=== PATIENT | male | born 1965 | race Caucasian/White ===

== ENCOUNTER → 2018-01-19 | Outpatient (CLI) | payer MEDICARE ==
[~2018-01-19] VITALS: Ht 167.6 cm; Wt 80.7 kg
[~2018-01-19] MED LIST: ACET325T38 PO; ACETAMINOPHEN 325 MG TABLET/CAPLET (TYLENOL) PO PRN; BACL10TA; BUPR150T7 PO; CELE-63 PO; CLON1TAB3 PO; CYAN500T2 PO; GABA-490 PO; IBUP-30 PO; IRON DEXTRAN IM ONE; IRON DEXTRAN INJECTION 975 MG in NS (IVPB) 250 ML IM ONE; LEVO200T6 PO; LIOT5TAB3 PO; MELO-195 PO; METH4TAB10; METH5TAB PO; METH750T3 PO; MINO50CA2 PO; MORP-34 PO; MORP15TA PO; MORP15TA8 PO; MORP30TA; MULT-228 PO; NS IM ONE; OXYM15TA7; SERT100T PO; TIAG4TAB PO; TIZA4TAB55 PO; TRAZ-144 PO; TRAZ-28 PO; [UNRECOGNIZED DRUG - OTHER] IM ONE; diphenhydrAMINE 50 MG/ML INJ (BENADRYL) IV PRN; methylPREDNISolone 125 MG (Solu-MEDROL) VIAL IV PRN
[2018-01-19 13:40] VITALS: BP 120/86
[2018-01-19 15:15] VITALS: BP 120/86
== END ==
LOC: SDC 12:30 → EDSTATUS 12:39
PROVIDERS: ATTEND Family Medicine
DX: D50.9 Iron deficiency anemia, unspecified (principal)
CPT/HCPCS: 96365

== ENCOUNTER → 2018-02-22 | Outpatient (CLI) | payer MEDICARE ==
[~2018-02-22] MED LIST changes: -ACETAMINOPHEN 325 MG TABLET/CAPLET (TYLENOL) PO PRN; -IRON DEXTRAN IM ONE; -IRON DEXTRAN INJECTION 975 MG in NS (IVPB) 250 ML IM ONE; -NS IM ONE; -[UNRECOGNIZED DRUG - OTHER] IM ONE; -diphenhydrAMINE 50 MG/ML INJ (BENADRYL) IV PRN; -methylPREDNISolone 125 MG (Solu-MEDROL) VIAL IV PRN
--- NOTE | 2018-02-22 09:06 | Diagnostic Imaging Report ---
INDICATION: Elevated liver enzymes. FINDINGS: The liver is normal in size at 17 cm. There is homogeneous echotexture. No discrete liver mass is identified. The gallbladder is surgically absent. No definite biliary duct dilatation is seen. The pancreas is obscured. Right kidney is unremarkable. There is no ascites. IMPRESSION: Status post cholecystectomy. No significant abnormality is detected. Dictated by: Dictated on workstation # [id number]
[2018-02-23 07:40] LABS: HEPATITIS C ANTIBODY C Non-Reactive (Non-Reactive)
== END ==
LOC: RAD 07:52
PROVIDERS: ATTEND Nurse Practitioner Family
DX: R94.5 Abnormal results of liver function studies (principal); Z90.49 Acquired absence of other specified parts of digestive tract; F10.11 Alcohol abuse, in remission
CPT/HCPCS: 36415; 76705; 80074

== ENCOUNTER 2018-03-31 20:11 | Emergency (ER) | payer MEDICARE ==
[~2018-03-31] VITALS: Ht 167.6 cm; Wt 98.4 kg
[2018-03-31] MEDS ORDERED: TIZA4TAB3 (20:49)
[2018-03-31] MEDS ORDERED: LEVO100T7 (20:49)
[2018-03-31] MEDS ORDERED: MIRT15TA6 (20:49)
[2018-03-31] MEDS ORDERED: DICL75TA2 (20:49)
[2018-03-31] MEDS ORDERED: OXYM5TAB (20:49)
[2018-03-31] MEDS ORDERED: LEVO88TA54 (20:49)
[2018-03-31] MEDS ORDERED: PANT40TA3 (20:49)
[2018-03-31] MEDS ORDERED: LACTATED RINGERS 1,000 ML IV ONE (21:10)
[2018-03-31] MEDS ORDERED: PANTOPRAZOLE 40 MG/10 ML (PROTONIX) VIAL IV ONE (21:15)
[2018-03-31] MEDS ORDERED: ONDANSETRON 4 MG/2 ML (SDV) Z0FRAN IVP ONE (21:15)
[2018-03-31 21:44] LABS: BASOPHILS % (AUTO) 1 % (0-10); EOSINOPHILS # (AUTO) 0.1 10^3/uL (0.0-0.3); EOSINOPHILS % (AUTO) 1 % (0-10); HEMATOCRIT 41 % (40-54); HEMOGLOBIN 14.6 G/DL (13.3-17.7); LYMPHOCYTES # (AUTO) 1.6 X 10^3 (1.0-4.0); LYMPHOCYTES % (AUTO) 27 % (12-44); MEAN CORPUSCULAR HEMOGLOBIN 29 PG (25-34); MEAN CORPUSCULAR HGB CONC 36 G/DL (32-36); MEAN CORPUSCULAR VOLUME 80 FL (80-99); MEAN PLATELET VOLUME 8.5 FL (7.4-10.4); MONOCYTES # (AUTO) 1.2 X 10^3 (0.0-1.0); MONOCYTES % (AUTO) 20 % (0-12); NEUTROPHILS # (AUTO) 3.1 X 10^3 (1.8-7.8); NEUTROPHILS % (AUTO) 52 % (42-75); PLATELET COUNT 352 10^3/uL (130-400); RED BLOOD COUNT 5.11 10^6/uL (4.35-5.85); RED CELL DISTRIBUTION WIDTH 15.2 % (10.0-14.5)
[2018-03-31 22:02] LABS: BAND NEUTROPHILS 10 %; BASOPHILS % (MANUAL) 1 %; EOSINOPHILS % (MANUAL) 0 %; LYMPHOCYTES % (MANUAL) 26 %; MONOCYTES % (MANUAL) 17 %; NEUTROPHILS % (MANUAL) 46 %; RBC MORPH NORMAL
[2018-03-31 22:07] LABS: ALANINE AMINOTRANSFERASE 19 U/L (0-55); ALBUMIN 4.3 GM/DL (3.2-4.5); ALKALINE PHOSPHATASE 76 U/L (40-136); AMYLASE 65 U/L (25-125); BILIRUBIN,TOTAL 0.3 MG/DL (0.1-1.0); BUN/CREATININE RATIO 8; CALCIUM 9.1 MG/DL (8.5-10.1); CARBON DIOXIDE 18 MMOL/L (21-32); CHLORIDE 105 MMOL/L (98-107); CREATININE SERUM 1.07 MG/DL (0.60-1.30); GFR ESTIMATED > 60; GLUCOSE 97 MG/DL (70-105); LIPASE 30 U/L (8-78); MAGNESIUM 2.1 MG/DL (1.8-2.4); POTASSIUM 3.5 MMOL/L (3.6-5.0); SODIUM 137 MMOL/L (135-145); TOTAL PROTEIN 7.5 GM/DL (6.4-8.2)
[2018-03-31 22:22] LABS: BILIRUBIN,URINE NEGATIVE (NEGATIVE); CLARITY,URINE CLEAR; COLOR,URINE YELLOW; GLUCOSE, URINE (UA) NEGATIVE (NEGATIVE); KETONES,URINE 2+ (NEGATIVE); LEUKOCYTE ESTERASE ,URINE NEGATIVE (NEGATIVE); NITRITE,URINE NEGATIVE (NEGATIVE); PH,URINE 6 (5-9); PROTEIN,URINE 1+ (NEGATIVE); UROBILINOGEN,URINE NORMAL (NORMAL)
[2018-03-31 22:29] LABS: BACTERIA,URINE NEGATIVE /HPF; SQUAMOUS EPITHELIAL CELL,UR 0-2 /HPF; WBC,URINE RARE /HPF
[2018-03-31 22:30] VITALS: BP 109/71
[2018-04-01] MEDS ORDERED: LACT1CAP8 PO (00:17)
--- NOTE | 2018-04-01 00:17 | ED GI ---
General Chief Complaint: Abdominal/GI Problems Stated Complaint: N/V/D WITH FEVER Nursing Triage Note: bloody stools Sepsis Screen: No Definite Risk Source of Information: Patient, Spouse Exam Limitations: No Limitations History of Present Illness Date Seen by Provider: March 31, 2018 Time Seen by Provider: 20:55 Initial Comments PT ARRIVES VIA POV C/O DIARRHEA X 1 WEEK HAS HAD OVER 12 STOOLS TODAY, UNSURE HOW MANY, BUT HAS HAD AT LEAST 6 STOOLS IN THE LAST HOUR STATES THE FIRST FEW DAYS HIS STOOLS WERE BLACK AND TARRY, THEN TURNED GREEN AND NOW ARE BROWN LIQUID HAD FEVER UP TO 102.7 ON MONDAY AND MONDAY, NONE SINCE THEN NO ABDOMINAL PAIN, BUT HAS HAD ALOT OF ACID REFLUX--MOSTLY IN THE MORNINGS. NO ACTUAL VOMITING THINKS HE HAS HAD DECREASED URINE OUTPUT, BUT STATES HE THINKS HE URINATES EVERY TIME HE HAS A BM, AND HAS VOIDED SEPARATELY WITHOUT BM AT LEAST 5 TIMES TODAY. HAD DECREASED APPETITE DURING THE WEEK BUT TODAY HAS EATEN ALOT MORE--ATE A BURRITO, BEANS, RICE, AND HAS DRANK AT LEAST 2 LITERS OF POP, PLUS COFFEE AND TEA NO KNOWN SICK CONTACTS OR SUSPICIOUS FOODS SEEN AT DR. GREENE'S OFFICE BY GAS METER INSTALLER HELPER ON 03/28 AND WAS GIVEN RX FOR CARAFATE AND PROTONIX. PCP: DR. GREENE Allergies and Home Medications Allergies Coded Allergies: Penicillins (Unverified Allergy, Severe, RECEIVED CEPHLASPORINS, 07/24/15) reaction as a child, not sure was told likely could from [facility] Home Medications Bupropion HCl 150 Mg Tab.er.24h, 150 MG PO DAILY, (Reported) Cyanocobalamin (Vitamin B-12) 500 Mcg Tablet, 500 MCG PO DAILY, (Reported) Ibuprofen 200 Mg Tablet, 1,000 MG PO DAILY, (Reported) TAKES 5 (200MG) TABLETS DAILY Lactobacillus Acidophilus 1 Each Capsule, 2 EACH PO QID Prescribed by: ERNESTINE VILCHIS on 04/01/18 0017 Liothyronine Sodium 5 Mcg Tablet, 5 MCG PO DAILY, (Reported) Multivitamin 1 Each Tab.chew, 3 TAB.CHEW PO DAILY, (Reported) Trazodone HCl 50 Mg Tablet, 50 MG PO HS, (Reported) Patient Home Medication List Home Medication List Reviewed: Yes Review of Systems Constitutional: see HPI; No dizziness; fever; No malaise, No weakness; weight gain (SIGNIFICANT WEIGHT GAIN IN THE LAST 12 MONTHS) EENTM: Other (CHRONIC DRY MOUTH) Respiratory: No Symptoms Reported Cardiovascular: No Symptoms Reported Gastrointestinal: See HPI, Diarrhea, Nausea, Poor Appetite, Poor Fluid Intake; Denies Rectal Bleeding, Denies Vomiting Genitourinary: See HPI Musculoskeletal: back pain (CHRONIC) Skin: no symptoms reported Psychiatric/Neurological: No Symptoms Reported Endocrine: No Symptoms Reported Hematologic/Lymphatic: No Symptoms Reported Past Stzflpv-Mhhxaf-Ctnxbu Hx Patient Social History Alcohol Use: Denies Use Recreational Drug Use: Yes (THC) Drug of Choice: cannibus Smoking Status: Current Everyday Smoker Type Used: Cigarettes, Smokeless Tobacco 2nd Hand Smoke Exposure: No Recent Foreign Travel: No Contact w/Someone Who Travel: No Recent Infectious Disease Expo: No Recent Hopitalizations: No Immunizations Up To Date Tetanus Booster (TDap): Less than 5yrs Seasonal Allergies Seasonal Allergies: No Past Medical History Surgeries: Yes (GASTRIC BYPASS, 2 LUMBAR SURGERIES; RIGHT HIP FX/ ORIF; COLONOSCOPY 09/2014) Abdominal, Gallbladder, Orthopedic Respiratory: No Cardiac: No Neurological: No Reproductive Disorders: No Genitourinary: No Gastrointestinal: Yes ( HAD NORMAL COLONOSCOPY 09/[address] HORNE--HIS ONLY COLONOSCOPY; GASTRIC BYPASS) Gastroesophageal Reflux Musculoskeletal: Yes ("MY HIPS ARE BAD." CHRONIC GENERALIZED PAIN--NARCOTIC DEPENDENT; RIGHT HIP FX/ORIF ) Arthritis, Chronic Back Pain, Fractures Endocrine: Yes Hypothyroidsim HEENT: Yes (EDENTULOUS) Cancer: No Psychosocial: Yes Sleep Difficulties, Anxiety, Depression Integumentary: No Blood Disorders: Yes (ANEMIA) Family Medical History Colon cancer 19 FATHER Respiratory disorder 19 MOTHER Cancer, COPD, Hypertension Physical Exam Vital Signs Vital Signs - First Documented 03/31/18 20:35 Temp 97.6 Pulse 106 Resp 18 B/P (MAP) 103/68 (80) Pulse Ox 98 O2 Delivery Room Air Capillary Refill : Less Than 3 Seconds General Appearance: WD/WN, no apparent distress, other (REEKS OF CIGARETTES, TALKS NON-STOP AT GREAT LENGTH AND DIFFICULT TO KEEP ON SUBJECT. 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 as tested, no motor/sensory deficits, alert, normal mood/affect, oriented x 3 Skin: normal color, warm/dry Focused Exam Lactate Level 03/31/18 21:25: Lactic Acid Level 1.11 Lactic Acid Level Laboratory Tests Test 03/31/18 21:25 Lactic Acid Level 1.11 MMOL/L (0.50-2.00) Progress/Results/Core Measures Results/Orders Lab Results Laboratory Tests Test 03/31/18 21:25 03/31/18 22:14 Range/Units White Blood Count 6.0 4.3-11.0 10^3/uL Red Blood Count 5.11 4.35-5.85 10^6/uL Hemoglobin 14.6 13.3-17.7 G/DL Hematocrit 41 40-54 % Mean Corpuscular Volume 80 80-99 FL Mean Corpuscular Hemoglobin 29 25-34 PG Mean Corpuscular Hemoglobin Concent 36 32-36 G/DL Red Cell Distribution Width 15.2 H 10.0-14.5 % Platelet Count 352 130-400 10^3/uL Mean Platelet Volume 8.5 7.4-10.4 FL Neutrophils (%) (Auto) 52 42-75 % Lymphocytes (%) (Auto) 27 12-44 % Monocytes (%) (Auto) 20 H 0-12 % Eosinophils (%) (Auto) 1 0-10 % Basophils (%) (Auto) 1 0-10 % Neutrophils # (Auto) 3.1 1.8-7.8 X 10^3 Lymphocytes # (Auto) 1.6 1.0-4.0 X 10^3 Monocytes # (Auto) 1.2 H 0.0-1.0 X 10^3 Eosinophils # (Auto) 0.1 0.0-0.3 10^3/uL Basophils # (Auto) 0.0 0.0-0.1 10^3/uL Neutrophils % (Manual) 46 % Lymphocytes % (Manual) 26 % Monocytes % (Manual) 17 % Eosinophils % (Manual) 0 % Basophils % (Manual) 1 % Band Neutrophils 10 % Blood Morphology Comment NORMAL Sodium Level 137 135-145 MMOL/L Potassium Level 3.5 L 3.6-5.0 MMOL/L Chloride Level 105 98-107 MMOL/L Carbon Dioxide Level 18 L 21-32 MMOL/L Anion Gap 14 5-14 MMOL/L Blood Urea Nitrogen 9 7-18 MG/DL Creatinine 1.07 0.60-1.30 MG/DL Estimat Glomerular Filtration Rate > 60 BUN/Creatinine Ratio 8 Glucose Level 97 70-105 MG/DL Lactic Acid Level 1.11 0.50-2.00 MMOL/L Calcium Level 9.1 8.5-10.1 MG/DL Magnesium Level 2.1 1.8-2.4 MG/DL Total Bilirubin 0.3 0.1-1.0 MG/DL Aspartate Amino Transf (AST/SGOT) 15 5-34 U/L Alanine Aminotransferase (ALT/SGPT) 19 0-55 U/L Alkaline Phosphatase 76 40-136 U/L Total Protein 7.5 6.4-8.2 GM/DL Albumin 4.3 3.2-4.5 GM/DL Amylase Level 65 25-125 U/L Lipase 30 8-78 U/L Urine Color YELLOW Urine Clarity CLEAR Urine pH 6 5-9 Urine Specific [place] 1.015 L 1.016-1.022 Urine Protein 1+ H NEGATIVE Urine Glucose (UA) NEGATIVE NEGATIVE Urine Ketones 2+ H NEGATIVE Urine Nitrite NEGATIVE NEGATIVE Urine Bilirubin NEGATIVE NEGATIVE Urine Urobilinogen NORMAL NORMAL MG/DL Urine Leukocyte Esterase NEGATIVE NEGATIVE Urine RBC (Auto) NEGATIVE NEGATIVE Urine RBC NONE /HPF Urine WBC RARE /HPF Urine Squamous Epithelial Cells 0-2 /HPF Urine Crystals NONE /LPF Urine Bacteria NEGATIVE /HPF Urine Casts NONE /LPF Urine Mucus NEGATIVE /LPF Urine Culture Indicated NO My Orders Orders - ERNESTINE VILCHIS DO Saline Lock/Iv-Start (03/31/18 21:10) Ct Abdomen/Pelvis W (03/31/18 21:10) Amylase (03/31/18 21:10) Cbc With Automated Diff (03/31/18 21:10) Comprehensive Metabolic Panel (03/31/18 21:10) Lipase (03/31/18 21:10) Magnesium (03/31/18 21:10) Ua Culture If Indicated (03/31/18 21:10) Stool Culture (03/31/18 21:10) Fecal Wbc (03/31/18 21:10) Ondansetron Injection (Zofran Injectio (03/31/18 21:15) Saline Lock/Iv-Start (03/31/18 21:10) Lactated Ringers (Lr 1000 Ml Iv Solution (03/31/18 21:10) Pantoprazole Injection (Protonix Injecti (03/31/18 21:15) C Difficile Ag + Toxin A/B. (03/31/18 21:10) Isolation Central Supply Req (03/31/18 21:10) Lactic Acid Analyzer (03/31/18 21:10) Blood Culture (03/31/18 21:10) Manual Differential (03/31/18 21:25) Parasite Scrn Stool Giard Cryp (04/01/18 00:17) Parasite Complete Exam Stool (04/01/18 00:17) Medications Given in ED Current Medications Medications Dose Ordered Sig/Gregg Route Start Time Stop Time Status Last Admin Dose Admin Lactated Ringer's 1,000 ml @ 0 mls/hr Q0M ONCE IV 03/31/18 21:10 03/31/18 21:14 DC 03/31/18 21:36 0 MLS/HR Ondansetron HCl 4 mg ONCE ONCE IVP 03/31/18 21:15 03/31/18 21:16 DC 03/31/18 21:36 4 MG Pantoprazole 40 mg ONCE ONCE IV 03/31/18 21:15 03/31/18 21:16 DC 03/31/18 21:36 40 MG Vital Signs/I&O 03/31/18 03/31/18 04/01/18 20:35 22:30 00:25 Temp 97.6 97.9 Pulse 106 99 96 Resp 18 16 18 B/P (MAP) 103/68 (80) 109/71 (84) 119/82 (80) Pulse Ox 98 97 99 O2 Delivery Room Air Room Air Room Air 04/01/18 00:00 Intake Total 1000 ml Balance 1000 ml Blood Pressure Mean: 80 Progress Progress Note : Progress Note ESSENTIALLY ASYMPTOMATIC DURING ER STAY PT DID HAVE 1 SMALL LIQUID STOOL IN ER--SENT TO LAB FOR STOOL STUDIES. Diagnostic Imaging Comments CT ABDOMEN/PELVIS--LIQUID STOOL/AIR-FLUID LEVELS THROUGHOUT COLON, C/W DIARRHEA , SMALL MIDLINE VENTRAL HERNIA, PARTIALLY CONTAINING SEGMENT OF TRANSVERSE COLON AND SMALL BOWEL, NO INCARCERATION. ALSO A SMALL FAT-CONTAINING VENTRAL HERNIA, FATTY CHANGES IN LIVER--PER [facility] VIA FAX @ [phone] Reviewed: Reviewed by Me Departure Impression Primary Impression: Gastroenteritis Disposition: 01 HOME, SELF-CARE Condition: Stable Departure-Patient Inst. Referrals: SUDEEP GREENE MD (PCP/Family) Primary Care Physician Patient Instructions: [id number], Viral Gastroenteritis, Adult ( DC) Add. Discharge Instructions: CLEAR LIQUIDS--WATER, BROTH, JELLO, GATORADE BRATS DIET--BANANAS, RICE, APPLESAUCE, TOAST, SALTINES CONTINUE YOUR CURRENT MEDICATIONS PRESCRIBED FOLLOW UP WITH DR. GREENE NEXT WEEK FOR FURTHER CARE All discharge instructions reviewed with patient and/or family. Voiced understanding. Scripts Lactobacillus Acidophilus (Acidophilus) 1 Each Capsule 2 EACH PO QID, #80 CAP Prov: ERNESTINE VILCHIS DO 04/01/18 ERNSETINE VILCHIS DO April 01, 2018 00:17
[2018-04-01 00:25] VITALS: BP 119/82
--- NOTE | 2018-04-01 07:56 | Diagnostic Imaging Report ---
PROCEDURE: CT abdomen and pelvis with contrast. TECHNIQUE: Multiple contiguous axial images were obtained through the abdomen and pelvis after administration of intravenous contrast. INDICATION: Nausea, vomiting, diarrhea, fever, abdominal pain COMPARISON: None FINDINGS: The lung bases are clear. The heart is normal in size. There is no pericardial effusion. No focal liver lesions are seen. There is a focal area of hypodensity in the anterior right liver, likely focal fatty infiltration. Cholecystectomy clips are noted. Postsurgical clips are seen near the spleen, with no focal splenic lesion seen. There is mild fatty atrophy of the pancreas. The adrenal glands appear normal. The kidneys appear normal. There is a small hiatal hernia with sutures seen at the proximal stomach. There is a midline ventral hernia which contains a wall of colon and small bowel, with no evidence of strangulation or obstruction. A fat-containing midline ventral hernia is seen just above the umbilicus. There is a fluid-filled colon, consistent with history of diarrhea. No significant wall thickening is seen. The appendix is not seen. There is mild thickening of the urinary bladder wall. There is internal fixation of the proximal right femur, and posterior fusion of L4 and L5. No acute osseous abnormality is seen. IMPRESSION: 1. Fluid seen throughout the colon, consistent with history of diarrhea. 2. Midline ventral hernia containing a wall of large and small bowel. No evidence of strangulation or obstruction. 3. Mild thickening of the urinary bladder wall, please correlate with urinalysis to exclude infection. Dictated by: Dictated on workstation # [id number]
== END 2018-04-01 00:25 | disposition home or self-care (01) ==
LOC: EDUNIT# 20:11 → ER 20:14
DX: K52.9 Noninfective gastroenteritis and colitis, unspecified (principal); K21.9 Gastro-esophageal reflux disease without esophagitis; E03.9 Hypothyroidism, unspecified; F41.9 Anxiety disorder, unspecified; F32.9 Major depressive disorder, single episode, unspecified; D64.9 Anemia, unspecified; G47.9 Sleep disorder, unspecified; F12.90 Cannabis use, unspecified, uncomplicated; F17.210 Nicotine dependence, cigarettes, uncomplicated; Z87.81 Personal history of (healed) traumatic fracture; Z98.84 Bariatric surgery status; Z98.890 Other specified postprocedural states; Z88.0 Allergy status to penicillin
CPT/HCPCS: 36415; 74177; 80053; 81000; 82150; 83605; 83690; 83735; 85007; 85027; 87040; 87045; 87046; 87077; 87177; 87324; 87328; 87329; 87449; 89055; 96374; 96375

== ENCOUNTER 2018-08-09 20:47 | Outpatient (CLI) | payer MEDICARE ==
[~2018-08-09 20:47] MED LIST changes: +CLON1TAB13 PO; +DICL75TA2; +LACT1CAP8 PO; +LEVO100T7; +LEVO88TA54; +MINO50CA4 PO; +MIRT15TA6; +OXYM5TAB; +PANT40TA3; +TIZA4TAB3; +TRAZ-189 PO; -TRAZ-28 PO
== END 2018-08-10 05:10 | disposition home or self-care (01) ==
LOC: SLEEP 20:47
PROVIDERS: ATTEND Nurse Practitioner Family
DX: G47.33 Obstructive sleep apnea (adult) (pediatric) (principal); G47.10 Hypersomnia, unspecified
CPT/HCPCS: 95811

== ENCOUNTER → 2019-01-14 | Outpatient (CLI) | payer MEDICARE ==
--- NOTE | 2019-01-14 15:58 | Diagnostic Imaging Report ---
PROCEDURE: US Thyroid. TECHNIQUE: Multiple real-time grayscale images were obtained of the thyroid in various projections. INDICATION: Hypothyroidism. COMPARISON: None available. FINDINGS: The right thyroid lobe measures 4.4 x 1.6 x 1.4 cm. It demonstrates heterogeneous echogenicity without discrete nodule. The left thyroid lobe is poorly visualized and has a heterogeneous atrophic appearance where seen. Due to irregularity of the left thyroid lobe accurate measurements are unable to be obtained. The isthmus is not well seen. No soft tissue mass outside of thyroid appreciated. IMPRESSION: Heterogeneous and atrophic thyroid. If it will alter patient management, consider nuclear medicine thyroid scan to assess for thyroid uptake and functionality. Dictated by: Dictated on workstation # [id number]
== END ==
LOC: RAD 12:49
PROVIDERS: ATTEND Nurse Practitioner Family
DX: E03.4 Atrophy of thyroid (acquired) (principal)
CPT/HCPCS: 76536

== ENCOUNTER → 2019-01-18 | Outpatient (CLI) | payer MEDICARE | LOC: CARD 08:04 | PROVIDERS: ATTEND Internal Medicine Cardiovascular Disease | DX: R06.02 Shortness of breath (principal); R53.83 Other fatigue; G89.29 Other chronic pain; Z72.0 Tobacco use | CPT/HCPCS: 93225; 93226 ==

== ENCOUNTER → 2019-01-22 | Outpatient (CLI) | payer MEDICARE ==
[~2019-01-22] VITALS: Ht 167.6 cm; Wt 92.5 kg
[~2019-01-22] MED LIST changes: +CATHETER FLUSH 10 ML SYR IV PRN; +REGADENOSON 0.4 MG/5 ML SYR (LEXISCAN) IV ONE
[2019-01-22 09:07] VITALS: BP 135/94
[2019-01-22 09:09] VITALS: BP 153/79
--- NOTE | 2019-01-22 18:20 | STRESS TEST ---
DATE OF SERVICE: 01/22/2019 RESTING AND POST REGADENOSON TECHNETIUM-99M TETROFOSMIN SPECT CT IMAGING ORDERING PHYSICIAN: Dr. Spring. PRIMARY PHYSICIAN: Dr. Jacobo. CLINICAL DIAGNOSES: Shortness of breath, tiredness. Baseline images were carried out after injection of 10.73 mCi of technetium-99m Tetrofosmin. This was followed by 0.4 mg regadenoson and 30.3 mCi of technetium-99m Tetrofosmin for stress imaging. The electrocardiogram showed sinus rhythm at baseline. The electrocardiogram did not change significantly with the regadenoson infusion. The patient noted some flushing and clamminess following regadenoson infusion, which resolved in a few minutes. Overall, the patient tolerated the procedure well. Review of images at rest and following stress does not indicate any significant perfusion defects consistent with significant myocardial ischemia or infarction. Gated images show normal global left ventricular systolic function and normal regional wall motion. Left ventricular ejection fraction is calculated to be 56%. Left ventricular end diastolic volume is 80 mL. TID is absent (1.11). CONCLUSIONS: 1. No evidence of any significant myocardial ischemia or infarction on this study. 2. Normal regional wall motion. 3. Normal global left ventricular systolic function with a calculated ejection fraction of 56%. Job ID: [id number] DocumentID: [id number] Dictated Date: 01/22/2019 12:58:29 Stock Clerk Date: 01/22/2019 15:28:44 Dictated By: TAN SPRING MD, MA, FACP, FACC,
== END ==
LOC: CARD 07:18
PROVIDERS: ATTEND Internal Medicine Cardiovascular Disease
DX: R06.02 Shortness of breath (principal); R53.83 Other fatigue; M54.9 Dorsalgia, unspecified; F17.220 Nicotine dependence, chewing tobacco, uncomplicated
CPT/HCPCS: 78452; 93017

== ENCOUNTER → 2019-03-05 | Outpatient (CLI) | payer MEDICARE ==
[~2019-03-05] MED LIST changes: -CATHETER FLUSH 10 ML SYR IV PRN; -REGADENOSON 0.4 MG/5 ML SYR (LEXISCAN) IV ONE
--- NOTE | 2019-03-06 17:49 | Diagnostic Imaging Report ---
INDICATION: Hypothyroidism. FINDINGS: Patient ingested 200 ?Ci of I-123 with 4-hour uptake calculated to be 2.9%. 24-hour uptake is calculated to be 3.7%. Scintigraphic imaging was also performed which reveals asymmetric prominence of the right lobe. IMPRESSION: Low-level thyroid uptake indicates hypothyroidism. There is asymmetry with prominence of the right lobe of the thyroid gland. Possibility of cold nodule in the upper pole of the left lobe cannot be excluded. This was not well visualized on recent thyroid ultrasound of 01/14/2019 and consideration could be given to short-term followup. Dictated by: Dictated on workstation # [id number]
== END ==
LOC: CARD 01-29 11:24
PROVIDERS: ATTEND Nurse Practitioner Family
DX: E03.9 Hypothyroidism, unspecified (principal)
CPT/HCPCS: 78014

== ENCOUNTER 2019-11-10 18:05 | Emergency (ER) | payer MEDICARE ==
[~2019-11-10] VITALS: Ht 167 cm; Wt 99.7 kg
[~2019-11-10 18:05] MED LIST changes: -CYAN500T2 PO; +CYAN500T62 PO; +LIOT5TAB PO; -TIZA4TAB3; +TIZA4TAB4; -TRAZ-189 PO; +TRAZ-222 PO
--- NOTE | 2019-11-10 18:23 | ED Fall/Injury ---
General Chief Complaint: Trauma-Non Activation Stated Complaint: FALL/BACK PAIN Source: patient, spouse Exam Limitations: no limitations History of Present Illness Date Seen by Provider: Nov 10, 2019 Time Seen by Provider: 18:08 Initial Comments Patient reports the ER with his spouse by private conveyance with chief complaint that about noon, 6 hours ago he experienced a fall down 4 steps backwards onto his middle back. He has chronic low back pain from 2 "failed back surgeries." He's not having any numbness tingling dysuria, incontinence or urinary hesitancy. He's not having any saddle anesthesia. He routinely takes 30 mg of on acting morphine twice a day as well as oxymorphone every 6 hours as needed which he took already. He also took 2 Aleve in addition to his routine diclofenac. He is having significant pain and debility. He took some baclofen that he has for when necessary back pain/spasm. He does wants to make sure he didn't break anything. He does not take blood thinners and denies striking his head or loss of consciousness. Allergies and Home Medications Allergies Coded Allergies: Penicillins (Unverified Allergy, Severe, RECEIVED CEPHALOSPORINS, 01/22/19) reaction as a child, not sure was told likely could from n Home Medications Bupropion HCl 150 Mg Tab.er.24h, 150 MG PO DAILY, (Reported) Cyanocobalamin (Vitamin B-12) 500 Mcg Tablet, 500 MCG PO DAILY, (Reported) Ibuprofen 200 Mg Tablet, 1,000 MG PO DAILY, (Reported) TAKES 5 (200MG) TABLETS DAILY Lactobacillus Acidophilus 1 Each Capsule, 2 EACH PO QID Prescribed by: ERNESTINE VILCHIS on 04/01/18 0017 Liothyronine Sodium 5 Mcg Tablet, 5 MCG PO DAILY, (Reported) Multivitamin 1 Each Tab.chew, 3 TAB.CHEW PO DAILY, (Reported) Trazodone HCl 50 Mg Tablet, 50 MG PO HS, (Reported) Patient Home Medication List Home Medication List Reviewed: Yes Review of Systems Review of Systems Constitutional: No chills, No diaphoresis Eyes: Denies Blindness, Denies Drainage Ears, Nose, Mouth, Throat: denies ear pain, denies nose pain Respiratory: No cough, No short of breath Cardiovascular: No chest pain, No edema, No Hx of Intervention, No palpitations, No syncope Gastrointestinal: No abdominal pain, No constipation, No diarrhea, No nausea, No vomiting Genitourinary: No discharge, No dysuria, No incontinence Musculoskeletal: see HPI, back pain; No joint pain All Other Systems Reviewed Negative Unless Noted: Yes Past Ikyorbf-Kpqylc-Dmyclt Hx Patient Social History Alcohol Use: Denies Use Drug of Choice: cannibus Smoking Status: Former Smoker (chews tobacco only) Type Used: Cigarettes, Smokeless Tobacco 2nd Hand Smoke Exposure: No Recent Foreign Travel: No Contact w/Someone Who Travel: No Recent Hopitalizations: No Immunizations Up To Date Tetanus Booster (TDap): Less than 5yrs Seasonal Allergies Seasonal Allergies: No Past Medical History Surgeries: Yes (GASTRIC BYPASS, 2 LUMBAR SURGERIES; RIGHT HIP FX/ ORIF; COLONOSCOPY 09/2014) Abdominal, Gallbladder, Orthopedic Respiratory: No Cardiac: No Neurological: No Reproductive Disorders: No Genitourinary: No Gastrointestinal: Yes Gastroesophageal Reflux Musculoskeletal: Yes Arthritis, Chronic Back Pain, Fractures Endocrine: Yes Hypothyroidsim HEENT: Yes (EDENTULOUS) Cancer: No Psychosocial: Yes Sleep Difficulties, Anxiety, Depression Integumentary: No Blood Disorders: Yes (ANEMIA) Family Medical History Colon cancer 19 FATHER Respiratory disorder 19 MOTHER Cancer, COPD, Hypertension Physical Exam Vital Signs Vital Signs - First Documented Capillary Refill : Height, Weight, BMI Height: 5'6.00" Weight: 204lbs. 0.0oz. 92.181567dr; 32.9 BMI Method:Stated General Appearance: WD/WN, mild distress HEENT: PERRL/EOMI, pharynx normal Neck: full range of motion, supple, normal inspection Cardiovascular: normal peripheral pulses, regular rate, rhythm Respiratory: lungs clear, normal breath sounds, no respiratory distress, no accessory muscle use Peripheral Pulses: 2+ Radial Pulses (R), 2+ Radial Pulses (L) Gastrointestinal: normal bowel sounds, non tender, soft, no organomegaly Back: other (previous well-healed scars along his lumbar and thoracic spine. Tenderness midline thoracic spine T8 through T12. Tenderness along the lumbar spine.) Neurologic/Psychiatric: alert, normal mood/affect, oriented x 3 Skin: normal color, warm/dry Marleen Coma Score Best Eye Response: (4) Open Spontaneously Best Verbal Response: (5) Oriented Best Motor Response: (6) Obeys Commands Marleen Total: 15 Progress/Results/Core Measures Results/Orders My Orders Orders - CASTRO,RHONDA J Oxycodone/Acet 10/325mg Tablet (Percocet (11/10/19 18:30) Oxycodone/Apap 5/325mg Tablet (Percocet (11/10/19 18:31) Ct Thoracic/Lumbar Spine Wo (11/10/19 18:16) Ct Cervical Spine Wo (11/10/19 ) Oxycodone/Apap 5/325mg Tablet (Percocet (11/10/19 18:45) Medications Given in ED Current Medications Medications Dose Ordered Sig/Gregg Route Start Time Stop Time Status Last Admin Dose Admin Oxycodone/ Acetaminophen 2 tab ONCE ONCE PO 11/10/19 18:45 11/10/19 18:46 DC 11/10/19 18:41 2 TAB Vital Signs/I&O 11/10/19 11/10/19 18:12 18:12 Temp 36.5 36.6 Pulse 85 85 Resp 16 16 B/P (MAP) 148/98 (115) 148/98 (115) Pulse Ox 98 98 Progress Progress Note : Time: 18:21 Progress Note Planned to offer him some fentanyl and ketamine however he has declined any shots. We'll give him a tablet of oxycodone [address] imaging of his spine. He is okay with this plan. He is not having any disability or red flag signs but given his history of following 4 steps landing on his back and 2 different back surgeries then it would be prudent. Diagnostic Imaging Diagonstic Imaging: CT (without IV contrast) Plain Films/CT/US/NM/MRI: c-spine, other (thoracolumbar spine) Comments NAME: SOLEDAD COLLINS [facility] REC#: [id number] PT STATUS: REG ER : 1965 PHYSICIAN: RHONDA ERAZO MD ADMIT DATE: 11/10/19/ER Draft POSDate of Exam:11/10/19 CT CERVICAL SPINE WO PROCEDURE: CT cervical spine without contrast. TECHNIQUE: Multiple contiguous axial images were obtained through the cervical spine without the use of intravenous contrast. Sagittal and coronal reformations were then performed. Auto Exposure Controls were utilized during the CT exam to meet ALARA standards for radiation dose reduction. INDICATION: Fall with neck pain. COMPARISON: None FINDINGS: Alignment of the cervical spine appears normal. There are moderate degenerative changes at C6-C7. No acute fracture is seen. No bony fragments or hyperdense fluid collections are seen in the spinal canal. The soft tissues about the cervical spine demonstrate no acute abnormality. IMPRESSION: 1. Degenerative changes in the cervical spine with no acute fracture seen. Dictated on workstation # [id number] Dict: 11/10/191903 Trans: 11/10/191908 [facility] [id number] Interpreted by: JULIENNE PEREZ MD Electronically signed by: ASCKIET VIA [facility]. POS [place], [place] POS NAME: SOLEDAD COLLINS [facility] REC#: [id number] PT STATUS: REG ER : 1965 PHYSICIAN: RHONDA ERAZO MD ADMIT DATE: 11/10/19/ER Draft POSDate of Exam:11/10/19 CT THORACIC/LUMBAR SPINE WO PROCEDURE: CT thoracic and lumbar spine without contrast. TECHNIQUE: Multiple contiguous axial images were obtained through the thoracic and lumbar spine without the use of intravenous contrast. Sagittal and coronal reformations were then performed. INDICATION: Fall, back pain. COMPARISON: CT abdomen and pelvis from 03/31/2018. FINDINGS: There is subtle cortical irregularity along the superior endplate of the T5 vertebral body. No significant height loss is seen. There is no spondylolisthesis. There is posterior fusion at L4-L5 without hardware complication seen. No bony fragments or hyperdense fluid collections are seen in the spinal canal. There is mild spinal canal narrowing at L3-L4. No fracture is seen in the lumbar spine. Surrounding soft tissues are unremarkable. IMPRESSION: 1. Mild irregularity at the superior endplate of T5, could represent a subtle compression fracture. Please correlate with point tenderness, and if clinically indicated consider MRI for further evaluation. 2. Posterior fusion at L4-L5 without hardware complication or acute osseous abnormality seen in the lumbar spine. There is mild spinal canal narrowing at L3-L4. Dictated on workstation # [id number] Dict: 11/10/191905 Trans: 11/10/191912 [id number] Interpreted by: JULIENNE PEREZ MD Electronically signed by: Reviewed: Reviewed by Me Departure Impression Primary Impression: Thoracic compression fracture Qualified Codes: S22.050A - Wedge compression fracture of t5-T6 vertebra, initial encounter for closed fracture Disposition: 01 HOME, SELF-CARE Condition: Stable Departure-Patient Inst. Decision time for Depature: 19:19 Referrals: SUDEEP JACOBO MD (PCP/Family) Primary Care Physician Patient Instructions: Vertebral Compression Fracture (DC) Add. Discharge Instructions: Tomorrow morning call Dr. Jacobo request follow-up appointment and discuss physical therapy. Heating pads, topical creams such as icy hot, Biofreeze etc. Continue use your pain medications as prescribed. Return to work when able and stay active. Do not do anything that makes her pain worse. If you have numbness, inability to walk, loss of control of your bowel or bladder or other worrisome symptoms then you need to return to the ER immediately. All discharge instructions reviewed with patient and/or family. Voiced understanding. Work/School Note: Work Release Form Date Seen in the Emergency Department: Nov 10, 2019 Return to Work: Nov 18, 2019 Restrictions: Need Release from Doctor Other Restrictions Listed Below: No lifting over 15 pounds until cleared by physician. Restrictions: May return to work sooner if feeling better. RHONDA ERAZO Nov 10, 2019 18:22 POS
[2019-11-10] MEDS ORDERED: oxyCODONE/APAP 10/325MG (PERCOCET 10) TABLET PO ONE (18:30)
[2019-11-10] MEDS ORDERED: oxyCODONE/APAP 5/325MG (PERCOCET 5) TABLET ONE (18:31)
[2019-11-10] MEDS ORDERED: oxyCODONE/APAP 5/325MG (PERCOCET 5) TABLET PO ONE (18:45)
--- NOTE | 2019-11-10 19:09 | Diagnostic Imaging Report ---
PROCEDURE: CT cervical spine without contrast. TECHNIQUE: Multiple contiguous axial images were obtained through the cervical spine without the use of intravenous contrast. Sagittal and coronal reformations were then performed. Auto Exposure Controls were utilized during the CT exam to meet ALARA standards for radiation dose reduction. INDICATION: Fall with neck pain. COMPARISON: None FINDINGS: Alignment of the cervical spine appears normal. There are moderate degenerative changes at C6-C7. No acute fracture is seen. No bony fragments or hyperdense fluid collections are seen in the spinal canal. The soft tissues about the cervical spine demonstrate no acute abnormality. IMPRESSION: 1. Degenerative changes in the cervical spine with no acute fracture seen. Dictated by: Dictated on workstation # [id number]
--- NOTE | 2019-11-10 19:13 | Diagnostic Imaging Report ---
PROCEDURE: CT thoracic and lumbar spine without contrast. TECHNIQUE: Multiple contiguous axial images were obtained through the thoracic and lumbar spine without the use of intravenous contrast. Sagittal and coronal reformations were then performed. INDICATION: Fall, back pain. COMPARISON: CT abdomen and pelvis from 03/31/2018. FINDINGS: There is subtle cortical irregularity along the superior endplate of the T5 vertebral body. No significant height loss is seen. There is no spondylolisthesis. There is posterior fusion at L4-L5 without hardware complication seen. No bony fragments or hyperdense fluid collections are seen in the spinal canal. There is mild spinal canal narrowing at L3-L4. No fracture is seen in the lumbar spine. Surrounding soft tissues are unremarkable. IMPRESSION: 1. Mild irregularity at the superior endplate of T5, could represent a subtle compression fracture. Please correlate with point tenderness, and if clinically indicated consider MRI for further evaluation. 2. Posterior fusion at L4-L5 without hardware complication or acute osseous abnormality seen in the lumbar spine. There is mild spinal canal narrowing at L3-L4. Dictated by: Dictated on workstation # [id number]
[2019-11-10 19:30] VITALS: BP 148/98
== END 2019-11-10 19:30 | disposition home or self-care (01) ==
LOC: EDUNIT# 18:05 → ER 18:06
DX: S22.050A Wedge compression fracture of T5-T6 vertebra, initial encounter for closed fracture (principal); K21.9 Gastro-esophageal reflux disease without esophagitis; E03.9 Hypothyroidism, unspecified; F41.9 Anxiety disorder, unspecified; F32.9 Major depressive disorder, single episode, unspecified; D64.9 Anemia, unspecified; R40.2142 Coma scale, eyes open, spontaneous, at arrival to emergency department; R40.2252 Coma scale, best verbal response, oriented, at arrival to emergency department; R40.2362 Coma scale, best motor response, obeys commands, at arrival to emergency department; F17.220 Nicotine dependence, chewing tobacco, uncomplicated; Z88.0 Allergy status to penicillin; Z82.49 Family history of ischemic heart disease and other diseases of the circulatory system; Z80.0 Family history of malignant neoplasm of digestive organs; W10.9XXA Fall (on) (from) unspecified stairs and steps, initial encounter
CPT/HCPCS: 72125; 72128; 72131

== ENCOUNTER 2020-03-16 21:00 | Emergency (ER) | payer MEDICARE ==
[~2020-03-16] VITALS: Ht 167.7 cm; Wt 99.9 kg
[~2020-03-16 21:00] MED LIST changes: -LIOT5TAB PO; +LIOT5TAB10 PO; -MORP-34 PO; +MORP-69 PO; -TRAZ-222 PO; +TRZ50T PO
[2020-03-16 21:04] VITALS: BP 150/88
[2020-03-16] MEDS ORDERED: LIDOCAINE PF 2% 5 ML (XYLOCAINE) VIAL ONE (21:15)
[2020-03-16] MEDS ORDERED: LIDOCAINE 2% 20 ML (XYLOCAINE) VIAL INJ ONE (21:15)
[2020-03-16] MEDS ORDERED: TETANUS,DIPTH,PERTUSS P/F (BOOSTRIX) 0.5 ML VIAL IM ONE (21:15)
[2020-03-16] MEDS ORDERED: RX-TRIMETH/SULFA. 160-800 MG (BACTRIM DS) TAB PPK#2 PO STA (21:40)
[2020-03-16] MEDS ORDERED: MUPI22OI2 TP (21:44)
[2020-03-16] MEDS ORDERED: SULF1TAB35 PO (21:44)
--- NOTE | 2020-03-16 21:44 | ED Upper Extremity ---
General Chief Complaint: Foreign Body Stated Complaint: L HAND FISH HOOK IN THUMB Nursing Triage Note: Pt amb to triage with c/o treble hook stuck in L thumb. 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 Pt reports to attempted to pull it out with pliers but it was unsuccessful. Pt reports he is unaware when his last tetanus vaccine was. A&OX4. Nursing Sepsis Screen: No Definite Risk Source: patient History of Present Illness Date Seen by Provider: Mar 16, 2020 Time Seen by Provider: 21:15 Initial Comments PT ARRIVES VIA POV STATES HE WAS FISHING AND HE GOT A TREBLE FISH HOOK STUCK IN HIS LEFT THUMB OCCURRED JUST PRIOR TO ARRIVAL UNABLE TO REMOVE IT AT HOME LAST TETANUS VACCINE IS UNKNOWN PT TAKES MORPHINE EVERY DAY FOR CHRONIC BACK PAIN--PT STATES "IT DOESN'T WORK AT ALL" --STATES THAT HE DRINKS BEER TO TREAT HIS CHRONIC BACK PAIN . OF NOTE, PER MED RECONCILIATION, PT ALSO TAKES OXYMORPHONE IN ADDITION TO MORPHINE EVERY DAY, WELL BACLOFEN AND TIZANIDINE. ALSO TAKES TRAZADONE. HE IS ALSO ON DICLOFENAC. DRINKS HEAVILY EVERY DAY--CLAIMS HE HAS HAD "6 BEERS" TONIGHT. PCP: DR. GREENE Allergies and Home Medications Allergies Coded Allergies: Penicillins (Unverified Allergy, Severe, RECEIVED CEPHALOSPORINS, 01/22/19) reaction as a child, not sure was told likely could from [facility] Home Medications Bupropion HCl 150 Mg Tab.er.24h, 150 MG PO DAILY, (Reported) Cyanocobalamin (Vitamin B-12) 500 Mcg Tablet, 500 MCG PO DAILY, (Reported) Ibuprofen 200 Mg Tablet, 1,000 MG PO DAILY, (Reported) TAKES 5 (200MG) TABLETS DAILY Lactobacillus Acidophilus 1 Each Capsule, 2 EACH PO QID Prescribed by: ERNESTINE VILCHIS on 04/01/1816 Liothyronine Sodium 5 Mcg Tablet, 5 MCG PO DAILY, (Reported) Multivitamin 1 Each Tab.chew, 3 TAB.CHEW PO DAILY, (Reported) Mupirocin 22 Gm Oint...g., 22 GM TP BID Prescribed by: ERNESTINE VILCHIS on 03/16/202143 Sulfamethoxazole/Trimethoprim 1 Each Tablet, 1 EACH PO BID Prescribed by: ERNESTINE VILCHIS on 03/16/202143 Trazodone HCl 50 Mg Tablet, 50 MG PO HS, (Reported) Patient Home Medication List Home Medication List Reviewed: Yes Review of Systems Constitutional: no symptoms reported Musculoskeletal: see HPI Skin: see HPI Psychiatric/Neurological: No Symptoms Reported; Denies Numbness, Denies Paresthesia Past Eiqbqve-Lzvmiq-Cetzcw Hx Patient Social History Alcohol Use: Regular Use (HEAVY, DAILY USE) Recreational Drug Use: Yes (THC) Drug of Choice: THC Smoking Status: Never a Smoker (BUT CHEWS TOBACCO) Type Used: Smokeless Tobacco 2nd Hand Smoke Exposure: No Recent Foreign Travel: No Contact w/Someone Who Travel: No Recent Infectious Disease Expo: No Recent Hopitalizations: No Immunizations Up To Date Tetanus Booster (TDap): Less than 5yrs Seasonal Allergies Seasonal Allergies: No Past Medical History Surgeries: Yes (GASTRIC BYPASS, 2 LUMBAR SURGERIES; RIGHT HIP FX/ ORIF; COLONOSCOPY 09/2014) Abdominal, Gallbladder, Orthopedic Respiratory: No Cardiac: No Neurological: No Reproductive Disorders: No Genitourinary: No Gastrointestinal: Yes Gastroesophageal Reflux Musculoskeletal: Yes Arthritis, Chronic Back Pain, Fractures Endocrine: Yes Hypothyroidsim HEENT: Yes (EDENTULOUS) Cancer: No Psychosocial: Yes Sleep Difficulties, Anxiety, Depression Integumentary: No Blood Disorders: Yes (ANEMIA) Family Medical History Colon cancer 19 FATHER Respiratory disorder 19 MOTHER Cancer, COPD, Hypertension Physical Exam Vital Signs Vital Signs - First Documented 03/16/20 21:04 Temp 36.7 Pulse 79 Resp 18 B/P (MAP) 150/88 (108) Pulse Ox 98 O2 Delivery Room Air Capillary Refill : Less Than 3 Seconds Height, Weight, BMI Height: 5'6.00" Weight: 204lbs. 0.0oz. 92.905674ot; 35.00 BMI Method:Stated General Appearance: WD/WN, other (PT IS EXTREMELY DRAMATIC, AND UNCOOPERATIVE, MOANING AND WAILING. REEKS OF ALCOHOL. SPEECH IS CLEAR, GAIT STEADY) Hand: Left (LEFT THUMB PAD WITH EMBEDDED TREBLE HOOK. DISTAL SENSATION/VASCULAR INTACT, MOTOR INTACT. ) Neurologic/Psychiatric: no motor/sensory deficits, alert Skin: normal color, warm/dry Procedures/Interventions I&D : Site: LEFT THUMB Progress AREA CLEANSED WITH BETASEPT INJECTED WITH 2% LIDOCAINE PLAIN HOOK REMOVED WITHOUT DIFFICULTY AREA CLEANSED AND DRESSED. PT TOLERATED POORLY. Progress/Results/Core Measures Results/Orders My Orders Orders - ERNESTINE VILCHIS DO Dipht,Pertuss(Acell),Tet Adult (Boostrix (03/16/20 21:15) Lidocaine 2% Injection 20 Ml (Xylocaine (03/16/20 21:15) Lidocaine 2% Pf 5 Ml (Xylocaine 2% Pf) (03/16/20 21:15) Rx-Trimeth/Sulfameth Ds Tab (Rx-Bactrim/ (03/16/20 21:40) Wound Dressing-Ed (03/16/20 21:44) Medications Given in ED Vital Signs/I&O Blood Pressure Mean: 108 Departure Impression Primary Impression: Fish hook injury of left thumb Additional Impression: Whphmofnax-hbwqcyllq-opkllsn (DPT) vaccination administered at current visit Disposition: HOME, SELF-CARE Condition: Stable Departure-Patient Inst. Referrals: SUDEEP GREENE MD (PCP/Family) Primary Care Physician Patient Instructions: Diphtheria and Tetanus Toxoids, and Acellular Pertussis Vaccine, Foreign Body in Skin (DC) Add. Discharge Instructions: SOAK WOUND IN WARM SOAPY WATER TWICE A DAY, APPLY ANTIBIOTIC OINTMENT AND FRESH DRESSING TWICE A DAY TYLENOL AND MOTRIN NEEDED FOR PAIN FOLLOW UP WITH YOUR DR IF SIGNS OF INFECTION All discharge instructions reviewed with patient and/or family. Voiced understanding. Scripts Mupirocin (Mupirocin) 22 Gm Oint...g. 22 GM TP BID, #1 TUBE Prov: ERNESTINE VILCHIS DO 03/16/20 Sulfamethoxazole/Trimethoprim (Bactrim Ds Tablet) 1 Each Tablet 1 EACH PO BID, #20 TAB Prov: ERNESTINE VILCHIS DO 03/16/20 ERNESTINE VILCHIS DO Mar 16, 2020 21:44
--- OUTSIDE RECORDS SUMMARY | 2020-03-17 14:17 | XMS REPORT | CCD ---
Author Author Thai Castillo Organization Sara Jacobo MD, [facility] Address [address] [place] [address] Phone Care Team Providers Care Test Borer Helper Name Role Phone PP Unavailable CCM Unavailable Summary Purpose Interface Exchange Insurance Providers Payer name Policy type / Coverage type Covered constitution party ID Effective Begin Date Effective End Date WPS Medicare Part B Medicare Part B [id number] Unknown [facility] icare Part B [id number] Un known Family history Father Diagnosis Age At Onset Colon cancer Unknown Social History Social History Element Codes Description Effective Dates Employment Unknown [employer] nt[employer] unemployed Before disability 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 On Disability Unknown Yes 09/27/2018 Marital status Unknown D ivorced 04/23/[address]: 975428550 Never smoker 04/23/[address]: 849839 Currently drinks alcohol occasionally drinks 04/23/2015 Allergies, Adverse Reactions, Alerts Substance Reaction Codes Entered Date Inactivated Date Status * NO KNOWN FOOD FRANCESCO RGIES Unknown 04/23/2015 No Inactive Date Active Penicillin Unknown 04/23/2015 No In active Date Active Past Medical History Illness Codes Condition Status Onset Date Resolved Date Chronic pain syndrome ICD-9: 338.4 ICD-10: G89.4 Active 10/13/2016 Unknown Hypothyroidism, unsp ecified ICD-9: 244.9 ICD-10: E03.9 Active 06/16/2016 Unknown Major depressive dis order, recurrent, moderate ICD-9: 296.32 ICD-10: F33.1 Active 10/13/2016 Unknown Encounter for screen ing for lipoid disorders ICD-9: V77.91 ICD-10: Z13.220 Active 01/07/2019 Unknown Obstructive sleep ap susan (adult) (pediatric) ICD-9: 327.23 ICD-10: G47.33 Active 02/27/2018 Unknown Vitamin B12 deficien cy anemia, unspecified ICD-9: 281.1 ICD-10: D51.9 Active 12/27/2018 Unknown Other fatigue ICD-9: 780.79 ICD-10: R53.83 Active 03/28/2018 Unknown Other obesity due to excess calories ICD-9: 278.00 ICD-10: E66.09 Active 02/27/2018 Unknown Encounter for genera l adult medical examination with abnormal findings ICD-9: V70.0 ICD-10: Z00.01 Active 09/17/2018 Unknown Encounter for screen ing for malignant neoplasm of prostate ICD-9: V76.44 ICD-10: Z12.5 Active 07/05/2018 Unknown Other male erectile dysfunction ICD-9: 607.84 ICD-10: N52.8 Active 02/15/2016 Unknown Diarrhea, unspecified ICD-9: 787.91 ICD-10: R19.7 Active 03/28/2018 Unknown Melena ICD-9: 578.1 ICD-10: K92.1 Active 03/28/2018 Unknown Other malaise ICD-9: 780.79 ICD-10: R53.81 Active 03/28/2018 Unknown Pain in unspecified joint ICD-9: 719.40 ICD-10: M25.50 Active 03/28/2018 Unknown Anemia, unspecified ICD- 9: 285.9 ICD-10: D64.9 Active 12/06/2017 Unknown Alcohol dependence, uncomplicated ICD-9: 303.90 ICD-10: F10.20 Active 09/15/2016 Unknown Pain in left knee ICD-9: 719.46 ICD-10: M25.562 Active 04/07/2017 Unknown Cellulitis of left u pper limb ICD-9: 682.3 ICD-10: L03.114 Active 11/16/2016 Unknown Superficial foreign body of left upper arm, initial encounter ICD-9: 912.6 ICD-10: S40.852A Active 11/16/2016 Unknown Psychophysiologic in somnia ICD-9: 780.52 ICD-10: F51.04 Active 09/15/2016 Unknown Pain in left shoulder ICD-9: 719.41 ICD-10: M25.512 Active 08/18/2016 Unknown Gastro-esophageal re flux disease without esophagitis ICD-9: 530.81 ICD-10: K21.9 Active 06/16/2016 Unknown Cervicalgia ICD-9: 723.1 ICD-10: M54.2 Active 02/15/2016 Unknown Lumbago with sciatic a, unspecified side ICD-9: 724.3 ICD-10: M54.40 Active 11/16/2015 Unknown Sciatica Unknown Active 08/28/2015 Unknow n Back pain, chronic ICD- 9: 724.5 Active 04/22/2015 Unknown Bilateral calf pain ICD- 9: 729.5 Active 05/27/2015 Unknown Depression ICD-9: 311 Active 04/22/2015 Unknow n Hypothyroid ICD-9: 244.9 Active 04/22/2015 Unknow n Depression Unknown Active 04/23/2015 Unknow n Hypothryroidism Unknown Active 04/23/2015 Unknow n Problems Condition Codes Effectiv e Dates Condition Status Chronic pain syndrome ICD-9: 338.4 ICD-10: G89.4 10/13/2016 Active Hypothyroidism, unsp ecified ICD-9: 244.9 ICD-10: E03.9 06/16/2016 Active Major depressive dis order, recurrent, moderate ICD-9: 296.32 ICD-10: F33.1 10/13/2016 Active Encounter for screen ing for lipoid disorders ICD-9: V77.91 ICD-10: Z13.220 01/07/2019 Active Obstructive sleep ap susan (adult) (pediatric) ICD-9: 327.23 ICD-10: G47.33 02/27/2018 Active Vitamin B12 deficien cy anemia, unspecified ICD-9: 281.1 ICD-10: D51.9 12/27/2018 Active Other fatigue ICD-9: 780.79 ICD-10: R53.83 03/28/2018 Active Other obesity due to excess calories ICD-9: 278.00 ICD-10: E66.09 02/27/2018 Active Encounter for genera l adult medical examination with abnormal findings ICD-9: V70.0 ICD-10: Z00.01 09/17/2018 Active Encounter for screen ing for malignant neoplasm of prostate ICD-9: V76.44 ICD-10: Z12.5 07/05/2018 Active Other male erectile dysfunction ICD-9: 607.84 ICD-10: N52.8 02/15/2016 Active Diarrhea, unspecified ICD-9: 787.91 ICD-10: R19.7 03/28/2018 Active Melena ICD-9: 578.1 ICD-10: K92.1 03/28/2018 Active Other malaise ICD-9: 780.79 ICD-10: R53.81 03/28/2018 Active Pain in unspecified joint ICD-9: 719.40 ICD-10: M25.50 03/28/2018 Active Anemia, unspecified ICD- 9: 285.9 ICD-10: D64.9 12/06/2017 Active Alcohol dependence, uncomplicated ICD-9: 303.90 ICD-10: F10.20 09/15/2016 Active Pain in left knee ICD-9: 719.46 ICD-10: M25.562 04/07/2017 Active Cellulitis of left u pper limb ICD-9: 682.3 ICD-10: L03.114 11/16/2016 Active Superficial foreign body of left upper arm, initial encounter ICD-9: 912.6 ICD-10: S40.852A 11/16/2016 Active Psychophysiologic in somnia ICD-9: 780.52 ICD-10: F51.04 09/15/2016 Active Pain in left shoulder ICD-9: 719.41 ICD-10: M25.512 08/18/2016 Active Gastro-esophageal re flux disease without esophagitis ICD-9: 530.81 ICD-10: K21.9 06/16/2016 Active Cervicalgia ICD-9: 723.1 ICD-10: M54.2 02/15/2016 Active Lumbago with sciatic a, unspecified side ICD-9: 724.3 ICD-10: M54.40 11/16/2015 Active Sciatica Unknown 08/28/2015 Active Back pain, chronic ICD- 9: 724.5 04/22/2015 Active Bilateral calf pain ICD- 9: 729.5 05/27/2015 Active Depression ICD-9: 311 04/22/2015 Active Hypothyroid ICD-9: 244.9 04/22/2015 Active Depression Unknown 04/23/2015 Active Hypothryroidism Unknown 04/23/2015 Active Medications Medication Codes Instruc tions Start Date Stop Date Sta tus Fill Instructions Provigil 100 mg tablet RxNorm: 983711 1 Tablet(s) PO daily 08/14/2019 10/12/2019 Active Remeron 15 mg tablet RxNorm: 547140 1 Tablet(s) PO QHS 07/25/2019 01/20/2020 Active levothyroxine 150 mc g tablet RxNorm: 271217 1 Tablet(s) PO daily 07/18/2019 No Stop Date Active Updated script morphine 30 mg table t, crush resistant, extended release RxNorm: 1665401 1 Tablet(s) PO BID 07/18/2019 09/15/2019 Active oxymorphone 5 mg tablet RxNorm: 728551 1 Tablet(s) PO Q6 PRN 07/18/2019 09/15/2019 Active Provigil 100 mg tablet RxNorm: 811578 1 Tablet(s) PO daily 07/18/2019 09/14/2019 Active Remeron 15 mg tablet RxNorm: 130985 1 Tablet(s) PO QPM TAKE ONE TABLET BY MO UT EVERY NIGHT AT BEDTIME 07/18/2019 10/15/2019 Active morphine 30 mg table t, crush resistant, extended release RxNorm: 9083005 1 Tablet(s) PO BID 07/05/2019 07/17/2019 Inactive doxycycline hyclate 100 mg tablet RxNorm: 6273809 1 Tablet(s) PO BID 06/21/2019 07/20/2019 Inactive Provigil 100 mg tablet RxNorm: 461753 1 Tablet(s) PO daily 06/12/2019 06/11/2019 Inactive Provigil 100 mg tablet RxNorm: 846656 1 Tablet(s) PO daily 06/12/2019 07/17/2019 Inactive baclofen 10 mg tablet RxNorm: 957811 TAKE ONE TABLET BY MOUTH THREE TIMES A D AY NEEDED 05/28/2019 09/24/2019 Active tizanidine 4 mg tablet RxNorm: 054107 TAKE ONE TABLET BY MOUTH THREE TIMES A D AY NEEDED 05/28/2019 09/24/2019 Active diclofenac sodium 75 mg tablet,delayed release RxNorm: 208288 TAKE ONE TABLET BY MO UTH TWICE A DAY 05/21/2019 10/17/2019 Active doxycycline hyclate 100 mg tablet RxNorm: 4803315 1 Tablet(s) PO BID 05/14/2019 05/23/2019 Inactive oxymorphone 5 mg tablet RxNorm: 346764 1 Tablet(s) PO Q6 PRN 05/14/2019 07/12/2019 Inactive morphine 30 mg table t, crush resistant, extended release RxNorm: 1852720 1 Tablet(s) PO BID 05/14/2019 06/12/2019 Inactive morphine 30 mg table t, crush resistant, extended release RxNorm: 6058905 1 Tablet(s) PO BID 05/07/2019 05/13/2019 Inactive trazodone 50 mg tablet RxNorm: 222108 1.5 Tablet(s) PO QHS TAKE ONE TABLET BY MOUTH EVERY NIGHT AT BEDTIME AND ONE-HALF TABLET BY MOUTH NEEDED 03/12/2019 06/09/2019 Inactive morphine 30 mg table t, crush resistant, extended release RxNorm: 1290617 1 Tablet(s) PO BID 03/12/2019 04/10/2019 Inactive levothyroxine 200 mc g tablet RxNorm: 225383 1 Tablet(s) PO daily TAKE ONE TABLET BY MOUTH DAILY 03/12/2019 07/17/2019 Inactive Updated script oxymorphone 5 mg tablet RxNorm: 321171 1 Tablet(s) PO Q6 PRN 03/12/2019 05/10/2019 Inactive doxycycline hyclate 100 mg tablet RxNorm: 9590777 1 Tablet(s) PO BID 03/12/2019 03/21/2019 Inactive morphine 30 mg table t, crush resistant, extended release RxNorm: 5195573 1 Tablet(s) PO BID 03/06/2019 03/11/2019 Inactive tizanidine 4 mg tablet RxNorm: 709012 TAKE ONE TABLET BY MOUTH THREE TIMES A D AY NEEDED 02/26/2019 05/26/2019 Inactive diclofenac sodium 75 mg tablet,delayed release RxNorm: 861128 TAKE ONE TABLET BY MO [facility] TWICE A DAY 02/18/2019 05/18/2019 Inactive Protonix 40 mg table t,delayed release RxNorm: 598469 TAKE ONE TABLET BY MO [facility] DAILY 02/06/2019 09/03/2019 Ac tive trazodone 50 mg tablet RxNorm: 302249 TAKE ONE TABLET BY MOUTH EVERY NIGHT AT BEDTIME AND ONE-HALF TABLET BY MOUTH NEEDED 01/14/2019 03/11/2019 Inactive oxymorphone 5 mg tablet RxNorm: 990973 1 Tablet(s) PO Q6 PRN 01/07/2019 03/07/2019 Inactive morphine 30 mg table t, crush resistant, extended release RxNorm: 3636805 1 Tablet(s) PO BID 01/07/2019 03/05/2019 Inactive doxycycline hyclate 100 mg tablet RxNorm: 4651829 1 Tablet(s) PO BID 01/01/2019 01/10/2019 Inactive cyanocobalamin (vit B-12) 1,000 mcg/mL injection solution RxNorm: 914722 1 Milliliter(s) Inj 12/27/2018 12/27/2018 Inactive baclofen 10 mg tablet RxNorm: 609077 TAKE ONE TABLET BY MOUTH THREE TIMES A D AY NEEDED 11/29/2018 03/28/2019 Inactive Request already responded t o by other means (e.g. phone or fax) baclofen 10 mg tablet RxNorm: 197838 Tablet(s) TAKE ONE TABLET BY MOUTH THREE TIMES A DAY NEEDED 11/28/2018 11/28/2018 Inactive doxycycline hyclate 100 mg tablet RxNorm: 2722598 1 Tablet(s) PO BID 11/14/2018 11/23/2018 Inactive trazodone 50 mg tablet RxNorm: 139477 TAKE ONE TABLET BY MOUTH EVERY NIGHT AT BEDTIME AND ONE-HALF TABLET BY MOUTH NEEDED 11/12/2018 12/21/2018 Inactive tizanidine 4 mg tablet RxNorm: 543207 TAKE ONE TABLET BY MOUTH THREE TIMES A D AY NEEDED 10/22/2018 02/18/2019 Inactive diclofenac sodium 75 mg tablet,delayed release RxNorm: 131564 TAKE ONE TABLET BY [facility] TWICE A DAY 10/15/2018 02/11/2019 Inactive Lasix 20 mg tablet RxNorm: 840074 1 Tablet(s) PO daily as needed 10/10/2018 11/08/2018 In active potassium chloride E R 10 mEq tablet,extended release RxNorm: 230128 1 Tablet(s) PO daily as needed to take with lasix for inceased edema 10/10/2018 11/08/2018 Inactive potassium chloride E R 10 mEq tablet,extended release RxNorm: 981455 1 Tablet(s) PO daily as needed to take with lasix for inceased edema 10/10/2018 10/09/2018 Inactive Lasix 20 mg tablet RxNorm: 369171 1 Tablet(s) PO daily as needed 10/10/2018 10/09/2018 In active doxycycline hyclate 100 mg tablet RxNorm: 0124243 1 Tablet(s) PO BID 09/27/2018 10/10/2018 Inactive Remeron 15 mg tablet RxNorm: 329947 1.5 Tablet(s) PO QPM TAKE ONE TABLET BY MOUTH EVERY NIGHT AT BEDTIME 09/18/2018 12/16/2018 Inactive baclofen 10 mg tablet RxNorm: 044776 TAKE ONE TABLET BY MOUTH THREE TIMES A D AY NEEDED 09/12/2018 11/10/2018 Inactive Remeron 15 mg tablet RxNorm: 062051 1.5 Tablet(s) PO QPM TAKE ONE TABLET BY MOUTH EVERY NIGHT AT BEDTIME 09/03/2018 09/17/2018 Inactive oxymorphone 5 mg tablet RxNorm: 527507 1 Tablet(s) PO Q6 PRN 09/03/2018 11/01/2018 Inactive morphine 30 mg table t, crush resistant, extended release RxNorm: 1649203 1 Tablet(s) PO BID 09/03/2018 11/01/2018 Inactive trazodone 50 mg tablet RxNorm: 521403 TAKE ONE TABLET BY MOUTH EVERY NIGHT AT BEDTIME AND ONE-HALF TABLET BY MOUTH NEEDED 09/03/2018 10/12/2018 Inactive tizanidine 4 mg tablet RxNorm: 728115 TAKE ONE TABLET BY MOUTH THREE TIMES A D AY NEEDED 08/20/2018 10/18/2018 Inactive Protonix 40 mg table t,delayed release RxNorm: 260539 TAKE ONE TABLET BY MO UTH DAILY 08/10/2018 02/05/2019 In active Carafate 1 gram tablet RxNorm: 364520 TAKE ONE TABLET BY MOUTH BEFORE MEALS AN D AT BEDTIME NEEDED FOR HEARTBURN 07/31/2018 12/27/2018 Inactive Protonix 40 mg table t,delayed release RxNorm: 568289 1 Tablet(s) BID 07/24/2018 07/23/2018 Inactive Protonix 40 mg table t,delayed release RxNorm: 978968 1 Tablet(s) daily 07/24/2018 08/09/2018 In active liothyronine 5 mcg t ablet RxNorm: 450419 TAKE ONE TABLET BY MO UTH DAILY 07/19/2018 01/09/2019 In active baclofen 10 mg tablet RxNorm: 743413 TAKE ONE TABLET BY MOUTH THREE TIMES A D AY NEEDED 07/12/2018 09/09/2018 Inactive levothyroxine 175 mc g tablet RxNorm: 143874 1 Tablet(s) PO daily 07/11/2018 03/11/2019 Inactive Vitamin D2 50,000 un it capsule RxNorm: 0865821 1 Capsule(s) PO QW 07/11/2018 10/02/2018 Inactive trazodone 50 mg tablet RxNorm: 230966 TAKE ONE TABLET BY MOUTH EVERY NIGHT AT BEDTIME AND ONE-HALF TABLET BY MOUTH NEEDED 07/11/2018 08/19/2018 Inactive Vitamin D2 50,000 un it capsule RxNorm: 9100010 1 Capsule(s) PO QW 07/11/2018 07/10/2018 Inactive morphine 30 mg table t, crush resistant, extended release RxNorm: 7267163 1 Tablet(s) PO BID 07/05/2018 09/02/2018 Inactive oxymorphone 5 mg tablet RxNorm: 027435 1 Tablet(s) PO Q6 PRN 07/05/2018 09/02/2018 Inactive Remeron 15 mg tablet RxNorm: 757914 TAKE ONE TABLET BY MOUTH EVERY NIGHT AT BEDTIME 06/27/2018 09/02/2018 Inactive bupropion HCl XL 300 mg 24 hr tablet, extended release RxNorm: 414613 TAKE ONE TABLET BY MOUTH DAILY 06/27/2018 07/17/2019 Inactive tizanidine 4 mg tablet RxNorm: 965923 TAKE ONE TABLET BY MOUTH THREE TIMES A D AY NEEDED 06/20/2018 08/18/2018 Inactive doxycycline hyclate 100 mg tablet RxNorm: 9019676 1 Tablet(s) PO BID 06/18/2018 07/01/2018 Inactive Protonix 40 mg table t,delayed release RxNorm: 603512 TAKE ONE TABLET BY MO [facility] DAILY 06/11/2018 07/23/2018 In active doxycycline hyclate 100 mg tablet RxNorm: 2152069 1 Tablet(s) PO BID 05/22/2018 06/04/2018 Inactive baclofen 10 mg tablet RxNorm: 818143 TAKE ONE TABLET BY MOUTH THREE TIMES A D AY NEEDED 05/14/2018 07/11/2018 Inactive diclofenac sodium 75 mg tablet,delayed release RxNorm: 213993 TAKE ONE TABLET BY [facility] TWICE A DAY 05/07/2018 10/03/2018 Inactive oxymorphone 5 mg tablet RxNorm: 239906 1 Tablet(s) PO Q6 PRN 05/04/2018 07/02/2018 Inactive morphine 30 mg table t, crush resistant, extended release RxNorm: 7078325 1 Tablet(s) PO BID 05/04/2018 07/02/2018 Inactive doxycycline hyclate 100 mg tablet RxNorm: 386543 1 Tablet(s) PO BID 04/24/2018 04/23/2018 Inactive doxycycline hyclate 100 mg tablet RxNorm: 4534574 1 Tablet(s) PO BID 04/24/2018 05/03/2018 Inactive baclofen 10 mg tablet RxNorm: 936443 TAKE ONE TABLET BY MOUTH THREE TIMES A D AY NEEDED 04/13/2018 05/12/2018 Inactive trazodone 50 mg tablet RxNorm: 720249 TAKE ONE TABLET BY MOUTH EVERY NIGHT AT BEDTIME AND ONE-HALF TABLET BY MOUTH NEEDED 04/09/2018 06/07/2018 Inactive Questran 4 gram powd er for susp in a packet RxNorm: 279821 1 packet PO BID 04/06/2018 06/04/2018 In active Questran 4 gram powd er for susp in a packet RxNorm: 160785 1 packet PO BID 04/06/2018 04/05/2018 In active Carafate 1 gram tablet RxNorm: 014330 1 Tablet(s) PO AC & HS as needed for hea rtburn 03/28/2018 04/26/2018 Inactive baclofen 10 mg tablet RxNorm: 103609 TAKE ONE TABLET BY MOUTH THREE TIMES A D AY NEEDED 03/16/2018 04/12/2018 Inactive Protonix 40 mg table t,delayed release RxNorm: 912569 TAKE ONE TABLET BY [facility] DAILY 03/16/2018 06/10/2018 In active oxymorphone 5 mg tablet RxNorm: 479456 1 Tablet(s) PO Q6 PRN 02/27/2018 04/27/2018 Inactive morphine 30 mg table t, crush resistant, extended release RxNorm: 9011823 1 Tablet(s) PO BID 02/27/2018 04/27/2018 Inactive Belviq XR 20 mg tabl et,extended release RxNorm: 5626420 1 Tablet(s) PO daily 02/27/2018 01/06/2019 In active levothyroxine 100 mc g tablet RxNorm: 491944 1 Tablet(s) PO daily 02/27/2018 07/10/2018 Inactive take with 88mcg to = 188mcg daily levothyroxine 88 mcg tablet RxNorm: 671369 1 Tablet(s) PO daily 02/27/2018 07/10/2018 Inactive take with 100mcg to = 188mcg daily morphine 30 mg table t, crush resistant, extended release RxNorm: 7229532 1 Tablet(s) PO BID 02/14/2018 02/26/2018 Inactive levothyroxine 200 mc g tablet RxNorm: 354163 Tablet(s) TAKE ONE TA BLET BY MOUTH DAILY 01/18/2018 02/26/2018 Inactive Updated script baclofen 10 mg tablet RxNorm: 224073 Tablet(s) TAKE ONE TABLET BY MOUTH THREE TIMES A DAY NEEDED 01/15/2018 02/13/2018 Inactive morphine 30 mg table t, crush resistant, extended release RxNorm: 2225696 1 Tablet(s) PO BID 01/15/2018 02/13/2018 Inactive tizanidine 4 mg tablet RxNorm: 830824 TAKE ONE TABLET BY MOUTH THREE TIMES A D AY NEEDED 01/02/2018 04/01/2018 Inactive Request already responded t o by other means (e.g. phone or fax) bupropion HCl XL 300 mg 24 hr tablet, extended release RxNorm: 843383 TAKE ONE TABLET BY MOUTH DAILY 12/29/2017 06/26/2018 Inactive Tamiflu 75 mg capsule RxNorm: 674746 1 Capsule(s) PO BID 12/27/2017 12/31/2017 Inactive Tamiflu 75 mg capsule RxNorm: 200962 1 Capsule(s) PO BID 12/27/2017 12/26/2017 Inactive tizanidine 4 mg tablet RxNorm: 404707 1 Tablet(s) PO TID as needed 12/25/2017 01/01/2018 Inactive levothyroxine 175 mc g tablet RxNorm: 186844 1 Tablet(s) PO daily 12/14/2017 12/13/2017 Inactive levothyroxine 175 mc g tablet RxNorm: 499098 1 Tablet(s) PO daily 12/14/2017 01/17/2018 Inactive baclofen 10 mg tablet RxNorm: 661133 Tablet(s) TAKE ONE TABLET BY MOUTH THREE TIMES A DAY NEEDED 12/13/2017 01/11/2018 Inactive baclofen 10 mg tablet RxNorm: 957041 TAKE ONE TABLET BY MOUTH THREE TIMES A D AY NEEDED 12/13/2017 12/12/2017 Inactive morphine 30 mg table t, crush resistant, extended release RxNorm: 3657108 1 Tablet(s) PO BID 12/12/2017 01/14/2018 Inactive trazodone 50 mg tablet RxNorm: 573149 1/2 to 1 Tablet(s) QHS as needed 12/01/2017 03/30/2018 In active clonazepam 1 mg tablet RxNorm: 595613 1/2 Tablet(s) PO daily 12/01/2017 07/17/2019 Inactive Opana ER 15 mg table t, crush resistant, extended release RxNorm: 868742 1 Tablet(s) PO Q12H 12/01/2017 02/13/2018 Inactive oxymorphone 5 mg tablet RxNorm: 144814 1 Tablet(s) PO Q6 PRN 12/01/2017 02/26/2018 Inactive Remeron 15 mg tablet RxNorm: 000939 Tablet(s) TAKE ONE TABLET BY MOUTH EVERY NIGHT AT BEDTIME 12/01/2017 02/28/2018 Inactive trazodone 50 mg tablet RxNorm: 747218 1/2 Tablet(s) as needed 1 Tablet(s) PO Q HS 12/01/2017 11/30/2017 In active clonazepam 1 mg tablet RxNorm: 398949 1/2 Tablet(s) PO daily 11/30/2017 11/30/2017 Inactive Remeron 15 mg tablet RxNorm: 418935 TAKE ONE TABLET BY MOUTH EVERY NIGHT AT BEDTIME 11/29/2017 11/30/2017 Inactive levothyroxine 200 mc g tablet RxNorm: 275778 TAKE ONE TABLET BY MO UTH DAILY 11/15/2017 12/13/2017 In active baclofen 10 mg tablet RxNorm: 565314 TAKE ONE TABLET BY MOUTH THREE TIMES A D AY NEEDED 11/07/2017 12/06/2017 Inactive diclofenac sodium 75 mg tablet,delayed release RxNorm: 920617 1 Tablet(s) PO BID 11/07/2017 05/05/2018 In active liothyronine 5 mcg t ablet RxNorm: 977570 TAKE ONE TABLET BY MO [facility] DAILY 10/27/2017 07/18/2018 In active tizanidine 4 mg tablet RxNorm: 161313 1 Tablet(s) PO TID as needed 10/18/2017 12/16/2017 Inactive oxymorphone 5 mg tablet RxNorm: 140490 1 Tablet(s) PO Q6 PRN 09/29/2017 11/27/2017 Inactive morphine 30 mg table t, crush resistant, extended release RxNorm: 3636115 1 Tablet(s) PO BID 09/29/2017 11/28/2017 Inactive baclofen 10 mg tablet RxNorm: 673780 1 Tablet(s) PO TID as needed 09/11/2017 10/10/2017 Inactive baclofen 10 mg tablet RxNorm: 518657 1 Tablet(s) PO TID as needed 08/11/2017 09/09/2017 Inactive Opana ER 15 mg table t, crush resistant, extended release RxNorm: 250792 1 Tablet(s) PO Q12H 08/11/2017 09/28/2017 Inactive Remeron 15 mg tablet RxNorm: 366824 TAKE ONE TABLET BY MOUTH EVERY NIGHT AT BEDTIME 08/02/2017 10/30/2017 Inactive oxymorphone 5 mg tablet RxNorm: 347160 1 Tablet(s) PO Q6 PRN 08/02/2017 09/28/2017 Inactive Opana ER 5 mg tablet , crush resistant, extended release RxNorm: 420550 1 Tablet(s) PO Q6 PRN 08/01/2017 08/10/2017 Inactive Protonix 40 mg table t,delayed release RxNorm: 800297 TAKE ONE TABLET BY MO [facility] DAILY 06/26/2017 06/25/2017 In active Protonix 40 mg table t,delayed release RxNorm: 439901 TAKE ONE TABLET BY MO [facility] DAILY 06/26/2017 02/05/2019 In active bupropion HCl XL 300 mg 24 hr tablet, extended release RxNorm: 033462 TAKE ONE TABLET BY MOUTH DAILY 06/13/2017 12/09/2017 Inactive tizanidine 4 mg tablet RxNorm: 007999 1 Tablet(s) PO TID as needed 06/13/2017 06/12/2017 Inactive tizanidine 4 mg tablet RxNorm: 172637 1 Tablet(s) PO TID as needed 06/13/2017 09/10/2017 Inactive baclofen 10 mg tablet RxNorm: 992552 1 Tablet(s) PO TID as needed 06/13/2017 07/12/2017 Inactive Opana ER 15 mg table t, crush resistant, extended release RxNorm: 044072 1 Tablet(s) PO Q12H 06/09/2017 08/07/2017 Inactive Opana ER 5 mg tablet , crush resistant, extended release RxNorm: 142070 1 Tablet(s) PO Q6 PRN 06/09/2017 07/31/2017 Inactive diclofenac sodium 75 mg tablet,delayed release RxNorm: 792606 1 Tablet(s) PO BID 06/09/2017 09/06/2017 In active clonazepam 1 mg tablet RxNorm: 790274 1/2 Tablet(s) PO daily 05/24/2017 11/18/2017 Inactive bupropion HCl XL 300 mg 24 hr tablet, extended release RxNorm: 814177 TAKE ONE TABLET BY MOUTH DAILY 03/16/2017 06/12/2017 Inactive clonazepam 1 mg tablet RxNorm: 218630 1/2 Tablet(s) PO daily 02/22/2017 05/18/2017 Inactive Remeron 15 mg tablet RxNorm: 848921 TAKE ONE TABLET BY MOUTH EVERY NIGHT AT BEDTIME 02/06/2017 2017 Inactive Protonix 40 mg table t,delayed release RxNorm: 909437 TAKE ONE TABLET BY MO [facility] DAILY 01/26/2017 06/24/2017 In active mupirocin 2 % topica l ointment RxNorm: 615414 1 Application TOP BID 01/12/2017 01/18/2017 Inactive Bactrim DS 800 mg-16 0 mg tablet RxNorm: 410768 1 Tablet(s) PO BID 11/17/2016 11/23/2016 Inactive mupirocin 2 % topica l ointment RxNorm: 116484 1 Application TOP BID 11/10/2016 11/16/2016 Inactive Bactrim DS 800 mg-16 0 mg tablet RxNorm: 352749 1 Tablet(s) PO BID 11/10/2016 11/16/2016 Inactive bupropion HCl XL 300 mg 24 hr tablet, extended release RxNorm: 654489 TAKE ONE TABLET BY MOUTH DAILY 11/07/2016 03/06/2017 Inactive liothyronine 5 mcg t ablet RxNorm: 784186 1 Tablet(s) PO daily 11/01/2016 10/26/2017 Inactive levothyroxine 200 mc g tablet RxNorm: 824788 1 Tablet(s) PO daily 10/04/2016 09/28/2017 Inactive clonazepam 1 mg tablet RxNorm: 112563 1/2 Tablet(s) PO daily 09/21/2016 03/18/2017 Inactive clonazepam 1 mg tablet RxNorm: 690451 1/2 Tablet(s) PO daily 09/16/2016 09/20/2016 Inactive Abilify 2 mg tablet RxNorm: 942316 1 Tablet(s) PO daily 09/16/2016 10/13/2016 Inactive trazodone 50 mg tablet RxNorm: 705567 1/2 Tablet(s) as needed 1 Tablet(s) PO Q HS 09/16/2016 01/13/2017 In active morphine 15 mg immed iate release tablet RxNorm: 172395 1 Tablet(s) PO Q6 PRN 09/16/2016 04/06/2017 In active baclofen 10 mg tablet RxNorm: 311892 1 Tablet(s) PO TID as needed 09/16/2016 06/12/2017 Inactive MS Contin 30 mg tabl et,extended release RxNorm: 411651 1 Tablet(s) PO Q12H 09/16/2016 04/06/2017 In active Remeron 15 mg tablet RxNorm: 226172 1 Tablet(s) PO QHS 08/19/2016 09/15/2016 Inactive levothyroxine 200 mc g tablet RxNorm: 284290 1 Tablet(s) PO daily 08/11/2016 10/03/2016 Inactive bupropion HCl XL 300 mg 24 hr tablet, extended release RxNorm: 611886 TAKE ONE TABLET BY MOUTH DAILY 08/11/2016 11/06/2016 Inactive Protonix 40 mg table t,delayed release RxNorm: 952620 1 Tablet(s) PO daily 06/17/2016 12/13/2016 In active bupropion HCl XL 300 mg 24 hr tablet, extended release RxNorm: 541140 1 Tablet(s) PO daily 05/12/2016 07/10/2016 Inactive bupropion HCl XL 300 mg 24 hr tablet, extended release RxNorm: 009358 1 Tablet(s) PO daily 05/12/2016 05/11/2016 Inactive Cialis 20 mg tablet RxNorm: 451195 1 Tablet(s) PO PRN 02/16/2016 No Stop Date Active not more than 1 tab in 24 hours morphine ER 10 mg ca psule,extended release pellets RxNorm: 509271 1 Tablet(s) PO Q6 as needed 02/16/2016 11/16/2016 Inactive clonazepam 1 mg tablet RxNorm: 047492 1/2 Tablet(s) PO BID 02/16/2016 09/15/2016 Inactive trazodone 50 mg tablet RxNorm: 357418 1/2 Tablet(s) as needed 1 Tablet(s) PO Q HS 02/16/2016 08/18/2016 In active trazodone 50 mg tablet RxNorm: 160565 1/2 Tablet(s) 1 Tablet(s) PO QHS 11/17/2015 02/15/2016 In active trazodone 50 mg tablet RxNorm: 246338 1 Tablet(s) PO QHS 10/19/2015 11/16/2015 Inactive levothyroxine 200 mc g tablet RxNorm: 939957 1 Tablet(s) PO daily 10/02/2015 08/10/2016 Inactive Wellbutrin XL 150 mg 24 hr tablet, extended release RxNorm: 483285 1 Tablet(s) PO daily 10/02/2015 05/11/2016 Inactive levothyroxine 200 mc g tablet RxNorm: 846089 1 Tablet(s) PO daily 09/30/2015 10/01/2015 Inactive Wellbutrin XL 150 mg 24 hr tablet, extended release RxNorm: 095117 1 Tablet(s) PO daily 09/30/2015 10/01/2015 Inactive trazodone 50 mg tablet RxNorm: 405399 1 Tablet(s) PO QHS 09/11/2015 10/10/2015 Inactive trazodone 50 mg tablet RxNorm: 348409 1 Tablet(s) PO QHS 09/11/2015 09/10/2015 Inactive Cymbalta 30 mg capsu le,delayed release RxNorm: 056715 1 Capsule(s) PO daily 09/07/2015 11/16/2015 In active Cymbalta 60 mg capsu le,delayed release RxNorm: 429435 1 Capsule(s) PO daily 08/31/2015 08/30/2015 In active Cymbalta 30 mg capsu le,delayed release RxNorm: 788799 1 Capsule(s) PO daily take with 60mg to make 90 mg daily 08/31/2015 09/06/2015 Inactive Cymbalta 30 mg capsu le,delayed release RxNorm: 778806 1 Capsule(s) PO daily take with 60mg to make 90 mg daily 08/31/2015 08/30/2015 Inactive Cymbalta 60 mg capsu le,delayed release RxNorm: 147162 1 Capsule(s) PO daily x 7 days and then increase to 90mg daily 08/31/2015 09/07/2015 Inactive levothyroxine 200 mc g tablet RxNorm: 287608 1 Tablet(s) PO daily 08/14/2015 09/29/2015 Inactive Wellbutrin XL 150 mg 24 hr tablet, extended release RxNorm: 561446 1 Tablet(s) PO daily 07/14/2015 09/29/2015 Inactive Cialis 20 mg tablet RxNorm: 003260 1 Tablet(s) PO PRN 07/02/2015 02/15/2016 Inactive not more than 1 tab in 24 hours liothyronine 5 mcg t ablet RxNorm: 553218 1 Tablet(s) PO daily 2015 05/29/2016 Inactive clonazepam 1 mg tablet RxNorm: 358734 1 Tablet(s) PO TID 2015 02/15/2016 Inactive minocycline 50 mg ta blet RxNorm: 301861 1 Tablet(s) PO daily 2015 05/11/2016 Inactive Wellbutrin XL 150 mg 24 hr tablet, extended release RxNorm: 403392 1 Tablet(s) PO daily 04/23/2015 07/13/2015 Inactive levothyroxine 200 mc g tablet RxNorm: 060650 1 Tablet(s) PO daily 04/23/2015 08/13/2015 Inactive Aleve oral RxNorm: 334843 oral No Start Date Active Tylenol 500 mg RxNorm: oral No Start Date Active morphine ER 15 mg ta blet,extended release RxNorm: 167457 oral No Start Date 11/16/2016 Inactive Trazadone 25 mg RxNorm: 2 PO daily No Start Date 09/11/2015 Inactive diclofenac oral RxNorm: 3355 oral No Start Date 05/04/2018 Inactive clonazepam 1 mg tablet RxNorm: 085998 1 Tablet(s) PO QHS No Start Date 06/04/2015 Inactive Wellbutrin XL 150 mg 24 hr tablet, extended release RxNorm: 320658 1 Tablet(s) PO daily No Start Date 04/22/2015 Inactive minocycline 50 mg ta blet RxNorm: 135002 1 Tablet(s) PO daily No Start Date 06/04/2015 Inactive methadone 5 mg tablet RxNorm: 975587 1 Tablet(s) PO Q8 No Start Date 02/15/2016 Inactive Protonix 40 mg table t,delayed release RxNorm: 768922 Tablet(s) PO daily No Start Date 06/16/2016 Inactive Opana ER 15 mg table t, crush resistant, extended release RxNorm: 306257 1 Tablet(s) PO Q12H No Start Date 06/08/2017 Inactive MS Contin 30 mg tabl et,extended release RxNorm: 265548 1 Tablet(s) PO Q12H No Start Date 02/15/2016 Inactive Opana ER 15 mg table t, crush resistant, extended release RxNorm: 683563 1 Tablet(s) PO BID No Start Date 09/15/2016 Inactive liothyronine 5 mcg t ablet RxNorm: 675910 1 Tablet(s) PO daily No Start Date 06/04/2015 Inactive Cialis 20 mg tablet RxNorm: 253190 1 Tablet(s) PO PRN No Start Date 07/01/2015 Inactive not more than 1 tab in 24 hours baclofen 10 mg tablet RxNorm: 237081 1 Tablet(s) PO TID as needed No Start Date 05/11/2016 Inactive morphine 15 mg immed iate release tablet RxNorm: 229466 1 Tablet(s) PO Q6 PRN as needed No Start Date 02/15/2016 Inactive levothyroxine 200 mc g tablet RxNorm: 793416 1 Tablet(s) PO daily No Start Date 04/22/2015 Inactive Opana ER 5 mg tablet , crush resistant, extended release RxNorm: 869381 1 Tablet(s) PO Q6 No Start Date 06/08/2017 Inactive Medication Administered Medication Codes Instruc tions Start Date Status cyanocobalamin (vit B-12) 1,000 mcg/mL injection solut ion RxNorm: 320059 1Milliliter 12/27/2018 No longer Active Immunizations No Immunization data Assessments Condition Codes Effectiv e Dates Major depressive disorder, recurrent, moderate ICD-10: F33.1 ICD-9: 296.32 07/18/2019 Hypothyroidism, unspecified ICD-10: E03.9 ICD-9: 244.9 07/18/2019 Chronic pain syndrome ICD-10: G89.4 ICD-9: 338.4 07/18/2019 Encounter for screening for lipoid disorders ICD-10: Z13.220 ICD-9: V77.91 01/07/2019 Vitamin B12 deficiency anemia, unspecified ICD-10: D51.9 ICD-9: 281.1 12/27/2018 Obstructive sleep apnea (adult) (pediatric) ICD-10: G47.33 ICD-9: 327.23 12/27/2018 Other fatigue ICD-10: R53.83 ICD-9: 780.79 09/27/2018 Other obesity due to excess calories ICD-10: E66.09 ICD-9: 278.00 09/27/2018 Encounter for general adult medical exam ination with abnormal findings ICD-10: Z00.01 ICD-9: V70.0 09/17/2018 Other male erectile dysfunction ICD- 10: N52.8 ICD-9: 607.84 07/05/2018 Encounter for screening for malignant neoplasm of pros [place] ICD-10: Z12.5 ICD-9: V76.44 07/05/2018 Diarrhea, unspecified ICD-10: R19.7 ICD-9: 787.91 03/28/2018 Pain in unspecified joint ICD-10: M2 5.50 ICD-9: 719.40 03/28/2018 Melena ICD-10: K92.1 ICD-9: 578.1 03/28/2018 Other malaise ICD-10: R53.81 ICD-9: 780.79 03/28/2018 Anemia, unspecified ICD-10: D64.9 ICD-9: 285.9 01/04/2018 Other specified hypothyroidism ICD-1 0: E03.8 ICD-9: 244.8 12/01/2017 Alcohol dependence, uncomplicated IC D-10: F10.20 ICD-9: 303.90 09/29/2017 Pain in left knee ICD-10: M25.562 ICD-9: 719.46 04/07/2017 Cellulitis of left upper limb ICD-10 : L03.114 ICD-9: 682.3 11/17/2016 Superficial foreign body of left upper arm, initial en counter ICD-10: S40.852A ICD-9: 912.6 11/17/2016 Psychophysiologic insomnia ICD-10: F 51.04 ICD-9: 780.52 09/16/2016 Pain in left shoulder ICD-10: M25.51 2 ICD-9: 719.41 08/19/2016 Gastro-esophageal reflux disease without esophagitis ICD-10: K21.9 ICD-9: 530.81 06/17/2016 Cervicalgia ICD-10: M54.2 ICD-9: 723.1 02/16/2016 Lumbago with sciatica, unspecified side ICD-10: M54.40 ICD-9: 724.3 11/17/2015 Back pain, chronic ICD-9: 724.5 05/28/2015 Depression ICD-9: 311 Hypothyroid ICD-9: 244.9 05/28/2015 Bilateral calf pain ICD-9: 729.5 05/28/2015 Reason For Visit Reason For Visit Effective Dates Notes fatigue 07/18/2019 fatigue 05/14/2019 fatigue 03/12/2019 fatigue 01/07/2019 fatigue 12/27/2018 fatigue 11/05/2018 fatigue 09/27/2018 Annual Medicare Wellness Exam 09/17/2018 fatigue 09/03/2018 fatigue 07/05/2018 chest pain/pressure 05/04/2018 fever 03/28/2018 fatigue 02/27/2018 back pain 12/01/2017 [place] back pain 09/29/2017 [place] back pain 08/11/2017 [place] back pain 06/09/2017 [place] back pain 04/07/2017 [place] sores 11/17/2016 sores 11/10/2016 back pain 10/14/2016 back pain 09/16/2016 back pain 08/19/2016 back pain 06/17/2016 back pain 05/12/2016 back pain 02/16/2016 back pain 11/17/2015 back pain 08/28/2015 depression 05/28/2015 depression 04/23/2015 Results Observation Observation Code Item Item Code Result Date Tsh Ord6 TSH (3rd IS) 0.02 uIU/mL 01/07/2019 Cbc With Differential Ord2 WBC 4.66 K/ul 01/07/2019 Cbc With Differential Ord2 RBC 4.72 M/ul 01/07/2019 Cbc With Differential Ord2 HGB 13.9 g/dl 01/07/2019 Cbc With Differential Ord2 HCT 41.2 % 01/07/2019 Cbc With Differential Ord2 Neut% 49.2 % 01/07/2019 Cbc With Differential Ord2 MCV 87.3 fl 01/07/2019 Cbc With Differential Ord2 Lymph% 38.0 % 01/07/2019 Cbc With Differential Ord2 MCH 29.4 pg 01/07/2019 Cbc With Differential Ord2 Baldwin% 10.9 % 01/07/2019 Cbc With Differential Ord2 MCHC 33.7 pg 01/07/2019 Cbc With Differential Ord2 Eos% 1.7 % 01/07/2019 Cbc With Differential Ord2 PLT 289 K/ul 01/07/2019 Cbc With Differential Ord2 Baso% 0.2 % 01/07/2019 Cbc With Differential Ord2 RDW 13.7 % 01/07/2019 Cbc With Differential Ord2 Neut ABS# 2.29 K/ul 01/07/2019 Cbc With Differential Ord2 Lymph ABS# 1.77 K/ul 01/07/2019 Cbc With Differential Ord2 Baldwin ABS# 0.5 K/ul 01/07/2019 Cbc With Differential Ord2 Eos ABS# 0.1 K/ul 01/07/2019 Cbc With Differential Ord2 Baso ABS# 0.0 K/ul 01/07/2019 Free T4 Hpr442 FREE T4 2.05 ng/dL 01/07/2019 Lipid Ord30 CHOL 189 mg/dL 01/07/2019 Lipid Ord30 HDL 58.0 mg/dl 01/07/2019 Lipid Ord30 TRIG 155 mg/dL 01/07/2019 Lipid Ord30 LDL 100 mg/dL 01/07/2019 Lipid Ord30 C/HDL 3.3 Ratio 01/07/2019 Comp Metabolic Cmc549 NA 137 mEq/L 01/07/2019 Comp Metabolic Czh260 K 4.2 mEq/L 01/07/2019 Comp Metabolic Upx634 CL 104 mEq/L 01/07/2019 Comp Metabolic Oni564 CO2 26.0 mEq/L 01/07/2019 Comp Metabolic Kxn834 AN ION GAP 11 01/07/2019 Comp Metabolic Kde180 GL UCOSE 64 mg/dL 01/07/2019 Comp Metabolic Lie296 Cr eat 0.8 mg/dL 01/07/2019 Comp Metabolic Xnx857 eG FR 110 ml/min/1.73m2 12/28 Comp Metabolic Tme205 BUN 7 mg/dL 01/07/2019 Comp Metabolic Jpd596 B/ C Ratio 9.0 Ratio 01/07/2019 Comp Metabolic Etk895 CA LCIUM 9.7 mg/dL 01/07/2019 Comp Metabolic Juf863 AL K PHOS 64 U/L 01/07/2019 Comp Metabolic Rup814 T(SGOT) 32 U/L 01/07/2019 Comp Metabolic Idd816 AL T(SGPT) 44 U/L 01/07/2019 Comp Metabolic Uaf327 BI LI T 0.3 mg/dL 01/07/2019 Comp Metabolic Hdl598 AL BUMIN 4.3 g/dL 01/07/2019 Comp Metabolic Awq991 TP RO 6.5 g/dL 01/07/2019 Comp Metabolic Eih182 GL OB 2.2 g/dL 01/07/2019 Comp Metabolic Kvx248 A/ G Ratio 2.0 Ratio 01/07/2019 Comp Metabolic Ete468 Os mo 270 mOsmo 01/07/2019 Free T4 Npd523 FREE T4 1.54 ng/dL 11/05/2018 Vitamin D 25 Oh Lxw9580 VITAMIN D, 25 HYDROXY 40.65 ng/mL 11/05/2018 Tsh Ord6 TSH (3rd IS) 0.02 uIU/mL 11/05/2018 Vitamin D 25 Oh Ztu1094 VITAMIN D, 25 HYDROXY 30.96 ng/mL 07/06/2018 Comp Metabolic Dwe667 NA 141 mEq/L 07/06/2018 Comp Metabolic Oqu505 K 4.2 mEq/L 07/06/2018 Comp Metabolic Owx206 CL 103 mEq/L 07/06/2018 Comp Metabolic Pwm372 CO2 29.0 mEq/L 07/06/2018 Comp Metabolic Mrt530 AN ION GAP 13 07/06/2018 Comp Metabolic Ngn765 GL UCOSE 105 mg/dL 07/06/2018 Comp Metabolic Kwa794 Cr eat 0.8 mg/dL 07/06/2018 Comp Metabolic Fyf846 eG FR 101 ml/min/1.73m2 06/27 Comp Metabolic Vhw785 BUN 7 mg/dL 07/06/2018 Comp Metabolic Ccp153 B/ C Ratio 8.3 Ratio 07/06/2018 Comp Metabolic Leo454 CA LCIUM 9.9 mg/dL 07/06/2018 Comp Metabolic Clx350 AL K PHOS 65 U/L 07/06/2018 Comp Metabolic Qxn312 T(SGOT) 21 U/L 07/06/2018 Comp Metabolic Zqr238 AL T(SGPT) 31 U/L 07/06/2018 Comp Metabolic Aey887 BI LI T 0.3 mg/dL 07/06/2018 Comp Metabolic Fdc152 AL BUMIN 4.3 g/dL 07/06/2018 Comp Metabolic Wyu945 TP RO 6.4 g/dL 07/06/2018 Comp Metabolic Qul835 GL OB 2.1 g/dL 07/06/2018 Comp Metabolic Vcx730 A/ G Ratio 2.0 Ratio 07/06/2018 Comp Metabolic Kmy802 Os mo 280 mOsmo 07/06/2018 Cbc With Differential Ord2 WBC 4.78 K/ul 07/06/2018 Cbc With Differential Ord2 RBC 4.68 M/ul 07/06/2018 Cbc With Differential Ord2 HGB 13.7 g/dl 07/06/2018 Cbc With Differential Ord2 HCT 42.1 % 07/06/2018 Cbc With Differential Ord2 Neut% 44.4 % 07/06/2018 Cbc With Differential Ord2 MCV 90.0 fl 07/06/2018 Cbc With Differential Ord2 Lymph% 39.5 % 07/06/2018 Cbc With Differential Ord2 MCH 29.3 pg 07/06/2018 Cbc With Differential Ord2 Baldwin% 10.5 % 07/06/2018 Cbc With Differential Ord2 MCHC 32.5 pg 07/06/2018 Cbc With Differential Ord2 Eos% 5.2 % 07/06/2018 Cbc With Differential Ord2 PLT 283 K/ul 07/06/2018 Cbc With Differential Ord2 Baso% 0.4 % 07/06/2018 Cbc With Differential Ord2 RDW 14.0 % 07/06/2018 Cbc With Differential Ord2 Neut ABS# 2.12 K/ul 07/06/2018 Cbc With Differential Ord2 Lymph ABS# 1.89 K/ul 07/06/2018 Cbc With Differential Ord2 Baldwin ABS# 0.5 K/ul 07/06/2018 Cbc With Differential Ord2 Eos ABS# 0.3 K/ul 07/06/2018 Cbc With Differential Ord2 Baso ABS# 0.0 K/ul 07/06/2018 Total Psa Ord10 PSA 0.34 ng/mL 07/06/2018 Tsh Ord6 TSH (3rd IS) 0.02 uIU/mL 07/06/2018 Testosterone Bik553 Testo 400.6 ng/dL 07/06/2018 Free T4 Rjr929 FREE T4 1.48 ng/dL 07/06/2018 [place] Spotted Fever Igg/Igm 14377 3 [place]TH[place] SPOTTED FEVER IGM EIA . 04/04/2018 [place] Spotted Fever Igg/Igm 79347 3 RMSF, IGM 0.24 index 04/04/2018 [place] Spotted Fever Igg/Igm 36752 3 PARTHA MT SPOTTED FEVER IGG EIA FLEX . 04/04/2018 [place] Spotted Fever Igg/Igm 00999 3 RMSF, IGG SCREEN-FLEX Equivocal 04/04/2018 [place] Mtn Spot'D Fev Igg 905004 RMSF, IGG- TITER IFA <1:64 04/04/2018 Ehrlichia Chaffeensis Antibody Igg 002598 EHRLICHIA CHAFFEENSIS IGG <1:64 04/02/2018 Ehrlichia Chaffeensis Antibody Igm 078007 EHRLICHIA CHAFFEENSIS IGM < 1:16 04/02/2018 Lymes Disease Total Antibodies With Western Blot Refle x [id number] B. BURGDORFERI, IGG/IGM 0.23 03/30/2018 Lymes Disease Total Antibodies With Western Blot Refle x [id number] 03/30/2018 Cbc With Differential Ord2 WBC 5.04 K/ul 03/28/2018 Cbc With Differential Ord2 RBC 5.06 M/ul 03/28/2018 Cbc With Differential Ord2 HGB 14.5 g/dl 03/28/2018 Cbc With Differential Ord2 HCT 43.0 % 03/28/2018 Cbc With Differential Ord2 Neut% 54.7 % 03/28/2018 Cbc With Differential Ord2 MCV 85.0 fl 03/28/2018 Cbc With Differential Ord2 Lymph% 27.2 % 03/28/2018 Cbc With Differential Ord2 MCH 28.7 pg 03/28/2018 Cbc With Differential Ord2 Baldwin% 16.1 % 03/28/2018 Cbc With Differential Ord2 MCHC 33.7 pg 03/28/2018 Cbc With Differential Ord2 Eos% 2.0 % 03/28/2018 Cbc With Differential Ord2 PLT 174 K/ul 03/28/2018 Cbc With Differential Ord2 Baso% 0.0 % 03/28/2018 Cbc With Differential Ord2 RDW 16.9 % 03/28/2018 Cbc With Differential Ord2 Neut ABS# 2.76 K/ul 03/28/2018 Cbc With Differential Ord2 Lymph ABS# 1.37 K/ul 03/28/2018 Cbc With Differential Ord2 [place] ABS# 0.8 K/ul 03/28/2018 Cbc With Differential Ord2 Eos ABS# 0.1 K/ul 03/28/2018 Cbc With Differential Ord2 Baso ABS# 0.0 K/ul 03/28/2018 Comp Metabolic Rfc455 NA 136 mEq/L 02/16/2018 Comp Metabolic Vhx620 K 3.9 mEq/L 02/16/2018 Comp Metabolic Nxc542 CL 103 mEq/L 02/16/2018 Comp Metabolic Noi224 CO2 23.0 mEq/L 02/16/2018 Comp Metabolic Ivy134 AN ION GAP 14 02/16/2018 Comp Metabolic Yhi622 GL UCOSE 133 mg/dL 02/16/2018 Comp Metabolic Jqz308 Cr eat 0.8 mg/dL 02/16/2018 Comp Metabolic Maj091 eG FR 103 ml/min/1.73m2 01/26 Comp Metabolic Ydm432 BUN 7 mg/dL 02/16/2018 Comp Metabolic Xal882 B/ C Ratio 8.4 Ratio 02/16/2018 Comp Metabolic Cuc309 CA LCIUM 9.3 mg/dL 02/16/2018 Comp Metabolic Rkk056 AL K PHOS 71 U/L 02/16/2018 Comp Metabolic Cak161 T(SGOT) 42 U/L 02/16/2018 Comp Metabolic Ojx136 AL T(SGPT) 69 U/L 02/16/2018 Comp Metabolic Ddi197 BI LI T 0.3 mg/dL 02/16/2018 Comp Metabolic Sxd839 AL BUMIN 4.1 g/dL 02/16/2018 Comp Metabolic Pbz510 TP RO 6.3 g/dL 02/16/2018 Comp Metabolic Wwn513 GL OB 2.2 g/dL 02/16/2018 Comp Metabolic Osf479 A/ G Ratio 1.8 Ratio 02/16/2018 Comp Metabolic Tst485 Os mo 272 mOsmo 02/16/2018 Free T4 Bvx941 FREE T4 1.85 ng/dL 02/16/2018 Ferritin Ord22 FERRITIN 161.7 ng/mL 02/16/2018 Tsh Ord6 TSH (3rd IS) 0.01 uIU/mL 02/16/2018 Test(s) Not Perfromed LYD6005 Test(s) Not Performed Test(s) Not Performed. See Below: 02/16/2018 Test(s) Not Perfromed [id number] TEST NAME CBC 02/16/2018 Test(s) Not Perfromed [id number] Rejection Reason No Suitable Specimen Receive d 02/16/2018 Test(s) Not Perfromed [id number] COMMENT Please Recollect Sample 02/16/2018 Test(s) Not Perfromed [id number] [employer] Fernando Goyal 02/16/2018 Tibc Ord40 Iron 138 ug/dl 02/16/2018 Tibc Ord40 UIBC 223 ug/dL 02/16/2018 Tibc Ord40 TIBC 361 ug/dL 02/16/2018 Tibc Ord40 Fe-%Sat 38.2 % 02/16/2018 Cbc With Differential Ord2 WBC 5.03 K/ul 01/05/2018 Cbc With Differential Ord2 RBC 4.02 M/ul 01/05/2018 Cbc With Differential Ord2 HGB 10.6 g/dl 01/05/2018 Cbc With Differential Ord2 HCT 32.9 % 01/05/2018 Cbc With Differential Ord2 Neut% 42.5 % 01/05/2018 Cbc With Differential Ord2 MCV 81.8 fl 01/05/2018 Cbc With Differential Ord2 Lymph% 41.4 % 01/05/2018 Cbc With Differential Ord2 MCH 26.4 pg 01/05/2018 Cbc With Differential Ord2 Baldwin% 11.9 % 01/05/2018 Cbc With Differential Ord2 MCHC 32.2 pg 01/05/2018 Cbc With Differential Ord2 Eos% 3.4 % 01/05/2018 Cbc With Differential Ord2 PLT 342 K/ul 01/05/2018 Cbc With Differential Ord2 Baso% 0.8 % 01/05/2018 Cbc With Differential Ord2 RDW 17.0 % 01/05/2018 Cbc With Differential Ord2 Neut ABS# 2.14 K/ul 01/05/2018 Cbc With Differential Ord2 Lymph ABS# 2.08 K/ul 01/05/2018 Cbc With Differential Ord2 Baldwin ABS# 0.6 K/ul 01/05/2018 Cbc With Differential Ord2 Eos ABS# 0.2 K/ul 01/05/2018 Cbc With Differential Ord2 Baso ABS# 0.0 K/ul 01/05/2018 Ferritin Ord22 FERRITIN 5.7 ng/mL 12/06/2017 Tibc Ord40 Iron 33 ug/dl 12/06/2017 Tibc Ord40 UIBC 431 ug/dL 12/06/2017 Tibc Ord40 TIBC 464 ug/dL 12/06/2017 Tibc Ord40 Fe-%Sat 7.1 % 12/06/2017 Free T4 Xie629 FREE T4 1.82 ng/dL 12/01/2017 Tsh Ord6 hTSH II 0.07 uIU/mL 12/01/2017 Cbc With Differential Ord2 WBC 4.15 K/ul 12/01/2017 Cbc With Differential Ord2 RBC 4.00 M/ul 12/01/2017 Cbc With Differential Ord2 HGB 10.8 g/dl 12/01/2017 Cbc With Differential Ord2 HCT 33.3 % 12/01/2017 Cbc With Differential Ord2 Neut% 38.0 % 12/01/2017 Cbc With Differential Ord2 MCV 83.3 fl 12/01/2017 Cbc With Differential Ord2 Lymph% 46.3 % 12/01/2017 Cbc With Differential Ord2 MCH 27.0 pg 12/01/2017 Cbc With Differential Ord2 Baldwin% 10.6 % 12/01/2017 Cbc With Differential Ord2 MCHC 32.4 pg 12/01/2017 Cbc With Differential Ord2 Eos% 4.1 % 12/01/2017 Cbc With Differential Ord2 PLT 345 K/ul 12/01/2017 Cbc With Differential Ord2 Baso% 1.0 % 12/01/2017 Cbc With Differential Ord2 RDW 15.3 % 12/01/2017 Cbc With Differential Ord2 Neut ABS# 1.58 K/ul 12/01/2017 Cbc With Differential Ord2 Lymph ABS# 1.92 K/ul 12/01/2017 Cbc With Differential Ord2 Baldwin ABS# 0.4 K/ul 12/01/2017 Cbc With Differential Ord2 Eos ABS# 0.2 K/ul 12/01/2017 Cbc With Differential Ord2 Baso ABS# 0.0 K/ul 12/01/2017 Comp Metabolic Oth671 NA 136 mEq/L 12/01/2017 Comp Metabolic Raz375 K 4.6 mEq/L 12/01/2017 Comp Metabolic Poj824 CL 102 mEq/L 12/01/2017 Comp Metabolic Jxr599 CO2 27.0 mEq/L 12/01/2017 Comp Metabolic Npt088 AN ION GAP 12 12/01/2017 Comp Metabolic Eci889 GL UCOSE 90 mg/dL 12/01/2017 Comp Metabolic Rhs415 Cr eat 0.7 mg/dL 12/01/2017 Comp Metabolic Cto179 eG FR 123 ml/min/1.73m2 03/2018 Comp Metabolic Dgc809 BUN 4 mg/dL 12/01/2017 Comp Metabolic Auj509 B/ C Ratio 5.6 Ratio 12/01/2017 Comp Metabolic Xcm487 CA LCIUM 9.0 mg/dL 12/01/2017 Comp Metabolic Stf780 AL K PHOS 67 U/L 12/01/2017 Comp Metabolic Rox401 T(SGOT) 30 U/L 12/01/2017 Comp Metabolic Rma462 AL T(SGPT) 29 U/L 12/01/2017 Comp Metabolic Jhu107 BI LI T 0.3 mg/dL 12/01/2017 Comp Metabolic Rss750 AL BUMIN 4.1 g/dL 12/01/2017 Comp Metabolic Xxu853 TP RO 6.1 g/dL 12/01/2017 Comp Metabolic Sdy503 GL OB 2.0 g/dL 12/01/2017 Comp Metabolic Aid174 A/ G Ratio 2.0 Ratio 12/01/2017 Comp Metabolic Bco846 Os mo 268 mOsmo 12/01/2017 Comp Metabolic Pis730 NA 136 mEq/L 02/16/2016 Comp Metabolic Ket373 K 4.2 mEq/L 02/16/2016 Comp Metabolic Odp657 CL 104 mEq/L 02/16/2016 Comp Metabolic Six535 CO2 20.0 mEq/L 02/16/2016 Comp Metabolic Txe586 AN ION GAP 16 02/16/2016 Comp Metabolic Msb867 GL UCOSE 71 mg/dL 02/16/2016 Comp Metabolic Wlr563 Cr eat 0.8 mg/dL 02/16/2016 Comp Metabolic Pqp905 eG FR 113 ml/min/1.73m2 01/26 Comp Metabolic Nde184 BUN 7 mg/dL 02/16/2016 Comp Metabolic Mue277 B/ C Ratio 9.1 Ratio 02/16/2016 Comp Metabolic Nnc219 CA LCIUM 9.4 mg/dL 02/16/2016 Comp Metabolic Fcv967 AL K PHOS 57 U/L 02/16/2016 Comp Metabolic Wmk347 T(SGOT) 30 U/L 02/16/2016 Comp Metabolic Ibp131 AL T(SGPT) 27 U/L 02/16/2016 Comp Metabolic Jih209 BI LI T 0.2 mg/dL 02/16/2016 Comp Metabolic Jmb920 AL BUMIN 4.4 g/dL 02/16/2016 Comp Metabolic Yxy042 TP RO 6.5 g/dL 02/16/2016 Comp Metabolic Jkh749 GL OB 2.1 g/dL 02/16/2016 Comp Metabolic Mab604 A/ G Ratio 2.1 Ratio 02/16/2016 Comp Metabolic Lgz766 Os mo 268 mOsmo 02/16/2016 Free T4 Tuv624 FREE T4 1.20 ng/dL 02/16/2016 Cbc With Differential Ord2 WBC 5.32 K/ul 02/16/2016 Cbc With Differential Ord2 RBC 4.24 M/ul 02/16/2016 Cbc With Differential Ord2 HGB 12.8 g/dl 02/16/2016 Cbc With Differential Ord2 HCT 38.4 % 02/16/2016 Cbc With Differential Ord2 Neut% 60.1 % 02/16/2016 Cbc With Differential Ord2 MCV 90.6 fl 02/16/2016 Cbc With Differential Ord2 Lymph% 28.2 % 02/16/2016 Cbc With Differential Ord2 MCH 30.2 pg 02/16/2016 Cbc With Differential Ord2 Baldwin% 9.6 % 02/16/2016 Cbc With Differential Ord2 MCHC 33.3 pg 02/16/2016 Cbc With Differential Ord2 Eos% 1.7 % 02/16/2016 Cbc With Differential Ord2 PLT 377 K/ul 02/16/2016 Cbc With Differential Ord2 Baso% 0.4 % 02/16/2016 Cbc With Differential Ord2 RDW 12.8 % 02/16/2016 Cbc With Differential Ord2 Neut ABS# 3.20 K/ul 02/16/2016 Cbc With Differential Ord2 Lymph ABS# 1.50 K/ul 02/16/2016 Cbc With Differential Ord2 [place] ABS# 0.5 K/ul 02/16/2016 Cbc With Differential Ord2 Eos ABS# 0.1 K/ul 02/16/2016 Cbc With Differential Ord2 Baso ABS# 0.0 K/ul 02/16/2016 Cbc With Differential Ord2 New Analyzer Notice Please note new ref ranges s tarting 12-09-2015 due to implemntation of new five part differential hematolgy analyzer. 02/16/2016 Tsh Ord6 hTSH II 0.08 uIU/mL 02/16/2016 Review of Systems System Result Effective Dates Constitutional No recent illness 07/18/2019 Constitutional No night sweats 07/18/2019 Constitutional No chills 07/18/2019 Constitutional No diaphoresis 07/18/2019 Constitutional fatigue 0 07/18/2019 Constitutional No fever 07/18/2019 Constitutional No insomnia 07/18/2019 Constitutional No malaise 07/18/2019 Constitutional No weight loss 07/18/2019 Constitutional No weight gain 07/18/2019 Constitutional No obesity 07/18/2019 Eyes No blindness 2018 Eyes No eye discharge Eyes No eye erythema Eyes No eye floaters Eyes No eye foreign body 07/18/2019 Eyes No eye pain 019 Eyes No eye tearing 06/28 Eyes No eye trauma 07/18 Eyes No eyelid edema Eyes No eyelid erythema 07/18/2019 Eyes No eyelid pain 06/28 Eyes No photophobia 06/28 Eyes No vision change Eyes No amblyopia 2018 Eyes No cataract 019 Eyes No glaucoma 019 Eyes No macular degeneration 07/18/2019 Ears/Nose/Throat/Neck No dry mouth 07/18/2019 Ears/Nose/Throat/Neck No dental pain 07/18/2019 Ears/Nose/Throat/Neck No dizziness 07/18/2019 Ears/Nose/Throat/Neck No dysphagia 07/18/2019 Ears/Nose/Throat/Neck No headache 07/18/2019 Ears/Nose/Throat/Neck No hearing loss 07/18/2019 Ears/Nose/Throat/Neck No nasal allergies 07/18/2019 Ears/Nose/Throat/Neck No nasal discharge 07/18/2019 Ears/Nose/Throat/Neck No postnasal drip 07/18/2019 Ears/Nose/Throat/Neck No sinus congestion 07/18/2019 Ears/Nose/Throat/Neck No sore throat 07/18/2019 Cardiovascular No arrhythmia 07/18/2019 Cardiovascular No chest pain/pressure 07/18/2019 Cardiovascular No dyspnea 07/18/2019 Cardiovascular No edema 07/18/2019 Cardiovascular No exercise intolerance 07/18/2019 Cardiovascular No fatigue 07/18/2019 Cardiovascular No near-syncope/dizziness 07/18/2019 Cardiovascular No orthopnea 07/18/2019 Cardiovascular No palpitations 07/18/2019 Respiratory No electronic cigarettes/Vapor 07/18/2019 Respiratory No asthma Respiratory No pleuritic pain 07/18/2019 Respiratory No productive sputum 07/18/2019 Respiratory No chest tightness 07/18/2019 Respiratory No cigarette smoking 07/18/2019 Respiratory No cough Respiratory No dyspnea 0 07/18/2019 Respiratory No pedal edema 07/18/2019 Respiratory No snoring 0 07/18/2019 Respiratory No wheezing 07/18/2019 Gastrointestinal No hemorrhoids 07/18/2019 Gastrointestinal No abdominal pain 07/18/2019 Gastrointestinal No constipation 07/18/2019 Gastrointestinal No diarrhea 07/18/2019 Gastrointestinal No gastroesophageal reflu x 07/18/2019 Gastrointestinal No melena 07/18/2019 Gastrointestinal No nausea 07/18/2019 Gastrointestinal No vomiting 07/18/2019 Genitourinary/Nephrology No dysuria 07/18/2019 Genitourinary/Nephrology No nocturia 07/18/2019 Genitourinary/Nephrology No urinary incontinence 07/18/2019 Musculoskeletal No stiffness 07/18/2019 Musculoskeletal No swelling 07/18/2019 Musculoskeletal No muscle weakness 07/18/2019 Musculoskeletal No myalgias 07/18/2019 Dermatologic No pruritus 07/18/2019 Dermatologic No rash Dermatologic No scar Neurologic No dizziness 07/18/2019 Neurologic No headache 0 07/18/2019 Neurologic No neck pain 07/18/2019 Neurologic No syncope Psychiatric No confusion 07/18/2019 Psychiatric No anxiety 0 07/18/2019 Psychiatric No depression 07/18/2019 Constitutional fatigue 0 05/14/2019 Constitutional No recent illness 05/14/2019 Constitutional No night sweats 05/14/2019 Constitutional No chills 05/14/2019 Constitutional No diaphoresis 05/14/2019 Constitutional No fever 05/14/2019 Constitutional No insomnia 05/14/2019 Constitutional No malaise 05/14/2019 Constitutional No weight loss 05/14/2019 Constitutional No weight gain 05/14/2019 Constitutional No obesity 05/14/2019 Eyes No blindness 2018 Eyes No eye discharge Eyes No eye erythema Eyes No eye floaters Eyes No eye foreign body 05/14/2019 Eyes No eye pain 019 Eyes No eye tearing 04/27 Eyes No eye trauma 05/14 Eyes No eyelid edema Eyes No eyelid erythema 05/14/2019 Eyes No eyelid pain 04/27 Eyes No photophobia 04/27 Eyes No vision change Eyes No amblyopia 2018 Eyes No cataract 019 Eyes No glaucoma 019 Eyes No macular degeneration 05/14/2019 Ears/Nose/Throat/Neck No dry mouth 05/14/2019 Ears/Nose/Throat/Neck No dental pain 05/14/2019 Ears/Nose/Throat/Neck No dizziness 05/14/2019 Ears/Nose/Throat/Neck No dysphagia 05/14/2019 Ears/Nose/Throat/Neck No headache 05/14/2019 Ears/Nose/Throat/Neck No hearing loss 05/14/2019 Ears/Nose/Throat/Neck No nasal allergies 05/14/2019 Ears/Nose/Throat/Neck No nasal discharge 05/14/2019 Ears/Nose/Throat/Neck No postnasal drip 05/14/2019 Ears/Nose/Throat/Neck No sinus congestion 05/14/2019 Ears/Nose/Throat/Neck No sore throat 05/14/2019 Cardiovascular No arrhythmia 05/14/2019 Cardiovascular No chest pain/pressure 05/14/2019 Cardiovascular No dyspnea 05/14/2019 Cardiovascular No edema 05/14/2019 Cardiovascular No exercise intolerance 05/14/2019 Cardiovascular No fatigue 05/14/2019 Cardiovascular No near-syncope/dizziness 05/14/2019 Cardiovascular No orthopnea 05/14/2019 Cardiovascular No palpitations 05/14/2019 Respiratory No electronic cigarettes/Vapor 05/14/2019 Respiratory No asthma Respiratory No pleuritic pain 05/14/2019 Respiratory No productive sputum 05/14/2019 Respiratory No chest tightness 05/14/2019 Respiratory No cigarette smoking 05/14/2019 Respiratory No cough Respiratory No dyspnea 0 05/14/2019 Respiratory No pedal edema 05/14/2019 Respiratory No snoring 0 05/14/2019 Respiratory No wheezing 05/14/2019 Gastrointestinal No hemorrhoids 05/14/2019 Gastrointestinal No abdominal pain 05/14/2019 Gastrointestinal No constipation 05/14/2019 Gastrointestinal No diarrhea 05/14/2019 Gastrointestinal No gastroesophageal reflu x 05/14/2019 Gastrointestinal No melena 05/14/2019 Gastrointestinal No nausea 05/14/2019 Gastrointestinal No vomiting 05/14/2019 Genitourinary/Nephrology No dysuria 05/14/2019 Genitourinary/Nephrology No nocturia 05/14/2019 Genitourinary/Nephrology No urinary incontinence 05/14/2019 Musculoskeletal No stiffness 05/14/2019 Musculoskeletal No swelling 05/14/2019 Musculoskeletal No muscle weakness 05/14/2019 Musculoskeletal No myalgias 05/14/2019 Dermatologic No pruritus 05/14/2019 Dermatologic No rash Dermatologic No scar Neurologic No dizziness 05/14/2019 Neurologic No headache 0 05/14/2019 Neurologic No neck pain 05/14/2019 Neurologic No syncope Psychiatric No confusion 05/14/2019 Psychiatric No anxiety 0 05/14/2019 Psychiatric No depression 05/14/2019 Constitutional No recent illness 03/12/2019 Constitutional No anorexia 03/12/2019 Constitutional No night sweats 03/12/2019 Constitutional No chills 03/12/2019 Constitutional No diaphoresis 03/12/2019 Constitutional fatigue 0 03/12/2019 Constitutional No fever 03/12/2019 Constitutional insomnia 03/12/2019 Constitutional No malaise 03/12/2019 Constitutional No weight loss 03/12/2019 Constitutional No weight gain 03/12/2019 Constitutional obesity 0 03/12/2019 Eyes No eye discharge Eyes No eye erythema Eyes No eye pain 019 Eyes No vision change Ears/Nose/Throat/Neck No dizziness 03/12/2019 Ears/Nose/Throat/Neck No headache 03/12/2019 Cardiovascular No chest pain/pressure 03/12/2019 Cardiovascular No dyspnea 03/12/2019 Respiratory No chest congestion 03/12/2019 Respiratory No cough Respiratory daytime hypersomnolence 03/12/2019 Respiratory dyspnea on exertion 03/12/2019 Respiratory snoring 02/25 Gastrointestinal No constipation 03/12/2019 Gastrointestinal No diarrhea 03/12/2019 Gastrointestinal No nausea 03/12/2019 Gastrointestinal No vomiting 03/12/2019 Genitourinary/Nephrology No dysuria 03/12/2019 Musculoskeletal stiffness 03/12/2019 Musculoskeletal arthralgia(s) 03/12/2019 Musculoskeletal back pain 03/12/2019 Musculoskeletal myalgias 03/12/2019 Dermatologic No rash Neurologic No alteration of consciousness 03/12/2019 Neurologic No mental status change 03/12/2019 Psychiatric No anxiety 0 03/12/2019 Psychiatric depression 0 03/12/2019 Psychiatric No suicidality 03/12/2019 Constitutional No recent illness 01/07/2019 Constitutional No anorexia 01/07/2019 Constitutional No night sweats 01/07/2019 Constitutional No chills 01/07/2019 Constitutional No diaphoresis 01/07/2019 Constitutional fatigue 0 01/07/2019 Constitutional No fever 01/07/2019 Constitutional insomnia 01/07/2019 Constitutional No malaise 01/07/2019 Constitutional weight loss 01/07/2019 Constitutional No weight gain 01/07/2019 Constitutional obesity 0 01/07/2019 Eyes No eye discharge Eyes No eye erythema 09/2019 Eyes No eye pain 019 Eyes No vision change Ears/Nose/Throat/Neck No dizziness 01/07/2019 Ears/Nose/Throat/Neck No headache 01/07/2019 Cardiovascular No chest pain/pressure 01/07/2019 Cardiovascular No dyspnea 01/07/2019 Respiratory No chest congestion 01/07/2019 Respiratory No cough 09/2019 Respiratory daytime hypersomnolence 01/07/2019 Respiratory dyspnea on exertion 01/07/2019 Respiratory snoring 12/28 Gastrointestinal No constipation 01/07/2019 Gastrointestinal No diarrhea 01/07/2019 Gastrointestinal No nausea 01/07/2019 Gastrointestinal No vomiting 01/07/2019 Genitourinary/Nephrology No dysuria 01/07/2019 Musculoskeletal stiffness 01/07/2019 Musculoskeletal arthralgia(s) 01/07/2019 Musculoskeletal back pain 01/07/2019 Musculoskeletal myalgias 01/07/2019 Dermatologic No rash 09/2019 Neurologic No alteration of consciousness 01/07/2019 Neurologic No mental status change 01/07/2019 Psychiatric No anxiety 0 01/07/2019 Psychiatric depression 0 01/07/2019 Psychiatric No suicidality 01/07/2019 Constitutional No recent illness 12/27/2018 Constitutional No anorexia 12/27/2018 Constitutional No night sweats 12/27/2018 Constitutional No chills 12/27/2018 Constitutional No diaphoresis 12/27/2018 Constitutional fatigue 0 12/27/2018 Constitutional No fever 12/27/2018 Constitutional No malaise 12/27/2018 Constitutional No weight loss 12/27/2018 Constitutional weight gain 12/27/2018 Constitutional obesity 0 12/27/2018 Eyes No eye discharge Eyes No eye erythema Eyes No eye pain 019 Eyes No vision change Ears/Nose/Throat/Neck No dizziness 12/27/2018 Ears/Nose/Throat/Neck No headache 12/27/2018 Cardiovascular No chest pain/pressure 12/27/2018 Cardiovascular No dyspnea 12/27/2018 Respiratory No chest congestion 12/27/2018 Respiratory No cough Respiratory daytime hypersomnolence 12/27/2018 Respiratory dyspnea on exertion 12/27/2018 Respiratory snoring 11/29 Gastrointestinal No constipation 12/27/2018 Gastrointestinal No diarrhea 12/27/2018 Gastrointestinal No nausea 12/27/2018 Gastrointestinal No vomiting 12/27/2018 Genitourinary/Nephrology No dysuria 12/27/2018 Musculoskeletal stiffness 12/27/2018 Musculoskeletal arthralgia(s) 12/27/2018 Musculoskeletal back pain 12/27/2018 Musculoskeletal myalgias 12/27/2018 Dermatologic No rash Neurologic No alteration of consciousness 12/27/2018 Neurologic No mental status change 12/27/2018 Psychiatric No anxiety 0 12/27/2018 Psychiatric depression 0 12/27/2018 Psychiatric No suicidality 12/27/2018 Constitutional No insomnia 12/27/2018 Constitutional No recent illness 11/05/2018 Constitutional No anorexia 11/05/2018 Constitutional No night sweats 11/05/2018 Constitutional No chills 11/05/2018 Constitutional No diaphoresis 11/05/2018 Constitutional fatigue 1 01/06/2018 Constitutional No fever 11/05/2018 Constitutional insomnia 11/05/2018 Constitutional No malaise 11/05/2018 Constitutional weight loss 11/05/2018 Constitutional No weight gain 11/05/2018 Constitutional obesity 1 01/06/2018 Eyes No eye discharge Eyes No eye erythema 08/2018 Eyes No eye pain 018 Eyes No vision change Ears/Nose/Throat/Neck No dizziness 11/05/2018 Ears/Nose/Throat/Neck No headache 11/05/2018 Cardiovascular No chest pain/pressure 11/05/2018 Cardiovascular No dyspnea 11/05/2018 Respiratory No chest congestion 11/05/2018 Respiratory No cough 08/2018 Respiratory daytime hypersomnolence 11/05/2018 Respiratory dyspnea on exertion 11/05/2018 Respiratory snoring 10/27 Gastrointestinal No constipation 11/05/2018 Gastrointestinal No diarrhea 11/05/2018 Gastrointestinal No nausea 11/05/2018 Gastrointestinal No vomiting 11/05/2018 Genitourinary/Nephrology No dysuria 11/05/2018 Musculoskeletal stiffness 11/05/2018 Musculoskeletal arthralgia(s) 11/05/2018 Musculoskeletal back pain 11/05/2018 Musculoskeletal myalgias 11/05/2018 Dermatologic No rash 08/2018 Neurologic No alteration of consciousness 11/05/2018 Neurologic No mental status change 11/05/2018 Psychiatric No anxiety 1 01/06/2018 Psychiatric depression 1 01/06/2018 Psychiatric No suicidality 11/05/2018 Constitutional No recent illness 09/27/2018 Constitutional No chills 09/27/2018 Constitutional No diaphoresis 09/27/2018 Constitutional fatigue 1 11/27/2017 Constitutional No fever 09/27/2018 Constitutional insomnia 09/27/2018 Constitutional No malaise 09/27/2018 Eyes No eye discharge Eyes No eye erythema 11/2017 Eyes No eye pain 018 Eyes No vision change Ears/Nose/Throat/Neck No dizziness 09/27/2018 Ears/Nose/Throat/Neck No headache 09/27/2018 Cardiovascular No chest pain/pressure 09/27/2018 Cardiovascular No dyspnea 09/27/2018 Respiratory No chest congestion 09/27/2018 Respiratory No cough 11/2017 Respiratory daytime hypersomnolence 09/27/2018 Respiratory dyspnea on exertion 09/27/2018 Respiratory snoring 11/2017 Gastrointestinal No constipation 09/27/2018 Gastrointestinal No diarrhea 09/27/2018 Gastrointestinal No nausea 09/27/2018 Gastrointestinal No vomiting 09/27/2018 Genitourinary/Nephrology No dysuria 09/27/2018 Musculoskeletal stiffness 09/27/2018 Musculoskeletal arthralgia(s) 09/27/2018 Musculoskeletal back pain 09/27/2018 Dermatologic No rash 11/2017 Neurologic No alteration of consciousness 09/27/2018 Neurologic No mental status change 09/27/2018 Psychiatric No anxiety 1 11/27/2017 Psychiatric depression 1 11/27/2017 Psychiatric No suicidality 09/27/2018 Constitutional No anorexia 09/27/2018 Constitutional No night sweats 09/27/2018 Constitutional No weight loss 09/27/2018 Constitutional weight gain 09/27/2018 Constitutional obesity 1 11/27/2017 Musculoskeletal myalgias 09/27/2018 Constitutional No recent illness 09/17/2018 Constitutional No chills 09/17/2018 Constitutional No diaphoresis 09/17/2018 Constitutional fatigue 1 Constitutional No fever 09/17/2018 Constitutional No insomnia 09/17/2018 Constitutional No malaise 09/17/2018 Eyes No eye discharge Eyes No eye erythema Eyes No eye pain 018 Eyes No vision change Ears/Nose/Throat/Neck No dizziness 09/17/2018 Ears/Nose/Throat/Neck No headache 09/17/2018 Cardiovascular No chest pain/pressure 09/17/2018 Cardiovascular No dyspnea 09/17/2018 Respiratory No chest congestion 09/17/2018 Respiratory No cough Respiratory daytime hypersomnolence 09/17/2018 Respiratory dyspnea on exertion 09/17/2018 Respiratory snoring 08/28 Gastrointestinal No constipation 09/17/2018 Gastrointestinal No diarrhea 09/17/2018 Gastrointestinal No nausea 09/17/2018 Gastrointestinal No vomiting 09/17/2018 Genitourinary/Nephrology No dysuria 09/17/2018 Musculoskeletal stiffness 09/17/2018 Musculoskeletal arthralgia(s) 09/17/2018 Musculoskeletal back pain 09/17/2018 Dermatologic No rash Neurologic No alteration of consciousness 09/17/2018 Neurologic No mental status change 09/17/2018 Psychiatric No anxiety 1 Psychiatric depression 1 Psychiatric No suicidality 09/17/2018 Constitutional No recent illness 09/03/2018 Constitutional No chills 09/03/2018 Constitutional No diaphoresis 09/03/2018 Constitutional fatigue 1 Constitutional No fever 09/03/2018 Constitutional No insomnia 09/03/2018 Constitutional No malaise 09/03/2018 Eyes No eye discharge Eyes No eye erythema 06/2018 Eyes No eye pain 018 Eyes No vision change Ears/Nose/Throat/Neck No dizziness 09/03/2018 Ears/Nose/Throat/Neck No headache 09/03/2018 Cardiovascular No chest pain/pressure 09/03/2018 Cardiovascular No dyspnea 09/03/2018 Respiratory No chest congestion 09/03/2018 Respiratory No cough 06/2018 Respiratory daytime hypersomnolence 09/03/2018 Respiratory dyspnea on exertion 09/03/2018 Respiratory snoring 06/2018 Gastrointestinal No constipation 09/03/2018 Gastrointestinal No diarrhea 09/03/2018 Gastrointestinal No nausea 09/03/2018 Gastrointestinal No vomiting 09/03/2018 Genitourinary/Nephrology No dysuria 09/03/2018 Musculoskeletal stiffness 09/03/2018 Musculoskeletal arthralgia(s) 09/03/2018 Musculoskeletal back pain 09/03/2018 Dermatologic No rash 06/2018 Neurologic No alteration of consciousness 09/03/2018 Neurologic No mental status change 09/03/2018 Psychiatric No anxiety 1 Psychiatric depression 1 Psychiatric No suicidality 09/03/2018 Constitutional No recent illness 07/05/2018 Constitutional No chills 07/05/2018 Constitutional No diaphoresis 07/05/2018 Constitutional fatigue 0 07/05/2018 Constitutional No fever 07/05/2018 Constitutional No insomnia 07/05/2018 Constitutional No malaise 07/05/2018 Eyes No eye discharge Eyes No eye erythema 07/2018 Eyes No eye pain 018 Eyes No vision change Ears/Nose/Throat/Neck No dizziness 07/05/2018 Ears/Nose/Throat/Neck No headache 07/05/2018 Cardiovascular No chest pain/pressure 07/05/2018 Cardiovascular No dyspnea 07/05/2018 Respiratory No chest congestion 07/05/2018 Respiratory No cough 07/2018 Respiratory daytime hypersomnolence 07/05/2018 Respiratory dyspnea on exertion 07/05/2018 Respiratory snoring 07/2018 Gastrointestinal No constipation 07/05/2018 Gastrointestinal No diarrhea 07/05/2018 Gastrointestinal No nausea 07/05/2018 Gastrointestinal No vomiting 07/05/2018 Genitourinary/Nephrology No dysuria 07/05/2018 Musculoskeletal stiffness 07/05/2018 Musculoskeletal arthralgia(s) 07/05/2018 Musculoskeletal back pain 07/05/2018 Dermatologic No rash 07/2018 Neurologic No alteration of consciousness 07/05/2018 Neurologic No mental status change 07/05/2018 Psychiatric No anxiety 0 07/05/2018 Psychiatric depression 0 07/05/2018 Psychiatric No suicidality 07/05/2018 Constitutional No recent illness 05/04/2018 Constitutional No chills 05/04/2018 Constitutional No diaphoresis 05/04/2018 Constitutional fatigue 0 05/04/2018 Constitutional No fever 05/04/2018 Constitutional No insomnia 05/04/2018 Constitutional No malaise 05/04/2018 Eyes No eye discharge Eyes No eye erythema 06/2018 Eyes No eye pain 018 Eyes No vision change Ears/Nose/Throat/Neck No dizziness 05/04/2018 Ears/Nose/Throat/Neck No headache 05/04/2018 Cardiovascular No chest pain/pressure 05/04/2018 Cardiovascular No dyspnea 05/04/2018 Respiratory No chest congestion 05/04/2018 Respiratory No cough 06/2018 Respiratory daytime hypersomnolence 05/04/2018 Respiratory dyspnea on exertion 05/04/2018 Respiratory snoring 06/0 06/2018 Gastrointestinal No constipation 05/04/2018 Gastrointestinal No diarrhea 05/04/2018 Gastrointestinal No nausea 05/04/2018 Gastrointestinal No vomiting 05/04/2018 Genitourinary/Nephrology No dysuria 05/04/2018 Musculoskeletal stiffness 05/04/2018 Musculoskeletal arthralgia(s) 05/04/2018 Musculoskeletal back pain 05/04/2018 Musculoskeletal joint complaint 05/04/2018 Dermatologic No rash 06/2018 Neurologic No alteration of consciousness 05/04/2018 Neurologic No mental status change 05/04/2018 Psychiatric No anxiety 0 05/04/2018 Psychiatric depression 0 05/04/2018 Psychiatric No suicidality 05/04/2018 Gastrointestinal gastroesophageal reflux 05/04/2018 Constitutional recent illness 03/28/2018 Constitutional No chills 03/28/2018 Constitutional No diaphoresis 03/28/2018 Constitutional fever 12/2017 Constitutional fatigue 0 03/28/2018 Constitutional malaise 0 03/28/2018 Eyes No eye erythema 12/2017 Ears/Nose/Throat/Neck No nasal discharge 03/28/2018 Ears/Nose/Throat/Neck nasal allergies 03/28/2018 Cardiovascular No chest pain/pressure 03/28/2018 Cardiovascular No dyspnea 03/28/2018 Respiratory No cough 12/2017 Respiratory No chest congestion 03/28/2018 Gastrointestinal No abdominal pain 03/28/2018 Gastrointestinal diarrhea 03/28/2018 Gastrointestinal No constipation 03/28/2018 Gastrointestinal No hematochezia 03/28/2018 Gastrointestinal gastroesophageal reflux 03/28/2018 Gastrointestinal melena 03/28/2018 Gastrointestinal nausea 03/28/2018 Gastrointestinal No vomiting 03/28/2018 Neurologic No alteration of consciousness 03/28/2018 Neurologic No mental status change 03/28/2018 Constitutional No recent illness 02/27/2018 Constitutional No chills 02/27/2018 Constitutional No diaphoresis 02/27/2018 Constitutional fatigue 0 02/27/2018 Constitutional No fever 02/27/2018 Constitutional No insomnia 02/27/2018 Constitutional No malaise 02/27/2018 Eyes No eye discharge Eyes No eye erythema 01/2018 Eyes No eye pain 018 Eyes No vision change Ears/Nose/Throat/Neck No dizziness 02/27/2018 Ears/Nose/Throat/Neck No headache 02/27/2018 Cardiovascular No chest pain/pressure 02/27/2018 Cardiovascular No dyspnea 02/27/2018 Respiratory No chest congestion 02/27/2018 Respiratory No cough 01/2018 Respiratory dyspnea on exertion 02/27/2018 Gastrointestinal No constipation 02/27/2018 Gastrointestinal No diarrhea 02/27/2018 Gastrointestinal No nausea 02/27/2018 Gastrointestinal No vomiting 02/27/2018 Musculoskeletal stiffness 02/27/2018 Musculoskeletal arthralgia(s) 02/27/2018 Musculoskeletal back pain 02/27/2018 Musculoskeletal joint complaint 02/27/2018 Dermatologic No rash 01/2018 Neurologic No alteration of consciousness 02/27/2018 Neurologic No mental status change 02/27/2018 Psychiatric No anxiety 0 02/27/2018 Psychiatric depression 0 02/27/2018 Psychiatric No suicidality 02/27/2018 Genitourinary/Nephrology No dysuria 02/27/2018 Respiratory daytime hypersomnolence 02/27/2018 Respiratory snoring 04/01/2018 Constitutional No recent illness 12/01/2017 Constitutional No chills 12/01/2017 Constitutional No diaphoresis 12/01/2017 Constitutional fatigue 0 12/01/2017 Constitutional No fever 12/01/2017 Constitutional No insomnia 12/01/2017 Constitutional No malaise 12/01/2017 Eyes No eye discharge Eyes No eye erythema 03/2018 Eyes No eye pain 018 Eyes No vision change Ears/Nose/Throat/Neck No dizziness 12/01/2017 Ears/Nose/Throat/Neck No headache 12/01/2017 Cardiovascular No chest pain/pressure 12/01/2017 Cardiovascular No dyspnea 12/01/2017 Respiratory No chest congestion 12/01/2017 Respiratory No cough 03/2018 Respiratory dyspnea on exertion 12/01/2017 Gastrointestinal No constipation 12/01/2017 Gastrointestinal No diarrhea 12/01/2017 Gastrointestinal No nausea 12/01/2017 Gastrointestinal No vomiting 12/01/2017 Musculoskeletal stiffness 12/01/2017 Musculoskeletal arthralgia(s) 12/01/2017 Musculoskeletal back pain 12/01/2017 Musculoskeletal joint complaint 12/01/2017 Dermatologic No rash 03/2018 Neurologic No mental status change 12/01/2017 Psychiatric No anxiety 0 12/01/2017 Psychiatric depression 0 12/01/2017 Psychiatric No suicidality 12/01/2017 Neurologic No alteration of consciousness 12/01/2017 Constitutional No recent illness 09/29/2017 Constitutional No anorexia 09/29/2017 Constitutional No night sweats 09/29/2017 Constitutional No chills 09/29/2017 Constitutional No diaphoresis 09/29/2017 Constitutional fatigue 1 11/29/2016 Constitutional No fever 09/29/2017 Constitutional No insomnia 09/29/2017 Constitutional No malaise 09/29/2017 Constitutional No weight loss 09/29/2017 Constitutional No weight gain 09/29/2017 Eyes No eye discharge Eyes No eye erythema 01/2017 Eyes No eye pain 017 Eyes No vision change Ears/Nose/Throat/Neck No dizziness 09/29/2017 Ears/Nose/Throat/Neck No headache 09/29/2017 Cardiovascular No chest pain/pressure 09/29/2017 Cardiovascular No dyspnea 09/29/2017 Respiratory No chest congestion 09/29/2017 Respiratory No chest tightness 09/29/2017 Respiratory No cough 01/2017 Gastrointestinal No constipation 09/29/2017 Gastrointestinal No diarrhea 09/29/2017 Gastrointestinal No nausea 09/29/2017 Gastrointestinal No vomiting 09/29/2017 Genitourinary/Nephrology No anuria/oliguri a 09/29/2017 Genitourinary/Nephrology No dysuria 09/29/2017 Musculoskeletal stiffness 09/29/2017 Musculoskeletal arthralgia(s) 09/29/2017 Musculoskeletal back pain 09/29/2017 Musculoskeletal joint complaint 09/29/2017 Dermatologic No rash 01/2017 Dermatologic No acne rosacea 09/29/2017 Neurologic No dizziness 09/29/2017 Neurologic No mental status change 09/29/2017 Psychiatric No anxiety 1 11/29/2016 Psychiatric depression 1 11/29/2016 Psychiatric No suicidality 09/29/2017 Hematologic/Lymphatic No abnormal ec chymoses 09/29/2017 Hematologic/Lymphatic No abnormal bl eeding and bruising 09/29/2017 Respiratory dyspnea on exertion 09/29/2017 Constitutional No recent illness 08/11/2017 Constitutional No anorexia 08/11/2017 Constitutional No night sweats 08/11/2017 Constitutional No chills 08/11/2017 Constitutional No diaphoresis 08/11/2017 Constitutional fatigue 0 08/11/2017 Constitutional No fever 08/11/2017 Constitutional No insomnia 08/11/2017 Constitutional No malaise 08/11/2017 Constitutional No weight loss 08/11/2017 Constitutional No weight gain 08/11/2017 Eyes No eye discharge Eyes No eye erythema Eyes No eye pain 017 Eyes No vision change Ears/Nose/Throat/Neck No dizziness 08/11/2017 Ears/Nose/Throat/Neck No headache 08/11/2017 Cardiovascular No chest pain/pressure 08/11/2017 Cardiovascular No dyspnea 08/11/2017 Respiratory No chest congestion 08/11/2017 Respiratory No chest tightness 08/11/2017 Respiratory No cough Gastrointestinal No constipation 08/11/2017 Gastrointestinal No diarrhea 08/11/2017 Gastrointestinal No nausea 08/11/2017 Gastrointestinal No vomiting 08/11/2017 Genitourinary/Nephrology No anuria/oliguri a 08/11/2017 Genitourinary/Nephrology No dysuria 08/11/2017 Musculoskeletal stiffness 08/11/2017 Musculoskeletal arthralgia(s) 08/11/2017 Musculoskeletal back pain 08/11/2017 Musculoskeletal joint complaint 08/11/2017 Dermatologic No rash Dermatologic No acne rosacea 08/11/2017 Neurologic No dizziness 08/11/2017 Neurologic No mental status change 08/11/2017 Psychiatric No anxiety 0 08/11/2017 Psychiatric depression 0 08/11/2017 Psychiatric No suicidality 08/11/2017 Hematologic/Lymphatic No abnormal ec chymoses 08/11/2017 Hematologic/Lymphatic No abnormal bl eeding and bruising 08/11/2017 Constitutional No recent illness 06/09/2017 Constitutional No anorexia 06/09/2017 Constitutional No night sweats 06/09/2017 Constitutional No chills 06/09/2017 Constitutional No diaphoresis 06/09/2017 Constitutional fatigue 0 06/09/2017 Constitutional No fever 06/09/2017 Constitutional No insomnia 06/09/2017 Constitutional No malaise 06/09/2017 Constitutional No weight loss 06/09/2017 Constitutional No weight gain 06/09/2017 Eyes No eye discharge Eyes No eye erythema Eyes No eye pain 017 Eyes No vision change Ears/Nose/Throat/Neck No dizziness 06/09/2017 Ears/Nose/Throat/Neck No headache 06/09/2017 Cardiovascular No chest pain/pressure 06/09/2017 Cardiovascular No dyspnea 06/09/2017 Respiratory No chest congestion 06/09/2017 Respiratory No chest tightness 06/09/2017 Respiratory No cough Gastrointestinal No constipation 06/09/2017 Gastrointestinal No diarrhea 06/09/2017 Gastrointestinal No nausea 06/09/2017 Gastrointestinal No vomiting 06/09/2017 Genitourinary/Nephrology No anuria/oliguri a 06/09/2017 Genitourinary/Nephrology No dysuria 06/09/2017 Musculoskeletal stiffness 06/09/2017 Musculoskeletal arthralgia(s) 06/09/2017 Musculoskeletal back pain 06/09/2017 Musculoskeletal joint complaint 06/09/2017 Dermatologic No rash Dermatologic No acne rosacea 06/09/2017 Neurologic No dizziness 06/09/2017 Neurologic No mental status change 06/09/2017 Psychiatric No anxiety 0 06/09/2017 Psychiatric depression 0 06/09/2017 Psychiatric No suicidality 06/09/2017 Hematologic/Lymphatic No abnormal ec chymoses 06/09/2017 Hematologic/Lymphatic No abnormal bl eeding and bruising 06/09/2017 Musculoskeletal back pain 04/07/2017 Musculoskeletal joint complaint 04/07/2017 Constitutional No recent illness 04/07/2017 Constitutional No anorexia 04/07/2017 Constitutional No night sweats 04/07/2017 Constitutional No chills 04/07/2017 Constitutional No diaphoresis 04/07/2017 Constitutional fatigue 0 04/07/2017 Constitutional No fever 04/07/2017 Constitutional No insomnia 04/07/2017 Constitutional No malaise 04/07/2017 Constitutional No weight loss 04/07/2017 Constitutional No weight gain 04/07/2017 Eyes No eye discharge Eyes No eye erythema 10/2017 Eyes No eye pain 017 Eyes No vision change Ears/Nose/Throat/Neck No dizziness 04/07/2017 Ears/Nose/Throat/Neck No headache 04/07/2017 Cardiovascular No chest pain/pressure 04/07/2017 Cardiovascular No dyspnea 04/07/2017 Respiratory No chest tightness 04/07/2017 Respiratory No chest congestion 04/07/2017 Respiratory No cough 10/2017 Gastrointestinal No constipation 04/07/2017 Gastrointestinal No nausea 04/07/2017 Gastrointestinal No diarrhea 04/07/2017 Gastrointestinal No vomiting 04/07/2017 Genitourinary/Nephrology No anuria/oliguri a 04/07/2017 Genitourinary/Nephrology No dysuria 04/07/2017 Musculoskeletal stiffness 04/07/2017 Musculoskeletal arthralgia(s) 04/07/2017 Dermatologic No rash 10/2017 Dermatologic No acne rosacea 04/07/2017 Neurologic No dizziness 04/07/2017 Neurologic No mental status change 04/07/2017 Psychiatric No anxiety 0 04/07/2017 Psychiatric depression 0 04/07/2017 Psychiatric No suicidality 04/07/2017 Hematologic/Lymphatic No abnormal ec chymoses 04/07/2017 Hematologic/Lymphatic No abnormal bl eeding and bruising 04/07/2017 Dermatologic sores 11/17 Constitutional No recent illness 11/17/2016 Constitutional No anorexia 11/17/2016 Constitutional No night sweats 11/17/2016 Constitutional No chills 11/17/2016 Constitutional No diaphoresis 11/17/2016 Constitutional fatigue 1 01/18/2016 Constitutional No fever 11/17/2016 Constitutional No insomnia 11/17/2016 Constitutional No malaise 11/17/2016 Constitutional No weight loss 11/17/2016 Constitutional No weight gain 11/17/2016 Dermatologic sores 11/10 Constitutional No recent illness 10/14/2016 Constitutional No anorexia 10/14/2016 Constitutional No night sweats 10/14/2016 Constitutional chills Constitutional diaphoresis 10/14/2016 Constitutional No fatigue 10/14/2016 Constitutional No fever 10/14/2016 Constitutional No malaise 10/14/2016 Constitutional No weight loss 10/14/2016 Constitutional No weight gain 10/14/2016 Constitutional No obesity 10/14/2016 Constitutional insomnia 10/14/2016 Eyes No eye pain 016 Eyes No vision change Ears/Nose/Throat/Neck No dizziness 10/14/2016 Ears/Nose/Throat/Neck No headache 10/14/2016 Cardiovascular No chest pain/pressure 10/14/2016 Cardiovascular No dyspnea 10/14/2016 Respiratory No chest congestion 10/14/2016 Respiratory No chest tightness 10/14/2016 Respiratory No cough Gastrointestinal No constipation 10/14/2016 Gastrointestinal No diarrhea 10/14/2016 Gastrointestinal No nausea 10/14/2016 Gastrointestinal No vomiting 10/14/2016 Genitourinary/Nephrology No dysuria 10/14/2016 Genitourinary/Nephrology No anuria/oliguri a 10/14/2016 Dermatologic No rash Dermatologic No acne rosacea 10/14/2016 Neurologic No dizziness 10/14/2016 Neurologic No mental status change 10/14/2016 Psychiatric depression 1 12/14/2015 Psychiatric No anxiety 1 12/14/2015 Hematologic/Lymphatic No abnormal ec chymoses 10/14/2016 Hematologic/Lymphatic No abnormal bl eeding and bruising 10/14/2016 Musculoskeletal stiffness 10/14/2016 Musculoskeletal swelling 10/14/2016 Musculoskeletal arthralgia(s) 10/14/2016 Musculoskeletal back pain 10/14/2016 Musculoskeletal bone pain 10/14/2016 Musculoskeletal myalgias 10/14/2016 Musculoskeletal muscle weakness 10/14/2016 Musculoskeletal joint complaint 10/14/2016 Psychiatric No suicidality 10/14/2016 Constitutional No recent illness 09/16/2016 Constitutional No anorexia 09/16/2016 Constitutional No night sweats 09/16/2016 Constitutional No chills 09/16/2016 Constitutional No diaphoresis 09/16/2016 Constitutional No fatigue 09/16/2016 Constitutional No fever 09/16/2016 Constitutional No insomnia 09/16/2016 Constitutional No malaise 09/16/2016 Constitutional No weight loss 09/16/2016 Constitutional No weight gain 09/16/2016 Constitutional No obesity 09/16/2016 Eyes No eye discharge Eyes No eye erythema Ears/Nose/Throat/Neck No headache 09/16/2016 Ears/Nose/Throat/Neck No nasal allergies 09/16/2016 Ears/Nose/Throat/Neck No nasal discharge 09/16/2016 Ears/Nose/Throat/Neck No otalgia 09/16/2016 Ears/Nose/Throat/Neck No otitis media 09/16/2016 Ears/Nose/Throat/Neck No sore throat 09/16/2016 Cardiovascular No chest pain/pressure 09/16/2016 Cardiovascular No dyspnea 09/16/2016 Respiratory No chest congestion 09/16/2016 Respiratory No chest tightness 09/16/2016 Respiratory No cigarette smoking 09/16/2016 Respiratory No cough Respiratory dyspnea on exertion 09/16/2016 Gastrointestinal No abdominal pain 09/16/2016 Gastrointestinal No constipation 09/16/2016 Gastrointestinal No diarrhea 09/16/2016 Gastrointestinal No nausea 09/16/2016 Genitourinary/Nephrology No dysuria 09/16/2016 Musculoskeletal stiffness 09/16/2016 Musculoskeletal arthralgia(s) 09/16/2016 Musculoskeletal back pain 09/16/2016 Musculoskeletal joint complaint 09/16/2016 Musculoskeletal shoulder pain 09/16/2016 Dermatologic No rash Dermatologic No sores Neurologic No alteration of consciousness 09/16/2016 Constitutional No recent illness 08/19/2016 Constitutional No anorexia 08/19/2016 Constitutional No night sweats 08/19/2016 Constitutional No chills 08/19/2016 Constitutional No diaphoresis 08/19/2016 Constitutional No fatigue 08/19/2016 Constitutional No fever 08/19/2016 Constitutional No insomnia 08/19/2016 Constitutional No malaise 08/19/2016 Constitutional No weight loss 08/19/2016 Constitutional No weight gain 08/19/2016 Constitutional No obesity 08/19/2016 Ears/Nose/Throat/Neck No headache 08/19/2016 Ears/Nose/Throat/Neck No nasal allergies 08/19/2016 Ears/Nose/Throat/Neck No nasal discharge 08/19/2016 Ears/Nose/Throat/Neck No otalgia 08/19/2016 Ears/Nose/Throat/Neck No otitis media 08/19/2016 Ears/Nose/Throat/Neck No sore throat 08/19/2016 Cardiovascular No chest pain/pressure 08/19/2016 Cardiovascular No dyspnea 08/19/2016 Respiratory No chest congestion 08/19/2016 Respiratory No chest tightness 08/19/2016 Respiratory No cigarette smoking 08/19/2016 Respiratory No cough Respiratory dyspnea on exertion 08/19/2016 Gastrointestinal No abdominal pain 08/19/2016 Gastrointestinal No constipation 08/19/2016 Gastrointestinal No diarrhea 08/19/2016 Gastrointestinal No nausea 08/19/2016 Genitourinary/Nephrology No dysuria 08/19/2016 Musculoskeletal stiffness 08/19/2016 Musculoskeletal arthralgia(s) 08/19/2016 Musculoskeletal back pain 08/19/2016 Musculoskeletal shoulder pain 08/19/2016 Dermatologic No rash Dermatologic No sores Eyes No eye discharge Eyes No eye erythema Musculoskeletal joint complaint 08/19/2016 Constitutional No recent illness 06/17/2016 Constitutional No anorexia 06/17/2016 Constitutional No night sweats 06/17/2016 Constitutional No chills 06/17/2016 Constitutional No diaphoresis 06/17/2016 Constitutional No fatigue 06/17/2016 Constitutional No fever 06/17/2016 Constitutional No insomnia 06/17/2016 Constitutional No malaise 06/17/2016 Constitutional No weight loss 06/17/2016 Constitutional No weight gain 06/17/2016 Constitutional No obesity 06/17/2016 Ears/Nose/Throat/Neck No headache 06/17/2016 Ears/Nose/Throat/Neck No nasal allergies 06/17/2016 Ears/Nose/Throat/Neck No nasal discharge 06/17/2016 Ears/Nose/Throat/Neck No otalgia 06/17/2016 Ears/Nose/Throat/Neck No otitis media 06/17/2016 Ears/Nose/Throat/Neck No sore throat 06/17/2016 Cardiovascular No chest pain/pressure 06/17/2016 Cardiovascular No dyspnea 06/17/2016 Respiratory No chest congestion 06/17/2016 Respiratory No chest tightness 06/17/2016 Respiratory No cigarette smoking 06/17/2016 Respiratory No cough Respiratory dyspnea on exertion 06/17/2016 Respiratory dyspnea 05/28 Gastrointestinal No abdominal pain 06/17/2016 Gastrointestinal No constipation 06/17/2016 Gastrointestinal No diarrhea 06/17/2016 Gastrointestinal No nausea 06/17/2016 Genitourinary/Nephrology No dysuria 06/17/2016 Musculoskeletal stiffness 06/17/2016 Musculoskeletal arthralgia(s) 06/17/2016 Musculoskeletal back pain 06/17/2016 Musculoskeletal shoulder pain 06/17/2016 Dermatologic No rash Dermatologic No sores Musculoskeletal shoulder pain 05/12/2016 Musculoskeletal stiffness 05/12/2016 Musculoskeletal arthralgia(s) 05/12/2016 Musculoskeletal back pain 05/12/2016 Constitutional No recent illness 05/12/2016 Constitutional No anorexia 05/12/2016 Constitutional No night sweats 05/12/2016 Constitutional No chills 05/12/2016 Constitutional No diaphoresis 05/12/2016 Constitutional No fatigue 05/12/2016 Constitutional No fever 05/12/2016 Constitutional No insomnia 05/12/2016 Constitutional No malaise 05/12/2016 Constitutional No weight loss 05/12/2016 Constitutional No weight gain 05/12/2016 Constitutional No obesity 05/12/2016 Cardiovascular No chest pain/pressure 05/12/2016 Cardiovascular No dyspnea 05/12/2016 Respiratory No cough Respiratory dyspnea 04/27 Respiratory dyspnea on exertion 05/12/2016 Respiratory No chest congestion 05/12/2016 Respiratory No chest tightness 05/12/2016 Respiratory No cigarette smoking 05/12/2016 Gastrointestinal No constipation 05/12/2016 Gastrointestinal No diarrhea 05/12/2016 Gastrointestinal No abdominal pain 05/12/2016 Gastrointestinal No nausea 05/12/2016 Genitourinary/Nephrology No dysuria 05/12/2016 Dermatologic No rash Dermatologic No sores Ears/Nose/Throat/Neck No headache 05/12/2016 Ears/Nose/Throat/Neck No nasal discharge 05/12/2016 Ears/Nose/Throat/Neck No nasal allergies 05/12/2016 Ears/Nose/Throat/Neck No otalgia 05/12/2016 Ears/Nose/Throat/Neck No otitis media 05/12/2016 Ears/Nose/Throat/Neck No sore throat 05/12/2016 Constitutional No recent illness 02/16/2016 Constitutional No anorexia 02/16/2016 Constitutional No night sweats 02/16/2016 Constitutional No chills 02/16/2016 Constitutional No diaphoresis 02/16/2016 Constitutional No fatigue 02/16/2016 Constitutional No fever 02/16/2016 Constitutional No insomnia 02/16/2016 Constitutional No malaise 02/16/2016 Constitutional No weight loss 02/16/2016 Constitutional No weight gain 02/16/2016 Constitutional No obesity 02/16/2016 Musculoskeletal back pain 02/16/2016 Musculoskeletal No joint complaint 02/16/2016 Musculoskeletal muscle weakness 02/16/2016 Musculoskeletal myalgias 02/16/2016 Musculoskeletal shoulder pain 02/16/2016 Eyes No eye discharge Eyes No eye erythema Ears/Nose/Throat/Neck No dizziness 02/16/2016 Cardiovascular No chest pain/pressure 02/16/2016 Respiratory No cough Gastrointestinal No abdominal pain 02/16/2016 Gastrointestinal No diarrhea 02/16/2016 Gastrointestinal No constipation 02/16/2016 Genitourinary/Nephrology No dysuria 02/16/2016 Dermatologic No rash Constitutional No chills 11/17/2015 Constitutional No fever 11/17/2015 Eyes No eye erythema Ears/Nose/Throat/Neck No dizziness 11/17/2015 Ears/Nose/Throat/Neck No headache 11/17/2015 Cardiovascular No chest pain/pressure 11/17/2015 Respiratory No cough Gastrointestinal No constipation 11/17/2015 Gastrointestinal No diarrhea 11/17/2015 Gastrointestinal No nausea 11/17/2015 Gastrointestinal No vomiting 11/17/2015 Genitourinary/Nephrology No dysuria 11/17/2015 Musculoskeletal back pain 11/17/2015 Musculoskeletal bone pain 11/17/2015 Musculoskeletal joint complaint 11/17/2015 Musculoskeletal muscle weakness 11/17/2015 Dermatologic No rash Dermatologic No sores Neurologic No headache 1 01/18/2015 Psychiatric anxiety 10/28 Psychiatric depression 1 01/18/2015 Hematologic/Lymphatic No abnormal bl eeding and bruising 11/17/2015 Constitutional fatigue 1 01/18/2015 Constitutional No chills 08/28/2015 Constitutional No fever 08/28/2015 Psychiatric anxiety 12/2014 Psychiatric depression 1 Hematologic/Lymphatic No abnormal bl eeding and bruising 08/28/2015 Neurologic No headache 1 Dermatologic No sores Dermatologic No rash 12/2014 Musculoskeletal back pain 08/28/2015 Genitourinary/Nephrology No dysuria 08/28/2015 Gastrointestinal No vomiting 08/28/2015 Gastrointestinal No nausea 08/28/2015 Gastrointestinal No diarrhea 08/28/2015 Gastrointestinal No constipation 08/28/2015 Musculoskeletal joint complaint 08/28/2015 Musculoskeletal muscle weakness 08/28/2015 Musculoskeletal bone pain 08/28/2015 Respiratory No cough 12/2014 Cardiovascular No chest pain/pressure 08/28/2015 Ears/Nose/Throat/Neck No dizziness 08/28/2015 Ears/Nose/Throat/Neck No headache 08/28/2015 Eyes No eye erythema 12/2014 Constitutional No chills 05/28/2015 Constitutional No fever 05/28/2015 Cardiovascular No chest pain/pressure 05/28/2015 Cardiovascular dyspnea 0 05/28/2015 Respiratory No cigarette smoking 05/28/2015 Respiratory No cough 12/2014 Gastrointestinal No constipation 05/28/2015 Gastrointestinal No diarrhea 05/28/2015 Genitourinary/Nephrology No dysuria 05/28/2015 Genitourinary/Nephrology No hematuria 05/28/2015 Musculoskeletal back pain 05/28/2015 Dermatologic No rash 12/2014 Dermatologic No sores Neurologic No headache 0 05/28/2015 Psychiatric anxiety 12/2014 Psychiatric depression 0 05/28/2015 Hematologic/Lymphatic No abnormal bl eeding and bruising 05/28/2015 Gastrointestinal No vomiting 05/28/2015 Gastrointestinal No nausea 05/28/2015 Genitourinary/Nephrology urinary urgency 05/28/2015 Constitutional No fever 04/23/2015 Constitutional chills Respiratory No cigarette smoking 04/23/2015 Respiratory No cough Cardiovascular dyspnea 0 04/23/2015 Cardiovascular No chest pain/pressure 04/23/2015 Gastrointestinal No constipation 04/23/2015 Gastrointestinal No diarrhea 04/23/2015 Genitourinary/Nephrology No dysuria 04/23/2015 Genitourinary/Nephrology No hematuria 04/23/2015 Musculoskeletal back pain 04/23/2015 Dermatologic No rash Dermatologic No sores Neurologic No headache 0 04/23/2015 Psychiatric depression 0 04/23/2015 Psychiatric anxiety 03/28 Hematologic/Lymphatic No abnormal bl eeding and bruising 04/23/2015 Physical Exam Exam Name System Name It em Name Status Result Effective Dates Notes Full Exam - General 1994 Constitutional general appearance Development: well developed 07/18/2019 None Full Exam - General 1994 Constitutional general appearance Development: appears older than stated age 0807/18/2019 None Full Exam - General 1994 Constitutional general appearance Nourishment: well nourished 07/18/2019 None Full Exam - General 1994 Eyes conjunctiva/eyelids Overall: conjunctiva clear 07/18/2019 None Full Exam - General 1994 Eyes conjunctiva/eyelids Overall: cornea clear 07/18/2019 None Full Exam - General 1994 Eyes conjunctiva/eyelids Overall: eyelids normal 07/18/2019 None Full Exam - General 1994 Eyes pupils and irises Overall: pupils equal, round, reactive to light and accomodation 07/18/2019 None Full Exam - General 1994 Ears/Nose/Throat lips/teeth/gingiva Overall: benign lips 07/18/2019 None Full Exam - General 1994 Ears/Nose/Throat oral cavity/pharynx/larynx Overall: oral mucosa clear 07/18/2019 None Full Exam - General 1994 Respiratory auscultation Overall: breath sounds clear bilaterally 07/18/2019 None Full Exam - General 1994 Respiratory respiratory effort/rhythm Overall: no retractions 07/18/2019 None Full Exam - General 1994 Respiratory respiratory effort/rhythm Overall: normal rate 07/18/2019 None Full Exam - General 1994 Cardiovascular auscultation of heart Overall: regular rate 07/18/2019 None Full Exam - General 1994 Cardiovascular auscultation of heart Overall: normal heart sounds 07/18/2019 None Full Exam - General 1994 Cardiovascular auscultation of heart Overall: no murmurs 07/18/2019 None Full Exam - General 1994 Abdomen abdominal exam Contour: rounded 07/18/2019 None Full Exam - General 1994 Musculoskeletal gait and station Gait: asymmetric 07/18/2019 None Full Exam - General 1994 Neurologic mental status Overall: alert 07/18/2019 None Full Exam - General 1994 Neurologic mental status Overall: oriented 07/18/2019 None Full Exam - General 1994 Neurologic motor Overall: normal bulk, tone 07/18/2019 None Full Exam - General 1994 Psychiatric orientation/consciousness Overall: oriented to person, place and time 07/18/2019 None Full Exam - General 1994 Psychiatric mood and affect Mood: flat 07/18/2019 None Full Exam - General 1994 Psychiatric mood and affect Mood: depressed 07/18/2019 None Full Exam - General 1994 Psychiatric appearance Overall: well-groomed, good eye contact 07/18/2019 None Full Exam - General 1994 Constitutional general appearance Development: well developed 05/14/2019 None Full Exam - General 1994 Constitutional general appearance Development: appears older than stated age 0605/14/2019 None Full Exam - General 1994 Constitutional general appearance Nourishment: well nourished 05/14/2019 None Full Exam - General 1994 Eyes conjunctiva/eyelids Overall: conjunctiva clear 05/14/2019 None Full Exam - General 1994 Eyes conjunctiva/eyelids Overall: cornea clear 05/14/2019 None Full Exam - General 1994 Eyes conjunctiva/eyelids Overall: eyelids normal 05/14/2019 None Full Exam - General 1994 Eyes pupils and irises Overall: pupils equal, round, reactive to light and accomodation 05/14/2019 None Full Exam - General 1994 Ears/Nose/Throat lips/teeth/gingiva Overall: benign lips 05/14/2019 None Full Exam - General 1994 Ears/Nose/Throat oral cavity/pharynx/larynx Overall: oral mucosa clear 05/14/2019 None Full Exam - General 1994 Respiratory auscultation Overall: breath sounds clear bilaterally 05/14/2019 None Full Exam - General 1994 Respiratory respiratory effort/rhythm Overall: no retractions 05/14/2019 None Full Exam - General 1994 Respiratory respiratory effort/rhythm Overall: normal rate 05/14/2019 None Full Exam - General 1994 Cardiovascular auscultation of heart Overall: regular rate 05/14/2019 None Full Exam - General 1994 Cardiovascular auscultation of heart Overall: normal heart sounds 05/14/2019 None Full Exam - General 1994 Cardiovascular auscultation of heart Overall: no murmurs 05/14/2019 None Full Exam - General 1994 Abdomen abdominal exam Contour: rounded 05/14/2019 None Full Exam - General 1994 Musculoskeletal gait and station Gait: asymmetric 05/14/2019 None Full Exam - General 1994 Neurologic mental status Overall: alert 05/14/2019 None Full Exam - General 1994 Neurologic mental status Overall: oriented 05/14/2019 None Full Exam - General 1994 Neurologic motor Overall: normal bulk, tone 05/14/2019 None Full Exam - General 1994 Psychiatric orientation/consciousness Overall: oriented to person, place and time 05/14/2019 None Full Exam - General 1994 Psychiatric mood and affect Mood: flat 05/14/2019 None Full Exam - General 1994 Psychiatric mood and affect Mood: depressed 05/14/2019 None Full Exam - General 1994 Psychiatric appearance Overall: well-groomed, good eye contact 05/14/2019 None Full Exam - General 1994 Constitutional general appearance Development: well developed 03/12/2019 None Full Exam - General 1994 Constitutional general appearance Development: appears older than stated age 0403/12/2019 None Full Exam - General 1994 Constitutional general appearance Nourishment: well nourished 03/12/2019 None Full Exam - General 1994 Eyes conjunctiva/eyelids Overall: conjunctiva clear 03/12/2019 None Full Exam - General 1994 Eyes conjunctiva/eyelids Overall: cornea clear 03/12/2019 None Full Exam - General 1994 Eyes conjunctiva/eyelids Overall: eyelids normal 03/12/2019 None Full Exam - General 1994 Eyes pupils and irises Overall: pupils equal, round, reactive to light and accomodation 03/12/2019 None Full Exam - General 1994 Ears/Nose/Throat lips/teeth/gingiva Overall: benign lips 03/12/2019 None Full Exam - General 1994 Ears/Nose/Throat oral cavity/pharynx/larynx Overall: oral mucosa clear 03/12/2019 None Full Exam - General 1994 Respiratory auscultation Overall: breath sounds clear bilaterally 03/12/2019 None Full Exam - General 1994 Respiratory respiratory effort/rhythm Overall: no retractions 03/12/2019 None Full Exam - General 1994 Respiratory respiratory effort/rhythm Overall: normal rate 03/12/2019 None Full Exam - General 1994 Cardiovascular auscultation of heart Overall: regular rate 03/12/2019 None Full Exam - General 1994 Cardiovascular auscultation of heart Overall: normal heart sounds 03/12/2019 None Full Exam - General 1994 Cardiovascular auscultation of heart Overall: no murmurs 03/12/2019 None Full Exam - General 1994 Abdomen abdominal exam Contour: rounded 03/12/2019 None Full Exam - General 1994 Musculoskeletal gait and station Gait: asymmetric 03/12/2019 None Full Exam - General 1994 Neurologic mental status Overall: alert 03/12/2019 None Full Exam - General 1994 Neurologic mental status Overall: oriented 03/12/2019 None Full Exam - General 1994 Neurologic motor Overall: normal bulk, tone 03/12/2019 None Full Exam - General 1994 Psychiatric orientation/consciousness Overall: oriented to person, place and time 03/12/2019 None Full Exam - General 1994 Psychiatric mood and affect Mood: flat 03/12/2019 None Full Exam - General 1994 Psychiatric mood and affect Mood: depressed 03/12/2019 None Full Exam - General 1994 Psychiatric appearance Overall: well-groomed, good eye contact 03/12/2019 None Full Exam - General 1994 Constitutional general appearance Development: well developed 01/07/2019 None Full Exam - General 1994 Constitutional general appearance Development: appears older than stated age 0201/07/2019 None Full Exam - General 1994 Constitutional general appearance Nourishment: well nourished 01/07/2019 None Full Exam - General 1994 Eyes conjunctiva/eyelids Overall: conjunctiva clear 01/07/2019 None Full Exam - General 1994 Eyes conjunctiva/eyelids Overall: cornea clear 01/07/2019 None Full Exam - General 1994 Eyes conjunctiva/eyelids Overall: eyelids normal 01/07/2019 None Full Exam - General 1994 Eyes pupils and irises Overall: pupils equal, round, reactive to light and accomodation 01/07/2019 None Full Exam - General 1994 Ears/Nose/Throat lips/teeth/gingiva Overall: benign lips 01/07/2019 None Full Exam - General 1994 Ears/Nose/Throat oral cavity/pharynx/larynx Overall: oral mucosa clear 01/07/2019 None Full Exam - General 1994 Respiratory auscultation Overall: breath sounds clear bilaterally 01/07/2019 None Full Exam - General 1994 Respiratory respiratory effort/rhythm Overall: no retractions 01/07/2019 None Full Exam - General 1994 Respiratory respiratory effort/rhythm Overall: normal rate 01/07/2019 None Full Exam - General 1994 Cardiovascular auscultation of heart Overall: regular rate 01/07/2019 None Full Exam - General 1994 Cardiovascular auscultation of heart Overall: normal heart sounds 01/07/2019 None Full Exam - General 1994 Cardiovascular auscultation of heart Overall: no murmurs 01/07/2019 None Full Exam - General 1994 Abdomen abdominal exam Contour: rounded 01/07/2019 None Full Exam - General 1994 Musculoskeletal gait and station Gait: asymmetric 01/07/2019 None Full Exam - General 1994 Neurologic mental status Overall: alert 01/07/2019 None Full Exam - General 1994 Neurologic mental status Overall: oriented 01/07/2019 None Full Exam - General 1994 Neurologic motor Overall: normal bulk, tone 01/07/2019 None Full Exam - General 1994 Psychiatric orientation/consciousness Overall: oriented to person, place and time 01/07/2019 None Full Exam - General 1994 Psychiatric mood and affect Mood: flat 01/07/2019 None Full Exam - General 1994 Psychiatric mood and affect Mood: depressed 01/07/2019 None Full Exam - General 1994 Psychiatric appearance Overall: well-groomed, good eye contact 01/07/2019 None Full Exam - General 1994 Constitutional general appearance Development: well developed 12/27/2018 None Full Exam - General 1994 Constitutional general appearance Development: appears older than stated age 0112/27/2018 None Full Exam - General 1994 Constitutional general appearance Nourishment: well nourished 12/27/2018 None Full Exam - General 1994 Eyes conjunctiva/eyelids Overall: conjunctiva clear 12/27/2018 None Full Exam - General 1994 Eyes conjunctiva/eyelids Overall: cornea clear 12/27/2018 None Full Exam - General 1994 Eyes conjunctiva/eyelids Overall: eyelids normal 12/27/2018 None Full Exam - General 1994 Eyes pupils and irises Overall: pupils equal, round, reactive to light and accomodation 12/27/2018 None Full Exam - General 1994 Ears/Nose/Throat lips/teeth/gingiva Overall: benign lips 12/27/2018 None Full Exam - General 1994 Ears/Nose/Throat oral cavity/pharynx/larynx Overall: oral mucosa clear 12/27/2018 None Full Exam - General 1994 Respiratory auscultation Overall: breath sounds clear bilaterally 12/27/2018 None Full Exam - General 1994 Respiratory respiratory effort/rhythm Overall: no retractions 12/27/2018 None Full Exam - General 1994 Respiratory respiratory effort/rhythm Overall: normal rate 12/27/2018 None Full Exam - General 1994 Cardiovascular auscultation of heart Overall: regular rate 12/27/2018 None Full Exam - General 1994 Cardiovascular auscultation of heart Overall: normal heart sounds 12/27/2018 None Full Exam - General 1994 Cardiovascular auscultation of heart Overall: no murmurs 12/27/2018 None Full Exam - General 1994 Abdomen abdominal exam Contour: rounded 12/27/2018 None Full Exam - General 1994 Musculoskeletal gait and station Gait: asymmetric 12/27/2018 None Full Exam - General 1994 Neurologic mental status Overall: alert 12/27/2018 None Full Exam - General 1994 Neurologic mental status Overall: oriented 12/27/2018 None Full Exam - General 1994 Neurologic motor Overall: normal bulk, tone 12/27/2018 None Full Exam - General 1994 Psychiatric orientation/consciousness Overall: oriented to person, place and time 12/27/2018 None Full Exam - General 1994 Psychiatric mood and affect Mood: flat 12/27/2018 None Full Exam - General 1994 Psychiatric mood and affect Mood: depressed 12/27/2018 None Full Exam - General 1994 Psychiatric appearance Overall: well-groomed, good eye contact 12/27/2018 None Full Exam - General 1994 Constitutional general appearance Development: well developed 11/05/2018 None Full Exam - General 1994 Constitutional general appearance Development: appears older than stated age 1211/05/2018 None Full Exam - General 1994 Constitutional general appearance Nourishment: well nourished 11/05/2018 None Full Exam - General 1994 Eyes conjunctiva/eyelids Overall: conjunctiva clear 11/05/2018 None Full Exam - General 1994 Eyes conjunctiva/eyelids Overall: cornea clear 11/05/2018 None Full Exam - General 1994 Eyes conjunctiva/eyelids Overall: eyelids normal 11/05/2018 None Full Exam - General 1994 Eyes pupils and irises Overall: pupils equal, round, reactive to light and accomodation 11/05/2018 None Full Exam - General 1994 Ears/Nose/Throat lips/teeth/gingiva Overall: benign lips 11/05/2018 None Full Exam - General 1994 Ears/Nose/Throat oral cavity/pharynx/larynx Overall: oral mucosa clear 11/05/2018 None Full Exam - General 1994 Respiratory auscultation Overall: breath sounds clear bilaterally 11/05/2018 None Full Exam - General 1994 Respiratory respiratory effort/rhythm Overall: no retractions 11/05/2018 None Full Exam - General 1994 Respiratory respiratory effort/rhythm Overall: normal rate 11/05/2018 None Full Exam - General 1994 Cardiovascular auscultation of heart Overall: regular rate 11/05/2018 None Full Exam - General 1994 Cardiovascular auscultation of heart Overall: normal heart sounds 11/05/2018 None Full Exam - General 1994 Cardiovascular auscultation of heart Overall: no murmurs 11/05/2018 None Full Exam - General 1994 Abdomen abdominal exam Contour: rounded 11/05/2018 None Full Exam - General 1994 Musculoskeletal gait and station Gait: asymmetric 11/05/2018 None Full Exam - General 1994 Neurologic mental status Overall: alert 11/05/2018 None Full Exam - General 1994 Neurologic mental status Overall: oriented 11/05/2018 None Full Exam - General 1994 Neurologic motor Overall: normal bulk, tone 11/05/2018 None Full Exam - General 1994 Psychiatric orientation/consciousness Overall: oriented to person, place and time 11/05/2018 None Full Exam - General 1994 Psychiatric mood and affect Mood: flat 11/05/2018 None Full Exam - General 1994 Psychiatric mood and affect Mood: depressed 11/05/2018 None Full Exam - General 1994 Psychiatric appearance Overall: well-groomed, good eye contact 11/05/2018 None Full Exam - General 1994 Constitutional general appearance Development: well developed 09/27/2018 None Full Exam - General 1994 Constitutional general appearance Development: appears older than stated age 1109/27/2018 None Full Exam - General 1994 Constitutional general appearance Nourishment: well nourished 09/27/2018 None Full Exam - General 1994 Eyes conjunctiva/eyelids Overall: conjunctiva clear 09/27/2018 None Full Exam - General 1994 Eyes conjunctiva/eyelids Overall: cornea clear 09/27/2018 None Full Exam - General 1994 Eyes conjunctiva/eyelids Overall: eyelids normal 09/27/2018 None Full Exam - General 1994 Eyes pupils and irises Overall: pupils equal, round, reactive to light and accomodation 09/27/2018 None Full Exam - General 1994 Ears/Nose/Throat lips/teeth/gingiva Overall: benign lips 09/27/2018 None Full Exam - General 1994 Ears/Nose/Throat oral cavity/pharynx/larynx Overall: oral mucosa clear 09/27/2018 None Full Exam - General 1994 Respiratory auscultation Overall: breath sounds clear bilaterally 09/27/2018 None Full Exam - General 1994 Respiratory respiratory effort/rhythm Overall: no retractions 09/27/2018 None Full Exam - General 1994 Respiratory respiratory effort/rhythm Overall: normal rate 09/27/2018 None Full Exam - General 1994 Cardiovascular auscultation of heart Overall: regular rate 09/27/2018 None Full Exam - General 1994 Cardiovascular auscultation of heart Overall: normal heart sounds 09/27/2018 None Full Exam - General 1994 Cardiovascular auscultation of heart Overall: no murmurs 09/27/2018 None Full Exam - General 1994 Abdomen abdominal exam Contour: rounded 09/27/2018 None Full Exam - General 1994 Musculoskeletal gait and station Gait: asymmetric 09/27/2018 None Full Exam - General 1994 Neurologic mental status Overall: alert 09/27/2018 None Full Exam - General 1994 Neurologic mental status Overall: oriented 09/27/2018 None Full Exam - General 1994 Neurologic motor Overall: normal bulk, tone 09/27/2018 None Full Exam - General 1994 Psychiatric orientation/consciousness Overall: oriented to person, place and time 09/27/2018 None Full Exam - General 1994 Psychiatric mood and affect Mood: flat 09/27/2018 None Full Exam - General 1994 Psychiatric mood and affect Mood: depressed 09/27/2018 None Full Exam - General 1994 Psychiatric appearance Overall: well-groomed, good eye contact 09/27/2018 None Full Exam - General 1994 Constitutional general appearance Development: well developed 09/17/2018 None Full Exam - General 1994 Constitutional general appearance Development: appears older than stated age 1009/17/2018 None Full Exam - General 1994 Constitutional general appearance Nourishment: well nourished 09/17/2018 None Full Exam - General 1994 Eyes conjunctiva/eyelids Overall: conjunctiva clear 09/17/2018 None Full Exam - General 1994 Eyes conjunctiva/eyelids Overall: cornea clear 09/17/2018 None Full Exam - General 1994 Eyes conjunctiva/eyelids Overall: eyelids normal 09/17/2018 None Full Exam - General 1994 Eyes pupils and irises Overall: pupils equal, round, reactive to light and accomodation 09/17/2018 None Full Exam - General 1994 Ears/Nose/Throat lips/teeth/gingiva Overall: benign lips 09/17/2018 None Full Exam - General 1994 Ears/Nose/Throat oral cavity/pharynx/larynx Overall: oral mucosa clear 09/17/2018 None Full Exam - General 1994 Respiratory auscultation Overall: breath sounds clear bilaterally 09/17/2018 None Full Exam - General 1994 Respiratory respiratory effort/rhythm Overall: no retractions 09/17/2018 None Full Exam - General 1994 Respiratory respiratory effort/rhythm Overall: normal rate 09/17/2018 None Full Exam - General 1994 Cardiovascular auscultation of heart Overall: regular rate 09/17/2018 None Full Exam - General 1994 Cardiovascular auscultation of heart Overall: normal heart sounds 09/17/2018 None Full Exam - General 1994 Cardiovascular auscultation of heart Overall: no murmurs 09/17/2018 None Full Exam - General 1994 Musculoskeletal gait and station Gait: asymmetric 09/17/2018 None Full Exam - General 1994 Neurologic mental status Overall: alert 09/17/2018 None Full Exam - General 1994 Neurologic mental status Overall: oriented 09/17/2018 None Full Exam - General 1994 Neurologic motor Overall: normal bulk, tone 09/17/2018 None Full Exam - General 1994 Psychiatric orientation/consciousness Overall: oriented to person, place and time 09/17/2018 None Full Exam - General 1994 Psychiatric mood and affect Mood: flat 09/17/2018 None Full Exam - General 1994 Psychiatric mood and affect Mood: depressed 09/17/2018 None Full Exam - General 1994 Psychiatric appearance Overall: well-groomed, good eye contact 09/17/2018 None Full Exam - General 1994 Abdomen abdominal exam Overall: no tenderness 09/17/2018 None Full Exam - General 1995 Abdomen abdominal exam Overall: normal bowel sounds 09/17/2018 None Full Exam - General 1994 Abdomen abdominal exam Contour: rounded 09/17/2018 None Full Exam - General 1994 Constitutional general appearance Development: well developed 09/03/2018 None Full Exam - General 1994 Constitutional general appearance Development: appears older than stated age 1009/03/2018 None Full Exam - General 1994 Constitutional general appearance Nourishment: well nourished 09/03/2018 None Full Exam - General 1994 Eyes conjunctiva/eyelids Overall: conjunctiva clear 09/03/2018 None Full Exam - General 1994 Eyes conjunctiva/eyelids Overall: cornea clear 09/03/2018 None Full Exam - General 1994 Eyes conjunctiva/eyelids Overall: eyelids normal 09/03/2018 None Full Exam - General 1994 Eyes pupils and irises Overall: pupils equal, round, reactive to light and accomodation 09/03/2018 None Full Exam - General 1994 Ears/Nose/Throat lips/teeth/gingiva Overall: benign lips 09/03/2018 None Full Exam - General 1994 Ears/Nose/Throat oral cavity/pharynx/larynx Overall: oral mucosa clear 09/03/2018 None Full Exam - General 1994 Respiratory auscultation Overall: breath sounds clear bilaterally 09/03/2018 None Full Exam - General 1994 Respiratory respiratory effort/rhythm Overall: no retractions 09/03/2018 None Full Exam - General 1994 Respiratory respiratory effort/rhythm Overall: normal rate 09/03/2018 None Full Exam - General 1994 Cardiovascular auscultation of heart Overall: regular rate 09/03/2018 None Full Exam - General 1994 Cardiovascular auscultation of heart Overall: normal heart sounds 09/03/2018 None Full Exam - General 1994 Cardiovascular auscultation of heart Overall: no murmurs 09/03/2018 None Full Exam - General 1994 Musculoskeletal gait and station Gait: asymmetric 09/03/2018 None Full Exam - General 1994 Neurologic mental status Overall: alert 09/03/2018 None Full Exam - General 1994 Neurologic mental status Overall: oriented 09/03/2018 None Full Exam - General 1994 Neurologic motor Overall: normal bulk, tone 09/03/2018 None Full Exam - General 1994 Psychiatric orientation/consciousness Overall: oriented to person, place and time 09/03/2018 None Full Exam - General 1994 Psychiatric mood and affect Mood: flat 09/03/2018 None Full Exam - General 1994 Psychiatric mood and affect Mood: depressed 09/03/2018 None Full Exam - General 1994 Psychiatric appearance Overall: well-groomed, good eye contact 09/03/2018 None Full Exam - General 1994 Abdomen abdominal exam Contour: rounded 09/03/2018 None Full Exam - General 1994 Constitutional general appearance Development: well developed 07/05/2018 None Full Exam - General 1994 Constitutional general appearance Development: appears older than stated age 0807/05/2018 None Full Exam - General 1994 Constitutional general appearance Nourishment: well nourished 07/05/2018 None Full Exam - General 1994 Eyes conjunctiva/eyelids Overall: conjunctiva clear 07/05/2018 None Full Exam - General 1994 Eyes conjunctiva/eyelids Overall: cornea clear 07/05/2018 None Full Exam - General 1994 Eyes conjunctiva/eyelids Overall: eyelids normal 07/05/2018 None Full Exam - General 1994 Eyes pupils and irises Overall: pupils equal, round, reactive to light and accomodation 07/05/2018 None Full Exam - General 1994 Ears/Nose/Throat lips/teeth/gingiva Overall: benign lips 07/05/2018 None Full Exam - General 1994 Ears/Nose/Throat oral cavity/pharynx/larynx Overall: oral mucosa clear 07/05/2018 None Full Exam - General 1994 Respiratory auscultation Overall: breath sounds clear bilaterally 07/05/2018 None Full Exam - General 1994 Respiratory respiratory effort/rhythm Overall: no retractions 07/05/2018 None Full Exam - General 1994 Respiratory respiratory effort/rhythm Overall: normal rate 07/05/2018 None Full Exam - General 1994 Cardiovascular auscultation of heart Overall: regular rate 07/05/2018 None Full Exam - General 1994 Cardiovascular auscultation of heart Overall: normal heart sounds 07/05/2018 None Full Exam - General 1994 Cardiovascular auscultation of heart Overall: no murmurs 07/05/2018 None Full Exam - General 1994 Musculoskeletal gait and station Gait: asymmetric 07/05/2018 None Full Exam - General 1994 Neurologic mental status Overall: alert 07/05/2018 None Full Exam - General 1994 Neurologic mental status Overall: oriented 07/05/2018 None Full Exam - General 1994 Neurologic motor Overall: normal bulk, tone 07/05/2018 None Full Exam - General 1994 Psychiatric orientation/consciousness Overall: oriented to person, place and time 07/05/2018 None Full Exam - General 1994 Psychiatric mood and affect Mood: flat 07/05/2018 None Full Exam - General 1994 Psychiatric mood and affect Mood: depressed 07/05/2018 None Full Exam - General 1994 Psychiatric appearance Overall: well-groomed, good eye contact 07/05/2018 None Full Exam - General 1994 Constitutional general appearance Development: well developed 05/04/2018 None Full Exam - General 1994 Constitutional general appearance Development: appears older than stated age 0605/04/2018 None Full Exam - General 1994 Constitutional general appearance Nourishment: well nourished 05/04/2018 None Full Exam - General 1994 Eyes conjunctiva/eyelids Overall: conjunctiva clear 05/04/2018 None Full Exam - General 1994 Eyes conjunctiva/eyelids Overall: cornea clear 05/04/2018 None Full Exam - General 1994 Eyes conjunctiva/eyelids Overall: eyelids normal 05/04/2018 None Full Exam - General 1994 Eyes pupils and irises Overall: pupils equal, round, reactive to light and accomodation 05/04/2018 None Full Exam - General 1994 Ears/Nose/Throat lips/teeth/gingiva Overall: benign lips 05/04/2018 None Full Exam - General 1994 Ears/Nose/Throat oral cavity/pharynx/larynx Overall: oral mucosa clear 05/04/2018 None Full Exam - General 1994 Respiratory auscultation Overall: breath sounds clear bilaterally 05/04/2018 None Full Exam - General 1994 Respiratory respiratory effort/rhythm Overall: no retractions 05/04/2018 None Full Exam - General 1994 Respiratory respiratory effort/rhythm Overall: normal rate 05/04/2018 None Full Exam - General 1994 Cardiovascular auscultation of heart Overall: regular rate 05/04/2018 None Full Exam - General 1994 Cardiovascular auscultation of heart Overall: normal heart sounds 05/04/2018 None Full Exam - General 1994 Cardiovascular auscultation of heart Overall: no murmurs 05/04/2018 None Full Exam - General 1994 Musculoskeletal gait and station Gait: asymmetric 05/04/2018 None Full Exam - General 1994 Neurologic mental status Overall: alert 05/04/2018 None Full Exam - General 1994 Neurologic mental status Overall: oriented 05/04/2018 None Full Exam - General 1994 Neurologic motor Overall: normal bulk, tone 05/04/2018 None Full Exam - General 1994 Psychiatric orientation/consciousness Overall: oriented to person, place and time 05/04/2018 None Full Exam - General 1994 Psychiatric mood and affect Mood: flat 05/04/2018 None Full Exam - General 1994 Psychiatric mood and affect Mood: depressed 05/04/2018 None Full Exam - General 1994 Psychiatric appearance Overall: well-groomed, good eye contact 05/04/2018 None Full Exam - General 1994 Constitutional general appearance Overall: well developed 03/28/2018 None Full Exam - General 1994 Constitutional general appearance Overall: in no acute distress 03/28/2018 None Full Exam - General 1994 Constitutional general appearance Overall: well nourished 03/28/2018 None Full Exam - General 1994 Eyes conjunctiva/eyelids Overall: conjunctiva clear 03/28/2018 None Full Exam - General 1994 Eyes conjunctiva/eyelids Overall: cornea clear 03/28/2018 None Full Exam - General 1994 Eyes conjunctiva/eyelids Overall: eyelids normal 03/28/2018 None Full Exam - General 1994 Ears/Nose/Throat lips/teeth/gingiva Overall: benign lips 03/28/2018 None Full Exam - General 1994 Ears/Nose/Throat oral cavity/pharynx/larynx Overall: oral mucosa clear 03/28/2018 None Full Exam - General 1994 Ears/Nose/Throat oral cavity/pharynx/larynx Overall: oropharyngeal mucosa clear 03/28/2018 None Full Exam - General 1994 Respiratory auscultation Overall: breath sounds clear bilaterally 03/28/2018 None Full Exam - General 1994 Respiratory auscultation Diffuse: diminished 03/28/2018 None Full Exam - General 1994 Respiratory respiratory effort/rhythm Overall: no retractions 03/28/2018 None Full Exam - General 1994 Respiratory respiratory effort/rhythm Overall: normal rate 03/28/2018 None Full Exam - General 1994 Cardiovascular auscultation of heart Overall: regular rate 03/28/2018 None Full Exam - General 1994 Cardiovascular auscultation of heart Overall: normal heart sounds 03/28/2018 None Full Exam - General 1994 Abdomen abdominal exam Overall: normal bowel sounds 03/28/2018 None Full Exam - General 1994 Abdomen abdominal exam Overall: no tenderness 03/28/2018 None Full Exam - General 1994 Musculoskeletal head and neck Overall: head atraumatic 03/28/2018 None Full Exam - General 1994 Neurologic cranial nerves Overall: crainial nerves 2 - 12 grossly intact 03/28/2018 None Full Exam - General 1994 Psychiatric orientation/consciousness Overall: oriented to person, place and time 03/28/2018 None Full Exam - General 1994 Psychiatric mood and affect Overall: normal mood and affect 03/28/2018 None Full Exam - General 1994 Constitutional general appearance Development: well developed 02/27/2018 None Full Exam - General 1994 Constitutional general appearance Development: appears older than stated age 0402/27/2018 None Full Exam - General 1994 Constitutional general appearance Nourishment: well nourished 02/27/2018 None Full Exam - General 1994 Eyes conjunctiva/eyelids Overall: conjunctiva clear 02/27/2018 None Full Exam - General 1994 Eyes conjunctiva/eyelids Overall: cornea clear 02/27/2018 None Full Exam - General 1994 Eyes conjunctiva/eyelids Overall: eyelids normal 02/27/2018 None Full Exam - General 1994 Eyes pupils and irises Overall: pupils equal, round, reactive to light and accomodation 02/27/2018 None Full Exam - General 1994 Ears/Nose/Throat lips/teeth/gingiva Overall: benign lips 02/27/2018 None Full Exam - General 1994 Ears/Nose/Throat oral cavity/pharynx/larynx Overall: oral mucosa clear 02/27/2018 None Full Exam - General 1994 Respiratory auscultation Overall: breath sounds clear bilaterally 02/27/2018 None Full Exam - General 1994 Respiratory respiratory effort/rhythm Overall: no retractions 02/27/2018 None Full Exam - General 1994 Respiratory respiratory effort/rhythm Overall: normal rate 02/27/2018 None Full Exam - General 1994 Cardiovascular auscultation of heart Overall: regular rate 02/27/2018 None Full Exam - General 1994 Cardiovascular auscultation of heart Overall: normal heart sounds 02/27/2018 None Full Exam - General 1994 Cardiovascular auscultation of heart Overall: no murmurs 02/27/2018 None Full Exam - General 1994 Musculoskeletal gait and station Gait: asymmetric 02/27/2018 None Full Exam - General 1994 Neurologic mental status Overall: alert 02/27/2018 None Full Exam - General 1994 Neurologic mental status Overall: oriented 02/27/2018 None Full Exam - General 1994 Neurologic motor Overall: normal bulk, tone 02/27/2018 None Full Exam - General 1994 Psychiatric orientation/consciousness Overall: oriented to person, place and time 02/27/2018 None Full Exam - General 1994 Psychiatric mood and affect Mood: flat 02/27/2018 None Full Exam - General 1994 Psychiatric mood and affect Mood: depressed 02/27/2018 None Full Exam - General 1994 Psychiatric appearance Overall: well-groomed, good eye contact 02/27/2018 None Full Exam - General 1994 Constitutional general appearance Development: well developed 12/01/2017 None Full Exam - General 1994 Constitutional general appearance Development: appears older than stated age 0112/01/2017 None Full Exam - General 1994 Constitutional general appearance Nourishment: well nourished 12/01/2017 None Full Exam - General 1994 Eyes conjunctiva/eyelids Overall: conjunctiva clear 12/01/2017 None Full Exam - General 1994 Eyes conjunctiva/eyelids Overall: cornea clear 12/01/2017 None Full Exam - General 1994 Eyes conjunctiva/eyelids Overall: eyelids normal 12/01/2017 None Full Exam - General 1994 Eyes pupils and irises Overall: pupils equal, round, reactive to light and accomodation 12/01/2017 None Full Exam - General 1994 Ears/Nose/Throat oral cavity/pharynx/larynx Overall: oral mucosa clear 12/01/2017 None Full Exam - General 1994 Respiratory auscultation Overall: breath sounds clear bilaterally 12/01/2017 None Full Exam - General 1994 Respiratory respiratory effort/rhythm Overall: no retractions 12/01/2017 None Full Exam - General 1994 Respiratory respiratory effort/rhythm Overall: normal rate 12/01/2017 None Full Exam - General 1994 Cardiovascular auscultation of heart Overall: regular rate 12/01/2017 None Full Exam - General 1994 Cardiovascular auscultation of heart Overall: normal heart sounds 12/01/2017 None Full Exam - General 1994 Cardiovascular auscultation of heart Overall: no murmurs 12/01/2017 None Full Exam - General 1994 Musculoskeletal gait and station Gait: asymmetric 12/01/2017 None Full Exam - General 1994 Neurologic mental status Overall: alert 12/01/2017 None Full Exam - General 1994 Neurologic mental status Overall: oriented 12/01/2017 None Full Exam - General 1994 Neurologic motor Overall: normal bulk, tone 12/01/2017 None Full Exam - General 1994 Psychiatric orientation/consciousness Overall: oriented to person, place and time 12/01/2017 None Full Exam - General 1994 Psychiatric mood and affect Mood: flat 12/01/2017 None Full Exam - General 1994 Psychiatric mood and affect Mood: depressed 12/01/2017 None Full Exam - General 1994 Psychiatric appearance Overall: well-groomed, good eye contact 12/01/2017 None Full Exam - General 1994 Ears/Nose/Throat lips/teeth/gingiva Overall: benign lips 12/01/2017 None Full Exam - General 1994 Constitutional general appearance Development: well developed 09/29/2017 None Full Exam - General 1994 Constitutional general appearance Development: appears older than stated age 1109/29/2017 None Full Exam - General 1994 Constitutional general appearance Nourishment: well nourished 09/29/2017 None Full Exam - General 1994 Eyes conjunctiva/eyelids Overall: conjunctiva clear 09/29/2017 None Full Exam - General 1994 Eyes conjunctiva/eyelids Overall: cornea clear 09/29/2017 None Full Exam - General 1994 Eyes conjunctiva/eyelids Overall: eyelids normal 09/29/2017 None Full Exam - General 1994 Eyes pupils and irises Overall: pupils equal, round, reactive to light and accomodation 09/29/2017 None Full Exam - General 1994 Ears/Nose/Throat otoscopic exam Overall: external auditory canals clear 09/29/2017 None Full Exam - General 1994 Ears/Nose/Throat otoscopic exam Overall: tympanic membranes clear 09/29/2017 None Full Exam - General 1994 Ears/Nose/Throat oral cavity/pharynx/larynx Overall: oral mucosa clear 09/29/2017 None Full Exam - General 1994 Respiratory auscultation Overall: breath sounds clear bilaterally 09/29/2017 None Full Exam - General 1994 Respiratory respiratory effort/rhythm Overall: no retractions 09/29/2017 None Full Exam - General 1994 Respiratory respiratory effort/rhythm Overall: normal rate 09/29/2017 None Full Exam - General 1994 Cardiovascular auscultation of heart Overall: regular rate 09/29/2017 None Full Exam - General 1994 Cardiovascular auscultation of heart Overall: normal heart sounds 09/29/2017 None Full Exam - General 1994 Cardiovascular auscultation of heart Overall: no murmurs 09/29/2017 None Full Exam - General 1994 Abdomen abdominal exam Overall: no tenderness 09/29/2017 None Full Exam - General 1994 Abdomen abdominal exam Overall: normal bowel sounds 09/29/2017 None Full Exam - General 1994 Musculoskeletal gait and station Gait: asymmetric 09/29/2017 None Full Exam - General 1994 Neurologic mental status Overall: alert 09/29/2017 None Full Exam - General 1994 Neurologic mental status Overall: oriented 09/29/2017 None Full Exam - General 1994 Neurologic motor Overall: normal bulk, tone 09/29/2017 None Full Exam - General 1994 Psychiatric orientation/consciousness Overall: oriented to person, place and time 09/29/2017 None Full Exam - General 1994 Psychiatric mood and affect Mood: flat 09/29/2017 None Full Exam - General 1994 Psychiatric mood and affect Mood: depressed 09/29/2017 None Full Exam - General 1994 Psychiatric appearance Overall: well-groomed, good eye contact 09/29/2017 None Full Exam - General 1994 Constitutional general appearance Development: well developed 08/11/2017 None Full Exam - General 1994 Constitutional general appearance Development: appears older than stated age 0908/11/2017 None Full Exam - General 1994 Constitutional general appearance Nourishment: well nourished 08/11/2017 None Full Exam - General 1994 Eyes conjunctiva/eyelids Overall: conjunctiva clear 08/11/2017 None Full Exam - General 1994 Eyes conjunctiva/eyelids Overall: cornea clear 08/11/2017 None Full Exam - General 1994 Eyes conjunctiva/eyelids Overall: eyelids normal 08/11/2017 None Full Exam - General 1994 Eyes pupils and irises Overall: pupils equal, round, reactive to light and accomodation 08/11/2017 None Full Exam - General 1994 Ears/Nose/Throat otoscopic exam Overall: external auditory canals clear 08/11/2017 None Full Exam - General 1994 Ears/Nose/Throat otoscopic exam Overall: tympanic membranes clear 08/11/2017 None Full Exam - General 1994 Ears/Nose/Throat oral cavity/pharynx/larynx Overall: oral mucosa clear 08/11/2017 None Full Exam - General 1994 Respiratory auscultation Overall: breath sounds clear bilaterally 08/11/2017 None Full Exam - General 1994 Respiratory respiratory effort/rhythm Overall: no retractions 08/11/2017 None Full Exam - General 1994 Respiratory respiratory effort/rhythm Overall: normal rate 08/11/2017 None Full Exam - General 1994 Cardiovascular auscultation of heart Overall: regular rate 08/11/2017 None Full Exam - General 1994 Cardiovascular auscultation of heart Overall: normal heart sounds 08/11/2017 None Full Exam - General 1994 Cardiovascular auscultation of heart Overall: no murmurs 08/11/2017 None Full Exam - General 1994 Abdomen abdominal exam Overall: no tenderness 08/11/2017 None Full Exam - General 1994 Abdomen abdominal exam Overall: normal bowel sounds 08/11/2017 None Full Exam - General 1994 Musculoskeletal gait and station Gait: asymmetric 08/11/2017 None Full Exam - General 1994 Neurologic mental status Overall: alert 08/11/2017 None Full Exam - General 1994 Neurologic mental status Overall: oriented 08/11/2017 None Full Exam - General 1994 Neurologic motor Overall: normal bulk, tone 08/11/2017 None Full Exam - General 1994 Psychiatric orientation/consciousness Overall: oriented to person, place and time 08/11/2017 None Full Exam - General 1994 Psychiatric mood and affect Mood: flat 08/11/2017 None Full Exam - General 1994 Psychiatric mood and affect Mood: depressed 08/11/2017 None Full Exam - General 1994 Psychiatric appearance Overall: well-groomed, good eye contact 08/11/2017 None Full Exam - General 1994 Constitutional general appearance Development: well developed 06/09/2017 None Full Exam - General 1994 Constitutional general appearance Development: appears older than stated age 0706/09/2017 None Full Exam - General 1994 Constitutional general appearance Nourishment: well nourished 06/09/2017 None Full Exam - General 1994 Eyes conjunctiva/eyelids Overall: conjunctiva clear 06/09/2017 None Full Exam - General 1994 Eyes conjunctiva/eyelids Overall: cornea clear 06/09/2017 None Full Exam - General 1994 Eyes conjunctiva/eyelids Overall: eyelids normal 06/09/2017 None Full Exam - General 1994 Eyes pupils and irises Overall: pupils equal, round, reactive to light and accomodation 06/09/2017 None Full Exam - General 1994 Ears/Nose/Throat otoscopic exam Overall: external auditory canals clear 06/09/2017 None Full Exam - General 1994 Ears/Nose/Throat otoscopic exam Overall: tympanic membranes clear 06/09/2017 None Full Exam - General 1994 Ears/Nose/Throat oral cavity/pharynx/larynx Overall: oral mucosa clear 06/09/2017 None Full Exam - General 1994 Respiratory auscultation Overall: breath sounds clear bilaterally 06/09/2017 None Full Exam - General 1994 Respiratory respiratory effort/rhythm Overall: no retractions 06/09/2017 None Full Exam - General 1994 Respiratory respiratory effort/rhythm Overall: normal rate 06/09/2017 None Full Exam - General 1994 Cardiovascular auscultation of heart Overall: regular rate 06/09/2017 None Full Exam - General 1994 Cardiovascular auscultation of heart Overall: normal heart sounds 06/09/2017 None Full Exam - General 1994 Cardiovascular auscultation of heart Overall: no murmurs 06/09/2017 None Full Exam - General 1994 Abdomen abdominal exam Overall: no tenderness 06/09/2017 None Full Exam - General 1994 Abdomen abdominal exam Overall: normal bowel sounds 06/09/2017 None Full Exam - General 1994 Musculoskeletal gait and station Gait: asymmetric 06/09/2017 None Full Exam - General 1994 Neurologic mental status Overall: alert 06/09/2017 None Full Exam - General 1994 Neurologic mental status Overall: oriented 06/09/2017 None Full Exam - General 1994 Neurologic motor Overall: normal bulk, tone 06/09/2017 None Full Exam - General 1994 Psychiatric orientation/consciousness Overall: oriented to person, place and time 06/09/2017 None Full Exam - General 1994 Psychiatric mood and affect Mood: flat 06/09/2017 None Full Exam - General 1994 Psychiatric mood and affect Mood: depressed 06/09/2017 None Full Exam - General 1994 Psychiatric appearance Overall: well-groomed, good eye contact 06/09/2017 None Full Exam - General 1994 Constitutional general appearance Development: well developed 04/07/2017 None Full Exam - General 1994 Constitutional general appearance Development: appears older than stated age 0504/07/2017 None Full Exam - General 1994 Constitutional general appearance Nourishment: well nourished 04/07/2017 None Full Exam - General 1994 Eyes conjunctiva/eyelids Overall: conjunctiva clear 04/07/2017 None Full Exam - General 1994 Eyes conjunctiva/eyelids Overall: cornea clear 04/07/2017 None Full Exam - General 1994 Eyes conjunctiva/eyelids Overall: eyelids normal 04/07/2017 None Full Exam - General 1994 Eyes pupils and irises Overall: pupils equal, round, reactive to light and accomodation 04/07/2017 None Full Exam - General 1994 Ears/Nose/Throat otoscopic exam Overall: external auditory canals clear 04/07/2017 None Full Exam - General 1994 Ears/Nose/Throat otoscopic exam Overall: tympanic membranes clear 04/07/2017 None Full Exam - General 1994 Ears/Nose/Throat oral cavity/pharynx/larynx Overall: oral mucosa clear 04/07/2017 None Full Exam - General 1994 Respiratory auscultation Overall: breath sounds clear bilaterally 04/07/2017 None Full Exam - General 1994 Respiratory respiratory effort/rhythm Overall: no retractions 04/07/2017 None Full Exam - General 1994 Respiratory respiratory effort/rhythm Overall: normal rate 04/07/2017 None Full Exam - General 1994 Cardiovascular auscultation of heart Overall: regular rate 04/07/2017 None Full Exam - General 1994 Cardiovascular auscultation of heart Overall: normal heart sounds 04/07/2017 None Full Exam - General 1994 Cardiovascular auscultation of heart Overall: no murmurs 04/07/2017 None Full Exam - General 1994 Abdomen abdominal exam Overall: no tenderness 04/07/2017 None Full Exam - General 1994 Abdomen abdominal exam Overall: normal bowel sounds 04/07/2017 None Full Exam - General 1994 Musculoskeletal gait and station Gait: asymmetric 04/07/2017 None Full Exam - General 1994 Neurologic mental status Overall: alert 04/07/2017 None Full Exam - General 1994 Neurologic mental status Overall: oriented 04/07/2017 None Full Exam - General 1994 Neurologic motor Overall: normal bulk, tone 04/07/2017 None Full Exam - General 1994 Psychiatric orientation/consciousness Overall: oriented to person, place and time 04/07/2017 None Full Exam - General 1994 Psychiatric mood and affect Mood: flat 04/07/2017 None Full Exam - General 1994 Psychiatric mood and affect Mood: depressed 04/07/2017 None Full Exam - General 1994 Psychiatric appearance Overall: well-groomed, good eye contact 04/07/2017 None Full Exam - Dermatology Constitutional general appearance Overall: well nourished 11/17/2016 None Full Exam - Dermatology Constitutional general appearance Overall: well developed 11/17/2016 None Full Exam - Dermatology Constitutional general appearance Overall: in no acute distress 11/17/2016 None Full Exam - Dermatology Constitutional general appearance Overall: of normal body habitus 11/17/2016 None Full Exam - Dermatology Integument insp & palp - left upper extremity Distribution: localized 11/17/2016 1cm thorn removed for left forearm - Full Exam - Dermatology Integument insp & palp - left upper extremity Location: on the forearm 11/17/2016 None Full Exam - Dermatology Integument insp & palp - left upper extremity Color: erythematous 11/17/2016 None Full Exam - Dermatology Psychiatric orientation Overall: oriented to person, place and time 11/17/2016 None Full Exam - Dermatology Constitutional general appearance Overall: well nourished 11/10/2016 None Full Exam - Dermatology Constitutional general appearance Overall: well developed 11/10/2016 None Full Exam - Dermatology Constitutional general appearance Overall: in no acute distress 11/10/2016 None Full Exam - Dermatology Constitutional general appearance Overall: of normal body habitus 11/10/2016 None Full Exam - Dermatology Psychiatric orientation Overall: oriented to person, place and time 11/10/2016 None Full Exam - Dermatology Integument insp & palp - left upper extremity Lesion: cyst 11/10/2016 None Full Exam - Dermatology Integument insp & palp - left upper extremity Distribution: localized 11/10/2016 None Full Exam - Dermatology Integument insp & palp - left upper extremity Location: on the forearm 11/10/2016 None Full Exam - Dermatology Integument insp & palp - left upper extremity Color: erythematous 11/10/2016 None Full Exam - General 1994 Constitutional general appearance Development: well developed 10/14/2016 None Full Exam - General 1994 Constitutional general appearance Nourishment: well nourished 10/14/2016 None Full Exam - General 1994 Eyes conjunctiva/eyelids Overall: conjunctiva clear 10/14/2016 None Full Exam - General 1994 Eyes conjunctiva/eyelids Overall: cornea clear 10/14/2016 None Full Exam - General 1994 Eyes conjunctiva/eyelids Overall: eyelids normal 10/14/2016 None Full Exam - General 1994 Eyes pupils and irises Overall: pupils equal, round, reactive to light and accomodation 10/14/2016 None Full Exam - General 1994 Ears/Nose/Throat otoscopic exam Overall: external auditory canals clear 10/14/2016 None Full Exam - General 1994 Ears/Nose/Throat otoscopic exam Overall: tympanic membranes clear 10/14/2016 None Full Exam - General 1994 Ears/Nose/Throat oral cavity/pharynx/larynx Overall: oral mucosa clear 10/14/2016 None Full Exam - General 1994 Respiratory respiratory effort/rhythm Overall: no retractions 10/14/2016 None Full Exam - General 1994 Respiratory respiratory effort/rhythm Overall: normal rate 10/14/2016 None Full Exam - General 1994 Respiratory auscultation Overall: breath sounds clear bilaterally 10/14/2016 None Full Exam - General 1994 Cardiovascular auscultation of heart Overall: regular rate 10/14/2016 None Full Exam - General 1994 Cardiovascular auscultation of heart Overall: normal heart sounds 10/14/2016 None Full Exam - General 1994 Cardiovascular auscultation of heart Overall: no murmurs 10/14/2016 None Full Exam - General 1994 Abdomen abdominal exam Overall: no tenderness 10/14/2016 None Full Exam - General 1994 Abdomen abdominal exam Overall: normal bowel sounds 10/14/2016 None Full Exam - General 1994 Neurologic mental status Overall: alert 10/14/2016 None Full Exam - General 1994 Neurologic mental status Overall: oriented 10/14/2016 None Full Exam - General 1994 Neurologic motor Overall: normal bulk, tone 10/14/2016 None Full Exam - General 1994 Psychiatric orientation/consciousness Overall: oriented to person, place and time 10/14/2016 None Full Exam - General 1994 Psychiatric mood and affect Mood: flat 10/14/2016 None Full Exam - General 1994 Psychiatric mood and affect Mood: depressed 10/14/2016 None Full Exam - General 1994 Psychiatric appearance Overall: well-groomed, good eye contact 10/14/2016 None Full Exam - General 1994 Constitutional general appearance Development: appears older than stated age 1110/14/2016 None Full Exam - General 1994 Musculoskeletal gait and station Gait: asymmetric 10/14/2016 None Full Exam - General 1994 Constitutional general appearance Development: appears older than stated age 1009/16/2016 None Full Exam - General 1994 Constitutional general appearance Overall: in no acute distress 09/16/2016 None Full Exam - General 1994 Constitutional general appearance Overall: well nourished 09/16/2016 None Full Exam - General 1994 Eyes conjunctiva/eyelids Overall: conjunctiva clear 09/16/2016 None Full Exam - General 1994 Eyes conjunctiva/eyelids Overall: cornea clear 09/16/2016 None Full Exam - General 1994 Eyes conjunctiva/eyelids Overall: eyelids normal 09/16/2016 None Full Exam - General 1994 Eyes pupils and irises Overall: pupils equal, round, reactive to light and accomodation 09/16/2016 None Full Exam - General 1994 Ears/Nose/Throat otoscopic exam Overall: external auditory canals clear 09/16/2016 None Full Exam - General 1994 Ears/Nose/Throat otoscopic exam Overall: tympanic membranes clear 09/16/2016 None Full Exam - General 1994 Ears/Nose/Throat lips/teeth/gingiva Overall: benign lips 09/16/2016 None Full Exam - General 1994 Ears/Nose/Throat lips/teeth/gingiva Overall: normal dentition 09/16/2016 None Full Exam - General 1994 Ears/Nose/Throat lips/teeth/gingiva Overall: benign gingiva 09/16/2016 None Full Exam - General 1994 Ears/Nose/Throat lips/teeth/gingiva Overall: no masses 09/16/2016 None Full Exam - General 1994 Ears/Nose/Throat oral cavity/pharynx/larynx Overall: oral mucosa clear 09/16/2016 None Full Exam - General 1994 Ears/Nose/Throat oral cavity/pharynx/larynx Overall: oropharyngeal mucosa clear 09/16/2016 None Full Exam - General 1994 Ears/Nose/Throat oral cavity/pharynx/larynx Overall: no masses 09/16/2016 None Full Exam - General 1994 Respiratory auscultation Upper lung field: Breath sounds clear 09/16/2016 None Full Exam - General 1994 Respiratory auscultation Lower lung field: expiratory wheezes 09/16/2016 None Full Exam - General 1994 Respiratory respiratory effort/rhythm Overall: no retractions 09/16/2016 None Full Exam - General 1994 Respiratory respiratory effort/rhythm Overall: normal rate 09/16/2016 None Full Exam - General 1994 Cardiovascular extremities Overall: no clubbing 09/16/2016 None Full Exam - General 1994 Cardiovascular auscultation of heart Overall: regular rate 09/16/2016 None Full Exam - General 1994 Cardiovascular auscultation of heart Overall: normal heart sounds 09/16/2016 None Full Exam - General 1994 Cardiovascular auscultation of heart Overall: no murmurs 09/16/2016 None Full Exam - General 1994 Musculoskeletal gait and station Overall: normal gait 09/16/2016 None Full Exam - General 1994 Musculoskeletal gait and station Overall: normal station 09/16/2016 None Full Exam - General 1994 Integument inspection of skin Overall: no rash, lesions 09/16/2016 None Full Exam - General 1994 Psychiatric orientation/consciousness Overall: oriented to person, place and time 09/16/2016 None Full Exam - General 1994 Psychiatric mood and affect Overall: normal mood and affect 09/16/2016 None Full Exam - General 1994 Psychiatric mood and affect Mood: depressed 09/16/2016 None Full Exam - General 1994 Psychiatric mood and affect Affect: flat 09/16/2016 None Full Exam - General 1994 Psychiatric appearance Overall: well-groomed, good eye contact 09/16/2016 None Full Exam - General 1994 Constitutional general appearance Development: appears older than stated age 0908/19/2016 None Full Exam - General 1994 Constitutional general appearance Overall: in no acute distress 08/19/2016 None Full Exam - General 1994 Constitutional general appearance Overall: well nourished 08/19/2016 None Full Exam - General 1994 Eyes conjunctiva/eyelids Overall: conjunctiva clear 08/19/2016 None Full Exam - General 1994 Eyes conjunctiva/eyelids Overall: cornea clear 08/19/2016 None Full Exam - General 1994 Eyes conjunctiva/eyelids Overall: eyelids normal 08/19/2016 None Full Exam - General 1994 Eyes pupils and irises Overall: pupils equal, round, reactive to light and accomodation 08/19/2016 None Full Exam - General 1994 Ears/Nose/Throat otoscopic exam Overall: external auditory canals clear 08/19/2016 None Full Exam - General 1994 Ears/Nose/Throat otoscopic exam Overall: tympanic membranes clear 08/19/2016 None Full Exam - General 1994 Ears/Nose/Throat lips/teeth/gingiva Overall: benign lips 08/19/2016 None Full Exam - General 1994 Ears/Nose/Throat lips/teeth/gingiva Overall: normal dentition 08/19/2016 None Full Exam - General 1994 Ears/Nose/Throat lips/teeth/gingiva Overall: benign gingiva 08/19/2016 None Full Exam - General 1994 Ears/Nose/Throat lips/teeth/gingiva Overall: no masses 08/19/2016 None Full Exam - General 1994 Ears/Nose/Throat oral cavity/pharynx/larynx Overall: oral mucosa clear 08/19/2016 None Full Exam - General 1994 Ears/Nose/Throat oral cavity/pharynx/larynx Overall: oropharyngeal mucosa clear 08/19/2016 None Full Exam - General 1994 Ears/Nose/Throat oral cavity/pharynx/larynx Overall: no masses 08/19/2016 None Full Exam - General 1994 Respiratory auscultation Upper lung field: Breath sounds clear 08/19/2016 None Full Exam - General 1994 Respiratory auscultation Lower lung field: expiratory wheezes 08/19/2016 None Full Exam - General 1994 Respiratory respiratory effort/rhythm Overall: no retractions 08/19/2016 None Full Exam - General 1994 Respiratory respiratory effort/rhythm Overall: normal rate 08/19/2016 None Full Exam - General 1994 Cardiovascular extremities Overall: no clubbing 08/19/2016 None Full Exam - General 1994 Cardiovascular auscultation of heart Overall: regular rate 08/19/2016 None Full Exam - General 1994 Cardiovascular auscultation of heart Overall: normal heart sounds 08/19/2016 None Full Exam - General 1994 Cardiovascular auscultation of heart Overall: no murmurs 08/19/2016 None Full Exam - General 1994 Musculoskeletal gait and station Overall: normal gait 08/19/2016 None Full Exam - General 1994 Musculoskeletal gait and station Overall: normal station 08/19/2016 None Full Exam - General 1994 Integument inspection of skin Overall: no rash, lesions 08/19/2016 None Full Exam - General 1994 Psychiatric orientation/consciousness Overall: oriented to person, place and time 08/19/2016 None Full Exam - General 1994 Psychiatric mood and affect Overall: normal mood and affect 08/19/2016 None Full Exam - General 1994 Psychiatric mood and affect Mood: depressed 08/19/2016 None Full Exam - General 1994 Psychiatric mood and affect Affect: flat 08/19/2016 None Full Exam - General 1994 Psychiatric appearance Overall: well-groomed, good eye contact 08/19/2016 None Full Exam - General 1994 Constitutional general appearance Development: appears older than stated age 0706/17/2016 None Full Exam - General 1994 Constitutional general appearance Overall: in no acute distress 06/17/2016 None Full Exam - General 1994 Constitutional general appearance Overall: well nourished 06/17/2016 None Full Exam - General 1994 Constitutional general appearance Hygiene/Attention to Grooming: poor hygiene 06/17/2016 None Full Exam - General 1994 Eyes conjunctiva/eyelids Overall: conjunctiva clear 06/17/2016 None Full Exam - General 1994 Eyes conjunctiva/eyelids Overall: cornea clear 06/17/2016 None Full Exam - General 1994 Eyes conjunctiva/eyelids Overall: eyelids normal 06/17/2016 None Full Exam - General 1994 Eyes pupils and irises Overall: pupils equal, round, reactive to light and accomodation 06/17/2016 None Full Exam - General 1994 Ears/Nose/Throat otoscopic exam Overall: external auditory canals clear 06/17/2016 None Full Exam - General 1994 Ears/Nose/Throat otoscopic exam Overall: tympanic membranes clear 06/17/2016 None Full Exam - General 1994 Ears/Nose/Throat lips/teeth/gingiva Overall: benign lips 06/17/2016 None Full Exam - General 1994 Ears/Nose/Throat lips/teeth/gingiva Overall: normal dentition 06/17/2016 None Full Exam - General 1994 Ears/Nose/Throat lips/teeth/gingiva Overall: benign gingiva 06/17/2016 None Full Exam - General 1994 Ears/Nose/Throat lips/teeth/gingiva Overall: no masses 06/17/2016 None Full Exam - General 1994 Ears/Nose/Throat oral cavity/pharynx/larynx Overall: oral mucosa clear 06/17/2016 None Full Exam - General 1994 Ears/Nose/Throat oral cavity/pharynx/larynx Overall: oropharyngeal mucosa clear 06/17/2016 None Full Exam - General 1994 Ears/Nose/Throat oral cavity/pharynx/larynx Overall: no masses 06/17/2016 None Full Exam - General 1994 Respiratory auscultation Upper lung field: Breath sounds clear 06/17/2016 None Full Exam - General 1994 Respiratory auscultation Lower lung field: expiratory wheezes 06/17/2016 None Full Exam - General 1994 Respiratory respiratory effort/rhythm Overall: no retractions 06/17/2016 None Full Exam - General 1994 Respiratory respiratory effort/rhythm Overall: normal rate 06/17/2016 None Full Exam - General 1994 Cardiovascular extremities Overall: no clubbing 06/17/2016 None Full Exam - General 1994 Cardiovascular auscultation of heart Overall: regular rate 06/17/2016 None Full Exam - General 1994 Cardiovascular auscultation of heart Overall: normal heart sounds 06/17/2016 None Full Exam - General 1994 Cardiovascular auscultation of heart Overall: no murmurs 06/17/2016 None Full Exam - General 1994 Musculoskeletal gait and station Overall: normal gait 06/17/2016 None Full Exam - General 1994 Musculoskeletal gait and station Overall: normal station 06/17/2016 None Full Exam - General 1994 Integument inspection of skin Overall: no rash, lesions 06/17/2016 None Full Exam - General 1994 Psychiatric orientation/consciousness Overall: oriented to person, place and time 06/17/2016 None Full Exam - General 1994 Psychiatric mood and affect Overall: normal mood and affect 06/17/2016 None Full Exam - General 1994 Psychiatric mood and affect Mood: depressed 06/17/2016 None Full Exam - General 1994 Psychiatric mood and affect Affect: flat 06/17/2016 None Full Exam - General 1994 Psychiatric appearance Overall: well-groomed, good eye contact 06/17/2016 None Full Exam - General 1994 Constitutional general appearance Overall: in no acute distress 05/12/2016 None Full Exam - General 1994 Constitutional general appearance Development: appears older than stated age 0605/12/2016 None Full Exam - General 1994 Constitutional general appearance Hygiene/Attention to Grooming: poor hygiene 05/12/2016 None Full Exam - General 1994 Constitutional general appearance Overall: well nourished 05/12/2016 None Full Exam - General 1994 Eyes pupils and irises Overall: pupils equal, round, reactive to light and accomodation 05/12/2016 None Full Exam - General 1994 Eyes conjunctiva/eyelids Overall: conjunctiva clear 05/12/2016 None Full Exam - General 1994 Eyes conjunctiva/eyelids Overall: eyelids normal 05/12/2016 None Full Exam - General 1994 Eyes conjunctiva/eyelids Overall: cornea clear 05/12/2016 None Full Exam - General 1994 Ears/Nose/Throat lips/teeth/gingiva Overall: benign gingiva 05/12/2016 None Full Exam - General 1994 Ears/Nose/Throat lips/teeth/gingiva Overall: no masses 05/12/2016 None Full Exam - General 1994 Ears/Nose/Throat lips/teeth/gingiva Overall: normal dentition 05/12/2016 None Full Exam - General 1994 Ears/Nose/Throat lips/teeth/gingiva Overall: benign lips 05/12/2016 None Full Exam - General 1994 Ears/Nose/Throat oral cavity/pharynx/larynx Overall: oropharyngeal mucosa clear 05/12/2016 None Full Exam - General 1994 Ears/Nose/Throat oral cavity/pharynx/larynx Overall: no masses 05/12/2016 None Full Exam - General 1994 Ears/Nose/Throat oral cavity/pharynx/larynx Overall: oral mucosa clear 05/12/2016 None Full Exam - General 1994 Ears/Nose/Throat otoscopic exam Overall: tympanic membranes clear 05/12/2016 None Full Exam - General 1994 Ears/Nose/Throat otoscopic exam Overall: external auditory canals clear 05/12/2016 None Full Exam - General 1994 Respiratory respiratory effort/rhythm Overall: normal rate 05/12/2016 None Full Exam - General 1994 Respiratory respiratory effort/rhythm Overall: no retractions 05/12/2016 None Full Exam - General 1994 Respiratory auscultation Upper lung field: Breath sounds clear 05/12/2016 None Full Exam - General 1994 Respiratory auscultation Lower lung field: expiratory wheezes 05/12/2016 None Full Exam - General 1994 Cardiovascular auscultation of heart Overall: regular rate 05/12/2016 None Full Exam - General 1994 Cardiovascular auscultation of heart Overall: normal heart sounds 05/12/2016 None Full Exam - General 1994 Cardiovascular auscultation of heart Overall: no murmurs 05/12/2016 None Full Exam - General 1994 Cardiovascular extremities Overall: no clubbing 05/12/2016 None Full Exam - General 1994 Musculoskeletal gait and station Overall: normal station 05/12/2016 None Full Exam - General 1994 Musculoskeletal gait and station Overall: normal gait 05/12/2016 None Full Exam - General 1994 Integument inspection of skin Overall: no rash, lesions 05/12/2016 None Full Exam - General 1994 Psychiatric orientation/consciousness Overall: oriented to person, place and time 05/12/2016 None Full Exam - General 1994 Psychiatric mood and affect Overall: normal mood and affect 05/12/2016 None Full Exam - General 1994 Psychiatric appearance Overall: well-groomed, good eye contact 05/12/2016 None Full Exam - General 1994 Psychiatric mood and affect Mood: depressed 05/12/2016 None Full Exam - General 1994 Psychiatric mood and affect Affect: flat 05/12/2016 None Full Exam - General 1994 Constitutional general appearance Development: well developed 02/16/2016 None Full Exam - General 1994 Constitutional general appearance Development: appears stated age 0302/16/2016 None Full Exam - General 1994 Eyes pupils and irises Overall: pupils equal, round, reactive to light and accomodation 02/16/2016 None Full Exam - General 1994 Ears/Nose/Throat lips/teeth/gingiva Teeth: edentulous 02/16/2016 None Full Exam - General 1994 Ears/Nose/Throat oral cavity/pharynx/larynx Overall: oral mucosa clear 02/16/2016 None Full Exam - General 1994 Neck inspection of neck Overall: normal size 02/16/2016 None Full Exam - General 1994 Neck inspection of neck Overall: normal appearance 02/16/2016 None Full Exam - General 1994 Respiratory auscultation Overall: breath sounds clear bilaterally 02/16/2016 None Full Exam - General 1994 Respiratory respiratory effort/rhythm Overall: normal rate 02/16/2016 None Full Exam - General 1994 Cardiovascular extremities Overall: no clubbing 02/16/2016 None Full Exam - General 1994 Cardiovascular auscultation of heart Overall: regular rate 02/16/2016 None Full Exam - General 1994 Cardiovascular auscultation of heart Overall: normal heart sounds 02/16/2016 None Full Exam - General 1994 Cardiovascular auscultation of heart Overall: no murmurs 02/16/2016 None Full Exam - General 1994 Abdomen abdominal exam Overall: no tenderness 02/16/2016 None Full Exam - General 1994 Abdomen abdominal exam Overall: normal bowel sounds 02/16/2016 None Full Exam - General 1994 Lymphatic neck nodes Overall: anterior cervical chain benign 02/16/2016 None Full Exam - General 1994 Lymphatic neck nodes Overall: posterior cervical chain benign 02/16/2016 None Full Exam - General 1994 Musculoskeletal digits and nails Nails: a normal exam 02/16/2016 None Full Exam - General 1994 Musculoskeletal gait and station Overall: normal gait 02/16/2016 None Full Exam - General 1994 Musculoskeletal gait and station Overall: normal station 02/16/2016 None Full Exam - General 1994 Musculoskeletal head and neck Overall: head atraumatic 02/16/2016 None Full Exam - General 1994 Musculoskeletal head and neck Overall: cervical spine benign 02/16/2016 None Full Exam - General 1994 Integument palpation Overall: no induration, no tenderness 02/16/2016 None Full Exam - General 1994 Neurologic deep tendon reflexes Overall: deep tendon reflexes intact 02/16/2016 None Full Exam - General 1994 Psychiatric orientation/consciousness Overall: oriented to person, place and time 02/16/2016 None Full Exam - General 1994 Psychiatric behavior/psychomotor activity Behavior: a normal exam 02/16/2016 None Full Exam - General 1994 Psychiatric mood and affect Mood: depressed 02/16/2016 None Full Exam - General 1994 Psychiatric mood and affect Affect: flat 02/16/2016 None Full Exam - General 1994 Psychiatric appearance Overall: well-groomed, good eye contact 02/16/2016 None Full Exam - General 1994 Psychiatric speech Overall: normal quality, no aphasia 02/16/2016 None Full Exam - General 1994 Constitutional general appearance Development: well developed 11/17/2015 None Full Exam - General 1994 Constitutional general appearance Development: appears stated age 1211/17/2015 None Full Exam - General 1994 Eyes pupils and irises Overall: pupils equal, round, reactive to light and accomodation 11/17/2015 None Full Exam - General 1994 Ears/Nose/Throat lips/teeth/gingiva Teeth: edentulous 11/17/2015 None Full Exam - General 1994 Ears/Nose/Throat oral cavity/pharynx/larynx Overall: oral mucosa clear 11/17/2015 None Full Exam - General 1994 Neck inspection of neck Overall: normal size 11/17/2015 None Full Exam - General 1994 Neck inspection of neck Overall: normal appearance 11/17/2015 None Full Exam - General 1994 Respiratory auscultation Overall: breath sounds clear bilaterally 11/17/2015 None Full Exam - General 1994 Respiratory respiratory effort/rhythm Overall: normal rate 11/17/2015 None Full Exam - General 1994 Cardiovascular extremities Overall: no clubbing 11/17/2015 None Full Exam - General 1994 Cardiovascular auscultation of heart Overall: regular rate 11/17/2015 None Full Exam - General 1994 Cardiovascular auscultation of heart Overall: normal heart sounds 11/17/2015 None Full Exam - General 1994 Cardiovascular auscultation of heart Overall: no murmurs 11/17/2015 None Full Exam - General 1994 Abdomen abdominal exam Overall: no tenderness 11/17/2015 None Full Exam - General 1994 Abdomen abdominal exam Overall: normal bowel sounds 11/17/2015 None Full Exam - General 1994 Lymphatic neck nodes Overall: anterior cervical chain benign 11/17/2015 None Full Exam - General 1994 Lymphatic neck nodes Overall: posterior cervical chain benign 11/17/2015 None Full Exam - General 1994 Musculoskeletal digits and nails Nails: a normal exam 11/17/2015 None Full Exam - General 1994 Musculoskeletal gait and station Overall: normal gait 11/17/2015 None Full Exam - General 1994 Musculoskeletal gait and station Overall: normal station 11/17/2015 None Full Exam - General 1994 Musculoskeletal head and neck Overall: head atraumatic 11/17/2015 None Full Exam - General 1994 Musculoskeletal head and neck Overall: cervical spine benign 11/17/2015 None Full Exam - General 1994 Integument palpation Overall: no induration, no tenderness 11/17/2015 None Full Exam - General 1994 Neurologic deep tendon reflexes Overall: deep tendon reflexes intact 11/17/2015 None Full Exam - General 1994 Psychiatric orientation/consciousness Overall: oriented to person, place and time 11/17/2015 None Full Exam - General 1994 Psychiatric behavior/psychomotor activity Behavior: a normal exam 11/17/2015 None Full Exam - General 1994 Psychiatric mood and affect Mood: depressed 11/17/2015 None Full Exam - General 1994 Psychiatric mood and affect Affect: flat 11/17/2015 None Full Exam - General 1994 Psychiatric appearance Overall: well-groomed, good eye contact 11/17/2015 None Full Exam - General 1994 Psychiatric speech Overall: normal quality, no aphasia 11/17/2015 None Full Exam - General 1994 Constitutional general appearance Development: well developed 08/28/2015 None Full Exam - General 1994 Constitutional general appearance Development: appears stated age 1008/28/2015 None Full Exam - General 1994 Eyes pupils and irises Overall: pupils equal, round, reactive to light and accomodation 08/28/2015 None Full Exam - General 1994 Ears/Nose/Throat lips/teeth/gingiva Teeth: edentulous 08/28/2015 None Full Exam - General 1994 Ears/Nose/Throat oral cavity/pharynx/larynx Overall: oral mucosa clear 08/28/2015 None Full Exam - General 1994 Neck inspection of neck Overall: normal size 08/28/2015 None Full Exam - General 1994 Neck inspection of neck Overall: normal appearance 08/28/2015 None Full Exam - General 1994 Respiratory auscultation Overall: breath sounds clear bilaterally 08/28/2015 None Full Exam - General 1994 Respiratory respiratory effort/rhythm Overall: normal rate 08/28/2015 None Full Exam - General 1994 Cardiovascular extremities Overall: no clubbing 08/28/2015 None Full Exam - General 1994 Cardiovascular auscultation of heart Overall: regular rate 08/28/2015 None Full Exam - General 1994 Cardiovascular auscultation of heart Overall: normal heart sounds 08/28/2015 None Full Exam - General 1994 Cardiovascular auscultation of heart Overall: no murmurs 08/28/2015 None Full Exam - General 1994 Abdomen abdominal exam Overall: no tenderness 08/28/2015 None Full Exam - General 1994 Abdomen abdominal exam Overall: normal bowel sounds 08/28/2015 None Full Exam - General 1994 Lymphatic neck nodes Overall: anterior cervical chain benign 08/28/2015 None Full Exam - General 1994 Lymphatic neck nodes Overall: posterior cervical chain benign 08/28/2015 None Full Exam - General 1994 Musculoskeletal digits and nails Nails: a normal exam 08/28/2015 None Full Exam - General 1994 Musculoskeletal head and neck Overall: head atraumatic 08/28/2015 None Full Exam - General 1994 Musculoskeletal head and neck Overall: cervical spine benign 08/28/2015 None Full Exam - General 1994 Integument palpation Overall: no induration, no tenderness 08/28/2015 None Full Exam - General 1994 Neurologic deep tendon reflexes Overall: deep tendon reflexes intact 08/28/2015 None Full Exam - General 1994 Psychiatric orientation/consciousness Overall: oriented to person, place and time 08/28/2015 None Full Exam - General 1994 Psychiatric behavior/psychomotor activity Behavior: a normal exam 08/28/2015 None Full Exam - General 1994 Psychiatric mood and affect Mood: depressed 08/28/2015 None Full Exam - General 1994 Psychiatric mood and affect Affect: flat 08/28/2015 None Full Exam - General 1994 Psychiatric appearance Overall: well-groomed, good eye contact 08/28/2015 None Full Exam - General 1994 Psychiatric speech Overall: normal quality, no aphasia 08/28/2015 None Full Exam - General 1994 Musculoskeletal gait and station Overall: normal gait 08/28/2015 None Full Exam - General 1994 Musculoskeletal gait and station Overall: normal station 08/28/2015 None Full Exam - General 1994 Constitutional general appearance Development: well developed 05/28/2015 None Full Exam - General 1994 Constitutional general appearance Development: appears stated age 0705/28/2015 None Full Exam - General 1994 Eyes pupils and irises Overall: pupils equal, round, reactive to light and accomodation 05/28/2015 None Full Exam - General 1994 Ears/Nose/Throat lips/teeth/gingiva Teeth: edentulous 05/28/2015 None Full Exam - General 1994 Ears/Nose/Throat oral cavity/pharynx/larynx Overall: oral mucosa clear 05/28/2015 None Full Exam - General 1994 Neck inspection of neck Overall: normal size 05/28/2015 None Full Exam - General 1994 Neck inspection of neck Overall: normal appearance 05/28/2015 None Full Exam - General 1994 Respiratory auscultation Overall: breath sounds clear bilaterally 05/28/2015 None Full Exam - General 1994 Respiratory respiratory effort/rhythm Overall: normal rate 05/28/2015 None Full Exam - General 1994 Cardiovascular extremities Overall: no clubbing 05/28/2015 None Full Exam - General 1994 Cardiovascular auscultation of heart Overall: regular rate 05/28/2015 None Full Exam - General 1994 Cardiovascular auscultation of heart Overall: normal heart sounds 05/28/2015 None Full Exam - General 1994 Cardiovascular auscultation of heart Overall: no murmurs 05/28/2015 None Full Exam - General 1994 Abdomen abdominal exam Overall: no tenderness 05/28/2015 None Full Exam - General 1994 Abdomen abdominal exam Overall: normal bowel sounds 05/28/2015 None Full Exam - General 1994 Lymphatic neck nodes Overall: anterior cervical chain benign 05/28/2015 None Full Exam - General 1994 Lymphatic neck nodes Overall: posterior cervical chain benign 05/28/2015 None Full Exam - General 1994 Musculoskeletal digits and nails Nails: a normal exam 05/28/2015 None Full Exam - General 1994 Musculoskeletal gait and station Overall: normal gait 05/28/2015 None Full Exam - General 1994 Musculoskeletal gait and station Overall: normal station 05/28/2015 None Full Exam - General 1994 Musculoskeletal head and neck Overall: head atraumatic 05/28/2015 None Full Exam - General 1994 Musculoskeletal head and neck Overall: cervical spine benign 05/28/2015 None Full Exam - General 1994 Integument palpation Overall: no induration, no tenderness 05/28/2015 None Full Exam - General 1994 Neurologic deep tendon reflexes Overall: deep tendon reflexes intact 05/28/2015 None Full Exam - General 1994 Psychiatric orientation/consciousness Overall: oriented to person, place and time 05/28/2015 None Full Exam - General 1994 Psychiatric behavior/psychomotor activity Behavior: a normal exam 05/28/2015 None Full Exam - General 1994 Psychiatric mood and affect Mood: depressed 05/28/2015 None Full Exam - General 1994 Psychiatric mood and affect Affect: flat 05/28/2015 None Full Exam - General 1994 Psychiatric appearance Overall: well-groomed, good eye contact 05/28/2015 None Full Exam - General 1994 Psychiatric speech Overall: normal quality, no aphasia 05/28/2015 None Full Exam - General 1994 Musculoskeletal lower extremity Inspection - lower leg: normal appearance 05/28/2015 None Full Exam - General 1994 Musculoskeletal lower extremity Palpation - lower leg: normal on palpation 05/28/2015 states the pain comes and goes to both calves Full Exam - General 1994 Psychiatric orientation/consciousness Overall: oriented to person, place and time 04/23/2015 None Full Exam - General 1994 Psychiatric behavior/psychomotor activity Behavior: a normal exam 04/23/2015 None Full Exam - General 1994 Psychiatric mood and affect Mood: depressed 04/23/2015 None Full Exam - General 1994 Psychiatric mood and affect Affect: flat 04/23/2015 None Full Exam - General 1994 Psychiatric appearance Overall: well-groomed, good eye contact 04/23/2015 None Full Exam - General 1994 Psychiatric speech Overall: normal quality, no aphasia 04/23/2015 None Full Exam - General 1994 Neurologic deep tendon reflexes Overall: deep tendon reflexes intact 04/23/2015 None Full Exam - General 1994 Integument palpation Overall: no induration, no tenderness 04/23/2015 None Full Exam - General 1994 Musculoskeletal head and neck Overall: head atraumatic 04/23/2015 None Full Exam - General 1994 Musculoskeletal digits and nails Nails: a normal exam 04/23/2015 None Full Exam - General 1994 Musculoskeletal gait and station Overall: normal gait 04/23/2015 None Full Exam - General 1994 Musculoskeletal gait and station Overall: normal station 04/23/2015 None Full Exam - General 1994 Musculoskeletal head and neck Overall: cervical spine benign 04/23/2015 None Full Exam - General 1994 Lymphatic neck nodes Overall: anterior cervical chain benign 04/23/2015 None Full Exam - General 1994 Lymphatic neck nodes Overall: posterior cervical chain benign 04/23/2015 None Full Exam - General 1994 Abdomen abdominal exam Overall: no tenderness 04/23/2015 None Full Exam - General 1994 Abdomen abdominal exam Overall: normal bowel sounds 04/23/2015 None Full Exam - General 1994 Cardiovascular extremities Overall: no clubbing 04/23/2015 None Full Exam - General 1994 Cardiovascular auscultation of heart Overall: regular rate 04/23/2015 None Full Exam - General 1994 Cardiovascular auscultation of heart Overall: normal heart sounds 04/23/2015 None Full Exam - General 1994 Cardiovascular auscultation of heart Overall: no murmurs 04/23/2015 None Full Exam - General 1994 Respiratory respiratory effort/rhythm Overall: normal rate 04/23/2015 None Full Exam - General 1994 Respiratory auscultation Overall: breath sounds clear bilaterally 04/23/2015 None Full Exam - General 1994 Neck inspection of neck Overall: normal size 04/23/2015 None Full Exam - General 1994 Neck inspection of neck Overall: normal appearance 04/23/2015 None Full Exam - General 1994 Ears/Nose/Throat oral cavity/pharynx/larynx Overall: oral mucosa clear 04/23/2015 None Full Exam - General 1994 Ears/Nose/Throat lips/teeth/gingiva Teeth: edentulous 04/23/2015 None Full Exam - General 1994 Eyes pupils and irises Overall: pupils equal, round, reactive to light and accomodation 04/23/2015 None Full Exam - General 1994 Constitutional general appearance Development: well developed 04/23/2015 None Full Exam - General 1994 Constitutional general appearance Development: appears stated age 0504/23/2015 None Procedures Procedure Codes Date THER/PROPH/DIAG INJ SC/IM CPT-4: 57526 12/27/2018 VITAMIN B12 INJECTION CPT-4: J3420 12/27/2018 PPPS, SUBSEQ VISIT CPT- 4: G0439 09/17/2018 Vital Signs Date Vital 07/18/2019 Blood Pressure 1: 86/52 Code: 8480-6 BMI: 35.5 Code: 56246-8 Heart Rate 1: 65 bpm Height: 5'6" SpO2: 97% Weight: 220 lbs 05/14/2019 Blood Pressure 1: 120/70 Code: 8480-6 BMI: 36.2 Code: 61168-8 Heart Rate 1: 65 bpm Height: 5'6" SpO2: 98% Weight: 224 lbs 03/12/2019 Blood Pressure 1: 130/76 Code: 8480-6 BMI: 38.6 Code: 42781-5 Heart Rate 1: 83 bpm Height: 5'6" SpO2: 99% Weight: 239 lbs 01/07/2019 Blood Pressure 1: 124/80 Code: 8480-6 BMI: 38.3 Code: 86106-7 Heart Rate 1: 88 bpm Height: 5'6" SpO2: 97% Weight: 237 lbs 12/27/2018 Blood Pressure 1: 122/80 Code: 8480-6 BMI: 38.6 Code: 43314-9 Heart Rate 1: 72 bpm Height: 5'6" SpO2: 98% Weight: 239 lbs 11/05/2018 Blood Pressure 1: 122/64 Code: 8480-6 BMI: 37.4 Code: 35787-6 Heart Rate 1: 66 bpm Height: 5'6" SpO2: 97% Weight: 232 lbs 09/27/2018 Blood Pressure 1: 92/66 Code: 8480-6 BMI: 37.9 Code: 44964-7 Heart Rate 1: 66 bpm Height: 5'6" SpO2: 98% Weight: 235 lbs 09/17/2018 Blood Pressure 1: 110/72 Code: 8480-6 BMI: 38.3 Code: 09411-6 Heart Rate 1: 77 bpm Height: 5'6" SpO2: 95% Waist Measure (cm): 102 cm Weight: 237 lbs 09/03/2018 Blood Pressure 1: 122/68 Code: 8480-6 BMI: 37.6 Code: 76824-9 Heart Rate 1: 78 bpm Height: 5'6" SpO2: 97% Weight: 233 lbs 07/05/2018 Blood Pressure 1: 94/62 Code: 8480-6 BMI: 36.8 Code: 13890-7 Heart Rate 1: 88 bpm Height: 5'6" SpO2: 99% Weight: 228 lbs 05/04/2018 Blood Pressure 1: 110/80 Code: 8480-6 BMI: 35.5 Code: 18843-4 Heart Rate 1: 80 bpm Height: 5'6" SpO2: 99% Weight: 220 lbs 03/28/2018 Blood Pressure 1: 110/72 Code: 8480-6 BMI: 35.0 Code: 70772-1 Heart Rate 1: 80 bpm Height: 5'6" SpO2: 98% Temperature: 36.2 (C ) / 97.1 (F) Weight: 217 lbs 02/27/2018 Blood Pressure 1: 136/76 Code: 8480-6 BMI: 36.0 Code: 57268-6 Heart Rate 1: 80 bpm Height: 5'6" SpO2: 98% Weight: 223 lbs 12/01/2017 Blood Pressure 1: 132/72 Code: 8480-6 BMI: 33.4 Code: 24530-0 Heart Rate 1: 82 bpm Height: 5'6" SpO2: 97% Weight: 207 lbs 09/29/2017 Blood Pressure 1: 124/68 Code: 8480-6 BMI: 32.1 Code: 11561-9 Heart Rate 1: 77 bpm Height: 5'6" SpO2: 98% Weight: 199 lbs 08/11/2017 Blood Pressure 1: 154/82 Code: 8480-6 BMI: 31.6 Code: 28920-3 Heart Rate 1: 75 bpm Height: 5'6" SpO2: 98% Weight: 196 lbs 06/09/2017 Blood Pressure 1: 148/88 Code: 8480-6 BMI: 28.6 Code: 75376-6 Heart Rate 1: 88 bpm Height: 5'6" SpO2: 98% Weight: 177 lbs 04/07/2017 Blood Pressure 1: 140/84 Code: 8480-6 BMI: 30.3 Code: 13849-0 Heart Rate 1: 81 bpm Height: 5'6" SpO2: 99% Weight: 188 lbs 11/17/2016 Blood Pressure 1: 130/72 Code: 8480-6 Heart Rate 1: 63 bpm Height: SpO2: 93% Weight: 11/10/2016 Blood Pressure 1: 128/86 Code: 8480-6 BMI: 30.3 Code: 34949-6 Heart Rate 1: 84 bpm Height: 5'6" SpO2: 96% Weight: 188 lbs 10/14/2016 Heigh t: 5'6" 09/16/2016 Blood Pressure 1: 130/80 Code: 8480-6 BMI: 30.3 Code: 05660-1 Heart Rate 1: 67 bpm Height: 5'6" SpO2: 99% Weight: 188 lbs 08/19/2016 Blood Pressure 1: 110/62 Code: 8480-6 BMI: 29.9 Code: 22686-0 Heart Rate 1: 70 bpm Height: 5'6" SpO2: 97% Weight: 185 lbs 06/17/2016 Blood Pressure 1: 112/68 Code: 8480-6 BMI: 27.6 Code: 66178-9 Heart Rate 1: 61 bpm Height: 5'6" SpO2: 98% Weight: 171 lbs 05/12/2016 Blood Pressure 1: 130/76 Code: 8480-6 BMI: 29.7 Code: 39968-9 Heart Rate 1: 103 bpm Height: 5'6" SpO2: 98% Weight: 184 lbs 02/16/2016 Blood Pressure 1: 140/82 Code: 8480-6 BMI: 28.7 Code: 09499-3 Heart Rate 1: 66 bpm Height: 5'6" SpO2: 99% Weight: 178 lbs 11/17/2015 Blood Pressure 1: 120/74 Code: 8480-6 BMI: 29.4 Code: 18204-7 Heart Rate 1: 90 bpm Height: 5'6" SpO2: 94% Weight: 182 lbs 08/28/2015 Blood Pressure 1: 128/76 Code: 8480-6 BMI: 27.9 Code: 72086-9 Heart Rate 1: 80 bpm Height: 5'6" SpO2: 98% Weight: 173 lbs 05/28/2015 Blood Pressure 1: 122/70 Code: 8480-6 BMI: 27.0 Code: 48538-2 Heart Rate 1: 74 bpm Height: 5'6" SpO2: 98% Weight: 167 lbs 04/23/2015 Blood Pressure 1: 110/60 Code: 8480-6 BMI: 27.0 Code: 31160-4 Heart Rate 1: 68 bpm Height: 5'6" Weight: 167 lbs Functional Status No Functional Status data History of Present Illness Symptom Name Status Resu lt Effective Date Notes Limitation on Activities moderately limits activities 07/18/2019 None Frequency of Episodes daily 07/18/2019 None Timing of Episodes no specific time 07/18/2019 None Triggers no known asso ciated factors 07/18/2019 None Alleviating Factors me dication 07/18/2019 None Pertinent Findings dep ressed mood 07/18/2019 None Quality chronic 07/18/2019 None Quality intermittent 07/18/2019 None Onset and Resolution o ngoing 07/18/2019 None Location in the midlin e of in the lower back area 07/18/2019 None Quality chronic 07/18/2019 None Onset and Resolution o ngoing 07/18/2019 None Limitation on Activities moderately limits activities 07/18/2019 None Triggers activity 07/18/2019 None Alleviating Factors me dication 07/18/2019 None Limitation on Activities moderately limits activities 05/14/2019 None Frequency of Episodes daily 05/14/2019 None Frequency of Episodes Denies increasing 05/14/2019 None Timing of Episodes no specific time 05/14/2019 None Triggers no known asso ciated factors 05/14/2019 None Alleviating Factors me dication 05/14/2019 None Pertinent Findings Den ies cough 05/14/2019 None Pertinent Findings dep ressed mood 05/14/2019 None Pertinent Findings Den ies dizziness 05/14/2019 None Quality chronic 05/14/2019 None Quality intermittent 05/14/2019 None Quality worsening 05/14/2019 None Onset and Resolution o ngoing 05/14/2019 None Location in the midlin e of in the lower back area 05/14/2019 None Quality chronic 05/14/2019 None Onset and Resolution o ngoing 05/14/2019 None Limitation on Activities moderately limits activities 05/14/2019 None Frequency of Episodes increasing 05/14/2019 None Triggers activity 05/14/2019 None Alleviating Factors me dication 05/14/2019 None Initial treatment medi cation 05/14/2019 None Pertinent Findings Den ies weakness 05/14/2019 None Limitation on Activities moderately limits activities 03/12/2019 None Frequency of Episodes daily 03/12/2019 None Frequency of Episodes Denies increasing 03/12/2019 None Timing of Episodes no specific time 03/12/2019 None Triggers no known asso ciated factors 03/12/2019 None Alleviating Factors me dication 03/12/2019 None Pertinent Findings Den ies cough 03/12/2019 None Pertinent Findings dep ressed mood 03/12/2019 None Pertinent Findings Den ies dizziness 03/12/2019 None Quality chronic 03/12/2019 None Quality intermittent 03/12/2019 None Quality worsening 03/12/2019 None Onset and Resolution o ngoing 03/12/2019 None Location in the midlin e of in the lower back area 03/12/2019 None Quality chronic 03/12/2019 None Onset and Resolution o ngoing 03/12/2019 None Limitation on Activities moderately limits activities 03/12/2019 None Frequency of Episodes increasing 03/12/2019 None Triggers activity 03/12/2019 None Alleviating Factors me dication 03/12/2019 None Initial treatment medi cation 03/12/2019 None Pertinent Findings Den ies weakness 03/12/2019 None Limitation on Activities moderately limits activities 01/07/2019 None Frequency of Episodes daily 01/07/2019 None Frequency of Episodes Denies increasing 01/07/2019 None Timing of Episodes no specific time 01/07/2019 None Triggers no known asso ciated factors 01/07/2019 None Alleviating Factors me dication 01/07/2019 None Pertinent Findings Den ies cough 01/07/2019 None Pertinent Findings dep ressed mood 01/07/2019 None Pertinent Findings Den ies dizziness 01/07/2019 None Quality chronic 01/07/2019 None Quality intermittent 01/07/2019 None Quality worsening 01/07/2019 None Onset and Resolution o ngoing 01/07/2019 None Location in the midlin e of in the lower back area 01/07/2019 None Quality chronic 01/07/2019 None Onset and Resolution o ngoing 01/07/2019 None Limitation on Activities moderately limits activities 01/07/2019 None Frequency of Episodes increasing 01/07/2019 None Triggers activity 01/07/2019 None Alleviating Factors me dication 01/07/2019 None Initial treatment medi cation 01/07/2019 None Pertinent Findings Den ies weakness 01/07/2019 None Limitation on Activities moderately limits activities 12/27/2018 None Frequency of Episodes daily 12/27/2018 None Triggers no known asso ciated factors 12/27/2018 None Quality intermittent 12/27/2018 None Onset and Resolution o ngoing 12/27/2018 None Quality chronic 12/27/2018 None Quality worsening 12/27/2018 None Frequency of Episodes Denies increasing 12/27/2018 None Timing of Episodes no specific time 12/27/2018 None Alleviating Factors me dication 12/27/2018 None Pertinent Findings Den ies cough 12/27/2018 None Pertinent Findings dep ressed mood 12/27/2018 None Pertinent Findings Den ies dizziness 12/27/2018 None Limitation on Activities moderately limits activities 11/05/2018 None Triggers no known asso ciated factors 11/05/2018 None Quality intermittent 11/05/2018 None Quality worsening 11/05/2018 None Onset and Resolution o ngoing 11/05/2018 None Location on the right 11/05/2018 None Quality intermittent 11/05/2018 None Onset of Symptom 6 mon ths ago 11/05/2018 None Onset of Symptom _ yea rs ago 11/05/2018 None Frequency of Episodes unchanged 11/05/2018 None Pertinent Findings Den ies cough 11/05/2018 None Pertinent Findings dep ressed mood 11/05/2018 None fatigue Limitation on Activities moderately limits activities 09/27/2018 None fatigue Frequency of Episodes daily 09/27/2018 None fatigue Triggers no know n associated factors 09/27/2018 None fatigue Onset and Resolution ongoing 09/27/2018 None fatigue Quality worsening 09/27/2018 None fatigue Quality intermit tent 09/27/2018 None Annual Medicare Wellness Exam Alcohol Use does not drink any alcohol 09/17/2018 None Annual Medicare Wellness Exam Aspirin Use no 09/17/2018 None Annual Medicare Wellness Exam Blood Glucose (self reported) desireable (below 100) 09/17/2018 None Annual Medicare Wellness Exam Blood Pressure (self reported) borderline (120/80 - 139/89) 018 None Annual Medicare Wellness Exam Choles terol (self reported) desireable (below 200) 09/17/2018 None Annual Medicare Wellness Exam Depres mery (last 6 months) most of the time 09/17/2018 None Annual Medicare Wellness Exam Depres mery or Hopelessness most of the time 09/17/2018 None Annual Medicare Wellness Exam Descri be Your Health poor 09/17/2018 None Annual Medicare Wellness Exam Exerci se Habits does not exercise 09/17/2018 None Annual Medicare Wellness Exam Handli ng Stress usually mal[place] effectively 09/17/2018 None Annual Medicare Wellness Exam Hemagl obin A-1C (self reported) don't know 09/17/2018 No ne Annual Medicare Wellness Exam Hours of Sleep 4-5 09/17/2018 None Annual Medicare Wellness Exam Intera ction with Friends yes 09/17/2018 None Annual Medicare Wellness Exam Intere sts & Pleasure some of the time 09/17/2018 None Annual Medicare Wellness Exam Life S atisfaction satisfied 09/17/2018 Non e Annual Medicare Wellness Exam Motor Vehicle Safety always fastens seat belt: y 09/17/20 18 None Annual Medicare Wellness Exam Nutrition servings of fried food / high fat foods per day: 3 09/17/2018 None Annual Medicare Wellness Exam Nutrition servings of vegetables / fruit per day: 2-3 09/17/2018 None Annual Medicare Wellness Exam Social & Emotional Support always 09/17/2018 Annual Medicare Wellness Exam Stress most of the time 09/17/2018 None Annual Medicare Wellness Exam Sun Exposure protects skin when outdoors: y 09/17/2018 None fatigue Limitation on Activities moderately limits activities 09/03/2018 None fatigue Onset of Symptom 1+ years ago 09/03/2018 None fatigue Frequency of Episodes daily 09/03/2018 None fatigue Triggers no know n associated factors 09/03/2018 None fatigue Quality chronic 09/03/2018 None fatigue Quality constant 09/03/2018 None fatigue Onset and Resolution ongoing 09/03/2018 None 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 09/03/2018 None hypothyroid Onset and Resolution ongoing 09/03/2018 None hypothyroid Alleviating Factors medication 09/03/2018 None hypothyroid Pertinent Findings decreased energy 09/03/2018 None fatigue Onset of Symptom 1+ years ago 07/05/2018 None fatigue Frequency of Episodes daily 07/05/2018 None fatigue Triggers no know n associated factors 07/05/2018 None fatigue Quality chronic 07/05/2018 None fatigue Onset and Resolution ongoing 07/05/2018 None fatigue Quality constant 07/05/2018 None 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 07/05/2018 None hypothyroid Onset and Resolution ongoing 07/05/2018 None hypothyroid Alleviating Factors medication 07/05/2018 None hypothyroid Pertinent Findings decreased energy 07/05/2018 None fatigue Limitation on Activities moderately limits activities 07/05/2018 None chest pain/pressure Quality intermittent 05/04/2018 None chest pain/pressure Quality acute 05/04/2018 None chest pain/pressure Radiating the back 05/04/2018 None chest pain/pressure Pertinent Findings dyspnea 05/04/2018 None chest pain/pressure Pertinent Findings Denies nausea 05/04/2018 None chest pain/pressure Pertinent Findings Denies lightheadedness 05/04/2018 None chest pain/pressure Onset and Resolution sudden in onset 05/04/2018 None chest pain/pressure Triggers no known associated factors 05/04/2018 None chest pain/pressure Onset of Symptom 2 days ago 05/04/2018 None chest pain/pressure Scale of 1(mild) to 10(severe) 7 05/04/2018 None chest pain/pressure Timing of Episodes in the evening 05/04/2018 None insomnia Quality chronic 05/04/2018 None insomnia Quality difficu lty falling asleep 05/04/2018 None insomnia Quality disrupt ed sleep 05/04/2018 None insomnia Onset and Resolution ongoing 05/04/2018 None insomnia Alleviating Factors medication 05/04/2018 None fever Quality acute 03/28/2018 None fever Onset and Resolution sudden in onset 03/28/2018 None fever Onset of Symptom 3 days ago 03/28/2018 None fever Temperature 102 de grees 03/28/2018 None fever Triggers no known associated factors 03/28/2018 None fever Pertinent Findings chills 03/28/2018 None fever Pertinent Findings nausea 03/28/2018 None fever Pertinent Findings weight loss 03/28/2018 None fever Pertinent Findings vomiting 03/28/2018 None diarrhea Onset and Resolution sudden in onset 03/28/2018 None diarrhea Onset of Symptom 2 days ago 03/28/2018 None diarrhea Triggers no kno wn associated factors 03/28/2018 None diarrhea Pertinent Findings Denies abdominal distension 03/28/2018 None diarrhea Pertinent Findings fecal urgency 03/28/2018 None diarrhea Pertinent Findings chills 03/28/2018 None diarrhea Pertinent Findings Denies cramping 03/28/2018 None diarrhea Pertinent Findings Denies dyspepsia 03/28/2018 None diarrhea Pertinent Findings emesis 03/28/2018 None diarrhea Pertinent Findings fever 03/28/2018 None diarrhea Pertinent Findings flatulence 03/28/2018 None diarrhea Pertinent Findings nausea 03/28/2018 None diarrhea Pertinent Findings Denies unable to tolerate liquids orally 03/28/2018 None diarrhea Pertinent Findings Denies bloating 03/28/2018 None diarrhea Pertinent Findings weight loss 03/28/2018 None 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 02/27/2018 None hypothyroid Onset and Resolution ongoing 02/27/2018 None hypothyroid Alleviating Factors medication 02/27/2018 None fatigue Limitation on Activities moderately limits activities 02/27/2018 None fatigue Frequency of Episodes daily 02/27/2018 None fatigue Onset and Resolution ongoing 02/27/2018 None fatigue Triggers no know n associated factors 02/27/2018 None fatigue Significant Medical Conditions anemia 02/27/2018 None fatigue Timing of Episodes no specific time 02/27/2018 None hypothyroid Pertinent Findings decreased energy 02/27/2018 None back pain Location in th e midline of in the lower back area 12/01/2017 None back pain Quality chronic 12/01/2017 None back pain Onset and Resolution ongoing 12/01/2017 None back pain Limitation on Activities moderately limits activities 12/01/2017 None back pain Frequency of Episodes increasing 12/01/2017 None back pain Triggers activ ity 12/01/2017 None back pain Alleviating Factors medication 12/01/2017 None back pain Initial treatment medication 12/01/2017 None back pain Pertinent Findings Denies weakness 12/01/2017 None medication follow up Location oral intake 12/01/2017 None back pain Location in th e midline of in the lower back area 09/29/2017 None back pain Quality chronic 09/29/2017 None back pain Onset and Resolution ongoing 09/29/2017 None back pain Limitation on Activities moderately limits activities 09/29/2017 None back pain Frequency of Episodes increasing 09/29/2017 None back pain Triggers activ ity 09/29/2017 None back pain Alleviating Factors medication 09/29/2017 None back pain Initial treatment medication 09/29/2017 None back pain Pertinent Findings Denies weakness 09/29/2017 None medication follow up Location oral intake 09/29/2017 None back pain Location in th e midline of in the lower back area 08/11/2017 None back pain Quality chronic 08/11/2017 None back pain Onset and Resolution ongoing 08/11/2017 None back pain Limitation on Activities moderately limits activities 08/11/2017 None back pain Frequency of Episodes increasing 08/11/2017 None back pain Triggers activ ity 08/11/2017 None back pain Alleviating Factors medication 08/11/2017 None back pain Initial treatment medication 08/11/2017 None back pain Pertinent Findings Denies weakness 08/11/2017 None medication follow up Location oral intake 08/11/2017 None back pain Location in th e midline of in the lower back area 06/09/2017 None back pain Quality chronic 06/09/2017 None back pain Onset and Resolution ongoing 06/09/2017 None back pain Limitation on Activities moderately limits activities 06/09/2017 None back pain Frequency of Episodes increasing 06/09/2017 None back pain Triggers activ ity 06/09/2017 None back pain Alleviating Factors medication 06/09/2017 None back pain Initial treatment medication 06/09/2017 None back pain Pertinent Findings Denies weakness 06/09/2017 None medication follow up Location oral intake 06/09/2017 None back pain Location in th e midline of in the lower back area 04/07/2017 None back pain Quality chronic 04/07/2017 None back pain Onset and Resolution ongoing 04/07/2017 None back pain Limitation on Activities moderately limits activities 04/07/2017 None back pain Frequency of Episodes increasing 04/07/2017 None back pain Triggers activ ity 04/07/2017 None back pain Alleviating Factors medication 04/07/2017 None back pain Initial treatment medication 04/07/2017 None back pain Pertinent Findings Denies weakness 04/07/2017 None medication follow up Additional Comments medication: Morphine 04/07/2017 None medication follow up Additional Comments medication use 04/07/2017 None medication follow up Location oral intake 04/07/2017 None sores Quality acute 11/17/2016 None sores Onset and Resolution ongoing 11/17/2016 None sores Limitation on Activities does not limit activities 11/17/2016 None sores Severity worsening 11/17/2016 None sores Pertinent Findings Denies fever 11/17/2016 None sores Pertinent Findings Denies tenderness 11/17/2016 None sores Color erythematous 11/17/2016 None sores Onset of Symptom 3 weeks ago 11/17/2016 None sores Triggers no known triggers 11/17/2016 None sores Location-Major on the arms 11/10/2016 left arm posterior forear m. sores Color erythematous 11/10/2016 None sores Pertinent Findings Denies fever 11/10/2016 None sores Pertinent Findings tenderness 11/10/2016 None sores Quality acute 11/10/2016 None sores Onset and Resolution ongoing 11/10/2016 None sores Limitation on Activities does not limit activities 11/10/2016 None sores Severity worsening 11/10/2016 None sores Prior Treatments p reviously untreated 11/10/2016 None back pain Location in th e midline of in the lower back area 10/14/2016 None back pain Quality chronic 10/14/2016 None back pain Onset and Resolution ongoing 10/14/2016 None back pain Limitation on Activities moderately limits activities 10/14/2016 None back pain Frequency of Episodes increasing 10/14/2016 None back pain Triggers activ ity 10/14/2016 None back pain Alleviating Factors medication 10/14/2016 None back pain Initial treatment medication 10/14/2016 None back pain Pertinent Findings Denies weakness 10/14/2016 None back pain Location in th e midline of in the lower back area 09/16/2016 None back pain Quality chronic 09/16/2016 None back pain Onset and Resolution ongoing 09/16/2016 None back pain Limitation on Activities moderately limits activities 09/16/2016 None back pain Frequency of Episodes increasing 09/16/2016 None back pain Triggers activ ity 09/16/2016 None back pain Alleviating Factors medication 09/16/2016 None back pain Initial treatment medication 09/16/2016 None back pain Pertinent Findings Denies weakness 09/16/2016 None back pain Location in th e midline of in the lower back area 08/19/2016 None back pain Quality chronic 08/19/2016 None back pain Onset and Resolution ongoing 08/19/2016 None back pain Limitation on Activities moderately limits activities 08/19/2016 None back pain Frequency of Episodes increasing 08/19/2016 None back pain Triggers activ ity 08/19/2016 None back pain Alleviating Factors medication 08/19/2016 None back pain Initial treatment medication 08/19/2016 None back pain Pertinent Findings weakness 08/19/2016 None shoulder pain Location d iffusely 08/19/2016 left side shoulder pain Quality ac nancy 08/19/2016 None shoulder pain Quality co nstant 08/19/2016 None shoulder pain Quality sh kaylene 08/19/2016 None shoulder pain Quality me chanical--catching 08/19/2016 None shoulder pain Quality me chanical--popping 08/19/2016 None shoulder pain Quality me chanical--grinding 08/19/2016 None shoulder pain Onset and Resolution ongoing 08/19/2016 None back pain Location in th e midline of in the lower back area 06/17/2016 None back pain Quality chronic 06/17/2016 None back pain Onset and Resolution ongoing 06/17/2016 None back pain Limitation on Activities moderately limits activities 06/17/2016 None back pain Frequency of Episodes increasing 06/17/2016 None back pain Triggers activ ity 06/17/2016 None back pain Alleviating Factors medication 06/17/2016 None back pain Initial treatment medication 06/17/2016 None back pain Pertinent Findings weakness 06/17/2016 None back pain Location in th e midline of in the lower back area 05/12/2016 None back pain Quality chronic 05/12/2016 None back pain Onset and Resolution ongoing 05/12/2016 None back pain Limitation on Activities moderately limits activities 05/12/2016 None back pain Frequency of Episodes increasing 05/12/2016 None back pain Triggers activ ity 05/12/2016 None back pain Alleviating Factors medication 05/12/2016 None back pain Initial treatment medication 05/12/2016 None back pain Pertinent Findings weakness 05/12/2016 None hip pain Location on the right 05/12/2016 None hip pain Quality intermi ttent 05/12/2016 None hip pain Onset of Symptom 6 months ago 05/12/2016 None hip pain Pertinent Findings limping 05/12/2016 None shoulder pain Location o n the left shoulder 05/12/2016 None shoulder pain Onset and Resolution ongoing 05/12/2016 None shoulder pain Onset of Symptom _ months ago 05/12/2016 None shoulder pain Pertinent Findings Denies cough 05/12/2016 None shoulder pain Pertinent Findings Denies limited range of motion 05/12/2016 None shoulder pain Pertinent Findings Denies swelling 05/12/2016 None back pain Location in th e midline of in the lower back area 02/16/2016 None back pain Quality chronic 02/16/2016 None back pain Onset and Resolution ongoing 02/16/2016 None back pain Limitation on Activities moderately limits activities 02/16/2016 None back pain Frequency of Episodes increasing 02/16/2016 None back pain Triggers activ ity 02/16/2016 None back pain Alleviating Factors medication 02/16/2016 None back pain Initial treatment medication 02/16/2016 None back pain Pertinent Findings weakness 02/16/2016 None hip pain Location on the right 02/16/2016 None hip pain Quality intermi ttent 02/16/2016 None hip pain Onset of Symptom 6 months ago 02/16/2016 None hip pain Pertinent Findings limping 02/16/2016 None shoulder pain Location o n the left shoulder 02/16/2016 None shoulder pain Onset and Resolution ongoing 02/16/2016 None shoulder pain Onset of Symptom _ months ago 02/16/2016 None shoulder pain Pertinent Findings Denies cough 02/16/2016 None shoulder pain Pertinent Findings Denies limited range of motion 02/16/2016 None shoulder pain Pertinent Findings Denies swelling 02/16/2016 None back pain Location in th e midline of in the lower back area 11/17/2015 None back pain Quality chronic 11/17/2015 None back pain Onset and Resolution ongoing 11/17/2015 None back pain Limitation on Activities moderately limits activities 11/17/2015 None back pain Frequency of Episodes increasing 11/17/2015 None back pain Triggers activ ity 11/17/2015 None back pain Alleviating Factors medication 11/17/2015 None back pain Initial treatment medication 11/17/2015 None knee pain Location on th e right 11/17/2015 None knee pain Quality sharp pain 11/17/2015 None knee pain Quality consta nt 11/17/2015 None knee pain Onset and Resolution sudden in onset 11/17/2015 None knee pain Onset of Symptom 2 months ago 11/17/2015 None knee pain Limitation on Activities allows weight bearing activity 11/17/2015 None knee pain Limitation on Activities unable to perform any activities without pain 11/17/2015 None knee pain Severity moder ate 11/17/2015 None knee pain Severity severe 11/17/2015 None hip pain Location on the right 11/17/2015 None hip pain Quality sharp p ain 11/17/2015 None hip pain Quality constant 11/17/2015 None hip pain Onset and Resolution sudden in onset 11/17/2015 None hip pain Onset of Symptom 2 months ago 11/17/2015 None hip pain Frequency of Episodes daily 11/17/2015 None hip pain Severity severe 11/17/2015 None hip pain Significant Medical Conditions prior hip fracture 11/17/2015 None hip pain Significant Medical Conditions prior injury 11/17/2015 None hip pain Significant Medical Conditions prior surgery 11/17/2015 None hip pain Significant Medications NSAID's 11/17/2015 None knee pain Pertinent Findings limping 11/17/2015 ambulates with cane hip pain Pertinent Findings pain at rest 11/17/2015 None back pain Pertinent Findings weakness 11/17/2015 None back pain Location in th e midline of in the lower back area 08/28/2015 None back pain Quality chronic 08/28/2015 None back pain Onset and Resolution ongoing 08/28/2015 None knee pain Location on th e right 08/28/2015 None knee pain Quality sharp pain 08/28/2015 None knee pain Quality consta nt 08/28/2015 None knee pain Onset of Symptom 2 months ago 08/28/2015 None knee pain Mechanism of injury fall onto knee 08/28/2015 None hip pain Location on the right 08/28/2015 None hip pain Quality sharp p ain 08/28/2015 None hip pain Quality constant 08/28/2015 None hip pain Onset and Resolution sudden in onset 08/28/2015 None hip pain Onset of Symptom 2 months ago 08/28/2015 None hip pain Frequency of Episodes daily 08/28/2015 None hip pain Mechanism of injury fall from a height 08/28/2015 None back pain Limitation on Activities moderately limits activities 08/28/2015 None back pain Frequency of Episodes increasing 08/28/2015 None back pain Triggers activ ity 08/28/2015 None back pain Alleviating Factors medication 08/28/2015 None back pain Mechanism of injury unknown 08/28/2015 None back pain Initial treatment medication 08/28/2015 None knee pain Onset and Resolution sudden in onset 08/28/2015 None knee pain Limitation on Activities allows weight bearing activity 08/28/2015 None knee pain Limitation on Activities unable to perform any activities without pain 08/28/2015 None knee pain Severity severe 08/28/2015 None knee pain Severity moder ate 08/28/2015 None knee pain Sports Participation not significant 08/28/2015 None hip pain Severity severe 08/28/2015 None hip pain Significant Medical Conditions prior hip fracture 08/28/2015 None hip pain Significant Medical Conditions prior injury 08/28/2015 None hip pain Significant Medical Conditions prior surgery 08/28/2015 None hip pain Significant Medications NSAID's 08/28/2015 None depression Quality chron ic 05/28/2015 None depression Onset and Resolution ongoing 05/28/2015 None depression Limitation on Activities moderately limits activities 05/28/2015 None lower leg pain Quality c ramping 05/28/2015 None lower leg pain Location on the right 05/28/2015 None lower leg pain Location on the left 05/28/2015 None lower leg pain Location in the calf region 05/28/2015 None lower leg pain Timing of Episodes in the morning 05/28/2015 None lower leg pain Timing of Episodes in the afternoon 05/28/2015 None lower leg pain Timing of Episodes in the evening 05/28/2015 None lower leg pain Timing of Episodes at night 05/28/2015 None lower leg pain Onset and Resolution gradual in onset 05/28/2015 None lower leg pain Onset of Symptom 2 weeks ago 05/28/2015 states calf pain has star rahat since starting to take cefalexin. Reports that he stopped taking the cefalexin yesterday because he thinks this is what was causing his pain. lower leg pain Limitation on Activities allows weight bearing activity 05/28/2015 None lower leg pain Severity mild 05/28/2015 None back pain Location diffu sely 05/28/2015 None back pain Quality aching 05/28/2015 None back pain Quality consta nt 05/28/2015 None back pain Onset and Resolution ongoing 05/28/2015 None back pain Limitation on Activities moderately limits activities 05/28/2015 None back pain Limitation on Activities is incapacitating 05/28/2015 at times back pain Alleviating Factors medication 05/28/2015 None back pain Exacerbating Factors activity 05/28/2015 None back pain Exacerbating Factors exertion 05/28/2015 None back pain Exacerbating Factors position change 05/28/2015 None depression Quality chron ic 04/23/2015 None depression Onset and Resolution ongoing 04/23/2015 None depression Limitation on Activities moderately limits activities 04/23/2015 None Advance Directives No Advance Directive data Encounters Encounter Performer Loca tion Codes Date ([id number]) [id number] EST. P ATIENT, LEVEL IV Diagnosis: Chronic pain syndrome[ICD10: G89.4] Diagnosis: Major depressive disorder, recurrent, moderate[ICD10: F33.1] Diagnosis: Hypothyroidism, unspecified[ICD10: E03.9] [facility] CPT-4: 46925 07/18/2019 ([id number]) 32414 EST. P ATIENT, LEVEL III Diagnosis: Chronic pain syndrome[ICD10: G89.4] Diagnosis: Hypothyroidism, unspecified[ICD10: E03.9] [facility] CPT-4: 47548 05/14/2019 ([id number]) 09451 EST. P ATIENT, LEVEL III Diagnosis: Hypothyroidism, unspecified[ICD10: E03.9] Diagnosis: Chronic pain syndrome[ICD10: G89.4] [facility] CPT-4: 17699 03/12/2019 ([id number]) 37781 EST. P ATIENT, LEVEL IV Diagnosis: Chronic pain syndrome[ICD10: G89.4] Diagnosis: Hypothyroidism, unspecified[ICD10: E03.9] Diagnosis: Encounter for screening for lipoid disorders[ICD10: Z13.220] Diagnosis: Major depressive disorder, recurrent, moderate[ICD10: F33.1] Leydi Jacobo MD, [facility] CPT-4: 05879 01/07/2019 ([id number]) 33387 EST. P ATIENT, LEVEL III Diagnosis: Obstructive sleep apnea (adult) (pediatric)[ICD10: G47.33] Diagnosis: Hypothyroidism, unspecified[ICD10: E03.9] Diagnosis: Vitamin B12 deficiency anemia, unspecified[ICD10: D51.9] Leydi Jacobo MD, [facility] CPT-4: 80953 12/27/2018 ([id number]) 97935 EST. P ATIENT, LEVEL IV Diagnosis: Hypothyroidism, unspecified[ICD10: E03.9] Diagnosis: Major depressive disorder, recurrent, moderate[ICD10: F33.1] Diagnosis: Chronic pain syndrome[ICD10: G89.4] Leydi Jacobo MD, [facility] CPT-4: 92190 11/05/2018 ([id number]) 84847 EST. P ATIENT, LEVEL IV Diagnosis: Chronic pain syndrome[ICD10: G89.4] Diagnosis: Hypothyroidism, unspecified[ICD10: E03.9] Diagnosis: Other fatigue[ICD10: R53.83] Diagnosis: Other obesity due to excess calories[ICD10: E66.09] Diagnosis: Major depressive disorder, recurrent, moderate[ICD10: F33.1] Leydi Jacobo MD, [facility] CPT-4: 76458 09/27/2018 ([id number]) 65884 EST. P ATIENT, LEVEL III Diagnosis: Chronic pain syndrome[ICD10: G89.4] Leydi Jacobo MD, [facility] CPT-4: 01232 09/03/2018 ([id number]) 81671 EST. P ATIENT, LEVEL IV Diagnosis: Hypothyroidism, unspecified[ICD10: E03.9] Diagnosis: Major depressive disorder, recurrent, moderate[ICD10: F33.1] Diagnosis: Chronic pain syndrome[ICD10: G89.4] Diagnosis: Other male erectile dysfunction[ICD10: N52.8] Diagnosis: Other fatigue[ICD10: R53.83] Diagnosis: Encounter for screening for malignant neoplasm of prostate[ICD10: Z12.5] Leydi Jacobo MD, [facility] CPT-4: 25201 07/05/2018 ([id number]) 45753 EST. P ATIENT, LEVEL IV Diagnosis: Chronic pain syndrome[ICD10: G89.4] Diagnosis: Hypothyroidism, unspecified[ICD10: E03.9] Diagnosis: Major depressive disorder, recurrent, moderate[ICD10: F33.1] Leydi Jacobo MD, [facility] CPT-4: 90906 05/04/2018 88551 EST. PATIENT, LEVEL IV Diagnosis: Melena[ICD10: K92.1] Diagnosis: Other malaise[ICD10: R53.81] Diagnosis: Other fatigue[ICD10: R53.83] Diagnosis: Pain in unspecified joint[ICD10: M25.50] Diagnosis: Diarrhea, unspecified[ICD10: R19.7] Denae Jacobo MD, [facility] CPT-4: 00898 03/28/2018 ([id number]) 46337 EST. P ATIENT, LEVEL IV Diagnosis: Chronic pain syndrome[ICD10: G89.4] Diagnosis: Hypothyroidism, unspecified[ICD10: E03.9] Diagnosis: Other obesity due to excess calories[ICD10: E66.09] Diagnosis: Major depressive disorder, recurrent, moderate[ICD10: F33.1] Diagnosis: Obstructive sleep apnea (adult) (pediatric)[ICD10: G47.33] Leydi Jacobo MD, [facility] CPT-4: 32693 02/27/2018 51609 EST. PATIENT, LEVEL IV Diagnosis: Other specified hypothyroidism[ICD10: E03.8] Diagnosis: Chronic pain syndrome[ICD10: G89.4] Diagnosis: Major depressive disorder, recurrent, moderate[ICD10: F33.1] Denae Jacobo MD, [facility] CPT-4: 05114 12/01/2017 ([id number]) 50638 EST. P ATIENT, LEVEL IV Diagnosis: Chronic pain syndrome[ICD10: G89.4] Diagnosis: Alcohol dependence, uncomplicated[ICD10: F10.20] Diagnosis: Major depressive disorder, recurrent, moderate[ICD10: F33.1] Leydi Jacobo MD, [facility] CPT-4: 70439 09/29/2017 ([id number]) 27274 EST. P ATIENT, LEVEL IV Diagnosis: Chronic pain syndrome[ICD10: G89.4] Diagnosis: Alcohol dependence, uncomplicated[ICD10: F10.20] Diagnosis: Major depressive disorder, recurrent, moderate[ICD10: F33.1] Leydi Jacobo MD, [facility] CPT-4: 06109 08/11/2017 ([id number]) 98475 EST. P ATIENT, LEVEL III Diagnosis: Chronic pain syndrome[ICD10: G89.4] Diagnosis: Major depressive disorder, recurrent, moderate[ICD10: F33.1] Leydi Jacobo MD, [facility] CPT-4: 56896 06/09/2017 ([id number]) 27373 EST. P ATIENT, LEVEL III Diagnosis: Chronic pain syndrome[ICD10: G89.4] Diagnosis: Pain in left knee[ICD10: M25.562] Leydi Jacobo MD, [facility] CPT- 4: 92246 04/07/2017 96608 EST. PATIENT, LEVEL II Diagnosis: Superficial foreign body of left upper arm, initial encounter[ICD10: S40.852A] Diagnosis: Cellulitis of left upper limb[ICD10: L03.114] Leydi Jacobo MD, [facility] CPT-4: 36231 11/17/2016 27262 EST. PATIENT, LEVEL II Diagnosis: Cellulitis of left upper limb[ICD10: L03.114] Leydi Jacobo MD, [facility] CPT-4: 10118 11/10/2016 ([id number]) 22980 EST. P ATIENT, LEVEL III Diagnosis: Chronic pain syndrome[ICD10: G89.4] Diagnosis: Major depressive disorder, recurrent, moderate[ICD10: F33.1] Leydi Jacobo MD, [facility] CPT-4: 07779 10/14/2016 90721 EST. PATIENT, LEVEL IV Diagnosis: Psychophysiologic insomnia[ICD10: F51.04] Diagnosis: Major depressive disorder, recurrent, moderate[ICD10: F33.1] Diagnosis: Alcohol dependence, uncomplicated[ICD10: F10.20] Diagnosis: Chronic pain syndrome[ICD10: G89.4] Leydi Jacobo MD, [facility] CPT-4: 69900 09/16/2016 ([id number]) 34340 EST. P ATIENT, LEVEL III Diagnosis: Pain in left shoulder[ICD10: M25.512] Diagnosis: Major depressive disorder, recurrent, moderate[ICD10: F33.1] Diagnosis: Psychophysiologic insomnia[ICD10: F51.04] Leydi Jacobo MD, [facility] CPT-4: 95574 08/19/2016 ([id number]) 89040 EST. P ATIENT, LEVEL III Diagnosis: Gastro-esophageal reflux disease without esophagitis[ICD10: K21.9] Diagnosis: Hypothyroidism, unspecified[ICD10: E03.9] Leydi Jacobo MD, [facility] CPT-4: 64074 06/17/2016 ([id number]) 11262 EST. P ATIENT, LEVEL IV Diagnosis: Gastro-esophageal reflux disease without esophagitis[ICD10: K21.9] Diagnosis: Hypothyroidism, unspecified[ICD10: E03.9] Diagnosis: Major depressive disorder, recurrent, moderate[ICD10: F33.1] Leydi Jacobo MD, [facility] CPT-4: 10695 05/12/2016 ([id number]) 44624 EST. P ATIENT, LEVEL III Diagnosis: Cervicalgia[ICD10: M54.2] Diagnosis: Hypothyroidism, unspecified[ICD10: E03.9] Diagnosis: Other male erectile dysfunction[ICD10: N52.8] Leydi Jacobo MD, [facility] CPT-4: 31149 02/16/2016 ([id number]) 58353 EST. P ATIENT, LEVEL III Diagnosis: Lumbago with sciatica, unspecified side[ICD10: M54.40] Diagnosis: Other male erectile dysfunction[ICD10: N52.8] Leydi Jacobo MD, [facility] CPT-4: 18584 11/17/2015 ([id number]) 71934 EST. P ATIENT, LEVEL III Diagnosis: Lumbago with sciatica, unspecified side[ICD10: M54.40] Diagnosis: Hypothyroidism, unspecified[ICD10: E03.9] Diagnosis: Other male erectile dysfunction[ICD10: N52.8] Leydi Jacobo MD, [facility] CPT-4: 89583 08/28/2015 ([id number]) 55143 EST. P ATIENT, LEVEL III Diagnosis: Back pain, chronic[ICD9: 724.5] Diagnosis: Depression[ICD9: 311] Diagnosis: Hypothyroid[ICD9: 244.9] Diagnosis: Bilateral calf pain[ICD9: 729.5] [facility] CPT-4: 83560 05/28/2015 ([id number]) OFFICE VISI T, NEW - LEVEL 4 Diagnosis: Back pain, chronic[ICD9: 724.5] Diagnosis: Depression[ICD9: 311] Diagnosis: Hypothyroid[ICD9: 244.9] Julieta Jacobo MD, [facility] CPT-4: 48439 04/23/2015 Plan of Care Planned Activity Notes C odes Status Date Visit Plan: Chronic Pain Syndrome - pt has chronic pain - has been maintained on current medications, has not sought out other medications, only uses PRN pain medications as directed, and understands the consequences of over-medication. Hypothyroidism -managed by veterinary medicine teacher Depression -not well controlled -taking 1/2 tab of remeron -increase to a full tab -follow up in 2 months, discussed switching medication if no improvement. Instructed patient and his to call if symptoms do not improve or if any worse. 07/18/2019 Appointment: Leydi Hightower WPtel: [address] [place], [place] [phone] (30 min) [facility] 07/18/2019 Patient Education: Patient Medication Summary Completed 07/18/2019 Patient Education: Depression Completed 07/18/2019 Visit Plan: Chronic Back pain - the patient was counseled to always first attempt to use modalities other than pain medication for alleviation of the muscle spasms and pain. The patient was also encouraged to co ntinue with back exercises as previously directed. Pt is to use pain medication as directed. If pain medications are used inappropriately or early refills are requested, the patient understands that is a breech of trust/contract and could result in the patient's termination from this medical practice. Hypothyroidism- seeing veterinary medicine teacher 05/14/2019 Appointment: Leydi Hightower WPtel: [phone] [place] (30 min) Complex 05/14/2019 Patient Education: Patient Medication Summary Completed 05/14/2019 Visit Plan: Hypothyroidism -refer kaitlynn Yan at [facility] Chronic Pain Syndrome - pt has chronic pain - has been maintained on current medications, has not sought out other medications, only uses PRN pain medications as directed, and understands the consequences of over-medication. 03/12/2019 Appointment: Leydi Hightower WPtel: [phone] [place] (30 min) Complex 03/12/2019 Patient Education: Patient Medication Summary Completed 03/12/2019 Appointment: Leydi Hightower WPtel: [phone] [place] (30 min) Complex 03/05/2019 Visit Plan: Chronic Pain Syndrome - pt has chronic pain - has been maintained on current medications, has not sought out other medications, only uses PRN pain medications as directed, and understands the consequences of over-medication. Chronic Depression - the pt has symptoms of chronic anxiety and depression that have been fairly well controlled since the last office visit. The pt has expected periods of exacerbation with abatement of the symptoms with change in situational exposure. No change in current medications. Hypothyroidism-patient c/o extreme fatigue since dressing dose-repeat labs today-consider thyroid ultrasound 01/07/2019 Appointment: Leydi Hightower WPtel: [phone] [place] (30 min) Complex 01/07/2019 Patient Education: Patient Medication Summary Completed 01/07/2019 Patient Education: Depression Completed 01/07/2019 Visit Plan: MALACHI-patient is not wear ing his CPAP -recommend he follow up with Dr Floyd regarding CPAP as I suspect that is a large part of why he is feeling so fatigued and is not feeling rested when he wakes up. Hy pothyroidism -repeat labs next month -continue same dose of medication B12 def - chronic -B12 injection today in the office 12/27/2018 Appointment: Leydi Hightower WPtel: [phone] [phone] (15 min) Moderate 12/27/2018 Patient Education: Patient Medication Summary Completed 12/27/2018 Visit Plan: Hypothyroidism - pt wit h chronic hypothyroidism, DECREASE MEDICATION DIRECTED, will monitor pt to signs or symptoms of lack of adequate supplementation. Pt is to continue with current dose of medication unless directed otherwise. Check labs at regular intervals q 3 months or q 6 months based on previous levels of control. Chronic Pain Syndrome - pt has chronic pain - has been maintained on current medications, has not sought out other medications, only uses PRN pain medications as directed, and understands the consequences of over-medication. Chronic Depression - the pt has symptoms of chronic anxiety and depression that have been fairly well controlled since the last office visit. The pt has expected periods of exacerbation with abatement of the symptoms with change in situational exposure. No change in current medications. 11/05/2018 Appointment: Leydi Hightower WPtel: [phone] [phone] (30 min) Complex 11/05/2018 Patient Education: Patient Medication Summary Completed 11/05/2018 Patient Education: Depression Completed 11/05/2018 Visit Plan: Chronic pain with recen t increase in joint pain - fatigue -history of tick disease -will send rx for doxycycline to patient's pharmacy and instructed on use- call if symptoms do not improve or if any worse Obesity - chronic issue with this patient and i suspect some of his fatigue is related to his weight-discussed today in the office. The pt has been counseled about diet changes, calorie restriction, and need to exercise. Pt will RTC in one month for weight check. Hypothyroidism - pt with chronic hypothyroidism, continue with current medication, will monitor pt to signs or symptoms of lack of adequate supplementation. Pt is to continue with current dose of medication unless directed otherwise. Check labs at regular intervals q 3 months or q 6 months based on previous levels of control. 09/27/2018 Appointment: Leydi iHghtower WPtel: [phone] [phone] (15 min) Moderate 09/27/2018 Patient Education: Patient Medication Summary Completed 09/27/2018 Patient Education: Depression Completed 09/27/2018 Visit Plan: Medicare Exam - today w e discussed the patients past history, immunizations, preventative exams/evaluations - colonoscopy, fecal occult blood testing, routine labs for renal function, glucose, cholesterol, osteoporosis evaluations, cardiovascular testing and cancer screenings. We have also discussed mental health and the signs/symptoms of depression. The patient was advised of home safety evaluations and the need to make sure that as the aging process continues, we need to be aware of different ways to make the home a safer place to reside. The patient has also been counseled that exercise is necessary - and of utmost importance as we age to help decrease fall risk and to maintain independence in the home. Today we discussed the need for the patient to create paperwork for Advanced directives as well as for the patient to provide this office with a copy of her DOPA paperwork for health care surrogate. 09/17/2018 Appointment: Leydi Hightower WPtel: [phone] [phone] - Annual Wellness Visit 09/17/2018 Patient Education: Patient Medication Summary Completed 09/17/2018 Visit Plan: Chronic Pain Syndrome - pt has chronic pain - has been maintained on current medications, has not sought out other medications, only uses PRN pain medications as directed, and understands the consequences of over-medication. 09/03/2018 [facility]ment[facility] [phone] [phone] ([facility] 09/03/2018 Patient Education: Patient Medication Summary Completed 09/03/2018 Visit Plan: Chronic Pain Syndrome - pt has chronic pain - has been maintained on current medications, has not sought out other medications, only uses PRN pain medications as directed, and understands the consequences of over-medication. Hypothyroidism - pt with chronic hypothyroidism, continue with current medication, will monitor pt to signs or symptoms of lack of adequate supplementation. Pt is to continue with current dose of medication unless directed otherwise. Check labs at regular intervals wither q 3 months or q 6 months based on previous levels of control. Chronic Depression and anxiety - the pt has symptoms of chronic anxiety and depression that have been fairly well controlled since the last office visit. The pt has expected periods of exacerbation with abatement of the symptoms with change in situational exposure. No change in current medications. Fatigue-weight [id number]-[id number] labs including testosterone level 07/05/2018 Visit Plan: Chronic Pain Syndrome - pt has chronic pain - has been maintained on current medications, has not sought out other medications, only uses PRN pain medications as directed, and understands the consequences of over-medication. Hypothyroidism - pt with chronic hypothyroidism, continue with current medication, will monitor pt to signs or symptoms of lack of adequate supplementation. Pt is to continue with current dose of medication unless directed otherwise. Check labs at regular intervals wither q 3 months or q 6 months based on previous levels of control. Chronic Depression and anxiety - the pt has symptoms of chronic anxiety and depression that have been fairly well controlled since the last office visit. The pt has expected periods of exacerbation with abatement of the symptoms with change in situational exposure. No change in current medications. Fatigue-weight jezu-IN-tycri labs including testosterone level 07/05/2018 Appointment: Ley[facility] Hightower [facility]Ptel[facility] [place] [phone] [place] (15 min) Moderate 07/05/2018 Patient Education: Patient Medication Summary Completed 07/05/2018 Care Plan: Comp Metabolic Pending 07/05/2018 Care Plan: Cbc With Differential Pending 07/05/2018 Care Plan: Tsh Pending 07/05/2018 Care Plan: Free T4 Pending 07/05/2018 Care Plan: Total Psa Pending 07/05/2018 Care Plan: Testosterone Pending 07/05/2018 Care Plan: Vitamin D 25 Oh Pending 07/05/2018 Visit Plan: Chronic Pain Syndrome - pt has chronic pain - has been maintained on current medications, has not sought out other medications, only uses PRN pain medications as directed, and understands the consequences of over-medication. Chronic Depression and anxiety - the pt has symptoms of chronic anxiety and depression that have been fairly well controlled since the last office visit. The pt has expected periods of exacerbation with abatement of the symptoms with change in situational exposure. No change in current medications. Hypothyroidism - pt with chronic hypothyroidism, continue with current medicati on, will monitor pt to signs or symptoms of lack of adequate supplementation. Pt is to continue with current dose of medication unless directed otherwise. Check labs at regular intervals wither q 3 months or q 6 months based on previous levels of control. GERD-increase protonix to BID 05/04/2018 Appointment: [facility] [phone] [phone] (15 min) Moderate 05/04/2018 Patient Education: Patient Medication Summary Completed 05/04/2018 Appointment: Nurse Visit 03/29/2018 Visit Plan: Esophageal Reflux - the patient has been counseled against excessive intake of caffeine, spicy foods, peppermint, and cinnamon - all of which can exacerbate esophageal reflux. The patient is to take medications as prescribed and call the office if the symptoms are not improving. Diarrhea - recommended bland diet, low fat diet, start on probiotic, and rehydrate with gatorade-like product. Pt to call if feeling worse, diarrhea becomes bloody, or does not improve with above recommendations. Pt to call for acute worsening of stomach upset or stomach pain. 03/28/2018 Appointment: Denae Mart[facility]nez [facility]Ptel[facility] [phone] [phone] (30 min) Complex 03/28/2018 Appointment: Nurse Visit 03/28/2018 Patient Education: Patient Medication Summary Completed 03/28/2018 Visit Plan: Chronic Pain Syndrome - pt has chronic pain - has been maintained on current medications, has not sought out other medications, only uses PRN pain medications as directed, and understands the consequences of over-medication. Chronic Depression and anxiety - the pt has symptoms of chronic anxiety and depression that have been fairly well controlled since the last office visit. The pt has expected periods of exacerbation with abatement of the symptoms with change in situational exposure. No change in current medications. Hypothyroidism - pt with chronic hypothyroidism, continue with current medicati on, will monitor pt to signs or symptoms of lack of adequate supplementation. Pt is to continue with current dose of medication unless directed otherwise. Check labs at regular intervals wither q 3 months or q 6 months based on previous levels of control. Obesity - chronic issue with this patient. The pt has been counseled about diet changes, calorie restriction, and need to exercise. Pt will RTC in one month for weight check. Sleep apnea-diagnosed years ago but didn't like CPAP -recommend patient have repeat sleep study due to increased fatigue, snoring, etc. Patient refuses at this time. 02/27/2018 Appointment: Leydi Hightower WPtel: [phone] [phone] (15 min) Moderate 02/27/2018 Patient Education: Patient Medication Summary Completed 02/27/2018 Patient Education: Obesity Completed 02/27/2018 Patient Education: Patient Medication Summary Completed 01/04/2018 Patient Education: Patient Medication Summary Completed 12/06/2017 Care Plan: Iron Pending 12/06/2017 Visit Plan: Chronic Pain Syndrome - pt has chronic pain - has been maintained on current medications, has not sought out other medications, only uses PRN pain medications as directed, and understands the consequences of over-medication. Chronic Depression and anxiety - the pt has symptoms of chronic anxiety and depression that have been fairly well controlled since the last office visit. The pt has expected periods of exacerbation with abatement of the symptoms with change in situational exposure. No change in current medications. Hypothyroidism - pt with chronic hypothyroidism, continue with current medicati on, will monitor pt to signs or symptoms of lack of adequate supplementation. Pt is to continue with current dose of medication unless directed otherwise. Check labs at regular intervals wither q 3 months or q 6 months based on previous levels of control. 12/01/2017 Appointment: Denae Mart[facility]nez WPtel[facility] [phone] ([facility] min) Complex 12/01/2017 Patient Education: Patient Medication Summary Completed 12/01/2017 Visit Plan: Chronic Pain Syndrome - pt has chronic pain - has been maintained on current medications, has not sought out other medications, only uses PRN pain medications as directed, and understands the consequences of over-medication. Chronic Depression and anxiety - the pt has symptoms of chronic anxiety and depression that have been fairly well controlled since the last office visit. The pt has expected periods of exacerbation with abatement of the symptoms with change in situational exposure. No change in current medications. Chronic alcohol dependence-alcohol free x 11 days-attending outpatient treatment 09/29/2017 Appointment: Leydi Hightower WPtel: [phone] [phone] (30 min) Complex 09/29/2017 Patient Education: Patient Medication Summary Completed 09/29/2017 Visit Plan: Chronic Pain Syndrome - pt has chronic pain - has been maintained on current medications, has not sought out other medications, only uses PRN pain medications as directed, and understands the consequences of over-medication. Chronic Depression and anxiety - the pt has symptoms of chronic anxiety and depression that have been fairly well controlled since the last office visit. The pt has expected periods of exacerbation with abatement of the symptoms with change in situational exposure. No change in current medications. Chronic alcohol dependence-discussed referral to psychologist-patient will cons ider 08/11/2017 [facility] [phone] [phone] [facility] 08/11/2017 Patient Education: Patient Medication Summary Completed 08/11/2017 Patient Education: Obesity Completed 08/11/2017 Visit Plan: Chronic Pain Syndrome - pt has chronic pain - has been maintained on current medications, has not sought out other medications, only uses PRN pain medications as directed, and understands the consequences of over-medication. We will take over medication management since Dr Perez is leaving. Chronic Depression and anxiety - the pt has symptoms of chronic anxiety and depression that have been fairly well controlled since the last office visit. The pt has expected periods of exacerbation with abatement of the symptoms with change in situational exposure. No change in current medications. 06/09/2017 Appointment: [facility] [phone] [phone] ([facility] Complex 06/09/2017 Patient Education: Patient Medication Summary Completed 06/09/2017 Patient Education: Obesity Completed 06/09/2017 Visit Plan: Chronic Pain Syndrome - pt has chronic pain - has been maintained on current medications, has not sought out other medications, only uses PRN pain medications as directed, and understands the consequences of over-medication. We will take over medication management since Dr Perez is leaving. Left knee pain-patient wants a brace-patient to talk with DME to see what type of brace is covered. 04/07/2017 Patient Education: Patient Medication Summary Completed 04/07/2017 Patient Education: Obesity Completed 04/07/2017 Visit Plan: Thorn left forearm lesi on removed today- instructed patient on wound care-continue anti biotic twice daily for 1 more week-call if symptoms do not completely resolve 11/17/2016 Appointment: Leydi Hightower WPtel: [address] [place], [place] [phone] (30 min) Complex 11/17/2016 Patient Education: Patient Medication Summary Completed 11/17/2016 Visit Plan: Abscess/Cellulitis - Th e patient was instructed in appropriate wound care. The patient was instructed to use the antibiotic ointment as per RX. The patient is to call for any change in symptoms, increase in size of the lesion, increase in pain. 11/10/2016 Visit Plan: Abscess/Cellulitis - Th e patient was instructed in appropriate wound care. The patient was instructed to use the antibiotic ointment as per RX. The patient is to call for any change in symptoms, increase in size of the lesion, increase in pain. 11/10/2016 Appointment: Leydi Hightower WPtel: [address] [place], [place] [phone] (30 min) Complex 11/10/2016 Patient Education: Patient Medication Summary Completed 11/10/2016 Visit Plan: Chronic Pain Syndrome - pt has chronic pain - has been maintained on current medications, has not sought out other medications, only uses PRN pain medications as directed, and understands the consequences of over-medication. Chronic depression-occasional uncontrolled symptoms-increase wellbutrin to 450mg daily-patient will discuss with his and let us know if they agrees to addition of medication. Instructed patient to call if symptoms uncontrolled or if any worse. Patient verbalized understanding of plan. 10/14/2016 Appointment: Leydi Hightower WPtel: [address] [place], [place] [phone] (30 min) Complex 10/14/2016 Patient Education: Patient Medication Summary Completed 10/14/2016 Visit Plan: Insomnia-did not tolera rahat remeron so we start taking trazodone and is doing well-sleep is improved Depression-uncontrolled but denies suicidal ideation-add abilify 2mg daily-continue wellbutrin-follow up in 1 month, sooner if needed. Patient and verbalized understanding if plan. Alchohol use-recommend patient begin cutting back on alcohol intake gradually- patient states he will try 09/16/2016 Appointment: Leydi Hightower WPtel: [phone] [phone] (30 min) Complex 09/16/2016 Patient Education: Patient Medication Summary Completed 09/16/2016 Visit Plan: Left shoulder and elbow pain-xray shoulder and elbow Faeuuqjpwh-itbddzhz-oxpqkfmvdyrx-d/c trazodone-start remeron at bedtime Pt has been counseled about the diagnosis of depression, the potential causes, and risks associated with the diagnosis. The pt denies suicidal ideation, or plans. The patient has been counseled about treatment options, and understands the risks associated with treatment of depression, as well as the risks associated with NOT treating the depression. I believe the pt will benefit from medical intervention and an antidepressant has been appropriately prescribed for this patient. 08/19/2016 Appointment: Leydi Hightower WPtel: [place] [phone] (30 min) Complex 08/19/2016 Patient Education: Patient Medication Summary Completed 08/19/2016 Patient Education: Obesity Completed 08/19/2016 Visit Plan: Esophageal Reflux - the patient has been counseled against excessive intake of caffeine, spicy foods, peppermint, and cinnamon - all of which can exacerbate esophageal reflux. The patient is to take medications as prescribed and call the office if the symptoms are not improving. Hypothyroidism - pt with chronic hypothyroidism, continue with current medication, will monitor pt to signs or symptoms of lack of adequate supplementation. Pt is to continue with current dose of medication unless directed otherwise. Check labs at regular intervals wither q 3 months or q 6 months based on previous levels of control. 06/17/2016 Patient Education: Patient Medication Summary Completed 06/17/2016 Patient Education: Obesity Completed 06/17/2016 Appointment: Leydi Hightower WPtel: [phone] [phone] (30 min) Complex 06/09/2016 Visit Plan: Esophageal Reflux - the patient has been counseled against excessive intake of caffeine, spicy foods, peppermint, and cinnamon - all of which can exacerbate esophageal reflux. The patient is to take medications as prescribed and call the office if the symptoms are not improving. Depression - uncontrolled - Pt has been counseled about the diagnosis of depression, the potential causes, and risks associated with the diagnosis. The pt denies suicidal ideation, or plans. The patient has been counseled about treatment options, and understands the risks associated with treatment of depression, as well as the risks associated with NOT treating the depression. I believe the pt will benefit from medical intervention and an antidepressant has been appropriately prescribed for this patient. Hypothyroidism - pt with chronic hypothyroidism, continue with current medication, will monitor pt to signs or symptoms of lack of adequate supplementation. Pt is to continue with current dose of medication unless directed otherwise. Check labs at regular intervals wither q 3 months or q 6 months based on previous levels of control. 05/12/2016 Appointment: Leydi Hightower WPtel: [address] [place], [place] [phone] (30 min) Complex 05/12/2016 Patient Education: Patient Medication Summary Completed 05/12/2016 Patient Education: Obesity Completed 05/12/2016 Visit Plan: Neck Pain- pt to start with aspercreme or biofreeze to neck three times daily and start neck exercises daily. Hypothyroidism - pt with chronic hypothyroidism, continue with current medication, will monitor pt to signs or symptoms of lack of adequate supplementation. Pt is to continue with current dose of medication unless directed otherwise. Check labs at regular intervals wither q 3 months or q 6 mon ths based on previous levels of control. ED-refill cialis for prn use 02/16/2016 Appointment: (30 min) Complex 02/16/2016 Patient Education: Patient Medication Summary Completed 02/16/2016 Patient Education: .Cervicalgia Neck Pain Completed 02/16/2016 Visit Plan: Chronic pain-managed by Dr Perez-no change in treatments ED-samples of cialis for prn use 11/17/2015 Appointment: (30 min) Complex 11/17/2015 Patient Education: Patient Medication Summary Completed 11/17/2015 Visit Plan: Chronic pain-managed by Dr Perez-not happy with current treatments and medications-instructed him I will speak with Dr Jacobo for her recommendations Hypothyroidism-no change in medications ED-samples of cialis for prn use 08/28/2015 Appointment: (30 min) Complex 08/28/2015 Patient Education: Patient Medication Summary Completed 08/28/2015 Visit Plan: Hypothyroidism - pt wit h chronic hypothyroidism, continue with current medication, will monitor pt to signs or symptoms of lack of adequate supplementation. Pt is to continue with current dose of medication unless directed otherwise. Check labs at regular intervals wither q 3 months or q 6 months based on previous levels of control. Depression - uncontrolled - Pt has been counseled about the diagnosis of depression, the potential causes, and risks associated with the diagnosis. The pt denies suicidal ideation, or plans. The patient has been counseled about treatment options, and understands the risk s associated with treatment of depression, as well as the risks associated with NOT treating the depression. I believe the pt will benefit from medical intervention and an antidepressant has been appropriately prescribed for this patient. Chronic Back pain- Pain medications are managed by Dr. Perez. Bilateral Lower Leg Pain- Physical exam negative. Check D-Dimer today in office. 05/28/2015 Appointment: Leydi Hightower WPtel: [address] [place], [place] [phone] (30 min) Complex 05/28/2015 Patient Education: Patient Medication Summary Completed 05/28/2015 Visit Plan: Hypothyroidism - pt wit h chronic hypothyroidism, continue with current medication, will monitor pt to signs or symptoms of lack of adequate supplementation. Pt is to continue with current dose of medication unless directed otherwise. Check labs at regular intervals wither q 3 months or q 6 months based on previous levels of control. Depression - uncontrolled - Pt has been counseled about the diagnosis of depression, the potential causes, and risks associated with the diagnosis. The pt denies suicidal ideation, or plans. The patient has been counseled about treatment options, and understands the risk s associated with treatment of depression, as well as the risks associated with NOT treating the depression. I believe the pt will benefit from medical intervention and an antidepressant has been appropriately prescribed for this patient. Back pain- See Dr. Perez as scheduled on May 05. Pain medications are managed by Dr. Perez. 04/23/2015 Patient Education: Patient Medication Summary Completed 04/23/2015 Patient Education: [facility] - Saving AutoInj - 18-64 - Dynamic Portal ID Completed 04/23/2015 Patient Education: [facility] - Saving AutoInj - Levothyroxine - -64 - Dynamic Portal ID Completed 04/23/2015 Care Plan: COMPLETE CBC AUTOMATED LOINC : 70977-3 Ordered 04/23/2015 Instructions Comment DECREASE LEVOTHYROXI NE TO 175MCG DAILY -REPEAT LABS IN 3 MONTHS . Hypothyroidism - pt with chronic hypot hyroidism, DECREASE MEDICATION DIRECTED, will monitor pt to signs or symptoms of lack of adequate supplementation. Pt is to continue with current dose of medication unless directed otherwise. Check labs at regular intervals q 3 months or q 6 months based on previous levels of control. Chronic Pain Syndrome - pt has chronic pain - has been maintained on current medications, has not sought out other medications, only uses PRN pain medications as directed, and understands the consequences of over-medication. Chronic Depression - the pt has symptoms of chronic anxiety and depression that have been fairly well controlled since the last office visit. The pt has expected periods of exacerbation with abatement of the symptoms with change in situational exposure. No change in current medications. B12 injection monthl y x 2 months then every other month Contact Dr Floyd about sleep study . MALACHI-patient is not wearing his CPAP -r ecommend he follow up with Dr Floyd regarding CPAP as I suspect that is a large part of why he is feeling so fatigued and is not feeling rested when he wakes up. Hypothyroidism -repeat labs next month -continue same dose of medication B12 def -chronic -B12 injection today in the office Repeat labs in 2 mon ths . Chronic pain with recent increase in joint pain -fatigue -history of tick disease -will send rx for doxycycline to patient's pharmacy and instructed on use- call if symptoms do not improve or if any worse Obesity - chronic issue with this patient and i suspect some of his fatigue is related to his weight-discussed today in the office. The pt has been counseled about diet changes, calorie restriction, and need to exercise. Pt will RTC in one month for weight check. Hypothyroidism - pt with chronic hypothyroidism, continue with current medication, will monitor pt to signs or symptoms of lack of adequate supplementation. Pt is to continue with current dose of medication unless directed otherwise. Check labs at regular intervals q 3 months or q 6 months based on previous levels of control. . Chronic Pain Syndr ome - pt has chronic pain - has been maintained on current medications, has not sought out other medications, only uses PRN pain medications as directed, and understands the consequences of over-medication. Chronic Depression and anxiety - the pt has symptoms of chronic anxiety and depression that have been fairly well controlled since the last office visit. The pt has expected periods of exacerbation with abatement of the symptoms with change in situational exposure. No change in current medications. Hypothyroidism - pt with chronic hypothyroidism, continue with current medication, will monitor pt to signs or symptoms of lack of adequate supplementation. Pt is to continue with current dose of medication unless directed otherwise. Check labs at regular intervals wither q 3 months or q 6 months based on previous levels of control. . Chronic Back pain - the patient was counseled to always first attempt to use modalities other than pain medication for alleviation of the muscle spasms and pain. The patient was also encouraged to continue with back exercises as previously directed. Pt is to use pain medication as directed. If pain medications are used inappropriately or early refills are requested, the patient understands that is a breech of trust/contract and could result in the patient's termination from this medical practice. Hypothyroidism- seeing veterinary medicine teacher . Chronic Pain Syndr ome - pt has chronic pain - has been maintained on current medications, has not sought out other medications, only uses PRN pain medications as directed, and understands the consequences of over-medication. Hypothyroidism - pt with chronic hypothyroidism, continue with current medication, will monitor pt to signs or symptoms of lack of adequate supplementation. Pt is to continue with current dose of medication unless directed otherwise. Check labs at regular intervals wither q 3 months or q 6 months based on previous levels of control. Chronic Depression and anxiety - the pt has symptoms of chronic anxiety and depression that have been fairly well controlled since the last office visit. The pt has expected periods of exacerbation with abatement of the symptoms with change in situational exposure. No change in current medications. Fatigue-weight vdtf-TA-qvqea labs including testosterone level . Chronic Pain Syndr ome - pt has chronic pain - has been maintained on current medications, has not sought out other medications, only uses PRN pain medications as directed, and understands the consequences of over-medication. Hypothyroidism - pt with chronic hypothyroidism, continue with current medication, will monitor pt to signs or symptoms of lack of adequate supplementation. Pt is to continue with current dose of medication unless directed otherwise. Check labs at regular intervals wither q 3 months or q 6 months based on previous levels of control. Chronic Depression and anxiety - the pt has symptoms of chronic anxiety and depression that have been fairly well controlled since the last office visit. The pt has expected periods of exacerbation with abatement of the symptoms with change in situational exposure. No change in current medications. Fatigue-weight mqwt-KQ-suety labs including testosterone level Get Immodium over th e counter for loose stools Will check hgb blood level today Will have you take stool cards home to check for hidden blood in stool - if there is hidden blood we will refer you to Dr. Del Cid for a scope Will have you start carafate to help with reflux. If you are not getting better or your symptoms are getting worse then let me know. . Esophageal Reflux - the patient has been counseled against excessive intake of caffeine, spicy foods, peppermint, and cinnamon - all of which can exacerbate esophageal reflux. The patient is to take medications as prescribed and call the office if the symptoms are not improving. Diarrhea - recommended bland diet, low fat diet, start on probiotic, and rehydrate with gatorade-like product. Pt to call if feeling worse, diarrhea becomes bloody, or does not improve with above recommendations. Pt to call for acute worsening of stomach upset or stomach pain. . Neck Pain- pt to s tart with aspercreme or biofreeze to neck three times daily and start neck exercises daily. Hypothyroidism - pt with chronic hypothyroidism, continue with current medication, will monitor pt to signs or symptoms of lack of adequate supplementation. Pt is to continue with current dose of medication unless directed otherwise. Check labs at regular intervals wither q 3 months or q 6 months based on previous levels of control. ED-refill cialis for prn use Check labs today. W e will call you with the results. Call office or go to the Emergency Room if leg pain worsens. . Hypothyroidism - pt with chronic hypot hyroidism, continue with current medication, will monitor pt to signs or symptoms of lack of adequate supplementation. Pt is to continue with current dose of medication unless directed otherwise. Check labs at regular intervals wither q 3 months or q 6 months based on previous levels of control. Depression - uncontrolled - Pt has been counseled about the diagnosis of depression, the potential causes, and risks associated with the diagnosis. The pt denies suicidal ideation, or plans. The patient has been counseled about treatment options, and understands the risks associated with treatment of depression, as well as the risks associated with NOT treating the depression. I believe the pt will benefit from medical intervention and an antidepressant has been appropriately prescribed for this patient. Chronic Back pain- Pain medications are managed by Dr. Perez. Bilateral Lower Leg Pain- Physical exam negative. Check D-Dimer today in office. . Chronic Pain Syndr ome - pt has chronic pain - has been maintained on current medications, has not sought out other medications, only uses PRN pain medications as directed, and understands the consequences of over-medication. Chronic Depression and anxiety - the pt has symptoms of chronic anxiety and depression that have been fairly well controlled since the last office visit. The pt has expected periods of exacerbation with abatement of the symptoms with change in situational exposure. No change in current medications. Chronic alcohol dependence-alcohol free x 11 days-attending outpatient treatment . Chronic pain-manag ed by Dr Perez-not happy with current treatments and medications-instructed him I will speak with Dr Jacobo for her recommendations Hypothyroidism-no change in medications ED-samples of cialis for prn use STOP TRAZODONE START REMERON AT BEDTIME . Left shoulder and elbow pain-xray shou lder and elbow Cyvgjhqoft-jncxgmjd-dhlvglvpwojp-d/c trazodone-start remeron at bedtime Pt has been counseled about the diagnosis of depression, the potential causes, and risks associated with the diagnosis. The pt denies suicidal ideation, or plans. The patient has been counseled about treatment options, and understands the risks associated with treatment of depression, as well as the risks associated with NOT treating the depression. I believe the pt will benefit from medical intervention and an antidepressant has been appropriately prescribed for this patient. . Abscess/Cellulitis - The patient was instructed in appropriate wound care. The patient was instructed to use the antibiotic ointment as per RX. The patient is to call for any change in symptoms, increase in size of the lesion, increase in pain. . Abscess/Cellulitis - The patient was instructed in appropriate wound care. The patient was instructed to use the antibiotic ointment as per RX. The patient is to call for any change in symptoms, increase in size of the lesion, increase in pain. . Thorn left forearm lesion removed today-instructed patient on wound care-continue anti biotic twice daily for 1 more week-call if symptoms do not completely resolve RECOMMEND SLEEP STUD Y BELVIQ DECREASE LEVOTHYROXINE TO 188MCG DAILY . Chronic Pain Syndrome - pt has chronic pain - has been maintained on current medications, has not sought out other medications, only uses PRN pain medications as directed, and understands the consequences of over-medication. Chronic Depression and anxiety - the pt has symptoms of chronic anxiety and depression that have been fairly well controlled since the last office visit. The pt has expected periods of exacerbation with abatement of the symptoms with change in situational exposure. No change in current medications. Hypothyroidism - pt with chronic hypothyroidism, continue with current medication, will monitor pt to signs or symptoms of lack of adequate supplementation. Pt is to continue with current dose of medication unless directed otherwise. Check labs at regular intervals wither q 3 months or q 6 months based on previous levels of control. Obesity - chronic issue with this patient. The pt has been counseled about diet changes, calorie restriction, and need to exercise. Pt will RTC in one month for weight check. Sleep apnea-diagnosed years ago but didn't like CPAP -recommend patient have repeat sleep study due to increased fatigue, snoring, etc. Patient refuses at this time. . Hypothyroidism -re sierra to Noemi Yan at [facility] Chronic Pain Syndrome - pt has chronic pain - has been maintained on current medications, has not sought out other medications, only uses PRN pain medications as directed, and understands the consequences of over-medication. . Hypothyroidism - p t with chronic hypothyroidism, continue with current medication, will monitor pt to signs or symptoms of lack of adequate supplementation. Pt is to continue with current dose of medication unless directed otherwise. Check labs at regular intervals wither q 3 months or q 6 months based on previous levels of control. Depression - uncontrolled - Pt has been counseled about the diagnosis of depression, the potential causes, and risks associated with the diagnosis. The pt denies suicidal ideation, or plans. The patient has been counseled about treatment options, and understands the risks associated with treatment of depression, as well as the risks associated with NOT treating the depression. I believe the pt will benefit from medical intervention and an antidepressant has been appropriately prescribed for this patient. Back pain- See Dr. Perez as scheduled on May 05. Pain medications are managed by Dr. Perez. Refill baclofen and wellbutrin. Consider increasing wellbutrin to 450 mg/day for severe depression. ASK YOUR IF IT WOULD BE AFFORDABLE TO ADD BUPRORION 150MG TABLET TO YOUR 300MG TABLET. IT WOULD BE 2 COPAYS BUT MAY HELP WITH YOUR DEPRESSION . Chronic Pain Syndrome - pt has chronic pain - has been maintained on current medications, has not sought out other medications, only uses PRN pain medications as directed, and understands the consequences of over-medication. Chronic depression-occasional uncontrolled symptoms-increase wellbutrin to 450mg daily-patient will discuss with his and let us know if they agrees to addition of medication. Instructed patient to call if symptoms uncontrolled or if any worse. Patient verbalized understanding of plan. Increase wellbutrin XL to 300mg daily . Esophageal Reflux - the patient has been counseled against excessive intake of caffeine, spicy foods, peppermint, and cinnamon - all of which can exacerbate esophageal reflux. The patient is to take medications as prescribed and call the office if the symptoms are not improving. Depression - uncontrolled - Pt has been counseled about the diagnosis of depression, the potential causes, and risks associated with the diagnosis. The pt denies suicidal ideation, or plans. The patient has been counseled about treatment options, and understands the risks associated with treatment of depression, as well as the risks associated with NOT treating the depression. I believe the pt will benefit from medical intervention and an antidepressant has been appropriately prescribed for this patient. Hypothyroidism - pt with chronic hypothyroidism, continue with current medication, will monitor pt to signs or symptoms of lack of adequate supplementation. Pt is to continue with current dose of medication unless directed otherwise. Check labs at regular intervals wither q 3 months or q 6 months based on previous levels of control. . Chronic Pain Syndr ome - pt has chronic pain - has been maintained on current medications, has not sought out other medications, only uses PRN pain medications as directed, and understands the consequences of over-medication. We will take over medication management since Dr Perez is leaving. Chronic Depression and anxiety - the pt has symptoms of chronic anxiety and depression that have been fairly well controlled since the last office visit. The pt has expected periods of exacerbation with abatement of the symptoms with change in situational exposure. No change in current medications. . Chronic Pain Syndr ome - pt has chronic pain - has been maintained on current medications, has not sought out other medications, only uses PRN pain medications as directed, and understands the consequences of over-medication. We will take over medication management since Dr Perez is leaving. Left knee pain-patient wants a brace-patient to talk with DME to see what type of brace is covered. . Chronic Pain Syndr ome - pt has chronic pain - has been maintained on current medications, has not sought out other medications, only uses PRN pain medications as directed, and understands the consequences of over-medication. Chronic Depression and anxiety - the pt has symptoms of chronic anxiety and depression that have been fairly well controlled since the last office visit. The pt has expected periods of exacerbation with abatement of the symptoms with change in situational exposure. No change in current medications. Chronic alcohol dependence-discussed referral to psychologist-patient will consider ABILIFY 2mg daily WORK ON CUTTING BACK ALCOHOL INTAKE . Insomnia-did not tolerated remeron so we start taking trazodone and is doing well-sleep is improved Depression-uncontrolled but denies suicidal ideation-add abilify 2mg daily- continue wellbutrin-follow up in 1 month, sooner if needed. Patient and verbalized understanding if plan. Alchohol use-recommend patient begin cutting back on alcohol intake gradually- patient states he will try . Chronic Pain Syndr ome - pt has chronic pain - has been maintained on current medications, has not sought out other medications, only uses PRN pain medications as directed, and understands the consequences of over-medication. Hypothyroidism -managed by veterinary medicine teacher Depression -not well controlled -taking 1/2 tab of remeron -increase to a full tab -follow up in 2 months, discussed switching medication if no improvement. Instructed patient and his to call if symptoms do not improve or if any worse. . Chronic pain-manag ed by Dr Perez-no change in treatments ED-samples of cialis for prn use . Chronic Pain Syndr ome - pt has chronic pain - has been maintained on current medications, has not sought out other medications, only uses PRN pain medications as directed, and understands the consequences of over-medication. Chronic Depression - the pt has symptoms of chronic anxiety and depression that have been fairly well controlled since the last office visit. The pt has expected periods of exacerbation with abatement of the symptoms with change in situational exposure. No change in current medications. Hypothyroidism-patient c/o extreme fatigue since dressing dose-repeat labs today-consider thyroid ultrasound . Medicare Exam - to day we discussed the patients past history, immunizations, preventative exams/evaluations - colonoscopy, fecal occult blood testing, routine labs for renal function, glucose, cholesterol, osteoporosis evaluations, cardiovascular testing and cancer screenings. We have also discussed mental health and the signs/symptoms of depression. The patient was advised of home safety evaluations and the need to make sure that as the aging process continues, we need to be aware of different ways to make the home a safer place to reside. The patient has also been counseled that exercise is necessary - and of utmost importance as we age to help decrease fall risk and to maintain independence in the home. Today we discussed the need for the patient to create paperwork for Advanced directives as well as for the patient to provide this office with a copy of her [employer]OP[employer] paperwork for health care surrogate. . Chronic Pain Syndr ome - pt has chronic pain - has been maintained on current medications, has not sought out other medications, only uses PRN pain medications as directed, and understands the consequences of over-medication. CHECK LABS AT NEXT A PPT INCREASE ACID COUNTER CLERK TO TWICE DAILY . Chronic Pain Syndrome - pt has chronic pain - has been maintained on current medications, has not sought out other medications, only uses PRN pain medications as directed, and understands the consequences of over-medication. Chronic Depression and anxiety - the pt has symptoms of chronic anxiety and depression that have been fairly well controlled since the last office visit. The pt has expected periods of exacerbation with abatement of the symptoms with change in situational exposure. No change in current medications. Hypothyroidism - pt with chronic hypothyroidism, continue with current medication, will monitor pt to signs or symptoms of lack of adequate supplementation. Pt is to continue with current dose of medication unless directed otherwise. Check labs at regular intervals wither q 3 months or q 6 months based on previous levels of control. GERD-increase protonix to BID . Esophageal Reflux - the patient has been counseled against excessive intake of caffeine, spicy foods, peppermint, and cinnamon - all of which can exacerbate esophageal reflux. The patient is to take medications as prescribed and call the office if the symptoms are not improving. Hypothyroidism - pt with chronic hypothyroidism, continue with current medication, will monitor pt to signs or symptoms of lack of adequate supplementation. Pt is to continue with current dose of medication unless directed otherwise. Check labs at regular intervals wither q 3 months or q 6 months based on previous levels of control.
--- OUTSIDE RECORDS SUMMARY | 2020-03-17 14:22 | XMS REPORT | CCD ---
Author Author Thai Castillo Organization Sara Jacobo MD, [facility] Address [address] [place] [address] Phone Care Team Providers Care Chief Financial Officer Name Role Phone PP Unavailable CCM Unavailable Summary Purpose Interface Exchange Insurance Providers Payer name Policy type / Coverage type Covered green party ID Effective Begin Date Effective End Date WPS Medicare Part B Medicare Part B [id number] Unknown [facility] icare Part B [id number] Un known Family history Father Diagnosis Age At Onset Colon cancer Unknown Social History Social History Element Codes Description Effective Dates Employment Unknown [employer] nt[employer] unemployed Before disability 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 On Disability Unknown Yes 09/27/2018 Marital status Unknown D ivorced 04/23/[address]: 088154958 Never smoker 04/23/[address]: 930018 Currently drinks alcohol occasionally drinks 04/23/2015 Allergies, [...] Date Stop Date Sta tus Fill Instructions Remeron 15 mg tablet RxNorm: 796421 1 Tablet(s) PO QHS 07/25/2019 01/20/2020 Active levothyroxine 150 mc g tablet RxNorm: 107862 1 Tablet(s) PO daily 07/18/2019 No Stop Date Active Updated script morphine 30 mg table t, crush resistant, extended release RxNorm: 1055172 1 Tablet(s) PO BID 07/18/2019 09/15/2019 Active oxymorphone 5 mg tablet RxNorm: 734965 1 Tablet(s) PO Q6 PRN 07/18/2019 09/15/2019 Active Remeron 15 mg tablet RxNorm: 580087 1 Tablet(s) PO QPM TAKE ONE TABLET BY [facility] EVERY NIGHT AT BEDTIME 07/18/2019 10/15/2019 Active Provigil 100 mg tablet RxNorm: 217794 1 Tablet(s) PO daily 07/18/2019 08/11/2019 Inactive morphine 30 mg table t, crush resistant, extended release RxNorm: 7988157 1 Tablet(s) PO BID 07/05/2019 07/17/2019 Inactive doxycycline hyclate 100 mg tablet RxNorm: 0428172 1 Tablet(s) PO BID 06/21/2019 07/20/2019 Inactive Provigil 100 mg tablet RxNorm: 648341 1 Tablet(s) PO daily 06/12/2019 06/11/2019 Inactive Provigil 100 mg tablet RxNorm: 162113 1 Tablet(s) PO daily 06/12/2019 07/17/2019 Inactive baclofen 10 mg tablet RxNorm: 115883 TAKE ONE TABLET BY MOUTH THREE TIMES A D AY NEEDED 05/28/2019 09/24/2019 Active tizanidine 4 mg tablet RxNorm: 441441 TAKE ONE TABLET BY MOUTH THREE TIMES A D AY NEEDED 05/28/2019 09/24/2019 Active diclofenac sodium 75 mg tablet,delayed release RxNorm: 713303 TAKE ONE TABLET BY [facility] TWICE A DAY 05/21/2019 10/17/2019 Active doxycycline hyclate 100 mg tablet RxNorm: 5543877 1 Tablet(s) PO BID 05/14/2019 05/23/2019 Inactive oxymorphone 5 mg tablet RxNorm: 657964 1 Tablet(s) PO Q6 PRN 05/14/2019 07/12/2019 Inactive morphine 30 mg table t, crush resistant, extended release RxNorm: 2086954 1 Tablet(s) PO BID 05/14/2019 06/12/2019 Inactive morphine 30 mg table t, crush resistant, extended release RxNorm: 5211214 1 Tablet(s) PO BID 05/07/2019 05/13/2019 Inactive trazodone 50 mg tablet RxNorm: 686814 1.5 Tablet(s) PO QHS TAKE ONE TABLET BY MOUTH EVERY NIGHT AT BEDTIME AND ONE-HALF TABLET BY MOUTH NEEDED 03/12/2019 06/09/2019 Inactive morphine 30 mg table t, crush resistant, extended release RxNorm: 5316736 1 Tablet(s) PO BID 03/12/2019 04/10/2019 Inactive levothyroxine 200 mc g tablet RxNorm: 513310 1 Tablet(s) PO daily TAKE ONE TABLET BY MOUTH DAILY 03/12/2019 07/17/2019 Inactive Updated script oxymorphone 5 mg tablet RxNorm: 644394 1 Tablet(s) PO Q6 PRN 03/12/2019 05/10/2019 Inactive doxycycline hyclate 100 mg tablet RxNorm: 2567206 1 Tablet(s) PO BID 03/12/2019 03/21/2019 Inactive morphine 30 mg table t, crush resistant, extended release RxNorm: 3846147 1 Tablet(s) PO BID 03/06/2019 03/11/2019 Inactive tizanidine 4 mg tablet RxNorm: 507396 TAKE ONE TABLET BY MOUTH THREE TIMES A D AY NEEDED 02/26/2019 05/26/2019 Inactive diclofenac sodium 75 mg tablet,delayed release RxNorm: 189282 TAKE ONE TABLET BY [facility] TWICE A DAY 02/18/2019 05/18/2019 Inactive Protonix 40 mg table t,delayed release RxNorm: 512808 TAKE ONE TABLET BY [facility] DAILY 02/06/2019 09/03/2019 Ac tive trazodone 50 mg tablet RxNorm: 188854 TAKE ONE TABLET BY MOUTH EVERY NIGHT AT BEDTIME AND ONE-HALF TABLET BY MOUTH NEEDED 01/14/2019 03/11/2019 Inactive oxymorphone 5 mg tablet RxNorm: 318127 1 Tablet(s) PO Q6 PRN 01/07/2019 03/07/2019 Inactive morphine 30 mg table t, crush resistant, extended release RxNorm: 9845703 1 Tablet(s) PO BID 01/07/2019 03/05/2019 Inactive doxycycline hyclate 100 mg tablet RxNorm: 8662647 1 Tablet(s) PO BID 01/01/2019 01/10/2019 Inactive cyanocobalamin (vit B-12) 1,000 mcg/mL injection solution RxNorm: 840757 1 Milliliter(s) Inj 12/27/2018 12/27/2018 Inactive baclofen 10 mg tablet RxNorm: 445258 TAKE ONE TABLET BY MOUTH THREE TIMES A D AY NEEDED 11/29/2018 03/28/2019 Inactive Request already responded t o by other means (e.g. phone or fax) baclofen 10 mg tablet RxNorm: 041473 Tablet(s) TAKE ONE TABLET BY MOUTH THREE TIMES A DAY NEEDED 11/28/2018 11/28/2018 Inactive doxycycline hyclate 100 mg tablet RxNorm: 6377458 1 Tablet(s) PO BID 11/14/2018 11/23/2018 Inactive trazodone 50 mg tablet RxNorm: 587104 TAKE ONE TABLET BY MOUTH EVERY NIGHT AT BEDTIME AND ONE-HALF TABLET BY MOUTH NEEDED 11/12/2018 12/21/2018 Inactive tizanidine 4 mg tablet RxNorm: 780578 TAKE ONE TABLET BY MOUTH THREE TIMES A D AY NEEDED 10/22/2018 02/18/2019 Inactive diclofenac sodium 75 mg tablet,delayed release RxNorm: 518151 TAKE ONE TABLET BY [facility] TWICE A DAY 10/15/2018 02/11/2019 Inactive Lasix 20 mg tablet RxNorm: 953083 1 Tablet(s) PO daily as needed 10/10/2018 11/08/2018 In active potassium chloride E R 10 mEq tablet,extended release RxNorm: 397602 1 Tablet(s) PO daily as needed to take with lasix for inceased edema 10/10/2018 11/08/2018 Inactive potassium chloride E R 10 mEq tablet,extended release RxNorm: 795549 1 Tablet(s) PO daily as needed to take with lasix for inceased edema 10/10/2018 10/09/2018 Inactive Lasix 20 mg tablet RxNorm: 233582 1 Tablet(s) PO daily as needed 10/10/2018 10/09/2018 In active doxycycline hyclate 100 mg tablet RxNorm: 6542866 1 Tablet(s) PO BID 09/27/2018 10/10/2018 Inactive Remeron 15 mg tablet RxNorm: 821421 1.5 Tablet(s) PO QPM TAKE ONE TABLET BY MOUTH EVERY NIGHT AT BEDTIME 09/18/2018 12/16/2018 Inactive baclofen 10 mg tablet RxNorm: 334058 TAKE ONE TABLET BY MOUTH THREE TIMES A D AY NEEDED 09/12/2018 11/10/2018 Inactive Remeron 15 mg tablet RxNorm: 582303 1.5 Tablet(s) PO QPM TAKE ONE TABLET BY MOUTH EVERY NIGHT AT BEDTIME 09/03/2018 09/17/2018 Inactive oxymorphone 5 mg tablet RxNorm: 902973 1 Tablet(s) PO Q6 PRN 09/03/2018 11/01/2018 Inactive morphine 30 mg table t, crush resistant, extended release RxNorm: 1901838 1 Tablet(s) PO BID 09/03/2018 11/01/2018 Inactive trazodone 50 mg tablet RxNorm: 426465 TAKE ONE TABLET BY MOUTH EVERY NIGHT AT BEDTIME AND ONE-HALF TABLET BY MOUTH NEEDED 09/03/2018 10/12/2018 Inactive tizanidine 4 mg tablet RxNorm: 870622 TAKE ONE TABLET BY MOUTH THREE TIMES A D AY NEEDED 08/20/2018 10/18/2018 Inactive Protonix 40 mg table t,delayed release RxNorm: 399388 TAKE ONE TABLET BY [facility] DAILY 08/10/2018 02/05/2019 In active Carafate 1 gram tablet RxNorm: 167418 TAKE ONE TABLET BY MOUTH BEFORE MEALS AN D AT BEDTIME NEEDED FOR HEARTBURN 07/31/2018 12/27/2018 Inactive Protonix 40 mg table t,delayed release RxNorm: 719380 1 Tablet(s) BID 07/24/2018 07/23/2018 Inactive Protonix 40 mg table t,delayed release RxNorm: 881809 1 Tablet(s) daily 07/24/2018 08/09/2018 In active liothyronine 5 mcg t ablet RxNorm: 498051 TAKE ONE TABLET BY [facility] DAILY 07/19/2018 01/09/2019 In active baclofen 10 mg tablet RxNorm: 036575 TAKE ONE TABLET BY MOUTH THREE TIMES A D AY NEEDED 07/12/2018 09/09/2018 Inactive levothyroxine 175 mc g tablet RxNorm: 982371 1 Tablet(s) PO daily 07/11/2018 03/11/2019 Inactive Vitamin D2 50,000 un it capsule RxNorm: 5528644 1 Capsule(s) PO QW 07/11/2018 10/02/2018 Inactive trazodone 50 mg tablet RxNorm: 721973 TAKE ONE TABLET BY MOUTH EVERY NIGHT AT BEDTIME AND ONE-HALF TABLET BY MOUTH NEEDED 07/11/2018 08/19/2018 Inactive Vitamin D2 50,000 un it capsule RxNorm: 5785103 1 Capsule(s) PO QW 07/11/2018 07/10/2018 Inactive morphine 30 mg table t, crush resistant, extended release RxNorm: 6135067 1 Tablet(s) PO BID 07/05/2018 09/02/2018 Inactive oxymorphone 5 mg tablet RxNorm: 090808 1 Tablet(s) PO Q6 PRN 07/05/2018 09/02/2018 Inactive Remeron 15 mg tablet RxNorm: 296423 TAKE ONE TABLET BY MOUTH EVERY NIGHT AT BEDTIME 06/27/2018 09/02/2018 Inactive bupropion HCl XL 300 mg 24 hr tablet, extended release RxNorm: 869780 TAKE ONE TABLET BY MOUTH DAILY 06/27/2018 07/17/2019 Inactive tizanidine 4 mg tablet RxNorm: 342019 TAKE ONE TABLET BY MOUTH THREE TIMES A D AY NEEDED 06/20/2018 08/18/2018 Inactive doxycycline hyclate 100 mg tablet RxNorm: 1466230 1 Tablet(s) PO BID 06/18/2018 07/01/2018 Inactive Protonix 40 mg table t,delayed release RxNorm: 651242 TAKE ONE TABLET BY MO [facility] DAILY 06/11/2018 07/23/2018 In active doxycycline hyclate 100 mg tablet RxNorm: 3790342 1 Tablet(s) PO BID 05/22/2018 06/04/2018 Inactive baclofen 10 mg tablet RxNorm: 939425 TAKE ONE TABLET BY MOUTH THREE TIMES A D AY NEEDED 05/14/2018 07/11/2018 Inactive diclofenac sodium 75 mg tablet,delayed release RxNorm: 187057 TAKE ONE TABLET BY [facility] TWICE A DAY 05/07/2018 10/03/2018 Inactive oxymorphone 5 mg tablet RxNorm: 498615 1 Tablet(s) PO Q6 PRN 05/04/2018 07/02/2018 Inactive morphine 30 mg table t, crush resistant, extended release RxNorm: 2361847 1 Tablet(s) PO BID 05/04/2018 07/02/2018 Inactive doxycycline hyclate 100 mg tablet RxNorm: 395249 1 Tablet(s) PO BID 04/24/2018 04/23/2018 Inactive doxycycline hyclate 100 mg tablet RxNorm: 3577019 1 Tablet(s) PO BID 04/24/2018 05/03/2018 Inactive baclofen 10 mg tablet RxNorm: 585141 TAKE ONE TABLET BY MOUTH THREE TIMES A D AY NEEDED 04/13/2018 05/12/2018 Inactive trazodone 50 mg tablet RxNorm: 083899 TAKE ONE TABLET BY MOUTH EVERY NIGHT AT BEDTIME AND ONE-HALF TABLET BY MOUTH NEEDED 04/09/2018 06/07/2018 Inactive Questran 4 gram powd er for susp in a packet RxNorm: 850723 1 packet PO BID 04/06/2018 06/04/2018 In active Questran 4 gram powd er for susp in a packet RxNorm: 047465 1 packet PO BID 04/06/2018 04/05/2018 In active Carafate 1 gram tablet RxNorm: 189105 1 Tablet(s) PO AC & HS as needed for hea rtburn 03/28/2018 04/26/2018 Inactive baclofen 10 mg tablet RxNorm: 237981 TAKE ONE TABLET BY MOUTH THREE TIMES A D AY NEEDED 03/16/2018 04/12/2018 Inactive Protonix 40 mg table t,delayed release RxNorm: 585486 TAKE ONE TABLET BY [facility] DAILY 03/16/2018 06/10/2018 In active oxymorphone 5 mg tablet RxNorm: 737407 1 Tablet(s) PO Q6 PRN 02/27/2018 04/27/2018 Inactive morphine 30 mg table t, crush resistant, extended release RxNorm: 9213215 1 Tablet(s) PO BID 02/27/2018 04/27/2018 Inactive Belviq XR 20 mg tabl et,extended release RxNorm: 4158543 1 Tablet(s) PO daily 02/27/2018 01/06/2019 In active levothyroxine 100 mc g tablet RxNorm: 271987 1 Tablet(s) PO daily 02/27/2018 07/10/2018 Inactive take with 88mcg to = 188mcg daily levothyroxine 88 mcg tablet RxNorm: 918535 1 Tablet(s) PO daily 02/27/2018 07/10/2018 Inactive take with 100mcg to = 188mcg daily morphine 30 mg table t, crush resistant, extended release RxNorm: 1705045 1 Tablet(s) PO BID 02/14/2018 02/26/2018 Inactive levothyroxine 200 mc g tablet RxNorm: 915518 Tablet(s) TAKE ONE TA BLET BY MOUTH DAILY 01/18/2018 02/26/2018 Inactive Updated script baclofen 10 mg tablet RxNorm: 529434 Tablet(s) TAKE ONE TABLET BY MOUTH THREE TIMES A DAY NEEDED 01/15/2018 02/13/2018 Inactive morphine 30 mg table t, crush resistant, extended release RxNorm: 5689687 1 Tablet(s) PO BID 01/15/2018 02/13/2018 Inactive tizanidine 4 mg tablet RxNorm: 959711 TAKE ONE TABLET BY MOUTH THREE TIMES A D AY NEEDED 01/02/2018 04/01/2018 Inactive Request already responded t o by other means (e.g. phone or fax) bupropion HCl XL 300 mg 24 hr tablet, extended release RxNorm: 676533 TAKE ONE TABLET BY MOUTH DAILY 12/29/2017 06/26/2018 Inactive Tamiflu 75 mg capsule RxNorm: 148653 1 Capsule(s) PO BID 12/27/2017 12/31/2017 Inactive Tamiflu 75 mg capsule RxNorm: 411120 1 Capsule(s) PO BID 12/27/2017 12/26/2017 Inactive tizanidine 4 mg tablet RxNorm: 583407 1 Tablet(s) PO TID as needed 12/25/2017 01/01/2018 Inactive levothyroxine 175 mc g tablet RxNorm: 981557 1 Tablet(s) PO daily 12/14/2017 12/13/2017 Inactive levothyroxine 175 mc g tablet RxNorm: 369115 1 Tablet(s) PO daily 12/14/2017 01/17/2018 Inactive baclofen 10 mg tablet RxNorm: 744691 Tablet(s) TAKE ONE TABLET BY MOUTH THREE TIMES A DAY NEEDED 12/13/2017 01/11/2018 Inactive baclofen 10 mg tablet RxNorm: 785615 TAKE ONE TABLET BY MOUTH THREE TIMES A D AY NEEDED 12/13/2017 12/12/2017 Inactive morphine 30 mg table t, crush resistant, extended release RxNorm: 8946270 1 Tablet(s) PO BID 12/12/2017 01/14/2018 Inactive trazodone 50 mg tablet RxNorm: 924825 1/2 to 1 Tablet(s) QHS as needed 12/01/2017 03/30/2018 In active clonazepam 1 mg tablet RxNorm: 508500 1/2 Tablet(s) PO daily 12/01/2017 07/17/2019 Inactive Opana ER 15 mg table t, crush resistant, extended release RxNorm: 471879 1 Tablet(s) PO Q12H 12/01/2017 02/13/2018 Inactive oxymorphone 5 mg tablet RxNorm: 686531 1 Tablet(s) PO Q6 PRN 12/01/2017 02/26/2018 Inactive Remeron 15 mg tablet RxNorm: 398260 Tablet(s) TAKE ONE TABLET BY MOUTH EVERY NIGHT AT BEDTIME 12/01/2017 02/28/2018 Inactive trazodone 50 mg tablet RxNorm: 880040 1/2 Tablet(s) as needed 1 Tablet(s) PO Q HS 12/01/2017 11/30/2017 In active clonazepam 1 mg tablet RxNorm: 492881 1/2 Tablet(s) PO daily 11/30/2017 11/30/2017 Inactive Remeron 15 mg tablet RxNorm: 503638 TAKE ONE TABLET BY MOUTH EVERY NIGHT AT BEDTIME 11/29/2017 11/30/2017 Inactive levothyroxine 200 mc g tablet RxNorm: 863139 TAKE ONE TABLET BY MO [facility] DAILY 11/15/2017 12/13/2017 In active baclofen 10 mg tablet RxNorm: 608793 TAKE ONE TABLET BY MOUTH THREE TIMES A D AY NEEDED 11/07/2017 12/06/2017 Inactive diclofenac sodium 75 mg tablet,delayed release RxNorm: 725436 1 Tablet(s) PO BID 11/07/2017 05/05/2018 In active liothyronine 5 mcg t ablet RxNorm: 534054 TAKE ONE TABLET BY [facility] DAILY 10/27/2017 07/18/2018 In active tizanidine 4 mg tablet RxNorm: 170977 1 Tablet(s) PO TID as needed 10/18/2017 12/16/2017 Inactive oxymorphone 5 mg tablet RxNorm: 659961 1 Tablet(s) PO Q6 PRN 09/29/2017 11/27/2017 Inactive morphine 30 mg table t, crush resistant, extended release RxNorm: 1424394 1 Tablet(s) PO BID 09/29/2017 11/28/2017 Inactive baclofen 10 mg tablet RxNorm: 027891 1 Tablet(s) PO TID as needed 09/11/2017 10/10/2017 Inactive baclofen 10 mg tablet RxNorm: 939901 1 Tablet(s) PO TID as needed 08/11/2017 09/09/2017 Inactive Opana ER 15 mg table t, crush resistant, extended release RxNorm: 111120 1 Tablet(s) PO Q12H 08/11/2017 09/28/2017 Inactive Remeron 15 mg tablet RxNorm: 415671 TAKE ONE TABLET BY MOUTH EVERY NIGHT AT BEDTIME 08/02/2017 10/30/2017 Inactive oxymorphone 5 mg tablet RxNorm: 896652 1 Tablet(s) PO Q6 PRN 08/02/2017 09/28/2017 Inactive Opana ER 5 mg tablet , crush resistant, extended release RxNorm: 823612 1 Tablet(s) PO Q6 PRN 08/01/2017 08/10/2017 Inactive Protonix 40 mg table t,delayed release RxNorm: 447488 TAKE ONE TABLET BY [facility] DAILY 06/26/2017 06/25/2017 In active Protonix 40 mg table t,delayed release RxNorm: 271252 TAKE ONE TABLET BY [facility] DAILY 06/26/2017 02/05/2019 In active bupropion HCl XL 300 mg 24 hr tablet, extended release RxNorm: 734224 TAKE ONE TABLET BY MOUTH DAILY 06/13/2017 12/09/2017 Inactive tizanidine 4 mg tablet RxNorm: 250475 1 Tablet(s) PO TID as needed 06/13/2017 06/12/2017 Inactive tizanidine 4 mg tablet RxNorm: 392607 1 Tablet(s) PO TID as needed 06/13/2017 09/10/2017 Inactive baclofen 10 mg tablet RxNorm: 722856 1 Tablet(s) PO TID as needed 06/13/2017 07/12/2017 Inactive Opana ER 15 mg table t, crush resistant, extended release RxNorm: 148591 1 Tablet(s) PO Q12H 06/09/2017 08/07/2017 Inactive Opana ER 5 mg tablet , crush resistant, extended release RxNorm: 977451 1 Tablet(s) PO Q6 PRN 06/09/2017 07/31/2017 Inactive diclofenac sodium 75 mg tablet,delayed release RxNorm: 866822 1 Tablet(s) PO BID 06/09/2017 09/06/2017 In active clonazepam 1 mg tablet RxNorm: 718252 1/2 Tablet(s) PO daily 05/24/2017 11/18/2017 Inactive bupropion HCl XL 300 mg 24 hr tablet, extended release RxNorm: 159369 TAKE ONE TABLET BY MOUTH DAILY 03/16/2017 06/12/2017 Inactive clonazepam 1 mg tablet RxNorm: 308109 1/2 Tablet(s) PO daily 02/22/2017 05/18/2017 Inactive Remeron 15 mg tablet RxNorm: 638739 TAKE ONE TABLET BY MOUTH EVERY NIGHT AT BEDTIME 02/06/2017 2017 Inactive Protonix 40 mg table t,delayed release RxNorm: 140513 TAKE ONE TABLET BY MO UT DAILY 01/26/2017 06/24/2017 In active mupirocin 2 % topica l ointment RxNorm: 568095 1 Application TOP BID 01/12/2017 01/18/2017 Inactive Bactrim DS 800 mg-16 0 mg tablet RxNorm: 617961 1 Tablet(s) PO BID 11/17/2016 11/23/2016 Inactive mupirocin 2 % topica l ointment RxNorm: 829953 1 Application TOP BID 11/10/2016 11/16/2016 Inactive Bactrim DS 800 mg-16 0 mg tablet RxNorm: 157939 1 Tablet(s) PO BID 11/10/2016 11/16/2016 Inactive bupropion HCl XL 300 mg 24 hr tablet, extended release RxNorm: 005664 TAKE ONE TABLET BY MOUTH DAILY 11/07/2016 03/06/2017 Inactive liothyronine 5 mcg t ablet RxNorm: 235824 1 Tablet(s) PO daily 11/01/2016 10/26/2017 Inactive levothyroxine 200 mc g tablet RxNorm: 352317 1 Tablet(s) PO daily 10/04/2016 09/28/2017 Inactive clonazepam 1 mg tablet RxNorm: 310603 1/2 Tablet(s) PO daily 09/21/2016 03/18/2017 Inactive clonazepam 1 mg tablet RxNorm: 782132 1/2 Tablet(s) PO daily 09/16/2016 09/20/2016 Inactive Abilify 2 mg tablet RxNorm: 729760 1 Tablet(s) PO daily 09/16/2016 10/13/2016 Inactive trazodone 50 mg tablet RxNorm: 598420 1/2 Tablet(s) as needed 1 Tablet(s) PO Q HS 09/16/2016 01/13/2017 In active morphine 15 mg immed iate release tablet RxNorm: 929155 1 Tablet(s) PO Q6 PRN 09/16/2016 04/06/2017 In active baclofen 10 mg tablet RxNorm: 031370 1 Tablet(s) PO TID as needed 09/16/2016 06/12/2017 Inactive MS Contin 30 mg tabl et,extended release RxNorm: 688980 1 Tablet(s) PO Q12H 09/16/2016 04/06/2017 In active Remeron 15 mg tablet RxNorm: 515649 1 Tablet(s) PO QHS 08/19/2016 09/15/2016 Inactive levothyroxine 200 mc g tablet RxNorm: 098591 1 Tablet(s) PO daily 08/11/2016 10/03/2016 Inactive bupropion HCl XL 300 mg 24 hr tablet, extended release RxNorm: 966063 TAKE ONE TABLET BY MOUTH DAILY 08/11/2016 11/06/2016 Inactive Protonix 40 mg table t,delayed release RxNorm: 478630 1 Tablet(s) PO daily 06/17/2016 12/13/2016 In active bupropion HCl XL 300 mg 24 hr tablet, extended release RxNorm: 236996 1 Tablet(s) PO daily 05/12/2016 07/10/2016 Inactive bupropion HCl XL 300 mg 24 hr tablet, extended release RxNorm: 266770 1 Tablet(s) PO daily 05/12/2016 05/11/2016 Inactive Cialis 20 mg tablet RxNorm: 906583 1 Tablet(s) PO PRN 02/16/2016 No Stop Date Active not more than 1 tab in 24 hours morphine ER 10 mg ca psule,extended release pellets RxNorm: 429208 1 Tablet(s) PO Q6 as needed 02/16/2016 11/16/2016 Inactive clonazepam 1 mg tablet RxNorm: 040167 1/2 Tablet(s) PO BID 02/16/2016 09/15/2016 Inactive trazodone 50 mg tablet RxNorm: 170670 1/2 Tablet(s) as needed 1 Tablet(s) PO Q HS 02/16/2016 08/18/2016 In active trazodone 50 mg tablet RxNorm: 718350 1/2 Tablet(s) 1 Tablet(s) PO QHS 11/17/2015 02/15/2016 In active trazodone 50 mg tablet RxNorm: 634254 1 Tablet(s) PO QHS 10/19/2015 11/16/2015 Inactive levothyroxine 200 mc g tablet RxNorm: 563987 1 Tablet(s) PO daily 10/02/2015 08/10/2016 Inactive Wellbutrin XL 150 mg 24 hr tablet, extended release RxNorm: 993793 1 Tablet(s) PO daily 10/02/2015 05/11/2016 Inactive levothyroxine 200 mc g tablet RxNorm: 801658 1 Tablet(s) PO daily 09/30/2015 10/01/2015 Inactive Wellbutrin XL 150 mg 24 hr tablet, extended release RxNorm: 709530 1 Tablet(s) PO daily 09/30/2015 10/01/2015 Inactive trazodone 50 mg tablet RxNorm: 541775 1 Tablet(s) PO QHS 09/11/2015 10/10/2015 Inactive trazodone 50 mg tablet RxNorm: 313839 1 Tablet(s) PO QHS 09/11/2015 09/10/2015 Inactive Cymbalta 30 mg capsu le,delayed release RxNorm: 657910 1 Capsule(s) PO daily 09/07/2015 11/16/2015 In active Cymbalta 60 mg capsu le,delayed release RxNorm: 716964 1 Capsule(s) PO daily 08/31/2015 08/30/2015 In active Cymbalta 30 mg capsu le,delayed release RxNorm: 578899 1 Capsule(s) PO daily take with 60mg to make 90 mg daily 08/31/2015 09/06/2015 Inactive Cymbalta 30 mg capsu le,delayed release RxNorm: 446293 1 Capsule(s) PO daily take with 60mg to make 90 mg daily 08/31/2015 08/30/2015 Inactive Cymbalta 60 mg capsu le,delayed release RxNorm: 964428 1 Capsule(s) PO daily x 7 days and then increase to 90mg daily 08/31/2015 09/07/2015 Inactive levothyroxine 200 mc g tablet RxNorm: 160216 1 Tablet(s) PO daily 08/14/2015 09/29/2015 Inactive Wellbutrin XL 150 mg 24 hr tablet, extended release RxNorm: 842155 1 Tablet(s) PO daily 07/14/2015 09/29/2015 Inactive Cialis 20 mg tablet RxNorm: 640777 1 Tablet(s) PO PRN 07/02/2015 02/15/2016 Inactive not more than 1 tab in 24 hours liothyronine 5 mcg t ablet RxNorm: 863582 1 Tablet(s) PO daily 2015 05/29/2016 Inactive clonazepam 1 mg tablet RxNorm: 912134 1 Tablet(s) PO TID 2015 02/15/2016 Inactive minocycline 50 mg ta blet RxNorm: 280948 1 Tablet(s) PO daily 2015 05/11/2016 Inactive Wellbutrin XL 150 mg 24 hr tablet, extended release RxNorm: 381690 1 Tablet(s) PO daily 04/23/2015 07/13/2015 Inactive levothyroxine 200 mc g tablet RxNorm: 169961 1 Tablet(s) PO daily 04/23/2015 08/13/2015 Inactive Aleve oral RxNorm: 424994 oral No Start Date Active Tylenol 500 mg RxNorm: oral No Start Date Active morphine ER 15 mg ta blet,extended release RxNorm: 903928 oral No Start Date 11/16/2016 Inactive Trazadone 25 mg RxNorm: 2 PO daily No Start Date 09/11/2015 Inactive diclofenac oral RxNorm: 3355 oral No Start Date 05/04/2018 Inactive clonazepam 1 mg tablet RxNorm: 024692 1 Tablet(s) PO QHS No Start Date 06/04/2015 Inactive Wellbutrin XL 150 mg 24 hr tablet, extended release RxNorm: 551298 1 Tablet(s) PO daily No Start Date 04/22/2015 Inactive minocycline 50 mg ta blet RxNorm: 828408 1 Tablet(s) PO daily No Start Date 06/04/2015 Inactive methadone 5 mg tablet RxNorm: 115723 1 Tablet(s) PO Q8 No Start Date 02/15/2016 Inactive Protonix 40 mg table t,delayed release RxNorm: 144568 Tablet(s) PO daily No Start Date 06/16/2016 Inactive Opana ER 15 mg table t, crush resistant, extended release RxNorm: 113798 1 Tablet(s) PO Q12H No Start Date 06/08/2017 Inactive MS Contin 30 mg tabl et,extended release RxNorm: 854831 1 Tablet(s) PO Q12H No Start Date 02/15/2016 Inactive Opana ER 15 mg table t, crush resistant, extended release RxNorm: 789455 1 Tablet(s) PO BID No Start Date 09/15/2016 Inactive liothyronine 5 mcg t ablet RxNorm: 116410 1 Tablet(s) PO daily No Start Date 06/04/2015 Inactive Cialis 20 mg tablet RxNorm: 724179 1 Tablet(s) PO PRN No Start Date 07/01/2015 Inactive not more than 1 tab in 24 hours baclofen 10 mg tablet RxNorm: 937324 1 Tablet(s) PO TID as needed No Start Date 05/11/2016 Inactive morphine 15 mg immed iate release tablet RxNorm: 535378 1 Tablet(s) PO Q6 PRN as needed No Start Date 02/15/2016 Inactive levothyroxine 200 mc g tablet RxNorm: 817355 1 Tablet(s) PO daily No Start Date 04/22/2015 Inactive Opana ER 5 mg tablet , crush resistant, extended release RxNorm: 023500 1 Tablet(s) PO Q6 No Start Date 06/08/2017 Inactive Medication Administered Medication Codes Instruc tions Start Date Status cyanocobalamin (vit B-12) 1,000 mcg/mL injection solut ion RxNorm: 048398 1Milliliter 12/27/2018 No longer Active Immunizations No [...] 06/09/2017 Opa na back pain 04/07/2017 Mor phine sores 11/17/2016 sores 11/10/2016 back pain 10/14/2016 [...] 29.4 pg 01/07/2019 Cbc With Differential Ord2 [place]% 10.9 % 01/07/2019 Cbc With Differential Ord2 [...] 1.77 K/ul 01/07/2019 Cbc With Differential Ord2 [place] ABS# 0.5 K/ul 01/07/2019 Cbc With Differential Ord2 Eos ABS# 0.1 K/ul 01/07/2019 Cbc With Differential Ord2 Baso ABS# 0.0 K/ul 01/07/2019 Free T4 Tzo185 FREE T4 2.05 ng/dL 01/07/2019 Lipid Ord30 CHOL 189 mg/dL 01/07/2019 Lipid Ord30 HDL 58.0 mg/dl 01/07/2019 Lipid Ord30 TRIG 155 mg/dL 01/07/2019 Lipid Ord30 LDL 100 mg/dL 01/07/2019 Lipid Ord30 C/HDL 3.3 Ratio 01/07/2019 Comp Metabolic Lrj192 NA 137 mEq/L 01/07/2019 Comp Metabolic Tov360 K 4.2 mEq/L 01/07/2019 Comp Metabolic Pli203 CL 104 mEq/L 01/07/2019 Comp Metabolic Vur360 CO2 26.0 mEq/L 01/07/2019 Comp Metabolic Crl298 AN ION GAP 11 01/07/2019 Comp Metabolic Mhy457 GL UCOSE 64 mg/dL 01/07/2019 Comp Metabolic Twx727 Cr eat 0.8 mg/dL 01/07/2019 Comp Metabolic Gqr019 eG FR 110 ml/min/1.73m2 12/28 Comp Metabolic Vrr596 BUN 7 mg/dL 01/07/2019 Comp Metabolic Dvy827 B/ C Ratio 9.0 Ratio 01/07/2019 Comp Metabolic Xqs593 CA LCIUM 9.7 mg/dL 01/07/2019 Comp Metabolic Nof019 AL K PHOS 64 U/L 01/07/2019 Comp Metabolic Grw068 T(SGOT) 32 U/L 01/07/2019 Comp Metabolic Rzm834 AL T(SGPT) 44 U/L 01/07/2019 Comp Metabolic Gqk579 BI LI T 0.3 mg/dL 01/07/2019 Comp Metabolic Nnf795 AL BUMIN 4.3 g/dL 01/07/2019 Comp Metabolic Yey620 TP RO 6.5 g/dL 01/07/2019 Comp Metabolic Scc927 GL OB 2.2 g/dL 01/07/2019 Comp Metabolic Htl406 A/ G Ratio 2.0 Ratio 01/07/2019 Comp Metabolic Gzw961 Os mo 270 mOsmo 01/07/2019 Free T4 Yun233 FREE T4 1.54 ng/dL 11/05/2018 Vitamin D 25 Oh Dfc1930 VITAMIN D, 25 HYDROXY 40.65 ng/mL 11/05/2018 Tsh Ord6 TSH (3rd IS) 0.02 uIU/mL 11/05/2018 Vitamin D 25 Oh Uxw4504 VITAMIN D, 25 HYDROXY 30.96 ng/mL 07/06/2018 Comp Metabolic Etw117 NA 141 mEq/L 07/06/2018 Comp Metabolic Gwe854 K 4.2 mEq/L 07/06/2018 Comp Metabolic Spk381 CL 103 mEq/L 07/06/2018 Comp Metabolic Sal442 CO2 29.0 mEq/L 07/06/2018 Comp Metabolic Oiy074 AN ION GAP 13 07/06/2018 Comp Metabolic Ema209 GL UCOSE 105 mg/dL 07/06/2018 Comp Metabolic Hpp671 Cr eat 0.8 mg/dL 07/06/2018 Comp Metabolic Yxn438 eG FR 101 ml/min/1.73m2 06/27 Comp Metabolic Wtd411 BUN 7 mg/dL 07/06/2018 Comp Metabolic Iqw009 B/ C Ratio 8.3 Ratio 07/06/2018 Comp Metabolic Clb230 CA LCIUM 9.9 mg/dL 07/06/2018 Comp Metabolic Sib539 AL K PHOS 65 U/L 07/06/2018 Comp Metabolic Dvd732 T(SGOT) 21 U/L 07/06/2018 Comp Metabolic Nmz839 AL T(SGPT) 31 U/L 07/06/2018 Comp Metabolic Mpr663 BI LI T 0.3 mg/dL 07/06/2018 Comp Metabolic Ymt557 AL BUMIN 4.3 g/dL 07/06/2018 Comp Metabolic Qtp170 TP RO 6.4 g/dL 07/06/2018 Comp Metabolic Jlw266 GL OB 2.1 g/dL 07/06/2018 Comp Metabolic Yoy167 A/ G Ratio 2.0 Ratio 07/06/2018 Comp Metabolic Gkl285 Os mo 280 mOsmo 07/06/2018 Cbc With [...] 29.3 pg 07/06/2018 Cbc With Differential Ord2 [place]% 10.5 % 07/06/2018 Cbc With Differential Ord2 [...] 1.89 K/ul 07/06/2018 Cbc With Differential Ord2 [place] ABS# 0.5 K/ul 07/06/2018 Cbc With Differential Ord2 Eos ABS# 0.3 K/ul 07/06/2018 Cbc With Differential Ord2 Baso ABS# 0.0 K/ul 07/06/2018 Total Psa Ord10 PSA 0.34 ng/mL 07/06/2018 Tsh Ord6 TSH (3rd IS) 0.02 uIU/mL 07/06/2018 Testosterone Fmf002 Testo 400.6 ng/dL 07/06/2018 Free T4 Vpw530 FREE T4 1.48 ng/dL 07/06/2018 Arnot Spotted Fever Igg/Igm 90958 3 PARTHA MT SPOTTED FEVER IGM EIA . 04/04/2018 Arnot Spotted Fever Igg/Igm 52078 3 RMSF, IGM 0.24 index 04/04/2018 Arnot Spotted Fever Igg/Igm 72971 3 PARTHA MT SPOTTED FEVER IGG EIA FLEX . 04/04/2018 Arnot Spotted Fever Igg/Igm 11923 3 RMSF, IGG SCREEN-FLEX Equivocal 04/04/2018 Partha Mtn Spot'D Fev Igg [id number] RMSF, IGG- TITER IFA <1:64 04/04/2018 Ehrlichia Chaffeensis Antibody Igg [id number] EHRLICHIA CHAFFEENSIS IGG <1:64 04/02/2018 Ehrlichia Chaffeensis Antibody Igm [id number] EHRLICHIA CHAFFEENSIS IGM < 1:16 04/02/2018 Lymes Disease Total Antibodies With Western Blot Refle x [id number] B. BURGDORFERI, IGG/IGM 0.23 03/30/2018 Lymes Disease Total Antibodies With Western Blot Refle x [id number] 03/30/2018 Cbc With Differential Ord2 WBC 5.04 [...] 28.7 pg 03/28/2018 Cbc With Differential Ord2 [place]% 16.1 % 03/28/2018 Cbc With Differential Ord2 [...] 1.37 K/ul 03/28/2018 Cbc With Differential Ord2 [place] ABS# 0.8 K/ul 03/28/2018 Cbc With Differential Ord2 Eos ABS# 0.1 K/ul 03/28/2018 Cbc With Differential Ord2 Baso ABS# 0.0 K/ul 03/28/2018 Comp Metabolic Uhu945 NA 136 mEq/L 02/16/2018 Comp Metabolic Fgy497 K 3.9 mEq/L 02/16/2018 Comp Metabolic Nui407 CL 103 mEq/L 02/16/2018 Comp Metabolic Rvv163 CO2 23.0 mEq/L 02/16/2018 Comp Metabolic Ipi488 AN ION GAP 14 02/16/2018 Comp Metabolic Khg646 GL UCOSE 133 mg/dL 02/16/2018 Comp Metabolic Tvi711 Cr eat 0.8 mg/dL 02/16/2018 Comp Metabolic Bcs070 eG FR 103 ml/min/1.73m2 01/26 Comp Metabolic Yyq934 BUN 7 mg/dL 02/16/2018 Comp Metabolic Wuj760 B/ C Ratio 8.4 Ratio 02/16/2018 Comp Metabolic Wpg608 CA LCIUM 9.3 mg/dL 02/16/2018 Comp Metabolic Jss607 AL K PHOS 71 U/L 02/16/2018 Comp Metabolic Cyc330 T(SGOT) 42 U/L 02/16/2018 Comp Metabolic Dbl499 AL T(SGPT) 69 U/L 02/16/2018 Comp Metabolic Cpg317 BI LI T 0.3 mg/dL 02/16/2018 Comp Metabolic Gvx073 AL BUMIN 4.1 g/dL 02/16/2018 Comp Metabolic Jtz587 TP RO 6.3 g/dL 02/16/2018 Comp Metabolic Bhp142 GL OB 2.2 g/dL 02/16/2018 Comp Metabolic Hzp244 A/ G Ratio 1.8 Ratio 02/16/2018 Comp Metabolic Ogq151 Os mo 272 mOsmo 02/16/2018 Free T4 Moi258 FREE T4 1.85 ng/dL 02/16/2018 Ferritin Ord22 FERRITIN 161.7 ng/mL 02/16/2018 Tsh Ord6 TSH (3rd IS) 0.01 uIU/mL 02/16/2018 Test(s) Not Perfromed [id number] Test(s) Not Performed Test(s) Not Performed. 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 Fernando Goyal 02/16/2018 Tibc Ord40 Iron 138 [...] 26.4 pg 01/05/2018 Cbc With Differential Ord2 [place]% 11.9 % 01/05/2018 Cbc With Differential Ord2 [...] 2.08 K/ul 01/05/2018 Cbc With Differential Ord2 [place] ABS# 0.6 K/ul 01/05/2018 Cbc With Differential Ord2 Eos ABS# 0.2 K/ul 01/05/2018 Cbc With Differential Ord2 Baso ABS# 0.0 K/ul 01/05/2018 Ferritin Ord22 FERRITIN 5.7 ng/mL 12/06/2017 Tibc Ord40 Iron 33 ug/dl 12/06/2017 Tibc Ord40 UIBC 431 ug/dL 12/06/2017 Tibc Ord40 TIBC 464 ug/dL 12/06/2017 Tibc Ord40 Fe-%Sat 7.1 % 12/06/2017 Free T4 Aag071 FREE T4 1.82 ng/dL 12/01/2017 Tsh Ord6 [...] 27.0 pg 12/01/2017 Cbc With Differential Ord2 [place]% 10.6 % 12/01/2017 Cbc With Differential Ord2 [...] 1.92 K/ul 12/01/2017 Cbc With Differential Ord2 [place] ABS# 0.4 K/ul 12/01/2017 Cbc With Differential Ord2 Eos ABS# 0.2 K/ul 12/01/2017 Cbc With Differential Ord2 Baso ABS# 0.0 K/ul 12/01/2017 Comp Metabolic Hko988 NA 136 mEq/L 12/01/2017 Comp Metabolic Dek981 K 4.6 mEq/L 12/01/2017 Comp Metabolic Uzc489 CL 102 mEq/L 12/01/2017 Comp Metabolic Bvz588 CO2 27.0 mEq/L 12/01/2017 Comp Metabolic Bfr777 AN ION GAP 12 12/01/2017 Comp Metabolic Bgk809 GL UCOSE 90 mg/dL 12/01/2017 Comp Metabolic Ruf251 Cr eat 0.7 mg/dL 12/01/2017 Comp Metabolic Lrr536 eG FR 123 ml/min/1.73m2 03/2018 Comp Metabolic Hrb490 BUN 4 mg/dL 12/01/2017 Comp Metabolic Jwx504 B/ C Ratio 5.6 Ratio 12/01/2017 Comp Metabolic Quu385 CA LCIUM 9.0 mg/dL 12/01/2017 Comp Metabolic Jnq387 AL K PHOS 67 U/L 12/01/2017 Comp Metabolic Nrh205 T(SGOT) 30 U/L 12/01/2017 Comp Metabolic Fxz554 AL T(SGPT) 29 U/L 12/01/2017 Comp Metabolic Vcy070 BI LI T 0.3 mg/dL 12/01/2017 Comp Metabolic Nfs827 AL BUMIN 4.1 g/dL 12/01/2017 Comp Metabolic Rdo445 TP RO 6.1 g/dL 12/01/2017 Comp Metabolic Zgn331 GL OB 2.0 g/dL 12/01/2017 Comp Metabolic Gqg326 A/ G Ratio 2.0 Ratio 12/01/2017 Comp Metabolic Dfp124 Os mo 268 mOsmo 12/01/2017 Comp Metabolic Scd601 NA 136 mEq/L 02/16/2016 Comp Metabolic Dqs987 K 4.2 mEq/L 02/16/2016 Comp Metabolic Fyr917 CL 104 mEq/L 02/16/2016 Comp Metabolic Lnx428 CO2 20.0 mEq/L 02/16/2016 Comp Metabolic Qal302 AN ION GAP 16 02/16/2016 Comp Metabolic Onm266 GL UCOSE 71 mg/dL 02/16/2016 Comp Metabolic Ewm280 Cr eat 0.8 mg/dL 02/16/2016 Comp Metabolic Qet514 eG FR 113 ml/min/1.73m2 01/26 Comp Metabolic Mvm699 BUN 7 mg/dL 02/16/2016 Comp Metabolic Mxf945 B/ C Ratio 9.1 Ratio 02/16/2016 Comp Metabolic Bkk818 CA LCIUM 9.4 mg/dL 02/16/2016 Comp Metabolic Wms022 AL K PHOS 57 U/L 02/16/2016 Comp Metabolic Pcv442 T(SGOT) 30 U/L 02/16/2016 Comp Metabolic Sfo819 AL T(SGPT) 27 U/L 02/16/2016 Comp Metabolic Xxm544 BI LI T 0.2 mg/dL 02/16/2016 Comp Metabolic Tao290 AL BUMIN 4.4 g/dL 02/16/2016 Comp Metabolic Lcd269 TP RO 6.5 g/dL 02/16/2016 Comp Metabolic Lpi911 GL OB 2.1 g/dL 02/16/2016 Comp Metabolic Dlm148 A/ G Ratio 2.1 Ratio 02/16/2016 Comp Metabolic Wcq713 Os mo 268 mOsmo 02/16/2016 Free T4 Kxk926 FREE T4 1.20 ng/dL 02/16/2016 Cbc With [...] 30.2 pg 02/16/2016 Cbc With Differential Ord2 [place]% 9.6 % 02/16/2016 Cbc With Differential Ord2 [...] 1.50 K/ul 02/16/2016 Cbc With Differential Ord2 [place] ABS# 0.5 K/ul 02/16/2016 Cbc With Differential [...] Respiratory dyspnea on exertion 09/03/2018 Respiratory snoring 10/0 06/2018 Gastrointestinal No constipation 09/03/2018 Gastrointestinal No [...] Respiratory dyspnea on exertion 07/05/2018 Respiratory snoring 08/07/2018 Gastrointestinal No constipation 07/05/2018 Gastrointestinal No diarrhea [...] 02/27/2018 Respiratory daytime hypersomnolence 02/27/2018 Respiratory snoring 04/0 01/2018 Constitutional No recent illness 12/01/2017 Constitutional No [...] 08/28/2015 Constitutional No fever 08/28/2015 Psychiatric anxiety 1012/2014 Psychiatric depression 1 Hematologic/Lymphatic No abnormal bl [...] Neurologic No headache 0 05/28/2015 Psychiatric anxiety 0712/2014 Psychiatric depression 0 05/28/2015 Hematologic/Lymphatic No abnormal [...] accomodation 01/07/2019 None Full Exam - General 1995 Ears/Nose/Throat lips/teeth/gingiva Overall: benign lips 01/07/2019 None Full Exam - General 1995 Ears/Nose/Throat oral cavity/pharynx/larynx Overall: oral mucosa clear [...] tenderness 09/17/2018 None Full Exam - General 1994 [...] Procedure Codes Date THER/PROPH/DIAG INJ SC/IM CPT-4: 53292 12/27/2018 VITAMIN B12 INJECTION CPT-4: J3420 12/27/2018 PPPS, SUBSEQ VISIT CPT- 4: G0439 09/17/2018 Vital Signs Date Vital 07/18/2019 Blood Pressure 1: 86/52 Code: 8480-6 BMI: 35.5 Code: 16509-7 Heart Rate 1: 65 bpm Height: 5'6" SpO2: 97% Weight: 220 lbs 05/14/2019 Blood Pressure 1: 120/70 Code: 8480-6 BMI: 36.2 Code: 72503-5 Heart Rate 1: 65 bpm Height: 5'6" SpO2: 98% Weight: 224 lbs 03/12/2019 Blood Pressure 1: 130/76 Code: 8480-6 BMI: 38.6 Code: 09735-0 Heart Rate 1: 83 bpm Height: 5'6" SpO2: 99% Weight: 239 lbs 01/07/2019 Blood Pressure 1: 124/80 Code: 8480-6 BMI: 38.3 Code: 12857-6 Heart Rate 1: 88 bpm Height: 5'6" SpO2: 97% Weight: 237 lbs 12/27/2018 Blood Pressure 1: 122/80 Code: 8480-6 BMI: 38.6 Code: 05002-4 Heart Rate 1: 72 bpm Height: 5'6" SpO2: 98% Weight: 239 lbs 11/05/2018 Blood Pressure 1: 122/64 Code: 8480-6 BMI: 37.4 Code: 50642-0 Heart Rate 1: 66 bpm Height: 5'6" SpO2: 97% Weight: 232 lbs 09/27/2018 Blood Pressure 1: 92/66 Code: 8480-6 BMI: 37.9 Code: 15619-2 Heart Rate 1: 66 bpm Height: 5'6" SpO2: 98% Weight: 235 lbs 09/17/2018 Blood Pressure 1: 110/72 Code: 8480-6 BMI: 38.3 Code: 11865-4 Heart Rate 1: 77 bpm Height: 5'6" SpO2: 95% Waist Measure (cm): 102 cm Weight: 237 lbs 09/03/2018 Blood Pressure 1: 122/68 Code: 8480-6 BMI: 37.6 Code: 78380-3 Heart Rate 1: 78 bpm Height: 5'6" SpO2: 97% Weight: 233 lbs 07/05/2018 Blood Pressure 1: 94/62 Code: 8480-6 BMI: 36.8 Code: 55634-8 Heart Rate 1: 88 bpm Height: 5'6" SpO2: 99% Weight: 228 lbs 05/04/2018 Blood Pressure 1: 110/80 Code: 8480-6 BMI: 35.5 Code: 99974-9 Heart Rate 1: 80 bpm Height: 5'6" SpO2: 99% Weight: 220 lbs 03/28/2018 Blood Pressure 1: 110/72 Code: 8480-6 BMI: 35.0 Code: 95693-9 Heart Rate 1: 80 bpm Height: 5'6" SpO2: 98% Temperature: 36.2 (C ) / 97.1 (F) Weight: 217 lbs 02/27/2018 Blood Pressure 1: 136/76 Code: 8480-6 BMI: 36.0 Code: 87614-1 Heart Rate 1: 80 bpm Height: 5'6" SpO2: 98% Weight: 223 lbs 12/01/2017 Blood Pressure 1: 132/72 Code: 8480-6 BMI: 33.4 Code: 01506-3 Heart Rate 1: 82 bpm Height: 5'6" SpO2: 97% Weight: 207 lbs 09/29/2017 Blood Pressure 1: 124/68 Code: 8480-6 BMI: 32.1 Code: 48954-4 Heart Rate 1: 77 bpm Height: 5'6" SpO2: 98% Weight: 199 lbs 08/11/2017 Blood Pressure 1: 154/82 Code: 8480-6 BMI: 31.6 Code: 02599-9 Heart Rate 1: 75 bpm Height: 5'6" SpO2: 98% Weight: 196 lbs 06/09/2017 Blood Pressure 1: 148/88 Code: 8480-6 BMI: 28.6 Code: 42018-7 Heart Rate 1: 88 bpm Height: 5'6" SpO2: 98% Weight: 177 lbs 04/07/2017 Blood Pressure 1: 140/84 Code: 8480-6 BMI: 30.3 Code: 52599-5 Heart Rate 1: 81 bpm Height: 5'6" SpO2: 99% Weight: 188 lbs 11/17/2016 Blood Pressure 1: 130/72 Code: 8480-6 Heart Rate 1: 63 bpm Height: SpO2: 93% Weight: 11/10/2016 Blood Pressure 1: 128/86 Code: 8480-6 BMI: 30.3 Code: 20409-9 Heart Rate 1: 84 bpm Height: 5'6" SpO2: 96% Weight: 188 lbs 10/14/2016 Heigh t: 5'6" 09/16/2016 Blood Pressure 1: 130/80 Code: 8480-6 BMI: 30.3 Code: 87662-7 Heart Rate 1: 67 bpm Height: 5'6" SpO2: 99% Weight: 188 lbs 08/19/2016 Blood Pressure 1: 110/62 Code: 8480-6 BMI: 29.9 Code: 59941-2 Heart Rate 1: 70 bpm Height: 5'6" SpO2: 97% Weight: 185 lbs 06/17/2016 Blood Pressure 1: 112/68 Code: 8480-6 BMI: 27.6 Code: 36454-7 Heart Rate 1: 61 bpm Height: 5'6" SpO2: 98% Weight: 171 lbs 05/12/2016 Blood Pressure 1: 130/76 Code: 8480-6 BMI: 29.7 Code: 65178-4 Heart Rate 1: 103 bpm Height: 5'6" SpO2: 98% Weight: 184 lbs 02/16/2016 Blood Pressure 1: 140/82 Code: 8480-6 BMI: 28.7 Code: 41820-8 Heart Rate 1: 66 bpm Height: 5'6" SpO2: 99% Weight: 178 lbs 11/17/2015 Blood Pressure 1: 120/74 Code: 8480-6 BMI: 29.4 Code: 36795-0 Heart Rate 1: 90 bpm Height: 5'6" SpO2: 94% Weight: 182 lbs 08/28/2015 Blood Pressure 1: 128/76 Code: 8480-6 BMI: 27.9 Code: 44868-9 Heart Rate 1: 80 bpm Height: 5'6" SpO2: 98% Weight: 173 lbs 05/28/2015 Blood Pressure 1: 122/70 Code: 8480-6 BMI: 27.0 Code: 27145-3 Heart Rate 1: 74 bpm Height: 5'6" SpO2: 98% Weight: 167 lbs 04/23/2015 Blood Pressure 1: 110/60 Code: 8480-6 BMI: 27.0 Code: 80870-9 Heart Rate 1: 68 bpm Height: 5'6" [...] and Resolution ongoing 09/03/2018 None hypothyroid Quality historical society director fe 09/03/2018 None hypothyroid Onset and Resolution [...] fatigue Quality constant 07/05/2018 None hypothyroid Quality historical society director fe 07/05/2018 None hypothyroid Onset and Resolution [...] Findings weight loss 03/28/2018 None hypothyroid Quality historical society director fe 02/27/2018 None hypothyroid Onset and Resolution [...] Encounters Encounter Performer Loca tion Codes Date ([id number]) [id number] EST. P ATIENT, LEVEL IV Diagnosis: Chronic pain syndrome[ICD10: G89.4] Diagnosis: Major depressive disorder, recurrent, moderate[ICD10: F33.1] Diagnosis: Hypothyroidism, unspecified[ICD10: E03.9] Leydi Jacobo MD, [facility] CPT-4: 18139 07/18/2019 [id number]) [id number] EST. P ATIENT, LEVEL III Diagnosis: Chronic pain syndrome[ICD10: G89.4] Diagnosis: Hypothyroidism, unspecified[ICD10: E03.9] Leydi Jacobo MD, [facility] CPT-4: 40637 05/14/2019 [id number]) [id number] EST. P ATIENT, LEVEL III Diagnosis: Hypothyroidism, unspecified[ICD10: E03.9] Diagnosis: Chronic pain syndrome[ICD10: G89.4] Leydi Jacobo MD, [facility] CPT-4: 72649 03/12/[id number]) 23063 EST. P ATIENT, LEVEL IV Diagnosis: Chronic pain syndrome[ICD10: G89.4] Diagnosis: Hypothyroidism, unspecified[ICD10: E03.9] Diagnosis: Encounter for screening for lipoid disorders[ICD10: Z13.220] Diagnosis: Major depressive disorder, recurrent, moderate[ICD10: F33.1] Leydi Jacobo MD, [facility] CPT-4: 30891 01/07/2019 ([id number]) 55960 EST. P ATIENT, LEVEL III Diagnosis: Obstructive sleep apnea (adult) (pediatric)[ICD10: G47.33] Diagnosis: Hypothyroidism, unspecified[ICD10: E03.9] Diagnosis: Vitamin B12 deficiency anemia, unspecified[ICD10: D51.9] Leydi Jacobo MD, [facility] CPT-4: 35043 12/27/2018 ([id number]) 75086 EST. P ATIENT, LEVEL IV Diagnosis: Hypothyroidism, unspecified[ICD10: E03.9] Diagnosis: Major depressive disorder, recurrent, moderate[ICD10: F33.1] Diagnosis: Chronic pain syndrome[ICD10: G89.4] Leydi Jacobo MD, [facility] CPT-4: 74511 11/05/2018 ([id number]) 43323 EST. P ATIENT, LEVEL IV Diagnosis: Chronic pain syndrome[ICD10: G89.4] Diagnosis: Hypothyroidism, unspecified[ICD10: E03.9] Diagnosis: Other fatigue[ICD10: R53.83] Diagnosis: Other obesity due to excess calories[ICD10: E66.09] Diagnosis: Major depressive disorder, recurrent, moderate[ICD10: F33.1] Leydi Jacobo MD, [facility] CPT-4: 22524 09/27/2018 ([id number]) 94042 EST. P ATIENT, LEVEL III Diagnosis: Chronic pain syndrome[ICD10: G89.4] Leydi Jacobo MD, [facility] CPT-4: 11414 09/03/2018 ([id number]) 17157 EST. P ATIENT, LEVEL IV Diagnosis: Hypothyroidism, unspecified[ICD10: E03.9] Diagnosis: Major depressive disorder, recurrent, moderate[ICD10: F33.1] Diagnosis: Chronic pain syndrome[ICD10: G89.4] Diagnosis: Other male erectile dysfunction[ICD10: N52.8] Diagnosis: Other fatigue[ICD10: R53.83] Diagnosis: Encounter for screening for malignant neoplasm of prostate[ICD10: Z12.5] Leydi Jacobo MD, [facility] CPT-4: 35007 07/05/2018 ([id number]) 89485 EST. P ATIENT, LEVEL IV Diagnosis: Chronic pain syndrome[ICD10: G89.4] Diagnosis: Hypothyroidism, unspecified[ICD10: E03.9] Diagnosis: Major depressive disorder, recurrent, moderate[ICD10: F33.1] Leydi Jacobo MD, [facility] CPT-4: 06425 05/04/2018 94723 EST. PATIENT, LEVEL IV Diagnosis: Melena[ICD10: K92.1] Diagnosis: Other malaise[ICD10: R53.81] Diagnosis: Other fatigue[ICD10: R53.83] Diagnosis: Pain in unspecified joint[ICD10: M25.50] Diagnosis: Diarrhea, unspecified[ICD10: R19.7] Denae Jacobo MD, [facility] CPT-4: 85336 03/28/2018 ([id number]) 41116 EST. P ATIENT, LEVEL IV Diagnosis: Chronic pain syndrome[ICD10: G89.4] Diagnosis: Hypothyroidism, unspecified[ICD10: E03.9] Diagnosis: Other obesity due to excess calories[ICD10: E66.09] Diagnosis: Major depressive disorder, recurrent, moderate[ICD10: F33.1] Diagnosis: Obstructive sleep apnea (adult) (pediatric)[ICD10: G47.33] Leydi Jacobo MD, [facility] CPT-4: 98553 02/27/2018 69738 EST. PATIENT, LEVEL IV Diagnosis: Other specified hypothyroidism[ICD10: E03.8] Diagnosis: Chronic pain syndrome[ICD10: G89.4] Diagnosis: Major depressive disorder, recurrent, moderate[ICD10: F33.1] [facility] CPT-4: 65190 12/01/2017 ([id number]) 21908 EST. P ATIENT, LEVEL IV Diagnosis: Chronic pain syndrome[ICD10: G89.4] Diagnosis: Alcohol dependence, uncomplicated[ICD10: F10.20] Diagnosis: Major depressive disorder, recurrent, moderate[ICD10: F33.1] Leydi Jacobo MD, [facility] CPT-4: 29037 09/29/2017 ([id number]) 57646 EST. P ATIENT, LEVEL IV Diagnosis: Chronic pain syndrome[ICD10: G89.4] Diagnosis: Alcohol dependence, uncomplicated[ICD10: F10.20] Diagnosis: Major depressive disorder, recurrent, moderate[ICD10: F33.1] Leydi Jacobo MD, [facility] CPT-4: 14765 08/11/2017 ([id number]) 09764 EST. P ATIENT, LEVEL III Diagnosis: Chronic pain syndrome[ICD10: G89.4] Diagnosis: Major depressive disorder, recurrent, moderate[ICD10: F33.1] Leydi Jacobo MD, [facility] CPT-4: 75350 06/09/2017 ([id number]) 12393 EST. P ATIENT, LEVEL III Diagnosis: Chronic pain syndrome[ICD10: G89.4] Diagnosis: Pain in left knee[ICD10: M25.562] Leydi Jacobo MD, [facility] CPT- 4: 56547 04/07/2017 84405 EST. PATIENT, LEVEL II Diagnosis: Superficial foreign body of left upper arm, initial encounter[ICD10: S40.852A] Diagnosis: Cellulitis of left upper limb[ICD10: L03.114] Leydi Jacobo MD, [facility] CPT-4: 49324 11/17/2016 37012 EST. PATIENT, LEVEL II Diagnosis: Cellulitis of left upper limb[ICD10: L03.114] Leydi Jacobo MD, [facility] CPT-4: 37618 11/10/2016 ([id number]) 09856 EST. P ATIENT, LEVEL III Diagnosis: Chronic pain syndrome[ICD10: G89.4] Diagnosis: Major depressive disorder, recurrent, moderate[ICD10: F33.1] Leydi Jacobo MD, [facility] CPT-4: 60365 10/14/2016 09333 EST. PATIENT, LEVEL IV Diagnosis: Psychophysiologic insomnia[ICD10: F51.04] Diagnosis: Major depressive disorder, recurrent, moderate[ICD10: F33.1] Diagnosis: Alcohol dependence, uncomplicated[ICD10: F10.20] Diagnosis: Chronic pain syndrome[ICD10: G89.4] Leydi Jacobo MD, [facility] CPT-4: 09049 09/16/2016 ([id number]) 93484 EST. P ATIENT, LEVEL III Diagnosis: Pain in left shoulder[ICD10: M25.512] Diagnosis: Major depressive disorder, recurrent, moderate[ICD10: F33.1] Diagnosis: Psychophysiologic insomnia[ICD10: F51.04] Leydi Jacobo MD, [facility] CPT-4: 37409 08/19/2016 ([id number]) 92583 EST. P ATIENT, LEVEL III Diagnosis: Gastro-esophageal reflux disease without esophagitis[ICD10: K21.9] Diagnosis: Hypothyroidism, unspecified[ICD10: E03.9] Leydi Jacobo MD, [facility] CPT-4: 63791 06/17/2016 ([id number]) 84290 EST. P ATIENT, LEVEL IV Diagnosis: Gastro-esophageal reflux disease without esophagitis[ICD10: K21.9] Diagnosis: Hypothyroidism, unspecified[ICD10: E03.9] Diagnosis: Major depressive disorder, recurrent, moderate[ICD10: F33.1] Leydi Jacobo MD, [facility] CPT-4: 09892 05/12/2016 ([id number]) 14268 EST. P ATIENT, LEVEL III Diagnosis: Cervicalgia[ICD10: M54.2] Diagnosis: Hypothyroidism, unspecified[ICD10: E03.9] Diagnosis: Other male erectile dysfunction[ICD10: N52.8] Leydi Jacobo MD, [facility] CPT-4: 76540 02/16/2016 ([id number]) 97690 EST. P ATIENT, LEVEL III Diagnosis: Lumbago with sciatica, unspecified side[ICD10: M54.40] Diagnosis: Other male erectile dysfunction[ICD10: N52.8] Leydi Jacobo MD, [facility] CPT-4: 85013 11/17/2015 ([id number]) 11721 EST. P ATIENT, LEVEL III Diagnosis: Lumbago with sciatica, unspecified side[ICD10: M54.40] Diagnosis: Hypothyroidism, unspecified[ICD10: E03.9] Diagnosis: Other male erectile dysfunction[ICD10: N52.8] [facility] CPT-4: 51326 08/28/2015 ([id number]) 52667 EST. P ATIENT, LEVEL III Diagnosis: Back pain, chronic[ICD9: 724.5] Diagnosis: Depression[ICD9: 311] Diagnosis: Hypothyroid[ICD9: 244.9] Diagnosis: Bilateral calf pain[ICD9: 729.5] [facility] CPT-4: 74339 05/28/2015 ([id number]) OFFICE VISI T, NEW - LEVEL 4 Diagnosis: Back pain, chronic[ICD9: 724.5] Diagnosis: Depression[ICD9: 311] Diagnosis: Hypothyroid[ICD9: 244.9] [facility] CPT-4: 03708 04/23/2015 Plan of Care Planned Activity Notes C odes Status Date Visit Plan: Chronic Pain Syndrome - pt has chronic pain - has been maintained on current medications, has not sought out other medications, only uses PRN pain medications as directed, and understands the consequences of over-medication. Hypothyroidism -managed by cat tender Depression -not well controlled -taking 1/2 tab of remeron -increase to a full tab -follow up in 2 months, discussed switching medication if no improvement. Instructed patient and his to call if symptoms do not improve or if any worse. 07/18/2019 Appointment: Leydi Hightower WPtel: [address] [place], [place] [phone] (30 min) Complex 07/18/2019 Patient Education: Patient Medication Summary Completed [...] termination from this medical practice. Hypothyroidism- seeing cat tender 05/14/2019 Appointment: Leydi Hightower WPtel: [address] [place], [place] [phone] (30 min) Complex 05/14/2019 Patient Education: Patient Medication Summary Completed 05/14/2019 Visit Plan: Hypothyroidism -refer kaitlynn Yan at [facility] Chronic Pain Syndrome - pt has chronic pain - has been maintained on current medications, has not sought out other medications, only uses PRN pain medications as directed, and understands the consequences of over-medication. 03/12/2019 Appointment: Leydi Hightower WPtel: [phone] [place] (30 min) Complex 03/12/2019 Patient Education: Patient Medication Summary Completed 03/12/2019 Appointment: Leydi Hightower WPtel: [phone] [place] (30 min) Complex 03/05/2019 Visit [...] thyroid ultrasound 01/07/2019 Appointment: Leydi Hightower WPtel: [phone] [phone] (30 min) Complex 01/07/2019 Patient Education: Patient [...] the office 12/27/2018 Appointment: Leydi Hightower WPtel: [phone] [phone] [place] (15 min) Moderate 12/27/2018 Patient Education: Patient [...] medications. 11/05/2018 Appointment: Leydi Hightower WPtel: [phone] [phone] (30 min) Complex 11/05/2018 Patient Education: [...] previous levels of control. 09/27/2018 Appointment: Leydi Hightower WPtel: [phone] [phone] (15 min) Moderate 09/27/2018 Patient Education: Patient Medication Summary Completed 09/27/2018 Patient Education: Depression Completed 09/27/2018 Visit Plan: Medicare Exam - today w deric discussed the patients past history, immunizations, preventative [...] surrogate. 09/17/2018 Appointment: Leydi Hightower WPtel: [phone] - Annual Wellness Visit 09/17/2018 Patient Education: Patient Medication Summary Completed 09/17/2018 Visit Plan: Chronic Pain Syndrome - pt has chronic pain - has been maintained on current medications, has not sought out other medications, only uses PRN pain medications as directed, and understands the consequences of over-medication. 09/03/2018 Appointment: Leydi Hightower WPtel: [phone] (30 min) Complex 09/03/2018 Patient Education: Patient Medication Summary Completed [...] exposure. No change in current medications. Fatigue-weight tteo-AW-hbmlo labs including testosterone level 07/05/2018 Visit Plan: [...] exposure. No change in current medications. Fatigue-weight umdh-YC-izgka labs including testosterone level 07/05/2018 Appointment: Leydi Hightower WPtel: [address] [place], [place] [phone] [place] (15 min) Moderate 07/05/2018 Patient Education: [...] to BID 05/04/2018 Appointment: [phone] [phone] [place] (15 min) Moderate 05/04/2018 Patient Education: Patient [...] pain. 03/28/2018 Appointment: Denae Martínez [facility]Ptel: [phone] [place] [place] (30 min) Complex 03/28/2018 Appointment: Nurse Visit [...] this time. 02/27/2018 Appointment: Leydi Hightower WPtel: [facility] [phone] (15 min) Moderate 02/27/2018 Patient Education: Patient [...] of control. 12/01/2017 Appointment: Denae Martínez [facility]Ptel: [phone] [place] (30 min) Complex 12/01/2017 Patient Education: Patient [...] outpatient treatment 09/29/2017 Appointment: Leydi Hightower WPtel: [phone] [phone] [place] (30 min) Complex 09/29/2017 Patient Education: Patient [...] cons ider 08/11/2017 Appointment: Leydi Hightower WPtel: [phone] [phone] (30 min) Complex 08/11/2017 Patient Education: Patient [...] current medications. 06/09/2017 Appointment: Leydi Hightower WPtel: [facility] [phone] (30 min) Complex 06/09/2017 Patient Education: Patient [...] completely resolve 11/17/2016 Appointment: Leydi Hightower WPtel: [address] [place] [address] (30 min) Complex 11/17/2016 Patient Education: Patient [...] in pain. 11/10/2016 Appointment: Leydi Hightower WPtel: [facility]8 [phone] (30 min) Complex 11/10/2016 Patient Education: Patient [...] of plan. 10/14/2016 Appointment: Leydi Hightower WPtel: [address] [place], [place] [phone] (30 min) Complex 10/14/2016 Patient Education: Patient [...] will try 09/16/2016 Appointment: Leydi Hightower WPtel: [phone] [phone] (30 min) Complex 09/16/2016 Patient Education: Patient Medication Summary Completed 09/16/2016 Visit Plan: Left shoulder and elbow pain-xray shoulder and elbow Ckvvuxwych-ewjmkkrp-ejmgnqmjesyj-d/c trazodone-start remeron at bedtime Pt has been [...] this patient. 08/19/2016 Appointment: Leydi Hightower WPtel: [phone] [phone] (30 min) Complex 08/19/2016 Patient Education: [...] Obesity Completed 06/17/2016 Appointment: Leydi Hightower WPtel: [phone] [phone] (30 min) Complex 06/09/2016 Visit Plan: [...] of control. 05/12/2016 Appointment: Leydi Hightower WPtel: [address] [place] [phone] (30 min) Complex 05/12/2016 Patient Education: Patient [...] in office. 05/28/2015 Appointment: Leydi Hightower WPtel: [address] [place] [phone] (30 min) Complex 05/28/2015 Patient Education: Patient [...] [facility] - Saving AutoInj - Levothyroxine - 18-64 - Dynamic Portal ID Completed 04/23/2015 Care Plan: COMPLETE CBC AUTOMATED LOINC : 91426-4 Ordered 04/23/2015 Instructions Comment Refill baclofen and wellbutrin. Consider increasing wellbutrin [...] any worse. Patient verbalized understanding of plan. . Hypothyroidism - p t with chronic [...] Pain medications are managed by Dr. Perez. . Hypothyroidism -re sierra to Noemi Yan at [facility] Chronic Pain Syndrome - pt has chronic pain - has been maintained on current medications, has not sought out other medications, only uses PRN pain medications as directed, and understands the consequences of over-medication. RECOMMEND SLEEP STUD Y BELVIQ DECREASE LEVOTHYROXINE [...] etc. Patient refuses at this time. . Thorn left forearm lesion removed today-instructed patient on wound care-continue anti biotic twice daily for 1 more week-call if symptoms do not completely resolve . Abscess/Cellulitis - The patient was instructed [...] size of the lesion, increase in pain. STOP TRAZODONE START REMERON AT BEDTIME . Left shoulder and elbow pain-xray shou lder and elbow Pqcqrpuvvp-pnygpohp-allpiljapyue-d/c trazodone-start remeron at bedtime Pt has been [...] been appropriately prescribed for this patient. . Chronic pain-manag ed by Dr Perez-not happy with current treatments and medications-instructed him I will speak with Dr Jacobo for her recommendations Hypothyroidism-no change in medications ED-samples of cialis for prn use . [...] dependence-alcohol free x 11 days-attending outpatient treatment Check labs today. W e will call [...] negative. Check D-Dimer today in office. . Neck Pain- pt to s tart [...] of control. ED-refill cialis for prn use Get Immodium over e counter for loose stools Will check [...] of stomach upset or stomach pain. . Chronic Pain Syndr ome - pt [...] exposure. No change in current medications. Fatigue-weight zrpe-LO-zhauy labs including testosterone level . Chronic Pain [...] exposure. No change in current medications. Fatigue-weight dxpg-HQ-ntoij labs including testosterone level . Chronic Back pain - the patient [...] termination from this medical practice. Hypothyroidism- seeing cat tender . Chronic Pain Syndr ome - pt [...] months based on previous levels of control. Repeat labs in 2 mons . Chronic pain with recent increase in [...] months based on previous levels of control. B12 injection monthl y x 2 months [...] -chronic -B12 injection today in the office DECREASE LEVOTHYROXI NE TO 175MCG DAILY -REPEAT [...] situational exposure. No change in current medications. Increase wellbutrin XL to 300mg daily . [...] the consequences of over-medication. 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 Chronic Pain Syndrome [...]
--- OUTSIDE RECORDS SUMMARY | 2020-03-17 14:24 | XMS REPORT | CCD ---
Author Author Thai Castillo Organization Sara Jacobo MD, [facility] Address [address] [place] [address] Phone Care Team Providers Care Refrigeration Operator Name Role Phone PP Unavailable CCM Unavailable Summary Purpose Interface Exchange Insurance Providers Payer name Policy type / Coverage type Covered libertarian ID Effective Begin Date Effective End Date WPS Medicare Part B Medicare Part B [id number] Unknown [facility] icare Part B [id number] Un known Family history Father Diagnosis Age At Onset Colon cancer Unknown Social History Social History Element Codes Description Effective Dates Employment Unknown [employer] unemployed Before disability 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/2018 On Disability Unknown Yes 09/27/2018 Marital status Unknown D ivorced 04/23/[address]: 084409795 Never smoker 04/23/[address]: 914202 Currently drinks alcohol occasionally drinks 04/23/2015 Allergies, [...] Fill Instructions Remeron 15 mg tablet RxNorm: 062620 1 Tablet(s) PO QHS 07/25/2019 01/20/2020 Active levothyroxine 150 mc g tablet RxNorm: 743725 1 Tablet(s) PO daily 07/18/2019 No Stop Date Active Updated script morphine 30 mg table t, crush resistant, extended release RxNorm: 6073248 1 Tablet(s) PO BID 07/18/2019 09/15/2019 Active oxymorphone 5 mg tablet RxNorm: 468394 1 Tablet(s) PO Q6 PRN 07/18/2019 09/15/2019 Active Provigil 100 mg tablet RxNorm: 265384 1 Tablet(s) PO daily 07/18/2019 09/15/2019 Active Remeron 15 mg tablet RxNorm: 067075 1 Tablet(s) PO QPM TAKE ONE TABLET BY MO UT EVERY NIGHT AT BEDTIME 07/18/2019 10/15/2019 Active morphine 30 mg table t, crush resistant, extended release RxNorm: 7182549 1 Tablet(s) PO BID 07/05/2019 07/17/2019 Inactive doxycycline hyclate 100 mg tablet RxNorm: 6293704 1 Tablet(s) PO BID 06/21/2019 07/20/2019 Inactive Provigil 100 mg tablet RxNorm: 408839 1 Tablet(s) PO daily 06/12/2019 06/11/2019 Inactive Provigil 100 mg tablet RxNorm: 659792 1 Tablet(s) PO daily 06/12/2019 07/17/2019 Inactive baclofen 10 mg tablet RxNorm: 630435 TAKE ONE TABLET BY MOUTH THREE TIMES A D AY NEEDED 05/28/2019 09/24/2019 Active tizanidine 4 mg tablet RxNorm: 760141 TAKE ONE TABLET BY MOUTH THREE TIMES A D AY NEEDED 05/28/2019 09/24/2019 Active diclofenac sodium 75 mg tablet,delayed release RxNorm: 967835 TAKE ONE TABLET BY MO UTH TWICE A DAY 05/21/2019 10/17/2019 Active doxycycline hyclate 100 mg tablet RxNorm: 7319960 1 Tablet(s) PO BID 05/14/2019 05/23/2019 Inactive oxymorphone 5 mg tablet RxNorm: 772590 1 Tablet(s) PO Q6 PRN 05/14/2019 07/12/2019 Inactive morphine 30 mg table t, crush resistant, extended release RxNorm: 6723115 1 Tablet(s) PO BID 05/14/2019 06/12/2019 Inactive morphine 30 mg table t, crush resistant, extended release RxNorm: 3424323 1 Tablet(s) PO BID 05/07/2019 05/13/2019 Inactive trazodone 50 mg tablet RxNorm: 787092 1.5 Tablet(s) PO QHS TAKE ONE TABLET BY MOUTH EVERY NIGHT AT BEDTIME AND ONE-HALF TABLET BY MOUTH NEEDED 03/12/2019 06/09/2019 Inactive morphine 30 mg table t, crush resistant, extended release RxNorm: 4203435 1 Tablet(s) PO BID 03/12/2019 04/10/2019 Inactive levothyroxine 200 mc g tablet RxNorm: 807105 1 Tablet(s) PO daily TAKE ONE TABLET BY MOUTH DAILY 03/12/2019 07/17/2019 Inactive Updated script oxymorphone 5 mg tablet RxNorm: 203442 1 Tablet(s) PO Q6 PRN 03/12/2019 05/10/2019 Inactive doxycycline hyclate 100 mg tablet RxNorm: 9811741 1 Tablet(s) PO BID 03/12/2019 03/21/2019 Inactive morphine 30 mg table t, crush resistant, extended release RxNorm: 9625311 1 Tablet(s) PO BID 03/06/2019 03/11/2019 Inactive tizanidine 4 mg tablet RxNorm: 463275 TAKE ONE TABLET BY MOUTH THREE TIMES A D AY NEEDED 02/26/2019 05/26/2019 Inactive diclofenac sodium 75 mg tablet,delayed release RxNorm: 218309 TAKE ONE TABLET BY [facility] TWICE A DAY 02/18/2019 05/18/2019 Inactive Protonix 40 mg table t,delayed release RxNorm: 316702 TAKE ONE TABLET BY [facility] DAILY 02/06/2019 09/03/2019 Ac tive trazodone 50 mg tablet RxNorm: 133766 TAKE ONE TABLET BY MOUTH EVERY NIGHT AT BEDTIME AND ONE-HALF TABLET BY MOUTH NEEDED 01/14/2019 03/11/2019 Inactive oxymorphone 5 mg tablet RxNorm: 965888 1 Tablet(s) PO Q6 PRN 01/07/2019 03/07/2019 Inactive morphine 30 mg table t, crush resistant, extended release RxNorm: 6127687 1 Tablet(s) PO BID 01/07/2019 03/05/2019 Inactive doxycycline hyclate 100 mg tablet RxNorm: 9102525 1 Tablet(s) PO BID 01/01/2019 01/10/2019 Inactive cyanocobalamin (vit B-12) 1,000 mcg/mL injection solution RxNorm: 192725 1 Milliliter(s) Inj 12/27/2018 12/27/2018 Inactive baclofen 10 mg tablet RxNorm: 123296 TAKE ONE TABLET BY MOUTH THREE TIMES A D AY NEEDED 11/29/2018 03/28/2019 Inactive Request already responded t o by other means (e.g. phone or fax) baclofen 10 mg tablet RxNorm: 361771 Tablet(s) TAKE ONE TABLET BY MOUTH THREE TIMES A DAY NEEDED 11/28/2018 11/28/2018 Inactive doxycycline hyclate 100 mg tablet RxNorm: 9106085 1 Tablet(s) PO BID 11/14/2018 11/23/2018 Inactive trazodone 50 mg tablet RxNorm: 167057 TAKE ONE TABLET BY MOUTH EVERY NIGHT AT BEDTIME AND ONE-HALF TABLET BY MOUTH NEEDED 11/12/2018 12/21/2018 Inactive tizanidine 4 mg tablet RxNorm: 905650 TAKE ONE TABLET BY MOUTH THREE TIMES A D AY NEEDED 10/22/2018 02/18/2019 Inactive diclofenac sodium 75 mg tablet,delayed release RxNorm: 415116 TAKE ONE TABLET BY [facility] TWICE A DAY 10/15/2018 02/11/2019 Inactive Lasix 20 mg tablet RxNorm: 491170 1 Tablet(s) PO daily as needed 10/10/2018 11/08/2018 In active potassium chloride E R 10 mEq tablet,extended release RxNorm: 919782 1 Tablet(s) PO daily as needed to take with lasix for inceased edema 10/10/2018 11/08/2018 Inactive potassium chloride E R 10 mEq tablet,extended release RxNorm: 142158 1 Tablet(s) PO daily as needed to take with lasix for inceased edema 10/10/2018 10/09/2018 Inactive Lasix 20 mg tablet RxNorm: 485544 1 Tablet(s) PO daily as needed 10/10/2018 10/09/2018 In active doxycycline hyclate 100 mg tablet RxNorm: 8253559 1 Tablet(s) PO BID 09/27/2018 10/10/2018 Inactive Remeron 15 mg tablet RxNorm: 902134 1.5 Tablet(s) PO QPM TAKE ONE TABLET BY MOUTH EVERY NIGHT AT BEDTIME 09/18/2018 12/16/2018 Inactive baclofen 10 mg tablet RxNorm: 314879 TAKE ONE TABLET BY MOUTH THREE TIMES A D AY NEEDED 09/12/2018 11/10/2018 Inactive Remeron 15 mg tablet RxNorm: 388589 1.5 Tablet(s) PO QPM TAKE ONE TABLET BY MOUTH EVERY NIGHT AT BEDTIME 09/03/2018 09/17/2018 Inactive oxymorphone 5 mg tablet RxNorm: 041282 1 Tablet(s) PO Q6 PRN 09/03/2018 11/01/2018 Inactive morphine 30 mg table t, crush resistant, extended release RxNorm: 2494087 1 Tablet(s) PO BID 09/03/2018 11/01/2018 Inactive trazodone 50 mg tablet RxNorm: 647544 TAKE ONE TABLET BY MOUTH EVERY NIGHT AT BEDTIME AND ONE-HALF TABLET BY MOUTH NEEDED 09/03/2018 10/12/2018 Inactive tizanidine 4 mg tablet RxNorm: 652372 TAKE ONE TABLET BY MOUTH THREE TIMES A D AY NEEDED 08/20/2018 10/18/2018 Inactive Protonix 40 mg table t,delayed release RxNorm: 532614 TAKE ONE TABLET BY [facility] DAILY 08/10/2018 02/05/2019 In active Carafate 1 gram tablet RxNorm: 658622 TAKE ONE TABLET BY MOUTH BEFORE MEALS AN D AT BEDTIME NEEDED FOR HEARTBURN 07/31/2018 12/27/2018 Inactive Protonix 40 mg table t,delayed release RxNorm: 531396 1 Tablet(s) BID 07/24/2018 07/23/2018 Inactive Protonix 40 mg table t,delayed release RxNorm: 030688 1 Tablet(s) daily 07/24/2018 08/09/2018 In active liothyronine 5 mcg t ablet RxNorm: 269271 TAKE ONE TABLET BY MO [facility] DAILY 07/19/2018 01/09/2019 In active baclofen 10 mg tablet RxNorm: 317563 TAKE ONE TABLET BY MOUTH THREE TIMES A D AY NEEDED 07/12/2018 09/09/2018 Inactive levothyroxine 175 mc g tablet RxNorm: 493263 1 Tablet(s) PO daily 07/11/2018 03/11/2019 Inactive Vitamin D2 50,000 un it capsule RxNorm: 9907734 1 Capsule(s) PO QW 07/11/2018 10/02/2018 Inactive trazodone 50 mg tablet RxNorm: 683054 TAKE ONE TABLET BY MOUTH EVERY NIGHT AT BEDTIME AND ONE-HALF TABLET BY MOUTH NEEDED 07/11/2018 08/19/2018 Inactive Vitamin D2 50,000 un it capsule RxNorm: 9728720 1 Capsule(s) PO QW 07/11/2018 07/10/2018 Inactive morphine 30 mg table t, crush resistant, extended release RxNorm: 6489581 1 Tablet(s) PO BID 07/05/2018 09/02/2018 Inactive oxymorphone 5 mg tablet RxNorm: 402421 1 Tablet(s) PO Q6 PRN 07/05/2018 09/02/2018 Inactive Remeron 15 mg tablet RxNorm: 705955 TAKE ONE TABLET BY MOUTH EVERY NIGHT AT BEDTIME 06/27/2018 09/02/2018 Inactive bupropion HCl XL 300 mg 24 hr tablet, extended release RxNorm: 617060 TAKE ONE TABLET BY MOUTH DAILY 06/27/2018 07/17/2019 Inactive tizanidine 4 mg tablet RxNorm: 810244 TAKE ONE TABLET BY MOUTH THREE TIMES A D AY NEEDED 06/20/2018 08/18/2018 Inactive doxycycline hyclate 100 mg tablet RxNorm: 8633747 1 Tablet(s) PO BID 06/18/2018 07/01/2018 Inactive Protonix 40 mg table t,delayed release RxNorm: 668211 TAKE ONE TABLET BY MO UT DAILY 06/11/2018 07/23/2018 In active doxycycline hyclate 100 mg tablet RxNorm: 4099532 1 Tablet(s) PO BID 05/22/2018 06/04/2018 Inactive baclofen 10 mg tablet RxNorm: 500398 TAKE ONE TABLET BY MOUTH THREE TIMES A D AY NEEDED 05/14/2018 07/11/2018 Inactive diclofenac sodium 75 mg tablet,delayed release RxNorm: 298611 TAKE ONE TABLET BY [facility] TWICE A DAY 05/07/2018 10/03/2018 Inactive oxymorphone 5 mg tablet RxNorm: 724167 1 Tablet(s) PO Q6 PRN 05/04/2018 07/02/2018 Inactive morphine 30 mg table t, crush resistant, extended release RxNorm: 1137289 1 Tablet(s) PO BID 05/04/2018 07/02/2018 Inactive doxycycline hyclate 100 mg tablet RxNorm: 324023 1 Tablet(s) PO BID 04/24/2018 04/23/2018 Inactive doxycycline hyclate 100 mg tablet RxNorm: 9518422 1 Tablet(s) PO BID 04/24/2018 05/03/2018 Inactive baclofen 10 mg tablet RxNorm: 465704 TAKE ONE TABLET BY MOUTH THREE TIMES A D AY NEEDED 04/13/2018 05/12/2018 Inactive trazodone 50 mg tablet RxNorm: 656888 TAKE ONE TABLET BY MOUTH EVERY NIGHT AT BEDTIME AND ONE-HALF TABLET BY MOUTH NEEDED 04/09/2018 06/07/2018 Inactive Questran 4 gram powd er for susp in a packet RxNorm: 495637 1 packet PO BID 04/06/2018 06/04/2018 In active Questran 4 gram powd er for susp in a packet RxNorm: 117493 1 packet PO BID 04/06/2018 04/05/2018 In active Carafate 1 gram tablet RxNorm: 517868 1 Tablet(s) PO AC & HS as needed for hea rtburn 03/28/2018 04/26/2018 Inactive baclofen 10 mg tablet RxNorm: 291383 TAKE ONE TABLET BY MOUTH THREE TIMES A D AY NEEDED 03/16/2018 04/12/2018 Inactive Protonix 40 mg table t,delayed release RxNorm: 328548 TAKE ONE TABLET BY [facility] DAILY 03/16/2018 06/10/2018 In active oxymorphone 5 mg tablet RxNorm: 088877 1 Tablet(s) PO Q6 PRN 02/27/2018 04/27/2018 Inactive morphine 30 mg table t, crush resistant, extended release RxNorm: 6617869 1 Tablet(s) PO BID 02/27/2018 04/27/2018 Inactive Belviq XR 20 mg tabl et,extended release RxNorm: 0626351 1 Tablet(s) PO daily 02/27/2018 01/06/2019 In active levothyroxine 100 mc g tablet RxNorm: 211128 1 Tablet(s) PO daily 02/27/2018 07/10/2018 Inactive take with 88mcg to = 188mcg daily levothyroxine 88 mcg tablet RxNorm: 150998 1 Tablet(s) PO daily 02/27/2018 07/10/2018 Inactive take with 100mcg to = 188mcg daily morphine 30 mg table t, crush resistant, extended release RxNorm: 0874916 1 Tablet(s) PO BID 02/14/2018 02/26/2018 Inactive levothyroxine 200 mc g tablet RxNorm: 569334 Tablet(s) TAKE ONE TA BLET BY MOUTH DAILY 01/18/2018 02/26/2018 Inactive Updated script baclofen 10 mg tablet RxNorm: 644249 Tablet(s) TAKE ONE TABLET BY MOUTH THREE TIMES A DAY NEEDED 01/15/2018 02/13/2018 Inactive morphine 30 mg table t, crush resistant, extended release RxNorm: 4124232 1 Tablet(s) PO BID 01/15/2018 02/13/2018 Inactive tizanidine 4 mg tablet RxNorm: 437020 TAKE ONE TABLET BY MOUTH THREE TIMES A D AY NEEDED 01/02/2018 04/01/2018 Inactive Request already responded t o by other means (e.g. phone or fax) bupropion HCl XL 300 mg 24 hr tablet, extended release RxNorm: 849173 TAKE ONE TABLET BY MOUTH DAILY 12/29/2017 06/26/2018 Inactive Tamiflu 75 mg capsule RxNorm: 706340 1 Capsule(s) PO BID 12/27/2017 12/31/2017 Inactive Tamiflu 75 mg capsule RxNorm: 806990 1 Capsule(s) PO BID 12/27/2017 12/26/2017 Inactive tizanidine 4 mg tablet RxNorm: 771375 1 Tablet(s) PO TID as needed 12/25/2017 01/01/2018 Inactive levothyroxine 175 mc g tablet RxNorm: 832158 1 Tablet(s) PO daily 12/14/2017 12/13/2017 Inactive levothyroxine 175 mc g tablet RxNorm: 429647 1 Tablet(s) PO daily 12/14/2017 01/17/2018 Inactive baclofen 10 mg tablet RxNorm: 089899 Tablet(s) TAKE ONE TABLET BY MOUTH THREE TIMES A DAY NEEDED 12/13/2017 01/11/2018 Inactive baclofen 10 mg tablet RxNorm: 421821 TAKE ONE TABLET BY MOUTH THREE TIMES A D AY NEEDED 12/13/2017 12/12/2017 Inactive morphine 30 mg table t, crush resistant, extended release RxNorm: 1084672 1 Tablet(s) PO BID 12/12/2017 01/14/2018 Inactive trazodone 50 mg tablet RxNorm: 608585 1/2 to 1 Tablet(s) QHS as needed 12/01/2017 03/30/2018 In active clonazepam 1 mg tablet RxNorm: 909455 1/2 Tablet(s) PO daily 12/01/2017 07/17/2019 Inactive Opana ER 15 mg table t, crush resistant, extended release RxNorm: 926319 1 Tablet(s) PO Q12H 12/01/2017 02/13/2018 Inactive oxymorphone 5 mg tablet RxNorm: 344327 1 Tablet(s) PO Q6 PRN 12/01/2017 02/26/2018 Inactive Remeron 15 mg tablet RxNorm: 464515 Tablet(s) TAKE ONE TABLET BY MOUTH EVERY NIGHT AT BEDTIME 12/01/2017 02/28/2018 Inactive trazodone 50 mg tablet RxNorm: 156218 1/2 Tablet(s) as needed 1 Tablet(s) PO Q HS 12/01/2017 11/30/2017 In active clonazepam 1 mg tablet RxNorm: 667246 1/2 Tablet(s) PO daily 11/30/2017 11/30/2017 Inactive Remeron 15 mg tablet RxNorm: 352735 TAKE ONE TABLET BY MOUTH EVERY NIGHT AT BEDTIME 11/29/2017 11/30/2017 Inactive levothyroxine 200 mc g tablet RxNorm: 035555 TAKE ONE TABLET BY MO UTH DAILY 11/15/2017 12/13/2017 In active baclofen 10 mg tablet RxNorm: 868180 TAKE ONE TABLET BY MOUTH THREE TIMES A D AY NEEDED 11/07/2017 12/06/2017 Inactive diclofenac sodium 75 mg tablet,delayed release RxNorm: 989485 1 Tablet(s) PO BID 11/07/2017 05/05/2018 In active liothyronine 5 mcg t ablet RxNorm: 876889 TAKE ONE TABLET BY [facility] DAILY 10/27/2017 07/18/2018 In active tizanidine 4 mg tablet RxNorm: 236798 1 Tablet(s) PO TID as needed 10/18/2017 12/16/2017 Inactive oxymorphone 5 mg tablet RxNorm: 489716 1 Tablet(s) PO Q6 PRN 09/29/2017 11/27/2017 Inactive morphine 30 mg table t, crush resistant, extended release RxNorm: 4681184 1 Tablet(s) PO BID 09/29/2017 11/28/2017 Inactive baclofen 10 mg tablet RxNorm: 145637 1 Tablet(s) PO TID as needed 09/11/2017 10/10/2017 Inactive baclofen 10 mg tablet RxNorm: 825166 1 Tablet(s) PO TID as needed 08/11/2017 09/09/2017 Inactive Opana ER 15 mg table t, crush resistant, extended release RxNorm: 525282 1 Tablet(s) PO Q12H 08/11/2017 09/28/2017 Inactive Remeron 15 mg tablet RxNorm: 900458 TAKE ONE TABLET BY MOUTH EVERY NIGHT AT BEDTIME 08/02/2017 10/30/2017 Inactive oxymorphone 5 mg tablet RxNorm: 426225 1 Tablet(s) PO Q6 PRN 08/02/2017 09/28/2017 Inactive Opana ER 5 mg tablet , crush resistant, extended release RxNorm: 091070 1 Tablet(s) PO Q6 PRN 08/01/2017 08/10/2017 Inactive Protonix 40 mg table t,delayed release RxNorm: 513845 TAKE ONE TABLET BY [facility] DAILY 06/26/2017 06/25/2017 In active Protonix 40 mg table t,delayed release RxNorm: 046651 TAKE ONE TABLET BY [facility] DAILY 06/26/2017 02/05/2019 In active bupropion HCl XL 300 mg 24 hr tablet, extended release RxNorm: 152527 TAKE ONE TABLET BY MOUTH DAILY 06/13/2017 12/09/2017 Inactive tizanidine 4 mg tablet RxNorm: 381725 1 Tablet(s) PO TID as needed 06/13/2017 06/12/2017 Inactive tizanidine 4 mg tablet RxNorm: 835634 1 Tablet(s) PO TID as needed 06/13/2017 09/10/2017 Inactive baclofen 10 mg tablet RxNorm: 095989 1 Tablet(s) PO TID as needed 06/13/2017 07/12/2017 Inactive Opana ER 15 mg table t, crush resistant, extended release RxNorm: 171694 1 Tablet(s) PO Q12H 06/09/2017 08/07/2017 Inactive Opana ER 5 mg tablet , crush resistant, extended release RxNorm: 720335 1 Tablet(s) PO Q6 PRN 06/09/2017 07/31/2017 Inactive diclofenac sodium 75 mg tablet,delayed release RxNorm: 402180 1 Tablet(s) PO BID 06/09/2017 09/06/2017 In active clonazepam 1 mg tablet RxNorm: 306461 1/2 Tablet(s) PO daily 05/24/2017 11/18/2017 Inactive bupropion HCl XL 300 mg 24 hr tablet, extended release RxNorm: 589652 TAKE ONE TABLET BY MOUTH DAILY 03/16/2017 06/12/2017 Inactive clonazepam 1 mg tablet RxNorm: 070880 1/2 Tablet(s) PO daily 02/22/2017 05/18/2017 Inactive Remeron 15 mg tablet RxNorm: 969024 TAKE ONE TABLET BY MOUTH EVERY NIGHT AT BEDTIME 02/06/2017 2017 Inactive Protonix 40 mg table t,delayed release RxNorm: 953855 TAKE ONE TABLET BY MO UT DAILY 01/26/2017 06/24/2017 In active mupirocin 2 % topica l ointment RxNorm: 855423 1 Application TOP BID 01/12/2017 01/18/2017 Inactive Bactrim DS 800 mg-16 0 mg tablet RxNorm: 024054 1 Tablet(s) PO BID 11/17/2016 11/23/2016 Inactive mupirocin 2 % topica l ointment RxNorm: 071029 1 Application TOP BID 11/10/2016 11/16/2016 Inactive Bactrim DS 800 mg-16 0 mg tablet RxNorm: 589177 1 Tablet(s) PO BID 11/10/2016 11/16/2016 Inactive bupropion HCl XL 300 mg 24 hr tablet, extended release RxNorm: 570526 TAKE ONE TABLET BY MOUTH DAILY 11/07/2016 03/06/2017 Inactive liothyronine 5 mcg t ablet RxNorm: 617424 1 Tablet(s) PO daily 11/01/2016 10/26/2017 Inactive levothyroxine 200 mc g tablet RxNorm: 569972 1 Tablet(s) PO daily 10/04/2016 09/28/2017 Inactive clonazepam 1 mg tablet RxNorm: 541552 1/2 Tablet(s) PO daily 09/21/2016 03/18/2017 Inactive clonazepam 1 mg tablet RxNorm: 849797 1/2 Tablet(s) PO daily 09/16/2016 09/20/2016 Inactive Abilify 2 mg tablet RxNorm: 272523 1 Tablet(s) PO daily 09/16/2016 10/13/2016 Inactive trazodone 50 mg tablet RxNorm: 220409 1/2 Tablet(s) as needed 1 Tablet(s) PO Q HS 09/16/2016 01/13/2017 In active morphine 15 mg immed iate release tablet RxNorm: 372909 1 Tablet(s) PO Q6 PRN 09/16/2016 04/06/2017 In active baclofen 10 mg tablet RxNorm: 388730 1 Tablet(s) PO TID as needed 09/16/2016 06/12/2017 Inactive MS Contin 30 mg tabl et,extended release RxNorm: 494361 1 Tablet(s) PO Q12H 09/16/2016 04/06/2017 In active Remeron 15 mg tablet RxNorm: 565141 1 Tablet(s) PO QHS 08/19/2016 09/15/2016 Inactive levothyroxine 200 mc g tablet RxNorm: 167723 1 Tablet(s) PO daily 08/11/2016 10/03/2016 Inactive bupropion HCl XL 300 mg 24 hr tablet, extended release RxNorm: 511805 TAKE ONE TABLET BY MOUTH DAILY 08/11/2016 11/06/2016 Inactive Protonix 40 mg table t,delayed release RxNorm: 944606 1 Tablet(s) PO daily 06/17/2016 12/13/2016 In active bupropion HCl XL 300 mg 24 hr tablet, extended release RxNorm: 258329 1 Tablet(s) PO daily 05/12/2016 07/10/2016 Inactive bupropion HCl XL 300 mg 24 hr tablet, extended release RxNorm: 745664 1 Tablet(s) PO daily 05/12/2016 05/11/2016 Inactive Cialis 20 mg tablet RxNorm: 875916 1 Tablet(s) PO PRN 02/16/2016 No Stop Date Active not more than 1 tab in 24 hours morphine ER 10 mg ca psule,extended release pellets RxNorm: 081656 1 Tablet(s) PO Q6 as needed 02/16/2016 11/16/2016 Inactive clonazepam 1 mg tablet RxNorm: 820132 1/2 Tablet(s) PO BID 02/16/2016 09/15/2016 Inactive trazodone 50 mg tablet RxNorm: 888603 1/2 Tablet(s) as needed 1 Tablet(s) PO Q HS 02/16/2016 08/18/2016 In active trazodone 50 mg tablet RxNorm: 564580 1/2 Tablet(s) 1 Tablet(s) PO QHS 11/17/2015 02/15/2016 In active trazodone 50 mg tablet RxNorm: 599605 1 Tablet(s) PO QHS 10/19/2015 11/16/2015 Inactive levothyroxine 200 mc g tablet RxNorm: 139503 1 Tablet(s) PO daily 10/02/2015 08/10/2016 Inactive Wellbutrin XL 150 mg 24 hr tablet, extended release RxNorm: 610685 1 Tablet(s) PO daily 10/02/2015 05/11/2016 Inactive levothyroxine 200 mc g tablet RxNorm: 259743 1 Tablet(s) PO daily 09/30/2015 10/01/2015 Inactive Wellbutrin XL 150 mg 24 hr tablet, extended release RxNorm: 499121 1 Tablet(s) PO daily 09/30/2015 10/01/2015 Inactive trazodone 50 mg tablet RxNorm: 649311 1 Tablet(s) PO QHS 09/11/2015 10/10/2015 Inactive trazodone 50 mg tablet RxNorm: 964142 1 Tablet(s) PO QHS 09/11/2015 09/10/2015 Inactive Cymbalta 30 mg capsu le,delayed release RxNorm: 148673 1 Capsule(s) PO daily 09/07/2015 11/16/2015 In active Cymbalta 60 mg capsu le,delayed release RxNorm: 963615 1 Capsule(s) PO daily 08/31/2015 08/30/2015 In active Cymbalta 30 mg capsu le,delayed release RxNorm: 568473 1 Capsule(s) PO daily take with 60mg to make 90 mg daily 08/31/2015 09/06/2015 Inactive Cymbalta 30 mg capsu le,delayed release RxNorm: 760589 1 Capsule(s) PO daily take with 60mg to make 90 mg daily 08/31/2015 08/30/2015 Inactive Cymbalta 60 mg capsu le,delayed release RxNorm: 260394 1 Capsule(s) PO daily x 7 days and then increase to 90mg daily 08/31/2015 09/07/2015 Inactive levothyroxine 200 mc g tablet RxNorm: 382629 1 Tablet(s) PO daily 08/14/2015 09/29/2015 Inactive Wellbutrin XL 150 mg 24 hr tablet, extended release RxNorm: 601865 1 Tablet(s) PO daily 07/14/2015 09/29/2015 Inactive Cialis 20 mg tablet RxNorm: 137864 1 Tablet(s) PO PRN 07/02/2015 02/15/2016 Inactive not more than 1 tab in 24 hours liothyronine 5 mcg t ablet RxNorm: 467928 1 Tablet(s) PO daily 2015 05/29/2016 Inactive clonazepam 1 mg tablet RxNorm: 268880 1 Tablet(s) PO TID 2015 02/15/2016 Inactive minocycline 50 mg ta blet RxNorm: 521145 1 Tablet(s) PO daily 2015 05/11/2016 Inactive Wellbutrin XL 150 mg 24 hr tablet, extended release RxNorm: 271349 1 Tablet(s) PO daily 04/23/2015 07/13/2015 Inactive levothyroxine 200 mc g tablet RxNorm: 013317 1 Tablet(s) PO daily 04/23/2015 08/13/2015 Inactive Aleve oral RxNorm: 714721 oral No Start Date Active Tylenol 500 mg RxNorm: oral No Start Date Active morphine ER 15 mg ta blet,extended release RxNorm: 751379 oral No Start Date 11/16/2016 Inactive Trazadone 25 mg RxNorm: 2 PO daily No Start Date 09/11/2015 Inactive diclofenac oral RxNorm: 3355 oral No Start Date 05/04/2018 Inactive clonazepam 1 mg tablet RxNorm: 699428 1 Tablet(s) PO QHS No Start Date 06/04/2015 Inactive Wellbutrin XL 150 mg 24 hr tablet, extended release RxNorm: 974382 1 Tablet(s) PO daily No Start Date 04/22/2015 Inactive minocycline 50 mg ta blet RxNorm: 067091 1 Tablet(s) PO daily No Start Date 06/04/2015 Inactive methadone 5 mg tablet RxNorm: 999319 1 Tablet(s) PO Q8 No Start Date 02/15/2016 Inactive Protonix 40 mg table t,delayed release RxNorm: 329811 Tablet(s) PO daily No Start Date 06/16/2016 Inactive Opana ER 15 mg table t, crush resistant, extended release RxNorm: 359711 1 Tablet(s) PO Q12H No Start Date 06/08/2017 Inactive MS Contin 30 mg tabl et,extended release RxNorm: 068142 1 Tablet(s) PO Q12H No Start Date 02/15/2016 Inactive Opana ER 15 mg table t, crush resistant, extended release RxNorm: 281415 1 Tablet(s) PO BID No Start Date 09/15/2016 Inactive liothyronine 5 mcg t ablet RxNorm: 644626 1 Tablet(s) PO daily No Start Date 06/04/2015 Inactive Cialis 20 mg tablet RxNorm: 448535 1 Tablet(s) PO PRN No Start Date 07/01/2015 Inactive not more than 1 tab in 24 hours baclofen 10 mg tablet RxNorm: 070331 1 Tablet(s) PO TID as needed No Start Date 05/11/2016 Inactive morphine 15 mg immed iate release tablet RxNorm: 480515 1 Tablet(s) PO Q6 PRN as needed No Start Date 02/15/2016 Inactive levothyroxine 200 mc g tablet RxNorm: 816541 1 Tablet(s) PO daily No Start Date 04/22/2015 Inactive Opana ER 5 mg tablet , crush resistant, extended release RxNorm: 165974 1 Tablet(s) PO Q6 No Start Date 06/08/2017 Inactive Medication Administered Medication Codes Instruc tions Start Date Status cyanocobalamin (vit B-12) 1,000 mcg/mL injection solut ion RxNorm: 818519 1Milliliter 12/27/2018 No longer Active Immunizations No [...] 29.4 pg 01/07/2019 Cbc With Differential Ord2 [place]% 10.9 % 01/07/2019 Cbc With Differential Ord2 [...] 1.77 K/ul 01/07/2019 Cbc With Differential Ord2 [place] ABS# 0.5 K/ul 01/07/2019 Cbc With Differential Ord2 [place] ABS# 0.1 K/ul 01/07/2019 Cbc With Differential Ord2 [place] ABS# 0.0 K/ul 01/07/2019 Free T4 Oin856 FREE T4 2.05 ng/dL 01/07/2019 Lipid Ord30 CHOL 189 mg/dL 01/07/2019 Lipid Ord30 HDL 58.0 mg/dl 01/07/2019 Lipid Ord30 TRIG 155 mg/dL 01/07/2019 Lipid Ord30 LDL 100 mg/dL 01/07/2019 Lipid Ord30 C/HDL 3.3 Ratio 01/07/2019 Comp Metabolic Eve199 NA 137 mEq/L 01/07/2019 Comp Metabolic Cdi256 K 4.2 mEq/L 01/07/2019 Comp Metabolic Uhu527 CL 104 mEq/L 01/07/2019 Comp Metabolic Gzj506 CO2 26.0 mEq/L 01/07/2019 Comp Metabolic Ywq688 AN ION GAP 11 01/07/2019 Comp Metabolic Qga844 GL UCOSE 64 mg/dL 01/07/2019 Comp Metabolic Tyy615 Cr eat 0.8 mg/dL 01/07/2019 Comp Metabolic Fxm682 eG FR 110 ml/min/1.73m2 12/28 Comp Metabolic Mjf727 BUN 7 mg/dL 01/07/2019 Comp Metabolic Lak163 B/ C Ratio 9.0 Ratio 01/07/2019 Comp Metabolic Pkt600 CA LCIUM 9.7 mg/dL 01/07/2019 Comp Metabolic Fej247 AL K PHOS 64 U/L 01/07/2019 Comp Metabolic Vqz504 T(SGOT) 32 U/L 01/07/2019 Comp Metabolic Lno224 AL T(SGPT) 44 U/L 01/07/2019 Comp Metabolic Cmv188 BI LI T 0.3 mg/dL 01/07/2019 Comp Metabolic Loi850 AL BUMIN 4.3 g/dL 01/07/2019 Comp Metabolic Utu610 TP RO 6.5 g/dL 01/07/2019 Comp Metabolic Txz807 GL OB 2.2 g/dL 01/07/2019 Comp Metabolic Prh815 A/ G Ratio 2.0 Ratio 01/07/2019 Comp Metabolic Jtl084 Os mo 270 mOsmo 01/07/2019 Free T4 Yan161 FREE T4 1.54 ng/dL 11/05/2018 Vitamin D 25 Oh Gwo9082 VITAMIN D, 25 HYDROXY 40.65 ng/mL 11/05/2018 Tsh Ord6 TSH (3rd IS) 0.02 uIU/mL 11/05/2018 Vitamin D 25 Oh Dqs7534 VITAMIN D, 25 HYDROXY 30.96 ng/mL 07/06/2018 Comp Metabolic Jfy066 NA 141 mEq/L 07/06/2018 Comp Metabolic Nkm336 K 4.2 mEq/L 07/06/2018 Comp Metabolic Idb688 CL 103 mEq/L 07/06/2018 Comp Metabolic Zjq926 CO2 29.0 mEq/L 07/06/2018 Comp Metabolic Sma390 AN ION GAP 13 07/06/2018 Comp Metabolic Odn259 GL UCOSE 105 mg/dL 07/06/2018 Comp Metabolic Dxn377 Cr eat 0.8 mg/dL 07/06/2018 Comp Metabolic Rmi150 eG FR 101 ml/min/1.73m2 06/27 Comp Metabolic Cyk852 BUN 7 mg/dL 07/06/2018 Comp Metabolic Diz819 B/ C Ratio 8.3 Ratio 07/06/2018 Comp Metabolic Rfa900 CA LCIUM 9.9 mg/dL 07/06/2018 Comp Metabolic Qzp151 AL K PHOS 65 U/L 07/06/2018 Comp Metabolic Auk442 T(SGOT) 21 U/L 07/06/2018 Comp Metabolic Aun880 AL T(SGPT) 31 U/L 07/06/2018 Comp Metabolic Sau560 BI LI T 0.3 mg/dL 07/06/2018 Comp Metabolic Jth685 AL BUMIN 4.3 g/dL 07/06/2018 Comp Metabolic Szr477 TP RO 6.4 g/dL 07/06/2018 Comp Metabolic Gur705 GL OB 2.1 g/dL 07/06/2018 Comp Metabolic Jvq415 A/ G Ratio 2.0 Ratio 07/06/2018 Comp Metabolic Rtf499 Os mo 280 mOsmo 07/06/2018 Cbc With [...] 29.3 pg 07/06/2018 Cbc With Differential Ord2 [place]% 10.5 % 07/06/2018 Cbc With Differential Ord2 [...] 1.89 K/ul 07/06/2018 Cbc With Differential Ord2 [place] ABS# 0.5 K/ul 07/06/2018 Cbc With Differential Ord2 Eos ABS# 0.3 K/ul 07/06/2018 Cbc With Differential Ord2 Baso ABS# 0.0 K/ul 07/06/2018 Total Psa Ord10 PSA 0.34 ng/mL 07/06/2018 Tsh Ord6 TSH (3rd IS) 0.02 uIU/mL 07/06/2018 Testosterone Mwa186 Testo 400.6 ng/dL 07/06/2018 Free T4 Yzv454 FREE T4 1.48 ng/dL 07/06/2018 [place] Spotted Fever Igg/Igm 78540 3 PARTH[place] MT SPOTTED FEVER IGM EIA . 04/04/2018 [place] Spotted Fever Igg/Igm 52234 3 RMSF, IGM 0.24 index 04/04/2018 [place] Spotted Fever Igg/Igm 89095 3 PARTHA MT SPOTTED FEVER IGG EIA FLEX . 04/04/2018 [place] Spotted Fever Igg/Igm 94865 3 RMSF, IGG SCREEN-FLEX Equivocal 04/04/2018 Partha Mtn Spot'D Fev Igg 003407 RMSF, IGG- TITER IFA <1:64 04/04/2018 Ehrlichia Chaffeensis Antibody Igg [id number] EHRLICHIA CHAFFEENSIS IGG <1:64 04/02/2018 Ehrlichia Chaffeensis Antibody Igm 053321 EHRLICHIA CHAFFEENSIS IGM < 1:16 04/02/2018 Lymes Disease Total Antibodies With Western Blot Refle x [id number] B. BURGDORFERI, IGG/IGM 0.23 03/30/2018 Lymes Disease Total Antibodies With Western Blot Refle x [id number] 03/30/2018 Cbc With Differential Ord2 WBC 5.04 [...] 28.7 pg 03/28/2018 Cbc With Differential Ord2 [place]% 16.1 % 03/28/2018 Cbc With Differential Ord2 [...] 1.37 K/ul 03/28/2018 Cbc With Differential Ord2 [place] ABS# 0.8 K/ul 03/28/2018 Cbc With Differential Ord2 Eos ABS# 0.1 K/ul 03/28/2018 Cbc With Differential Ord2 Baso ABS# 0.0 K/ul 03/28/2018 Comp Metabolic Yrt735 NA 136 mEq/L 02/16/2018 Comp Metabolic Hen842 K 3.9 mEq/L 02/16/2018 Comp Metabolic Yvg663 CL 103 mEq/L 02/16/2018 Comp Metabolic Oam523 CO2 23.0 mEq/L 02/16/2018 Comp Metabolic Nqo642 AN ION GAP 14 02/16/2018 Comp Metabolic Udb385 GL UCOSE 133 mg/dL 02/16/2018 Comp Metabolic Qol302 Cr eat 0.8 mg/dL 02/16/2018 Comp Metabolic Zxr821 eG FR 103 ml/min/1.73m2 01/26 Comp Metabolic Qig132 BUN 7 mg/dL 02/16/2018 Comp Metabolic Frv668 B/ C Ratio 8.4 Ratio 02/16/2018 Comp Metabolic Bjk157 CA LCIUM 9.3 mg/dL 02/16/2018 Comp Metabolic Jgr425 AL K PHOS 71 U/L 02/16/2018 Comp Metabolic Pko058 T(SGOT) 42 U/L 02/16/2018 Comp Metabolic Oxv623 AL T(SGPT) 69 U/L 02/16/2018 Comp Metabolic Fms315 BI LI T 0.3 mg/dL 02/16/2018 Comp Metabolic Uhc560 AL BUMIN 4.1 g/dL 02/16/2018 Comp Metabolic Ylv897 TP RO 6.3 g/dL 02/16/2018 Comp Metabolic Knb027 GL OB 2.2 g/dL 02/16/2018 Comp Metabolic Erf864 A/ G Ratio 1.8 Ratio 02/16/2018 Comp Metabolic Jmk929 Os mo 272 mOsmo 02/16/2018 Free T4 Hvq118 FREE T4 1.85 ng/dL 02/16/2018 Ferritin Ord22 FERRITIN 161.7 ng/mL 02/16/2018 Tsh Ord6 TSH (3rd IS) 0.01 uIU/mL 02/16/2018 Test(s) Not Perfromed [id number] Test(s) Not Performed Test(s) Not Performed. See Below: 02/16/2018 Test(s) Not Perfromed [id number] TEST NAME CBC 02/16/2018 Test(s) Not Perfromed [id number] Rejection Reason No Suitable Specimen Receive d 02/16/2018 Test(s) Not Perfromed [id number] COMMENT Please Recollect Sample 02/16/2018 Test(s) Not Perfromed [id number] Weight Caller Fernando Goyal 02/16/2018 Tibc Ord40 Iron 138 [...] 26.4 pg 01/05/2018 Cbc With Differential Ord2 [place]% 11.9 % 01/05/2018 Cbc With Differential Ord2 [...] 2.08 K/ul 01/05/2018 Cbc With Differential Ord2 [place] ABS# 0.6 K/ul 01/05/2018 Cbc With Differential Ord2 Eos ABS# 0.2 K/ul 01/05/2018 Cbc With Differential Ord2 Baso ABS# 0.0 K/ul 01/05/2018 Ferritin Ord22 FERRITIN 5.7 ng/mL 12/06/2017 Tibc Ord40 Iron 33 ug/dl 12/06/2017 Tibc Ord40 UIBC 431 ug/dL 12/06/2017 Tibc Ord40 TIBC 464 ug/dL 12/06/2017 Tibc Ord40 Fe-%Sat 7.1 % 12/06/2017 Free T4 Yqu723 FREE T4 1.82 ng/dL 12/01/2017 Tsh Ord6 [...] 27.0 pg 12/01/2017 Cbc With Differential Ord2 [place]% 10.6 % 12/01/2017 Cbc With Differential Ord2 [...] 1.92 K/ul 12/01/2017 Cbc With Differential Ord2 [place] ABS# 0.4 K/ul 12/01/2017 Cbc With Differential Ord2 Eos ABS# 0.2 K/ul 12/01/2017 Cbc With Differential Ord2 Baso ABS# 0.0 K/ul 12/01/2017 Comp Metabolic Hor966 NA 136 mEq/L 12/01/2017 Comp Metabolic Ilz959 K 4.6 mEq/L 12/01/2017 Comp Metabolic Gss147 CL 102 mEq/L 12/01/2017 Comp Metabolic Kjv749 CO2 27.0 mEq/L 12/01/2017 Comp Metabolic Urx857 AN ION GAP 12 12/01/2017 Comp Metabolic Dex818 GL UCOSE 90 mg/dL 12/01/2017 Comp Metabolic Axd470 Cr eat 0.7 mg/dL 12/01/2017 Comp Metabolic Uko107 eG FR 123 ml/min/1.73m2 03/2018 Comp Metabolic Atg669 BUN 4 mg/dL 12/01/2017 Comp Metabolic Vxa699 B/ C Ratio 5.6 Ratio 12/01/2017 Comp Metabolic Dwe367 CA LCIUM 9.0 mg/dL 12/01/2017 Comp Metabolic Zjk657 AL K PHOS 67 U/L 12/01/2017 Comp Metabolic Xoa004 T(SGOT) 30 U/L 12/01/2017 Comp Metabolic Dmf442 AL T(SGPT) 29 U/L 12/01/2017 Comp Metabolic Xek171 BI LI T 0.3 mg/dL 12/01/2017 Comp Metabolic Xjc601 AL BUMIN 4.1 g/dL 12/01/2017 Comp Metabolic Ixq572 TP RO 6.1 g/dL 12/01/2017 Comp Metabolic Hyr670 GL OB 2.0 g/dL 12/01/2017 Comp Metabolic Lut010 A/ G Ratio 2.0 Ratio 12/01/2017 Comp Metabolic Rlq449 Os mo 268 mOsmo 12/01/2017 Comp Metabolic Glw472 NA 136 mEq/L 02/16/2016 Comp Metabolic Vom173 K 4.2 mEq/L 02/16/2016 Comp Metabolic Qjt656 CL 104 mEq/L 02/16/2016 Comp Metabolic Wzl802 CO2 20.0 mEq/L 02/16/2016 Comp Metabolic Yrf453 AN ION GAP 16 02/16/2016 Comp Metabolic Erj813 GL UCOSE 71 mg/dL 02/16/2016 Comp Metabolic Fth361 Cr eat 0.8 mg/dL 02/16/2016 Comp Metabolic Hvx657 eG FR 113 ml/min/1.73m2 01/26 Comp Metabolic Qbh370 BUN 7 mg/dL 02/16/2016 Comp Metabolic Wmt723 B/ C Ratio 9.1 Ratio 02/16/2016 Comp Metabolic Jqu607 CA LCIUM 9.4 mg/dL 02/16/2016 Comp Metabolic Sva137 AL K PHOS 57 U/L 02/16/2016 Comp Metabolic Imr545 T(SGOT) 30 U/L 02/16/2016 Comp Metabolic Rrw668 AL T(SGPT) 27 U/L 02/16/2016 Comp Metabolic Bzr924 BI LI T 0.2 mg/dL 02/16/2016 Comp Metabolic Odg904 AL BUMIN 4.4 g/dL 02/16/2016 Comp Metabolic Qdz642 TP RO 6.5 g/dL 02/16/2016 Comp Metabolic Img661 GL OB 2.1 g/dL 02/16/2016 Comp Metabolic Gce068 A/ G Ratio 2.1 Ratio 02/16/2016 Comp Metabolic Zil174 Os mo 268 mOsmo 02/16/2016 Free T4 Zlf703 FREE T4 1.20 ng/dL 02/16/2016 Cbc With [...] 30.2 pg 02/16/2016 Cbc With Differential Ord2 [place]% 9.6 % 02/16/2016 Cbc With Differential Ord2 [...] 1.50 K/ul 02/16/2016 Cbc With Differential Ord2 [place] ABS# 0.5 K/ul 02/16/2016 Cbc With Differential [...] Procedure Codes Date THER/PROPH/DIAG INJ SC/IM CPT-4: 37356 12/27/2018 VITAMIN B12 INJECTION CPT-4: J3420 12/27/2018 PPPS, SUBSEQ VISIT CPT- 4: G0439 09/17/2018 Vital Signs Date Vital 07/18/2019 Blood Pressure 1: 86/52 Code: 8480-6 BMI: 35.5 Code: 64873-7 Heart Rate 1: 65 bpm Height: 5'6" SpO2: 97% Weight: 220 lbs 05/14/2019 Blood Pressure 1: 120/70 Code: 8480-6 BMI: 36.2 Code: 26983-4 Heart Rate 1: 65 bpm Height: 5'6" SpO2: 98% Weight: 224 lbs 03/12/2019 Blood Pressure 1: 130/76 Code: 8480-6 BMI: 38.6 Code: 03398-6 Heart Rate 1: 83 bpm Height: 5'6" SpO2: 99% Weight: 239 lbs 01/07/2019 Blood Pressure 1: 124/80 Code: 8480-6 BMI: 38.3 Code: 77218-8 Heart Rate 1: 88 bpm Height: 5'6" SpO2: 97% Weight: 237 lbs 12/27/2018 Blood Pressure 1: 122/80 Code: 8480-6 BMI: 38.6 Code: 21068-3 Heart Rate 1: 72 bpm Height: 5'6" SpO2: 98% Weight: 239 lbs 11/05/2018 Blood Pressure 1: 122/64 Code: 8480-6 BMI: 37.4 Code: 03075-7 Heart Rate 1: 66 bpm Height: 5'6" SpO2: 97% Weight: 232 lbs 09/27/2018 Blood Pressure 1: 92/66 Code: 8480-6 BMI: 37.9 Code: 14264-5 Heart Rate 1: 66 bpm Height: 5'6" SpO2: 98% Weight: 235 lbs 09/17/2018 Blood Pressure 1: 110/72 Code: 8480-6 BMI: 38.3 Code: 75609-2 Heart Rate 1: 77 bpm Height: 5'6" SpO2: 95% Waist Measure (cm): 102 cm Weight: 237 lbs 09/03/2018 Blood Pressure 1: 122/68 Code: 8480-6 BMI: 37.6 Code: 09293-3 Heart Rate 1: 78 bpm Height: 5'6" SpO2: 97% Weight: 233 lbs 07/05/2018 Blood Pressure 1: 94/62 Code: 8480-6 BMI: 36.8 Code: 37898-6 Heart Rate 1: 88 bpm Height: 5'6" SpO2: 99% Weight: 228 lbs 05/04/2018 Blood Pressure 1: 110/80 Code: 8480-6 BMI: 35.5 Code: 18624-9 Heart Rate 1: 80 bpm Height: 5'6" SpO2: 99% Weight: 220 lbs 03/28/2018 Blood Pressure 1: 110/72 Code: 8480-6 BMI: 35.0 Code: 52103-7 Heart Rate 1: 80 bpm Height: 5'6" SpO2: 98% Temperature: 36.2 (C ) / 97.1 (F) Weight: 217 lbs 02/27/2018 Blood Pressure 1: 136/76 Code: 8480-6 BMI: 36.0 Code: 99294-0 Heart Rate 1: 80 bpm Height: 5'6" SpO2: 98% Weight: 223 lbs 12/01/2017 Blood Pressure 1: 132/72 Code: 8480-6 BMI: 33.4 Code: 27283-3 Heart Rate 1: 82 bpm Height: 5'6" SpO2: 97% Weight: 207 lbs 09/29/2017 Blood Pressure 1: 124/68 Code: 8480-6 BMI: 32.1 Code: 70939-3 Heart Rate 1: 77 bpm Height: 5'6" SpO2: 98% Weight: 199 lbs 08/11/2017 Blood Pressure 1: 154/82 Code: 8480-6 BMI: 31.6 Code: 06399-9 Heart Rate 1: 75 bpm Height: 5'6" SpO2: 98% Weight: 196 lbs 06/09/2017 Blood Pressure 1: 148/88 Code: 8480-6 BMI: 28.6 Code: 44703-6 Heart Rate 1: 88 bpm Height: 5'6" SpO2: 98% Weight: 177 lbs 04/07/2017 Blood Pressure 1: 140/84 Code: 8480-6 BMI: 30.3 Code: 76277-8 Heart Rate 1: 81 bpm Height: 5'6" SpO2: 99% Weight: 188 lbs 11/17/2016 Blood Pressure 1: 130/72 Code: 8480-6 Heart Rate 1: 63 bpm Height: SpO2: 93% Weight: 11/10/2016 Blood Pressure 1: 128/86 Code: 8480-6 BMI: 30.3 Code: 88534-6 Heart Rate 1: 84 bpm Height: 5'6" SpO2: 96% Weight: 188 lbs 10/14/2016 Heigh t: 5'6" 09/16/2016 Blood Pressure 1: 130/80 Code: 8480-6 BMI: 30.3 Code: 20720-6 Heart Rate 1: 67 bpm Height: 5'6" SpO2: 99% Weight: 188 lbs 08/19/2016 Blood Pressure 1: 110/62 Code: 8480-6 BMI: 29.9 Code: 67972-7 Heart Rate 1: 70 bpm Height: 5'6" SpO2: 97% Weight: 185 lbs 06/17/2016 Blood Pressure 1: 112/68 Code: 8480-6 BMI: 27.6 Code: 76759-0 Heart Rate 1: 61 bpm Height: 5'6" SpO2: 98% Weight: 171 lbs 05/12/2016 Blood Pressure 1: 130/76 Code: 8480-6 BMI: 29.7 Code: 43299-2 Heart Rate 1: 103 bpm Height: 5'6" SpO2: 98% Weight: 184 lbs 02/16/2016 Blood Pressure 1: 140/82 Code: 8480-6 BMI: 28.7 Code: 29026-0 Heart Rate 1: 66 bpm Height: 5'6" SpO2: 99% Weight: 178 lbs 11/17/2015 Blood Pressure 1: 120/74 Code: 8480-6 BMI: 29.4 Code: 92838-1 Heart Rate 1: 90 bpm Height: 5'6" SpO2: 94% Weight: 182 lbs 08/28/2015 Blood Pressure 1: 128/76 Code: 8480-6 BMI: 27.9 Code: 34053-2 Heart Rate 1: 80 bpm Height: 5'6" SpO2: 98% Weight: 173 lbs 05/28/2015 Blood Pressure 1: 122/70 Code: 8480-6 BMI: 27.0 Code: 38059-8 Heart Rate 1: 74 bpm Height: 5'6" SpO2: 98% Weight: 167 lbs 04/23/2015 Blood Pressure 1: 110/60 Code: 8480-6 BMI: 27.0 Code: 11963-6 Heart Rate 1: 68 bpm Height: 5'6" [...] and Resolution ongoing 09/03/2018 None 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 P ATIENT, LEVEL IV Diagnosis: Chronic pain syndrome[ICD10: G89.4] Diagnosis: Major depressive disorder, recurrent, moderate[ICD10: F33.1] Diagnosis: Hypothyroidism, unspecified[ICD10: E03.9] Leydi Jacobo MD, [facility] CPT-4: 51876 07/18/[id number]) 37480 EST. P ATIENT, LEVEL III Diagnosis: Chronic pain syndrome[ICD10: G89.4] Diagnosis: Hypothyroidism, unspecified[ICD10: E03.9] Leydi Jacobo MD, [facility] CPT-4: 29755 05/14/2019 [id number]) 72718 EST. P ATIENT, LEVEL III Diagnosis: Hypothyroidism, unspecified[ICD10: E03.9] Diagnosis: Chronic pain syndrome[ICD10: G89.4] Leydi Jacobo MD, [facility] CPT-4: 35601 03/12/[id number]) 50871 EST. P ATIENT, LEVEL IV Diagnosis: Chronic pain syndrome[ICD10: G89.4] Diagnosis: Hypothyroidism, unspecified[ICD10: E03.9] Diagnosis: Encounter for screening for lipoid disorders[ICD10: Z13.220] Diagnosis: Major depressive disorder, recurrent, moderate[ICD10: F33.1] Leydi Jacobo MD, [facility] CPT-4: 02703 01/07/2019 ([id number]) 42203 EST. P ATIENT, LEVEL III Diagnosis: Obstructive sleep apnea (adult) (pediatric)[ICD10: G47.33] Diagnosis: Hypothyroidism, unspecified[ICD10: E03.9] Diagnosis: Vitamin B12 deficiency anemia, unspecified[ICD10: D51.9] Leydi Jacobo MD, [facility] CPT-4: 67853 12/27/2018 ([id number]) 77190 EST. P ATIENT, LEVEL IV Diagnosis: Hypothyroidism, unspecified[ICD10: E03.9] Diagnosis: Major depressive disorder, recurrent, moderate[ICD10: F33.1] Diagnosis: Chronic pain syndrome[ICD10: G89.4] Leydi Jacobo MD, [facility] CPT-4: 87568 11/05/2018 ([id number]) 71430 EST. P ATIENT, LEVEL IV Diagnosis: Chronic pain syndrome[ICD10: G89.4] Diagnosis: Hypothyroidism, unspecified[ICD10: E03.9] Diagnosis: Other fatigue[ICD10: R53.83] Diagnosis: Other obesity due to excess calories[ICD10: E66.09] Diagnosis: Major depressive disorder, recurrent, moderate[ICD10: F33.1] Leydi Jacobo MD, [facility] CPT-4: 35798 09/27/2018 ([id number]) 22458 EST. P ATIENT, LEVEL III Diagnosis: Chronic pain syndrome[ICD10: G89.4] Leydi Jacobo MD, [facility] CPT-4: 54384 09/03/2018 ([id number]) 07760 EST. P ATIENT, LEVEL IV Diagnosis: Hypothyroidism, unspecified[ICD10: E03.9] Diagnosis: Major depressive disorder, recurrent, moderate[ICD10: F33.1] Diagnosis: Chronic pain syndrome[ICD10: G89.4] Diagnosis: Other male erectile dysfunction[ICD10: N52.8] Diagnosis: Other fatigue[ICD10: R53.83] Diagnosis: Encounter for screening for malignant neoplasm of prostate[ICD10: Z12.5] Leydi Jacobo MD, [facility] CPT-4: 05213 07/05/2018 ([id number]) 99045 EST. P ATIENT, LEVEL IV Diagnosis: Chronic pain syndrome[ICD10: G89.4] Diagnosis: Hypothyroidism, unspecified[ICD10: E03.9] Diagnosis: Major depressive disorder, recurrent, moderate[ICD10: F33.1] Leydi Jacobo MD, [facility] CPT-4: 56592 05/04/2018 69173 EST. PATIENT, LEVEL IV Diagnosis: Melena[ICD10: K92.1] Diagnosis: Other malaise[ICD10: R53.81] Diagnosis: Other fatigue[ICD10: R53.83] Diagnosis: Pain in unspecified joint[ICD10: M25.50] Diagnosis: Diarrhea, unspecified[ICD10: R19.7] Denae Jacobo MD, [facility] CPT-4: 70825 03/28/2018 ([id number]) 29415 EST. P ATIENT, LEVEL IV Diagnosis: Chronic pain syndrome[ICD10: G89.4] Diagnosis: Hypothyroidism, unspecified[ICD10: E03.9] Diagnosis: Other obesity due to excess calories[ICD10: E66.09] Diagnosis: Major depressive disorder, recurrent, moderate[ICD10: F33.1] Diagnosis: Obstructive sleep apnea (adult) (pediatric)[ICD10: G47.33] Leydi Jacobo MD, [facility] CPT-4: 32872 02/27/2018 28590 EST. PATIENT, LEVEL IV Diagnosis: Other specified hypothyroidism[ICD10: E03.8] Diagnosis: Chronic pain syndrome[ICD10: G89.4] Diagnosis: Major depressive disorder, recurrent, moderate[ICD10: F33.1] [facility] CPT-4: 74338 12/01/2017 ([id number]) 82117 EST. P ATIENT, LEVEL IV Diagnosis: Chronic pain syndrome[ICD10: G89.4] Diagnosis: Alcohol dependence, uncomplicated[ICD10: F10.20] Diagnosis: Major depressive disorder, recurrent, moderate[ICD10: F33.1] Leydi Jacobo MD, [facility] CPT-4: 10121 09/29/2017 ([id number]) 46982 EST. P ATIENT, LEVEL IV Diagnosis: Chronic pain syndrome[ICD10: G89.4] Diagnosis: Alcohol dependence, uncomplicated[ICD10: F10.20] Diagnosis: Major depressive disorder, recurrent, moderate[ICD10: F33.1] Leydi Jacobo MD, [facility] CPT-4: 34349 08/11/2017 ([id number]) 57341 EST. P ATIENT, LEVEL III Diagnosis: Chronic pain syndrome[ICD10: G89.4] Diagnosis: Major depressive disorder, recurrent, moderate[ICD10: F33.1] Leydi Jacobo MD, [facility] CPT-4: 84702 06/09/2017 ([id number]) 39879 EST. P ATIENT, LEVEL III Diagnosis: Chronic pain syndrome[ICD10: G89.4] Diagnosis: Pain in left knee[ICD10: M25.562] Leydi Jacobo MD, [facility] CPT- 4: 79640 04/07/2017 21702 EST. PATIENT, LEVEL II Diagnosis: Superficial foreign body of left upper arm, initial encounter[ICD10: S40.852A] Diagnosis: Cellulitis of left upper limb[ICD10: L03.114] Leydi Jacobo MD, [facility] CPT-4: 30008 11/17/2016 46097 EST. PATIENT, LEVEL II Diagnosis: Cellulitis of left upper limb[ICD10: L03.114] Leydi Jacobo MD, [facility] CPT-4: 59260 11/10/2016 ([id number]) 58059 EST. P ATIENT, LEVEL III Diagnosis: Chronic pain syndrome[ICD10: G89.4] Diagnosis: Major depressive disorder, recurrent, moderate[ICD10: F33.1] Leydi Jacobo MD, [facility] CPT-4: 23511 10/14/2016 50149 EST. PATIENT, LEVEL IV Diagnosis: Psychophysiologic insomnia[ICD10: F51.04] Diagnosis: Major depressive disorder, recurrent, moderate[ICD10: F33.1] Diagnosis: Alcohol dependence, uncomplicated[ICD10: F10.20] Diagnosis: Chronic pain syndrome[ICD10: G89.4] Leydi Jacobo MD, [facility] CPT-4: 57018 09/16/2016 ([id number]) 78319 EST. P ATIENT, LEVEL III Diagnosis: Pain in left shoulder[ICD10: M25.512] Diagnosis: Major depressive disorder, recurrent, moderate[ICD10: F33.1] Diagnosis: Psychophysiologic insomnia[ICD10: F51.04] Leydi Jacobo MD, [facility] CPT-4: 58613 08/19/2016 ([id number]) 73799 EST. P ATIENT, LEVEL III Diagnosis: Gastro-esophageal reflux disease without esophagitis[ICD10: K21.9] Diagnosis: Hypothyroidism, unspecified[ICD10: E03.9] Leydi Jacobo MD, [facility] CPT-4: 80622 06/17/2016 ([id number]) 30550 EST. P ATIENT, LEVEL IV Diagnosis: Gastro-esophageal reflux disease without esophagitis[ICD10: K21.9] Diagnosis: Hypothyroidism, unspecified[ICD10: E03.9] Diagnosis: Major depressive disorder, recurrent, moderate[ICD10: F33.1] Leydi Jacobo MD, [facility] CPT-4: 54789 05/12/2016 ([id number]) 41329 EST. P ATIENT, LEVEL III Diagnosis: Cervicalgia[ICD10: M54.2] Diagnosis: Hypothyroidism, unspecified[ICD10: E03.9] Diagnosis: Other male erectile dysfunction[ICD10: N52.8] Leydi Jacobo MD, [facility] CPT-4: 42134 02/16/2016 ([id number]) 60836 EST. P ATIENT, LEVEL III Diagnosis: Lumbago with sciatica, unspecified side[ICD10: M54.40] Diagnosis: Other male erectile dysfunction[ICD10: N52.8] Leydi Jacobo MD, [facility] CPT-4: 42803 11/17/2015 ([id number]) 66859 EST. P ATIENT, LEVEL III Diagnosis: Lumbago with sciatica, unspecified side[ICD10: M54.40] Diagnosis: Hypothyroidism, unspecified[ICD10: E03.9] Diagnosis: Other male erectile dysfunction[ICD10: N52.8] [facility] CPT-4: 72010 08/28/2015 ([id number]) 39092 EST. P ATIENT, LEVEL III Diagnosis: Back pain, chronic[ICD9: 724.5] Diagnosis: Depression[ICD9: 311] Diagnosis: Hypothyroid[ICD9: 244.9] Diagnosis: Bilateral calf pain[ICD9: 729.5] [facility] CPT-4: 00653 05/28/2015 ([id number]) OFFICE VISI T, NEW - LEVEL 4 Diagnosis: Back pain, chronic[ICD9: 724.5] Diagnosis: Depression[ICD9: 311] Diagnosis: Hypothyroid[ICD9: 244.9] [facility] CPT-4: 81644 04/23/2015 Plan of Care Planned Activity Notes C odes Status Date Visit Plan: Chronic Pain Syndrome - pt has chronic pain - has been maintained on current medications, has not sought out other medications, only uses PRN pain medications as directed, and understands the consequences of over-medication. Hypothyroidism -managed by state wildlife officer Depression -not well controlled -taking 1/2 tab of remeron -increase to a full tab -follow up in 2 months, discussed switching medication if no improvement. Instructed patient and his to call if symptoms do not improve or if any worse. 07/18/2019 Appointment: Leydi Hightower WPtel: [address] [place], [place] [phone] (30 min) Complex 07/18/2019 Patient Education: Patient [...] termination from this medical practice. Hypothyroidism- seeing state wildlife officer 05/14/2019 Appointment: Leydi Hightower WPtel: [address] [place], [place] [phone] (30 min) Complex 05/14/2019 Patient Education: Patient Medication Summary Completed 05/14/2019 Visit Plan: Hypothyroidism -refer kaitlynn Yan at [facility] Chronic Pain Syndrome - pt has chronic pain - has been maintained on current medications, has not sought out other medications, only uses PRN pain medications as directed, and understands the consequences of over-medication. 03/12/2019 Appointment: Leydi Hightower WPtel: [phone] [place] (30 min) Complex 03/12/2019 Patient Education: Patient Medication Summary Completed 03/12/2019 Appointment: Leydi Hightower WPtel: [phone] [place] (30 min) Complex 03/05/2019 Visit Plan: [...] ultrasound 01/07/2019 Appointment: Leydi Hightower WPtel: [phone] [phone] (30 min) Complex 01/07/2019 Patient Education: Patient [...] office 12/27/2018 Appointment: Leydi Hightower WPtel: [phone] [phone] [place] (15 min) Moderate 12/27/2018 Patient Education: [...] medications. 11/05/2018 Appointment: Leydi Hightower WPtel: [phone] [phone] (30 min) Complex 11/05/2018 Patient Education: Patient [...] control. 09/27/2018 Appointment: Leydi Hightower WPtel: [phone] [phone] (15 min) Moderate 09/27/2018 Patient Education: Patient [...] surrogate. 09/17/2018 Appointment: Leydi Hightower WPtel: [phone] - Annual Wellness Visit 09/17/2018 Patient Education: Patient Medication Summary Completed 09/17/2018 Visit Plan: Chronic Pain Syndrome - pt has chronic pain - has been maintained on current medications, has not sought out other medications, only uses PRN pain medications as directed, and understands the consequences of over-medication. 09/03/2018 Appointment: Leydi Hightower WPtel: [phone] (30 min) Complex 09/03/2018 Patient Education: [...] exposure. No change in current medications. Fatigue-weight [id number] labs including testosterone level 07/05/2018 Visit Plan: [...] exposure. No change in current medications. Fatigue-weight moux-JC-hcnbp labs including testosterone level 07/05/2018 Appointment: Leydi Hightower WPtel: [address] [place], [place] [phone] [place] (15 min) Moderate 07/05/2018 Patient Education: [...] BID 05/04/2018 Appointment[facility] [phone] [phone] [place] (15 min) Moderate 05/04/2018 Patient Education: [...] pain. 03/28/2018 Appointment: Denae Mart[facility] [phone] [phone] [place] (30 min) Complex 03/28/2018 Appointment: Nurse [...] this time. 02/27/2018 Appointment: Leydi Hightower [facility]Ptel: [phone] (15 min) Moderate 02/27/2018 Patient Education: Patient [...] control. 12/01/2017 Appointment: Den[facility] Mart[facility] [phone] [phone] (30 min) Complex 12/01/2017 Patient Education: Patient [...] treatment 09/29/2017 Appointment: [facility] Hightower [facility] [phone] [phone] [place] (30 min) Complex 09/29/2017 Patient Education: [...] cons ider 08/11/2017 Appointment: [facility] [phone] [phone] (30 min) Complex 08/11/2017 Patient Education: Patient [...] current medications. 06/09/2017 Appointment: Leydi Hightower WPtel: [phone] (30 min) Complex 06/09/2017 Patient Education: Patient [...] completely resolve 11/17/2016 Appointment: Leydi Hightower WPtel: [address] [place] [address] (30 min) Complex 11/17/2016 Patient Education: Patient [...] in pain. 11/10/2016 Appointment: Leydi Hightower WPtel: [phone] (30 min) Complex 11/10/2016 Patient Education: Patient [...] of plan. 10/14/2016 Appointment: Leydi Hightower WPtel: [address] [place], [place] [phone] (30 min) Complex 10/14/2016 Patient Education: Patient [...] try 09/16/2016 Appointment: Leydi Hightower WPtel: [phone] [phone] (30 min) Complex 09/16/2016 Patient Education: Patient Medication Summary Completed 09/16/2016 Visit Plan: Left shoulder and elbow pain-xray shoulder and elbow Inhkwunbsf-achanwkg-vulbnfwfjjca-d/c trazodone-start remeron at bedtime Pt has been [...] patient. 08/19/2016 Appointment: Leydi Hightower WPtel: [phone] [phone] (30 min) Complex 08/19/2016 Patient Education: Patient [...] Obesity Completed 06/17/2016 Appointment: Leydi Hightower WPtel: [phone] [phone] (30 min) Complex 06/09/2016 Visit Plan: Esophageal [...] of control. 05/12/2016 Appointment: Leydi Hightower WPtel: [address] [place], [place] [phone] (30 min) Complex 05/12/2016 Patient Education: Patient [...] in office. 05/28/2015 Appointment: Leydi Hightower WPtel: [phone] (30 min) Complex 05/28/2015 Patient Education: Patient [...] Care Plan: COMPLETE CBC AUTOMATED LOINC : 12446-3 Ordered 04/23/2015 Instructions Comment B12 injection monthl y x 2 months [...] termination from this medical practice. Hypothyroidism- seeing state wildlife officer . Chronic Pain Syndr ome - pt [...] exposure. No change in current medications. Fatigue-weight icby-NT-lnbbp labs including testosterone level . Chronic Pain [...] exposure. No change in current medications. Fatigue-weight pbwc-ST-miefu labs including testosterone level Get Immodium over [...] Check D-Dimer today in office. . Chronic pain-manag ed by Dr Perez-not happy with current treatments and medications-instructed him I will speak with Dr Jacobo for her recommendations Hypothyroidism-no change in medications ED-samples of cialis for prn use STOP TRAZODONE START REMERON AT BEDTIME . Left shoulder and elbow pain-xray shou lder and elbow Uwthhxocja-ajqtknmn-arfwzttwrnht-d/c trazodone-start remeron at bedtime Pt has been [...] not completely resolve RECOMMEND SLEEP STUD Y SORIN DECREASE LEVOTHYROXINE TO 188MCG DAILY . Chronic [...] Hypothyroidism -re sierra to Noemi Yan at [facility] Chronic Pain Syndrome - pt has chronic [...] patient states he will try . Chronic pain-manag ed by Dr Perez-no [...] LABS AT NEXT A PPT INCREASE ACID [employer] TO TWICE DAILY . Chronic Pain Syndrome [...] the consequences of over-medication. Hypothyroidism -managed by state wildlife officer Depression -not well controlled -taking 1/2 tab of remeron -increase to a full tab -follow up in 2 months, discussed switching medication if no improvement. Instructed patient and his to call if symptoms do not improve or if any worse. . Chronic Pain Syndr ome - pt [...] dependence-alcohol free x 11 days-attending outpatient treatment DECREASE LEVOTHYROXI NE TO 175MCG DAILY -REPEAT [...]
--- OUTSIDE RECORDS SUMMARY | 2020-03-17 14:26 | XMS REPORT | CCD ---
Author Author Thai Castillo Organization Sara Jacobo MD, [facility] Address [address] [place] [address] Phone Care Team Providers Care Speech Language Pathologist Prn Name Role Phone PP Unavailable CCM Unavailable Summary Purpose Interface Exchange Insurance Providers Payer name Policy type / Coverage type Covered constitution party ID Effective Begin Date Effective End Date WPS Medicare Part B Medicare Part B [id number] Unknown [facility] icare Part B [id number] Un known Family history Father Diagnosis Age At Onset Colon cancer Unknown Social History Social History Element Codes Description Effective Dates Employment Unknown [employer] nt[employer] unemployed Before disability 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 On Disability Unknown Yes 09/27/2018 Marital status Unknown D ivorced 04/23/[address]: 028094319 Never smoker 04/23/[address]: 021528 Currently drinks alcohol occasionally drinks 04/23/2015 Allergies, [...] Date Stop Date Sta tus Fill Instructions levothyroxine 150 mc g tablet RxNorm: 753493 1 Tablet(s) PO daily 07/18/2019 No Stop Date Active Updated script morphine 30 mg table t, crush resistant, extended release RxNorm: 7230693 1 Tablet(s) PO BID 07/18/2019 09/15/2019 Active oxymorphone 5 mg tablet RxNorm: 402410 1 Tablet(s) PO Q6 PRN 07/18/2019 09/15/2019 Active Provigil 100 mg tablet RxNorm: 400258 1 Tablet(s) PO daily 07/18/2019 09/15/2019 Active Remeron 15 mg tablet RxNorm: 864142 1 Tablet(s) PO QPM TAKE ONE TABLET BY MO UT EVERY NIGHT AT BEDTIME 07/18/2019 10/15/2019 Active morphine 30 mg table t, crush resistant, extended release RxNorm: 0697138 1 Tablet(s) PO BID 07/05/2019 07/17/2019 Inactive doxycycline hyclate 100 mg tablet RxNorm: 3573458 1 Tablet(s) PO BID 06/21/2019 07/20/2019 Active Provigil 100 mg tablet RxNorm: 181110 1 Tablet(s) PO daily 06/12/2019 06/11/2019 Inactive Provigil 100 mg tablet RxNorm: 930694 1 Tablet(s) PO daily 06/12/2019 07/17/2019 Inactive baclofen 10 mg tablet RxNorm: 620033 TAKE ONE TABLET BY MOUTH THREE TIMES A D AY NEEDED 05/28/2019 09/24/2019 Active tizanidine 4 mg tablet RxNorm: 204988 TAKE ONE TABLET BY MOUTH THREE TIMES A D AY NEEDED 05/28/2019 09/24/2019 Active diclofenac sodium 75 mg tablet,delayed release RxNorm: 040262 TAKE ONE TABLET BY MO UT TWICE A DAY 05/21/2019 10/17/2019 Active doxycycline hyclate 100 mg tablet RxNorm: 8961984 1 Tablet(s) PO BID 05/14/2019 05/23/2019 Inactive oxymorphone 5 mg tablet RxNorm: 433802 1 Tablet(s) PO Q6 PRN 05/14/2019 07/12/2019 Inactive morphine 30 mg table t, crush resistant, extended release RxNorm: 7151728 1 Tablet(s) PO BID 05/14/2019 06/12/2019 Inactive morphine 30 mg table t, crush resistant, extended release RxNorm: 7762109 1 Tablet(s) PO BID 05/07/2019 05/13/2019 Inactive trazodone 50 mg tablet RxNorm: 807463 1.5 Tablet(s) PO QHS TAKE ONE TABLET BY MOUTH EVERY NIGHT AT BEDTIME AND ONE-HALF TABLET BY MOUTH NEEDED 03/12/2019 06/09/2019 Inactive morphine 30 mg table t, crush resistant, extended release RxNorm: 6213778 1 Tablet(s) PO BID 03/12/2019 04/10/2019 Inactive levothyroxine 200 mc g tablet RxNorm: 782072 1 Tablet(s) PO daily TAKE ONE TABLET BY MOUTH DAILY 03/12/2019 07/17/2019 Inactive Updated script oxymorphone 5 mg tablet RxNorm: 429233 1 Tablet(s) PO Q6 PRN 03/12/2019 05/10/2019 Inactive doxycycline hyclate 100 mg tablet RxNorm: 1237153 1 Tablet(s) PO BID 03/12/2019 03/21/2019 Inactive morphine 30 mg table t, crush resistant, extended release RxNorm: 1941557 1 Tablet(s) PO BID 03/06/2019 03/11/2019 Inactive tizanidine 4 mg tablet RxNorm: 393769 TAKE ONE TABLET BY MOUTH THREE TIMES A D AY NEEDED 02/26/2019 05/26/2019 Inactive diclofenac sodium 75 mg tablet,delayed release RxNorm: 897021 TAKE ONE TABLET BY [facility] TWICE A DAY 02/18/2019 05/18/2019 Inactive Protonix 40 mg table t,delayed release RxNorm: 907208 TAKE ONE TABLET BY [facility] DAILY 02/06/2019 09/03/2019 Ac tive trazodone 50 mg tablet RxNorm: 614247 TAKE ONE TABLET BY MOUTH EVERY NIGHT AT BEDTIME AND ONE-HALF TABLET BY MOUTH NEEDED 01/14/2019 03/11/2019 Inactive oxymorphone 5 mg tablet RxNorm: 650998 1 Tablet(s) PO Q6 PRN 01/07/2019 03/07/2019 Inactive morphine 30 mg table t, crush resistant, extended release RxNorm: 0380193 1 Tablet(s) PO BID 01/07/2019 03/05/2019 Inactive doxycycline hyclate 100 mg tablet RxNorm: 7474817 1 Tablet(s) PO BID 01/01/2019 01/10/2019 Inactive cyanocobalamin (vit B-12) 1,000 mcg/mL injection solution RxNorm: 141427 1 Milliliter(s) Inj 12/27/2018 12/27/2018 Inactive baclofen 10 mg tablet RxNorm: 639528 TAKE ONE TABLET BY MOUTH THREE TIMES A D AY NEEDED 11/29/2018 03/28/2019 Inactive Request already responded t o by other means (e.g. phone or fax) baclofen 10 mg tablet RxNorm: 437183 Tablet(s) TAKE ONE TABLET BY MOUTH THREE TIMES A DAY NEEDED 11/28/2018 11/28/2018 Inactive doxycycline hyclate 100 mg tablet RxNorm: 0247422 1 Tablet(s) PO BID 11/14/2018 11/23/2018 Inactive trazodone 50 mg tablet RxNorm: 823550 TAKE ONE TABLET BY MOUTH EVERY NIGHT AT BEDTIME AND ONE-HALF TABLET BY MOUTH NEEDED 11/12/2018 12/21/2018 Inactive tizanidine 4 mg tablet RxNorm: 004172 TAKE ONE TABLET BY MOUTH THREE TIMES A D AY NEEDED 10/22/2018 02/18/2019 Inactive diclofenac sodium 75 mg tablet,delayed release RxNorm: 654751 TAKE ONE TABLET BY MO UT TWICE A DAY 10/15/2018 02/11/2019 Inactive Lasix 20 mg tablet RxNorm: 387949 1 Tablet(s) PO daily as needed 10/10/2018 11/08/2018 In active potassium chloride E R 10 mEq tablet,extended release RxNorm: 320545 1 Tablet(s) PO daily as needed to take with lasix for inceased edema 10/10/2018 11/08/2018 Inactive potassium chloride E R 10 mEq tablet,extended release RxNorm: 800228 1 Tablet(s) PO daily as needed to take with lasix for inceased edema 10/10/2018 10/09/2018 Inactive Lasix 20 mg tablet RxNorm: 302458 1 Tablet(s) PO daily as needed 10/10/2018 10/09/2018 In active doxycycline hyclate 100 mg tablet RxNorm: 4963869 1 Tablet(s) PO BID 09/27/2018 10/10/2018 Inactive Remeron 15 mg tablet RxNorm: 577289 1.5 Tablet(s) PO QPM TAKE ONE TABLET BY MOUTH EVERY NIGHT AT BEDTIME 09/18/2018 12/16/2018 Inactive baclofen 10 mg tablet RxNorm: 018551 TAKE ONE TABLET BY MOUTH THREE TIMES A D AY NEEDED 09/12/2018 11/10/2018 Inactive Remeron 15 mg tablet RxNorm: 684555 1.5 Tablet(s) PO QPM TAKE ONE TABLET BY MOUTH EVERY NIGHT AT BEDTIME 09/03/2018 09/17/2018 Inactive oxymorphone 5 mg tablet RxNorm: 783416 1 Tablet(s) PO Q6 PRN 09/03/2018 11/01/2018 Inactive morphine 30 mg table t, crush resistant, extended release RxNorm: 0510180 1 Tablet(s) PO BID 09/03/2018 11/01/2018 Inactive trazodone 50 mg tablet RxNorm: 901025 TAKE ONE TABLET BY MOUTH EVERY NIGHT AT BEDTIME AND ONE-HALF TABLET BY MOUTH NEEDED 09/03/2018 10/12/2018 Inactive tizanidine 4 mg tablet RxNorm: 854726 TAKE ONE TABLET BY MOUTH THREE TIMES A D AY NEEDED 08/20/2018 10/18/2018 Inactive Protonix 40 mg table t,delayed release RxNorm: 188906 TAKE ONE TABLET BY [facility] DAILY 08/10/2018 02/05/2019 In active Carafate 1 gram tablet RxNorm: 070734 TAKE ONE TABLET BY MOUTH BEFORE MEALS AN D AT BEDTIME NEEDED FOR HEARTBURN 07/31/2018 12/27/2018 Inactive Protonix 40 mg table t,delayed release RxNorm: 157034 1 Tablet(s) BID 07/24/2018 07/23/2018 Inactive Protonix 40 mg table t,delayed release RxNorm: 897404 1 Tablet(s) daily 07/24/2018 08/09/2018 In active liothyronine 5 mcg t ablet RxNorm: 165878 TAKE ONE TABLET BY MO UTH DAILY 07/19/2018 01/09/2019 In active baclofen 10 mg tablet RxNorm: 007151 TAKE ONE TABLET BY MOUTH THREE TIMES A D AY NEEDED 07/12/2018 09/09/2018 Inactive levothyroxine 175 mc g tablet RxNorm: 213011 1 Tablet(s) PO daily 07/11/2018 03/11/2019 Inactive Vitamin D2 50,000 un it capsule RxNorm: 0521955 1 Capsule(s) PO QW 07/11/2018 10/02/2018 Inactive trazodone 50 mg tablet RxNorm: 803074 TAKE ONE TABLET BY MOUTH EVERY NIGHT AT BEDTIME AND ONE-HALF TABLET BY MOUTH NEEDED 07/11/2018 08/19/2018 Inactive Vitamin D2 50,000 un it capsule RxNorm: 4662281 1 Capsule(s) PO QW 07/11/2018 07/10/2018 Inactive morphine 30 mg table t, crush resistant, extended release RxNorm: 2486142 1 Tablet(s) PO BID 07/05/2018 09/02/2018 Inactive oxymorphone 5 mg tablet RxNorm: 267810 1 Tablet(s) PO Q6 PRN 07/05/2018 09/02/2018 Inactive Remeron 15 mg tablet RxNorm: 976945 TAKE ONE TABLET BY MOUTH EVERY NIGHT AT BEDTIME 06/27/2018 09/02/2018 Inactive bupropion HCl XL 300 mg 24 hr tablet, extended release RxNorm: 596228 TAKE ONE TABLET BY MOUTH DAILY 06/27/2018 07/17/2019 Inactive tizanidine 4 mg tablet RxNorm: 580876 TAKE ONE TABLET BY MOUTH THREE TIMES A D AY NEEDED 06/20/2018 08/18/2018 Inactive doxycycline hyclate 100 mg tablet RxNorm: 4124895 1 Tablet(s) PO BID 06/18/2018 07/01/2018 Inactive Protonix 40 mg table t,delayed release RxNorm: 991155 TAKE ONE TABLET BY MO [facility] DAILY 06/11/2018 07/23/2018 In active doxycycline hyclate 100 mg tablet RxNorm: 6796621 1 Tablet(s) PO BID 05/22/2018 06/04/2018 Inactive baclofen 10 mg tablet RxNorm: 676551 TAKE ONE TABLET BY MOUTH THREE TIMES A D AY NEEDED 05/14/2018 07/11/2018 Inactive diclofenac sodium 75 mg tablet,delayed release RxNorm: 893296 TAKE ONE TABLET BY MO UT TWICE A DAY 05/07/2018 10/03/2018 Inactive oxymorphone 5 mg tablet RxNorm: 995392 1 Tablet(s) PO Q6 PRN 05/04/2018 07/02/2018 Inactive morphine 30 mg table t, crush resistant, extended release RxNorm: 7995860 1 Tablet(s) PO BID 05/04/2018 07/02/2018 Inactive doxycycline hyclate 100 mg tablet RxNorm: 563344 1 Tablet(s) PO BID 04/24/2018 04/23/2018 Inactive doxycycline hyclate 100 mg tablet RxNorm: 3820421 1 Tablet(s) PO BID 04/24/2018 05/03/2018 Inactive baclofen 10 mg tablet RxNorm: 826382 TAKE ONE TABLET BY MOUTH THREE TIMES A D AY NEEDED 04/13/2018 05/12/2018 Inactive trazodone 50 mg tablet RxNorm: 846576 TAKE ONE TABLET BY MOUTH EVERY NIGHT AT BEDTIME AND ONE-HALF TABLET BY MOUTH NEEDED 04/09/2018 06/07/2018 Inactive Questran 4 gram powd er for susp in a packet RxNorm: 971729 1 packet PO BID 04/06/2018 06/04/2018 In active Questran 4 gram powd er for susp in a packet RxNorm: 102613 1 packet PO BID 04/06/2018 04/05/2018 In active Carafate 1 gram tablet RxNorm: 393470 1 Tablet(s) PO AC & HS as needed for hea rtburn 03/28/2018 04/26/2018 Inactive baclofen 10 mg tablet RxNorm: 170532 TAKE ONE TABLET BY MOUTH THREE TIMES A D AY NEEDED 03/16/2018 04/12/2018 Inactive Protonix 40 mg table t,delayed release RxNorm: 712565 TAKE ONE TABLET BY MO [facility] DAILY 03/16/2018 06/10/2018 In active oxymorphone 5 mg tablet RxNorm: 107073 1 Tablet(s) PO Q6 PRN 02/27/2018 04/27/2018 Inactive morphine 30 mg table t, crush resistant, extended release RxNorm: 7961270 1 Tablet(s) PO BID 02/27/2018 04/27/2018 Inactive Belviq XR 20 mg tabl et,extended release RxNorm: 3578799 1 Tablet(s) PO daily 02/27/2018 01/06/2019 In active levothyroxine 100 mc g tablet RxNorm: 216315 1 Tablet(s) PO daily 02/27/2018 07/10/2018 Inactive take with 88mcg to = 188mcg daily levothyroxine 88 mcg tablet RxNorm: 805144 1 Tablet(s) PO daily 02/27/2018 07/10/2018 Inactive take with 100mcg to = 188mcg daily morphine 30 mg table t, crush resistant, extended release RxNorm: 2620791 1 Tablet(s) PO BID 02/14/2018 02/26/2018 Inactive levothyroxine 200 mc g tablet RxNorm: 265553 Tablet(s) TAKE ONE TA BLET BY MOUTH DAILY 01/18/2018 02/26/2018 Inactive Updated script baclofen 10 mg tablet RxNorm: 499364 Tablet(s) TAKE ONE TABLET BY MOUTH THREE TIMES A DAY NEEDED 01/15/2018 02/13/2018 Inactive morphine 30 mg table t, crush resistant, extended release RxNorm: 6489133 1 Tablet(s) PO BID 01/15/2018 02/13/2018 Inactive tizanidine 4 mg tablet RxNorm: 818286 TAKE ONE TABLET BY MOUTH THREE TIMES A D AY NEEDED 01/02/2018 04/01/2018 Inactive Request already responded t o by other means (e.g. phone or fax) bupropion HCl XL 300 mg 24 hr tablet, extended release RxNorm: 966044 TAKE ONE TABLET BY MOUTH DAILY 12/29/2017 06/26/2018 Inactive Tamiflu 75 mg capsule RxNorm: 097578 1 Capsule(s) PO BID 12/27/2017 12/31/2017 Inactive Tamiflu 75 mg capsule RxNorm: 377428 1 Capsule(s) PO BID 12/27/2017 12/26/2017 Inactive tizanidine 4 mg tablet RxNorm: 653122 1 Tablet(s) PO TID as needed 12/25/2017 01/01/2018 Inactive levothyroxine 175 mc g tablet RxNorm: 178492 1 Tablet(s) PO daily 12/14/2017 12/13/2017 Inactive levothyroxine 175 mc g tablet RxNorm: 925096 1 Tablet(s) PO daily 12/14/2017 01/17/2018 Inactive baclofen 10 mg tablet RxNorm: 763564 Tablet(s) TAKE ONE TABLET BY MOUTH THREE TIMES A DAY NEEDED 12/13/2017 01/11/2018 Inactive baclofen 10 mg tablet RxNorm: 376656 TAKE ONE TABLET BY MOUTH THREE TIMES A D AY NEEDED 12/13/2017 12/12/2017 Inactive morphine 30 mg table t, crush resistant, extended release RxNorm: 2305849 1 Tablet(s) PO BID 12/12/2017 01/14/2018 Inactive trazodone 50 mg tablet RxNorm: 529429 1/2 to 1 Tablet(s) QHS as needed 12/01/2017 03/30/2018 In active clonazepam 1 mg tablet RxNorm: 082069 1/2 Tablet(s) PO daily 12/01/2017 07/17/2019 Inactive Opana ER 15 mg table t, crush resistant, extended release RxNorm: 272542 1 Tablet(s) PO Q12H 12/01/2017 02/13/2018 Inactive oxymorphone 5 mg tablet RxNorm: 040532 1 Tablet(s) PO Q6 PRN 12/01/2017 02/26/2018 Inactive Remeron 15 mg tablet RxNorm: 965210 Tablet(s) TAKE ONE TABLET BY MOUTH EVERY NIGHT AT BEDTIME 12/01/2017 02/28/2018 Inactive trazodone 50 mg tablet RxNorm: 474272 1/2 Tablet(s) as needed 1 Tablet(s) PO Q HS 12/01/2017 11/30/2017 In active clonazepam 1 mg tablet RxNorm: 305916 1/2 Tablet(s) PO daily 11/30/2017 11/30/2017 Inactive Remeron 15 mg tablet RxNorm: 933247 TAKE ONE TABLET BY MOUTH EVERY NIGHT AT BEDTIME 11/29/2017 11/30/2017 Inactive levothyroxine 200 mc g tablet RxNorm: 924536 TAKE ONE TABLET BY MO UTH DAILY 11/15/2017 12/13/2017 In active baclofen 10 mg tablet RxNorm: 473266 TAKE ONE TABLET BY MOUTH THREE TIMES A D AY NEEDED 11/07/2017 12/06/2017 Inactive diclofenac sodium 75 mg tablet,delayed release RxNorm: 311600 1 Tablet(s) PO BID 11/07/2017 05/05/2018 In active liothyronine 5 mcg t ablet RxNorm: 691892 TAKE ONE TABLET BY [facility] DAILY 10/27/2017 07/18/2018 In active tizanidine 4 mg tablet RxNorm: 992695 1 Tablet(s) PO TID as needed 10/18/2017 12/16/2017 Inactive oxymorphone 5 mg tablet RxNorm: 872844 1 Tablet(s) PO Q6 PRN 09/29/2017 11/27/2017 Inactive morphine 30 mg table t, crush resistant, extended release RxNorm: 5403768 1 Tablet(s) PO BID 09/29/2017 11/28/2017 Inactive baclofen 10 mg tablet RxNorm: 151688 1 Tablet(s) PO TID as needed 09/11/2017 10/10/2017 Inactive baclofen 10 mg tablet RxNorm: 399081 1 Tablet(s) PO TID as needed 08/11/2017 09/09/2017 Inactive Opana ER 15 mg table t, crush resistant, extended release RxNorm: 207483 1 Tablet(s) PO Q12H 08/11/2017 09/28/2017 Inactive Remeron 15 mg tablet RxNorm: 018544 TAKE ONE TABLET BY MOUTH EVERY NIGHT AT BEDTIME 08/02/2017 10/30/2017 Inactive oxymorphone 5 mg tablet RxNorm: 484831 1 Tablet(s) PO Q6 PRN 08/02/2017 09/28/2017 Inactive Opana ER 5 mg tablet , crush resistant, extended release RxNorm: 715439 1 Tablet(s) PO Q6 PRN 08/01/2017 08/10/2017 Inactive Protonix 40 mg table t,delayed release RxNorm: 174216 TAKE ONE TABLET BY [facility] DAILY 06/26/2017 06/25/2017 In active Protonix 40 mg table t,delayed release RxNorm: 248959 TAKE ONE TABLET BY [facility] DAILY 06/26/2017 02/05/2019 In active bupropion HCl XL 300 mg 24 hr tablet, extended release RxNorm: 838558 TAKE ONE TABLET BY MOUTH DAILY 06/13/2017 12/09/2017 Inactive tizanidine 4 mg tablet RxNorm: 667711 1 Tablet(s) PO TID as needed 06/13/2017 06/12/2017 Inactive tizanidine 4 mg tablet RxNorm: 656487 1 Tablet(s) PO TID as needed 06/13/2017 09/10/2017 Inactive baclofen 10 mg tablet RxNorm: 552886 1 Tablet(s) PO TID as needed 06/13/2017 07/12/2017 Inactive Opana ER 15 mg table t, crush resistant, extended release RxNorm: 958067 1 Tablet(s) PO Q12H 06/09/2017 08/07/2017 Inactive Opana ER 5 mg tablet , crush resistant, extended release RxNorm: 145283 1 Tablet(s) PO Q6 PRN 06/09/2017 07/31/2017 Inactive diclofenac sodium 75 mg tablet,delayed release RxNorm: 357331 1 Tablet(s) PO BID 06/09/2017 09/06/2017 In active clonazepam 1 mg tablet RxNorm: 009994 1/2 Tablet(s) PO daily 05/24/2017 11/18/2017 Inactive bupropion HCl XL 300 mg 24 hr tablet, extended release RxNorm: 232640 TAKE ONE TABLET BY MOUTH DAILY 03/16/2017 06/12/2017 Inactive clonazepam 1 mg tablet RxNorm: 411121 1/2 Tablet(s) PO daily 02/22/2017 05/18/2017 Inactive Remeron 15 mg tablet RxNorm: 415975 TAKE ONE TABLET BY MOUTH EVERY NIGHT AT BEDTIME 02/06/2017 2017 Inactive Protonix 40 mg table t,delayed release RxNorm: 801499 TAKE ONE TABLET BY MO [facility] DAILY 01/26/2017 06/24/2017 In active mupirocin 2 % topica l ointment RxNorm: 780940 1 Application TOP BID 01/12/2017 01/18/2017 Inactive Bactrim DS 800 mg-16 0 mg tablet RxNorm: 725144 1 Tablet(s) PO BID 11/17/2016 11/23/2016 Inactive mupirocin 2 % topica l ointment RxNorm: 945160 1 Application TOP BID 11/10/2016 11/16/2016 Inactive Bactrim DS 800 mg-16 0 mg tablet RxNorm: 524396 1 Tablet(s) PO BID 11/10/2016 11/16/2016 Inactive bupropion HCl XL 300 mg 24 hr tablet, extended release RxNorm: 137697 TAKE ONE TABLET BY MOUTH DAILY 11/07/2016 03/06/2017 Inactive liothyronine 5 mcg t ablet RxNorm: 197984 1 Tablet(s) PO daily 11/01/2016 10/26/2017 Inactive levothyroxine 200 mc g tablet RxNorm: 257304 1 Tablet(s) PO daily 10/04/2016 09/28/2017 Inactive clonazepam 1 mg tablet RxNorm: 688441 1/2 Tablet(s) PO daily 09/21/2016 03/18/2017 Inactive clonazepam 1 mg tablet RxNorm: 950172 1/2 Tablet(s) PO daily 09/16/2016 09/20/2016 Inactive Abilify 2 mg tablet RxNorm: 558971 1 Tablet(s) PO daily 09/16/2016 10/13/2016 Inactive trazodone 50 mg tablet RxNorm: 865650 1/2 Tablet(s) as needed 1 Tablet(s) PO Q HS 09/16/2016 01/13/2017 In active morphine 15 mg immed iate release tablet RxNorm: 448743 1 Tablet(s) PO Q6 PRN 09/16/2016 04/06/2017 In active baclofen 10 mg tablet RxNorm: 462182 1 Tablet(s) PO TID as needed 09/16/2016 06/12/2017 Inactive MS Contin 30 mg tabl et,extended release RxNorm: 438125 1 Tablet(s) PO Q12H 09/16/2016 04/06/2017 In active Remeron 15 mg tablet RxNorm: 697821 1 Tablet(s) PO QHS 08/19/2016 09/15/2016 Inactive levothyroxine 200 mc g tablet RxNorm: 655179 1 Tablet(s) PO daily 08/11/2016 10/03/2016 Inactive bupropion HCl XL 300 mg 24 hr tablet, extended release RxNorm: 292457 TAKE ONE TABLET BY MOUTH DAILY 08/11/2016 11/06/2016 Inactive Protonix 40 mg table t,delayed release RxNorm: 399501 1 Tablet(s) PO daily 06/17/2016 12/13/2016 In active bupropion HCl XL 300 mg 24 hr tablet, extended release RxNorm: 168925 1 Tablet(s) PO daily 05/12/2016 07/10/2016 Inactive bupropion HCl XL 300 mg 24 hr tablet, extended release RxNorm: 556672 1 Tablet(s) PO daily 05/12/2016 05/11/2016 Inactive Cialis 20 mg tablet RxNorm: 868577 1 Tablet(s) PO PRN 02/16/2016 No Stop Date Active not more than 1 tab in 24 hours morphine ER 10 mg ca psule,extended release pellets RxNorm: 686268 1 Tablet(s) PO Q6 as needed 02/16/2016 11/16/2016 Inactive clonazepam 1 mg tablet RxNorm: 688274 1/2 Tablet(s) PO BID 02/16/2016 09/15/2016 Inactive trazodone 50 mg tablet RxNorm: 687635 1/2 Tablet(s) as needed 1 Tablet(s) PO Q HS 02/16/2016 08/18/2016 In active trazodone 50 mg tablet RxNorm: 019738 1/2 Tablet(s) 1 Tablet(s) PO QHS 11/17/2015 02/15/2016 In active trazodone 50 mg tablet RxNorm: 647018 1 Tablet(s) PO QHS 10/19/2015 11/16/2015 Inactive levothyroxine 200 mc g tablet RxNorm: 734609 1 Tablet(s) PO daily 10/02/2015 08/10/2016 Inactive Wellbutrin XL 150 mg 24 hr tablet, extended release RxNorm: 130205 1 Tablet(s) PO daily 10/02/2015 05/11/2016 Inactive levothyroxine 200 mc g tablet RxNorm: 985503 1 Tablet(s) PO daily 09/30/2015 10/01/2015 Inactive Wellbutrin XL 150 mg 24 hr tablet, extended release RxNorm: 640359 1 Tablet(s) PO daily 09/30/2015 10/01/2015 Inactive trazodone 50 mg tablet RxNorm: 260411 1 Tablet(s) PO QHS 09/11/2015 10/10/2015 Inactive trazodone 50 mg tablet RxNorm: 408526 1 Tablet(s) PO QHS 09/11/2015 09/10/2015 Inactive Cymbalta 30 mg capsu le,delayed release RxNorm: 692437 1 Capsule(s) PO daily 09/07/2015 11/16/2015 In active Cymbalta 60 mg capsu le,delayed release RxNorm: 327174 1 Capsule(s) PO daily 08/31/2015 08/30/2015 In active Cymbalta 30 mg capsu le,delayed release RxNorm: 387473 1 Capsule(s) PO daily take with 60mg to make 90 mg daily 08/31/2015 09/06/2015 Inactive Cymbalta 30 mg capsu le,delayed release RxNorm: 969367 1 Capsule(s) PO daily take with 60mg to make 90 mg daily 08/31/2015 08/30/2015 Inactive Cymbalta 60 mg capsu le,delayed release RxNorm: 114964 1 Capsule(s) PO daily x 7 days and then increase to 90mg daily 08/31/2015 09/07/2015 Inactive levothyroxine 200 mc g tablet RxNorm: 175629 1 Tablet(s) PO daily 08/14/2015 09/29/2015 Inactive Wellbutrin XL 150 mg 24 hr tablet, extended release RxNorm: 660528 1 Tablet(s) PO daily 07/14/2015 09/29/2015 Inactive Cialis 20 mg tablet RxNorm: 318508 1 Tablet(s) PO PRN 07/02/2015 02/15/2016 Inactive not more than 1 tab in 24 hours liothyronine 5 mcg t ablet RxNorm: 220372 1 Tablet(s) PO daily 2015 05/29/2016 Inactive clonazepam 1 mg tablet RxNorm: 985624 1 Tablet(s) PO TID 2015 02/15/2016 Inactive minocycline 50 mg ta blet RxNorm: 997639 1 Tablet(s) PO daily 2015 05/11/2016 Inactive Wellbutrin XL 150 mg 24 hr tablet, extended release RxNorm: 937780 1 Tablet(s) PO daily 04/23/2015 07/13/2015 Inactive levothyroxine 200 mc g tablet RxNorm: 482486 1 Tablet(s) PO daily 04/23/2015 08/13/2015 Inactive Aleve oral RxNorm: 793554 oral No Start Date Active Tylenol 500 mg RxNorm: oral No Start Date Active morphine ER 15 mg ta blet,extended release RxNorm: 939463 oral No Start Date 11/16/2016 Inactive Trazadone 25 mg RxNorm: 2 PO daily No Start Date 09/11/2015 Inactive diclofenac oral RxNorm: 3355 oral No Start Date 05/04/2018 Inactive clonazepam 1 mg tablet RxNorm: 242569 1 Tablet(s) PO QHS No Start Date 06/04/2015 Inactive Wellbutrin XL 150 mg 24 hr tablet, extended release RxNorm: 509340 1 Tablet(s) PO daily No Start Date 04/22/2015 Inactive minocycline 50 mg ta blet RxNorm: 211227 1 Tablet(s) PO daily No Start Date 06/04/2015 Inactive methadone 5 mg tablet RxNorm: 768024 1 Tablet(s) PO Q8 No Start Date 02/15/2016 Inactive Protonix 40 mg table t,delayed release RxNorm: 802432 Tablet(s) PO daily No Start Date 06/16/2016 Inactive Opana ER 15 mg table t, crush resistant, extended release RxNorm: 763615 1 Tablet(s) PO Q12H No Start Date 06/08/2017 Inactive MS Contin 30 mg tabl et,extended release RxNorm: 617457 1 Tablet(s) PO Q12H No Start Date 02/15/2016 Inactive Opana ER 15 mg table t, crush resistant, extended release RxNorm: 915879 1 Tablet(s) PO BID No Start Date 09/15/2016 Inactive liothyronine 5 mcg t ablet RxNorm: 916387 1 Tablet(s) PO daily No Start Date 06/04/2015 Inactive Cialis 20 mg tablet RxNorm: 133135 1 Tablet(s) PO PRN No Start Date 07/01/2015 Inactive not more than 1 tab in 24 hours baclofen 10 mg tablet RxNorm: 430828 1 Tablet(s) PO TID as needed No Start Date 05/11/2016 Inactive morphine 15 mg immed iate release tablet RxNorm: 033309 1 Tablet(s) PO Q6 PRN as needed No Start Date 02/15/2016 Inactive levothyroxine 200 mc g tablet RxNorm: 651563 1 Tablet(s) PO daily No Start Date 04/22/2015 Inactive Opana ER 5 mg tablet , crush resistant, extended release RxNorm: 518162 1 Tablet(s) PO Q6 No Start Date 06/08/2017 Inactive Medication Administered Medication Codes Instruc tions Start Date Status cyanocobalamin (vit B-12) 1,000 mcg/mL injection solut ion RxNorm: 626953 1Milliliter 12/27/2018 No longer Active Immunizations No [...] 29.4 pg 01/07/2019 Cbc With Differential Ord2 [facility]% 10.9 % 01/07/2019 Cbc With Differential Ord2 [...] 1.77 K/ul 01/07/2019 Cbc With Differential Ord2 [facility] ABS# 0.5 K/ul 01/07/2019 Cbc With Differential Ord2 [facility] ABS# 0.1 K/ul 01/07/2019 Cbc With Differential Ord2 Baso ABS# 0.0 K/ul 01/07/2019 Free T4 Xql377 FREE T4 2.05 ng/dL 01/07/2019 Lipid Ord30 CHOL 189 mg/dL 01/07/2019 Lipid Ord30 HDL 58.0 mg/dl 01/07/2019 Lipid Ord30 TRIG 155 mg/dL 01/07/2019 Lipid Ord30 LDL 100 mg/dL 01/07/2019 Lipid Ord30 C/HDL 3.3 Ratio 01/07/2019 Comp Metabolic Iro320 NA 137 mEq/L 01/07/2019 Comp Metabolic Epb129 K 4.2 mEq/L 01/07/2019 Comp Metabolic Axi578 CL 104 mEq/L 01/07/2019 Comp Metabolic Khf342 CO2 26.0 mEq/L 01/07/2019 Comp Metabolic Rrk583 AN ION GAP 11 01/07/2019 Comp Metabolic Rqp007 GL UCOSE 64 mg/dL 01/07/2019 Comp Metabolic Fhb781 Cr eat 0.8 mg/dL 01/07/2019 Comp Metabolic Vrz512 eG FR 110 ml/min/1.73m2 12/28 Comp Metabolic Fgv130 BUN 7 mg/dL 01/07/2019 Comp Metabolic Lia793 B/ C Ratio 9.0 Ratio 01/07/2019 Comp Metabolic Zms132 CA LCIUM 9.7 mg/dL 01/07/2019 Comp Metabolic Nyq342 AL K PHOS 64 U/L 01/07/2019 Comp Metabolic Xxd473 T(SGOT) 32 U/L 01/07/2019 Comp Metabolic Htw544 AL T(SGPT) 44 U/L 01/07/2019 Comp Metabolic Lqo488 BI LI T 0.3 mg/dL 01/07/2019 Comp Metabolic Ykl239 AL BUMIN 4.3 g/dL 01/07/2019 Comp Metabolic Whd566 TP RO 6.5 g/dL 01/07/2019 Comp Metabolic Pby971 GL OB 2.2 g/dL 01/07/2019 Comp Metabolic Uwg499 A/ G Ratio 2.0 Ratio 01/07/2019 Comp Metabolic Dqz547 Os mo 270 mOsmo 01/07/2019 Free T4 Bfz908 FREE T4 1.54 ng/dL 11/05/2018 Vitamin D 25 Oh Nmj9238 VITAMIN D, 25 HYDROXY 40.65 ng/mL 11/05/2018 Tsh Ord6 TSH (3rd IS) 0.02 uIU/mL 11/05/2018 Vitamin D 25 Oh Kvt9014 VITAMIN D, 25 HYDROXY 30.96 ng/mL 07/06/2018 Comp Metabolic Qtq094 NA 141 mEq/L 07/06/2018 Comp Metabolic Xxw376 K 4.2 mEq/L 07/06/2018 Comp Metabolic Pjt182 CL 103 mEq/L 07/06/2018 Comp Metabolic Qez658 CO2 29.0 mEq/L 07/06/2018 Comp Metabolic Amm021 AN ION GAP 13 07/06/2018 Comp Metabolic Bqc193 GL UCOSE 105 mg/dL 07/06/2018 Comp Metabolic Riz687 Cr eat 0.8 mg/dL 07/06/2018 Comp Metabolic Gqo069 eG FR 101 ml/min/1.73m2 06/27 Comp Metabolic Fkd928 BUN 7 mg/dL 07/06/2018 Comp Metabolic Ass628 B/ C Ratio 8.3 Ratio 07/06/2018 Comp Metabolic Icw277 CA LCIUM 9.9 mg/dL 07/06/2018 Comp Metabolic Ywl554 AL K PHOS 65 U/L 07/06/2018 Comp Metabolic Yhp752 T(SGOT) 21 U/L 07/06/2018 Comp Metabolic Pwt654 AL T(SGPT) 31 U/L 07/06/2018 Comp Metabolic Vwc822 BI LI T 0.3 mg/dL 07/06/2018 Comp Metabolic Tur282 AL BUMIN 4.3 g/dL 07/06/2018 Comp Metabolic Gcw350 TP RO 6.4 g/dL 07/06/2018 Comp Metabolic Fud918 GL OB 2.1 g/dL 07/06/2018 Comp Metabolic Zbh749 A/ G Ratio 2.0 Ratio 07/06/2018 Comp Metabolic Sds769 Os mo 280 mOsmo 07/06/2018 Cbc With [...] 29.3 pg 07/06/2018 Cbc With Differential Ord2 [place]% 10.5 % 07/06/2018 Cbc With Differential Ord2 [...] 1.89 K/ul 07/06/2018 Cbc With Differential Ord2 [place] ABS# 0.5 K/ul 07/06/2018 Cbc With Differential Ord2 Eos ABS# 0.3 K/ul 07/06/2018 Cbc With Differential Ord2 Baso ABS# 0.0 K/ul 07/06/2018 Total Psa Ord10 PSA 0.34 ng/mL 07/06/2018 Tsh Ord6 TSH (3rd IS) 0.02 uIU/mL 07/06/2018 Testosterone Xly649 Testo 400.6 ng/dL 07/06/2018 Free T4 Frr722 FREE T4 1.48 ng/dL 07/06/2018 [place] Spotted Fever Igg/Igm 57777 3 [place] SPOTTED FEVER IGM EIA . 04/04/2018 [place] Spotted Fever Igg/Igm 36783 3 RMSF, IGM 0.24 index 04/04/2018 [place] Spotted Fever Igg/Igm 86224 3 [place] MT SPOTTED FEVER IGG EIA FLEX . 04/04/2018 [place] Spotted Fever Igg/Igm 91337 3 RMSF, IGG SCREEN-FLEX Equivocal 04/04/2018 [place] Mtn Spot'D Fev Igg 239633 RMSF, IGG- TITER IFA <1:64 04/04/2018 Ehrlichia Chaffeensis Antibody Igg [id number] EHRLICHIA CHAFFEENSIS IGG <1:64 04/02/2018 Ehrlichia Chaffeensis Antibody Igm [id number] EHRLICHIA CHAFFEENSIS IGM < 1:16 04/02/2018 Lymes Disease Total Antibodies With Western Blot Refle x [id number] B. BURGDORFERI, IGG/IGM 0.23 03/30/2018 Lymes Disease Total Antibodies With Western Blot Refle x [id number] 03/30/2018 Cbc With Differential Ord2 WBC 5.04 [...] 28.7 pg 03/28/2018 Cbc With Differential Ord2 [place]% 16.1 % 03/28/2018 Cbc With Differential Ord2 [...] 1.37 K/ul 03/28/2018 Cbc With Differential Ord2 [place] ABS# 0.8 K/ul 03/28/2018 Cbc With Differential Ord2 Eos ABS# 0.1 K/ul 03/28/2018 Cbc With Differential Ord2 Baso ABS# 0.0 K/ul 03/28/2018 Comp Metabolic Izj739 NA 136 mEq/L 02/16/2018 Comp Metabolic Mqz451 K 3.9 mEq/L 02/16/2018 Comp Metabolic Qlb567 CL 103 mEq/L 02/16/2018 Comp Metabolic Erc097 CO2 23.0 mEq/L 02/16/2018 Comp Metabolic Tuv089 AN ION GAP 14 02/16/2018 Comp Metabolic Tij100 GL UCOSE 133 mg/dL 02/16/2018 Comp Metabolic Ide694 Cr eat 0.8 mg/dL 02/16/2018 Comp Metabolic Rzr600 eG FR 103 ml/min/1.73m2 01/26 Comp Metabolic Nvt205 BUN 7 mg/dL 02/16/2018 Comp Metabolic Ksj828 B/ C Ratio 8.4 Ratio 02/16/2018 Comp Metabolic Ekd939 CA LCIUM 9.3 mg/dL 02/16/2018 Comp Metabolic Yyv910 AL K PHOS 71 U/L 02/16/2018 Comp Metabolic Bke705 T(SGOT) 42 U/L 02/16/2018 Comp Metabolic Taf496 AL T(SGPT) 69 U/L 02/16/2018 Comp Metabolic Ike049 BI LI T 0.3 mg/dL 02/16/2018 Comp Metabolic Ehf659 AL BUMIN 4.1 g/dL 02/16/2018 Comp Metabolic Rsh338 TP RO 6.3 g/dL 02/16/2018 Comp Metabolic Tio796 GL OB 2.2 g/dL 02/16/2018 Comp Metabolic Ftb765 A/ G Ratio 1.8 Ratio 02/16/2018 Comp Metabolic Rng374 Os mo 272 mOsmo 02/16/2018 Free T4 Bvd021 FREE T4 1.85 ng/dL 02/16/2018 Ferritin Ord22 FERRITIN 161.7 ng/mL 02/16/2018 Tsh Ord6 TSH (3rd IS) 0.01 uIU/mL 02/16/2018 Test(s) Not Perfromed [id number] Test(s) Not Performed Test(s) Not Performed. 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% 11.9 % 01/05/2018 Cbc With Differential Ord2 [...] 2.08 K/ul 01/05/2018 Cbc With Differential Ord2 [place] ABS# 0.6 K/ul 01/05/2018 Cbc With Differential Ord2 Eos ABS# 0.2 K/ul 01/05/2018 Cbc With Differential Ord2 Baso ABS# 0.0 K/ul 01/05/2018 Ferritin Ord22 FERRITIN 5.7 ng/mL 12/06/2017 Tibc Ord40 Iron 33 ug/dl 12/06/2017 Tibc Ord40 UIBC 431 ug/dL 12/06/2017 Tibc Ord40 TIBC 464 ug/dL 12/06/2017 Tibc Ord40 Fe-%Sat 7.1 % 12/06/2017 Free T4 Eyi550 FREE T4 1.82 ng/dL 12/01/2017 Tsh Ord6 [...] 27.0 pg 12/01/2017 Cbc With Differential Ord2 [place]% 10.6 % 12/01/2017 Cbc With Differential Ord2 [...] 1.92 K/ul 12/01/2017 Cbc With Differential Ord2 [place] ABS# 0.4 K/ul 12/01/2017 Cbc With Differential Ord2 Eos ABS# 0.2 K/ul 12/01/2017 Cbc With Differential Ord2 Baso ABS# 0.0 K/ul 12/01/2017 Comp Metabolic Kxk140 NA 136 mEq/L 12/01/2017 Comp Metabolic Aob400 K 4.6 mEq/L 12/01/2017 Comp Metabolic Dvq629 CL 102 mEq/L 12/01/2017 Comp Metabolic Qmz496 CO2 27.0 mEq/L 12/01/2017 Comp Metabolic Hmp663 AN ION GAP 12 12/01/2017 Comp Metabolic Nlg199 GL UCOSE 90 mg/dL 12/01/2017 Comp Metabolic Jem289 Cr eat 0.7 mg/dL 12/01/2017 Comp Metabolic Tug941 eG FR 123 ml/min/1.73m2 03/2018 Comp Metabolic Ioa125 BUN 4 mg/dL 12/01/2017 Comp Metabolic Stq726 B/ C Ratio 5.6 Ratio 12/01/2017 Comp Metabolic Qln544 CA LCIUM 9.0 mg/dL 12/01/2017 Comp Metabolic Vlq722 AL K PHOS 67 U/L 12/01/2017 Comp Metabolic Cte036 T(SGOT) 30 U/L 12/01/2017 Comp Metabolic Obf318 AL T(SGPT) 29 U/L 12/01/2017 Comp Metabolic Msm018 BI LI T 0.3 mg/dL 12/01/2017 Comp Metabolic Boo343 AL BUMIN 4.1 g/dL 12/01/2017 Comp Metabolic Vbr433 TP RO 6.1 g/dL 12/01/2017 Comp Metabolic Fhk361 GL OB 2.0 g/dL 12/01/2017 Comp Metabolic Nhq287 A/ G Ratio 2.0 Ratio 12/01/2017 Comp Metabolic Jpq906 Os mo 268 mOsmo 12/01/2017 Comp Metabolic Uvv424 NA 136 mEq/L 02/16/2016 Comp Metabolic Qju283 K 4.2 mEq/L 02/16/2016 Comp Metabolic Uqg898 CL 104 mEq/L 02/16/2016 Comp Metabolic Xow588 CO2 20.0 mEq/L 02/16/2016 Comp Metabolic Hxe019 AN ION GAP 16 02/16/2016 Comp Metabolic Qfw912 GL UCOSE 71 mg/dL 02/16/2016 Comp Metabolic Acw551 Cr eat 0.8 mg/dL 02/16/2016 Comp Metabolic Xvq199 eG FR 113 ml/min/1.73m2 01/26 Comp Metabolic Axz193 BUN 7 mg/dL 02/16/2016 Comp Metabolic Lst538 B/ C Ratio 9.1 Ratio 02/16/2016 Comp Metabolic Xta283 CA LCIUM 9.4 mg/dL 02/16/2016 Comp Metabolic Lel998 AL K PHOS 57 U/L 02/16/2016 Comp Metabolic Tkx211 T(SGOT) 30 U/L 02/16/2016 Comp Metabolic Ale262 AL T(SGPT) 27 U/L 02/16/2016 Comp Metabolic Iwt843 BI LI T 0.2 mg/dL 02/16/2016 Comp Metabolic Peq738 AL BUMIN 4.4 g/dL 02/16/2016 Comp Metabolic Guv529 TP RO 6.5 g/dL 02/16/2016 Comp Metabolic Pvg775 GL OB 2.1 g/dL 02/16/2016 Comp Metabolic Orw845 A/ G Ratio 2.1 Ratio 02/16/2016 Comp Metabolic Fmf672 Os mo 268 mOsmo 02/16/2016 Free T4 Rmd439 FREE T4 1.20 ng/dL 02/16/2016 Cbc With [...] 30.2 pg 02/16/2016 Cbc With Differential Ord2 [place]% 9.6 % 02/16/2016 Cbc With Differential Ord2 [...] 1.50 K/ul 02/16/2016 Cbc With Differential Ord2 [place] ABS# 0.5 K/ul 02/16/2016 Cbc With Differential [...] Respiratory dyspnea on exertion 07/05/2018 Respiratory snoring 08/0 07/2018 Gastrointestinal No constipation 07/05/2018 Gastrointestinal No [...] Neurologic No headache 0 05/28/2015 Psychiatric anxiety 0 12/2014 Psychiatric depression 0 05/28/2015 Hematologic/Lymphatic No [...] developed 07/05/2018 None Full Exam - General 1995 Constitutional general appearance Development: appears older than stated age 0807/05/2018 None Full Exam - General 1995 Constitutional general appearance Nourishment: well nourished 07/05/2018 None Full Exam - General 1995 Eyes conjunctiva/eyelids Overall: conjunctiva clear 07/05/2018 None Full Exam - General 1995 Eyes conjunctiva/eyelids Overall: cornea clear 07/05/2018 None [...] developed 05/04/2018 None Full Exam - General 1995 Constitutional general appearance Development: appears older than stated age 0605/04/2018 None Full Exam - General 1995 Constitutional general appearance Nourishment: well nourished 05/04/2018 None Full Exam - General 1995 Eyes conjunctiva/eyelids Overall: conjunctiva clear 05/04/2018 None Full Exam - General 1995 Eyes conjunctiva/eyelids Overall: cornea clear 05/04/2018 None [...] Procedure Codes Date THER/PROPH/DIAG INJ SC/IM CPT-4: 67647 12/27/2018 VITAMIN B12 INJECTION CPT-4: J3420 12/27/2018 PPPS, SUBSEQ VISIT CPT- 4: G0439 09/17/2018 Vital Signs Date Vital 07/18/2019 Blood Pressure 1: 86/52 Code: 8480-6 BMI: 35.5 Code: 28560-5 Heart Rate 1: 65 bpm Height: 5'6" SpO2: 97% Weight: 220 lbs 05/14/2019 Blood Pressure 1: 120/70 Code: 8480-6 BMI: 36.2 Code: 70901-9 Heart Rate 1: 65 bpm Height: 5'6" SpO2: 98% Weight: 224 lbs 03/12/2019 Blood Pressure 1: 130/76 Code: 8480-6 BMI: 38.6 Code: 32282-4 Heart Rate 1: 83 bpm Height: 5'6" SpO2: 99% Weight: 239 lbs 01/07/2019 Blood Pressure 1: 124/80 Code: 8480-6 BMI: 38.3 Code: 24042-1 Heart Rate 1: 88 bpm Height: 5'6" SpO2: 97% Weight: 237 lbs 12/27/2018 Blood Pressure 1: 122/80 Code: 8480-6 BMI: 38.6 Code: 88522-9 Heart Rate 1: 72 bpm Height: 5'6" SpO2: 98% Weight: 239 lbs 11/05/2018 Blood Pressure 1: 122/64 Code: 8480-6 BMI: 37.4 Code: 73203-4 Heart Rate 1: 66 bpm Height: 5'6" SpO2: 97% Weight: 232 lbs 09/27/2018 Blood Pressure 1: 92/66 Code: 8480-6 BMI: 37.9 Code: 37740-8 Heart Rate 1: 66 bpm Height: 5'6" SpO2: 98% Weight: 235 lbs 09/17/2018 Blood Pressure 1: 110/72 Code: 8480-6 BMI: 38.3 Code: 51006-7 Heart Rate 1: 77 bpm Height: 5'6" SpO2: 95% Waist Measure (cm): 102 cm Weight: 237 lbs 09/03/2018 Blood Pressure 1: 122/68 Code: 8480-6 BMI: 37.6 Code: 98474-5 Heart Rate 1: 78 bpm Height: 5'6" SpO2: 97% Weight: 233 lbs 07/05/2018 Blood Pressure 1: 94/62 Code: 8480-6 BMI: 36.8 Code: 02384-2 Heart Rate 1: 88 bpm Height: 5'6" SpO2: 99% Weight: 228 lbs 05/04/2018 Blood Pressure 1: 110/80 Code: 8480-6 BMI: 35.5 Code: 46826-9 Heart Rate 1: 80 bpm Height: 5'6" SpO2: 99% Weight: 220 lbs 03/28/2018 Blood Pressure 1: 110/72 Code: 8480-6 BMI: 35.0 Code: 72655-7 Heart Rate 1: 80 bpm Height: 5'6" SpO2: 98% Temperature: 36.2 (C ) / 97.1 (F) Weight: 217 lbs 02/27/2018 Blood Pressure 1: 136/76 Code: 8480-6 BMI: 36.0 Code: 41959-1 Heart Rate 1: 80 bpm Height: 5'6" SpO2: 98% Weight: 223 lbs 12/01/2017 Blood Pressure 1: 132/72 Code: 8480-6 BMI: 33.4 Code: 74811-1 Heart Rate 1: 82 bpm Height: 5'6" SpO2: 97% Weight: 207 lbs 09/29/2017 Blood Pressure 1: 124/68 Code: 8480-6 BMI: 32.1 Code: 01948-6 Heart Rate 1: 77 bpm Height: 5'6" SpO2: 98% Weight: 199 lbs 08/11/2017 Blood Pressure 1: 154/82 Code: 8480-6 BMI: 31.6 Code: 51851-8 Heart Rate 1: 75 bpm Height: 5'6" SpO2: 98% Weight: 196 lbs 06/09/2017 Blood Pressure 1: 148/88 Code: 8480-6 BMI: 28.6 Code: 45435-0 Heart Rate 1: 88 bpm Height: 5'6" SpO2: 98% Weight: 177 lbs 04/07/2017 Blood Pressure 1: 140/84 Code: 8480-6 BMI: 30.3 Code: 90835-7 Heart Rate 1: 81 bpm Height: 5'6" SpO2: 99% Weight: 188 lbs 11/17/2016 Blood Pressure 1: 130/72 Code: 8480-6 Heart Rate 1: 63 bpm Height: SpO2: 93% Weight: 11/10/2016 Blood Pressure 1: 128/86 Code: 8480-6 BMI: 30.3 Code: 98984-9 Heart Rate 1: 84 bpm Height: 5'6" SpO2: 96% Weight: 188 lbs 10/14/2016 Heigh t: 5'6" 09/16/2016 Blood Pressure 1: 130/80 Code: 8480-6 BMI: 30.3 Code: 77371-1 Heart Rate 1: 67 bpm Height: 5'6" SpO2: 99% Weight: 188 lbs 08/19/2016 Blood Pressure 1: 110/62 Code: 8480-6 BMI: 29.9 Code: 45294-7 Heart Rate 1: 70 bpm Height: 5'6" SpO2: 97% Weight: 185 lbs 06/17/2016 Blood Pressure 1: 112/68 Code: 8480-6 BMI: 27.6 Code: 13139-3 Heart Rate 1: 61 bpm Height: 5'6" SpO2: 98% Weight: 171 lbs 05/12/2016 Blood Pressure 1: 130/76 Code: 8480-6 BMI: 29.7 Code: 33184-6 Heart Rate 1: 103 bpm Height: 5'6" SpO2: 98% Weight: 184 lbs 02/16/2016 Blood Pressure 1: 140/82 Code: 8480-6 BMI: 28.7 Code: 59662-0 Heart Rate 1: 66 bpm Height: 5'6" SpO2: 99% Weight: 178 lbs 11/17/2015 Blood Pressure 1: 120/74 Code: 8480-6 BMI: 29.4 Code: 49413-8 Heart Rate 1: 90 bpm Height: 5'6" SpO2: 94% Weight: 182 lbs 08/28/2015 Blood Pressure 1: 128/76 Code: 8480-6 BMI: 27.9 Code: 16300-8 Heart Rate 1: 80 bpm Height: 5'6" SpO2: 98% Weight: 173 lbs 05/28/2015 Blood Pressure 1: 122/70 Code: 8480-6 BMI: 27.0 Code: 07673-7 Heart Rate 1: 74 bpm Height: 5'6" SpO2: 98% Weight: 167 lbs 04/23/2015 Blood Pressure 1: 110/60 Code: 8480-6 BMI: 27.0 Code: 89814-2 Heart Rate 1: 68 bpm Height: 5'6" [...] and Resolution ongoing 09/03/2018 None hypothyroid Quality scarifier operator fe 09/03/2018 None hypothyroid Onset and Resolution [...] fatigue Quality constant 07/05/2018 None hypothyroid Quality scarifier operator fe 07/05/2018 None hypothyroid Onset and Resolution [...] Findings weight loss 03/28/2018 None hypothyroid Quality scarifier operator fe 02/27/2018 None hypothyroid Onset and Resolution [...] Encounters Encounter Performer Loca tion Codes Date ([id number]) [id number] EST. P ATIENT, LEVEL IV Diagnosis: Chronic pain syndrome[ICD10: G89.4] Diagnosis: Major depressive disorder, recurrent, moderate[ICD10: F33.1] Diagnosis: Hypothyroidism, unspecified[ICD10: E03.9] Leydi Jacobo MD, [facility] CPT-4: 20960 07/18/2019 [id number]) 11072 EST. P ATIENT, LEVEL III Diagnosis: Chronic pain syndrome[ICD10: G89.4] Diagnosis: Hypothyroidism, unspecified[ICD10: E03.9] Leydi Jacobo MD, [facility] CPT-4: 40458 05/14/2019 [id number]) [id number] EST. P ATIENT, LEVEL III Diagnosis: Hypothyroidism, unspecified[ICD10: E03.9] Diagnosis: Chronic pain syndrome[ICD10: G89.4] Leydi Jacobo MD, [facility] CPT-4: 54253 03/12/2019 [id number]) 43335 EST. P ATIENT, LEVEL IV Diagnosis: Chronic pain syndrome[ICD10: G89.4] Diagnosis: Hypothyroidism, unspecified[ICD10: E03.9] Diagnosis: Encounter for screening for lipoid disorders[ICD10: Z13.220] Diagnosis: Major depressive disorder, recurrent, moderate[ICD10: F33.1] Leydi Jacobo MD, [facility] CPT-4: 55324 01/07/2019 ([id number]) 87183 EST. P ATIENT, LEVEL III Diagnosis: Obstructive sleep apnea (adult) (pediatric)[ICD10: G47.33] Diagnosis: Hypothyroidism, unspecified[ICD10: E03.9] Diagnosis: Vitamin B12 deficiency anemia, unspecified[ICD10: D51.9] Leydi Jacobo MD, [facility] CPT-4: 68187 12/27/2018 ([id number]) 10671 EST. P ATIENT, LEVEL IV Diagnosis: Hypothyroidism, unspecified[ICD10: E03.9] Diagnosis: Major depressive disorder, recurrent, moderate[ICD10: F33.1] Diagnosis: Chronic pain syndrome[ICD10: G89.4] Leydi Jacobo MD, [facility] CPT-4: 47158 11/05/2018 ([id number]) 34183 EST. P ATIENT, LEVEL IV Diagnosis: Chronic pain syndrome[ICD10: G89.4] Diagnosis: Hypothyroidism, unspecified[ICD10: E03.9] Diagnosis: Other fatigue[ICD10: R53.83] Diagnosis: Other obesity due to excess calories[ICD10: E66.09] Diagnosis: Major depressive disorder, recurrent, moderate[ICD10: F33.1] Leydi Jacobo MD, [facility] CPT-4: 61316 09/27/2018 ([id number]) 81748 EST. P ATIENT, LEVEL III Diagnosis: Chronic pain syndrome[ICD10: G89.4] Leydi Jacobo MD, [facility] CPT-4: 31862 09/03/2018 ([id number]) 08415 EST. P ATIENT, LEVEL IV Diagnosis: Hypothyroidism, unspecified[ICD10: E03.9] Diagnosis: Major depressive disorder, recurrent, moderate[ICD10: F33.1] Diagnosis: Chronic pain syndrome[ICD10: G89.4] Diagnosis: Other male erectile dysfunction[ICD10: N52.8] Diagnosis: Other fatigue[ICD10: R53.83] Diagnosis: Encounter for screening for malignant neoplasm of prostate[ICD10: Z12.5] Leydi Jacobo MD, [facility] CPT-4: 71465 07/05/2018 ([id number]) 67878 EST. P ATIENT, LEVEL IV Diagnosis: Chronic pain syndrome[ICD10: G89.4] Diagnosis: Hypothyroidism, unspecified[ICD10: E03.9] Diagnosis: Major depressive disorder, recurrent, moderate[ICD10: F33.1] Leydi Jacobo MD, [facility] CPT-4: 12504 05/04/2018 12415 EST. PATIENT, LEVEL IV Diagnosis: Melena[ICD10: K92.1] Diagnosis: Other malaise[ICD10: R53.81] Diagnosis: Other fatigue[ICD10: R53.83] Diagnosis: Pain in unspecified joint[ICD10: M25.50] Diagnosis: Diarrhea, unspecified[ICD10: R19.7] Denae Jacobo MD, [facility] CPT-4: 14504 03/28/2018 ([id number]) 79098 EST. P ATIENT, LEVEL IV Diagnosis: Chronic pain syndrome[ICD10: G89.4] Diagnosis: Hypothyroidism, unspecified[ICD10: E03.9] Diagnosis: Other obesity due to excess calories[ICD10: E66.09] Diagnosis: Major depressive disorder, recurrent, moderate[ICD10: F33.1] Diagnosis: Obstructive sleep apnea (adult) (pediatric)[ICD10: G47.33] Leydi Jacobo MD, [facility] CPT-4: 73200 02/27/2018 97364 EST. PATIENT, LEVEL IV Diagnosis: Other specified hypothyroidism[ICD10: E03.8] Diagnosis: Chronic pain syndrome[ICD10: G89.4] Diagnosis: Major depressive disorder, recurrent, moderate[ICD10: F33.1] Denae Jacobo MD, [facility] CPT-4: 10244 12/01/2017 ([id number]) 68093 EST. P ATIENT, LEVEL IV Diagnosis: Chronic pain syndrome[ICD10: G89.4] Diagnosis: Alcohol dependence, uncomplicated[ICD10: F10.20] Diagnosis: Major depressive disorder, recurrent, moderate[ICD10: F33.1] Leydi Jacobo MD, [facility] CPT-4: 84326 09/29/2017 ([id number]) 65620 EST. P ATIENT, LEVEL IV Diagnosis: Chronic pain syndrome[ICD10: G89.4] Diagnosis: Alcohol dependence, uncomplicated[ICD10: F10.20] Diagnosis: Major depressive disorder, recurrent, moderate[ICD10: F33.1] Leydi Jacobo MD, [facility] CPT-4: 94763 08/11/2017 ([id number]) 52754 EST. P ATIENT, LEVEL III Diagnosis: Chronic pain syndrome[ICD10: G89.4] Diagnosis: Major depressive disorder, recurrent, moderate[ICD10: F33.1] Leydi Jacobo MD, [facility] CPT-4: 06917 06/09/2017 ([id number]) 63788 EST. P ATIENT, LEVEL III Diagnosis: Chronic pain syndrome[ICD10: G89.4] Diagnosis: Pain in left knee[ICD10: M25.562] Leydi Jacobo MD, [facility] CPT- 4: 75589 04/07/2017 79915 EST. PATIENT, LEVEL II Diagnosis: Superficial foreign body of left upper arm, initial encounter[ICD10: S40.852A] Diagnosis: Cellulitis of left upper limb[ICD10: L03.114] Leydi Jacobo MD, [facility] CPT-4: 62935 11/17/2016 78551 EST. PATIENT, LEVEL II Diagnosis: Cellulitis of left upper limb[ICD10: L03.114] Leydi Jacobo MD, [facility] CPT-4: 57697 11/10/2016 ([id number]) 87758 EST. P ATIENT, LEVEL III Diagnosis: Chronic pain syndrome[ICD10: G89.4] Diagnosis: Major depressive disorder, recurrent, moderate[ICD10: F33.1] Leydi Jacobo MD, [facility] CPT-4: 69957 10/14/2016 55928 EST. PATIENT, LEVEL IV Diagnosis: Psychophysiologic insomnia[ICD10: F51.04] Diagnosis: Major depressive disorder, recurrent, moderate[ICD10: F33.1] Diagnosis: Alcohol dependence, uncomplicated[ICD10: F10.20] Diagnosis: Chronic pain syndrome[ICD10: G89.4] Leydi Jacobo MD, [facility] CPT-4: 93372 09/16/2016 ([id number]) 17799 EST. P ATIENT, LEVEL III Diagnosis: Pain in left shoulder[ICD10: M25.512] Diagnosis: Major depressive disorder, recurrent, moderate[ICD10: F33.1] Diagnosis: Psychophysiologic insomnia[ICD10: F51.04] Leydi Jacobo MD, [facility] CPT-4: 06189 08/19/2016 ([id number]) 92826 EST. P ATIENT, LEVEL III Diagnosis: Gastro-esophageal reflux disease without esophagitis[ICD10: K21.9] Diagnosis: Hypothyroidism, unspecified[ICD10: E03.9] Leydi Jacobo MD, [facility] CPT-4: 88927 06/17/2016 ([id number]) 87714 EST. P ATIENT, LEVEL IV Diagnosis: Gastro-esophageal reflux disease without esophagitis[ICD10: K21.9] Diagnosis: Hypothyroidism, unspecified[ICD10: E03.9] Diagnosis: Major depressive disorder, recurrent, moderate[ICD10: F33.1] Leydi Jacobo MD, [facility] CPT-4: 67026 05/12/2016 ([id number]) 82160 EST. P ATIENT, LEVEL III Diagnosis: Cervicalgia[ICD10: M54.2] Diagnosis: Hypothyroidism, unspecified[ICD10: E03.9] Diagnosis: Other male erectile dysfunction[ICD10: N52.8] Leydi Jacobo MD, [facility] CPT-4: 24271 02/16/2016 ([id number]) 57907 EST. P ATIENT, LEVEL III Diagnosis: Lumbago with sciatica, unspecified side[ICD10: M54.40] Diagnosis: Other male erectile dysfunction[ICD10: N52.8] Leydi Jacobo MD, [facility] CPT-4: 94589 11/17/2015 ([id number]) 47064 EST. P ATIENT, LEVEL III Diagnosis: Lumbago with sciatica, unspecified side[ICD10: M54.40] Diagnosis: Hypothyroidism, unspecified[ICD10: E03.9] Diagnosis: Other male erectile dysfunction[ICD10: N52.8] Leydi Jacobo MD, [facility] CPT-4: 07846 08/28/2015 ([id number]) 24284 EST. P ATIENT, LEVEL III Diagnosis: Back pain, chronic[ICD9: 724.5] Diagnosis: Depression[ICD9: 311] Diagnosis: Hypothyroid[ICD9: 244.9] Diagnosis: Bilateral calf pain[ICD9: 729.5] [facility] CPT-4: 67935 05/28/2015 ([id number]) OFFICE VISI T NEW - LEVEL 4 Diagnosis: Back pain, chronic[ICD9: 724.5] Diagnosis: Depression[ICD9: 311] Diagnosis: Hypothyroid[ICD9: 244.9] [facility] CPT-4: 48727 04/23/2015 Plan of Care Planned Activity Notes C odes Status Date Visit Plan: Chronic Pain Syndrome - pt has chronic pain - has been maintained on current medications, has not sought out other medications, only uses PRN pain medications as directed, and understands the consequences of over-medication. Hypothyroidism -managed by french edge operator Depression -not well controlled -taking 1/2 tab of remeron -increase to a full tab -follow up in 2 months, discussed switching medication if no improvement. Instructed patient and his to call if symptoms do not improve or if any worse. 07/18/2019 Patient Education: Patient Medication Summary Completed [...] termination from this medical practice. Hypothyroidism- seeing french edge operator 05/14/2019 Appointment: Leydi Hightower WPtel: [address] [place], [place] [phone] (30 min) Complex 05/14/2019 Patient Education: Patient Medication Summary Completed 05/14/2019 Visit Plan: Hypothyroidism -refer kaitlynn Yan at [facility] Chronic Pain Syndrome - pt has chronic pain - has been maintained on current medications, has not sought out other medications, only uses PRN pain medications as directed, and understands the consequences of over-medication. 03/12/2019 Appointment: Leydi Hightower WPtel: [phone] (30 min) Complex 03/12/2019 Patient Education: Patient Medication Summary Completed 03/12/2019 Appointment: Leydi Hightower WPtel: [phone] (30 min) Complex 03/05/2019 Visit Plan: Chronic [...] thyroid ultrasound 01/07/2019 Appointment: Leydi Hightower WPtel: [phone] (30 min) Complex 01/07/2019 Patient Education: Patient [...] the office 12/27/2018 Appointment: Leydi Hightower WPtel: [address] [place], [place] [phone] (15 min) Moderate 12/27/2018 Patient Education: Patient [...] medications. 11/05/2018 Appointment: [facility] [phone] [phone] (30 min) Complex 11/05/2018 Patient Education: Patient [...] of control. 09/27/2018 Appointment: Ley[facility] Hightower [facility]Ptel[facility] [phone] [phone] (15 min) Moderate 09/27/2018 Patient Education: Patient [...] surrogate. 09/17/2018 Appointment: Leydi Hightower [facility]Ptel[facility] [phone] [phone] [facility] - Annual Wellness Visit 09/17/2018 Patient Education: Patient Medication Summary Completed 09/17/2018 Visit Plan: Chronic Pain Syndrome - pt has chronic pain - has been maintained on current medications, has not sought out other medications, only uses PRN pain medications as directed, and understands the consequences of over-medication. 09/03/2018 Appointment: Leydi Hightower [facility]Ptel[facility] [phone] [phone] (30 min) Complex 09/03/2018 Patient Education: Patient [...] exposure. No change in current medications. Fatigue-weight nsws-RC-kwhdd labs including testosterone level 07/05/2018 Visit Plan: [...] exposure. No change in current medications. Fatigue-weight ymld-VL-kvqxi labs including testosterone level 07/05/2018 Appointment: Leydi Hightower WPtel: [phone] [phone] (15 min) Moderate 07/05/2018 Patient Education: Patient [...] to BID 05/04/2018 Appointment: Leydi Hightower WPtel[facility] [phone] [phone] (15 min) Moderate 05/04/2018 Patient Education: Patient [...] pain. 03/28/2018 Appointment: Denae Martínez WPtel: [phone] [facility] (30 min) Complex 03/28/2018 Appointment: Nurse Visit [...] time. 02/27/2018 Appointment: Leydi Hightower WPtel[facility] [phone] [phone] (15 min) Moderate 02/27/2018 Patient Education: [...] of control. 12/01/2017 Appointment: Denae Martínez [facility]Ptel[facility] [phone] [facility] (30 min) Complex 12/01/2017 Patient Education: [...] outpatient treatment 09/29/2017 Appointment: Leydi Hightower WPtel: [phone] (30 min) Complex 09/29/2017 Patient Education: Patient [...] cons ider 08/11/2017 Appointment: Leydi Hightower WPtel: [address] [place], [place] [phone] (30 min) Complex 08/11/2017 Patient Education: Patient [...] current medications. 06/09/2017 Appointment: Leydi Hightower WPtel: [address] [place], [place] [phone] (30 min) Complex 06/09/2017 Patient Education: Patient [...] completely resolve 11/17/2016 Appointment: Leydi Hightower WPtel: [facility]9 [phone] (30 min) Complex 11/17/2016 Patient Education: Patient [...] in pain. 11/10/2016 Appointment: Leydi Hightower WPtel: [address] [place], [place] [phone] (30 min) Complex 11/10/2016 Patient Education: Patient [...] of plan. 10/14/2016 Appointment: Leydi Hightower WPtel: [address] [place], [place] [phone] (30 min) Complex 10/14/2016 Patient Education: Patient [...] will try 09/16/2016 Appointment: Leydi Hightower WPtel: [address] [place], [place] [phone] (30 min) Complex 09/16/2016 Patient Education: Patient Medication Summary Completed 09/16/2016 Visit Plan: Left shoulder and elbow pain-xray shoulder and elbow Gjxqwmiqcp-gzfrwuls-iwcagneeslpm-d/c trazodone-start remeron at bedtime Pt has been [...] this patient. 08/19/2016 Appointment: Leydi Hightower WPtel: [address] [place], [place] [phone] [place] [address] (30 min) Complex 08/19/2016 Patient Education: Patient [...] Obesity Completed 06/17/2016 Appointment: Leydi Hightower WPtel: [address] [place], [place] [phone] [address] (30 min) Complex 06/09/2016 Visit Plan: Esophageal [...] of control. 05/12/2016 Appointment: Leydi Hightower WPtel: [phone] (30 min) Complex 05/12/2016 Patient Education: Patient [...] in office. 05/28/2015 Appointment: Leydi Hightower WPtel: [phone] (30 min) Complex 05/28/2015 Patient Education: [...] Care Plan: COMPLETE CBC AUTOMATED LOINC : 62536-4 Ordered 04/23/2015 Instructions Comment DECREASE LEVOTHYROXI NE [...] termination from this medical practice. Hypothyroidism- seeing french edge operator . Chronic Pain Syndr ome - pt [...] exposure. No change in current medications. Fatigue-weight ddhl-XC-cbubb labs including testosterone level . Chronic Pain [...] exposure. No change in current medications. Fatigue-weight xius-VN-esogd labs including testosterone level Get Immodium over [...] and elbow pain-xray shou lder and elbow Amiwzszryt-hkkmtdrv-ddhwbasfbkwo-d/c trazodone-start remeron at bedtime Pt has been [...] Hypothyroidism -re [place] to Noemi Yan at [facility] Chronic Pain Syndrome - pt has chronic [...] the consequences of over-medication. 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 Chronic Pain Syndrome [...]
--- OUTSIDE RECORDS SUMMARY | 2020-03-17 14:30 | XMS REPORT | CCD ---
Author Author Thai Castillo Organization Sara Jacobo MD, [facility] Address [address] [place] [address] Phone Care Team Providers Care Pegger Name Role Phone PP Unavailable CCM Unavailable Summary Purpose Interface Exchange Insurance Providers Payer name Policy type / Coverage type Covered republican ID Effective Begin Date Effective End Date WPS Medicare Part B Medicare Part B [id number] Unknown [facility] icare Part B [id number] Un known Family history Father Diagnosis Age At Onset Colon cancer Unknown Social History Social History Element Codes Description Effective Dates Employment Unknown [employer] unemployed Before disability 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 On Disability Unknown Yes 09/27/2018 Marital status Unknown D ivorced 04/23/[address]: 615844539 Never smoker 04/23/[address]: 842097 Currently drinks alcohol occasionally drinks 04/23/2015 Allergies, [...] Instructions levothyroxine 150 mc g tablet RxNorm: 352097 1 Tablet(s) PO daily 07/18/2019 No Stop Date Active Updated script morphine 30 mg table t, crush resistant, extended release RxNorm: 4789852 1 Tablet(s) PO BID 07/18/2019 09/15/2019 Active oxymorphone 5 mg tablet RxNorm: 150132 1 Tablet(s) PO Q6 PRN 07/18/2019 09/15/2019 Active Provigil 100 mg tablet RxNorm: 801322 1 Tablet(s) PO daily 07/18/2019 09/15/2019 Active Remeron 15 mg tablet RxNorm: 569764 1 Tablet(s) PO QPM TAKE ONE TABLET BY MO UT EVERY NIGHT AT BEDTIME 07/18/2019 10/15/2019 Active morphine 30 mg table t, crush resistant, extended release RxNorm: 4379002 1 Tablet(s) PO BID 07/05/2019 07/17/2019 Inactive doxycycline hyclate 100 mg tablet RxNorm: 4506282 1 Tablet(s) PO BID 06/21/2019 07/20/2019 Active Provigil 100 mg tablet RxNorm: 786670 1 Tablet(s) PO daily 06/12/2019 06/11/2019 Inactive Provigil 100 mg tablet RxNorm: 295325 1 Tablet(s) PO daily 06/12/2019 07/17/2019 Inactive baclofen 10 mg tablet RxNorm: 060456 TAKE ONE TABLET BY MOUTH THREE TIMES A D AY NEEDED 05/28/2019 09/24/2019 Active tizanidine 4 mg tablet RxNorm: 694335 TAKE ONE TABLET BY MOUTH THREE TIMES A D AY NEEDED 05/28/2019 09/24/2019 Active diclofenac sodium 75 mg tablet,delayed release RxNorm: 833542 TAKE ONE TABLET BY MO UT TWICE A DAY 05/21/2019 10/17/2019 Active doxycycline hyclate 100 mg tablet RxNorm: 6686023 1 Tablet(s) PO BID 05/14/2019 05/23/2019 Inactive oxymorphone 5 mg tablet RxNorm: 658280 1 Tablet(s) PO Q6 PRN 05/14/2019 07/12/2019 Inactive morphine 30 mg table t, crush resistant, extended release RxNorm: 4178986 1 Tablet(s) PO BID 05/14/2019 06/12/2019 Inactive morphine 30 mg table t, crush resistant, extended release RxNorm: 8308002 1 Tablet(s) PO BID 05/07/2019 05/13/2019 Inactive trazodone 50 mg tablet RxNorm: 142863 1.5 Tablet(s) PO QHS TAKE ONE TABLET BY MOUTH EVERY NIGHT AT BEDTIME AND ONE-HALF TABLET BY MOUTH NEEDED 03/12/2019 06/09/2019 Inactive morphine 30 mg table t, crush resistant, extended release RxNorm: 0715794 1 Tablet(s) PO BID 03/12/2019 04/10/2019 Inactive levothyroxine 200 mc g tablet RxNorm: 960440 1 Tablet(s) PO daily TAKE ONE TABLET BY MOUTH DAILY 03/12/2019 07/17/2019 Inactive Updated script oxymorphone 5 mg tablet RxNorm: 151995 1 Tablet(s) PO Q6 PRN 03/12/2019 05/10/2019 Inactive doxycycline hyclate 100 mg tablet RxNorm: 9512553 1 Tablet(s) PO BID 03/12/2019 03/21/2019 Inactive morphine 30 mg table t, crush resistant, extended release RxNorm: 6982666 1 Tablet(s) PO BID 03/06/2019 03/11/2019 Inactive tizanidine 4 mg tablet RxNorm: 172415 TAKE ONE TABLET BY MOUTH THREE TIMES A D AY NEEDED 02/26/2019 05/26/2019 Inactive diclofenac sodium 75 mg tablet,delayed release RxNorm: 009326 TAKE ONE TABLET BY [facility] TWICE A DAY 02/18/2019 05/18/2019 Inactive Protonix 40 mg table t,delayed release RxNorm: 429821 TAKE ONE TABLET BY [facility] DAILY 02/06/2019 09/03/2019 Ac tive trazodone 50 mg tablet RxNorm: 064912 TAKE ONE TABLET BY MOUTH EVERY NIGHT AT BEDTIME AND ONE-HALF TABLET BY MOUTH NEEDED 01/14/2019 03/11/2019 Inactive oxymorphone 5 mg tablet RxNorm: 681563 1 Tablet(s) PO Q6 PRN 01/07/2019 03/07/2019 Inactive morphine 30 mg table t, crush resistant, extended release RxNorm: 2276915 1 Tablet(s) PO BID 01/07/2019 03/05/2019 Inactive doxycycline hyclate 100 mg tablet RxNorm: 6540501 1 Tablet(s) PO BID 01/01/2019 01/10/2019 Inactive cyanocobalamin (vit B-12) 1,000 mcg/mL injection solution RxNorm: 305061 1 Milliliter(s) Inj 12/27/2018 12/27/2018 Inactive baclofen 10 mg tablet RxNorm: 977901 TAKE ONE TABLET BY MOUTH THREE TIMES A D AY NEEDED 11/29/2018 03/28/2019 Inactive Request already responded t o by other means (e.g. phone or fax) baclofen 10 mg tablet RxNorm: 409612 Tablet(s) TAKE ONE TABLET BY MOUTH THREE TIMES A DAY NEEDED 11/28/2018 11/28/2018 Inactive doxycycline hyclate 100 mg tablet RxNorm: 8022871 1 Tablet(s) PO BID 11/14/2018 11/23/2018 Inactive trazodone 50 mg tablet RxNorm: 263750 TAKE ONE TABLET BY MOUTH EVERY NIGHT AT BEDTIME AND ONE-HALF TABLET BY MOUTH NEEDED 11/12/2018 12/21/2018 Inactive tizanidine 4 mg tablet RxNorm: 699950 TAKE ONE TABLET BY MOUTH THREE TIMES A D AY NEEDED 10/22/2018 02/18/2019 Inactive diclofenac sodium 75 mg tablet,delayed release RxNorm: 744219 TAKE ONE TABLET BY MO UT TWICE A DAY 10/15/2018 02/11/2019 Inactive Lasix 20 mg tablet RxNorm: 043286 1 Tablet(s) PO daily as needed 10/10/2018 11/08/2018 In active potassium chloride E R 10 mEq tablet,extended release RxNorm: 871436 1 Tablet(s) PO daily as needed to take with lasix for inceased edema 10/10/2018 11/08/2018 Inactive potassium chloride E R 10 mEq tablet,extended release RxNorm: 170952 1 Tablet(s) PO daily as needed to take with lasix for inceased edema 10/10/2018 10/09/2018 Inactive Lasix 20 mg tablet RxNorm: 900424 1 Tablet(s) PO daily as needed 10/10/2018 10/09/2018 In active doxycycline hyclate 100 mg tablet RxNorm: 8914751 1 Tablet(s) PO BID 09/27/2018 10/10/2018 Inactive Remeron 15 mg tablet RxNorm: 717944 1.5 Tablet(s) PO QPM TAKE ONE TABLET BY MOUTH EVERY NIGHT AT BEDTIME 09/18/2018 12/16/2018 Inactive baclofen 10 mg tablet RxNorm: 017621 TAKE ONE TABLET BY MOUTH THREE TIMES A D AY NEEDED 09/12/2018 11/10/2018 Inactive Remeron 15 mg tablet RxNorm: 428582 1.5 Tablet(s) PO QPM TAKE ONE TABLET BY MOUTH EVERY NIGHT AT BEDTIME 09/03/2018 09/17/2018 Inactive oxymorphone 5 mg tablet RxNorm: 385286 1 Tablet(s) PO Q6 PRN 09/03/2018 11/01/2018 Inactive morphine 30 mg table t, crush resistant, extended release RxNorm: 3020425 1 Tablet(s) PO BID 09/03/2018 11/01/2018 Inactive trazodone 50 mg tablet RxNorm: 998650 TAKE ONE TABLET BY MOUTH EVERY NIGHT AT BEDTIME AND ONE-HALF TABLET BY MOUTH NEEDED 09/03/2018 10/12/2018 Inactive tizanidine 4 mg tablet RxNorm: 525610 TAKE ONE TABLET BY MOUTH THREE TIMES A D AY NEEDED 08/20/2018 10/18/2018 Inactive Protonix 40 mg table t,delayed release RxNorm: 135684 TAKE ONE TABLET BY [facility] DAILY 08/10/2018 02/05/2019 In active Carafate 1 gram tablet RxNorm: 904831 TAKE ONE TABLET BY MOUTH BEFORE MEALS AN D AT BEDTIME NEEDED FOR HEARTBURN 07/31/2018 12/27/2018 Inactive Protonix 40 mg table t,delayed release RxNorm: 741957 1 Tablet(s) BID 07/24/2018 07/23/2018 Inactive Protonix 40 mg table t,delayed release RxNorm: 404164 1 Tablet(s) daily 07/24/2018 08/09/2018 In active liothyronine 5 mcg t ablet RxNorm: 962611 TAKE ONE TABLET BY MO UTH DAILY 07/19/2018 01/09/2019 In active baclofen 10 mg tablet RxNorm: 847650 TAKE ONE TABLET BY MOUTH THREE TIMES A D AY NEEDED 07/12/2018 09/09/2018 Inactive levothyroxine 175 mc g tablet RxNorm: 417686 1 Tablet(s) PO daily 07/11/2018 03/11/2019 Inactive Vitamin D2 50,000 un it capsule RxNorm: 3929352 1 Capsule(s) PO QW 07/11/2018 10/02/2018 Inactive trazodone 50 mg tablet RxNorm: 146796 TAKE ONE TABLET BY MOUTH EVERY NIGHT AT BEDTIME AND ONE-HALF TABLET BY MOUTH NEEDED 07/11/2018 08/19/2018 Inactive Vitamin D2 50,000 un it capsule RxNorm: 3616114 1 Capsule(s) PO QW 07/11/2018 07/10/2018 Inactive morphine 30 mg table t, crush resistant, extended release RxNorm: 8873948 1 Tablet(s) PO BID 07/05/2018 09/02/2018 Inactive oxymorphone 5 mg tablet RxNorm: 691021 1 Tablet(s) PO Q6 PRN 07/05/2018 09/02/2018 Inactive Remeron 15 mg tablet RxNorm: 174957 TAKE ONE TABLET BY MOUTH EVERY NIGHT AT BEDTIME 06/27/2018 09/02/2018 Inactive bupropion HCl XL 300 mg 24 hr tablet, extended release RxNorm: 681221 TAKE ONE TABLET BY MOUTH DAILY 06/27/2018 07/17/2019 Inactive tizanidine 4 mg tablet RxNorm: 855740 TAKE ONE TABLET BY MOUTH THREE TIMES A D AY NEEDED 06/20/2018 08/18/2018 Inactive doxycycline hyclate 100 mg tablet RxNorm: 8786958 1 Tablet(s) PO BID 06/18/2018 07/01/2018 Inactive Protonix 40 mg table t,delayed release RxNorm: 320454 TAKE ONE TABLET BY MO [facility] DAILY 06/11/2018 07/23/2018 In active doxycycline hyclate 100 mg tablet RxNorm: 3996037 1 Tablet(s) PO BID 05/22/2018 06/04/2018 Inactive baclofen 10 mg tablet RxNorm: 791031 TAKE ONE TABLET BY MOUTH THREE TIMES A D AY NEEDED 05/14/2018 07/11/2018 Inactive diclofenac sodium 75 mg tablet,delayed release RxNorm: 240696 TAKE ONE TABLET BY MO UT TWICE A DAY 05/07/2018 10/03/2018 Inactive oxymorphone 5 mg tablet RxNorm: 625572 1 Tablet(s) PO Q6 PRN 05/04/2018 07/02/2018 Inactive morphine 30 mg table t, crush resistant, extended release RxNorm: 2785956 1 Tablet(s) PO BID 05/04/2018 07/02/2018 Inactive doxycycline hyclate 100 mg tablet RxNorm: 495791 1 Tablet(s) PO BID 04/24/2018 04/23/2018 Inactive doxycycline hyclate 100 mg tablet RxNorm: 3718871 1 Tablet(s) PO BID 04/24/2018 05/03/2018 Inactive baclofen 10 mg tablet RxNorm: 445200 TAKE ONE TABLET BY MOUTH THREE TIMES A D AY NEEDED 04/13/2018 05/12/2018 Inactive trazodone 50 mg tablet RxNorm: 568628 TAKE ONE TABLET BY MOUTH EVERY NIGHT AT BEDTIME AND ONE-HALF TABLET BY MOUTH NEEDED 04/09/2018 06/07/2018 Inactive Questran 4 gram powd er for susp in a packet RxNorm: 874163 1 packet PO BID 04/06/2018 06/04/2018 In active Questran 4 gram powd er for susp in a packet RxNorm: 308494 1 packet PO BID 04/06/2018 04/05/2018 In active Carafate 1 gram tablet RxNorm: 164813 1 Tablet(s) PO AC & HS as needed for hea rtburn 03/28/2018 04/26/2018 Inactive baclofen 10 mg tablet RxNorm: 032562 TAKE ONE TABLET BY MOUTH THREE TIMES A D AY NEEDED 03/16/2018 04/12/2018 Inactive Protonix 40 mg table t,delayed release RxNorm: 372117 TAKE ONE TABLET BY MO NE[facility] DAILY 03/16/2018 06/10/2018 In active oxymorphone 5 mg tablet RxNorm: 062415 1 Tablet(s) PO Q6 PRN 02/27/2018 04/27/2018 Inactive morphine 30 mg table t, crush resistant, extended release RxNorm: 3700205 1 Tablet(s) PO BID 02/27/2018 04/27/2018 Inactive Belviq XR 20 mg tabl et,extended release RxNorm: 5860969 1 Tablet(s) PO daily 02/27/2018 01/06/2019 In active levothyroxine 100 mc g tablet RxNorm: 579343 1 Tablet(s) PO daily 02/27/2018 07/10/2018 Inactive take with 88mcg to = 188mcg daily levothyroxine 88 mcg tablet RxNorm: 524258 1 Tablet(s) PO daily 02/27/2018 07/10/2018 Inactive take with 100mcg to = 188mcg daily morphine 30 mg table t, crush resistant, extended release RxNorm: 4603113 1 Tablet(s) PO BID 02/14/2018 02/26/2018 Inactive levothyroxine 200 mc g tablet RxNorm: 464309 Tablet(s) TAKE ONE TA BLET BY MOUTH DAILY 01/18/2018 02/26/2018 Inactive Updated script baclofen 10 mg tablet RxNorm: 397612 Tablet(s) TAKE ONE TABLET BY MOUTH THREE TIMES A DAY NEEDED 01/15/2018 02/13/2018 Inactive morphine 30 mg table t, crush resistant, extended release RxNorm: 2827707 1 Tablet(s) PO BID 01/15/2018 02/13/2018 Inactive tizanidine 4 mg tablet RxNorm: 639124 TAKE ONE TABLET BY MOUTH THREE TIMES A D AY NEEDED 01/02/2018 04/01/2018 Inactive Request already responded t o by other means (e.g. phone or fax) bupropion HCl XL 300 mg 24 hr tablet, extended release RxNorm: 149480 TAKE ONE TABLET BY MOUTH DAILY 12/29/2017 06/26/2018 Inactive Tamiflu 75 mg capsule RxNorm: 007405 1 Capsule(s) PO BID 12/27/2017 12/31/2017 Inactive Tamiflu 75 mg capsule RxNorm: 802281 1 Capsule(s) PO BID 12/27/2017 12/26/2017 Inactive tizanidine 4 mg tablet RxNorm: 984960 1 Tablet(s) PO TID as needed 12/25/2017 01/01/2018 Inactive levothyroxine 175 mc g tablet RxNorm: 160751 1 Tablet(s) PO daily 12/14/2017 12/13/2017 Inactive levothyroxine 175 mc g tablet RxNorm: 752365 1 Tablet(s) PO daily 12/14/2017 01/17/2018 Inactive baclofen 10 mg tablet RxNorm: 314784 Tablet(s) TAKE ONE TABLET BY MOUTH THREE TIMES A DAY NEEDED 12/13/2017 01/11/2018 Inactive baclofen 10 mg tablet RxNorm: 599928 TAKE ONE TABLET BY MOUTH THREE TIMES A D AY NEEDED 12/13/2017 12/12/2017 Inactive morphine 30 mg table t, crush resistant, extended release RxNorm: 6994408 1 Tablet(s) PO BID 12/12/2017 01/14/2018 Inactive trazodone 50 mg tablet RxNorm: 957094 1/2 to 1 Tablet(s) QHS as needed 12/01/2017 03/30/2018 In active clonazepam 1 mg tablet RxNorm: 015502 1/2 Tablet(s) PO daily 12/01/2017 07/17/2019 Inactive Opana ER 15 mg table t, crush resistant, extended release RxNorm: 420164 1 Tablet(s) PO Q12H 12/01/2017 02/13/2018 Inactive oxymorphone 5 mg tablet RxNorm: 072135 1 Tablet(s) PO Q6 PRN 12/01/2017 02/26/2018 Inactive Remeron 15 mg tablet RxNorm: 811293 Tablet(s) TAKE ONE TABLET BY MOUTH EVERY NIGHT AT BEDTIME 12/01/2017 02/28/2018 Inactive trazodone 50 mg tablet RxNorm: 464639 1/2 Tablet(s) as needed 1 Tablet(s) PO Q HS 12/01/2017 11/30/2017 In active clonazepam 1 mg tablet RxNorm: 614862 1/2 Tablet(s) PO daily 11/30/2017 11/30/2017 Inactive Remeron 15 mg tablet RxNorm: 961189 TAKE ONE TABLET BY MOUTH EVERY NIGHT AT BEDTIME 11/29/2017 11/30/2017 Inactive levothyroxine 200 mc g tablet RxNorm: 553263 TAKE ONE TABLET BY MO UTH DAILY 11/15/2017 12/13/2017 In active baclofen 10 mg tablet RxNorm: 177183 TAKE ONE TABLET BY MOUTH THREE TIMES A D AY NEEDED 11/07/2017 12/06/2017 Inactive diclofenac sodium 75 mg tablet,delayed release RxNorm: 500666 1 Tablet(s) PO BID 11/07/2017 05/05/2018 In active liothyronine 5 mcg t ablet RxNorm: 617600 TAKE ONE TABLET BY [facility] DAILY 10/27/2017 07/18/2018 In active tizanidine 4 mg tablet RxNorm: 857299 1 Tablet(s) PO TID as needed 10/18/2017 12/16/2017 Inactive oxymorphone 5 mg tablet RxNorm: 867387 1 Tablet(s) PO Q6 PRN 09/29/2017 11/27/2017 Inactive morphine 30 mg table t, crush resistant, extended release RxNorm: 0724652 1 Tablet(s) PO BID 09/29/2017 11/28/2017 Inactive baclofen 10 mg tablet RxNorm: 375059 1 Tablet(s) PO TID as needed 09/11/2017 10/10/2017 Inactive baclofen 10 mg tablet RxNorm: 335272 1 Tablet(s) PO TID as needed 08/11/2017 09/09/2017 Inactive Opana ER 15 mg table t, crush resistant, extended release RxNorm: 605348 1 Tablet(s) PO Q12H 08/11/2017 09/28/2017 Inactive Remeron 15 mg tablet RxNorm: 496490 TAKE ONE TABLET BY MOUTH EVERY NIGHT AT BEDTIME 08/02/2017 10/30/2017 Inactive oxymorphone 5 mg tablet RxNorm: 303003 1 Tablet(s) PO Q6 PRN 08/02/2017 09/28/2017 Inactive Opana ER 5 mg tablet , crush resistant, extended release RxNorm: 512917 1 Tablet(s) PO Q6 PRN 08/01/2017 08/10/2017 Inactive Protonix 40 mg table t,delayed release RxNorm: 622281 TAKE ONE TABLET BY [facility] DAILY 06/26/2017 06/25/2017 In active Protonix 40 mg table t,delayed release RxNorm: 577572 TAKE ONE TABLET BY [facility] DAILY 06/26/2017 02/05/2019 In active bupropion HCl XL 300 mg 24 hr tablet, extended release RxNorm: 491234 TAKE ONE TABLET BY MOUTH DAILY 06/13/2017 12/09/2017 Inactive tizanidine 4 mg tablet RxNorm: 696507 1 Tablet(s) PO TID as needed 06/13/2017 06/12/2017 Inactive tizanidine 4 mg tablet RxNorm: 459317 1 Tablet(s) PO TID as needed 06/13/2017 09/10/2017 Inactive baclofen 10 mg tablet RxNorm: 890345 1 Tablet(s) PO TID as needed 06/13/2017 07/12/2017 Inactive Opana ER 15 mg table t, crush resistant, extended release RxNorm: 498303 1 Tablet(s) PO Q12H 06/09/2017 08/07/2017 Inactive Opana ER 5 mg tablet , crush resistant, extended release RxNorm: 414666 1 Tablet(s) PO Q6 PRN 06/09/2017 07/31/2017 Inactive diclofenac sodium 75 mg tablet,delayed release RxNorm: 749028 1 Tablet(s) PO BID 06/09/2017 09/06/2017 In active clonazepam 1 mg tablet RxNorm: 889035 1/2 Tablet(s) PO daily 05/24/2017 11/18/2017 Inactive bupropion HCl XL 300 mg 24 hr tablet, extended release RxNorm: 269052 TAKE ONE TABLET BY MOUTH DAILY 03/16/2017 06/12/2017 Inactive clonazepam 1 mg tablet RxNorm: 024193 1/2 Tablet(s) PO daily 02/22/2017 05/18/2017 Inactive Remeron 15 mg tablet RxNorm: 782317 TAKE ONE TABLET BY MOUTH EVERY NIGHT AT BEDTIME 02/06/2017 2017 Inactive Protonix 40 mg table t,delayed release RxNorm: 778399 TAKE ONE TABLET BY MO [facility] DAILY 01/26/2017 06/24/2017 In active mupirocin 2 % topica l ointment RxNorm: 015584 1 Application TOP BID 01/12/2017 01/18/2017 Inactive Bactrim DS 800 mg-16 0 mg tablet RxNorm: 290477 1 Tablet(s) PO BID 11/17/2016 11/23/2016 Inactive mupirocin 2 % topica l ointment RxNorm: 902860 1 Application TOP BID 11/10/2016 11/16/2016 Inactive Bactrim DS 800 mg-16 0 mg tablet RxNorm: 816743 1 Tablet(s) PO BID 11/10/2016 11/16/2016 Inactive bupropion HCl XL 300 mg 24 hr tablet, extended release RxNorm: 388709 TAKE ONE TABLET BY MOUTH DAILY 11/07/2016 03/06/2017 Inactive liothyronine 5 mcg t ablet RxNorm: 324568 1 Tablet(s) PO daily 11/01/2016 10/26/2017 Inactive levothyroxine 200 mc g tablet RxNorm: 064468 1 Tablet(s) PO daily 10/04/2016 09/28/2017 Inactive clonazepam 1 mg tablet RxNorm: 428151 1/2 Tablet(s) PO daily 09/21/2016 03/18/2017 Inactive clonazepam 1 mg tablet RxNorm: 820121 1/2 Tablet(s) PO daily 09/16/2016 09/20/2016 Inactive Abilify 2 mg tablet RxNorm: 180200 1 Tablet(s) PO daily 09/16/2016 10/13/2016 Inactive trazodone 50 mg tablet RxNorm: 636693 1/2 Tablet(s) as needed 1 Tablet(s) PO Q HS 09/16/2016 01/13/2017 In active morphine 15 mg immed iate release tablet RxNorm: 492138 1 Tablet(s) PO Q6 PRN 09/16/2016 04/06/2017 In active baclofen 10 mg tablet RxNorm: 545797 1 Tablet(s) PO TID as needed 09/16/2016 06/12/2017 Inactive MS Contin 30 mg tabl et,extended release RxNorm: 657459 1 Tablet(s) PO Q12H 09/16/2016 04/06/2017 In active Remeron 15 mg tablet RxNorm: 030746 1 Tablet(s) PO QHS 08/19/2016 09/15/2016 Inactive levothyroxine 200 mc g tablet RxNorm: 137847 1 Tablet(s) PO daily 08/11/2016 10/03/2016 Inactive bupropion HCl XL 300 mg 24 hr tablet, extended release RxNorm: 784181 TAKE ONE TABLET BY MOUTH DAILY 08/11/2016 11/06/2016 Inactive Protonix 40 mg table t,delayed release RxNorm: 430860 1 Tablet(s) PO daily 06/17/2016 12/13/2016 In active bupropion HCl XL 300 mg 24 hr tablet, extended release RxNorm: 679505 1 Tablet(s) PO daily 05/12/2016 07/10/2016 Inactive bupropion HCl XL 300 mg 24 hr tablet, extended release RxNorm: 380719 1 Tablet(s) PO daily 05/12/2016 05/11/2016 Inactive Cialis 20 mg tablet RxNorm: 399919 1 Tablet(s) PO PRN 02/16/2016 No Stop Date Active not more than 1 tab in 24 hours morphine ER 10 mg ca psule,extended release pellets RxNorm: 503098 1 Tablet(s) PO Q6 as needed 02/16/2016 11/16/2016 Inactive clonazepam 1 mg tablet RxNorm: 093984 1/2 Tablet(s) PO BID 02/16/2016 09/15/2016 Inactive trazodone 50 mg tablet RxNorm: 080644 1/2 Tablet(s) as needed 1 Tablet(s) PO Q HS 02/16/2016 08/18/2016 In active trazodone 50 mg tablet RxNorm: 679828 1/2 Tablet(s) 1 Tablet(s) PO QHS 11/17/2015 02/15/2016 In active trazodone 50 mg tablet RxNorm: 348307 1 Tablet(s) PO QHS 10/19/2015 11/16/2015 Inactive levothyroxine 200 mc g tablet RxNorm: 313775 1 Tablet(s) PO daily 10/02/2015 08/10/2016 Inactive Wellbutrin XL 150 mg 24 hr tablet, extended release RxNorm: 492587 1 Tablet(s) PO daily 10/02/2015 05/11/2016 Inactive levothyroxine 200 mc g tablet RxNorm: 226169 1 Tablet(s) PO daily 09/30/2015 10/01/2015 Inactive Wellbutrin XL 150 mg 24 hr tablet, extended release RxNorm: 534287 1 Tablet(s) PO daily 09/30/2015 10/01/2015 Inactive trazodone 50 mg tablet RxNorm: 815222 1 Tablet(s) PO QHS 09/11/2015 10/10/2015 Inactive trazodone 50 mg tablet RxNorm: 210552 1 Tablet(s) PO QHS 09/11/2015 09/10/2015 Inactive Cymbalta 30 mg capsu le,delayed release RxNorm: 647217 1 Capsule(s) PO daily 09/07/2015 11/16/2015 In active Cymbalta 60 mg capsu le,delayed release RxNorm: 929908 1 Capsule(s) PO daily 08/31/2015 08/30/2015 In active Cymbalta 30 mg capsu le,delayed release RxNorm: 680371 1 Capsule(s) PO daily take with 60mg to make 90 mg daily 08/31/2015 09/06/2015 Inactive Cymbalta 30 mg capsu le,delayed release RxNorm: 477077 1 Capsule(s) PO daily take with 60mg to make 90 mg daily 08/31/2015 08/30/2015 Inactive Cymbalta 60 mg capsu le,delayed release RxNorm: 053648 1 Capsule(s) PO daily x 7 days and then increase to 90mg daily 08/31/2015 09/07/2015 Inactive levothyroxine 200 mc g tablet RxNorm: 303020 1 Tablet(s) PO daily 08/14/2015 09/29/2015 Inactive Wellbutrin XL 150 mg 24 hr tablet, extended release RxNorm: 363232 1 Tablet(s) PO daily 07/14/2015 09/29/2015 Inactive Cialis 20 mg tablet RxNorm: 326995 1 Tablet(s) PO PRN 07/02/2015 02/15/2016 Inactive not more than 1 tab in 24 hours liothyronine 5 mcg t ablet RxNorm: 431436 1 Tablet(s) PO daily 2015 05/29/2016 Inactive clonazepam 1 mg tablet RxNorm: 685931 1 Tablet(s) PO TID 2015 02/15/2016 Inactive minocycline 50 mg ta blet RxNorm: 330075 1 Tablet(s) PO daily 2015 05/11/2016 Inactive Wellbutrin XL 150 mg 24 hr tablet, extended release RxNorm: 517279 1 Tablet(s) PO daily 04/23/2015 07/13/2015 Inactive levothyroxine 200 mc g tablet RxNorm: 440855 1 Tablet(s) PO daily 04/23/2015 08/13/2015 Inactive Aleve oral RxNorm: 570651 oral No Start Date Active Tylenol 500 mg RxNorm: oral No Start Date Active morphine ER 15 mg ta blet,extended release RxNorm: 481575 oral No Start Date 11/16/2016 Inactive Trazadone 25 mg RxNorm: 2 PO daily No Start Date 09/11/2015 Inactive diclofenac oral RxNorm: 3355 oral No Start Date 05/04/2018 Inactive clonazepam 1 mg tablet RxNorm: 163843 1 Tablet(s) PO QHS No Start Date 06/04/2015 Inactive Wellbutrin XL 150 mg 24 hr tablet, extended release RxNorm: 852939 1 Tablet(s) PO daily No Start Date 04/22/2015 Inactive minocycline 50 mg ta blet RxNorm: 885906 1 Tablet(s) PO daily No Start Date 06/04/2015 Inactive methadone 5 mg tablet RxNorm: 524381 1 Tablet(s) PO Q8 No Start Date 02/15/2016 Inactive Protonix 40 mg table t,delayed release RxNorm: 739880 Tablet(s) PO daily No Start Date 06/16/2016 Inactive Opana ER 15 mg table t, crush resistant, extended release RxNorm: 985979 1 Tablet(s) PO Q12H No Start Date 06/08/2017 Inactive MS Contin 30 mg tabl et,extended release RxNorm: 211529 1 Tablet(s) PO Q12H No Start Date 02/15/2016 Inactive Opana ER 15 mg table t, crush resistant, extended release RxNorm: 512841 1 Tablet(s) PO BID No Start Date 09/15/2016 Inactive liothyronine 5 mcg t ablet RxNorm: 980949 1 Tablet(s) PO daily No Start Date 06/04/2015 Inactive Cialis 20 mg tablet RxNorm: 541146 1 Tablet(s) PO PRN No Start Date 07/01/2015 Inactive not more than 1 tab in 24 hours baclofen 10 mg tablet RxNorm: 663784 1 Tablet(s) PO TID as needed No Start Date 05/11/2016 Inactive morphine 15 mg immed iate release tablet RxNorm: 745495 1 Tablet(s) PO Q6 PRN as needed No Start Date 02/15/2016 Inactive levothyroxine 200 mc g tablet RxNorm: 398287 1 Tablet(s) PO daily No Start Date 04/22/2015 Inactive Opana ER 5 mg tablet , crush resistant, extended release RxNorm: 642519 1 Tablet(s) PO Q6 No Start Date 06/08/2017 Inactive Medication Administered Medication Codes Instruc tions Start Date Status cyanocobalamin (vit B-12) 1,000 mcg/mL injection solut ion RxNorm: 378020 1Milliliter 12/27/2018 No longer Active Immunizations No [...] 29.4 pg 01/07/2019 Cbc With Differential Ord2 Daniels% 10.9 % 01/07/2019 Cbc With Differential Ord2 [...] 1.77 K/ul 01/07/2019 Cbc With Differential Ord2 Daniels ABS# 0.5 K/ul 01/07/2019 Cbc With Differential Ord2 Eos ABS# 0.1 K/ul 01/07/2019 Cbc With Differential Ord2 Baso ABS# 0.0 K/ul 01/07/2019 Free T4 [id number] FREE T4 2.05 ng/dL 01/07/2019 Lipid Ord30 CHOL 189 mg/dL 01/07/2019 Lipid Ord30 HDL 58.0 mg/dl 01/07/2019 Lipid Ord30 TRIG 155 mg/dL 01/07/2019 Lipid Ord30 LDL 100 mg/dL 01/07/2019 Lipid Ord30 C/HDL 3.3 Ratio 01/07/2019 Comp Metabolic Zbt245 NA 137 mEq/L 01/07/2019 Comp Metabolic Spt461 K 4.2 mEq/L 01/07/2019 Comp Metabolic Nxd758 CL 104 mEq/L 01/07/2019 Comp Metabolic Jtm077 CO2 26.0 mEq/L 01/07/2019 Comp Metabolic Nkn114 AN ION GAP 11 01/07/2019 Comp Metabolic Nxy890 GL UCOSE 64 mg/dL 01/07/2019 Comp Metabolic Dql542 Cr eat 0.8 mg/dL 01/07/2019 Comp Metabolic Upt211 eG FR 110 ml/min/1.73m2 12/28 Comp Metabolic Tvq975 BUN 7 mg/dL 01/07/2019 Comp Metabolic Tvg907 B/ C Ratio 9.0 Ratio 01/07/2019 Comp Metabolic Pis539 CA LCIUM 9.7 mg/dL 01/07/2019 Comp Metabolic Wmo997 AL K PHOS 64 U/L 01/07/2019 Comp Metabolic Iao248 T(SGOT) 32 U/L 01/07/2019 Comp Metabolic Upz511 AL T(SGPT) 44 U/L 01/07/2019 Comp Metabolic Yse578 BI LI T 0.3 mg/dL 01/07/2019 Comp Metabolic Dvi977 AL BUMIN 4.3 g/dL 01/07/2019 Comp Metabolic Xvc363 TP RO 6.5 g/dL 01/07/2019 Comp Metabolic Qfo888 GL OB 2.2 g/dL 01/07/2019 Comp Metabolic Zqi775 A/ G Ratio 2.0 Ratio 01/07/2019 Comp Metabolic Djd257 Os mo 270 mOsmo 01/07/2019 Free T4 Aan528 FREE T4 1.54 ng/dL 11/05/2018 Vitamin D 25 Oh Yln5394 VITAMIN D, 25 HYDROXY 40.65 ng/mL 11/05/2018 Tsh Ord6 TSH (3rd IS) 0.02 uIU/mL 11/05/2018 Vitamin D 25 Oh Mpy3995 VITAMIN D, 25 HYDROXY 30.96 ng/mL 07/06/2018 Comp Metabolic Fim489 NA 141 mEq/L 07/06/2018 Comp Metabolic Rvx813 K 4.2 mEq/L 07/06/2018 Comp Metabolic Bog639 CL 103 mEq/L 07/06/2018 Comp Metabolic Zgy240 CO2 29.0 mEq/L 07/06/2018 Comp Metabolic Kmj576 AN ION GAP 13 07/06/2018 Comp Metabolic Uxh862 GL UCOSE 105 mg/dL 07/06/2018 Comp Metabolic Duc143 Cr eat 0.8 mg/dL 07/06/2018 Comp Metabolic Pgl459 eG FR 101 ml/min/1.73m2 06/27 Comp Metabolic Jox419 BUN 7 mg/dL 07/06/2018 Comp Metabolic Jlx682 B/ C Ratio 8.3 Ratio 07/06/2018 Comp Metabolic Byh885 CA LCIUM 9.9 mg/dL 07/06/2018 Comp Metabolic Nyp095 AL K PHOS 65 U/L 07/06/2018 Comp Metabolic Rgd745 T(SGOT) 21 U/L 07/06/2018 Comp Metabolic Plh436 AL T(SGPT) 31 U/L 07/06/2018 Comp Metabolic Wpl365 BI LI T 0.3 mg/dL 07/06/2018 Comp Metabolic Dda956 AL BUMIN 4.3 g/dL 07/06/2018 Comp Metabolic Xum257 TP RO 6.4 g/dL 07/06/2018 Comp Metabolic Pfg041 GL OB 2.1 g/dL 07/06/2018 Comp Metabolic Lgi289 A/ G Ratio 2.0 Ratio 07/06/2018 Comp Metabolic Bvi960 Os mo 280 mOsmo 07/06/2018 Cbc With [...] 29.3 pg 07/06/2018 Cbc With Differential Ord2 Daniels% 10.5 % 07/06/2018 Cbc With Differential Ord2 [...] 1.89 K/ul 07/06/2018 Cbc With Differential Ord2 Daniels ABS# 0.5 K/ul 07/06/2018 Cbc With Differential Ord2 Eos ABS# 0.3 K/ul 07/06/2018 Cbc With Differential Ord2 Baso ABS# 0.0 K/ul 07/06/2018 Total Psa Ord10 PSA 0.34 ng/mL 07/06/2018 Tsh Ord6 TSH (3rd IS) 0.02 uIU/mL 07/06/2018 Testosterone Laq740 Testo 400.6 ng/dL 07/06/2018 Free T4 Skf127 FREE T4 1.48 ng/dL 07/06/2018 [place] Spotted Fever Igg/Igm 89413 3 PARTHA [place] SPOTTED FEVER IGM EIA . 04/04/2018 [place] Spotted Fever Igg/Igm 40168 3 RMSF, IGM 0.24 index 04/04/2018 [place] Spotted Fever Igg/Igm 61203 3 PARTHA MT SPOTTED FEVER IGG EIA FLEX . 04/04/2018 [place] Spotted Fever Igg/Igm 85900 3 RMSF, IGG SCREEN-FLEX Equivocal 04/04/2018 Partha Mtn Spot'D Fev Igg 073109 RMSF, IGG- TITER IFA <1:64 04/04/2018 Ehrlichia Chaffeensis Antibody Igg [id number] EHRLICHIA CHAFFEENSIS IGG <1:64 04/02/2018 Ehrlichia Chaffeensis Antibody Igm 957802 EHRLICHIA CHAFFEENSIS IGM < 1:16 04/02/2018 Lymes Disease Total Antibodies With Western Blot Refle x [id number] B. BURGDORFERI, IGG/IGM 0.23 03/30/2018 Lymes Disease Total Antibodies With Western Blot Refle x [id number] 03/30/2018 Cbc With Differential Ord2 WBC 5.04 [...] 28.7 pg 03/28/2018 Cbc With Differential Ord2 Daniels% 16.1 % 03/28/2018 Cbc With Differential Ord2 [...] 1.37 K/ul 03/28/2018 Cbc With Differential Ord2 Daniels ABS# 0.8 K/ul 03/28/2018 Cbc With Differential Ord2 Eos ABS# 0.1 K/ul 03/28/2018 Cbc With Differential Ord2 Baso ABS# 0.0 K/ul 03/28/2018 Comp Metabolic Mat162 NA 136 mEq/L 02/16/2018 Comp Metabolic Kkh799 K 3.9 mEq/L 02/16/2018 Comp Metabolic Zyn558 CL 103 mEq/L 02/16/2018 Comp Metabolic Zjt297 CO2 23.0 mEq/L 02/16/2018 Comp Metabolic Ldl616 AN ION GAP 14 02/16/2018 Comp Metabolic Kfn594 GL UCOSE 133 mg/dL 02/16/2018 Comp Metabolic Cds298 Cr eat 0.8 mg/dL 02/16/2018 Comp Metabolic Yiu068 eG FR 103 ml/min/1.73m2 01/26 Comp Metabolic Naj849 BUN 7 mg/dL 02/16/2018 Comp Metabolic Cdp962 B/ C Ratio 8.4 Ratio 02/16/2018 Comp Metabolic Ahr477 CA LCIUM 9.3 mg/dL 02/16/2018 Comp Metabolic Uim857 AL K PHOS 71 U/L 02/16/2018 Comp Metabolic Ixj963 T(SGOT) 42 U/L 02/16/2018 Comp Metabolic Wig439 AL T(SGPT) 69 U/L 02/16/2018 Comp Metabolic Sor948 BI LI T 0.3 mg/dL 02/16/2018 Comp Metabolic Yfo944 AL BUMIN 4.1 g/dL 02/16/2018 Comp Metabolic Sfc306 TP RO 6.3 g/dL 02/16/2018 Comp Metabolic Atl590 GL OB 2.2 g/dL 02/16/2018 Comp Metabolic Oqw063 A/ G Ratio 1.8 Ratio 02/16/2018 Comp Metabolic Qae880 Os mo 272 mOsmo 02/16/2018 Free T4 Lze528 FREE T4 1.85 ng/dL 02/16/2018 Ferritin Ord22 FERRITIN 161.7 ng/mL 02/16/2018 Tsh Ord6 TSH (3rd IS) 0.01 uIU/mL 02/16/2018 Test(s) Not Perfromed [id number] Test(s) Not Performed Test(s) Not Performed. See Below: 02/16/2018 Test(s) Not Perfromed [id number] TEST NAME CBC 02/16/2018 Test(s) Not Perfromed [id number] Rejection Reason No Suitable Specimen Receive d 02/16/2018 Test(s) Not Perfromed [id number] COMMENT Please Recollect Sample 02/16/2018 Test(s) Not Perfromed [id number] [employer] Fernando Goyal 02/16/2018 Tibc Ord40 Iron 138 [...] 26.4 pg 01/05/2018 Cbc With Differential Ord2 Daniels% 11.9 % 01/05/2018 Cbc With Differential Ord2 [...] 2.08 K/ul 01/05/2018 Cbc With Differential Ord2 Daniels ABS# 0.6 K/ul 01/05/2018 Cbc With Differential Ord2 Eos ABS# 0.2 K/ul 01/05/2018 Cbc With Differential Ord2 Baso ABS# 0.0 K/ul 01/05/2018 Ferritin Ord22 FERRITIN 5.7 ng/mL 12/06/2017 Tibc Ord40 Iron 33 ug/dl 12/06/2017 Tibc Ord40 UIBC 431 ug/dL 12/06/2017 Tibc Ord40 TIBC 464 ug/dL 12/06/2017 Tibc Ord40 Fe-%Sat 7.1 % 12/06/2017 Free T4 Nob409 FREE T4 1.82 ng/dL 12/01/2017 Tsh Ord6 [...] 27.0 pg 12/01/2017 Cbc With Differential Ord2 Daniels% 10.6 % 12/01/2017 Cbc With Differential Ord2 [...] 1.92 K/ul 12/01/2017 Cbc With Differential Ord2 Daniels ABS# 0.4 K/ul 12/01/2017 Cbc With Differential Ord2 Eos ABS# 0.2 K/ul 12/01/2017 Cbc With Differential Ord2 Baso ABS# 0.0 K/ul 12/01/2017 Comp Metabolic Tez963 NA 136 mEq/L 12/01/2017 Comp Metabolic Zxv995 K 4.6 mEq/L 12/01/2017 Comp Metabolic Bmk650 CL 102 mEq/L 12/01/2017 Comp Metabolic Agr419 CO2 27.0 mEq/L 12/01/2017 Comp Metabolic Mgs685 AN ION GAP 12 12/01/2017 Comp Metabolic Hor771 GL UCOSE 90 mg/dL 12/01/2017 Comp Metabolic Oed111 Cr eat 0.7 mg/dL 12/01/2017 Comp Metabolic Nqv044 eG FR 123 ml/min/1.73m2 03/2018 Comp Metabolic Vfu339 BUN 4 mg/dL 12/01/2017 Comp Metabolic Yjf603 B/ C Ratio 5.6 Ratio 12/01/2017 Comp Metabolic Iuk125 CA LCIUM 9.0 mg/dL 12/01/2017 Comp Metabolic Kqz230 AL K PHOS 67 U/L 12/01/2017 Comp Metabolic Ara483 T(SGOT) 30 U/L 12/01/2017 Comp Metabolic Yrq251 AL T(SGPT) 29 U/L 12/01/2017 Comp Metabolic Opq291 BI LI T 0.3 mg/dL 12/01/2017 Comp Metabolic Spf586 AL BUMIN 4.1 g/dL 12/01/2017 Comp Metabolic Zrs989 TP RO 6.1 g/dL 12/01/2017 Comp Metabolic Iod775 GL OB 2.0 g/dL 12/01/2017 Comp Metabolic Ygm468 A/ G Ratio 2.0 Ratio 12/01/2017 Comp Metabolic Zgv713 Os mo 268 mOsmo 12/01/2017 Comp Metabolic Och108 NA 136 mEq/L 02/16/2016 Comp Metabolic Pqb220 K 4.2 mEq/L 02/16/2016 Comp Metabolic Ghu691 CL 104 mEq/L 02/16/2016 Comp Metabolic Foe417 CO2 20.0 mEq/L 02/16/2016 Comp Metabolic Wlc400 AN ION GAP 16 02/16/2016 Comp Metabolic Eam388 GL UCOSE 71 mg/dL 02/16/2016 Comp Metabolic Ebg914 Cr eat 0.8 mg/dL 02/16/2016 Comp Metabolic Dzu682 eG FR 113 ml/min/1.73m2 01/26 Comp Metabolic Zav181 BUN 7 mg/dL 02/16/2016 Comp Metabolic Imw243 B/ C Ratio 9.1 Ratio 02/16/2016 Comp Metabolic Znk156 CA LCIUM 9.4 mg/dL 02/16/2016 Comp Metabolic Mux993 AL K PHOS 57 U/L 02/16/2016 Comp Metabolic Zsr275 T(SGOT) 30 U/L 02/16/2016 Comp Metabolic Gyx133 AL T(SGPT) 27 U/L 02/16/2016 Comp Metabolic Ghg968 BI LI T 0.2 mg/dL 02/16/2016 Comp Metabolic Jez225 AL BUMIN 4.4 g/dL 02/16/2016 Comp Metabolic Snt982 TP RO 6.5 g/dL 02/16/2016 Comp Metabolic Dga342 GL OB 2.1 g/dL 02/16/2016 Comp Metabolic Xdy059 A/ G Ratio 2.1 Ratio 02/16/2016 Comp Metabolic Thm347 Os mo 268 mOsmo 02/16/2016 Free T4 Ojv177 FREE T4 1.20 ng/dL 02/16/2016 Cbc With [...] 30.2 pg 02/16/2016 Cbc With Differential Ord2 Daniels% 9.6 % 02/16/2016 Cbc With Differential Ord2 [...] 1.50 K/ul 02/16/2016 Cbc With Differential Ord2 Daniels ABS# 0.5 K/ul 02/16/2016 Cbc With Differential [...] Procedure Codes Date THER/PROPH/DIAG INJ SC/IM CPT-4: 61840 12/27/2018 VITAMIN B12 INJECTION CPT-4: J3420 12/27/2018 PPPS, SUBSEQ VISIT CPT- 4: G0439 09/17/2018 Vital Signs Date Vital 07/18/2019 Blood Pressure 1: 86/52 Code: 8480-6 BMI: 35.5 Code: 08314-1 Heart Rate 1: 65 bpm Height: 5'6" SpO2: 97% Weight: 220 lbs 05/14/2019 Blood Pressure 1: 120/70 Code: 8480-6 BMI: 36.2 Code: 40511-0 Heart Rate 1: 65 bpm Height: 5'6" SpO2: 98% Weight: 224 lbs 03/12/2019 Blood Pressure 1: 130/76 Code: 8480-6 BMI: 38.6 Code: 19551-4 Heart Rate 1: 83 bpm Height: 5'6" SpO2: 99% Weight: 239 lbs 01/07/2019 Blood Pressure 1: 124/80 Code: 8480-6 BMI: 38.3 Code: 49798-3 Heart Rate 1: 88 bpm Height: 5'6" SpO2: 97% Weight: 237 lbs 12/27/2018 Blood Pressure 1: 122/80 Code: 8480-6 BMI: 38.6 Code: 16224-7 Heart Rate 1: 72 bpm Height: 5'6" SpO2: 98% Weight: 239 lbs 11/05/2018 Blood Pressure 1: 122/64 Code: 8480-6 BMI: 37.4 Code: 68273-4 Heart Rate 1: 66 bpm Height: 5'6" SpO2: 97% Weight: 232 lbs 09/27/2018 Blood Pressure 1: 92/66 Code: 8480-6 BMI: 37.9 Code: 59513-8 Heart Rate 1: 66 bpm Height: 5'6" SpO2: 98% Weight: 235 lbs 09/17/2018 Blood Pressure 1: 110/72 Code: 8480-6 BMI: 38.3 Code: 37218-7 Heart Rate 1: 77 bpm Height: 5'6" SpO2: 95% Waist Measure (cm): 102 cm Weight: 237 lbs 09/03/2018 Blood Pressure 1: 122/68 Code: 8480-6 BMI: 37.6 Code: 06647-2 Heart Rate 1: 78 bpm Height: 5'6" SpO2: 97% Weight: 233 lbs 07/05/2018 Blood Pressure 1: 94/62 Code: 8480-6 BMI: 36.8 Code: 36237-6 Heart Rate 1: 88 bpm Height: 5'6" SpO2: 99% Weight: 228 lbs 05/04/2018 Blood Pressure 1: 110/80 Code: 8480-6 BMI: 35.5 Code: 41158-7 Heart Rate 1: 80 bpm Height: 5'6" SpO2: 99% Weight: 220 lbs 03/28/2018 Blood Pressure 1: 110/72 Code: 8480-6 BMI: 35.0 Code: 05008-6 Heart Rate 1: 80 bpm Height: 5'6" SpO2: 98% Temperature: 36.2 (C ) / 97.1 (F) Weight: 217 lbs 02/27/2018 Blood Pressure 1: 136/76 Code: 8480-6 BMI: 36.0 Code: 58102-2 Heart Rate 1: 80 bpm Height: 5'6" SpO2: 98% Weight: 223 lbs 12/01/2017 Blood Pressure 1: 132/72 Code: 8480-6 BMI: 33.4 Code: 23736-8 Heart Rate 1: 82 bpm Height: 5'6" SpO2: 97% Weight: 207 lbs 09/29/2017 Blood Pressure 1: 124/68 Code: 8480-6 BMI: 32.1 Code: 75460-7 Heart Rate 1: 77 bpm Height: 5'6" SpO2: 98% Weight: 199 lbs 08/11/2017 Blood Pressure 1: 154/82 Code: 8480-6 BMI: 31.6 Code: 42692-5 Heart Rate 1: 75 bpm Height: 5'6" SpO2: 98% Weight: 196 lbs 06/09/2017 Blood Pressure 1: 148/88 Code: 8480-6 BMI: 28.6 Code: 61856-0 Heart Rate 1: 88 bpm Height: 5'6" SpO2: 98% Weight: 177 lbs 04/07/2017 Blood Pressure 1: 140/84 Code: 8480-6 BMI: 30.3 Code: 69009-4 Heart Rate 1: 81 bpm Height: 5'6" SpO2: 99% Weight: 188 lbs 11/17/2016 Blood Pressure 1: 130/72 Code: 8480-6 Heart Rate 1: 63 bpm Height: SpO2: 93% Weight: 11/10/2016 Blood Pressure 1: 128/86 Code: 8480-6 BMI: 30.3 Code: 81983-6 Heart Rate 1: 84 bpm Height: 5'6" SpO2: 96% Weight: 188 lbs 10/14/2016 Heigh t: 5'6" 09/16/2016 Blood Pressure 1: 130/80 Code: 8480-6 BMI: 30.3 Code: 44718-6 Heart Rate 1: 67 bpm Height: 5'6" SpO2: 99% Weight: 188 lbs 08/19/2016 Blood Pressure 1: 110/62 Code: 8480-6 BMI: 29.9 Code: 27930-9 Heart Rate 1: 70 bpm Height: 5'6" SpO2: 97% Weight: 185 lbs 06/17/2016 Blood Pressure 1: 112/68 Code: 8480-6 BMI: 27.6 Code: 03362-2 Heart Rate 1: 61 bpm Height: 5'6" SpO2: 98% Weight: 171 lbs 05/12/2016 Blood Pressure 1: 130/76 Code: 8480-6 BMI: 29.7 Code: 99967-5 Heart Rate 1: 103 bpm Height: 5'6" SpO2: 98% Weight: 184 lbs 02/16/2016 Blood Pressure 1: 140/82 Code: 8480-6 BMI: 28.7 Code: 75691-3 Heart Rate 1: 66 bpm Height: 5'6" SpO2: 99% Weight: 178 lbs 11/17/2015 Blood Pressure 1: 120/74 Code: 8480-6 BMI: 29.4 Code: 07267-4 Heart Rate 1: 90 bpm Height: 5'6" SpO2: 94% Weight: 182 lbs 08/28/2015 Blood Pressure 1: 128/76 Code: 8480-6 BMI: 27.9 Code: 12566-6 Heart Rate 1: 80 bpm Height: 5'6" SpO2: 98% Weight: 173 lbs 05/28/2015 Blood Pressure 1: 122/70 Code: 8480-6 BMI: 27.0 Code: 02190-9 Heart Rate 1: 74 bpm Height: 5'6" SpO2: 98% Weight: 167 lbs 04/23/2015 Blood Pressure 1: 110/60 Code: 8480-6 BMI: 27.0 Code: 33997-5 Heart Rate 1: 68 bpm Height: 5'6" [...] and Resolution ongoing 09/03/2018 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 P ATIENT, LEVEL IV Diagnosis: Chronic pain syndrome[ICD10: G89.4] Diagnosis: Major depressive disorder, recurrent, moderate[ICD10: F33.1] Diagnosis: Hypothyroidism, unspecified[ICD10: E03.9] Leydi Jacobo MD, [facility] CPT-4: 69735 07/18/2019 [id number]) 73388 EST. P ATIENT, LEVEL III Diagnosis: Chronic pain syndrome[ICD10: G89.4] Diagnosis: Hypothyroidism, unspecified[ICD10: E03.9] Leydi Jacobo MD, [facility] CPT-4: 70596 05/14/2019 [id number]) 29388 EST. P ATIENT, LEVEL III Diagnosis: Hypothyroidism, unspecified[ICD10: E03.9] Diagnosis: Chronic pain syndrome[ICD10: G89.4] Leydi Jacobo MD, [facility] CPT-4: 46852 03/12/2019 [id number]) 57133 EST. P ATIENT, LEVEL IV Diagnosis: Chronic pain syndrome[ICD10: G89.4] Diagnosis: Hypothyroidism, unspecified[ICD10: E03.9] Diagnosis: Encounter for screening for lipoid disorders[ICD10: Z13.220] Diagnosis: Major depressive disorder, recurrent, moderate[ICD10: F33.1] Leydi Jacobo MD, [facility] CPT-4: 12017 01/07/2019 ([id number]) 96325 EST. P ATIENT, LEVEL III Diagnosis: Obstructive sleep apnea (adult) (pediatric)[ICD10: G47.33] Diagnosis: Hypothyroidism, unspecified[ICD10: E03.9] Diagnosis: Vitamin B12 deficiency anemia, unspecified[ICD10: D51.9] Leydi Jacobo MD, [facility] CPT-4: 65354 12/27/2018 ([id number]) 92992 EST. P ATIENT, LEVEL IV Diagnosis: Hypothyroidism, unspecified[ICD10: E03.9] Diagnosis: Major depressive disorder, recurrent, moderate[ICD10: F33.1] Diagnosis: Chronic pain syndrome[ICD10: G89.4] Leydi Jacobo MD, [facility] CPT-4: 87276 11/05/2018 ([id number]) 82560 EST. P ATIENT, LEVEL IV Diagnosis: Chronic pain syndrome[ICD10: G89.4] Diagnosis: Hypothyroidism, unspecified[ICD10: E03.9] Diagnosis: Other fatigue[ICD10: R53.83] Diagnosis: Other obesity due to excess calories[ICD10: E66.09] Diagnosis: Major depressive disorder, recurrent, moderate[ICD10: F33.1] Leydi Jacobo MD, [facility] CPT-4: 37687 09/27/2018 ([id number]) 62347 EST. P ATIENT, LEVEL III Diagnosis: Chronic pain syndrome[ICD10: G89.4] Leydi Jacobo MD, [facility] CPT-4: 10742 09/03/2018 ([id number]) 78040 EST. P ATIENT, LEVEL IV Diagnosis: Hypothyroidism, unspecified[ICD10: E03.9] Diagnosis: Major depressive disorder, recurrent, moderate[ICD10: F33.1] Diagnosis: Chronic pain syndrome[ICD10: G89.4] Diagnosis: Other male erectile dysfunction[ICD10: N52.8] Diagnosis: Other fatigue[ICD10: R53.83] Diagnosis: Encounter for screening for malignant neoplasm of prostate[ICD10: Z12.5] Leydi Jacobo MD, [facility] CPT-4: 19778 07/05/2018 ([id number]) 53687 EST. P ATIENT, LEVEL IV Diagnosis: Chronic pain syndrome[ICD10: G89.4] Diagnosis: Hypothyroidism, unspecified[ICD10: E03.9] Diagnosis: Major depressive disorder, recurrent, moderate[ICD10: F33.1] Leydi Jacobo MD, [facility] CPT-4: 40066 05/04/2018 88576 EST. PATIENT, LEVEL IV Diagnosis: Melena[ICD10: K92.1] Diagnosis: Other malaise[ICD10: R53.81] Diagnosis: Other fatigue[ICD10: R53.83] Diagnosis: Pain in unspecified joint[ICD10: M25.50] Diagnosis: Diarrhea, unspecified[ICD10: R19.7] Denae Jacobo MD, [facility] CPT-4: 38012 03/28/2018 ([id number]) 49978 EST. P ATIENT, LEVEL IV Diagnosis: Chronic pain syndrome[ICD10: G89.4] Diagnosis: Hypothyroidism, unspecified[ICD10: E03.9] Diagnosis: Other obesity due to excess calories[ICD10: E66.09] Diagnosis: Major depressive disorder, recurrent, moderate[ICD10: F33.1] Diagnosis: Obstructive sleep apnea (adult) (pediatric)[ICD10: G47.33] Leydi Jacobo MD, [facility] CPT-4: 55281 02/27/2018 27757 EST. PATIENT, LEVEL IV Diagnosis: Other specified hypothyroidism[ICD10: E03.8] Diagnosis: Chronic pain syndrome[ICD10: G89.4] Diagnosis: Major depressive disorder, recurrent, moderate[ICD10: F33.1] Denae Jacobo MD, [facility] CPT-4: 62974 12/01/2017 ([id number]) 90351 EST. P ATIENT, LEVEL IV Diagnosis: Chronic pain syndrome[ICD10: G89.4] Diagnosis: Alcohol dependence, uncomplicated[ICD10: F10.20] Diagnosis: Major depressive disorder, recurrent, moderate[ICD10: F33.1] Leydi Jacobo MD, [facility] CPT-4: 09913 09/29/2017 ([id number]) 96835 EST. P ATIENT, LEVEL IV Diagnosis: Chronic pain syndrome[ICD10: G89.4] Diagnosis: Alcohol dependence, uncomplicated[ICD10: F10.20] Diagnosis: Major depressive disorder, recurrent, moderate[ICD10: F33.1] Leydi Jacobo MD, [facility] CPT-4: 40215 08/11/2017 ([id number]) 03991 EST. P ATIENT, LEVEL III Diagnosis: Chronic pain syndrome[ICD10: G89.4] Diagnosis: Major depressive disorder, recurrent, moderate[ICD10: F33.1] Leydi Jacobo MD, [facility] CPT-4: 65326 06/09/2017 ([id number]) 39930 EST. P ATIENT, LEVEL III Diagnosis: Chronic pain syndrome[ICD10: G89.4] Diagnosis: Pain in left knee[ICD10: M25.562] Leydi Jacobo MD, [facility] CPT- 4: 41639 04/07/2017 26440 EST. PATIENT, LEVEL II Diagnosis: Superficial foreign body of left upper arm, initial encounter[ICD10: S40.852A] Diagnosis: Cellulitis of left upper limb[ICD10: L03.114] Leydi Jacobo MD, [facility] CPT-4: 16711 11/17/2016 91408 EST. PATIENT, LEVEL II Diagnosis: Cellulitis of left upper limb[ICD10: L03.114] Leydi Jacobo MD, [facility] CPT-4: 29910 11/10/2016 ([id number]) 42949 EST. P ATIENT, LEVEL III Diagnosis: Chronic pain syndrome[ICD10: G89.4] Diagnosis: Major depressive disorder, recurrent, moderate[ICD10: F33.1] Leydi Jacobo MD, [facility] CPT-4: 45899 10/14/2016 62644 EST. PATIENT, LEVEL IV Diagnosis: Psychophysiologic insomnia[ICD10: F51.04] Diagnosis: Major depressive disorder, recurrent, moderate[ICD10: F33.1] Diagnosis: Alcohol dependence, uncomplicated[ICD10: F10.20] Diagnosis: Chronic pain syndrome[ICD10: G89.4] Leydi Jacobo MD, [facility] CPT-4: 21139 09/16/2016 ([id number]) 51524 EST. P ATIENT, LEVEL III Diagnosis: Pain in left shoulder[ICD10: M25.512] Diagnosis: Major depressive disorder, recurrent, moderate[ICD10: F33.1] Diagnosis: Psychophysiologic insomnia[ICD10: F51.04] Leydi Jacobo MD, [facility] CPT-4: 23034 08/19/2016 ([id number]) 05450 EST. P ATIENT, LEVEL III Diagnosis: Gastro-esophageal reflux disease without esophagitis[ICD10: K21.9] Diagnosis: Hypothyroidism, unspecified[ICD10: E03.9] Leydi Jacobo MD, [facility] CPT-4: 35505 06/17/2016 ([id number]) 63349 EST. P ATIENT, LEVEL IV Diagnosis: Gastro-esophageal reflux disease without esophagitis[ICD10: K21.9] Diagnosis: Hypothyroidism, unspecified[ICD10: E03.9] Diagnosis: Major depressive disorder, recurrent, moderate[ICD10: F33.1] Leydi Jacobo MD, [facility] CPT-4: 03364 05/12/2016 ([id number]) 32566 EST. P ATIENT, LEVEL III Diagnosis: Cervicalgia[ICD10: M54.2] Diagnosis: Hypothyroidism, unspecified[ICD10: E03.9] Diagnosis: Other male erectile dysfunction[ICD10: N52.8] Leydi Jacobo MD, [facility] CPT-4: 81416 02/16/2016 ([id number]) 52758 EST. P ATIENT, LEVEL III Diagnosis: Lumbago with sciatica, unspecified side[ICD10: M54.40] Diagnosis: Other male erectile dysfunction[ICD10: N52.8] Leydi Jacobo MD, [facility] CPT-4: 65203 11/17/2015 ([id number]) 79053 EST. P ATIENT, LEVEL III Diagnosis: Lumbago with sciatica, unspecified side[ICD10: M54.40] Diagnosis: Hypothyroidism, unspecified[ICD10: E03.9] Diagnosis: Other male erectile dysfunction[ICD10: N52.8] Leydi Jacobo MD, [facility] CPT-4: 13825 08/28/2015 ([id number]) 25816 EST. P ATIENT, LEVEL III Diagnosis: Back pain, chronic[ICD9: 724.5] Diagnosis: Depression[ICD9: 311] Diagnosis: Hypothyroid[ICD9: 244.9] Diagnosis: Bilateral calf pain[ICD9: 729.5] [facility] CPT-4: 55874 05/28/2015 ([id number]) OFFICE VISI T NEW - LEVEL 4 Diagnosis: Back pain, chronic[ICD9: 724.5] Diagnosis: Depression[ICD9: 311] Diagnosis: Hypothyroid[ICD9: 244.9] [facility] CPT-4: 44493 04/23/2015 Plan of Care Planned Activity Notes C odes Status Date Visit Plan: Chronic Pain Syndrome - pt has chronic pain - has been maintained on current medications, has not sought out other medications, only uses PRN pain medications as directed, and understands the consequences of over-medication. Hypothyroidism -managed by schedule announcer Depression -not well controlled -taking 1/2 tab [...] termination from this medical practice. Hypothyroidism- seeing schedule announcer 05/14/2019 Appointment: Leydi Hightower WPtel: [address] [place], [place] [phone] (30 min) Complex 05/14/2019 Patient Education: Patient Medication Summary Completed 05/14/2019 Visit Plan: Hypothyroidism -refer kaitlynn Yan at [facility] Chronic Pain Syndrome - pt has chronic pain - has been maintained on current medications, has not sought out other medications, only uses PRN pain medications as directed, and understands the consequences of over-medication. 03/12/2019 Appointment: Leydi Hightower WPtel: [phone] (30 min) Complex 03/12/2019 Patient Education: Patient Medication Summary Completed 03/12/2019 Appointment: Leydi Hightower WPtel: [phone] (30 min) Complex 03/05/2019 Visit Plan: Chronic [...] thyroid ultrasound 01/07/2019 Appointment: Leydi Hightower WPtel: [phone] (30 min) Complex 01/07/2019 Patient Education: Patient [...] the office 12/27/2018 Appointment: Leydi Hightower WPtel: [address] [place], [place] [phone] (15 min) Moderate 12/27/2018 Patient Education: Patient [...] medications. 11/05/2018 [facility]ment[facility] [phone] [phone] (30 min) Complex 11/05/2018 Patient Education: [...] of control. 09/27/2018 Appointment[facility] [phone] [phone] (15 min) Moderate 09/27/2018 Patient Education: [...] surrogate. 09/17/2018 Appointment: [facility] [phone] [phone] [facility] - Annual Wellness Visit 09/17/2018 Patient Education: Patient Medication Summary Completed 09/17/2018 Visit Plan: Chronic Pain Syndrome - pt has chronic pain - has been maintained on current medications, has not sought out other medications, only uses PRN pain medications as directed, and understands the consequences of over-medication. 09/03/2018 Appointment: [facility] [phone] [phone] (30 min) Complex 09/03/2018 Patient Education: [...] exposure. No change in current medications. Fatigue-weight [id number] labs including testosterone level 07/05/2018 Visit Plan: [...] exposure. No change in current medications. Fatigue-weight lgzi-TT-[id number] labs including testosterone level 07/05/2018 Appointment: Leydi Hightower WPtel: [phone] [phone] (15 min) Moderate 07/05/2018 Patient Education: Patient [...] to BID 05/04/2018 Appointment: [facility] [phone] [phone] (15 min) Moderate 05/04/2018 Patient Education: [...] pain. 03/28/2018 Appointment: Denae Mart[facility]nez [facility] [phone] [phone] (30 min) Complex 03/28/2018 Appointment: Nurse [...] time. 02/27/2018 Appointment: Leydi Hightower WPtel: [phone] [facility] [phone] (15 min) Moderate 02/27/2018 Patient Education: [...] control. 12/01/2017 Appointment: Den[facility] Mart[facility]nez [facility] [phone] [id number] ([facility] min) Complex 12/01/2017 Patient Education: [...] outpatient treatment 09/29/2017 Appointment: Leydi Hightower WPtel: [phone] ([facility] min) Complex 09/29/2017 Patient Education: [...] cons ider 08/11/2017 Appointment: Leydi Hightower WPtel: [address] [place], [place] [phone] (30 min) Complex 08/11/2017 Patient Education: Patient [...] current medications. 06/09/2017 Appointment: Leydi Hightower WPtel: [address] [place], [place] [phone] (30 min) Complex 06/09/2017 Patient Education: Patient [...] completely resolve 11/17/2016 Appointment: Leydi Hightower WPtel: [facility]3 [phone] (30 min) Complex 11/17/2016 Patient Education: Patient [...] in pain. 11/10/2016 Appointment: Leydi Hightower WPtel: [address] [place], [place] [phone] (30 min) Complex 11/10/2016 Patient Education: Patient [...] of plan. 10/14/2016 Appointment: Leydi Hightower WPtel: [address] [place], [place] [phone] (30 min) Complex 10/14/2016 Patient Education: Patient [...] will try 09/16/2016 Appointment: Leydi Hightower WPtel: [address] [place], [place] [phone] (30 min) Complex 09/16/2016 Patient Education: Patient Medication Summary Completed 09/16/2016 Visit Plan: Left shoulder and elbow pain-xray shoulder and elbow Hbsyttcsno-ykzozvsl-uzxsmuidhawo-d/c trazodone-start remeron at bedtime Pt has been [...] this patient. 08/19/2016 Appointment: Leydi Hightower WPtel: [address] [place], [place] [phone] [place] [address] (30 min) Complex 08/19/2016 Patient Education: Patient [...] Obesity Completed 06/17/2016 Appointment: Leydi Hightower WPtel: [address] [place], [place] [phone] [address] (30 min) Complex 06/09/2016 Visit Plan: [...] of control. 05/12/2016 Appointment: Leydi Hightower WPtel: [phone] ([facility] min) Complex 05/12/2016 Patient Education: [...] in office. 05/28/2015 Appointment: Leydi Hightower WPtel: [phone] ([facility] min) Complex 05/28/2015 Patient Education: [...] Care Plan: COMPLETE CBC AUTOMATED LOINC : 72561-2 Ordered 04/23/2015 Instructions Comment DECREASE LEVOTHYROXI NE [...] termination from this medical practice. Hypothyroidism- seeing schedule announcer . Chronic Pain Syndr ome - pt [...] exposure. No change in current medications. Fatigue-weight yvdh-OC-luvxr labs including testosterone level . Chronic Pain [...] exposure. No change in current medications. Fatigue-weight abra-QM-xpslt labs including testosterone level Get Immodium over [...] and elbow pain-xray shou lder and elbow Sfwrgmdcny-svmsonuu-vvffbxzeujzi-d/c trazodone-start remeron at bedtime Pt has been [...] Hypothyroidism -re sierra to Noemi Yan at [facility] Chronic Pain Syndrome - pt has [...] the consequences of over-medication. 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 Chronic Pain Syndrome [...]
--- OUTSIDE RECORDS SUMMARY | 2020-03-17 14:32 | XMS REPORT | CCD ---
Author Author Thai Castillo Organization Sara Jacobo MD, [facility] Address [address] [place] [address] Phone Care Team Providers Care Tooling Inspector Name Role Phone PP Unavailable CCM Unavailable Summary Purpose Interface Exchange Insurance Providers Payer name Policy type / Coverage type Covered alliance party ID Effective Begin Date Effective End Date WPS Medicare Part B Medicare Part B [id number] Unknown [facility] icare Part B [id number] Un known Family history Father Diagnosis Age At Onset Colon cancer Unknown Social History Social History Element Codes Description Effective Dates Employment Unknown [employer] nt[employer] unemployed Before disability 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/2018 On Disability Unknown Yes 09/27/2018 Marital status Unknown D ivorced 04/23/[address]: 339496287 Never smoker 04/23/[address]: 131987 Currently drinks alcohol occasionally drinks 04/23/2015 Allergies, [...] ICD-9: 244.9 ICD-10: E03.9 Active 06/16/2016 Unknown Encounter for screen ing for lipoid disorders ICD-9: V77.91 ICD-10: Z13.220 Active 01/07/2019 Unknown Major depressive dis order, recurrent, moderate ICD-9: 296.32 ICD-10: F33.1 Active 10/13/2016 Unknown Obstructive sleep ap susan (adult) (pediatric) [...] ecified ICD-9: 244.9 ICD-10: E03.9 06/16/2016 Active Encounter for screen ing for lipoid disorders ICD-9: V77.91 ICD-10: Z13.220 01/07/2019 Active Major depressive dis order, recurrent, moderate ICD-9: 296.32 ICD-10: F33.1 10/13/2016 Active Obstructive sleep ap susan (adult) (pediatric) [...] Date Stop Date Sta tus Fill Instructions morphine 30 mg table t, crush resistant, extended release RxNorm: 3664386 1 Tablet(s) PO BID 07/05/2019 08/03/2019 Active doxycycline hyclate 100 mg tablet RxNorm: 2821803 1 Tablet(s) PO BID 06/21/2019 07/20/2019 Active Provigil 100 mg tablet RxNorm: 940640 1 Tablet(s) PO daily 06/12/2019 08/10/2019 Active Provigil 100 mg tablet RxNorm: 327661 1 Tablet(s) PO daily 06/12/2019 06/11/2019 Inactive baclofen 10 mg tablet RxNorm: 164524 TAKE ONE TABLET BY MOUTH THREE TIMES A D AY NEEDED 05/28/2019 09/24/2019 Active tizanidine 4 mg tablet RxNorm: 664150 TAKE ONE TABLET BY MOUTH THREE TIMES A D AY NEEDED 05/28/2019 09/24/2019 Active diclofenac sodium 75 mg tablet,delayed release RxNorm: 671447 TAKE ONE TABLET BY MO [facility] TWICE A DAY 05/21/2019 10/17/2019 Active oxymorphone 5 mg tablet RxNorm: 200817 1 Tablet(s) PO Q6 PRN 05/14/2019 07/12/2019 Active doxycycline hyclate 100 mg tablet RxNorm: 5323166 1 Tablet(s) PO BID 05/14/2019 05/23/2019 Inactive morphine 30 mg table t, crush resistant, extended release RxNorm: 2980750 1 Tablet(s) PO BID 05/14/2019 06/12/2019 Inactive morphine 30 mg table t, crush resistant, extended release RxNorm: 0612674 1 Tablet(s) PO BID 05/07/2019 05/13/2019 Inactive levothyroxine 200 mc g tablet RxNorm: 974027 1 Tablet(s) PO daily TAKE ONE TABLET BY MOUTH DAILY 03/12/2019 09/07/2019 Active Updated script trazodone 50 mg tablet RxNorm: 854216 1.5 Tablet(s) PO QHS TAKE ONE TABLET BY MOUTH EVERY NIGHT AT BEDTIME AND ONE-HALF TABLET BY MOUTH NEEDED 03/12/2019 06/09/2019 Inactive morphine 30 mg table t, crush resistant, extended release RxNorm: 7234859 1 Tablet(s) PO BID 03/12/2019 04/10/2019 Inactive oxymorphone 5 mg tablet RxNorm: 964361 1 Tablet(s) PO Q6 PRN 03/12/2019 05/10/2019 Inactive doxycycline hyclate 100 mg tablet RxNorm: 5252479 1 Tablet(s) PO BID 03/12/2019 03/21/2019 Inactive morphine 30 mg table t, crush resistant, extended release RxNorm: 2416073 1 Tablet(s) PO BID 03/06/2019 03/11/2019 Inactive tizanidine 4 mg tablet RxNorm: 310068 TAKE ONE TABLET BY MOUTH THREE TIMES A D AY NEEDED 02/26/2019 05/26/2019 Inactive diclofenac sodium 75 mg tablet,delayed release RxNorm: 141806 TAKE ONE TABLET BY MO [facility] TWICE A DAY 02/18/2019 05/18/2019 Inactive Protonix 40 mg table t,delayed release RxNorm: 678392 TAKE ONE TABLET BY MO UTH DAILY 02/06/2019 09/03/2019 Ac tive trazodone 50 mg tablet RxNorm: 968914 TAKE ONE TABLET BY MOUTH EVERY NIGHT AT BEDTIME AND ONE-HALF TABLET BY MOUTH NEEDED 01/14/2019 03/11/2019 Inactive oxymorphone 5 mg tablet RxNorm: 430185 1 Tablet(s) PO Q6 PRN 01/07/2019 03/07/2019 Inactive morphine 30 mg table t, crush resistant, extended release RxNorm: 8469643 1 Tablet(s) PO BID 01/07/2019 03/05/2019 Inactive doxycycline hyclate 100 mg tablet RxNorm: 9693267 1 Tablet(s) PO BID 01/01/2019 01/10/2019 Inactive cyanocobalamin (vit B-12) 1,000 mcg/mL injection solution RxNorm: 171370 1 Milliliter(s) Inj 12/27/2018 12/27/2018 Inactive baclofen 10 mg tablet RxNorm: 926251 TAKE ONE TABLET BY MOUTH THREE TIMES A D AY NEEDED 11/29/2018 03/28/2019 Inactive Request already responded t o by other means (e.g. phone or fax) baclofen 10 mg tablet RxNorm: 751434 Tablet(s) TAKE ONE TABLET BY MOUTH THREE TIMES A DAY NEEDED 11/28/2018 11/28/2018 Inactive doxycycline hyclate 100 mg tablet RxNorm: 4231923 1 Tablet(s) PO BID 11/14/2018 11/23/2018 Inactive trazodone 50 mg tablet RxNorm: 712566 TAKE ONE TABLET BY MOUTH EVERY NIGHT AT BEDTIME AND ONE-HALF TABLET BY MOUTH NEEDED 11/12/2018 12/21/2018 Inactive tizanidine 4 mg tablet RxNorm: 709608 TAKE ONE TABLET BY MOUTH THREE TIMES A D AY NEEDED 10/22/2018 02/18/2019 Inactive diclofenac sodium 75 mg tablet,delayed release RxNorm: 596515 TAKE ONE TABLET BY MO [facility] TWICE A DAY 10/15/2018 02/11/2019 Inactive Lasix 20 mg tablet RxNorm: 970290 1 Tablet(s) PO daily as needed 10/10/2018 11/08/2018 In active potassium chloride E R 10 mEq tablet,extended release RxNorm: 174638 1 Tablet(s) PO daily as needed to take with lasix for inceased edema 10/10/2018 11/08/2018 Inactive potassium chloride E R 10 mEq tablet,extended release RxNorm: 848269 1 Tablet(s) PO daily as needed to take with lasix for inceased edema 10/10/2018 10/09/2018 Inactive Lasix 20 mg tablet RxNorm: 482983 1 Tablet(s) PO daily as needed 10/10/2018 10/09/2018 In active doxycycline hyclate 100 mg tablet RxNorm: 4395345 1 Tablet(s) PO BID 09/27/2018 10/10/2018 Inactive Remeron 15 mg tablet RxNorm: 518148 1.5 Tablet(s) PO QPM TAKE ONE TABLET BY MOUTH EVERY NIGHT AT BEDTIME 09/18/2018 12/16/2018 Inactive baclofen 10 mg tablet RxNorm: 279418 TAKE ONE TABLET BY MOUTH THREE TIMES A D AY NEEDED 09/12/2018 11/10/2018 Inactive Remeron 15 mg tablet RxNorm: 865505 1.5 Tablet(s) PO QPM TAKE ONE TABLET BY MOUTH EVERY NIGHT AT BEDTIME 09/03/2018 09/17/2018 Inactive oxymorphone 5 mg tablet RxNorm: 396974 1 Tablet(s) PO Q6 PRN 09/03/2018 11/01/2018 Inactive morphine 30 mg table t, crush resistant, extended release RxNorm: 0696006 1 Tablet(s) PO BID 09/03/2018 11/01/2018 Inactive trazodone 50 mg tablet RxNorm: 719792 TAKE ONE TABLET BY MOUTH EVERY NIGHT AT BEDTIME AND ONE-HALF TABLET BY MOUTH NEEDED 09/03/2018 10/12/2018 Inactive tizanidine 4 mg tablet RxNorm: 395668 TAKE ONE TABLET BY MOUTH THREE TIMES A D AY NEEDED 08/20/2018 10/18/2018 Inactive Protonix 40 mg table t,delayed release RxNorm: 492014 TAKE ONE TABLET BY [facility] DAILY 08/10/2018 02/05/2019 In active Carafate 1 gram tablet RxNorm: 811732 TAKE ONE TABLET BY MOUTH BEFORE MEALS AN D AT BEDTIME NEEDED FOR HEARTBURN 07/31/2018 12/27/2018 Inactive Protonix 40 mg table t,delayed release RxNorm: 034919 1 Tablet(s) BID 07/24/2018 07/23/2018 Inactive Protonix 40 mg table t,delayed release RxNorm: 052767 1 Tablet(s) daily 07/24/2018 08/09/2018 In active liothyronine 5 mcg t ablet RxNorm: 696703 TAKE ONE TABLET BY [facility] DAILY 07/19/2018 01/09/2019 In active baclofen 10 mg tablet RxNorm: 103768 TAKE ONE TABLET BY MOUTH THREE TIMES A D AY NEEDED 07/12/2018 09/09/2018 Inactive levothyroxine 175 mc g tablet RxNorm: 684028 1 Tablet(s) PO daily 07/11/2018 03/11/2019 Inactive Vitamin D2 50,000 un it capsule RxNorm: 5973719 1 Capsule(s) PO QW 07/11/2018 10/02/2018 Inactive trazodone 50 mg tablet RxNorm: 329332 TAKE ONE TABLET BY MOUTH EVERY NIGHT AT BEDTIME AND ONE-HALF TABLET BY MOUTH NEEDED 07/11/2018 08/19/2018 Inactive Vitamin D2 50,000 un it capsule RxNorm: 3717490 1 Capsule(s) PO QW 07/11/2018 07/10/2018 Inactive morphine 30 mg table t, crush resistant, extended release RxNorm: 3124905 1 Tablet(s) PO BID 07/05/2018 09/02/2018 Inactive oxymorphone 5 mg tablet RxNorm: 441204 1 Tablet(s) PO Q6 PRN 07/05/2018 09/02/2018 Inactive bupropion HCl XL 300 mg 24 hr tablet, extended release RxNorm: 274903 TAKE ONE TABLET BY MOUTH DAILY 06/27/2018 12/23/2018 Inactive Remeron 15 mg tablet RxNorm: 681229 TAKE ONE TABLET BY MOUTH EVERY NIGHT AT BEDTIME 06/27/2018 09/02/2018 Inactive tizanidine 4 mg tablet RxNorm: 009939 TAKE ONE TABLET BY MOUTH THREE TIMES A D AY NEEDED 06/20/2018 08/18/2018 Inactive doxycycline hyclate 100 mg tablet RxNorm: 1520448 1 Tablet(s) PO BID 06/18/2018 07/01/2018 Inactive Protonix 40 mg table t,delayed release RxNorm: 652502 TAKE ONE TABLET BY MO UTH DAILY 06/11/2018 07/23/2018 In active doxycycline hyclate 100 mg tablet RxNorm: 3890258 1 Tablet(s) PO BID 05/22/2018 06/04/2018 Inactive baclofen 10 mg tablet RxNorm: 223197 TAKE ONE TABLET BY MOUTH THREE TIMES A D AY NEEDED 05/14/2018 07/11/2018 Inactive diclofenac sodium 75 mg tablet,delayed release RxNorm: 672365 TAKE ONE TABLET BY MO [facility] TWICE A DAY 05/07/2018 10/03/2018 Inactive oxymorphone 5 mg tablet RxNorm: 032981 1 Tablet(s) PO Q6 PRN 05/04/2018 07/02/2018 Inactive morphine 30 mg table t, crush resistant, extended release RxNorm: 2154921 1 Tablet(s) PO BID 05/04/2018 07/02/2018 Inactive doxycycline hyclate 100 mg tablet RxNorm: 247260 1 Tablet(s) PO BID 04/24/2018 04/23/2018 Inactive doxycycline hyclate 100 mg tablet RxNorm: 4378325 1 Tablet(s) PO BID 04/24/2018 05/03/2018 Inactive baclofen 10 mg tablet RxNorm: 448126 TAKE ONE TABLET BY MOUTH THREE TIMES A D AY NEEDED 04/13/2018 05/12/2018 Inactive trazodone 50 mg tablet RxNorm: 652641 TAKE ONE TABLET BY MOUTH EVERY NIGHT AT BEDTIME AND ONE-HALF TABLET BY MOUTH NEEDED 04/09/2018 06/07/2018 Inactive Questran 4 gram powd er for susp in a packet RxNorm: 374178 1 packet PO BID 04/06/2018 06/04/2018 In active Questran 4 gram powd er for susp in a packet RxNorm: 642967 1 packet PO BID 04/06/2018 04/05/2018 In active Carafate 1 gram tablet RxNorm: 646333 1 Tablet(s) PO AC & HS as needed for hea rtburn 03/28/2018 04/26/2018 Inactive baclofen 10 mg tablet RxNorm: 868132 TAKE ONE TABLET BY MOUTH THREE TIMES A D AY NEEDED 03/16/2018 04/12/2018 Inactive Protonix 40 mg table t,delayed release RxNorm: 735370 TAKE ONE TABLET BY MO [facility] DAILY 03/16/2018 06/10/2018 In active oxymorphone 5 mg tablet RxNorm: 062579 1 Tablet(s) PO Q6 PRN 02/27/2018 04/27/2018 Inactive morphine 30 mg table t, crush resistant, extended release RxNorm: 7621659 1 Tablet(s) PO BID 02/27/2018 04/27/2018 Inactive Belviq XR 20 mg tabl et,extended release RxNorm: 2917139 1 Tablet(s) PO daily 02/27/2018 01/06/2019 In active levothyroxine 100 mc g tablet RxNorm: 291724 1 Tablet(s) PO daily 02/27/2018 07/10/2018 Inactive take with 88mcg to = 188mcg daily levothyroxine 88 mcg tablet RxNorm: 918175 1 Tablet(s) PO daily 02/27/2018 07/10/2018 Inactive take with 100mcg to = 188mcg daily morphine 30 mg table t, crush resistant, extended release RxNorm: 1639145 1 Tablet(s) PO BID 02/14/2018 02/26/2018 Inactive levothyroxine 200 mc g tablet RxNorm: 605939 Tablet(s) TAKE ONE TA BLET BY MOUTH DAILY 01/18/2018 02/26/2018 Inactive Updated script baclofen 10 mg tablet RxNorm: 677339 Tablet(s) TAKE ONE TABLET BY MOUTH THREE TIMES A DAY NEEDED 01/15/2018 02/13/2018 Inactive morphine 30 mg table t, crush resistant, extended release RxNorm: 3815124 1 Tablet(s) PO BID 01/15/2018 02/13/2018 Inactive tizanidine 4 mg tablet RxNorm: 611481 TAKE ONE TABLET BY MOUTH THREE TIMES A D AY NEEDED 01/02/2018 04/01/2018 Inactive Request already responded t o by other means (e.g. phone or fax) bupropion HCl XL 300 mg 24 hr tablet, extended release RxNorm: 603337 TAKE ONE TABLET BY MOUTH DAILY 12/29/2017 06/26/2018 Inactive Tamiflu 75 mg capsule RxNorm: 270684 1 Capsule(s) PO BID 12/27/2017 12/31/2017 Inactive Tamiflu 75 mg capsule RxNorm: 598573 1 Capsule(s) PO BID 12/27/2017 12/26/2017 Inactive tizanidine 4 mg tablet RxNorm: 297892 1 Tablet(s) PO TID as needed 12/25/2017 01/01/2018 Inactive levothyroxine 175 mc g tablet RxNorm: 405462 1 Tablet(s) PO daily 12/14/2017 12/13/2017 Inactive levothyroxine 175 mc g tablet RxNorm: 727854 1 Tablet(s) PO daily 12/14/2017 01/17/2018 Inactive baclofen 10 mg tablet RxNorm: 588617 Tablet(s) TAKE ONE TABLET BY MOUTH THREE TIMES A DAY NEEDED 12/13/2017 01/11/2018 Inactive baclofen 10 mg tablet RxNorm: 545562 TAKE ONE TABLET BY MOUTH THREE TIMES A D AY NEEDED 12/13/2017 12/12/2017 Inactive morphine 30 mg table t, crush resistant, extended release RxNorm: 6967899 1 Tablet(s) PO BID 12/12/2017 01/14/2018 Inactive clonazepam 1 mg tablet RxNorm: 739381 1/2 Tablet(s) PO daily 12/01/2017 08/27/2018 Inactive trazodone 50 mg tablet RxNorm: 954227 1/2 to 1 Tablet(s) QHS as needed 12/01/2017 03/30/2018 In active Opana ER 15 mg table t, crush resistant, extended release RxNorm: 708145 1 Tablet(s) PO Q12H 12/01/2017 02/13/2018 Inactive oxymorphone 5 mg tablet RxNorm: 383376 1 Tablet(s) PO Q6 PRN 12/01/2017 02/26/2018 Inactive Remeron 15 mg tablet RxNorm: 131201 Tablet(s) TAKE ONE TABLET BY MOUTH EVERY NIGHT AT BEDTIME 12/01/2017 02/28/2018 Inactive trazodone 50 mg tablet RxNorm: 266113 1/2 Tablet(s) as needed 1 Tablet(s) PO Q HS 12/01/2017 11/30/2017 In active clonazepam 1 mg tablet RxNorm: 943715 1/2 Tablet(s) PO daily 11/30/2017 11/30/2017 Inactive Remeron 15 mg tablet RxNorm: 604263 TAKE ONE TABLET BY MOUTH EVERY NIGHT AT BEDTIME 11/29/2017 11/30/2017 Inactive levothyroxine 200 mc g tablet RxNorm: 429239 TAKE ONE TABLET BY [facility] DAILY 11/15/2017 12/13/2017 In active baclofen 10 mg tablet RxNorm: 700854 TAKE ONE TABLET BY MOUTH THREE TIMES A D AY NEEDED 11/07/2017 12/06/2017 Inactive diclofenac sodium 75 mg tablet,delayed release RxNorm: 025758 1 Tablet(s) PO BID 11/07/2017 05/05/2018 In active liothyronine 5 mcg t ablet RxNorm: 620741 TAKE ONE TABLET BY [facility] DAILY 10/27/2017 07/18/2018 In active tizanidine 4 mg tablet RxNorm: 911736 1 Tablet(s) PO TID as needed 10/18/2017 12/16/2017 Inactive oxymorphone 5 mg tablet RxNorm: 017106 1 Tablet(s) PO Q6 PRN 09/29/2017 11/27/2017 Inactive morphine 30 mg table t, crush resistant, extended release RxNorm: 5738036 1 Tablet(s) PO BID 09/29/2017 11/28/2017 Inactive baclofen 10 mg tablet RxNorm: 310095 1 Tablet(s) PO TID as needed 09/11/2017 10/10/2017 Inactive baclofen 10 mg tablet RxNorm: 612077 1 Tablet(s) PO TID as needed 08/11/2017 09/09/2017 Inactive Opana ER 15 mg table t, crush resistant, extended release RxNorm: 508649 1 Tablet(s) PO Q12H 08/11/2017 09/28/2017 Inactive Remeron 15 mg tablet RxNorm: 114863 TAKE ONE TABLET BY MOUTH EVERY NIGHT AT BEDTIME 08/02/2017 10/30/2017 Inactive oxymorphone 5 mg tablet RxNorm: 037937 1 Tablet(s) PO Q6 PRN 08/02/2017 09/28/2017 Inactive Opana ER 5 mg tablet , crush resistant, extended release RxNorm: 993588 1 Tablet(s) PO Q6 PRN 08/01/2017 08/10/2017 Inactive Protonix 40 mg table t,delayed release RxNorm: 179410 TAKE ONE TABLET BY [facility] DAILY 06/26/2017 06/25/2017 In active Protonix 40 mg table t,delayed release RxNorm: 125895 TAKE ONE TABLET BY [facility] DAILY 06/26/2017 02/05/2019 In active bupropion HCl XL 300 mg 24 hr tablet, extended release RxNorm: 935253 TAKE ONE TABLET BY MOUTH DAILY 06/13/2017 12/09/2017 Inactive tizanidine 4 mg tablet RxNorm: 639761 1 Tablet(s) PO TID as needed 06/13/2017 06/12/2017 Inactive tizanidine 4 mg tablet RxNorm: 200831 1 Tablet(s) PO TID as needed 06/13/2017 09/10/2017 Inactive baclofen 10 mg tablet RxNorm: 032006 1 Tablet(s) PO TID as needed 06/13/2017 07/12/2017 Inactive Opana ER 15 mg table t, crush resistant, extended release RxNorm: 352898 1 Tablet(s) PO Q12H 06/09/2017 08/07/2017 Inactive Opana ER 5 mg tablet , crush resistant, extended release RxNorm: 361759 1 Tablet(s) PO Q6 PRN 06/09/2017 07/31/2017 Inactive diclofenac sodium 75 mg tablet,delayed release RxNorm: 897807 1 Tablet(s) PO BID 06/09/2017 09/06/2017 In active clonazepam 1 mg tablet RxNorm: 251282 1/2 Tablet(s) PO daily 05/24/2017 11/18/2017 Inactive bupropion HCl XL 300 mg 24 hr tablet, extended release RxNorm: 406116 TAKE ONE TABLET BY MOUTH DAILY 03/16/2017 06/12/2017 Inactive clonazepam 1 mg tablet RxNorm: 573656 1/2 Tablet(s) PO daily 02/22/2017 05/18/2017 Inactive Remeron 15 mg tablet RxNorm: 842818 TAKE ONE TABLET BY MOUTH EVERY NIGHT AT BEDTIME 02/06/2017 2017 Inactive Protonix 40 mg table t,delayed release RxNorm: 883161 TAKE ONE TABLET BY MO [facility] DAILY 01/26/2017 06/24/2017 In active mupirocin 2 % topica l ointment RxNorm: 545499 1 Application TOP BID 01/12/2017 01/18/2017 Inactive Bactrim DS 800 mg-16 0 mg tablet RxNorm: 015219 1 Tablet(s) PO BID 11/17/2016 11/23/2016 Inactive mupirocin 2 % topica l ointment RxNorm: 172999 1 Application TOP BID 11/10/2016 11/16/2016 Inactive Bactrim DS 800 mg-16 0 mg tablet RxNorm: 775687 1 Tablet(s) PO BID 11/10/2016 11/16/2016 Inactive bupropion HCl XL 300 mg 24 hr tablet, extended release RxNorm: 954823 TAKE ONE TABLET BY MOUTH DAILY 11/07/2016 03/06/2017 Inactive liothyronine 5 mcg t ablet RxNorm: 578827 1 Tablet(s) PO daily 11/01/2016 10/26/2017 Inactive levothyroxine 200 mc g tablet RxNorm: 353683 1 Tablet(s) PO daily 10/04/2016 09/28/2017 Inactive clonazepam 1 mg tablet RxNorm: 430830 1/2 Tablet(s) PO daily 09/21/2016 03/18/2017 Inactive clonazepam 1 mg tablet RxNorm: 520758 1/2 Tablet(s) PO daily 09/16/2016 09/20/2016 Inactive Abilify 2 mg tablet RxNorm: 330712 1 Tablet(s) PO daily 09/16/2016 10/13/2016 Inactive trazodone 50 mg tablet RxNorm: 643792 1/2 Tablet(s) as needed 1 Tablet(s) PO Q HS 09/16/2016 01/13/2017 In active morphine 15 mg immed iate release tablet RxNorm: 759207 1 Tablet(s) PO Q6 PRN 09/16/2016 04/06/2017 In active baclofen 10 mg tablet RxNorm: 579067 1 Tablet(s) PO TID as needed 09/16/2016 06/12/2017 Inactive MS Contin 30 mg tabl et,extended release RxNorm: 514330 1 Tablet(s) PO Q12H 09/16/2016 04/06/2017 In active Remeron 15 mg tablet RxNorm: 521365 1 Tablet(s) PO QHS 08/19/2016 09/15/2016 Inactive levothyroxine 200 mc g tablet RxNorm: 434995 1 Tablet(s) PO daily 08/11/2016 10/03/2016 Inactive bupropion HCl XL 300 mg 24 hr tablet, extended release RxNorm: 230402 TAKE ONE TABLET BY MOUTH DAILY 08/11/2016 11/06/2016 Inactive Protonix 40 mg table t,delayed release RxNorm: 015439 1 Tablet(s) PO daily 06/17/2016 12/13/2016 In active bupropion HCl XL 300 mg 24 hr tablet, extended release RxNorm: 044047 1 Tablet(s) PO daily 05/12/2016 07/10/2016 Inactive bupropion HCl XL 300 mg 24 hr tablet, extended release RxNorm: 625934 1 Tablet(s) PO daily 05/12/2016 05/11/2016 Inactive Cialis 20 mg tablet RxNorm: 426724 1 Tablet(s) PO PRN 02/16/2016 No Stop Date Active not more than 1 tab in 24 hours morphine ER 10 mg ca psule,extended release pellets RxNorm: 011574 1 Tablet(s) PO Q6 as needed 02/16/2016 11/16/2016 Inactive clonazepam 1 mg tablet RxNorm: 346378 1/2 Tablet(s) PO BID 02/16/2016 09/15/2016 Inactive trazodone 50 mg tablet RxNorm: 576609 1/2 Tablet(s) as needed 1 Tablet(s) PO Q HS 02/16/2016 08/18/2016 In active trazodone 50 mg tablet RxNorm: 434159 1/2 Tablet(s) 1 Tablet(s) PO QHS 11/17/2015 02/15/2016 In active trazodone 50 mg tablet RxNorm: 261893 1 Tablet(s) PO QHS 10/19/2015 11/16/2015 Inactive levothyroxine 200 mc g tablet RxNorm: 760994 1 Tablet(s) PO daily 10/02/2015 08/10/2016 Inactive Wellbutrin XL 150 mg 24 hr tablet, extended release RxNorm: 498205 1 Tablet(s) PO daily 10/02/2015 05/11/2016 Inactive levothyroxine 200 mc g tablet RxNorm: 853588 1 Tablet(s) PO daily 09/30/2015 10/01/2015 Inactive Wellbutrin XL 150 mg 24 hr tablet, extended release RxNorm: 722009 1 Tablet(s) PO daily 09/30/2015 10/01/2015 Inactive trazodone 50 mg tablet RxNorm: 152433 1 Tablet(s) PO QHS 09/11/2015 10/10/2015 Inactive trazodone 50 mg tablet RxNorm: 946994 1 Tablet(s) PO QHS 09/11/2015 09/10/2015 Inactive Cymbalta 30 mg capsu le,delayed release RxNorm: 666206 1 Capsule(s) PO daily 09/07/2015 11/16/2015 In active Cymbalta 60 mg capsu le,delayed release RxNorm: 270531 1 Capsule(s) PO daily 08/31/2015 08/30/2015 In active Cymbalta 30 mg capsu le,delayed release RxNorm: 430100 1 Capsule(s) PO daily take with 60mg to make 90 mg daily 08/31/2015 09/06/2015 Inactive Cymbalta 30 mg capsu le,delayed release RxNorm: 888864 1 Capsule(s) PO daily take with 60mg to make 90 mg daily 08/31/2015 08/30/2015 Inactive Cymbalta 60 mg capsu le,delayed release RxNorm: 775511 1 Capsule(s) PO daily x 7 days and then increase to 90mg daily 08/31/2015 09/07/2015 Inactive levothyroxine 200 mc g tablet RxNorm: 074366 1 Tablet(s) PO daily 08/14/2015 09/29/2015 Inactive Wellbutrin XL 150 mg 24 hr tablet, extended release RxNorm: 865367 1 Tablet(s) PO daily 07/14/2015 09/29/2015 Inactive Cialis 20 mg tablet RxNorm: 049640 1 Tablet(s) PO PRN 07/02/2015 02/15/2016 Inactive not more than 1 tab in 24 hours liothyronine 5 mcg t ablet RxNorm: 359407 1 Tablet(s) PO daily 2015 05/29/2016 Inactive clonazepam 1 mg tablet RxNorm: 727637 1 Tablet(s) PO TID 2015 02/15/2016 Inactive minocycline 50 mg ta blet RxNorm: 453294 1 Tablet(s) PO daily 2015 05/11/2016 Inactive Wellbutrin XL 150 mg 24 hr tablet, extended release RxNorm: 343564 1 Tablet(s) PO daily 04/23/2015 07/13/2015 Inactive levothyroxine 200 mc g tablet RxNorm: 100986 1 Tablet(s) PO daily 04/23/2015 08/13/2015 Inactive Aleve oral RxNorm: 289980 oral No Start Date Active Tylenol 500 mg RxNorm: oral No Start Date Active morphine ER 15 mg ta blet,extended release RxNorm: 344748 oral No Start Date 11/16/2016 Inactive Trazadone 25 mg RxNorm: 2 PO daily No Start Date 09/11/2015 Inactive diclofenac oral RxNorm: 3355 oral No Start Date 05/04/2018 Inactive clonazepam 1 mg tablet RxNorm: 250976 1 Tablet(s) PO QHS No Start Date 06/04/2015 Inactive Wellbutrin XL 150 mg 24 hr tablet, extended release RxNorm: 095610 1 Tablet(s) PO daily No Start Date 04/22/2015 Inactive minocycline 50 mg ta blet RxNorm: 050375 1 Tablet(s) PO daily No Start Date 06/04/2015 Inactive methadone 5 mg tablet RxNorm: 623862 1 Tablet(s) PO Q8 No Start Date 02/15/2016 Inactive Protonix 40 mg table t,delayed release RxNorm: 774803 Tablet(s) PO daily No Start Date 06/16/2016 Inactive Opana ER 15 mg table t, crush resistant, extended release RxNorm: 609642 1 Tablet(s) PO Q12H No Start Date 06/08/2017 Inactive MS Contin 30 mg tabl et,extended release RxNorm: 653569 1 Tablet(s) PO Q12H No Start Date 02/15/2016 Inactive Opana ER 15 mg table t, crush resistant, extended release RxNorm: 108610 1 Tablet(s) PO BID No Start Date 09/15/2016 Inactive liothyronine 5 mcg t ablet RxNorm: 180404 1 Tablet(s) PO daily No Start Date 06/04/2015 Inactive Cialis 20 mg tablet RxNorm: 036913 1 Tablet(s) PO PRN No Start Date 07/01/2015 Inactive not more than 1 tab in 24 hours baclofen 10 mg tablet RxNorm: 920543 1 Tablet(s) PO TID as needed No Start Date 05/11/2016 Inactive morphine 15 mg immed iate release tablet RxNorm: 910012 1 Tablet(s) PO Q6 PRN as needed No Start Date 02/15/2016 Inactive levothyroxine 200 mc g tablet RxNorm: 238332 1 Tablet(s) PO daily No Start Date 04/22/2015 Inactive Opana ER 5 mg tablet , crush resistant, extended release RxNorm: 275158 1 Tablet(s) PO Q6 No Start Date 06/08/2017 Inactive Medication Administered Medication Codes Instruc tions Start Date Status cyanocobalamin (vit B-12) 1,000 mcg/mL injection solut ion RxNorm: 941999 1Milliliter 12/27/2018 No longer Active Immunizations No Immunization data Assessments Condition Codes Effectiv e Dates Chronic pain syndrome ICD-10: G89.4 ICD-9: 338.4 05/14/2019 Hypothyroidism, unspecified ICD-10: E03.9 ICD-9: 244.9 05/14/2019 Encounter for screening for lipoid disorders ICD-10: Z13.220 ICD-9: V77.91 01/07/2019 Major depressive disorder, recurrent, moderate ICD-10: F33.1 ICD-9: 296.32 01/07/2019 Vitamin B12 deficiency anemia, unspecified ICD-10: [...] Reason For Visit Effective Dates Notes fatigue 05/14/2019 fatigue 03/12/2019 fatigue 01/07/2019 fatigue [...] 29.4 pg 01/07/2019 Cbc With Differential Ord2 [place]% 10.9 % 01/07/2019 Cbc With Differential Ord2 [...] 1.77 K/ul 01/07/2019 Cbc With Differential Ord2 [place] ABS# 0.5 K/ul 01/07/2019 Cbc With Differential Ord2 Eos ABS# 0.1 K/ul 01/07/2019 Cbc With Differential Ord2 Baso ABS# 0.0 K/ul 01/07/2019 Free T4 Sup392 FREE T4 2.05 ng/dL 01/07/2019 Lipid Ord30 CHOL 189 mg/dL 01/07/2019 Lipid Ord30 HDL 58.0 mg/dl 01/07/2019 Lipid Ord30 TRIG 155 mg/dL 01/07/2019 Lipid Ord30 LDL 100 mg/dL 01/07/2019 Lipid Ord30 C/HDL 3.3 Ratio 01/07/2019 Comp Metabolic Jzo378 NA 137 mEq/L 01/07/2019 Comp Metabolic Kpc275 K 4.2 mEq/L 01/07/2019 Comp Metabolic Uud838 CL 104 mEq/L 01/07/2019 Comp Metabolic Orf628 CO2 26.0 mEq/L 01/07/2019 Comp Metabolic Ump925 AN ION GAP 11 01/07/2019 Comp Metabolic Xki564 GL UCOSE 64 mg/dL 01/07/2019 Comp Metabolic Hma320 Cr eat 0.8 mg/dL 01/07/2019 Comp Metabolic Gko255 eG FR 110 ml/min/1.73m2 12/28 Comp Metabolic Udt033 BUN 7 mg/dL 01/07/2019 Comp Metabolic Yxx999 B/ C Ratio 9.0 Ratio 01/07/2019 Comp Metabolic Lys907 CA LCIUM 9.7 mg/dL 01/07/2019 Comp Metabolic Oic006 AL K PHOS 64 U/L 01/07/2019 Comp Metabolic Csu323 T(SGOT) 32 U/L 01/07/2019 Comp Metabolic Kct899 AL T(SGPT) 44 U/L 01/07/2019 Comp Metabolic Rov272 BI LI T 0.3 mg/dL 01/07/2019 Comp Metabolic Jqn873 AL BUMIN 4.3 g/dL 01/07/2019 Comp Metabolic Rcj465 TP RO 6.5 g/dL 01/07/2019 Comp Metabolic Feu085 GL OB 2.2 g/dL 01/07/2019 Comp Metabolic Lia801 A/ G Ratio 2.0 Ratio 01/07/2019 Comp Metabolic Bxk072 Os mo 270 mOsmo 01/07/2019 Free T4 Psx006 FREE T4 1.54 ng/dL 11/05/2018 Vitamin D 25 Oh Wbx9624 VITAMIN D, 25 HYDROXY 40.65 ng/mL 11/05/2018 Tsh Ord6 TSH (3rd IS) 0.02 uIU/mL 11/05/2018 Vitamin D 25 Oh Hyd0413 VITAMIN D, 25 HYDROXY 30.96 ng/mL 07/06/2018 Comp Metabolic Yuk749 NA 141 mEq/L 07/06/2018 Comp Metabolic Tec713 K 4.2 mEq/L 07/06/2018 Comp Metabolic Owh831 CL 103 mEq/L 07/06/2018 Comp Metabolic Zkr543 CO2 29.0 mEq/L 07/06/2018 Comp Metabolic Zin785 AN ION GAP 13 07/06/2018 Comp Metabolic Jpv942 GL UCOSE 105 mg/dL 07/06/2018 Comp Metabolic Cci252 Cr eat 0.8 mg/dL 07/06/2018 Comp Metabolic Ctf891 eG FR 101 ml/min/1.73m2 06/27 Comp Metabolic Beo706 BUN 7 mg/dL 07/06/2018 Comp Metabolic Swx987 B/ C Ratio 8.3 Ratio 07/06/2018 Comp Metabolic Kag177 CA LCIUM 9.9 mg/dL 07/06/2018 Comp Metabolic Rpn462 AL K PHOS 65 U/L 07/06/2018 Comp Metabolic Xfr820 T(SGOT) 21 U/L 07/06/2018 Comp Metabolic Cbn516 AL T(SGPT) 31 U/L 07/06/2018 Comp Metabolic Fow043 BI LI T 0.3 mg/dL 07/06/2018 Comp Metabolic Skv657 AL BUMIN 4.3 g/dL 07/06/2018 Comp Metabolic Qpe616 TP RO 6.4 g/dL 07/06/2018 Comp Metabolic Mbb819 GL OB 2.1 g/dL 07/06/2018 Comp Metabolic Pyv208 A/ G Ratio 2.0 Ratio 07/06/2018 Comp Metabolic Sko617 Os mo 280 mOsmo 07/06/2018 Cbc With [...] 29.3 pg 07/06/2018 Cbc With Differential Ord2 [place]% 10.5 % 07/06/2018 Cbc With Differential Ord2 [...] 1.89 K/ul 07/06/2018 Cbc With Differential Ord2 [place] ABS# 0.5 K/ul 07/06/2018 Cbc With Differential Ord2 Eos ABS# 0.3 K/ul 07/06/2018 Cbc With Differential Ord2 Baso ABS# 0.0 K/ul 07/06/2018 Total Psa Ord10 PSA 0.34 ng/mL 07/06/2018 Tsh Ord6 TSH (3rd IS) 0.02 uIU/mL 07/06/2018 Testosterone Ivd974 Testo 400.6 ng/dL 07/06/2018 Free T4 Qnc269 FREE T4 1.48 ng/dL 07/06/2018 [place] Spotted Fever Igg/Igm 46140 3 PARTHA MT SPOTTED FEVER IGM EIA . 04/04/2018 [place] Spotted Fever Igg/Igm 04083 3 RMSF, IGM 0.24 index 04/04/2018 [place] Spotted Fever Igg/Igm 35430 3 PARTHA MT SPOTTED FEVER IGG EIA FLEX . 04/04/2018 [place] Spotted Fever Igg/Igm 37762 3 RMSF, IGG SCREEN-FLEX Equivocal 04/04/2018 [place] Iln Spot'D Fev Igg 517676 RMSF, IGG- TITER IFA <1:64 04/04/2018 Ehrlichia Chaffeensis Antibody Igg [id number] EHRLICHIA CHAFFEENSIS IGG <1:64 04/02/2018 Ehrlichia Chaffeensis Antibody Igm 120708 EHRLICHIA CHAFFEENSIS IGM < 1:16 04/02/2018 Lymes Disease Total Antibodies With Western Blot Refle x [id number] B. BURGDORFERI, IGG/IGM 0.23 03/30/2018 Lymes Disease Total Antibodies With Western Blot Refle x [id number] 03/30/2018 Cbc With Differential Ord2 WBC 5.04 [...] 28.7 pg 03/28/2018 Cbc With Differential Ord2 [place]% 16.1 % 03/28/2018 Cbc With Differential Ord2 [...] 1.37 K/ul 03/28/2018 Cbc With Differential Ord2 [place] ABS# 0.8 K/ul 03/28/2018 Cbc With Differential Ord2 Eos ABS# 0.1 K/ul 03/28/2018 Cbc With Differential Ord2 Baso ABS# 0.0 K/ul 03/28/2018 Comp Metabolic Fsy318 NA 136 mEq/L 02/16/2018 Comp Metabolic Kdh528 K 3.9 mEq/L 02/16/2018 Comp Metabolic Npm526 CL 103 mEq/L 02/16/2018 Comp Metabolic Zzi179 CO2 23.0 mEq/L 02/16/2018 Comp Metabolic Hzm930 AN ION GAP 14 02/16/2018 Comp Metabolic Liq573 GL UCOSE 133 mg/dL 02/16/2018 Comp Metabolic Uka849 Cr eat 0.8 mg/dL 02/16/2018 Comp Metabolic Zja086 eG FR 103 ml/min/1.73m2 01/26 Comp Metabolic Kyk576 BUN 7 mg/dL 02/16/2018 Comp Metabolic Nbi502 B/ C Ratio 8.4 Ratio 02/16/2018 Comp Metabolic Jio406 CA LCIUM 9.3 mg/dL 02/16/2018 Comp Metabolic Vme742 AL K PHOS 71 U/L 02/16/2018 Comp Metabolic Rum802 T(SGOT) 42 U/L 02/16/2018 Comp Metabolic Lcx291 AL T(SGPT) 69 U/L 02/16/2018 Comp Metabolic Xco784 BI LI T 0.3 mg/dL 02/16/2018 Comp Metabolic Nwj673 AL BUMIN 4.1 g/dL 02/16/2018 Comp Metabolic Iga355 TP RO 6.3 g/dL 02/16/2018 Comp Metabolic Gab754 GL OB 2.2 g/dL 02/16/2018 Comp Metabolic Qat257 A/ G Ratio 1.8 Ratio 02/16/2018 Comp Metabolic Gvf295 Os mo 272 mOsmo 02/16/2018 Free T4 Iad253 FREE T4 1.85 ng/dL 02/16/2018 Ferritin Ord22 FERRITIN 161.7 ng/mL 02/16/2018 Tsh Ord6 TSH (3rd IS) 0.01 uIU/mL 02/16/2018 Test(s) Not Perfromed [id number] Test(s) Not Performed Test(s) Not Performed. See Below: 02/16/2018 Test(s) Not Perfromed [id number] TEST NAME CBC 02/16/2018 Test(s) Not Perfromed [id number] Rejection Reason No Suitable Specimen Receive d 02/16/2018 Test(s) Not Perfromed [id number] COMMENT Please Recollect Sample 02/16/2018 Test(s) Not Perfromed [id number] Shaker Operator Fernando Goyal 02/16/2018 Tibc Ord40 Iron [...] 26.4 pg 01/05/2018 Cbc With Differential Ord2 [place]% 11.9 % 01/05/2018 Cbc With Differential Ord2 [...] 2.08 K/ul 01/05/2018 Cbc With Differential Ord2 [place] ABS# 0.6 K/ul 01/05/2018 Cbc With Differential Ord2 Eos ABS# 0.2 K/ul 01/05/2018 Cbc With Differential Ord2 Baso ABS# 0.0 K/ul 01/05/2018 Ferritin Ord22 FERRITIN 5.7 ng/mL 12/06/2017 Tibc Ord40 Iron 33 ug/dl 12/06/2017 Tibc Ord40 UIBC 431 ug/dL 12/06/2017 Tibc Ord40 TIBC 464 ug/dL 12/06/2017 Tibc Ord40 Fe-%Sat 7.1 % 12/06/2017 Free T4 Lxz059 FREE T4 1.82 ng/dL 12/01/2017 Tsh Ord6 [...] 27.0 pg 12/01/2017 Cbc With Differential Ord2 [place]% 10.6 % 12/01/2017 Cbc With Differential Ord2 [...] 1.92 K/ul 12/01/2017 Cbc With Differential Ord2 [place] ABS# 0.4 K/ul 12/01/2017 Cbc With Differential Ord2 Eos ABS# 0.2 K/ul 12/01/2017 Cbc With Differential Ord2 Baso ABS# 0.0 K/ul 12/01/2017 Comp Metabolic Gra155 NA 136 mEq/L 12/01/2017 Comp Metabolic Gbl047 K 4.6 mEq/L 12/01/2017 Comp Metabolic Gdv898 CL 102 mEq/L 12/01/2017 Comp Metabolic Pgl526 CO2 27.0 mEq/L 12/01/2017 Comp Metabolic Oye700 AN ION GAP 12 12/01/2017 Comp Metabolic Ggk224 GL UCOSE 90 mg/dL 12/01/2017 Comp Metabolic Yfg680 Cr eat 0.7 mg/dL 12/01/2017 Comp Metabolic Drp048 eG FR 123 ml/min/1.73m2 03/2018 Comp Metabolic Tev561 BUN 4 mg/dL 12/01/2017 Comp Metabolic Tqv380 B/ C Ratio 5.6 Ratio 12/01/2017 Comp Metabolic Bee465 CA LCIUM 9.0 mg/dL 12/01/2017 Comp Metabolic Fyb880 AL K PHOS 67 U/L 12/01/2017 Comp Metabolic Jgd360 T(SGOT) 30 U/L 12/01/2017 Comp Metabolic Mcj781 AL T(SGPT) 29 U/L 12/01/2017 Comp Metabolic Rut551 BI LI T 0.3 mg/dL 12/01/2017 Comp Metabolic Oxv963 AL BUMIN 4.1 g/dL 12/01/2017 Comp Metabolic Weg541 TP RO 6.1 g/dL 12/01/2017 Comp Metabolic Hvx103 GL OB 2.0 g/dL 12/01/2017 Comp Metabolic Vin802 A/ G Ratio 2.0 Ratio 12/01/2017 Comp Metabolic Sbr282 Os mo 268 mOsmo 12/01/2017 Comp Metabolic Wny163 NA 136 mEq/L 02/16/2016 Comp Metabolic Wdv634 K 4.2 mEq/L 02/16/2016 Comp Metabolic Njp773 CL 104 mEq/L 02/16/2016 Comp Metabolic Ljj950 CO2 20.0 mEq/L 02/16/2016 Comp Metabolic Hqj765 AN ION GAP 16 02/16/2016 Comp Metabolic Zyi481 GL UCOSE 71 mg/dL 02/16/2016 Comp Metabolic Xuj701 Cr eat 0.8 mg/dL 02/16/2016 Comp Metabolic Tho860 eG FR 113 ml/min/1.73m2 01/26 Comp Metabolic Hyz638 BUN 7 mg/dL 02/16/2016 Comp Metabolic Kzb759 B/ C Ratio 9.1 Ratio 02/16/2016 Comp Metabolic Sbb474 CA LCIUM 9.4 mg/dL 02/16/2016 Comp Metabolic Zay688 AL K PHOS 57 U/L 02/16/2016 Comp Metabolic Vqm817 T(SGOT) 30 U/L 02/16/2016 Comp Metabolic Cwb293 AL T(SGPT) 27 U/L 02/16/2016 Comp Metabolic Tsj971 BI LI T 0.2 mg/dL 02/16/2016 Comp Metabolic Apn780 AL BUMIN 4.4 g/dL 02/16/2016 Comp Metabolic Obm941 TP RO 6.5 g/dL 02/16/2016 Comp Metabolic Err311 GL OB 2.1 g/dL 02/16/2016 Comp Metabolic Nmi636 A/ G Ratio 2.1 Ratio 02/16/2016 Comp Metabolic Muu038 Os mo 268 mOsmo 02/16/2016 Free T4 Cif282 FREE T4 1.20 ng/dL 02/16/2016 Cbc With [...] 30.2 pg 02/16/2016 Cbc With Differential Ord2 [place]% 9.6 % 02/16/2016 Cbc With Differential Ord2 [...] 1.50 K/ul 02/16/2016 Cbc With Differential Ord2 [place] ABS# 0.5 K/ul 02/16/2016 Cbc With Differential Ord2 Eos ABS# 0.1 K/ul 02/16/2016 Cbc With Differential Ord2 Baso ABS# 0.0 K/ul 02/16/2016 Cbc With Differential Ord2 New Analyzer Notice Please note new ref ranges s tarting 12-09-2015 due to implemntation of new five part differential hematolgy analyzer. 02/16/2016 Tsh Ord6 hTSH II 0.08 uIU/mL 02/16/2016 Review of Systems System Result Effective Dates Constitutional fatigue 0 05/14/2019 Constitutional No recent [...] dyspnea 05/12/2016 Respiratory No cough Respiratory dyspnea /04/2016 Respiratory dyspnea on exertion 05/12/2016 Respiratory No [...] clear 09/03/2018 None Full Exam - General 1995 Eyes conjunctiva/eyelids Overall: cornea clear 09/03/2018 None [...] Procedure Codes Date THER/PROPH/DIAG INJ SC/IM CPT-4: 04989 12/27/2018 VITAMIN B12 INJECTION CPT-4: J3420 12/27/2018 PPPS, SUBSEQ VISIT CPT- 4: G0439 09/17/2018 Vital Signs Date Vital 05/14/2019 Blood Pressure 1: 120/70 Code: 8480-6 BMI: 36.2 Code: 15176-7 Heart Rate 1: 65 bpm Height: 5'6" SpO2: 98% Weight: 224 lbs 03/12/2019 Blood Pressure 1: 130/76 Code: 8480-6 BMI: 38.6 Code: 39951-8 Heart Rate 1: 83 bpm Height: 5'6" SpO2: 99% Weight: 239 lbs 01/07/2019 Blood Pressure 1: 124/80 Code: 8480-6 BMI: 38.3 Code: 32958-7 Heart Rate 1: 88 bpm Height: 5'6" SpO2: 97% Weight: 237 lbs 12/27/2018 Blood Pressure 1: 122/80 Code: 8480-6 BMI: 38.6 Code: 23871-3 Heart Rate 1: 72 bpm Height: 5'6" SpO2: 98% Weight: 239 lbs 11/05/2018 Blood Pressure 1: 122/64 Code: 8480-6 BMI: 37.4 Code: 09397-2 Heart Rate 1: 66 bpm Height: 5'6" SpO2: 97% Weight: 232 lbs 09/27/2018 Blood Pressure 1: 9266 Code: 8480-6 BMI: 37.9 Code: 55390-8 Heart Rate 1: 66 bpm Height: 5'6" SpO2: 98% Weight: 235 lbs 09/17/2018 Blood Pressure 1: 11072 Code: 8480-6 BMI: 38.3 Code: 01067-8 Heart Rate 1: 77 bpm Height: 5'6" SpO2: 95% Waist Measure (cm): 102 cm Weight: 237 lbs 09/03/2018 Blood Pressure 1: 12268 Code: 8480-6 BMI: 37.6 Code: 12883-2 Heart Rate 1: 78 bpm Height: 5'6" SpO2: 97% Weight: 233 lbs 07/05/2018 Blood Pressure 1: 94/62 Code: 8480-6 BMI: 36.8 Code: 12218-3 Heart Rate 1: 88 bpm Height: 5'6" SpO2: 99% Weight: 228 lbs 05/04/2018 Blood Pressure 1: 110/80 Code: 8480-6 BMI: 35.5 Code: 20687-6 Heart Rate 1: 80 bpm Height: 5'6" SpO2: 99% Weight: 220 lbs 03/28/2018 Blood Pressure 1: 11072 Code: 8480-6 BMI: 35.0 Code: 83588-1 Heart Rate 1: 80 bpm Height: 5'6" SpO2: 98% Temperature: 36.2 (C ) / 97.1 (F) Weight: 217 lbs 02/27/2018 Blood Pressure 1: 136/76 Code: 8480-6 BMI: 36.0 Code: 40859-0 Heart Rate 1: 80 bpm Height: 5'6" SpO2: 98% Weight: 223 lbs 12/01/2017 Blood Pressure 1: 132/72 Code: 8480-6 BMI: 33.4 Code: 58803-1 Heart Rate 1: 82 bpm Height: 5'6" SpO2: 97% Weight: 207 lbs 09/29/2017 Blood Pressure 1: 124/68 Code: 8480-6 BMI: 32.1 Code: 81646-5 Heart Rate 1: 77 bpm Height: 5'6" SpO2: 98% Weight: 199 lbs 08/11/2017 Blood Pressure 1: 154/82 Code: 8480-6 BMI: 31.6 Code: 93578-0 Heart Rate 1: 75 bpm Height: 5'6" SpO2: 98% Weight: 196 lbs 06/09/2017 Blood Pressure 1: 148/88 Code: 8480-6 BMI: 28.6 Code: 17474-7 Heart Rate 1: 88 bpm Height: 5'6" SpO2: 98% Weight: 177 lbs 04/07/2017 Blood Pressure 1: 140/84 Code: 8480-6 BMI: 30.3 Code: 32119-6 Heart Rate 1: 81 bpm Height: 5'6" SpO2: 99% Weight: 188 lbs 11/17/2016 Blood Pressure 1: 130/72 Code: 8480-6 Heart Rate 1: 63 bpm Height: SpO2: 93% Weight: 11/10/2016 Blood Pressure 1: 128/86 Code: 8480-6 BMI: 30.3 Code: 10932-8 Heart Rate 1: 84 bpm Height: 5'6" SpO2: 96% Weight: 188 lbs 10/14/2016 Heigh t: 5'6" 09/16/2016 Blood Pressure 1: 130/80 Code: 8480-6 BMI: 30.3 Code: 93976-5 Heart Rate 1: 67 bpm Height: 5'6" SpO2: 99% Weight: 188 lbs 08/19/2016 Blood Pressure 1: 110/62 Code: 8480-6 BMI: 29.9 Code: 54841-6 Heart Rate 1: 70 bpm Height: 5'6" SpO2: 97% Weight: 185 lbs 06/17/2016 Blood Pressure 1: 112/68 Code: 8480-6 BMI: 27.6 Code: 86040-9 Heart Rate 1: 61 bpm Height: 5'6" SpO2: 98% Weight: 171 lbs 05/12/2016 Blood Pressure 1: 130/76 Code: 8480-6 BMI: 29.7 Code: 23358-8 Heart Rate 1: 103 bpm Height: 5'6" SpO2: 98% Weight: 184 lbs 02/16/2016 Blood Pressure 1: 140/82 Code: 8480-6 BMI: 28.7 Code: 63699-9 Heart Rate 1: 66 bpm Height: 5'6" SpO2: 99% Weight: 178 lbs 11/17/2015 Blood Pressure 1: 120/74 Code: 8480-6 BMI: 29.4 Code: 13043-0 Heart Rate 1: 90 bpm Height: 5'6" SpO2: 94% Weight: 182 lbs 08/28/2015 Blood Pressure 1: 128/76 Code: 8480-6 BMI: 27.9 Code: 39091-3 Heart Rate 1: 80 bpm Height: 5'6" SpO2: 98% Weight: 173 lbs 05/28/2015 Blood Pressure 1: 122/70 Code: 8480-6 BMI: 27.0 Code: 19212-8 Heart Rate 1: 74 bpm Height: 5'6" SpO2: 98% Weight: 167 lbs 04/23/2015 Blood Pressure 1: 110/60 Code: 8480-6 BMI: 27.0 Code: 28342-3 Heart Rate 1: 68 bpm Height: 5'6" Weight: 167 lbs Functional Status No Functional Status data History of Present Illness Symptom Name Status Resu lt Effective Date Notes Limitation on Activities moderately limits activities 05/14/2019 [...] o ngoing 05/14/2019 None Location in the [facility] [place] [...] and Resolution ongoing 09/03/2018 None 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 P ATIENT, LEVEL III Diagnosis: Chronic pain syndrome[ICD10: G89.4] Diagnosis: Hypothyroidism, unspecified[ICD10: E03.9] Leydi Jacobo MD, [facility] CPT-4: 18880 05/14/2019 ([id number]) 36272 EST. P ATIENT, LEVEL III Diagnosis: Hypothyroidism, unspecified[ICD10: E03.9] Diagnosis: Chronic pain syndrome[ICD10: G89.4] Leydi Jacobo MD, [facility] CPT-4: 83602 03/12/2019 ([id number]) 69596 EST. P ATIENT, LEVEL IV Diagnosis: Chronic pain syndrome[ICD10: G89.4] Diagnosis: Hypothyroidism, unspecified[ICD10: E03.9] Diagnosis: Encounter for screening for lipoid disorders[ICD10: Z13.220] Diagnosis: Major depressive disorder, recurrent, moderate[ICD10: F33.1] Leydi Jacobo MD, [facility] CPT-4: 21922 01/07/2019 ([id number]) 35142 EST. P ATIENT, LEVEL III Diagnosis: Obstructive sleep apnea (adult) (pediatric)[ICD10: G47.33] Diagnosis: Hypothyroidism, unspecified[ICD10: E03.9] Diagnosis: Vitamin B12 deficiency anemia, unspecified[ICD10: D51.9] Leydi Jacobo MD, [facility] CPT-4: 58574 12/27/2018 ([id number]) 61729 EST. P ATIENT, LEVEL IV Diagnosis: Hypothyroidism, unspecified[ICD10: E03.9] Diagnosis: Major depressive disorder, recurrent, moderate[ICD10: F33.1] Diagnosis: Chronic pain syndrome[ICD10: G89.4] Leydi Jacobo MD, [facility] CPT-4: 76793 11/05/2018 ([id number]) 32267 EST. P ATIENT, LEVEL IV Diagnosis: Chronic pain syndrome[ICD10: G89.4] Diagnosis: Hypothyroidism, unspecified[ICD10: E03.9] Diagnosis: Other fatigue[ICD10: R53.83] Diagnosis: Other obesity due to excess calories[ICD10: E66.09] Diagnosis: Major depressive disorder, recurrent, moderate[ICD10: F33.1] [facility] CPT-4: 23655 09/27/2018 ([id number]) 29243 EST. P ATIENT, LEVEL III Diagnosis: Chronic pain syndrome[ICD10: G89.4] Leydi Jacobo MD, [facility] CPT-4: 80212 09/03/2018 ([id number]) 14805 EST. P ATIENT, LEVEL IV Diagnosis: Hypothyroidism, unspecified[ICD10: E03.9] Diagnosis: Major depressive disorder, recurrent, moderate[ICD10: F33.1] Diagnosis: Chronic pain syndrome[ICD10: G89.4] Diagnosis: Other male erectile dysfunction[ICD10: N52.8] Diagnosis: Other fatigue[ICD10: R53.83] Diagnosis: Encounter for screening for malignant neoplasm of prostate[ICD10: Z12.5] Leydi Jacobo MD, [facility] CPT-4: 14722 07/05/2018 ([id number]) 27460 EST. P ATIENT, LEVEL IV Diagnosis: Chronic pain syndrome[ICD10: G89.4] Diagnosis: Hypothyroidism, unspecified[ICD10: E03.9] Diagnosis: Major depressive disorder, recurrent, moderate[ICD10: F33.1] Leydi Jacobo MD, [facility] CPT-4: 27866 05/04/2018 47275 EST. PATIENT, LEVEL IV Diagnosis: Melena[ICD10: K92.1] Diagnosis: Other malaise[ICD10: R53.81] Diagnosis: Other fatigue[ICD10: R53.83] Diagnosis: Pain in unspecified joint[ICD10: M25.50] Diagnosis: Diarrhea, unspecified[ICD10: R19.7] Denae Jacobo MD, [facility] CPT-4: 15173 03/28/2018 06825 88755 EST. P ATIENT, LEVEL IV Diagnosis: Chronic pain syndrome[ICD10: G89.4] Diagnosis: Hypothyroidism, unspecified[ICD10: E03.9] Diagnosis: Other obesity due to excess calories[ICD10: E66.09] Diagnosis: Major depressive disorder, recurrent, moderate[ICD10: F33.1] Diagnosis: Obstructive sleep apnea (adult) (pediatric)[ICD10: G47.33] Leydi Jacobo MD, [facility] CPT-4: 73376 02/27/2018 08131 EST. PATIENT, LEVEL IV Diagnosis: Other specified hypothyroidism[ICD10: E03.8] Diagnosis: Chronic pain syndrome[ICD10: G89.4] Diagnosis: Major depressive disorder, recurrent, moderate[ICD10: F33.1] Denae Jacobo MD, [facility] CPT-4: 49306 12/01/2017 ([id number]) 30074 EST. P ATIENT, LEVEL IV Diagnosis: Chronic pain syndrome[ICD10: G89.4] Diagnosis: Alcohol dependence, uncomplicated[ICD10: F10.20] Diagnosis: Major depressive disorder, recurrent, moderate[ICD10: F33.1] Leydi Jacobo MD, [facility] CPT-4: 50292 09/29/2017 ([id number]) 01187 EST. P ATIENT, LEVEL IV Diagnosis: Chronic pain syndrome[ICD10: G89.4] Diagnosis: Alcohol dependence, uncomplicated[ICD10: F10.20] Diagnosis: Major depressive disorder, recurrent, moderate[ICD10: F33.1] Leydi Jacobo MD, [facility] CPT-4: 80111 08/11/2017 ([id number]) 94665 EST. P ATIENT, LEVEL III Diagnosis: Chronic pain syndrome[ICD10: G89.4] Diagnosis: Major depressive disorder, recurrent, moderate[ICD10: F33.1] Leydi Jacobo MD, [facility] CPT-4: 11190 06/09/2017 ([id number]) 32343 EST. P ATIENT, LEVEL III Diagnosis: Chronic pain syndrome[ICD10: G89.4] Diagnosis: Pain in left knee[ICD10: M25.562] Leydi Jacobo MD, [facility] CPT- 4: 06660 04/07/2017 48283 EST. PATIENT, LEVEL II Diagnosis: Superficial foreign body of left upper arm, initial encounter[ICD10: S40.852A] Diagnosis: Cellulitis of left upper limb[ICD10: L03.114] Leydi Jacobo MD, [facility] CPT-4: 39057 11/17/2016 24396 EST. PATIENT, LEVEL II Diagnosis: Cellulitis of left upper limb[ICD10: L03.114] Leydi Jacobo MD, [facility] CPT-4: 31040 11/10/2016 ([id number]) 34250 EST. P ATIENT, LEVEL III Diagnosis: Chronic pain syndrome[ICD10: G89.4] Diagnosis: Major depressive disorder, recurrent, moderate[ICD10: F33.1] Leydi Jacobo MD, [facility] CPT-4: 31778 10/14/2016 36212 EST. PATIENT, LEVEL IV Diagnosis: Psychophysiologic insomnia[ICD10: F51.04] Diagnosis: Major depressive disorder, recurrent, moderate[ICD10: F33.1] Diagnosis: Alcohol dependence, uncomplicated[ICD10: F10.20] Diagnosis: Chronic pain syndrome[ICD10: G89.4] Leydi Jacobo MD, [facility] CPT-4: 53790 09/16/2016 ([id number]) 59728 EST. P ATIENT, LEVEL III Diagnosis: Pain in left shoulder[ICD10: M25.512] Diagnosis: Major depressive disorder, recurrent, moderate[ICD10: F33.1] Diagnosis: Psychophysiologic insomnia[ICD10: F51.04] Leydi Jacobo MD, [facility] CPT-4: 10541 08/19/2016 ([id number]) 38188 EST. P ATIENT, LEVEL III Diagnosis: Gastro-esophageal reflux disease without esophagitis[ICD10: K21.9] Diagnosis: Hypothyroidism, unspecified[ICD10: E03.9] Leydi Jacobo MD, [facility] CPT-4: 84468 06/17/2016 ([id number]) 10047 EST. P ATIENT, LEVEL IV Diagnosis: Gastro-esophageal reflux disease without esophagitis[ICD10: K21.9] Diagnosis: Hypothyroidism, unspecified[ICD10: E03.9] Diagnosis: Major depressive disorder, recurrent, moderate[ICD10: F33.1] Leydi Jacobo MD, [facility] CPT-4: 49454 05/12/2016 ([id number]) 08433 EST. P ATIENT, LEVEL III Diagnosis: Cervicalgia[ICD10: M54.2] Diagnosis: Hypothyroidism, unspecified[ICD10: E03.9] Diagnosis: Other male erectile dysfunction[ICD10: N52.8] Leydi Jacobo MD, [facility] CPT-4: 61398 02/16/2016 ([id number]) 61680 EST. P ATIENT, LEVEL III Diagnosis: Lumbago with sciatica, unspecified side[ICD10: M54.40] Diagnosis: Other male erectile dysfunction[ICD10: N52.8] [facility] CPT-4: 16071 11/17/2015 ([id number]) 75835 EST. P ATIENT, LEVEL III Diagnosis: Lumbago with sciatica, unspecified side[ICD10: M54.40] Diagnosis: Hypothyroidism, unspecified[ICD10: E03.9] Diagnosis: Other male erectile dysfunction[ICD10: N52.8] [facility] CPT-4: 36654 08/28/2015 ([id number]) 84389 EST. P ATIENT, LEVEL III Diagnosis: Back pain, chronic[ICD9: 724.5] Diagnosis: Depression[ICD9: 311] Diagnosis: Hypothyroid[ICD9: 244.9] Diagnosis: Bilateral calf pain[ICD9: 729.5] Julieta Jacobo MD, [facility] CPT-4: 24560 05/28/2015 ([id number]) [facility] Diagnosis: Back pain, chronic[ICD9: 724.5] Diagnosis: Depression[ICD9: 311] Diagnosis: Hypothyroid[ICD9: 244.9] [facility] CPT-4: 02296 04/23/2015 Plan of Care Planned Activity Notes C odes Status Date Visit Plan: Chronic Back pain - the [...] termination from this medical practice. Hypothyroidism- seeing temporary data entry clerk 05/14/2019 Appointment: Leydi Hightower WPtel: [address] [place], [place] [phone] (30 min) [facility] 05/14/2019 Patient Education: Patient Medication Summary Completed 05/14/2019 Visit Plan: Hypothyroidism -refer kaitlynn Yan at [facility] [place] Chronic Pain Syndrome - pt has chronic pain - has been maintained on current medications, has not sought out other medications, only uses PRN pain medications as directed, and understands the consequences of over-medication. 03/12/2019 Appointment: Leydi Hightower WPtel: [phone] (30 min) Complex 03/12/2019 Patient Education: Patient Medication Summary Completed 03/12/2019 Appointment: Leydi Hightower WPtel: [phone] (30 min) Complex 03/05/2019 Visit Plan: Chronic [...] thyroid ultrasound 01/07/2019 Appointment: Leydi Hightower WPtel: [phone] (30 min) Complex 01/07/2019 Patient Education: Patient [...] the office 12/27/2018 Appointment: Leydi Hightower WPtel: [address] [place], [place] [phone] (15 min) Moderate 12/27/2018 Patient Education: Patient [...] medications. 11/05/2018 Appointment: [facility]el[facility] [phone] [phone] (30 min) Complex 11/05/2018 Patient Education: Patient [...] of control. 09/27/2018 Appointment: [facility]Ptel[facility] [phone] [phone] (15 min) Moderate 09/27/2018 Patient Education: Patient [...] paperwork for health care surrogate. 09/17/2018 Appointment: Lyedi [facility]ightower [facility]Ptel[facility] [phone] [phone] [facility] - Annual Wellness Visit 09/17/2018 Patient Education: Patient Medication Summary Completed 09/17/2018 Visit Plan: Chronic Pain Syndrome - pt has chronic pain - has been maintained on current medications, has not sought out other medications, only uses PRN pain medications as directed, and understands the consequences of over-medication. 09/03/2018 Appointment: [facility] [phone] [phone] (30 min) Complex 09/03/2018 Patient Education: Patient [...] exposure. No change in current medications. Fatigue-weight unih-UG-pawwy labs including testosterone level 07/05/2018 Visit Plan: [...] exposure. No change in current medications. Fatigue-weight tgra-HX-eklah labs including testosterone level 07/05/2018 Appointment: Leydi Hightower WPtel: [phone] [phone] (15 min) Moderate 07/05/2018 Patient Education: Patient [...] BID 05/04/2018 Appointment: [facility]el[facility] [phone] [phone] (15 min) Moderate 05/04/2018 Patient Education: Patient [...] pain. 03/28/2018 Appointment: Denae Martínez [facility]el[facility] [phone] [phone] (30 min) Complex 03/28/2018 Appointment: Nurse Visit [...] time. 02/27/2018 Appointment: [facility]ower [facility]Ptel[facility] [phone] [phone] (15 min) Moderate 02/27/2018 Patient Education: Patient [...] of control. 12/01/2017 Appointment: Denae Martínez [facility]Ptel: [phone] [facility] (30 min) Complex 12/01/2017 Patient Education: Patient [...] outpatient treatment 09/29/2017 Appointment: Leydi Hightower WPtel: [phone] (30 min) Complex 09/29/2017 Patient Education: Patient [...] cons ider 08/11/2017 Appointment: Leydi Hightower WPtel: [address] [place], [place] [phone] (30 min) Complex 08/11/2017 Patient Education: Patient [...] current medications. 06/09/2017 Appointment: Leydi Hightower WPtel: [address] [place], [place] [phone] (30 min) Complex 06/09/2017 Patient Education: Patient [...] completely resolve 11/17/2016 Appointment: Leydi Hightower WPtel: [phone] (30 min) Complex 11/17/2016 Patient Education: Patient [...] in pain. 11/10/2016 Appointment: Leydi Hightower WPtel: [address] [place], [place] [phone] (30 min) Complex 11/10/2016 Patient Education: Patient [...] of plan. 10/14/2016 Appointment: Leydi Hightower WPtel: [address] [place], [place] [phone] (30 min) Complex 10/14/2016 Patient Education: Patient [...] will try 09/16/2016 Appointment: Leydi Hightower WPtel: [address] [place], [place] [phone] (30 min) Complex 09/16/2016 Patient Education: Patient Medication Summary Completed 09/16/2016 Visit Plan: Left shoulder and elbow pain-xray shoulder and elbow Tvptfckaon-rmhcmjmg-rvxndjmyeikl-d/c trazodone-start remeron at bedtime Pt has been [...] this patient. 08/19/2016 Appointment: Leydi Hightower WPtel: [address] [place], [place] [phone] [place] [address] (30 min) Complex 08/19/2016 Patient Education: Patient [...] Obesity Completed 06/17/2016 Appointment: Leydi Hightower WPtel: [address] [place], [place] [phone] [address] (30 min) Complex 06/09/2016 Visit Plan: [...] of control. 05/12/2016 Appointment: Leydi Hightower WPtel: [phone] (30 min) Complex 05/12/2016 Patient Education: Patient [...] pain- Pain medications are managed by Dr. Perze. Bilateral Lower Leg Pain- Physical exam negative. Check D-Dimer today in office. 05/28/2015 Appointment: Leydi Hightower WPtel: [phone] (30 min) Complex 05/28/2015 Patient Education: Patient [...] Care Plan: COMPLETE CBC AUTOMATED LOINC : 40639-9 Ordered 04/23/2015 Instructions Comment DECREASE LEVOTHYROXI NE [...] termination from this medical practice. Hypothyroidism- seeing temporary data entry clerk . Chronic Pain Syndr ome - pt [...] exposure. No change in current medications. Fatigue-weight dlqr-NU-pkncu labs including testosterone level . Chronic Pain [...] exposure. No change in current medications. Fatigue-weight zdde-JK-bjpkn labs including testosterone level Get Immodium over [...] and elbow pain-xray shou lder and elbow Owejhqwuap-ikwtixxl-hhtszjwlriru-d/c trazodone-start remeron at bedtime Pt has been [...] Hypothyroidism -re [place]ierra to Noemi Yan at [facility] Chronic Pain Syndrome - pt has [...] LABS AT NEXT A PPT INCREASE ACID WEB APPLICATIONS ARCHITECT TO TWICE DAILY . Chronic Pain Syndrome [...]
--- OUTSIDE RECORDS SUMMARY | 2020-03-17 14:35 | XMS REPORT | CCD ---
Author Author Thai Castillo Organization Sara Jacobo MD, [facility] Address [address] [place] [address] Phone Care Team Providers Care Rock Contractor Name Role Phone PP Unavailable CCM Unavailable Summary Purpose Interface Exchange Insurance Providers Payer name Policy type / Coverage type Covered green party ID Effective Begin Date Effective End Date WPS Medicare Part B Medicare Part B [id number] Unknown [facility] icare Part B [id number] Un known Family history Father Diagnosis Age At Onset Colon cancer Unknown Social History Social History Element Codes Description Effective Dates Employment Unknown [employer] unemployed Before disability 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 On Disability Unknown Yes 09/27/2018 Marital status Unknown D ivorced 04/23/[address]: 036811274 Never smoker 04/23/[address]: 977397 Currently drinks alcohol occasionally drinks 04/23/2015 Allergies, [...] Date Stop Date Sta tus Fill Instructions doxycycline hyclate 100 mg tablet RxNorm: 3420091 1 Tablet(s) PO BID 06/21/2019 07/20/2019 Active Provigil 100 mg tablet RxNorm: 511571 1 Tablet(s) PO daily 06/12/2019 08/10/2019 Active Provigil 100 mg tablet RxNorm: 997787 1 Tablet(s) PO daily 06/12/2019 06/11/2019 Inactive baclofen 10 mg tablet RxNorm: 907395 TAKE ONE TABLET BY MOUTH THREE TIMES A D AY NEEDED 05/28/2019 09/24/2019 Active tizanidine 4 mg tablet RxNorm: 184403 TAKE ONE TABLET BY MOUTH THREE TIMES A D AY NEEDED 05/28/2019 09/24/2019 Active diclofenac sodium 75 mg tablet,delayed release RxNorm: 923494 TAKE ONE TABLET BY [facility] TWICE A DAY 05/21/2019 10/17/2019 Active oxymorphone 5 mg tablet RxNorm: 327381 1 Tablet(s) PO Q6 PRN 05/14/2019 07/12/2019 Active morphine 30 mg table t, crush resistant, extended release RxNorm: 6086980 1 Tablet(s) PO BID 05/14/2019 06/12/2019 Inactive doxycycline hyclate 100 mg tablet RxNorm: 2508983 1 Tablet(s) PO BID 05/14/2019 05/23/2019 Inactive morphine 30 mg table t, crush resistant, extended release RxNorm: 4756046 1 Tablet(s) PO BID 05/07/2019 05/13/2019 Inactive levothyroxine 200 mc g tablet RxNorm: 707344 1 Tablet(s) PO daily TAKE ONE TABLET BY MOUTH DAILY 03/12/2019 09/07/2019 Active Updated script trazodone 50 mg tablet RxNorm: 087480 1.5 Tablet(s) PO QHS TAKE ONE TABLET BY MOUTH EVERY NIGHT AT BEDTIME AND ONE-HALF TABLET BY MOUTH NEEDED 03/12/2019 06/09/2019 Inactive morphine 30 mg table t, crush resistant, extended release RxNorm: 2638839 1 Tablet(s) PO BID 03/12/2019 04/10/2019 Inactive oxymorphone 5 mg tablet RxNorm: 365816 1 Tablet(s) PO Q6 PRN 03/12/2019 05/10/2019 Inactive doxycycline hyclate 100 mg tablet RxNorm: 5307427 1 Tablet(s) PO BID 03/12/2019 03/21/2019 Inactive morphine 30 mg table t, crush resistant, extended release RxNorm: 7455159 1 Tablet(s) PO BID 03/06/2019 03/11/2019 Inactive tizanidine 4 mg tablet RxNorm: 953684 TAKE ONE TABLET BY MOUTH THREE TIMES A D AY NEEDED 02/26/2019 05/26/2019 Inactive diclofenac sodium 75 mg tablet,delayed release RxNorm: 754159 TAKE ONE TABLET BY [place] TWICE A DAY 02/18/2019 05/18/2019 Inactive Protonix 40 mg table t,delayed release RxNorm: 411874 TAKE ONE TABLET BY [place] DAILY 02/06/2019 09/03/2019 Ac tive trazodone 50 mg tablet RxNorm: 980252 TAKE ONE TABLET BY MOUTH EVERY NIGHT AT BEDTIME AND ONE-HALF TABLET BY MOUTH NEEDED 01/14/2019 03/11/2019 Inactive oxymorphone 5 mg tablet RxNorm: 324443 1 Tablet(s) PO Q6 PRN 01/07/2019 03/07/2019 Inactive morphine 30 mg table t, crush resistant, extended release RxNorm: 2447550 1 Tablet(s) PO BID 01/07/2019 03/05/2019 Inactive doxycycline hyclate 100 mg tablet RxNorm: 5658258 1 Tablet(s) PO BID 01/01/2019 01/10/2019 Inactive cyanocobalamin (vit B-12) 1,000 mcg/mL injection solution RxNorm: 010225 1 Milliliter(s) Inj 12/27/2018 12/27/2018 Inactive baclofen 10 mg tablet RxNorm: 860567 TAKE ONE TABLET BY MOUTH THREE TIMES A D AY NEEDED 11/29/2018 03/28/2019 Inactive Request already responded t o by other means (e.g. phone or fax) baclofen 10 mg tablet RxNorm: 451573 Tablet(s) TAKE ONE TABLET BY MOUTH THREE TIMES A DAY NEEDED 11/28/2018 11/28/2018 Inactive doxycycline hyclate 100 mg tablet RxNorm: 6401195 1 Tablet(s) PO BID 11/14/2018 11/23/2018 Inactive trazodone 50 mg tablet RxNorm: 827308 TAKE ONE TABLET BY MOUTH EVERY NIGHT AT BEDTIME AND ONE-HALF TABLET BY MOUTH NEEDED 11/12/2018 12/21/2018 Inactive tizanidine 4 mg tablet RxNorm: 924415 TAKE ONE TABLET BY MOUTH THREE TIMES A D AY NEEDED 10/22/2018 02/18/2019 Inactive diclofenac sodium 75 mg tablet,delayed release RxNorm: 427945 TAKE ONE TABLET BY [facility] TWICE A DAY 10/15/2018 02/11/2019 Inactive Lasix 20 mg tablet RxNorm: 199619 1 Tablet(s) PO daily as needed 10/10/2018 11/08/2018 In active potassium chloride E R 10 mEq tablet,extended release RxNorm: 362738 1 Tablet(s) PO daily as needed to take with lasix for inceased edema 10/10/2018 11/08/2018 Inactive potassium chloride E R 10 mEq tablet,extended release RxNorm: 134116 1 Tablet(s) PO daily as needed to take with lasix for inceased edema 10/10/2018 10/09/2018 Inactive Lasix 20 mg tablet RxNorm: 947366 1 Tablet(s) PO daily as needed 10/10/2018 10/09/2018 In active doxycycline hyclate 100 mg tablet RxNorm: 0982684 1 Tablet(s) PO BID 09/27/2018 10/10/2018 Inactive Remeron 15 mg tablet RxNorm: 376002 1.5 Tablet(s) PO QPM TAKE ONE TABLET BY MOUTH EVERY NIGHT AT BEDTIME 09/18/2018 12/16/2018 Inactive baclofen 10 mg tablet RxNorm: 613207 TAKE ONE TABLET BY MOUTH THREE TIMES A D AY NEEDED 09/12/2018 11/10/2018 Inactive Remeron 15 mg tablet RxNorm: 261671 1.5 Tablet(s) PO QPM TAKE ONE TABLET BY MOUTH EVERY NIGHT AT BEDTIME 09/03/2018 09/17/2018 Inactive oxymorphone 5 mg tablet RxNorm: 927793 1 Tablet(s) PO Q6 PRN 09/03/2018 11/01/2018 Inactive morphine 30 mg table t, crush resistant, extended release RxNorm: 4296335 1 Tablet(s) PO BID 09/03/2018 11/01/2018 Inactive trazodone 50 mg tablet RxNorm: 532324 TAKE ONE TABLET BY MOUTH EVERY NIGHT AT BEDTIME AND ONE-HALF TABLET BY MOUTH NEEDED 09/03/2018 10/12/2018 Inactive tizanidine 4 mg tablet RxNorm: 209774 TAKE ONE TABLET BY MOUTH THREE TIMES A D AY NEEDED 08/20/2018 10/18/2018 Inactive Protonix 40 mg table t,delayed release RxNorm: 781743 TAKE ONE TABLET BY [facility] DAILY 08/10/2018 02/05/2019 In active Carafate 1 gram tablet RxNorm: 369691 TAKE ONE TABLET BY MOUTH BEFORE MEALS AN D AT BEDTIME NEEDED FOR HEARTBURN 07/31/2018 12/27/2018 Inactive Protonix 40 mg table t,delayed release RxNorm: 076216 1 Tablet(s) BID 07/24/2018 07/23/2018 Inactive Protonix 40 mg table t,delayed release RxNorm: 750943 1 Tablet(s) daily 07/24/2018 08/09/2018 In active liothyronine 5 mcg t ablet RxNorm: 294016 TAKE ONE TABLET BY [facility] DAILY 07/19/2018 01/09/2019 In active baclofen 10 mg tablet RxNorm: 383348 TAKE ONE TABLET BY MOUTH THREE TIMES A D AY NEEDED 07/12/2018 09/09/2018 Inactive levothyroxine 175 mc g tablet RxNorm: 313269 1 Tablet(s) PO daily 07/11/2018 03/11/2019 Inactive Vitamin D2 50,000 un it capsule RxNorm: 7481381 1 Capsule(s) PO QW 07/11/2018 10/02/2018 Inactive trazodone 50 mg tablet RxNorm: 941731 TAKE ONE TABLET BY MOUTH EVERY NIGHT AT BEDTIME AND ONE-HALF TABLET BY MOUTH NEEDED 07/11/2018 08/19/2018 Inactive Vitamin D2 50,000 un it capsule RxNorm: 3430990 1 Capsule(s) PO QW 07/11/2018 07/10/2018 Inactive morphine 30 mg table t, crush resistant, extended release RxNorm: 2920097 1 Tablet(s) PO BID 07/05/2018 09/02/2018 Inactive oxymorphone 5 mg tablet RxNorm: 841301 1 Tablet(s) PO Q6 PRN 07/05/2018 09/02/2018 Inactive bupropion HCl XL 300 mg 24 hr tablet, extended release RxNorm: 007272 TAKE ONE TABLET BY MOUTH DAILY 06/27/2018 12/23/2018 Inactive Remeron 15 mg tablet RxNorm: 900519 TAKE ONE TABLET BY MOUTH EVERY NIGHT AT BEDTIME 06/27/2018 09/02/2018 Inactive tizanidine 4 mg tablet RxNorm: 537126 TAKE ONE TABLET BY MOUTH THREE TIMES A D AY NEEDED 06/20/2018 08/18/2018 Inactive doxycycline hyclate 100 mg tablet RxNorm: 0843952 1 Tablet(s) PO BID 06/18/2018 07/01/2018 Inactive Protonix 40 mg table t,delayed release RxNorm: 082448 TAKE ONE TABLET BY [place] DAILY 06/11/2018 07/23/2018 In active doxycycline hyclate 100 mg tablet RxNorm: 1609453 1 Tablet(s) PO BID 05/22/2018 06/04/2018 Inactive baclofen 10 mg tablet RxNorm: 497826 TAKE ONE TABLET BY MOUTH THREE TIMES A D AY NEEDED 05/14/2018 07/11/2018 Inactive diclofenac sodium 75 mg tablet,delayed release RxNorm: 897000 TAKE ONE TABLET BY [place] UT TWICE A DAY 05/07/2018 10/03/2018 Inactive oxymorphone 5 mg tablet RxNorm: 981161 1 Tablet(s) PO Q6 PRN 05/04/2018 07/02/2018 Inactive morphine 30 mg table t, crush resistant, extended release RxNorm: 5957029 1 Tablet(s) PO BID 05/04/2018 07/02/2018 Inactive doxycycline hyclate 100 mg tablet RxNorm: 011162 1 Tablet(s) PO BID 04/24/2018 04/23/2018 Inactive doxycycline hyclate 100 mg tablet RxNorm: 4262949 1 Tablet(s) PO BID 04/24/2018 05/03/2018 Inactive baclofen 10 mg tablet RxNorm: 005075 TAKE ONE TABLET BY MOUTH THREE TIMES A D AY NEEDED 04/13/2018 05/12/2018 Inactive trazodone 50 mg tablet RxNorm: 589938 TAKE ONE TABLET BY MOUTH EVERY NIGHT AT BEDTIME AND ONE-HALF TABLET BY MOUTH NEEDED 04/09/2018 06/07/2018 Inactive Questran 4 gram powd er for susp in a packet RxNorm: 784919 1 packet PO BID 04/06/2018 06/04/2018 In active Questran 4 gram powd er for susp in a packet RxNorm: 428737 1 packet PO BID 04/06/2018 04/05/2018 In active Carafate 1 gram tablet RxNorm: 178024 1 Tablet(s) PO AC & HS as needed for hea rtburn 03/28/2018 04/26/2018 Inactive baclofen 10 mg tablet RxNorm: 114566 TAKE ONE TABLET BY MOUTH THREE TIMES A D AY NEEDED 03/16/2018 04/12/2018 Inactive Protonix 40 mg table t,delayed release RxNorm: 945777 TAKE ONE TABLET BY [facility] DAILY 03/16/2018 06/10/2018 In active oxymorphone 5 mg tablet RxNorm: 121249 1 Tablet(s) PO Q6 PRN 02/27/2018 04/27/2018 Inactive morphine 30 mg table t, crush resistant, extended release RxNorm: 4890515 1 Tablet(s) PO BID 02/27/2018 04/27/2018 Inactive Belviq XR 20 mg tabl et,extended release RxNorm: 3375796 1 Tablet(s) PO daily 02/27/2018 01/06/2019 In active levothyroxine 100 mc g tablet RxNorm: 195593 1 Tablet(s) PO daily 02/27/2018 07/10/2018 Inactive take with 88mcg to = 188mcg daily levothyroxine 88 mcg tablet RxNorm: 211245 1 Tablet(s) PO daily 02/27/2018 07/10/2018 Inactive take with 100mcg to = 188mcg daily morphine 30 mg table t, crush resistant, extended release RxNorm: 6940440 1 Tablet(s) PO BID 02/14/2018 02/26/2018 Inactive levothyroxine 200 mc g tablet RxNorm: 718328 Tablet(s) TAKE ONE TA BLET BY MOUTH DAILY 01/18/2018 02/26/2018 Inactive Updated script baclofen 10 mg tablet RxNorm: 038802 Tablet(s) TAKE ONE TABLET BY MOUTH THREE TIMES A DAY NEEDED 01/15/2018 02/13/2018 Inactive morphine 30 mg table t, crush resistant, extended release RxNorm: 1696230 1 Tablet(s) PO BID 01/15/2018 02/13/2018 Inactive tizanidine 4 mg tablet RxNorm: 916553 TAKE ONE TABLET BY MOUTH THREE TIMES A D AY NEEDED 01/02/2018 04/01/2018 Inactive Request already responded t o by other means (e.g. phone or fax) bupropion HCl XL 300 mg 24 hr tablet, extended release RxNorm: 554763 TAKE ONE TABLET BY MOUTH DAILY 12/29/2017 06/26/2018 Inactive Tamiflu 75 mg capsule RxNorm: 346427 1 Capsule(s) PO BID 12/27/2017 12/31/2017 Inactive Tamiflu 75 mg capsule RxNorm: 116966 1 Capsule(s) PO BID 12/27/2017 12/26/2017 Inactive tizanidine 4 mg tablet RxNorm: 278578 1 Tablet(s) PO TID as needed 12/25/2017 01/01/2018 Inactive levothyroxine 175 mc g tablet RxNorm: 933055 1 Tablet(s) PO daily 12/14/2017 12/13/2017 Inactive levothyroxine 175 mc g tablet RxNorm: 727080 1 Tablet(s) PO daily 12/14/2017 01/17/2018 Inactive baclofen 10 mg tablet RxNorm: 430760 Tablet(s) TAKE ONE TABLET BY MOUTH THREE TIMES A DAY NEEDED 12/13/2017 01/11/2018 Inactive baclofen 10 mg tablet RxNorm: 806077 TAKE ONE TABLET BY MOUTH THREE TIMES A D AY NEEDED 12/13/2017 12/12/2017 Inactive morphine 30 mg table t, crush resistant, extended release RxNorm: 1932810 1 Tablet(s) PO BID 12/12/2017 01/14/2018 Inactive clonazepam 1 mg tablet RxNorm: 022903 1/2 Tablet(s) PO daily 12/01/2017 08/27/2018 Inactive trazodone 50 mg tablet RxNorm: 928027 1/2 to 1 Tablet(s) QHS as needed 12/01/2017 03/30/2018 In active Opana ER 15 mg table t, crush resistant, extended release RxNorm: 826706 1 Tablet(s) PO Q12H 12/01/2017 02/13/2018 Inactive oxymorphone 5 mg tablet RxNorm: 629337 1 Tablet(s) PO Q6 PRN 12/01/2017 02/26/2018 Inactive Remeron 15 mg tablet RxNorm: 029330 Tablet(s) TAKE ONE TABLET BY MOUTH EVERY NIGHT AT BEDTIME 12/01/2017 02/28/2018 Inactive trazodone 50 mg tablet RxNorm: 593566 1/2 Tablet(s) as needed 1 Tablet(s) PO Q HS 12/01/2017 11/30/2017 In active clonazepam 1 mg tablet RxNorm: 405865 1/2 Tablet(s) PO daily 11/30/2017 11/30/2017 Inactive Remeron 15 mg tablet RxNorm: 024209 TAKE ONE TABLET BY MOUTH EVERY NIGHT AT BEDTIME 11/29/2017 11/30/2017 Inactive levothyroxine 200 mc g tablet RxNorm: 769894 TAKE ONE TABLET BY [facility] DAILY 11/15/2017 12/13/2017 In active baclofen 10 mg tablet RxNorm: 320290 TAKE ONE TABLET BY MOUTH THREE TIMES A D AY NEEDED 11/07/2017 12/06/2017 Inactive diclofenac sodium 75 mg tablet,delayed release RxNorm: 414182 1 Tablet(s) PO BID 11/07/2017 05/05/2018 In active liothyronine 5 mcg t ablet RxNorm: 281142 TAKE ONE TABLET BY [facility] DAILY 10/27/2017 07/18/2018 In active tizanidine 4 mg tablet RxNorm: 057499 1 Tablet(s) PO TID as needed 10/18/2017 12/16/2017 Inactive oxymorphone 5 mg tablet RxNorm: 127686 1 Tablet(s) PO Q6 PRN 09/29/2017 11/27/2017 Inactive morphine 30 mg table t, crush resistant, extended release RxNorm: 9033987 1 Tablet(s) PO BID 09/29/2017 11/28/2017 Inactive baclofen 10 mg tablet RxNorm: 579217 1 Tablet(s) PO TID as needed 09/11/2017 10/10/2017 Inactive baclofen 10 mg tablet RxNorm: 817416 1 Tablet(s) PO TID as needed 08/11/2017 09/09/2017 Inactive Opana ER 15 mg table t, crush resistant, extended release RxNorm: 619076 1 Tablet(s) PO Q12H 08/11/2017 09/28/2017 Inactive Remeron 15 mg tablet RxNorm: 626442 TAKE ONE TABLET BY MOUTH EVERY NIGHT AT BEDTIME 08/02/2017 10/30/2017 Inactive oxymorphone 5 mg tablet RxNorm: 517514 1 Tablet(s) PO Q6 PRN 08/02/2017 09/28/2017 Inactive Opana ER 5 mg tablet , crush resistant, extended release RxNorm: 205160 1 Tablet(s) PO Q6 PRN 08/01/2017 08/10/2017 Inactive Protonix 40 mg table t,delayed release RxNorm: 019883 TAKE ONE TABLET BY [place] UT DAILY 06/26/2017 06/25/2017 In active Protonix 40 mg table t,delayed release RxNorm: 177639 TAKE ONE TABLET BY [facility] DAILY 06/26/2017 02/05/2019 In active bupropion HCl XL 300 mg 24 hr tablet, extended release RxNorm: 254066 TAKE ONE TABLET BY MOUTH DAILY 06/13/2017 12/09/2017 Inactive tizanidine 4 mg tablet RxNorm: 560062 1 Tablet(s) PO TID as needed 06/13/2017 06/12/2017 Inactive tizanidine 4 mg tablet RxNorm: 236858 1 Tablet(s) PO TID as needed 06/13/2017 09/10/2017 Inactive baclofen 10 mg tablet RxNorm: 594561 1 Tablet(s) PO TID as needed 06/13/2017 07/12/2017 Inactive Opana ER 15 mg table t, crush resistant, extended release RxNorm: 639929 1 Tablet(s) PO Q12H 06/09/2017 08/07/2017 Inactive Opana ER 5 mg tablet , crush resistant, extended release RxNorm: 534409 1 Tablet(s) PO Q6 PRN 06/09/2017 07/31/2017 Inactive diclofenac sodium 75 mg tablet,delayed release RxNorm: 875230 1 Tablet(s) PO BID 06/09/2017 09/06/2017 In active clonazepam 1 mg tablet RxNorm: 852332 1/2 Tablet(s) PO daily 05/24/2017 11/18/2017 Inactive bupropion HCl XL 300 mg 24 hr tablet, extended release RxNorm: 336344 TAKE ONE TABLET BY MOUTH DAILY 03/16/2017 06/12/2017 Inactive clonazepam 1 mg tablet RxNorm: 495672 1/2 Tablet(s) PO daily 02/22/2017 05/18/2017 Inactive Remeron 15 mg tablet RxNorm: 296120 TAKE ONE TABLET BY MOUTH EVERY NIGHT AT BEDTIME 02/06/2017 2017 Inactive Protonix 40 mg table t,delayed release RxNorm: 273064 TAKE ONE TABLET BY [facility] DAILY 01/26/2017 06/24/2017 In active mupirocin 2 % topica l ointment RxNorm: 009794 1 Application TOP BID 01/12/2017 01/18/2017 Inactive Bactrim DS 800 mg-16 0 mg tablet RxNorm: 857962 1 Tablet(s) PO BID 11/17/2016 11/23/2016 Inactive mupirocin 2 % topica l ointment RxNorm: 260363 1 Application TOP BID 11/10/2016 11/16/2016 Inactive Bactrim DS 800 mg-16 0 mg tablet RxNorm: 186355 1 Tablet(s) PO BID 11/10/2016 11/16/2016 Inactive bupropion HCl XL 300 mg 24 hr tablet, extended release RxNorm: 740444 TAKE ONE TABLET BY MOUTH DAILY 11/07/2016 03/06/2017 Inactive liothyronine 5 mcg t ablet RxNorm: 678357 1 Tablet(s) PO daily 11/01/2016 10/26/2017 Inactive levothyroxine 200 mc g tablet RxNorm: 113337 1 Tablet(s) PO daily 10/04/2016 09/28/2017 Inactive clonazepam 1 mg tablet RxNorm: 364611 1/2 Tablet(s) PO daily 09/21/2016 03/18/2017 Inactive clonazepam 1 mg tablet RxNorm: 018931 1/2 Tablet(s) PO daily 09/16/2016 09/20/2016 Inactive Abilify 2 mg tablet RxNorm: 330331 1 Tablet(s) PO daily 09/16/2016 10/13/2016 Inactive trazodone 50 mg tablet RxNorm: 173689 1/2 Tablet(s) as needed 1 Tablet(s) PO Q HS 09/16/2016 01/13/2017 In active morphine 15 mg immed iate release tablet RxNorm: 376368 1 Tablet(s) PO Q6 PRN 09/16/2016 04/06/2017 In active baclofen 10 mg tablet RxNorm: 912116 1 Tablet(s) PO TID as needed 09/16/2016 06/12/2017 Inactive MS Contin 30 mg tabl et,extended release RxNorm: 195763 1 Tablet(s) PO Q12H 09/16/2016 04/06/2017 In active Remeron 15 mg tablet RxNorm: 354683 1 Tablet(s) PO QHS 08/19/2016 09/15/2016 Inactive levothyroxine 200 mc g tablet RxNorm: 866992 1 Tablet(s) PO daily 08/11/2016 10/03/2016 Inactive bupropion HCl XL 300 mg 24 hr tablet, extended release RxNorm: 563769 TAKE ONE TABLET BY MOUTH DAILY 08/11/2016 11/06/2016 Inactive Protonix 40 mg table t,delayed release RxNorm: 414888 1 Tablet(s) PO daily 06/17/2016 12/13/2016 In active bupropion HCl XL 300 mg 24 hr tablet, extended release RxNorm: 921273 1 Tablet(s) PO daily 05/12/2016 07/10/2016 Inactive bupropion HCl XL 300 mg 24 hr tablet, extended release RxNorm: 441711 1 Tablet(s) PO daily 05/12/2016 05/11/2016 Inactive Cialis 20 mg tablet RxNorm: 401231 1 Tablet(s) PO PRN 02/16/2016 No Stop Date Active not more than 1 tab in 24 hours morphine ER 10 mg ca psule,extended release pellets RxNorm: 600801 1 Tablet(s) PO Q6 as needed 02/16/2016 11/16/2016 Inactive clonazepam 1 mg tablet RxNorm: 020280 1/2 Tablet(s) PO BID 02/16/2016 09/15/2016 Inactive trazodone 50 mg tablet RxNorm: 654962 1/2 Tablet(s) as needed 1 Tablet(s) PO Q HS 02/16/2016 08/18/2016 In active trazodone 50 mg tablet RxNorm: 744200 1/2 Tablet(s) 1 Tablet(s) PO QHS 11/17/2015 02/15/2016 In active trazodone 50 mg tablet RxNorm: 989242 1 Tablet(s) PO QHS 10/19/2015 11/16/2015 Inactive levothyroxine 200 mc g tablet RxNorm: 349787 1 Tablet(s) PO daily 10/02/2015 08/10/2016 Inactive Wellbutrin XL 150 mg 24 hr tablet, extended release RxNorm: 551045 1 Tablet(s) PO daily 10/02/2015 05/11/2016 Inactive levothyroxine 200 mc g tablet RxNorm: 630703 1 Tablet(s) PO daily 09/30/2015 10/01/2015 Inactive Wellbutrin XL 150 mg 24 hr tablet, extended release RxNorm: 490857 1 Tablet(s) PO daily 09/30/2015 10/01/2015 Inactive trazodone 50 mg tablet RxNorm: 255857 1 Tablet(s) PO QHS 09/11/2015 10/10/2015 Inactive trazodone 50 mg tablet RxNorm: 697981 1 Tablet(s) PO QHS 09/11/2015 09/10/2015 Inactive Cymbalta 30 mg capsu le,delayed release RxNorm: 944459 1 Capsule(s) PO daily 09/07/2015 11/16/2015 In active Cymbalta 60 mg capsu le,delayed release RxNorm: 214989 1 Capsule(s) PO daily 08/31/2015 08/30/2015 In active Cymbalta 30 mg capsu le,delayed release RxNorm: 827472 1 Capsule(s) PO daily take with 60mg to make 90 mg daily 08/31/2015 09/06/2015 Inactive Cymbalta 30 mg capsu le,delayed release RxNorm: 497380 1 Capsule(s) PO daily take with 60mg to make 90 mg daily 08/31/2015 08/30/2015 Inactive Cymbalta 60 mg capsu le,delayed release RxNorm: 197669 1 Capsule(s) PO daily x 7 days and then increase to 90mg daily 08/31/2015 09/07/2015 Inactive levothyroxine 200 mc g tablet RxNorm: 120508 1 Tablet(s) PO daily 08/14/2015 09/29/2015 Inactive Wellbutrin XL 150 mg 24 hr tablet, extended release RxNorm: 919879 1 Tablet(s) PO daily 07/14/2015 09/29/2015 Inactive Cialis 20 mg tablet RxNorm: 150499 1 Tablet(s) PO PRN 07/02/2015 02/15/2016 Inactive not more than 1 tab in 24 hours liothyronine 5 mcg t ablet RxNorm: 125097 1 Tablet(s) PO daily 2015 05/29/2016 Inactive clonazepam 1 mg tablet RxNorm: 411393 1 Tablet(s) PO TID 2015 02/15/2016 Inactive minocycline 50 mg ta blet RxNorm: 932650 1 Tablet(s) PO daily 2015 05/11/2016 Inactive Wellbutrin XL 150 mg 24 hr tablet, extended release RxNorm: 931001 1 Tablet(s) PO daily 04/23/2015 07/13/2015 Inactive levothyroxine 200 mc g tablet RxNorm: 732769 1 Tablet(s) PO daily 04/23/2015 08/13/2015 Inactive Aleve oral RxNorm: 610038 oral No Start Date Active Tylenol 500 mg RxNorm: oral No Start Date Active morphine ER 15 mg ta blet,extended release RxNorm: 978544 oral No Start Date 11/16/2016 Inactive Trazadone 25 mg RxNorm: 2 PO daily No Start Date 09/11/2015 Inactive diclofenac oral RxNorm: 3355 oral No Start Date 05/04/2018 Inactive clonazepam 1 mg tablet RxNorm: 257338 1 Tablet(s) PO QHS No Start Date 06/04/2015 Inactive Wellbutrin XL 150 mg 24 hr tablet, extended release RxNorm: 783281 1 Tablet(s) PO daily No Start Date 04/22/2015 Inactive minocycline 50 mg ta blet RxNorm: 557119 1 Tablet(s) PO daily No Start Date 06/04/2015 Inactive methadone 5 mg tablet RxNorm: 764380 1 Tablet(s) PO Q8 No Start Date 02/15/2016 Inactive Protonix 40 mg table t,delayed release RxNorm: 973648 Tablet(s) PO daily No Start Date 06/16/2016 Inactive Opana ER 15 mg table t, crush resistant, extended release RxNorm: 851347 1 Tablet(s) PO Q12H No Start Date 06/08/2017 Inactive MS Contin 30 mg tabl et,extended release RxNorm: 177759 1 Tablet(s) PO Q12H No Start Date 02/15/2016 Inactive Opana ER 15 mg table t, crush resistant, extended release RxNorm: 738250 1 Tablet(s) PO BID No Start Date 09/15/2016 Inactive liothyronine 5 mcg t ablet RxNorm: 237250 1 Tablet(s) PO daily No Start Date 06/04/2015 Inactive Cialis 20 mg tablet RxNorm: 665281 1 Tablet(s) PO PRN No Start Date 07/01/2015 Inactive not more than 1 tab in 24 hours baclofen 10 mg tablet RxNorm: 386724 1 Tablet(s) PO TID as needed No Start Date 05/11/2016 Inactive morphine 15 mg immed iate release tablet RxNorm: 270216 1 Tablet(s) PO Q6 PRN as needed No Start Date 02/15/2016 Inactive levothyroxine 200 mc g tablet RxNorm: 912054 1 Tablet(s) PO daily No Start Date 04/22/2015 Inactive Opana ER 5 mg tablet , crush resistant, extended release RxNorm: 739585 1 Tablet(s) PO Q6 No Start Date 06/08/2017 Inactive Medication Administered Medication Codes Instruc tions Start Date Status cyanocobalamin (vit B-12) 1,000 mcg/mL injection solut ion RxNorm: 731017 1Milliliter 12/27/2018 No longer Active Immunizations No [...] 29.4 pg 01/07/2019 Cbc With Differential Ord2 [place]% 10.9 % 01/07/2019 Cbc With Differential Ord2 [...] 1.77 K/ul 01/07/2019 Cbc With Differential Ord2 [place] ABS# 0.5 K/ul 01/07/2019 Cbc With Differential Ord2 Eos ABS# 0.1 K/ul 01/07/2019 Cbc With Differential Ord2 Baso ABS# 0.0 K/ul 01/07/2019 Free T4 Qtb325 FREE T4 2.05 ng/dL 01/07/2019 Lipid Ord30 CHOL 189 mg/dL 01/07/2019 Lipid Ord30 HDL 58.0 mg/dl 01/07/2019 Lipid Ord30 TRIG 155 mg/dL 01/07/2019 Lipid Ord30 LDL 100 mg/dL 01/07/2019 Lipid Ord30 C/HDL 3.3 Ratio 01/07/2019 Comp Metabolic Fsu675 NA 137 mEq/L 01/07/2019 Comp Metabolic Vix154 K 4.2 mEq/L 01/07/2019 Comp Metabolic Zjg853 CL 104 mEq/L 01/07/2019 Comp Metabolic Dwq231 CO2 26.0 mEq/L 01/07/2019 Comp Metabolic Mjq607 AN ION GAP 11 01/07/2019 Comp Metabolic Lrc697 GL UCOSE 64 mg/dL 01/07/2019 Comp Metabolic Yrl048 Cr eat 0.8 mg/dL 01/07/2019 Comp Metabolic Aim442 eG FR 110 ml/min/1.73m2 12/28 Comp Metabolic Dai712 BUN 7 mg/dL 01/07/2019 Comp Metabolic Kjv800 B/ C Ratio 9.0 Ratio 01/07/2019 Comp Metabolic Czs613 CA LCIUM 9.7 mg/dL 01/07/2019 Comp Metabolic Wrv920 AL K PHOS 64 U/L 01/07/2019 Comp Metabolic Qlp571 T(SGOT) 32 U/L 01/07/2019 Comp Metabolic Kix318 AL T(SGPT) 44 U/L 01/07/2019 Comp Metabolic Lep464 BI LI T 0.3 mg/dL 01/07/2019 Comp Metabolic Sbb378 AL BUMIN 4.3 g/dL 01/07/2019 Comp Metabolic Ess589 TP RO 6.5 g/dL 01/07/2019 Comp Metabolic Sbf326 GL OB 2.2 g/dL 01/07/2019 Comp Metabolic Gdq570 A/ G Ratio 2.0 Ratio 01/07/2019 Comp Metabolic Fyu261 Os mo 270 mOsmo 01/07/2019 Free T4 Nbb286 FREE T4 1.54 ng/dL 11/05/2018 Vitamin D 25 Oh Vup6628 VITAMIN D, 25 HYDROXY 40.65 ng/mL 11/05/2018 Tsh Ord6 TSH (3rd IS) 0.02 uIU/mL 11/05/2018 Vitamin D 25 Oh Rdo3870 VITAMIN D, 25 HYDROXY 30.96 ng/mL 07/06/2018 Comp Metabolic Wld188 NA 141 mEq/L 07/06/2018 Comp Metabolic Pqg844 K 4.2 mEq/L 07/06/2018 Comp Metabolic Zqm103 CL 103 mEq/L 07/06/2018 Comp Metabolic Ykp587 CO2 29.0 mEq/L 07/06/2018 Comp Metabolic Hzx365 AN ION GAP 13 07/06/2018 Comp Metabolic Ilr572 GL UCOSE 105 mg/dL 07/06/2018 Comp Metabolic Wik406 Cr eat 0.8 mg/dL 07/06/2018 Comp Metabolic Ezu607 eG FR 101 ml/min/1.73m2 06/27 Comp Metabolic Wnd501 BUN 7 mg/dL 07/06/2018 Comp Metabolic Dwd073 B/ C Ratio 8.3 Ratio 07/06/2018 Comp Metabolic Btv590 CA LCIUM 9.9 mg/dL 07/06/2018 Comp Metabolic Rvx234 AL K PHOS 65 U/L 07/06/2018 Comp Metabolic Mrh054 T(SGOT) 21 U/L 07/06/2018 Comp Metabolic Pol878 AL T(SGPT) 31 U/L 07/06/2018 Comp Metabolic Bna419 BI LI T 0.3 mg/dL 07/06/2018 Comp Metabolic Zie140 AL BUMIN 4.3 g/dL 07/06/2018 Comp Metabolic Xep786 TP RO 6.4 g/dL 07/06/2018 Comp Metabolic Xgs458 GL OB 2.1 g/dL 07/06/2018 Comp Metabolic Vpt589 A/ G Ratio 2.0 Ratio 07/06/2018 Comp Metabolic Mng367 Os mo 280 mOsmo 07/06/2018 Cbc With [...] 29.3 pg 07/06/2018 Cbc With Differential Ord2 [place]% 10.5 % 07/06/2018 Cbc With Differential Ord2 [...] 1.89 K/ul 07/06/2018 Cbc With Differential Ord2 [place] ABS# 0.5 K/ul 07/06/2018 Cbc With Differential Ord2 Eos ABS# 0.3 K/ul 07/06/2018 Cbc With Differential Ord2 Baso ABS# 0.0 K/ul 07/06/2018 Total Psa Ord10 PSA 0.34 ng/mL 07/06/2018 Tsh Ord6 TSH (3rd IS) 0.02 uIU/mL 07/06/2018 Testosterone Syr910 Testo 400.6 ng/dL 07/06/2018 Free T4 Wtn164 FREE T4 1.48 ng/dL 07/06/2018 [place] Spotted Fever Igg/Igm 26007 3 PARTHA MT SPOTTED FEVER IGM EIA . 04/04/2018 [facility] Spotted Fever Igg/Igm 80031 3 RMSF, IGM 0.24 index 04/04/2018 [facility] Spotted Fever Igg/Igm 05416 3 PARTHA MT SPOTTED FEVER IGG EIA FLEX . 04/04/2018 [facility] Spotted Fever Igg/Igm 05657 3 RMSF, IGG SCREEN-FLEX Equivocal 04/04/2018 [facility] [id number] RMSF, IGG- TITER IFA <1:64 04/04/2018 Ehrlichia Chaffeensis Antibody Igg [id number] EHRLICHIA CHAFFEENSIS IGG <1:64 04/02/2018 Ehrlichia Chaffeensis Antibody Igm [id number] EHRLICHIA CHAFFEENSIS IGM < 1:16 04/02/2018 [facility] Total Antibodies With Western Blot Refle x [id number] B. BURGDORFERI, IGG/IGM 0.23 03/30/2018 [facility] Total Antibodies With Western Blot Refle x [id number] 03/30/2018 Cbc With Differential Ord2 WBC 5.04 [...] 28.7 pg 03/28/2018 Cbc With Differential Ord2 [place]% 16.1 % 03/28/2018 Cbc With Differential Ord2 [...] 1.37 K/ul 03/28/2018 Cbc With Differential Ord2 [place] ABS# 0.8 K/ul 03/28/2018 Cbc With Differential Ord2 Eos ABS# 0.1 K/ul 03/28/2018 Cbc With Differential Ord2 Baso ABS# 0.0 K/ul 03/28/2018 Comp Metabolic Czo365 NA 136 mEq/L 02/16/2018 Comp Metabolic Boc363 K 3.9 mEq/L 02/16/2018 Comp Metabolic Dky723 CL 103 mEq/L 02/16/2018 Comp Metabolic Ugc617 CO2 23.0 mEq/L 02/16/2018 Comp Metabolic Nuh866 AN ION GAP 14 02/16/2018 Comp Metabolic Mrl474 GL UCOSE 133 mg/dL 02/16/2018 Comp Metabolic Opt965 Cr eat 0.8 mg/dL 02/16/2018 Comp Metabolic Zir360 eG FR 103 ml/min/1.73m2 01/26 Comp Metabolic Xxp592 BUN 7 mg/dL 02/16/2018 Comp Metabolic Lia054 B/ C Ratio 8.4 Ratio 02/16/2018 Comp Metabolic Jts426 CA LCIUM 9.3 mg/dL 02/16/2018 Comp Metabolic Gby165 AL K PHOS 71 U/L 02/16/2018 Comp Metabolic Tac196 T(SGOT) 42 U/L 02/16/2018 Comp Metabolic Wao571 AL T(SGPT) 69 U/L 02/16/2018 Comp Metabolic Feg606 BI LI T 0.3 mg/dL 02/16/2018 Comp Metabolic Iuz094 AL BUMIN 4.1 g/dL 02/16/2018 Comp Metabolic Guz706 TP RO 6.3 g/dL 02/16/2018 Comp Metabolic Ajf387 GL OB 2.2 g/dL 02/16/2018 Comp Metabolic Mae817 A/ G Ratio 1.8 Ratio 02/16/2018 Comp Metabolic Som397 Os mo 272 mOsmo 02/16/2018 Free T4 Urc434 FREE T4 1.85 ng/dL 02/16/2018 Ferritin Ord22 FERRITIN 161.7 ng/mL 02/16/2018 Tsh Ord6 TSH (3rd IS) 0.01 uIU/mL 02/16/2018 Test(s) Not Perfromed [id number] Test(s) Not Performed Test(s) Not Performed. See Below: 02/16/2018 Test(s) Not Perfromed [id number] TEST NAME CBC 02/16/2018 Test(s) Not Perfromed [id number] Rejection Reason No Suitable Specimen Receive d 02/16/2018 Test(s) Not Perfromed [id number] COMMENT Please Recollect Sample 02/16/2018 Test(s) Not Perfromed [id number] Field Hand Fernando Goyal 02/16/2018 Tibc Ord40 Iron 138 [...] 26.4 pg 01/05/2018 Cbc With Differential Ord2 [place]% 11.9 % 01/05/2018 Cbc With Differential Ord2 [...] 2.08 K/ul 01/05/2018 Cbc With Differential Ord2 [place] ABS# 0.6 K/ul 01/05/2018 Cbc With Differential Ord2 Eos ABS# 0.2 K/ul 01/05/2018 Cbc With Differential Ord2 Baso ABS# 0.0 K/ul 01/05/2018 Ferritin Ord22 FERRITIN 5.7 ng/mL 12/06/2017 Tibc Ord40 Iron 33 ug/dl 12/06/2017 Tibc Ord40 UIBC 431 ug/dL 12/06/2017 Tibc Ord40 TIBC 464 ug/dL 12/06/2017 Tibc Ord40 Fe-%Sat 7.1 % 12/06/2017 Free T4 Qfr196 FREE T4 1.82 ng/dL 12/01/2017 Tsh Ord6 [...] 27.0 pg 12/01/2017 Cbc With Differential Ord2 [place]% 10.6 % 12/01/2017 Cbc With Differential Ord2 [...] 1.92 K/ul 12/01/2017 Cbc With Differential Ord2 [place] ABS# 0.4 K/ul 12/01/2017 Cbc With Differential Ord2 Eos ABS# 0.2 K/ul 12/01/2017 Cbc With Differential Ord2 Baso ABS# 0.0 K/ul 12/01/2017 Comp Metabolic Dxt247 NA 136 mEq/L 12/01/2017 Comp Metabolic Whn062 K 4.6 mEq/L 12/01/2017 Comp Metabolic Aux154 CL 102 mEq/L 12/01/2017 Comp Metabolic Oyw836 CO2 27.0 mEq/L 12/01/2017 Comp Metabolic Pvr428 AN ION GAP 12 12/01/2017 Comp Metabolic Zvf916 GL UCOSE 90 mg/dL 12/01/2017 Comp Metabolic Jad601 Cr eat 0.7 mg/dL 12/01/2017 Comp Metabolic Qeq206 eG FR 123 ml/min/1.73m2 03/2018 Comp Metabolic Kgd483 BUN 4 mg/dL 12/01/2017 Comp Metabolic Aue432 B/ C Ratio 5.6 Ratio 12/01/2017 Comp Metabolic Omh738 CA LCIUM 9.0 mg/dL 12/01/2017 Comp Metabolic Ivr898 AL K PHOS 67 U/L 12/01/2017 Comp Metabolic Vnv564 T(SGOT) 30 U/L 12/01/2017 Comp Metabolic Zwv008 AL T(SGPT) 29 U/L 12/01/2017 Comp Metabolic Flh692 BI LI T 0.3 mg/dL 12/01/2017 Comp Metabolic Tpk480 AL BUMIN 4.1 g/dL 12/01/2017 Comp Metabolic Mis198 TP RO 6.1 g/dL 12/01/2017 Comp Metabolic Frt196 GL OB 2.0 g/dL 12/01/2017 Comp Metabolic Ykv382 A/ G Ratio 2.0 Ratio 12/01/2017 Comp Metabolic Iim715 Os mo 268 mOsmo 12/01/2017 Comp Metabolic Soa320 NA 136 mEq/L 02/16/2016 Comp Metabolic Ogz865 K 4.2 mEq/L 02/16/2016 Comp Metabolic Enn992 CL 104 mEq/L 02/16/2016 Comp Metabolic Sqb378 CO2 20.0 mEq/L 02/16/2016 Comp Metabolic Kqh659 AN ION GAP 16 02/16/2016 Comp Metabolic Jut442 GL UCOSE 71 mg/dL 02/16/2016 Comp Metabolic Zsf693 Cr eat 0.8 mg/dL 02/16/2016 Comp Metabolic Zza002 eG FR 113 ml/min/1.73m2 01/26 Comp Metabolic Lsq322 BUN 7 mg/dL 02/16/2016 Comp Metabolic Hhw669 B/ C Ratio 9.1 Ratio 02/16/2016 Comp Metabolic Xlw552 CA LCIUM 9.4 mg/dL 02/16/2016 Comp Metabolic Sww479 AL K PHOS 57 U/L 02/16/2016 Comp Metabolic Qac872 T(SGOT) 30 U/L 02/16/2016 Comp Metabolic Vly289 AL T(SGPT) 27 U/L 02/16/2016 Comp Metabolic Vzh514 BI LI T 0.2 mg/dL 02/16/2016 Comp Metabolic Iqn078 AL BUMIN 4.4 g/dL 02/16/2016 Comp Metabolic Kxz522 TP RO 6.5 g/dL 02/16/2016 Comp Metabolic Lke903 GL OB 2.1 g/dL 02/16/2016 Comp Metabolic Hmz124 A/ G Ratio 2.1 Ratio 02/16/2016 Comp Metabolic Sub925 Os mo 268 mOsmo 02/16/2016 Free T4 Gzd334 FREE T4 1.20 ng/dL 02/16/2016 Cbc With [...] 30.2 pg 02/16/2016 Cbc With Differential Ord2 [place]% 9.6 % 02/16/2016 Cbc With Differential Ord2 [...] 1.50 K/ul 02/16/2016 Cbc With Differential Ord2 [place] ABS# 0.5 K/ul 02/16/2016 Cbc With Differential [...] Respiratory dyspnea on exertion 05/04/2018 Respiratory snoring 06/2018 Gastrointestinal No constipation 05/04/2018 Gastrointestinal No [...] Exam - General 1995 Eyes conjunctiva/eyelids Overall: eyelids normal 07/05/2018 None Full Exam - General 1995 Eyes pupils and irises Overall: pupils equal, round, reactive to light and accomodation 07/05/2018 None Full Exam - General 1995 Ears/Nose/Throat lips/teeth/gingiva Overall: benign lips 07/05/2018 None Full Exam - General 1995 Ears/Nose/Throat [...] Exam - General 1995 Eyes conjunctiva/eyelids Overall: eyelids normal 05/04/2018 None Full Exam - General 1994 Eyes pupils and irises Overall: pupils equal, round, reactive to light and accomodation 05/04/2018 None Full Exam - General 1995 Ears/Nose/Throat lips/teeth/gingiva Overall: benign lips 05/04/2018 None [...] Procedure Codes Date THER/PROPH/DIAG INJ SC/IM CPT-4: 01570 12/27/2018 VITAMIN B12 INJECTION CPT-4: J3420 12/27/2018 PPPS, SUBSEQ VISIT CPT- 4: G0439 09/17/2018 Vital Signs Date Vital 05/14/2019 Blood Pressure 1: 120/70 Code: 8480-6 BMI: 36.2 Code: 27655-8 Heart Rate 1: 65 bpm Height: 5'6" SpO2: 98% Weight: 224 lbs 03/12/2019 Blood Pressure 1: 130/76 Code: 8480-6 BMI: 38.6 Code: 28302-0 Heart Rate 1: 83 bpm Height: 5'6" SpO2: 99% Weight: 239 lbs 01/07/2019 Blood Pressure 1: 124/80 Code: 8480-6 BMI: 38.3 Code: 58778-2 Heart Rate 1: 88 bpm Height: 5'6" SpO2: 97% Weight: 237 lbs 12/27/2018 Blood Pressure 1: 122/80 Code: 8480-6 BMI: 38.6 Code: 17061-7 Heart Rate 1: 72 bpm Height: 5'6" SpO2: 98% Weight: 239 lbs 11/05/2018 Blood Pressure 1: 122/64 Code: 8480-6 BMI: 37.4 Code: 57460-3 Heart Rate 1: 66 bpm Height: 5'6" SpO2: 97% Weight: 232 lbs 09/27/2018 Blood Pressure 1: 92/66 Code: 8480-6 BMI: 37.9 Code: 11550-6 Heart Rate 1: 66 bpm Height: 5'6" SpO2: 98% Weight: 235 lbs 09/17/2018 Blood Pressure 1: 11072 Code: 8480-6 BMI: 38.3 Code: 15732-6 Heart Rate 1: 77 bpm Height: 5'6" SpO2: 95% Waist Measure (cm): 102 cm Weight: 237 lbs 09/03/2018 Blood Pressure 1: 12268 Code: 8480-6 BMI: 37.6 Code: 60801-0 Heart Rate 1: 78 bpm Height: 5'6" SpO2: 97% Weight: 233 lbs 07/05/2018 Blood Pressure 1: 94/62 Code: 8480-6 BMI: 36.8 Code: 00611-6 Heart Rate 1: 88 bpm Height: 5'6" SpO2: 99% Weight: 228 lbs 05/04/2018 Blood Pressure 1: 110/80 Code: 8480-6 BMI: 35.5 Code: 47060-9 Heart Rate 1: 80 bpm Height: 5'6" SpO2: 99% Weight: 220 lbs 03/28/2018 Blood Pressure 1: 110/72 Code: 8480-6 BMI: 35.0 Code: 20079-5 Heart Rate 1: 80 bpm Height: 5'6" SpO2: 98% Temperature: 36.2 (C ) / 97.1 (F) Weight: 217 lbs 02/27/2018 Blood Pressure 1: 136/76 Code: 8480-6 BMI: 36.0 Code: 01363-1 Heart Rate 1: 80 bpm Height: 5'6" SpO2: 98% Weight: 223 lbs 12/01/2017 Blood Pressure 1: 132/72 Code: 8480-6 BMI: 33.4 Code: 97330-4 Heart Rate 1: 82 bpm Height: 5'6" SpO2: 97% Weight: 207 lbs 09/29/2017 Blood Pressure 1: 124/68 Code: 8480-6 BMI: 32.1 Code: 92417-6 Heart Rate 1: 77 bpm Height: 5'6" SpO2: 98% Weight: 199 lbs 08/11/2017 Blood Pressure 1: 154/82 Code: 8480-6 BMI: 31.6 Code: 58742-9 Heart Rate 1: 75 bpm Height: 5'6" SpO2: 98% Weight: 196 lbs 06/09/2017 Blood Pressure 1: 148/88 Code: 8480-6 BMI: 28.6 Code: 74685-5 Heart Rate 1: 88 bpm Height: 5'6" SpO2: 98% Weight: 177 lbs 04/07/2017 Blood Pressure 1: 140/84 Code: 8480-6 BMI: 30.3 Code: 02016-2 Heart Rate 1: 81 bpm Height: 5'6" SpO2: 99% Weight: 188 lbs 11/17/2016 Blood Pressure 1: 130/72 Code: 8480-6 Heart Rate 1: 63 bpm Height: SpO2: 93% Weight: 11/10/2016 Blood Pressure 1: 128/86 Code: 8480-6 BMI: 30.3 Code: 61748-0 Heart Rate 1: 84 bpm Height: 5'6" SpO2: 96% Weight: 188 lbs 10/14/2016 Heigh t: 5'6" 09/16/2016 Blood Pressure 1: 130/80 Code: 8480-6 BMI: 30.3 Code: 17093-1 Heart Rate 1: 67 bpm Height: 5'6" SpO2: 99% Weight: 188 lbs 08/19/2016 Blood Pressure 1: 110/62 Code: 8480-6 BMI: 29.9 Code: 98077-0 Heart Rate 1: 70 bpm Height: 5'6" SpO2: 97% Weight: 185 lbs 06/17/2016 Blood Pressure 1: 112/68 Code: 8480-6 BMI: 27.6 Code: 10600-0 Heart Rate 1: 61 bpm Height: 5'6" SpO2: 98% Weight: 171 lbs 05/12/2016 Blood Pressure 1: 130/76 Code: 8480-6 BMI: 29.7 Code: 66827-7 Heart Rate 1: 103 bpm Height: 5'6" SpO2: 98% Weight: 184 lbs 02/16/2016 Blood Pressure 1: 140/82 Code: 8480-6 BMI: 28.7 Code: 72345-4 Heart Rate 1: 66 bpm Height: 5'6" SpO2: 99% Weight: 178 lbs 11/17/2015 Blood Pressure 1: 120/74 Code: 8480-6 BMI: 29.4 Code: 53007-5 Heart Rate 1: 90 bpm Height: 5'6" SpO2: 94% Weight: 182 lbs 08/28/2015 Blood Pressure 1: 128/76 Code: 8480-6 BMI: 27.9 Code: 96733-0 Heart Rate 1: 80 bpm Height: 5'6" SpO2: 98% Weight: 173 lbs 05/28/2015 Blood Pressure 1: 122/70 Code: 8480-6 BMI: 27.0 Code: 36375-1 Heart Rate 1: 74 bpm Height: 5'6" SpO2: 98% Weight: 167 lbs 04/23/2015 Blood Pressure 1: 110/60 Code: 8480-6 BMI: 27.0 Code: 55316-9 Heart Rate 1: 68 bpm Height: 5'6" [...] o ngoing 05/14/2019 None [facility] [...] and Resolution ongoing 09/03/2018 None hypothyroid Quality hospice home health aide fe 09/03/2018 None hypothyroid Onset and Resolution [...] fatigue Quality constant 07/05/2018 None hypothyroid Quality hospice home health aide fe 07/05/2018 None hypothyroid Onset and Resolution [...] Findings weight loss 03/28/2018 None hypothyroid Quality hospice home health aide fe 02/27/2018 None hypothyroid Onset and Resolution [...] Encounters Encounter Performer Loca tion Codes Date ([id number]) 89056 EST. P ATIENT, LEVEL III Diagnosis: Chronic pain syndrome[ICD10: G89.4] Diagnosis: Hypothyroidism, unspecified[ICD10: E03.9] [facility] CPT-4: 40474 05/14/2019 ([id number]) 06496 EST. P ATIENT, LEVEL III Diagnosis: Hypothyroidism, unspecified[ICD10: E03.9] Diagnosis: Chronic pain syndrome[ICD10: G89.4] [facility] CPT-4: 97825 03/12/2019 ([id number]) 45015 EST. P ATIENT, LEVEL IV Diagnosis: Chronic pain syndrome[ICD10: G89.4] Diagnosis: Hypothyroidism, unspecified[ICD10: E03.9] Diagnosis: Encounter for screening for lipoid disorders[ICD10: Z13.220] Diagnosis: Major depressive disorder, recurrent, moderate[ICD10: F33.1] Leydi Jacobo MD, [facility] CPT-4: 62698 01/07/2019 ([id number]) 10165 EST. P ATIENT, LEVEL III Diagnosis: Obstructive sleep apnea (adult) (pediatric)[ICD10: G47.33] Diagnosis: Hypothyroidism, unspecified[ICD10: E03.9] Diagnosis: Vitamin B12 deficiency anemia, unspecified[ICD10: D51.9] Leydi Jacobo MD, [facility] CPT-4: 68300 12/27/2018 ([id number]) 80056 EST. P ATIENT, LEVEL IV Diagnosis: Hypothyroidism, unspecified[ICD10: E03.9] Diagnosis: Major depressive disorder, recurrent, moderate[ICD10: F33.1] Diagnosis: Chronic pain syndrome[ICD10: G89.4] Leydi Jacobo MD, [facility] CPT-4: 49407 11/05/2018 ([id number]) 73164 EST. P ATIENT, LEVEL IV Diagnosis: Chronic pain syndrome[ICD10: G89.4] Diagnosis: Hypothyroidism, unspecified[ICD10: E03.9] Diagnosis: Other fatigue[ICD10: R53.83] Diagnosis: Other obesity due to excess calories[ICD10: E66.09] Diagnosis: Major depressive disorder, recurrent, moderate[ICD10: F33.1] Leydi Jacobo MD, [facility] CPT-4: 86674 09/27/2018 ([id number]) 46162 EST. P ATIENT, LEVEL III Diagnosis: Chronic pain syndrome[ICD10: G89.4] Leydi Jacobo MD, [facility] CPT-4: 97864 09/03/2018 ([id number]) 03895 EST. P ATIENT, LEVEL IV Diagnosis: Hypothyroidism, unspecified[ICD10: E03.9] Diagnosis: Major depressive disorder, recurrent, moderate[ICD10: F33.1] Diagnosis: Chronic pain syndrome[ICD10: G89.4] Diagnosis: Other male erectile dysfunction[ICD10: N52.8] Diagnosis: Other fatigue[ICD10: R53.83] Diagnosis: Encounter for screening for malignant neoplasm of prostate[ICD10: Z12.5] Leydi Jacobo MD, [facility] CPT-4: 10008 07/05/2018 ([id number]) 35146 EST. P ATIENT, LEVEL IV Diagnosis: Chronic pain syndrome[ICD10: G89.4] Diagnosis: Hypothyroidism, unspecified[ICD10: E03.9] Diagnosis: Major depressive disorder, recurrent, moderate[ICD10: F33.1] Leydi Jacobo MD, [facility] CPT-4: 19778 05/04/2018 68251 EST. PATIENT, LEVEL IV Diagnosis: Melena[ICD10: K92.1] Diagnosis: Other malaise[ICD10: R53.81] Diagnosis: Other fatigue[ICD10: R53.83] Diagnosis: Pain in unspecified joint[ICD10: M25.50] Diagnosis: Diarrhea, unspecified[ICD10: R19.7] Denae Jacobo MD, [facility] CPT-4: 82442 03/28/2018 ([id number]) 09213 EST. P ATIENT, LEVEL IV Diagnosis: Chronic pain syndrome[ICD10: G89.4] Diagnosis: Hypothyroidism, unspecified[ICD10: E03.9] Diagnosis: Other obesity due to excess calories[ICD10: E66.09] Diagnosis: Major depressive disorder, recurrent, moderate[ICD10: F33.1] Diagnosis: Obstructive sleep apnea (adult) (pediatric)[ICD10: G47.33] Leydi Jacobo MD, [facility] CPT-4: 08542 02/27/2018 09480 EST. PATIENT, LEVEL IV Diagnosis: Other specified hypothyroidism[ICD10: E03.8] Diagnosis: Chronic pain syndrome[ICD10: G89.4] Diagnosis: Major depressive disorder, recurrent, moderate[ICD10: F33.1] Denae Jacobo MD, [facility] CPT-4: 71542 12/01/2017 ([id number]) 36837 EST. P ATIENT, LEVEL IV Diagnosis: Chronic pain syndrome[ICD10: G89.4] Diagnosis: Alcohol dependence, uncomplicated[ICD10: F10.20] Diagnosis: Major depressive disorder, recurrent, moderate[ICD10: F33.1] Leydi Jacobo MD, [facility] CPT-4: 20546 09/29/2017 ([id number]) 17498 EST. P ATIENT, LEVEL IV Diagnosis: Chronic pain syndrome[ICD10: G89.4] Diagnosis: Alcohol dependence, uncomplicated[ICD10: F10.20] Diagnosis: Major depressive disorder, recurrent, moderate[ICD10: F33.1] Leydi Jacobo MD, [facility] CPT-4: 49225 08/11/2017 ([id number]) 53403 EST. P ATIENT, LEVEL III Diagnosis: Chronic pain syndrome[ICD10: G89.4] Diagnosis: Major depressive disorder, recurrent, moderate[ICD10: F33.1] Leydi Jacobo MD, [facility] CPT-4: 94538 06/09/2017 ([id number]) 73877 EST. P ATIENT, LEVEL III Diagnosis: Chronic pain syndrome[ICD10: G89.4] Diagnosis: Pain in left knee[ICD10: M25.562] Leydi Jacobo MD, [facility] CPT- 4: 89466 04/07/2017 40953 EST. PATIENT, LEVEL II Diagnosis: Superficial foreign body of left upper arm, initial encounter[ICD10: S40.852A] Diagnosis: Cellulitis of left upper limb[ICD10: L03.114] Leydi Jacobo MD, [facility] CPT-4: 45211 11/17/2016 37924 EST. PATIENT, LEVEL II Diagnosis: Cellulitis of left upper limb[ICD10: L03.114] Leydi Jacobo MD, [facility] CPT-4: 16094 11/10/2016 ([id number]) 35118 EST. P ATIENT, LEVEL III Diagnosis: Chronic pain syndrome[ICD10: G89.4] Diagnosis: Major depressive disorder, recurrent, moderate[ICD10: F33.1] Leydi Jacobo MD, [facility] CPT-4: 95302 10/14/2016 10505 EST. PATIENT, LEVEL IV Diagnosis: Psychophysiologic insomnia[ICD10: F51.04] Diagnosis: Major depressive disorder, recurrent, moderate[ICD10: F33.1] Diagnosis: Alcohol dependence, uncomplicated[ICD10: F10.20] Diagnosis: Chronic pain syndrome[ICD10: G89.4] Leydi Jacobo MD, [facility] CPT-4: 17247 09/16/2016 ([id number]) 78197 EST. P ATIENT, LEVEL III Diagnosis: Pain in left shoulder[ICD10: M25.512] Diagnosis: Major depressive disorder, recurrent, moderate[ICD10: F33.1] Diagnosis: Psychophysiologic insomnia[ICD10: F51.04] Leydi Jacobo MD, [facility] CPT-4: 51036 08/19/2016 ([id number]) 81799 EST. P ATIENT, LEVEL III Diagnosis: Gastro-esophageal reflux disease without esophagitis[ICD10: K21.9] Diagnosis: Hypothyroidism, unspecified[ICD10: E03.9] Leydi Jacobo MD, [facility] CPT-4: 93348 06/17/2016 ([id number]) 49465 EST. P ATIENT, LEVEL IV Diagnosis: Gastro-esophageal reflux disease without esophagitis[ICD10: K21.9] Diagnosis: Hypothyroidism, unspecified[ICD10: E03.9] Diagnosis: Major depressive disorder, recurrent, moderate[ICD10: F33.1] Leydi Jacobo MD, [facility] CPT-4: 85506 05/12/2016 ([id number]) 36576 EST. P ATIENT, LEVEL III Diagnosis: Cervicalgia[ICD10: M54.2] Diagnosis: Hypothyroidism, unspecified[ICD10: E03.9] Diagnosis: Other male erectile dysfunction[ICD10: N52.8] Leydi Jacobo MD, [facility] CPT-4: 90119 02/16/2016 ([id number]) 59010 EST. P ATIENT, LEVEL III Diagnosis: Lumbago with sciatica, unspecified side[ICD10: M54.40] Diagnosis: Other male erectile dysfunction[ICD10: N52.8] Leydi Jacobo MD, [facility] CPT-4: 41156 11/17/2015 ([id number]) 24679 EST. P ATIENT, LEVEL III Diagnosis: Lumbago with sciatica, unspecified side[ICD10: M54.40] Diagnosis: Hypothyroidism, unspecified[ICD10: E03.9] Diagnosis: Other male erectile dysfunction[ICD10: N52.8] Leydi Jacobo MD, [facility] CPT-4: 78667 08/28/2015 ([id number]) 38980 EST. P ATIENT, LEVEL III Diagnosis: Back pain, chronic[ICD9: 724.5] Diagnosis: Depression[ICD9: 311] Diagnosis: Hypothyroid[ICD9: 244.9] Diagnosis: Bilateral calf pain[ICD9: 729.5] [facility] CPT-4: 97827 05/28/2015 ([id number]) OFFICE VISI T [facility] - LEVEL 4 Diagnosis: Back pain, chronic[ICD9: 724.5] Diagnosis: Depression[ICD9: 311] Diagnosis: Hypothyroid[ICD9: 244.9] Julieta Jacobo MD, [facility] CPT-4: 28352 04/23/2015 Plan of Care Planned Activity Notes [...] termination from this medical practice. 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 03/12/2019 Appointment: Leydi Hightower WPtel: [address] [place], [place] [phone] (30 min) Complex 03/12/2019 Patient Education: Patient Medication Summary Completed 03/12/2019 Appointment: Leydi Hightower WPtel[phone] (30 min) Complex 03/05/2019 Visit Plan: Chronic [...] thyroid ultrasound 01/07/2019 Appointment: Leydi Hightower WPtel: [phone] (30 min) Complex 01/07/2019 Patient Education: Patient [...] the office 12/27/2018 Appointment: Leydi Hightower WPtel: [phone] [place] (15 min) Moderate 12/27/2018 Patient Education: [...] change in current medications. 11/05/2018 Appointment: Leydi Hgihtower WPtel: [phone] [facility] [place] [address] (30 min) Complex 11/05/2018 Patient Education: Patient [...] control. 09/27/2018 Appointment: Leydi Hightower WPtel: [phone] [phone] (15 min) Moderate 09/27/2018 Patient Education: Patient [...] surrogate. 09/17/2018 Appointment: Leydi Hightower WPtel: [phone] [phone] [facility] - Annual Wellness Visit 09/17/2018 Patient Education: Patient Medication Summary Completed 09/17/2018 Visit Plan: Chronic Pain Syndrome - pt has chronic pain - has been maintained on current medications, has not sought out other medications, only uses PRN pain medications as directed, and understands the consequences of over-medication. 09/03/2018 Appointment: Leydi Hightower WPtel: [phone] [phone] (30 min) Complex 09/03/2018 Patient Education: Patient [...] exposure. No change in current medications. Fatigue-weight [id number] labs including testosterone level 07/05/2018 Visit Plan: [...] exposure. No change in current medications. Fatigue-weight [id number] labs including testosterone level 07/05/2018 Appointment: Leydi Hightower WPtel: [phone] [phone] [place] (15 min) Moderate 07/05/2018 Patient Education: [...] BID 05/04/2018 Appointment[phone] [place] (15 min) Moderate 05/04/2018 Patient [...] stomach pain. 03/28/2018 Appointment: Den[facility] Martínez [facility]Ptel[phone] (30 min) Complex 03/28/2018 Appointment: Nurse [...] this time. 02/27/2018 Appointment: [facility]ightower [facility]Ptel[phone] (15 min) Moderate 02/27/2018 Patient Education: [...] control. 12/01/2017 Appointment: Den[facility] Martínez WPtel[phone] (30 min) Complex 12/01/2017 Patient Education: [...] outpatient treatment 09/29/2017 Appointment: [phone] [place] (30 min) Complex 09/29/2017 Patient [...] cons ider 08/11/2017 Appointment: Leydi Hightower WPtel: [phone] [phone] (30 min) Complex 08/11/2017 Patient Education: Patient [...] change in current medications. 06/09/2017 Appointment: Leydi Hihgtower WPtel: [facility]5 [phone] (30 min) Complex 06/09/2017 Patient Education: Patient [...] completely resolve 11/17/2016 Appointment: Leydi Hightower WPtel: [facility]8 [phone] (30 min) Complex 11/17/2016 Patient Education: Patient [...] the lesion, increase in pain. 11/10/2016 Appointment: Ledyi Hightower WPtel: [facility]6 [phone] (30 min) Complex 11/10/2016 Patient Education: Patient [...] of plan. 10/14/2016 Appointment: Leydi Hightower WPtel: [facility] [place] [phone] (30 min) Complex 10/14/2016 Patient Education: Patient [...] will try 09/16/2016 Appointment: Leydi Hightower WPtel: [facility] [place] [phone] (30 min) Complex 09/16/2016 Patient Education: Patient Medication Summary Completed 09/16/2016 Visit Plan: Left shoulder and elbow pain-xray shoulder and elbow Nldakjtlgx-ktbtvvjf-jtorgdfurqlp-d/c trazodone-start remeron at bedtime Pt has been [...] this patient. 08/19/2016 Appointment: Leydi Hightower WPtel: [facility]5 [phone] [place] [address] (30 min) Complex 08/19/2016 Patient Education: Patient [...] Obesity Completed 06/17/2016 Appointment: Leydi Hightower WPtel: [address] [place], [place] [id number] [place] [address] (30 min) Complex 06/09/2016 Visit Plan: Esophageal [...] on previous levels of control. 05/12/2016 Appointment: Campbell Leydi WPtel: [phone] (30 min) Complex 05/12/2016 Patient Education: [...] in office. 05/28/2015 Appointment: [facility]ightower [facility]Ptel[phone] (30 min) Complex 05/28/2015 Patient Education: [...] Portal ID Completed 04/23/2015 Care Plan: [facility] [id number] Ordered 04/23/2015 Instructions Comment . Chronic Pain Syndr ome - pt [...] exposure. No change in current medications. Fatigue-weight jasv-CY-qhget labs including testosterone level . Chronic Pain [...] free x 11 days-attending outpatient treatment . Hypothyroidism -re [place]ierra to Noemi Yan at [facility] Chronic Pain Syndrome - pt has chronic pain - has been maintained on current medications, has not sought out other medications, only uses PRN pain medications as directed, and understands the consequences of over-medication. Refill baclofen and wellbutrin. Consider increasing wellbutrin [...] worse. Patient verbalized understanding of plan. . Chronic Pain Syndr ome - pt [...] alcohol dependence-discussed referral to psychologist-patient will consider . Hypothyroidism - p t with chronic [...] Pain medications are managed by Dr. Perez. RECOMMEND SLEEP STUD Y BELVIQ DECREASE LEVOTHYROXINE [...] and elbow pain-xray shou lder and elbow Npfiikuwcg-sfmdnfel-lxyzymdtdano-d/c trazodone-start remeron at bedtime Pt has been [...] medications ED-samples of cialis for prn use Check labs today. [...] cialis for prn use Get Immodium over th e counter for [...] exposure. No change in current medications. Fatigue-weight lkde-GF-zgbqp labs including testosterone level . Chronic Back [...] termination from this medical practice. 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 Chronic Pain Syndr ome - pt [...] levels of control. Repeat labs in 2 mon ths . [...] dressing dose-repeat labs today-consider thyroid ultrasound . Chronic pain-manag ed by Dr Perez-no change in treatments ED-samples of cialis for prn use ABILIFY 2mg daily WORK ON CUTTING BACK [...] based on previous levels of control. . 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 Chronic Pain Syndrome [...]
--- OUTSIDE RECORDS SUMMARY | 2020-03-17 14:37 | XMS REPORT | CCD ---
Author Author Thai Castillo Organization Sara Jacobo MD, [facility] Address [address] [place] [address] Phone Care Team Providers Care Stock Broker Supervisor Name Role Phone PP Unavailable CCM Unavailable Summary Purpose Interface Exchange Insurance Providers Payer name Policy type / Coverage type Covered green party ID Effective Begin Date Effective End Date WPS Medicare Part B Medicare Part B [id number] Unknown [facility] icare Part B [id number] Un known Family history Father Diagnosis Age At Onset Colon cancer Unknown Social History Social History Element Codes Description Effective Dates Employment Unknown [employer] unemployed Before disability 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/2018 On Disability Unknown Yes 09/27/2018 Marital status Unknown D ivorced 04/23/[address]: 818118915 Never smoker 04/23/[address]: 035907 Currently drinks alcohol occasionally drinks 04/23/2015 Allergies, [...] Fill Instructions Provigil 100 mg tablet RxNorm: 887502 1 Tablet(s) PO daily 06/12/2019 08/10/2019 Active Provigil 100 mg tablet RxNorm: 603413 1 Tablet(s) PO daily 06/12/2019 06/11/2019 Inactive baclofen 10 mg tablet RxNorm: 529466 TAKE ONE TABLET BY MOUTH THREE TIMES A D AY NEEDED 05/28/2019 09/24/2019 Active tizanidine 4 mg tablet RxNorm: 838693 TAKE ONE TABLET BY MOUTH THREE TIMES A D AY NEEDED 05/28/2019 09/24/2019 Active diclofenac sodium 75 mg tablet,delayed release RxNorm: 829086 TAKE ONE TABLET BY [facility] TWICE A DAY 05/21/2019 10/17/2019 Active oxymorphone 5 mg tablet RxNorm: 573976 1 Tablet(s) PO Q6 PRN 05/14/2019 07/12/2019 Active morphine 30 mg table t, crush resistant, extended release RxNorm: 7366916 1 Tablet(s) PO BID 05/14/2019 06/12/2019 Inactive doxycycline hyclate 100 mg tablet RxNorm: 3141129 1 Tablet(s) PO BID 05/14/2019 05/23/2019 Inactive morphine 30 mg table t, crush resistant, extended release RxNorm: 5833109 1 Tablet(s) PO BID 05/07/2019 05/13/2019 Inactive levothyroxine 200 mc g tablet RxNorm: 008731 1 Tablet(s) PO daily TAKE ONE TABLET BY MOUTH DAILY 03/12/2019 09/07/2019 Active Updated script trazodone 50 mg tablet RxNorm: 270248 1.5 Tablet(s) PO QHS TAKE ONE TABLET BY MOUTH EVERY NIGHT AT BEDTIME AND ONE-HALF TABLET BY MOUTH NEEDED 03/12/2019 06/09/2019 Inactive morphine 30 mg table t, crush resistant, extended release RxNorm: 6400137 1 Tablet(s) PO BID 03/12/2019 04/10/2019 Inactive oxymorphone 5 mg tablet RxNorm: 764761 1 Tablet(s) PO Q6 PRN 03/12/2019 05/10/2019 Inactive doxycycline hyclate 100 mg tablet RxNorm: 1273548 1 Tablet(s) PO BID 03/12/2019 03/21/2019 Inactive morphine 30 mg table t, crush resistant, extended release RxNorm: 3848553 1 Tablet(s) PO BID 03/06/2019 03/11/2019 Inactive tizanidine 4 mg tablet RxNorm: 779377 TAKE ONE TABLET BY MOUTH THREE TIMES A D AY NEEDED 02/26/2019 05/26/2019 Inactive diclofenac sodium 75 mg tablet,delayed release RxNorm: 837621 TAKE ONE TABLET BY [facility] TWICE A DAY 02/18/2019 05/18/2019 Inactive Protonix 40 mg table t,delayed release RxNorm: 370928 TAKE ONE TABLET BY [facility] DAILY 02/06/2019 09/03/2019 Ac tive trazodone 50 mg tablet RxNorm: 041801 TAKE ONE TABLET BY MOUTH EVERY NIGHT AT BEDTIME AND ONE-HALF TABLET BY MOUTH NEEDED 01/14/2019 03/11/2019 Inactive oxymorphone 5 mg tablet RxNorm: 819169 1 Tablet(s) PO Q6 PRN 01/07/2019 03/07/2019 Inactive morphine 30 mg table t, crush resistant, extended release RxNorm: 3714106 1 Tablet(s) PO BID 01/07/2019 03/05/2019 Inactive doxycycline hyclate 100 mg tablet RxNorm: 6593116 1 Tablet(s) PO BID 01/01/2019 01/10/2019 Inactive cyanocobalamin (vit B-12) 1,000 mcg/mL injection solution RxNorm: 689209 1 Milliliter(s) Inj 12/27/2018 12/27/2018 Inactive baclofen 10 mg tablet RxNorm: 029521 TAKE ONE TABLET BY MOUTH THREE TIMES A D AY NEEDED 11/29/2018 03/28/2019 Inactive Request already responded t o by other means (e.g. phone or fax) baclofen 10 mg tablet RxNorm: 787218 Tablet(s) TAKE ONE TABLET BY MOUTH THREE TIMES A DAY NEEDED 11/28/2018 11/28/2018 Inactive doxycycline hyclate 100 mg tablet RxNorm: 0697813 1 Tablet(s) PO BID 11/14/2018 11/23/2018 Inactive trazodone 50 mg tablet RxNorm: 244246 TAKE ONE TABLET BY MOUTH EVERY NIGHT AT BEDTIME AND ONE-HALF TABLET BY MOUTH NEEDED 11/12/2018 12/21/2018 Inactive tizanidine 4 mg tablet RxNorm: 061549 TAKE ONE TABLET BY MOUTH THREE TIMES A D AY NEEDED 10/22/2018 02/18/2019 Inactive diclofenac sodium 75 mg tablet,delayed release RxNorm: 053846 TAKE ONE TABLET BY [facility] TWICE A DAY 10/15/2018 02/11/2019 Inactive Lasix 20 mg tablet RxNorm: 667109 1 Tablet(s) PO daily as needed 10/10/2018 11/08/2018 In active potassium chloride E R 10 mEq tablet,extended release RxNorm: 468911 1 Tablet(s) PO daily as needed to take with lasix for inceased edema 10/10/2018 11/08/2018 Inactive potassium chloride E R 10 mEq tablet,extended release RxNorm: 470462 1 Tablet(s) PO daily as needed to take with lasix for inceased edema 10/10/2018 10/09/2018 Inactive Lasix 20 mg tablet RxNorm: 432803 1 Tablet(s) PO daily as needed 10/10/2018 10/09/2018 In active doxycycline hyclate 100 mg tablet RxNorm: 0664387 1 Tablet(s) PO BID 09/27/2018 10/10/2018 Inactive Remeron 15 mg tablet RxNorm: 266486 1.5 Tablet(s) PO QPM TAKE ONE TABLET BY MOUTH EVERY NIGHT AT BEDTIME 09/18/2018 12/16/2018 Inactive baclofen 10 mg tablet RxNorm: 252359 TAKE ONE TABLET BY MOUTH THREE TIMES A D AY NEEDED 09/12/2018 11/10/2018 Inactive Remeron 15 mg tablet RxNorm: 059551 1.5 Tablet(s) PO QPM TAKE ONE TABLET BY MOUTH EVERY NIGHT AT BEDTIME 09/03/2018 09/17/2018 Inactive oxymorphone 5 mg tablet RxNorm: 222076 1 Tablet(s) PO Q6 PRN 09/03/2018 11/01/2018 Inactive morphine 30 mg table t, crush resistant, extended release RxNorm: 6800700 1 Tablet(s) PO BID 09/03/2018 11/01/2018 Inactive trazodone 50 mg tablet RxNorm: 309980 TAKE ONE TABLET BY MOUTH EVERY NIGHT AT BEDTIME AND ONE-HALF TABLET BY MOUTH NEEDED 09/03/2018 10/12/2018 Inactive tizanidine 4 mg tablet RxNorm: 012789 TAKE ONE TABLET BY MOUTH THREE TIMES A D AY NEEDED 08/20/2018 10/18/2018 Inactive Protonix 40 mg table t,delayed release RxNorm: 981071 TAKE ONE TABLET BY [facility] DAILY 08/10/2018 02/05/2019 In active Carafate 1 gram tablet RxNorm: 637956 TAKE ONE TABLET BY MOUTH BEFORE MEALS AN D AT BEDTIME NEEDED FOR HEARTBURN 07/31/2018 12/27/2018 Inactive Protonix 40 mg table t,delayed release RxNorm: 379157 1 Tablet(s) BID 07/24/2018 07/23/2018 Inactive Protonix 40 mg table t,delayed release RxNorm: 211539 1 Tablet(s) daily 07/24/2018 08/09/2018 In active liothyronine 5 mcg t ablet RxNorm: 285165 TAKE ONE TABLET BY [facility] DAILY 07/19/2018 01/09/2019 In active baclofen 10 mg tablet RxNorm: 016850 TAKE ONE TABLET BY MOUTH THREE TIMES A D AY NEEDED 07/12/2018 09/09/2018 Inactive levothyroxine 175 mc g tablet RxNorm: 690974 1 Tablet(s) PO daily 07/11/2018 03/11/2019 Inactive Vitamin D2 50,000 un it capsule RxNorm: 7407213 1 Capsule(s) PO QW 07/11/2018 10/02/2018 Inactive trazodone 50 mg tablet RxNorm: 378662 TAKE ONE TABLET BY MOUTH EVERY NIGHT AT BEDTIME AND ONE-HALF TABLET BY MOUTH NEEDED 07/11/2018 08/19/2018 Inactive Vitamin D2 50,000 un it capsule RxNorm: 3896590 1 Capsule(s) PO QW 07/11/2018 07/10/2018 Inactive morphine 30 mg table t, crush resistant, extended release RxNorm: 1694902 1 Tablet(s) PO BID 07/05/2018 09/02/2018 Inactive oxymorphone 5 mg tablet RxNorm: 431914 1 Tablet(s) PO Q6 PRN 07/05/2018 09/02/2018 Inactive bupropion HCl XL 300 mg 24 hr tablet, extended release RxNorm: 073670 TAKE ONE TABLET BY MOUTH DAILY 06/27/2018 12/23/2018 Inactive Remeron 15 mg tablet RxNorm: 404812 TAKE ONE TABLET BY MOUTH EVERY NIGHT AT BEDTIME 06/27/2018 09/02/2018 Inactive tizanidine 4 mg tablet RxNorm: 363587 TAKE ONE TABLET BY MOUTH THREE TIMES A D AY NEEDED 06/20/2018 08/18/2018 Inactive doxycycline hyclate 100 mg tablet RxNorm: 9535108 1 Tablet(s) PO BID 06/18/2018 07/01/2018 Inactive Protonix 40 mg table t,delayed release RxNorm: 518134 TAKE ONE TABLET BY [facility] DAILY 06/11/2018 07/23/2018 In active doxycycline hyclate 100 mg tablet RxNorm: 9042054 1 Tablet(s) PO BID 05/22/2018 06/04/2018 Inactive baclofen 10 mg tablet RxNorm: 480678 TAKE ONE TABLET BY MOUTH THREE TIMES A D AY NEEDED 05/14/2018 07/11/2018 Inactive diclofenac sodium 75 mg tablet,delayed release RxNorm: 957497 TAKE ONE TABLET BY [facility] TWICE A DAY 05/07/2018 10/03/2018 Inactive oxymorphone 5 mg tablet RxNorm: 586396 1 Tablet(s) PO Q6 PRN 05/04/2018 07/02/2018 Inactive morphine 30 mg table t, crush resistant, extended release RxNorm: 8146674 1 Tablet(s) PO BID 05/04/2018 07/02/2018 Inactive doxycycline hyclate 100 mg tablet RxNorm: 102924 1 Tablet(s) PO BID 04/24/2018 04/23/2018 Inactive doxycycline hyclate 100 mg tablet RxNorm: 4119295 1 Tablet(s) PO BID 04/24/2018 05/03/2018 Inactive baclofen 10 mg tablet RxNorm: 680325 TAKE ONE TABLET BY MOUTH THREE TIMES A D AY NEEDED 04/13/2018 05/12/2018 Inactive trazodone 50 mg tablet RxNorm: 531081 TAKE ONE TABLET BY MOUTH EVERY NIGHT AT BEDTIME AND ONE-HALF TABLET BY MOUTH NEEDED 04/09/2018 06/07/2018 Inactive Questran 4 gram powd er for susp in a packet RxNorm: 523894 1 packet PO BID 04/06/2018 06/04/2018 In active Questran 4 gram powd er for susp in a packet RxNorm: 009934 1 packet PO BID 04/06/2018 04/05/2018 In active Carafate 1 gram tablet RxNorm: 089657 1 Tablet(s) PO AC & HS as needed for hea rtburn 03/28/2018 04/26/2018 Inactive baclofen 10 mg tablet RxNorm: 139073 TAKE ONE TABLET BY MOUTH THREE TIMES A D AY NEEDED 03/16/2018 04/12/2018 Inactive Protonix 40 mg table t,delayed release RxNorm: 767181 TAKE ONE TABLET BY [facility] DAILY 03/16/2018 06/10/2018 In active oxymorphone 5 mg tablet RxNorm: 196105 1 Tablet(s) PO Q6 PRN 02/27/2018 04/27/2018 Inactive morphine 30 mg table t, crush resistant, extended release RxNorm: 0665130 1 Tablet(s) PO BID 02/27/2018 04/27/2018 Inactive Belviq XR 20 mg tabl et,extended release RxNorm: 5599211 1 Tablet(s) PO daily 02/27/2018 01/06/2019 In active levothyroxine 100 mc g tablet RxNorm: 323004 1 Tablet(s) PO daily 02/27/2018 07/10/2018 Inactive take with 88mcg to = 188mcg daily levothyroxine 88 mcg tablet RxNorm: 309581 1 Tablet(s) PO daily 02/27/2018 07/10/2018 Inactive take with 100mcg to = 188mcg daily morphine 30 mg table t, crush resistant, extended release RxNorm: 5397681 1 Tablet(s) PO BID 02/14/2018 02/26/2018 Inactive levothyroxine 200 mc g tablet RxNorm: 167766 Tablet(s) TAKE ONE TA BLET BY MOUTH DAILY 01/18/2018 02/26/2018 Inactive Updated script baclofen 10 mg tablet RxNorm: 179423 Tablet(s) TAKE ONE TABLET BY MOUTH THREE TIMES A DAY NEEDED 01/15/2018 02/13/2018 Inactive morphine 30 mg table t, crush resistant, extended release RxNorm: 7348045 1 Tablet(s) PO BID 01/15/2018 02/13/2018 Inactive tizanidine 4 mg tablet RxNorm: 843850 TAKE ONE TABLET BY MOUTH THREE TIMES A D AY NEEDED 01/02/2018 04/01/2018 Inactive Request already responded t o by other means (e.g. phone or fax) bupropion HCl XL 300 mg 24 hr tablet, extended release RxNorm: 651828 TAKE ONE TABLET BY MOUTH DAILY 12/29/2017 06/26/2018 Inactive Tamiflu 75 mg capsule RxNorm: 351314 1 Capsule(s) PO BID 12/27/2017 12/31/2017 Inactive Tamiflu 75 mg capsule RxNorm: 357755 1 Capsule(s) PO BID 12/27/2017 12/26/2017 Inactive tizanidine 4 mg tablet RxNorm: 859290 1 Tablet(s) PO TID as needed 12/25/2017 01/01/2018 Inactive levothyroxine 175 mc g tablet RxNorm: 816731 1 Tablet(s) PO daily 12/14/2017 12/13/2017 Inactive levothyroxine 175 mc g tablet RxNorm: 692640 1 Tablet(s) PO daily 12/14/2017 01/17/2018 Inactive baclofen 10 mg tablet RxNorm: 197938 Tablet(s) TAKE ONE TABLET BY MOUTH THREE TIMES A DAY NEEDED 12/13/2017 01/11/2018 Inactive baclofen 10 mg tablet RxNorm: 658847 TAKE ONE TABLET BY MOUTH THREE TIMES A D AY NEEDED 12/13/2017 12/12/2017 Inactive morphine 30 mg table t, crush resistant, extended release RxNorm: 6772344 1 Tablet(s) PO BID 12/12/2017 01/14/2018 Inactive clonazepam 1 mg tablet RxNorm: 087938 1/2 Tablet(s) PO daily 12/01/2017 08/27/2018 Inactive trazodone 50 mg tablet RxNorm: 959986 1/2 to 1 Tablet(s) QHS as needed 12/01/2017 03/30/2018 In active Opana ER 15 mg table t, crush resistant, extended release RxNorm: 717111 1 Tablet(s) PO Q12H 12/01/2017 02/13/2018 Inactive oxymorphone 5 mg tablet RxNorm: 227183 1 Tablet(s) PO Q6 PRN 12/01/2017 02/26/2018 Inactive Remeron 15 mg tablet RxNorm: 446230 Tablet(s) TAKE ONE TABLET BY MOUTH EVERY NIGHT AT BEDTIME 12/01/2017 02/28/2018 Inactive trazodone 50 mg tablet RxNorm: 157907 1/2 Tablet(s) as needed 1 Tablet(s) PO Q HS 12/01/2017 11/30/2017 In active clonazepam 1 mg tablet RxNorm: 181307 1/2 Tablet(s) PO daily 11/30/2017 11/30/2017 Inactive Remeron 15 mg tablet RxNorm: 491792 TAKE ONE TABLET BY MOUTH EVERY NIGHT AT BEDTIME 11/29/2017 11/30/2017 Inactive levothyroxine 200 mc g tablet RxNorm: 103822 TAKE ONE TABLET BY [facility] DAILY 11/15/2017 12/13/2017 In active baclofen 10 mg tablet RxNorm: 635606 TAKE ONE TABLET BY MOUTH THREE TIMES A D AY NEEDED 11/07/2017 12/06/2017 Inactive diclofenac sodium 75 mg tablet,delayed release RxNorm: 386706 1 Tablet(s) PO BID 11/07/2017 05/05/2018 In active liothyronine 5 mcg t ablet RxNorm: 101921 TAKE ONE TABLET BY [facility] DAILY 10/27/2017 07/18/2018 In active tizanidine 4 mg tablet RxNorm: 042062 1 Tablet(s) PO TID as needed 10/18/2017 12/16/2017 Inactive oxymorphone 5 mg tablet RxNorm: 062867 1 Tablet(s) PO Q6 PRN 09/29/2017 11/27/2017 Inactive morphine 30 mg table t, crush resistant, extended release RxNorm: 3013625 1 Tablet(s) PO BID 09/29/2017 11/28/2017 Inactive baclofen 10 mg tablet RxNorm: 903950 1 Tablet(s) PO TID as needed 09/11/2017 10/10/2017 Inactive baclofen 10 mg tablet RxNorm: 848301 1 Tablet(s) PO TID as needed 08/11/2017 09/09/2017 Inactive Opana ER 15 mg table t, crush resistant, extended release RxNorm: 960469 1 Tablet(s) PO Q12H 08/11/2017 09/28/2017 Inactive Remeron 15 mg tablet RxNorm: 077231 TAKE ONE TABLET BY MOUTH EVERY NIGHT AT BEDTIME 08/02/2017 10/30/2017 Inactive oxymorphone 5 mg tablet RxNorm: 100920 1 Tablet(s) PO Q6 PRN 08/02/2017 09/28/2017 Inactive Opana ER 5 mg tablet , crush resistant, extended release RxNorm: 801642 1 Tablet(s) PO Q6 PRN 08/01/2017 08/10/2017 Inactive Protonix 40 mg table t,delayed release RxNorm: 659198 TAKE ONE TABLET BY [facility] DAILY 06/26/2017 06/25/2017 In active Protonix 40 mg table t,delayed release RxNorm: 601295 TAKE ONE TABLET BY [facility] DAILY 06/26/2017 02/05/2019 In active bupropion HCl XL 300 mg 24 hr tablet, extended release RxNorm: 231534 TAKE ONE TABLET BY MOUTH DAILY 06/13/2017 12/09/2017 Inactive tizanidine 4 mg tablet RxNorm: 847916 1 Tablet(s) PO TID as needed 06/13/2017 06/12/2017 Inactive tizanidine 4 mg tablet RxNorm: 713664 1 Tablet(s) PO TID as needed 06/13/2017 09/10/2017 Inactive baclofen 10 mg tablet RxNorm: 260113 1 Tablet(s) PO TID as needed 06/13/2017 07/12/2017 Inactive Opana ER 15 mg table t, crush resistant, extended release RxNorm: 951296 1 Tablet(s) PO Q12H 06/09/2017 08/07/2017 Inactive Opana ER 5 mg tablet , crush resistant, extended release RxNorm: 706373 1 Tablet(s) PO Q6 PRN 06/09/2017 07/31/2017 Inactive diclofenac sodium 75 mg tablet,delayed release RxNorm: 787534 1 Tablet(s) PO BID 06/09/2017 09/06/2017 In active clonazepam 1 mg tablet RxNorm: 229033 1/2 Tablet(s) PO daily 05/24/2017 11/18/2017 Inactive bupropion HCl XL 300 mg 24 hr tablet, extended release RxNorm: 005855 TAKE ONE TABLET BY MOUTH DAILY 03/16/2017 06/12/2017 Inactive clonazepam 1 mg tablet RxNorm: 667076 1/2 Tablet(s) PO daily 02/22/2017 05/18/2017 Inactive Remeron 15 mg tablet RxNorm: 890863 TAKE ONE TABLET BY MOUTH EVERY NIGHT AT BEDTIME 02/06/2017 2017 Inactive Protonix 40 mg table t,delayed release RxNorm: 809549 TAKE ONE TABLET BY [facility] DAILY 01/26/2017 06/24/2017 In active mupirocin 2 % topica l ointment RxNorm: 761115 1 Application TOP BID 01/12/2017 01/18/2017 Inactive Bactrim DS 800 mg-16 0 mg tablet RxNorm: 993646 1 Tablet(s) PO BID 11/17/2016 11/23/2016 Inactive mupirocin 2 % topica l ointment RxNorm: 479901 1 Application TOP BID 11/10/2016 11/16/2016 Inactive Bactrim DS 800 mg-16 0 mg tablet RxNorm: 437607 1 Tablet(s) PO BID 11/10/2016 11/16/2016 Inactive bupropion HCl XL 300 mg 24 hr tablet, extended release RxNorm: 515544 TAKE ONE TABLET BY MOUTH DAILY 11/07/2016 03/06/2017 Inactive liothyronine 5 mcg t ablet RxNorm: 749850 1 Tablet(s) PO daily 11/01/2016 10/26/2017 Inactive levothyroxine 200 mc g tablet RxNorm: 039264 1 Tablet(s) PO daily 10/04/2016 09/28/2017 Inactive clonazepam 1 mg tablet RxNorm: 292947 1/2 Tablet(s) PO daily 09/21/2016 03/18/2017 Inactive clonazepam 1 mg tablet RxNorm: 817828 1/2 Tablet(s) PO daily 09/16/2016 09/20/2016 Inactive Abilify 2 mg tablet RxNorm: 319517 1 Tablet(s) PO daily 09/16/2016 10/13/2016 Inactive trazodone 50 mg tablet RxNorm: 482762 1/2 Tablet(s) as needed 1 Tablet(s) PO Q HS 09/16/2016 01/13/2017 In active morphine 15 mg immed iate release tablet RxNorm: 724852 1 Tablet(s) PO Q6 PRN 09/16/2016 04/06/2017 In active baclofen 10 mg tablet RxNorm: 441285 1 Tablet(s) PO TID as needed 09/16/2016 06/12/2017 Inactive MS Contin 30 mg tabl et,extended release RxNorm: 488082 1 Tablet(s) PO Q12H 09/16/2016 04/06/2017 In active Remeron 15 mg tablet RxNorm: 576247 1 Tablet(s) PO QHS 08/19/2016 09/15/2016 Inactive levothyroxine 200 mc g tablet RxNorm: 234417 1 Tablet(s) PO daily 08/11/2016 10/03/2016 Inactive bupropion HCl XL 300 mg 24 hr tablet, extended release RxNorm: 145617 TAKE ONE TABLET BY MOUTH DAILY 08/11/2016 11/06/2016 Inactive Protonix 40 mg table t,delayed release RxNorm: 220137 1 Tablet(s) PO daily 06/17/2016 12/13/2016 In active bupropion HCl XL 300 mg 24 hr tablet, extended release RxNorm: 752652 1 Tablet(s) PO daily 05/12/2016 07/10/2016 Inactive bupropion HCl XL 300 mg 24 hr tablet, extended release RxNorm: 808059 1 Tablet(s) PO daily 05/12/2016 05/11/2016 Inactive Cialis 20 mg tablet RxNorm: 680773 1 Tablet(s) PO PRN 02/16/2016 No Stop Date Active not more than 1 tab in 24 hours morphine ER 10 mg ca psule,extended release pellets RxNorm: 488933 1 Tablet(s) PO Q6 as needed 02/16/2016 11/16/2016 Inactive clonazepam 1 mg tablet RxNorm: 798586 1/2 Tablet(s) PO BID 02/16/2016 09/15/2016 Inactive trazodone 50 mg tablet RxNorm: 424592 1/2 Tablet(s) as needed 1 Tablet(s) PO Q HS 02/16/2016 08/18/2016 In active trazodone 50 mg tablet RxNorm: 880121 1/2 Tablet(s) 1 Tablet(s) PO QHS 11/17/2015 02/15/2016 In active trazodone 50 mg tablet RxNorm: 340583 1 Tablet(s) PO QHS 10/19/2015 11/16/2015 Inactive levothyroxine 200 mc g tablet RxNorm: 543275 1 Tablet(s) PO daily 10/02/2015 08/10/2016 Inactive Wellbutrin XL 150 mg 24 hr tablet, extended release RxNorm: 813609 1 Tablet(s) PO daily 10/02/2015 05/11/2016 Inactive levothyroxine 200 mc g tablet RxNorm: 880782 1 Tablet(s) PO daily 09/30/2015 10/01/2015 Inactive Wellbutrin XL 150 mg 24 hr tablet, extended release RxNorm: 207948 1 Tablet(s) PO daily 09/30/2015 10/01/2015 Inactive trazodone 50 mg tablet RxNorm: 867902 1 Tablet(s) PO QHS 09/11/2015 10/10/2015 Inactive trazodone 50 mg tablet RxNorm: 393724 1 Tablet(s) PO QHS 09/11/2015 09/10/2015 Inactive Cymbalta 30 mg capsu le,delayed release RxNorm: 884084 1 Capsule(s) PO daily 09/07/2015 11/16/2015 In active Cymbalta 60 mg capsu le,delayed release RxNorm: 851180 1 Capsule(s) PO daily 08/31/2015 08/30/2015 In active Cymbalta 30 mg capsu le,delayed release RxNorm: 357172 1 Capsule(s) PO daily take with 60mg to make 90 mg daily 08/31/2015 09/06/2015 Inactive Cymbalta 30 mg capsu le,delayed release RxNorm: 260313 1 Capsule(s) PO daily take with 60mg to make 90 mg daily 08/31/2015 08/30/2015 Inactive Cymbalta 60 mg capsu le,delayed release RxNorm: 387633 1 Capsule(s) PO daily x 7 days and then increase to 90mg daily 08/31/2015 09/07/2015 Inactive levothyroxine 200 mc g tablet RxNorm: 658584 1 Tablet(s) PO daily 08/14/2015 09/29/2015 Inactive Wellbutrin XL 150 mg 24 hr tablet, extended release RxNorm: 470344 1 Tablet(s) PO daily 07/14/2015 09/29/2015 Inactive Cialis 20 mg tablet RxNorm: 997329 1 Tablet(s) PO PRN 07/02/2015 02/15/2016 Inactive not more than 1 tab in 24 hours liothyronine 5 mcg t ablet RxNorm: 896919 1 Tablet(s) PO daily 2015 05/29/2016 Inactive clonazepam 1 mg tablet RxNorm: 686783 1 Tablet(s) PO TID 2015 02/15/2016 Inactive minocycline 50 mg ta blet RxNorm: 037571 1 Tablet(s) PO daily 2015 05/11/2016 Inactive Wellbutrin XL 150 mg 24 hr tablet, extended release RxNorm: 340772 1 Tablet(s) PO daily 04/23/2015 07/13/2015 Inactive levothyroxine 200 mc g tablet RxNorm: 115890 1 Tablet(s) PO daily 04/23/2015 08/13/2015 Inactive Aleve oral RxNorm: 388631 oral No Start Date Active Tylenol 500 mg RxNorm: oral No Start Date Active morphine ER 15 mg ta blet,extended release RxNorm: 150538 oral No Start Date 11/16/2016 Inactive Trazadone 25 mg RxNorm: 2 PO daily No Start Date 09/11/2015 Inactive diclofenac oral RxNorm: 3355 oral No Start Date 05/04/2018 Inactive clonazepam 1 mg tablet RxNorm: 741948 1 Tablet(s) PO QHS No Start Date 06/04/2015 Inactive Wellbutrin XL 150 mg 24 hr tablet, extended release RxNorm: 656845 1 Tablet(s) PO daily No Start Date 04/22/2015 Inactive minocycline 50 mg ta blet RxNorm: 431749 1 Tablet(s) PO daily No Start Date 06/04/2015 Inactive methadone 5 mg tablet RxNorm: 422124 1 Tablet(s) PO Q8 No Start Date 02/15/2016 Inactive Protonix 40 mg table t,delayed release RxNorm: 025929 Tablet(s) PO daily No Start Date 06/16/2016 Inactive Opana ER 15 mg table t, crush resistant, extended release RxNorm: 436483 1 Tablet(s) PO Q12H No Start Date 06/08/2017 Inactive MS Contin 30 mg tabl et,extended release RxNorm: 935506 1 Tablet(s) PO Q12H No Start Date 02/15/2016 Inactive Opana ER 15 mg table t, crush resistant, extended release RxNorm: 166497 1 Tablet(s) PO BID No Start Date 09/15/2016 Inactive liothyronine 5 mcg t ablet RxNorm: 250695 1 Tablet(s) PO daily No Start Date 06/04/2015 Inactive Cialis 20 mg tablet RxNorm: 254063 1 Tablet(s) PO PRN No Start Date 07/01/2015 Inactive not more than 1 tab in 24 hours baclofen 10 mg tablet RxNorm: 030346 1 Tablet(s) PO TID as needed No Start Date 05/11/2016 Inactive morphine 15 mg immed iate release tablet RxNorm: 404670 1 Tablet(s) PO Q6 PRN as needed No Start Date 02/15/2016 Inactive levothyroxine 200 mc g tablet RxNorm: 662570 1 Tablet(s) PO daily No Start Date 04/22/2015 Inactive Opana ER 5 mg tablet , crush resistant, extended release RxNorm: 223373 1 Tablet(s) PO Q6 No Start Date 06/08/2017 Inactive Medication Administered Medication Codes Instruc tions Start Date Status cyanocobalamin (vit B-12) 1,000 mcg/mL injection solut ion RxNorm: 464466 1Milliliter 12/27/2018 No longer Active Immunizations No [...] 29.4 pg 01/07/2019 Cbc With Differential Ord2 [place]% 10.9 % 01/07/2019 Cbc With Differential Ord2 [...] 1.77 K/ul 01/07/2019 Cbc With Differential Ord2 [place] ABS# 0.5 K/ul 01/07/2019 Cbc With Differential Ord2 [place] ABS# 0.1 K/ul 01/07/2019 Cbc With Differential Ord2 Baso ABS# 0.0 K/ul 01/07/2019 Free T4 Moe823 FREE T4 2.05 ng/dL 01/07/2019 Lipid Ord30 CHOL 189 mg/dL 01/07/2019 Lipid Ord30 HDL 58.0 mg/dl 01/07/2019 Lipid Ord30 TRIG 155 mg/dL 01/07/2019 Lipid Ord30 LDL 100 mg/dL 01/07/2019 Lipid Ord30 C/HDL 3.3 Ratio 01/07/2019 Comp Metabolic Euf164 NA 137 mEq/L 01/07/2019 Comp Metabolic Zqb323 K 4.2 mEq/L 01/07/2019 Comp Metabolic Syu731 CL 104 mEq/L 01/07/2019 Comp Metabolic Ggp056 CO2 26.0 mEq/L 01/07/2019 Comp Metabolic Ckl644 AN ION GAP 11 01/07/2019 Comp Metabolic Vlt880 GL UCOSE 64 mg/dL 01/07/2019 Comp Metabolic Ctg327 Cr eat 0.8 mg/dL 01/07/2019 Comp Metabolic Kmo366 eG FR 110 ml/min/1.73m2 12/28 Comp Metabolic Qzh860 BUN 7 mg/dL 01/07/2019 Comp Metabolic Syl464 B/ C Ratio 9.0 Ratio 01/07/2019 Comp Metabolic Mlu828 CA LCIUM 9.7 mg/dL 01/07/2019 Comp Metabolic Qdb605 AL K PHOS 64 U/L 01/07/2019 Comp Metabolic Xrw662 T(SGOT) 32 U/L 01/07/2019 Comp Metabolic Znh099 AL T(SGPT) 44 U/L 01/07/2019 Comp Metabolic Tyu186 BI LI T 0.3 mg/dL 01/07/2019 Comp Metabolic Ngf833 AL BUMIN 4.3 g/dL 01/07/2019 Comp Metabolic Jst654 TP RO 6.5 g/dL 01/07/2019 Comp Metabolic Upy532 GL OB 2.2 g/dL 01/07/2019 Comp Metabolic Oda278 A/ G Ratio 2.0 Ratio 01/07/2019 Comp Metabolic Ako159 Os mo 270 mOsmo 01/07/2019 Free T4 Vwx263 FREE T4 1.54 ng/dL 11/05/2018 Vitamin D 25 Oh Czx6616 VITAMIN D, 25 HYDROXY 40.65 ng/mL 11/05/2018 Tsh Ord6 TSH (3rd IS) 0.02 uIU/mL 11/05/2018 Vitamin D 25 Oh Ibr4654 VITAMIN D, 25 HYDROXY 30.96 ng/mL 07/06/2018 Comp Metabolic Kya192 NA 141 mEq/L 07/06/2018 Comp Metabolic Xda583 K 4.2 mEq/L 07/06/2018 Comp Metabolic Eks093 CL 103 mEq/L 07/06/2018 Comp Metabolic Akb451 CO2 29.0 mEq/L 07/06/2018 Comp Metabolic Urn058 AN ION GAP 13 07/06/2018 Comp Metabolic Qtt365 GL UCOSE 105 mg/dL 07/06/2018 Comp Metabolic Hdv759 Cr eat 0.8 mg/dL 07/06/2018 Comp Metabolic Lbt622 eG FR 101 ml/min/1.73m2 06/27 Comp Metabolic Ybs273 BUN 7 mg/dL 07/06/2018 Comp Metabolic Vyt080 B/ C Ratio 8.3 Ratio 07/06/2018 Comp Metabolic Njj634 CA LCIUM 9.9 mg/dL 07/06/2018 Comp Metabolic Fwe867 AL K PHOS 65 U/L 07/06/2018 Comp Metabolic Bao441 T(SGOT) 21 U/L 07/06/2018 Comp Metabolic Epx578 AL T(SGPT) 31 U/L 07/06/2018 Comp Metabolic Cnd247 BI LI T 0.3 mg/dL 07/06/2018 Comp Metabolic Giq262 AL BUMIN 4.3 g/dL 07/06/2018 Comp Metabolic Sfj604 TP RO 6.4 g/dL 07/06/2018 Comp Metabolic Nbq264 GL OB 2.1 g/dL 07/06/2018 Comp Metabolic Jbj127 A/ G Ratio 2.0 Ratio 07/06/2018 Comp Metabolic Xgp504 Os mo 280 mOsmo 07/06/2018 Cbc With [...] 29.3 pg 07/06/2018 Cbc With Differential Ord2 [place]% 10.5 % 07/06/2018 Cbc With Differential Ord2 [...] 1.89 K/ul 07/06/2018 Cbc With Differential Ord2 [place] ABS# 0.5 K/ul 07/06/2018 Cbc With Differential Ord2 Eos ABS# 0.3 K/ul 07/06/2018 Cbc With Differential Ord2 Baso ABS# 0.0 K/ul 07/06/2018 Total Psa Ord10 PSA 0.34 ng/mL 07/06/2018 Tsh Ord6 TSH (3rd IS) 0.02 uIU/mL 07/06/2018 Testosterone Sqo842 Testo 400.6 ng/dL 07/06/2018 Free T4 Pun072 FREE T4 1.48 ng/dL 07/06/2018 [place] Spotted Fever Igg/Igm 62701 3 PARTHA MT SPOTTED FEVER IGM EIA . 04/04/2018 [place] Spotted Fever Igg/Igm 47179 3 RMSF, IGM 0.24 index 04/04/2018 [place] Spotted Fever Igg/Igm 11446 3 PARTHA MT SPOTTED FEVER IGG EIA FLEX . 04/04/2018 [place] Spotted Fever Igg/Igm 51570 3 RMSF, IGG SCREEN-FLEX Equivocal 04/04/2018 Partha Mtn Spot'D Fev Igg 072218 RMSF, IGG- TITER IFA <1:64 04/04/2018 Ehrlichia Chaffeensis Antibody Igg [id number] EHRLICHIA CHAFFEENSIS IGG <1:64 04/02/2018 Ehrlichia Chaffeensis Antibody Igm [id number] EHRLICHIA CHAFFEENSIS IGM < 1:16 04/02/2018 Lymes Disease Total Antibodies With Western Blot Refle x 113750 B. BURGDORFERI, IGG/IGM 0.23 03/30/2018 Lymes Disease Total Antibodies With Western Blot Refle x [id number] 03/30/2018 Cbc With Differential Ord2 WBC 5.04 [...] 28.7 pg 03/28/2018 Cbc With Differential Ord2 [place]% 16.1 % 03/28/2018 Cbc With Differential Ord2 [...] 1.37 K/ul 03/28/2018 Cbc With Differential Ord2 [place] ABS# 0.8 K/ul 03/28/2018 Cbc With Differential Ord2 Eos ABS# 0.1 K/ul 03/28/2018 Cbc With Differential Ord2 Baso ABS# 0.0 K/ul 03/28/2018 Comp Metabolic Tti698 NA 136 mEq/L 02/16/2018 Comp Metabolic Ser600 K 3.9 mEq/L 02/16/2018 Comp Metabolic Syc062 CL 103 mEq/L 02/16/2018 Comp Metabolic Cxv859 CO2 23.0 mEq/L 02/16/2018 Comp Metabolic Btb001 AN ION GAP 14 02/16/2018 Comp Metabolic Qbq962 GL UCOSE 133 mg/dL 02/16/2018 Comp Metabolic Daz001 Cr eat 0.8 mg/dL 02/16/2018 Comp Metabolic Mfd899 eG FR 103 ml/min/1.73m2 01/26 Comp Metabolic Wjm894 BUN 7 mg/dL 02/16/2018 Comp Metabolic Gje082 B/ C Ratio 8.4 Ratio 02/16/2018 Comp Metabolic Hpu425 CA LCIUM 9.3 mg/dL 02/16/2018 Comp Metabolic Wct421 AL K PHOS 71 U/L 02/16/2018 Comp Metabolic Ime715 T(SGOT) 42 U/L 02/16/2018 Comp Metabolic Xrg409 AL T(SGPT) 69 U/L 02/16/2018 Comp Metabolic Zsn261 BI LI T 0.3 mg/dL 02/16/2018 Comp Metabolic Oay838 AL BUMIN 4.1 g/dL 02/16/2018 Comp Metabolic Fwl095 TP RO 6.3 g/dL 02/16/2018 Comp Metabolic Prv507 GL OB 2.2 g/dL 02/16/2018 Comp Metabolic Alu172 A/ G Ratio 1.8 Ratio 02/16/2018 Comp Metabolic Xbh306 Os mo 272 mOsmo 02/16/2018 Free T4 Ioh910 FREE T4 1.85 ng/dL 02/16/2018 Ferritin Ord22 FERRITIN 161.7 ng/mL 02/16/2018 Tsh Ord6 TSH (3rd IS) 0.01 uIU/mL 02/16/2018 Test(s) Not Perfromed [id number] Test(s) Not Performed Test(s) Not Performed. See Below: 02/16/2018 Test(s) Not Perfromed [id number] TEST NAME CBC 02/16/2018 Test(s) Not Perfromed [id number] Rejection Reason No Suitable Specimen Receive d 02/16/2018 Test(s) Not Perfromed [id number] COMMENT Please Recollect Sample 02/16/2018 Test(s) Not Perfromed [id number] Fan Blade Truer Fernando Goyal 02/16/2018 Tibc Ord40 Iron 138 [...] 26.4 pg 01/05/2018 Cbc With Differential Ord2 [place]% 11.9 % 01/05/2018 Cbc With Differential Ord2 [...] 2.08 K/ul 01/05/2018 Cbc With Differential Ord2 [place] ABS# 0.6 K/ul 01/05/2018 Cbc With Differential Ord2 Eos ABS# 0.2 K/ul 01/05/2018 Cbc With Differential Ord2 Baso ABS# 0.0 K/ul 01/05/2018 Ferritin Ord22 FERRITIN 5.7 ng/mL 12/06/2017 Tibc Ord40 Iron 33 ug/dl 12/06/2017 Tibc Ord40 UIBC 431 ug/dL 12/06/2017 Tibc Ord40 TIBC 464 ug/dL 12/06/2017 Tibc Ord40 Fe-%Sat 7.1 % 12/06/2017 Free T4 Mss320 FREE T4 1.82 ng/dL 12/01/2017 Tsh Ord6 [...] 27.0 pg 12/01/2017 Cbc With Differential Ord2 [place]% 10.6 % 12/01/2017 Cbc With Differential Ord2 [...] 1.92 K/ul 12/01/2017 Cbc With Differential Ord2 [place] ABS# 0.4 K/ul 12/01/2017 Cbc With Differential Ord2 Eos ABS# 0.2 K/ul 12/01/2017 Cbc With Differential Ord2 Baso ABS# 0.0 K/ul 12/01/2017 Comp Metabolic Pwj562 NA 136 mEq/L 12/01/2017 Comp Metabolic Vjq294 K 4.6 mEq/L 12/01/2017 Comp Metabolic Cqz540 CL 102 mEq/L 12/01/2017 Comp Metabolic Hcf577 CO2 27.0 mEq/L 12/01/2017 Comp Metabolic Rtt288 AN ION GAP 12 12/01/2017 Comp Metabolic Eve192 GL UCOSE 90 mg/dL 12/01/2017 Comp Metabolic Jpw010 Cr eat 0.7 mg/dL 12/01/2017 Comp Metabolic Mkg332 eG FR 123 ml/min/1.73m2 03/2018 Comp Metabolic Caz376 BUN 4 mg/dL 12/01/2017 Comp Metabolic Gws325 B/ C Ratio 5.6 Ratio 12/01/2017 Comp Metabolic Bwg526 CA LCIUM 9.0 mg/dL 12/01/2017 Comp Metabolic Yyc556 AL K PHOS 67 U/L 12/01/2017 Comp Metabolic Wgu674 T(SGOT) 30 U/L 12/01/2017 Comp Metabolic Wjd113 AL T(SGPT) 29 U/L 12/01/2017 Comp Metabolic Mfz857 BI LI T 0.3 mg/dL 12/01/2017 Comp Metabolic Iwu695 AL BUMIN 4.1 g/dL 12/01/2017 Comp Metabolic Ilw889 TP RO 6.1 g/dL 12/01/2017 Comp Metabolic Vwb457 GL OB 2.0 g/dL 12/01/2017 Comp Metabolic Jgi478 A/ G Ratio 2.0 Ratio 12/01/2017 Comp Metabolic Phw204 Os mo 268 mOsmo 12/01/2017 Comp Metabolic Ete564 NA 136 mEq/L 02/16/2016 Comp Metabolic Gtq306 K 4.2 mEq/L 02/16/2016 Comp Metabolic Ffj323 CL 104 mEq/L 02/16/2016 Comp Metabolic Hyb979 CO2 20.0 mEq/L 02/16/2016 Comp Metabolic Rjf864 AN ION GAP 16 02/16/2016 Comp Metabolic Egl672 GL UCOSE 71 mg/dL 02/16/2016 Comp Metabolic Buw694 Cr eat 0.8 mg/dL 02/16/2016 Comp Metabolic Vcg395 eG FR 113 ml/min/1.73m2 01/26 Comp Metabolic Bew743 BUN 7 mg/dL 02/16/2016 Comp Metabolic Gyy464 B/ C Ratio 9.1 Ratio 02/16/2016 Comp Metabolic Vej935 CA LCIUM 9.4 mg/dL 02/16/2016 Comp Metabolic Kkb353 AL K PHOS 57 U/L 02/16/2016 Comp Metabolic Vdu071 T(SGOT) 30 U/L 02/16/2016 Comp Metabolic Qtr388 AL T(SGPT) 27 U/L 02/16/2016 Comp Metabolic Giv073 BI LI T 0.2 mg/dL 02/16/2016 Comp Metabolic Air219 AL BUMIN 4.4 g/dL 02/16/2016 Comp Metabolic Hjy554 TP RO 6.5 g/dL 02/16/2016 Comp Metabolic Kfo637 GL OB 2.1 g/dL 02/16/2016 Comp Metabolic Xsx924 A/ G Ratio 2.1 Ratio 02/16/2016 Comp Metabolic Aig464 Os mo 268 mOsmo 02/16/2016 Free T4 Oyd720 FREE T4 1.20 ng/dL 02/16/2016 Cbc With [...] 30.2 pg 02/16/2016 Cbc With Differential Ord2 [place]% 9.6 % 02/16/2016 Cbc With Differential Ord2 [...] 1.50 K/ul 02/16/2016 Cbc With Differential Ord2 [place] ABS# 0.5 K/ul 02/16/2016 Cbc With Differential [...] Respiratory dyspnea on exertion 07/05/2018 Respiratory snoring 0807/2018 Gastrointestinal No constipation 07/05/2018 Gastrointestinal No diarrhea [...] Procedure Codes Date THER/PROPH/DIAG INJ SC/IM CPT-4: 90187 12/27/2018 VITAMIN B12 INJECTION CPT-4: J3420 12/27/2018 PPPS, SUBSEQ VISIT CPT- 4: G0439 09/17/2018 Vital Signs Date Vital 05/14/2019 Blood Pressure 1: 120/70 Code: 8480-6 BMI: 36.2 Code: 37761-0 Heart Rate 1: 65 bpm Height: 5'6" SpO2: 98% Weight: 224 lbs 03/12/2019 Blood Pressure 1: 130/76 Code: 8480-6 BMI: 38.6 Code: 18668-7 Heart Rate 1: 83 bpm Height: 5'6" SpO2: 99% Weight: 239 lbs 01/07/2019 Blood Pressure 1: 124/80 Code: 8480-6 BMI: 38.3 Code: 19993-9 Heart Rate 1: 88 bpm Height: 5'6" SpO2: 97% Weight: 237 lbs 12/27/2018 Blood Pressure 1: 122/80 Code: 8480-6 BMI: 38.6 Code: 04451-3 Heart Rate 1: 72 bpm Height: 5'6" SpO2: 98% Weight: 239 lbs 11/05/2018 Blood Pressure 1: 122/64 Code: 8480-6 BMI: 37.4 Code: 08065-3 Heart Rate 1: 66 bpm Height: 5'6" SpO2: 97% Weight: 232 lbs 09/27/2018 Blood Pressure 1: 92/66 Code: 8480-6 BMI: 37.9 Code: 10528-6 Heart Rate 1: 66 bpm Height: 5'6" SpO2: 98% Weight: 235 lbs 09/17/2018 Blood Pressure 1: 11072 Code: 8480-6 BMI: 38.3 Code: 35482-8 Heart Rate 1: 77 bpm Height: 5'6" SpO2: 95% Waist Measure (cm): 102 cm Weight: 237 lbs 09/03/2018 Blood Pressure 1: 122/68 Code: 8480-6 BMI: 37.6 Code: 57448-5 Heart Rate 1: 78 bpm Height: 5'6" SpO2: 97% Weight: 233 lbs 07/05/2018 Blood Pressure 1: 94/62 Code: 8480-6 BMI: 36.8 Code: 86855-6 Heart Rate 1: 88 bpm Height: 5'6" SpO2: 99% Weight: 228 lbs 05/04/2018 Blood Pressure 1: 11080 Code: 8480-6 BMI: 35.5 Code: 98821-3 Heart Rate 1: 80 bpm Height: 5'6" SpO2: 99% Weight: 220 lbs 03/28/2018 Blood Pressure 1: 11072 Code: 8480-6 BMI: 35.0 Code: 93367-5 Heart Rate 1: 80 bpm Height: 5'6" SpO2: 98% Temperature: 36.2 (C ) / 97.1 (F) Weight: 217 lbs 02/27/2018 Blood Pressure 1: 136/76 Code: 8480-6 BMI: 36.0 Code: 19437-5 Heart Rate 1: 80 bpm Height: 5'6" SpO2: 98% Weight: 223 lbs 12/01/2017 Blood Pressure 1: 132/72 Code: 8480-6 BMI: 33.4 Code: 18398-3 Heart Rate 1: 82 bpm Height: 5'6" SpO2: 97% Weight: 207 lbs 09/29/2017 Blood Pressure 1: 124/68 Code: 8480-6 BMI: 32.1 Code: 15851-0 Heart Rate 1: 77 bpm Height: 5'6" SpO2: 98% Weight: 199 lbs 08/11/2017 Blood Pressure 1: 154/82 Code: 8480-6 BMI: 31.6 Code: 65351-8 Heart Rate 1: 75 bpm Height: 5'6" SpO2: 98% Weight: 196 lbs 06/09/2017 Blood Pressure 1: 148/88 Code: 8480-6 BMI: 28.6 Code: 49245-3 Heart Rate 1: 88 bpm Height: 5'6" SpO2: 98% Weight: 177 lbs 04/07/2017 Blood Pressure 1: 140/84 Code: 8480-6 BMI: 30.3 Code: 53580-3 Heart Rate 1: 81 bpm Height: 5'6" SpO2: 99% Weight: 188 lbs 11/17/2016 Blood Pressure 1: 130/72 Code: 8480-6 Heart Rate 1: 63 bpm Height: SpO2: 93% Weight: 11/10/2016 Blood Pressure 1: 128/86 Code: 8480-6 BMI: 30.3 Code: 98443-3 Heart Rate 1: 84 bpm Height: 5'6" SpO2: 96% Weight: 188 lbs 10/14/2016 Heigh t: 5'6" 09/16/2016 Blood Pressure 1: 130/80 Code: 8480-6 BMI: 30.3 Code: 46676-9 Heart Rate 1: 67 bpm Height: 5'6" SpO2: 99% Weight: 188 lbs 08/19/2016 Blood Pressure 1: 110/62 Code: 8480-6 BMI: 29.9 Code: 95029-8 Heart Rate 1: 70 bpm Height: 5'6" SpO2: 97% Weight: 185 lbs 06/17/2016 Blood Pressure 1: 112/68 Code: 8480-6 BMI: 27.6 Code: 53503-1 Heart Rate 1: 61 bpm Height: 5'6" SpO2: 98% Weight: 171 lbs 05/12/2016 Blood Pressure 1: 130/76 Code: 8480-6 BMI: 29.7 Code: 34126-7 Heart Rate 1: 103 bpm Height: 5'6" SpO2: 98% Weight: 184 lbs 02/16/2016 Blood Pressure 1: 140/82 Code: 8480-6 BMI: 28.7 Code: 77571-4 Heart Rate 1: 66 bpm Height: 5'6" SpO2: 99% Weight: 178 lbs 11/17/2015 Blood Pressure 1: 120/74 Code: 8480-6 BMI: 29.4 Code: 29728-3 Heart Rate 1: 90 bpm Height: 5'6" SpO2: 94% Weight: 182 lbs 08/28/2015 Blood Pressure 1: 128/76 Code: 8480-6 BMI: 27.9 Code: 31362-2 Heart Rate 1: 80 bpm Height: 5'6" SpO2: 98% Weight: 173 lbs 05/28/2015 Blood Pressure 1: 122/70 Code: 8480-6 BMI: 27.0 Code: 96066-4 Heart Rate 1: 74 bpm Height: 5'6" SpO2: 98% Weight: 167 lbs 04/23/2015 Blood Pressure 1: 110/60 Code: 8480-6 BMI: 27.0 Code: 05375-3 Heart Rate 1: 68 bpm Height: 5'6" [...] o ngoing 05/14/2019 None [facility] [...] and Resolution ongoing 09/03/2018 None hypothyroid Quality first aid nurse fe 09/03/2018 None hypothyroid Onset and Resolution [...] fatigue Quality constant 07/05/2018 None hypothyroid Quality first aid nurse fe 07/05/2018 None hypothyroid Onset and Resolution [...] Findings weight loss 03/28/2018 None hypothyroid Quality first aid nurse fe 02/27/2018 None hypothyroid Onset and Resolution [...] Encounters Encounter Performer Loca tion Codes Date ([id number]) 71463 EST. P ATIENT, LEVEL III Diagnosis: Chronic pain syndrome[ICD10: G89.4] Diagnosis: Hypothyroidism, unspecified[ICD10: E03.9] [facility] CPT-4: 71371 05/14/2019 ([id number]) 37501 EST. P ATSTACEY, LEVEL III Diagnosis: Hypothyroidism, unspecified[ICD10: E03.9] Diagnosis: Chronic pain syndrome[ICD10: G89.4] [facility] CPT-4: 57727 03/12/2019 ([id number]) 88707 EST. P ATSTACEY, LEVEL IV Diagnosis: Chronic pain syndrome[ICD10: G89.4] Diagnosis: Hypothyroidism, unspecified[ICD10: E03.9] Diagnosis: Encounter for screening for lipoid disorders[ICD10: Z13.220] Diagnosis: Major depressive disorder, recurrent, moderate[ICD10: F33.1] Leydi Jacobo MD, [facility] CPT-4: 76379 01/07/2019 ([id number]) 98818 EST. P ATIENT, LEVEL III Diagnosis: Obstructive sleep apnea (adult) (pediatric)[ICD10: G47.33] Diagnosis: Hypothyroidism, unspecified[ICD10: E03.9] Diagnosis: Vitamin B12 deficiency anemia, unspecified[ICD10: D51.9] Leydi Jacobo MD, [facility] CPT-4: 33514 12/27/2018 ([id number]) 50559 EST. P ATIENT, LEVEL IV Diagnosis: Hypothyroidism, unspecified[ICD10: E03.9] Diagnosis: Major depressive disorder, recurrent, moderate[ICD10: F33.1] Diagnosis: Chronic pain syndrome[ICD10: G89.4] Leydi Jacobo MD, [facility] CPT-4: 51997 11/05/2018 ([id number]) 31339 EST. P ATIENT, LEVEL IV Diagnosis: Chronic pain syndrome[ICD10: G89.4] Diagnosis: Hypothyroidism, unspecified[ICD10: E03.9] Diagnosis: Other fatigue[ICD10: R53.83] Diagnosis: Other obesity due to excess calories[ICD10: E66.09] Diagnosis: Major depressive disorder, recurrent, moderate[ICD10: F33.1] Leydi Jacobo MD, [facility] CPT-4: 13452 09/27/2018 ([id number]) 03844 EST. P ATIENT, LEVEL III Diagnosis: Chronic pain syndrome[ICD10: G89.4] Leydi Jacobo MD, [facility] CPT-4: 71799 09/03/2018 ([id number]) 21362 EST. P ATIENT, LEVEL IV Diagnosis: Hypothyroidism, unspecified[ICD10: E03.9] Diagnosis: Major depressive disorder, recurrent, moderate[ICD10: F33.1] Diagnosis: Chronic pain syndrome[ICD10: G89.4] Diagnosis: Other male erectile dysfunction[ICD10: N52.8] Diagnosis: Other fatigue[ICD10: R53.83] Diagnosis: Encounter for screening for malignant neoplasm of prostate[ICD10: Z12.5] Leydi Jacobo MD, [facility] CPT-4: 64504 07/05/2018 ([id number]) 59574 EST. P ATIENT, LEVEL IV Diagnosis: Chronic pain syndrome[ICD10: G89.4] Diagnosis: Hypothyroidism, unspecified[ICD10: E03.9] Diagnosis: Major depressive disorder, recurrent, moderate[ICD10: F33.1] Leydi Jacobo MD, [facility] CPT-4: 93491 05/04/2018 18728 EST. PATIENT, LEVEL IV Diagnosis: Melena[ICD10: K92.1] Diagnosis: Other malaise[ICD10: R53.81] Diagnosis: Other fatigue[ICD10: R53.83] Diagnosis: Pain in unspecified joint[ICD10: M25.50] Diagnosis: Diarrhea, unspecified[ICD10: R19.7] Denae Jacobo MD, [facility] CPT-4: 59547 03/28/2018 ([id number]) 13323 EST. P ATIENT, LEVEL IV Diagnosis: Chronic pain syndrome[ICD10: G89.4] Diagnosis: Hypothyroidism, unspecified[ICD10: E03.9] Diagnosis: Other obesity due to excess calories[ICD10: E66.09] Diagnosis: Major depressive disorder, recurrent, moderate[ICD10: F33.1] Diagnosis: Obstructive sleep apnea (adult) (pediatric)[ICD10: G47.33] Leydi Jacobo MD, [facility] CPT-4: 62099 02/27/2018 09074 EST. PATIENT, LEVEL IV Diagnosis: Other specified hypothyroidism[ICD10: E03.8] Diagnosis: Chronic pain syndrome[ICD10: G89.4] Diagnosis: Major depressive disorder, recurrent, moderate[ICD10: F33.1] Denae Jacobo MD, [facility] CPT-4: 16287 12/01/2017 ([id number]) 13881 EST. P ATIENT, LEVEL IV Diagnosis: Chronic pain syndrome[ICD10: G89.4] Diagnosis: Alcohol dependence, uncomplicated[ICD10: F10.20] Diagnosis: Major depressive disorder, recurrent, moderate[ICD10: F33.1] Leydi Jacobo MD, [facility] CPT-4: 99382 09/29/2017 ([id number]) 06550 EST. P ATIENT, LEVEL IV Diagnosis: Chronic pain syndrome[ICD10: G89.4] Diagnosis: Alcohol dependence, uncomplicated[ICD10: F10.20] Diagnosis: Major depressive disorder, recurrent, moderate[ICD10: F33.1] Leydi Jacobo MD, [facility] CPT-4: 10176 08/11/2017 ([id number]) 55192 EST. P ATIENT, LEVEL III Diagnosis: Chronic pain syndrome[ICD10: G89.4] Diagnosis: Major depressive disorder, recurrent, moderate[ICD10: F33.1] Leydi Jacobo MD, [facility] CPT-4: 10431 06/09/2017 ([id number]) 84684 EST. P ATIENT, LEVEL III Diagnosis: Chronic pain syndrome[ICD10: G89.4] Diagnosis: Pain in left knee[ICD10: M25.562] Leydi Jacobo MD, [facility] CPT- 4: 28019 04/07/2017 01921 EST. PATIENT, LEVEL II Diagnosis: Superficial foreign body of left upper arm, initial encounter[ICD10: S40.852A] Diagnosis: Cellulitis of left upper limb[ICD10: L03.114] Leydi Jacobo MD, [facility] CPT-4: 13747 11/17/2016 [id number] EST. PATIENT, LEVEL II Diagnosis: Cellulitis of left upper limb[ICD10: L03.114] Leydi Jacobo MD, [facility] CPT-4: 62489 11/10/2016 ([id number]) 40852 EST. P ATIENT, LEVEL III Diagnosis: Chronic pain syndrome[ICD10: G89.4] Diagnosis: Major depressive disorder, recurrent, moderate[ICD10: F33.1] Leydi Jacobo MD, [facility] CPT-4: 14014 10/14/2016 05003 EST. PATIENT, LEVEL IV Diagnosis: Psychophysiologic insomnia[ICD10: F51.04] Diagnosis: Major depressive disorder, recurrent, moderate[ICD10: F33.1] Diagnosis: Alcohol dependence, uncomplicated[ICD10: F10.20] Diagnosis: Chronic pain syndrome[ICD10: G89.4] Leydi Jacobo MD, [facility] CPT-4: 92327 09/16/2016 ([id number]) 17231 EST. P ATIENT, LEVEL III Diagnosis: Pain in left shoulder[ICD10: M25.512] Diagnosis: Major depressive disorder, recurrent, moderate[ICD10: F33.1] Diagnosis: Psychophysiologic insomnia[ICD10: F51.04] Leydi Jacobo MD, [facility] CPT-4: 33686 08/19/2016 ([id number]) 26477 EST. P ATIENT, LEVEL III Diagnosis: Gastro-esophageal reflux disease without esophagitis[ICD10: K21.9] Diagnosis: Hypothyroidism, unspecified[ICD10: E03.9] Leydi Jacobo MD, [facility] CPT-4: 88251 06/17/2016 ([id number]) 74924 EST. P ATIENT, LEVEL IV Diagnosis: Gastro-esophageal reflux disease without esophagitis[ICD10: K21.9] Diagnosis: Hypothyroidism, unspecified[ICD10: E03.9] Diagnosis: Major depressive disorder, recurrent, moderate[ICD10: F33.1] Leydi Jacobo MD, [facility] CPT-4: 76959 05/12/2016 ([id number]) 34558 EST. P ATIENT, LEVEL III Diagnosis: Cervicalgia[ICD10: M54.2] Diagnosis: Hypothyroidism, unspecified[ICD10: E03.9] Diagnosis: Other male erectile dysfunction[ICD10: N52.8] Leydi Jacobo MD, [facility] CPT-4: 44313 02/16/2016 ([id number]) 45352 EST. P ATIENT, LEVEL III Diagnosis: Lumbago with sciatica, unspecified side[ICD10: M54.40] Diagnosis: Other male erectile dysfunction[ICD10: N52.8] Leydi Jacobo MD, [facility] CPT-4: 16906 11/17/2015 ([id number]) 09286 EST. P ATIENT, LEVEL III Diagnosis: Lumbago with sciatica, unspecified side[ICD10: M54.40] Diagnosis: Hypothyroidism, unspecified[ICD10: E03.9] Diagnosis: Other male erectile dysfunction[ICD10: N52.8] [facility] CPT-4: 84446 08/28/2015 ([id number]) 68229 EST. P ATIENT, LEVEL III Diagnosis: Back pain, chronic[ICD9: 724.5] Diagnosis: Depression[ICD9: 311] Diagnosis: Hypothyroid[ICD9: 244.9] Diagnosis: Bilateral calf pain[ICD9: 729.5] [facility] CPT-4: 66422 05/28/2015 ([id number]) OFFICE VISI T NEW - LEVEL 4 Diagnosis: Back pain, chronic[ICD9: 724.5] Diagnosis: Depression[ICD9: 311] Diagnosis: Hypothyroid[ICD9: 244.9] Julieta Jacobo MD, [facility] CPT-4: 85353 04/23/2015 Plan of Care Planned Activity Notes [...] termination from this medical practice. Hypothyroidism- seeing button reclaimer 05/14/2019 Appointment: Leydi Hightower WPtel: [facility] [phone] (30 min) Complex 05/14/2019 Patient Education: Patient Medication Summary Completed 05/14/2019 Visit Plan: Hypothyroidism -refer kaitlynn Yan at [facility] Chronic Pain Syndrome - pt has chronic pain - has been maintained on current medications, has not sought out other medications, only uses PRN pain medications as directed, and understands the consequences of over-medication. 03/12/2019 Appointment: Leydi Hightower WPtel: [phone] [phone] (30 min) Complex 03/12/2019 Patient Education: Patient Medication Summary Completed 03/12/2019 Appointment: Leydi Hightower WPtel: [phone] (30 min) Complex 03/05/2019 Visit Plan: Chronic [...] thyroid ultrasound 01/07/2019 Appointment: Leydi Hightower WPtel: [phone] (30 min) Complex 01/07/2019 Patient Education: [...] the office 12/27/2018 Appointment: Leydi Hightower WPtel: [phone] (15 min) Moderate 12/27/2018 Patient Education: [...] medications. 11/05/2018 Appointment: Leydi Hightower WPtel: [phone] [phone] (30 min) Complex 11/05/2018 Patient Education: [...] control. 09/27/2018 Appointment: Leydi Hightower WPtel: [phone] [phone] (15 min) Moderate 09/27/2018 Patient Education: [...] paperwork for health care surrogate. 09/17/2018 Appointment: Campbell Leydi WPtel: [phone] [phone] [facility] - Annual Wellness Visit 09/17/2018 Patient Education: Patient Medication Summary Completed 09/17/2018 Visit Plan: Chronic Pain Syndrome - pt has chronic pain - has been maintained on current medications, has not sought out other medications, only uses PRN pain medications as directed, and understands the consequences of over-medication. 09/03/2018 [phone] ([facility] min) Complex 09/03/2018 Patient Education: Patient [...] exposure. No change in current medications. Fatigue-weight [id number] labs including testosterone level 07/05/2018 Visit Plan: [...] exposure. No change in current medications. Fatigue-weight [id number] labs including testosterone level 07/05/2018 Appointment: Leydi Hightower WPtel: [phone] [phone] (15 min) Moderate 07/05/2018 Patient Education: Patient [...] BID 05/04/2018 Appointment: [phone] (15 min) Moderate 05/04/2018 Patient Education: Patient [...] pain. 03/28/2018 Appointment: Den[facility] Mart[facility]nez [phone] ([facility] min) Complex 03/28/2018 Appointment: Nurse Visit [...] time. 02/27/2018 Appointment: [phone] (15 min) Moderate 02/27/2018 Patient Education: Patient [...] control. 12/01/2017 Appointment: Denae Martínez WPtel: [phone] [phone] (30 min) Complex 12/01/2017 Patient Education: Patient [...] treatment 09/29/2017 Appointment: Leydi Hightower WPtel: [phone] [phone] (30 min) Complex 09/29/2017 Patient Education: [...] ider 08/11/2017 Appointment: Leydi Hightower WPtel: [phone] [facility] [phone] ([facility] min) Complex 08/11/2017 Patient Education: Patient [...] current medications. 06/09/2017 Appointment: Leydi Hightower WPtel: [facility] [place] [phone] (30 min) Complex 06/09/2017 Patient Education: Patient [...] completely resolve 11/17/2016 Appointment: Leydi Hightower WPtel: [address] [place], [place] [phone] (30 min) Complex 11/17/2016 Patient Education: Patient [...] in pain. 11/10/2016 Appointment: Leydi Hightower WPtel: [address] [place] [address] (30 min) Complex 11/10/2016 Patient Education: Patient [...] of plan. 10/14/2016 Appointment: Leydi Hightower WPtel: [facility] [place] [phone] (30 min) Complex 10/14/2016 Patient Education: Patient [...] will try 09/16/2016 Appointment: Leydi Hightower WPtel: [address] [place] [phone] (30 min) Complex 09/16/2016 Patient Education: Patient Medication Summary Completed 09/16/2016 Visit Plan: Left shoulder and elbow pain-xray shoulder and elbow Hmpzbzqwig-vasyblhe-rgkbsmllurlh-d/c trazodone-start remeron at bedtime Pt has been [...] this patient. 08/19/2016 Appointment: Leydi Hightower WPtel: [phone] ([facility] min) Complex 08/19/2016 Patient Education: Patient [...] Completed 06/17/2016 Appointment: Leydi Hightower WPtel[facility] [phone] [phone] (30 min) Complex 06/09/2016 Visit Plan: Esophageal [...] of control. 05/12/2016 Appointment: Leydi Hightower WPtel[facility] [phone] [phone] (30 min) Complex 05/12/2016 Patient Education: Patient [...] in office. 05/28/2015 Appointment: Leydi Hightower WPtel: [phone] (30 min) Complex 05/28/2015 Patient Education: Patient [...] Care Plan: COMPLETE CBC AUTOMATED LOINC : 94937-6 Ordered 04/23/2015 Instructions Comment DECREASE LEVOTHYROXI NE [...] termination from this medical practice. Hypothyroidism- seeing button reclaimer . Chronic Pain Syndr ome - pt [...] exposure. No change in current medications. Fatigue-weight bsco-ZD-cksqk labs including testosterone level . Chronic Pain [...] exposure. No change in current medications. Fatigue-weight cvui-XR-nzkwy labs including testosterone level Get Immodium over th counter for loose stools Will check hgb [...] and elbow pain-xray shou lder and elbow Snbkhntgem-uakqkxlw-nbuenfismbuk-d/c trazodone-start remeron at bedtime Pt has been [...] Hypothyroidism -re [place] to Noemi Yan at [facility] Chronic Pain Syndrome - pt has chronic [...] try . 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 Chronic Pain Syndrome [...]
--- OUTSIDE RECORDS SUMMARY | 2020-03-17 14:39 | XMS REPORT | CCD ---
Author Author Thai Castillo Organization Sara Jacobo MD, [facility] Address [address] [place] [address] Phone Care Team Providers Care Wastewater Supervisor Name Role Phone PP Unavailable CCM Unavailable Summary Purpose Interface Exchange Insurance Providers Payer name Policy type / Coverage type Covered libertarian ID Effective Begin Date Effective End Date WPS Medicare Part B Medicare Part B [id number] Unknown [facility] icare Part B [id number] Un known Family history Father Diagnosis Age At Onset Colon cancer Unknown Social History Social History Element Codes Description Effective Dates Employment Unknown [employer] unemployed Before disability 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 [employer] 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/2018 On Disability Unknown Yes 09/27/2018 Marital status Unknown D ivorced 04/23/[address]: 430256811 Never smoker 04/23/[address]: 157032 Currently drinks alcohol occasionally drinks 04/23/2015 Allergies, [...] Date Stop Date Sta tus Fill Instructions baclofen 10 mg tablet RxNorm: 508533 TAKE ONE TABLET BY MOUTH THREE TIMES A D AY NEEDED 05/28/2019 09/24/2019 Active tizanidine 4 mg tablet RxNorm: 956203 TAKE ONE TABLET BY MOUTH THREE TIMES A D AY NEEDED 05/28/2019 09/24/2019 Active diclofenac sodium 75 mg tablet,delayed release RxNorm: 815992 TAKE ONE TABLET BY MO UTH TWICE A DAY 05/21/2019 10/17/2019 Active oxymorphone 5 mg tablet RxNorm: 372494 1 Tablet(s) PO Q6 PRN 05/14/2019 07/12/2019 Active morphine 30 mg table t, crush resistant, extended release RxNorm: 3562220 1 Tablet(s) PO BID 05/14/2019 06/12/2019 Active doxycycline hyclate 100 mg tablet RxNorm: 2952365 1 Tablet(s) PO BID 05/14/2019 05/23/2019 Inactive morphine 30 mg table t, crush resistant, extended release RxNorm: 2966922 1 Tablet(s) PO BID 05/07/2019 05/13/2019 Inactive levothyroxine 200 mc g tablet RxNorm: 301889 1 Tablet(s) PO daily TAKE ONE TABLET BY MOUTH DAILY 03/12/2019 09/07/2019 Active Updated script trazodone 50 mg tablet RxNorm: 026411 1.5 Tablet(s) PO QHS TAKE ONE TABLET BY MOUTH EVERY NIGHT AT BEDTIME AND ONE-HALF TABLET BY MOUTH NEEDED 03/12/2019 06/09/2019 Active morphine 30 mg table t, crush resistant, extended release RxNorm: 5982881 1 Tablet(s) PO BID 03/12/2019 04/10/2019 Inactive oxymorphone 5 mg tablet RxNorm: 657827 1 Tablet(s) PO Q6 PRN 03/12/2019 05/10/2019 Inactive doxycycline hyclate 100 mg tablet RxNorm: 7743017 1 Tablet(s) PO BID 03/12/2019 03/21/2019 Inactive morphine 30 mg table t, crush resistant, extended release RxNorm: 3299999 1 Tablet(s) PO BID 03/06/2019 03/11/2019 Inactive tizanidine 4 mg tablet RxNorm: 394362 TAKE ONE TABLET BY MOUTH THREE TIMES A D AY NEEDED 02/26/2019 05/26/2019 Inactive diclofenac sodium 75 mg tablet,delayed release RxNorm: 922232 TAKE ONE TABLET BY MO UT TWICE A DAY 02/18/2019 05/18/2019 Inactive Protonix 40 mg table t,delayed release RxNorm: 458009 TAKE ONE TABLET BY [facility] DAILY 02/06/2019 09/03/2019 Ac tive trazodone 50 mg tablet RxNorm: 330797 TAKE ONE TABLET BY MOUTH EVERY NIGHT AT BEDTIME AND ONE-HALF TABLET BY MOUTH NEEDED 01/14/2019 03/11/2019 Inactive oxymorphone 5 mg tablet RxNorm: 304633 1 Tablet(s) PO Q6 PRN 01/07/2019 03/07/2019 Inactive morphine 30 mg table t, crush resistant, extended release RxNorm: 6253704 1 Tablet(s) PO BID 01/07/2019 03/05/2019 Inactive doxycycline hyclate 100 mg tablet RxNorm: 1922542 1 Tablet(s) PO BID 01/01/2019 01/10/2019 Inactive cyanocobalamin (vit B-12) 1,000 mcg/mL injection solution RxNorm: 776221 1 Milliliter(s) Inj 12/27/2018 12/27/2018 Inactive baclofen 10 mg tablet RxNorm: 536312 TAKE ONE TABLET BY MOUTH THREE TIMES A D AY NEEDED 11/29/2018 03/28/2019 Inactive Request already responded t o by other means (e.g. phone or fax) baclofen 10 mg tablet RxNorm: 206410 Tablet(s) TAKE ONE TABLET BY MOUTH THREE TIMES A DAY NEEDED 11/28/2018 11/28/2018 Inactive doxycycline hyclate 100 mg tablet RxNorm: 3691506 1 Tablet(s) PO BID 11/14/2018 11/23/2018 Inactive trazodone 50 mg tablet RxNorm: 963540 TAKE ONE TABLET BY MOUTH EVERY NIGHT AT BEDTIME AND ONE-HALF TABLET BY MOUTH NEEDED 11/12/2018 12/21/2018 Inactive tizanidine 4 mg tablet RxNorm: 256144 TAKE ONE TABLET BY MOUTH THREE TIMES A D AY NEEDED 10/22/2018 02/18/2019 Inactive diclofenac sodium 75 mg tablet,delayed release RxNorm: 259370 TAKE ONE TABLET BY [facility] TWICE A DAY 10/15/2018 02/11/2019 Inactive Lasix 20 mg tablet RxNorm: 608079 1 Tablet(s) PO daily as needed 10/10/2018 11/08/2018 In active potassium chloride E R 10 mEq tablet,extended release RxNorm: 746392 1 Tablet(s) PO daily as needed to take with lasix for inceased edema 10/10/2018 11/08/2018 Inactive potassium chloride E R 10 mEq tablet,extended release RxNorm: 858920 1 Tablet(s) PO daily as needed to take with lasix for inceased edema 10/10/2018 10/09/2018 Inactive Lasix 20 mg tablet RxNorm: 903314 1 Tablet(s) PO daily as needed 10/10/2018 10/09/2018 In active doxycycline hyclate 100 mg tablet RxNorm: 7269964 1 Tablet(s) PO BID 09/27/2018 10/10/2018 Inactive Remeron 15 mg tablet RxNorm: 693718 1.5 Tablet(s) PO QPM TAKE ONE TABLET BY MOUTH EVERY NIGHT AT BEDTIME 09/18/2018 12/16/2018 Inactive baclofen 10 mg tablet RxNorm: 243549 TAKE ONE TABLET BY MOUTH THREE TIMES A D AY NEEDED 09/12/2018 11/10/2018 Inactive Remeron 15 mg tablet RxNorm: 055424 1.5 Tablet(s) PO QPM TAKE ONE TABLET BY MOUTH EVERY NIGHT AT BEDTIME 09/03/2018 09/17/2018 Inactive oxymorphone 5 mg tablet RxNorm: 491906 1 Tablet(s) PO Q6 PRN 09/03/2018 11/01/2018 Inactive morphine 30 mg table t, crush resistant, extended release RxNorm: 7122612 1 Tablet(s) PO BID 09/03/2018 11/01/2018 Inactive trazodone 50 mg tablet RxNorm: 363395 TAKE ONE TABLET BY MOUTH EVERY NIGHT AT BEDTIME AND ONE-HALF TABLET BY MOUTH NEEDED 09/03/2018 10/12/2018 Inactive tizanidine 4 mg tablet RxNorm: 371472 TAKE ONE TABLET BY MOUTH THREE TIMES A D AY NEEDED 08/20/2018 10/18/2018 Inactive Protonix 40 mg table t,delayed release RxNorm: 642864 TAKE ONE TABLET BY MO [facility] DAILY 08/10/2018 02/05/2019 In active Carafate 1 gram tablet RxNorm: 285879 TAKE ONE TABLET BY MOUTH BEFORE MEALS AN D AT BEDTIME NEEDED FOR HEARTBURN 07/31/2018 12/27/2018 Inactive Protonix 40 mg table t,delayed release RxNorm: 428231 1 Tablet(s) BID 07/24/2018 07/23/2018 Inactive Protonix 40 mg table t,delayed release RxNorm: 707599 1 Tablet(s) daily 07/24/2018 08/09/2018 In active liothyronine 5 mcg t ablet RxNorm: 395072 TAKE ONE TABLET BY MO [facility] DAILY 07/19/2018 01/09/2019 In active baclofen 10 mg tablet RxNorm: 075334 TAKE ONE TABLET BY MOUTH THREE TIMES A D AY NEEDED 07/12/2018 09/09/2018 Inactive levothyroxine 175 mc g tablet RxNorm: 873663 1 Tablet(s) PO daily 07/11/2018 03/11/2019 Inactive Vitamin D2 50,000 un it capsule RxNorm: 1684473 1 Capsule(s) PO QW 07/11/2018 10/02/2018 Inactive trazodone 50 mg tablet RxNorm: 107542 TAKE ONE TABLET BY MOUTH EVERY NIGHT AT BEDTIME AND ONE-HALF TABLET BY MOUTH NEEDED 07/11/2018 08/19/2018 Inactive Vitamin D2 50,000 un it capsule RxNorm: 1808011 1 Capsule(s) PO QW 07/11/2018 07/10/2018 Inactive morphine 30 mg table t, crush resistant, extended release RxNorm: 1425735 1 Tablet(s) PO BID 07/05/2018 09/02/2018 Inactive oxymorphone 5 mg tablet RxNorm: 756247 1 Tablet(s) PO Q6 PRN 07/05/2018 09/02/2018 Inactive bupropion HCl XL 300 mg 24 hr tablet, extended release RxNorm: 397520 TAKE ONE TABLET BY MOUTH DAILY 06/27/2018 12/23/2018 Inactive Remeron 15 mg tablet RxNorm: 884267 TAKE ONE TABLET BY MOUTH EVERY NIGHT AT BEDTIME 06/27/2018 09/02/2018 Inactive tizanidine 4 mg tablet RxNorm: 811603 TAKE ONE TABLET BY MOUTH THREE TIMES A D AY NEEDED 06/20/2018 08/18/2018 Inactive doxycycline hyclate 100 mg tablet RxNorm: 3946263 1 Tablet(s) PO BID 06/18/2018 07/01/2018 Inactive Protonix 40 mg table t,delayed release RxNorm: 602027 TAKE ONE TABLET BY [facility] DAILY 06/11/2018 07/23/2018 In active doxycycline hyclate 100 mg tablet RxNorm: 0276730 1 Tablet(s) PO BID 05/22/2018 06/04/2018 Inactive baclofen 10 mg tablet RxNorm: 562282 TAKE ONE TABLET BY MOUTH THREE TIMES A D AY NEEDED 05/14/2018 07/11/2018 Inactive diclofenac sodium 75 mg tablet,delayed release RxNorm: 427242 TAKE ONE TABLET BY [facility] TWICE A DAY 05/07/2018 10/03/2018 Inactive oxymorphone 5 mg tablet RxNorm: 396894 1 Tablet(s) PO Q6 PRN 05/04/2018 07/02/2018 Inactive morphine 30 mg table t, crush resistant, extended release RxNorm: 0196925 1 Tablet(s) PO BID 05/04/2018 07/02/2018 Inactive doxycycline hyclate 100 mg tablet RxNorm: 546109 1 Tablet(s) PO BID 04/24/2018 04/23/2018 Inactive doxycycline hyclate 100 mg tablet RxNorm: 2200777 1 Tablet(s) PO BID 04/24/2018 05/03/2018 Inactive baclofen 10 mg tablet RxNorm: 442541 TAKE ONE TABLET BY MOUTH THREE TIMES A D AY NEEDED 04/13/2018 05/12/2018 Inactive trazodone 50 mg tablet RxNorm: 289386 TAKE ONE TABLET BY MOUTH EVERY NIGHT AT BEDTIME AND ONE-HALF TABLET BY MOUTH NEEDED 04/09/2018 06/07/2018 Inactive Questran 4 gram powd er for susp in a packet RxNorm: 436758 1 packet PO BID 04/06/2018 06/04/2018 In active Questran 4 gram powd er for susp in a packet RxNorm: 529568 1 packet PO BID 04/06/2018 04/05/2018 In active Carafate 1 gram tablet RxNorm: 377340 1 Tablet(s) PO AC & HS as needed for hea rtburn 03/28/2018 04/26/2018 Inactive baclofen 10 mg tablet RxNorm: 753120 TAKE ONE TABLET BY MOUTH THREE TIMES A D AY NEEDED 03/16/2018 04/12/2018 Inactive Protonix 40 mg table t,delayed release RxNorm: 166769 TAKE ONE TABLET BY MO UTH DAILY 03/16/2018 06/10/2018 In active oxymorphone 5 mg tablet RxNorm: 977046 1 Tablet(s) PO Q6 PRN 02/27/2018 04/27/2018 Inactive morphine 30 mg table t, crush resistant, extended release RxNorm: 6846501 1 Tablet(s) PO BID 02/27/2018 04/27/2018 Inactive Belviq XR 20 mg tabl et,extended release RxNorm: 7128023 1 Tablet(s) PO daily 02/27/2018 01/06/2019 In active levothyroxine 100 mc g tablet RxNorm: 698283 1 Tablet(s) PO daily 02/27/2018 07/10/2018 Inactive take with 88mcg to = 188mcg daily levothyroxine 88 mcg tablet RxNorm: 638842 1 Tablet(s) PO daily 02/27/2018 07/10/2018 Inactive take with 100mcg to = 188mcg daily morphine 30 mg table t, crush resistant, extended release RxNorm: 5811053 1 Tablet(s) PO BID 02/14/2018 02/26/2018 Inactive levothyroxine 200 mc g tablet RxNorm: 107379 Tablet(s) TAKE ONE TA BLET BY MOUTH DAILY 01/18/2018 02/26/2018 Inactive Updated script baclofen 10 mg tablet RxNorm: 621522 Tablet(s) TAKE ONE TABLET BY MOUTH THREE TIMES A DAY NEEDED 01/15/2018 02/13/2018 Inactive morphine 30 mg table t, crush resistant, extended release RxNorm: 5416099 1 Tablet(s) PO BID 01/15/2018 02/13/2018 Inactive tizanidine 4 mg tablet RxNorm: 426884 TAKE ONE TABLET BY MOUTH THREE TIMES A D AY NEEDED 01/02/2018 04/01/2018 Inactive Request already responded t o by other means (e.g. phone or fax) bupropion HCl XL 300 mg 24 hr tablet, extended release RxNorm: 511674 TAKE ONE TABLET BY MOUTH DAILY 12/29/2017 06/26/2018 Inactive Tamiflu 75 mg capsule RxNorm: 680064 1 Capsule(s) PO BID 12/27/2017 12/31/2017 Inactive Tamiflu 75 mg capsule RxNorm: 598653 1 Capsule(s) PO BID 12/27/2017 12/26/2017 Inactive tizanidine 4 mg tablet RxNorm: 471344 1 Tablet(s) PO TID as needed 12/25/2017 01/01/2018 Inactive levothyroxine 175 mc g tablet RxNorm: 119030 1 Tablet(s) PO daily 12/14/2017 12/13/2017 Inactive levothyroxine 175 mc g tablet RxNorm: 866357 1 Tablet(s) PO daily 12/14/2017 01/17/2018 Inactive baclofen 10 mg tablet RxNorm: 273439 Tablet(s) TAKE ONE TABLET BY MOUTH THREE TIMES A DAY NEEDED 12/13/2017 01/11/2018 Inactive baclofen 10 mg tablet RxNorm: 718101 TAKE ONE TABLET BY MOUTH THREE TIMES A D AY NEEDED 12/13/2017 12/12/2017 Inactive morphine 30 mg table t, crush resistant, extended release RxNorm: 8109207 1 Tablet(s) PO BID 12/12/2017 01/14/2018 Inactive clonazepam 1 mg tablet RxNorm: 853342 1/2 Tablet(s) PO daily 12/01/2017 08/27/2018 Inactive trazodone 50 mg tablet RxNorm: 686285 1/2 to 1 Tablet(s) QHS as needed 12/01/2017 03/30/2018 In active Opana ER 15 mg table t, crush resistant, extended release RxNorm: 387238 1 Tablet(s) PO Q12H 12/01/2017 02/13/2018 Inactive oxymorphone 5 mg tablet RxNorm: 825501 1 Tablet(s) PO Q6 PRN 12/01/2017 02/26/2018 Inactive Remeron 15 mg tablet RxNorm: 481284 Tablet(s) TAKE ONE TABLET BY MOUTH EVERY NIGHT AT BEDTIME 12/01/2017 02/28/2018 Inactive trazodone 50 mg tablet RxNorm: 333132 1/2 Tablet(s) as needed 1 Tablet(s) PO Q HS 12/01/2017 11/30/2017 In active clonazepam 1 mg tablet RxNorm: 516547 1/2 Tablet(s) PO daily 11/30/2017 11/30/2017 Inactive Remeron 15 mg tablet RxNorm: 706963 TAKE ONE TABLET BY MOUTH EVERY NIGHT AT BEDTIME 11/29/2017 11/30/2017 Inactive levothyroxine 200 mc g tablet RxNorm: 644757 TAKE ONE TABLET BY MO UTH DAILY 11/15/2017 12/13/2017 In active baclofen 10 mg tablet RxNorm: 449192 TAKE ONE TABLET BY MOUTH THREE TIMES A D AY NEEDED 11/07/2017 12/06/2017 Inactive diclofenac sodium 75 mg tablet,delayed release RxNorm: 248817 1 Tablet(s) PO BID 11/07/2017 05/05/2018 In active liothyronine 5 mcg t ablet RxNorm: 493848 TAKE ONE TABLET BY MO UT DAILY 10/27/2017 07/18/2018 In active tizanidine 4 mg tablet RxNorm: 832766 1 Tablet(s) PO TID as needed 10/18/2017 12/16/2017 Inactive oxymorphone 5 mg tablet RxNorm: 458166 1 Tablet(s) PO Q6 PRN 09/29/2017 11/27/2017 Inactive morphine 30 mg table t, crush resistant, extended release RxNorm: 4834978 1 Tablet(s) PO BID 09/29/2017 11/28/2017 Inactive baclofen 10 mg tablet RxNorm: 691435 1 Tablet(s) PO TID as needed 09/11/2017 10/10/2017 Inactive baclofen 10 mg tablet RxNorm: 252020 1 Tablet(s) PO TID as needed 08/11/2017 09/09/2017 Inactive Opana ER 15 mg table t, crush resistant, extended release RxNorm: 284632 1 Tablet(s) PO Q12H 08/11/2017 09/28/2017 Inactive Remeron 15 mg tablet RxNorm: 995759 TAKE ONE TABLET BY MOUTH EVERY NIGHT AT BEDTIME 08/02/2017 10/30/2017 Inactive oxymorphone 5 mg tablet RxNorm: 237372 1 Tablet(s) PO Q6 PRN 08/02/2017 09/28/2017 Inactive Opana ER 5 mg tablet , crush resistant, extended release RxNorm: 761356 1 Tablet(s) PO Q6 PRN 08/01/2017 08/10/2017 Inactive Protonix 40 mg table t,delayed release RxNorm: 765059 TAKE ONE TABLET BY [facility] DAILY 06/26/2017 06/25/2017 In active Protonix 40 mg table t,delayed release RxNorm: 699713 TAKE ONE TABLET BY [facility] DAILY 06/26/2017 02/05/2019 In active bupropion HCl XL 300 mg 24 hr tablet, extended release RxNorm: 961517 TAKE ONE TABLET BY MOUTH DAILY 06/13/2017 12/09/2017 Inactive tizanidine 4 mg tablet RxNorm: 330731 1 Tablet(s) PO TID as needed 06/13/2017 06/12/2017 Inactive tizanidine 4 mg tablet RxNorm: 672090 1 Tablet(s) PO TID as needed 06/13/2017 09/10/2017 Inactive baclofen 10 mg tablet RxNorm: 274353 1 Tablet(s) PO TID as needed 06/13/2017 07/12/2017 Inactive Opana ER 15 mg table t, crush resistant, extended release RxNorm: 079933 1 Tablet(s) PO Q12H 06/09/2017 08/07/2017 Inactive Opana ER 5 mg tablet , crush resistant, extended release RxNorm: 280633 1 Tablet(s) PO Q6 PRN 06/09/2017 07/31/2017 Inactive diclofenac sodium 75 mg tablet,delayed release RxNorm: 588205 1 Tablet(s) PO BID 06/09/2017 09/06/2017 In active clonazepam 1 mg tablet RxNorm: 946338 1/2 Tablet(s) PO daily 05/24/2017 11/18/2017 Inactive bupropion HCl XL 300 mg 24 hr tablet, extended release RxNorm: 845985 TAKE ONE TABLET BY MOUTH DAILY 03/16/2017 06/12/2017 Inactive clonazepam 1 mg tablet RxNorm: 062228 1/2 Tablet(s) PO daily 02/22/2017 05/18/2017 Inactive Remeron 15 mg tablet RxNorm: 921927 TAKE ONE TABLET BY MOUTH EVERY NIGHT AT BEDTIME 02/06/2017 2017 Inactive Protonix 40 mg table t,delayed release RxNorm: 058263 TAKE ONE TABLET BY MO UTH DAILY 01/26/2017 06/24/2017 In active mupirocin 2 % topica l ointment RxNorm: 045167 1 Application TOP BID 01/12/2017 01/18/2017 Inactive Bactrim DS 800 mg-16 0 mg tablet RxNorm: 233863 1 Tablet(s) PO BID 11/17/2016 11/23/2016 Inactive mupirocin 2 % topica l ointment RxNorm: 009555 1 Application TOP BID 11/10/2016 11/16/2016 Inactive Bactrim DS 800 mg-16 0 mg tablet RxNorm: 743254 1 Tablet(s) PO BID 11/10/2016 11/16/2016 Inactive bupropion HCl XL 300 mg 24 hr tablet, extended release RxNorm: 105458 TAKE ONE TABLET BY MOUTH DAILY 11/07/2016 03/06/2017 Inactive liothyronine 5 mcg t ablet RxNorm: 565683 1 Tablet(s) PO daily 11/01/2016 10/26/2017 Inactive levothyroxine 200 mc g tablet RxNorm: 121515 1 Tablet(s) PO daily 10/04/2016 09/28/2017 Inactive clonazepam 1 mg tablet RxNorm: 866003 1/2 Tablet(s) PO daily 09/21/2016 03/18/2017 Inactive clonazepam 1 mg tablet RxNorm: 314241 1/2 Tablet(s) PO daily 09/16/2016 09/20/2016 Inactive Abilify 2 mg tablet RxNorm: 461699 1 Tablet(s) PO daily 09/16/2016 10/13/2016 Inactive trazodone 50 mg tablet RxNorm: 299315 1/2 Tablet(s) as needed 1 Tablet(s) PO Q HS 09/16/2016 01/13/2017 In active morphine 15 mg immed iate release tablet RxNorm: 184913 1 Tablet(s) PO Q6 PRN 09/16/2016 04/06/2017 In active baclofen 10 mg tablet RxNorm: 402891 1 Tablet(s) PO TID as needed 09/16/2016 06/12/2017 Inactive MS Contin 30 mg tabl et,extended release RxNorm: 326668 1 Tablet(s) PO Q12H 09/16/2016 04/06/2017 In active Remeron 15 mg tablet RxNorm: 393707 1 Tablet(s) PO QHS 08/19/2016 09/15/2016 Inactive levothyroxine 200 mc g tablet RxNorm: 278926 1 Tablet(s) PO daily 08/11/2016 10/03/2016 Inactive bupropion HCl XL 300 mg 24 hr tablet, extended release RxNorm: 217812 TAKE ONE TABLET BY MOUTH DAILY 08/11/2016 11/06/2016 Inactive Protonix 40 mg table t,delayed release RxNorm: 901307 1 Tablet(s) PO daily 06/17/2016 12/13/2016 In active bupropion HCl XL 300 mg 24 hr tablet, extended release RxNorm: 380709 1 Tablet(s) PO daily 05/12/2016 07/10/2016 Inactive bupropion HCl XL 300 mg 24 hr tablet, extended release RxNorm: 610877 1 Tablet(s) PO daily 05/12/2016 05/11/2016 Inactive Cialis 20 mg tablet RxNorm: 081025 1 Tablet(s) PO PRN 02/16/2016 No Stop Date Active not more than 1 tab in 24 hours morphine ER 10 mg ca psule,extended release pellets RxNorm: 475349 1 Tablet(s) PO Q6 as needed 02/16/2016 11/16/2016 Inactive clonazepam 1 mg tablet RxNorm: 651398 1/2 Tablet(s) PO BID 02/16/2016 09/15/2016 Inactive trazodone 50 mg tablet RxNorm: 339878 1/2 Tablet(s) as needed 1 Tablet(s) PO Q HS 02/16/2016 08/18/2016 In active trazodone 50 mg tablet RxNorm: 290124 1/2 Tablet(s) 1 Tablet(s) PO QHS 11/17/2015 02/15/2016 In active trazodone 50 mg tablet RxNorm: 340572 1 Tablet(s) PO QHS 10/19/2015 11/16/2015 Inactive levothyroxine 200 mc g tablet RxNorm: 232653 1 Tablet(s) PO daily 10/02/2015 08/10/2016 Inactive Wellbutrin XL 150 mg 24 hr tablet, extended release RxNorm: 334036 1 Tablet(s) PO daily 10/02/2015 05/11/2016 Inactive levothyroxine 200 mc g tablet RxNorm: 813626 1 Tablet(s) PO daily 09/30/2015 10/01/2015 Inactive Wellbutrin XL 150 mg 24 hr tablet, extended release RxNorm: 605068 1 Tablet(s) PO daily 09/30/2015 10/01/2015 Inactive trazodone 50 mg tablet RxNorm: 222593 1 Tablet(s) PO QHS 09/11/2015 10/10/2015 Inactive trazodone 50 mg tablet RxNorm: 968945 1 Tablet(s) PO QHS 09/11/2015 09/10/2015 Inactive Cymbalta 30 mg capsu le,delayed release RxNorm: 962057 1 Capsule(s) PO daily 09/07/2015 11/16/2015 In active Cymbalta 60 mg capsu le,delayed release RxNorm: 052925 1 Capsule(s) PO daily 08/31/2015 08/30/2015 In active Cymbalta 30 mg capsu le,delayed release RxNorm: 227118 1 Capsule(s) PO daily take with 60mg to make 90 mg daily 08/31/2015 09/06/2015 Inactive Cymbalta 30 mg capsu le,delayed release RxNorm: 222446 1 Capsule(s) PO daily take with 60mg to make 90 mg daily 08/31/2015 08/30/2015 Inactive Cymbalta 60 mg capsu le,delayed release RxNorm: 927870 1 Capsule(s) PO daily x 7 days and then increase to 90mg daily 08/31/2015 09/07/2015 Inactive levothyroxine 200 mc g tablet RxNorm: 076082 1 Tablet(s) PO daily 08/14/2015 09/29/2015 Inactive Wellbutrin XL 150 mg 24 hr tablet, extended release RxNorm: 745483 1 Tablet(s) PO daily 07/14/2015 09/29/2015 Inactive Cialis 20 mg tablet RxNorm: 976591 1 Tablet(s) PO PRN 07/02/2015 02/15/2016 Inactive not more than 1 tab in 24 hours liothyronine 5 mcg t ablet RxNorm: 441351 1 Tablet(s) PO daily 2015 05/29/2016 Inactive clonazepam 1 mg tablet RxNorm: 155975 1 Tablet(s) PO TID 2015 02/15/2016 Inactive minocycline 50 mg ta blet RxNorm: 632107 1 Tablet(s) PO daily 2015 05/11/2016 Inactive Wellbutrin XL 150 mg 24 hr tablet, extended release RxNorm: 067982 1 Tablet(s) PO daily 04/23/2015 07/13/2015 Inactive levothyroxine 200 mc g tablet RxNorm: 090303 1 Tablet(s) PO daily 04/23/2015 08/13/2015 Inactive Aleve oral RxNorm: 220822 oral No Start Date Active Tylenol 500 mg RxNorm: oral No Start Date Active morphine ER 15 mg ta blet,extended release RxNorm: 890394 oral No Start Date 11/16/2016 Inactive Trazadone 25 mg RxNorm: 2 PO daily No Start Date 09/11/2015 Inactive diclofenac oral RxNorm: 3355 oral No Start Date 05/04/2018 Inactive clonazepam 1 mg tablet RxNorm: 232301 1 Tablet(s) PO QHS No Start Date 06/04/2015 Inactive Wellbutrin XL 150 mg 24 hr tablet, extended release RxNorm: 306827 1 Tablet(s) PO daily No Start Date 04/22/2015 Inactive minocycline 50 mg ta blet RxNorm: 950058 1 Tablet(s) PO daily No Start Date 06/04/2015 Inactive methadone 5 mg tablet RxNorm: 041808 1 Tablet(s) PO Q8 No Start Date 02/15/2016 Inactive Protonix 40 mg table t,delayed release RxNorm: 714200 Tablet(s) PO daily No Start Date 06/16/2016 Inactive Opana ER 15 mg table t, crush resistant, extended release RxNorm: 404669 1 Tablet(s) PO Q12H No Start Date 06/08/2017 Inactive MS Contin 30 mg tabl et,extended release RxNorm: 344688 1 Tablet(s) PO Q12H No Start Date 02/15/2016 Inactive Opana ER 15 mg table t, crush resistant, extended release RxNorm: 411592 1 Tablet(s) PO BID No Start Date 09/15/2016 Inactive liothyronine 5 mcg t ablet RxNorm: 458230 1 Tablet(s) PO daily No Start Date 06/04/2015 Inactive Cialis 20 mg tablet RxNorm: 740128 1 Tablet(s) PO PRN No Start Date 07/01/2015 Inactive not more than 1 tab in 24 hours baclofen 10 mg tablet RxNorm: 300400 1 Tablet(s) PO TID as needed No Start Date 05/11/2016 Inactive morphine 15 mg immed iate release tablet RxNorm: 115231 1 Tablet(s) PO Q6 PRN as needed No Start Date 02/15/2016 Inactive levothyroxine 200 mc g tablet RxNorm: 097555 1 Tablet(s) PO daily No Start Date 04/22/2015 Inactive Opana ER 5 mg tablet , crush resistant, extended release RxNorm: 274875 1 Tablet(s) PO Q6 No Start Date 06/08/2017 Inactive Medication Administered Medication Codes Instruc tions Start Date Status cyanocobalamin (vit B-12) 1,000 mcg/mL injection solut ion RxNorm: 222472 1Milliliter 12/27/2018 No longer Active Immunizations No [...] 29.4 pg 01/07/2019 Cbc With Differential Ord2 Tillman% 10.9 % 01/07/2019 Cbc With Differential Ord2 [...] 1.77 K/ul 01/07/2019 Cbc With Differential Ord2 [place]man ABS# 0.5 K/ul 01/07/2019 Cbc With Differential Ord2 Eos ABS# 0.1 K/ul 01/07/2019 Cbc With Differential Ord2 Baso ABS# 0.0 K/ul 01/07/2019 Free T4 Wrj137 FREE T4 2.05 ng/dL 01/07/2019 Lipid Ord30 CHOL 189 mg/dL 01/07/2019 Lipid Ord30 HDL 58.0 mg/dl 01/07/2019 Lipid Ord30 TRIG 155 mg/dL 01/07/2019 Lipid Ord30 LDL 100 mg/dL 01/07/2019 Lipid Ord30 C/HDL 3.3 Ratio 01/07/2019 Comp Metabolic Gqu899 NA 137 mEq/L 01/07/2019 Comp Metabolic Mlt804 K 4.2 mEq/L 01/07/2019 Comp Metabolic Jrs506 CL 104 mEq/L 01/07/2019 Comp Metabolic Fee708 CO2 26.0 mEq/L 01/07/2019 Comp Metabolic Gqe014 AN ION GAP 11 01/07/2019 Comp Metabolic Eul696 GL UCOSE 64 mg/dL 01/07/2019 Comp Metabolic Ozi885 Cr eat 0.8 mg/dL 01/07/2019 Comp Metabolic Fpu072 eG FR 110 ml/min/1.73m2 12/28 Comp Metabolic Whx886 BUN 7 mg/dL 01/07/2019 Comp Metabolic Rme891 B/ C Ratio 9.0 Ratio 01/07/2019 Comp Metabolic Upo168 CA LCIUM 9.7 mg/dL 01/07/2019 Comp Metabolic Nam092 AL K PHOS 64 U/L 01/07/2019 Comp Metabolic Kyv668 T(SGOT) 32 U/L 01/07/2019 Comp Metabolic Lmn343 AL T(SGPT) 44 U/L 01/07/2019 Comp Metabolic Bcx733 BI LI T 0.3 mg/dL 01/07/2019 Comp Metabolic Pkf810 AL BUMIN 4.3 g/dL 01/07/2019 Comp Metabolic Apq173 TP RO 6.5 g/dL 01/07/2019 Comp Metabolic Ciq804 GL OB 2.2 g/dL 01/07/2019 Comp Metabolic Mwm953 A/ G Ratio 2.0 Ratio 01/07/2019 Comp Metabolic Ilb198 Os mo 270 mOsmo 01/07/2019 Free T4 Nkv148 FREE T4 1.54 ng/dL 11/05/2018 Vitamin D 25 Oh Mod9170 VITAMIN D, 25 HYDROXY 40.65 ng/mL 11/05/2018 Tsh Ord6 TSH (3rd IS) 0.02 uIU/mL 11/05/2018 Vitamin D 25 Oh Une6280 VITAMIN D, 25 HYDROXY 30.96 ng/mL 07/06/2018 Comp Metabolic Llg578 NA 141 mEq/L 07/06/2018 Comp Metabolic Unw670 K 4.2 mEq/L 07/06/2018 Comp Metabolic Mde491 CL 103 mEq/L 07/06/2018 Comp Metabolic Xqg012 CO2 29.0 mEq/L 07/06/2018 Comp Metabolic Csb313 AN ION GAP 13 07/06/2018 Comp Metabolic Ugg657 GL UCOSE 105 mg/dL 07/06/2018 Comp Metabolic Yat624 Cr eat 0.8 mg/dL 07/06/2018 Comp Metabolic Zin796 eG FR 101 ml/min/1.73m2 06/27 Comp Metabolic Krq471 BUN 7 mg/dL 07/06/2018 Comp Metabolic Cvq224 B/ C Ratio 8.3 Ratio 07/06/2018 Comp Metabolic Cbe860 CA LCIUM 9.9 mg/dL 07/06/2018 Comp Metabolic Yxe405 AL K PHOS 65 U/L 07/06/2018 Comp Metabolic Xni585 T(SGOT) 21 U/L 07/06/2018 Comp Metabolic Ahs904 AL T(SGPT) 31 U/L 07/06/2018 Comp Metabolic Bva357 BI LI T 0.3 mg/dL 07/06/2018 Comp Metabolic Flx832 AL BUMIN 4.3 g/dL 07/06/2018 Comp Metabolic Noi755 TP RO 6.4 g/dL 07/06/2018 Comp Metabolic Wxg165 GL OB 2.1 g/dL 07/06/2018 Comp Metabolic Bie128 A/ G Ratio 2.0 Ratio 07/06/2018 Comp Metabolic Ale478 Os mo 280 mOsmo 07/06/2018 Cbc With [...] 29.3 pg 07/06/2018 Cbc With Differential Ord2 Tillman% 10.5 % 07/06/2018 Cbc With Differential Ord2 [...] 1.89 K/ul 07/06/2018 Cbc With Differential Ord2 [place] ABS# 0.5 K/ul 07/06/2018 Cbc With Differential Ord2 Eos ABS# 0.3 K/ul 07/06/2018 Cbc With Differential Ord2 Baso ABS# 0.0 K/ul 07/06/2018 Total Psa Ord10 PSA 0.34 ng/mL 07/06/2018 Tsh Ord6 TSH (3rd IS) 0.02 uIU/mL 07/06/2018 Testosterone Veq055 Testo 400.6 ng/dL 07/06/2018 Free T4 Ors896 FREE T4 1.48 ng/dL 07/06/2018 [place] Spotted Fever Igg/Igm 12110 3 [place] SPOTTED FEVER IGM EIA . 04/04/2018 [place] Spotted Fever Igg/Igm 30609 3 RMSF, IGM 0.24 index 04/04/2018 [place] Spotted Fever Igg/Igm 48469 3 [place] SPOTTED FEVER IGG EIA FLEX . 04/04/2018 [place] Spotted Fever Igg/Igm 81411 3 RMSF, IGG SCREEN-FLEX Equivocal 04/04/2018 [place]tn Spot'D Fev Igg 949811 RMSF, IGG- TITER IFA <1:64 04/04/2018 Ehrlichia Chaffeensis Antibody Igg 677145 EHRLICHIA CHAFFEENSIS IGG <1:64 04/02/2018 Ehrlichia Chaffeensis Antibody Igm [id number] EHRLICHIA CHAFFEENSIS IGM < 1:16 04/02/2018 Lymes Disease Total Antibodies With Western Blot Refle x 336792 B. BURGDORFERI, IGG/IGM 0.23 03/30/2018 Lymes Disease Total Antibodies With Western Blot Refle x 133529 03/30/2018 Cbc With Differential Ord2 WBC 5.04 [...] 28.7 pg 03/28/2018 Cbc With Differential Ord2 Tillman% 16.1 % 03/28/2018 Cbc With Differential Ord2 [...] 1.37 K/ul 03/28/2018 Cbc With Differential Ord2 [place] ABS# 0.8 K/ul 03/28/2018 Cbc With Differential Ord2 Eos ABS# 0.1 K/ul 03/28/2018 Cbc With Differential Ord2 Baso ABS# 0.0 K/ul 03/28/2018 Comp Metabolic Zkx844 NA 136 mEq/L 02/16/2018 Comp Metabolic Zrq628 K 3.9 mEq/L 02/16/2018 Comp Metabolic Son391 CL 103 mEq/L 02/16/2018 Comp Metabolic Ndx208 CO2 23.0 mEq/L 02/16/2018 Comp Metabolic Ixf818 AN ION GAP 14 02/16/2018 Comp Metabolic Meg174 GL UCOSE 133 mg/dL 02/16/2018 Comp Metabolic Deb720 Cr eat 0.8 mg/dL 02/16/2018 Comp Metabolic Gpr225 eG FR 103 ml/min/1.73m2 01/26 Comp Metabolic Oyg077 BUN 7 mg/dL 02/16/2018 Comp Metabolic Zsz815 B/ C Ratio 8.4 Ratio 02/16/2018 Comp Metabolic Uxk233 CA LCIUM 9.3 mg/dL 02/16/2018 Comp Metabolic Ssf691 AL K PHOS 71 U/L 02/16/2018 Comp Metabolic Zxm582 T(SGOT) 42 U/L 02/16/2018 Comp Metabolic Spy015 AL T(SGPT) 69 U/L 02/16/2018 Comp Metabolic Myj136 BI LI T 0.3 mg/dL 02/16/2018 Comp Metabolic Old352 AL BUMIN 4.1 g/dL 02/16/2018 Comp Metabolic Jhi719 TP RO 6.3 g/dL 02/16/2018 Comp Metabolic Vot898 GL OB 2.2 g/dL 02/16/2018 Comp Metabolic Yqg842 A/ G Ratio 1.8 Ratio 02/16/2018 Comp Metabolic Dtr786 Os mo 272 mOsmo 02/16/2018 Free T4 Uko277 FREE T4 1.85 ng/dL 02/16/2018 Ferritin Ord22 FERRITIN 161.7 ng/mL 02/16/2018 Tsh Ord6 TSH (3rd IS) 0.01 uIU/mL 02/16/2018 Test(s) Not Perfromed [id number] Test(s) Not Performed Test(s) Not Performed. See Below: 02/16/2018 Test(s) Not Perfromed [id number] TEST NAME CBC 02/16/2018 Test(s) Not Perfromed [id number] Rejection Reason No Suitable Specimen Receive d 02/16/2018 Test(s) Not Perfromed [id number] COMMENT Please Recollect Sample 02/16/2018 Test(s) Not Perfromed [id number] Legal Billing Clerk Fernando Goyal 02/16/2018 Tibc Ord40 Iron 138 [...] 26.4 pg 01/05/2018 Cbc With Differential Ord2 Tillman% 11.9 % 01/05/2018 Cbc With Differential Ord2 [...] 2.08 K/ul 01/05/2018 Cbc With Differential Ord2 [place] ABS# 0.6 K/ul 01/05/2018 Cbc With Differential Ord2 Eos ABS# 0.2 K/ul 01/05/2018 Cbc With Differential Ord2 Baso ABS# 0.0 K/ul 01/05/2018 Ferritin Ord22 FERRITIN 5.7 ng/mL 12/06/2017 Tibc Ord40 Iron 33 ug/dl 12/06/2017 Tibc Ord40 UIBC 431 ug/dL 12/06/2017 Tibc Ord40 TIBC 464 ug/dL 12/06/2017 Tibc Ord40 Fe-%Sat 7.1 % 12/06/2017 Free T4 Lja856 FREE T4 1.82 ng/dL 12/01/2017 Tsh Ord6 [...] 27.0 pg 12/01/2017 Cbc With Differential Ord2 Tillman% 10.6 % 12/01/2017 Cbc With Differential Ord2 [...] 1.92 K/ul 12/01/2017 Cbc With Differential Ord2 [place] ABS# 0.4 K/ul 12/01/2017 Cbc With Differential Ord2 Eos ABS# 0.2 K/ul 12/01/2017 Cbc With Differential Ord2 Baso ABS# 0.0 K/ul 12/01/2017 Comp Metabolic Wso180 NA 136 mEq/L 12/01/2017 Comp Metabolic Fsq081 K 4.6 mEq/L 12/01/2017 Comp Metabolic Wdz948 CL 102 mEq/L 12/01/2017 Comp Metabolic Xdy128 CO2 27.0 mEq/L 12/01/2017 Comp Metabolic Hsh585 AN ION GAP 12 12/01/2017 Comp Metabolic Vlf720 GL UCOSE 90 mg/dL 12/01/2017 Comp Metabolic Qvt227 Cr eat 0.7 mg/dL 12/01/2017 Comp Metabolic Fgx256 eG FR 123 ml/min/1.73m2 03/2018 Comp Metabolic Qrq198 BUN 4 mg/dL 12/01/2017 Comp Metabolic Jhq290 B/ C Ratio 5.6 Ratio 12/01/2017 Comp Metabolic Yww888 CA LCIUM 9.0 mg/dL 12/01/2017 Comp Metabolic Nya366 AL K PHOS 67 U/L 12/01/2017 Comp Metabolic Twh168 T(SGOT) 30 U/L 12/01/2017 Comp Metabolic Xtn508 AL T(SGPT) 29 U/L 12/01/2017 Comp Metabolic Jkk513 BI LI T 0.3 mg/dL 12/01/2017 Comp Metabolic Mtm365 AL BUMIN 4.1 g/dL 12/01/2017 Comp Metabolic Yma057 TP RO 6.1 g/dL 12/01/2017 Comp Metabolic Bxr616 GL OB 2.0 g/dL 12/01/2017 Comp Metabolic Ett353 A/ G Ratio 2.0 Ratio 12/01/2017 Comp Metabolic Tiw083 Os mo 268 mOsmo 12/01/2017 Comp Metabolic Fui895 NA 136 mEq/L 02/16/2016 Comp Metabolic Mqp903 K 4.2 mEq/L 02/16/2016 Comp Metabolic Bvg649 CL 104 mEq/L 02/16/2016 Comp Metabolic Dvr435 CO2 20.0 mEq/L 02/16/2016 Comp Metabolic Mek035 AN ION GAP 16 02/16/2016 Comp Metabolic Trp420 GL UCOSE 71 mg/dL 02/16/2016 Comp Metabolic Gtq892 Cr eat 0.8 mg/dL 02/16/2016 Comp Metabolic Jcb679 eG FR 113 ml/min/1.73m2 01/26 Comp Metabolic Mpx095 BUN 7 mg/dL 02/16/2016 Comp Metabolic Qtc945 B/ C Ratio 9.1 Ratio 02/16/2016 Comp Metabolic Urv284 CA LCIUM 9.4 mg/dL 02/16/2016 Comp Metabolic Fri901 AL K PHOS 57 U/L 02/16/2016 Comp Metabolic Gmz756 T(SGOT) 30 U/L 02/16/2016 Comp Metabolic Vem070 AL T(SGPT) 27 U/L 02/16/2016 Comp Metabolic Jaa144 BI LI T 0.2 mg/dL 02/16/2016 Comp Metabolic Mlj621 AL BUMIN 4.4 g/dL 02/16/2016 Comp Metabolic Xtm877 TP RO 6.5 g/dL 02/16/2016 Comp Metabolic Bet764 GL OB 2.1 g/dL 02/16/2016 Comp Metabolic Bhs740 A/ G Ratio 2.1 Ratio 02/16/2016 Comp Metabolic Unb757 Os mo 268 mOsmo 02/16/2016 Free T4 Jna635 FREE T4 1.20 ng/dL 02/16/2016 Cbc With [...] 30.2 pg 02/16/2016 Cbc With Differential Ord2 Tillman% 9.6 % 02/16/2016 Cbc With Differential Ord2 [...] 1.50 K/ul 02/16/2016 Cbc With Differential Ord2 [place] ABS# 0.5 K/ul 02/16/2016 Cbc With Differential [...] 07/05/2018 None Full Exam - General 1995 Respiratory auscultation Overall: breath sounds clear bilaterally 07/05/2018 None Full Exam - General 1994 Respiratory respiratory effort/rhythm Overall: no retractions 07/05/2018 None Full Exam - General 1995 Respiratory respiratory effort/rhythm Overall: normal rate 07/05/2018 [...] Procedure Codes Date THER/PROPH/DIAG INJ SC/IM CPT-4: 82191 12/27/2018 VITAMIN B12 INJECTION CPT-4: J3420 12/27/2018 PPPS, SUBSEQ VISIT CPT- 4: G0439 09/17/2018 Vital Signs Date Vital 05/14/2019 Blood Pressure 1: 120/70 Code: 8480-6 BMI: 36.2 Code: 04755-5 Heart Rate 1: 65 bpm Height: 5'6" SpO2: 98% Weight: 224 lbs 03/12/2019 Blood Pressure 1: 130/76 Code: 8480-6 BMI: 38.6 Code: 43305-0 Heart Rate 1: 83 bpm Height: 5'6" SpO2: 99% Weight: 239 lbs 01/07/2019 Blood Pressure 1: 124/80 Code: 8480-6 BMI: 38.3 Code: 36199-6 Heart Rate 1: 88 bpm Height: 5'6" SpO2: 97% Weight: 237 lbs 12/27/2018 Blood Pressure 1: 122/80 Code: 8480-6 BMI: 38.6 Code: 83653-9 Heart Rate 1: 72 bpm Height: 5'6" SpO2: 98% Weight: 239 lbs 11/05/2018 Blood Pressure 1: 122/64 Code: 8480-6 BMI: 37.4 Code: 35166-0 Heart Rate 1: 66 bpm Height: 5'6" SpO2: 97% Weight: 232 lbs 09/27/2018 Blood Pressure 1: 92/66 Code: 8480-6 BMI: 37.9 Code: 25413-5 Heart Rate 1: 66 bpm Height: 5'6" SpO2: 98% Weight: 235 lbs 09/17/2018 Blood Pressure 1: 110/72 Code: 8480-6 BMI: 38.3 Code: 52276-6 Heart Rate 1: 77 bpm Height: 5'6" SpO2: 95% Waist Measure (cm): 102 cm Weight: 237 lbs 09/03/2018 Blood Pressure 1: 122/68 Code: 8480-6 BMI: 37.6 Code: 70365-1 Heart Rate 1: 78 bpm Height: 5'6" SpO2: 97% Weight: 233 lbs 07/05/2018 Blood Pressure 1: 94/62 Code: 8480-6 BMI: 36.8 Code: 42239-0 Heart Rate 1: 88 bpm Height: 5'6" SpO2: 99% Weight: 228 lbs 05/04/2018 Blood Pressure 1: 110/80 Code: 8480-6 BMI: 35.5 Code: 39275-3 Heart Rate 1: 80 bpm Height: 5'6" SpO2: 99% Weight: 220 lbs 03/28/2018 Blood Pressure 1: 110/72 Code: 8480-6 BMI: 35.0 Code: 49484-5 Heart Rate 1: 80 bpm Height: 5'6" SpO2: 98% Temperature: 36.2 (C ) / 97.1 (F) Weight: 217 lbs 02/27/2018 Blood Pressure 1: 136/76 Code: 8480-6 BMI: 36.0 Code: 80476-3 Heart Rate 1: 80 bpm Height: 5'6" SpO2: 98% Weight: 223 lbs 12/01/2017 Blood Pressure 1: 132/72 Code: 8480-6 BMI: 33.4 Code: 26036-8 Heart Rate 1: 82 bpm Height: 5'6" SpO2: 97% Weight: 207 lbs 09/29/2017 Blood Pressure 1: 124/68 Code: 8480-6 BMI: 32.1 Code: 61404-0 Heart Rate 1: 77 bpm Height: 5'6" SpO2: 98% Weight: 199 lbs 08/11/2017 Blood Pressure 1: 154/82 Code: 8480-6 BMI: 31.6 Code: 56380-2 Heart Rate 1: 75 bpm Height: 5'6" SpO2: 98% Weight: 196 lbs 06/09/2017 Blood Pressure 1: 148/88 Code: 8480-6 BMI: 28.6 Code: 73054-2 Heart Rate 1: 88 bpm Height: 5'6" SpO2: 98% Weight: 177 lbs 04/07/2017 Blood Pressure 1: 140/84 Code: 8480-6 BMI: 30.3 Code: 70810-3 Heart Rate 1: 81 bpm Height: 5'6" SpO2: 99% Weight: 188 lbs 11/17/2016 Blood Pressure 1: 130/72 Code: 8480-6 Heart Rate 1: 63 bpm Height: SpO2: 93% Weight: 11/10/2016 Blood Pressure 1: 128/86 Code: 8480-6 BMI: 30.3 Code: 41523-2 Heart Rate 1: 84 bpm Height: 5'6" SpO2: 96% Weight: 188 lbs 10/14/2016 Heigh t: 5'6" 09/16/2016 Blood Pressure 1: 130/80 Code: 8480-6 BMI: 30.3 Code: 74884-9 Heart Rate 1: 67 bpm Height: 5'6" SpO2: 99% Weight: 188 lbs 08/19/2016 Blood Pressure 1: 110/62 Code: 8480-6 BMI: 29.9 Code: 86777-1 Heart Rate 1: 70 bpm Height: 5'6" SpO2: 97% Weight: 185 lbs 06/17/2016 Blood Pressure 1: 112/68 Code: 8480-6 BMI: 27.6 Code: 96628-2 Heart Rate 1: 61 bpm Height: 5'6" SpO2: 98% Weight: 171 lbs 05/12/2016 Blood Pressure 1: 130/76 Code: 8480-6 BMI: 29.7 Code: 19359-9 Heart Rate 1: 103 bpm Height: 5'6" SpO2: 98% Weight: 184 lbs 02/16/2016 Blood Pressure 1: 140/82 Code: 8480-6 BMI: 28.7 Code: 98328-2 Heart Rate 1: 66 bpm Height: 5'6" SpO2: 99% Weight: 178 lbs 11/17/2015 Blood Pressure 1: 120/74 Code: 8480-6 BMI: 29.4 Code: 74866-1 Heart Rate 1: 90 bpm Height: 5'6" SpO2: 94% Weight: 182 lbs 08/28/2015 Blood Pressure 1: 128/76 Code: 8480-6 BMI: 27.9 Code: 82592-1 Heart Rate 1: 80 bpm Height: 5'6" SpO2: 98% Weight: 173 lbs 05/28/2015 Blood Pressure 1: 122/70 Code: 8480-6 BMI: 27.0 Code: 99664-5 Heart Rate 1: 74 bpm Height: 5'6" SpO2: 98% Weight: 167 lbs 04/23/2015 Blood Pressure 1: 110/60 Code: 8480-6 BMI: 27.0 Code: 54156-9 Heart Rate 1: 68 bpm Height: 5'6" [...] o ngoing 05/14/2019 None Location in the [facility] e of in the lower back [...] and Resolution ongoing 09/03/2018 None 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 P ATIENT, LEVEL III Diagnosis: Chronic pain syndrome[ICD10: G89.4] Diagnosis: Hypothyroidism, unspecified[ICD10: E03.9] [facility] CPT-4: 42517 05/14/2019 ([id number]) 54389 EST. P ATIENT, LEVEL III Diagnosis: Hypothyroidism, unspecified[ICD10: E03.9] Diagnosis: Chronic pain syndrome[ICD10: G89.4] [facility] CPT-4: 48621 03/12/2019 ([id number]) 41472 EST. P ATSTACEY, LEVEL IV Diagnosis: Chronic pain syndrome[ICD10: G89.4] Diagnosis: Hypothyroidism, unspecified[ICD10: E03.9] Diagnosis: Encounter for screening for lipoid disorders[ICD10: Z13.220] Diagnosis: Major depressive disorder, recurrent, moderate[ICD10: F33.1] [facility] CPT-4: 12918 01/07/2019 ([id number]) 87484 EST. P ATIENT, LEVEL III Diagnosis: Obstructive sleep apnea (adult) (pediatric)[ICD10: G47.33] Diagnosis: Hypothyroidism, unspecified[ICD10: E03.9] Diagnosis: Vitamin B12 deficiency anemia, unspecified[ICD10: D51.9] Leydi Jacobo MD, [facility] CPT-4: 77871 12/27/2018 ([id number]) 75766 EST. P ATIENT, LEVEL IV Diagnosis: Hypothyroidism, unspecified[ICD10: E03.9] Diagnosis: Major depressive disorder, recurrent, moderate[ICD10: F33.1] Diagnosis: Chronic pain syndrome[ICD10: G89.4] Leydi Jacobo MD, [facility] CPT-4: 16085 11/05/2018 ([id number]) 55073 EST. P ATIENT, LEVEL IV Diagnosis: Chronic pain syndrome[ICD10: G89.4] Diagnosis: Hypothyroidism, unspecified[ICD10: E03.9] Diagnosis: Other fatigue[ICD10: R53.83] Diagnosis: Other obesity due to excess calories[ICD10: E66.09] Diagnosis: Major depressive disorder, recurrent, moderate[ICD10: F33.1] Leydi Jacobo MD, [facility] CPT-4: 27750 09/27/2018 ([id number]) 35843 EST. P ATIENT, LEVEL III Diagnosis: Chronic pain syndrome[ICD10: G89.4] Leydi Jacobo [facility], [facility] CPT-4: 17079 09/03/2018 ([id number]) 41401 EST. P ATIENT, LEVEL IV Diagnosis: Hypothyroidism, unspecified[ICD10: E03.9] Diagnosis: Major depressive disorder, recurrent, moderate[ICD10: F33.1] Diagnosis: Chronic pain syndrome[ICD10: G89.4] Diagnosis: Other male erectile dysfunction[ICD10: N52.8] Diagnosis: Other fatigue[ICD10: R53.83] Diagnosis: Encounter for screening for malignant neoplasm of prostate[ICD10: Z12.5] Leydi Jacobo MD, [facility] CPT-4: 92748 07/05/2018 ([id number]) 23666 EST. P ATIENT, LEVEL IV Diagnosis: Chronic pain syndrome[ICD10: G89.4] Diagnosis: Hypothyroidism, unspecified[ICD10: E03.9] Diagnosis: Major depressive disorder, recurrent, moderate[ICD10: F33.1] Leydi Jacobo MD, [facility] CPT-4: 89988 05/04/2018 45988 EST. PATIENT, LEVEL IV Diagnosis: Melena[ICD10: K92.1] Diagnosis: Other malaise[ICD10: R53.81] Diagnosis: Other fatigue[ICD10: R53.83] Diagnosis: Pain in unspecified joint[ICD10: M25.50] Diagnosis: Diarrhea, unspecified[ICD10: R19.7] Denae Jacobo MD, [facility] CPT-4: 97089 03/28/2018 ([id number]) 54664 EST. P ATIENT, LEVEL IV Diagnosis: Chronic pain syndrome[ICD10: G89.4] Diagnosis: Hypothyroidism, unspecified[ICD10: E03.9] Diagnosis: Other obesity due to excess calories[ICD10: E66.09] Diagnosis: Major depressive disorder, recurrent, moderate[ICD10: F33.1] Diagnosis: Obstructive sleep apnea (adult) (pediatric)[ICD10: G47.33] Leydi Jacobo MD, [facility] CPT-4: 77090 02/27/2018 06873 EST. PATIENT, LEVEL IV Diagnosis: Other specified hypothyroidism[ICD10: E03.8] Diagnosis: Chronic pain syndrome[ICD10: G89.4] Diagnosis: Major depressive disorder, recurrent, moderate[ICD10: F33.1] Denae Jacobo MD, [facility] CPT-4: 99549 12/01/2017 ([id number]) 05860 EST. P ATIENT, LEVEL IV Diagnosis: Chronic pain syndrome[ICD10: G89.4] Diagnosis: Alcohol dependence, uncomplicated[ICD10: F10.20] Diagnosis: Major depressive disorder, recurrent, moderate[ICD10: F33.1] Leydi Jacobo MD, [facility] CPT-4: 83173 09/29/2017 ([id number]) 95243 EST. P ATIENT, LEVEL IV Diagnosis: Chronic pain syndrome[ICD10: G89.4] Diagnosis: Alcohol dependence, uncomplicated[ICD10: F10.20] Diagnosis: Major depressive disorder, recurrent, moderate[ICD10: F33.1] Leydi Jacobo MD, [facility] CPT-4: 16233 08/11/2017 ([id number]) 03740 EST. P ATIENT, LEVEL III Diagnosis: Chronic pain syndrome[ICD10: G89.4] Diagnosis: Major depressive disorder, recurrent, moderate[ICD10: F33.1] Leydi Jacobo MD, [facility] CPT-4: 53895 06/09/2017 ([id number]) 51025 EST. P ATIENT, LEVEL III Diagnosis: Chronic pain syndrome[ICD10: G89.4] Diagnosis: Pain in left knee[ICD10: M25.562] Leydi Jacobo MD, [facility] CPT- 4: 46631 04/07/2017 50808 EST. PATIENT, LEVEL II Diagnosis: Superficial foreign body of left upper arm, initial encounter[ICD10: S40.852A] Diagnosis: Cellulitis of left upper limb[ICD10: L03.114] Leydi Jacobo MD, [facility] CPT-4: 12675 11/17/2016 60024 EST. PATIENT, LEVEL II Diagnosis: Cellulitis of left upper limb[ICD10: L03.114] Leydi Jacobo MD, [facility] CPT-4: 26185 11/10/2016 ([id number]) 19645 EST. P ATIENT, LEVEL III Diagnosis: Chronic pain syndrome[ICD10: G89.4] Diagnosis: Major depressive disorder, recurrent, moderate[ICD10: F33.1] Leydi Jacobo MD, [facility] CPT-4: 43355 10/14/2016 74129 EST. PATIENT, LEVEL IV Diagnosis: Psychophysiologic insomnia[ICD10: F51.04] Diagnosis: Major depressive disorder, recurrent, moderate[ICD10: F33.1] Diagnosis: Alcohol dependence, uncomplicated[ICD10: F10.20] Diagnosis: Chronic pain syndrome[ICD10: G89.4] Leydi Jacobo MD, [facility] CPT-4: 68448 09/16/2016 ([id number]) 00303 EST. P ATIENT, LEVEL III Diagnosis: Pain in left shoulder[ICD10: M25.512] Diagnosis: Major depressive disorder, recurrent, moderate[ICD10: F33.1] Diagnosis: Psychophysiologic insomnia[ICD10: F51.04] Leydi Jacobo MD, [facility] CPT-4: 60468 08/19/2016 ([id number]) 96254 EST. P ATIENT, LEVEL III Diagnosis: Gastro-esophageal reflux disease without esophagitis[ICD10: K21.9] Diagnosis: Hypothyroidism, unspecified[ICD10: E03.9] Leydi Jacobo MD, [facility] CPT-4: 63741 06/17/2016 ([id number]) 49854 EST. P ATIENT, LEVEL IV Diagnosis: Gastro-esophageal reflux disease without esophagitis[ICD10: K21.9] Diagnosis: Hypothyroidism, unspecified[ICD10: E03.9] Diagnosis: Major depressive disorder, recurrent, moderate[ICD10: F33.1] Leydi Jacobo MD, [facility] CPT-4: 90009 05/12/2016 ([id number]) 10648 EST. P ATIENT, LEVEL III Diagnosis: Cervicalgia[ICD10: M54.2] Diagnosis: Hypothyroidism, unspecified[ICD10: E03.9] Diagnosis: Other male erectile dysfunction[ICD10: N52.8] Leydi Jacobo MD, [facility] CPT-4: 45925 02/16/2016 ([id number]) 75956 EST. P ATIENT, LEVEL III Diagnosis: Lumbago with sciatica, unspecified side[ICD10: M54.40] Diagnosis: Other male erectile dysfunction[ICD10: N52.8] Leydi Jacobo MD, [facility] CPT-4: 30428 11/17/2015 ([id number]) 00523 EST. P ATIENT, LEVEL III Diagnosis: Lumbago with sciatica, unspecified side[ICD10: M54.40] Diagnosis: Hypothyroidism, unspecified[ICD10: E03.9] Diagnosis: Other male erectile dysfunction[ICD10: N52.8] Leydi Jacobo MD, [facility] CPT-4: 05601 08/28/2015 ([id number]) 41473 EST. P ATIENT, LEVEL III Diagnosis: Back pain, chronic[ICD9: 724.5] Diagnosis: Depression[ICD9: 311] Diagnosis: Hypothyroid[ICD9: 244.9] Diagnosis: Bilateral calf pain[ICD9: 729.5] [facility] CPT-4: 61637 05/28/2015 ([id number]) OFFICE VISI T, NEW - LEVEL 4 Diagnosis: Back pain, chronic[ICD9: 724.5] Diagnosis: Depression[ICD9: 311] Diagnosis: Hypothyroid[ICD9: 244.9] [facility] CPT-4: 41426 04/23/2015 Plan of Care Planned Activity Notes [...] termination from this medical practice. Hypothyroidism- seeing salvage cutter 05/14/2019 Appointment: Leydi Hightower WPtel: [address] [place], [place] [id number] 05/14/2019 Patient Education: Patient Medication Summary Completed 05/14/2019 Visit Plan: Hypothyroidism -refer kaitlynn Yan at [facility] Chronic Pain Syndrome - pt has chronic pain - has been maintained on current medications, has not sought out other medications, only uses PRN pain medications as directed, and understands the consequences of over-medication. 03/12/2019 Appointment: Leydi Hightower WPtel: [phone] (30 min) Complex 03/12/2019 Patient Education: Patient Medication Summary Completed 03/12/2019 Appointment: Leydi Hightower WPtel: [address] [place], [place] [phone] (30 min) Complex 03/05/2019 Visit Plan: Chronic [...] thyroid ultrasound 01/07/2019 Appointment: Leydi Hightower WPtel: [phone] (30 min) Complex 01/07/2019 Patient Education: Patient [...] office 12/27/2018 Appointment: Leydi Hightower WPtel: [phone] (15 min) Moderate 12/27/2018 Patient Education: Patient [...] current medications. 11/05/2018 Appointment: Leydi Hightower WPtel: [phone] [phone] (30 min) Complex 11/05/2018 Patient Education: [...] of control. 09/27/2018 Appointment: Leydi Hightower WPtel: [facility]3 [phone] (15 min) Moderate 09/27/2018 Patient Education: [...] surrogate. 09/17/2018 Appointment: Leydi Hightower WPtel: [phone] [phone] [facility] - Annual Wellness Visit 09/17/2018 Patient Education: Patient Medication Summary Completed 09/17/2018 Visit Plan: Chronic Pain Syndrome - pt has chronic pain - has been maintained on current medications, has not sought out other medications, only uses PRN pain medications as directed, and understands the consequences of over-medication. 09/03/2018 Appointment: Leydi Hightower WPtel: [phone] [phone] (30 min) Complex 09/03/2018 Patient Education: Patient [...] exposure. No change in current medications. Fatigue-weight kges-ZQ-zsqzu labs including testosterone level 07/05/2018 Visit Plan: [...] exposure. No change in current medications. Fatigue-weight epun-YA-orbpt labs including testosterone level 07/05/2018 Appointment: [facility]ightower [facility]Ptel[phone] (15 min) Moderate 07/05/2018 Patient Education: Patient [...] to BID 05/04/2018 Appointment: Leydi Hightower WPtel: [phone] (15 min) Moderate 05/04/2018 Patient Education: Patient [...] pain. 03/28/2018 Appointment: Denae Martínez WPtel: [phone] [facility] (30 min) Complex 03/28/2018 Appointment: Nurse Visit [...] this time. 02/27/2018 Appointment: Leydi Hightower WPtel: [address] [place], [place] [phone] (15 min) Moderate 02/27/2018 Patient Education: Patient [...] control. 12/01/2017 Appointment: Denae Martínez WPtel: [phone] [phone] (30 min) Complex 12/01/2017 Patient Education: [...] treatment 09/29/2017 Appointment: Leydi Hightower WPtel: [phone] [phone] (30 min) Complex 09/29/2017 Patient Education: [...] ider 08/11/2017 Appointment: Leydi Hightower WPtel: [phone] [phone] (30 min) Complex 08/11/2017 Patient Education: Patient [...] current medications. 06/09/2017 Appointment: Leydi Hightower WPtel: [phone] [phone] (30 min) Complex 06/09/2017 Patient Education: Patient [...] completely resolve 11/17/2016 Appointment: Leydi Hightower WPtel: [phone] (30 min) Complex 11/17/2016 Patient Education: Patient [...] in pain. 11/10/2016 Appointment: Leydi Hightower WPtel: [phone] [phone] [place] (30 min) Complex 11/10/2016 Patient Education: Patient [...] of plan. 10/14/2016 Appointment: Leydi Hightower WPtel: [address] [place], [place] [phone] (30 min) Complex 10/14/2016 Patient Education: Patient [...] will try 09/16/2016 Appointment: Leydi Hightower WPtel: [address] [place], [place] [phone] (30 min) Complex 09/16/2016 Patient Education: Patient Medication Summary Completed 09/16/2016 Visit Plan: Left shoulder and elbow pain-xray shoulder and elbow Rwvxxiuhmz-kszjzvzh-wddyduadzlgz-d/c trazodone-start remeron at bedtime Pt has been [...] this patient. 08/19/2016 Appointment: Leydi Hightower WPtel: [facility] [place] [phone] [place] (30 min) Complex 08/19/2016 Patient Education: Patient [...] Completed 06/17/2016 [facility]ment[facility] [phone] [phone] [place] (30 min) Complex 06/09/2016 Visit Plan: Esophageal [...] of control. 05/12/2016 App[facility]ment: [facility] [phone] [phone] [place] (30 min) Complex 05/12/2016 Patient Education: Patient [...] in office. 05/28/2015 Appointment: Leydi Hightower WPtel: [address] [place], [place] [phone] (30 min) Complex 05/28/2015 Patient Education: Patient [...] Care Plan: COMPLETE CBC AUTOMATED LOINC : 62619-3 Ordered 04/23/2015 Instructions Comment DECREASE LEVOTHYROXI NE [...] termination from this medical practice. Hypothyroidism- seeing salvage cutter . Chronic Pain Syndr ome - pt [...] exposure. No change in current medications. Fatigue-weight llyc-KE-kkoyw labs including testosterone level . Chronic Pain [...] exposure. No change in current medications. 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 Chronic Pain Syndrome [...]
--- OUTSIDE RECORDS SUMMARY | 2020-03-17 14:42 | XMS REPORT | CCD ---
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 Name Role Phone PP Unavailable CCM Unavailable Summary Purpose Interface Exchange Insurance Providers Payer name Policy type / Coverage type Covered libertarian ID Effective Begin Date Effective End Date WPS Medicare Part B Medicare Part B [id number] Unknown [facility] icare Part B [id number] Un known Family history Father Diagnosis Age At Onset Colon cancer Unknown Social History Social History Element Codes Description Effective Dates Employment Unknown [employer] nt[employer] unemployed Before disability 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 On Disability Unknown Yes 09/27/2018 Marital status Unknown D ivorced 04/23/[address]: 710105207 Never smoker 04/23/[address]: 363094 Currently drinks alcohol occasionally drinks 04/23/2015 Allergies, [...] Fill Instructions baclofen 10 mg tablet RxNorm: 409985 TAKE ONE TABLET BY MOUTH THREE TIMES A D AY NEEDED 05/28/2019 09/24/2019 Active diclofenac sodium 75 mg tablet,delayed release RxNorm: 835320 TAKE ONE TABLET BY [facility] TWICE A DAY 05/21/2019 10/17/2019 Active oxymorphone 5 mg tablet RxNorm: 664649 1 Tablet(s) PO Q6 PRN 05/14/2019 07/12/2019 Active morphine 30 mg table t, crush resistant, extended release RxNorm: 6718999 1 Tablet(s) PO BID 05/14/2019 06/12/2019 Active doxycycline hyclate 100 mg tablet RxNorm: 4222507 1 Tablet(s) PO BID 05/14/2019 05/23/2019 Inactive morphine 30 mg table t, crush resistant, extended release RxNorm: 5725437 1 Tablet(s) PO BID 05/07/2019 05/13/2019 Inactive levothyroxine 200 mc g tablet RxNorm: 440057 1 Tablet(s) PO daily TAKE ONE TABLET BY MOUTH DAILY 03/12/2019 09/07/2019 Active Updated script trazodone 50 mg tablet RxNorm: 386401 1.5 Tablet(s) PO QHS TAKE ONE TABLET BY MOUTH EVERY NIGHT AT BEDTIME AND ONE-HALF TABLET BY MOUTH NEEDED 03/12/2019 06/09/2019 Active morphine 30 mg table t, crush resistant, extended release RxNorm: 6596121 1 Tablet(s) PO BID 03/12/2019 04/10/2019 Inactive oxymorphone 5 mg tablet RxNorm: 827750 1 Tablet(s) PO Q6 PRN 03/12/2019 05/10/2019 Inactive doxycycline hyclate 100 mg tablet RxNorm: 8783352 1 Tablet(s) PO BID 03/12/2019 03/21/2019 Inactive morphine 30 mg table t, crush resistant, extended release RxNorm: 8115439 1 Tablet(s) PO BID 03/06/2019 03/11/2019 Inactive tizanidine 4 mg tablet RxNorm: 332197 TAKE ONE TABLET BY MOUTH THREE TIMES A D AY NEEDED 02/26/2019 05/26/2019 Inactive diclofenac sodium 75 mg tablet,delayed release RxNorm: 729441 TAKE ONE TABLET BY [facility] TWICE A DAY 02/18/2019 05/18/2019 Inactive Protonix 40 mg table t,delayed release RxNorm: 275165 TAKE ONE TABLET BY [facility] DAILY 02/06/2019 09/03/2019 Ac tive trazodone 50 mg tablet RxNorm: 523498 TAKE ONE TABLET BY MOUTH EVERY NIGHT AT BEDTIME AND ONE-HALF TABLET BY MOUTH NEEDED 01/14/2019 03/11/2019 Inactive oxymorphone 5 mg tablet RxNorm: 970482 1 Tablet(s) PO Q6 PRN 01/07/2019 03/07/2019 Inactive morphine 30 mg table t, crush resistant, extended release RxNorm: 9277691 1 Tablet(s) PO BID 01/07/2019 03/05/2019 Inactive doxycycline hyclate 100 mg tablet RxNorm: 0265216 1 Tablet(s) PO BID 01/01/2019 01/10/2019 Inactive cyanocobalamin (vit B-12) 1,000 mcg/mL injection solution RxNorm: 454587 1 Milliliter(s) Inj 12/27/2018 12/27/2018 Inactive baclofen 10 mg tablet RxNorm: 234155 TAKE ONE TABLET BY MOUTH THREE TIMES A D AY NEEDED 11/29/2018 03/28/2019 Inactive Request already responded t o by other means (e.g. phone or fax) baclofen 10 mg tablet RxNorm: 182503 Tablet(s) TAKE ONE TABLET BY MOUTH THREE TIMES A DAY NEEDED 11/28/2018 11/28/2018 Inactive doxycycline hyclate 100 mg tablet RxNorm: 3540303 1 Tablet(s) PO BID 11/14/2018 11/23/2018 Inactive trazodone 50 mg tablet RxNorm: 106678 TAKE ONE TABLET BY MOUTH EVERY NIGHT AT BEDTIME AND ONE-HALF TABLET BY MOUTH NEEDED 11/12/2018 12/21/2018 Inactive tizanidine 4 mg tablet RxNorm: 264988 TAKE ONE TABLET BY MOUTH THREE TIMES A D AY NEEDED 10/22/2018 02/18/2019 Inactive diclofenac sodium 75 mg tablet,delayed release RxNorm: 623003 TAKE ONE TABLET BY [facility] TWICE A DAY 10/15/2018 02/11/2019 Inactive Lasix 20 mg tablet RxNorm: 383515 1 Tablet(s) PO daily as needed 10/10/2018 11/08/2018 In active potassium chloride E R 10 mEq tablet,extended release RxNorm: 663374 1 Tablet(s) PO daily as needed to take with lasix for inceased edema 10/10/2018 11/08/2018 Inactive potassium chloride E R 10 mEq tablet,extended release RxNorm: 497182 1 Tablet(s) PO daily as needed to take with lasix for inceased edema 10/10/2018 10/09/2018 Inactive Lasix 20 mg tablet RxNorm: 391215 1 Tablet(s) PO daily as needed 10/10/2018 10/09/2018 In active doxycycline hyclate 100 mg tablet RxNorm: 5864566 1 Tablet(s) PO BID 09/27/2018 10/10/2018 Inactive Remeron 15 mg tablet RxNorm: 056741 1.5 Tablet(s) PO QPM TAKE ONE TABLET BY MOUTH EVERY NIGHT AT BEDTIME 09/18/2018 12/16/2018 Inactive baclofen 10 mg tablet RxNorm: 102543 TAKE ONE TABLET BY MOUTH THREE TIMES A D AY NEEDED 09/12/2018 11/10/2018 Inactive Remeron 15 mg tablet RxNorm: 004558 1.5 Tablet(s) PO QPM TAKE ONE TABLET BY MOUTH EVERY NIGHT AT BEDTIME 09/03/2018 09/17/2018 Inactive oxymorphone 5 mg tablet RxNorm: 601453 1 Tablet(s) PO Q6 PRN 09/03/2018 11/01/2018 Inactive morphine 30 mg table t, crush resistant, extended release RxNorm: 4051259 1 Tablet(s) PO BID 09/03/2018 11/01/2018 Inactive trazodone 50 mg tablet RxNorm: 960099 TAKE ONE TABLET BY MOUTH EVERY NIGHT AT BEDTIME AND ONE-HALF TABLET BY MOUTH NEEDED 09/03/2018 10/12/2018 Inactive tizanidine 4 mg tablet RxNorm: 881209 TAKE ONE TABLET BY MOUTH THREE TIMES A D AY NEEDED 08/20/2018 10/18/2018 Inactive Protonix 40 mg table t,delayed release RxNorm: 818686 TAKE ONE TABLET BY [facility] DAILY 08/10/2018 02/05/2019 In active Carafate 1 gram tablet RxNorm: 500819 TAKE ONE TABLET BY MOUTH BEFORE MEALS AN D AT BEDTIME NEEDED FOR HEARTBURN 07/31/2018 12/27/2018 Inactive Protonix 40 mg table t,delayed release RxNorm: 916155 1 Tablet(s) BID 07/24/2018 07/23/2018 Inactive Protonix 40 mg table t,delayed release RxNorm: 532483 1 Tablet(s) daily 07/24/2018 08/09/2018 In active liothyronine 5 mcg t ablet RxNorm: 685375 TAKE ONE TABLET BY [facility] DAILY 07/19/2018 01/09/2019 In active baclofen 10 mg tablet RxNorm: 012532 TAKE ONE TABLET BY MOUTH THREE TIMES A D AY NEEDED 07/12/2018 09/09/2018 Inactive levothyroxine 175 mc g tablet RxNorm: 623894 1 Tablet(s) PO daily 07/11/2018 03/11/2019 Inactive Vitamin D2 50,000 un it capsule RxNorm: 5633327 1 Capsule(s) PO QW 07/11/2018 10/02/2018 Inactive trazodone 50 mg tablet RxNorm: 975286 TAKE ONE TABLET BY MOUTH EVERY NIGHT AT BEDTIME AND ONE-HALF TABLET BY MOUTH NEEDED 07/11/2018 08/19/2018 Inactive Vitamin D2 50,000 un it capsule RxNorm: 1316629 1 Capsule(s) PO QW 07/11/2018 07/10/2018 Inactive morphine 30 mg table t, crush resistant, extended release RxNorm: 6211625 1 Tablet(s) PO BID 07/05/2018 09/02/2018 Inactive oxymorphone 5 mg tablet RxNorm: 749738 1 Tablet(s) PO Q6 PRN 07/05/2018 09/02/2018 Inactive bupropion HCl XL 300 mg 24 hr tablet, extended release RxNorm: 906344 TAKE ONE TABLET BY MOUTH DAILY 06/27/2018 12/23/2018 Inactive Remeron 15 mg tablet RxNorm: 016503 TAKE ONE TABLET BY MOUTH EVERY NIGHT AT BEDTIME 06/27/2018 09/02/2018 Inactive tizanidine 4 mg tablet RxNorm: 046643 TAKE ONE TABLET BY MOUTH THREE TIMES A D AY NEEDED 06/20/2018 08/18/2018 Inactive doxycycline hyclate 100 mg tablet RxNorm: 7378007 1 Tablet(s) PO BID 06/18/2018 07/01/2018 Inactive Protonix 40 mg table t,delayed release RxNorm: 558825 TAKE ONE TABLET BY [facility] DAILY 06/11/2018 07/23/2018 In active doxycycline hyclate 100 mg tablet RxNorm: 4770878 1 Tablet(s) PO BID 05/22/2018 06/04/2018 Inactive baclofen 10 mg tablet RxNorm: 271272 TAKE ONE TABLET BY MOUTH THREE TIMES A D AY NEEDED 05/14/2018 07/11/2018 Inactive diclofenac sodium 75 mg tablet,delayed release RxNorm: 612362 TAKE ONE TABLET BY [facility] TWICE A DAY 05/07/2018 10/03/2018 Inactive oxymorphone 5 mg tablet RxNorm: 813901 1 Tablet(s) PO Q6 PRN 05/04/2018 07/02/2018 Inactive morphine 30 mg table t, crush resistant, extended release RxNorm: 0301271 1 Tablet(s) PO BID 05/04/2018 07/02/2018 Inactive doxycycline hyclate 100 mg tablet RxNorm: 141055 1 Tablet(s) PO BID 04/24/2018 04/23/2018 Inactive doxycycline hyclate 100 mg tablet RxNorm: 6051336 1 Tablet(s) PO BID 04/24/2018 05/03/2018 Inactive baclofen 10 mg tablet RxNorm: 919677 TAKE ONE TABLET BY MOUTH THREE TIMES A D AY NEEDED 04/13/2018 05/12/2018 Inactive trazodone 50 mg tablet RxNorm: 426581 TAKE ONE TABLET BY MOUTH EVERY NIGHT AT BEDTIME AND ONE-HALF TABLET BY MOUTH NEEDED 04/09/2018 06/07/2018 Inactive Questran 4 gram powd er for susp in a packet RxNorm: 624525 1 packet PO BID 04/06/2018 06/04/2018 In active Questran 4 gram powd er for susp in a packet RxNorm: 173897 1 packet PO BID 04/06/2018 04/05/2018 In active Carafate 1 gram tablet RxNorm: 380475 1 Tablet(s) PO AC & HS as needed for hea rtburn 03/28/2018 04/26/2018 Inactive baclofen 10 mg tablet RxNorm: 143602 TAKE ONE TABLET BY MOUTH THREE TIMES A D AY NEEDED 03/16/2018 04/12/2018 Inactive Protonix 40 mg table t,delayed release RxNorm: 183501 TAKE ONE TABLET BY [facility] DAILY 03/16/2018 06/10/2018 In active oxymorphone 5 mg tablet RxNorm: 894487 1 Tablet(s) PO Q6 PRN 02/27/2018 04/27/2018 Inactive morphine 30 mg table t, crush resistant, extended release RxNorm: 4149749 1 Tablet(s) PO BID 02/27/2018 04/27/2018 Inactive Belviq XR 20 mg tabl et,extended release RxNorm: 7035678 1 Tablet(s) PO daily 02/27/2018 01/06/2019 In active levothyroxine 100 mc g tablet RxNorm: 494398 1 Tablet(s) PO daily 02/27/2018 07/10/2018 Inactive take with 88mcg to = 188mcg daily levothyroxine 88 mcg tablet RxNorm: 746865 1 Tablet(s) PO daily 02/27/2018 07/10/2018 Inactive take with 100mcg to = 188mcg daily morphine 30 mg table t, crush resistant, extended release RxNorm: 3817084 1 Tablet(s) PO BID 02/14/2018 02/26/2018 Inactive levothyroxine 200 mc g tablet RxNorm: 714689 Tablet(s) TAKE ONE TA BLET BY MOUTH DAILY 01/18/2018 02/26/2018 Inactive Updated script baclofen 10 mg tablet RxNorm: 716341 Tablet(s) TAKE ONE TABLET BY MOUTH THREE TIMES A DAY NEEDED 01/15/2018 02/13/2018 Inactive morphine 30 mg table t, crush resistant, extended release RxNorm: 7988363 1 Tablet(s) PO BID 01/15/2018 02/13/2018 Inactive tizanidine 4 mg tablet RxNorm: 443873 TAKE ONE TABLET BY MOUTH THREE TIMES A D AY NEEDED 01/02/2018 04/01/2018 Inactive Request already responded t o by other means (e.g. phone or fax) bupropion HCl XL 300 mg 24 hr tablet, extended release RxNorm: 114994 TAKE ONE TABLET BY MOUTH DAILY 12/29/2017 06/26/2018 Inactive Tamiflu 75 mg capsule RxNorm: 182542 1 Capsule(s) PO BID 12/27/2017 12/31/2017 Inactive Tamiflu 75 mg capsule RxNorm: 729136 1 Capsule(s) PO BID 12/27/2017 12/26/2017 Inactive tizanidine 4 mg tablet RxNorm: 249564 1 Tablet(s) PO TID as needed 12/25/2017 01/01/2018 Inactive levothyroxine 175 mc g tablet RxNorm: 031906 1 Tablet(s) PO daily 12/14/2017 12/13/2017 Inactive levothyroxine 175 mc g tablet RxNorm: 430410 1 Tablet(s) PO daily 12/14/2017 01/17/2018 Inactive baclofen 10 mg tablet RxNorm: 647755 Tablet(s) TAKE ONE TABLET BY MOUTH THREE TIMES A DAY NEEDED 12/13/2017 01/11/2018 Inactive baclofen 10 mg tablet RxNorm: 157975 TAKE ONE TABLET BY MOUTH THREE TIMES A D AY NEEDED 12/13/2017 12/12/2017 Inactive morphine 30 mg table t, crush resistant, extended release RxNorm: 0655265 1 Tablet(s) PO BID 12/12/2017 01/14/2018 Inactive clonazepam 1 mg tablet RxNorm: 057498 1/2 Tablet(s) PO daily 12/01/2017 08/27/2018 Inactive trazodone 50 mg tablet RxNorm: 477858 1/2 to 1 Tablet(s) QHS as needed 12/01/2017 03/30/2018 In active Opana ER 15 mg table t, crush resistant, extended release RxNorm: 265440 1 Tablet(s) PO Q12H 12/01/2017 02/13/2018 Inactive oxymorphone 5 mg tablet RxNorm: 868548 1 Tablet(s) PO Q6 PRN 12/01/2017 02/26/2018 Inactive Remeron 15 mg tablet RxNorm: 204010 Tablet(s) TAKE ONE TABLET BY MOUTH EVERY NIGHT AT BEDTIME 12/01/2017 02/28/2018 Inactive trazodone 50 mg tablet RxNorm: 971696 1/2 Tablet(s) as needed 1 Tablet(s) PO Q HS 12/01/2017 11/30/2017 In active clonazepam 1 mg tablet RxNorm: 884179 1/2 Tablet(s) PO daily 11/30/2017 11/30/2017 Inactive Remeron 15 mg tablet RxNorm: 515050 TAKE ONE TABLET BY MOUTH EVERY NIGHT AT BEDTIME 11/29/2017 11/30/2017 Inactive levothyroxine 200 mc g tablet RxNorm: 772345 TAKE ONE TABLET BY [facility] DAILY 11/15/2017 12/13/2017 In active baclofen 10 mg tablet RxNorm: 303121 TAKE ONE TABLET BY MOUTH THREE TIMES A D AY NEEDED 11/07/2017 12/06/2017 Inactive diclofenac sodium 75 mg tablet,delayed release RxNorm: 983765 1 Tablet(s) PO BID 11/07/2017 05/05/2018 In active liothyronine 5 mcg t ablet RxNorm: 975798 TAKE ONE TABLET BY [facility] DAILY 10/27/2017 07/18/2018 In active tizanidine 4 mg tablet RxNorm: 803862 1 Tablet(s) PO TID as needed 10/18/2017 12/16/2017 Inactive oxymorphone 5 mg tablet RxNorm: 534558 1 Tablet(s) PO Q6 PRN 09/29/2017 11/27/2017 Inactive morphine 30 mg table t, crush resistant, extended release RxNorm: 3332719 1 Tablet(s) PO BID 09/29/2017 11/28/2017 Inactive baclofen 10 mg tablet RxNorm: 521047 1 Tablet(s) PO TID as needed 09/11/2017 10/10/2017 Inactive baclofen 10 mg tablet RxNorm: 513019 1 Tablet(s) PO TID as needed 08/11/2017 09/09/2017 Inactive Opana ER 15 mg table t, crush resistant, extended release RxNorm: 378325 1 Tablet(s) PO Q12H 08/11/2017 09/28/2017 Inactive Remeron 15 mg tablet RxNorm: 402797 TAKE ONE TABLET BY MOUTH EVERY NIGHT AT BEDTIME 08/02/2017 10/30/2017 Inactive oxymorphone 5 mg tablet RxNorm: 022948 1 Tablet(s) PO Q6 PRN 08/02/2017 09/28/2017 Inactive Opana ER 5 mg tablet , crush resistant, extended release RxNorm: 988448 1 Tablet(s) PO Q6 PRN 08/01/2017 08/10/2017 Inactive Protonix 40 mg table t,delayed release RxNorm: 253036 TAKE ONE TABLET BY [facility] DAILY 06/26/2017 06/25/2017 In active Protonix 40 mg table t,delayed release RxNorm: 331020 TAKE ONE TABLET BY [facility] DAILY 06/26/2017 02/05/2019 In active bupropion HCl XL 300 mg 24 hr tablet, extended release RxNorm: 957051 TAKE ONE TABLET BY MOUTH DAILY 06/13/2017 12/09/2017 Inactive tizanidine 4 mg tablet RxNorm: 656929 1 Tablet(s) PO TID as needed 06/13/2017 06/12/2017 Inactive tizanidine 4 mg tablet RxNorm: 636882 1 Tablet(s) PO TID as needed 06/13/2017 09/10/2017 Inactive baclofen 10 mg tablet RxNorm: 812109 1 Tablet(s) PO TID as needed 06/13/2017 07/12/2017 Inactive Opana ER 15 mg table t, crush resistant, extended release RxNorm: 642803 1 Tablet(s) PO Q12H 06/09/2017 08/07/2017 Inactive Opana ER 5 mg tablet , crush resistant, extended release RxNorm: 737552 1 Tablet(s) PO Q6 PRN 06/09/2017 07/31/2017 Inactive diclofenac sodium 75 mg tablet,delayed release RxNorm: 743012 1 Tablet(s) PO BID 06/09/2017 09/06/2017 In active clonazepam 1 mg tablet RxNorm: 486112 1/2 Tablet(s) PO daily 05/24/2017 11/18/2017 Inactive bupropion HCl XL 300 mg 24 hr tablet, extended release RxNorm: 351889 TAKE ONE TABLET BY MOUTH DAILY 03/16/2017 06/12/2017 Inactive clonazepam 1 mg tablet RxNorm: 686009 1/2 Tablet(s) PO daily 02/22/2017 05/18/2017 Inactive Remeron 15 mg tablet RxNorm: 107158 TAKE ONE TABLET BY MOUTH EVERY NIGHT AT BEDTIME 02/06/2017 2017 Inactive Protonix 40 mg table t,delayed release RxNorm: 524590 TAKE ONE TABLET BY [facility] DAILY 01/26/2017 06/24/2017 In active mupirocin 2 % topica l ointment RxNorm: 319729 1 Application TOP BID 01/12/2017 01/18/2017 Inactive Bactrim DS 800 mg-16 0 mg tablet RxNorm: 270813 1 Tablet(s) PO BID 11/17/2016 11/23/2016 Inactive mupirocin 2 % topica l ointment RxNorm: 504955 1 Application TOP BID 11/10/2016 11/16/2016 Inactive Bactrim DS 800 mg-16 0 mg tablet RxNorm: 595715 1 Tablet(s) PO BID 11/10/2016 11/16/2016 Inactive bupropion HCl XL 300 mg 24 hr tablet, extended release RxNorm: 227515 TAKE ONE TABLET BY MOUTH DAILY 11/07/2016 03/06/2017 Inactive liothyronine 5 mcg t ablet RxNorm: 200184 1 Tablet(s) PO daily 11/01/2016 10/26/2017 Inactive levothyroxine 200 mc g tablet RxNorm: 415389 1 Tablet(s) PO daily 10/04/2016 09/28/2017 Inactive clonazepam 1 mg tablet RxNorm: 033143 1/2 Tablet(s) PO daily 09/21/2016 03/18/2017 Inactive clonazepam 1 mg tablet RxNorm: 381705 1/2 Tablet(s) PO daily 09/16/2016 09/20/2016 Inactive Abilify 2 mg tablet RxNorm: 706461 1 Tablet(s) PO daily 09/16/2016 10/13/2016 Inactive trazodone 50 mg tablet RxNorm: 624782 1/2 Tablet(s) as needed 1 Tablet(s) PO Q HS 09/16/2016 01/13/2017 In active morphine 15 mg immed iate release tablet RxNorm: 726583 1 Tablet(s) PO Q6 PRN 09/16/2016 04/06/2017 In active baclofen 10 mg tablet RxNorm: 354383 1 Tablet(s) PO TID as needed 09/16/2016 06/12/2017 Inactive MS Contin 30 mg tabl et,extended release RxNorm: 752007 1 Tablet(s) PO Q12H 09/16/2016 04/06/2017 In active Remeron 15 mg tablet RxNorm: 180772 1 Tablet(s) PO QHS 08/19/2016 09/15/2016 Inactive levothyroxine 200 mc g tablet RxNorm: 038308 1 Tablet(s) PO daily 08/11/2016 10/03/2016 Inactive bupropion HCl XL 300 mg 24 hr tablet, extended release RxNorm: 493027 TAKE ONE TABLET BY MOUTH DAILY 08/11/2016 11/06/2016 Inactive Protonix 40 mg table t,delayed release RxNorm: 599536 1 Tablet(s) PO daily 06/17/2016 12/13/2016 In active bupropion HCl XL 300 mg 24 hr tablet, extended release RxNorm: 878220 1 Tablet(s) PO daily 05/12/2016 07/10/2016 Inactive bupropion HCl XL 300 mg 24 hr tablet, extended release RxNorm: 417292 1 Tablet(s) PO daily 05/12/2016 05/11/2016 Inactive Cialis 20 mg tablet RxNorm: 436740 1 Tablet(s) PO PRN 02/16/2016 No Stop Date Active not more than 1 tab in 24 hours morphine ER 10 mg ca psule,extended release pellets RxNorm: 609904 1 Tablet(s) PO Q6 as needed 02/16/2016 11/16/2016 Inactive clonazepam 1 mg tablet RxNorm: 476346 1/2 Tablet(s) PO BID 02/16/2016 09/15/2016 Inactive trazodone 50 mg tablet RxNorm: 217922 1/2 Tablet(s) as needed 1 Tablet(s) PO Q HS 02/16/2016 08/18/2016 In active trazodone 50 mg tablet RxNorm: 381656 1/2 Tablet(s) 1 Tablet(s) PO QHS 11/17/2015 02/15/2016 In active trazodone 50 mg tablet RxNorm: 543148 1 Tablet(s) PO QHS 10/19/2015 11/16/2015 Inactive levothyroxine 200 mc g tablet RxNorm: 146218 1 Tablet(s) PO daily 10/02/2015 08/10/2016 Inactive Wellbutrin XL 150 mg 24 hr tablet, extended release RxNorm: 551156 1 Tablet(s) PO daily 10/02/2015 05/11/2016 Inactive levothyroxine 200 mc g tablet RxNorm: 616013 1 Tablet(s) PO daily 09/30/2015 10/01/2015 Inactive Wellbutrin XL 150 mg 24 hr tablet, extended release RxNorm: 180406 1 Tablet(s) PO daily 09/30/2015 10/01/2015 Inactive trazodone 50 mg tablet RxNorm: 478789 1 Tablet(s) PO QHS 09/11/2015 10/10/2015 Inactive trazodone 50 mg tablet RxNorm: 150687 1 Tablet(s) PO QHS 09/11/2015 09/10/2015 Inactive Cymbalta 30 mg capsu le,delayed release RxNorm: 431533 1 Capsule(s) PO daily 09/07/2015 11/16/2015 In active Cymbalta 60 mg capsu le,delayed release RxNorm: 703428 1 Capsule(s) PO daily 08/31/2015 08/30/2015 In active Cymbalta 30 mg capsu le,delayed release RxNorm: 441899 1 Capsule(s) PO daily take with 60mg to make 90 mg daily 08/31/2015 09/06/2015 Inactive Cymbalta 30 mg capsu le,delayed release RxNorm: 818293 1 Capsule(s) PO daily take with 60mg to make 90 mg daily 08/31/2015 08/30/2015 Inactive Cymbalta 60 mg capsu le,delayed release RxNorm: 461720 1 Capsule(s) PO daily x 7 days and then increase to 90mg daily 08/31/2015 09/07/2015 Inactive levothyroxine 200 mc g tablet RxNorm: 807177 1 Tablet(s) PO daily 08/14/2015 09/29/2015 Inactive Wellbutrin XL 150 mg 24 hr tablet, extended release RxNorm: 372471 1 Tablet(s) PO daily 07/14/2015 09/29/2015 Inactive Cialis 20 mg tablet RxNorm: 636346 1 Tablet(s) PO PRN 07/02/2015 02/15/2016 Inactive not more than 1 tab in 24 hours liothyronine 5 mcg t ablet RxNorm: 228886 1 Tablet(s) PO daily 2015 05/29/2016 Inactive clonazepam 1 mg tablet RxNorm: 517735 1 Tablet(s) PO TID 2015 02/15/2016 Inactive minocycline 50 mg ta blet RxNorm: 810700 1 Tablet(s) PO daily 2015 05/11/2016 Inactive Wellbutrin XL 150 mg 24 hr tablet, extended release RxNorm: 759254 1 Tablet(s) PO daily 04/23/2015 07/13/2015 Inactive levothyroxine 200 mc g tablet RxNorm: 931435 1 Tablet(s) PO daily 04/23/2015 08/13/2015 Inactive Aleve oral RxNorm: 570359 oral No Start Date Active Tylenol 500 mg RxNorm: oral No Start Date Active morphine ER 15 mg ta blet,extended release RxNorm: 579710 oral No Start Date 11/16/2016 Inactive Trazadone 25 mg RxNorm: 2 PO daily No Start Date 09/11/2015 Inactive diclofenac oral RxNorm: 3355 oral No Start Date 05/04/2018 Inactive clonazepam 1 mg tablet RxNorm: 444299 1 Tablet(s) PO QHS No Start Date 06/04/2015 Inactive Wellbutrin XL 150 mg 24 hr tablet, extended release RxNorm: 916585 1 Tablet(s) PO daily No Start Date 04/22/2015 Inactive minocycline 50 mg ta blet RxNorm: 523668 1 Tablet(s) PO daily No Start Date 06/04/2015 Inactive methadone 5 mg tablet RxNorm: 026004 1 Tablet(s) PO Q8 No Start Date 02/15/2016 Inactive Protonix 40 mg table t,delayed release RxNorm: 533690 Tablet(s) PO daily No Start Date 06/16/2016 Inactive Opana ER 15 mg table t, crush resistant, extended release RxNorm: 992014 1 Tablet(s) PO Q12H No Start Date 06/08/2017 Inactive MS Contin 30 mg tabl et,extended release RxNorm: 973504 1 Tablet(s) PO Q12H No Start Date 02/15/2016 Inactive Opana ER 15 mg table t, crush resistant, extended release RxNorm: 572609 1 Tablet(s) PO BID No Start Date 09/15/2016 Inactive liothyronine 5 mcg t ablet RxNorm: 288770 1 Tablet(s) PO daily No Start Date 06/04/2015 Inactive Cialis 20 mg tablet RxNorm: 849734 1 Tablet(s) PO PRN No Start Date 07/01/2015 Inactive not more than 1 tab in 24 hours baclofen 10 mg tablet RxNorm: 638433 1 Tablet(s) PO TID as needed No Start Date 05/11/2016 Inactive morphine 15 mg immed iate release tablet RxNorm: 661524 1 Tablet(s) PO Q6 PRN as needed No Start Date 02/15/2016 Inactive levothyroxine 200 mc g tablet RxNorm: 731822 1 Tablet(s) PO daily No Start Date 04/22/2015 Inactive Opana ER 5 mg tablet , crush resistant, extended release RxNorm: 282222 1 Tablet(s) PO Q6 No Start Date 06/08/2017 Inactive Medication Administered Medication Codes Instruc tions Start Date Status cyanocobalamin (vit B-12) 1,000 mcg/mL injection solut ion RxNorm: 879537 1Milliliter 12/27/2018 No longer Active Immunizations No [...] 29.4 pg 01/07/2019 Cbc With Differential Ord2 [place]% 10.9 % 01/07/2019 Cbc With Differential Ord2 [...] 1.77 K/ul 01/07/2019 Cbc With Differential Ord2 [place] ABS# 0.5 K/ul 01/07/2019 Cbc With Differential Ord2 Eos ABS# 0.1 K/ul 01/07/2019 Cbc With Differential Ord2 Baso ABS# 0.0 K/ul 01/07/2019 Free T4 Vxh142 FREE T4 2.05 ng/dL 01/07/2019 Lipid Ord30 CHOL 189 mg/dL 01/07/2019 Lipid Ord30 HDL 58.0 mg/dl 01/07/2019 Lipid Ord30 TRIG 155 mg/dL 01/07/2019 Lipid Ord30 LDL 100 mg/dL 01/07/2019 Lipid Ord30 C/HDL 3.3 Ratio 01/07/2019 Comp Metabolic Btx296 NA 137 mEq/L 01/07/2019 Comp Metabolic Hsf700 K 4.2 mEq/L 01/07/2019 Comp Metabolic Kta067 CL 104 mEq/L 01/07/2019 Comp Metabolic Byp345 CO2 26.0 mEq/L 01/07/2019 Comp Metabolic Exh076 AN ION GAP 11 01/07/2019 Comp Metabolic Vzx435 GL UCOSE 64 mg/dL 01/07/2019 Comp Metabolic Wxq918 Cr eat 0.8 mg/dL 01/07/2019 Comp Metabolic Gwh575 eG FR 110 ml/min/1.73m2 12/28 Comp Metabolic Vrx401 BUN 7 mg/dL 01/07/2019 Comp Metabolic Xrh685 B/ C Ratio 9.0 Ratio 01/07/2019 Comp Metabolic Eqk100 CA LCIUM 9.7 mg/dL 01/07/2019 Comp Metabolic Uvv232 AL K PHOS 64 U/L 01/07/2019 Comp Metabolic Sti431 T(SGOT) 32 U/L 01/07/2019 Comp Metabolic Taf030 AL T(SGPT) 44 U/L 01/07/2019 Comp Metabolic Ezm037 BI LI T 0.3 mg/dL 01/07/2019 Comp Metabolic Bsf114 AL BUMIN 4.3 g/dL 01/07/2019 Comp Metabolic Fpc041 TP RO 6.5 g/dL 01/07/2019 Comp Metabolic Uvo900 GL OB 2.2 g/dL 01/07/2019 Comp Metabolic Ahi558 A/ G Ratio 2.0 Ratio 01/07/2019 Comp Metabolic Hzg639 Os mo 270 mOsmo 01/07/2019 Free T4 Kfc910 FREE T4 1.54 ng/dL 11/05/2018 Vitamin D 25 Oh Juy2147 VITAMIN D, 25 HYDROXY 40.65 ng/mL 11/05/2018 Tsh Ord6 TSH (3rd IS) 0.02 uIU/mL 11/05/2018 Vitamin D 25 Oh Nkn3210 VITAMIN D, 25 HYDROXY 30.96 ng/mL 07/06/2018 Comp Metabolic Zxo701 NA 141 mEq/L 07/06/2018 Comp Metabolic Jlu547 K 4.2 mEq/L 07/06/2018 Comp Metabolic Xfb767 CL 103 mEq/L 07/06/2018 Comp Metabolic Tjb702 CO2 29.0 mEq/L 07/06/2018 Comp Metabolic Chu894 AN ION GAP 13 07/06/2018 Comp Metabolic Iby629 GL UCOSE 105 mg/dL 07/06/2018 Comp Metabolic Xxc885 Cr eat 0.8 mg/dL 07/06/2018 Comp Metabolic Uke563 eG FR 101 ml/min/1.73m2 06/27 Comp Metabolic Qgx602 BUN 7 mg/dL 07/06/2018 Comp Metabolic Mtp043 B/ C Ratio 8.3 Ratio 07/06/2018 Comp Metabolic Wxo663 CA LCIUM 9.9 mg/dL 07/06/2018 Comp Metabolic Lhg603 AL K PHOS 65 U/L 07/06/2018 Comp Metabolic Fsi634 T(SGOT) 21 U/L 07/06/2018 Comp Metabolic Ian460 AL T(SGPT) 31 U/L 07/06/2018 Comp Metabolic Ule190 BI LI T 0.3 mg/dL 07/06/2018 Comp Metabolic Tej977 AL BUMIN 4.3 g/dL 07/06/2018 Comp Metabolic Aht836 TP RO 6.4 g/dL 07/06/2018 Comp Metabolic Vly177 GL OB 2.1 g/dL 07/06/2018 Comp Metabolic Noj224 A/ G Ratio 2.0 Ratio 07/06/2018 Comp Metabolic Mhe260 Os mo 280 mOsmo 07/06/2018 Cbc With [...] 29.3 pg 07/06/2018 Cbc With Differential Ord2 [place]% 10.5 % 07/06/2018 Cbc With Differential Ord2 [...] 1.89 K/ul 07/06/2018 Cbc With Differential Ord2 [place] ABS# 0.5 K/ul 07/06/2018 Cbc With Differential Ord2 Eos ABS# 0.3 K/ul 07/06/2018 Cbc With Differential Ord2 Baso ABS# 0.0 K/ul 07/06/2018 Total Psa Ord10 PSA 0.34 ng/mL 07/06/2018 Tsh Ord6 TSH (3rd IS) 0.02 uIU/mL 07/06/2018 Testosterone Svv207 Testo 400.6 ng/dL 07/06/2018 Free T4 Cfm889 FREE T4 1.48 ng/dL 07/06/2018 [place] Spotted Fever Igg/Igm 67069 3 PARTHA MT SPOTTED FEVER IGM EIA . 04/04/2018 [place] Spotted Fever Igg/Igm 49240 3 RMSF, IGM 0.24 index 04/04/2018 [place] Spotted Fever Igg/Igm 68848 3 PARTHA MT SPOTTED FEVER IGG EIA FLEX . 04/04/2018 [place] Spotted Fever Igg/Igm 99794 3 RMSF, IGG SCREEN-FLEX Equivocal 04/04/2018 Partha Mtn Spot'D Fev Igg 357679 RMSF, IGG- TITER IFA <1:64 04/04/2018 Ehrlichia Chaffeensis Antibody Igg [id number] EHRLICHIA CHAFFEENSIS IGG <1:64 04/02/2018 Ehrlichia Chaffeensis Antibody Igm [id number] EHRLICHIA CHAFFEENSIS IGM < 1:16 04/02/2018 Lymes Disease Total Antibodies With Western Blot Refle x [id number] B. BURGDORFERI, IGG/IGM 0.23 03/30/2018 Lymes Disease Total Antibodies With Western Blot Refle x [id number] 03/30/2018 Cbc With Differential Ord2 WBC 5.04 [...] 28.7 pg 03/28/2018 Cbc With Differential Ord2 [place]% 16.1 % 03/28/2018 Cbc With Differential Ord2 [...] 1.37 K/ul 03/28/2018 Cbc With Differential Ord2 [place] ABS# 0.8 K/ul 03/28/2018 Cbc With Differential Ord2 Eos ABS# 0.1 K/ul 03/28/2018 Cbc With Differential Ord2 Baso ABS# 0.0 K/ul 03/28/2018 Comp Metabolic Wst651 NA 136 mEq/L 02/16/2018 Comp Metabolic Phg248 K 3.9 mEq/L 02/16/2018 Comp Metabolic Xno726 CL 103 mEq/L 02/16/2018 Comp Metabolic Ijz329 CO2 23.0 mEq/L 02/16/2018 Comp Metabolic Jsp076 AN ION GAP 14 02/16/2018 Comp Metabolic Fde973 GL UCOSE 133 mg/dL 02/16/2018 Comp Metabolic Aqf957 Cr eat 0.8 mg/dL 02/16/2018 Comp Metabolic Rev078 eG FR 103 ml/min/1.73m2 01/26 Comp Metabolic Rta348 BUN 7 mg/dL 02/16/2018 Comp Metabolic Nbv931 B/ C Ratio 8.4 Ratio 02/16/2018 Comp Metabolic Srq045 CA LCIUM 9.3 mg/dL 02/16/2018 Comp Metabolic Txe130 AL K PHOS 71 U/L 02/16/2018 Comp Metabolic Uab698 T(SGOT) 42 U/L 02/16/2018 Comp Metabolic Uwf738 AL T(SGPT) 69 U/L 02/16/2018 Comp Metabolic Yet175 BI LI T 0.3 mg/dL 02/16/2018 Comp Metabolic Lvq833 AL BUMIN 4.1 g/dL 02/16/2018 Comp Metabolic Grj610 TP RO 6.3 g/dL 02/16/2018 Comp Metabolic Zgx937 GL OB 2.2 g/dL 02/16/2018 Comp Metabolic Pip560 A/ G Ratio 1.8 Ratio 02/16/2018 Comp Metabolic Qbu516 Os mo 272 mOsmo 02/16/2018 Free T4 Lmj569 FREE T4 1.85 ng/dL 02/16/2018 Ferritin Ord22 FERRITIN 161.7 ng/mL 02/16/2018 Tsh Ord6 TSH (3rd IS) 0.01 uIU/mL 02/16/2018 Test(s) Not Perfromed [id number] Test(s) Not Performed Test(s) Not Performed. See Below: 02/16/2018 Test(s) Not Perfromed [id number] TEST NAME CBC 02/16/2018 Test(s) Not Perfromed [id number] Rejection Reason No Suitable Specimen Receive d 02/16/2018 Test(s) Not Perfromed [id number] COMMENT Please Recollect Sample 02/16/2018 Test(s) Not Perfromed [id number] Debt And Budget Counselor Fernando Goyal 02/16/2018 Tibc Ord40 Iron 138 [...] 26.4 pg 01/05/2018 Cbc With Differential Ord2 [place]% 11.9 % 01/05/2018 Cbc With Differential Ord2 [...] 2.08 K/ul 01/05/2018 Cbc With Differential Ord2 [place] ABS# 0.6 K/ul 01/05/2018 Cbc With Differential Ord2 Eos ABS# 0.2 K/ul 01/05/2018 Cbc With Differential Ord2 Baso ABS# 0.0 K/ul 01/05/2018 Ferritin Ord22 FERRITIN 5.7 ng/mL 12/06/2017 Tibc Ord40 Iron 33 ug/dl 12/06/2017 Tibc Ord40 UIBC 431 ug/dL 12/06/2017 Tibc Ord40 TIBC 464 ug/dL 12/06/2017 Tibc Ord40 Fe-%Sat 7.1 % 12/06/2017 Free T4 Hra492 FREE T4 1.82 ng/dL 12/01/2017 Tsh Ord6 [...] 27.0 pg 12/01/2017 Cbc With Differential Ord2 [place]% 10.6 % 12/01/2017 Cbc With Differential Ord2 [...] 1.92 K/ul 12/01/2017 Cbc With Differential Ord2 [place] ABS# 0.4 K/ul 12/01/2017 Cbc With Differential Ord2 Eos ABS# 0.2 K/ul 12/01/2017 Cbc With Differential Ord2 Baso ABS# 0.0 K/ul 12/01/2017 Comp Metabolic Ibw036 NA 136 mEq/L 12/01/2017 Comp Metabolic Wvi819 K 4.6 mEq/L 12/01/2017 Comp Metabolic Wsu908 CL 102 mEq/L 12/01/2017 Comp Metabolic Fpt561 CO2 27.0 mEq/L 12/01/2017 Comp Metabolic Yxx667 AN ION GAP 12 12/01/2017 Comp Metabolic Def895 GL UCOSE 90 mg/dL 12/01/2017 Comp Metabolic Lpj041 Cr eat 0.7 mg/dL 12/01/2017 Comp Metabolic Fol156 eG FR 123 ml/min/1.73m2 03/2018 Comp Metabolic Tnk748 BUN 4 mg/dL 12/01/2017 Comp Metabolic Ooe716 B/ C Ratio 5.6 Ratio 12/01/2017 Comp Metabolic Vpe047 CA LCIUM 9.0 mg/dL 12/01/2017 Comp Metabolic Upb055 AL K PHOS 67 U/L 12/01/2017 Comp Metabolic Kvb962 T(SGOT) 30 U/L 12/01/2017 Comp Metabolic Qpe549 AL T(SGPT) 29 U/L 12/01/2017 Comp Metabolic Wfc088 BI LI T 0.3 mg/dL 12/01/2017 Comp Metabolic Anl224 AL BUMIN 4.1 g/dL 12/01/2017 Comp Metabolic Ozc128 TP RO 6.1 g/dL 12/01/2017 Comp Metabolic Hdp448 GL OB 2.0 g/dL 12/01/2017 Comp Metabolic Tan758 A/ G Ratio 2.0 Ratio 12/01/2017 Comp Metabolic Kwn597 Os mo 268 mOsmo 12/01/2017 Comp Metabolic Sff209 NA 136 mEq/L 02/16/2016 Comp Metabolic Uti576 K 4.2 mEq/L 02/16/2016 Comp Metabolic Wal240 CL 104 mEq/L 02/16/2016 Comp Metabolic Wya542 CO2 20.0 mEq/L 02/16/2016 Comp Metabolic Trw414 AN ION GAP 16 02/16/2016 Comp Metabolic Oyo328 GL UCOSE 71 mg/dL 02/16/2016 Comp Metabolic Wlf520 Cr eat 0.8 mg/dL 02/16/2016 Comp Metabolic Bdn941 eG FR 113 ml/min/1.73m2 01/26 Comp Metabolic Sgn622 BUN 7 mg/dL 02/16/2016 Comp Metabolic Kzd814 B/ C Ratio 9.1 Ratio 02/16/2016 Comp Metabolic Gil466 CA LCIUM 9.4 mg/dL 02/16/2016 Comp Metabolic Vqt636 AL K PHOS 57 U/L 02/16/2016 Comp Metabolic Vhx309 T(SGOT) 30 U/L 02/16/2016 Comp Metabolic Lrp438 AL T(SGPT) 27 U/L 02/16/2016 Comp Metabolic Fvd122 BI LI T 0.2 mg/dL 02/16/2016 Comp Metabolic Pcl645 AL BUMIN 4.4 g/dL 02/16/2016 Comp Metabolic Qin441 TP RO 6.5 g/dL 02/16/2016 Comp Metabolic Vta215 GL OB 2.1 g/dL 02/16/2016 Comp Metabolic Xnn365 A/ G Ratio 2.1 Ratio 02/16/2016 Comp Metabolic Kht476 Os mo 268 mOsmo 02/16/2016 Free T4 Fyw963 FREE T4 1.20 ng/dL 02/16/2016 Cbc With [...] 30.2 pg 02/16/2016 Cbc With Differential Ord2 [place]% 9.6 % 02/16/2016 Cbc With Differential Ord2 [...] 1.50 K/ul 02/16/2016 Cbc With Differential Ord2 [place] ABS# 0.5 K/ul 02/16/2016 Cbc With Differential [...] 08/28/2015 Constitutional No fever 08/28/2015 Psychiatric anxiety 10/12/2014 Psychiatric depression 1 Hematologic/Lymphatic No abnormal bl [...] Procedure Codes Date THER/PROPH/DIAG INJ SC/IM CPT-4: 90916 12/27/2018 VITAMIN B12 INJECTION CPT-4: J3420 12/27/2018 PPPS, SUBSEQ VISIT CPT- 4: G0439 09/17/2018 Vital Signs Date Vital 05/14/2019 Blood Pressure 1: 120/70 Code: 8480-6 BMI: 36.2 Code: 58789-0 Heart Rate 1: 65 bpm Height: 5'6" SpO2: 98% Weight: 224 lbs 03/12/2019 Blood Pressure 1: 130/76 Code: 8480-6 BMI: 38.6 Code: 28293-8 Heart Rate 1: 83 bpm Height: 5'6" SpO2: 99% Weight: 239 lbs 01/07/2019 Blood Pressure 1: 124/80 Code: 8480-6 BMI: 38.3 Code: 27247-8 Heart Rate 1: 88 bpm Height: 5'6" SpO2: 97% Weight: 237 lbs 12/27/2018 Blood Pressure 1: 122/80 Code: 8480-6 BMI: 38.6 Code: 34937-9 Heart Rate 1: 72 bpm Height: 5'6" SpO2: 98% Weight: 239 lbs 11/05/2018 Blood Pressure 1: 122/64 Code: 8480-6 BMI: 37.4 Code: 94635-7 Heart Rate 1: 66 bpm Height: 5'6" SpO2: 97% Weight: 232 lbs 09/27/2018 Blood Pressure 1: 92/66 Code: 8480-6 BMI: 37.9 Code: 19843-9 Heart Rate 1: 66 bpm Height: 5'6" SpO2: 98% Weight: 235 lbs 09/17/2018 Blood Pressure 1: 110/72 Code: 8480-6 BMI: 38.3 Code: 47453-5 Heart Rate 1: 77 bpm Height: 5'6" SpO2: 95% Waist Measure (cm): 102 cm Weight: 237 lbs 09/03/2018 Blood Pressure 1: 122/68 Code: 8480-6 BMI: 37.6 Code: 79266-0 Heart Rate 1: 78 bpm Height: 5'6" SpO2: 97% Weight: 233 lbs 07/05/2018 Blood Pressure 1: 94/62 Code: 8480-6 BMI: 36.8 Code: 40934-6 Heart Rate 1: 88 bpm Height: 5'6" SpO2: 99% Weight: 228 lbs 05/04/2018 Blood Pressure 1: 110/80 Code: 8480-6 BMI: 35.5 Code: 99520-2 Heart Rate 1: 80 bpm Height: 5'6" SpO2: 99% Weight: 220 lbs 03/28/2018 Blood Pressure 1: 110/72 Code: 8480-6 BMI: 35.0 Code: 99029-8 Heart Rate 1: 80 bpm Height: 5'6" SpO2: 98% Temperature: 36.2 (C ) / 97.1 (F) Weight: 217 lbs 02/27/2018 Blood Pressure 1: 136/76 Code: 8480-6 BMI: 36.0 Code: 34986-1 Heart Rate 1: 80 bpm Height: 5'6" SpO2: 98% Weight: 223 lbs 12/01/2017 Blood Pressure 1: 132/72 Code: 8480-6 BMI: 33.4 Code: 03506-1 Heart Rate 1: 82 bpm Height: 5'6" SpO2: 97% Weight: 207 lbs 09/29/2017 Blood Pressure 1: 124/68 Code: 8480-6 BMI: 32.1 Code: 12760-1 Heart Rate 1: 77 bpm Height: 5'6" SpO2: 98% Weight: 199 lbs 08/11/2017 Blood Pressure 1: 154/82 Code: 8480-6 BMI: 31.6 Code: 19212-3 Heart Rate 1: 75 bpm Height: 5'6" SpO2: 98% Weight: 196 lbs 06/09/2017 Blood Pressure 1: 148/88 Code: 8480-6 BMI: 28.6 Code: 05767-0 Heart Rate 1: 88 bpm Height: 5'6" SpO2: 98% Weight: 177 lbs 04/07/2017 Blood Pressure 1: 140/84 Code: 8480-6 BMI: 30.3 Code: 78118-5 Heart Rate 1: 81 bpm Height: 5'6" SpO2: 99% Weight: 188 lbs 11/17/2016 Blood Pressure 1: 130/72 Code: 8480-6 Heart Rate 1: 63 bpm Height: SpO2: 93% Weight: 11/10/2016 Blood Pressure 1: 128/86 Code: 8480-6 BMI: 30.3 Code: 94184-0 Heart Rate 1: 84 bpm Height: 5'6" SpO2: 96% Weight: 188 lbs 10/14/2016 Heigh t: 5'6" 09/16/2016 Blood Pressure 1: 130/80 Code: 8480-6 BMI: 30.3 Code: 29671-2 Heart Rate 1: 67 bpm Height: 5'6" SpO2: 99% Weight: 188 lbs 08/19/2016 Blood Pressure 1: 110/62 Code: 8480-6 BMI: 29.9 Code: 30481-9 Heart Rate 1: 70 bpm Height: 5'6" SpO2: 97% Weight: 185 lbs 06/17/2016 Blood Pressure 1: 112/68 Code: 8480-6 BMI: 27.6 Code: 29400-8 Heart Rate 1: 61 bpm Height: 5'6" SpO2: 98% Weight: 171 lbs 05/12/2016 Blood Pressure 1: 130/76 Code: 8480-6 BMI: 29.7 Code: 47865-4 Heart Rate 1: 103 bpm Height: 5'6" SpO2: 98% Weight: 184 lbs 02/16/2016 Blood Pressure 1: 140/82 Code: 8480-6 BMI: 28.7 Code: 16143-0 Heart Rate 1: 66 bpm Height: 5'6" SpO2: 99% Weight: 178 lbs 11/17/2015 Blood Pressure 1: 120/74 Code: 8480-6 BMI: 29.4 Code: 97946-9 Heart Rate 1: 90 bpm Height: 5'6" SpO2: 94% Weight: 182 lbs 08/28/2015 Blood Pressure 1: 128/76 Code: 8480-6 BMI: 27.9 Code: 26834-4 Heart Rate 1: 80 bpm Height: 5'6" SpO2: 98% Weight: 173 lbs 05/28/2015 Blood Pressure 1: 122/70 Code: 8480-6 BMI: 27.0 Code: 35030-6 Heart Rate 1: 74 bpm Height: 5'6" SpO2: 98% Weight: 167 lbs 04/23/2015 Blood Pressure 1: 110/60 Code: 8480-6 BMI: 27.0 Code: 90028-0 Heart Rate 1: 68 bpm Height: 5'6" [...] o ngoing 05/14/2019 None [facility] [place] [...] and Resolution ongoing 09/03/2018 None hypothyroid Quality chromosomal disorders counselor fe 09/03/2018 None hypothyroid Onset and Resolution [...] fatigue Quality constant 07/05/2018 None hypothyroid Quality chromosomal disorders counselor fe 07/05/2018 None hypothyroid Onset and Resolution [...] Findings weight loss 03/28/2018 None hypothyroid Quality chromosomal disorders counselor fe 02/27/2018 None hypothyroid Onset and Resolution [...] Encounters Encounter Performer Loca tion Codes Date ([id number]) 08680 EST. P ATIENT, LEVEL III Diagnosis: Chronic pain syndrome[ICD10: G89.4] Diagnosis: Hypothyroidism, unspecified[ICD10: E03.9] [facility] CPT-4: 91107 05/14/2019 [id number]) 08069 EST. P ATIENT, LEVEL III Diagnosis: Hypothyroidism, unspecified[ICD10: E03.9] Diagnosis: Chronic pain syndrome[ICD10: G89.4] [facility] CPT-4: 80442 03/12/2019 [id number]) 05312 EST. P ATIENT, LEVEL IV Diagnosis: Chronic pain syndrome[ICD10: G89.4] Diagnosis: Hypothyroidism, unspecified[ICD10: E03.9] Diagnosis: Encounter for screening for lipoid disorders[ICD10: Z13.220] Diagnosis: Major depressive disorder, recurrent, moderate[ICD10: F33.1] [facility] CPT-4: 50172 01/07/2019 [id number]) 78574 EST. P ATIENT, LEVEL III Diagnosis: Obstructive sleep apnea (adult) (pediatric)[ICD10: G47.33] Diagnosis: Hypothyroidism, unspecified[ICD10: E03.9] Diagnosis: Vitamin B12 deficiency anemia, unspecified[ICD10: D51.9] Leydi Jacobo MD, [facility] CPT-4: 33066 12/27/2018 ([id number]) 00293 EST. P ATIENT, LEVEL IV Diagnosis: Hypothyroidism, unspecified[ICD10: E03.9] Diagnosis: Major depressive disorder, recurrent, moderate[ICD10: F33.1] Diagnosis: Chronic pain syndrome[ICD10: G89.4] Leydi Jacobo MD, [facility] CPT-4: 45961 11/05/2018 ([id number]) 53527 EST. P ATIENT, LEVEL IV Diagnosis: Chronic pain syndrome[ICD10: G89.4] Diagnosis: Hypothyroidism, unspecified[ICD10: E03.9] Diagnosis: Other fatigue[ICD10: R53.83] Diagnosis: Other obesity due to excess calories[ICD10: E66.09] Diagnosis: Major depressive disorder, recurrent, moderate[ICD10: F33.1] Leydi Jacobo MD, [facility] CPT-4: 41133 09/27/2018 ([id number]) 30395 EST. P ATIENT, LEVEL III Diagnosis: Chronic pain syndrome[ICD10: G89.4] Leydi Jacobo MD, [facility] CPT-4: 23847 09/03/2018 ([id number]) 49842 EST. P ATIENT, LEVEL IV Diagnosis: Hypothyroidism, unspecified[ICD10: E03.9] Diagnosis: Major depressive disorder, recurrent, moderate[ICD10: F33.1] Diagnosis: Chronic pain syndrome[ICD10: G89.4] Diagnosis: Other male erectile dysfunction[ICD10: N52.8] Diagnosis: Other fatigue[ICD10: R53.83] Diagnosis: Encounter for screening for malignant neoplasm of prostate[ICD10: Z12.5] Leydi Jacobo MD, [facility] CPT-4: 41243 07/05/2018 ([id number]) 99328 EST. P ATIENT, LEVEL IV Diagnosis: Chronic pain syndrome[ICD10: G89.4] Diagnosis: Hypothyroidism, unspecified[ICD10: E03.9] Diagnosis: Major depressive disorder, recurrent, moderate[ICD10: F33.1] Leydi Jacobo MD, [facility] CPT-4: 80406 05/04/2018 11635 EST. PATIENT, LEVEL IV Diagnosis: Melena[ICD10: K92.1] Diagnosis: Other malaise[ICD10: R53.81] Diagnosis: Other fatigue[ICD10: R53.83] Diagnosis: Pain in unspecified joint[ICD10: M25.50] Diagnosis: Diarrhea, unspecified[ICD10: R19.7] Denae Jacobo MD, [facility] CPT-4: 32006 03/28/2018 ([id number]) 84810 EST. [facility] Diagnosis: Chronic pain syndrome[ICD10: G89.4] Diagnosis: Hypothyroidism, unspecified[ICD10: E03.9] Diagnosis: Other obesity due to excess calories[ICD10: E66.09] Diagnosis: Major depressive disorder, recurrent, moderate[ICD10: F33.1] Diagnosis: Obstructive sleep apnea (adult) (pediatric)[ICD10: G47.33] Leydi Jacobo MD, [facility] CPT-4: 20622 02/27/2018 43228 EST. PATIENT, LEVEL IV Diagnosis: Other specified hypothyroidism[ICD10: E03.8] Diagnosis: Chronic pain syndrome[ICD10: G89.4] Diagnosis: Major depressive disorder, recurrent, moderate[ICD10: F33.1] Denae Jacobo MD, [facility] CPT-4: 27405 12/01/2017 ([id number]) 55753 EST. P ATIENT, LEVEL IV Diagnosis: Chronic pain syndrome[ICD10: G89.4] Diagnosis: Alcohol dependence, uncomplicated[ICD10: F10.20] Diagnosis: Major depressive disorder, recurrent, moderate[ICD10: F33.1] Leydi Jacobo MD, [facility] CPT-4: 01300 09/29/2017 ([id number]) 62837 EST. P ATIENT, LEVEL IV Diagnosis: Chronic pain syndrome[ICD10: G89.4] Diagnosis: Alcohol dependence, uncomplicated[ICD10: F10.20] Diagnosis: Major depressive disorder, recurrent, moderate[ICD10: F33.1] Leydi Jacobo MD, [facility] CPT-4: 37609 08/11/2017 ([id number]) 95193 EST. [facility] LEV[facility] Diagnosis: Chronic pain syndrome[ICD10: G89.4] Diagnosis: Major depressive disorder, recurrent, moderate[ICD10: F33.1] Leydi Jacobo MD, [facility] CPT-4: 02463 06/09/2017 ([id number]) 31368 EST. [facility] LEVEL [facility] Diagnosis: Chronic pain syndrome[ICD10: G89.4] Diagnosis: Pain in left knee[ICD10: M25.562] Leydi Jacobo MD, [facility] CPT- 4: 18278 04/07/2017 97604 EST. PATIENT, LEVEL II Diagnosis: Superficial foreign body of left upper arm, initial encounter[ICD10: S40.852A] Diagnosis: Cellulitis of left upper limb[ICD10: L03.114] Leydi Jacobo MD, [facility] CPT-4: 15352 11/17/2016 58725 EST. PATIENT, LEVEL II Diagnosis: Cellulitis of left upper limb[ICD10: L03.114] Leydi Jacobo MD, [facility] CPT-4: 52132 11/10/2016 ([id number]) 25609 EST. [facility] LEV[facility] Diagnosis: Chronic pain syndrome[ICD10: G89.4] Diagnosis: Major depressive disorder, recurrent, moderate[ICD10: F33.1] Leydi Jacobo MD, [facility] CPT-4: 34578 10/14/2016 06099 EST. PATIENT, LEVEL IV Diagnosis: Psychophysiologic insomnia[ICD10: F51.04] Diagnosis: Major depressive disorder, recurrent, moderate[ICD10: F33.1] Diagnosis: Alcohol dependence, uncomplicated[ICD10: F10.20] Diagnosis: Chronic pain syndrome[ICD10: G89.4] Leydi Jacobo MD, [facility] CPT-4: 31850 09/16/2016 ([id number]) 69666 EST. P ATIENT, LEVEL III Diagnosis: Pain in left shoulder[ICD10: M25.512] Diagnosis: Major depressive disorder, recurrent, moderate[ICD10: F33.1] Diagnosis: Psychophysiologic insomnia[ICD10: F51.04] Leydi Jacobo MD, [facility] CPT-4: 13365 08/19/2016 ([id number]) 69957 EST. P ATIENT, LEVEL III Diagnosis: Gastro-esophageal reflux disease without esophagitis[ICD10: K21.9] Diagnosis: Hypothyroidism, unspecified[ICD10: E03.9] Leydi Jacobo MD, [facility] CPT-4: 02277 06/17/2016 ([id number]) 72077 EST. P ATIENT, LEVEL IV Diagnosis: Gastro-esophageal reflux disease without esophagitis[ICD10: K21.9] Diagnosis: Hypothyroidism, unspecified[ICD10: E03.9] Diagnosis: Major depressive disorder, recurrent, moderate[ICD10: F33.1] Leydi Jacobo MD, [facility] CPT-4: 79624 05/12/2016 ([id number]) 87228 EST. P ATIENT, LEVEL III Diagnosis: Cervicalgia[ICD10: M54.2] Diagnosis: Hypothyroidism, unspecified[ICD10: E03.9] Diagnosis: Other male erectile dysfunction[ICD10: N52.8] Leydi Jacobo MD, [facility] CPT-4: 99324 02/16/2016 ([id number]) 64059 EST. P ATIENT, LEVEL III Diagnosis: Lumbago with sciatica, unspecified side[ICD10: M54.40] Diagnosis: Other male erectile dysfunction[ICD10: N52.8] Leydi Jacobo MD, [facility] CPT-4: 52617 11/17/2015 ([id number]) 42576 EST. P ATIENT, LEVEL III Diagnosis: Lumbago with sciatica, unspecified side[ICD10: M54.40] Diagnosis: Hypothyroidism, unspecified[ICD10: E03.9] Diagnosis: Other male erectile dysfunction[ICD10: N52.8] Leydi Jacobo MD, [facility] CPT-4: 56610 08/28/2015 ([id number]) 43784 EST. P ATIENT, LEVEL III Diagnosis: Back pain, chronic[ICD9: 724.5] Diagnosis: Depression[ICD9: 311] Diagnosis: Hypothyroid[ICD9: 244.9] Diagnosis: Bilateral calf pain[ICD9: 729.5] [facility] CPT-4: 73489 05/28/2015 ([id number]) OFFICE VIVIANA CASTILLO - LEVEL 4 Diagnosis: Back pain, chronic[ICD9: 724.5] Diagnosis: Depression[ICD9: 311] Diagnosis: Hypothyroid[ICD9: 244.9] [facility] CPT-4: 97840 04/23/2015 Plan of Care Planned Activity Notes [...] termination from this medical practice. Hypothyroidism- seeing high tension tester 05/14/2019 Appointment: Leydi Hightower WPtel: [address] [place] [address] (30 min) Complex 05/14/2019 Patient Education: Patient Medication Summary Completed 05/14/2019 Visit Plan: Hypothyroidism -refer kaitlynn Yan at [facility] Chronic Pain Syndrome - pt has chronic pain - has been maintained on current medications, has not sought out other medications, only uses PRN pain medications as directed, and understands the consequences of over-medication. 03/12/2019 Appointment: Leydi Hightower WPtel: [address] [place] [address] (30 min) Complex 03/12/2019 Patient Education: Patient Medication Summary Completed 03/12/2019 Appointment: Leydi Hightower WPtel: [facility] (30 min) Complex 03/05/2019 Visit Plan: Chronic [...] ultrasound 01/07/2019 Appointment: Leydi Hightower WPtel: [phone] [phone] (30 min) Complex 01/07/2019 Patient Education: [...] office 12/27/2018 Appointment: Leydi Hightower WPtel: [phone] [phone] [place] (15 min) Moderate 12/27/2018 Patient Education: [...] current medications. 11/05/2018 Appointment: Leydi Hightower WPtel: [phone] [phone] (30 min) Complex 11/05/2018 Patient Education: Patient [...] of control. 09/27/2018 Appointment: Leydi Hightower WPtel: [facility] (15 min) Moderate 09/27/2018 Patient Education: Patient [...] care surrogate. 09/17/2018 Appointment: Leydi Hightower WPtel: [facility] [place] [phone] [facility] - Annual Wellness Visit 09/17/2018 Patient Education: Patient Medication Summary Completed 09/17/2018 Visit Plan: Chronic Pain Syndrome - pt has chronic pain - has been maintained on current medications, has not sought out other medications, only uses PRN pain medications as directed, and understands the consequences of over-medication. 09/03/2018 App[facility]ment: [phone] [phone] (30 min) Complex 09/03/2018 Patient [...] exposure. No change in current medications. Fatigue-weight ohvs-TB-dhuqx labs including testosterone level 07/05/2018 Visit Plan: [...] exposure. No change in current medications. Fatigue-weight igxv-BC-jxufu labs including testosterone level 07/05/2018 Appointment: [facility]el[facility] [phone] [phone] (15 min) Moderate 07/05/2018 Patient Education: [...] BID 05/04/2018 Appointment: Leydi Hightower WPtel: [phone] [phone] (15 min) Moderate 05/04/2018 Patient Education: Patient [...] this time. 02/27/2018 Appointment: Leydi Hightower WPtel: [phone] (15 min) Moderate 02/27/2018 Patient [...] of control. 12/01/2017 Appointment: Denae Martínez WPtel: [phone] (30 min) Complex 12/01/2017 Patient Education: Patient [...] 11 days-attending outpatient treatment 09/29/2017 Appointment: Leydi Hgihtower WPtel: [id number] [phone] (30 min) Complex 09/29/2017 Patient Education: Patient [...] cons ider 08/11/2017 Appointment: Leydi Hightower WPtel: [phone] (30 min) Complex 08/11/2017 Patient Education: Patient [...] current medications. 06/09/2017 Appointment: Leydi Hightower WPtel: [phone] (30 min) Complex 06/09/2017 Patient Education: Patient [...] completely resolve 11/17/2016 Appointment: Leydi Hightower WPtel: [phone] (30 min) Complex 11/17/2016 Patient Education: [...] in pain. 11/10/2016 Appointment: Leydi Hightower WPtel: [phone] (30 min) Complex 11/10/2016 Patient Education: Patient [...] of plan. 10/14/2016 Appointment: Leydi Hightower WPtel: [facility] [phone] (30 min) Complex 10/14/2016 Patient Education: Patient [...] will try 09/16/2016 Appointment: Leydi Hightower WPtel: [phone] (30 min) Complex 09/16/2016 Patient Education: Patient Medication Summary Completed 09/16/2016 Visit Plan: Left shoulder and elbow pain-xray shoulder and elbow Bmbsbguzwm-mbqxxlvu-nobihqlqlaag-d/c trazodone-start remeron at bedtime Pt has been [...] this patient. 08/19/2016 Appointment: Leydi Hightower WPtel: [phone] (30 min) Complex 08/19/2016 Patient Education: Patient [...] Obesity Completed 06/17/2016 Appointment: Ley[facility] Hightower WPtel[phone] ([facility] min) Complex 06/09/2016 Visit Plan: Esophageal [...] of control. 05/12/2016 Appointment: Leydi Hightower WPtel[phone] ([facility] min) Complex 05/12/2016 Patient [...] in office. 05/28/2015 Appointment: Leydi Hightower WPtel: [address] [place], [place] [phone] (30 min) Complex 05/28/2015 Patient Education: Patient [...] Patient Medication Summary Completed 04/23/2015 Patient Education: [facility] [place] - Saving AutoInj - 18-64 - Dynamic Portal ID Completed 04/23/2015 Patient Education: [facility] [place] - Saving [employer]j - Levothyroxine - 18-64 - Dynamic Portal ID Completed 04/23/2015 Care Plan: COMPLETE CBC AUTOMATED LOINC : 18507-2 Ordered 04/23/2015 Instructions Comment DECREASE LEVOTHYROXI NE [...] termination from this medical practice. Hypothyroidism- seeing high tension tester . Chronic Pain Syndr ome - pt [...] exposure. No change in current medications. Fatigue-weight qqis-VE-jejoi labs including testosterone level . Chronic Pain [...] exposure. No change in current medications. 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 Chronic Pain Syndrome [...]
--- OUTSIDE RECORDS SUMMARY | 2020-03-17 14:44 | XMS REPORT | CCD ---
Author Author Thai Castillo Organization Sara Jacobo MD, [facility] Address [address] [place] [address] Phone Care Team Providers Care Developmental Mathematics Professor Name Role Phone PP Unavailable CCM Unavailable Summary Purpose Interface Exchange Insurance Providers Payer name Policy type / Coverage type Covered libertarian ID Effective Begin Date Effective End Date WPS Medicare Part B Medicare Part B [id number] Unknown [facility] icare Part B [id number] Un known Family history Father Diagnosis Age At Onset Colon cancer Unknown Social History Social History Element Codes Description Effective Dates Employment Unknown [employer] unemployed Before disability 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 On Disability Unknown Yes 09/27/2018 Marital status Unknown D ivorced 04/23/[address]: 988487896 Never smoker 04/23/[address]: 718177 Currently drinks alcohol occasionally drinks 04/23/2015 Allergies, [...] Date Stop Date Sta tus Fill Instructions diclofenac sodium 75 mg tablet,delayed release RxNorm: 100078 TAKE ONE TABLET BY [facility] TWICE A DAY 05/21/2019 10/17/2019 Active doxycycline hyclate 100 mg tablet RxNorm: 4303349 1 Tablet(s) PO BID 05/14/2019 05/23/2019 Active oxymorphone 5 mg tablet RxNorm: 001352 1 Tablet(s) PO Q6 PRN 05/14/2019 07/12/2019 Active morphine 30 mg table t, crush resistant, extended release RxNorm: 7153382 1 Tablet(s) PO BID 05/14/2019 06/12/2019 Active morphine 30 mg table t, crush resistant, extended release RxNorm: 0090872 1 Tablet(s) PO BID 05/07/2019 05/13/2019 Inactive levothyroxine 200 mc g tablet RxNorm: 437091 1 Tablet(s) PO daily TAKE ONE TABLET BY MOUTH DAILY 03/12/2019 09/07/2019 Active Updated script trazodone 50 mg tablet RxNorm: 395226 1.5 Tablet(s) PO QHS TAKE ONE TABLET BY MOUTH EVERY NIGHT AT BEDTIME AND ONE-HALF TABLET BY MOUTH NEEDED 03/12/2019 06/09/2019 Active morphine 30 mg table t, crush resistant, extended release RxNorm: 8756798 1 Tablet(s) PO BID 03/12/2019 04/10/2019 Inactive oxymorphone 5 mg tablet RxNorm: 195605 1 Tablet(s) PO Q6 PRN 03/12/2019 05/10/2019 Inactive doxycycline hyclate 100 mg tablet RxNorm: 1949464 1 Tablet(s) PO BID 03/12/2019 03/21/2019 Inactive morphine 30 mg table t, crush resistant, extended release RxNorm: 3096305 1 Tablet(s) PO BID 03/06/2019 03/11/2019 Inactive tizanidine 4 mg tablet RxNorm: 150032 TAKE ONE TABLET BY MOUTH THREE TIMES A D AY NEEDED 02/26/2019 05/26/2019 Active diclofenac sodium 75 mg tablet,delayed release RxNorm: 861915 TAKE ONE TABLET BY [facility] TWICE A DAY 02/18/2019 05/18/2019 Inactive Protonix 40 mg table t,delayed release RxNorm: 392613 TAKE ONE TABLET BY [facility] DAILY 02/06/2019 09/03/2019 Ac tive trazodone 50 mg tablet RxNorm: 278587 TAKE ONE TABLET BY MOUTH EVERY NIGHT AT BEDTIME AND ONE-HALF TABLET BY MOUTH NEEDED 01/14/2019 03/11/2019 Inactive oxymorphone 5 mg tablet RxNorm: 649639 1 Tablet(s) PO Q6 PRN 01/07/2019 03/07/2019 Inactive morphine 30 mg table t, crush resistant, extended release RxNorm: 8517233 1 Tablet(s) PO BID 01/07/2019 03/05/2019 Inactive doxycycline hyclate 100 mg tablet RxNorm: 0432620 1 Tablet(s) PO BID 01/01/2019 01/10/2019 Inactive cyanocobalamin (vit B-12) 1,000 mcg/mL injection solution RxNorm: 761238 1 Milliliter(s) Inj 12/27/2018 12/27/2018 Inactive baclofen 10 mg tablet RxNorm: 979894 TAKE ONE TABLET BY MOUTH THREE TIMES A D AY NEEDED 11/29/2018 03/28/2019 Inactive Request already responded t o by other means (e.g. phone or fax) baclofen 10 mg tablet RxNorm: 794865 Tablet(s) TAKE ONE TABLET BY MOUTH THREE TIMES A DAY NEEDED 11/28/2018 11/28/2018 Inactive doxycycline hyclate 100 mg tablet RxNorm: 6586237 1 Tablet(s) PO BID 11/14/2018 11/23/2018 Inactive trazodone 50 mg tablet RxNorm: 221845 TAKE ONE TABLET BY MOUTH EVERY NIGHT AT BEDTIME AND ONE-HALF TABLET BY MOUTH NEEDED 11/12/2018 12/21/2018 Inactive tizanidine 4 mg tablet RxNorm: 727417 TAKE ONE TABLET BY MOUTH THREE TIMES A D AY NEEDED 10/22/2018 02/18/2019 Inactive diclofenac sodium 75 mg tablet,delayed release RxNorm: 655610 TAKE ONE TABLET BY [facility] TWICE A DAY 10/15/2018 02/11/2019 Inactive Lasix 20 mg tablet RxNorm: 599812 1 Tablet(s) PO daily as needed 10/10/2018 11/08/2018 In active potassium chloride E R 10 mEq tablet,extended release RxNorm: 178769 1 Tablet(s) PO daily as needed to take with lasix for inceased edema 10/10/2018 11/08/2018 Inactive potassium chloride E R 10 mEq tablet,extended release RxNorm: 669133 1 Tablet(s) PO daily as needed to take with lasix for inceased edema 10/10/2018 10/09/2018 Inactive Lasix 20 mg tablet RxNorm: 952752 1 Tablet(s) PO daily as needed 10/10/2018 10/09/2018 In active doxycycline hyclate 100 mg tablet RxNorm: 0257128 1 Tablet(s) PO BID 09/27/2018 10/10/2018 Inactive Remeron 15 mg tablet RxNorm: 751884 1.5 Tablet(s) PO QPM TAKE ONE TABLET BY MOUTH EVERY NIGHT AT BEDTIME 09/18/2018 12/16/2018 Inactive baclofen 10 mg tablet RxNorm: 130385 TAKE ONE TABLET BY MOUTH THREE TIMES A D AY NEEDED 09/12/2018 11/10/2018 Inactive Remeron 15 mg tablet RxNorm: 401875 1.5 Tablet(s) PO QPM TAKE ONE TABLET BY MOUTH EVERY NIGHT AT BEDTIME 09/03/2018 09/17/2018 Inactive oxymorphone 5 mg tablet RxNorm: 115410 1 Tablet(s) PO Q6 PRN 09/03/2018 11/01/2018 Inactive morphine 30 mg table t, crush resistant, extended release RxNorm: 4949069 1 Tablet(s) PO BID 09/03/2018 11/01/2018 Inactive trazodone 50 mg tablet RxNorm: 065082 TAKE ONE TABLET BY MOUTH EVERY NIGHT AT BEDTIME AND ONE-HALF TABLET BY MOUTH NEEDED 09/03/2018 10/12/2018 Inactive tizanidine 4 mg tablet RxNorm: 537459 TAKE ONE TABLET BY MOUTH THREE TIMES A D AY NEEDED 08/20/2018 10/18/2018 Inactive Protonix 40 mg table t,delayed release RxNorm: 589724 TAKE ONE TABLET BY [facility] DAILY 08/10/2018 02/05/2019 In active Carafate 1 gram tablet RxNorm: 371393 TAKE ONE TABLET BY MOUTH BEFORE MEALS AN D AT BEDTIME NEEDED FOR HEARTBURN 07/31/2018 12/27/2018 Inactive Protonix 40 mg table t,delayed release RxNorm: 866507 1 Tablet(s) BID 07/24/2018 07/23/2018 Inactive Protonix 40 mg table t,delayed release RxNorm: 676501 1 Tablet(s) daily 07/24/2018 08/09/2018 In active liothyronine 5 mcg t ablet RxNorm: 071421 TAKE ONE TABLET BY [facility] DAILY 07/19/2018 01/09/2019 In active baclofen 10 mg tablet RxNorm: 800060 TAKE ONE TABLET BY MOUTH THREE TIMES A D AY NEEDED 07/12/2018 09/09/2018 Inactive levothyroxine 175 mc g tablet RxNorm: 607427 1 Tablet(s) PO daily 07/11/2018 03/11/2019 Inactive Vitamin D2 50,000 un it capsule RxNorm: 7511660 1 Capsule(s) PO QW 07/11/2018 10/02/2018 Inactive trazodone 50 mg tablet RxNorm: 690649 TAKE ONE TABLET BY MOUTH EVERY NIGHT AT BEDTIME AND ONE-HALF TABLET BY MOUTH NEEDED 07/11/2018 08/19/2018 Inactive Vitamin D2 50,000 un it capsule RxNorm: 6116594 1 Capsule(s) PO QW 07/11/2018 07/10/2018 Inactive morphine 30 mg table t, crush resistant, extended release RxNorm: 1755576 1 Tablet(s) PO BID 07/05/2018 09/02/2018 Inactive oxymorphone 5 mg tablet RxNorm: 982848 1 Tablet(s) PO Q6 PRN 07/05/2018 09/02/2018 Inactive bupropion HCl XL 300 mg 24 hr tablet, extended release RxNorm: 208025 TAKE ONE TABLET BY MOUTH DAILY 06/27/2018 12/23/2018 Inactive Remeron 15 mg tablet RxNorm: 472184 TAKE ONE TABLET BY MOUTH EVERY NIGHT AT BEDTIME 06/27/2018 09/02/2018 Inactive tizanidine 4 mg tablet RxNorm: 067325 TAKE ONE TABLET BY MOUTH THREE TIMES A D AY NEEDED 06/20/2018 08/18/2018 Inactive doxycycline hyclate 100 mg tablet RxNorm: 8988900 1 Tablet(s) PO BID 06/18/2018 07/01/2018 Inactive Protonix 40 mg table t,delayed release RxNorm: 951396 TAKE ONE TABLET BY [facility] DAILY 06/11/2018 07/23/2018 In active doxycycline hyclate 100 mg tablet RxNorm: 5670638 1 Tablet(s) PO BID 05/22/2018 06/04/2018 Inactive baclofen 10 mg tablet RxNorm: 009110 TAKE ONE TABLET BY MOUTH THREE TIMES A D AY NEEDED 05/14/2018 07/11/2018 Inactive diclofenac sodium 75 mg tablet,delayed release RxNorm: 054979 TAKE ONE TABLET BY [facility] TWICE A DAY 05/07/2018 10/03/2018 Inactive oxymorphone 5 mg tablet RxNorm: 372508 1 Tablet(s) PO Q6 PRN 05/04/2018 07/02/2018 Inactive morphine 30 mg table t, crush resistant, extended release RxNorm: 6097649 1 Tablet(s) PO BID 05/04/2018 07/02/2018 Inactive doxycycline hyclate 100 mg tablet RxNorm: 680154 1 Tablet(s) PO BID 04/24/2018 04/23/2018 Inactive doxycycline hyclate 100 mg tablet RxNorm: 9035063 1 Tablet(s) PO BID 04/24/2018 05/03/2018 Inactive baclofen 10 mg tablet RxNorm: 350707 TAKE ONE TABLET BY MOUTH THREE TIMES A D AY NEEDED 04/13/2018 05/12/2018 Inactive trazodone 50 mg tablet RxNorm: 600078 TAKE ONE TABLET BY MOUTH EVERY NIGHT AT BEDTIME AND ONE-HALF TABLET BY MOUTH NEEDED 04/09/2018 06/07/2018 Inactive Questran 4 gram powd er for susp in a packet RxNorm: 412553 1 packet PO BID 04/06/2018 06/04/2018 In active Questran 4 gram powd er for susp in a packet RxNorm: 052497 1 packet PO BID 04/06/2018 04/05/2018 In active Carafate 1 gram tablet RxNorm: 213701 1 Tablet(s) PO AC & HS as needed for hea rtburn 03/28/2018 04/26/2018 Inactive baclofen 10 mg tablet RxNorm: 227645 TAKE ONE TABLET BY MOUTH THREE TIMES A D AY NEEDED 03/16/2018 04/12/2018 Inactive Protonix 40 mg table t,delayed release RxNorm: 966344 TAKE ONE TABLET BY [facility] DAILY 03/16/2018 06/10/2018 In active oxymorphone 5 mg tablet RxNorm: 476313 1 Tablet(s) PO Q6 PRN 02/27/2018 04/27/2018 Inactive morphine 30 mg table t, crush resistant, extended release RxNorm: 8565542 1 Tablet(s) PO BID 02/27/2018 04/27/2018 Inactive Belviq XR 20 mg tabl et,extended release RxNorm: 7485203 1 Tablet(s) PO daily 02/27/2018 01/06/2019 In active levothyroxine 100 mc g tablet RxNorm: 834460 1 Tablet(s) PO daily 02/27/2018 07/10/2018 Inactive take with 88mcg to = 188mcg daily levothyroxine 88 mcg tablet RxNorm: 789884 1 Tablet(s) PO daily 02/27/2018 07/10/2018 Inactive take with 100mcg to = 188mcg daily morphine 30 mg table t, crush resistant, extended release RxNorm: 0044292 1 Tablet(s) PO BID 02/14/2018 02/26/2018 Inactive levothyroxine 200 mc g tablet RxNorm: 100615 Tablet(s) TAKE ONE TA BLET BY MOUTH DAILY 01/18/2018 02/26/2018 Inactive Updated script baclofen 10 mg tablet RxNorm: 601136 Tablet(s) TAKE ONE TABLET BY MOUTH THREE TIMES A DAY NEEDED 01/15/2018 02/13/2018 Inactive morphine 30 mg table t, crush resistant, extended release RxNorm: 8441387 1 Tablet(s) PO BID 01/15/2018 02/13/2018 Inactive tizanidine 4 mg tablet RxNorm: 695471 TAKE ONE TABLET BY MOUTH THREE TIMES A D AY NEEDED 01/02/2018 04/01/2018 Inactive Request already responded t o by other means (e.g. phone or fax) bupropion HCl XL 300 mg 24 hr tablet, extended release RxNorm: 211297 TAKE ONE TABLET BY MOUTH DAILY 12/29/2017 06/26/2018 Inactive Tamiflu 75 mg capsule RxNorm: 253112 1 Capsule(s) PO BID 12/27/2017 12/31/2017 Inactive Tamiflu 75 mg capsule RxNorm: 209389 1 Capsule(s) PO BID 12/27/2017 12/26/2017 Inactive tizanidine 4 mg tablet RxNorm: 366383 1 Tablet(s) PO TID as needed 12/25/2017 01/01/2018 Inactive levothyroxine 175 mc g tablet RxNorm: 859836 1 Tablet(s) PO daily 12/14/2017 12/13/2017 Inactive levothyroxine 175 mc g tablet RxNorm: 311559 1 Tablet(s) PO daily 12/14/2017 01/17/2018 Inactive baclofen 10 mg tablet RxNorm: 411489 Tablet(s) TAKE ONE TABLET BY MOUTH THREE TIMES A DAY NEEDED 12/13/2017 01/11/2018 Inactive baclofen 10 mg tablet RxNorm: 500470 TAKE ONE TABLET BY MOUTH THREE TIMES A D AY NEEDED 12/13/2017 12/12/2017 Inactive morphine 30 mg table t, crush resistant, extended release RxNorm: 8428267 1 Tablet(s) PO BID 12/12/2017 01/14/2018 Inactive clonazepam 1 mg tablet RxNorm: 632540 1/2 Tablet(s) PO daily 12/01/2017 08/27/2018 Inactive trazodone 50 mg tablet RxNorm: 221095 1/2 to 1 Tablet(s) QHS as needed 12/01/2017 03/30/2018 In active Opana ER 15 mg table t, crush resistant, extended release RxNorm: 890969 1 Tablet(s) PO Q12H 12/01/2017 02/13/2018 Inactive oxymorphone 5 mg tablet RxNorm: 905690 1 Tablet(s) PO Q6 PRN 12/01/2017 02/26/2018 Inactive Remeron 15 mg tablet RxNorm: 719962 Tablet(s) TAKE ONE TABLET BY MOUTH EVERY NIGHT AT BEDTIME 12/01/2017 02/28/2018 Inactive trazodone 50 mg tablet RxNorm: 449055 1/2 Tablet(s) as needed 1 Tablet(s) PO Q HS 12/01/2017 11/30/2017 In active clonazepam 1 mg tablet RxNorm: 928924 1/2 Tablet(s) PO daily 11/30/2017 11/30/2017 Inactive Remeron 15 mg tablet RxNorm: 014226 TAKE ONE TABLET BY MOUTH EVERY NIGHT AT BEDTIME 11/29/2017 11/30/2017 Inactive levothyroxine 200 mc g tablet RxNorm: 524097 TAKE ONE TABLET BY [facility] DAILY 11/15/2017 12/13/2017 In active baclofen 10 mg tablet RxNorm: 701799 TAKE ONE TABLET BY MOUTH THREE TIMES A D AY NEEDED 11/07/2017 12/06/2017 Inactive diclofenac sodium 75 mg tablet,delayed release RxNorm: 120965 1 Tablet(s) PO BID 11/07/2017 05/05/2018 In active liothyronine 5 mcg t ablet RxNorm: 158422 TAKE ONE TABLET BY [facility] DAILY 10/27/2017 07/18/2018 In active tizanidine 4 mg tablet RxNorm: 245487 1 Tablet(s) PO TID as needed 10/18/2017 12/16/2017 Inactive oxymorphone 5 mg tablet RxNorm: 553247 1 Tablet(s) PO Q6 PRN 09/29/2017 11/27/2017 Inactive morphine 30 mg table t, crush resistant, extended release RxNorm: 5432994 1 Tablet(s) PO BID 09/29/2017 11/28/2017 Inactive baclofen 10 mg tablet RxNorm: 117835 1 Tablet(s) PO TID as needed 09/11/2017 10/10/2017 Inactive baclofen 10 mg tablet RxNorm: 077064 1 Tablet(s) PO TID as needed 08/11/2017 09/09/2017 Inactive Opana ER 15 mg table t, crush resistant, extended release RxNorm: 810144 1 Tablet(s) PO Q12H 08/11/2017 09/28/2017 Inactive Remeron 15 mg tablet RxNorm: 566779 TAKE ONE TABLET BY MOUTH EVERY NIGHT AT BEDTIME 08/02/2017 10/30/2017 Inactive oxymorphone 5 mg tablet RxNorm: 815266 1 Tablet(s) PO Q6 PRN 08/02/2017 09/28/2017 Inactive Opana ER 5 mg tablet , crush resistant, extended release RxNorm: 528624 1 Tablet(s) PO Q6 PRN 08/01/2017 08/10/2017 Inactive Protonix 40 mg table t,delayed release RxNorm: 277025 TAKE ONE TABLET BY [facility] DAILY 06/26/2017 06/25/2017 In active Protonix 40 mg table t,delayed release RxNorm: 108701 TAKE ONE TABLET BY [facility] DAILY 06/26/2017 02/05/2019 In active bupropion HCl XL 300 mg 24 hr tablet, extended release RxNorm: 537226 TAKE ONE TABLET BY MOUTH DAILY 06/13/2017 12/09/2017 Inactive tizanidine 4 mg tablet RxNorm: 230617 1 Tablet(s) PO TID as needed 06/13/2017 06/12/2017 Inactive tizanidine 4 mg tablet RxNorm: 227076 1 Tablet(s) PO TID as needed 06/13/2017 09/10/2017 Inactive baclofen 10 mg tablet RxNorm: 591284 1 Tablet(s) PO TID as needed 06/13/2017 07/12/2017 Inactive Opana ER 15 mg table t, crush resistant, extended release RxNorm: 240412 1 Tablet(s) PO Q12H 06/09/2017 08/07/2017 Inactive Opana ER 5 mg tablet , crush resistant, extended release RxNorm: 122833 1 Tablet(s) PO Q6 PRN 06/09/2017 07/31/2017 Inactive diclofenac sodium 75 mg tablet,delayed release RxNorm: 813853 1 Tablet(s) PO BID 06/09/2017 09/06/2017 In active clonazepam 1 mg tablet RxNorm: 877870 1/2 Tablet(s) PO daily 05/24/2017 11/18/2017 Inactive bupropion HCl XL 300 mg 24 hr tablet, extended release RxNorm: 666624 TAKE ONE TABLET BY MOUTH DAILY 03/16/2017 06/12/2017 Inactive clonazepam 1 mg tablet RxNorm: 555820 1/2 Tablet(s) PO daily 02/22/2017 05/18/2017 Inactive Remeron 15 mg tablet RxNorm: 266059 TAKE ONE TABLET BY MOUTH EVERY NIGHT AT BEDTIME 02/06/2017 2017 Inactive Protonix 40 mg table t,delayed release RxNorm: 685979 TAKE ONE TABLET BY [facility] DAILY 01/26/2017 06/24/2017 In active mupirocin 2 % topica l ointment RxNorm: 713067 1 Application TOP BID 01/12/2017 01/18/2017 Inactive Bactrim DS 800 mg-16 0 mg tablet RxNorm: 917455 1 Tablet(s) PO BID 11/17/2016 11/23/2016 Inactive mupirocin 2 % topica l ointment RxNorm: 097483 1 Application TOP BID 11/10/2016 11/16/2016 Inactive Bactrim DS 800 mg-16 0 mg tablet RxNorm: 652767 1 Tablet(s) PO BID 11/10/2016 11/16/2016 Inactive bupropion HCl XL 300 mg 24 hr tablet, extended release RxNorm: 697323 TAKE ONE TABLET BY MOUTH DAILY 11/07/2016 03/06/2017 Inactive liothyronine 5 mcg t ablet RxNorm: 710340 1 Tablet(s) PO daily 11/01/2016 10/26/2017 Inactive levothyroxine 200 mc g tablet RxNorm: 760505 1 Tablet(s) PO daily 10/04/2016 09/28/2017 Inactive clonazepam 1 mg tablet RxNorm: 358564 1/2 Tablet(s) PO daily 09/21/2016 03/18/2017 Inactive clonazepam 1 mg tablet RxNorm: 439237 1/2 Tablet(s) PO daily 09/16/2016 09/20/2016 Inactive Abilify 2 mg tablet RxNorm: 552787 1 Tablet(s) PO daily 09/16/2016 10/13/2016 Inactive trazodone 50 mg tablet RxNorm: 741735 1/2 Tablet(s) as needed 1 Tablet(s) PO Q HS 09/16/2016 01/13/2017 In active morphine 15 mg immed iate release tablet RxNorm: 295284 1 Tablet(s) PO Q6 PRN 09/16/2016 04/06/2017 In active baclofen 10 mg tablet RxNorm: 661869 1 Tablet(s) PO TID as needed 09/16/2016 06/12/2017 Inactive MS Contin 30 mg tabl et,extended release RxNorm: 997053 1 Tablet(s) PO Q12H 09/16/2016 04/06/2017 In active Remeron 15 mg tablet RxNorm: 882647 1 Tablet(s) PO QHS 08/19/2016 09/15/2016 Inactive levothyroxine 200 mc g tablet RxNorm: 062255 1 Tablet(s) PO daily 08/11/2016 10/03/2016 Inactive bupropion HCl XL 300 mg 24 hr tablet, extended release RxNorm: 057556 TAKE ONE TABLET BY MOUTH DAILY 08/11/2016 11/06/2016 Inactive Protonix 40 mg table t,delayed release RxNorm: 008945 1 Tablet(s) PO daily 06/17/2016 12/13/2016 In active bupropion HCl XL 300 mg 24 hr tablet, extended release RxNorm: 910699 1 Tablet(s) PO daily 05/12/2016 07/10/2016 Inactive bupropion HCl XL 300 mg 24 hr tablet, extended release RxNorm: 770635 1 Tablet(s) PO daily 05/12/2016 05/11/2016 Inactive Cialis 20 mg tablet RxNorm: 286436 1 Tablet(s) PO PRN 02/16/2016 No Stop Date Active not more than 1 tab in 24 hours morphine ER 10 mg ca psule,extended release pellets RxNorm: 147888 1 Tablet(s) PO Q6 as needed 02/16/2016 11/16/2016 Inactive clonazepam 1 mg tablet RxNorm: 625303 1/2 Tablet(s) PO BID 02/16/2016 09/15/2016 Inactive trazodone 50 mg tablet RxNorm: 516842 1/2 Tablet(s) as needed 1 Tablet(s) PO Q HS 02/16/2016 08/18/2016 In active trazodone 50 mg tablet RxNorm: 168640 1/2 Tablet(s) 1 Tablet(s) PO QHS 11/17/2015 02/15/2016 In active trazodone 50 mg tablet RxNorm: 900409 1 Tablet(s) PO QHS 10/19/2015 11/16/2015 Inactive levothyroxine 200 mc g tablet RxNorm: 158526 1 Tablet(s) PO daily 10/02/2015 08/10/2016 Inactive Wellbutrin XL 150 mg 24 hr tablet, extended release RxNorm: 140122 1 Tablet(s) PO daily 10/02/2015 05/11/2016 Inactive levothyroxine 200 mc g tablet RxNorm: 028527 1 Tablet(s) PO daily 09/30/2015 10/01/2015 Inactive Wellbutrin XL 150 mg 24 hr tablet, extended release RxNorm: 444798 1 Tablet(s) PO daily 09/30/2015 10/01/2015 Inactive trazodone 50 mg tablet RxNorm: 108155 1 Tablet(s) PO QHS 09/11/2015 10/10/2015 Inactive trazodone 50 mg tablet RxNorm: 002409 1 Tablet(s) PO QHS 09/11/2015 09/10/2015 Inactive Cymbalta 30 mg capsu le,delayed release RxNorm: 821665 1 Capsule(s) PO daily 09/07/2015 11/16/2015 In active Cymbalta 60 mg capsu le,delayed release RxNorm: 357834 1 Capsule(s) PO daily 08/31/2015 08/30/2015 In active Cymbalta 30 mg capsu le,delayed release RxNorm: 255454 1 Capsule(s) PO daily take with 60mg to make 90 mg daily 08/31/2015 09/06/2015 Inactive Cymbalta 30 mg capsu le,delayed release RxNorm: 198256 1 Capsule(s) PO daily take with 60mg to make 90 mg daily 08/31/2015 08/30/2015 Inactive Cymbalta 60 mg capsu le,delayed release RxNorm: 127716 1 Capsule(s) PO daily x 7 days and then increase to 90mg daily 08/31/2015 09/07/2015 Inactive levothyroxine 200 mc g tablet RxNorm: 379480 1 Tablet(s) PO daily 08/14/2015 09/29/2015 Inactive Wellbutrin XL 150 mg 24 hr tablet, extended release RxNorm: 359296 1 Tablet(s) PO daily 07/14/2015 09/29/2015 Inactive Cialis 20 mg tablet RxNorm: 180180 1 Tablet(s) PO PRN 07/02/2015 02/15/2016 Inactive not more than 1 tab in 24 hours liothyronine 5 mcg t ablet RxNorm: 785016 1 Tablet(s) PO daily 2015 05/29/2016 Inactive clonazepam 1 mg tablet RxNorm: 234022 1 Tablet(s) PO TID 2015 02/15/2016 Inactive minocycline 50 mg ta blet RxNorm: 131664 1 Tablet(s) PO daily 2015 05/11/2016 Inactive Wellbutrin XL 150 mg 24 hr tablet, extended release RxNorm: 320426 1 Tablet(s) PO daily 04/23/2015 07/13/2015 Inactive levothyroxine 200 mc g tablet RxNorm: 542555 1 Tablet(s) PO daily 04/23/2015 08/13/2015 Inactive Aleve oral RxNorm: 954811 oral No Start Date Active Tylenol 500 mg RxNorm: oral No Start Date Active morphine ER 15 mg ta blet,extended release RxNorm: 998078 oral No Start Date 11/16/2016 Inactive Trazadone 25 mg RxNorm: 2 PO daily No Start Date 09/11/2015 Inactive diclofenac oral RxNorm: 3355 oral No Start Date 05/04/2018 Inactive clonazepam 1 mg tablet RxNorm: 710676 1 Tablet(s) PO QHS No Start Date 06/04/2015 Inactive Wellbutrin XL 150 mg 24 hr tablet, extended release RxNorm: 542595 1 Tablet(s) PO daily No Start Date 04/22/2015 Inactive minocycline 50 mg ta blet RxNorm: 594908 1 Tablet(s) PO daily No Start Date 06/04/2015 Inactive methadone 5 mg tablet RxNorm: 613108 1 Tablet(s) PO Q8 No Start Date 02/15/2016 Inactive Protonix 40 mg table t,delayed release RxNorm: 210758 Tablet(s) PO daily No Start Date 06/16/2016 Inactive Opana ER 15 mg table t, crush resistant, extended release RxNorm: 789550 1 Tablet(s) PO Q12H No Start Date 06/08/2017 Inactive MS Contin 30 mg tabl et,extended release RxNorm: 648163 1 Tablet(s) PO Q12H No Start Date 02/15/2016 Inactive Opana ER 15 mg table t, crush resistant, extended release RxNorm: 528565 1 Tablet(s) PO BID No Start Date 09/15/2016 Inactive liothyronine 5 mcg t ablet RxNorm: 937791 1 Tablet(s) PO daily No Start Date 06/04/2015 Inactive Cialis 20 mg tablet RxNorm: 290101 1 Tablet(s) PO PRN No Start Date 07/01/2015 Inactive not more than 1 tab in 24 hours baclofen 10 mg tablet RxNorm: 618558 1 Tablet(s) PO TID as needed No Start Date 05/11/2016 Inactive morphine 15 mg immed iate release tablet RxNorm: 436311 1 Tablet(s) PO Q6 PRN as needed No Start Date 02/15/2016 Inactive levothyroxine 200 mc g tablet RxNorm: 940681 1 Tablet(s) PO daily No Start Date 04/22/2015 Inactive Opana ER 5 mg tablet , crush resistant, extended release RxNorm: 522512 1 Tablet(s) PO Q6 No Start Date 06/08/2017 Inactive Medication Administered Medication Codes Instruc tions Start Date Status cyanocobalamin (vit B-12) 1,000 mcg/mL injection solut ion RxNorm: 039535 1Milliliter 12/27/2018 No longer Active Immunizations No [...] 29.4 pg 01/07/2019 Cbc With Differential Ord2 [place]% 10.9 % 01/07/2019 Cbc With Differential Ord2 [...] 1.77 K/ul 01/07/2019 Cbc With Differential Ord2 [place] ABS# 0.5 K/ul 01/07/2019 Cbc With Differential Ord2 Eos ABS# 0.1 K/ul 01/07/2019 Cbc With Differential Ord2 Baso ABS# 0.0 K/ul 01/07/2019 Free T4 Fvp193 FREE T4 2.05 ng/dL 01/07/2019 Lipid Ord30 CHOL 189 mg/dL 01/07/2019 Lipid Ord30 HDL 58.0 mg/dl 01/07/2019 Lipid Ord30 TRIG 155 mg/dL 01/07/2019 Lipid Ord30 LDL 100 mg/dL 01/07/2019 Lipid Ord30 C/HDL 3.3 Ratio 01/07/2019 Comp Metabolic Tiq154 NA 137 mEq/L 01/07/2019 Comp Metabolic Wlk910 K 4.2 mEq/L 01/07/2019 Comp Metabolic Hkg206 CL 104 mEq/L 01/07/2019 Comp Metabolic Rkm261 CO2 26.0 mEq/L 01/07/2019 Comp Metabolic Fhj695 AN ION GAP 11 01/07/2019 Comp Metabolic Mvl189 GL UCOSE 64 mg/dL 01/07/2019 Comp Metabolic Dun996 Cr eat 0.8 mg/dL 01/07/2019 Comp Metabolic Pso631 eG FR 110 ml/min/1.73m2 12/28 Comp Metabolic Mag769 BUN 7 mg/dL 01/07/2019 Comp Metabolic Djk649 B/ C Ratio 9.0 Ratio 01/07/2019 Comp Metabolic Jcm413 CA LCIUM 9.7 mg/dL 01/07/2019 Comp Metabolic Rzc569 AL K PHOS 64 U/L 01/07/2019 Comp Metabolic Jeo146 T(SGOT) 32 U/L 01/07/2019 Comp Metabolic Lxn955 AL T(SGPT) 44 U/L 01/07/2019 Comp Metabolic Xfj548 BI LI T 0.3 mg/dL 01/07/2019 Comp Metabolic Plr953 AL BUMIN 4.3 g/dL 01/07/2019 Comp Metabolic Mtg716 TP RO 6.5 g/dL 01/07/2019 Comp Metabolic Uvs287 GL OB 2.2 g/dL 01/07/2019 Comp Metabolic Gfe592 A/ G Ratio 2.0 Ratio 01/07/2019 Comp Metabolic Hay539 Os mo 270 mOsmo 01/07/2019 Free T4 Mhy348 FREE T4 1.54 ng/dL 11/05/2018 Vitamin D 25 Oh [id number] VITAMIN D, 25 HYDROXY 40.65 ng/mL 11/05/2018 Tsh Ord6 TSH (3rd IS) 0.02 uIU/mL 11/05/2018 Vitamin D 25 Oh [id number] VITAMIN D, 25 HYDROXY 30.96 ng/mL 07/06/2018 Comp Metabolic Yld180 NA 141 mEq/L 07/06/2018 Comp Metabolic Dpg847 K 4.2 mEq/L 07/06/2018 Comp Metabolic Ioc110 CL 103 mEq/L 07/06/2018 Comp Metabolic Ndo204 CO2 29.0 mEq/L 07/06/2018 Comp Metabolic Bqd409 AN ION GAP 13 07/06/2018 Comp Metabolic Rta324 GL UCOSE 105 mg/dL 07/06/2018 Comp Metabolic Olq239 Cr eat 0.8 mg/dL 07/06/2018 Comp Metabolic Pjw854 eG FR 101 ml/min/1.73m2 06/27 Comp Metabolic Usx227 BUN 7 mg/dL 07/06/2018 Comp Metabolic Ohh059 B/ C Ratio 8.3 Ratio 07/06/2018 Comp Metabolic Lxm507 CA LCIUM 9.9 mg/dL 07/06/2018 Comp Metabolic Can252 AL K PHOS 65 U/L 07/06/2018 Comp Metabolic Izi494 T(SGOT) 21 U/L 07/06/2018 Comp Metabolic Whb461 AL T(SGPT) 31 U/L 07/06/2018 Comp Metabolic Wtm634 BI LI T 0.3 mg/dL 07/06/2018 Comp Metabolic Vws456 AL BUMIN 4.3 g/dL 07/06/2018 Comp Metabolic Vel070 TP RO 6.4 g/dL 07/06/2018 Comp Metabolic Gpk009 GL OB 2.1 g/dL 07/06/2018 Comp Metabolic Ihc162 A/ G Ratio 2.0 Ratio 07/06/2018 Comp Metabolic Csm926 Os mo 280 mOsmo 07/06/2018 Cbc With [...] 29.3 pg 07/06/2018 Cbc With Differential Ord2 [place]% 10.5 % 07/06/2018 Cbc With Differential Ord2 [...] 1.89 K/ul 07/06/2018 Cbc With Differential Ord2 [place] ABS# 0.5 K/ul 07/06/2018 Cbc With Differential Ord2 Eos ABS# 0.3 K/ul 07/06/2018 Cbc With Differential Ord2 Baso ABS# 0.0 K/ul 07/06/2018 Total Psa Ord10 PSA 0.34 ng/mL 07/06/2018 Tsh Ord6 TSH (3rd IS) 0.02 uIU/mL 07/06/2018 Testosterone Wub814 Testo 400.6 ng/dL 07/06/2018 Free T4 Iue702 FREE T4 1.48 ng/dL 07/06/2018 [place] Spotted Fever Igg/Igm 20019 3 [place] SPOTTED FEVER IGM EIA . 04/04/2018 [place] Spotted Fever Igg/Igm 05491 3 RMSF, IGM 0.24 index 04/04/2018 [place] Spotted Fever Igg/Igm 37695 3 PARTHA MT SPOTTED FEVER IGG EIA FLEX . 04/04/2018 [place] Spotted Fever Igg/Igm 13615 3 RMSF, IGG SCREEN-FLEX Equivocal 04/04/2018 [place]tn Spot'D Fev Igg [id number] RMSF, IGG- TITER IFA <1:64 04/04/2018 Ehrlichia Chaffeensis Antibody Igg [id number] EHRLICHIA CHAFFEENSIS IGG <1:64 04/02/2018 Ehrlichia Chaffeensis Antibody Igm [id number] EHRLICHIA CHAFFEENSIS IGM < 1:16 04/02/2018 [facility]ymes Disease Total Antibodies With Western Blot Refle x [id number] B. BURGDORFERI, IGG/IGM 0.23 03/30/2018 [facility]ym[facility] Disease Total Antibodies With Western Blot Refle x [id number] 03/30/2018 Cbc With Differential Ord2 WBC 5.04 [...] 28.7 pg 03/28/2018 Cbc With Differential Ord2 [place]% 16.1 % 03/28/2018 Cbc With Differential Ord2 [...] 1.37 K/ul 03/28/2018 Cbc With Differential Ord2 [place] ABS# 0.8 K/ul 03/28/2018 Cbc With Differential Ord2 Eos ABS# 0.1 K/ul 03/28/2018 Cbc With Differential Ord2 Baso ABS# 0.0 K/ul 03/28/2018 Comp Metabolic Xhp861 NA 136 mEq/L 02/16/2018 Comp Metabolic Qxm444 K 3.9 mEq/L 02/16/2018 Comp Metabolic Bol465 CL 103 mEq/L 02/16/2018 Comp Metabolic Evg867 CO2 23.0 mEq/L 02/16/2018 Comp Metabolic Tex707 AN ION GAP 14 02/16/2018 Comp Metabolic Xmx705 GL UCOSE 133 mg/dL 02/16/2018 Comp Metabolic Hst149 Cr eat 0.8 mg/dL 02/16/2018 Comp Metabolic Man077 eG FR 103 ml/min/1.73m2 01/26 Comp Metabolic Hjq461 BUN 7 mg/dL 02/16/2018 Comp Metabolic Eur033 B/ C Ratio 8.4 Ratio 02/16/2018 Comp Metabolic Xun199 CA LCIUM 9.3 mg/dL 02/16/2018 Comp Metabolic Ssn636 AL K PHOS 71 U/L 02/16/2018 Comp Metabolic Lla192 T(SGOT) 42 U/L 02/16/2018 Comp Metabolic Uzt351 AL T(SGPT) 69 U/L 02/16/2018 Comp Metabolic Grp314 BI LI T 0.3 mg/dL 02/16/2018 Comp Metabolic Ocu361 AL BUMIN 4.1 g/dL 02/16/2018 Comp Metabolic Wos506 TP RO 6.3 g/dL 02/16/2018 Comp Metabolic Gyf659 GL OB 2.2 g/dL 02/16/2018 Comp Metabolic Dki052 A/ G Ratio 1.8 Ratio 02/16/2018 Comp Metabolic Tni629 Os mo 272 mOsmo 02/16/2018 Free T4 Sin761 FREE T4 1.85 ng/dL 02/16/2018 Ferritin Ord22 FERRITIN 161.7 ng/mL 02/16/2018 Tsh Ord6 TSH (3rd IS) 0.01 uIU/mL 02/16/2018 Test(s) Not Perfromed [id number] Test(s) Not Performed Test(s) Not Performed. See Below: 02/16/2018 Test(s) Not Perfromed [id number] TEST NAME CBC 02/16/2018 Test(s) Not Perfromed [id number] Rejection Reason No Suitable Specimen Receive d 02/16/2018 Test(s) Not Perfromed [id number] COMMENT Please Recollect Sample 02/16/2018 Test(s) Not Perfromed [id number] [facility] Fernando Goyal 02/16/2018 Tibc Ord40 Iron 138 [...] 26.4 pg 01/05/2018 Cbc With Differential Ord2 [place]% 11.9 % 01/05/2018 Cbc With Differential Ord2 [...] 2.08 K/ul 01/05/2018 Cbc With Differential Ord2 [place] ABS# 0.6 K/ul 01/05/2018 Cbc With Differential Ord2 Eos ABS# 0.2 K/ul 01/05/2018 Cbc With Differential Ord2 Baso ABS# 0.0 K/ul 01/05/2018 Ferritin Ord22 FERRITIN 5.7 ng/mL 12/06/2017 Tibc Ord40 Iron 33 ug/dl 12/06/2017 Tibc Ord40 UIBC 431 ug/dL 12/06/2017 Tibc Ord40 TIBC 464 ug/dL 12/06/2017 Tibc Ord40 Fe-%Sat 7.1 % 12/06/2017 Free T4 Mpg586 FREE T4 1.82 ng/dL 12/01/2017 Tsh Ord6 [...] 27.0 pg 12/01/2017 Cbc With Differential Ord2 [place]% 10.6 % 12/01/2017 Cbc With Differential Ord2 [...] 1.92 K/ul 12/01/2017 Cbc With Differential Ord2 [place] ABS# 0.4 K/ul 12/01/2017 Cbc With Differential Ord2 Eos ABS# 0.2 K/ul 12/01/2017 Cbc With Differential Ord2 Baso ABS# 0.0 K/ul 12/01/2017 Comp Metabolic Xbo536 NA 136 mEq/L 12/01/2017 Comp Metabolic Bzo208 K 4.6 mEq/L 12/01/2017 Comp Metabolic Zzy552 CL 102 mEq/L 12/01/2017 Comp Metabolic Yww747 CO2 27.0 mEq/L 12/01/2017 Comp Metabolic Ntj282 AN ION GAP 12 12/01/2017 Comp Metabolic Fpm706 GL UCOSE 90 mg/dL 12/01/2017 Comp Metabolic Chc309 Cr eat 0.7 mg/dL 12/01/2017 Comp Metabolic Xdx989 eG FR 123 ml/min/1.73m2 03/2018 Comp Metabolic Ggl543 BUN 4 mg/dL 12/01/2017 Comp Metabolic Soh469 B/ C Ratio 5.6 Ratio 12/01/2017 Comp Metabolic Mpf473 CA LCIUM 9.0 mg/dL 12/01/2017 Comp Metabolic Rot536 AL K PHOS 67 U/L 12/01/2017 Comp Metabolic Zhg347 T(SGOT) 30 U/L 12/01/2017 Comp Metabolic Qsb826 AL T(SGPT) 29 U/L 12/01/2017 Comp Metabolic Rtk483 BI LI T 0.3 mg/dL 12/01/2017 Comp Metabolic Sed278 AL BUMIN 4.1 g/dL 12/01/2017 Comp Metabolic Ljv451 TP RO 6.1 g/dL 12/01/2017 Comp Metabolic Msi191 GL OB 2.0 g/dL 12/01/2017 Comp Metabolic Bfr249 A/ G Ratio 2.0 Ratio 12/01/2017 Comp Metabolic Ege092 Os mo 268 mOsmo 12/01/2017 Comp Metabolic Pvb278 NA 136 mEq/L 02/16/2016 Comp Metabolic Lgh559 K 4.2 mEq/L 02/16/2016 Comp Metabolic Fwq545 CL 104 mEq/L 02/16/2016 Comp Metabolic Vye754 CO2 20.0 mEq/L 02/16/2016 Comp Metabolic Hfn970 AN ION GAP 16 02/16/2016 Comp Metabolic Sli577 GL UCOSE 71 mg/dL 02/16/2016 Comp Metabolic Flx761 Cr eat 0.8 mg/dL 02/16/2016 Comp Metabolic Swt683 eG FR 113 ml/min/1.73m2 01/26 Comp Metabolic Xqv447 BUN 7 mg/dL 02/16/2016 Comp Metabolic Qlw411 B/ C Ratio 9.1 Ratio 02/16/2016 Comp Metabolic Tqu108 CA LCIUM 9.4 mg/dL 02/16/2016 Comp Metabolic Hjo677 AL K PHOS 57 U/L 02/16/2016 Comp Metabolic Wmd566 T(SGOT) 30 U/L 02/16/2016 Comp Metabolic Umk914 AL T(SGPT) 27 U/L 02/16/2016 Comp Metabolic Qxe999 BI LI T 0.2 mg/dL 02/16/2016 Comp Metabolic Hqw614 AL BUMIN 4.4 g/dL 02/16/2016 Comp Metabolic Ogh107 TP RO 6.5 g/dL 02/16/2016 Comp Metabolic Aco465 GL OB 2.1 g/dL 02/16/2016 Comp Metabolic Ter924 A/ G Ratio 2.1 Ratio 02/16/2016 Comp Metabolic Hkv208 Os mo 268 mOsmo 02/16/2016 Free T4 Zzg364 FREE T4 1.20 ng/dL 02/16/2016 Cbc With [...] 30.2 pg 02/16/2016 Cbc With Differential Ord2 [place]% 9.6 % 02/16/2016 Cbc With Differential Ord2 [...] 1.50 K/ul 02/16/2016 Cbc With Differential Ord2 [place] ABS# 0.5 K/ul 02/16/2016 Cbc With Differential [...] Respiratory dyspnea on exertion 05/04/2018 Respiratory snoring 0606/2018 Gastrointestinal No constipation 05/04/2018 Gastrointestinal No diarrhea [...] 08/28/2015 Constitutional No fever 08/28/2015 Psychiatric anxiety 10/0 12/2014 Psychiatric depression 1 Hematologic/Lymphatic No abnormal [...] lips 12/27/2018 None Full Exam - General 1995 Ears/Nose/Throat [...] Procedure Codes Date THER/PROPH/DIAG INJ SC/IM CPT-4: 99046 12/27/2018 VITAMIN B12 INJECTION CPT-4: J3420 12/27/2018 PPPS, SUBSEQ VISIT CPT- 4: G0439 09/17/2018 Vital Signs Date Vital 05/14/2019 Blood Pressure 1: 120/70 Code: 8480-6 BMI: 36.2 Code: 31870-7 Heart Rate 1: 65 bpm Height: 5'6" SpO2: 98% Weight: 224 lbs 03/12/2019 Blood Pressure 1: 130/76 Code: 8480-6 BMI: 38.6 Code: 38204-7 Heart Rate 1: 83 bpm Height: 5'6" SpO2: 99% Weight: 239 lbs 01/07/2019 Blood Pressure 1: 124/80 Code: 8480-6 BMI: 38.3 Code: 09407-0 Heart Rate 1: 88 bpm Height: 5'6" SpO2: 97% Weight: 237 lbs 12/27/2018 Blood Pressure 1: 122/80 Code: 8480-6 BMI: 38.6 Code: 83611-0 Heart Rate 1: 72 bpm Height: 5'6" SpO2: 98% Weight: 239 lbs 11/05/2018 Blood Pressure 1: 122/64 Code: 8480-6 BMI: 37.4 Code: 93758-9 Heart Rate 1: 66 bpm Height: 5'6" SpO2: 97% Weight: 232 lbs 09/27/2018 Blood Pressure 1: 92/66 Code: 8480-6 BMI: 37.9 Code: 44613-2 Heart Rate 1: 66 bpm Height: 5'6" SpO2: 98% Weight: 235 lbs 09/17/2018 Blood Pressure 1: 110/72 Code: 8480-6 BMI: 38.3 Code: 01266-2 Heart Rate 1: 77 bpm Height: 5'6" SpO2: 95% Waist Measure (cm): 102 cm Weight: 237 lbs 09/03/2018 Blood Pressure 1: 122/68 Code: 8480-6 BMI: 37.6 Code: 31164-6 Heart Rate 1: 78 bpm Height: 5'6" SpO2: 97% Weight: 233 lbs 07/05/2018 Blood Pressure 1: 94/62 Code: 8480-6 BMI: 36.8 Code: 88662-6 Heart Rate 1: 88 bpm Height: 5'6" SpO2: 99% Weight: 228 lbs 05/04/2018 Blood Pressure 1: 11080 Code: 8480-6 BMI: 35.5 Code: 42654-2 Heart Rate 1: 80 bpm Height: 5'6" SpO2: 99% Weight: 220 lbs 03/28/2018 Blood Pressure 1: 11072 Code: 8480-6 BMI: 35.0 Code: 59881-2 Heart Rate 1: 80 bpm Height: 5'6" SpO2: 98% Temperature: 36.2 (C ) / 97.1 (F) Weight: 217 lbs 02/27/2018 Blood Pressure 1: 136/76 Code: 8480-6 BMI: 36.0 Code: 67340-6 Heart Rate 1: 80 bpm Height: 5'6" SpO2: 98% Weight: 223 lbs 12/01/2017 Blood Pressure 1: 132/72 Code: 8480-6 BMI: 33.4 Code: 85282-1 Heart Rate 1: 82 bpm Height: 5'6" SpO2: 97% Weight: 207 lbs 09/29/2017 Blood Pressure 1: 124/68 Code: 8480-6 BMI: 32.1 Code: 81064-8 Heart Rate 1: 77 bpm Height: 5'6" SpO2: 98% Weight: 199 lbs 08/11/2017 Blood Pressure 1: 154/82 Code: 8480-6 BMI: 31.6 Code: 67637-9 Heart Rate 1: 75 bpm Height: 5'6" SpO2: 98% Weight: 196 lbs 06/09/2017 Blood Pressure 1: 148/88 Code: 8480-6 BMI: 28.6 Code: 68180-9 Heart Rate 1: 88 bpm Height: 5'6" SpO2: 98% Weight: 177 lbs 04/07/2017 Blood Pressure 1: 140/84 Code: 8480-6 BMI: 30.3 Code: 84509-5 Heart Rate 1: 81 bpm Height: 5'6" SpO2: 99% Weight: 188 lbs 11/17/2016 Blood Pressure 1: 130/72 Code: 8480-6 Heart Rate 1: 63 bpm Height: SpO2: 93% Weight: 11/10/2016 Blood Pressure 1: 128/86 Code: 8480-6 BMI: 30.3 Code: 03373-9 Heart Rate 1: 84 bpm Height: 5'6" SpO2: 96% Weight: 188 lbs 10/14/2016 Heigh t: 5'6" 09/16/2016 Blood Pressure 1: 130/80 Code: 8480-6 BMI: 30.3 Code: 86710-3 Heart Rate 1: 67 bpm Height: 5'6" SpO2: 99% Weight: 188 lbs 08/19/2016 Blood Pressure 1: 110/62 Code: 8480-6 BMI: 29.9 Code: 72503-8 Heart Rate 1: 70 bpm Height: 5'6" SpO2: 97% Weight: 185 lbs 06/17/2016 Blood Pressure 1: 112/68 Code: 8480-6 BMI: 27.6 Code: 73041-1 Heart Rate 1: 61 bpm Height: 5'6" SpO2: 98% Weight: 171 lbs 05/12/2016 Blood Pressure 1: 130/76 Code: 8480-6 BMI: 29.7 Code: 94942-4 Heart Rate 1: 103 bpm Height: 5'6" SpO2: 98% Weight: 184 lbs 02/16/2016 Blood Pressure 1: 140/82 Code: 8480-6 BMI: 28.7 Code: 65931-8 Heart Rate 1: 66 bpm Height: 5'6" SpO2: 99% Weight: 178 lbs 11/17/2015 Blood Pressure 1: 120/74 Code: 8480-6 BMI: 29.4 Code: 40311-5 Heart Rate 1: 90 bpm Height: 5'6" SpO2: 94% Weight: 182 lbs 08/28/2015 Blood Pressure 1: 128/76 Code: 8480-6 BMI: 27.9 Code: 12255-5 Heart Rate 1: 80 bpm Height: 5'6" SpO2: 98% Weight: 173 lbs 05/28/2015 Blood Pressure 1: 122/70 Code: 8480-6 BMI: 27.0 Code: 33625-8 Heart Rate 1: 74 bpm Height: 5'6" SpO2: 98% Weight: 167 lbs 04/23/2015 Blood Pressure 1: 110/60 Code: 8480-6 BMI: 27.0 Code: 66053-0 Heart Rate 1: 68 bpm Height: 5'6" [...] o ngoing 05/14/2019 None Location 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 [facility] Diagnosis: Chronic pain syndrome[ICD10: G89.4] Diagnosis: Hypothyroidism, unspecified[ICD10: E03.9] Leydi Jacobo MD, [facility] CPT-4: 76396 05/14/2019 [id number]) 28719 EST. [facility] Diagnosis: Hypothyroidism, unspecified[ICD10: E03.9] Diagnosis: Chronic pain syndrome[ICD10: G89.4] Leydi Jacobo MD, [facility] CPT-4: 67735 03/12/2019 [id number]) [id number] EST. [facility] Diagnosis: Chronic pain syndrome[ICD10: G89.4] Diagnosis: Hypothyroidism, unspecified[ICD10: E03.9] Diagnosis: Encounter for screening for lipoid disorders[ICD10: Z13.220] Diagnosis: Major depressive disorder, recurrent, moderate[ICD10: F33.1] Leydi Jacobo MD, [facility] CPT-4: 25413 01/07/2019 [id number]) [id number] EST. [facility] Diagnosis: Obstructive sleep apnea (adult) (pediatric)[ICD10: G47.33] Diagnosis: Hypothyroidism, unspecified[ICD10: E03.9] Diagnosis: Vitamin B12 deficiency anemia, unspecified[ICD10: D51.9] Leydi Jacobo MD, [facility] CPT-4: 22865 12/27/2018 ([id number]) 23234 EST. P ATIENT, LEVEL IV Diagnosis: Hypothyroidism, unspecified[ICD10: E03.9] Diagnosis: Major depressive disorder, recurrent, moderate[ICD10: F33.1] Diagnosis: Chronic pain syndrome[ICD10: G89.4] Leydi Jacobo MD, [facility] CPT-4: 35616 11/05/2018 ([id number]) 73072 EST. P ATIENT, LEVEL IV Diagnosis: Chronic pain syndrome[ICD10: G89.4] Diagnosis: Hypothyroidism, unspecified[ICD10: E03.9] Diagnosis: Other fatigue[ICD10: R53.83] Diagnosis: Other obesity due to excess calories[ICD10: E66.09] Diagnosis: Major depressive disorder, recurrent, moderate[ICD10: F33.1] Leydi Jacobo MD, [facility] CPT-4: 74085 09/27/2018 ([id number]) 97541 EST. P ATIENT, LEVEL III Diagnosis: Chronic pain syndrome[ICD10: G89.4] Leydi Jacobo MD, [facility] CPT-4: 28469 09/03/2018 ([id number]) 63776 EST. P ATIENT, LEVEL IV Diagnosis: Hypothyroidism, unspecified[ICD10: E03.9] Diagnosis: Major depressive disorder, recurrent, moderate[ICD10: F33.1] Diagnosis: Chronic pain syndrome[ICD10: G89.4] Diagnosis: Other male erectile dysfunction[ICD10: N52.8] Diagnosis: Other fatigue[ICD10: R53.83] Diagnosis: Encounter for screening for malignant neoplasm of prostate[ICD10: Z12.5] Leydi Jacobo MD, [facility] CPT-4: 01057 07/05/2018 ([id number]) 10888 EST. P ATIENT, LEVEL IV Diagnosis: Chronic pain syndrome[ICD10: G89.4] Diagnosis: Hypothyroidism, unspecified[ICD10: E03.9] Diagnosis: Major depressive disorder, recurrent, moderate[ICD10: F33.1] Leydi Jacobo MD, [facility] CPT-4: 29486 05/04/2018 [id number] EST. PATIENT, LEVEL IV Diagnosis: Melena[ICD10: K92.1] Diagnosis: Other malaise[ICD10: R53.81] Diagnosis: Other fatigue[ICD10: R53.83] Diagnosis: Pain in unspecified joint[ICD10: M25.50] Diagnosis: Diarrhea, unspecified[ICD10: R19.7] Denae Jacobo MD, [facility] CPT-4: 48851 03/28/2018 ([id number]) 34051 EST. P ATIENT, LEVEL IV Diagnosis: Chronic pain syndrome[ICD10: G89.4] Diagnosis: Hypothyroidism, unspecified[ICD10: E03.9] Diagnosis: Other obesity due to excess calories[ICD10: E66.09] Diagnosis: Major depressive disorder, recurrent, moderate[ICD10: F33.1] Diagnosis: Obstructive sleep apnea (adult) (pediatric)[ICD10: G47.33] Leydi Jacobo MD, [facility] CPT-4: 84917 02/27/2018 [id number] EST. PATIENT, LEVEL IV Diagnosis: Other specified hypothyroidism[ICD10: E03.8] Diagnosis: Chronic pain syndrome[ICD10: G89.4] Diagnosis: Major depressive disorder, recurrent, moderate[ICD10: F33.1] Denae Jacobo MD, [facility] CPT-4: 79728 12/01/2017 ([id number]) 96685 EST. P ATIENT, LEVEL IV Diagnosis: Chronic pain syndrome[ICD10: G89.4] Diagnosis: Alcohol dependence, uncomplicated[ICD10: F10.20] Diagnosis: Major depressive disorder, recurrent, moderate[ICD10: F33.1] Leydi Jacobo MD, [facility] CPT-4: 42535 09/29/2017 ([id number]) 52936 EST. P ATIENT, LEVEL IV Diagnosis: Chronic pain syndrome[ICD10: G89.4] Diagnosis: Alcohol dependence, uncomplicated[ICD10: F10.20] Diagnosis: Major depressive disorder, recurrent, moderate[ICD10: F33.1] Leydi Jacobo MD, [facility] CPT-4: 82473 08/11/2017 ([id number]) 77140 EST. P ATIENT, LEVEL III Diagnosis: Chronic pain syndrome[ICD10: G89.4] Diagnosis: Major depressive disorder, recurrent, moderate[ICD10: F33.1] Leydi Jacobo MD, [facility] CPT-4: 80439 06/09/2017 ([id number]) 38750 EST. P ATIENT, LEVEL III Diagnosis: Chronic pain syndrome[ICD10: G89.4] Diagnosis: Pain in left knee[ICD10: M25.562] Leydi Jacobo MD, [facility] CPT- 4: 80173 04/07/2017 81051 EST. PATIENT, LEVEL II Diagnosis: Superficial foreign body of left upper arm, initial encounter[ICD10: S40.852A] Diagnosis: Cellulitis of left upper limb[ICD10: L03.114] Leydi Jacobo MD, [facility] CPT-4: 94450 11/17/2016 69988 EST. PATIENT, LEVEL II Diagnosis: Cellulitis of left upper limb[ICD10: L03.114] Leydi Jacobo MD, [facility] CPT-4: 48902 11/10/2016 ([id number]) 27734 EST. P ATIENT, LEVEL III Diagnosis: Chronic pain syndrome[ICD10: G89.4] Diagnosis: Major depressive disorder, recurrent, moderate[ICD10: F33.1] Leydi Jacobo MD, [facility] CPT-4: 69635 10/14/2016 91528 EST. PATIENT, LEVEL IV Diagnosis: Psychophysiologic insomnia[ICD10: F51.04] Diagnosis: Major depressive disorder, recurrent, moderate[ICD10: F33.1] Diagnosis: Alcohol dependence, uncomplicated[ICD10: F10.20] Diagnosis: Chronic pain syndrome[ICD10: G89.4] Leydi Jacobo MD, [facility] CPT-4: 46712 09/16/2016 ([id number]) 38841 EST. P ATIENT, LEVEL III Diagnosis: Pain in left shoulder[ICD10: M25.512] Diagnosis: Major depressive disorder, recurrent, moderate[ICD10: F33.1] Diagnosis: Psychophysiologic insomnia[ICD10: F51.04] Leydi Jacobo MD, [facility] CPT-4: 90387 08/19/2016 ([id number]) 24633 EST. P ATIENT, LEVEL III Diagnosis: Gastro-esophageal reflux disease without esophagitis[ICD10: K21.9] Diagnosis: Hypothyroidism, unspecified[ICD10: E03.9] Leydi Jacobo MD, [facility] CPT-4: 81781 06/17/2016 ([id number]) 40981 EST. P ATIENT, LEVEL IV Diagnosis: Gastro-esophageal reflux disease without esophagitis[ICD10: K21.9] Diagnosis: Hypothyroidism, unspecified[ICD10: E03.9] Diagnosis: Major depressive disorder, recurrent, moderate[ICD10: F33.1] Leydi Jacobo MD, [facility] CPT-4: 98235 05/12/2016 ([id number]) 22701 EST. P ATIENT, LEVEL III Diagnosis: Cervicalgia[ICD10: M54.2] Diagnosis: Hypothyroidism, unspecified[ICD10: E03.9] Diagnosis: Other male erectile dysfunction[ICD10: N52.8] Leydi Jacobo MD, [facility] CPT-4: 50822 02/16/2016 ([id number]) 87576 EST. P ATIENT, LEVEL III Diagnosis: Lumbago with sciatica, unspecified side[ICD10: M54.40] Diagnosis: Other male erectile dysfunction[ICD10: N52.8] Leydi Jacobo MD, [facility] CPT-4: 08831 11/17/2015 ([id number]) 91004 EST. P ATIENT, LEVEL III Diagnosis: Lumbago with sciatica, unspecified side[ICD10: M54.40] Diagnosis: Hypothyroidism, unspecified[ICD10: E03.9] Diagnosis: Other male erectile dysfunction[ICD10: N52.8] Leydi Jacobo MD, [facility] CPT-4: 32062 08/28/2015 ([id number]) 90337 EST. P ATIENT, LEVEL III Diagnosis: Back pain, chronic[ICD9: 724.5] Diagnosis: Depression[ICD9: 311] Diagnosis: Hypothyroid[ICD9: 244.9] Diagnosis: Bilateral calf pain[ICD9: 729.5] Julieta Jacobo MD, [facility] CPT-4: 76619 05/28/2015 ([id number]) OFFICE VISI T, [facility] - LEVEL 4 Diagnosis: Back pain, chronic[ICD9: 724.5] Diagnosis: Depression[ICD9: 311] Diagnosis: Hypothyroid[ICD9: 244.9] Julieta Jacobo MD, [facility] CPT-4: 71326 04/23/2015 Plan of Care Planned Activity Notes [...] termination from this medical practice. Hypothyroidism- seeing custodial manager 05/14/2019 Appointment: Leydi Hightower WPtel: [facility] (30 min) Complex 05/14/2019 Patient Education: Patient Medication Summary Completed 05/14/2019 Visit Plan: Hypothyroidism -refer kaitlynn Yan at [facility] Chronic Pain Syndrome - pt has chronic pain - has been maintained on current medications, has not sought out other medications, only uses PRN pain medications as directed, and understands the consequences of over-medication. 03/12/2019 Appointment: Leydi Hightower WPtel: [address] [place] [address] (30 min) Complex 03/12/2019 Patient Education: Patient Medication Summary Completed 03/12/2019 Appointment: Leydi Hightower WPtel: [phone] (30 min) Complex 03/05/2019 Visit Plan: Chronic [...] thyroid ultrasound 01/07/2019 Appointment: Leydi Hightower WPtel: [phone] [phone] (30 min) Complex 01/07/2019 Patient Education: Patient [...] office 12/27/2018 Appointment: Leydi Hightower WPtel: [phone] [phone] (15 min) Moderate 12/27/2018 Patient Education: Patient [...] medications. 11/05/2018 Appointment: Leydi Hightower WPtel: [phone] [phone] (30 min) Complex 11/05/2018 Patient Education: Patient [...] control. 09/27/2018 Appointment: [facility]ightower [facility]el[facility] [phone] [facility] [phone] (15 min) Moderate 09/27/2018 Patient Education: Patient [...] surrogate. 09/17/2018 Appointment: Leydi Hightower WPtel: [phone] [facility] [phone] [facility] - Annual Wellness Visit 09/17/2018 Patient Education: Patient Medication Summary Completed 09/17/2018 Visit Plan: Chronic Pain Syndrome - pt has chronic pain - has been maintained on current medications, has not sought out other medications, only uses PRN pain medications as directed, and understands the consequences of over-medication. 09/03/2018 Appointment: Leydi Hightower WPtel: [phone] [facility] [phone] (30 min) Complex 09/03/2018 Patient Education: Patient [...] exposure. No change in current medications. Fatigue-weight rgus-TP-alscx labs including testosterone level 07/05/2018 Visit Plan: [...] exposure. No change in current medications. Fatigue-weight afcf-YV-osvne labs including testosterone level 07/05/2018 Appointment: Leydi Hightower WPtel: [facility] [phone] (15 min) Moderate 07/05/2018 Patient Education: Patient [...] BID 05/04/2018 Appointment: Leydi Hightower WPtel: [phone] [phone] (15 min) Moderate 05/04/2018 Patient Education: Patient [...] pain. 03/28/2018 Appointment: Denae Martínez WPtel: [phone] [facility] [place] (30 min) Complex 03/28/2018 Appointment: Nurse Visit [...] this time. 02/27/2018 Appointment: Leydi Hightower WPtel: [phone] [phone] (15 min) Moderate 02/27/2018 Patient Education: Patient [...] of control. 12/01/2017 Appointment: Denae Martínez WPtel: [phone] [place] ([place] min) Complex 12/01/2017 Patient Education: Patient [...] outpatient treatment 09/29/2017 Appointment: Leydi Hightower WPtel: [facility]2 [phone] (30 min) Complex 09/29/2017 Patient Education: Patient [...] cons ider 08/11/2017 Appointment: Leydi Hightower WPtel: [facility]9 [phone] (30 min) Complex 08/11/2017 Patient Education: Patient [...] change in current medications. 06/09/2017 Appointment: Leydi Hightowerl: [facility]5 [phone] (30 min) Complex 06/09/2017 Patient Education: Patient [...] do not completely resolve 11/17/2016 Appointment: Leydi Hihgtower WPtel: [phone] (30 min) Complex 11/17/2016 Patient Education: Patient [...] in pain. 11/10/2016 Appointment: Leydi Hightower WPtel: [phone] (30 min) Complex 11/10/2016 Patient Education: Patient [...] of plan. 10/14/2016 Appointment: Leydi Hightower WPtel: [phone] [id number] [place] [address] (30 min) Complex 10/14/2016 Patient Education: Patient [...] will try 09/16/2016 Appointment: Leydi Hightower WPtel: [phone] (30 min) Complex 09/16/2016 Patient Education: Patient Medication Summary Completed 09/16/2016 Visit Plan: Left shoulder and elbow pain-xray shoulder and elbow Buyujbtmxz-kdrlqmdq-ftryrgvdadzh-d/c trazodone-start remeron at bedtime Pt has been [...] this patient. 08/19/2016 Appointment: Leydi Hightower WPtel: [phone] (30 min) Complex 08/19/2016 Patient Education: Patient [...] Completed 06/17/2016 Appointment: [facility]ightower [facility]Ptel[phone] (30 min) Complex 06/09/2016 Visit Plan: Esophageal [...] of control. 05/12/2016 Appointment: [facility] Hightower WPtel[phone] (30 min) Complex 05/12/2016 Patient Education: Patient [...] in office. 05/28/2015 Appointment: Leydi Hightower WPtel: [address] [place], [place] [phone] (30 min) Complex 05/28/2015 Patient Education: Patient [...] Care Plan: COMPLETE CBC AUTOMATED LOINC : 40129-9 Ordered 04/23/2015 Instructions Comment DECREASE LEVOTHYROXI NE [...] dependence-alcohol free x 11 days-attending outpatient treatment STOP TRAZODONE START REMERON AT BEDTIME . Left shoulder and elbow pain-xray shou lder and elbow Fnoixztnme-eivvuyng-hzivjgpabugc-d/c trazodone-start remeron at bedtime Pt has been [...] been appropriately prescribed for this patient. . Hypothyroidism -re sierra to Noemi Yan at [facility] Chronic Pain Syndrome - pt has chronic pain - has been maintained on current medications, has not sought out other medications, only uses PRN pain medications as directed, and understands the consequences of over-medication. . Chronic Pain Syndr ome - pt [...] see what type of brace is covered. RECOMMEND SLEEP STUD Y BELVIQ DECREASE LEVOTHYROXINE [...] of the lesion, increase in pain. . Chronic pain-manag ed by Dr Perez-not [...] exposure. No change in current medications. Fatigue-weight xbww-[id number] labs including testosterone level . Chronic Pain [...] exposure. No change in current medications. Fatigue-weight dvmd-SR-pxcrx labs including testosterone level . Chronic Back [...] termination from this medical practice. 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 Chronic Pain Syndr ome - pt [...] -chronic -B12 injection today in the office . Chronic Pain Syndr ome - pt [...] dependence-discussed referral to psychologist-patient will consider . Chronic Pain Syndr ome - pt [...] months based on previous levels of control. Refill baclofen and wellbutrin. Consider increasing wellbutrin [...] medications are managed by Dr. Perez. . 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 Chronic Pain Syndrome [...]
--- OUTSIDE RECORDS SUMMARY | 2020-03-17 14:46 | XMS REPORT | CCD ---
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 Name Role Phone PP Unavailable CCM Unavailable Summary Purpose Interface Exchange Insurance Providers Payer name Policy type / Coverage type Covered green party ID Effective Begin Date Effective End Date WPS Medicare Part B Medicare Part B [id number] Unknown [facility] icare Part B [id number] Un known Family history Father Diagnosis Age At Onset Colon cancer Unknown Social History Social History Element Codes Description Effective Dates Employment Unknown [place] nt[place] unemployed Before disability 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 On Disability Unknown Yes 09/27/2018 Marital status Unknown D ivorced 04/23/[address]: 365944098 Never smoker 04/23/[address]: 220798 Currently drinks alcohol occasionally drinks 04/23/2015 Allergies, [...] Instructions doxycycline hyclate 100 mg tablet RxNorm: 7331488 1 Tablet(s) PO BID 05/14/2019 05/23/2019 Active oxymorphone 5 mg tablet RxNorm: 674191 1 Tablet(s) PO Q6 PRN 05/14/2019 07/12/2019 Active morphine 30 mg table t, crush resistant, extended release RxNorm: 9591272 1 Tablet(s) PO BID 05/14/2019 06/12/2019 Active morphine 30 mg table t, crush resistant, extended release RxNorm: 2265324 1 Tablet(s) PO BID 05/07/2019 05/13/2019 Inactive levothyroxine 200 mc g tablet RxNorm: 022755 1 Tablet(s) PO daily TAKE ONE TABLET BY MOUTH DAILY 03/12/2019 09/07/2019 Active Updated script trazodone 50 mg tablet RxNorm: 387232 1.5 Tablet(s) PO QHS TAKE ONE TABLET BY MOUTH EVERY NIGHT AT BEDTIME AND ONE-HALF TABLET BY MOUTH NEEDED 03/12/2019 06/09/2019 Active morphine 30 mg table t, crush resistant, extended release RxNorm: 5814888 1 Tablet(s) PO BID 03/12/2019 04/10/2019 Inactive oxymorphone 5 mg tablet RxNorm: 344508 1 Tablet(s) PO Q6 PRN 03/12/2019 05/10/2019 Inactive doxycycline hyclate 100 mg tablet RxNorm: 7193818 1 Tablet(s) PO BID 03/12/2019 03/21/2019 Inactive morphine 30 mg table t, crush resistant, extended release RxNorm: 7933229 1 Tablet(s) PO BID 03/06/2019 03/11/2019 Inactive tizanidine 4 mg tablet RxNorm: 442190 TAKE ONE TABLET BY MOUTH THREE TIMES A D AY NEEDED 02/26/2019 05/26/2019 Active diclofenac sodium 75 mg tablet,delayed release RxNorm: 829505 TAKE ONE TABLET BY MO [facility] TWICE A DAY 02/18/2019 05/18/2019 Active Protonix 40 mg table t,delayed release RxNorm: 758379 TAKE ONE TABLET BY MO UTH DAILY 02/06/2019 09/03/2019 Ac tive trazodone 50 mg tablet RxNorm: 383374 TAKE ONE TABLET BY MOUTH EVERY NIGHT AT BEDTIME AND ONE-HALF TABLET BY MOUTH NEEDED 01/14/2019 03/11/2019 Inactive oxymorphone 5 mg tablet RxNorm: 887250 1 Tablet(s) PO Q6 PRN 01/07/2019 03/07/2019 Inactive morphine 30 mg table t, crush resistant, extended release RxNorm: 4763562 1 Tablet(s) PO BID 01/07/2019 03/05/2019 Inactive doxycycline hyclate 100 mg tablet RxNorm: 3244318 1 Tablet(s) PO BID 01/01/2019 01/10/2019 Inactive cyanocobalamin (vit B-12) 1,000 mcg/mL injection solution RxNorm: 123420 1 Milliliter(s) Inj 12/27/2018 12/27/2018 Inactive baclofen 10 mg tablet RxNorm: 227689 TAKE ONE TABLET BY MOUTH THREE TIMES A D AY NEEDED 11/29/2018 03/28/2019 Inactive Request already responded t o by other means (e.g. phone or fax) baclofen 10 mg tablet RxNorm: 083230 Tablet(s) TAKE ONE TABLET BY MOUTH THREE TIMES A DAY NEEDED 11/28/2018 11/28/2018 Inactive doxycycline hyclate 100 mg tablet RxNorm: 6782390 1 Tablet(s) PO BID 11/14/2018 11/23/2018 Inactive trazodone 50 mg tablet RxNorm: 642187 TAKE ONE TABLET BY MOUTH EVERY NIGHT AT BEDTIME AND ONE-HALF TABLET BY MOUTH NEEDED 11/12/2018 12/21/2018 Inactive tizanidine 4 mg tablet RxNorm: 665550 TAKE ONE TABLET BY MOUTH THREE TIMES A D AY NEEDED 10/22/2018 02/18/2019 Inactive diclofenac sodium 75 mg tablet,delayed release RxNorm: 037264 TAKE ONE TABLET BY [facility] TWICE A DAY 10/15/2018 02/11/2019 Inactive Lasix 20 mg tablet RxNorm: 565812 1 Tablet(s) PO daily as needed 10/10/2018 11/08/2018 In active potassium chloride E R 10 mEq tablet,extended release RxNorm: 412084 1 Tablet(s) PO daily as needed to take with lasix for inceased edema 10/10/2018 11/08/2018 Inactive potassium chloride E R 10 mEq tablet,extended release RxNorm: 687397 1 Tablet(s) PO daily as needed to take with lasix for inceased edema 10/10/2018 10/09/2018 Inactive Lasix 20 mg tablet RxNorm: 352124 1 Tablet(s) PO daily as needed 10/10/2018 10/09/2018 In active doxycycline hyclate 100 mg tablet RxNorm: 2898851 1 Tablet(s) PO BID 09/27/2018 10/10/2018 Inactive Remeron 15 mg tablet RxNorm: 873795 1.5 Tablet(s) PO QPM TAKE ONE TABLET BY MOUTH EVERY NIGHT AT BEDTIME 09/18/2018 12/16/2018 Inactive baclofen 10 mg tablet RxNorm: 605498 TAKE ONE TABLET BY MOUTH THREE TIMES A D AY NEEDED 09/12/2018 11/10/2018 Inactive Remeron 15 mg tablet RxNorm: 273666 1.5 Tablet(s) PO QPM TAKE ONE TABLET BY MOUTH EVERY NIGHT AT BEDTIME 09/03/2018 09/17/2018 Inactive oxymorphone 5 mg tablet RxNorm: 327315 1 Tablet(s) PO Q6 PRN 09/03/2018 11/01/2018 Inactive morphine 30 mg table t, crush resistant, extended release RxNorm: 9447261 1 Tablet(s) PO BID 09/03/2018 11/01/2018 Inactive trazodone 50 mg tablet RxNorm: 905615 TAKE ONE TABLET BY MOUTH EVERY NIGHT AT BEDTIME AND ONE-HALF TABLET BY MOUTH NEEDED 09/03/2018 10/12/2018 Inactive tizanidine 4 mg tablet RxNorm: 917928 TAKE ONE TABLET BY MOUTH THREE TIMES A D AY NEEDED 08/20/2018 10/18/2018 Inactive Protonix 40 mg table t,delayed release RxNorm: 074574 TAKE ONE TABLET BY MO UTH DAILY 08/10/2018 02/05/2019 In active Carafate 1 gram tablet RxNorm: 538196 TAKE ONE TABLET BY MOUTH BEFORE MEALS AN D AT BEDTIME NEEDED FOR HEARTBURN 07/31/2018 12/27/2018 Inactive Protonix 40 mg table t,delayed release RxNorm: 639225 1 Tablet(s) BID 07/24/2018 07/23/2018 Inactive Protonix 40 mg table t,delayed release RxNorm: 050075 1 Tablet(s) daily 07/24/2018 08/09/2018 In active liothyronine 5 mcg t ablet RxNorm: 244711 TAKE ONE TABLET BY MO UTH DAILY 07/19/2018 01/09/2019 In active baclofen 10 mg tablet RxNorm: 727893 TAKE ONE TABLET BY MOUTH THREE TIMES A D AY NEEDED 07/12/2018 09/09/2018 Inactive levothyroxine 175 mc g tablet RxNorm: 016929 1 Tablet(s) PO daily 07/11/2018 03/11/2019 Inactive Vitamin D2 50,000 un it capsule RxNorm: 5413460 1 Capsule(s) PO QW 07/11/2018 10/02/2018 Inactive trazodone 50 mg tablet RxNorm: 331270 TAKE ONE TABLET BY MOUTH EVERY NIGHT AT BEDTIME AND ONE-HALF TABLET BY MOUTH NEEDED 07/11/2018 08/19/2018 Inactive Vitamin D2 50,000 un it capsule RxNorm: 4541535 1 Capsule(s) PO QW 07/11/2018 07/10/2018 Inactive morphine 30 mg table t, crush resistant, extended release RxNorm: 2784645 1 Tablet(s) PO BID 07/05/2018 09/02/2018 Inactive oxymorphone 5 mg tablet RxNorm: 354439 1 Tablet(s) PO Q6 PRN 07/05/2018 09/02/2018 Inactive bupropion HCl XL 300 mg 24 hr tablet, extended release RxNorm: 604989 TAKE ONE TABLET BY MOUTH DAILY 06/27/2018 12/23/2018 Inactive Remeron 15 mg tablet RxNorm: 885806 TAKE ONE TABLET BY MOUTH EVERY NIGHT AT BEDTIME 06/27/2018 09/02/2018 Inactive tizanidine 4 mg tablet RxNorm: 842175 TAKE ONE TABLET BY MOUTH THREE TIMES A D AY NEEDED 06/20/2018 08/18/2018 Inactive doxycycline hyclate 100 mg tablet RxNorm: 0785919 1 Tablet(s) PO BID 06/18/2018 07/01/2018 Inactive Protonix 40 mg table t,delayed release RxNorm: 429090 TAKE ONE TABLET BY MO UTH DAILY 06/11/2018 07/23/2018 In active doxycycline hyclate 100 mg tablet RxNorm: 4887098 1 Tablet(s) PO BID 05/22/2018 06/04/2018 Inactive baclofen 10 mg tablet RxNorm: 099454 TAKE ONE TABLET BY MOUTH THREE TIMES A D AY NEEDED 05/14/2018 07/11/2018 Inactive diclofenac sodium 75 mg tablet,delayed release RxNorm: 385799 TAKE ONE TABLET BY [facility] TWICE A DAY 05/07/2018 10/03/2018 Inactive oxymorphone 5 mg tablet RxNorm: 365670 1 Tablet(s) PO Q6 PRN 05/04/2018 07/02/2018 Inactive morphine 30 mg table t, crush resistant, extended release RxNorm: 3847227 1 Tablet(s) PO BID 05/04/2018 07/02/2018 Inactive doxycycline hyclate 100 mg tablet RxNorm: 781259 1 Tablet(s) PO BID 04/24/2018 04/23/2018 Inactive doxycycline hyclate 100 mg tablet RxNorm: 5080001 1 Tablet(s) PO BID 04/24/2018 05/03/2018 Inactive baclofen 10 mg tablet RxNorm: 553695 TAKE ONE TABLET BY MOUTH THREE TIMES A D AY NEEDED 04/13/2018 05/12/2018 Inactive trazodone 50 mg tablet RxNorm: 708696 TAKE ONE TABLET BY MOUTH EVERY NIGHT AT BEDTIME AND ONE-HALF TABLET BY MOUTH NEEDED 04/09/2018 06/07/2018 Inactive Questran 4 gram powd er for susp in a packet RxNorm: 021582 1 packet PO BID 04/06/2018 06/04/2018 In active Questran 4 gram powd er for susp in a packet RxNorm: 525705 1 packet PO BID 04/06/2018 04/05/2018 In active Carafate 1 gram tablet RxNorm: 741240 1 Tablet(s) PO AC & HS as needed for hea rtburn 03/28/2018 04/26/2018 Inactive baclofen 10 mg tablet RxNorm: 198790 TAKE ONE TABLET BY MOUTH THREE TIMES A D AY NEEDED 03/16/2018 04/12/2018 Inactive Protonix 40 mg table t,delayed release RxNorm: 614926 TAKE ONE TABLET BY [facility] DAILY 03/16/2018 06/10/2018 In active oxymorphone 5 mg tablet RxNorm: 915012 1 Tablet(s) PO Q6 PRN 02/27/2018 04/27/2018 Inactive morphine 30 mg table t, crush resistant, extended release RxNorm: 0580683 1 Tablet(s) PO BID 02/27/2018 04/27/2018 Inactive Belviq XR 20 mg tabl et,extended release RxNorm: 5258150 1 Tablet(s) PO daily 02/27/2018 01/06/2019 In active levothyroxine 100 mc g tablet RxNorm: 124216 1 Tablet(s) PO daily 02/27/2018 07/10/2018 Inactive take with 88mcg to = 188mcg daily levothyroxine 88 mcg tablet RxNorm: 813223 1 Tablet(s) PO daily 02/27/2018 07/10/2018 Inactive take with 100mcg to = 188mcg daily morphine 30 mg table t, crush resistant, extended release RxNorm: 9341313 1 Tablet(s) PO BID 02/14/2018 02/26/2018 Inactive levothyroxine 200 mc g tablet RxNorm: 448655 Tablet(s) TAKE ONE TA BLET BY MOUTH DAILY 01/18/2018 02/26/2018 Inactive Updated script baclofen 10 mg tablet RxNorm: 683490 Tablet(s) TAKE ONE TABLET BY MOUTH THREE TIMES A DAY NEEDED 01/15/2018 02/13/2018 Inactive morphine 30 mg table t, crush resistant, extended release RxNorm: 4691306 1 Tablet(s) PO BID 01/15/2018 02/13/2018 Inactive tizanidine 4 mg tablet RxNorm: 770518 TAKE ONE TABLET BY MOUTH THREE TIMES A D AY NEEDED 01/02/2018 04/01/2018 Inactive Request already responded t o by other means (e.g. phone or fax) bupropion HCl XL 300 mg 24 hr tablet, extended release RxNorm: 252750 TAKE ONE TABLET BY MOUTH DAILY 12/29/2017 06/26/2018 Inactive Tamiflu 75 mg capsule RxNorm: 172872 1 Capsule(s) PO BID 12/27/2017 12/31/2017 Inactive Tamiflu 75 mg capsule RxNorm: 043605 1 Capsule(s) PO BID 12/27/2017 12/26/2017 Inactive tizanidine 4 mg tablet RxNorm: 463162 1 Tablet(s) PO TID as needed 12/25/2017 01/01/2018 Inactive levothyroxine 175 mc g tablet RxNorm: 984232 1 Tablet(s) PO daily 12/14/2017 12/13/2017 Inactive levothyroxine 175 mc g tablet RxNorm: 793836 1 Tablet(s) PO daily 12/14/2017 01/17/2018 Inactive baclofen 10 mg tablet RxNorm: 845659 Tablet(s) TAKE ONE TABLET BY MOUTH THREE TIMES A DAY NEEDED 12/13/2017 01/11/2018 Inactive baclofen 10 mg tablet RxNorm: 710203 TAKE ONE TABLET BY MOUTH THREE TIMES A D AY NEEDED 12/13/2017 12/12/2017 Inactive morphine 30 mg table t, crush resistant, extended release RxNorm: 2223815 1 Tablet(s) PO BID 12/12/2017 01/14/2018 Inactive clonazepam 1 mg tablet RxNorm: 163801 1/2 Tablet(s) PO daily 12/01/2017 08/27/2018 Inactive trazodone 50 mg tablet RxNorm: 761022 1/2 to 1 Tablet(s) QHS as needed 12/01/2017 03/30/2018 In active Opana ER 15 mg table t, crush resistant, extended release RxNorm: 101301 1 Tablet(s) PO Q12H 12/01/2017 02/13/2018 Inactive oxymorphone 5 mg tablet RxNorm: 896626 1 Tablet(s) PO Q6 PRN 12/01/2017 02/26/2018 Inactive Remeron 15 mg tablet RxNorm: 164444 Tablet(s) TAKE ONE TABLET BY MOUTH EVERY NIGHT AT BEDTIME 12/01/2017 02/28/2018 Inactive trazodone 50 mg tablet RxNorm: 809577 1/2 Tablet(s) as needed 1 Tablet(s) PO Q HS 12/01/2017 11/30/2017 In active clonazepam 1 mg tablet RxNorm: 632113 1/2 Tablet(s) PO daily 11/30/2017 11/30/2017 Inactive Remeron 15 mg tablet RxNorm: 343561 TAKE ONE TABLET BY MOUTH EVERY NIGHT AT BEDTIME 11/29/2017 11/30/2017 Inactive levothyroxine 200 mc g tablet RxNorm: 217722 TAKE ONE TABLET BY MO UTH DAILY 11/15/2017 12/13/2017 In active baclofen 10 mg tablet RxNorm: 971937 TAKE ONE TABLET BY MOUTH THREE TIMES A D AY NEEDED 11/07/2017 12/06/2017 Inactive diclofenac sodium 75 mg tablet,delayed release RxNorm: 100678 1 Tablet(s) PO BID 11/07/2017 05/05/2018 In active liothyronine 5 mcg t ablet RxNorm: 846244 TAKE ONE TABLET BY MO UTH DAILY 10/27/2017 07/18/2018 In active tizanidine 4 mg tablet RxNorm: 588200 1 Tablet(s) PO TID as needed 10/18/2017 12/16/2017 Inactive oxymorphone 5 mg tablet RxNorm: 967372 1 Tablet(s) PO Q6 PRN 09/29/2017 11/27/2017 Inactive morphine 30 mg table t, crush resistant, extended release RxNorm: 3754122 1 Tablet(s) PO BID 09/29/2017 11/28/2017 Inactive baclofen 10 mg tablet RxNorm: 228098 1 Tablet(s) PO TID as needed 09/11/2017 10/10/2017 Inactive baclofen 10 mg tablet RxNorm: 760172 1 Tablet(s) PO TID as needed 08/11/2017 09/09/2017 Inactive Opana ER 15 mg table t, crush resistant, extended release RxNorm: 251540 1 Tablet(s) PO Q12H 08/11/2017 09/28/2017 Inactive Remeron 15 mg tablet RxNorm: 166210 TAKE ONE TABLET BY MOUTH EVERY NIGHT AT BEDTIME 08/02/2017 10/30/2017 Inactive oxymorphone 5 mg tablet RxNorm: 149489 1 Tablet(s) PO Q6 PRN 08/02/2017 09/28/2017 Inactive Opana ER 5 mg tablet , crush resistant, extended release RxNorm: 607843 1 Tablet(s) PO Q6 PRN 08/01/2017 08/10/2017 Inactive Protonix 40 mg table t,delayed release RxNorm: 926537 TAKE ONE TABLET BY MO UTH DAILY 06/26/2017 06/25/2017 In active Protonix 40 mg table t,delayed release RxNorm: 804878 TAKE ONE TABLET BY MO UTH DAILY 06/26/2017 02/05/2019 In active bupropion HCl XL 300 mg 24 hr tablet, extended release RxNorm: 275843 TAKE ONE TABLET BY MOUTH DAILY 06/13/2017 12/09/2017 Inactive tizanidine 4 mg tablet RxNorm: 841289 1 Tablet(s) PO TID as needed 06/13/2017 06/12/2017 Inactive tizanidine 4 mg tablet RxNorm: 693844 1 Tablet(s) PO TID as needed 06/13/2017 09/10/2017 Inactive baclofen 10 mg tablet RxNorm: 089948 1 Tablet(s) PO TID as needed 06/13/2017 07/12/2017 Inactive Opana ER 15 mg table t, crush resistant, extended release RxNorm: 968292 1 Tablet(s) PO Q12H 06/09/2017 08/07/2017 Inactive Opana ER 5 mg tablet , crush resistant, extended release RxNorm: 929163 1 Tablet(s) PO Q6 PRN 06/09/2017 07/31/2017 Inactive diclofenac sodium 75 mg tablet,delayed release RxNorm: 785748 1 Tablet(s) PO BID 06/09/2017 09/06/2017 In active clonazepam 1 mg tablet RxNorm: 309106 1/2 Tablet(s) PO daily 05/24/2017 11/18/2017 Inactive bupropion HCl XL 300 mg 24 hr tablet, extended release RxNorm: 606911 TAKE ONE TABLET BY MOUTH DAILY 03/16/2017 06/12/2017 Inactive clonazepam 1 mg tablet RxNorm: 203945 1/2 Tablet(s) PO daily 02/22/2017 05/18/2017 Inactive Remeron 15 mg tablet RxNorm: 516241 TAKE ONE TABLET BY MOUTH EVERY NIGHT AT BEDTIME 02/06/2017 2017 Inactive Protonix 40 mg table t,delayed release RxNorm: 345544 TAKE ONE TABLET BY MO [facility] DAILY 01/26/2017 06/24/2017 In active mupirocin 2 % topica l ointment RxNorm: 741770 1 Application TOP BID 01/12/2017 01/18/2017 Inactive Bactrim DS 800 mg-16 0 mg tablet RxNorm: 031808 1 Tablet(s) PO BID 11/17/2016 11/23/2016 Inactive mupirocin 2 % topica l ointment RxNorm: 017197 1 Application TOP BID 11/10/2016 11/16/2016 Inactive Bactrim DS 800 mg-16 0 mg tablet RxNorm: 830220 1 Tablet(s) PO BID 11/10/2016 11/16/2016 Inactive bupropion HCl XL 300 mg 24 hr tablet, extended release RxNorm: 999160 TAKE ONE TABLET BY MOUTH DAILY 11/07/2016 03/06/2017 Inactive liothyronine 5 mcg t ablet RxNorm: 680109 1 Tablet(s) PO daily 11/01/2016 10/26/2017 Inactive levothyroxine 200 mc g tablet RxNorm: 402278 1 Tablet(s) PO daily 10/04/2016 09/28/2017 Inactive clonazepam 1 mg tablet RxNorm: 932878 1/2 Tablet(s) PO daily 09/21/2016 03/18/2017 Inactive clonazepam 1 mg tablet RxNorm: 418192 1/2 Tablet(s) PO daily 09/16/2016 09/20/2016 Inactive Abilify 2 mg tablet RxNorm: 222332 1 Tablet(s) PO daily 09/16/2016 10/13/2016 Inactive trazodone 50 mg tablet RxNorm: 308658 1/2 Tablet(s) as needed 1 Tablet(s) PO Q HS 09/16/2016 01/13/2017 In active morphine 15 mg immed iate release tablet RxNorm: 848332 1 Tablet(s) PO Q6 PRN 09/16/2016 04/06/2017 In active baclofen 10 mg tablet RxNorm: 988603 1 Tablet(s) PO TID as needed 09/16/2016 06/12/2017 Inactive MS Contin 30 mg tabl et,extended release RxNorm: 506656 1 Tablet(s) PO Q12H 09/16/2016 04/06/2017 In active Remeron 15 mg tablet RxNorm: 984731 1 Tablet(s) PO QHS 08/19/2016 09/15/2016 Inactive levothyroxine 200 mc g tablet RxNorm: 402574 1 Tablet(s) PO daily 08/11/2016 10/03/2016 Inactive bupropion HCl XL 300 mg 24 hr tablet, extended release RxNorm: 751874 TAKE ONE TABLET BY MOUTH DAILY 08/11/2016 11/06/2016 Inactive Protonix 40 mg table t,delayed release RxNorm: 649592 1 Tablet(s) PO daily 06/17/2016 12/13/2016 In active bupropion HCl XL 300 mg 24 hr tablet, extended release RxNorm: 066129 1 Tablet(s) PO daily 05/12/2016 07/10/2016 Inactive bupropion HCl XL 300 mg 24 hr tablet, extended release RxNorm: 945575 1 Tablet(s) PO daily 05/12/2016 05/11/2016 Inactive Cialis 20 mg tablet RxNorm: 632299 1 Tablet(s) PO PRN 02/16/2016 No Stop Date Active not more than 1 tab in 24 hours morphine ER 10 mg ca psule,extended release pellets RxNorm: 935616 1 Tablet(s) PO Q6 as needed 02/16/2016 11/16/2016 Inactive clonazepam 1 mg tablet RxNorm: 345732 1/2 Tablet(s) PO BID 02/16/2016 09/15/2016 Inactive trazodone 50 mg tablet RxNorm: 035515 1/2 Tablet(s) as needed 1 Tablet(s) PO Q HS 02/16/2016 08/18/2016 In active trazodone 50 mg tablet RxNorm: 510703 1/2 Tablet(s) 1 Tablet(s) PO QHS 11/17/2015 02/15/2016 In active trazodone 50 mg tablet RxNorm: 845925 1 Tablet(s) PO QHS 10/19/2015 11/16/2015 Inactive levothyroxine 200 mc g tablet RxNorm: 523873 1 Tablet(s) PO daily 10/02/2015 08/10/2016 Inactive Wellbutrin XL 150 mg 24 hr tablet, extended release RxNorm: 249488 1 Tablet(s) PO daily 10/02/2015 05/11/2016 Inactive levothyroxine 200 mc g tablet RxNorm: 949908 1 Tablet(s) PO daily 09/30/2015 10/01/2015 Inactive Wellbutrin XL 150 mg 24 hr tablet, extended release RxNorm: 765198 1 Tablet(s) PO daily 09/30/2015 10/01/2015 Inactive trazodone 50 mg tablet RxNorm: 828098 1 Tablet(s) PO QHS 09/11/2015 10/10/2015 Inactive trazodone 50 mg tablet RxNorm: 949769 1 Tablet(s) PO QHS 09/11/2015 09/10/2015 Inactive Cymbalta 30 mg capsu le,delayed release RxNorm: 749500 1 Capsule(s) PO daily 09/07/2015 11/16/2015 In active Cymbalta 60 mg capsu le,delayed release RxNorm: 254817 1 Capsule(s) PO daily 08/31/2015 08/30/2015 In active Cymbalta 30 mg capsu le,delayed release RxNorm: 238299 1 Capsule(s) PO daily take with 60mg to make 90 mg daily 08/31/2015 09/06/2015 Inactive Cymbalta 30 mg capsu le,delayed release RxNorm: 152663 1 Capsule(s) PO daily take with 60mg to make 90 mg daily 08/31/2015 08/30/2015 Inactive Cymbalta 60 mg capsu le,delayed release RxNorm: 929245 1 Capsule(s) PO daily x 7 days and then increase to 90mg daily 08/31/2015 09/07/2015 Inactive levothyroxine 200 mc g tablet RxNorm: 662240 1 Tablet(s) PO daily 08/14/2015 09/29/2015 Inactive Wellbutrin XL 150 mg 24 hr tablet, extended release RxNorm: 086385 1 Tablet(s) PO daily 07/14/2015 09/29/2015 Inactive Cialis 20 mg tablet RxNorm: 837273 1 Tablet(s) PO PRN 07/02/2015 02/15/2016 Inactive not more than 1 tab in 24 hours liothyronine 5 mcg t ablet RxNorm: 351354 1 Tablet(s) PO daily 2015 05/29/2016 Inactive clonazepam 1 mg tablet RxNorm: 914246 1 Tablet(s) PO TID 2015 02/15/2016 Inactive minocycline 50 mg ta blet RxNorm: 508874 1 Tablet(s) PO daily 2015 05/11/2016 Inactive Wellbutrin XL 150 mg 24 hr tablet, extended release RxNorm: 690971 1 Tablet(s) PO daily 04/23/2015 07/13/2015 Inactive levothyroxine 200 mc g tablet RxNorm: 219693 1 Tablet(s) PO daily 04/23/2015 08/13/2015 Inactive Aleve oral RxNorm: 019397 oral No Start Date Active Tylenol 500 mg RxNorm: oral No Start Date Active morphine ER 15 mg ta blet,extended release RxNorm: 444565 oral No Start Date 11/16/2016 Inactive Trazadone 25 mg RxNorm: 2 PO daily No Start Date 09/11/2015 Inactive diclofenac oral RxNorm: 3355 oral No Start Date 05/04/2018 Inactive clonazepam 1 mg tablet RxNorm: 357411 1 Tablet(s) PO QHS No Start Date 06/04/2015 Inactive Wellbutrin XL 150 mg 24 hr tablet, extended release RxNorm: 719851 1 Tablet(s) PO daily No Start Date 04/22/2015 Inactive minocycline 50 mg ta blet RxNorm: 424527 1 Tablet(s) PO daily No Start Date 06/04/2015 Inactive methadone 5 mg tablet RxNorm: 217619 1 Tablet(s) PO Q8 No Start Date 02/15/2016 Inactive Protonix 40 mg table t,delayed release RxNorm: 451801 Tablet(s) PO daily No Start Date 06/16/2016 Inactive Opana ER 15 mg table t, crush resistant, extended release RxNorm: 781550 1 Tablet(s) PO Q12H No Start Date 06/08/2017 Inactive MS Contin 30 mg tabl et,extended release RxNorm: 589473 1 Tablet(s) PO Q12H No Start Date 02/15/2016 Inactive Opana ER 15 mg table t, crush resistant, extended release RxNorm: 785084 1 Tablet(s) PO BID No Start Date 09/15/2016 Inactive liothyronine 5 mcg t ablet RxNorm: 894526 1 Tablet(s) PO daily No Start Date 06/04/2015 Inactive Cialis 20 mg tablet RxNorm: 097120 1 Tablet(s) PO PRN No Start Date 07/01/2015 Inactive not more than 1 tab in 24 hours baclofen 10 mg tablet RxNorm: 957001 1 Tablet(s) PO TID as needed No Start Date 05/11/2016 Inactive morphine 15 mg immed iate release tablet RxNorm: 824635 1 Tablet(s) PO Q6 PRN as needed No Start Date 02/15/2016 Inactive levothyroxine 200 mc g tablet RxNorm: 674096 1 Tablet(s) PO daily No Start Date 04/22/2015 Inactive Opana ER 5 mg tablet , crush resistant, extended release RxNorm: 817195 1 Tablet(s) PO Q6 No Start Date 06/08/2017 Inactive Medication Administered Medication Codes Instruc tions Start Date Status cyanocobalamin (vit B-12) 1,000 mcg/mL injection solut ion RxNorm: 252150 1Milliliter 12/27/2018 No longer Active Immunizations No [...] pain 06/09/2017 [place] back pain 04/07/2017 Gennaro bernard sores 11/17/2016 sores 11/10/2016 back pain 10/14/2016 [...] 29.4 pg 01/07/2019 Cbc With Differential Ord2 [place]% 10.9 % 01/07/2019 Cbc With Differential Ord2 [...] 1.77 K/ul 01/07/2019 Cbc With Differential Ord2 [place] ABS# 0.5 K/ul 01/07/2019 Cbc With Differential Ord2 Eos ABS# 0.1 K/ul 01/07/2019 Cbc With Differential Ord2 Baso ABS# 0.0 K/ul 01/07/2019 Free T4 Xlx577 FREE T4 2.05 ng/dL 01/07/2019 Lipid Ord30 CHOL 189 mg/dL 01/07/2019 Lipid Ord30 HDL 58.0 mg/dl 01/07/2019 Lipid Ord30 TRIG 155 mg/dL 01/07/2019 Lipid Ord30 LDL 100 mg/dL 01/07/2019 Lipid Ord30 C/HDL 3.3 Ratio 01/07/2019 Comp Metabolic Lxl046 NA 137 mEq/L 01/07/2019 Comp Metabolic Ler599 K 4.2 mEq/L 01/07/2019 Comp Metabolic Qyh229 CL 104 mEq/L 01/07/2019 Comp Metabolic Oqy565 CO2 26.0 mEq/L 01/07/2019 Comp Metabolic Upn836 AN ION GAP 11 01/07/2019 Comp Metabolic Owf973 GL UCOSE 64 mg/dL 01/07/2019 Comp Metabolic Gcz941 Cr eat 0.8 mg/dL 01/07/2019 Comp Metabolic Lrx570 eG FR 110 ml/min/1.73m2 12/28 Comp Metabolic Qyf805 BUN 7 mg/dL 01/07/2019 Comp Metabolic Efd901 B/ C Ratio 9.0 Ratio 01/07/2019 Comp Metabolic Bsg866 CA LCIUM 9.7 mg/dL 01/07/2019 Comp Metabolic Hah015 AL K PHOS 64 U/L 01/07/2019 Comp Metabolic Oig094 T(SGOT) 32 U/L 01/07/2019 Comp Metabolic Med960 AL T(SGPT) 44 U/L 01/07/2019 Comp Metabolic Bbs094 BI LI T 0.3 mg/dL 01/07/2019 Comp Metabolic Mow452 AL BUMIN 4.3 g/dL 01/07/2019 Comp Metabolic Ghz243 TP RO 6.5 g/dL 01/07/2019 Comp Metabolic Qke515 GL OB 2.2 g/dL 01/07/2019 Comp Metabolic Tid782 A/ G Ratio 2.0 Ratio 01/07/2019 Comp Metabolic Ovn032 Os mo 270 mOsmo 01/07/2019 Free T4 Oad065 FREE T4 1.54 ng/dL 11/05/2018 Vitamin D 25 Oh [id number] VITAMIN D, 25 HYDROXY 40.65 ng/mL 11/05/2018 Tsh Ord6 TSH (3rd IS) 0.02 uIU/mL 11/05/2018 Vitamin D 25 Oh Vgv3925 VITAMIN D, 25 HYDROXY 30.96 ng/mL 07/06/2018 Comp Metabolic Kqf596 NA 141 mEq/L 07/06/2018 Comp Metabolic Lfe969 K 4.2 mEq/L 07/06/2018 Comp Metabolic Vjh257 CL 103 mEq/L 07/06/2018 Comp Metabolic Dya334 CO2 29.0 mEq/L 07/06/2018 Comp Metabolic Vbk281 AN ION GAP 13 07/06/2018 Comp Metabolic Yfu045 GL UCOSE 105 mg/dL 07/06/2018 Comp Metabolic Wnq614 Cr eat 0.8 mg/dL 07/06/2018 Comp Metabolic Idg864 eG FR 101 ml/min/1.73m2 06/27 Comp Metabolic Cam087 BUN 7 mg/dL 07/06/2018 Comp Metabolic Xrr412 B/ C Ratio 8.3 Ratio 07/06/2018 Comp Metabolic Kzr587 CA LCIUM 9.9 mg/dL 07/06/2018 Comp Metabolic Vrw818 AL K PHOS 65 U/L 07/06/2018 Comp Metabolic Ftj262 T(SGOT) 21 U/L 07/06/2018 Comp Metabolic Mqk778 AL T(SGPT) 31 U/L 07/06/2018 Comp Metabolic Ewx559 BI LI T 0.3 mg/dL 07/06/2018 Comp Metabolic Fzv698 AL BUMIN 4.3 g/dL 07/06/2018 Comp Metabolic Hlp253 TP RO 6.4 g/dL 07/06/2018 Comp Metabolic Bav450 GL OB 2.1 g/dL 07/06/2018 Comp Metabolic Sad262 A/ G Ratio 2.0 Ratio 07/06/2018 Comp Metabolic Lmu010 Os mo 280 mOsmo 07/06/2018 Cbc With [...] 29.3 pg 07/06/2018 Cbc With Differential Ord2 [place]% 10.5 % 07/06/2018 Cbc With Differential Ord2 [...] 1.89 K/ul 07/06/2018 Cbc With Differential Ord2 [place] ABS# 0.5 K/ul 07/06/2018 Cbc With Differential Ord2 Eos ABS# 0.3 K/ul 07/06/2018 Cbc With Differential Ord2 Baso ABS# 0.0 K/ul 07/06/2018 Total Psa Ord10 PSA 0.34 ng/mL 07/06/2018 Tsh Ord6 TSH (3rd IS) 0.02 uIU/mL 07/06/2018 Testosterone Fjv966 Testo 400.6 ng/dL 07/06/2018 Free T4 Mwd634 FREE T4 1.48 ng/dL 07/06/2018 [place] Spotted Fever Igg/Igm 55593 3 [place] SPOTTED FEVER IGM EIA . 04/04/2018 [place] Spotted Fever Igg/Igm 67423 3 RMSF, IGM 0.24 index 04/04/2018 [place] Spotted Fever Igg/Igm 23669 3 [place] MT SPOTTED FEVER IGG EIA FLEX . 04/04/2018 [place] Spotted Fever Igg/Igm 21147 3 RMSF, IGG SCREEN-FLEX Equivocal 04/04/2018 Partha Mtn Spot'D Fev Igg 158853 RMSF, IGG- TITER IFA <1:64 04/04/2018 Ehrlichia Chaffeensis Antibody Igg [id number] EHRLICHIA CHAFFEENSIS IGG <1:64 04/02/2018 Ehrlichia Chaffeensis Antibody Igm [id number] EHRLICHIA CHAFFEENSIS IGM < 1:16 04/02/2018 Lymes Disease Total Antibodies With Western Blot Refle x [id number] B. BURGDORFERI, IGG/IGM 0.23 03/30/2018 [place]ym[facility] Disease Total Antibodies With Western Blot Refle x [id number] 03/30/2018 Cbc With Differential Ord2 WBC 5.04 [...] 28.7 pg 03/28/2018 Cbc With Differential Ord2 [place]% 16.1 % 03/28/2018 Cbc With Differential Ord2 [...] 1.37 K/ul 03/28/2018 Cbc With Differential Ord2 [place] ABS# 0.8 K/ul 03/28/2018 Cbc With Differential Ord2 Eos ABS# 0.1 K/ul 03/28/2018 Cbc With Differential Ord2 Baso ABS# 0.0 K/ul 03/28/2018 Comp Metabolic Sbn573 NA 136 mEq/L 02/16/2018 Comp Metabolic Mfx070 K 3.9 mEq/L 02/16/2018 Comp Metabolic Llm156 CL 103 mEq/L 02/16/2018 Comp Metabolic Akw759 CO2 23.0 mEq/L 02/16/2018 Comp Metabolic Apb904 AN ION GAP 14 02/16/2018 Comp Metabolic Rca199 GL UCOSE 133 mg/dL 02/16/2018 Comp Metabolic Gss193 Cr eat 0.8 mg/dL 02/16/2018 Comp Metabolic Ukr830 eG FR 103 ml/min/1.73m2 01/26 Comp Metabolic Wip739 BUN 7 mg/dL 02/16/2018 Comp Metabolic Sed764 B/ C Ratio 8.4 Ratio 02/16/2018 Comp Metabolic Auj810 CA LCIUM 9.3 mg/dL 02/16/2018 Comp Metabolic Llh216 AL K PHOS 71 U/L 02/16/2018 Comp Metabolic Brs784 T(SGOT) 42 U/L 02/16/2018 Comp Metabolic Gpy334 AL T(SGPT) 69 U/L 02/16/2018 Comp Metabolic Kzy768 BI LI T 0.3 mg/dL 02/16/2018 Comp Metabolic Smm053 AL BUMIN 4.1 g/dL 02/16/2018 Comp Metabolic Ivd483 TP RO 6.3 g/dL 02/16/2018 Comp Metabolic Trw500 GL OB 2.2 g/dL 02/16/2018 Comp Metabolic Bjj651 A/ G Ratio 1.8 Ratio 02/16/2018 Comp Metabolic Fdd550 Os mo 272 mOsmo 02/16/2018 Free T4 Nzl496 FREE T4 1.85 ng/dL 02/16/2018 Ferritin Ord22 FERRITIN 161.7 ng/mL 02/16/2018 Tsh Ord6 TSH (3rd IS) 0.01 uIU/mL 02/16/2018 Test(s) Not Perfromed MBI2686 Test(s) Not Performed Test(s) Not Performed. See Below: 02/16/2018 Test(s) Not Perfromed [id number] TEST NAME CBC 02/16/2018 Test(s) Not Perfromed [id number] Rejection Reason No Suitable Specimen Receive d 02/16/2018 Test(s) Not Perfromed [id number] COMMENT Please Recollect Sample 02/16/2018 Test(s) Not Perfromed [id number] Spring Intern Fernando Goyal 02/16/2018 Tibc Ord40 Iron 138 [...] 26.4 pg 01/05/2018 Cbc With Differential Ord2 [place]% 11.9 % 01/05/2018 Cbc With Differential Ord2 [...] 2.08 K/ul 01/05/2018 Cbc With Differential Ord2 [place] ABS# 0.6 K/ul 01/05/2018 Cbc With Differential Ord2 Eos ABS# 0.2 K/ul 01/05/2018 Cbc With Differential Ord2 Baso ABS# 0.0 K/ul 01/05/2018 Ferritin Ord22 FERRITIN 5.7 ng/mL 12/06/2017 Tibc Ord40 Iron 33 ug/dl 12/06/2017 Tibc Ord40 UIBC 431 ug/dL 12/06/2017 Tibc Ord40 TIBC 464 ug/dL 12/06/2017 Tibc Ord40 Fe-%Sat 7.1 % 12/06/2017 Free T4 Oaf512 FREE T4 1.82 ng/dL 12/01/2017 Tsh Ord6 [...] 27.0 pg 12/01/2017 Cbc With Differential Ord2 [place]% 10.6 % 12/01/2017 Cbc With Differential Ord2 [...] 1.92 K/ul 12/01/2017 Cbc With Differential Ord2 [place] ABS# 0.4 K/ul 12/01/2017 Cbc With Differential Ord2 Eos ABS# 0.2 K/ul 12/01/2017 Cbc With Differential Ord2 Baso ABS# 0.0 K/ul 12/01/2017 Comp Metabolic Jnt929 NA 136 mEq/L 12/01/2017 Comp Metabolic Fsm604 K 4.6 mEq/L 12/01/2017 Comp Metabolic Lzn796 CL 102 mEq/L 12/01/2017 Comp Metabolic Uzq765 CO2 27.0 mEq/L 12/01/2017 Comp Metabolic Zfv740 AN ION GAP 12 12/01/2017 Comp Metabolic Bdz201 GL UCOSE 90 mg/dL 12/01/2017 Comp Metabolic Wsh652 Cr eat 0.7 mg/dL 12/01/2017 Comp Metabolic Yar662 eG FR 123 ml/min/1.73m2 03/2018 Comp Metabolic Ugw039 BUN 4 mg/dL 12/01/2017 Comp Metabolic Kgm346 B/ C Ratio 5.6 Ratio 12/01/2017 Comp Metabolic Gbq248 CA LCIUM 9.0 mg/dL 12/01/2017 Comp Metabolic Pfd966 AL K PHOS 67 U/L 12/01/2017 Comp Metabolic Dqv163 T(SGOT) 30 U/L 12/01/2017 Comp Metabolic Bii247 AL T(SGPT) 29 U/L 12/01/2017 Comp Metabolic Eda026 BI LI T 0.3 mg/dL 12/01/2017 Comp Metabolic Osm094 AL BUMIN 4.1 g/dL 12/01/2017 Comp Metabolic Kfh546 TP RO 6.1 g/dL 12/01/2017 Comp Metabolic Efu485 GL OB 2.0 g/dL 12/01/2017 Comp Metabolic Zzc827 A/ G Ratio 2.0 Ratio 12/01/2017 Comp Metabolic Yro737 Os mo 268 mOsmo 12/01/2017 Comp Metabolic Fez306 NA 136 mEq/L 02/16/2016 Comp Metabolic Bgq703 K 4.2 mEq/L 02/16/2016 Comp Metabolic Gfd274 CL 104 mEq/L 02/16/2016 Comp Metabolic Wuc848 CO2 20.0 mEq/L 02/16/2016 Comp Metabolic Wra003 AN ION GAP 16 02/16/2016 Comp Metabolic Ajp700 GL UCOSE 71 mg/dL 02/16/2016 Comp Metabolic Wlj159 Cr eat 0.8 mg/dL 02/16/2016 Comp Metabolic Sep475 eG FR 113 ml/min/1.73m2 01/26 Comp Metabolic Oqq563 BUN 7 mg/dL 02/16/2016 Comp Metabolic Zlt170 B/ C Ratio 9.1 Ratio 02/16/2016 Comp Metabolic Akf970 CA LCIUM 9.4 mg/dL 02/16/2016 Comp Metabolic Kvl872 AL K PHOS 57 U/L 02/16/2016 Comp Metabolic Zvy579 T(SGOT) 30 U/L 02/16/2016 Comp Metabolic Zyq500 AL T(SGPT) 27 U/L 02/16/2016 Comp Metabolic Jok488 BI LI T 0.2 mg/dL 02/16/2016 Comp Metabolic Fjk853 AL BUMIN 4.4 g/dL 02/16/2016 Comp Metabolic Djg425 TP RO 6.5 g/dL 02/16/2016 Comp Metabolic Mnc610 GL OB 2.1 g/dL 02/16/2016 Comp Metabolic Xps887 A/ G Ratio 2.1 Ratio 02/16/2016 Comp Metabolic Ycn471 Os mo 268 mOsmo 02/16/2016 Free T4 Lav964 FREE T4 1.20 ng/dL 02/16/2016 Cbc With [...] 30.2 pg 02/16/2016 Cbc With Differential Ord2 [place]% 9.6 % 02/16/2016 Cbc With Differential Ord2 [...] 1.50 K/ul 02/16/2016 Cbc With Differential Ord2 [place] ABS# 0.5 K/ul 02/16/2016 Cbc With Differential [...] 02/27/2018 Respiratory daytime hypersomnolence 02/27/2018 Respiratory snoring 0401/2018 Constitutional No recent illness 12/01/2017 Constitutional No [...] Effective Dates Notes Full Exam - General 1995 Constitutional general appearance Development: well developed 05/14/2019 [...] sounds 07/05/2018 None Full Exam - General 1995 Cardiovascular auscultation of heart Overall: no murmurs [...] Procedure Codes Date THER/PROPH/DIAG INJ SC/IM CPT-4: 84804 12/27/2018 VITAMIN B12 INJECTION CPT-4: J3420 12/27/2018 PPPS, SUBSEQ VISIT CPT- 4: G0439 09/17/2018 Vital Signs Date Vital 05/14/2019 Blood Pressure 1: 120/70 Code: 8480-6 BMI: 36.2 Code: 03600-2 Heart Rate 1: 65 bpm Height: 5'6" SpO2: 98% Weight: 224 lbs 03/12/2019 Blood Pressure 1: 130/76 Code: 8480-6 BMI: 38.6 Code: 55130-5 Heart Rate 1: 83 bpm Height: 5'6" SpO2: 99% Weight: 239 lbs 01/07/2019 Blood Pressure 1: 124/80 Code: 8480-6 BMI: 38.3 Code: 91899-8 Heart Rate 1: 88 bpm Height: 5'6" SpO2: 97% Weight: 237 lbs 12/27/2018 Blood Pressure 1: 122/80 Code: 8480-6 BMI: 38.6 Code: 96843-6 Heart Rate 1: 72 bpm Height: 5'6" SpO2: 98% Weight: 239 lbs 11/05/2018 Blood Pressure 1: 122/64 Code: 8480-6 BMI: 37.4 Code: 17898-8 Heart Rate 1: 66 bpm Height: 5'6" SpO2: 97% Weight: 232 lbs 09/27/2018 Blood Pressure 1: 92/66 Code: 8480-6 BMI: 37.9 Code: 94964-0 Heart Rate 1: 66 bpm Height: 5'6" SpO2: 98% Weight: 235 lbs 09/17/2018 Blood Pressure 1: 110/72 Code: 8480-6 BMI: 38.3 Code: 95980-7 Heart Rate 1: 77 bpm Height: 5'6" SpO2: 95% Waist Measure (cm): 102 cm Weight: 237 lbs 09/03/2018 Blood Pressure 1: 122/68 Code: 8480-6 BMI: 37.6 Code: 84880-2 Heart Rate 1: 78 bpm Height: 5'6" SpO2: 97% Weight: 233 lbs 07/05/2018 Blood Pressure 1: 94/62 Code: 8480-6 BMI: 36.8 Code: 44223-4 Heart Rate 1: 88 bpm Height: 5'6" SpO2: 99% Weight: 228 lbs 05/04/2018 Blood Pressure 1: 110/80 Code: 8480-6 BMI: 35.5 Code: 21159-3 Heart Rate 1: 80 bpm Height: 5'6" SpO2: 99% Weight: 220 lbs 03/28/2018 Blood Pressure 1: 110/72 Code: 8480-6 BMI: 35.0 Code: 19843-6 Heart Rate 1: 80 bpm Height: 5'6" SpO2: 98% Temperature: 36.2 (C ) / 97.1 (F) Weight: 217 lbs 02/27/2018 Blood Pressure 1: 136/76 Code: 8480-6 BMI: 36.0 Code: 92421-4 Heart Rate 1: 80 bpm Height: 5'6" SpO2: 98% Weight: 223 lbs 12/01/2017 Blood Pressure 1: 132/72 Code: 8480-6 BMI: 33.4 Code: 89989-9 Heart Rate 1: 82 bpm Height: 5'6" SpO2: 97% Weight: 207 lbs 09/29/2017 Blood Pressure 1: 124/68 Code: 8480-6 BMI: 32.1 Code: 38346-7 Heart Rate 1: 77 bpm Height: 5'6" SpO2: 98% Weight: 199 lbs 08/11/2017 Blood Pressure 1: 154/82 Code: 8480-6 BMI: 31.6 Code: 72277-3 Heart Rate 1: 75 bpm Height: 5'6" SpO2: 98% Weight: 196 lbs 06/09/2017 Blood Pressure 1: 148/88 Code: 8480-6 BMI: 28.6 Code: 73089-1 Heart Rate 1: 88 bpm Height: 5'6" SpO2: 98% Weight: 177 lbs 04/07/2017 Blood Pressure 1: 140/84 Code: 8480-6 BMI: 30.3 Code: 59796-2 Heart Rate 1: 81 bpm Height: 5'6" SpO2: 99% Weight: 188 lbs 11/17/2016 Blood Pressure 1: 130/72 Code: 8480-6 Heart Rate 1: 63 bpm Height: SpO2: 93% Weight: 11/10/2016 Blood Pressure 1: 128/86 Code: 8480-6 BMI: 30.3 Code: 41932-5 Heart Rate 1: 84 bpm Height: 5'6" SpO2: 96% Weight: 188 lbs 10/14/2016 Heigh t: 5'6" 09/16/2016 Blood Pressure 1: 130/80 Code: 8480-6 BMI: 30.3 Code: 78076-1 Heart Rate 1: 67 bpm Height: 5'6" SpO2: 99% Weight: 188 lbs 08/19/2016 Blood Pressure 1: 110/62 Code: 8480-6 BMI: 29.9 Code: 52928-8 Heart Rate 1: 70 bpm Height: 5'6" SpO2: 97% Weight: 185 lbs 06/17/2016 Blood Pressure 1: 112/68 Code: 8480-6 BMI: 27.6 Code: 04280-0 Heart Rate 1: 61 bpm Height: 5'6" SpO2: 98% Weight: 171 lbs 05/12/2016 Blood Pressure 1: 130/76 Code: 8480-6 BMI: 29.7 Code: 12421-5 Heart Rate 1: 103 bpm Height: 5'6" SpO2: 98% Weight: 184 lbs 02/16/2016 Blood Pressure 1: 140/82 Code: 8480-6 BMI: 28.7 Code: 52459-2 Heart Rate 1: 66 bpm Height: 5'6" SpO2: 99% Weight: 178 lbs 11/17/2015 Blood Pressure 1: 120/74 Code: 8480-6 BMI: 29.4 Code: 15995-3 Heart Rate 1: 90 bpm Height: 5'6" SpO2: 94% Weight: 182 lbs 08/28/2015 Blood Pressure 1: 128/76 Code: 8480-6 BMI: 27.9 Code: 30386-7 Heart Rate 1: 80 bpm Height: 5'6" SpO2: 98% Weight: 173 lbs 05/28/2015 Blood Pressure 1: 122/70 Code: 8480-6 BMI: 27.0 Code: 82910-8 Heart Rate 1: 74 bpm Height: 5'6" SpO2: 98% Weight: 167 lbs 04/23/2015 Blood Pressure 1: 110/60 Code: 8480-6 BMI: 27.0 Code: 41018-8 Heart Rate 1: 68 bpm Height: 5'6" [...] and Resolution ongoing 09/03/2018 None hypothyroid 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 [facility] Diagnosis: Chronic pain syndrome[ICD10: G89.4] Diagnosis: Hypothyroidism, unspecified[ICD10: E03.9] Leydi Jacobo MD, [facility] CPT-4: 01678 05/14/2019 ([id number]) 28403 EST. [facility] Diagnosis: Hypothyroidism, unspecified[ICD10: E03.9] Diagnosis: Chronic pain syndrome[ICD10: G89.4] Leydi Jacobo MD, [facility] CPT-4: 33825 03/12/2019 ([id number] 84314 EST. [facility] Diagnosis: Chronic pain syndrome[ICD10: G89.4] Diagnosis: Hypothyroidism, unspecified[ICD10: E03.9] Diagnosis: Encounter for screening for lipoid disorders[ICD10: Z13.220] Diagnosis: Major depressive disorder, recurrent, moderate[ICD10: F33.1] [facility] CPT-4: 86095 01/07/2019 ([phone] 87838 EST. [facility] Diagnosis: Obstructive sleep apnea (adult) (pediatric)[ICD10: G47.33] Diagnosis: Hypothyroidism, unspecified[ICD10: E03.9] Diagnosis: Vitamin B12 deficiency anemia, unspecified[ICD10: D51.9] Leydi Jacobo MD, [facility] CPT-4: 42274 12/27/2018 ([id number] 05615 EST. P AT[facility], LEVEL IV Diagnosis: Hypothyroidism, unspecified[ICD10: E03.9] Diagnosis: Major depressive disorder, recurrent, moderate[ICD10: F33.1] Diagnosis: Chronic pain syndrome[ICD10: G89.4] Leydi Jacobo MD, [facility] CPT-4: 05914 11/05/2018 ([id number]) 33373 EST. P ATIENT, LEVEL IV Diagnosis: Chronic pain syndrome[ICD10: G89.4] Diagnosis: Hypothyroidism, unspecified[ICD10: E03.9] Diagnosis: Other fatigue[ICD10: R53.83] Diagnosis: Other obesity due to excess calories[ICD10: E66.09] Diagnosis: Major depressive disorder, recurrent, moderate[ICD10: F33.1] Leydi Jacobo MD, [facility] CPT-4: 65092 09/27/2018 ([id number]) 91844 EST. P ATIENT, LEVEL III Diagnosis: Chronic pain syndrome[ICD10: G89.4] Leydi Jacobo MD, [facility] CPT-4: 02384 09/03/2018 ([id number]) 67596 EST. P ATIENT, LEVEL IV Diagnosis: Hypothyroidism, unspecified[ICD10: E03.9] Diagnosis: Major depressive disorder, recurrent, moderate[ICD10: F33.1] Diagnosis: Chronic pain syndrome[ICD10: G89.4] Diagnosis: Other male erectile dysfunction[ICD10: N52.8] Diagnosis: Other fatigue[ICD10: R53.83] Diagnosis: Encounter for screening for malignant neoplasm of prostate[ICD10: Z12.5] Leydi Jacobo MD, [facility] CPT-4: 10343 07/05/2018 ([id number]) 82471 EST. P ATIENT, LEVEL IV Diagnosis: Chronic pain syndrome[ICD10: G89.4] Diagnosis: Hypothyroidism, unspecified[ICD10: E03.9] Diagnosis: Major depressive disorder, recurrent, moderate[ICD10: F33.1] Leydi Jacobo MD, [facility] CPT-4: 09144 05/04/2018 81811 EST. PATIENT, LEVEL IV Diagnosis: Melena[ICD10: K92.1] Diagnosis: Other malaise[ICD10: R53.81] Diagnosis: Other fatigue[ICD10: R53.83] Diagnosis: Pain in unspecified joint[ICD10: M25.50] Diagnosis: Diarrhea, unspecified[ICD10: R19.7] Denae Jacobo MD, [facility] CPT-4: 00492 03/28/2018 ([id number]) 43151 EST. P ATIENT, LEVEL IV Diagnosis: Chronic pain syndrome[ICD10: G89.4] Diagnosis: Hypothyroidism, unspecified[ICD10: E03.9] Diagnosis: Other obesity due to excess calories[ICD10: E66.09] Diagnosis: Major depressive disorder, recurrent, moderate[ICD10: F33.1] Diagnosis: Obstructive sleep apnea (adult) (pediatric)[ICD10: G47.33] Leydi Jacobo MD, [facility] CPT-4: 21854 02/27/2018 84441 EST. PATIENT, LEVEL IV Diagnosis: Other specified hypothyroidism[ICD10: E03.8] Diagnosis: Chronic pain syndrome[ICD10: G89.4] Diagnosis: Major depressive disorder, recurrent, moderate[ICD10: F33.1] Denae Jacobo MD, [facility] CPT-4: 61259 12/01/2017 ([id number]) 22682 EST. P ATIENT, LEVEL IV Diagnosis: Chronic pain syndrome[ICD10: G89.4] Diagnosis: Alcohol dependence, uncomplicated[ICD10: F10.20] Diagnosis: Major depressive disorder, recurrent, moderate[ICD10: F33.1] Leydi Jacobo MD, [facility] CPT-4: 42560 09/29/2017 ([id number]) 09855 EST. P ATIENT, LEVEL IV Diagnosis: Chronic pain syndrome[ICD10: G89.4] Diagnosis: Alcohol dependence, uncomplicated[ICD10: F10.20] Diagnosis: Major depressive disorder, recurrent, moderate[ICD10: F33.1] Leydi Jacobo MD, [facility] CPT-4: 19103 08/11/2017 ([id number]) 59153 EST. P ATIENT, LEVEL III Diagnosis: Chronic pain syndrome[ICD10: G89.4] Diagnosis: Major depressive disorder, recurrent, moderate[ICD10: F33.1] Leydi Jacobo MD, [facility] CPT-4: 33603 06/09/2017 ([id number]) 17989 EST. [facility]: Chronic pain syndrome[ICD10: G89.4] Diagnosis: Pain in left knee[ICD10: M25.562] Leydi Jacobo MD, [facility] CPT- 4: 17113 04/07/2017 [id number] EST. PATIENT, LEVEL II Diagnosis: Superficial foreign body of left upper arm, initial encounter[ICD10: S40.852A] Diagnosis: Cellulitis of left upper limb[ICD10: L03.114] Leydi Jacobo MD, [facility] CPT-4: 52944 11/17/2016 [id number] EST. PATIENT, LEVEL II Diagnosis: Cellulitis of left upper limb[ICD10: L03.114] Leydi Jacobo MD, [facility] CPT-4: 84503 11/10/2016 ([id number]) 81439 EST. [facility] Diagnosis: Chronic pain syndrome[ICD10: G89.4] Diagnosis: Major depressive disorder, recurrent, moderate[ICD10: F33.1] Leydi Jacobo MD, [facility] CPT-4: 71822 10/14/2016 55136 EST. PATIENT, LEVEL IV Diagnosis: Psychophysiologic insomnia[ICD10: F51.04] Diagnosis: Major depressive disorder, recurrent, moderate[ICD10: F33.1] Diagnosis: Alcohol dependence, uncomplicated[ICD10: F10.20] Diagnosis: Chronic pain syndrome[ICD10: G89.4] Leydi Jacobo MD, [facility] CPT-4: 35569 09/16/2016 ([id number]) 71458 EST. P ATIENT, LEVEL III Diagnosis: Pain in left shoulder[ICD10: M25.512] Diagnosis: Major depressive disorder, recurrent, moderate[ICD10: F33.1] Diagnosis: Psychophysiologic insomnia[ICD10: F51.04] Leydi Jacobo MD, [facility] CPT-4: 21750 08/19/2016 ([id number]) 73307 EST. [facility] Diagnosis: Gastro-esophageal reflux disease without esophagitis[ICD10: K21.9] Diagnosis: Hypothyroidism, unspecified[ICD10: E03.9] Leydi Jacobo MD, [facility] CPT-4: 27783 06/17/2016 ([id number]) 46022 EST. P ATIENT, LEVEL IV Diagnosis: Gastro-esophageal reflux disease without esophagitis[ICD10: K21.9] Diagnosis: Hypothyroidism, unspecified[ICD10: E03.9] Diagnosis: Major depressive disorder, recurrent, moderate[ICD10: F33.1] Leydi Jacobo MD, [facility] CPT-4: 78965 05/12/2016 ([id number]) 11263 EST. P ATIENT, LEVEL III Diagnosis: Cervicalgia[ICD10: M54.2] Diagnosis: Hypothyroidism, unspecified[ICD10: E03.9] Diagnosis: Other male erectile dysfunction[ICD10: N52.8] Leydi Jacobo MD, [facility] CPT-4: 87683 02/16/2016 ([id number]) 33439 EST. P ATIENT, LEVEL III Diagnosis: Lumbago with sciatica, unspecified side[ICD10: M54.40] Diagnosis: Other male erectile dysfunction[ICD10: N52.8] Leydi Jacobo MD, [facility] CPT-4: 88583 11/17/2015 ([id number]) 84173 EST. P ATIENT, LEVEL III Diagnosis: Lumbago with sciatica, unspecified side[ICD10: M54.40] Diagnosis: Hypothyroidism, unspecified[ICD10: E03.9] Diagnosis: Other male erectile dysfunction[ICD10: N52.8] Leydi Jacobo MD, [facility] CPT-4: 70499 08/28/2015 ([id number]) 20316 EST. P ATIENT, LEVEL III Diagnosis: Back pain, chronic[ICD9: 724.5] Diagnosis: Depression[ICD9: 311] Diagnosis: Hypothyroid[ICD9: 244.9] Diagnosis: Bilateral calf pain[ICD9: 729.5] Julieta Jacobo MD, [facility] CPT-4: 87921 05/28/2015 ([id number]) OFFICE VISI T, NEW - LEVEL 4 Diagnosis: Back pain, chronic[ICD9: 724.5] Diagnosis: Depression[ICD9: 311] Diagnosis: Hypothyroid[ICD9: 244.9] [facility] CPT-4: 45595 04/23/2015 Plan of Care Planned Activity Notes [...] termination from this medical practice. 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 03/12/2019 Appointment: Leydi Hightower WPtel: [address] [place], [place] [id number] [place] [address] (30 min) Complex 03/12/2019 Patient Education: Patient Medication Summary Completed 03/12/2019 Appointment: Leydi Hightower WPtel: [address] [place] [address] (30 min) Complex 03/05/2019 Visit Plan: Chronic [...] thyroid ultrasound 01/07/2019 App[facility]ment[facility] [phone] [phone] [place] (30 min) Complex 01/07/2019 Patient Education: [...] office 12/27/2018 Appointment: [facility]ightower [facility] [phone] [phone] (15 min) Moderate 12/27/2018 Patient Education: Patient [...] medications. 11/05/2018 Appointment: [facility] Hightower [facility] [phone] [phone] [place] (30 min) Complex 11/05/2018 Patient Education: Patient [...] of control. 09/27/2018 Appointment: Leydi Hightower WPtel: [facility] [place][note 2] [facility] [place] [address] (15 min) Moderate 09/27/2018 Patient Education: Patient [...] care surrogate. 09/17/2018 Appointment: Leydi Hightower WPtel: [facility] [place][note 2][address] [phone] [facility] - Annual Wellness Visit 09/17/2018 Patient Education: Patient Medication Summary Completed 09/17/2018 Visit Plan: Chronic Pain Syndrome - pt has chronic pain - has been maintained on current medications, has not sought out other medications, only uses PRN pain medications as directed, and understands the consequences of over-medication. 09/03/2018 Appointment: Leydi Hightower WPtel: [facility] [place][note 2][address] [phone] (30 min) Complex 09/03/2018 Patient Education: Patient [...] exposure. No change in current medications. Fatigue-weight jfcu-MN-ifrgx labs including testosterone level 07/05/2018 Visit Plan: [...] exposure. No change in current medications. Fatigue-weight sgiy-BO-xsqcd labs including testosterone level 07/05/2018 Appointment: Leydi Hightower WPtel: [facility] [place]note 2[facility] [phone] [place] (15 min) Moderate 07/05/2018 Patient Education: [...] BID 05/04/2018 Appointment: [facility] Hightower [facility] [phone] [phone] (15 min) Moderate 05/04/2018 Patient Education: [...] stomach pain. 03/28/2018 Appointment: Denae Martínez WPtel[facility] [phone] [facility] [place] (30 min) Complex 03/28/2018 Appointment: [...] this time. 02/27/2018 Appointment: Le[phone] (15 min) Moderate 02/27/2018 Patient Education: [...] of control. 12/01/2017 Appointment: [id number] (30 min) Complex 12/01/2017 Patient Education: [...] outpatient treatment 09/29/2017 Appointment: Leydi Hightower WPtel: [facility] [phone] (30 min) Complex 09/29/2017 Patient Education: [...] cons ider 08/11/2017 Appointment: Leydi Hightower WPtel: [facility] [place]8 [phone] (30 min) Complex 08/11/2017 Patient Education: [...] current medications. 06/09/2017 Appointment: Leydi Hightower WPtel: [facility] [place]1 [phone] (30 min) Complex 06/09/2017 Patient Education: [...] completely resolve 11/17/2016 Appointment: Leydi Hightower WPtel: [address] [place], [place] [phone] (30 min) Complex 11/17/2016 Patient Education: Patient [...] in pain. 11/10/2016 Appointment: Leydi Hightower [facility]Ptel: [facility] [place][note 2]2 [phone] (30 min) Complex 11/10/2016 Patient Education: [...] of plan. 10/14/2016 Appointment: Leydi Hightower WPtel: [address] [place], [place] [phone] (30 min) Complex 10/14/2016 Patient Education: Patient [...] will try 09/16/2016 Appointment: Leydi Hightower WPtel: [facility] [place][note 2]9 [phone] (30 min) Complex 09/16/2016 Patient Education: Patient Medication Summary Completed 09/16/2016 Visit Plan: Left shoulder and elbow pain-xray shoulder and elbow Twrsdasjzc-lxfcabmi-nxllurjyxhrq-d/c trazodone-start remeron at bedtime Pt has been [...] this patient. 08/19/2016 Appointment: Leydi Hightower WPtel: [address] [place], [place] [phone] (30 min) Complex 08/19/2016 Patient Education: Patient [...] Obesity Completed 06/17/2016 Appointment[phone] [phone] (30 min) Complex 06/09/2016 Visit Plan: [...] control. 05/12/2016 Appointment: [phone] [phone] (30 min) Complex 05/12/2016 Patient Education: [...] in office. 05/28/2015 Appointment: Leydi Hightower WPtel: [place] [facility] [place]note [phone] (30 min) Complex 05/28/2015 Patient Education: [...] Care Plan: COMPLETE CBC AUTOMATED LOINC : 21155-7 Ordered 04/23/2015 Instructions Comment . Chronic Back pain - the patient [...] termination from this medical practice. Hypothyroidism- seeing equipment maintenance supervisor . Chronic pain-manag ed by Dr Perez-not happy with current treatments and medications-instructed him I will speak with Dr Jacobo for her recommendations Hypothyroidism-no change in medications ED-samples of cialis for prn use . Hypothyroidism -re sierra to Noemi Yan at [facility] Chronic Pain Syndrome - pt has chronic [...] of the lesion, increase in pain. . Esophageal Reflux - the patient has [...] based on previous levels of control. . Abscess/Cellulitis - The patient was instructed in appropriate wound care. The patient was instructed to use the antibiotic ointment as per RX. The patient is to call for any change in symptoms, increase in size of the lesion, increase in pain. STOP TRAZODONE START REMERON AT BEDTIME . Left shoulder and elbow pain-xray shou lder and elbow Ulwlwwbkpb-ssuidcsc-grsglxkbsjvo-d/c trazodone-start remeron at bedtime Pt has been [...] appropriately prescribed for this patient. . Chronic Pain Syndr ome - pt [...] exposure. No change in current medications. Fatigue-weight jyjm-QX-dunkz labs including testosterone level . Chronic Pain [...] exposure. No change in current medications. Fatigue-weight yqlz-TX-zcaqx labs including testosterone level . 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 Chronic Pain Syndrome [...]
--- OUTSIDE RECORDS SUMMARY | 2020-03-17 14:48 | XMS REPORT | CCD ---
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 Name Role Phone PP Unavailable CCM Unavailable Summary Purpose Interface Exchange Insurance Providers Payer name Policy type / Coverage type Covered alliance party ID Effective Begin Date Effective End Date WPS Medicare Part B Medicare Part B [id number] Unknown [facility] icare Part B [id number] Un known Family history Father Diagnosis Age At Onset Colon cancer Unknown Social History Social History Element Codes Description Effective Dates Employment Unknown [place] nt[place] unemployed Before disability 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 On Disability Unknown Yes 09/27/2018 Marital status Unknown D ivorced 04/23/[address]: 287557375 Never smoker 04/23/[address]: 159717 Currently drinks alcohol occasionally drinks 04/23/2015 Allergies, [...] Instructions doxycycline hyclate 100 mg tablet RxNorm: 9407174 1 Tablet(s) PO BID 05/14/2019 05/23/2019 Active oxymorphone 5 mg tablet RxNorm: 330703 1 Tablet(s) PO Q6 PRN 05/14/2019 07/12/2019 Active morphine 30 mg table t, crush resistant, extended release RxNorm: 1378270 1 Tablet(s) PO BID 05/14/2019 06/12/2019 Active morphine 30 mg table t, crush resistant, extended release RxNorm: 0520953 1 Tablet(s) PO BID 05/07/2019 05/13/2019 Inactive levothyroxine 200 mc g tablet RxNorm: 231572 1 Tablet(s) PO daily TAKE ONE TABLET BY MOUTH DAILY 03/12/2019 09/07/2019 Active Updated script trazodone 50 mg tablet RxNorm: 421472 1.5 Tablet(s) PO QHS TAKE ONE TABLET BY MOUTH EVERY NIGHT AT BEDTIME AND ONE-HALF TABLET BY MOUTH NEEDED 03/12/2019 06/09/2019 Active morphine 30 mg table t, crush resistant, extended release RxNorm: 8200612 1 Tablet(s) PO BID 03/12/2019 04/10/2019 Inactive oxymorphone 5 mg tablet RxNorm: 252513 1 Tablet(s) PO Q6 PRN 03/12/2019 05/10/2019 Inactive doxycycline hyclate 100 mg tablet RxNorm: 3145779 1 Tablet(s) PO BID 03/12/2019 03/21/2019 Inactive morphine 30 mg table t, crush resistant, extended release RxNorm: 0843583 1 Tablet(s) PO BID 03/06/2019 03/11/2019 Inactive tizanidine 4 mg tablet RxNorm: 593777 TAKE ONE TABLET BY MOUTH THREE TIMES A D AY NEEDED 02/26/2019 05/26/2019 Active diclofenac sodium 75 mg tablet,delayed release RxNorm: 985104 TAKE ONE TABLET BY MO [facility] TWICE A DAY 02/18/2019 05/18/2019 Active Protonix 40 mg table t,delayed release RxNorm: 186828 TAKE ONE TABLET BY MO UTH DAILY 02/06/2019 09/03/2019 Ac tive trazodone 50 mg tablet RxNorm: 786510 TAKE ONE TABLET BY MOUTH EVERY NIGHT AT BEDTIME AND ONE-HALF TABLET BY MOUTH NEEDED 01/14/2019 03/11/2019 Inactive oxymorphone 5 mg tablet RxNorm: 262608 1 Tablet(s) PO Q6 PRN 01/07/2019 03/07/2019 Inactive morphine 30 mg table t, crush resistant, extended release RxNorm: 5202291 1 Tablet(s) PO BID 01/07/2019 03/05/2019 Inactive doxycycline hyclate 100 mg tablet RxNorm: 4610639 1 Tablet(s) PO BID 01/01/2019 01/10/2019 Inactive cyanocobalamin (vit B-12) 1,000 mcg/mL injection solution RxNorm: 389928 1 Milliliter(s) Inj 12/27/2018 12/27/2018 Inactive baclofen 10 mg tablet RxNorm: 055706 TAKE ONE TABLET BY MOUTH THREE TIMES A D AY NEEDED 11/29/2018 03/28/2019 Inactive Request already responded t o by other means (e.g. phone or fax) baclofen 10 mg tablet RxNorm: 663124 Tablet(s) TAKE ONE TABLET BY MOUTH THREE TIMES A DAY NEEDED 11/28/2018 11/28/2018 Inactive doxycycline hyclate 100 mg tablet RxNorm: 4159289 1 Tablet(s) PO BID 11/14/2018 11/23/2018 Inactive trazodone 50 mg tablet RxNorm: 863780 TAKE ONE TABLET BY MOUTH EVERY NIGHT AT BEDTIME AND ONE-HALF TABLET BY MOUTH NEEDED 11/12/2018 12/21/2018 Inactive tizanidine 4 mg tablet RxNorm: 734241 TAKE ONE TABLET BY MOUTH THREE TIMES A D AY NEEDED 10/22/2018 02/18/2019 Inactive diclofenac sodium 75 mg tablet,delayed release RxNorm: 601478 TAKE ONE TABLET BY [facility] TWICE A DAY 10/15/2018 02/11/2019 Inactive Lasix 20 mg tablet RxNorm: 413228 1 Tablet(s) PO daily as needed 10/10/2018 11/08/2018 In active potassium chloride E R 10 mEq tablet,extended release RxNorm: 249434 1 Tablet(s) PO daily as needed to take with lasix for inceased edema 10/10/2018 11/08/2018 Inactive potassium chloride E R 10 mEq tablet,extended release RxNorm: 993513 1 Tablet(s) PO daily as needed to take with lasix for inceased edema 10/10/2018 10/09/2018 Inactive Lasix 20 mg tablet RxNorm: 309397 1 Tablet(s) PO daily as needed 10/10/2018 10/09/2018 In active doxycycline hyclate 100 mg tablet RxNorm: 2255812 1 Tablet(s) PO BID 09/27/2018 10/10/2018 Inactive Remeron 15 mg tablet RxNorm: 237814 1.5 Tablet(s) PO QPM TAKE ONE TABLET BY MOUTH EVERY NIGHT AT BEDTIME 09/18/2018 12/16/2018 Inactive baclofen 10 mg tablet RxNorm: 259593 TAKE ONE TABLET BY MOUTH THREE TIMES A D AY NEEDED 09/12/2018 11/10/2018 Inactive Remeron 15 mg tablet RxNorm: 714964 1.5 Tablet(s) PO QPM TAKE ONE TABLET BY MOUTH EVERY NIGHT AT BEDTIME 09/03/2018 09/17/2018 Inactive oxymorphone 5 mg tablet RxNorm: 847743 1 Tablet(s) PO Q6 PRN 09/03/2018 11/01/2018 Inactive morphine 30 mg table t, crush resistant, extended release RxNorm: 4332268 1 Tablet(s) PO BID 09/03/2018 11/01/2018 Inactive trazodone 50 mg tablet RxNorm: 659883 TAKE ONE TABLET BY MOUTH EVERY NIGHT AT BEDTIME AND ONE-HALF TABLET BY MOUTH NEEDED 09/03/2018 10/12/2018 Inactive tizanidine 4 mg tablet RxNorm: 829349 TAKE ONE TABLET BY MOUTH THREE TIMES A D AY NEEDED 08/20/2018 10/18/2018 Inactive Protonix 40 mg table t,delayed release RxNorm: 641133 TAKE ONE TABLET BY MO UTH DAILY 08/10/2018 02/05/2019 In active Carafate 1 gram tablet RxNorm: 303881 TAKE ONE TABLET BY MOUTH BEFORE MEALS AN D AT BEDTIME NEEDED FOR HEARTBURN 07/31/2018 12/27/2018 Inactive Protonix 40 mg table t,delayed release RxNorm: 537165 1 Tablet(s) BID 07/24/2018 07/23/2018 Inactive Protonix 40 mg table t,delayed release RxNorm: 819812 1 Tablet(s) daily 07/24/2018 08/09/2018 In active liothyronine 5 mcg t ablet RxNorm: 266033 TAKE ONE TABLET BY MO UTH DAILY 07/19/2018 01/09/2019 In active baclofen 10 mg tablet RxNorm: 516427 TAKE ONE TABLET BY MOUTH THREE TIMES A D AY NEEDED 07/12/2018 09/09/2018 Inactive levothyroxine 175 mc g tablet RxNorm: 434987 1 Tablet(s) PO daily 07/11/2018 03/11/2019 Inactive Vitamin D2 50,000 un it capsule RxNorm: 2080091 1 Capsule(s) PO QW 07/11/2018 10/02/2018 Inactive trazodone 50 mg tablet RxNorm: 334773 TAKE ONE TABLET BY MOUTH EVERY NIGHT AT BEDTIME AND ONE-HALF TABLET BY MOUTH NEEDED 07/11/2018 08/19/2018 Inactive Vitamin D2 50,000 un it capsule RxNorm: 5102331 1 Capsule(s) PO QW 07/11/2018 07/10/2018 Inactive morphine 30 mg table t, crush resistant, extended release RxNorm: 5608970 1 Tablet(s) PO BID 07/05/2018 09/02/2018 Inactive oxymorphone 5 mg tablet RxNorm: 488389 1 Tablet(s) PO Q6 PRN 07/05/2018 09/02/2018 Inactive bupropion HCl XL 300 mg 24 hr tablet, extended release RxNorm: 955912 TAKE ONE TABLET BY MOUTH DAILY 06/27/2018 12/23/2018 Inactive Remeron 15 mg tablet RxNorm: 910381 TAKE ONE TABLET BY MOUTH EVERY NIGHT AT BEDTIME 06/27/2018 09/02/2018 Inactive tizanidine 4 mg tablet RxNorm: 133553 TAKE ONE TABLET BY MOUTH THREE TIMES A D AY NEEDED 06/20/2018 08/18/2018 Inactive doxycycline hyclate 100 mg tablet RxNorm: 7743002 1 Tablet(s) PO BID 06/18/2018 07/01/2018 Inactive Protonix 40 mg table t,delayed release RxNorm: 259871 TAKE ONE TABLET BY MO UTH DAILY 06/11/2018 07/23/2018 In active doxycycline hyclate 100 mg tablet RxNorm: 7693834 1 Tablet(s) PO BID 05/22/2018 06/04/2018 Inactive baclofen 10 mg tablet RxNorm: 735080 TAKE ONE TABLET BY MOUTH THREE TIMES A D AY NEEDED 05/14/2018 07/11/2018 Inactive diclofenac sodium 75 mg tablet,delayed release RxNorm: 038565 TAKE ONE TABLET BY [facility] TWICE A DAY 05/07/2018 10/03/2018 Inactive oxymorphone 5 mg tablet RxNorm: 725593 1 Tablet(s) PO Q6 PRN 05/04/2018 07/02/2018 Inactive morphine 30 mg table t, crush resistant, extended release RxNorm: 7071354 1 Tablet(s) PO BID 05/04/2018 07/02/2018 Inactive doxycycline hyclate 100 mg tablet RxNorm: 925379 1 Tablet(s) PO BID 04/24/2018 04/23/2018 Inactive doxycycline hyclate 100 mg tablet RxNorm: 0291597 1 Tablet(s) PO BID 04/24/2018 05/03/2018 Inactive baclofen 10 mg tablet RxNorm: 598540 TAKE ONE TABLET BY MOUTH THREE TIMES A D AY NEEDED 04/13/2018 05/12/2018 Inactive trazodone 50 mg tablet RxNorm: 061634 TAKE ONE TABLET BY MOUTH EVERY NIGHT AT BEDTIME AND ONE-HALF TABLET BY MOUTH NEEDED 04/09/2018 06/07/2018 Inactive Questran 4 gram powd er for susp in a packet RxNorm: 341581 1 packet PO BID 04/06/2018 06/04/2018 In active Questran 4 gram powd er for susp in a packet RxNorm: 307587 1 packet PO BID 04/06/2018 04/05/2018 In active Carafate 1 gram tablet RxNorm: 681918 1 Tablet(s) PO AC & HS as needed for hea rtburn 03/28/2018 04/26/2018 Inactive baclofen 10 mg tablet RxNorm: 350469 TAKE ONE TABLET BY MOUTH THREE TIMES A D AY NEEDED 03/16/2018 04/12/2018 Inactive Protonix 40 mg table t,delayed release RxNorm: 737927 TAKE ONE TABLET BY [facility] DAILY 03/16/2018 06/10/2018 In active oxymorphone 5 mg tablet RxNorm: 878611 1 Tablet(s) PO Q6 PRN 02/27/2018 04/27/2018 Inactive morphine 30 mg table t, crush resistant, extended release RxNorm: 3903358 1 Tablet(s) PO BID 02/27/2018 04/27/2018 Inactive Belviq XR 20 mg tabl et,extended release RxNorm: 8655659 1 Tablet(s) PO daily 02/27/2018 01/06/2019 In active levothyroxine 100 mc g tablet RxNorm: 285577 1 Tablet(s) PO daily 02/27/2018 07/10/2018 Inactive take with 88mcg to = 188mcg daily levothyroxine 88 mcg tablet RxNorm: 140161 1 Tablet(s) PO daily 02/27/2018 07/10/2018 Inactive take with 100mcg to = 188mcg daily morphine 30 mg table t, crush resistant, extended release RxNorm: 7368266 1 Tablet(s) PO BID 02/14/2018 02/26/2018 Inactive levothyroxine 200 mc g tablet RxNorm: 028098 Tablet(s) TAKE ONE TA BLET BY MOUTH DAILY 01/18/2018 02/26/2018 Inactive Updated script baclofen 10 mg tablet RxNorm: 788946 Tablet(s) TAKE ONE TABLET BY MOUTH THREE TIMES A DAY NEEDED 01/15/2018 02/13/2018 Inactive morphine 30 mg table t, crush resistant, extended release RxNorm: 0645094 1 Tablet(s) PO BID 01/15/2018 02/13/2018 Inactive tizanidine 4 mg tablet RxNorm: 747953 TAKE ONE TABLET BY MOUTH THREE TIMES A D AY NEEDED 01/02/2018 04/01/2018 Inactive Request already responded t o by other means (e.g. phone or fax) bupropion HCl XL 300 mg 24 hr tablet, extended release RxNorm: 514280 TAKE ONE TABLET BY MOUTH DAILY 12/29/2017 06/26/2018 Inactive Tamiflu 75 mg capsule RxNorm: 168168 1 Capsule(s) PO BID 12/27/2017 12/31/2017 Inactive Tamiflu 75 mg capsule RxNorm: 964804 1 Capsule(s) PO BID 12/27/2017 12/26/2017 Inactive tizanidine 4 mg tablet RxNorm: 867936 1 Tablet(s) PO TID as needed 12/25/2017 01/01/2018 Inactive levothyroxine 175 mc g tablet RxNorm: 635221 1 Tablet(s) PO daily 12/14/2017 12/13/2017 Inactive levothyroxine 175 mc g tablet RxNorm: 806301 1 Tablet(s) PO daily 12/14/2017 01/17/2018 Inactive baclofen 10 mg tablet RxNorm: 442425 Tablet(s) TAKE ONE TABLET BY MOUTH THREE TIMES A DAY NEEDED 12/13/2017 01/11/2018 Inactive baclofen 10 mg tablet RxNorm: 969101 TAKE ONE TABLET BY MOUTH THREE TIMES A D AY NEEDED 12/13/2017 12/12/2017 Inactive morphine 30 mg table t, crush resistant, extended release RxNorm: 5993392 1 Tablet(s) PO BID 12/12/2017 01/14/2018 Inactive clonazepam 1 mg tablet RxNorm: 466220 1/2 Tablet(s) PO daily 12/01/2017 08/27/2018 Inactive trazodone 50 mg tablet RxNorm: 480257 1/2 to 1 Tablet(s) QHS as needed 12/01/2017 03/30/2018 In active Opana ER 15 mg table t, crush resistant, extended release RxNorm: 674256 1 Tablet(s) PO Q12H 12/01/2017 02/13/2018 Inactive oxymorphone 5 mg tablet RxNorm: 657936 1 Tablet(s) PO Q6 PRN 12/01/2017 02/26/2018 Inactive Remeron 15 mg tablet RxNorm: 379521 Tablet(s) TAKE ONE TABLET BY MOUTH EVERY NIGHT AT BEDTIME 12/01/2017 02/28/2018 Inactive trazodone 50 mg tablet RxNorm: 780651 1/2 Tablet(s) as needed 1 Tablet(s) PO Q HS 12/01/2017 11/30/2017 In active clonazepam 1 mg tablet RxNorm: 404402 1/2 Tablet(s) PO daily 11/30/2017 11/30/2017 Inactive Remeron 15 mg tablet RxNorm: 587675 TAKE ONE TABLET BY MOUTH EVERY NIGHT AT BEDTIME 11/29/2017 11/30/2017 Inactive levothyroxine 200 mc g tablet RxNorm: 122717 TAKE ONE TABLET BY MO UTH DAILY 11/15/2017 12/13/2017 In active baclofen 10 mg tablet RxNorm: 543125 TAKE ONE TABLET BY MOUTH THREE TIMES A D AY NEEDED 11/07/2017 12/06/2017 Inactive diclofenac sodium 75 mg tablet,delayed release RxNorm: 496331 1 Tablet(s) PO BID 11/07/2017 05/05/2018 In active liothyronine 5 mcg t ablet RxNorm: 750944 TAKE ONE TABLET BY MO UTH DAILY 10/27/2017 07/18/2018 In active tizanidine 4 mg tablet RxNorm: 010072 1 Tablet(s) PO TID as needed 10/18/2017 12/16/2017 Inactive oxymorphone 5 mg tablet RxNorm: 813244 1 Tablet(s) PO Q6 PRN 09/29/2017 11/27/2017 Inactive morphine 30 mg table t, crush resistant, extended release RxNorm: 1709265 1 Tablet(s) PO BID 09/29/2017 11/28/2017 Inactive baclofen 10 mg tablet RxNorm: 901936 1 Tablet(s) PO TID as needed 09/11/2017 10/10/2017 Inactive baclofen 10 mg tablet RxNorm: 246091 1 Tablet(s) PO TID as needed 08/11/2017 09/09/2017 Inactive Opana ER 15 mg table t, crush resistant, extended release RxNorm: 950955 1 Tablet(s) PO Q12H 08/11/2017 09/28/2017 Inactive Remeron 15 mg tablet RxNorm: 972342 TAKE ONE TABLET BY MOUTH EVERY NIGHT AT BEDTIME 08/02/2017 10/30/2017 Inactive oxymorphone 5 mg tablet RxNorm: 361296 1 Tablet(s) PO Q6 PRN 08/02/2017 09/28/2017 Inactive Opana ER 5 mg tablet , crush resistant, extended release RxNorm: 914354 1 Tablet(s) PO Q6 PRN 08/01/2017 08/10/2017 Inactive Protonix 40 mg table t,delayed release RxNorm: 336966 TAKE ONE TABLET BY MO UTH DAILY 06/26/2017 06/25/2017 In active Protonix 40 mg table t,delayed release RxNorm: 852050 TAKE ONE TABLET BY MO UTH DAILY 06/26/2017 02/05/2019 In active bupropion HCl XL 300 mg 24 hr tablet, extended release RxNorm: 851170 TAKE ONE TABLET BY MOUTH DAILY 06/13/2017 12/09/2017 Inactive tizanidine 4 mg tablet RxNorm: 861478 1 Tablet(s) PO TID as needed 06/13/2017 06/12/2017 Inactive tizanidine 4 mg tablet RxNorm: 837195 1 Tablet(s) PO TID as needed 06/13/2017 09/10/2017 Inactive baclofen 10 mg tablet RxNorm: 597228 1 Tablet(s) PO TID as needed 06/13/2017 07/12/2017 Inactive Opana ER 15 mg table t, crush resistant, extended release RxNorm: 816278 1 Tablet(s) PO Q12H 06/09/2017 08/07/2017 Inactive Opana ER 5 mg tablet , crush resistant, extended release RxNorm: 080483 1 Tablet(s) PO Q6 PRN 06/09/2017 07/31/2017 Inactive diclofenac sodium 75 mg tablet,delayed release RxNorm: 227502 1 Tablet(s) PO BID 06/09/2017 09/06/2017 In active clonazepam 1 mg tablet RxNorm: 851374 1/2 Tablet(s) PO daily 05/24/2017 11/18/2017 Inactive bupropion HCl XL 300 mg 24 hr tablet, extended release RxNorm: 521378 TAKE ONE TABLET BY MOUTH DAILY 03/16/2017 06/12/2017 Inactive clonazepam 1 mg tablet RxNorm: 128813 1/2 Tablet(s) PO daily 02/22/2017 05/18/2017 Inactive Remeron 15 mg tablet RxNorm: 850858 TAKE ONE TABLET BY MOUTH EVERY NIGHT AT BEDTIME 02/06/2017 2017 Inactive Protonix 40 mg table t,delayed release RxNorm: 646460 TAKE ONE TABLET BY MO [facility] DAILY 01/26/2017 06/24/2017 In active mupirocin 2 % topica l ointment RxNorm: 413018 1 Application TOP BID 01/12/2017 01/18/2017 Inactive Bactrim DS 800 mg-16 0 mg tablet RxNorm: 223466 1 Tablet(s) PO BID 11/17/2016 11/23/2016 Inactive mupirocin 2 % topica l ointment RxNorm: 407282 1 Application TOP BID 11/10/2016 11/16/2016 Inactive Bactrim DS 800 mg-16 0 mg tablet RxNorm: 007887 1 Tablet(s) PO BID 11/10/2016 11/16/2016 Inactive bupropion HCl XL 300 mg 24 hr tablet, extended release RxNorm: 089048 TAKE ONE TABLET BY MOUTH DAILY 11/07/2016 03/06/2017 Inactive liothyronine 5 mcg t ablet RxNorm: 484809 1 Tablet(s) PO daily 11/01/2016 10/26/2017 Inactive levothyroxine 200 mc g tablet RxNorm: 376638 1 Tablet(s) PO daily 10/04/2016 09/28/2017 Inactive clonazepam 1 mg tablet RxNorm: 598198 1/2 Tablet(s) PO daily 09/21/2016 03/18/2017 Inactive clonazepam 1 mg tablet RxNorm: 010497 1/2 Tablet(s) PO daily 09/16/2016 09/20/2016 Inactive Abilify 2 mg tablet RxNorm: 345118 1 Tablet(s) PO daily 09/16/2016 10/13/2016 Inactive trazodone 50 mg tablet RxNorm: 713153 1/2 Tablet(s) as needed 1 Tablet(s) PO Q HS 09/16/2016 01/13/2017 In active morphine 15 mg immed iate release tablet RxNorm: 927110 1 Tablet(s) PO Q6 PRN 09/16/2016 04/06/2017 In active baclofen 10 mg tablet RxNorm: 794609 1 Tablet(s) PO TID as needed 09/16/2016 06/12/2017 Inactive MS Contin 30 mg tabl et,extended release RxNorm: 142079 1 Tablet(s) PO Q12H 09/16/2016 04/06/2017 In active Remeron 15 mg tablet RxNorm: 365044 1 Tablet(s) PO QHS 08/19/2016 09/15/2016 Inactive levothyroxine 200 mc g tablet RxNorm: 718132 1 Tablet(s) PO daily 08/11/2016 10/03/2016 Inactive bupropion HCl XL 300 mg 24 hr tablet, extended release RxNorm: 512116 TAKE ONE TABLET BY MOUTH DAILY 08/11/2016 11/06/2016 Inactive Protonix 40 mg table t,delayed release RxNorm: 473324 1 Tablet(s) PO daily 06/17/2016 12/13/2016 In active bupropion HCl XL 300 mg 24 hr tablet, extended release RxNorm: 020988 1 Tablet(s) PO daily 05/12/2016 07/10/2016 Inactive bupropion HCl XL 300 mg 24 hr tablet, extended release RxNorm: 123558 1 Tablet(s) PO daily 05/12/2016 05/11/2016 Inactive Cialis 20 mg tablet RxNorm: 603856 1 Tablet(s) PO PRN 02/16/2016 No Stop Date Active not more than 1 tab in 24 hours morphine ER 10 mg ca psule,extended release pellets RxNorm: 788444 1 Tablet(s) PO Q6 as needed 02/16/2016 11/16/2016 Inactive clonazepam 1 mg tablet RxNorm: 359948 1/2 Tablet(s) PO BID 02/16/2016 09/15/2016 Inactive trazodone 50 mg tablet RxNorm: 803677 1/2 Tablet(s) as needed 1 Tablet(s) PO Q HS 02/16/2016 08/18/2016 In active trazodone 50 mg tablet RxNorm: 297120 1/2 Tablet(s) 1 Tablet(s) PO QHS 11/17/2015 02/15/2016 In active trazodone 50 mg tablet RxNorm: 265318 1 Tablet(s) PO QHS 10/19/2015 11/16/2015 Inactive levothyroxine 200 mc g tablet RxNorm: 833768 1 Tablet(s) PO daily 10/02/2015 08/10/2016 Inactive Wellbutrin XL 150 mg 24 hr tablet, extended release RxNorm: 367208 1 Tablet(s) PO daily 10/02/2015 05/11/2016 Inactive levothyroxine 200 mc g tablet RxNorm: 459268 1 Tablet(s) PO daily 09/30/2015 10/01/2015 Inactive Wellbutrin XL 150 mg 24 hr tablet, extended release RxNorm: 127401 1 Tablet(s) PO daily 09/30/2015 10/01/2015 Inactive trazodone 50 mg tablet RxNorm: 846131 1 Tablet(s) PO QHS 09/11/2015 10/10/2015 Inactive trazodone 50 mg tablet RxNorm: 398531 1 Tablet(s) PO QHS 09/11/2015 09/10/2015 Inactive Cymbalta 30 mg capsu le,delayed release RxNorm: 286621 1 Capsule(s) PO daily 09/07/2015 11/16/2015 In active Cymbalta 60 mg capsu le,delayed release RxNorm: 050922 1 Capsule(s) PO daily 08/31/2015 08/30/2015 In active Cymbalta 30 mg capsu le,delayed release RxNorm: 499728 1 Capsule(s) PO daily take with 60mg to make 90 mg daily 08/31/2015 09/06/2015 Inactive Cymbalta 30 mg capsu le,delayed release RxNorm: 213335 1 Capsule(s) PO daily take with 60mg to make 90 mg daily 08/31/2015 08/30/2015 Inactive Cymbalta 60 mg capsu le,delayed release RxNorm: 147557 1 Capsule(s) PO daily x 7 days and then increase to 90mg daily 08/31/2015 09/07/2015 Inactive levothyroxine 200 mc g tablet RxNorm: 760544 1 Tablet(s) PO daily 08/14/2015 09/29/2015 Inactive Wellbutrin XL 150 mg 24 hr tablet, extended release RxNorm: 672350 1 Tablet(s) PO daily 07/14/2015 09/29/2015 Inactive Cialis 20 mg tablet RxNorm: 679356 1 Tablet(s) PO PRN 07/02/2015 02/15/2016 Inactive not more than 1 tab in 24 hours liothyronine 5 mcg t ablet RxNorm: 881296 1 Tablet(s) PO daily 2015 05/29/2016 Inactive clonazepam 1 mg tablet RxNorm: 763233 1 Tablet(s) PO TID 2015 02/15/2016 Inactive minocycline 50 mg ta blet RxNorm: 635020 1 Tablet(s) PO daily 2015 05/11/2016 Inactive Wellbutrin XL 150 mg 24 hr tablet, extended release RxNorm: 760609 1 Tablet(s) PO daily 04/23/2015 07/13/2015 Inactive levothyroxine 200 mc g tablet RxNorm: 358861 1 Tablet(s) PO daily 04/23/2015 08/13/2015 Inactive Aleve oral RxNorm: 739207 oral No Start Date Active Tylenol 500 mg RxNorm: oral No Start Date Active morphine ER 15 mg ta blet,extended release RxNorm: 807640 oral No Start Date 11/16/2016 Inactive Trazadone 25 mg RxNorm: 2 PO daily No Start Date 09/11/2015 Inactive diclofenac oral RxNorm: 3355 oral No Start Date 05/04/2018 Inactive clonazepam 1 mg tablet RxNorm: 826335 1 Tablet(s) PO QHS No Start Date 06/04/2015 Inactive Wellbutrin XL 150 mg 24 hr tablet, extended release RxNorm: 155729 1 Tablet(s) PO daily No Start Date 04/22/2015 Inactive minocycline 50 mg ta blet RxNorm: 731851 1 Tablet(s) PO daily No Start Date 06/04/2015 Inactive methadone 5 mg tablet RxNorm: 650356 1 Tablet(s) PO Q8 No Start Date 02/15/2016 Inactive Protonix 40 mg table t,delayed release RxNorm: 863832 Tablet(s) PO daily No Start Date 06/16/2016 Inactive Opana ER 15 mg table t, crush resistant, extended release RxNorm: 727073 1 Tablet(s) PO Q12H No Start Date 06/08/2017 Inactive MS Contin 30 mg tabl et,extended release RxNorm: 795203 1 Tablet(s) PO Q12H No Start Date 02/15/2016 Inactive Opana ER 15 mg table t, crush resistant, extended release RxNorm: 909363 1 Tablet(s) PO BID No Start Date 09/15/2016 Inactive liothyronine 5 mcg t ablet RxNorm: 601780 1 Tablet(s) PO daily No Start Date 06/04/2015 Inactive Cialis 20 mg tablet RxNorm: 019201 1 Tablet(s) PO PRN No Start Date 07/01/2015 Inactive not more than 1 tab in 24 hours baclofen 10 mg tablet RxNorm: 561484 1 Tablet(s) PO TID as needed No Start Date 05/11/2016 Inactive morphine 15 mg immed iate release tablet RxNorm: 042889 1 Tablet(s) PO Q6 PRN as needed No Start Date 02/15/2016 Inactive levothyroxine 200 mc g tablet RxNorm: 722430 1 Tablet(s) PO daily No Start Date 04/22/2015 Inactive Opana ER 5 mg tablet , crush resistant, extended release RxNorm: 770582 1 Tablet(s) PO Q6 No Start Date 06/08/2017 Inactive Medication Administered Medication Codes Instruc tions Start Date Status cyanocobalamin (vit B-12) 1,000 mcg/mL injection solut ion RxNorm: 388630 1Milliliter 12/27/2018 No longer Active Immunizations No [...] 29.4 pg 01/07/2019 Cbc With Differential Ord2 [place]% 10.9 % 01/07/2019 Cbc With Differential Ord2 [...] 1.77 K/ul 01/07/2019 Cbc With Differential Ord2 [place] ABS# 0.5 K/ul 01/07/2019 Cbc With Differential Ord2 Eos ABS# 0.1 K/ul 01/07/2019 Cbc With Differential Ord2 Baso ABS# 0.0 K/ul 01/07/2019 Free T4 Sie574 FREE T4 2.05 ng/dL 01/07/2019 Lipid Ord30 CHOL 189 mg/dL 01/07/2019 Lipid Ord30 HDL 58.0 mg/dl 01/07/2019 Lipid Ord30 TRIG 155 mg/dL 01/07/2019 Lipid Ord30 LDL 100 mg/dL 01/07/2019 Lipid Ord30 C/HDL 3.3 Ratio 01/07/2019 Comp Metabolic Zsn670 NA 137 mEq/L 01/07/2019 Comp Metabolic Zqr528 K 4.2 mEq/L 01/07/2019 Comp Metabolic Hxq874 CL 104 mEq/L 01/07/2019 Comp Metabolic Nrd842 CO2 26.0 mEq/L 01/07/2019 Comp Metabolic Cyo519 AN ION GAP 11 01/07/2019 Comp Metabolic Zrq741 GL UCOSE 64 mg/dL 01/07/2019 Comp Metabolic Ryc087 Cr eat 0.8 mg/dL 01/07/2019 Comp Metabolic Fcw343 eG FR 110 ml/min/1.73m2 12/28 Comp Metabolic Ufd211 BUN 7 mg/dL 01/07/2019 Comp Metabolic Lfm310 B/ C Ratio 9.0 Ratio 01/07/2019 Comp Metabolic Npv668 CA LCIUM 9.7 mg/dL 01/07/2019 Comp Metabolic Nqo236 AL K PHOS 64 U/L 01/07/2019 Comp Metabolic Doe693 T(SGOT) 32 U/L 01/07/2019 Comp Metabolic Uls733 AL T(SGPT) 44 U/L 01/07/2019 Comp Metabolic Nzm026 BI LI T 0.3 mg/dL 01/07/2019 Comp Metabolic Glw152 AL BUMIN 4.3 g/dL 01/07/2019 Comp Metabolic Qaq899 TP RO 6.5 g/dL 01/07/2019 Comp Metabolic Hse559 GL OB 2.2 g/dL 01/07/2019 Comp Metabolic Qdh254 A/ G Ratio 2.0 Ratio 01/07/2019 Comp Metabolic Ewp585 Os mo 270 mOsmo 01/07/2019 Free T4 [id number] FREE T4 1.54 ng/dL 11/05/2018 Vitamin D 25 Oh Wol3735 VITAMIN D, 25 HYDROXY 40.65 ng/mL 11/05/2018 Tsh Ord6 TSH (3rd IS) 0.02 uIU/mL 11/05/2018 Vitamin D 25 Oh [id number] VITAMIN D, 25 HYDROXY 30.96 ng/mL 07/06/2018 Comp Metabolic Oeh797 NA 141 mEq/L 07/06/2018 Comp Metabolic Sfz231 K 4.2 mEq/L 07/06/2018 Comp Metabolic Ydt680 CL 103 mEq/L 07/06/2018 Comp Metabolic Hvp570 CO2 29.0 mEq/L 07/06/2018 Comp Metabolic Lhj716 AN ION GAP 13 07/06/2018 Comp Metabolic Okb678 GL UCOSE 105 mg/dL 07/06/2018 Comp Metabolic Eig729 Cr eat 0.8 mg/dL 07/06/2018 Comp Metabolic Tkj212 eG FR 101 ml/min/1.73m2 06/27 Comp Metabolic Lse346 BUN 7 mg/dL 07/06/2018 Comp Metabolic Def655 B/ C Ratio 8.3 Ratio 07/06/2018 Comp Metabolic Gyj015 CA LCIUM 9.9 mg/dL 07/06/2018 Comp Metabolic Lgd253 AL K PHOS 65 U/L 07/06/2018 Comp Metabolic Ssz357 T(SGOT) 21 U/L 07/06/2018 Comp Metabolic Bjd001 AL T(SGPT) 31 U/L 07/06/2018 Comp Metabolic Tlp074 BI LI T 0.3 mg/dL 07/06/2018 Comp Metabolic Yfs348 AL BUMIN 4.3 g/dL 07/06/2018 Comp Metabolic Yzt975 TP RO 6.4 g/dL 07/06/2018 Comp Metabolic Rlq691 GL OB 2.1 g/dL 07/06/2018 Comp Metabolic Mir986 A/ G Ratio 2.0 Ratio 07/06/2018 Comp Metabolic Yop993 Os mo 280 mOsmo 07/06/2018 Cbc With [...] 29.3 pg 07/06/2018 Cbc With Differential Ord2 Juncos% 10.5 % 07/06/2018 Cbc With Differential Ord2 [...] 1.89 K/ul 07/06/2018 Cbc With Differential Ord2 Juncos ABS# 0.5 K/ul 07/06/2018 Cbc With Differential Ord2 Eos ABS# 0.3 K/ul 07/06/2018 Cbc With Differential Ord2 Baso ABS# 0.0 K/ul 07/06/2018 Total Psa Ord10 PSA 0.34 ng/mL 07/06/2018 Tsh Ord6 TSH (3rd IS) 0.02 uIU/mL 07/06/2018 Testosterone Ymt876 Testo 400.6 ng/dL 07/06/2018 Free T4 Jua680 FREE T4 1.48 ng/dL 07/06/2018 [place] Spotted Fever Igg/Igm 02725 3 [place] SPOTTED FEVER IGM EIA . 04/04/2018 [place] Spotted Fever Igg/Igm 91572 3 RMSF, IGM 0.24 index 04/04/2018 [place] Spotted Fever Igg/Igm 04238 3 [place] SPOTTED FEVER IGG EIA FLEX . 04/04/2018 [place] Spotted Fever Igg/Igm 43968 3 RMSF, IGG SCREEN-FLEX Equivocal 04/04/2018 [place] Spot'D Fev Igg 053451 RMSF, IGG- TITER IFA <1:64 04/04/2018 Ehrlichia Chaffeensis Antibody Igg [id number] EHRLICHIA CHAFFEENSIS IGG <1:64 04/02/2018 Ehrlichia Chaffeensis Antibody Igm [id number] EHRLICHIA CHAFFEENSIS IGM < 1:16 04/02/2018 Lymes Disease Total Antibodies With Western Blot Refle x [id number] B. BURGDORFERI, IGG/IGM 0.23 03/30/2018 Lymes Disease Total Antibodies With Western Blot Refle x [id number] 03/30/2018 Cbc With Differential Ord2 WBC 5.04 [...] 28.7 pg 03/28/2018 Cbc With Differential Ord2 Juncos% 16.1 % 03/28/2018 Cbc With Differential Ord2 [...] 1.37 K/ul 03/28/2018 Cbc With Differential Ord2 Juncos ABS# 0.8 K/ul 03/28/2018 Cbc With Differential Ord2 Eos ABS# 0.1 K/ul 03/28/2018 Cbc With Differential Ord2 Baso ABS# 0.0 K/ul 03/28/2018 Comp Metabolic Bbe243 NA 136 mEq/L 02/16/2018 Comp Metabolic Wxa079 K 3.9 mEq/L 02/16/2018 Comp Metabolic Bps745 CL 103 mEq/L 02/16/2018 Comp Metabolic Urw072 CO2 23.0 mEq/L 02/16/2018 Comp Metabolic Kse148 AN ION GAP 14 02/16/2018 Comp Metabolic Gbf237 GL UCOSE 133 mg/dL 02/16/2018 Comp Metabolic Qhc526 Cr eat 0.8 mg/dL 02/16/2018 Comp Metabolic Lxu114 eG FR 103 ml/min/1.73m2 01/26 Comp Metabolic Uwm505 BUN 7 mg/dL 02/16/2018 Comp Metabolic Dlo054 B/ C Ratio 8.4 Ratio 02/16/2018 Comp Metabolic Twe062 CA LCIUM 9.3 mg/dL 02/16/2018 Comp Metabolic Dgb510 AL K PHOS 71 U/L 02/16/2018 Comp Metabolic Eik030 T(SGOT) 42 U/L 02/16/2018 Comp Metabolic Rso180 AL T(SGPT) 69 U/L 02/16/2018 Comp Metabolic Mly610 BI LI T 0.3 mg/dL 02/16/2018 Comp Metabolic Cct236 AL BUMIN 4.1 g/dL 02/16/2018 Comp Metabolic Phg323 TP RO 6.3 g/dL 02/16/2018 Comp Metabolic Ciq962 GL OB 2.2 g/dL 02/16/2018 Comp Metabolic Cid834 A/ G Ratio 1.8 Ratio 02/16/2018 Comp Metabolic Qcx255 Os mo 272 mOsmo 02/16/2018 Free T4 Vwd037 FREE T4 1.85 ng/dL 02/16/2018 Ferritin Ord22 FERRITIN 161.7 ng/mL 02/16/2018 Tsh Ord6 TSH (3rd IS) 0.01 uIU/mL 02/16/2018 Test(s) Not Perfromed [id number] Test(s) Not Performed Test(s) Not Performed. See Below: 02/16/2018 Test(s) Not Perfromed [id number] TEST NAME CBC 02/16/2018 Test(s) Not Perfromed [id number] Rejection Reason No Suitable Specimen Receive d 02/16/2018 Test(s) Not Perfromed [id number] COMMENT Please Recollect Sample 02/16/2018 Test(s) Not Perfromed [id number] Interior Specialist Fernando Goyal 02/16/2018 Tibc Ord40 Iron 138 [...] 26.4 pg 01/05/2018 Cbc With Differential Ord2 Juncos% 11.9 % 01/05/2018 Cbc With Differential Ord2 [...] 2.08 K/ul 01/05/2018 Cbc With Differential Ord2 Jun[place] ABS# 0.6 K/ul 01/05/2018 Cbc With Differential Ord2 Eos ABS# 0.2 K/ul 01/05/2018 Cbc With Differential Ord2 Baso ABS# 0.0 K/ul 01/05/2018 Ferritin Ord22 FERRITIN 5.7 ng/mL 12/06/2017 Tibc Ord40 Iron 33 ug/dl 12/06/2017 Tibc Ord40 UIBC 431 ug/dL 12/06/2017 Tibc Ord40 TIBC 464 ug/dL 12/06/2017 Tibc Ord40 Fe-%Sat 7.1 % 12/06/2017 Free T4 Jwj003 FREE T4 1.82 ng/dL 12/01/2017 Tsh Ord6 [...] 27.0 pg 12/01/2017 Cbc With Differential Ord2 Juncos% 10.6 % 12/01/2017 Cbc With Differential Ord2 [...] 1.92 K/ul 12/01/2017 Cbc With Differential Ord2 Jun[place] ABS# 0.4 K/ul 12/01/2017 Cbc With Differential Ord2 Eos ABS# 0.2 K/ul 12/01/2017 Cbc With Differential Ord2 Baso ABS# 0.0 K/ul 12/01/2017 Comp Metabolic Urs570 NA 136 mEq/L 12/01/2017 Comp Metabolic Ool536 K 4.6 mEq/L 12/01/2017 Comp Metabolic Vzw713 CL 102 mEq/L 12/01/2017 Comp Metabolic Fnu539 CO2 27.0 mEq/L 12/01/2017 Comp Metabolic Ujs616 AN ION GAP 12 12/01/2017 Comp Metabolic Lfe638 GL UCOSE 90 mg/dL 12/01/2017 Comp Metabolic Hcz901 Cr eat 0.7 mg/dL 12/01/2017 Comp Metabolic Qdg386 eG FR 123 ml/min/1.73m2 03/2018 Comp Metabolic Kyy948 BUN 4 mg/dL 12/01/2017 Comp Metabolic Jno556 B/ C Ratio 5.6 Ratio 12/01/2017 Comp Metabolic Pwu448 CA LCIUM 9.0 mg/dL 12/01/2017 Comp Metabolic Fme802 AL K PHOS 67 U/L 12/01/2017 Comp Metabolic Vji218 T(SGOT) 30 U/L 12/01/2017 Comp Metabolic Wup609 AL T(SGPT) 29 U/L 12/01/2017 Comp Metabolic Dhq179 BI LI T 0.3 mg/dL 12/01/2017 Comp Metabolic Qnd365 AL BUMIN 4.1 g/dL 12/01/2017 Comp Metabolic Qbb746 TP RO 6.1 g/dL 12/01/2017 Comp Metabolic Ywn408 GL OB 2.0 g/dL 12/01/2017 Comp Metabolic Lbk618 A/ G Ratio 2.0 Ratio 12/01/2017 Comp Metabolic Jor900 Os mo 268 mOsmo 12/01/2017 Comp Metabolic Dqw778 NA 136 mEq/L 02/16/2016 Comp Metabolic Mmt248 K 4.2 mEq/L 02/16/2016 Comp Metabolic Xuw985 CL 104 mEq/L 02/16/2016 Comp Metabolic Nqy456 CO2 20.0 mEq/L 02/16/2016 Comp Metabolic Tjn349 AN ION GAP 16 02/16/2016 Comp Metabolic Hiu287 GL UCOSE 71 mg/dL 02/16/2016 Comp Metabolic Jrg089 Cr eat 0.8 mg/dL 02/16/2016 Comp Metabolic Bzp503 eG FR 113 ml/min/1.73m2 01/26 Comp Metabolic Jlz282 BUN 7 mg/dL 02/16/2016 Comp Metabolic Fgh486 B/ C Ratio 9.1 Ratio 02/16/2016 Comp Metabolic Mqe794 CA LCIUM 9.4 mg/dL 02/16/2016 Comp Metabolic Tqg538 AL K PHOS 57 U/L 02/16/2016 Comp Metabolic Wsm608 T(SGOT) 30 U/L 02/16/2016 Comp Metabolic Wtp957 AL T(SGPT) 27 U/L 02/16/2016 Comp Metabolic Mkn588 BI LI T 0.2 mg/dL 02/16/2016 Comp Metabolic Qwp566 AL BUMIN 4.4 g/dL 02/16/2016 Comp Metabolic Pei986 TP RO 6.5 g/dL 02/16/2016 Comp Metabolic Kzd781 GL OB 2.1 g/dL 02/16/2016 Comp Metabolic Lxy094 A/ G Ratio 2.1 Ratio 02/16/2016 Comp Metabolic Bfj259 Os mo 268 mOsmo 02/16/2016 Free T4 Ivr707 FREE T4 1.20 ng/dL 02/16/2016 Cbc With [...] 30.2 pg 02/16/2016 Cbc With Differential Ord2 Juncos% 9.6 % 02/16/2016 Cbc With Differential Ord2 [...] 1.50 K/ul 02/16/2016 Cbc With Differential Ord2 Juncos ABS# 0.5 K/ul 02/16/2016 Cbc With Differential [...] Procedure Codes Date THER/PROPH/DIAG INJ SC/IM CPT-4: 52724 12/27/2018 VITAMIN B12 INJECTION CPT-4: J3420 12/27/2018 PPPS, SUBSEQ VISIT CPT- 4: G0439 09/17/2018 Vital Signs Date Vital 05/14/2019 Blood Pressure 1: 120/70 Code: 8480-6 BMI: 36.2 Code: 47314-0 Heart Rate 1: 65 bpm Height: 5'6" SpO2: 98% Weight: 224 lbs 03/12/2019 Blood Pressure 1: 130/76 Code: 8480-6 BMI: 38.6 Code: 11848-6 Heart Rate 1: 83 bpm Height: 5'6" SpO2: 99% Weight: 239 lbs 01/07/2019 Blood Pressure 1: 124/80 Code: 8480-6 BMI: 38.3 Code: 80743-1 Heart Rate 1: 88 bpm Height: 5'6" SpO2: 97% Weight: 237 lbs 12/27/2018 Blood Pressure 1: 122/80 Code: 8480-6 BMI: 38.6 Code: 26886-8 Heart Rate 1: 72 bpm Height: 5'6" SpO2: 98% Weight: 239 lbs 11/05/2018 Blood Pressure 1: 122/64 Code: 8480-6 BMI: 37.4 Code: 45780-6 Heart Rate 1: 66 bpm Height: 5'6" SpO2: 97% Weight: 232 lbs 09/27/2018 Blood Pressure 1: 92/66 Code: 8480-6 BMI: 37.9 Code: 15139-3 Heart Rate 1: 66 bpm Height: 5'6" SpO2: 98% Weight: 235 lbs 09/17/2018 Blood Pressure 1: 110/72 Code: 8480-6 BMI: 38.3 Code: 29760-1 Heart Rate 1: 77 bpm Height: 5'6" SpO2: 95% Waist Measure (cm): 102 cm Weight: 237 lbs 09/03/2018 Blood Pressure 1: 122/68 Code: 8480-6 BMI: 37.6 Code: 09958-9 Heart Rate 1: 78 bpm Height: 5'6" SpO2: 97% Weight: 233 lbs 07/05/2018 Blood Pressure 1: 94/62 Code: 8480-6 BMI: 36.8 Code: 34848-6 Heart Rate 1: 88 bpm Height: 5'6" SpO2: 99% Weight: 228 lbs 05/04/2018 Blood Pressure 1: 110/80 Code: 8480-6 BMI: 35.5 Code: 18876-4 Heart Rate 1: 80 bpm Height: 5'6" SpO2: 99% Weight: 220 lbs 03/28/2018 Blood Pressure 1: 110/72 Code: 8480-6 BMI: 35.0 Code: 48710-1 Heart Rate 1: 80 bpm Height: 5'6" SpO2: 98% Temperature: 36.2 (C ) / 97.1 (F) Weight: 217 lbs 02/27/2018 Blood Pressure 1: 136/76 Code: 8480-6 BMI: 36.0 Code: 62013-2 Heart Rate 1: 80 bpm Height: 5'6" SpO2: 98% Weight: 223 lbs 12/01/2017 Blood Pressure 1: 132/72 Code: 8480-6 BMI: 33.4 Code: 51847-3 Heart Rate 1: 82 bpm Height: 5'6" SpO2: 97% Weight: 207 lbs 09/29/2017 Blood Pressure 1: 124/68 Code: 8480-6 BMI: 32.1 Code: 06559-0 Heart Rate 1: 77 bpm Height: 5'6" SpO2: 98% Weight: 199 lbs 08/11/2017 Blood Pressure 1: 154/82 Code: 8480-6 BMI: 31.6 Code: 37015-4 Heart Rate 1: 75 bpm Height: 5'6" SpO2: 98% Weight: 196 lbs 06/09/2017 Blood Pressure 1: 148/88 Code: 8480-6 BMI: 28.6 Code: 29556-0 Heart Rate 1: 88 bpm Height: 5'6" SpO2: 98% Weight: 177 lbs 04/07/2017 Blood Pressure 1: 140/84 Code: 8480-6 BMI: 30.3 Code: 08078-0 Heart Rate 1: 81 bpm Height: 5'6" SpO2: 99% Weight: 188 lbs 11/17/2016 Blood Pressure 1: 130/72 Code: 8480-6 Heart Rate 1: 63 bpm Height: SpO2: 93% Weight: 11/10/2016 Blood Pressure 1: 128/86 Code: 8480-6 BMI: 30.3 Code: 89197-5 Heart Rate 1: 84 bpm Height: 5'6" SpO2: 96% Weight: 188 lbs 10/14/2016 Heigh t: 5'6" 09/16/2016 Blood Pressure 1: 130/80 Code: 8480-6 BMI: 30.3 Code: 20525-1 Heart Rate 1: 67 bpm Height: 5'6" SpO2: 99% Weight: 188 lbs 08/19/2016 Blood Pressure 1: 110/62 Code: 8480-6 BMI: 29.9 Code: 77697-0 Heart Rate 1: 70 bpm Height: 5'6" SpO2: 97% Weight: 185 lbs 06/17/2016 Blood Pressure 1: 112/68 Code: 8480-6 BMI: 27.6 Code: 83157-1 Heart Rate 1: 61 bpm Height: 5'6" SpO2: 98% Weight: 171 lbs 05/12/2016 Blood Pressure 1: 130/76 Code: 8480-6 BMI: 29.7 Code: 45855-1 Heart Rate 1: 103 bpm Height: 5'6" SpO2: 98% Weight: 184 lbs 02/16/2016 Blood Pressure 1: 140/82 Code: 8480-6 BMI: 28.7 Code: 94103-6 Heart Rate 1: 66 bpm Height: 5'6" SpO2: 99% Weight: 178 lbs 11/17/2015 Blood Pressure 1: 120/74 Code: 8480-6 BMI: 29.4 Code: 24493-7 Heart Rate 1: 90 bpm Height: 5'6" SpO2: 94% Weight: 182 lbs 08/28/2015 Blood Pressure 1: 128/76 Code: 8480-6 BMI: 27.9 Code: 05662-7 Heart Rate 1: 80 bpm Height: 5'6" SpO2: 98% Weight: 173 lbs 05/28/2015 Blood Pressure 1: 122/70 Code: 8480-6 BMI: 27.0 Code: 17457-7 Heart Rate 1: 74 bpm Height: 5'6" SpO2: 98% Weight: 167 lbs 04/23/2015 Blood Pressure 1: 110/60 Code: 8480-6 BMI: 27.0 Code: 85957-4 Heart Rate 1: 68 bpm Height: 5'6" [...] and Resolution ongoing 09/03/2018 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 [facility] Diagnosis: Chronic pain syndrome[ICD10: G89.4] Diagnosis: Hypothyroidism, unspecified[ICD10: E03.9] Leydi Jacobo MD, [facility] CPT-4: 77791 05/14/2019 ([id number]) 15112 EST. [facility] Diagnosis: Hypothyroidism, unspecified[ICD10: E03.9] Diagnosis: Chronic pain syndrome[ICD10: G89.4] Leydi Jacobo MD, [facility] CPT-4: 51754 03/12/2019 ([id number] 37632 EST. [facility] Diagnosis: Chronic pain syndrome[ICD10: G89.4] Diagnosis: Hypothyroidism, unspecified[ICD10: E03.9] Diagnosis: Encounter for screening for lipoid disorders[ICD10: Z13.220] Diagnosis: Major depressive disorder, recurrent, moderate[ICD10: F33.1] [facility] CPT-4: 53340 01/07/2019 ([id number] 83776 EST. [facility] Diagnosis: Obstructive sleep apnea (adult) (pediatric)[ICD10: G47.33] Diagnosis: Hypothyroidism, unspecified[ICD10: E03.9] Diagnosis: Vitamin B12 deficiency anemia, unspecified[ICD10: D51.9] Leydi Jacobo MD, [facility] CPT-4: 91417 12/27/2018 ([id number] 72795 EST. P ATIENT, LEVEL IV Diagnosis: Hypothyroidism, unspecified[ICD10: E03.9] Diagnosis: Major depressive disorder, recurrent, moderate[ICD10: F33.1] Diagnosis: Chronic pain syndrome[ICD10: G89.4] Leydi Jacobo MD, [facility] CPT-4: 10976 11/05/2018 ([id number]) 65743 EST. P ATIENT, LEVEL IV Diagnosis: Chronic pain syndrome[ICD10: G89.4] Diagnosis: Hypothyroidism, unspecified[ICD10: E03.9] Diagnosis: Other fatigue[ICD10: R53.83] Diagnosis: Other obesity due to excess calories[ICD10: E66.09] Diagnosis: Major depressive disorder, recurrent, moderate[ICD10: F33.1] Leydi Jacobo MD, [facility] CPT-4: 34625 09/27/2018 ([id number]) 25282 EST. P ATIENT, LEVEL III Diagnosis: Chronic pain syndrome[ICD10: G89.4] Leydi Jacobo MD, [facility] CPT-4: 84563 09/03/2018 ([id number]) 60725 EST. P ATIENT, LEVEL IV Diagnosis: Hypothyroidism, unspecified[ICD10: E03.9] Diagnosis: Major depressive disorder, recurrent, moderate[ICD10: F33.1] Diagnosis: Chronic pain syndrome[ICD10: G89.4] Diagnosis: Other male erectile dysfunction[ICD10: N52.8] Diagnosis: Other fatigue[ICD10: R53.83] Diagnosis: Encounter for screening for malignant neoplasm of prostate[ICD10: Z12.5] Leydi Jacobo MD, [facility] CPT-4: 87457 07/05/2018 ([id number]) 69563 EST. P ATIENT, LEVEL IV Diagnosis: Chronic pain syndrome[ICD10: G89.4] Diagnosis: Hypothyroidism, unspecified[ICD10: E03.9] Diagnosis: Major depressive disorder, recurrent, moderate[ICD10: F33.1] Leydi Jacobo MD, [facility] CPT-4: 29294 05/04/2018 77640 EST. PATIENT, LEVEL IV Diagnosis: Melena[ICD10: K92.1] Diagnosis: Other malaise[ICD10: R53.81] Diagnosis: Other fatigue[ICD10: R53.83] Diagnosis: Pain in unspecified joint[ICD10: M25.50] Diagnosis: Diarrhea, unspecified[ICD10: R19.7] Denae Jacobo MD, [facility] CPT-4: 08688 03/28/2018 ([id number]) 70832 EST. P ATIENT, LEVEL IV Diagnosis: Chronic pain syndrome[ICD10: G89.4] Diagnosis: Hypothyroidism, unspecified[ICD10: E03.9] Diagnosis: Other obesity due to excess calories[ICD10: E66.09] Diagnosis: Major depressive disorder, recurrent, moderate[ICD10: F33.1] Diagnosis: Obstructive sleep apnea (adult) (pediatric)[ICD10: G47.33] Leydi Jacobo MD, [facility] CPT-4: 69359 02/27/2018 35344 EST. PATIENT, LEVEL IV Diagnosis: Other specified hypothyroidism[ICD10: E03.8] Diagnosis: Chronic pain syndrome[ICD10: G89.4] Diagnosis: Major depressive disorder, recurrent, moderate[ICD10: F33.1] Denae Jacobo MD, [facility] CPT-4: 31722 12/01/2017 ([id number]) 03514 EST. P ATIENT, LEVEL IV Diagnosis: Chronic pain syndrome[ICD10: G89.4] Diagnosis: Alcohol dependence, uncomplicated[ICD10: F10.20] Diagnosis: Major depressive disorder, recurrent, moderate[ICD10: F33.1] Leydi Jacobo MD, [facility] CPT-4: 24239 09/29/2017 ([id number]) 36213 EST. P ATIENT, LEVEL IV Diagnosis: Chronic pain syndrome[ICD10: G89.4] Diagnosis: Alcohol dependence, uncomplicated[ICD10: F10.20] Diagnosis: Major depressive disorder, recurrent, moderate[ICD10: F33.1] Leydi Jacobo MD, [facility] CPT-4: 93605 08/11/2017 ([id number]) 76733 EST. P ATIENT, LEVEL III Diagnosis: Chronic pain syndrome[ICD10: G89.4] Diagnosis: Major depressive disorder, recurrent, moderate[ICD10: F33.1] Leydi Jacobo MD, [facility] CPT-4: 21467 06/09/2017 ([id number]) 69271 EST. [facility] Diagnosis: Chronic pain syndrome[ICD10: G89.4] Diagnosis: Pain in left knee[ICD10: M25.562] Leydi Jacobo MD, [facility] CPT- 4: 02772 04/07/2017 [id number] EST. PATIENT, LEVEL II Diagnosis: Superficial foreign body of left upper arm, initial encounter[ICD10: S40.852A] Diagnosis: Cellulitis of left upper limb[ICD10: L03.114] Leydi Jacobo MD, [facility] CPT-4: 01208 11/17/2016 [id number] EST. PATIENT, LEVEL II Diagnosis: Cellulitis of left upper limb[ICD10: L03.114] Leydi Jacobo MD, [facility] CPT-4: 25335 11/10/2016 ([id number]) 04433 EST. [facility] Diagnosis: Chronic pain syndrome[ICD10: G89.4] Diagnosis: Major depressive disorder, recurrent, moderate[ICD10: F33.1] Leydi Jacobo MD, [facility] CPT-4: 00075 10/14/2016 [id number] EST. PATIENT, LEVEL IV Diagnosis: Psychophysiologic insomnia[ICD10: F51.04] Diagnosis: Major depressive disorder, recurrent, moderate[ICD10: F33.1] Diagnosis: Alcohol dependence, uncomplicated[ICD10: F10.20] Diagnosis: Chronic pain syndrome[ICD10: G89.4] Leydi Jacobo MD, [facility] CPT-4: 99341 09/16/2016 ([id number]) 13239 EST. P ATIENT, LEVEL III Diagnosis: Pain in left shoulder[ICD10: M25.512] Diagnosis: Major depressive disorder, recurrent, moderate[ICD10: F33.1] Diagnosis: Psychophysiologic insomnia[ICD10: F51.04] Leydi Jacobo MD, [facility] CPT-4: 19118 08/19/2016 ([id number]) 10856 EST. [facility] Diagnosis: Gastro-esophageal reflux disease without esophagitis[ICD10: K21.9] Diagnosis: Hypothyroidism, unspecified[ICD10: E03.9] Leydi Jacobo MD, [facility] CPT-4: 10937 06/17/2016 ([id number]) 24787 EST. P ATIENT, LEVEL IV Diagnosis: Gastro-esophageal reflux disease without esophagitis[ICD10: K21.9] Diagnosis: Hypothyroidism, unspecified[ICD10: E03.9] Diagnosis: Major depressive disorder, recurrent, moderate[ICD10: F33.1] Leydi Jacobo MD, [facility] CPT-4: 02242 05/12/2016 ([id number]) 05208 EST. P ATIENT, LEVEL III Diagnosis: Cervicalgia[ICD10: M54.2] Diagnosis: Hypothyroidism, unspecified[ICD10: E03.9] Diagnosis: Other male erectile dysfunction[ICD10: N52.8] Leydi Jacobo MD, [facility] CPT-4: 80597 02/16/2016 ([id number]) 19575 EST. P ATIENT, LEVEL III Diagnosis: Lumbago with sciatica, unspecified side[ICD10: M54.40] Diagnosis: Other male erectile dysfunction[ICD10: N52.8] Leydi Jacobo MD, [facility] CPT-4: 49695 11/17/2015 ([id number]) 42636 EST. P ATIENT, LEVEL III Diagnosis: Lumbago with sciatica, unspecified side[ICD10: M54.40] Diagnosis: Hypothyroidism, unspecified[ICD10: E03.9] Diagnosis: Other male erectile dysfunction[ICD10: N52.8] Leydi Jacobo MD, [facility] CPT-4: 41392 08/28/2015 ([id number]) 04360 EST. P ATIENT, LEVEL III Diagnosis: Back pain, chronic[ICD9: 724.5] Diagnosis: Depression[ICD9: 311] Diagnosis: Hypothyroid[ICD9: 244.9] Diagnosis: Bilateral calf pain[ICD9: 729.5] Julieta Jacobo MD, [facility] CPT-4: 33601 05/28/2015 ([id number]) OFFICE VISI T, NEW - LEVEL 4 Diagnosis: Back pain, chronic[ICD9: 724.5] Diagnosis: Depression[ICD9: 311] Diagnosis: Hypothyroid[ICD9: 244.9] [facility] CPT-4: 21735 04/23/2015 Plan of Care Planned Activity Notes [...] termination from this medical practice. Hypothyroidism- seeing staffing program manager 05/14/2019 Patient Education: Patient Medication Summary Completed 05/14/2019 Visit Plan: Hypothyroidism -refer kaitlynn Yan at [facility] Chronic Pain Syndrome - pt has chronic pain - has been maintained on current medications, has not sought out other medications, only uses PRN pain medications as directed, and understands the consequences of over-medication. 03/12/2019 Appointment: Leydi Hightower WPtel: [facility] [place] [phone] [place] (30 min) Complex 03/12/2019 Patient Education: Patient Medication Summary Completed 03/12/2019 Appointment: Leydi Hightower WPtel: [address] [place], [place] [phone] [place] (30 min) Complex 03/05/2019 Visit Plan: [...] thyroid ultrasound 01/07/2019 Appointment: Leydi Hightower WPtel: [facility] [place] (30 min) Complex 01/07/2019 Patient Education: [...] the office 12/27/2018 Appointment: Le[facility] Hightower [facility]Ptel[phone] (15 min) Moderate 12/27/2018 Patient Education: [...] current medications. 11/05/2018 Appointment: Leydi Hightower WPtel[phone] (30 min) Complex 11/05/2018 Patient Education: [...] control. 09/27/2018 Appointment: Leydi Hightower WPtel: [phone] [phone] [place] [address] (15 min) Moderate 09/27/2018 Patient Education: Patient [...] care surrogate. 09/17/2018 Appointment: Leydi Hightower WPtel: [facility] [facility] [place] [address] - Annual Wellness Visit 09/17/2018 Patient Education: Patient Medication Summary Completed 09/17/2018 Visit Plan: Chronic Pain Syndrome - pt has chronic pain - has been maintained on current medications, has not sought out other medications, only uses PRN pain medications as directed, and understands the consequences of over-medication. 09/03/2018 Appointment: Leydi Hightower WPtel: [facility] [phone] [place] [address] (30 min) Complex 09/03/2018 Patient Education: Patient [...] exposure. No change in current medications. Fatigue-weight jppk-XA-htflm labs including testosterone level 07/05/2018 Visit Plan: [...] exposure. No change in current medications. Fatigue-weight tyja-IB-okrhq labs including testosterone level 07/05/2018 Appointment: Leydi Hightower WPtel: [address] [place], [place] [phone] [place] (15 min) Moderate 07/05/2018 Patient Education: [...] BID 05/04/2018 Appointment: [facility] [phone] [phone] (15 min) Moderate 05/04/2018 Patient Education: [...] pain. 03/28/2018 Appointment: Denae Mart[facility]nez [facility] [phone] [phone] (30 min) Complex 03/28/2018 Appointment: Nurse [...] time. 02/27/2018 Appointment: [facility] [phone] [phone] (15 min) Moderate 02/27/2018 Patient Education: [...] control. 12/01/2017 Appointment: Den[facility] Mart[facility]nez [facility] [phone] [facility] (30 min) Complex 12/01/2017 Patient Education: [...] treatment 09/29/2017 Appointment: Leydi Hightower WPtel: [phone] [phone] (30 min) Complex 09/29/2017 Patient Education: Patient [...] cons ider 08/11/2017 Appointment: Leydi Hightower WPtel: [phone] (30 min) Complex 08/11/2017 Patient Education: Patient [...] current medications. 06/09/2017 Appointment: Leydi Hightower WPtel: [phone] [phone] (30 min) Complex 06/09/2017 Patient Education: Patient [...] completely resolve 11/17/2016 Appointment: Leydi Hightower WPtel: [phone] [place] [phone] (30 min) Complex 11/17/2016 Patient Education: Patient [...] in pain. 11/10/2016 Appointment: Leydi Hightower WPtel: [facility]4 [phone] (30 min) Complex 11/10/2016 Patient Education: Patient [...] plan. 10/14/2016 Appointment: Leydi Hightower WPtel: [phone] [phone] (30 min) Complex 10/14/2016 Patient Education: Patient [...] will try 09/16/2016 [phone] [facility] 09/16/2016 Patient Education: Patient Medication Summary Completed 09/16/2016 Visit Plan: Left shoulder and elbow pain-xray shoulder and elbow Znsmzvtptg-yueowiut-cadxfspegbfg-d/c trazodone-start remeron at bedtime Pt has been [...] this patient. 08/19/2016 App[facility]ment: [phone] [phone] ([facility] Complex 08/19/2016 Patient Education: Patient [...] Completed 06/17/2016 Appointment: Leydi Hightower WPtel: [phone] [id number] (30 min) Complex 06/09/2016 Visit Plan: [...] control. 05/12/2016 Appointment: [facility]ightower [facility]el[facility] [phone] [phone] (30 min) Complex 05/12/2016 Patient Education: [...] in office. 05/28/2015 Appointment: Leydi Hightower WPtel: [address] [place], [place] [phone] (30 min) Complex 05/28/2015 Patient Education: Patient [...] Dynamic Portal ID Completed 04/23/2015 [facility] Auto[facility] - Levothyroxine - 18-64 - Dynamic Portal ID Completed 04/23/2015 Care Plan: COMPLETE CBC AUTOMATED LOINC : 21323-3 Ordered 04/23/2015 Instructions Comment DECREASE LEVOTHYROXI NE [...] termination from this medical practice. Hypothyroidism- seeing staffing program manager . Chronic Pain Syndr ome - [...] exposure. No change in current medications. Fatigue-weight mgpw-QE-aoyuj labs including testosterone level . Chronic Pain [...] exposure. No change in current medications. 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 Chronic Pain Syndrome [...]
--- OUTSIDE RECORDS SUMMARY | 2020-03-17 14:50 | XMS REPORT | CCD ---
Author Author Thai Castillo Organization Sara Jacobo MD, [facility] Address [address] [place] [address] Phone Care Team Providers Care Applied Technologist Name Role Phone PP Unavailable CCM Unavailable Summary Purpose Interface Exchange Insurance Providers Payer name Policy type / Coverage type Covered republican ID Effective Begin Date Effective End Date WPS Medicare Part B Medicare Part B [id number] Unknown [facility] icare Part B [id number] Un known Family history Father Diagnosis Age At Onset Colon cancer Unknown Social History Social History Element Codes Description Effective Dates Employment Unknown [place] nt[place] unemployed Before disability 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 On Disability Unknown Yes 09/27/2018 Marital status Unknown D ivorced 04/23/[address]: 023841382 Never smoker 04/23/[address]: 964117 Currently drinks alcohol occasionally drinks 04/23/2015 Allergies, [...] table t, crush resistant, extended release RxNorm: 4191574 1 Tablet(s) PO BID 05/07/2019 2019 Active levothyroxine 200 mc g tablet RxNorm: 624175 1 Tablet(s) PO daily TAKE ONE TABLET BY MOUTH DAILY 03/12/2019 09/07/2019 Active Updated script oxymorphone 5 mg tablet RxNorm: 628884 1 Tablet(s) PO Q6 PRN 03/12/2019 05/10/2019 Active trazodone 50 mg tablet RxNorm: 403957 1.5 Tablet(s) PO QHS TAKE ONE TABLET BY MOUTH EVERY NIGHT AT BEDTIME AND ONE-HALF TABLET BY MOUTH NEEDED 03/12/2019 06/09/2019 Active morphine 30 mg table t, crush resistant, extended release RxNorm: 8165660 1 Tablet(s) PO BID 03/12/2019 04/10/2019 Inactive doxycycline hyclate 100 mg tablet RxNorm: 1048996 1 Tablet(s) PO BID 03/12/2019 03/21/2019 Inactive morphine 30 mg table t, crush resistant, extended release RxNorm: 1775045 1 Tablet(s) PO BID 03/06/2019 03/11/2019 Inactive tizanidine 4 mg tablet RxNorm: 992619 TAKE ONE TABLET BY MOUTH THREE TIMES A D AY NEEDED 02/26/2019 05/26/2019 Active diclofenac sodium 75 mg tablet,delayed release RxNorm: 844377 TAKE ONE TABLET BY [facility] TWICE A DAY 02/18/2019 05/18/2019 Active Protonix 40 mg table t,delayed release RxNorm: 353783 TAKE ONE TABLET BY [facility] DAILY 02/06/2019 09/03/2019 Ac tive trazodone 50 mg tablet RxNorm: 055776 TAKE ONE TABLET BY MOUTH EVERY NIGHT AT BEDTIME AND ONE-HALF TABLET BY MOUTH NEEDED 01/14/2019 03/11/2019 Inactive oxymorphone 5 mg tablet RxNorm: 440407 1 Tablet(s) PO Q6 PRN 01/07/2019 03/07/2019 Inactive morphine 30 mg table t, crush resistant, extended release RxNorm: 0891272 1 Tablet(s) PO BID 01/07/2019 03/05/2019 Inactive doxycycline hyclate 100 mg tablet RxNorm: 7003007 1 Tablet(s) PO BID 01/01/2019 01/10/2019 Inactive cyanocobalamin (vit B-12) 1,000 mcg/mL injection solution RxNorm: 360068 1 Milliliter(s) Inj 12/27/2018 12/27/2018 Inactive baclofen 10 mg tablet RxNorm: 693361 TAKE ONE TABLET BY MOUTH THREE TIMES A D AY NEEDED 11/29/2018 03/28/2019 Inactive Request already responded t o by other means (e.g. phone or fax) baclofen 10 mg tablet RxNorm: 794236 Tablet(s) TAKE ONE TABLET BY MOUTH THREE TIMES A DAY NEEDED 11/28/2018 11/28/2018 Inactive doxycycline hyclate 100 mg tablet RxNorm: 6094633 1 Tablet(s) PO BID 11/14/2018 11/23/2018 Inactive trazodone 50 mg tablet RxNorm: 512333 TAKE ONE TABLET BY MOUTH EVERY NIGHT AT BEDTIME AND ONE-HALF TABLET BY MOUTH NEEDED 11/12/2018 12/21/2018 Inactive tizanidine 4 mg tablet RxNorm: 147338 TAKE ONE TABLET BY MOUTH THREE TIMES A D AY NEEDED 10/22/2018 02/18/2019 Inactive diclofenac sodium 75 mg tablet,delayed release RxNorm: 626984 TAKE ONE TABLET BY [facility] TWICE A DAY 10/15/2018 02/11/2019 Inactive Lasix 20 mg tablet RxNorm: 611301 1 Tablet(s) PO daily as needed 10/10/2018 11/08/2018 In active potassium chloride E R 10 mEq tablet,extended release RxNorm: 145101 1 Tablet(s) PO daily as needed to take with lasix for inceased edema 10/10/2018 11/08/2018 Inactive potassium chloride E R 10 mEq tablet,extended release RxNorm: 652433 1 Tablet(s) PO daily as needed to take with lasix for inceased edema 10/10/2018 10/09/2018 Inactive Lasix 20 mg tablet RxNorm: 543648 1 Tablet(s) PO daily as needed 10/10/2018 10/09/2018 In active doxycycline hyclate 100 mg tablet RxNorm: 5684872 1 Tablet(s) PO BID 09/27/2018 10/10/2018 Inactive Remeron 15 mg tablet RxNorm: 708515 1.5 Tablet(s) PO QPM TAKE ONE TABLET BY MOUTH EVERY NIGHT AT BEDTIME 09/18/2018 12/16/2018 Inactive baclofen 10 mg tablet RxNorm: 867334 TAKE ONE TABLET BY MOUTH THREE TIMES A D AY NEEDED 09/12/2018 11/10/2018 Inactive Remeron 15 mg tablet RxNorm: 598385 1.5 Tablet(s) PO QPM TAKE ONE TABLET BY MOUTH EVERY NIGHT AT BEDTIME 09/03/2018 09/17/2018 Inactive oxymorphone 5 mg tablet RxNorm: 166863 1 Tablet(s) PO Q6 PRN 09/03/2018 11/01/2018 Inactive morphine 30 mg table t, crush resistant, extended release RxNorm: 0134262 1 Tablet(s) PO BID 09/03/2018 11/01/2018 Inactive trazodone 50 mg tablet RxNorm: 377860 TAKE ONE TABLET BY MOUTH EVERY NIGHT AT BEDTIME AND ONE-HALF TABLET BY MOUTH NEEDED 09/03/2018 10/12/2018 Inactive tizanidine 4 mg tablet RxNorm: 598243 TAKE ONE TABLET BY MOUTH THREE TIMES A D AY NEEDED 08/20/2018 10/18/2018 Inactive Protonix 40 mg table t,delayed release RxNorm: 599148 TAKE ONE TABLET BY [facility] DAILY 08/10/2018 02/05/2019 In active Carafate 1 gram tablet RxNorm: 549464 TAKE ONE TABLET BY MOUTH BEFORE MEALS AN D AT BEDTIME NEEDED FOR HEARTBURN 07/31/2018 12/27/2018 Inactive Protonix 40 mg table t,delayed release RxNorm: 147028 1 Tablet(s) BID 07/24/2018 07/23/2018 Inactive Protonix 40 mg table t,delayed release RxNorm: 999809 1 Tablet(s) daily 07/24/2018 08/09/2018 In active liothyronine 5 mcg t ablet RxNorm: 963135 TAKE ONE TABLET BY [facility] DAILY 07/19/2018 01/09/2019 In active baclofen 10 mg tablet RxNorm: 592544 TAKE ONE TABLET BY MOUTH THREE TIMES A D AY NEEDED 07/12/2018 09/09/2018 Inactive levothyroxine 175 mc g tablet RxNorm: 049065 1 Tablet(s) PO daily 07/11/2018 03/11/2019 Inactive Vitamin D2 50,000 un it capsule RxNorm: 8112499 1 Capsule(s) PO QW 07/11/2018 10/02/2018 Inactive trazodone 50 mg tablet RxNorm: 154169 TAKE ONE TABLET BY MOUTH EVERY NIGHT AT BEDTIME AND ONE-HALF TABLET BY MOUTH NEEDED 07/11/2018 08/19/2018 Inactive Vitamin D2 50,000 un it capsule RxNorm: 8244872 1 Capsule(s) PO QW 07/11/2018 07/10/2018 Inactive morphine 30 mg table t, crush resistant, extended release RxNorm: 6344205 1 Tablet(s) PO BID 07/05/2018 09/02/2018 Inactive oxymorphone 5 mg tablet RxNorm: 893878 1 Tablet(s) PO Q6 PRN 07/05/2018 09/02/2018 Inactive bupropion HCl XL 300 mg 24 hr tablet, extended release RxNorm: 852467 TAKE ONE TABLET BY MOUTH DAILY 06/27/2018 12/23/2018 Inactive Remeron 15 mg tablet RxNorm: 907179 TAKE ONE TABLET BY MOUTH EVERY NIGHT AT BEDTIME 06/27/2018 09/02/2018 Inactive tizanidine 4 mg tablet RxNorm: 536899 TAKE ONE TABLET BY MOUTH THREE TIMES A D AY NEEDED 06/20/2018 08/18/2018 Inactive doxycycline hyclate 100 mg tablet RxNorm: 2755695 1 Tablet(s) PO BID 06/18/2018 07/01/2018 Inactive Protonix 40 mg table t,delayed release RxNorm: 822741 TAKE ONE TABLET BY [facility] DAILY 06/11/2018 07/23/2018 In active doxycycline hyclate 100 mg tablet RxNorm: 2300771 1 Tablet(s) PO BID 05/22/2018 06/04/2018 Inactive baclofen 10 mg tablet RxNorm: 947476 TAKE ONE TABLET BY MOUTH THREE TIMES A D AY NEEDED 05/14/2018 07/11/2018 Inactive diclofenac sodium 75 mg tablet,delayed release RxNorm: 255802 TAKE ONE TABLET BY [facility] TWICE A DAY 05/07/2018 10/03/2018 Inactive oxymorphone 5 mg tablet RxNorm: 438696 1 Tablet(s) PO Q6 PRN 05/04/2018 07/02/2018 Inactive morphine 30 mg table t, crush resistant, extended release RxNorm: 8270978 1 Tablet(s) PO BID 05/04/2018 07/02/2018 Inactive doxycycline hyclate 100 mg tablet RxNorm: 838298 1 Tablet(s) PO BID 04/24/2018 04/23/2018 Inactive doxycycline hyclate 100 mg tablet RxNorm: 7203514 1 Tablet(s) PO BID 04/24/2018 05/03/2018 Inactive baclofen 10 mg tablet RxNorm: 444337 TAKE ONE TABLET BY MOUTH THREE TIMES A D AY NEEDED 04/13/2018 05/12/2018 Inactive trazodone 50 mg tablet RxNorm: 091136 TAKE ONE TABLET BY MOUTH EVERY NIGHT AT BEDTIME AND ONE-HALF TABLET BY MOUTH NEEDED 04/09/2018 06/07/2018 Inactive Questran 4 gram powd er for susp in a packet RxNorm: 006019 1 packet PO BID 04/06/2018 06/04/2018 In active Questran 4 gram powd er for susp in a packet RxNorm: 572728 1 packet PO BID 04/06/2018 04/05/2018 In active Carafate 1 gram tablet RxNorm: 831812 1 Tablet(s) PO AC & HS as needed for hea rtburn 03/28/2018 04/26/2018 Inactive baclofen 10 mg tablet RxNorm: 818616 TAKE ONE TABLET BY MOUTH THREE TIMES A D AY NEEDED 03/16/2018 04/12/2018 Inactive Protonix 40 mg table t,delayed release RxNorm: 440193 TAKE ONE TABLET BY [facility] DAILY 03/16/2018 06/10/2018 In active oxymorphone 5 mg tablet RxNorm: 765253 1 Tablet(s) PO Q6 PRN 02/27/2018 04/27/2018 Inactive morphine 30 mg table t, crush resistant, extended release RxNorm: 3223552 1 Tablet(s) PO BID 02/27/2018 04/27/2018 Inactive Belviq XR 20 mg tabl et,extended release RxNorm: 3235334 1 Tablet(s) PO daily 02/27/2018 01/06/2019 In active levothyroxine 100 mc g tablet RxNorm: 128062 1 Tablet(s) PO daily 02/27/2018 07/10/2018 Inactive take with 88mcg to = 188mcg daily levothyroxine 88 mcg tablet RxNorm: 064335 1 Tablet(s) PO daily 02/27/2018 07/10/2018 Inactive take with 100mcg to = 188mcg daily morphine 30 mg table t, crush resistant, extended release RxNorm: 0897533 1 Tablet(s) PO BID 02/14/2018 02/26/2018 Inactive levothyroxine 200 mc g tablet RxNorm: 633422 Tablet(s) TAKE ONE TA BLET BY MOUTH DAILY 01/18/2018 02/26/2018 Inactive Updated script baclofen 10 mg tablet RxNorm: 372349 Tablet(s) TAKE ONE TABLET BY MOUTH THREE TIMES A DAY NEEDED 01/15/2018 02/13/2018 Inactive morphine 30 mg table t, crush resistant, extended release RxNorm: 5994871 1 Tablet(s) PO BID 01/15/2018 02/13/2018 Inactive tizanidine 4 mg tablet RxNorm: 213144 TAKE ONE TABLET BY MOUTH THREE TIMES A D AY NEEDED 01/02/2018 04/01/2018 Inactive Request already responded t o by other means (e.g. phone or fax) bupropion HCl XL 300 mg 24 hr tablet, extended release RxNorm: 084364 TAKE ONE TABLET BY MOUTH DAILY 12/29/2017 06/26/2018 Inactive Tamiflu 75 mg capsule RxNorm: 855741 1 Capsule(s) PO BID 12/27/2017 12/31/2017 Inactive Tamiflu 75 mg capsule RxNorm: 018814 1 Capsule(s) PO BID 12/27/2017 12/26/2017 Inactive tizanidine 4 mg tablet RxNorm: 198069 1 Tablet(s) PO TID as needed 12/25/2017 01/01/2018 Inactive levothyroxine 175 mc g tablet RxNorm: 243250 1 Tablet(s) PO daily 12/14/2017 12/13/2017 Inactive levothyroxine 175 mc g tablet RxNorm: 788796 1 Tablet(s) PO daily 12/14/2017 01/17/2018 Inactive baclofen 10 mg tablet RxNorm: 156384 Tablet(s) TAKE ONE TABLET BY MOUTH THREE TIMES A DAY NEEDED 12/13/2017 01/11/2018 Inactive baclofen 10 mg tablet RxNorm: 964605 TAKE ONE TABLET BY MOUTH THREE TIMES A D AY NEEDED 12/13/2017 12/12/2017 Inactive morphine 30 mg table t, crush resistant, extended release RxNorm: 1487592 1 Tablet(s) PO BID 12/12/2017 01/14/2018 Inactive clonazepam 1 mg tablet RxNorm: 420552 1/2 Tablet(s) PO daily 12/01/2017 08/27/2018 Inactive trazodone 50 mg tablet RxNorm: 177198 1/2 to 1 Tablet(s) QHS as needed 12/01/2017 03/30/2018 In active Opana ER 15 mg table t, crush resistant, extended release RxNorm: 553839 1 Tablet(s) PO Q12H 12/01/2017 02/13/2018 Inactive oxymorphone 5 mg tablet RxNorm: 510594 1 Tablet(s) PO Q6 PRN 12/01/2017 02/26/2018 Inactive Remeron 15 mg tablet RxNorm: 744335 Tablet(s) TAKE ONE TABLET BY MOUTH EVERY NIGHT AT BEDTIME 12/01/2017 02/28/2018 Inactive trazodone 50 mg tablet RxNorm: 836545 1/2 Tablet(s) as needed 1 Tablet(s) PO Q HS 12/01/2017 11/30/2017 In active clonazepam 1 mg tablet RxNorm: 296829 1/2 Tablet(s) PO daily 11/30/2017 11/30/2017 Inactive Remeron 15 mg tablet RxNorm: 908928 TAKE ONE TABLET BY MOUTH EVERY NIGHT AT BEDTIME 11/29/2017 11/30/2017 Inactive levothyroxine 200 mc g tablet RxNorm: 385181 TAKE ONE TABLET BY [facility] DAILY 11/15/2017 12/13/2017 In active baclofen 10 mg tablet RxNorm: 186609 TAKE ONE TABLET BY MOUTH THREE TIMES A D AY NEEDED 11/07/2017 12/06/2017 Inactive diclofenac sodium 75 mg tablet,delayed release RxNorm: 316817 1 Tablet(s) PO BID 11/07/2017 05/05/2018 In active liothyronine 5 mcg t ablet RxNorm: 222650 TAKE ONE TABLET BY [facility] DAILY 10/27/2017 07/18/2018 In active tizanidine 4 mg tablet RxNorm: 088883 1 Tablet(s) PO TID as needed 10/18/2017 12/16/2017 Inactive oxymorphone 5 mg tablet RxNorm: 006679 1 Tablet(s) PO Q6 PRN 09/29/2017 11/27/2017 Inactive morphine 30 mg table t, crush resistant, extended release RxNorm: 7569777 1 Tablet(s) PO BID 09/29/2017 11/28/2017 Inactive baclofen 10 mg tablet RxNorm: 841499 1 Tablet(s) PO TID as needed 09/11/2017 10/10/2017 Inactive baclofen 10 mg tablet RxNorm: 630655 1 Tablet(s) PO TID as needed 08/11/2017 09/09/2017 Inactive Opana ER 15 mg table t, crush resistant, extended release RxNorm: 008407 1 Tablet(s) PO Q12H 08/11/2017 09/28/2017 Inactive Remeron 15 mg tablet RxNorm: 263925 TAKE ONE TABLET BY MOUTH EVERY NIGHT AT BEDTIME 08/02/2017 10/30/2017 Inactive oxymorphone 5 mg tablet RxNorm: 806403 1 Tablet(s) PO Q6 PRN 08/02/2017 09/28/2017 Inactive Opana ER 5 mg tablet , crush resistant, extended release RxNorm: 294686 1 Tablet(s) PO Q6 PRN 08/01/2017 08/10/2017 Inactive Protonix 40 mg table t,delayed release RxNorm: 891405 TAKE ONE TABLET BY [facility] DAILY 06/26/2017 06/25/2017 In active Protonix 40 mg table t,delayed release RxNorm: 395272 TAKE ONE TABLET BY [facility] DAILY 06/26/2017 02/05/2019 In active bupropion HCl XL 300 mg 24 hr tablet, extended release RxNorm: 204736 TAKE ONE TABLET BY MOUTH DAILY 06/13/2017 12/09/2017 Inactive tizanidine 4 mg tablet RxNorm: 805600 1 Tablet(s) PO TID as needed 06/13/2017 06/12/2017 Inactive tizanidine 4 mg tablet RxNorm: 033969 1 Tablet(s) PO TID as needed 06/13/2017 09/10/2017 Inactive baclofen 10 mg tablet RxNorm: 557128 1 Tablet(s) PO TID as needed 06/13/2017 07/12/2017 Inactive Opana ER 15 mg table t, crush resistant, extended release RxNorm: 201979 1 Tablet(s) PO Q12H 06/09/2017 08/07/2017 Inactive Opana ER 5 mg tablet , crush resistant, extended release RxNorm: 109212 1 Tablet(s) PO Q6 PRN 06/09/2017 07/31/2017 Inactive diclofenac sodium 75 mg tablet,delayed release RxNorm: 781743 1 Tablet(s) PO BID 06/09/2017 09/06/2017 In active clonazepam 1 mg tablet RxNorm: 848681 1/2 Tablet(s) PO daily 05/24/2017 11/18/2017 Inactive bupropion HCl XL 300 mg 24 hr tablet, extended release RxNorm: 601359 TAKE ONE TABLET BY MOUTH DAILY 03/16/2017 06/12/2017 Inactive clonazepam 1 mg tablet RxNorm: 986158 1/2 Tablet(s) PO daily 02/22/2017 05/18/2017 Inactive Remeron 15 mg tablet RxNorm: 938258 TAKE ONE TABLET BY MOUTH EVERY NIGHT AT BEDTIME 02/06/2017 2017 Inactive Protonix 40 mg table t,delayed release RxNorm: 508100 TAKE ONE TABLET BY [facility] DAILY 01/26/2017 06/24/2017 In active mupirocin 2 % topica l ointment RxNorm: 835103 1 Application TOP BID 01/12/2017 01/18/2017 Inactive Bactrim DS 800 mg-16 0 mg tablet RxNorm: 535721 1 Tablet(s) PO BID 11/17/2016 11/23/2016 Inactive mupirocin 2 % topica l ointment RxNorm: 557159 1 Application TOP BID 11/10/2016 11/16/2016 Inactive Bactrim DS 800 mg-16 0 mg tablet RxNorm: 907235 1 Tablet(s) PO BID 11/10/2016 11/16/2016 Inactive bupropion HCl XL 300 mg 24 hr tablet, extended release RxNorm: 946302 TAKE ONE TABLET BY MOUTH DAILY 11/07/2016 03/06/2017 Inactive liothyronine 5 mcg t ablet RxNorm: 205693 1 Tablet(s) PO daily 11/01/2016 10/26/2017 Inactive levothyroxine 200 mc g tablet RxNorm: 648280 1 Tablet(s) PO daily 10/04/2016 09/28/2017 Inactive clonazepam 1 mg tablet RxNorm: 836850 1/2 Tablet(s) PO daily 09/21/2016 03/18/2017 Inactive clonazepam 1 mg tablet RxNorm: 444641 1/2 Tablet(s) PO daily 09/16/2016 09/20/2016 Inactive Abilify 2 mg tablet RxNorm: 115649 1 Tablet(s) PO daily 09/16/2016 10/13/2016 Inactive trazodone 50 mg tablet RxNorm: 574678 1/2 Tablet(s) as needed 1 Tablet(s) PO Q HS 09/16/2016 01/13/2017 In active morphine 15 mg immed iate release tablet RxNorm: 202187 1 Tablet(s) PO Q6 PRN 09/16/2016 04/06/2017 In active baclofen 10 mg tablet RxNorm: 971277 1 Tablet(s) PO TID as needed 09/16/2016 06/12/2017 Inactive MS Contin 30 mg tabl et,extended release RxNorm: 874637 1 Tablet(s) PO Q12H 09/16/2016 04/06/2017 In active Remeron 15 mg tablet RxNorm: 845712 1 Tablet(s) PO QHS 08/19/2016 09/15/2016 Inactive levothyroxine 200 mc g tablet RxNorm: 379374 1 Tablet(s) PO daily 08/11/2016 10/03/2016 Inactive bupropion HCl XL 300 mg 24 hr tablet, extended release RxNorm: 962786 TAKE ONE TABLET BY MOUTH DAILY 08/11/2016 11/06/2016 Inactive Protonix 40 mg table t,delayed release RxNorm: 551768 1 Tablet(s) PO daily 06/17/2016 12/13/2016 In active bupropion HCl XL 300 mg 24 hr tablet, extended release RxNorm: 203969 1 Tablet(s) PO daily 05/12/2016 07/10/2016 Inactive bupropion HCl XL 300 mg 24 hr tablet, extended release RxNorm: 253077 1 Tablet(s) PO daily 05/12/2016 05/11/2016 Inactive Cialis 20 mg tablet RxNorm: 911324 1 Tablet(s) PO PRN 02/16/2016 No Stop Date Active not more than 1 tab in 24 hours morphine ER 10 mg ca psule,extended release pellets RxNorm: 835539 1 Tablet(s) PO Q6 as needed 02/16/2016 11/16/2016 Inactive clonazepam 1 mg tablet RxNorm: 814935 1/2 Tablet(s) PO BID 02/16/2016 09/15/2016 Inactive trazodone 50 mg tablet RxNorm: 844916 1/2 Tablet(s) as needed 1 Tablet(s) PO Q HS 02/16/2016 08/18/2016 In active trazodone 50 mg tablet RxNorm: 395046 1/2 Tablet(s) 1 Tablet(s) PO QHS 11/17/2015 02/15/2016 In active trazodone 50 mg tablet RxNorm: 712903 1 Tablet(s) PO QHS 10/19/2015 11/16/2015 Inactive levothyroxine 200 mc g tablet RxNorm: 437177 1 Tablet(s) PO daily 10/02/2015 08/10/2016 Inactive Wellbutrin XL 150 mg 24 hr tablet, extended release RxNorm: 239777 1 Tablet(s) PO daily 10/02/2015 05/11/2016 Inactive levothyroxine 200 mc g tablet RxNorm: 619665 1 Tablet(s) PO daily 09/30/2015 10/01/2015 Inactive Wellbutrin XL 150 mg 24 hr tablet, extended release RxNorm: 042429 1 Tablet(s) PO daily 09/30/2015 10/01/2015 Inactive trazodone 50 mg tablet RxNorm: 444983 1 Tablet(s) PO QHS 09/11/2015 10/10/2015 Inactive trazodone 50 mg tablet RxNorm: 099845 1 Tablet(s) PO QHS 09/11/2015 09/10/2015 Inactive Cymbalta 30 mg capsu le,delayed release RxNorm: 637907 1 Capsule(s) PO daily 09/07/2015 11/16/2015 In active Cymbalta 60 mg capsu le,delayed release RxNorm: 796741 1 Capsule(s) PO daily 08/31/2015 08/30/2015 In active Cymbalta 30 mg capsu le,delayed release RxNorm: 044342 1 Capsule(s) PO daily take with 60mg to make 90 mg daily 08/31/2015 09/06/2015 Inactive Cymbalta 30 mg capsu le,delayed release RxNorm: 372249 1 Capsule(s) PO daily take with 60mg to make 90 mg daily 08/31/2015 08/30/2015 Inactive Cymbalta 60 mg capsu le,delayed release RxNorm: 307495 1 Capsule(s) PO daily x 7 days and then increase to 90mg daily 08/31/2015 09/07/2015 Inactive levothyroxine 200 mc g tablet RxNorm: 233760 1 Tablet(s) PO daily 08/14/2015 09/29/2015 Inactive Wellbutrin XL 150 mg 24 hr tablet, extended release RxNorm: 810175 1 Tablet(s) PO daily 07/14/2015 09/29/2015 Inactive Cialis 20 mg tablet RxNorm: 173469 1 Tablet(s) PO PRN 07/02/2015 02/15/2016 Inactive not more than 1 tab in 24 hours liothyronine 5 mcg t ablet RxNorm: 111982 1 Tablet(s) PO daily 2015 05/29/2016 Inactive clonazepam 1 mg tablet RxNorm: 714408 1 Tablet(s) PO TID 2015 02/15/2016 Inactive minocycline 50 mg ta blet RxNorm: 496234 1 Tablet(s) PO daily 2015 05/11/2016 Inactive Wellbutrin XL 150 mg 24 hr tablet, extended release RxNorm: 229364 1 Tablet(s) PO daily 04/23/2015 07/13/2015 Inactive levothyroxine 200 mc g tablet RxNorm: 102043 1 Tablet(s) PO daily 04/23/2015 08/13/2015 Inactive Aleve oral RxNorm: 926437 oral No Start Date Active Tylenol 500 mg RxNorm: oral No Start Date Active morphine ER 15 mg ta blet,extended release RxNorm: 850581 oral No Start Date 11/16/2016 Inactive Trazadone 25 mg RxNorm: 2 PO daily No Start Date 09/11/2015 Inactive diclofenac oral RxNorm: 3355 oral No Start Date 05/04/2018 Inactive clonazepam 1 mg tablet RxNorm: 708397 1 Tablet(s) PO QHS No Start Date 06/04/2015 Inactive Wellbutrin XL 150 mg 24 hr tablet, extended release RxNorm: 585885 1 Tablet(s) PO daily No Start Date 04/22/2015 Inactive minocycline 50 mg ta blet RxNorm: 174742 1 Tablet(s) PO daily No Start Date 06/04/2015 Inactive methadone 5 mg tablet RxNorm: 047293 1 Tablet(s) PO Q8 No Start Date 02/15/2016 Inactive Protonix 40 mg table t,delayed release RxNorm: 831236 Tablet(s) PO daily No Start Date 06/16/2016 Inactive Opana ER 15 mg table t, crush resistant, extended release RxNorm: 723271 1 Tablet(s) PO Q12H No Start Date 06/08/2017 Inactive MS Contin 30 mg tabl et,extended release RxNorm: 341691 1 Tablet(s) PO Q12H No Start Date 02/15/2016 Inactive Opana ER 15 mg table t, crush resistant, extended release RxNorm: 682369 1 Tablet(s) PO BID No Start Date 09/15/2016 Inactive liothyronine 5 mcg t ablet RxNorm: 880448 1 Tablet(s) PO daily No Start Date 06/04/2015 Inactive Cialis 20 mg tablet RxNorm: 141241 1 Tablet(s) PO PRN No Start Date 07/01/2015 Inactive not more than 1 tab in 24 hours baclofen 10 mg tablet RxNorm: 409637 1 Tablet(s) PO TID as needed No Start Date 05/11/2016 Inactive morphine 15 mg immed iate release tablet RxNorm: 833274 1 Tablet(s) PO Q6 PRN as needed No Start Date 02/15/2016 Inactive levothyroxine 200 mc g tablet RxNorm: 403154 1 Tablet(s) PO daily No Start Date 04/22/2015 Inactive Opana ER 5 mg tablet , crush resistant, extended release RxNorm: 765995 1 Tablet(s) PO Q6 No Start Date 06/08/2017 Inactive Medication Administered Medication Codes Instruc tions Start Date Status cyanocobalamin (vit B-12) 1,000 mcg/mL injection solut ion RxNorm: 836159 1Milliliter 12/27/2018 No longer Active Immunizations No Immunization data Assessments Condition Codes Effectiv e Dates Chronic pain syndrome ICD-10: G89.4 ICD-9: 338.4 03/12/2019 Hypothyroidism, unspecified ICD-10: E03.9 ICD-9: 244.9 03/12/2019 Encounter for screening for lipoid disorders ICD-10: [...] Reason For Visit Effective Dates Notes fatigue 03/12/2019 fatigue 01/07/2019 fatigue 12/27/2018 fatigue [...] 29.4 pg 01/07/2019 Cbc With Differential Ord2 [place]% 10.9 % 01/07/2019 Cbc With Differential Ord2 [...] 1.77 K/ul 01/07/2019 Cbc With Differential Ord2 [place] ABS# 0.5 K/ul 01/07/2019 Cbc With Differential Ord2 Eos ABS# 0.1 K/ul 01/07/2019 Cbc With Differential Ord2 Baso ABS# 0.0 K/ul 01/07/2019 Free T4 Hzc754 FREE T4 2.05 ng/dL 01/07/2019 Lipid Ord30 CHOL 189 mg/dL 01/07/2019 Lipid Ord30 HDL 58.0 mg/dl 01/07/2019 Lipid Ord30 TRIG 155 mg/dL 01/07/2019 Lipid Ord30 LDL 100 mg/dL 01/07/2019 Lipid Ord30 C/HDL 3.3 Ratio 01/07/2019 Comp Metabolic Jus179 NA 137 mEq/L 01/07/2019 Comp Metabolic Sjg482 K 4.2 mEq/L 01/07/2019 Comp Metabolic Xif330 CL 104 mEq/L 01/07/2019 Comp Metabolic Lkh511 CO2 26.0 mEq/L 01/07/2019 Comp Metabolic Epz067 AN ION GAP 11 01/07/2019 Comp Metabolic Lgp997 GL UCOSE 64 mg/dL 01/07/2019 Comp Metabolic Emk799 Cr eat 0.8 mg/dL 01/07/2019 Comp Metabolic Gln873 eG FR 110 ml/min/1.73m2 12/28 Comp Metabolic Sbi194 BUN 7 mg/dL 01/07/2019 Comp Metabolic Ivo403 B/ C Ratio 9.0 Ratio 01/07/2019 Comp Metabolic Ijg376 CA LCIUM 9.7 mg/dL 01/07/2019 Comp Metabolic Ksy455 AL K PHOS 64 U/L 01/07/2019 Comp Metabolic Bez944 T(SGOT) 32 U/L 01/07/2019 Comp Metabolic Its437 AL T(SGPT) 44 U/L 01/07/2019 Comp Metabolic Rgu016 BI LI T 0.3 mg/dL 01/07/2019 Comp Metabolic Nbx035 AL BUMIN 4.3 g/dL 01/07/2019 Comp Metabolic Kys317 TP RO 6.5 g/dL 01/07/2019 Comp Metabolic Wvm605 GL OB 2.2 g/dL 01/07/2019 Comp Metabolic Xmo812 A/ G Ratio 2.0 Ratio 01/07/2019 Comp Metabolic Dxd461 Os mo 270 mOsmo 01/07/2019 Free T4 Xzo443 FREE T4 1.54 ng/dL 11/05/2018 Vitamin D 25 Oh Ckc0150 VITAMIN D, 25 HYDROXY 40.65 ng/mL 11/05/2018 Tsh Ord6 TSH (3rd IS) 0.02 uIU/mL 11/05/2018 Vitamin D 25 Oh [id number] VITAMIN D, 25 HYDROXY 30.96 ng/mL 07/06/2018 Comp Metabolic Gho233 NA 141 mEq/L 07/06/2018 Comp Metabolic Xmi675 K 4.2 mEq/L 07/06/2018 Comp Metabolic Iqn234 CL 103 mEq/L 07/06/2018 Comp Metabolic Xgu994 CO2 29.0 mEq/L 07/06/2018 Comp Metabolic Axi881 AN ION GAP 13 07/06/2018 Comp Metabolic Bjk177 GL UCOSE 105 mg/dL 07/06/2018 Comp Metabolic Sad116 Cr eat 0.8 mg/dL 07/06/2018 Comp Metabolic Rso221 eG FR 101 ml/min/1.73m2 06/27 Comp Metabolic Zki501 BUN 7 mg/dL 07/06/2018 Comp Metabolic Ddx422 B/ C Ratio 8.3 Ratio 07/06/2018 Comp Metabolic Kiz390 CA LCIUM 9.9 mg/dL 07/06/2018 Comp Metabolic Qvw694 AL K PHOS 65 U/L 07/06/2018 Comp Metabolic Fem878 T(SGOT) 21 U/L 07/06/2018 Comp Metabolic Fak255 AL T(SGPT) 31 U/L 07/06/2018 Comp Metabolic Qpd374 BI LI T 0.3 mg/dL 07/06/2018 Comp Metabolic Wth000 AL BUMIN 4.3 g/dL 07/06/2018 Comp Metabolic Dsd505 TP RO 6.4 g/dL 07/06/2018 Comp Metabolic Umi739 GL OB 2.1 g/dL 07/06/2018 Comp Metabolic Nng240 A/ G Ratio 2.0 Ratio 07/06/2018 Comp Metabolic Gvn176 Os mo 280 mOsmo 07/06/2018 Cbc With [...] 29.3 pg 07/06/2018 Cbc With Differential Ord2 [place]% 10.5 % 07/06/2018 Cbc With Differential Ord2 [...] 1.89 K/ul 07/06/2018 Cbc With Differential Ord2 [place] ABS# 0.5 K/ul 07/06/2018 Cbc With Differential Ord2 Eos ABS# 0.3 K/ul 07/06/2018 Cbc With Differential Ord2 Baso ABS# 0.0 K/ul 07/06/2018 Total Psa Ord10 PSA 0.34 ng/mL 07/06/2018 Tsh Ord6 TSH (3rd IS) 0.02 uIU/mL 07/06/2018 Testosterone Fkr759 Testo 400.6 ng/dL 07/06/2018 Free T4 Bfb085 FREE T4 1.48 ng/dL 07/06/2018 [place] Spotted Fever Igg/Igm 25707 3 [place]THA MT SPOTTED FEVER IGM EIA . 04/04/2018 [place] Spotted Fever Igg/Igm 88893 3 RMSF, IGM 0.24 index 04/04/2018 [place] Spotted Fever Igg/Igm 91143 3 [place]THA MT SPOTTED FEVER IGG EIA FLEX . 04/04/2018 [place] Spotted Fever Igg/Igm 74023 3 RMSF, IGG SCREEN-FLEX Equivocal 04/04/2018 Partha Mtn Spot'D Fev Igg [id number] RMSF, IGG- TITER IFA <1:64 04/04/2018 Ehrlichia Chaffeensis Antibody Igg [id number] EHRLICHIA CHAFFEENSIS IGG <1:64 04/02/2018 Ehrlichia Chaffeensis Antibody Igm 212349 EHRLICHIA CHAFFEENSIS IGM < 1:16 04/02/2018 Lymes Disease Total Antibodies With Western Blot Refle x [id number] B. BURGDORFERI, IGG/IGM 0.23 03/30/2018 Lymes Disease Total Antibodies With Western Blot Refle x [id number] 03/30/2018 Cbc With Differential Ord2 WBC 5.04 [...] 28.7 pg 03/28/2018 Cbc With Differential Ord2 [place]% 16.1 % 03/28/2018 Cbc With Differential Ord2 [...] 1.37 K/ul 03/28/2018 Cbc With Differential Ord2 [place] ABS# 0.8 K/ul 03/28/2018 Cbc With Differential Ord2 Eos ABS# 0.1 K/ul 03/28/2018 Cbc With Differential Ord2 Baso ABS# 0.0 K/ul 03/28/2018 Comp Metabolic Uos073 NA 136 mEq/L 02/16/2018 Comp Metabolic Knn915 K 3.9 mEq/L 02/16/2018 Comp Metabolic Gaj054 CL 103 mEq/L 02/16/2018 Comp Metabolic Whs917 CO2 23.0 mEq/L 02/16/2018 Comp Metabolic Zig723 AN ION GAP 14 02/16/2018 Comp Metabolic Ivd882 GL UCOSE 133 mg/dL 02/16/2018 Comp Metabolic Wqm697 Cr eat 0.8 mg/dL 02/16/2018 Comp Metabolic Jbu875 eG FR 103 ml/min/1.73m2 01/26 Comp Metabolic Yhv180 BUN 7 mg/dL 02/16/2018 Comp Metabolic Tcv219 B/ C Ratio 8.4 Ratio 02/16/2018 Comp Metabolic Cnn702 CA LCIUM 9.3 mg/dL 02/16/2018 Comp Metabolic Tly970 AL K PHOS 71 U/L 02/16/2018 Comp Metabolic Mkq910 T(SGOT) 42 U/L 02/16/2018 Comp Metabolic Una339 AL T(SGPT) 69 U/L 02/16/2018 Comp Metabolic Hxp570 BI LI T 0.3 mg/dL 02/16/2018 Comp Metabolic Nqm186 AL BUMIN 4.1 g/dL 02/16/2018 Comp Metabolic Mvo212 TP RO 6.3 g/dL 02/16/2018 Comp Metabolic Stu337 GL OB 2.2 g/dL 02/16/2018 Comp Metabolic Pzg996 A/ G Ratio 1.8 Ratio 02/16/2018 Comp Metabolic Kcy630 Os mo 272 mOsmo 02/16/2018 Free T4 Ved956 FREE T4 1.85 ng/dL 02/16/2018 Ferritin Ord22 FERRITIN 161.7 ng/mL 02/16/2018 Tsh Ord6 TSH (3rd IS) 0.01 uIU/mL 02/16/2018 Test(s) Not Perfromed [id number] Test(s) Not Performed Test(s) Not Performed. 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 Powerplant Supervisor Fernando Dawnt 02/16/2018 Tibc Ord40 Iron 138 ug/dl 02/16/2018 [...] 26.4 pg 01/05/2018 Cbc With Differential Ord2 [place]% 11.9 % 01/05/2018 Cbc With Differential Ord2 [...] 2.08 K/ul 01/05/2018 Cbc With Differential Ord2 [place] ABS# 0.6 K/ul 01/05/2018 Cbc With Differential Ord2 Eos ABS# 0.2 K/ul 01/05/2018 Cbc With Differential Ord2 Baso ABS# 0.0 K/ul 01/05/2018 Ferritin Ord22 FERRITIN 5.7 ng/mL 12/06/2017 Tibc Ord40 Iron 33 ug/dl 12/06/2017 Tibc Ord40 UIBC 431 ug/dL 12/06/2017 Tibc Ord40 TIBC 464 ug/dL 12/06/2017 Tibc Ord40 Fe-%Sat 7.1 % 12/06/2017 Free T4 Cak617 FREE T4 1.82 ng/dL 12/01/2017 Tsh Ord6 [...] 27.0 pg 12/01/2017 Cbc With Differential Ord2 [place]% 10.6 % 12/01/2017 Cbc With Differential Ord2 [...] 1.92 K/ul 12/01/2017 Cbc With Differential Ord2 [place] ABS# 0.4 K/ul 12/01/2017 Cbc With Differential Ord2 Eos ABS# 0.2 K/ul 12/01/2017 Cbc With Differential Ord2 Baso ABS# 0.0 K/ul 12/01/2017 Comp Metabolic Idt082 NA 136 mEq/L 12/01/2017 Comp Metabolic Bmx434 K 4.6 mEq/L 12/01/2017 Comp Metabolic Ohm201 CL 102 mEq/L 12/01/2017 Comp Metabolic Mxp717 CO2 27.0 mEq/L 12/01/2017 Comp Metabolic Tbj726 AN ION GAP 12 12/01/2017 Comp Metabolic Hwq855 GL UCOSE 90 mg/dL 12/01/2017 Comp Metabolic Uut500 Cr eat 0.7 mg/dL 12/01/2017 Comp Metabolic Mmt399 eG FR 123 ml/min/1.73m2 03/2018 Comp Metabolic Sgw475 BUN 4 mg/dL 12/01/2017 Comp Metabolic Ryo248 B/ C Ratio 5.6 Ratio 12/01/2017 Comp Metabolic Biz425 CA LCIUM 9.0 mg/dL 12/01/2017 Comp Metabolic Sbv198 AL K PHOS 67 U/L 12/01/2017 Comp Metabolic Iri629 T(SGOT) 30 U/L 12/01/2017 Comp Metabolic Sjg895 AL T(SGPT) 29 U/L 12/01/2017 Comp Metabolic Kpg951 BI LI T 0.3 mg/dL 12/01/2017 Comp Metabolic Jxy796 AL BUMIN 4.1 g/dL 12/01/2017 Comp Metabolic Gxn422 TP RO 6.1 g/dL 12/01/2017 Comp Metabolic Wsk235 GL OB 2.0 g/dL 12/01/2017 Comp Metabolic Wrs797 A/ G Ratio 2.0 Ratio 12/01/2017 Comp Metabolic Kmg332 Os mo 268 mOsmo 12/01/2017 Comp Metabolic Byz033 NA 136 mEq/L 02/16/2016 Comp Metabolic Ihc734 K 4.2 mEq/L 02/16/2016 Comp Metabolic Izu713 CL 104 mEq/L 02/16/2016 Comp Metabolic Whm080 CO2 20.0 mEq/L 02/16/2016 Comp Metabolic Gvh152 AN ION GAP 16 02/16/2016 Comp Metabolic Pcp956 GL UCOSE 71 mg/dL 02/16/2016 Comp Metabolic Bke631 Cr eat 0.8 mg/dL 02/16/2016 Comp Metabolic Out014 eG FR 113 ml/min/1.73m2 01/26 Comp Metabolic Qex721 BUN 7 mg/dL 02/16/2016 Comp Metabolic Drg863 B/ C Ratio 9.1 Ratio 02/16/2016 Comp Metabolic Wth260 CA LCIUM 9.4 mg/dL 02/16/2016 Comp Metabolic Pnq452 AL K PHOS 57 U/L 02/16/2016 Comp Metabolic Psc775 T(SGOT) 30 U/L 02/16/2016 Comp Metabolic Elv638 AL T(SGPT) 27 U/L 02/16/2016 Comp Metabolic Owg354 BI LI T 0.2 mg/dL 02/16/2016 Comp Metabolic Uhu397 AL BUMIN 4.4 g/dL 02/16/2016 Comp Metabolic Vma564 TP RO 6.5 g/dL 02/16/2016 Comp Metabolic Njd971 GL OB 2.1 g/dL 02/16/2016 Comp Metabolic Dmg222 A/ G Ratio 2.1 Ratio 02/16/2016 Comp Metabolic Cil026 Os mo 268 mOsmo 02/16/2016 Free T4 Vyr205 FREE T4 1.20 ng/dL 02/16/2016 Cbc With [...] 30.2 pg 02/16/2016 Cbc With Differential Ord2 [place]% 9.6 % 02/16/2016 Cbc With Differential Ord2 [...] 1.50 K/ul 02/16/2016 Cbc With Differential Ord2 [place] ABS# 0.5 K/ul 02/16/2016 Cbc With Differential [...] Result Effective Dates Constitutional No recent illness 03/12/2019 Constitutional No [...] contact 01/07/2019 None Full Exam - General 1995 Constitutional general appearance Development: well developed 12/27/2018 None Full Exam - General 1994 Constitutional general appearance Development: appears older than stated age 0112/27/2018 None Full Exam - General 1994 Constitutional general appearance Nourishment: well nourished 12/27/2018 None Full Exam - General 1995 Eyes conjunctiva/eyelids Overall: conjunctiva clear 12/27/2018 None [...] Procedure Codes Date THER/PROPH/DIAG INJ SC/IM CPT-4: 19105 12/27/2018 VITAMIN B12 INJECTION CPT-4: J3420 12/27/2018 PPPS, SUBSEQ VISIT CPT- 4: G0439 09/17/2018 Vital Signs Date Vital 03/12/2019 Blood Pressure 1: 130/76 Code: 8480-6 BMI: 38.6 Code: 36885-2 Heart Rate 1: 83 bpm Height: 5'6" SpO2: 99% Weight: 239 lbs 01/07/2019 Blood Pressure 1: 124/80 Code: 8480-6 BMI: 38.3 Code: 57753-3 Heart Rate 1: 88 bpm Height: 5'6" SpO2: 97% Weight: 237 lbs 12/27/2018 Blood Pressure 1: 122/80 Code: 8480-6 BMI: 38.6 Code: 21937-3 Heart Rate 1: 72 bpm Height: 5'6" SpO2: 98% Weight: 239 lbs 11/05/2018 Blood Pressure 1: 122/64 Code: 8480-6 BMI: 37.4 Code: 04311-2 Heart Rate 1: 66 bpm Height: 5'6" SpO2: 97% Weight: 232 lbs 09/27/2018 Blood Pressure 1: 92/66 Code: 8480-6 BMI: 37.9 Code: 67146-1 Heart Rate 1: 66 bpm Height: 5'6" SpO2: 98% Weight: 235 lbs 09/17/2018 Blood Pressure 1: 110/72 Code: 8480-6 BMI: 38.3 Code: 53321-7 Heart Rate 1: 77 bpm Height: 5'6" SpO2: 95% Waist Measure (cm): 102 cm Weight: 237 lbs 09/03/2018 Blood Pressure 1: 122/68 Code: 8480-6 BMI: 37.6 Code: 27233-4 Heart Rate 1: 78 bpm Height: 5'6" SpO2: 97% Weight: 233 lbs 07/05/2018 Blood Pressure 1: 94/62 Code: 8480-6 BMI: 36.8 Code: 03189-7 Heart Rate 1: 88 bpm Height: 5'6" SpO2: 99% Weight: 228 lbs 05/04/2018 Blood Pressure 1: 110/80 Code: 8480-6 BMI: 35.5 Code: 18845-5 Heart Rate 1: 80 bpm Height: 5'6" SpO2: 99% Weight: 220 lbs 03/28/2018 Blood Pressure 1: 110/72 Code: 8480-6 BMI: 35.0 Code: 27139-1 Heart Rate 1: 80 bpm Height: 5'6" SpO2: 98% Temperature: 36.2 (C ) / 97.1 (F) Weight: 217 lbs 02/27/2018 Blood Pressure 1: 136/76 Code: 8480-6 BMI: 36.0 Code: 95299-2 Heart Rate 1: 80 bpm Height: 5'6" SpO2: 98% Weight: 223 lbs 12/01/2017 Blood Pressure 1: 132/72 Code: 8480-6 BMI: 33.4 Code: 41556-5 Heart Rate 1: 82 bpm Height: 5'6" SpO2: 97% Weight: 207 lbs 09/29/2017 Blood Pressure 1: 124/68 Code: 8480-6 BMI: 32.1 Code: 00007-6 Heart Rate 1: 77 bpm Height: 5'6" SpO2: 98% Weight: 199 lbs 08/11/2017 Blood Pressure 1: 154/82 Code: 8480-6 BMI: 31.6 Code: 94029-2 Heart Rate 1: 75 bpm Height: 5'6" SpO2: 98% Weight: 196 lbs 06/09/2017 Blood Pressure 1: 148/88 Code: 8480-6 BMI: 28.6 Code: 04265-1 Heart Rate 1: 88 bpm Height: 5'6" SpO2: 98% Weight: 177 lbs 04/07/2017 Blood Pressure 1: 140/84 Code: 8480-6 BMI: 30.3 Code: 19720-3 Heart Rate 1: 81 bpm Height: 5'6" SpO2: 99% Weight: 188 lbs 11/17/2016 Blood Pressure 1: 130/72 Code: 8480-6 Heart Rate 1: 63 bpm Height: SpO2: 93% Weight: 11/10/2016 Blood Pressure 1: 128/86 Code: 8480-6 BMI: 30.3 Code: 83905-7 Heart Rate 1: 84 bpm Height: 5'6" SpO2: 96% Weight: 188 lbs 10/14/2016 Heigh t: 5'6" 09/16/2016 Blood Pressure 1: 130/80 Code: 8480-6 BMI: 30.3 Code: 88268-7 Heart Rate 1: 67 bpm Height: 5'6" SpO2: 99% Weight: 188 lbs 08/19/2016 Blood Pressure 1: 110/62 Code: 8480-6 BMI: 29.9 Code: 96364-0 Heart Rate 1: 70 bpm Height: 5'6" SpO2: 97% Weight: 185 lbs 06/17/2016 Blood Pressure 1: 112/68 Code: 8480-6 BMI: 27.6 Code: 29502-9 Heart Rate 1: 61 bpm Height: 5'6" SpO2: 98% Weight: 171 lbs 05/12/2016 Blood Pressure 1: 130/76 Code: 8480-6 BMI: 29.7 Code: 77593-1 Heart Rate 1: 103 bpm Height: 5'6" SpO2: 98% Weight: 184 lbs 02/16/2016 Blood Pressure 1: 140/82 Code: 8480-6 BMI: 28.7 Code: 66993-8 Heart Rate 1: 66 bpm Height: 5'6" SpO2: 99% Weight: 178 lbs 11/17/2015 Blood Pressure 1: 120/74 Code: 8480-6 BMI: 29.4 Code: 20813-5 Heart Rate 1: 90 bpm Height: 5'6" SpO2: 94% Weight: 182 lbs 08/28/2015 Blood Pressure 1: 128/76 Code: 8480-6 BMI: 27.9 Code: 66809-2 Heart Rate 1: 80 bpm Height: 5'6" SpO2: 98% Weight: 173 lbs 05/28/2015 Blood Pressure 1: 122/70 Code: 8480-6 BMI: 27.0 Code: 64872-7 Heart Rate 1: 74 bpm Height: 5'6" SpO2: 98% Weight: 167 lbs 04/23/2015 Blood Pressure 1: 110/60 Code: 8480-6 BMI: 27.0 Code: 82994-7 Heart Rate 1: 68 bpm Height: 5'6" Weight: 167 lbs Functional Status No Functional Status data History of Present Illness Symptom Name Status Resu lt Effective Date Notes Limitation on Activities moderately limits activities 03/12/2019 [...] and Resolution ongoing 09/03/2018 None hypothyroid Quality devops engineer fe 09/03/2018 None hypothyroid Onset and [...] fatigue Quality constant 07/05/2018 None hypothyroid Quality devops engineer fe 07/05/2018 None hypothyroid Onset and [...] Findings weight loss 03/28/2018 None hypothyroid Quality devops engineer fe 02/27/2018 None hypothyroid Onset and [...] Encounters Encounter Performer Loca tion Codes Date ([id number]) 77118 EST. P ATIENT, LEVEL III Diagnosis: Hypothyroidism, unspecified[ICD10: E03.9] Diagnosis: Chronic pain syndrome[ICD10: G89.4] Leydi Jacobo MD, [facility] CPT-4: 71463 03/12/2019 ([id number]) 87771 EST. P ATIENT, LEVEL IV Diagnosis: Chronic pain syndrome[ICD10: G89.4] Diagnosis: Hypothyroidism, unspecified[ICD10: E03.9] Diagnosis: Encounter for screening for lipoid disorders[ICD10: Z13.220] Diagnosis: Major depressive disorder, recurrent, moderate[ICD10: F33.1] Leydi Jacobo MD, [facility] CPT-4: 54520 01/07/2019 ([id number]) 59309 EST. P ATIENT, LEVEL III Diagnosis: Obstructive sleep apnea (adult) (pediatric)[ICD10: G47.33] Diagnosis: Hypothyroidism, unspecified[ICD10: E03.9] Diagnosis: Vitamin B12 deficiency anemia, unspecified[ICD10: D51.9] Leydi Jacobo MD, [facility] CPT-4: 39368 12/27/2018 ([id number]) 98555 EST. P ATIENT, LEVEL IV Diagnosis: Hypothyroidism, unspecified[ICD10: E03.9] Diagnosis: Major depressive disorder, recurrent, moderate[ICD10: F33.1] Diagnosis: Chronic pain syndrome[ICD10: G89.4] Leydi Jacobo MD, [facility] CPT-4: 81454 11/05/2018 ([id number]) 22267 EST. P ATIENT, LEVEL IV Diagnosis: Chronic pain syndrome[ICD10: G89.4] Diagnosis: Hypothyroidism, unspecified[ICD10: E03.9] Diagnosis: Other fatigue[ICD10: R53.83] Diagnosis: Other obesity due to excess calories[ICD10: E66.09] Diagnosis: Major depressive disorder, recurrent, moderate[ICD10: F33.1] Leydi Jacobo MD, [facility] CPT-4: 44536 09/27/2018 ([id number]) 45923 EST. P ATIENT, LEVEL III Diagnosis: Chronic pain syndrome[ICD10: G89.4] Leydi Jacobo MD, [facility] CPT-4: 56817 09/03/2018 ([id number]) 63309 EST. P ATIENT, LEVEL IV Diagnosis: Hypothyroidism, unspecified[ICD10: E03.9] Diagnosis: Major depressive disorder, recurrent, moderate[ICD10: F33.1] Diagnosis: Chronic pain syndrome[ICD10: G89.4] Diagnosis: Other male erectile dysfunction[ICD10: N52.8] Diagnosis: Other fatigue[ICD10: R53.83] Diagnosis: Encounter for screening for malignant neoplasm of prostate[ICD10: Z12.5] Leydi Jacobo MD, [facility] CPT-4: 39427 07/05/2018 ([id number]) 17609 EST. P ATIENT, LEVEL IV Diagnosis: Chronic pain syndrome[ICD10: G89.4] Diagnosis: Hypothyroidism, unspecified[ICD10: E03.9] Diagnosis: Major depressive disorder, recurrent, moderate[ICD10: F33.1] Leydi Jacobo MD, [facility] CPT-4: 46676 05/04/2018 64289 EST. PATIENT, LEVEL IV Diagnosis: Melena[ICD10: K92.1] Diagnosis: Other malaise[ICD10: R53.81] Diagnosis: Other fatigue[ICD10: R53.83] Diagnosis: Pain in unspecified joint[ICD10: M25.50] Diagnosis: Diarrhea, unspecified[ICD10: R19.7] Denae Jacobo MD, [facility] CPT-4: 49869 03/28/2018 ([id number]) 38554 EST. P ATIENT, LEVEL IV Diagnosis: Chronic pain syndrome[ICD10: G89.4] Diagnosis: Hypothyroidism, unspecified[ICD10: E03.9] Diagnosis: Other obesity due to excess calories[ICD10: E66.09] Diagnosis: Major depressive disorder, recurrent, moderate[ICD10: F33.1] Diagnosis: Obstructive sleep apnea (adult) (pediatric)[ICD10: G47.33] Leydi Jacobo MD, [facility] CPT-4: 24816 02/27/2018 21616 EST. PATIENT, LEVEL IV Diagnosis: Other specified hypothyroidism[ICD10: E03.8] Diagnosis: Chronic pain syndrome[ICD10: G89.4] Diagnosis: Major depressive disorder, recurrent, moderate[ICD10: F33.1] [facility] CPT-4: 24332 12/01/2017 ([id number]) 00835 EST. P ATIENT, LEVEL IV Diagnosis: Chronic pain syndrome[ICD10: G89.4] Diagnosis: Alcohol dependence, uncomplicated[ICD10: F10.20] Diagnosis: Major depressive disorder, recurrent, moderate[ICD10: F33.1] Leydi Jacobo MD, [facility] CPT-4: 94759 09/29/2017 ([id number]) 53554 EST. P ATIENT, LEVEL IV Diagnosis: Chronic pain syndrome[ICD10: G89.4] Diagnosis: Alcohol dependence, uncomplicated[ICD10: F10.20] Diagnosis: Major depressive disorder, recurrent, moderate[ICD10: F33.1] Leydi Jacobo MD, [facility] CPT-4: 50492 08/11/2017 ([id number]) 13070 EST. P ATIENT, LEVEL III Diagnosis: Chronic pain syndrome[ICD10: G89.4] Diagnosis: Major depressive disorder, recurrent, moderate[ICD10: F33.1] Leydi Jacobo MD, [facility] CPT-4: 02377 06/09/2017 ([id number]) 30249 EST. P ATIENT, LEVEL III Diagnosis: Chronic pain syndrome[ICD10: G89.4] Diagnosis: Pain in left knee[ICD10: M25.562] Leydi Jcaobo MD, [facility] CPT- 4: 43351 04/07/2017 [id number] EST. PATIENT, LEVEL II Diagnosis: Superficial foreign body of left upper arm, initial encounter[ICD10: S40.852A] Diagnosis: Cellulitis of left upper limb[ICD10: L03.114] Leydi Jacobo MD, [facility] CPT-4: 69418 11/17/2016 56641 EST. PATIENT, LEVEL II Diagnosis: Cellulitis of left upper limb[ICD10: L03.114] Leydi Jacobo MD, [facility] CPT-4: 84318 11/10/2016 ([id number]) 82020 EST. P ATIENT, LEVEL III Diagnosis: Chronic pain syndrome[ICD10: G89.4] Diagnosis: Major depressive disorder, recurrent, moderate[ICD10: F33.1] Leydi Jacobo MD, [facility] CPT-4: 51734 10/14/2016 95825 EST. PATIENT, LEVEL IV Diagnosis: Psychophysiologic insomnia[ICD10: F51.04] Diagnosis: Major depressive disorder, recurrent, moderate[ICD10: F33.1] Diagnosis: Alcohol dependence, uncomplicated[ICD10: F10.20] Diagnosis: Chronic pain syndrome[ICD10: G89.4] Leydi Jacobo MD, [facility] CPT-4: 22161 09/16/2016 ([id number]) 62571 EST. P ATIENT, LEVEL III Diagnosis: Pain in left shoulder[ICD10: M25.512] Diagnosis: Major depressive disorder, recurrent, moderate[ICD10: F33.1] Diagnosis: Psychophysiologic insomnia[ICD10: F51.04] Leydi Jacobo MD, [facility] CPT-4: 60239 08/19/2016 ([id number]) 24435 EST. P ATIENT, LEVEL III Diagnosis: Gastro-esophageal reflux disease without esophagitis[ICD10: K21.9] Diagnosis: Hypothyroidism, unspecified[ICD10: E03.9] Leydi Jacobo MD, [facility] CPT-4: 71805 06/17/2016 ([id number]) 96271 EST. P ATIENT, LEVEL IV Diagnosis: Gastro-esophageal reflux disease without esophagitis[ICD10: K21.9] Diagnosis: Hypothyroidism, unspecified[ICD10: E03.9] Diagnosis: Major depressive disorder, recurrent, moderate[ICD10: F33.1] Leydi Jacobo MD, [facility] CPT-4: 87373 05/12/2016 ([id number]) 46303 EST. P ATIENT, LEVEL III Diagnosis: Cervicalgia[ICD10: M54.2] Diagnosis: Hypothyroidism, unspecified[ICD10: E03.9] Diagnosis: Other male erectile dysfunction[ICD10: N52.8] Leydi Jacobo MD, [facility] CPT-4: 98111 02/16/2016 ([id number]) 06403 EST. P ATIENT, LEVEL III Diagnosis: Lumbago with sciatica, unspecified side[ICD10: M54.40] Diagnosis: Other male erectile dysfunction[ICD10: N52.8] Leydi Jacobo MD, [facility] CPT-4: 18041 11/17/2015 ([id number]) 12587 EST. P ATIENT, LEVEL III Diagnosis: Lumbago with sciatica, unspecified side[ICD10: M54.40] Diagnosis: Hypothyroidism, unspecified[ICD10: E03.9] Diagnosis: Other male erectile dysfunction[ICD10: N52.8] [facility] CPT-4: 86221 08/28/2015 ([id number]) 97986 EST. P ATIENT, LEVEL III Diagnosis: Back pain, chronic[ICD9: 724.5] Diagnosis: Depression[ICD9: 311] Diagnosis: Hypothyroid[ICD9: 244.9] Diagnosis: Bilateral calf pain[ICD9: 729.5] [facility] CPT-4: 14624 05/28/2015 ([id number]) OFFICE VISI T, NEW - LEVEL 4 Diagnosis: Back pain, chronic[ICD9: 724.5] Diagnosis: Depression[ICD9: 311] Diagnosis: Hypothyroid[ICD9: 244.9] [facility] CPT-4: 49802 04/23/2015 Plan of Care Planned Activity Notes C odes Status Date Visit Plan: Hypothyroidism -refer t o Noemi Yan at [facility] Chronic Pain Syndrome - pt has chronic pain - has been maintained on current medications, has not sought out other medications, only uses PRN pain medications as directed, and understands the consequences of over-medication. 03/12/2019 Appointment: Leydi Hightower WPtel: [address] [place] [address] (30 min) Complex 03/12/2019 Patient Education: Patient Medication Summary Completed 03/12/2019 Appointment: Leydi Hightower WPtel: [address] [place], [place] [phone] (30 min) Complex 03/05/2019 Visit Plan: Chronic [...] ultrasound 01/07/2019 Appointment: [facility] [phone] [phone] (30 min) Complex 01/07/2019 Patient Education: Patient [...] office 12/27/2018 Appointment: [facility] [phone] [phone] (15 min) Moderate 12/27/2018 Patient Education: Patient [...] current medications. 11/05/2018 Appointment: Leydi Hightower [facility]Ptel[phone] (30 min) Complex 11/05/2018 Patient Education: Patient [...] of control. 09/27/2018 Appointment: Leydi Hightower WPtel: [facility] (15 min) Moderate 09/27/2018 Patient Education: [...] care surrogate. 09/17/2018 Appointment: Leydi Hightower WPtel: [facility] - Annual Wellness Visit 09/17/2018 Patient Education: Patient Medication Summary Completed 09/17/2018 Visit Plan: Chronic Pain Syndrome - pt has chronic pain - has been maintained on current medications, has not sought out other medications, only uses PRN pain medications as directed, and understands the consequences of over-medication. 09/03/2018 Appointment: Leydi Hightower WPtel: [facility] [place] [address] (30 min) Complex 09/03/2018 Patient Education: Patient [...] exposure. No change in current medications. Fatigue-weight thvh-EG-zwepv labs including testosterone level 07/05/2018 Visit Plan: [...] exposure. No change in current medications. Fatigue-weight hbnx-FC-qibiw labs including testosterone level 07/05/2018 Appointment: Leydi Hightowre WPtel: [address] [place], [place] [phone] [place] (15 min) Moderate 07/05/2018 Patient Education: [...] BID 05/04/2018 Appointment: [facility] [phone] [phone] (15 min) Moderate 05/04/2018 Patient Education: [...] 03/28/2018 Appointment: Den[facility] [phone] [phone] (30 min) Complex 03/28/2018 Appointment: Nurse [...] time. 02/27/2018 Appointment: Leydi Hightower WPtel: [phone] [phone] (15 min) Moderate 02/27/2018 Patient Education: [...] control. 12/01/2017 Appointment: Den[facility] Mart[facility]nez [facility]el[facility] [phone] [phone] (30 min) Complex 12/01/2017 Patient Education: [...] outpatient treatment 09/29/2017 Appointment: Leydi Hightower WPtel: [phone] (30 min) Complex 09/29/2017 Patient Education: [...] cons ider 08/11/2017 Appointment: Leydi Hightower WPtel: [phone] (30 min) Complex 08/11/2017 Patient Education: [...] medications. 06/09/2017 Appointment: Leydi Hightower WPtel: [phone] [phone] (30 min) Complex 06/09/2017 Patient Education: [...] do not completely resolve 11/17/2016 Appointment: Leydi Hightowertel: [phone] (30 min) Complex 11/17/2016 Patient Education: [...] in pain. 11/10/2016 Appointment: Leydi Hightower WPtel: [phone] (30 min) Complex 11/10/2016 Patient Education: [...] verbalized understanding of plan. 10/14/2016 Appointment: Leydi Hightowerl: [phone] (30 min) Complex 10/14/2016 Patient Education: Patient [...] will try 09/16/2016 Appointment: Leydi Hightower WPtel: [phone] (30 min) Complex 09/16/2016 Patient Education: Patient Medication Summary Completed 09/16/2016 Visit Plan: Left shoulder and elbow pain-xray shoulder and elbow Ascezgssbs-ulnrddnd-vwnebrxmbmeu-d/c trazodone-start remeron at bedtime Pt has been [...] this patient. 08/19/2016 Appointment: [phone] [facility] Complex 08/19/2016 Patient Education: Patient [...] Obesity Completed 06/17/2016 Appointment: Leydi Hightower [facility]el[facility] [phone] [phone] (30 min) Complex 06/09/2016 Visit Plan: Esophageal [...] control. 05/12/2016 Appointment: [facility] Hightower [facility]el[facility] [phone] [phone] (30 min) Complex 05/12/2016 Patient Education: Patient [...] in office. 05/28/2015 Appointment: Leydi Hightower WPtel: [address] [place], [place] [phone] (30 min) Complex 05/28/2015 Patient Education: Patient [...] Care Plan: COMPLETE CBC AUTOMATED LOINC : 94739-6 Ordered 04/23/2015 Instructions Comment . Chronic Pain [...] x 11 days-attending outpatient treatment . Chronic Pain Syndr ome - pt [...] referral to psychologist-patient will consider . Hypothyroidism -re sierra to Noemi Yan at [facility] Chronic Pain Syndrome - pt has chronic pain - has been maintained on current medications, has not sought out other medications, only uses PRN pain medications as directed, and understands the consequences of over-medication. . Chronic pain-manag ed by Dr Perez-no [...] exposure. No change in current medications. Fatigue-weight agjo-XH-fxcny labs including testosterone level ABILIFY 2mg daily WORK ON CUTTING BACK [...] medications are managed by Dr. Perez. . Chronic Pain Syndr ome - pt [...] since dressing dose-repeat labs today-consider thyroid ultrasound RECOMMEND SLEEP STUD Y BELVIQ DECREASE LEVOTHYROXINE [...] and elbow pain-xray shou lder and elbow Terkowgerf-gzzowtwx-drrvkbpihoqa-d/c trazodone-start remeron at bedtime Pt has been [...] exposure. No change in current medications. Fatigue-weight hhng-PG-abpxq labs including testosterone level . Chronic Pain [...] situational exposure. No change in current medications. CHECK LABS AT NEXT A PPT INCREASE ACID RAW [employer] WORKER TO TWICE DAILY . Chronic Pain [...]
--- OUTSIDE RECORDS SUMMARY | 2020-03-17 14:52 | XMS REPORT | CCD ---
Author Author Thai Castillo Organization Sara Jacobo MD, [facility] Address [address] [place] [address] Phone Care Team Providers Care Plant Operations Coordinator Name Role Phone PP Unavailable CCM Unavailable Summary Purpose Interface Exchange Insurance Providers Payer name Policy type / Coverage type Covered republican ID Effective Begin Date Effective End Date WPS Medicare Part B Medicare Part B [id number] Unknown Unknown [facility] icare Part B [id number] Unknown Unk nown Family history Father Diagnosis Age At Onset Colon cancer Unknown Social History Social History Element Codes Description Effective Dates Marital status Unknown D ivorced 04/23/[address]: 778344238 Never smoker 04/23/[address]: 699261 Currently drinks alcohol occasionally drinks 04/23/2015 Allergies, Adverse Reactions, Alerts Allergies, Adverse Reactions, Alerts data not found Past Medical History Illness Codes Condition Status Onset Date Resolved Date Chronic pain syndrome ICD-9: 338.4 ICD-10: G89.4 Active 10/13/2016 Unknown Major depressive dis order, recurrent, moderate ICD-9: 296.32 ICD-10: F33.1 Active 10/13/2016 Unknown Pain in left knee ICD-9: 719.46 ICD-10: M25.562 Active 04/07/2017 Unknown Cellulitis of left u pper limb ICD-9: 682.3 ICD-10: L03.114 Active 11/16/2016 Unknown Superficial foreign body of left upper arm, initial encounter ICD-9: 912.6 ICD-10: S40.852A Active 11/16/2016 Unknown Alcohol dependence, uncomplicated ICD-9: 303.90 ICD-10: F10.20 Active 09/15/2016 Unknown Psychophysiologic in somnia ICD-9: 780.52 ICD-10: F51.04 Active 09/15/2016 Unknown Pain in left shoulder ICD-9: 719.41 ICD-10: M25.512 Active 08/18/2016 Unknown Gastro-esophageal re flux disease without esophagitis ICD-9: 530.81 ICD-10: K21.9 Active 06/16/2016 Unknown Hypothyroidism, unsp ecified ICD-9: 244.9 ICD-10: E03.9 Active 06/16/2016 Unknown Cervicalgia ICD-9: 723.1 ICD-10: M54.2 Active 02/15/2016 Unknown Other male erectile dysfunction ICD-9: 607.84 ICD-10: N52.8 Active 02/15/2016 Unknown Lumbago with sciatic a, [...] syndrome ICD-9: 338.4 ICD-10: G89.4 10/13/2016 Active Major depressive dis order, recurrent, moderate ICD-9: 296.32 ICD-10: F33.1 10/13/2016 Active Pain in left knee ICD-9: 719.46 ICD-10: M25.562 04/07/2017 Active Cellulitis of left u pper limb ICD-9: 682.3 ICD-10: L03.114 11/16/2016 Active Superficial foreign body of left upper arm, initial encounter ICD-9: 912.6 ICD-10: S40.852A 11/16/2016 Active Alcohol dependence, uncomplicated ICD-9: 303.90 ICD-10: F10.20 09/15/2016 Active Psychophysiologic in somnia ICD-9: 780.52 ICD-10: F51.04 09/15/2016 Active Pain in left shoulder ICD-9: 719.41 ICD-10: M25.512 08/18/2016 Active Gastro-esophageal re flux disease without esophagitis ICD-9: 530.81 ICD-10: K21.9 06/16/2016 Active Hypothyroidism, unsp ecified ICD-9: 244.9 ICD-10: E03.9 06/16/2016 Active Cervicalgia ICD-9: 723.1 ICD-10: M54.2 02/15/2016 Active Other male erectile dysfunction ICD-9: 607.84 ICD-10: N52.8 02/15/2016 Active Lumbago with sciatic a, unspecified [...] Date Stop Date Sta tus Fill Instructions bupropion HCl XL 300 mg 24 hr tablet, extended release RxNorm: 963078 TAKE ONE TABLET BY MOUTH DAILY 06/13/2017 12/09/2017 Active tizanidine 4 mg tablet RxNorm: 895694 1 Tablet(s) PO TID as needed 06/13/2017 07/12/2017 Active baclofen 10 mg tablet RxNorm: 762045 1 Tablet(s) PO TID as needed 06/13/2017 07/12/2017 Active tizanidine 4 mg tablet RxNorm: 593789 1 Tablet(s) PO TID as needed 06/13/2017 06/12/2017 Inactive Opana ER 15 mg table t, crush resistant, extended release RxNorm: 748567 1 Tablet(s) PO Q12H 06/09/2017 08/07/2017 Active Opana ER 5 mg tablet , crush resistant, extended release RxNorm: 925672 1 Tablet(s) PO Q6 PRN 06/09/2017 No Stop Date Active diclofenac sodium 75 mg tablet,delayed release RxNorm: 000457 1 Tablet(s) PO BID 06/09/2017 09/06/2017 Ac tive clonazepam 1 mg tablet RxNorm: 761556 1/2 Tablet(s) PO daily 05/24/2017 11/19/2017 Active bupropion HCl XL 300 mg 24 hr tablet, extended release RxNorm: 719413 TAKE ONE TABLET BY MOUTH DAILY 03/16/2017 06/12/2017 Inactive clonazepam 1 mg tablet RxNorm: 595178 1/2 Tablet(s) PO daily 02/22/2017 05/18/2017 Inactive Remeron 15 mg tablet RxNorm: 347626 TAKE ONE TABLET BY MOUTH EVERY NIGHT AT BEDTIME 02/06/2017 2017 Inactive Protonix 40 mg table t,delayed release RxNorm: 410587 TAKE ONE TABLET BY MO UT DAILY 01/26/2017 06/24/2017 Ac tive mupirocin 2 % topica l ointment RxNorm: 820967 1 Application TOP BID 01/12/2017 01/18/2017 Inactive Bactrim DS 800 mg-16 0 mg tablet RxNorm: 514167 1 Tablet(s) PO BID 11/17/2016 11/23/2016 Inactive mupirocin 2 % topica l ointment RxNorm: 397538 1 Application TOP BID 11/10/2016 11/16/2016 Inactive Bactrim DS 800 mg-16 0 mg tablet RxNorm: 311454 1 Tablet(s) PO BID 11/10/2016 11/16/2016 Inactive bupropion HCl XL 300 mg 24 hr tablet, extended release RxNorm: 749005 TAKE ONE TABLET BY MOUTH DAILY 11/07/2016 03/06/2017 Inactive liothyronine 5 mcg t ablet RxNorm: 720755 1 Tablet(s) PO daily 11/01/2016 10/26/2017 Active levothyroxine 200 mc g tablet RxNorm: 867720 1 Tablet(s) PO daily 10/04/2016 09/28/2017 Active clonazepam 1 mg tablet RxNorm: 333359 1/2 Tablet(s) PO daily 09/21/2016 03/18/2017 Inactive trazodone 50 mg tablet RxNorm: 285571 1/2 Tablet(s) as needed 1 Tablet(s) PO Q HS 09/16/2016 01/13/2017 In active clonazepam 1 mg tablet RxNorm: 825242 1/2 Tablet(s) PO daily 09/16/2016 09/20/2016 Inactive Abilify 2 mg tablet RxNorm: 742263 1 Tablet(s) PO daily 09/16/2016 10/13/2016 Inactive morphine 15 mg immed iate release tablet RxNorm: 001313 1 Tablet(s) PO Q6 PRN 09/16/2016 04/06/2017 In active baclofen 10 mg tablet RxNorm: 509477 1 Tablet(s) PO TID as needed 09/16/2016 06/12/2017 Inactive MS Contin 30 mg tabl et,extended release RxNorm: 218737 1 Tablet(s) PO Q12H 09/16/2016 04/06/2017 In active Remeron 15 mg tablet RxNorm: 104743 1 Tablet(s) PO QHS 08/19/2016 09/15/2016 Inactive levothyroxine 200 mc g tablet RxNorm: 203345 1 Tablet(s) PO daily 08/11/2016 10/03/2016 Inactive bupropion HCl XL 300 mg 24 hr tablet, extended release RxNorm: 809254 TAKE ONE TABLET BY MOUTH DAILY 08/11/2016 11/06/2016 Inactive Protonix 40 mg table t,delayed release RxNorm: 714461 1 Tablet(s) PO daily 06/17/2016 12/13/2016 In active bupropion HCl XL 300 mg 24 hr tablet, extended release RxNorm: 165598 1 Tablet(s) PO daily 05/12/2016 07/10/2016 Inactive bupropion HCl XL 300 mg 24 hr tablet, extended release RxNorm: 842251 1 Tablet(s) PO daily 05/12/2016 05/11/2016 Inactive Cialis 20 mg tablet RxNorm: 534506 1 Tablet(s) PO PRN 02/16/2016 No Stop Date Active not more than 1 tab in 24 hours morphine ER 10 mg ca psule,extended release pellets RxNorm: 046793 1 Tablet(s) PO Q6 as needed 02/16/2016 11/16/2016 Inactive clonazepam 1 mg tablet RxNorm: 975404 1/2 Tablet(s) PO BID 02/16/2016 09/15/2016 Inactive trazodone 50 mg tablet RxNorm: 304380 1/2 Tablet(s) as needed 1 Tablet(s) PO Q HS 02/16/2016 08/18/2016 In active trazodone 50 mg tablet RxNorm: 452227 1/2 Tablet(s) 1 Tablet(s) PO QHS 11/17/2015 02/15/2016 In active trazodone 50 mg tablet RxNorm: 859058 1 Tablet(s) PO QHS 10/19/2015 11/16/2015 Inactive levothyroxine 200 mc g tablet RxNorm: 876576 1 Tablet(s) PO daily 10/02/2015 08/10/2016 Inactive Wellbutrin XL 150 mg 24 hr tablet, extended release RxNorm: 156137 1 Tablet(s) PO daily 10/02/2015 05/11/2016 Inactive levothyroxine 200 mc g tablet RxNorm: 827317 1 Tablet(s) PO daily 09/30/2015 10/01/2015 Inactive Wellbutrin XL 150 mg 24 hr tablet, extended release RxNorm: 223163 1 Tablet(s) PO daily 09/30/2015 10/01/2015 Inactive trazodone 50 mg tablet RxNorm: 582517 1 Tablet(s) PO QHS 09/11/2015 10/10/2015 Inactive trazodone 50 mg tablet RxNorm: 702883 1 Tablet(s) PO QHS 09/11/2015 09/10/2015 Inactive Cymbalta 30 mg capsu le,delayed release RxNorm: 956329 1 Capsule(s) PO daily 09/07/2015 11/16/2015 In active Cymbalta 60 mg capsu le,delayed release RxNorm: 202987 1 Capsule(s) PO daily 08/31/2015 08/30/2015 In active Cymbalta 30 mg capsu le,delayed release RxNorm: 491188 1 Capsule(s) PO daily take with 60mg to make 90 mg daily 08/31/2015 09/06/2015 Inactive Cymbalta 30 mg capsu le,delayed release RxNorm: 560016 1 Capsule(s) PO daily take with 60mg to make 90 mg daily 08/31/2015 08/30/2015 Inactive Cymbalta 60 mg capsu le,delayed release RxNorm: 183502 1 Capsule(s) PO daily x 7 days and then increase to 90mg daily 08/31/2015 09/07/2015 Inactive levothyroxine 200 mc g tablet RxNorm: 700561 1 Tablet(s) PO daily 08/14/2015 09/29/2015 Inactive Wellbutrin XL 150 mg 24 hr tablet, extended release RxNorm: 297291 1 Tablet(s) PO daily 07/14/2015 09/29/2015 Inactive Cialis 20 mg tablet RxNorm: 391956 1 Tablet(s) PO PRN 07/02/2015 02/15/2016 Inactive not more than 1 tab in 24 hours liothyronine 5 mcg t ablet RxNorm: 949693 1 Tablet(s) PO daily 2015 05/29/2016 Inactive clonazepam 1 mg tablet RxNorm: 484916 1 Tablet(s) PO TID 2015 02/15/2016 Inactive minocycline 50 mg ta blet RxNorm: 866991 1 Tablet(s) PO daily 2015 05/11/2016 Inactive Wellbutrin XL 150 mg 24 hr tablet, extended release RxNorm: 579592 1 Tablet(s) PO daily 04/23/2015 07/13/2015 Inactive levothyroxine 200 mc g tablet RxNorm: 191061 1 Tablet(s) PO daily 04/23/2015 08/13/2015 Inactive diclofenac oral RxNorm: 3355 oral No Start Date Active Aleve oral RxNorm: 920565 oral No Start Date Active Tylenol 500 mg RxNorm: oral No Start Date Active morphine ER 15 mg ta blet,extended release RxNorm: 293615 oral No Start Date 11/16/2016 Inactive Trazadone 25 mg RxNorm: 2 PO daily No Start Date 09/11/2015 Inactive clonazepam 1 mg tablet RxNorm: 339070 1 Tablet(s) PO QHS No Start Date 06/04/2015 Inactive Wellbutrin XL 150 mg 24 hr tablet, extended release RxNorm: 846702 1 Tablet(s) PO daily No Start Date 04/22/2015 Inactive minocycline 50 mg ta blet RxNorm: 435367 1 Tablet(s) PO daily No Start Date 06/04/2015 Inactive methadone 5 mg tablet RxNorm: 376916 1 Tablet(s) PO Q8 No Start Date 02/15/2016 Inactive Protonix 40 mg table t,delayed release RxNorm: 914969 Tablet(s) PO daily No Start Date 06/16/2016 Inactive Opana ER 15 mg table t, crush resistant, extended release RxNorm: 454640 1 Tablet(s) PO Q12H No Start Date 06/08/2017 Inactive MS Contin 30 mg tabl et,extended release RxNorm: 303914 1 Tablet(s) PO Q12H No Start Date 02/15/2016 Inactive Opana ER 15 mg table t, crush resistant, extended release RxNorm: 826055 1 Tablet(s) PO BID No Start Date 09/15/2016 Inactive liothyronine 5 mcg t ablet RxNorm: 276468 1 Tablet(s) PO daily No Start Date 06/04/2015 Inactive Cialis 20 mg tablet RxNorm: 912092 1 Tablet(s) PO PRN No Start Date 07/01/2015 Inactive not more than 1 tab in 24 hours baclofen 10 mg tablet RxNorm: 201703 1 Tablet(s) PO TID as needed No Start Date 05/11/2016 Inactive morphine 15 mg immed iate release tablet RxNorm: 801774 1 Tablet(s) PO Q6 PRN as needed No Start Date 02/15/2016 Inactive levothyroxine 200 mc g tablet RxNorm: 514658 1 Tablet(s) PO daily No Start Date 04/22/2015 Inactive Opana ER 5 mg tablet , crush resistant, extended release RxNorm: 665567 1 Tablet(s) PO Q6 No Start Date 06/08/2017 Inactive Medication Administered No Medication Administered data Immunizations No Immunization data Assessments Condition Codes Effectiv e Dates Chronic pain syndrome ICD-10: G89.4 ICD-9: 338.4 06/09/2017 Major depressive disorder, recurrent, moderate ICD-10: F33.1 ICD-9: 296.32 06/09/2017 Pain in left knee ICD-10: M25.562 ICD-9: 719.46 04/07/2017 Cellulitis of left upper limb ICD-10 : L03.114 ICD-9: 682.3 11/17/2016 Superficial foreign body of left upper arm, initial en counter ICD-10: S40.852A ICD-9: 912.6 11/17/2016 Alcohol dependence, uncomplicated IC D-10: F10.20 ICD-9: 303.90 09/16/2016 Psychophysiologic insomnia ICD-10: F 51.04 ICD-9: 780.52 09/16/2016 Pain in left shoulder ICD-10: M25.51 2 ICD-9: 719.41 08/19/2016 Hypothyroidism, unspecified ICD-10: E03.9 ICD-9: 244.9 06/17/2016 Gastro-esophageal reflux disease without esophagitis ICD-10: K21.9 ICD-9: 530.81 06/17/2016 Cervicalgia ICD-10: M54.2 ICD-9: 723.1 02/16/2016 Other male erectile dysfunction ICD- 10: N52.8 ICD-9: 607.84 02/16/2016 Lumbago with sciatica, unspecified side ICD-10: M54.40 ICD-9: 724.3 11/17/2015 Back pain, chronic ICD-9: 724.5 05/28/2015 Depression ICD-9: 311 Hypothyroid ICD-9: 244.9 05/28/2015 Bilateral calf pain ICD-9: 729.5 05/28/2015 Reason For Visit Reason For Visit Effective Dates Notes back pain 06/09/2017 [place] back pain 04/07/2017 [place] sores 11/17/2016 sores 11/10/2016 back pain 10/14/2016 back pain 09/16/2016 back pain 08/19/2016 back pain 06/17/2016 back pain 05/12/2016 back pain 02/16/2016 back pain 11/17/2015 back pain 08/28/2015 depression 05/28/2015 depression 04/23/2015 Results Observation Observation Code Item Item Code Result Date Comp Metabolic Uys360 NA 136 mEq/L 02/16/2016 Comp Metabolic Olp674 K 4.2 mEq/L 02/16/2016 Comp Metabolic Uuq551 CL 104 mEq/L 02/16/2016 Comp Metabolic Nvx034 CO2 20.0 mEq/L 02/16/2016 Comp Metabolic Rdo500 AN ION GAP 16 02/16/2016 Comp Metabolic Oyn355 GL UCOSE 71 mg/dL 02/16/2016 Comp Metabolic Gfu669 Cr eat 0.8 mg/dL 02/16/2016 Comp Metabolic Gpv912 eG FR 113 ml/min/1.73m2 01/26 Comp Metabolic Hid021 BUN 7 mg/dL 02/16/2016 Comp Metabolic Ivv041 B/ C Ratio 9.1 Ratio 02/16/2016 Comp Metabolic Vpb411 CA LCIUM 9.4 mg/dL 02/16/2016 Comp Metabolic Ntp514 AL K PHOS 57 U/L 02/16/2016 Comp Metabolic Oob960 T(SGOT) 30 U/L 02/16/2016 Comp Metabolic Pwp446 AL T(SGPT) 27 U/L 02/16/2016 Comp Metabolic Uij196 BI LI T 0.2 mg/dL 02/16/2016 Comp Metabolic Nab914 AL BUMIN 4.4 g/dL 02/16/2016 Comp Metabolic Uen692 TP RO 6.5 g/dL 02/16/2016 Comp Metabolic Wbe382 GL OB 2.1 g/dL 02/16/2016 Comp Metabolic Ryk080 A/ G Ratio 2.1 Ratio 02/16/2016 Comp Metabolic Hld801 Os mo 268 mOsmo 02/16/2016 Free T4 Uto822 FREE T4 1.20 ng/dL 02/16/2016 Cbc With Differential Ord2 WBC 5.32 K/ul 02/16/2016 Cbc With Differential Ord2 RBC 4.24 M/ul 02/16/2016 Cbc With Differential Ord2 HGB 12.8 g/dl 02/16/2016 Cbc With Differential Ord2 HCT 38.4 % 02/16/2016 Cbc With Differential Ord2 Neut% 60.1 % 02/16/2016 Cbc With Differential Ord2 Lymph% 28.2 % 02/16/2016 Cbc With Differential Ord2 MCV 90.6 fl 02/16/2016 Cbc With Differential Ord2 [place]% 9.6 % 02/16/2016 Cbc With Differential Ord2 MCH 30.2 pg 02/16/2016 Cbc With Differential Ord2 MCHC 33.3 pg 02/16/2016 Cbc With Differential Ord2 Eos% 1.7 % 02/16/2016 Cbc With Differential Ord2 PLT 377 K/ul 02/16/2016 Cbc With Differential Ord2 Baso% 0.4 % 02/16/2016 Cbc With Differential Ord2 RDW 12.8 % 02/16/2016 Cbc With Differential Ord2 Neut ABS# 3.20 K/ul 02/16/2016 Cbc With Differential Ord2 Lymph ABS# 1.50 K/ul 02/16/2016 Cbc With Differential Ord2 [place] ABS# 0.5 K/ul 02/16/2016 Cbc With Differential [...] Result Effective Dates Constitutional No recent illness 06/09/2017 Constitutional No [...] Development: appears stated age 0504/23/2015 None Procedures No Procedures data Vital Signs Date Vital 06/09/2017 Blood Pressure 1: 148/88 Code: 8480-6 BMI: 28.6 Code: 59078-8 Heart Rate 1: 88 bpm Height: 5'6" SpO2: 98% Weight: 177 lbs 04/07/2017 Blood Pressure 1: 140/84 Code: 8480-6 BMI: 30.3 Code: 71560-0 Heart Rate 1: 81 bpm Height: 5'6" SpO2: 99% Weight: 188 lbs 11/17/2016 Blood Pressure 1: 130/72 Code: 8480-6 Heart Rate 1: 63 bpm Height: SpO2: 93% Weight: 11/10/2016 Blood Pressure 1: 128/86 Code: 8480-6 BMI: 30.3 Code: 17828-9 Heart Rate 1: 84 bpm Height: 5'6" SpO2: 96% Weight: 188 lbs 10/14/2016 Heigh t: 5'6" 09/16/2016 Blood Pressure 1: 130/80 Code: 8480-6 BMI: 30.3 Code: 52321-5 Heart Rate 1: 67 bpm Height: 5'6" SpO2: 99% Weight: 188 lbs 08/19/2016 Blood Pressure 1: 110/62 Code: 8480-6 BMI: 29.9 Code: 05215-6 Heart Rate 1: 70 bpm Height: 5'6" SpO2: 97% Weight: 185 lbs 06/17/2016 Blood Pressure 1: 112/68 Code: 8480-6 BMI: 27.6 Code: 86786-1 Heart Rate 1: 61 bpm Height: 5'6" SpO2: 98% Weight: 171 lbs 05/12/2016 Blood Pressure 1: 130/76 Code: 8480-6 BMI: 29.7 Code: 40278-6 Heart Rate 1: 103 bpm Height: 5'6" SpO2: 98% Weight: 184 lbs 02/16/2016 Blood Pressure 1: 140/82 Code: 8480-6 BMI: 28.7 Code: 15815-4 Heart Rate 1: 66 bpm Height: 5'6" SpO2: 99% Weight: 178 lbs 11/17/2015 Blood Pressure 1: 120/74 Code: 8480-6 BMI: 29.4 Code: 13593-9 Heart Rate 1: 90 bpm Height: 5'6" SpO2: 94% Weight: 182 lbs 08/28/2015 Blood Pressure 1: 128/76 Code: 8480-6 BMI: 27.9 Code: 46846-3 Heart Rate 1: 80 bpm Height: 5'6" SpO2: 98% Weight: 173 lbs 05/28/2015 Blood Pressure 1: 122/70 Code: 8480-6 BMI: 27.0 Code: 20486-9 Heart Rate 1: 74 bpm Height: 5'6" SpO2: 98% Weight: 167 lbs 04/23/2015 Blood Pressure 1: 110/60 Code: 8480-6 BMI: 27.0 Code: 16100-9 Heart Rate 1: 68 bpm Height: 5'6" Weight: 167 lbs Functional Status No Functional Status data History of Present Illness Symptom Name Status Resu lt Effective Date Notes back pain Location in th e midline [...] Encounters Encounter Performer Loca tion Codes Date ([id number]) 44897 EST. P ATIENT, LEVEL III Diagnosis: Chronic pain syndrome[ICD10: G89.4] Diagnosis: Major depressive disorder, recurrent, moderate[ICD10: F33.1] Leydi Jacobo MD, [facility] CPT-4: 72919 06/09/2017 ([id number]) 02157 EST. [facility] Diagnosis: Chronic pain syndrome[ICD10: G89.4] Diagnosis: Pain in left knee[ICD10: M25.562] Leydi Jacobo MD, [facility] CPT- 4: 38210 04/07/2017 [id number] EST. PATIENT, LEVEL II Diagnosis: Superficial foreign body of left upper arm, initial encounter[ICD10: S40.852A] Diagnosis: Cellulitis of left upper limb[ICD10: L03.114] Leydi Jacobo MD, [facility] CPT-4: 11207 11/17/2016 46010 EST. PATIENT, LEVEL II Diagnosis: Cellulitis of left upper limb[ICD10: L03.114] Leydi Jacobo MD, [facility] CPT-4: 94496 11/10/2016 ([id number]) 36698 EST. [facility] Diagnosis: Chronic pain syndrome[ICD10: G89.4] Diagnosis: Major depressive disorder, recurrent, moderate[ICD10: F33.1] Leydi Jacobo MD, [facility] CPT-4: 59618 10/14/2016 72734 EST. PATIENT, LEVEL IV Diagnosis: Psychophysiologic insomnia[ICD10: F51.04] Diagnosis: Major depressive disorder, recurrent, moderate[ICD10: F33.1] Diagnosis: Alcohol dependence, uncomplicated[ICD10: F10.20] Diagnosis: Chronic pain syndrome[ICD10: G89.4] Leydi Jacobo MD, [facility] CPT-4: 54725 09/16/2016 ([id number]) 14649 EST. P ATIENT, LEVEL III Diagnosis: Pain in left shoulder[ICD10: M25.512] Diagnosis: Major depressive disorder, recurrent, moderate[ICD10: F33.1] Diagnosis: Psychophysiologic insomnia[ICD10: F51.04] Leydi Jacobo MD, [facility] CPT-4: 89464 08/19/2016 ([id number]) 08629 EST. [facility] Diagnosis: Gastro-esophageal reflux disease without esophagitis[ICD10: K21.9] Diagnosis: Hypothyroidism, unspecified[ICD10: E03.9] Leydi Jacobo MD, [facility] CPT-4: 53904 06/17/2016 ([id number]) 60739 EST. P ATIENT, LEVEL IV Diagnosis: Gastro-esophageal reflux disease without esophagitis[ICD10: K21.9] Diagnosis: Hypothyroidism, unspecified[ICD10: E03.9] Diagnosis: Major depressive disorder, recurrent, moderate[ICD10: F33.1] Leydi Jacobo MD, [facility] CPT-4: 46306 05/12/2016 ([id number]) 02393 EST. P ATIENT, LEVEL III Diagnosis: Cervicalgia[ICD10: M54.2] Diagnosis: Hypothyroidism, unspecified[ICD10: E03.9] Diagnosis: Other male erectile dysfunction[ICD10: N52.8] Leydi Jacobo MD, [facility] CPT-4: 35162 02/16/2016 ([id number]) 77404 EST. P ATIENT, LEVEL III Diagnosis: Lumbago with sciatica, unspecified side[ICD10: M54.40] Diagnosis: Other male erectile dysfunction[ICD10: N52.8] Leydi Jacobo MD, [facility] CPT-4: 20883 11/17/2015 ([id number]) 37948 EST. P ATIENT, LEVEL III Diagnosis: Lumbago with sciatica, unspecified side[ICD10: M54.40] Diagnosis: Hypothyroidism, unspecified[ICD10: E03.9] Diagnosis: Other male erectile dysfunction[ICD10: N52.8] Leydi Jacobo MD, [facility] CPT-4: 31827 08/28/2015 ([id number]) 85592 EST. P ATIENT, LEVEL III Diagnosis: Back pain, chronic[ICD9: 724.5] Diagnosis: Depression[ICD9: 311] Diagnosis: Hypothyroid[ICD9: 244.9] Diagnosis: Bilateral calf pain[ICD9: 729.5] Julieta Jacobo MD, [facility] CPT-4: 33348 05/28/2015 ([id number]) OFFICE VISI T, NEW - LEVEL 4 Diagnosis: Back pain, chronic[ICD9: 724.5] Diagnosis: Depression[ICD9: 311] Diagnosis: Hypothyroid[ICD9: 244.9] [facility] CPT-4: 26152 04/23/2015 Plan of Care Planned Activity Notes C odes Status Date Visit Plan: Chronic Pain Syndrome - pt h as chronic pain - has been maintained on current medications, has not sought out other medications, only uses PRN pain medications as directed, and understands the consequences of over-medication.We will take over medication management since Dr Perez is leaving. Chronic Depression and anxiety - the pt has symptoms of chronic anxiety and depression that have been fairly well controlled since the last office visit. The pt has expected periods of exacerbation with abatement of the symptoms with change in situational exposure. No change in current medications. 06/09/2017 Appointment: Leydi Hightower WPtel: [phone] (30 min) Complex 06/09/2017 Patient Education: Patient Medication Summary Completed 06/09/2017 Patient Education: Obesity Completed 06/09/2017 Visit Plan: Chronic Pain Syndrome - pt h as chronic pain - has been maintained on current medications, has not sought out other medications, only uses PRN pain medications as directed, and understands the consequences of over-medication.We will take over medication management since Dr Perez is leaving. Left knee pain- patient wants a brace-patient to talk with DME to see what type of brace is covered. 04/07/2017 Patient Education: Patient Medication Summary Completed 04/07/2017 Patient Education: Obesity Completed 04/07/2017 Visit Plan: Thorn left forearm lesion re moved today-instructed patient on wound care-continue anti biotic twice daily for 1 more week-call if symptoms do not completely resolve 11/17/2016 Appointment: Leydi Hightower WPtel: [phone] (30 min) Complex 11/17/2016 Patient Education: Patient Medication Summary Completed 11/17/2016 Visit Plan: Abscess/Cellulitis - The pat ient was instructed in appropriate wound care. The patient was instructed to use the antibiotic ointment as per RX. The patient is to call for any change in symptoms, increase in size of the lesion, increase in pain. 11/10/2016 Visit Plan: Abscess/Cellulitis - The pat ient was instructed in appropriate wound care. The patient was instructed to use the antibiotic ointment as per RX. The patient is to call for any change in symptoms, increase in size of the lesion, increase in pain. 11/10/2016 Appointment: Leydi Hightower WPtel: [facility] [address] (30 min) Complex 11/10/2016 Patient Education: Patient Medication Summary Completed 11/10/2016 Visit Plan: Chronic Pain Syndrome - pt h as chronic pain - has been maintained on current medications, has not sought out other medications, only uses PRN pain medications as directed, and understands the consequences of over- medication.Chronic depression-occasional uncontrolled symptoms-increase wellbutrin to 450mg daily-patient will discuss with his and let us know if they agrees to addition of medication. Instructed patient to call if symptoms uncontrolled or if any worse. Patient verbalized understanding of plan. 2015 Appointment: Leydi Hightower WPtel: [phone] (30 min) Complex 10/14/2016 Patient Education: Patient Medication Summary Completed 10/14/2016 Visit Plan: Insomnia-did not tolerated r emeron so we start taking trazodone and is doing well-sleep is improved Depression-uncontrolled but denies suicidal ideation-add abilify 2mg daily-continue wellbutrin-follow up in 1 month, sooner if needed. Patient and verbalized understanding if plan. Alchohol use- recommend patient begin cutting back on alcohol intake gradually-patient states he will try 09/16/2016 Appointment: Leydi Hightower WPtel: [phone] (30 min) Complex 09/16/2016 Patient Education: Patient Medication Summary Completed 09/16/2016 Visit Plan: Left shoulder and elbow pain -xray shoulder and elbow Yllnwdumdc-mjqbvxdl-iffjiygxfhgb-d/c trazodone-start remeron at bedtime Pt has been counseled about the diagnosis of depression, the potential causes, and risks associated with the diagnosis. The pt denies suicidal ideation, or plans. The patient has been counseled about treatment options, and understands the risks associated with treatment of depression, as well as the risks associated with NOT treating the depression.I believe the pt will benefit from medical intervention and an antidepressant has been appropriately prescribed for this patient. 08/19/2016 Appointment: Leydi Hightower WPtel: [phone] [phone] (30 min) Complex 08/19/2016 Patient Education: Patient Medication Summary Completed 08/19/2016 Patient Education: Obesity Completed 08/19/2016 Visit Plan: Esophageal Reflux - the elmer ent has been counseled against excessive intake of caffeine, spicy foods, peppermint, and cinnamon - all of which can exacerbate esophageal reflux.The patient is to take medications as prescribed and call the office if the symptoms are not improving.Hypothyroidism - pt with chronic hypothyroidism, continue with [...] Obesity Completed 06/17/2016 Appointment: Leydi Hightower WPtel: [phone] [place] [address] (30 min) Complex 06/09/2016 Visit Plan: Esophageal Reflux - the elmer ent has been counseled against excessive intake of caffeine, spicy foods, peppermint, and cinnamon - all of which can exacerbate esophageal reflux.The patient is to take medications as prescribed and call the office if the symptoms are not improving.Depression - uncontrolled - Pt has been counseled about the diagnosis of depression, the potential causes, and risks associated with the diagnosis. The pt denies suicidal ideation, or plans. The patient has been counseled about treatment options, and understands the risks associated with treatment of depression, as well as the risks associated with NOT treating the depression.I believe the pt will benefit from medical intervention and an antidepressant has been appropriately prescribed for this patient.Hypothyroidism - pt with chronic hypothyroidism, continue with current medication, will monitor pt to signs or symptoms of lack of adequate supplementation. Pt is to continue with current dose of medication unless directed otherwise. Check labs at regular intervals wither q 3 months or q 6 months based on previous levels of control. 05/12/2016 Appointment: Leydi Hightower WPtel: [address] [place], [place] [phone] (30 min) Complex 05/12/2016 Patient Education: Patient Medication Summary Completed 05/12/2016 Patient Education: Obesity Completed 05/12/2016 Visit Plan: Neck Pain- pt to start with aspercreme or biofreeze to neck three times daily and start neck exercises daily.Hypothyroidism - pt with chronic hypothyroidism, continue with current medication, will monitor pt to signs or symptoms of lack of adequate supplementation. Pt is to continue with current dose of medication unless directed otherwise. Check labs at regular intervals wither q 3 months or q 6 months based on previous levels of control.ED-refill cialis for prn use 02/16/2016 Appointment: (30 min) Complex 02/16/2016 Patient Education: Patient Medication Summary Completed 02/16/2016 Patient Education: .Cervicalgia Neck Pain Completed 02/16/2016 Visit Plan: Chronic pain-managed by Dr Rose bay-no change in treatments ED-samples of cialis for prn use 11/17/2015 Appointment: (30 min) Complex 11/17/2015 Patient Education: Patient Medication Summary Completed 11/17/2015 Visit Plan: Chronic pain-managed by Dr Rose bay-not happy with current treatments and medications-instructed him I will speak with Dr Jacobo for her recommendations Hypothyroidism-no change in medications ED-samples of cialis for prn use 08/28/2015 Appointment: (30 min) Complex 08/28/2015 Patient Education: Patient Medication Summary Completed 08/28/2015 Visit Plan: Hypothyroidism - pt with chr onic hypothyroidism, continue with current medication, will monitor [...] the risks associated with NOT treating the depression.I believe the pt will benefit from medical intervention and an antidepressant has been appropriately prescribed for this patient.Chronic Back pain- Pain medications are managed by Dr. Perez. Bilateral Lower Leg Pain- Physical exam negative. Check D-Dimer today in office. 2014 Appointment: [phone] (30 min) Complex 05/28/2015 Patient Education: Patient Medication Summary Completed 05/28/2015 Visit Plan: Hypothyroidism - pt with chr onic hypothyroidism, continue with current medication, will monitor [...] the risks associated with NOT treating the depression.I believe the pt will benefit from medical intervention and an antidepressant has been appropriately prescribed for this patient.Back pain- See Dr. Perez as scheduled on May 05. Pain medications are managed by Dr. Perez. 04/23/2015 Patient Education: Patient Medication Summary Completed 04/23/2015 Patient Education: [facility] - Saving AutoInj - 18-64 - Dynamic Portal ID Completed 04/23/2015 Patient Education: [facility] - Saving AutoInj - Levothyroxine - 18-64 - Dynamic Portal ID Completed 04/23/2015 Care Plan: COMPLETE CBC AUTOMATED LOINC : 50484-8 Ordered 04/23/2015 Instructions Comment . Neck Pain- pt to s tart [...] and elbow pain-xray shou lder and elbow Vehvpcucpe-ckcbtzwz-eyaefajiqzyl-d/c trazodone-start remeron at bedtime Pt has been [...] if symptoms do not completely resolve . Hypothyroidism - p t with chronic [...] see what type of brace is covered. ABILIFY 2mg daily WORK ON CUTTING BACK [...] ED-samples of cialis for prn use . Esophageal Reflux - the patient has [...]
--- OUTSIDE RECORDS SUMMARY | 2020-03-17 14:53 | XMS REPORT | CCD ---
Author Author Thai Castillo Organization Sara Jacobo MD, [facility] Address [address] [place] [address] Phone Care Team Providers Care Public Transportation Inspector Name Role Phone PP Unavailable CCM Unavailable Summary Purpose Interface Exchange Insurance Providers Payer name Policy type / Coverage type Covered republican ID Effective Begin Date Effective End Date WPS Medicare Part B Medicare Part B [id number] Unknown Unknown [facility] icare Part B [id number] Unknown Unk nown Family history Father Diagnosis Age At Onset Colon cancer Unknown Social History Social History Element Codes Description Effective Dates Marital status Unknown D ivorced 04/23/[address]: 060372986 Never smoker 04/23/[address]: 789436 Currently drinks alcohol occasionally drinks 04/23/2015 Allergies, [...] mg 24 hr tablet, extended release RxNorm: 442043 TAKE ONE TABLET BY MOUTH DAILY 06/13/2017 12/09/2017 Active Opana ER 15 mg table t, crush resistant, extended release RxNorm: 574715 1 Tablet(s) PO Q12H 06/09/2017 08/07/2017 Active Opana ER 5 mg tablet , crush resistant, extended release RxNorm: 875890 1 Tablet(s) PO Q6 PRN 06/09/2017 No Stop Date Active diclofenac sodium 75 mg tablet,delayed release RxNorm: 781859 1 Tablet(s) PO BID 06/09/2017 09/06/2017 Ac tive clonazepam 1 mg tablet RxNorm: 584534 1/2 Tablet(s) PO daily 05/24/2017 11/19/2017 Active bupropion HCl XL 300 mg 24 hr tablet, extended release RxNorm: 713505 TAKE ONE TABLET BY MOUTH DAILY 03/16/2017 06/12/2017 Inactive clonazepam 1 mg tablet RxNorm: 530095 1/2 Tablet(s) PO daily 02/22/2017 05/18/2017 Inactive Remeron 15 mg tablet RxNorm: 759322 TAKE ONE TABLET BY MOUTH EVERY NIGHT AT BEDTIME 02/06/2017 2017 Inactive Protonix 40 mg table t,delayed release RxNorm: 893053 TAKE ONE TABLET BY MO UTH DAILY 01/26/2017 06/24/2017 Ac tive mupirocin 2 % topica l ointment RxNorm: 152169 1 Application TOP BID 01/12/2017 01/18/2017 Inactive Bactrim DS 800 mg-16 0 mg tablet RxNorm: 589260 1 Tablet(s) PO BID 11/17/2016 11/23/2016 Inactive mupirocin 2 % topica l ointment RxNorm: 830611 1 Application TOP BID 11/10/2016 11/16/2016 Inactive Bactrim DS 800 mg-16 0 mg tablet RxNorm: 138764 1 Tablet(s) PO BID 11/10/2016 11/16/2016 Inactive bupropion HCl XL 300 mg 24 hr tablet, extended release RxNorm: 142788 TAKE ONE TABLET BY MOUTH DAILY 11/07/2016 03/06/2017 Inactive liothyronine 5 mcg t ablet RxNorm: 745038 1 Tablet(s) PO daily 11/01/2016 10/26/2017 Active levothyroxine 200 mc g tablet RxNorm: 705815 1 Tablet(s) PO daily 10/04/2016 09/28/2017 Active clonazepam 1 mg tablet RxNorm: 583335 1/2 Tablet(s) PO daily 09/21/2016 03/18/2017 Inactive trazodone 50 mg tablet RxNorm: 923725 1/2 Tablet(s) as needed 1 Tablet(s) PO Q HS 09/16/2016 01/13/2017 In active baclofen 10 mg tablet RxNorm: 687472 1 Tablet(s) PO TID as needed 09/16/2016 No Stop Date Active clonazepam 1 mg tablet RxNorm: 403124 1/2 Tablet(s) PO daily 09/16/2016 09/20/2016 Inactive Abilify 2 mg tablet RxNorm: 770878 1 Tablet(s) PO daily 09/16/2016 10/13/2016 Inactive morphine 15 mg immed iate release tablet RxNorm: 219272 1 Tablet(s) PO Q6 PRN 09/16/2016 04/06/2017 In active MS Contin 30 mg tabl et,extended release RxNorm: 991919 1 Tablet(s) PO Q12H 09/16/2016 04/06/2017 In active Remeron 15 mg tablet RxNorm: 923595 1 Tablet(s) PO QHS 08/19/2016 09/15/2016 Inactive levothyroxine 200 mc g tablet RxNorm: 458291 1 Tablet(s) PO daily 08/11/2016 10/03/2016 Inactive bupropion HCl XL 300 mg 24 hr tablet, extended release RxNorm: 837661 TAKE ONE TABLET BY MOUTH DAILY 08/11/2016 11/06/2016 Inactive Protonix 40 mg table t,delayed release RxNorm: 493379 1 Tablet(s) PO daily 06/17/2016 12/13/2016 In active bupropion HCl XL 300 mg 24 hr tablet, extended release RxNorm: 839916 1 Tablet(s) PO daily 05/12/2016 07/10/2016 Inactive bupropion HCl XL 300 mg 24 hr tablet, extended release RxNorm: 928039 1 Tablet(s) PO daily 05/12/2016 05/11/2016 Inactive Cialis 20 mg tablet RxNorm: 927942 1 Tablet(s) PO PRN 02/16/2016 No Stop Date Active not more than 1 tab in 24 hours morphine ER 10 mg ca psule,extended release pellets RxNorm: 740649 1 Tablet(s) PO Q6 as needed 02/16/2016 11/16/2016 Inactive clonazepam 1 mg tablet RxNorm: 111288 1/2 Tablet(s) PO BID 02/16/2016 09/15/2016 Inactive trazodone 50 mg tablet RxNorm: 397963 1/2 Tablet(s) as needed 1 Tablet(s) PO Q HS 02/16/2016 08/18/2016 In active trazodone 50 mg tablet RxNorm: 044379 1/2 Tablet(s) 1 Tablet(s) PO QHS 11/17/2015 02/15/2016 In active trazodone 50 mg tablet RxNorm: 167127 1 Tablet(s) PO QHS 10/19/2015 11/16/2015 Inactive levothyroxine 200 mc g tablet RxNorm: 796373 1 Tablet(s) PO daily 10/02/2015 08/10/2016 Inactive Wellbutrin XL 150 mg 24 hr tablet, extended release RxNorm: 269807 1 Tablet(s) PO daily 10/02/2015 05/11/2016 Inactive levothyroxine 200 mc g tablet RxNorm: 895652 1 Tablet(s) PO daily 09/30/2015 10/01/2015 Inactive Wellbutrin XL 150 mg 24 hr tablet, extended release RxNorm: 043560 1 Tablet(s) PO daily 09/30/2015 10/01/2015 Inactive trazodone 50 mg tablet RxNorm: 264900 1 Tablet(s) PO QHS 09/11/2015 10/10/2015 Inactive trazodone 50 mg tablet RxNorm: 048737 1 Tablet(s) PO QHS 09/11/2015 09/10/2015 Inactive Cymbalta 30 mg capsu le,delayed release RxNorm: 674350 1 Capsule(s) PO daily 09/07/2015 11/16/2015 In active Cymbalta 60 mg capsu le,delayed release RxNorm: 814445 1 Capsule(s) PO daily 08/31/2015 08/30/2015 In active Cymbalta 30 mg capsu le,delayed release RxNorm: 942472 1 Capsule(s) PO daily take with 60mg to make 90 mg daily 08/31/2015 09/06/2015 Inactive Cymbalta 30 mg capsu le,delayed release RxNorm: 087171 1 Capsule(s) PO daily take with 60mg to make 90 mg daily 08/31/2015 08/30/2015 Inactive Cymbalta 60 mg capsu le,delayed release RxNorm: 666878 1 Capsule(s) PO daily x 7 days and then increase to 90mg daily 08/31/2015 09/07/2015 Inactive levothyroxine 200 mc g tablet RxNorm: 368321 1 Tablet(s) PO daily 08/14/2015 09/29/2015 Inactive Wellbutrin XL 150 mg 24 hr tablet, extended release RxNorm: 382112 1 Tablet(s) PO daily 07/14/2015 09/29/2015 Inactive Cialis 20 mg tablet RxNorm: 698887 1 Tablet(s) PO PRN 07/02/2015 02/15/2016 Inactive not more than 1 tab in 24 hours liothyronine 5 mcg t ablet RxNorm: 647546 1 Tablet(s) PO daily 2015 05/29/2016 Inactive clonazepam 1 mg tablet RxNorm: 346295 1 Tablet(s) PO TID 2015 02/15/2016 Inactive minocycline 50 mg ta blet RxNorm: 683269 1 Tablet(s) PO daily 2015 05/11/2016 Inactive Wellbutrin XL 150 mg 24 hr tablet, extended release RxNorm: 688701 1 Tablet(s) PO daily 04/23/2015 07/13/2015 Inactive levothyroxine 200 mc g tablet RxNorm: 431275 1 Tablet(s) PO daily 04/23/2015 08/13/2015 Inactive diclofenac oral RxNorm: 3355 oral No Start Date Active Aleve oral RxNorm: 596325 oral No Start Date Active Tylenol 500 mg RxNorm: oral No Start Date Active morphine ER 15 mg ta blet,extended release RxNorm: 933393 oral No Start Date 11/16/2016 Inactive Trazadone 25 mg RxNorm: 2 PO daily No Start Date 09/11/2015 Inactive clonazepam 1 mg tablet RxNorm: 071436 1 Tablet(s) PO QHS No Start Date 06/04/2015 Inactive Wellbutrin XL 150 mg 24 hr tablet, extended release RxNorm: 138841 1 Tablet(s) PO daily No Start Date 04/22/2015 Inactive minocycline 50 mg ta blet RxNorm: 641439 1 Tablet(s) PO daily No Start Date 06/04/2015 Inactive methadone 5 mg tablet RxNorm: 333211 1 Tablet(s) PO Q8 No Start Date 02/15/2016 Inactive Protonix 40 mg table t,delayed release RxNorm: 443765 Tablet(s) PO daily No Start Date 06/16/2016 Inactive Opana ER 15 mg table t, crush resistant, extended release RxNorm: 658972 1 Tablet(s) PO Q12H No Start Date 06/08/2017 Inactive MS Contin 30 mg tabl et,extended release RxNorm: 466125 1 Tablet(s) PO Q12H No Start Date 02/15/2016 Inactive Opana ER 15 mg table t, crush resistant, extended release RxNorm: 203384 1 Tablet(s) PO BID No Start Date 09/15/2016 Inactive liothyronine 5 mcg t ablet RxNorm: 991282 1 Tablet(s) PO daily No Start Date 06/04/2015 Inactive Cialis 20 mg tablet RxNorm: 568054 1 Tablet(s) PO PRN No Start Date 07/01/2015 Inactive not more than 1 tab in 24 hours baclofen 10 mg tablet RxNorm: 341819 1 Tablet(s) PO TID as needed No Start Date 05/11/2016 Inactive morphine 15 mg immed iate release tablet RxNorm: 841924 1 Tablet(s) PO Q6 PRN as needed No Start Date 02/15/2016 Inactive levothyroxine 200 mc g tablet RxNorm: 024063 1 Tablet(s) PO daily No Start Date 04/22/2015 Inactive Opana ER 5 mg tablet , crush resistant, extended release RxNorm: 054332 1 Tablet(s) PO Q6 No Start Date [...] Item Item Code Result Date Comp Metabolic Soa338 NA 136 mEq/L 02/16/2016 Comp Metabolic Kai534 K 4.2 mEq/L 02/16/2016 Comp Metabolic Xja624 CL 104 mEq/L 02/16/2016 Comp Metabolic Xmn595 CO2 20.0 mEq/L 02/16/2016 Comp Metabolic Zzl277 AN ION GAP 16 02/16/2016 Comp Metabolic Rfz311 GL UCOSE 71 mg/dL 02/16/2016 Comp Metabolic Ykw728 Cr eat 0.8 mg/dL 02/16/2016 Comp Metabolic Poc214 eG FR 113 ml/min/1.73m2 01/26 Comp Metabolic Nlu546 BUN 7 mg/dL 02/16/2016 Comp Metabolic Cur142 B/ C Ratio 9.1 Ratio 02/16/2016 Comp Metabolic Fhy364 CA LCIUM 9.4 mg/dL 02/16/2016 Comp Metabolic Gta804 AL K PHOS 57 U/L 02/16/2016 Comp Metabolic Axs734 T(SGOT) 30 U/L 02/16/2016 Comp Metabolic Xjw694 AL T(SGPT) 27 U/L 02/16/2016 Comp Metabolic Czj676 BI LI T 0.2 mg/dL 02/16/2016 Comp Metabolic Ajr566 AL BUMIN 4.4 g/dL 02/16/2016 Comp Metabolic Qnx553 TP RO 6.5 g/dL 02/16/2016 Comp Metabolic Gta581 GL OB 2.1 g/dL 02/16/2016 Comp Metabolic Bwj027 A/ G Ratio 2.1 Ratio 02/16/2016 Comp Metabolic Zpn315 Os mo 268 mOsmo 02/16/2016 Free T4 Ryd292 FREE T4 1.20 ng/dL 02/16/2016 Cbc With [...] 90.6 fl 02/16/2016 Cbc With Differential Ord2 [place]% 9.6 % 02/16/2016 Cbc With Differential Ord2 [...] 1.50 K/ul 02/16/2016 Cbc With Differential Ord2 [place] ABS# 0.5 K/ul 02/16/2016 Cbc With Differential [...] 1: 148/88 Code: 8480-6 BMI: 28.6 Code: 74488-3 Heart Rate 1: 88 bpm Height: 5'6" SpO2: 98% Weight: 177 lbs 04/07/2017 Blood Pressure 1: 140/84 Code: 8480-6 BMI: 30.3 Code: 83492-7 Heart Rate 1: 81 bpm Height: 5'6" SpO2: 99% Weight: 188 lbs 11/17/2016 Blood Pressure 1: 130/72 Code: 8480-6 Heart Rate 1: 63 bpm Height: SpO2: 93% Weight: 11/10/2016 Blood Pressure 1: 128/86 Code: 8480-6 BMI: 30.3 Code: 17675-6 Heart Rate 1: 84 bpm Height: 5'6" SpO2: 96% Weight: 188 lbs 10/14/2016 Heigh t: 5'6" 09/16/2016 Blood Pressure 1: 130/80 Code: 8480-6 BMI: 30.3 Code: 56019-4 Heart Rate 1: 67 bpm Height: 5'6" SpO2: 99% Weight: 188 lbs 08/19/2016 Blood Pressure 1: 110/62 Code: 8480-6 BMI: 29.9 Code: 47068-0 Heart Rate 1: 70 bpm Height: 5'6" SpO2: 97% Weight: 185 lbs 06/17/2016 Blood Pressure 1: 112/68 Code: 8480-6 BMI: 27.6 Code: 73680-0 Heart Rate 1: 61 bpm Height: 5'6" SpO2: 98% Weight: 171 lbs 05/12/2016 Blood Pressure 1: 130/76 Code: 8480-6 BMI: 29.7 Code: 73974-2 Heart Rate 1: 103 bpm Height: 5'6" SpO2: 98% Weight: 184 lbs 02/16/2016 Blood Pressure 1: 140/82 Code: 8480-6 BMI: 28.7 Code: 57171-2 Heart Rate 1: 66 bpm Height: 5'6" SpO2: 99% Weight: 178 lbs 11/17/2015 Blood Pressure 1: 120/74 Code: 8480-6 BMI: 29.4 Code: 61033-7 Heart Rate 1: 90 bpm Height: 5'6" SpO2: 94% Weight: 182 lbs 08/28/2015 Blood Pressure 1: 128/76 Code: 8480-6 BMI: 27.9 Code: 11905-6 Heart Rate 1: 80 bpm Height: 5'6" SpO2: 98% Weight: 173 lbs 05/28/2015 Blood Pressure 1: 122/70 Code: 8480-6 BMI: 27.0 Code: 59490-1 Heart Rate 1: 74 bpm Height: 5'6" SpO2: 98% Weight: 167 lbs 04/23/2015 Blood Pressure 1: 110/60 Code: 8480-6 BMI: 27.0 Code: 06838-5 Heart Rate 1: 68 bpm Height: 5'6" [...] Encounters Encounter Performer Loca tion Codes Date ([id number]) 57125 EST. P ATIENT, LEVEL III Diagnosis: Chronic pain syndrome[ICD10: G89.4] Diagnosis: Major depressive disorder, recurrent, moderate[ICD10: F33.1] [facility] CPT-4: 91524 06/09/2017 ([id number]) 59424 EST. P ATIENT, LEVEL III Diagnosis: Chronic pain syndrome[ICD10: G89.4] Diagnosis: Pain in left knee[ICD10: M25.562] [facility] CPT- 4: 75056 04/07/2017 [id number] EST. PATIENT, LEVEL II Diagnosis: Superficial foreign body of left upper arm, initial encounter[ICD10: S40.852A] Diagnosis: Cellulitis of left upper limb[ICD10: L03.114] Leydi Jacobo MD, [facility] CPT-4: 95658 11/17/2016 74263 EST. PATIENT, LEVEL II Diagnosis: Cellulitis of left upper limb[ICD10: L03.114] Leydi Jacobo MD, [facility] CPT-4: 47134 11/10/2016 ([id number]) 95887 EST. P ATIENT, LEVEL III Diagnosis: Chronic pain syndrome[ICD10: G89.4] Diagnosis: Major depressive disorder, recurrent, moderate[ICD10: F33.1] Leydi Jacobo MD, [facility] CPT-4: 64850 10/14/2016 [id number] EST. PATIENT, LEVEL IV Diagnosis: Psychophysiologic insomnia[ICD10: F51.04] Diagnosis: Major depressive disorder, recurrent, moderate[ICD10: F33.1] Diagnosis: Alcohol dependence, uncomplicated[ICD10: F10.20] Diagnosis: Chronic pain syndrome[ICD10: G89.4] Leydi Jacobo MD, [facility] CPT-4: 87417 09/16/2016 ([id number]) 25652 EST. P ATIENT, LEVEL III Diagnosis: Pain in left shoulder[ICD10: M25.512] Diagnosis: Major depressive disorder, recurrent, moderate[ICD10: F33.1] Diagnosis: Psychophysiologic insomnia[ICD10: F51.04] Leydi Jacobo MD, [facility] CPT-4: 69973 08/19/2016 ([id number]) 88801 EST. P ATIENT, LEVEL III Diagnosis: Gastro-esophageal reflux disease without esophagitis[ICD10: K21.9] Diagnosis: Hypothyroidism, unspecified[ICD10: E03.9] Leydi Jacobo MD, [facility] CPT-4: 16436 06/17/2016 ([id number]) 08204 EST. P ATIENT, LEVEL IV Diagnosis: Gastro-esophageal reflux disease without esophagitis[ICD10: K21.9] Diagnosis: Hypothyroidism, unspecified[ICD10: E03.9] Diagnosis: Major depressive disorder, recurrent, moderate[ICD10: F33.1] Leydi Jacobo MD, [facility] CPT-4: 83086 05/12/2016 ([id number]) 10359 EST. P ATIENT, LEVEL III Diagnosis: Cervicalgia[ICD10: M54.2] Diagnosis: Hypothyroidism, unspecified[ICD10: E03.9] Diagnosis: Other male erectile dysfunction[ICD10: N52.8] Leydi Jacobo MD, [facility] CPT-4: 85582 02/16/2016 ([id number]) 20672 EST. P ATIENT, LEVEL III Diagnosis: Lumbago with sciatica, unspecified side[ICD10: M54.40] Diagnosis: Other male erectile dysfunction[ICD10: N52.8] Leydi Jacobo MD, [facility] CPT-4: 26652 11/17/2015 ([id number]) 29260 EST. P ATIENT, LEVEL III Diagnosis: Lumbago with sciatica, unspecified side[ICD10: M54.40] Diagnosis: Hypothyroidism, unspecified[ICD10: E03.9] Diagnosis: Other male erectile dysfunction[ICD10: N52.8] Leydi Jacobo MD, [facility] CPT-4: 01041 08/28/2015 ([id number]) 34256 EST. P ATIENT, LEVEL III Diagnosis: Back pain, chronic[ICD9: 724.5] Diagnosis: Depression[ICD9: 311] Diagnosis: Hypothyroid[ICD9: 244.9] Diagnosis: Bilateral calf pain[ICD9: 729.5] Julieta Jacobo MD, [facility] CPT-4: 75845 05/28/2015 ([id number]) OFFICE VISI T, [facility] - LEVEL 4 Diagnosis: Back pain, chronic[ICD9: 724.5] Diagnosis: Depression[ICD9: 311] Diagnosis: Hypothyroid[ICD9: 244.9] Julieta Jacobo MD, [facility] CPT-4: 65587 04/23/2015 Plan of Care Planned Activity Notes [...] current medications. 06/09/2017 Appointment: Leydi Hightower WPtel: [phone] (30 min) Complex 06/09/2017 Patient Education: [...] completely resolve 11/17/2016 Appointment: Leydi Hightower WPtel: [facility]8 [address] (30 min) Complex 11/17/2016 Patient Education: Patient [...] in pain. 11/10/2016 Appointment: Leydi Hightower WPtel: [facility]0 [phone] (30 min) Complex 11/10/2016 Patient Education: [...] of plan. 2015 Appointment: Leydi Hightower WPtel: [phone] (30 min) Complex 10/14/2016 Patient Education: [...] will try 09/16/2016 Appointment: Leydi Hightower WPtel: [facility] [place] [phone] (30 min) Complex 09/16/2016 Patient Education: Patient Medication Summary Completed 09/16/2016 Visit Plan: Left shoulder and elbow pain -xray shoulder and elbow Yjaqmbclpz-fekhrzma-ymuycbfogkli-d/c trazodone-start remeron at bedtime Pt has been [...] this patient. 08/19/2016 Appointment: Leydi Hightower WPtel: [facility]9 [phone] (30 min) Complex 08/19/2016 Patient Education: [...] Obesity Completed 06/17/2016 Appointment: Leydi Hightower WPtel[phone] ([facility] Complex 06/09/2016 Visit Plan: [...] of control. 05/12/2016 Appointment: Leydi Hightower WPtel[phone] ([facility] min) Complex 05/12/2016 Patient Education: [...] in office. 2014 Appointment: Leydi Hightower WPtel: [address] [place], [place] [phone] (30 min) Complex 05/28/2015 Patient Education: Patient [...] Dynamic Portal ID Completed 04/23/2015 Patient Education: [facility] - Levothyroxine - 18-64 - Dynamic Portal ID Completed 04/23/2015 Care Plan: COMPLETE CBC AUTOMATED LOINC : 34825-0 Ordered 04/23/2015 Instructions Comment . Neck Pain- [...] and elbow pain-xray shou lder and elbow Tpyzjfdoxi-ygzsbotq-paofpebihmdx-d/c trazodone-start remeron at bedtime Pt has been [...]
--- OUTSIDE RECORDS SUMMARY | 2020-03-17 14:54 | XMS REPORT | CCD ---
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 Name Role Phone PP Unavailable CCM Unavailable Summary Purpose Interface Exchange Insurance Providers Payer name Policy type / Coverage type Covered green party ID Effective Begin Date Effective End Date WPS Medicare Part B Medicare Part B [id number] Unknown Unknown [facility] icare Part B [id number] Unknown Unk nown Family history Father Diagnosis Age At Onset Colon cancer Unknown Social History Social History Element Codes Description Effective Dates Marital status Unknown D ivorced 04/23/[address]: 534504649 Never smoker 04/23/[address]: 247352 Currently drinks alcohol occasionally drinks 04/23/2015 Allergies, [...] Date Stop Date Sta tus Fill Instructions Opana ER 15 mg table t, crush resistant, extended release RxNorm: 318194 1 Tablet(s) PO Q12H 06/09/2017 08/07/2017 Active Opana ER 5 mg tablet , crush resistant, extended release RxNorm: 022023 1 Tablet(s) PO Q6 PRN 06/09/2017 No Stop Date Active diclofenac sodium 75 mg tablet,delayed release RxNorm: 318205 1 Tablet(s) PO BID 06/09/2017 09/06/2017 Ac tive clonazepam 1 mg tablet RxNorm: 575502 1/2 Tablet(s) PO daily 05/24/2017 11/19/2017 Active bupropion HCl XL 300 mg 24 hr tablet, extended release RxNorm: 984069 TAKE ONE TABLET BY MOUTH DAILY 03/16/2017 06/13/2017 Active clonazepam 1 mg tablet RxNorm: 950442 1/2 Tablet(s) PO daily 02/22/2017 05/18/2017 Inactive Remeron 15 mg tablet RxNorm: 957539 TAKE ONE TABLET BY MOUTH EVERY NIGHT AT BEDTIME 02/06/2017 2017 Inactive Protonix 40 mg table t,delayed release RxNorm: 413734 TAKE ONE TABLET BY MO UTH DAILY 01/26/2017 06/24/2017 Ac tive mupirocin 2 % topica l ointment RxNorm: 398684 1 Application TOP BID 01/12/2017 01/18/2017 Inactive Bactrim DS 800 mg-16 0 mg tablet RxNorm: 952004 1 Tablet(s) PO BID 11/17/2016 11/23/2016 Inactive mupirocin 2 % topica l ointment RxNorm: 473512 1 Application TOP BID 11/10/2016 11/16/2016 Inactive Bactrim DS 800 mg-16 0 mg tablet RxNorm: 939857 1 Tablet(s) PO BID 11/10/2016 11/16/2016 Inactive bupropion HCl XL 300 mg 24 hr tablet, extended release RxNorm: 946583 TAKE ONE TABLET BY MOUTH DAILY 11/07/2016 03/06/2017 Inactive liothyronine 5 mcg t ablet RxNorm: 022717 1 Tablet(s) PO daily 11/01/2016 10/26/2017 Active levothyroxine 200 mc g tablet RxNorm: 600065 1 Tablet(s) PO daily 10/04/2016 09/28/2017 Active clonazepam 1 mg tablet RxNorm: 113159 1/2 Tablet(s) PO daily 09/21/2016 03/18/2017 Inactive trazodone 50 mg tablet RxNorm: 247895 1/2 Tablet(s) as needed 1 Tablet(s) PO Q HS 09/16/2016 01/13/2017 In active baclofen 10 mg tablet RxNorm: 638402 1 Tablet(s) PO TID as needed 09/16/2016 No Stop Date Active clonazepam 1 mg tablet RxNorm: 557467 1/2 Tablet(s) PO daily 09/16/2016 09/20/2016 Inactive Abilify 2 mg tablet RxNorm: 110818 1 Tablet(s) PO daily 09/16/2016 10/13/2016 Inactive morphine 15 mg immed iate release tablet RxNorm: 019501 1 Tablet(s) PO Q6 PRN 09/16/2016 04/06/2017 In active MS Contin 30 mg tabl et,extended release RxNorm: 450263 1 Tablet(s) PO Q12H 09/16/2016 04/06/2017 In active Remeron 15 mg tablet RxNorm: 160380 1 Tablet(s) PO QHS 08/19/2016 09/15/2016 Inactive levothyroxine 200 mc g tablet RxNorm: 923622 1 Tablet(s) PO daily 08/11/2016 10/03/2016 Inactive bupropion HCl XL 300 mg 24 hr tablet, extended release RxNorm: 984348 TAKE ONE TABLET BY MOUTH DAILY 08/11/2016 11/06/2016 Inactive Protonix 40 mg table t,delayed release RxNorm: 245139 1 Tablet(s) PO daily 06/17/2016 12/13/2016 In active bupropion HCl XL 300 mg 24 hr tablet, extended release RxNorm: 024494 1 Tablet(s) PO daily 05/12/2016 07/10/2016 Inactive bupropion HCl XL 300 mg 24 hr tablet, extended release RxNorm: 383956 1 Tablet(s) PO daily 05/12/2016 05/11/2016 Inactive Cialis 20 mg tablet RxNorm: 327478 1 Tablet(s) PO PRN 02/16/2016 No Stop Date Active not more than 1 tab in 24 hours morphine ER 10 mg ca psule,extended release pellets RxNorm: 547307 1 Tablet(s) PO Q6 as needed 02/16/2016 11/16/2016 Inactive clonazepam 1 mg tablet RxNorm: 019947 1/2 Tablet(s) PO BID 02/16/2016 09/15/2016 Inactive trazodone 50 mg tablet RxNorm: 660059 1/2 Tablet(s) as needed 1 Tablet(s) PO Q HS 02/16/2016 08/18/2016 In active trazodone 50 mg tablet RxNorm: 636289 1/2 Tablet(s) 1 Tablet(s) PO QHS 11/17/2015 02/15/2016 In active trazodone 50 mg tablet RxNorm: 654928 1 Tablet(s) PO QHS 10/19/2015 11/16/2015 Inactive levothyroxine 200 mc g tablet RxNorm: 364928 1 Tablet(s) PO daily 10/02/2015 08/10/2016 Inactive Wellbutrin XL 150 mg 24 hr tablet, extended release RxNorm: 069798 1 Tablet(s) PO daily 10/02/2015 05/11/2016 Inactive levothyroxine 200 mc g tablet RxNorm: 738764 1 Tablet(s) PO daily 09/30/2015 10/01/2015 Inactive Wellbutrin XL 150 mg 24 hr tablet, extended release RxNorm: 141288 1 Tablet(s) PO daily 09/30/2015 10/01/2015 Inactive trazodone 50 mg tablet RxNorm: 758070 1 Tablet(s) PO QHS 09/11/2015 10/10/2015 Inactive trazodone 50 mg tablet RxNorm: 884107 1 Tablet(s) PO QHS 09/11/2015 09/10/2015 Inactive Cymbalta 30 mg capsu le,delayed release RxNorm: 640494 1 Capsule(s) PO daily 09/07/2015 11/16/2015 In active Cymbalta 60 mg capsu le,delayed release RxNorm: 179606 1 Capsule(s) PO daily 08/31/2015 08/30/2015 In active Cymbalta 30 mg capsu le,delayed release RxNorm: 382423 1 Capsule(s) PO daily take with 60mg to make 90 mg daily 08/31/2015 09/06/2015 Inactive Cymbalta 30 mg capsu le,delayed release RxNorm: 776409 1 Capsule(s) PO daily take with 60mg to make 90 mg daily 08/31/2015 08/30/2015 Inactive Cymbalta 60 mg capsu le,delayed release RxNorm: 851242 1 Capsule(s) PO daily x 7 days and then increase to 90mg daily 08/31/2015 09/07/2015 Inactive levothyroxine 200 mc g tablet RxNorm: 825384 1 Tablet(s) PO daily 08/14/2015 09/29/2015 Inactive Wellbutrin XL 150 mg 24 hr tablet, extended release RxNorm: 675811 1 Tablet(s) PO daily 07/14/2015 09/29/2015 Inactive Cialis 20 mg tablet RxNorm: 598871 1 Tablet(s) PO PRN 07/02/2015 02/15/2016 Inactive not more than 1 tab in 24 hours liothyronine 5 mcg t ablet RxNorm: 119254 1 Tablet(s) PO daily 2015 05/29/2016 Inactive clonazepam 1 mg tablet RxNorm: 873206 1 Tablet(s) PO TID 2015 02/15/2016 Inactive minocycline 50 mg ta blet RxNorm: 486717 1 Tablet(s) PO daily 2015 05/11/2016 Inactive Wellbutrin XL 150 mg 24 hr tablet, extended release RxNorm: 304458 1 Tablet(s) PO daily 04/23/2015 07/13/2015 Inactive levothyroxine 200 mc g tablet RxNorm: 521207 1 Tablet(s) PO daily 04/23/2015 08/13/2015 Inactive diclofenac oral RxNorm: 3355 oral No Start Date Active Aleve oral RxNorm: 493260 oral No Start Date Active Tylenol 500 mg RxNorm: oral No Start Date Active morphine ER 15 mg ta blet,extended release RxNorm: 340076 oral No Start Date 11/16/2016 Inactive Trazadone 25 mg RxNorm: 2 PO daily No Start Date 09/11/2015 Inactive clonazepam 1 mg tablet RxNorm: 120222 1 Tablet(s) PO QHS No Start Date 06/04/2015 Inactive Wellbutrin XL 150 mg 24 hr tablet, extended release RxNorm: 097783 1 Tablet(s) PO daily No Start Date 04/22/2015 Inactive minocycline 50 mg ta blet RxNorm: 675651 1 Tablet(s) PO daily No Start Date 06/04/2015 Inactive methadone 5 mg tablet RxNorm: 039841 1 Tablet(s) PO Q8 No Start Date 02/15/2016 Inactive Protonix 40 mg table t,delayed release RxNorm: 175319 Tablet(s) PO daily No Start Date 06/16/2016 Inactive Opana ER 15 mg table t, crush resistant, extended release RxNorm: 924701 1 Tablet(s) PO Q12H No Start Date 06/08/2017 Inactive MS Contin 30 mg tabl et,extended release RxNorm: 782592 1 Tablet(s) PO Q12H No Start Date 02/15/2016 Inactive Opana ER 15 mg table t, crush resistant, extended release RxNorm: 359356 1 Tablet(s) PO BID No Start Date 09/15/2016 Inactive liothyronine 5 mcg t ablet RxNorm: 095338 1 Tablet(s) PO daily No Start Date 06/04/2015 Inactive Cialis 20 mg tablet RxNorm: 725941 1 Tablet(s) PO PRN No Start Date 07/01/2015 Inactive not more than 1 tab in 24 hours baclofen 10 mg tablet RxNorm: 190751 1 Tablet(s) PO TID as needed No Start Date 05/11/2016 Inactive morphine 15 mg immed iate release tablet RxNorm: 097331 1 Tablet(s) PO Q6 PRN as needed No Start Date 02/15/2016 Inactive levothyroxine 200 mc g tablet RxNorm: 207779 1 Tablet(s) PO daily No Start Date 04/22/2015 Inactive Opana ER 5 mg tablet , crush resistant, extended release RxNorm: 859962 1 Tablet(s) PO Q6 No Start Date [...] Item Item Code Result Date Comp Metabolic Osf513 NA 136 mEq/L 02/16/2016 Comp Metabolic Zos019 K 4.2 mEq/L 02/16/2016 Comp Metabolic Rzp866 CL 104 mEq/L 02/16/2016 Comp Metabolic Ifv575 CO2 20.0 mEq/L 02/16/2016 Comp Metabolic Aux922 AN ION GAP 16 02/16/2016 Comp Metabolic Prk438 GL UCOSE 71 mg/dL 02/16/2016 Comp Metabolic Omg317 Cr eat 0.8 mg/dL 02/16/2016 Comp Metabolic Wag118 eG FR 113 ml/min/1.73m2 01/26 Comp Metabolic Ltr210 BUN 7 mg/dL 02/16/2016 Comp Metabolic Roz162 B/ C Ratio 9.1 Ratio 02/16/2016 Comp Metabolic Fgs047 CA LCIUM 9.4 mg/dL 02/16/2016 Comp Metabolic Vgf216 AL K PHOS 57 U/L 02/16/2016 Comp Metabolic Wcx901 T(SGOT) 30 U/L 02/16/2016 Comp Metabolic Eak511 AL T(SGPT) 27 U/L 02/16/2016 Comp Metabolic Nhw770 BI LI T 0.2 mg/dL 02/16/2016 Comp Metabolic Mcs910 AL BUMIN 4.4 g/dL 02/16/2016 Comp Metabolic Gfk794 TP RO 6.5 g/dL 02/16/2016 Comp Metabolic Btb427 GL OB 2.1 g/dL 02/16/2016 Comp Metabolic Suv953 A/ G Ratio 2.1 Ratio 02/16/2016 Comp Metabolic Npg847 Os mo 268 mOsmo 02/16/2016 Free T4 Reg678 FREE T4 1.20 ng/dL 02/16/2016 Cbc With [...] 90.6 fl 02/16/2016 Cbc With Differential Ord2 [place]% 9.6 % 02/16/2016 Cbc With Differential Ord2 [...] 1.50 K/ul 02/16/2016 Cbc With Differential Ord2 [place] ABS# 0.5 K/ul 02/16/2016 Cbc With Differential [...] 1: 148/88 Code: 8480-6 BMI: 28.6 Code: 67764-1 Heart Rate 1: 88 bpm Height: 5'6" SpO2: 98% Weight: 177 lbs 04/07/2017 Blood Pressure 1: 140/84 Code: 8480-6 BMI: 30.3 Code: 12409-3 Heart Rate 1: 81 bpm Height: 5'6" SpO2: 99% Weight: 188 lbs 11/17/2016 Blood Pressure 1: 130/72 Code: 8480-6 Heart Rate 1: 63 bpm Height: SpO2: 93% Weight: 11/10/2016 Blood Pressure 1: 128/86 Code: 8480-6 BMI: 30.3 Code: 69527-6 Heart Rate 1: 84 bpm Height: 5'6" SpO2: 96% Weight: 188 lbs 10/14/2016 Heigh t: 5'6" 09/16/2016 Blood Pressure 1: 130/80 Code: 8480-6 BMI: 30.3 Code: 91169-0 Heart Rate 1: 67 bpm Height: 5'6" SpO2: 99% Weight: 188 lbs 08/19/2016 Blood Pressure 1: 110/62 Code: 8480-6 BMI: 29.9 Code: 10404-1 Heart Rate 1: 70 bpm Height: 5'6" SpO2: 97% Weight: 185 lbs 06/17/2016 Blood Pressure 1: 112/68 Code: 8480-6 BMI: 27.6 Code: 55177-9 Heart Rate 1: 61 bpm Height: 5'6" SpO2: 98% Weight: 171 lbs 05/12/2016 Blood Pressure 1: 130/76 Code: 8480-6 BMI: 29.7 Code: 75499-6 Heart Rate 1: 103 bpm Height: 5'6" SpO2: 98% Weight: 184 lbs 02/16/2016 Blood Pressure 1: 140/82 Code: 8480-6 BMI: 28.7 Code: 90286-1 Heart Rate 1: 66 bpm Height: 5'6" SpO2: 99% Weight: 178 lbs 11/17/2015 Blood Pressure 1: 120/74 Code: 8480-6 BMI: 29.4 Code: 02540-3 Heart Rate 1: 90 bpm Height: 5'6" SpO2: 94% Weight: 182 lbs 08/28/2015 Blood Pressure 1: 128/76 Code: 8480-6 BMI: 27.9 Code: 31496-2 Heart Rate 1: 80 bpm Height: 5'6" SpO2: 98% Weight: 173 lbs 05/28/2015 Blood Pressure 1: 122/70 Code: 8480-6 BMI: 27.0 Code: 02162-7 Heart Rate 1: 74 bpm Height: 5'6" SpO2: 98% Weight: 167 lbs 04/23/2015 Blood Pressure 1: 110/60 Code: 8480-6 BMI: 27.0 Code: 37377-2 Heart Rate 1: 68 bpm Height: 5'6" [...] Encounters Encounter Performer Loca tion Codes Date ([id number]) 67947 EST. P ATIENT, LEVEL III Diagnosis: Chronic pain syndrome[ICD10: G89.4] Diagnosis: Major depressive disorder, recurrent, moderate[ICD10: F33.1] [facility] CPT-4: 48755 06/09/2017 [id number]) 74210 EST. P ATIENT, LEVEL III Diagnosis: Chronic pain syndrome[ICD10: G89.4] Diagnosis: Pain in left knee[ICD10: M25.562] [facility] CPT- 4: 02944 04/07/2017 [id number] EST. PATIENT, LEVEL II Diagnosis: Superficial foreign body of left upper arm, initial encounter[ICD10: S40.852A] Diagnosis: Cellulitis of left upper limb[ICD10: L03.114] [facility] CPT-4: 36727 11/17/2016 [id number] EST. PATIENT, LEVEL II Diagnosis: Cellulitis of left upper limb[ICD10: L03.114] Leydi Jacobo MD, [facility] CPT-4: 11987 11/10/2016 ([id number]) 99856 EST. P ATIENT, LEVEL III Diagnosis: Chronic pain syndrome[ICD10: G89.4] Diagnosis: Major depressive disorder, recurrent, moderate[ICD10: F33.1] Leydi Jacobo MD, [facility] CPT-4: 00133 10/14/2016 42712 EST. PATIENT, LEVEL IV Diagnosis: Psychophysiologic insomnia[ICD10: F51.04] Diagnosis: Major depressive disorder, recurrent, moderate[ICD10: F33.1] Diagnosis: Alcohol dependence, uncomplicated[ICD10: F10.20] Diagnosis: Chronic pain syndrome[ICD10: G89.4] Leydi Jacobo MD, [facility] CPT-4: 42796 09/16/2016 ([id number]) 94422 EST. P ATIENT, LEVEL III Diagnosis: Pain in left shoulder[ICD10: M25.512] Diagnosis: Major depressive disorder, recurrent, moderate[ICD10: F33.1] Diagnosis: Psychophysiologic insomnia[ICD10: F51.04] Leydi Jacobo MD, [facility] CPT-4: 30491 08/19/2016 ([id number]) 63821 EST. P ATIENT, LEVEL III Diagnosis: Gastro-esophageal reflux disease without esophagitis[ICD10: K21.9] Diagnosis: Hypothyroidism, unspecified[ICD10: E03.9] Leydi Jacobo MD, [facility] CPT-4: 66714 06/17/2016 ([id number]) 16789 EST. P ATIENT, LEVEL IV Diagnosis: Gastro-esophageal reflux disease without esophagitis[ICD10: K21.9] Diagnosis: Hypothyroidism, unspecified[ICD10: E03.9] Diagnosis: Major depressive disorder, recurrent, moderate[ICD10: F33.1] Leydi Jacobo MD, [facility] CPT-4: 96806 05/12/2016 ([id number]) 47747 EST. P ATIENT, LEVEL III Diagnosis: Cervicalgia[ICD10: M54.2] Diagnosis: Hypothyroidism, unspecified[ICD10: E03.9] Diagnosis: Other male erectile dysfunction[ICD10: N52.8] Leydi Jacobo MD, [facility] CPT-4: 99992 02/16/2016 ([id number]) 24453 EST. P ATIENT, LEVEL III Diagnosis: Lumbago with sciatica, unspecified side[ICD10: M54.40] Diagnosis: Other male erectile dysfunction[ICD10: N52.8] [facility] CPT-4: 83905 11/17/2015 ([id number]) 10021 EST. P ATIENT, LEVEL III Diagnosis: Lumbago with sciatica, unspecified side[ICD10: M54.40] Diagnosis: Hypothyroidism, unspecified[ICD10: E03.9] Diagnosis: Other male erectile dysfunction[ICD10: N52.8] [facility] CPT-4: 67772 08/28/2015 ([id number]) 45825 EST. P ATIENT, LEVEL III Diagnosis: Back pain, chronic[ICD9: 724.5] Diagnosis: Depression[ICD9: 311] Diagnosis: Hypothyroid[ICD9: 244.9] Diagnosis: Bilateral calf pain[ICD9: 729.5] [facility] CPT-4: 78198 05/28/2015 ([id number]) OFFICE VISI T, NEW - LEVEL 4 Diagnosis: Back pain, chronic[ICD9: 724.5] Diagnosis: Depression[ICD9: 311] Diagnosis: Hypothyroid[ICD9: 244.9] [facility] CPT-4: 14570 04/23/2015 Plan of Care Planned Activity Notes C odes Status Date Patient Education: Patient Medication Summary Completed 06/09/2017 Patient Education: Obesity Completed 06/09/2017 Patient Education: Patient Medication Summary Completed 04/07/2017 Patient Education: Obesity Completed 04/07/2017 Appointment: Leydi Hightower WPtel: [address] [place], [place] [id number] (30 min) [facility] 11/17/2016 Patient Education: Patient Medication Summary Completed 11/17/2016 App[facility]ment: [facility] [phone] [phone] [place] (30 min[facility] Complex 11/10/2016 Patient Education: Patient Medication Summary Completed 11/10/2016 Appointment: [facility] [phone] [phone] [place] (30 min) Complex 10/14/2016 Patient Education: Patient Medication Summary Completed 10/14/2016 Appointment: [facility] [phone] [phone] [place] (30 min) Complex 09/16/2016 Patient Education: Patient Medication Summary Completed 09/16/2016 Appointment: Leydi Hightower WPtel: [phone] [phone] [place] (30 min) Complex 08/19/2016 Patient Education: Patient Medication Summary Completed 08/19/2016 Patient Education: Obesity Completed 08/19/2016 Patient Education: Patient Medication Summary Completed 06/17/2016 Patient Education: Obesity Completed 06/17/2016 Appointment: [facility]el[facility] [phone] [phone] [place] ([facility] min) Complex 06/09/2016 Appointment: [facility] [phone] [phone] [place] (30 min) Complex 05/12/2016 Patient Education: Patient Medication Summary Completed 05/12/2016 Patient Education: Obesity Completed 05/12/2016 Appointment: (30 min) Complex 02/16/2016 Patient Education: Patient Medication Summary Completed 02/16/2016 Patient Education: .Cervicalgia Neck Pain Completed 02/16/2016 Appointment: (30 min) Complex 11/17/2015 Patient Education: Patient Medication Summary Completed 11/17/2015 Appointment: (30 min) Complex 08/28/2015 Patient Education: Patient Medication Summary Completed 08/28/2015 Appointment: Leydi Hightower WPtel: [phone] [place] (30 min) Complex 05/28/2015 Patient Education: Patient Medication Summary Completed 05/28/2015 Patient Education: Patient Medication Summary Completed 04/23/2015 Patient Education: [facility] - Saving AutoInj - 18-64 - Dynamic Portal ID Completed 04/23/2015 Patient Education: [facility] - Saving AutoInj - Levothyroxine - 18-64 - Dynamic Portal ID Completed 04/23/2015 Care Plan: COMPLETE CBC AUTOMATED LOINC : 63265-8 Ordered 04/23/2015 Instructions No Instructions
--- OUTSIDE RECORDS SUMMARY | 2020-03-17 14:55 | XMS REPORT | CCD ---
Author Author Thai Castillo Organization Sara Jacobo MD, [facility] Address [address] [place] [address] Phone Care Team Providers Care Staff Nuclear Weapons Officer Name Role Phone PP Unavailable CCM Unavailable Summary Purpose Interface Exchange Insurance Providers Payer name Policy type / Coverage type Covered democrat ID Effective Begin Date Effective End Date WPS Medicare Part B Medicare Part B [id number] Unknown Unknown [facility] icare Part B [id number] Unknown Unk nown Family history Father Diagnosis Age At Onset Colon cancer Unknown Social History Social History Element Codes Description Effective Dates Marital status Unknown D ivorced 04/23/[address]: 504718663 Never smoker 04/23/[address]: 142962 Currently drinks alcohol occasionally drinks 04/23/2015 Allergies, [...] table t, crush resistant, extended release RxNorm: 377091 1 Tablet(s) PO Q12H 06/09/2017 08/07/2017 Active Opana ER 5 mg tablet , crush resistant, extended release RxNorm: 557720 1 Tablet(s) PO Q6 PRN 06/09/2017 No Stop Date Active diclofenac sodium 75 mg tablet,delayed release RxNorm: 386777 1 Tablet(s) PO BID 06/09/2017 09/06/2017 Ac tive clonazepam 1 mg tablet RxNorm: 198731 1/2 Tablet(s) PO daily 05/24/2017 11/19/2017 Active bupropion HCl XL 300 mg 24 hr tablet, extended release RxNorm: 827191 TAKE ONE TABLET BY MOUTH DAILY 03/16/2017 06/13/2017 Active clonazepam 1 mg tablet RxNorm: 050800 1/2 Tablet(s) PO daily 02/22/2017 05/18/2017 Inactive Remeron 15 mg tablet RxNorm: 036673 TAKE ONE TABLET BY MOUTH EVERY NIGHT AT BEDTIME 02/06/2017 2017 Inactive Protonix 40 mg table t,delayed release RxNorm: 196439 TAKE ONE TABLET BY MO UTH DAILY 01/26/2017 06/24/2017 Ac tive mupirocin 2 % topica l ointment RxNorm: 039412 1 Application TOP BID 01/12/2017 01/18/2017 Inactive Bactrim DS 800 mg-16 0 mg tablet RxNorm: 547133 1 Tablet(s) PO BID 11/17/2016 11/23/2016 Inactive mupirocin 2 % topica l ointment RxNorm: 891212 1 Application TOP BID 11/10/2016 11/16/2016 Inactive Bactrim DS 800 mg-16 0 mg tablet RxNorm: 639189 1 Tablet(s) PO BID 11/10/2016 11/16/2016 Inactive bupropion HCl XL 300 mg 24 hr tablet, extended release RxNorm: 539311 TAKE ONE TABLET BY MOUTH DAILY 11/07/2016 03/06/2017 Inactive liothyronine 5 mcg t ablet RxNorm: 175280 1 Tablet(s) PO daily 11/01/2016 10/26/2017 Active levothyroxine 200 mc g tablet RxNorm: 230020 1 Tablet(s) PO daily 10/04/2016 09/28/2017 Active clonazepam 1 mg tablet RxNorm: 605636 1/2 Tablet(s) PO daily 09/21/2016 03/18/2017 Inactive trazodone 50 mg tablet RxNorm: 797296 1/2 Tablet(s) as needed 1 Tablet(s) PO Q HS 09/16/2016 01/13/2017 In active baclofen 10 mg tablet RxNorm: 484857 1 Tablet(s) PO TID as needed 09/16/2016 No Stop Date Active clonazepam 1 mg tablet RxNorm: 635690 1/2 Tablet(s) PO daily 09/16/2016 09/20/2016 Inactive Abilify 2 mg tablet RxNorm: 930864 1 Tablet(s) PO daily 09/16/2016 10/13/2016 Inactive morphine 15 mg immed iate release tablet RxNorm: 544793 1 Tablet(s) PO Q6 PRN 09/16/2016 04/06/2017 In active MS Contin 30 mg tabl et,extended release RxNorm: 605100 1 Tablet(s) PO Q12H 09/16/2016 04/06/2017 In active Remeron 15 mg tablet RxNorm: 936023 1 Tablet(s) PO QHS 08/19/2016 09/15/2016 Inactive levothyroxine 200 mc g tablet RxNorm: 305115 1 Tablet(s) PO daily 08/11/2016 10/03/2016 Inactive bupropion HCl XL 300 mg 24 hr tablet, extended release RxNorm: 303885 TAKE ONE TABLET BY MOUTH DAILY 08/11/2016 11/06/2016 Inactive Protonix 40 mg table t,delayed release RxNorm: 519722 1 Tablet(s) PO daily 06/17/2016 12/13/2016 In active bupropion HCl XL 300 mg 24 hr tablet, extended release RxNorm: 418607 1 Tablet(s) PO daily 05/12/2016 07/10/2016 Inactive bupropion HCl XL 300 mg 24 hr tablet, extended release RxNorm: 640133 1 Tablet(s) PO daily 05/12/2016 05/11/2016 Inactive Cialis 20 mg tablet RxNorm: 000293 1 Tablet(s) PO PRN 02/16/2016 No Stop Date Active not more than 1 tab in 24 hours morphine ER 10 mg ca psule,extended release pellets RxNorm: 106112 1 Tablet(s) PO Q6 as needed 02/16/2016 11/16/2016 Inactive clonazepam 1 mg tablet RxNorm: 741275 1/2 Tablet(s) PO BID 02/16/2016 09/15/2016 Inactive trazodone 50 mg tablet RxNorm: 450605 1/2 Tablet(s) as needed 1 Tablet(s) PO Q HS 02/16/2016 08/18/2016 In active trazodone 50 mg tablet RxNorm: 066130 1/2 Tablet(s) 1 Tablet(s) PO QHS 11/17/2015 02/15/2016 In active trazodone 50 mg tablet RxNorm: 495085 1 Tablet(s) PO QHS 10/19/2015 11/16/2015 Inactive levothyroxine 200 mc g tablet RxNorm: 495912 1 Tablet(s) PO daily 10/02/2015 08/10/2016 Inactive Wellbutrin XL 150 mg 24 hr tablet, extended release RxNorm: 798897 1 Tablet(s) PO daily 10/02/2015 05/11/2016 Inactive levothyroxine 200 mc g tablet RxNorm: 658293 1 Tablet(s) PO daily 09/30/2015 10/01/2015 Inactive Wellbutrin XL 150 mg 24 hr tablet, extended release RxNorm: 244820 1 Tablet(s) PO daily 09/30/2015 10/01/2015 Inactive trazodone 50 mg tablet RxNorm: 601894 1 Tablet(s) PO QHS 09/11/2015 10/10/2015 Inactive trazodone 50 mg tablet RxNorm: 285750 1 Tablet(s) PO QHS 09/11/2015 09/10/2015 Inactive Cymbalta 30 mg capsu le,delayed release RxNorm: 028192 1 Capsule(s) PO daily 09/07/2015 11/16/2015 In active Cymbalta 60 mg capsu le,delayed release RxNorm: 730885 1 Capsule(s) PO daily 08/31/2015 08/30/2015 In active Cymbalta 30 mg capsu le,delayed release RxNorm: 500128 1 Capsule(s) PO daily take with 60mg to make 90 mg daily 08/31/2015 09/06/2015 Inactive Cymbalta 30 mg capsu le,delayed release RxNorm: 116787 1 Capsule(s) PO daily take with 60mg to make 90 mg daily 08/31/2015 08/30/2015 Inactive Cymbalta 60 mg capsu le,delayed release RxNorm: 969639 1 Capsule(s) PO daily x 7 days and then increase to 90mg daily 08/31/2015 09/07/2015 Inactive levothyroxine 200 mc g tablet RxNorm: 562716 1 Tablet(s) PO daily 08/14/2015 09/29/2015 Inactive Wellbutrin XL 150 mg 24 hr tablet, extended release RxNorm: 496901 1 Tablet(s) PO daily 07/14/2015 09/29/2015 Inactive Cialis 20 mg tablet RxNorm: 479527 1 Tablet(s) PO PRN 07/02/2015 02/15/2016 Inactive not more than 1 tab in 24 hours liothyronine 5 mcg t ablet RxNorm: 676865 1 Tablet(s) PO daily 2015 05/29/2016 Inactive clonazepam 1 mg tablet RxNorm: 902446 1 Tablet(s) PO TID 2015 02/15/2016 Inactive minocycline 50 mg ta blet RxNorm: 599534 1 Tablet(s) PO daily 2015 05/11/2016 Inactive Wellbutrin XL 150 mg 24 hr tablet, extended release RxNorm: 956427 1 Tablet(s) PO daily 04/23/2015 07/13/2015 Inactive levothyroxine 200 mc g tablet RxNorm: 982356 1 Tablet(s) PO daily 04/23/2015 08/13/2015 Inactive diclofenac oral RxNorm: 3355 oral No Start Date Active Aleve oral RxNorm: 973033 oral No Start Date Active Tylenol 500 mg RxNorm: oral No Start Date Active morphine ER 15 mg ta blet,extended release RxNorm: 495596 oral No Start Date 11/16/2016 Inactive Trazadone 25 mg RxNorm: 2 PO daily No Start Date 09/11/2015 Inactive clonazepam 1 mg tablet RxNorm: 759099 1 Tablet(s) PO QHS No Start Date 06/04/2015 Inactive Wellbutrin XL 150 mg 24 hr tablet, extended release RxNorm: 434694 1 Tablet(s) PO daily No Start Date 04/22/2015 Inactive minocycline 50 mg ta blet RxNorm: 928713 1 Tablet(s) PO daily No Start Date 06/04/2015 Inactive methadone 5 mg tablet RxNorm: 847960 1 Tablet(s) PO Q8 No Start Date 02/15/2016 Inactive Protonix 40 mg table t,delayed release RxNorm: 873013 Tablet(s) PO daily No Start Date 06/16/2016 Inactive Opana ER 15 mg table t, crush resistant, extended release RxNorm: 815090 1 Tablet(s) PO Q12H No Start Date 06/08/2017 Inactive MS Contin 30 mg tabl et,extended release RxNorm: 226386 1 Tablet(s) PO Q12H No Start Date 02/15/2016 Inactive Opana ER 15 mg table t, crush resistant, extended release RxNorm: 425023 1 Tablet(s) PO BID No Start Date 09/15/2016 Inactive liothyronine 5 mcg t ablet RxNorm: 351572 1 Tablet(s) PO daily No Start Date 06/04/2015 Inactive Cialis 20 mg tablet RxNorm: 995340 1 Tablet(s) PO PRN No Start Date 07/01/2015 Inactive not more than 1 tab in 24 hours baclofen 10 mg tablet RxNorm: 953939 1 Tablet(s) PO TID as needed No Start Date 05/11/2016 Inactive morphine 15 mg immed iate release tablet RxNorm: 491591 1 Tablet(s) PO Q6 PRN as needed No Start Date 02/15/2016 Inactive levothyroxine 200 mc g tablet RxNorm: 233180 1 Tablet(s) PO daily No Start Date 04/22/2015 Inactive Opana ER 5 mg tablet , crush resistant, extended release RxNorm: 518717 1 Tablet(s) PO Q6 No Start Date [...] Item Item Code Result Date Comp Metabolic Grx410 NA 136 mEq/L 02/16/2016 Comp Metabolic Mlu585 K 4.2 mEq/L 02/16/2016 Comp Metabolic Cla477 CL 104 mEq/L 02/16/2016 Comp Metabolic Pnd492 CO2 20.0 mEq/L 02/16/2016 Comp Metabolic Ztq987 AN ION GAP 16 02/16/2016 Comp Metabolic Sne485 GL UCOSE 71 mg/dL 02/16/2016 Comp Metabolic Cwt593 Cr eat 0.8 mg/dL 02/16/2016 Comp Metabolic Ubm292 eG FR 113 ml/min/1.73m2 01/26 Comp Metabolic Iac412 BUN 7 mg/dL 02/16/2016 Comp Metabolic Omi294 B/ C Ratio 9.1 Ratio 02/16/2016 Comp Metabolic Rjo019 CA LCIUM 9.4 mg/dL 02/16/2016 Comp Metabolic Rnr997 AL K PHOS 57 U/L 02/16/2016 Comp Metabolic Lce409 T(SGOT) 30 U/L 02/16/2016 Comp Metabolic Oqn006 AL T(SGPT) 27 U/L 02/16/2016 Comp Metabolic Bwk528 BI LI T 0.2 mg/dL 02/16/2016 Comp Metabolic Hiv147 AL BUMIN 4.4 g/dL 02/16/2016 Comp Metabolic Tjs154 TP RO 6.5 g/dL 02/16/2016 Comp Metabolic Bjv979 GL OB 2.1 g/dL 02/16/2016 Comp Metabolic Fop735 A/ G Ratio 2.1 Ratio 02/16/2016 Comp Metabolic Muq445 Os mo 268 mOsmo 02/16/2016 Free T4 Lgt493 FREE T4 1.20 ng/dL 02/16/2016 Cbc With [...] 90.6 fl 02/16/2016 Cbc With Differential Ord2 Hardy% 9.6 % 02/16/2016 Cbc With Differential Ord2 [...] 1.50 K/ul 02/16/2016 Cbc With Differential Ord2 Hardy ABS# 0.5 K/ul 02/16/2016 Cbc With Differential [...] 1: 148/88 Code: 8480-6 BMI: 28.6 Code: 37486-4 Heart Rate 1: 88 bpm Height: 5'6" SpO2: 98% Weight: 177 lbs 04/07/2017 Blood Pressure 1: 140/84 Code: 8480-6 BMI: 30.3 Code: 01300-1 Heart Rate 1: 81 bpm Height: 5'6" SpO2: 99% Weight: 188 lbs 11/17/2016 Blood Pressure 1: 130/72 Code: 8480-6 Heart Rate 1: 63 bpm Height: SpO2: 93% Weight: 11/10/2016 Blood Pressure 1: 128/86 Code: 8480-6 BMI: 30.3 Code: 40938-1 Heart Rate 1: 84 bpm Height: 5'6" SpO2: 96% Weight: 188 lbs 10/14/2016 Heigh t: 5'6" 09/16/2016 Blood Pressure 1: 130/80 Code: 8480-6 BMI: 30.3 Code: 19563-2 Heart Rate 1: 67 bpm Height: 5'6" SpO2: 99% Weight: 188 lbs 08/19/2016 Blood Pressure 1: 110/62 Code: 8480-6 BMI: 29.9 Code: 14239-1 Heart Rate 1: 70 bpm Height: 5'6" SpO2: 97% Weight: 185 lbs 06/17/2016 Blood Pressure 1: 112/68 Code: 8480-6 BMI: 27.6 Code: 92971-1 Heart Rate 1: 61 bpm Height: 5'6" SpO2: 98% Weight: 171 lbs 05/12/2016 Blood Pressure 1: 130/76 Code: 8480-6 BMI: 29.7 Code: 12554-0 Heart Rate 1: 103 bpm Height: 5'6" SpO2: 98% Weight: 184 lbs 02/16/2016 Blood Pressure 1: 140/82 Code: 8480-6 BMI: 28.7 Code: 02592-8 Heart Rate 1: 66 bpm Height: 5'6" SpO2: 99% Weight: 178 lbs 11/17/2015 Blood Pressure 1: 120/74 Code: 8480-6 BMI: 29.4 Code: 09320-2 Heart Rate 1: 90 bpm Height: 5'6" SpO2: 94% Weight: 182 lbs 08/28/2015 Blood Pressure 1: 128/76 Code: 8480-6 BMI: 27.9 Code: 27026-0 Heart Rate 1: 80 bpm Height: 5'6" SpO2: 98% Weight: 173 lbs 05/28/2015 Blood Pressure 1: 122/70 Code: 8480-6 BMI: 27.0 Code: 14967-2 Heart Rate 1: 74 bpm Height: 5'6" SpO2: 98% Weight: 167 lbs 04/23/2015 Blood Pressure 1: 110/60 Code: 8480-6 BMI: 27.0 Code: 58124-1 Heart Rate 1: 68 bpm Height: 5'6" [...] Encounters Encounter Performer Loca tion Codes Date ([id number]) [id number] EST. P ATIENT, LEVEL III Diagnosis: Chronic pain syndrome[ICD10: G89.4] Diagnosis: Major depressive disorder, recurrent, moderate[ICD10: F33.1] [facility] CPT-4: 71912 06/09/[id number]) [id number] EST. P ATIENT, LEVEL III Diagnosis: Chronic pain syndrome[ICD10: G89.4] Diagnosis: Pain in left knee[ICD10: M25.562] [facility] CPT- 4: 33085 04/07/2017 [id number] EST. PATIENT, LEVEL II Diagnosis: Superficial foreign body of left upper arm, initial encounter[ICD10: S40.852A] Diagnosis: Cellulitis of left upper limb[ICD10: L03.114] [facility] CPT-4: 60716 11/17/2016 87729 EST. PATIENT, LEVEL II Diagnosis: Cellulitis of left upper limb[ICD10: L03.114] Leydi Jacobo MD, [facility] CPT-4: 29325 11/10/2016 ([id number]) 44347 EST. P ATIENT, LEVEL III Diagnosis: Chronic pain syndrome[ICD10: G89.4] Diagnosis: Major depressive disorder, recurrent, moderate[ICD10: F33.1] Leydi Jacobo MD, [facility] CPT-4: 22446 10/14/2016 [id number] EST. PATIENT, LEVEL IV Diagnosis: Psychophysiologic insomnia[ICD10: F51.04] Diagnosis: Major depressive disorder, recurrent, moderate[ICD10: F33.1] Diagnosis: Alcohol dependence, uncomplicated[ICD10: F10.20] Diagnosis: Chronic pain syndrome[ICD10: G89.4] Leydi Jacobo MD, [facility] CPT-4: 43028 09/16/2016 ([id number]) 56307 EST. P ATIENT, LEVEL III Diagnosis: Pain in left shoulder[ICD10: M25.512] Diagnosis: Major depressive disorder, recurrent, moderate[ICD10: F33.1] Diagnosis: Psychophysiologic insomnia[ICD10: F51.04] Leydi Jacobo MD, [facility] CPT-4: 05210 08/19/2016 ([id number]) 96586 EST. P ATIENT, LEVEL III Diagnosis: Gastro-esophageal reflux disease without esophagitis[ICD10: K21.9] Diagnosis: Hypothyroidism, unspecified[ICD10: E03.9] Leydi Jacobo MD, [facility] CPT-4: 08820 06/17/2016 ([id number]) 34902 EST. P ATIENT, LEVEL IV Diagnosis: Gastro-esophageal reflux disease without esophagitis[ICD10: K21.9] Diagnosis: Hypothyroidism, unspecified[ICD10: E03.9] Diagnosis: Major depressive disorder, recurrent, moderate[ICD10: F33.1] Leydi Jacobo MD, [facility] CPT-4: 95011 05/12/2016 ([id number]) 94203 EST. P ATIENT, LEVEL III Diagnosis: Cervicalgia[ICD10: M54.2] Diagnosis: Hypothyroidism, unspecified[ICD10: E03.9] Diagnosis: Other male erectile dysfunction[ICD10: N52.8] Leydi Jacobo MD, [facility] CPT-4: 08160 02/16/2016 ([id number]) 11045 EST. P ATIENT, LEVEL III Diagnosis: Lumbago with sciatica, unspecified side[ICD10: M54.40] Diagnosis: Other male erectile dysfunction[ICD10: N52.8] [facility] CPT-4: 28040 11/17/2015 ([id number]) 93996 EST. P ATIENT, LEVEL III Diagnosis: Lumbago with sciatica, unspecified side[ICD10: M54.40] Diagnosis: Hypothyroidism, unspecified[ICD10: E03.9] Diagnosis: Other male erectile dysfunction[ICD10: N52.8] [facility] CPT-4: 11262 08/28/2015 ([id number]) 15091 EST. P ATIENT, LEVEL III Diagnosis: Back pain, chronic[ICD9: 724.5] Diagnosis: Depression[ICD9: 311] Diagnosis: Hypothyroid[ICD9: 244.9] Diagnosis: Bilateral calf pain[ICD9: 729.5] [facility] CPT-4: 28115 05/28/2015 ([id number]) OFFICE VISI T, NEW - LEVEL 4 Diagnosis: Back pain, chronic[ICD9: 724.5] Diagnosis: Depression[ICD9: 311] Diagnosis: Hypothyroid[ICD9: 244.9] [facility] CPT-4: 72780 04/23/2015 Plan of Care Planned Activity Notes C odes Status Date Patient Education: Patient Medication Summary Completed 06/09/2017 Patient Education: Obesity Completed 06/09/2017 Patient Education: Patient Medication Summary Completed 04/07/2017 Patient Education: Obesity Completed 04/07/2017 Appointment: Leydi Hightower WPtel: [address] [place], [place] [id number] (30 min) [facility] 11/17/2016 Patient Education: Patient Medication Summary Completed 11/17/2016 [facility] [phone] [phone] [place] ([facility] min[facility] Complex 11/10/2016 Patient Education: Patient Medication Summary Completed 11/10/2016 [facility] [phone] [phone] [place] ([facility] min[facility] Complex 10/14/2016 Patient Education: Patient Medication Summary Completed 10/14/2016 [facility] [phone] [phone] [place] ([facility] min[facility] Complex 09/16/2016 Patient Education: Patient Medication Summary Completed 09/16/2016 Appointment: Leydi Hightower WPtel: [phone] [phone] [place] (30 min) Complex 08/19/2016 Patient Education: Patient Medication Summary Completed 08/19/2016 Patient Education: Obesity Completed 08/19/2016 Patient Education: Patient Medication Summary Completed 06/17/2016 Patient Education: Obesity Completed 06/17/2016 [facility] [phone] [phone] [place] ([facility] min) Complex 06/09/2016 App[facility]ment: [facility] [phone] [phone] [place] ([facility] min) Complex 05/12/2016 Patient [...] Summary Completed 08/28/2015 Appointment: Leydi Hightower WPtel: [facility] [phone] [place] (30 min) Complex 05/28/2015 Patient Education: Patient Medication Summary Completed 05/28/2015 Patient Education: Patient Medication Summary Completed 04/23/2015 Patient Education: [facility] - Saving AutoInj - 18-64 - Dynamic Portal ID Completed 04/23/2015 Patient Education: [facility] - Saving AutoInj - Levothyroxine - 18-64 - Dynamic Portal ID Completed 04/23/2015 Care Plan: COMPLETE CBC AUTOMATED LOINC : 98762-5 Ordered 04/23/2015 Instructions No Instructions
--- OUTSIDE RECORDS SUMMARY | 2020-03-17 14:56 | XMS REPORT | CCD ---
Author Author Thai Castillo Organization Sara Jacobo MD, 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 Name Role Phone PP Unavailable CCM Unavailable Summary Purpose Interface Exchange Insurance Providers Payer name Policy type / Coverage type Covered alliance party ID Effective Begin Date Effective End Date WPS Medicare Part B Medicare Part B [id number] Unknown Unknown [facility] icare Part B [id number] Unknown Unk nown Family history Father Diagnosis Age At Onset Colon cancer Unknown Social History Social History Element Codes Description Effective Dates Marital status Unknown D ivorced 04/23/[address]: 744938470 Never smoker 04/23/[address]: 094877 Currently drinks alcohol occasionally drinks 04/23/2015 Allergies, Adverse Reactions, Alerts Allergies, Adverse Reactions, Alerts data not found Past Medical History Illness Codes Condition Status Onset Date Resolved Date Chronic pain syndrome ICD-9: 338.4 ICD-10: G89.4 Active 10/13/2016 Unknown Pain in left knee ICD-9: 719.46 ICD-10: M25.562 Active 04/07/2017 Unknown Cellulitis of left u pper limb ICD-9: 682.3 ICD-10: L03.114 Active 11/16/2016 Unknown Superficial foreign body of left upper arm, initial encounter ICD-9: 912.6 ICD-10: S40.852A Active 11/16/2016 Unknown Major depressive dis order, recurrent, moderate ICD-9: 296.32 ICD-10: F33.1 Active 10/13/2016 Unknown Alcohol dependence, uncomplicated ICD-9: 303.90 ICD-10: [...] syndrome ICD-9: 338.4 ICD-10: G89.4 10/13/2016 Active Pain in left knee ICD-9: 719.46 ICD-10: M25.562 04/07/2017 Active Cellulitis of left u pper limb ICD-9: 682.3 ICD-10: L03.114 11/16/2016 Active Superficial foreign body of left upper arm, initial encounter ICD-9: 912.6 ICD-10: S40.852A 11/16/2016 Active Major depressive dis order, recurrent, moderate ICD-9: 296.32 ICD-10: F33.1 10/13/2016 Active Alcohol dependence, uncomplicated ICD-9: 303.90 ICD-10: [...] Date Stop Date Sta tus Fill Instructions clonazepam 1 mg tablet RxNorm: 256844 1/2 Tablet(s) PO daily 05/24/2017 11/19/2017 Active bupropion HCl XL 300 mg 24 hr tablet, extended release RxNorm: 801400 TAKE ONE TABLET BY MOUTH DAILY 03/16/2017 06/13/2017 Active clonazepam 1 mg tablet RxNorm: 763598 1/2 Tablet(s) PO daily 02/22/2017 05/19/2017 Inactive Remeron 15 mg tablet RxNorm: 186670 TAKE ONE TABLET BY MOUTH EVERY NIGHT AT BEDTIME 02/06/2017 2017 Active Protonix 40 mg table t,delayed release RxNorm: 680272 TAKE ONE TABLET BY MO UTH DAILY 01/26/2017 06/24/2017 Ac tive mupirocin 2 % topica l ointment RxNorm: 878885 1 Application TOP BID 01/12/2017 01/18/2017 Inactive Bactrim DS 800 mg-16 0 mg tablet RxNorm: 510974 1 Tablet(s) PO BID 11/17/2016 11/23/2016 Inactive mupirocin 2 % topica l ointment RxNorm: 342055 1 Application TOP BID 11/10/2016 11/16/2016 Inactive Bactrim DS 800 mg-16 0 mg tablet RxNorm: 707503 1 Tablet(s) PO BID 11/10/2016 11/16/2016 Inactive bupropion HCl XL 300 mg 24 hr tablet, extended release RxNorm: 830084 TAKE ONE TABLET BY MOUTH DAILY 11/07/2016 03/06/2017 Inactive liothyronine 5 mcg t ablet RxNorm: 508386 1 Tablet(s) PO daily 11/01/2016 10/26/2017 Active levothyroxine 200 mc g tablet RxNorm: 796881 1 Tablet(s) PO daily 10/04/2016 09/28/2017 Active clonazepam 1 mg tablet RxNorm: 687673 1/2 Tablet(s) PO daily 09/21/2016 03/18/2017 Inactive trazodone 50 mg tablet RxNorm: 400021 1/2 Tablet(s) as needed 1 Tablet(s) PO Q HS 09/16/2016 01/13/2017 In active baclofen 10 mg tablet RxNorm: 014429 1 Tablet(s) PO TID as needed 09/16/2016 No Stop Date Active clonazepam 1 mg tablet RxNorm: 488276 1/2 Tablet(s) PO daily 09/16/2016 09/20/2016 Inactive Abilify 2 mg tablet RxNorm: 088436 1 Tablet(s) PO daily 09/16/2016 10/13/2016 Inactive morphine 15 mg immed iate release tablet RxNorm: 272178 1 Tablet(s) PO Q6 PRN 09/16/2016 04/06/2017 In active MS Contin 30 mg tabl et,extended release RxNorm: 919666 1 Tablet(s) PO Q12H 09/16/2016 04/06/2017 In active Remeron 15 mg tablet RxNorm: 700289 1 Tablet(s) PO QHS 08/19/2016 09/15/2016 Inactive levothyroxine 200 mc g tablet RxNorm: 687661 1 Tablet(s) PO daily 08/11/2016 10/03/2016 Inactive bupropion HCl XL 300 mg 24 hr tablet, extended release RxNorm: 440219 TAKE ONE TABLET BY MOUTH DAILY 08/11/2016 11/06/2016 Inactive Protonix 40 mg table t,delayed release RxNorm: 771596 1 Tablet(s) PO daily 06/17/2016 12/13/2016 In active bupropion HCl XL 300 mg 24 hr tablet, extended release RxNorm: 801778 1 Tablet(s) PO daily 05/12/2016 07/10/2016 Inactive bupropion HCl XL 300 mg 24 hr tablet, extended release RxNorm: 263570 1 Tablet(s) PO daily 05/12/2016 05/11/2016 Inactive Cialis 20 mg tablet RxNorm: 764220 1 Tablet(s) PO PRN 02/16/2016 No Stop Date Active not more than 1 tab in 24 hours morphine ER 10 mg ca psule,extended release pellets RxNorm: 514941 1 Tablet(s) PO Q6 as needed 02/16/2016 11/16/2016 Inactive clonazepam 1 mg tablet RxNorm: 135189 1/2 Tablet(s) PO BID 02/16/2016 09/15/2016 Inactive trazodone 50 mg tablet RxNorm: 974325 1/2 Tablet(s) as needed 1 Tablet(s) PO Q HS 02/16/2016 08/18/2016 In active trazodone 50 mg tablet RxNorm: 722302 1/2 Tablet(s) 1 Tablet(s) PO QHS 11/17/2015 02/15/2016 In active trazodone 50 mg tablet RxNorm: 211111 1 Tablet(s) PO QHS 10/19/2015 11/16/2015 Inactive levothyroxine 200 mc g tablet RxNorm: 514884 1 Tablet(s) PO daily 10/02/2015 08/10/2016 Inactive Wellbutrin XL 150 mg 24 hr tablet, extended release RxNorm: 719078 1 Tablet(s) PO daily 10/02/2015 05/11/2016 Inactive levothyroxine 200 mc g tablet RxNorm: 878413 1 Tablet(s) PO daily 09/30/2015 10/01/2015 Inactive Wellbutrin XL 150 mg 24 hr tablet, extended release RxNorm: 882755 1 Tablet(s) PO daily 09/30/2015 10/01/2015 Inactive trazodone 50 mg tablet RxNorm: 784704 1 Tablet(s) PO QHS 09/11/2015 10/10/2015 Inactive trazodone 50 mg tablet RxNorm: 258143 1 Tablet(s) PO QHS 09/11/2015 09/10/2015 Inactive Cymbalta 30 mg capsu le,delayed release RxNorm: 810104 1 Capsule(s) PO daily 09/07/2015 11/16/2015 In active Cymbalta 60 mg capsu le,delayed release RxNorm: 071565 1 Capsule(s) PO daily 08/31/2015 08/30/2015 In active Cymbalta 30 mg capsu le,delayed release RxNorm: 897617 1 Capsule(s) PO daily take with 60mg to make 90 mg daily 08/31/2015 09/06/2015 Inactive Cymbalta 30 mg capsu le,delayed release RxNorm: 473843 1 Capsule(s) PO daily take with 60mg to make 90 mg daily 08/31/2015 08/30/2015 Inactive Cymbalta 60 mg capsu le,delayed release RxNorm: 092469 1 Capsule(s) PO daily x 7 days and then increase to 90mg daily 08/31/2015 09/07/2015 Inactive levothyroxine 200 mc g tablet RxNorm: 245460 1 Tablet(s) PO daily 08/14/2015 09/29/2015 Inactive Wellbutrin XL 150 mg 24 hr tablet, extended release RxNorm: 694017 1 Tablet(s) PO daily 07/14/2015 09/29/2015 Inactive Cialis 20 mg tablet RxNorm: 388268 1 Tablet(s) PO PRN 07/02/2015 02/15/2016 Inactive not more than 1 tab in 24 hours liothyronine 5 mcg t ablet RxNorm: 542116 1 Tablet(s) PO daily 2015 05/29/2016 Inactive clonazepam 1 mg tablet RxNorm: 510238 1 Tablet(s) PO TID 2015 02/15/2016 Inactive minocycline 50 mg ta blet RxNorm: 502045 1 Tablet(s) PO daily 2015 05/11/2016 Inactive Wellbutrin XL 150 mg 24 hr tablet, extended release RxNorm: 848389 1 Tablet(s) PO daily 04/23/2015 07/13/2015 Inactive levothyroxine 200 mc g tablet RxNorm: 976625 1 Tablet(s) PO daily 04/23/2015 08/13/2015 Inactive diclofenac oral RxNorm: 3355 oral No Start Date Active Opana ER 15 mg table t, crush resistant, extended release RxNorm: 451710 1 Tablet(s) PO Q12H No Start Date Active Aleve oral RxNorm: 077010 oral No Start Date Active Tylenol 500 mg RxNorm: oral No Start Date Active Opana ER 5 mg tablet , crush resistant, extended release RxNorm: 677219 1 Tablet(s) PO Q6 No Start Date Active morphine ER 15 mg ta blet,extended release RxNorm: 507531 oral No Start Date 11/16/2016 Inactive Trazadone 25 mg RxNorm: 2 PO daily No Start Date 09/11/2015 Inactive clonazepam 1 mg tablet RxNorm: 766876 1 Tablet(s) PO QHS No Start Date 06/04/2015 Inactive Wellbutrin XL 150 mg 24 hr tablet, extended release RxNorm: 468026 1 Tablet(s) PO daily No Start Date 04/22/2015 Inactive minocycline 50 mg ta blet RxNorm: 298347 1 Tablet(s) PO daily No Start Date 06/04/2015 Inactive methadone 5 mg tablet RxNorm: 649737 1 Tablet(s) PO Q8 No Start Date 02/15/2016 Inactive Protonix 40 mg table t,delayed release RxNorm: 277177 Tablet(s) PO daily No Start Date 06/16/2016 Inactive MS Contin 30 mg tabl et,extended release RxNorm: 104507 1 Tablet(s) PO Q12H No Start Date 02/15/2016 Inactive Opana ER 15 mg table t, crush resistant, extended release RxNorm: 072045 1 Tablet(s) PO BID No Start Date 09/15/2016 Inactive liothyronine 5 mcg t ablet RxNorm: 990257 1 Tablet(s) PO daily No Start Date 06/04/2015 Inactive Cialis 20 mg tablet RxNorm: 562484 1 Tablet(s) PO PRN No Start Date 07/01/2015 Inactive not more than 1 tab in 24 hours baclofen 10 mg tablet RxNorm: 300819 1 Tablet(s) PO TID as needed No Start Date 05/11/2016 Inactive morphine 15 mg immed iate release tablet RxNorm: 064375 1 Tablet(s) PO Q6 PRN as needed No Start Date 02/15/2016 Inactive levothyroxine 200 mc g tablet RxNorm: 587145 1 Tablet(s) PO daily No Start Date 04/22/2015 Inactive Medication Administered No Medication Administered data Immunizations No Immunization data Assessments Condition Codes Effectiv e Dates Pain in left knee ICD-10: M25.562 ICD-9: 719.46 04/07/2017 Chronic pain syndrome ICD-10: G89.4 ICD-9: 338.4 04/07/2017 Cellulitis of left upper limb ICD-10 : L03.114 ICD-9: 682.3 11/17/2016 Superficial foreign body of left upper arm, initial en counter ICD-10: S40.852A ICD-9: 912.6 11/17/2016 Major depressive disorder, recurrent, moderate ICD-10: F33.1 ICD-9: 296.32 10/14/2016 Alcohol dependence, uncomplicated IC D-10: F10.20 ICD-9: [...] For Visit Effective Dates Notes back pain 04/07/2017 Mor phine sores 11/17/2016 sores 11/10/2016 back pain 10/14/2016 back pain 09/16/2016 back pain 08/19/2016 back pain 06/17/2016 back pain 05/12/2016 back pain 02/16/2016 back pain 11/17/2015 back pain 08/28/2015 depression 05/28/2015 depression 04/23/2015 Results Observation Observation Code Item Item Code Result Date Comp Metabolic Erk145 NA 136 mEq/L 02/16/2016 Comp Metabolic Gjb240 K 4.2 mEq/L 02/16/2016 Comp Metabolic Zru342 CL 104 mEq/L 02/16/2016 Comp Metabolic Qma949 CO2 20.0 mEq/L 02/16/2016 Comp Metabolic Qxp941 AN ION GAP 16 02/16/2016 Comp Metabolic Atk475 GL UCOSE 71 mg/dL 02/16/2016 Comp Metabolic Tqc487 Cr eat 0.8 mg/dL 02/16/2016 Comp Metabolic Mri954 eG FR 113 ml/min/1.73m2 01/26 Comp Metabolic Tsx878 BUN 7 mg/dL 02/16/2016 Comp Metabolic Fwk383 B/ C Ratio 9.1 Ratio 02/16/2016 Comp Metabolic Jlq444 CA LCIUM 9.4 mg/dL 02/16/2016 Comp Metabolic Qfx229 AL K PHOS 57 U/L 02/16/2016 Comp Metabolic Sie199 T(SGOT) 30 U/L 02/16/2016 Comp Metabolic Jyb614 AL T(SGPT) 27 U/L 02/16/2016 Comp Metabolic Paj624 BI LI T 0.2 mg/dL 02/16/2016 Comp Metabolic Ato627 AL BUMIN 4.4 g/dL 02/16/2016 Comp Metabolic Bkg254 TP RO 6.5 g/dL 02/16/2016 Comp Metabolic Ckm619 GL OB 2.1 g/dL 02/16/2016 Comp Metabolic Afn130 A/ G Ratio 2.1 Ratio 02/16/2016 Comp Metabolic Osj311 Os mo 268 mOsmo 02/16/2016 Free T4 Rff653 FREE T4 1.20 ng/dL 02/16/2016 Cbc With [...] 90.6 fl 02/16/2016 Cbc With Differential Ord2 Smith% 9.6 % 02/16/2016 Cbc With Differential Ord2 [...] 1.50 K/ul 02/16/2016 Cbc With Differential Ord2 Smith ABS# 0.5 K/ul 02/16/2016 Cbc With Differential Ord2 Eos ABS# 0.1 K/ul 02/16/2016 Cbc With Differential Ord2 Baso ABS# 0.0 K/ul 02/16/2016 Cbc With Differential Ord2 New Analyzer Notice Please note new ref ranges s tarting 12-09-2015 due to implemntation of new five part differential hematolgy analyzer. 02/16/2016 Tsh Ord6 hTSH II 0.08 uIU/mL 02/16/2016 Review of Systems System Result Effective Dates Musculoskeletal back pain 04/07/2017 Musculoskeletal joint complaint [...] No Procedures data Vital Signs Date Vital 04/07/2017 Blood Pressure 1: 140/84 Code: 8480-6 BMI: 30.3 Code: 22005-5 Heart Rate 1: 81 bpm Height: 5'6" SpO2: 99% Weight: 188 lbs 11/17/2016 Blood Pressure 1: 130/72 Code: 8480-6 Heart Rate 1: 63 bpm Height: SpO2: 93% Weight: 11/10/2016 Blood Pressure 1: 128/86 Code: 8480-6 BMI: 30.3 Code: 53178-8 Heart Rate 1: 84 bpm Height: 5'6" SpO2: 96% Weight: 188 lbs 10/14/2016 Heigh t: 5'6" 09/16/2016 Blood Pressure 1: 130/80 Code: 8480-6 BMI: 30.3 Code: 17856-2 Heart Rate 1: 67 bpm Height: 5'6" SpO2: 99% Weight: 188 lbs 08/19/2016 Blood Pressure 1: 110/62 Code: 8480-6 BMI: 29.9 Code: 66898-9 Heart Rate 1: 70 bpm Height: 5'6" SpO2: 97% Weight: 185 lbs 06/17/2016 Blood Pressure 1: 112/68 Code: 8480-6 BMI: 27.6 Code: 39455-8 Heart Rate 1: 61 bpm Height: 5'6" SpO2: 98% Weight: 171 lbs 05/12/2016 Blood Pressure 1: 130/76 Code: 8480-6 BMI: 29.7 Code: 20243-6 Heart Rate 1: 103 bpm Height: 5'6" SpO2: 98% Weight: 184 lbs 02/16/2016 Blood Pressure 1: 140/82 Code: 8480-6 BMI: 28.7 Code: 46335-5 Heart Rate 1: 66 bpm Height: 5'6" SpO2: 99% Weight: 178 lbs 11/17/2015 Blood Pressure 1: 120/74 Code: 8480-6 BMI: 29.4 Code: 67366-5 Heart Rate 1: 90 bpm Height: 5'6" SpO2: 94% Weight: 182 lbs 08/28/2015 Blood Pressure 1: 128/76 Code: 8480-6 BMI: 27.9 Code: 87763-3 Heart Rate 1: 80 bpm Height: 5'6" SpO2: 98% Weight: 173 lbs 05/28/2015 Blood Pressure 1: 122/70 Code: 8480-6 BMI: 27.0 Code: 27211-0 Heart Rate 1: 74 bpm Height: 5'6" SpO2: 98% Weight: 167 lbs 04/23/2015 Blood Pressure 1: 110/60 Code: 8480-6 BMI: 27.0 Code: 02445-9 Heart Rate 1: 68 bpm Height: 5'6" [...] Encounters Encounter Performer Loca tion Codes Date ([id number]) 98002 EST. P ATIENT, LEVEL III Diagnosis: Chronic pain syndrome[ICD10: G89.4] Diagnosis: Pain in left knee[ICD10: M25.562] Leydi Jacobo MD, [facility] CPT- 4: 80136 04/07/2017 01038 EST. PATIENT, LEVEL II Diagnosis: Superficial foreign body of left upper arm, initial encounter[ICD10: S40.852A] Diagnosis: Cellulitis of left upper limb[ICD10: L03.114] Leydi Jacobo MD, [facility] CPT-4: 18011 11/17/2016 29192 EST. PATIENT, LEVEL II Diagnosis: Cellulitis of left upper limb[ICD10: L03.114] Leydi Jacobo MD, [facility] CPT-4: 71524 11/10/2016 ([id number]) 86144 EST. [facility] Diagnosis: Chronic pain syndrome[ICD10: G89.4] Diagnosis: Major depressive disorder, recurrent, moderate[ICD10: F33.1] Leydi Jacobo MD, [facility] CPT-4: 43354 10/14/2016 93001 EST. PATIENT, LEVEL IV Diagnosis: Psychophysiologic insomnia[ICD10: F51.04] Diagnosis: Major depressive disorder, recurrent, moderate[ICD10: F33.1] Diagnosis: Alcohol dependence, uncomplicated[ICD10: F10.20] Diagnosis: Chronic pain syndrome[ICD10: G89.4] Leydi Jacobo MD, [facility] CPT-4: 57114 09/16/2016 ([id number]) 58237 EST. P ATIENT, LEVEL III Diagnosis: Pain in left shoulder[ICD10: M25.512] Diagnosis: Major depressive disorder, recurrent, moderate[ICD10: F33.1] Diagnosis: Psychophysiologic insomnia[ICD10: F51.04] Leydi Jacobo MD, [facility] CPT-4: 31206 08/19/2016 ([id number]) 93083 EST. P ATIENT, LEVEL III Diagnosis: Gastro-esophageal reflux disease without esophagitis[ICD10: K21.9] Diagnosis: Hypothyroidism, unspecified[ICD10: E03.9] Leydi Jacobo MD, [facility] CPT-4: 42202 06/17/2016 ([id number]) 40200 EST. P ATIENT, LEVEL IV Diagnosis: Gastro-esophageal reflux disease without esophagitis[ICD10: K21.9] Diagnosis: Hypothyroidism, unspecified[ICD10: E03.9] Diagnosis: Major depressive disorder, recurrent, moderate[ICD10: F33.1] Leydi Jacobo MD, [facility] CPT-4: 71400 05/12/2016 ([id number]) 43917 EST. P ATIENT, LEVEL III Diagnosis: Cervicalgia[ICD10: M54.2] Diagnosis: Hypothyroidism, unspecified[ICD10: E03.9] Diagnosis: Other male erectile dysfunction[ICD10: N52.8] Leydi Jacobo MD, [facility] CPT-4: 79799 02/16/2016 ([id number]) 84645 EST. P ATIENT, LEVEL III Diagnosis: Lumbago with sciatica, unspecified side[ICD10: M54.40] Diagnosis: Other male erectile dysfunction[ICD10: N52.8] Leydi Jacobo MD, [facility] CPT-4: 02209 11/17/2015 ([id number]) 74919 EST. P ATIENT, LEVEL III Diagnosis: Lumbago with sciatica, unspecified side[ICD10: M54.40] Diagnosis: Hypothyroidism, unspecified[ICD10: E03.9] Diagnosis: Other male erectile dysfunction[ICD10: N52.8] Leydi Jacobo MD, [facility] CPT-4: 27535 08/28/2015 ([id number]) 25200 EST. P ATIENT, LEVEL III Diagnosis: Back pain, chronic[ICD9: 724.5] Diagnosis: Depression[ICD9: 311] Diagnosis: Hypothyroid[ICD9: 244.9] Diagnosis: Bilateral calf pain[ICD9: 729.5] Julieta Jacobo MD, [facility] CPT-4: 65698 05/28/2015 ([id number]) OFFICE VISI T, NEW - LEVEL 4 Diagnosis: Back pain, chronic[ICD9: 724.5] Diagnosis: Depression[ICD9: 311] Diagnosis: Hypothyroid[ICD9: 244.9] [facility] CPT-4: 24650 04/23/2015 Plan of Care Planned Activity Notes [...] completely resolve 11/17/2016 Appointment: Leydi Hightower WPtel: [phone] (30 min) Complex 11/17/2016 Patient Education: [...] in pain. 11/10/2016 Appointment: Leydi Hightower WPtel: [phone] (30 min) Complex 11/10/2016 Patient Education: [...] of plan. 2015 Appointment: Leydi Hightower WPtel: [phone] (30 min) Complex 10/14/2016 Patient Education: [...] will try 09/16/2016 Appointment: Leydi Hightower WPtel: [phone] (30 min) Complex 09/16/2016 Patient Education: Patient Medication Summary Completed 09/16/2016 Visit Plan: Left shoulder and elbow pain -xray shoulder and elbow Erycepnjvx-fgyjwjma-iijtodommotq-d/c trazodone-start remeron at bedtime Pt has been [...] prescribed for this patient. 08/19/2016 Appointment: Leydi Highotwer WPtel: [phone] (30 min) Complex 08/19/2016 Patient Education: [...] Obesity Completed 06/17/2016 Appointment: Leydi Hightower WPtel: [phone] [phone] (30 min) Complex 06/09/2016 Visit Plan: [...] of control. 05/12/2016 [phone] [facility] Complex 05/12/2016 Patient Education: [...] in office. 2014 Appointment: Leydi Hightower WPtel: [address] [place] [phone] (30 min) Complex 05/28/2015 Patient Education: Patient [...] Care Plan: COMPLETE CBC AUTOMATED LOINC : 33609-6 Ordered 04/23/2015 Instructions Comment . Neck Pain- [...] and elbow pain-xray shou lder and elbow Eslwnbrhba-xvouopzi-uhhleobxpkka-d/c trazodone-start remeron at bedtime Pt has been [...]
--- OUTSIDE RECORDS SUMMARY | 2020-03-17 14:57 | XMS REPORT | CCD ---
Author Author Thai Castillo Organization Sara Jacobo MD, [facility] Address [address] [place] [address] Phone Care Team Providers Care Venereal Disease Control Head Name Role Phone PP Unavailable CCM Unavailable Summary Purpose Interface Exchange Insurance Providers Payer name Policy type / Coverage type Covered constitution party ID Effective Begin Date Effective End Date WPS Medicare Part B Medicare Part B [id number] Unknown [facility] ica Part B [id number] Un known Family history Father Diagnosis Age At Onset Colon cancer Unknown Social History Social History Element Codes Description Effective Dates Marital status Unknown D ivorced 04/23/[address]: 949237480 Never smoker 04/23/[address]: 782174 Currently drinks alcohol occasionally drinks 04/23/2015 Allergies, Adverse Reactions, Alerts Substance Reaction Codes Entered Date Inactivated Date Status * NO KNOWN FOOD FRANCESCO RGIES Unknown 04/23/2015 No Inactive Date Active Penicillin Unknown 04/23/2015 No In active Date Active Past Medical History Illness Codes Condition Status Onset Date Resolved Date Encounter for genera l adult medical examination with abnormal findings ICD-9: V70.0 ICD-10: Z00.01 Active 09/17/2018 Unknown Chronic pain syndrome ICD-9: 338.4 ICD-10: G89.4 Active 10/13/2016 Unknown Encounter for screen ing for malignant neoplasm of prostate ICD-9: V76.44 ICD-10: Z12.5 Active 07/05/2018 Unknown Hypothyroidism, unsp ecified ICD-9: 244.9 ICD-10: E03.9 Active 06/16/2016 Unknown Major depressive dis order, recurrent, moderate ICD-9: 296.32 ICD-10: F33.1 Active 10/13/2016 Unknown Other fatigue ICD-9: 780.79 ICD-10: R53.83 Active 03/28/2018 Unknown Other male erectile dysfunction ICD-9: 607.84 ICD-10: N52.8 Active 02/15/2016 Unknown Diarrhea, unspecified ICD-9: 787.91 ICD-10: R19.7 Active 03/28/2018 Unknown Melena ICD-9: 578.1 ICD-10: K92.1 Active 03/28/2018 Unknown Other malaise ICD-9: 780.79 ICD-10: R53.81 Active 03/28/2018 Unknown Pain in unspecified joint ICD-9: 719.40 ICD-10: M25.50 Active 03/28/2018 Unknown Obstructive sleep ap susan (adult) (pediatric) ICD-9: 327.23 ICD-10: G47.33 Active 02/27/2018 Unknown Other obesity due to excess calories ICD-9: 278.00 ICD-10: E66.09 Active 02/27/2018 Unknown Anemia, unspecified ICD- 9: 285.9 ICD-10: [...] Condition Codes Effectiv e Dates Condition Status Encounter for genera l adult medical examination with abnormal findings ICD-9: V70.0 ICD-10: Z00.01 09/17/2018 Active Chronic pain syndrome ICD-9: 338.4 ICD-10: G89.4 10/13/2016 Active Encounter for screen ing for malignant neoplasm of prostate ICD-9: V76.44 ICD-10: Z12.5 07/05/2018 Active Hypothyroidism, unsp ecified ICD-9: 244.9 ICD-10: E03.9 06/16/2016 Active Major depressive dis order, recurrent, moderate ICD-9: 296.32 ICD-10: F33.1 10/13/2016 Active Other fatigue ICD-9: 780.79 ICD-10: R53.83 03/28/2018 Active Other male erectile dysfunction ICD-9: 607.84 ICD-10: N52.8 02/15/2016 Active Diarrhea, unspecified ICD-9: 787.91 ICD-10: R19.7 03/28/2018 Active Melena ICD-9: 578.1 ICD-10: K92.1 03/28/2018 Active Other malaise ICD-9: 780.79 ICD-10: R53.81 03/28/2018 Active Pain in unspecified joint ICD-9: 719.40 ICD-10: M25.50 03/28/2018 Active Obstructive sleep ap susan (adult) (pediatric) ICD-9: 327.23 ICD-10: G47.33 02/27/2018 Active Other obesity due to excess calories ICD-9: 278.00 ICD-10: E66.09 02/27/2018 Active Anemia, unspecified ICD- 9: 285.9 ICD-10: [...] Fill Instructions baclofen 10 mg tablet RxNorm: 226992 TAKE ONE TABLET BY MOUTH THREE TIMES A D AY NEEDED 09/12/2018 11/10/2018 Active Remeron 15 mg tablet RxNorm: 928433 1.5 Tablet(s) PO QPM TAKE ONE TABLET BY MOUTH EVERY NIGHT AT BEDTIME 09/03/2018 12/01/2018 Active oxymorphone 5 mg tablet RxNorm: 296239 1 Tablet(s) PO Q6 PRN 09/03/2018 11/01/2018 Active morphine 30 mg table t, crush resistant, extended release RxNorm: 7111216 1 Tablet(s) PO BID 09/03/2018 11/01/2018 Active trazodone 50 mg tablet RxNorm: 074148 TAKE ONE TABLET BY MOUTH EVERY NIGHT AT BEDTIME AND ONE-HALF TABLET BY MOUTH NEEDED 09/03/2018 10/12/2018 Active tizanidine 4 mg tablet RxNorm: 014959 TAKE ONE TABLET BY MOUTH THREE TIMES A D AY NEEDED 08/20/2018 10/18/2018 Active Protonix 40 mg table t,delayed release RxNorm: 956557 TAKE ONE TABLET BY [facility] DAILY 08/10/2018 02/05/2019 Ac tive Carafate 1 gram tablet RxNorm: 202583 TAKE ONE TABLET BY MOUTH BEFORE MEALS AN D AT BEDTIME NEEDED FOR HEARTBURN 07/31/2018 12/27/2018 Active Protonix 40 mg table t,delayed release RxNorm: 242260 1 Tablet(s) BID 07/24/2018 07/23/2018 Inactive Protonix 40 mg table t,delayed release RxNorm: 086409 1 Tablet(s) daily 07/24/2018 08/09/2018 In active liothyronine 5 mcg t ablet RxNorm: 490464 TAKE ONE TABLET BY [facility] DAILY 07/19/2018 01/14/2019 Ac tive baclofen 10 mg tablet RxNorm: 695339 TAKE ONE TABLET BY MOUTH THREE TIMES A D AY NEEDED 07/12/2018 09/09/2018 Inactive levothyroxine 175 mc g tablet RxNorm: 940969 1 Tablet(s) PO daily 07/11/2018 11/07/2018 Active Vitamin D2 50,000 un it capsule RxNorm: 9162692 1 Capsule(s) PO QW 07/11/2018 10/02/2018 Active trazodone 50 mg tablet RxNorm: 264596 TAKE ONE TABLET BY MOUTH EVERY NIGHT AT BEDTIME AND ONE-HALF TABLET BY MOUTH NEEDED 07/11/2018 08/19/2018 Inactive Vitamin D2 50,000 un it capsule RxNorm: 8570133 1 Capsule(s) PO QW 07/11/2018 07/10/2018 Inactive morphine 30 mg table t, crush resistant, extended release RxNorm: 5464468 1 Tablet(s) PO BID 07/05/2018 09/02/2018 Inactive oxymorphone 5 mg tablet RxNorm: 761703 1 Tablet(s) PO Q6 PRN 07/05/2018 09/02/2018 Inactive bupropion HCl XL 300 mg 24 hr tablet, extended release RxNorm: 050153 TAKE ONE TABLET BY MOUTH DAILY 06/27/2018 12/23/2018 Active Remeron 15 mg tablet RxNorm: 540471 TAKE ONE TABLET BY MOUTH EVERY NIGHT AT BEDTIME 06/27/2018 09/02/2018 Inactive tizanidine 4 mg tablet RxNorm: 038866 TAKE ONE TABLET BY MOUTH THREE TIMES A D AY NEEDED 06/20/2018 08/18/2018 Inactive doxycycline hyclate 100 mg tablet RxNorm: 0202166 1 Tablet(s) PO BID 06/18/2018 07/01/2018 Inactive Protonix 40 mg table t,delayed release RxNorm: 018065 TAKE ONE TABLET BY [facility] DAILY 06/11/2018 07/23/2018 In active doxycycline hyclate 100 mg tablet RxNorm: 4315826 1 Tablet(s) PO BID 05/22/2018 06/04/2018 Inactive baclofen 10 mg tablet RxNorm: 869289 TAKE ONE TABLET BY MOUTH THREE TIMES A D AY NEEDED 05/14/2018 07/11/2018 Inactive diclofenac sodium 75 mg tablet,delayed release RxNorm: 597476 TAKE ONE TABLET BY [facility] TWICE A DAY 05/07/2018 10/03/2018 Active oxymorphone 5 mg tablet RxNorm: 288894 1 Tablet(s) PO Q6 PRN 05/04/2018 07/02/2018 Inactive morphine 30 mg table t, crush resistant, extended release RxNorm: 5834220 1 Tablet(s) PO BID 05/04/2018 07/02/2018 Inactive doxycycline hyclate 100 mg tablet RxNorm: 969954 1 Tablet(s) PO BID 04/24/2018 04/23/2018 Inactive doxycycline hyclate 100 mg tablet RxNorm: 7658560 1 Tablet(s) PO BID 04/24/2018 05/03/2018 Inactive baclofen 10 mg tablet RxNorm: 199619 TAKE ONE TABLET BY MOUTH THREE TIMES A D AY NEEDED 04/13/2018 05/12/2018 Inactive trazodone 50 mg tablet RxNorm: 083963 TAKE ONE TABLET BY MOUTH EVERY NIGHT AT BEDTIME AND ONE-HALF TABLET BY MOUTH NEEDED 04/09/2018 06/07/2018 Inactive Questran 4 gram powd er for susp in a packet RxNorm: 075435 1 packet PO BID 04/06/2018 06/04/2018 In active Questran 4 gram powd er for susp in a packet RxNorm: 016123 1 packet PO BID 04/06/2018 04/05/2018 In active Carafate 1 gram tablet RxNorm: 782932 1 Tablet(s) PO AC & HS as needed for hea rtburn 03/28/2018 04/26/2018 Inactive baclofen 10 mg tablet RxNorm: 112400 TAKE ONE TABLET BY MOUTH THREE TIMES A D AY NEEDED 03/16/2018 04/12/2018 Inactive Protonix 40 mg table t,delayed release RxNorm: 984093 TAKE ONE TABLET BY [facility] DAILY 03/16/2018 06/10/2018 In active Belviq XR 20 mg tabl et,extended release RxNorm: 0567490 1 Tablet(s) PO daily 02/27/2018 04/27/2018 In active oxymorphone 5 mg tablet RxNorm: 244416 1 Tablet(s) PO Q6 PRN 02/27/2018 04/27/2018 Inactive morphine 30 mg table t, crush resistant, extended release RxNorm: 5966625 1 Tablet(s) PO BID 02/27/2018 04/27/2018 Inactive levothyroxine 100 mc g tablet RxNorm: 704122 1 Tablet(s) PO daily 02/27/2018 07/10/2018 Inactive take with 88mcg to = 188mcg daily levothyroxine 88 mcg tablet RxNorm: 106688 1 Tablet(s) PO daily 02/27/2018 07/10/2018 Inactive take with 100mcg to = 188mcg daily morphine 30 mg table t, crush resistant, extended release RxNorm: 0110993 1 Tablet(s) PO BID 02/14/2018 02/26/2018 Inactive levothyroxine 200 mc g tablet RxNorm: 950289 Tablet(s) TAKE ONE TA BLET BY MOUTH DAILY 01/18/2018 02/26/2018 Inactive Updated script baclofen 10 mg tablet RxNorm: 877640 Tablet(s) TAKE ONE TABLET BY MOUTH THREE TIMES A DAY NEEDED 01/15/2018 02/13/2018 Inactive morphine 30 mg table t, crush resistant, extended release RxNorm: 9404837 1 Tablet(s) PO BID 01/15/2018 02/13/2018 Inactive tizanidine 4 mg tablet RxNorm: 791615 TAKE ONE TABLET BY MOUTH THREE TIMES A D AY NEEDED 01/02/2018 04/01/2018 Inactive Request already responded t o by other means (e.g. phone or fax) bupropion HCl XL 300 mg 24 hr tablet, extended release RxNorm: 182222 TAKE ONE TABLET BY MOUTH DAILY 12/29/2017 06/26/2018 Inactive Tamiflu 75 mg capsule RxNorm: 920151 1 Capsule(s) PO BID 12/27/2017 12/31/2017 Inactive Tamiflu 75 mg capsule RxNorm: 272572 1 Capsule(s) PO BID 12/27/2017 12/26/2017 Inactive tizanidine 4 mg tablet RxNorm: 653477 1 Tablet(s) PO TID as needed 12/25/2017 01/01/2018 Inactive levothyroxine 175 mc g tablet RxNorm: 192197 1 Tablet(s) PO daily 12/14/2017 12/13/2017 Inactive levothyroxine 175 mc g tablet RxNorm: 572799 1 Tablet(s) PO daily 12/14/2017 01/17/2018 Inactive baclofen 10 mg tablet RxNorm: 805587 Tablet(s) TAKE ONE TABLET BY MOUTH THREE TIMES A DAY NEEDED 12/13/2017 01/11/2018 Inactive baclofen 10 mg tablet RxNorm: 592939 TAKE ONE TABLET BY MOUTH THREE TIMES A D AY NEEDED 12/13/2017 12/12/2017 Inactive morphine 30 mg table t, crush resistant, extended release RxNorm: 4267053 1 Tablet(s) PO BID 12/12/2017 01/14/2018 Inactive clonazepam 1 mg tablet RxNorm: 263580 1/2 Tablet(s) PO daily 12/01/2017 08/27/2018 Inactive trazodone 50 mg tablet RxNorm: 699982 1/2 to 1 Tablet(s) QHS as needed 12/01/2017 03/30/2018 In active Opana ER 15 mg table t, crush resistant, extended release RxNorm: 257858 1 Tablet(s) PO Q12H 12/01/2017 02/13/2018 Inactive oxymorphone 5 mg tablet RxNorm: 503501 1 Tablet(s) PO Q6 PRN 12/01/2017 02/26/2018 Inactive Remeron 15 mg tablet RxNorm: 338093 Tablet(s) TAKE ONE TABLET BY MOUTH EVERY NIGHT AT BEDTIME 12/01/2017 02/28/2018 Inactive trazodone 50 mg tablet RxNorm: 617458 1/2 Tablet(s) as needed 1 Tablet(s) PO Q HS 12/01/2017 11/30/2017 In active clonazepam 1 mg tablet RxNorm: 976021 1/2 Tablet(s) PO daily 11/30/2017 11/30/2017 Inactive Remeron 15 mg tablet RxNorm: 796222 TAKE ONE TABLET BY MOUTH EVERY NIGHT AT BEDTIME 11/29/2017 11/30/2017 Inactive levothyroxine 200 mc g tablet RxNorm: 110369 TAKE ONE TABLET BY [facility] DAILY 11/15/2017 12/13/2017 In active baclofen 10 mg tablet RxNorm: 729518 TAKE ONE TABLET BY MOUTH THREE TIMES A D AY NEEDED 11/07/2017 12/06/2017 Inactive diclofenac sodium 75 mg tablet,delayed release RxNorm: 275780 1 Tablet(s) PO BID 11/07/2017 05/05/2018 In active liothyronine 5 mcg t ablet RxNorm: 111756 TAKE ONE TABLET BY [facility] DAILY 10/27/2017 07/18/2018 In active tizanidine 4 mg tablet RxNorm: 669702 1 Tablet(s) PO TID as needed 10/18/2017 12/16/2017 Inactive oxymorphone 5 mg tablet RxNorm: 822249 1 Tablet(s) PO Q6 PRN 09/29/2017 11/27/2017 Inactive morphine 30 mg table t, crush resistant, extended release RxNorm: 3977920 1 Tablet(s) PO BID 09/29/2017 11/28/2017 Inactive baclofen 10 mg tablet RxNorm: 646840 1 Tablet(s) PO TID as needed 09/11/2017 10/10/2017 Inactive baclofen 10 mg tablet RxNorm: 316204 1 Tablet(s) PO TID as needed 08/11/2017 09/09/2017 Inactive Opana ER 15 mg table t, crush resistant, extended release RxNorm: 586358 1 Tablet(s) PO Q12H 08/11/2017 09/28/2017 Inactive Remeron 15 mg tablet RxNorm: 097352 TAKE ONE TABLET BY MOUTH EVERY NIGHT AT BEDTIME 08/02/2017 10/30/2017 Inactive oxymorphone 5 mg tablet RxNorm: 671813 1 Tablet(s) PO Q6 PRN 08/02/2017 09/28/2017 Inactive Opana ER 5 mg tablet , crush resistant, extended release RxNorm: 784727 1 Tablet(s) PO Q6 PRN 08/01/2017 08/10/2017 Inactive Protonix 40 mg table t,delayed release RxNorm: 019237 TAKE ONE TABLET BY [facility] DAILY 06/26/2017 10/23/2017 In active Protonix 40 mg table t,delayed release RxNorm: 325568 TAKE ONE TABLET BY [facility] DAILY 06/26/2017 06/25/2017 In active bupropion HCl XL 300 mg 24 hr tablet, extended release RxNorm: 609837 TAKE ONE TABLET BY MOUTH DAILY 06/13/2017 12/09/2017 Inactive tizanidine 4 mg tablet RxNorm: 188052 1 Tablet(s) PO TID as needed 06/13/2017 06/12/2017 Inactive tizanidine 4 mg tablet RxNorm: 746524 1 Tablet(s) PO TID as needed 06/13/2017 09/10/2017 Inactive baclofen 10 mg tablet RxNorm: 213766 1 Tablet(s) PO TID as needed 06/13/2017 07/12/2017 Inactive Opana ER 15 mg table t, crush resistant, extended release RxNorm: 372835 1 Tablet(s) PO Q12H 06/09/2017 08/07/2017 Inactive Opana ER 5 mg tablet , crush resistant, extended release RxNorm: 065923 1 Tablet(s) PO Q6 PRN 06/09/2017 07/31/2017 Inactive diclofenac sodium 75 mg tablet,delayed release RxNorm: 953012 1 Tablet(s) PO BID 06/09/2017 09/06/2017 In active clonazepam 1 mg tablet RxNorm: 544921 1/2 Tablet(s) PO daily 05/24/2017 11/18/2017 Inactive bupropion HCl XL 300 mg 24 hr tablet, extended release RxNorm: 887509 TAKE ONE TABLET BY MOUTH DAILY 03/16/2017 06/12/2017 Inactive clonazepam 1 mg tablet RxNorm: 121593 1/2 Tablet(s) PO daily 02/22/2017 05/18/2017 Inactive Remeron 15 mg tablet RxNorm: 622597 TAKE ONE TABLET BY MOUTH EVERY NIGHT AT BEDTIME 02/06/2017 2017 Inactive Protonix 40 mg table t,delayed release RxNorm: 114111 TAKE ONE TABLET BY [facility] DAILY 01/26/2017 06/24/2017 In active mupirocin 2 % topica l ointment RxNorm: 443339 1 Application TOP BID 01/12/2017 01/18/2017 Inactive Bactrim DS 800 mg-16 0 mg tablet RxNorm: 583033 1 Tablet(s) PO BID 11/17/2016 11/23/2016 Inactive mupirocin 2 % topica l ointment RxNorm: 528795 1 Application TOP BID 11/10/2016 11/16/2016 Inactive Bactrim DS 800 mg-16 0 mg tablet RxNorm: 027533 1 Tablet(s) PO BID 11/10/2016 11/16/2016 Inactive bupropion HCl XL 300 mg 24 hr tablet, extended release RxNorm: 114996 TAKE ONE TABLET BY MOUTH DAILY 11/07/2016 03/06/2017 Inactive liothyronine 5 mcg t ablet RxNorm: 501970 1 Tablet(s) PO daily 11/01/2016 10/26/2017 Inactive levothyroxine 200 mc g tablet RxNorm: 085137 1 Tablet(s) PO daily 10/04/2016 09/28/2017 Inactive clonazepam 1 mg tablet RxNorm: 419953 1/2 Tablet(s) PO daily 09/21/2016 03/18/2017 Inactive clonazepam 1 mg tablet RxNorm: 001031 1/2 Tablet(s) PO daily 09/16/2016 09/20/2016 Inactive Abilify 2 mg tablet RxNorm: 591155 1 Tablet(s) PO daily 09/16/2016 10/13/2016 Inactive trazodone 50 mg tablet RxNorm: 727205 1/2 Tablet(s) as needed 1 Tablet(s) PO Q HS 09/16/2016 01/13/2017 In active morphine 15 mg immed iate release tablet RxNorm: 701159 1 Tablet(s) PO Q6 PRN 09/16/2016 04/06/2017 In active baclofen 10 mg tablet RxNorm: 647023 1 Tablet(s) PO TID as needed 09/16/2016 06/12/2017 Inactive MS Contin 30 mg tabl et,extended release RxNorm: 895122 1 Tablet(s) PO Q12H 09/16/2016 04/06/2017 In active Remeron 15 mg tablet RxNorm: 413307 1 Tablet(s) PO QHS 08/19/2016 09/15/2016 Inactive levothyroxine 200 mc g tablet RxNorm: 495182 1 Tablet(s) PO daily 08/11/2016 10/03/2016 Inactive bupropion HCl XL 300 mg 24 hr tablet, extended release RxNorm: 881101 TAKE ONE TABLET BY MOUTH DAILY 08/11/2016 11/06/2016 Inactive Protonix 40 mg table t,delayed release RxNorm: 425135 1 Tablet(s) PO daily 06/17/2016 12/13/2016 In active bupropion HCl XL 300 mg 24 hr tablet, extended release RxNorm: 419490 1 Tablet(s) PO daily 05/12/2016 07/10/2016 Inactive bupropion HCl XL 300 mg 24 hr tablet, extended release RxNorm: 432917 1 Tablet(s) PO daily 05/12/2016 05/11/2016 Inactive Cialis 20 mg tablet RxNorm: 019345 1 Tablet(s) PO PRN 02/16/2016 No Stop Date Active not more than 1 tab in 24 hours morphine ER 10 mg ca psule,extended release pellets RxNorm: 053706 1 Tablet(s) PO Q6 as needed 02/16/2016 11/16/2016 Inactive clonazepam 1 mg tablet RxNorm: 157053 1/2 Tablet(s) PO BID 02/16/2016 09/15/2016 Inactive trazodone 50 mg tablet RxNorm: 147572 1/2 Tablet(s) as needed 1 Tablet(s) PO Q HS 02/16/2016 08/18/2016 In active trazodone 50 mg tablet RxNorm: 877159 1/2 Tablet(s) 1 Tablet(s) PO QHS 11/17/2015 02/15/2016 In active trazodone 50 mg tablet RxNorm: 358629 1 Tablet(s) PO QHS 10/19/2015 11/16/2015 Inactive levothyroxine 200 mc g tablet RxNorm: 821316 1 Tablet(s) PO daily 10/02/2015 08/10/2016 Inactive Wellbutrin XL 150 mg 24 hr tablet, extended release RxNorm: 380779 1 Tablet(s) PO daily 10/02/2015 05/11/2016 Inactive levothyroxine 200 mc g tablet RxNorm: 058772 1 Tablet(s) PO daily 09/30/2015 10/01/2015 Inactive Wellbutrin XL 150 mg 24 hr tablet, extended release RxNorm: 606532 1 Tablet(s) PO daily 09/30/2015 10/01/2015 Inactive trazodone 50 mg tablet RxNorm: 456714 1 Tablet(s) PO QHS 09/11/2015 10/10/2015 Inactive trazodone 50 mg tablet RxNorm: 498182 1 Tablet(s) PO QHS 09/11/2015 09/10/2015 Inactive Cymbalta 30 mg capsu le,delayed release RxNorm: 150124 1 Capsule(s) PO daily 09/07/2015 11/16/2015 In active Cymbalta 60 mg capsu le,delayed release RxNorm: 164109 1 Capsule(s) PO daily 08/31/2015 08/30/2015 In active Cymbalta 30 mg capsu le,delayed release RxNorm: 953398 1 Capsule(s) PO daily take with 60mg to make 90 mg daily 08/31/2015 09/06/2015 Inactive Cymbalta 30 mg capsu le,delayed release RxNorm: 166968 1 Capsule(s) PO daily take with 60mg to make 90 mg daily 08/31/2015 08/30/2015 Inactive Cymbalta 60 mg capsu le,delayed release RxNorm: 818504 1 Capsule(s) PO daily x 7 days and then increase to 90mg daily 08/31/2015 09/07/2015 Inactive levothyroxine 200 mc g tablet RxNorm: 054241 1 Tablet(s) PO daily 08/14/2015 09/29/2015 Inactive Wellbutrin XL 150 mg 24 hr tablet, extended release RxNorm: 583113 1 Tablet(s) PO daily 07/14/2015 09/29/2015 Inactive Cialis 20 mg tablet RxNorm: 949229 1 Tablet(s) PO PRN 07/02/2015 02/15/2016 Inactive not more than 1 tab in 24 hours liothyronine 5 mcg t ablet RxNorm: 692597 1 Tablet(s) PO daily 2015 05/29/2016 Inactive clonazepam 1 mg tablet RxNorm: 733845 1 Tablet(s) PO TID 2015 02/15/2016 Inactive minocycline 50 mg ta blet RxNorm: 118127 1 Tablet(s) PO daily 2015 05/11/2016 Inactive Wellbutrin XL 150 mg 24 hr tablet, extended release RxNorm: 927173 1 Tablet(s) PO daily 04/23/2015 07/13/2015 Inactive levothyroxine 200 mc g tablet RxNorm: 345466 1 Tablet(s) PO daily 04/23/2015 08/13/2015 Inactive Aleve oral RxNorm: 871568 oral No Start Date Active Tylenol 500 mg RxNorm: oral No Start Date Active morphine ER 15 mg ta blet,extended release RxNorm: 242255 oral No Start Date 11/16/2016 Inactive Trazadone 25 mg RxNorm: 2 PO daily No Start Date 09/11/2015 Inactive diclofenac oral RxNorm: 3355 oral No Start Date 05/04/2018 Inactive clonazepam 1 mg tablet RxNorm: 370313 1 Tablet(s) PO QHS No Start Date 06/04/2015 Inactive Wellbutrin XL 150 mg 24 hr tablet, extended release RxNorm: 296108 1 Tablet(s) PO daily No Start Date 04/22/2015 Inactive minocycline 50 mg ta blet RxNorm: 616651 1 Tablet(s) PO daily No Start Date 06/04/2015 Inactive methadone 5 mg tablet RxNorm: 295368 1 Tablet(s) PO Q8 No Start Date 02/15/2016 Inactive Protonix 40 mg table t,delayed release RxNorm: 993508 Tablet(s) PO daily No Start Date 06/16/2016 Inactive Opana ER 15 mg table t, crush resistant, extended release RxNorm: 401179 1 Tablet(s) PO Q12H No Start Date 06/08/2017 Inactive MS Contin 30 mg tabl et,extended release RxNorm: 043619 1 Tablet(s) PO Q12H No Start Date 02/15/2016 Inactive Opana ER 15 mg table t, crush resistant, extended release RxNorm: 284443 1 Tablet(s) PO BID No Start Date 09/15/2016 Inactive liothyronine 5 mcg t ablet RxNorm: 988581 1 Tablet(s) PO daily No Start Date 06/04/2015 Inactive Cialis 20 mg tablet RxNorm: 868635 1 Tablet(s) PO PRN No Start Date 07/01/2015 Inactive not more than 1 tab in 24 hours baclofen 10 mg tablet RxNorm: 007752 1 Tablet(s) PO TID as needed No Start Date 05/11/2016 Inactive morphine 15 mg immed iate release tablet RxNorm: 806815 1 Tablet(s) PO Q6 PRN as needed No Start Date 02/15/2016 Inactive levothyroxine 200 mc g tablet RxNorm: 008766 1 Tablet(s) PO daily No Start Date 04/22/2015 Inactive Opana ER 5 mg tablet , crush resistant, extended release RxNorm: 540536 1 Tablet(s) PO Q6 No Start Date 06/08/2017 Inactive Medication Administered No Medication Administered data Immunizations No Immunization data Assessments Condition Codes Effectiv e Dates Encounter for general adult medical exam ination with abnormal findings ICD-10: Z00.01 ICD-9: V70.0 09/17/2018 Chronic pain syndrome ICD-10: G89.4 ICD-9: 338.4 09/03/2018 Other male erectile dysfunction ICD- 10: N52.8 ICD-9: 607.84 07/05/2018 Other fatigue ICD-10: R53.83 ICD-9: 780.79 07/05/2018 Hypothyroidism, unspecified ICD-10: E03.9 ICD-9: 244.9 07/05/2018 Major depressive disorder, recurrent, moderate ICD-10: F33.1 ICD-9: 296.32 07/05/2018 Encounter for screening for malignant neoplasm of pros sam[place]go ICD-10: Z12.5 ICD-9: V76.44 07/05/2018 Diarrhea, unspecified ICD-10: R19.7 ICD-9: 787.91 03/28/2018 Pain in unspecified joint ICD-10: M2 5.50 ICD-9: 719.40 03/28/2018 Melena ICD-10: K92.1 ICD-9: 578.1 03/28/2018 Other malaise ICD-10: R53.81 ICD-9: 780.79 03/28/2018 Other obesity due to excess calories ICD-10: E66.09 ICD-9: 278.00 02/27/2018 Obstructive sleep apnea (adult) (pediatric) ICD-10: G47.33 ICD-9: 327.23 02/27/2018 Anemia, unspecified ICD-10: D64.9 ICD-9: 285.9 01/04/2018 [...] Visit Reason For Visit Effective Dates Notes Annual Medicare Wellness Exam 09/17/2018 fatigue 09/03/2018 [...] Observation Code Item Item Code Result Date Vitamin D 25 Oh [id number] VITAMIN D, 25 HYDROXY 30.96 ng/mL 07/06/2018 Comp Metabolic Nrm134 NA 141 mEq/L 07/06/2018 Comp Metabolic Tff753 K 4.2 mEq/L 07/06/2018 Comp Metabolic Auq071 CL 103 mEq/L 07/06/2018 Comp Metabolic Nxx783 CO2 29.0 mEq/L 07/06/2018 Comp Metabolic Kfw706 AN ION GAP 13 07/06/2018 Comp Metabolic Rnh613 GL UCOSE 105 mg/dL 07/06/2018 Comp Metabolic Khi146 Cr eat 0.8 mg/dL 07/06/2018 Comp Metabolic Vdk987 eG FR 101 ml/min/1.73m2 06/27 Comp Metabolic Vtz848 BUN 7 mg/dL 07/06/2018 Comp Metabolic Frr060 B/ C Ratio 8.3 Ratio 07/06/2018 Comp Metabolic Yyc222 CA LCIUM 9.9 mg/dL 07/06/2018 Comp Metabolic Rjc160 AL K PHOS 65 U/L 07/06/2018 Comp Metabolic Zwi434 T(SGOT) 21 U/L 07/06/2018 Comp Metabolic Ltl767 AL T(SGPT) 31 U/L 07/06/2018 Comp Metabolic Qiq577 BI LI T 0.3 mg/dL 07/06/2018 Comp Metabolic Xfx081 AL BUMIN 4.3 g/dL 07/06/2018 Comp Metabolic Nbt319 TP RO 6.4 g/dL 07/06/2018 Comp Metabolic Mxe604 GL OB 2.1 g/dL 07/06/2018 Comp Metabolic Acx530 A/ G Ratio 2.0 Ratio 07/06/2018 Comp Metabolic Sha066 Os mo 280 mOsmo 07/06/2018 Cbc With [...] 39.5 % 07/06/2018 Cbc With Differential Ord2 [place]% 10.5 % 07/06/2018 Cbc With Differential Ord2 MCH 29.3 pg 07/06/2018 Cbc With Differential Ord2 MCHC 32.5 pg 07/06/2018 Cbc With Differential Ord2 Eos% 5.2 % 07/06/2018 Cbc With Differential Ord2 Baso% 0.4 % 07/06/2018 Cbc With Differential Ord2 PLT 283 K/ul 07/06/2018 Cbc With Differential Ord2 RDW 14.0 % 07/06/2018 Cbc With Differential Ord2 Neut ABS# 2.12 K/ul 07/06/2018 Cbc With Differential Ord2 Lymph ABS# 1.89 K/ul 07/06/2018 Cbc With Differential Ord2 [place] ABS# 0.5 K/ul 07/06/2018 Cbc With Differential Ord2 Eos ABS# 0.3 K/ul 07/06/2018 Cbc With Differential Ord2 Baso ABS# 0.0 K/ul 07/06/2018 Total Psa Ord10 PSA 0.34 ng/mL 07/06/2018 Tsh Ord6 TSH (3rd IS) 0.02 uIU/mL 07/06/2018 Testosterone Uvo231 Testo 400.6 ng/dL 07/06/2018 Free T4 [id number] FREE T4 1.48 ng/dL 07/06/2018 Partha Mtn Spot'D Fev Igg [id number] RMSF, IGG- TITER IFA <1:64 04/04/2018 [place] Spotted Fever Igg/Igm 81980 3 [place] SPOTTED FEVER IGM EIA . 04/04/2018 [place] Spotted Fever Igg/Igm 34192 3 RMSF, IGM 0.24 index 04/04/2018 [place] Spotted Fever Igg/Igm 48408 3 [facility] SPOTTED FEVER IGG EIA FLEX . 04/04/2018 [place] Spotted Fever Igg/Igm 00424 3 RMSF, IGG SCREEN-FLEX Equivocal 04/04/2018 Ehrlichia Chaffeensis Antibody Igg [id number] EHRLICHIA CHAFFEENSIS IGG <1:64 04/02/2018 Ehrlichia Chaffeensis Antibody Igm [id number] EHRLICHIA CHAFFEENSIS IGM < 1:16 04/02/2018 [place] Disease Total Antibodies With Western Blot Refle x [id number] B. BURGDORFERI, IGG/IGM 0.23 03/30/2018 [place] Disease Total Antibodies With Western Blot Refle x [id number] 03/30/2018 Cbc With Differential Ord2 WBC 5.04 K/ul 03/28/2018 Cbc With Differential Ord2 RBC 5.06 M/ul 03/28/2018 Cbc With Differential Ord2 HGB 14.5 g/dl 03/28/2018 Cbc With Differential Ord2 HCT 43.0 % 03/28/2018 Cbc With Differential Ord2 Neut% 54.7 % 03/28/2018 Cbc With Differential Ord2 Lymph% 27.2 % 03/28/2018 Cbc With Differential Ord2 MCV 85.0 fl 03/28/2018 Cbc With Differential Ord2 MCH 28.7 pg 03/28/2018 Cbc With Differential Ord2 [place]% 16.1 % 03/28/2018 Cbc With Differential Ord2 MCHC 33.7 pg 03/28/2018 Cbc With Differential Ord2 Eos% 2.0 % 03/28/2018 Cbc With Differential Ord2 PLT 174 K/ul 03/28/2018 Cbc With Differential Ord2 Baso% 0.0 % 03/28/2018 Cbc With Differential Ord2 Neut ABS# 2.76 K/ul 03/28/2018 Cbc With Differential Ord2 RDW 16.9 % 03/28/2018 Cbc With Differential Ord2 Lymph ABS# 1.37 K/ul 03/28/2018 Cbc With Differential Ord2 [place] ABS# 0.8 K/ul 03/28/2018 Cbc With Differential Ord2 Eos ABS# 0.1 K/ul 03/28/2018 Cbc With Differential Ord2 Baso ABS# 0.0 K/ul 03/28/2018 Comp Metabolic Mag928 NA 136 mEq/L 02/16/2018 Comp Metabolic Gxo107 K 3.9 mEq/L 02/16/2018 Comp Metabolic Wsl129 CL 103 mEq/L 02/16/2018 Comp Metabolic Lym468 CO2 23.0 mEq/L 02/16/2018 Comp Metabolic Muj475 AN ION GAP 14 02/16/2018 Comp Metabolic Eir028 GL UCOSE 133 mg/dL 02/16/2018 Comp Metabolic Fab909 Cr eat 0.8 mg/dL 02/16/2018 Comp Metabolic Epa738 eG FR 103 ml/min/1.73m2 01/26 Comp Metabolic Unp156 BUN 7 mg/dL 02/16/2018 Comp Metabolic Scj121 B/ C Ratio 8.4 Ratio 02/16/2018 Comp Metabolic Xfl804 CA LCIUM 9.3 mg/dL 02/16/2018 Comp Metabolic Qnc350 AL K PHOS 71 U/L 02/16/2018 Comp Metabolic Yaq739 T(SGOT) 42 U/L 02/16/2018 Comp Metabolic Kjl987 AL T(SGPT) 69 U/L 02/16/2018 Comp Metabolic Dmg525 BI LI T 0.3 mg/dL 02/16/2018 Comp Metabolic Zij003 AL BUMIN 4.1 g/dL 02/16/2018 Comp Metabolic Rrh930 TP RO 6.3 g/dL 02/16/2018 Comp Metabolic Ble938 GL OB 2.2 g/dL 02/16/2018 Comp Metabolic Cdm175 A/ G Ratio 1.8 Ratio 02/16/2018 Comp Metabolic Iwn699 Os mo 272 mOsmo 02/16/2018 Free T4 Zlo503 FREE T4 1.85 ng/dL 02/16/2018 Ferritin Ord22 FERRITIN 161.7 ng/mL 02/16/2018 Tsh Ord6 TSH (3rd IS) 0.01 uIU/mL 02/16/2018 Test(s) Not Perfromed [id number] Test(s) Not Performed Test(s) Not Performed. See Below: 02/16/2018 Test(s) Not Perfromed [id number] TEST NAME CBC 02/16/2018 Test(s) Not Perfromed [id number] Rejection Reason No Suitable Specimen Receive d 02/16/2018 Test(s) Not Perfromed [id number] COMMENT Please Recollect Sample 02/16/2018 Test(s) Not Perfromed [id number] Air Director Fernando Goyal 02/16/2018 Tibc Ord40 Iron 138 ug/dl 02/16/2018 Tibc Ord40 UIBC 223 ug/dL 02/16/2018 Tibc Ord40 TIBC 361 ug/dL 02/16/2018 Tibc Ord40 Fe-%Sat 38.2 % 02/16/2018 Cbc With Differential Ord2 WBC 5.03 K/ul 01/05/2018 Cbc With Differential Ord2 RBC 4.02 M/ul 01/05/2018 Cbc With Differential Ord2 HGB 10.6 g/dl 01/05/2018 Cbc With Differential Ord2 Neut% 42.5 % 01/05/2018 Cbc With Differential Ord2 HCT 32.9 % 01/05/2018 Cbc With Differential Ord2 MCV 81.8 fl 01/05/2018 Cbc With Differential Ord2 Lymph% 41.4 % 01/05/2018 Cbc With Differential Ord2 MCH 26.4 pg 01/05/2018 Cbc With Differential Ord2 [place]% 11.9 % 01/05/2018 Cbc With Differential Ord2 [...] 2.08 K/ul 01/05/2018 Cbc With Differential Ord2 [place] ABS# 0.6 K/ul 01/05/2018 Cbc With Differential Ord2 Eos ABS# 0.2 K/ul 01/05/2018 Cbc With Differential Ord2 Baso ABS# 0.0 K/ul 01/05/2018 Ferritin Ord22 FERRITIN 5.7 ng/mL 12/06/2017 Tibc Ord40 Iron 33 ug/dl 12/06/2017 Tibc Ord40 UIBC 431 ug/dL 12/06/2017 Tibc Ord40 TIBC 464 ug/dL 12/06/2017 Tibc Ord40 Fe-%Sat 7.1 % 12/06/2017 Free T4 Xgh718 FREE T4 1.82 ng/dL 12/01/2017 Tsh Ord6 hTSH II 0.07 uIU/mL 12/01/2017 Cbc With Differential Ord2 WBC 4.15 K/ul 12/01/2017 Cbc With Differential Ord2 RBC 4.00 M/ul 12/01/2017 Cbc With Differential Ord2 HGB 10.8 g/dl 12/01/2017 Cbc With Differential Ord2 Neut% 38.0 % 12/01/2017 Cbc With Differential Ord2 HCT 33.3 % 12/01/2017 Cbc With Differential Ord2 MCV 83.3 fl 12/01/2017 Cbc With Differential Ord2 Lymph% 46.3 % 12/01/2017 Cbc With Differential Ord2 MCH 27.0 pg 12/01/2017 Cbc With Differential Ord2 [place]% 10.6 % 12/01/2017 Cbc With Differential Ord2 [...] 1.92 K/ul 12/01/2017 Cbc With Differential Ord2 [place] ABS# 0.4 K/ul 12/01/2017 Cbc With Differential Ord2 Eos ABS# 0.2 K/ul 12/01/2017 Cbc With Differential Ord2 Baso ABS# 0.0 K/ul 12/01/2017 Comp Metabolic Rob652 NA 136 mEq/L 12/01/2017 Comp Metabolic Qfe552 K 4.6 mEq/L 12/01/2017 Comp Metabolic Rqa899 CL 102 mEq/L 12/01/2017 Comp Metabolic Unk877 CO2 27.0 mEq/L 12/01/2017 Comp Metabolic Tow349 AN ION GAP 12 12/01/2017 Comp Metabolic Lwr469 GL UCOSE 90 mg/dL 12/01/2017 Comp Metabolic Nbh128 Cr eat 0.7 mg/dL 12/01/2017 Comp Metabolic Dvq338 eG FR 123 ml/min/1.73m2 03/2018 Comp Metabolic Onc002 BUN 4 mg/dL 12/01/2017 Comp Metabolic Bax176 B/ C Ratio 5.6 Ratio 12/01/2017 Comp Metabolic Ksv500 CA LCIUM 9.0 mg/dL 12/01/2017 Comp Metabolic Ngg161 AL K PHOS 67 U/L 12/01/2017 Comp Metabolic Ofp229 T(SGOT) 30 U/L 12/01/2017 Comp Metabolic Fxk127 AL T(SGPT) 29 U/L 12/01/2017 Comp Metabolic Xmg352 BI LI T 0.3 mg/dL 12/01/2017 Comp Metabolic Ymr269 AL BUMIN 4.1 g/dL 12/01/2017 Comp Metabolic Vsz383 TP RO 6.1 g/dL 12/01/2017 Comp Metabolic Nkq519 GL OB 2.0 g/dL 12/01/2017 Comp Metabolic Xlj438 A/ G Ratio 2.0 Ratio 12/01/2017 Comp Metabolic Mqx805 Os mo 268 mOsmo 12/01/2017 Comp Metabolic Anp703 NA 136 mEq/L 02/16/2016 Comp Metabolic Gzp162 K 4.2 mEq/L 02/16/2016 Comp Metabolic Tuq045 CL 104 mEq/L 02/16/2016 Comp Metabolic Kdp136 CO2 20.0 mEq/L 02/16/2016 Comp Metabolic Ppx641 AN ION GAP 16 02/16/2016 Comp Metabolic Hmv160 GL UCOSE 71 mg/dL 02/16/2016 Comp Metabolic Nne104 Cr eat 0.8 mg/dL 02/16/2016 Comp Metabolic Qjt679 eG FR 113 ml/min/1.73m2 01/26 Comp Metabolic Cze381 BUN 7 mg/dL 02/16/2016 Comp Metabolic Vln685 B/ C Ratio 9.1 Ratio 02/16/2016 Comp Metabolic Ekb861 CA LCIUM 9.4 mg/dL 02/16/2016 Comp Metabolic Ncc529 AL K PHOS 57 U/L 02/16/2016 Comp Metabolic Pnr158 T(SGOT) 30 U/L 02/16/2016 Comp Metabolic Elz751 AL T(SGPT) 27 U/L 02/16/2016 Comp Metabolic Gzq469 BI LI T 0.2 mg/dL 02/16/2016 Comp Metabolic Nkk639 AL BUMIN 4.4 g/dL 02/16/2016 Comp Metabolic Nlr017 TP RO 6.5 g/dL 02/16/2016 Comp Metabolic Tlx612 GL OB 2.1 g/dL 02/16/2016 Comp Metabolic Amp253 A/ G Ratio 2.1 Ratio 02/16/2016 Comp Metabolic Szm326 Os mo 268 mOsmo 02/16/2016 Free T4 Xrv258 FREE T4 1.20 ng/dL 02/16/2016 Cbc With Differential Ord2 WBC 5.32 K/ul 02/16/2016 Cbc With Differential Ord2 RBC 4.24 M/ul 02/16/2016 Cbc With Differential Ord2 HGB 12.8 g/dl 02/16/2016 Cbc With Differential Ord2 Neut% 60.1 % 02/16/2016 Cbc With Differential Ord2 HCT 38.4 % 02/16/2016 Cbc With Differential Ord2 Lymph% 28.2 % 02/16/2016 Cbc With Differential Ord2 MCV 90.6 fl 02/16/2016 Cbc With Differential Ord2 [place]% 9.6 % 02/16/2016 Cbc With Differential Ord2 MCH 30.2 pg 02/16/2016 Cbc With Differential Ord2 MCHC 33.3 pg 02/16/2016 Cbc With Differential Ord2 Eos% 1.7 % 02/16/2016 Cbc With Differential Ord2 Baso% 0.4 % 02/16/2016 Cbc With Differential Ord2 PLT 377 K/ul 02/16/2016 Cbc With Differential Ord2 RDW 12.8 % 02/16/2016 Cbc With Differential Ord2 Neut ABS# 3.20 K/ul 02/16/2016 Cbc With Differential Ord2 Lymph ABS# 1.50 K/ul 02/16/2016 Cbc With Differential Ord2 [place] ABS# 0.5 K/ul 02/16/2016 Cbc With Differential [...] Result Effective Dates Constitutional No recent illness 09/17/2018 Constitutional No [...] Respiratory dyspnea on exertion 05/04/2018 Respiratory snoring 06/06/2018 Gastrointestinal No constipation 05/04/2018 Gastrointestinal No diarrhea [...] age 0504/23/2016 None Procedures Procedure Codes Date PPPS, SUBSEQ VISIT CPT- 4: G0439 09/17/2018 Vital Signs Date Vital 09/17/2018 Blood Pressure 1: 110/72 Code: 8480-6 BMI: 38.3 Code: 30510-6 Heart Rate 1: 77 bpm Height: 5'6" SpO2: 95% Waist Measure (cm): 102 cm Weight: 237 lbs 09/03/2018 Blood Pressure 1: 122/68 Code: 8480-6 BMI: 37.6 Code: 87079-4 Heart Rate 1: 78 bpm Height: 5'6" SpO2: 97% Weight: 233 lbs 07/05/2018 Blood Pressure 1: 94/62 Code: 8480-6 BMI: 36.8 Code: 73217-5 Heart Rate 1: 88 bpm Height: 5'6" SpO2: 99% Weight: 228 lbs 05/04/2018 Blood Pressure 1: 110/80 Code: 8480-6 BMI: 35.5 Code: 88691-2 Heart Rate 1: 80 bpm Height: 5'6" SpO2: 99% Weight: 220 lbs 03/28/2018 Blood Pressure 1: 110/72 Code: 8480-6 BMI: 35.0 Code: 49015-9 Heart Rate 1: 80 bpm Height: 5'6" SpO2: 98% Temperature: 36.2 (C ) / 97.1 (F) Weight: 217 lbs 02/27/2018 Blood Pressure 1: 136/76 Code: 8480-6 BMI: 36.0 Code: 44237-2 Heart Rate 1: 80 bpm Height: 5'6" SpO2: 98% Weight: 223 lbs 12/01/2017 Blood Pressure 1: 132/72 Code: 8480-6 BMI: 33.4 Code: 29840-4 Heart Rate 1: 82 bpm Height: 5'6" SpO2: 97% Weight: 207 lbs 09/29/2017 Blood Pressure 1: 124/68 Code: 8480-6 BMI: 32.1 Code: 08560-0 Heart Rate 1: 77 bpm Height: 5'6" SpO2: 98% Weight: 199 lbs 08/11/2017 Blood Pressure 1: 154/82 Code: 8480-6 BMI: 31.6 Code: 65297-8 Heart Rate 1: 75 bpm Height: 5'6" SpO2: 98% Weight: 196 lbs 06/09/2017 Blood Pressure 1: 148/88 Code: 8480-6 BMI: 28.6 Code: 54458-4 Heart Rate 1: 88 bpm Height: 5'6" SpO2: 98% Weight: 177 lbs 04/07/2017 Blood Pressure 1: 140/84 Code: 8480-6 BMI: 30.3 Code: 18200-4 Heart Rate 1: 81 bpm Height: 5'6" SpO2: 99% Weight: 188 lbs 11/17/2016 Blood Pressure 1: 130/72 Code: 8480-6 Heart Rate 1: 63 bpm Height: SpO2: 93% Weight: 11/10/2016 Blood Pressure 1: 128/86 Code: 8480-6 BMI: 30.3 Code: 89371-3 Heart Rate 1: 84 bpm Height: 5'6" SpO2: 96% Weight: 188 lbs 10/14/2016 Heigh t: 5'6" 09/16/2016 Blood Pressure 1: 130/80 Code: 8480-6 BMI: 30.3 Code: 93965-8 Heart Rate 1: 67 bpm Height: 5'6" SpO2: 99% Weight: 188 lbs 08/19/2016 Blood Pressure 1: 110/62 Code: 8480-6 BMI: 29.9 Code: 41376-4 Heart Rate 1: 70 bpm Height: 5'6" SpO2: 97% Weight: 185 lbs 06/17/2016 Blood Pressure 1: 112/68 Code: 8480-6 BMI: 27.6 Code: 65723-2 Heart Rate 1: 61 bpm Height: 5'6" SpO2: 98% Weight: 171 lbs 05/12/2016 Blood Pressure 1: 130/76 Code: 8480-6 BMI: 29.7 Code: 21603-6 Heart Rate 1: 103 bpm Height: 5'6" SpO2: 98% Weight: 184 lbs 02/16/2016 Blood Pressure 1: 140/82 Code: 8480-6 BMI: 28.7 Code: 69247-0 Heart Rate 1: 66 bpm Height: 5'6" SpO2: 99% Weight: 178 lbs 11/17/2015 Blood Pressure 1: 120/74 Code: 8480-6 BMI: 29.4 Code: 24565-0 Heart Rate 1: 90 bpm Height: 5'6" SpO2: 94% Weight: 182 lbs 08/28/2015 Blood Pressure 1: 128/76 Code: 8480-6 BMI: 27.9 Code: 52528-3 Heart Rate 1: 80 bpm Height: 5'6" SpO2: 98% Weight: 173 lbs 05/28/2015 Blood Pressure 1: 122/70 Code: 8480-6 BMI: 27.0 Code: 14246-0 Heart Rate 1: 74 bpm Height: 5'6" SpO2: 98% Weight: 167 lbs 04/23/2015 Blood Pressure 1: 110/60 Code: 8480-6 BMI: 27.0 Code: 06520-5 Heart Rate 1: 68 bpm Height: 5'6" Weight: 167 lbs Functional Status No Functional Status data History of Present Illness Symptom Name Status Resu lt Effective Date Notes Annual Medicare Wellness Exam Alcohol Use does [...] and Resolution ongoing 09/03/2018 None hypothyroid Quality blocker and cutter contact lens fe 09/03/2018 None hypothyroid Onset and Resolution [...] fatigue Quality constant 07/05/2018 None hypothyroid Quality blocker and cutter contact lens fe 07/05/2018 None hypothyroid Onset and Resolution [...] Findings weight loss 03/28/2018 None hypothyroid Quality blocker and cutter contact lens fe 02/27/2018 None hypothyroid Onset and Resolution [...] Encounters Encounter Performer Loca tion Codes Date () 70215 EST. P ATIENT, LEVEL III Diagnosis: Chronic pain syndrome[ICD10: G89.4] Leydi Jacobo MD, [facility] CPT-4: 01610 09/03/2018 ([id number]) 48249 EST. P ATIENT, LEVEL IV Diagnosis: Hypothyroidism, unspecified[ICD10: E03.9] Diagnosis: Major depressive disorder, recurrent, moderate[ICD10: F33.1] Diagnosis: Chronic pain syndrome[ICD10: G89.4] Diagnosis: Other male erectile dysfunction[ICD10: N52.8] Diagnosis: Other fatigue[ICD10: R53.83] Diagnosis: Encounter for screening for malignant neoplasm of prostate[ICD10: Z12.5] Leydi Jacobo MD, [facility] CPT-4: 50852 07/05/2018 ([id number]) 21388 EST. P ATIENT, LEVEL IV Diagnosis: Chronic pain syndrome[ICD10: G89.4] Diagnosis: Hypothyroidism, unspecified[ICD10: E03.9] Diagnosis: Major depressive disorder, recurrent, moderate[ICD10: F33.1] Leydi Jacobo MD, [facility] CPT-4: 66855 05/04/2018 96742 EST. PATIENT, LEVEL IV Diagnosis: Melena[ICD10: K92.1] Diagnosis: Other malaise[ICD10: R53.81] Diagnosis: Other fatigue[ICD10: R53.83] Diagnosis: Pain in unspecified joint[ICD10: M25.50] Diagnosis: Diarrhea, unspecified[ICD10: R19.7] Denae Jacobo MD, [facility] CPT-4: 73889 03/28/2018 ([id number]) 55767 EST. P ATIENT, LEVEL IV Diagnosis: Chronic pain syndrome[ICD10: G89.4] Diagnosis: Hypothyroidism, unspecified[ICD10: E03.9] Diagnosis: Other obesity due to excess calories[ICD10: E66.09] Diagnosis: Major depressive disorder, recurrent, moderate[ICD10: F33.1] Diagnosis: Obstructive sleep apnea (adult) (pediatric)[ICD10: G47.33] Leydi Jacobo MD, [facility] CPT-4: 83676 02/27/2018 82612 EST. PATIENT, LEVEL IV Diagnosis: Other specified hypothyroidism[ICD10: E03.8] Diagnosis: Chronic pain syndrome[ICD10: G89.4] Diagnosis: Major depressive disorder, recurrent, moderate[ICD10: F33.1] Denae Jacobo MD, [facility] CPT-4: 49479 12/01/2017 ([id number]) 44248 EST. P ATIENT, LEVEL IV Diagnosis: Chronic pain syndrome[ICD10: G89.4] Diagnosis: Alcohol dependence, uncomplicated[ICD10: F10.20] Diagnosis: Major depressive disorder, recurrent, moderate[ICD10: F33.1] Leydi Jacobo MD, [facility] CPT-4: 15341 09/29/2017 ([id number]) 62517 EST. P ATIENT, LEVEL IV Diagnosis: Chronic pain syndrome[ICD10: G89.4] Diagnosis: Alcohol dependence, uncomplicated[ICD10: F10.20] Diagnosis: Major depressive disorder, recurrent, moderate[ICD10: F33.1] Leydi Jacobo MD, [facility] CPT-4: 98371 08/11/2017 ([id number]) 52347 EST. P ATIENT, LEVEL III Diagnosis: Chronic pain syndrome[ICD10: G89.4] Diagnosis: Major depressive disorder, recurrent, moderate[ICD10: F33.1] Leydi Jacobo MD, [facility] CPT-4: 12636 06/09/2017 ([id number]) 85302 EST. P ATIENT, LEVEL III Diagnosis: Chronic pain syndrome[ICD10: G89.4] Diagnosis: Pain in left knee[ICD10: M25.562] Leydi Jacobo MD, [facility] CPT- 4: 27633 04/07/2017 20490 EST. PATIENT, LEVEL II Diagnosis: Superficial foreign body of left upper arm, initial encounter[ICD10: S40.852A] Diagnosis: Cellulitis of left upper limb[ICD10: L03.114] Leydi Jacobo MD, [facility] CPT-4: 23837 11/17/2016 80993 EST. PATIENT, LEVEL II Diagnosis: Cellulitis of left upper limb[ICD10: L03.114] Leydi Jacobo MD, [facility] CPT-4: 20460 11/10/2016 ([id number]) 13005 EST. P ATIENT, LEVEL III Diagnosis: Chronic pain syndrome[ICD10: G89.4] Diagnosis: Major depressive disorder, recurrent, moderate[ICD10: F33.1] Leydi Jacobo MD, [facility] CPT-4: 35063 10/14/2016 96030 EST. PATIENT, LEVEL IV Diagnosis: Psychophysiologic insomnia[ICD10: F51.04] Diagnosis: Major depressive disorder, recurrent, moderate[ICD10: F33.1] Diagnosis: Alcohol dependence, uncomplicated[ICD10: F10.20] Diagnosis: Chronic pain syndrome[ICD10: G89.4] Leydi Jacobo MD, [facility] CPT-4: 28206 09/16/2016 ([id number]) 91679 EST. P ATIENT, LEVEL III Diagnosis: Pain in left shoulder[ICD10: M25.512] Diagnosis: Major depressive disorder, recurrent, moderate[ICD10: F33.1] Diagnosis: Psychophysiologic insomnia[ICD10: F51.04] Leydi Jacobo MD, [facility] CPT-4: 33051 08/19/2016 ([id number]) 32209 EST. P ATIENT, LEVEL III Diagnosis: Gastro-esophageal reflux disease without esophagitis[ICD10: K21.9] Diagnosis: Hypothyroidism, unspecified[ICD10: E03.9] Leydi Jacobo MD, [facility] CPT-4: 35366 06/17/2016 ([id number]) 10947 EST. P ATIENT, LEVEL IV Diagnosis: Gastro-esophageal reflux disease without esophagitis[ICD10: K21.9] Diagnosis: Hypothyroidism, unspecified[ICD10: E03.9] Diagnosis: Major depressive disorder, recurrent, moderate[ICD10: F33.1] Leydi Jacobo MD, [facility] CPT-4: 09386 05/12/2016 ([id number]) 00721 EST. P ATIENT, LEVEL III Diagnosis: Cervicalgia[ICD10: M54.2] Diagnosis: Hypothyroidism, unspecified[ICD10: E03.9] Diagnosis: Other male erectile dysfunction[ICD10: N52.8] Leydi Jacobo MD, [facility] CPT-4: 64140 02/16/2016 ([id number]) 80924 EST. P ATIENT, LEVEL III Diagnosis: Lumbago with sciatica, unspecified side[ICD10: M54.40] Diagnosis: Other male erectile dysfunction[ICD10: N52.8] Leydi Jacobo MD, [facility] CPT-4: 14503 11/17/2015 ([id number]) 27948 EST. P ATIENT, LEVEL III Diagnosis: Lumbago with sciatica, unspecified side[ICD10: M54.40] Diagnosis: Hypothyroidism, unspecified[ICD10: E03.9] Diagnosis: Other male erectile dysfunction[ICD10: N52.8] Leydi Jacobo MD, [facility] CPT-4: 12125 08/28/2015 ([id number]) 32347 EST. P ATIENT, LEVEL III Diagnosis: Back pain, chronic[ICD9: 724.5] Diagnosis: Depression[ICD9: 311] Diagnosis: Hypothyroid[ICD9: 244.9] Diagnosis: Bilateral calf pain[ICD9: 729.5] Julieta Jacobo MD, [facility] CPT-4: 72429 05/28/2015 ([id number]) [facility] - LEVEL 4 Diagnosis: Back pain, chronic[ICD9: 724.5] Diagnosis: Depression[ICD9: 311] Diagnosis: Hypothyroid[ICD9: 244.9] Julieta Jacobo MD, [facility] CPT-4: 64213 04/23/2015 Plan of Care Planned Activity Notes C odes Status Date Visit Plan: Medicare Exam - today w [...] DOPA paperwork for health care surrogate. 09/17/2018 Patient Education: Patient Medication Summary Completed 09/17/2018 Visit Plan: Chronic Pain Syndrome - pt has chronic pain - has been maintained on current medications, has not sought out other medications, only uses PRN pain medications as directed, and understands the consequences of over-medication. 09/03/2018 Appointment: Leydi Hightower WPtel: [address] [place], [place] [phone] (30 min) Complex 09/03/2018 Patient Education: Patient [...] exposure. No change in current medications. Fatigue-weight aaow-LI-wqeah labs including testosterone level 07/05/2018 Visit Plan: [...] exposure. No change in current medications. Fatigue-weight svtg-TE-hcmjv labs including testosterone level 07/05/2018 Appointment[facility] [phone] [phone] (15 min) Moderate 07/05/2018 Patient Education: Patient [...] BID 05/04/2018 Appointment: [facility]el[facility] [phone] [phone] [place] (15 min) Moderate 05/04/2018 Patient Education: [...] stomach pain. 03/28/2018 Appointment: Denae Martínez [facility]el[facility] [phone] [facility] (30 min) Complex 03/28/2018 Appointment: [...] this time. 02/27/2018 Appointment: [facility]ightower [facility]Ptel[facility] [phone] [phone] [place] (15 min) Moderate 02/27/2018 Patient Education: Patient [...] control. 12/01/2017 Appointment: Denae Martínez WPtel: [phone] [phone] (30 min) Complex 12/01/2017 Patient Education: Patient [...] treatment 09/29/2017 Appointment: [facility]ower [facility]Ptel[facility] [phone] [phone] (30 min) Complex 09/29/2017 Patient [...] cons ider 08/11/2017 Appointment: Leydi Hightower WPtel: [phone] (30 min) Complex 08/11/2017 Patient [...] change in current medications. 06/09/2017 Appointment: Leydi iHghtower WPtel: [phone] (30 min) Complex [...] completely resolve 11/17/2016 Appointment: Leydi Hightower WPtel: [phone] (30 min) Complex [...] in pain. 11/10/2016 Appointment: Leydi Hightower WPtel: [facility] [phone] (30 min) Complex 11/10/2016 Patient Education: [...] of plan. 10/14/2016 Appointment: Leydi Hightower WPtel: [phone] (30 min) Complex [...] will try 09/16/2016 Appointment: Leydi Hightower WPtel: [phone] (30 min) Complex 09/16/2016 Patient Education: Patient Medication Summary Completed 09/16/2016 Visit Plan: Left shoulder and elbow pain-xray shoulder and elbow Atknzrfkwl-jyabqcoo-bnsjfuqshvcj-d/c trazodone-start remeron at bedtime Pt has been [...] this patient. 08/19/2016 Appointment: Leydi Hightower WPtel: [phone] [place] [address] (30 min) Complex 08/19/2016 Patient Education: Patient [...] Obesity Completed 06/17/2016 Appointment: Leydi Hightower WPtel: [address] [place], [place] [phone] [place] [address] (30 min) Complex 06/09/2016 Visit Plan: Esophageal [...] of control. 05/12/2016 Appointment: Leydi Hightower WPtel: [phone] (30 min) Complex 05/12/2016 Patient [...] in office. 05/28/2015 Appointment: Leydi Hightower WPtel: [phone] (30 min) Complex 05/28/2015 Patient [...] Care Plan: COMPLETE CBC AUTOMATED LOINC : 87123-1 Ordered 04/23/2015 Instructions Comment . Medicare Exam - to day we [...] for health care surrogate. . Chronic Pain Janetr ome - pt has chronic pain - [...] states he will try . Chronic Pain Janetr ome - pt has chronic pain - [...] to psychologist-patient will consider . Chronic Pain Janetr ome - pt has chronic pain - [...] of brace is covered. . Chronic Pain Janetr ome - pt has chronic pain - [...] and elbow pain-xray shou lder and elbow Yytqhpdxeg-fyrfcrkj-pkulqyqcdssi-d/c trazodone-start remeron at bedtime Pt has been [...] exposure. No change in current medications. Fatigue-weight wthj-IN-nsrtz labs including testosterone level . Chronic Pain [...] exposure. No change in current medications. Fatigue-weight hyrn-IH-fatmj labs including testosterone level . Chronic Pain [...] months based on previous levels of control. 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 Chronic Pain Syndrome [...]
--- OUTSIDE RECORDS SUMMARY | 2020-03-17 14:59 | XMS REPORT | CCD ---
Author Author Thai Castillo Organization Sara Jacobo MD, [facility] Address [address] [place] [address] Phone Care Team Providers Care Cook 3 Pastry Name Role Phone PP Unavailable CCM Unavailable Summary Purpose Interface Exchange Insurance Providers Payer name Policy type / Coverage type Covered constitution party ID Effective Begin Date Effective End Date WPS Medicare Part B Medicare Part B [id number] Unknown 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 On Disability Unknown Yes 09/27/2018 Marital status Unknown D ivorced 04/23/[address]: 559232727 Never smoker 04/23/[address]: 338305 Currently drinks alcohol occasionally drinks 04/23/2015 Allergies, [...] ICD-9: V77.91 ICD-10: Z13.220 Active 01/07/2019 Unknown Hypothyroidism, unsp ecified ICD-9: 244.9 ICD-10: [...] disorders ICD-9: V77.91 ICD-10: Z13.220 01/07/2019 Active Hypothyroidism, unsp ecified ICD-9: 244.9 ICD-10: [...] Date Stop Date Sta tus Fill Instructions tizanidine 4 mg tablet RxNorm: 578218 TAKE ONE TABLET BY MOUTH THREE TIMES A D AY NEEDED 02/26/2019 05/26/2019 Active diclofenac sodium 75 mg tablet,delayed release RxNorm: 186449 TAKE ONE TABLET BY [facility] TWICE A DAY 02/18/2019 05/18/2019 Active Protonix 40 mg table t,delayed release RxNorm: 053859 TAKE ONE TABLET BY [facility] DAILY 02/06/2019 09/03/2019 Ac tive trazodone 50 mg tablet RxNorm: 403542 TAKE ONE TABLET BY MOUTH EVERY NIGHT AT BEDTIME AND ONE-HALF TABLET BY MOUTH NEEDED 01/14/2019 03/14/2019 Active oxymorphone 5 mg tablet RxNorm: 524875 1 Tablet(s) PO Q6 PRN 01/07/2019 03/07/2019 Active morphine 30 mg table t, crush resistant, extended release RxNorm: 0876787 1 Tablet(s) PO BID 01/07/2019 03/07/2019 Active doxycycline hyclate 100 mg tablet RxNorm: 2829393 1 Tablet(s) PO BID 01/01/2019 01/10/2019 Inactive cyanocobalamin (vit B-12) 1,000 mcg/mL injection solution RxNorm: 276546 1 Milliliter(s) Inj 12/27/2018 12/27/2018 Inactive baclofen 10 mg tablet RxNorm: 254126 TAKE ONE TABLET BY MOUTH THREE TIMES A D AY NEEDED 11/29/2018 03/28/2019 Active Request already responded to by other means (e.g. phone or fax) baclofen 10 mg tablet RxNorm: 473278 Tablet(s) TAKE ONE TABLET BY MOUTH THREE TIMES A DAY NEEDED 11/28/2018 11/28/2018 Inactive doxycycline hyclate 100 mg tablet RxNorm: 8737531 1 Tablet(s) PO BID 11/14/2018 11/23/2018 Inactive trazodone 50 mg tablet RxNorm: 895885 TAKE ONE TABLET BY MOUTH EVERY NIGHT AT BEDTIME AND ONE-HALF TABLET BY MOUTH NEEDED 11/12/2018 12/21/2018 Inactive tizanidine 4 mg tablet RxNorm: 704659 TAKE ONE TABLET BY MOUTH THREE TIMES A D AY NEEDED 10/22/2018 02/18/2019 Inactive diclofenac sodium 75 mg tablet,delayed release RxNorm: 198659 TAKE ONE TABLET BY [facility] TWICE A DAY 10/15/2018 02/11/2019 Inactive Lasix 20 mg tablet RxNorm: 337319 1 Tablet(s) PO daily as needed 10/10/2018 11/08/2018 In active potassium chloride E R 10 mEq tablet,extended release RxNorm: 219317 1 Tablet(s) PO daily as needed to take with lasix for inceased edema 10/10/2018 11/08/2018 Inactive potassium chloride E R 10 mEq tablet,extended release RxNorm: 139730 1 Tablet(s) PO daily as needed to take with lasix for inceased edema 10/10/2018 10/09/2018 Inactive Lasix 20 mg tablet RxNorm: 323909 1 Tablet(s) PO daily as needed 10/10/2018 10/09/2018 In active doxycycline hyclate 100 mg tablet RxNorm: 1916133 1 Tablet(s) PO BID 09/27/2018 10/10/2018 Inactive Remeron 15 mg tablet RxNorm: 047581 1.5 Tablet(s) PO QPM TAKE ONE TABLET BY MOUTH EVERY NIGHT AT BEDTIME 09/18/2018 12/16/2018 Inactive baclofen 10 mg tablet RxNorm: 316811 TAKE ONE TABLET BY MOUTH THREE TIMES A D AY NEEDED 09/12/2018 11/10/2018 Inactive Remeron 15 mg tablet RxNorm: 876904 1.5 Tablet(s) PO QPM TAKE ONE TABLET BY MOUTH EVERY NIGHT AT BEDTIME 09/03/2018 09/17/2018 Inactive oxymorphone 5 mg tablet RxNorm: 479913 1 Tablet(s) PO Q6 PRN 09/03/2018 11/01/2018 Inactive morphine 30 mg table t, crush resistant, extended release RxNorm: 1453504 1 Tablet(s) PO BID 09/03/2018 11/01/2018 Inactive trazodone 50 mg tablet RxNorm: 334250 TAKE ONE TABLET BY MOUTH EVERY NIGHT AT BEDTIME AND ONE-HALF TABLET BY MOUTH NEEDED 09/03/2018 10/12/2018 Inactive tizanidine 4 mg tablet RxNorm: 074527 TAKE ONE TABLET BY MOUTH THREE TIMES A D AY NEEDED 08/20/2018 10/18/2018 Inactive Protonix 40 mg table t,delayed release RxNorm: 568634 TAKE ONE TABLET BY [facility] DAILY 08/10/2018 02/05/2019 In active Carafate 1 gram tablet RxNorm: 752907 TAKE ONE TABLET BY MOUTH BEFORE MEALS AN D AT BEDTIME NEEDED FOR HEARTBURN 07/31/2018 12/27/2018 Inactive Protonix 40 mg table t,delayed release RxNorm: 677340 1 Tablet(s) BID 07/24/2018 07/23/2018 Inactive Protonix 40 mg table t,delayed release RxNorm: 219157 1 Tablet(s) daily 07/24/2018 08/09/2018 In active liothyronine 5 mcg t ablet RxNorm: 828511 TAKE ONE TABLET BY [facility] DAILY 07/19/2018 01/09/2019 In active baclofen 10 mg tablet RxNorm: 946349 TAKE ONE TABLET BY MOUTH THREE TIMES A D AY NEEDED 07/12/2018 09/09/2018 Inactive levothyroxine 175 mc g tablet RxNorm: 358690 1 Tablet(s) PO daily 07/11/2018 11/07/2018 Inactive Vitamin D2 50,000 un it capsule RxNorm: 0465142 1 Capsule(s) PO QW 07/11/2018 10/02/2018 Inactive trazodone 50 mg tablet RxNorm: 925360 TAKE ONE TABLET BY MOUTH EVERY NIGHT AT BEDTIME AND ONE-HALF TABLET BY MOUTH NEEDED 07/11/2018 08/19/2018 Inactive Vitamin D2 50,000 un it capsule RxNorm: 2272178 1 Capsule(s) PO QW 07/11/2018 07/10/2018 Inactive morphine 30 mg table t, crush resistant, extended release RxNorm: 7022375 1 Tablet(s) PO BID 07/05/2018 09/02/2018 Inactive oxymorphone 5 mg tablet RxNorm: 487378 1 Tablet(s) PO Q6 PRN 07/05/2018 09/02/2018 Inactive bupropion HCl XL 300 mg 24 hr tablet, extended release RxNorm: 587630 TAKE ONE TABLET BY MOUTH DAILY 06/27/2018 12/23/2018 Inactive Remeron 15 mg tablet RxNorm: 707520 TAKE ONE TABLET BY MOUTH EVERY NIGHT AT BEDTIME 06/27/2018 09/02/2018 Inactive tizanidine 4 mg tablet RxNorm: 367905 TAKE ONE TABLET BY MOUTH THREE TIMES A D AY NEEDED 06/20/2018 08/18/2018 Inactive doxycycline hyclate 100 mg tablet RxNorm: 5393754 1 Tablet(s) PO BID 06/18/2018 07/01/2018 Inactive Protonix 40 mg table t,delayed release RxNorm: 241900 TAKE ONE TABLET BY [facility] DAILY 06/11/2018 07/23/2018 In active doxycycline hyclate 100 mg tablet RxNorm: 7360334 1 Tablet(s) PO BID 05/22/2018 06/04/2018 Inactive baclofen 10 mg tablet RxNorm: 711265 TAKE ONE TABLET BY MOUTH THREE TIMES A D AY NEEDED 05/14/2018 07/11/2018 Inactive diclofenac sodium 75 mg tablet,delayed release RxNorm: 886677 TAKE ONE TABLET BY [facility] TWICE A DAY 05/07/2018 10/03/2018 Inactive oxymorphone 5 mg tablet RxNorm: 583910 1 Tablet(s) PO Q6 PRN 05/04/2018 07/02/2018 Inactive morphine 30 mg table t, crush resistant, extended release RxNorm: 8993811 1 Tablet(s) PO BID 05/04/2018 07/02/2018 Inactive doxycycline hyclate 100 mg tablet RxNorm: 942491 1 Tablet(s) PO BID 04/24/2018 04/23/2018 Inactive doxycycline hyclate 100 mg tablet RxNorm: 9305573 1 Tablet(s) PO BID 04/24/2018 05/03/2018 Inactive baclofen 10 mg tablet RxNorm: 114697 TAKE ONE TABLET BY MOUTH THREE TIMES A D AY NEEDED 04/13/2018 05/12/2018 Inactive trazodone 50 mg tablet RxNorm: 230799 TAKE ONE TABLET BY MOUTH EVERY NIGHT AT BEDTIME AND ONE-HALF TABLET BY MOUTH NEEDED 04/09/2018 06/07/2018 Inactive Questran 4 gram powd er for susp in a packet RxNorm: 391453 1 packet PO BID 04/06/2018 06/04/2018 In active Questran 4 gram powd er for susp in a packet RxNorm: 434937 1 packet PO BID 04/06/2018 04/05/2018 In active Carafate 1 gram tablet RxNorm: 415142 1 Tablet(s) PO AC & HS as needed for hea rtburn 03/28/2018 04/26/2018 Inactive baclofen 10 mg tablet RxNorm: 386357 TAKE ONE TABLET BY MOUTH THREE TIMES A D AY NEEDED 03/16/2018 04/12/2018 Inactive Protonix 40 mg table t,delayed release RxNorm: 818278 TAKE ONE TABLET BY [facility] DAILY 03/16/2018 06/10/2018 In active oxymorphone 5 mg tablet RxNorm: 665075 1 Tablet(s) PO Q6 PRN 02/27/2018 04/27/2018 Inactive morphine 30 mg table t, crush resistant, extended release RxNorm: 8085352 1 Tablet(s) PO BID 02/27/2018 04/27/2018 Inactive Belviq XR 20 mg tabl et,extended release RxNorm: 9196070 1 Tablet(s) PO daily 02/27/2018 01/06/2019 In active levothyroxine 100 mc g tablet RxNorm: 630033 1 Tablet(s) PO daily 02/27/2018 07/10/2018 Inactive take with 88mcg to = 188mcg daily levothyroxine 88 mcg tablet RxNorm: 367856 1 Tablet(s) PO daily 02/27/2018 07/10/2018 Inactive take with 100mcg to = 188mcg daily morphine 30 mg table t, crush resistant, extended release RxNorm: 5438356 1 Tablet(s) PO BID 02/14/2018 02/26/2018 Inactive levothyroxine 200 mc g tablet RxNorm: 257144 Tablet(s) TAKE ONE TA BLET BY MOUTH DAILY 01/18/2018 02/26/2018 Inactive Updated script baclofen 10 mg tablet RxNorm: 082697 Tablet(s) TAKE ONE TABLET BY MOUTH THREE TIMES A DAY NEEDED 01/15/2018 02/13/2018 Inactive morphine 30 mg table t, crush resistant, extended release RxNorm: 8766643 1 Tablet(s) PO BID 01/15/2018 02/13/2018 Inactive tizanidine 4 mg tablet RxNorm: 447498 TAKE ONE TABLET BY MOUTH THREE TIMES A D AY NEEDED 01/02/2018 04/01/2018 Inactive Request already responded t o by other means (e.g. phone or fax) bupropion HCl XL 300 mg 24 hr tablet, extended release RxNorm: 209279 TAKE ONE TABLET BY MOUTH DAILY 12/29/2017 06/26/2018 Inactive Tamiflu 75 mg capsule RxNorm: 736603 1 Capsule(s) PO BID 12/27/2017 12/31/2017 Inactive Tamiflu 75 mg capsule RxNorm: 273378 1 Capsule(s) PO BID 12/27/2017 12/26/2017 Inactive tizanidine 4 mg tablet RxNorm: 146172 1 Tablet(s) PO TID as needed 12/25/2017 01/01/2018 Inactive levothyroxine 175 mc g tablet RxNorm: 908763 1 Tablet(s) PO daily 12/14/2017 12/13/2017 Inactive levothyroxine 175 mc g tablet RxNorm: 214939 1 Tablet(s) PO daily 12/14/2017 01/17/2018 Inactive baclofen 10 mg tablet RxNorm: 420294 Tablet(s) TAKE ONE TABLET BY MOUTH THREE TIMES A DAY NEEDED 12/13/2017 01/11/2018 Inactive baclofen 10 mg tablet RxNorm: 821542 TAKE ONE TABLET BY MOUTH THREE TIMES A D AY NEEDED 12/13/2017 12/12/2017 Inactive morphine 30 mg table t, crush resistant, extended release RxNorm: 2910981 1 Tablet(s) PO BID 12/12/2017 01/14/2018 Inactive clonazepam 1 mg tablet RxNorm: 755168 1/2 Tablet(s) PO daily 12/01/2017 08/27/2018 Inactive trazodone 50 mg tablet RxNorm: 469682 1/2 to 1 Tablet(s) QHS as needed 12/01/2017 03/30/2018 In active Opana ER 15 mg table t, crush resistant, extended release RxNorm: 774637 1 Tablet(s) PO Q12H 12/01/2017 02/13/2018 Inactive oxymorphone 5 mg tablet RxNorm: 160598 1 Tablet(s) PO Q6 PRN 12/01/2017 02/26/2018 Inactive Remeron 15 mg tablet RxNorm: 339850 Tablet(s) TAKE ONE TABLET BY MOUTH EVERY NIGHT AT BEDTIME 12/01/2017 02/28/2018 Inactive trazodone 50 mg tablet RxNorm: 488469 1/2 Tablet(s) as needed 1 Tablet(s) PO Q HS 12/01/2017 11/30/2017 In active clonazepam 1 mg tablet RxNorm: 953260 1/2 Tablet(s) PO daily 11/30/2017 11/30/2017 Inactive Remeron 15 mg tablet RxNorm: 627022 TAKE ONE TABLET BY MOUTH EVERY NIGHT AT BEDTIME 11/29/2017 11/30/2017 Inactive levothyroxine 200 mc g tablet RxNorm: 218060 TAKE ONE TABLET BY [facility] DAILY 11/15/2017 12/13/2017 In active baclofen 10 mg tablet RxNorm: 565849 TAKE ONE TABLET BY MOUTH THREE TIMES A D AY NEEDED 11/07/2017 12/06/2017 Inactive diclofenac sodium 75 mg tablet,delayed release RxNorm: 270800 1 Tablet(s) PO BID 11/07/2017 05/05/2018 In active liothyronine 5 mcg t ablet RxNorm: 173842 TAKE ONE TABLET BY [facility] DAILY 10/27/2017 07/18/2018 In active tizanidine 4 mg tablet RxNorm: 800668 1 Tablet(s) PO TID as needed 10/18/2017 12/16/2017 Inactive oxymorphone 5 mg tablet RxNorm: 633242 1 Tablet(s) PO Q6 PRN 09/29/2017 11/27/2017 Inactive morphine 30 mg table t, crush resistant, extended release RxNorm: 2164144 1 Tablet(s) PO BID 09/29/2017 11/28/2017 Inactive baclofen 10 mg tablet RxNorm: 310104 1 Tablet(s) PO TID as needed 09/11/2017 10/10/2017 Inactive baclofen 10 mg tablet RxNorm: 025062 1 Tablet(s) PO TID as needed 08/11/2017 09/09/2017 Inactive Opana ER 15 mg table t, crush resistant, extended release RxNorm: 862873 1 Tablet(s) PO Q12H 08/11/2017 09/28/2017 Inactive Remeron 15 mg tablet RxNorm: 484535 TAKE ONE TABLET BY MOUTH EVERY NIGHT AT BEDTIME 08/02/2017 10/30/2017 Inactive oxymorphone 5 mg tablet RxNorm: 706701 1 Tablet(s) PO Q6 PRN 08/02/2017 09/28/2017 Inactive Opana ER 5 mg tablet , crush resistant, extended release RxNorm: 004721 1 Tablet(s) PO Q6 PRN 08/01/2017 08/10/2017 Inactive Protonix 40 mg table t,delayed release RxNorm: 088264 TAKE ONE TABLET BY [facility] DAILY 06/26/2017 06/25/2017 In active Protonix 40 mg table t,delayed release RxNorm: 374651 TAKE ONE TABLET BY [facility] DAILY 06/26/2017 02/05/2019 In active bupropion HCl XL 300 mg 24 hr tablet, extended release RxNorm: 293160 TAKE ONE TABLET BY MOUTH DAILY 06/13/2017 12/09/2017 Inactive tizanidine 4 mg tablet RxNorm: 224156 1 Tablet(s) PO TID as needed 06/13/2017 06/12/2017 Inactive tizanidine 4 mg tablet RxNorm: 420180 1 Tablet(s) PO TID as needed 06/13/2017 09/10/2017 Inactive baclofen 10 mg tablet RxNorm: 251650 1 Tablet(s) PO TID as needed 06/13/2017 07/12/2017 Inactive Opana ER 15 mg table t, crush resistant, extended release RxNorm: 617035 1 Tablet(s) PO Q12H 06/09/2017 08/07/2017 Inactive Opana ER 5 mg tablet , crush resistant, extended release RxNorm: 418113 1 Tablet(s) PO Q6 PRN 06/09/2017 07/31/2017 Inactive diclofenac sodium 75 mg tablet,delayed release RxNorm: 384751 1 Tablet(s) PO BID 06/09/2017 09/06/2017 In active clonazepam 1 mg tablet RxNorm: 574352 1/2 Tablet(s) PO daily 05/24/2017 11/18/2017 Inactive bupropion HCl XL 300 mg 24 hr tablet, extended release RxNorm: 958122 TAKE ONE TABLET BY MOUTH DAILY 03/16/2017 06/12/2017 Inactive clonazepam 1 mg tablet RxNorm: 802202 1/2 Tablet(s) PO daily 02/22/2017 05/18/2017 Inactive Remeron 15 mg tablet RxNorm: 529445 TAKE ONE TABLET BY MOUTH EVERY NIGHT AT BEDTIME 02/06/2017 2017 Inactive Protonix 40 mg table t,delayed release RxNorm: 504393 TAKE ONE TABLET BY [facility] DAILY 01/26/2017 06/24/2017 In active mupirocin 2 % topica l ointment RxNorm: 424727 1 Application TOP BID 01/12/2017 01/18/2017 Inactive Bactrim DS 800 mg-16 0 mg tablet RxNorm: 154681 1 Tablet(s) PO BID 11/17/2016 11/23/2016 Inactive mupirocin 2 % topica l ointment RxNorm: 296377 1 Application TOP BID 11/10/2016 11/16/2016 Inactive Bactrim DS 800 mg-16 0 mg tablet RxNorm: 683582 1 Tablet(s) PO BID 11/10/2016 11/16/2016 Inactive bupropion HCl XL 300 mg 24 hr tablet, extended release RxNorm: 008068 TAKE ONE TABLET BY MOUTH DAILY 11/07/2016 03/06/2017 Inactive liothyronine 5 mcg t ablet RxNorm: 079365 1 Tablet(s) PO daily 11/01/2016 10/26/2017 Inactive levothyroxine 200 mc g tablet RxNorm: 308492 1 Tablet(s) PO daily 10/04/2016 09/28/2017 Inactive clonazepam 1 mg tablet RxNorm: 197772 1/2 Tablet(s) PO daily 09/21/2016 03/18/2017 Inactive clonazepam 1 mg tablet RxNorm: 010164 1/2 Tablet(s) PO daily 09/16/2016 09/20/2016 Inactive Abilify 2 mg tablet RxNorm: 162951 1 Tablet(s) PO daily 09/16/2016 10/13/2016 Inactive trazodone 50 mg tablet RxNorm: 716162 1/2 Tablet(s) as needed 1 Tablet(s) PO Q HS 09/16/2016 01/13/2017 In active morphine 15 mg immed iate release tablet RxNorm: 414035 1 Tablet(s) PO Q6 PRN 09/16/2016 04/06/2017 In active baclofen 10 mg tablet RxNorm: 259860 1 Tablet(s) PO TID as needed 09/16/2016 06/12/2017 Inactive MS Contin 30 mg tabl et,extended release RxNorm: 331405 1 Tablet(s) PO Q12H 09/16/2016 04/06/2017 In active Remeron 15 mg tablet RxNorm: 672339 1 Tablet(s) PO QHS 08/19/2016 09/15/2016 Inactive levothyroxine 200 mc g tablet RxNorm: 163409 1 Tablet(s) PO daily 08/11/2016 10/03/2016 Inactive bupropion HCl XL 300 mg 24 hr tablet, extended release RxNorm: 981013 TAKE ONE TABLET BY MOUTH DAILY 08/11/2016 11/06/2016 Inactive Protonix 40 mg table t,delayed release RxNorm: 341150 1 Tablet(s) PO daily 06/17/2016 12/13/2016 In active bupropion HCl XL 300 mg 24 hr tablet, extended release RxNorm: 798913 1 Tablet(s) PO daily 05/12/2016 07/10/2016 Inactive bupropion HCl XL 300 mg 24 hr tablet, extended release RxNorm: 338826 1 Tablet(s) PO daily 05/12/2016 05/11/2016 Inactive Cialis 20 mg tablet RxNorm: 928202 1 Tablet(s) PO PRN 02/16/2016 No Stop Date Active not more than 1 tab in 24 hours morphine ER 10 mg ca psule,extended release pellets RxNorm: 583394 1 Tablet(s) PO Q6 as needed 02/16/2016 11/16/2016 Inactive clonazepam 1 mg tablet RxNorm: 442637 1/2 Tablet(s) PO BID 02/16/2016 09/15/2016 Inactive trazodone 50 mg tablet RxNorm: 270691 1/2 Tablet(s) as needed 1 Tablet(s) PO Q HS 02/16/2016 08/18/2016 In active trazodone 50 mg tablet RxNorm: 030620 1/2 Tablet(s) 1 Tablet(s) PO QHS 11/17/2015 02/15/2016 In active trazodone 50 mg tablet RxNorm: 963022 1 Tablet(s) PO QHS 10/19/2015 11/16/2015 Inactive levothyroxine 200 mc g tablet RxNorm: 518287 1 Tablet(s) PO daily 10/02/2015 08/10/2016 Inactive Wellbutrin XL 150 mg 24 hr tablet, extended release RxNorm: 548340 1 Tablet(s) PO daily 10/02/2015 05/11/2016 Inactive levothyroxine 200 mc g tablet RxNorm: 291303 1 Tablet(s) PO daily 09/30/2015 10/01/2015 Inactive Wellbutrin XL 150 mg 24 hr tablet, extended release RxNorm: 574875 1 Tablet(s) PO daily 09/30/2015 10/01/2015 Inactive trazodone 50 mg tablet RxNorm: 755863 1 Tablet(s) PO QHS 09/11/2015 10/10/2015 Inactive trazodone 50 mg tablet RxNorm: 178319 1 Tablet(s) PO QHS 09/11/2015 09/10/2015 Inactive Cymbalta 30 mg capsu le,delayed release RxNorm: 512342 1 Capsule(s) PO daily 09/07/2015 11/16/2015 In active Cymbalta 60 mg capsu le,delayed release RxNorm: 244748 1 Capsule(s) PO daily 08/31/2015 08/30/2015 In active Cymbalta 30 mg capsu le,delayed release RxNorm: 682906 1 Capsule(s) PO daily take with 60mg to make 90 mg daily 08/31/2015 09/06/2015 Inactive Cymbalta 30 mg capsu le,delayed release RxNorm: 240963 1 Capsule(s) PO daily take with 60mg to make 90 mg daily 08/31/2015 08/30/2015 Inactive Cymbalta 60 mg capsu le,delayed release RxNorm: 218397 1 Capsule(s) PO daily x 7 days and then increase to 90mg daily 08/31/2015 09/07/2015 Inactive levothyroxine 200 mc g tablet RxNorm: 455990 1 Tablet(s) PO daily 08/14/2015 09/29/2015 Inactive Wellbutrin XL 150 mg 24 hr tablet, extended release RxNorm: 815918 1 Tablet(s) PO daily 07/14/2015 09/29/2015 Inactive Cialis 20 mg tablet RxNorm: 949364 1 Tablet(s) PO PRN 07/02/2015 02/15/2016 Inactive not more than 1 tab in 24 hours liothyronine 5 mcg t ablet RxNorm: 926861 1 Tablet(s) PO daily 2015 05/29/2016 Inactive clonazepam 1 mg tablet RxNorm: 205609 1 Tablet(s) PO TID 2015 02/15/2016 Inactive minocycline 50 mg ta blet RxNorm: 606602 1 Tablet(s) PO daily 2015 05/11/2016 Inactive Wellbutrin XL 150 mg 24 hr tablet, extended release RxNorm: 115586 1 Tablet(s) PO daily 04/23/2015 07/13/2015 Inactive levothyroxine 200 mc g tablet RxNorm: 477829 1 Tablet(s) PO daily 04/23/2015 08/13/2015 Inactive Aleve oral RxNorm: 878272 oral No Start Date Active Tylenol 500 mg RxNorm: oral No Start Date Active morphine ER 15 mg ta blet,extended release RxNorm: 974048 oral No Start Date 11/16/2016 Inactive Trazadone 25 mg RxNorm: 2 PO daily No Start Date 09/11/2015 Inactive diclofenac oral RxNorm: 3355 oral No Start Date 05/04/2018 Inactive clonazepam 1 mg tablet RxNorm: 609854 1 Tablet(s) PO QHS No Start Date 06/04/2015 Inactive Wellbutrin XL 150 mg 24 hr tablet, extended release RxNorm: 610772 1 Tablet(s) PO daily No Start Date 04/22/2015 Inactive minocycline 50 mg ta blet RxNorm: 008829 1 Tablet(s) PO daily No Start Date 06/04/2015 Inactive methadone 5 mg tablet RxNorm: 639661 1 Tablet(s) PO Q8 No Start Date 02/15/2016 Inactive Protonix 40 mg table t,delayed release RxNorm: 186636 Tablet(s) PO daily No Start Date 06/16/2016 Inactive Opana ER 15 mg table t, crush resistant, extended release RxNorm: 641280 1 Tablet(s) PO Q12H No Start Date 06/08/2017 Inactive MS Contin 30 mg tabl et,extended release RxNorm: 197775 1 Tablet(s) PO Q12H No Start Date 02/15/2016 Inactive Opana ER 15 mg table t, crush resistant, extended release RxNorm: 502473 1 Tablet(s) PO BID No Start Date 09/15/2016 Inactive liothyronine 5 mcg t ablet RxNorm: 697601 1 Tablet(s) PO daily No Start Date 06/04/2015 Inactive Cialis 20 mg tablet RxNorm: 852576 1 Tablet(s) PO PRN No Start Date 07/01/2015 Inactive not more than 1 tab in 24 hours baclofen 10 mg tablet RxNorm: 303516 1 Tablet(s) PO TID as needed No Start Date 05/11/2016 Inactive morphine 15 mg immed iate release tablet RxNorm: 956590 1 Tablet(s) PO Q6 PRN as needed No Start Date 02/15/2016 Inactive levothyroxine 200 mc g tablet RxNorm: 789889 1 Tablet(s) PO daily No Start Date 04/22/2015 Inactive Opana ER 5 mg tablet , crush resistant, extended release RxNorm: 783292 1 Tablet(s) PO Q6 No Start Date 06/08/2017 Inactive Medication Administered Medication Codes Instruc tions Start Date Status cyanocobalamin (vit B-12) 1,000 mcg/mL injection solut ion RxNorm: 519093 1Milliliter 12/27/2018 No longer Active Immunizations No Immunization data Assessments Condition Codes Effectiv e Dates Hypothyroidism, unspecified ICD-10: E03.9 ICD-9: 244.9 01/07/2019 Chronic pain syndrome ICD-10: G89.4 ICD-9: 338.4 01/07/2019 Encounter for screening for lipoid disorders ICD-10: [...] Reason For Visit Effective Dates Notes fatigue 01/07/2019 fatigue 12/27/2018 fatigue 11/05/2018 fatigue [...] 29.4 pg 01/07/2019 Cbc With Differential Ord2 Mcmullen% 10.9 % 01/07/2019 Cbc With Differential Ord2 [...] 1.77 K/ul 01/07/2019 Cbc With Differential Ord2 [place]ullen ABS# 0.5 K/ul 01/07/2019 Cbc With Differential Ord2 Eos ABS# 0.1 K/ul 01/07/2019 Cbc With Differential Ord2 Baso ABS# 0.0 K/ul 01/07/2019 Free T4 Ubc395 FREE T4 2.05 ng/dL 01/07/2019 Lipid Ord30 CHOL 189 mg/dL 01/07/2019 Lipid Ord30 HDL 58.0 mg/dl 01/07/2019 Lipid Ord30 TRIG 155 mg/dL 01/07/2019 Lipid Ord30 LDL 100 mg/dL 01/07/2019 Lipid Ord30 C/HDL 3.3 Ratio 01/07/2019 Comp Metabolic Hnz147 NA 137 mEq/L 01/07/2019 Comp Metabolic Lzr588 K 4.2 mEq/L 01/07/2019 Comp Metabolic Eto260 CL 104 mEq/L 01/07/2019 Comp Metabolic Crw240 CO2 26.0 mEq/L 01/07/2019 Comp Metabolic Rgj173 AN ION GAP 11 01/07/2019 Comp Metabolic Yvg511 GL UCOSE 64 mg/dL 01/07/2019 Comp Metabolic Vak053 Cr eat 0.8 mg/dL 01/07/2019 Comp Metabolic Ojj840 eG FR 110 ml/min/1.73m2 12/28 Comp Metabolic Wwb311 BUN 7 mg/dL 01/07/2019 Comp Metabolic Nki348 B/ C Ratio 9.0 Ratio 01/07/2019 Comp Metabolic Esd334 CA LCIUM 9.7 mg/dL 01/07/2019 Comp Metabolic Poo108 AL K PHOS 64 U/L 01/07/2019 Comp Metabolic Dwk969 T(SGOT) 32 U/L 01/07/2019 Comp Metabolic Upw868 AL T(SGPT) 44 U/L 01/07/2019 Comp Metabolic Zcx829 BI LI T 0.3 mg/dL 01/07/2019 Comp Metabolic Rcp341 AL BUMIN 4.3 g/dL 01/07/2019 Comp Metabolic Zfq689 TP RO 6.5 g/dL 01/07/2019 Comp Metabolic Bqd947 GL OB 2.2 g/dL 01/07/2019 Comp Metabolic Ykp623 A/ G Ratio 2.0 Ratio 01/07/2019 Comp Metabolic Ywc332 Os mo 270 mOsmo 01/07/2019 Free T4 Ixf579 FREE T4 1.54 ng/dL 11/05/2018 Vitamin D 25 Oh Jro5624 VITAMIN D, 25 HYDROXY 40.65 ng/mL 11/05/2018 Tsh Ord6 TSH (3rd IS) 0.02 uIU/mL 11/05/2018 Vitamin D 25 Oh Xya2797 VITAMIN D, 25 HYDROXY 30.96 ng/mL 07/06/2018 Comp Metabolic Xuo372 NA 141 mEq/L 07/06/2018 Comp Metabolic Ktl191 K 4.2 mEq/L 07/06/2018 Comp Metabolic Xrq059 CL 103 mEq/L 07/06/2018 Comp Metabolic Dks517 CO2 29.0 mEq/L 07/06/2018 Comp Metabolic Qwd723 AN ION GAP 13 07/06/2018 Comp Metabolic Xib840 GL UCOSE 105 mg/dL 07/06/2018 Comp Metabolic Fza495 Cr eat 0.8 mg/dL 07/06/2018 Comp Metabolic Hml867 eG FR 101 ml/min/1.73m2 06/27 Comp Metabolic Qqn733 BUN 7 mg/dL 07/06/2018 Comp Metabolic Vtr124 B/ C Ratio 8.3 Ratio 07/06/2018 Comp Metabolic Fdr925 CA LCIUM 9.9 mg/dL 07/06/2018 Comp Metabolic Yzp883 AL K PHOS 65 U/L 07/06/2018 Comp Metabolic Kmy250 T(SGOT) 21 U/L 07/06/2018 Comp Metabolic Xhr698 AL T(SGPT) 31 U/L 07/06/2018 Comp Metabolic Zbx345 BI LI T 0.3 mg/dL 07/06/2018 Comp Metabolic Pgq409 AL BUMIN 4.3 g/dL 07/06/2018 Comp Metabolic Prf518 TP RO 6.4 g/dL 07/06/2018 Comp Metabolic Zzx766 GL OB 2.1 g/dL 07/06/2018 Comp Metabolic Czu726 A/ G Ratio 2.0 Ratio 07/06/2018 Comp Metabolic Rvo560 Os mo 280 mOsmo 07/06/2018 Cbc With [...] 29.3 pg 07/06/2018 Cbc With Differential Ord2 Mcmullen% 10.5 % 07/06/2018 Cbc With Differential Ord2 [...] 1.89 K/ul 07/06/2018 Cbc With Differential Ord2 Mcmullen ABS# 0.5 K/ul 07/06/2018 Cbc With Differential Ord2 Eos ABS# 0.3 K/ul 07/06/2018 Cbc With Differential Ord2 Baso ABS# 0.0 K/ul 07/06/2018 Total Psa Ord10 PSA 0.34 ng/mL 07/06/2018 Tsh Ord6 TSH (3rd IS) 0.02 uIU/mL 07/06/2018 Testosterone Paj780 Testo 400.6 ng/dL 07/06/2018 Free T4 Zar547 FREE T4 1.48 ng/dL 07/06/2018 Channing Spotted Fever Igg/Igm 62855 3 PARTHA MT SPOTTED FEVER IGM EIA . 04/04/2018 [place] Spotted Fever Igg/Igm 08748 3 RMSF, IGM 0.24 index 04/04/2018 [place] Spotted Fever Igg/Igm 81316 3 PARTHA MT SPOTTED FEVER IGG EIA FLEX . 04/04/2018 [place] Spotted Fever Igg/Igm 10414 3 RMSF, IGG SCREEN-FLEX Equivocal 04/04/2018 Partha Mtn Spot'D Fev Igg 396315 RMSF, IGG- TITER IFA <1:64 04/04/2018 Ehrlichia Chaffeensis Antibody Igg 860056 EHRLICHIA CHAFFEENSIS IGG <1:64 04/02/2018 Ehrlichia Chaffeensis Antibody Igm 701261 EHRLICHIA CHAFFEENSIS IGM < 1:16 04/02/2018 Lymes Disease Total Antibodies With Western Blot Refle x [id number] B. BURGDORFERI, IGG/IGM 0.23 03/30/2018 Lymes Disease Total Antibodies With Western Blot Refle x [id number] 03/30/2018 Cbc With Differential Ord2 WBC 5.04 [...] 28.7 pg 03/28/2018 Cbc With Differential Ord2 Mcmullen% 16.1 % 03/28/2018 Cbc With Differential Ord2 [...] 1.37 K/ul 03/28/2018 Cbc With Differential Ord2 Mcmullen ABS# 0.8 K/ul 03/28/2018 Cbc With Differential Ord2 Eos ABS# 0.1 K/ul 03/28/2018 Cbc With Differential Ord2 Baso ABS# 0.0 K/ul 03/28/2018 Comp Metabolic Jxw557 NA 136 mEq/L 02/16/2018 Comp Metabolic Wxt075 K 3.9 mEq/L 02/16/2018 Comp Metabolic Eyk910 CL 103 mEq/L 02/16/2018 Comp Metabolic Utj716 CO2 23.0 mEq/L 02/16/2018 Comp Metabolic Phx023 AN ION GAP 14 02/16/2018 Comp Metabolic Mle960 GL UCOSE 133 mg/dL 02/16/2018 Comp Metabolic Shu207 Cr eat 0.8 mg/dL 02/16/2018 Comp Metabolic Hti937 eG FR 103 ml/min/1.73m2 01/26 Comp Metabolic Ftb785 BUN 7 mg/dL 02/16/2018 Comp Metabolic Leh338 B/ C Ratio 8.4 Ratio 02/16/2018 Comp Metabolic Nbf328 CA LCIUM 9.3 mg/dL 02/16/2018 Comp Metabolic Pxc886 AL K PHOS 71 U/L 02/16/2018 Comp Metabolic Uir462 T(SGOT) 42 U/L 02/16/2018 Comp Metabolic Pvt216 AL T(SGPT) 69 U/L 02/16/2018 Comp Metabolic Mqs934 BI LI T 0.3 mg/dL 02/16/2018 Comp Metabolic Npm621 AL BUMIN 4.1 g/dL 02/16/2018 Comp Metabolic Dwm136 TP RO 6.3 g/dL 02/16/2018 Comp Metabolic Vpd674 GL OB 2.2 g/dL 02/16/2018 Comp Metabolic Hea952 A/ G Ratio 1.8 Ratio 02/16/2018 Comp Metabolic Std652 Os mo 272 mOsmo 02/16/2018 Free T4 Scr136 FREE T4 1.85 ng/dL 02/16/2018 Ferritin Ord22 FERRITIN 161.7 ng/mL 02/16/2018 Tsh Ord6 TSH (3rd IS) 0.01 uIU/mL 02/16/2018 Test(s) Not Perfromed [id number] Test(s) Not Performed Test(s) Not Performed. See Below: 02/16/2018 Test(s) Not Perfromed [id number] TEST NAME CBC 02/16/2018 Test(s) Not Perfromed [id number] Rejection Reason No Suitable Specimen Receive d 02/16/2018 Test(s) Not Perfromed [id number] COMMENT Please Recollect Sample 02/16/2018 Test(s) Not Perfromed [id number] Credit Professional Fernando Goyal 02/16/2018 Tibc Ord40 Iron 138 [...] 26.4 pg 01/05/2018 Cbc With Differential Ord2 Mcmullen% 11.9 % 01/05/2018 Cbc With Differential Ord2 [...] 2.08 K/ul 01/05/2018 Cbc With Differential Ord2 Mcmullen ABS# 0.6 K/ul 01/05/2018 Cbc With Differential Ord2 Eos ABS# 0.2 K/ul 01/05/2018 Cbc With Differential Ord2 Baso ABS# 0.0 K/ul 01/05/2018 Ferritin Ord22 FERRITIN 5.7 ng/mL 12/06/2017 Tibc Ord40 Iron 33 ug/dl 12/06/2017 Tibc Ord40 UIBC 431 ug/dL 12/06/2017 Tibc Ord40 TIBC 464 ug/dL 12/06/2017 Tibc Ord40 Fe-%Sat 7.1 % 12/06/2017 Free T4 Enw349 FREE T4 1.82 ng/dL 12/01/2017 Tsh Ord6 [...] 27.0 pg 12/01/2017 Cbc With Differential Ord2 Mcmullen% 10.6 % 12/01/2017 Cbc With Differential Ord2 [...] 1.92 K/ul 12/01/2017 Cbc With Differential Ord2 Mcmullen ABS# 0.4 K/ul 12/01/2017 Cbc With Differential Ord2 Eos ABS# 0.2 K/ul 12/01/2017 Cbc With Differential Ord2 Baso ABS# 0.0 K/ul 12/01/2017 Comp Metabolic Tlz047 NA 136 mEq/L 12/01/2017 Comp Metabolic Vag188 K 4.6 mEq/L 12/01/2017 Comp Metabolic Oec953 CL 102 mEq/L 12/01/2017 Comp Metabolic Nsf638 CO2 27.0 mEq/L 12/01/2017 Comp Metabolic Ppx344 AN ION GAP 12 12/01/2017 Comp Metabolic Gti163 GL UCOSE 90 mg/dL 12/01/2017 Comp Metabolic Jkt940 Cr eat 0.7 mg/dL 12/01/2017 Comp Metabolic Ktw165 eG FR 123 ml/min/1.73m2 03/2018 Comp Metabolic Hed763 BUN 4 mg/dL 12/01/2017 Comp Metabolic Vps452 B/ C Ratio 5.6 Ratio 12/01/2017 Comp Metabolic Gfv539 CA LCIUM 9.0 mg/dL 12/01/2017 Comp Metabolic Shy783 AL K PHOS 67 U/L 12/01/2017 Comp Metabolic Phd072 T(SGOT) 30 U/L 12/01/2017 Comp Metabolic Iuv173 AL T(SGPT) 29 U/L 12/01/2017 Comp Metabolic Ghs772 BI LI T 0.3 mg/dL 12/01/2017 Comp Metabolic Utb678 AL BUMIN 4.1 g/dL 12/01/2017 Comp Metabolic Bsq942 TP RO 6.1 g/dL 12/01/2017 Comp Metabolic Pkg400 GL OB 2.0 g/dL 12/01/2017 Comp Metabolic Xnw456 A/ G Ratio 2.0 Ratio 12/01/2017 Comp Metabolic Ked612 Os mo 268 mOsmo 12/01/2017 Comp Metabolic Ers977 NA 136 mEq/L 02/16/2016 Comp Metabolic Uvo411 K 4.2 mEq/L 02/16/2016 Comp Metabolic Qkl044 CL 104 mEq/L 02/16/2016 Comp Metabolic Tfw882 CO2 20.0 mEq/L 02/16/2016 Comp Metabolic Zgy160 AN ION GAP 16 02/16/2016 Comp Metabolic Obt217 GL UCOSE 71 mg/dL 02/16/2016 Comp Metabolic Qsb437 Cr eat 0.8 mg/dL 02/16/2016 Comp Metabolic Qci222 eG FR 113 ml/min/1.73m2 01/26 Comp Metabolic Qmr328 BUN 7 mg/dL 02/16/2016 Comp Metabolic Yfd228 B/ C Ratio 9.1 Ratio 02/16/2016 Comp Metabolic Mgi642 CA LCIUM 9.4 mg/dL 02/16/2016 Comp Metabolic Wvr416 AL K PHOS 57 U/L 02/16/2016 Comp Metabolic Ikl265 T(SGOT) 30 U/L 02/16/2016 Comp Metabolic Jzj720 AL T(SGPT) 27 U/L 02/16/2016 Comp Metabolic Yjk467 BI LI T 0.2 mg/dL 02/16/2016 Comp Metabolic Rea085 AL BUMIN 4.4 g/dL 02/16/2016 Comp Metabolic Iwr509 TP RO 6.5 g/dL 02/16/2016 Comp Metabolic Ziy107 GL OB 2.1 g/dL 02/16/2016 Comp Metabolic Aev986 A/ G Ratio 2.1 Ratio 02/16/2016 Comp Metabolic Xzk192 Os mo 268 mOsmo 02/16/2016 Free T4 Eff037 FREE T4 1.20 ng/dL 02/16/2016 Cbc With [...] 30.2 pg 02/16/2016 Cbc With Differential Ord2 Mcmullen% 9.6 % 02/16/2016 Cbc With Differential Ord2 [...] 1.50 K/ul 02/16/2016 Cbc With Differential Ord2 Mcmullen ABS# 0.5 K/ul 02/16/2016 Cbc With Differential [...] Result Effective Dates Constitutional No recent illness 01/07/2019 Constitutional No [...] eye erythema 11/2017 Eyes No eye pain 11/01/2 018 Eyes No vision change Ears/Nose/Throat/Neck No [...] Procedure Codes Date THER/PROPH/DIAG INJ SC/IM CPT-4: 54051 12/27/2018 VITAMIN B12 INJECTION CPT-4: J3420 12/27/2018 PPPS, SUBSEQ VISIT CPT- 4: G0439 09/17/2018 Vital Signs Date Vital 01/07/2019 Blood Pressure 1: 124/80 Code: 8480-6 BMI: 38.3 Code: 91140-1 Heart Rate 1: 88 bpm Height: 5'6" SpO2: 97% Weight: 237 lbs 12/27/2018 Blood Pressure 1: 122/80 Code: 8480-6 BMI: 38.6 Code: 62839-0 Heart Rate 1: 72 bpm Height: 5'6" SpO2: 98% Weight: 239 lbs 11/05/2018 Blood Pressure 1: 12264 Code: 8480-6 BMI: 37.4 Code: 08447-4 Heart Rate 1: 66 bpm Height: 5'6" SpO2: 97% Weight: 232 lbs 09/27/2018 Blood Pressure 1: 9266 Code: 8480-6 BMI: 37.9 Code: 40049-0 Heart Rate 1: 66 bpm Height: 5'6" SpO2: 98% Weight: 235 lbs 09/17/2018 Blood Pressure 1: 11072 Code: 8480-6 BMI: 38.3 Code: 90959-1 Heart Rate 1: 77 bpm Height: 5'6" SpO2: 95% Waist Measure (cm): 102 cm Weight: 237 lbs 09/03/2018 Blood Pressure 1: 12268 Code: 8480-6 BMI: 37.6 Code: 12781-4 Heart Rate 1: 78 bpm Height: 5'6" SpO2: 97% Weight: 233 lbs 07/05/2018 Blood Pressure 1: 94/62 Code: 8480-6 BMI: 36.8 Code: 77948-7 Heart Rate 1: 88 bpm Height: 5'6" SpO2: 99% Weight: 228 lbs 05/04/2018 Blood Pressure 1: 110/80 Code: 8480-6 BMI: 35.5 Code: 72840-4 Heart Rate 1: 80 bpm Height: 5'6" SpO2: 99% Weight: 220 lbs 03/28/2018 Blood Pressure 1: 11072 Code: 8480-6 BMI: 35.0 Code: 39481-7 Heart Rate 1: 80 bpm Height: 5'6" SpO2: 98% Temperature: 36.2 (C ) / 97.1 (F) Weight: 217 lbs 02/27/2018 Blood Pressure 1: 136/76 Code: 8480-6 BMI: 36.0 Code: 90821-4 Heart Rate 1: 80 bpm Height: 5'6" SpO2: 98% Weight: 223 lbs 12/01/2017 Blood Pressure 1: 132/72 Code: 8480-6 BMI: 33.4 Code: 09076-0 Heart Rate 1: 82 bpm Height: 5'6" SpO2: 97% Weight: 207 lbs 09/29/2017 Blood Pressure 1: 124/68 Code: 8480-6 BMI: 32.1 Code: 44992-0 Heart Rate 1: 77 bpm Height: 5'6" SpO2: 98% Weight: 199 lbs 08/11/2017 Blood Pressure 1: 154/82 Code: 8480-6 BMI: 31.6 Code: 75728-9 Heart Rate 1: 75 bpm Height: 5'6" SpO2: 98% Weight: 196 lbs 06/09/2017 Blood Pressure 1: 148/88 Code: 8480-6 BMI: 28.6 Code: 48640-5 Heart Rate 1: 88 bpm Height: 5'6" SpO2: 98% Weight: 177 lbs 04/07/2017 Blood Pressure 1: 140/84 Code: 8480-6 BMI: 30.3 Code: 39488-0 Heart Rate 1: 81 bpm Height: 5'6" SpO2: 99% Weight: 188 lbs 11/17/2016 Blood Pressure 1: 130/72 Code: 8480-6 Heart Rate 1: 63 bpm Height: SpO2: 93% Weight: 11/10/2016 Blood Pressure 1: 128/86 Code: 8480-6 BMI: 30.3 Code: 24698-8 Heart Rate 1: 84 bpm Height: 5'6" SpO2: 96% Weight: 188 lbs 10/14/2016 Heigh t: 5'6" 09/16/2016 Blood Pressure 1: 130/80 Code: 8480-6 BMI: 30.3 Code: 45496-3 Heart Rate 1: 67 bpm Height: 5'6" SpO2: 99% Weight: 188 lbs 08/19/2016 Blood Pressure 1: 110/62 Code: 8480-6 BMI: 29.9 Code: 04499-6 Heart Rate 1: 70 bpm Height: 5'6" SpO2: 97% Weight: 185 lbs 06/17/2016 Blood Pressure 1: 112/68 Code: 8480-6 BMI: 27.6 Code: 18871-5 Heart Rate 1: 61 bpm Height: 5'6" SpO2: 98% Weight: 171 lbs 05/12/2016 Blood Pressure 1: 130/76 Code: 8480-6 BMI: 29.7 Code: 52749-1 Heart Rate 1: 103 bpm Height: 5'6" SpO2: 98% Weight: 184 lbs 02/16/2016 Blood Pressure 1: 140/82 Code: 8480-6 BMI: 28.7 Code: 54772-4 Heart Rate 1: 66 bpm Height: 5'6" SpO2: 99% Weight: 178 lbs 11/17/2015 Blood Pressure 1: 120/74 Code: 8480-6 BMI: 29.4 Code: 65059-1 Heart Rate 1: 90 bpm Height: 5'6" SpO2: 94% Weight: 182 lbs 08/28/2015 Blood Pressure 1: 128/76 Code: 8480-6 BMI: 27.9 Code: 42321-3 Heart Rate 1: 80 bpm Height: 5'6" SpO2: 98% Weight: 173 lbs 05/28/2015 Blood Pressure 1: 122/70 Code: 8480-6 BMI: 27.0 Code: 03969-8 Heart Rate 1: 74 bpm Height: 5'6" SpO2: 98% Weight: 167 lbs 04/23/2015 Blood Pressure 1: 110/60 Code: 8480-6 BMI: 27.0 Code: 18284-4 Heart Rate 1: 68 bpm Height: 5'6" Weight: 167 lbs Functional Status No Functional Status data History of Present Illness Symptom Name Status Resu lt Effective Date Notes Limitation on Activities moderately limits activities 01/07/2019 [...] o ngoing 01/07/2019 None Location in the [facility] e of [place] [...] and Resolution ongoing 09/03/2018 None 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 P ATIENT, LEVEL IV Diagnosis: Chronic pain syndrome[ICD10: G89.4] Diagnosis: Hypothyroidism, unspecified[ICD10: E03.9] Diagnosis: Encounter for screening for lipoid disorders[ICD10: Z13.220] Diagnosis: Major depressive disorder, recurrent, moderate[ICD10: F33.1] Leydi Jacobo MD, [facility] CPT-4: 44837 01/07/2019 ([id number]) 62291 EST. P ATIENT, LEVEL III Diagnosis: Obstructive sleep apnea (adult) (pediatric)[ICD10: G47.33] Diagnosis: Hypothyroidism, unspecified[ICD10: E03.9] Diagnosis: Vitamin B12 deficiency anemia, unspecified[ICD10: D51.9] Leydi Jacobo MD, [facility] CPT-4: 23007 12/27/2018 ([id number]) 38096 EST. P ATIENT, LEVEL IV Diagnosis: Hypothyroidism, unspecified[ICD10: E03.9] Diagnosis: Major depressive disorder, recurrent, moderate[ICD10: F33.1] Diagnosis: Chronic pain syndrome[ICD10: G89.4] Leydi Jacobo MD, [facility] CPT-4: 40765 11/05/2018 ([id number]) 80832 EST. P ATIENT, LEVEL IV Diagnosis: Chronic pain syndrome[ICD10: G89.4] Diagnosis: Hypothyroidism, unspecified[ICD10: E03.9] Diagnosis: Other fatigue[ICD10: R53.83] Diagnosis: Other obesity due to excess calories[ICD10: E66.09] Diagnosis: Major depressive disorder, recurrent, moderate[ICD10: F33.1] Leydi Jacobo MD, [facility] CPT-4: 27265 09/27/2018 ([id number]) 92993 EST. P ATIENT, LEVEL III Diagnosis: Chronic pain syndrome[ICD10: G89.4] Leydi Jacobo MD, [facility] CPT-4: 31969 09/03/2018 ([id number]) 80265 EST. P ATIENT, LEVEL IV Diagnosis: Hypothyroidism, unspecified[ICD10: E03.9] Diagnosis: Major depressive disorder, recurrent, moderate[ICD10: F33.1] Diagnosis: Chronic pain syndrome[ICD10: G89.4] Diagnosis: Other male erectile dysfunction[ICD10: N52.8] Diagnosis: Other fatigue[ICD10: R53.83] Diagnosis: Encounter for screening for malignant neoplasm of prostate[ICD10: Z12.5] Leydi Jacobo MD, [facility] CPT-4: 10182 07/05/2018 ([id number]) 16820 EST. P ATIENT, LEVEL IV Diagnosis: Chronic pain syndrome[ICD10: G89.4] Diagnosis: Hypothyroidism, unspecified[ICD10: E03.9] Diagnosis: Major depressive disorder, recurrent, moderate[ICD10: F33.1] Leydi Jacobo MD, [facility] CPT-4: 18119 05/04/2018 93831 EST. PATIENT, LEVEL IV Diagnosis: Melena[ICD10: K92.1] Diagnosis: Other malaise[ICD10: R53.81] Diagnosis: Other fatigue[ICD10: R53.83] Diagnosis: Pain in unspecified joint[ICD10: M25.50] Diagnosis: Diarrhea, unspecified[ICD10: R19.7] Denae Jacobo MD, [facility] CPT-4: 53695 03/28/2018 ([id number]) 15323 EST. P ATIENT, LEVEL IV Diagnosis: Chronic pain syndrome[ICD10: G89.4] Diagnosis: Hypothyroidism, unspecified[ICD10: E03.9] Diagnosis: Other obesity due to excess calories[ICD10: E66.09] Diagnosis: Major depressive disorder, recurrent, moderate[ICD10: F33.1] Diagnosis: Obstructive sleep apnea (adult) (pediatric)[ICD10: G47.33] Leydi Jacobo MD, [facility] CPT-4: 22166 02/27/2018 60621 EST. PATIENT, LEVEL IV Diagnosis: Other specified hypothyroidism[ICD10: E03.8] Diagnosis: Chronic pain syndrome[ICD10: G89.4] Diagnosis: Major depressive disorder, recurrent, moderate[ICD10: F33.1] Denae Jacobo MD, [facility] CPT-4: 08684 12/01/2017 ([id number]) 32614 EST. P ATIENT, LEVEL IV Diagnosis: Chronic pain syndrome[ICD10: G89.4] Diagnosis: Alcohol dependence, uncomplicated[ICD10: F10.20] Diagnosis: Major depressive disorder, recurrent, moderate[ICD10: F33.1] Leydi Jacobo MD, [facility] CPT-4: 39327 09/29/2017 ([id number]) 75490 EST. P ATIENT, LEVEL IV Diagnosis: Chronic pain syndrome[ICD10: G89.4] Diagnosis: Alcohol dependence, uncomplicated[ICD10: F10.20] Diagnosis: Major depressive disorder, recurrent, moderate[ICD10: F33.1] Leydi Jacobo MD, [facility] CPT-4: 47887 08/11/2017 ([id number]) 17878 EST. P ATIENT, LEVEL III Diagnosis: Chronic pain syndrome[ICD10: G89.4] Diagnosis: Major depressive disorder, recurrent, moderate[ICD10: F33.1] Leydi Jacobo MD, [facility] CPT-4: 84624 06/09/2017 ([id number]) 42049 EST. P ATIENT, LEVEL III Diagnosis: Chronic pain syndrome[ICD10: G89.4] Diagnosis: Pain in left knee[ICD10: M25.562] Leydi Jacobo MD, [facility] CPT- 4: 75124 04/07/2017 90786 EST. PATIENT, LEVEL II Diagnosis: Superficial foreign body of left upper arm, initial encounter[ICD10: S40.852A] Diagnosis: Cellulitis of left upper limb[ICD10: L03.114] Leydi Jacobo MD, [facility] CPT-4: 72905 11/17/2016 20685 EST. PATIENT, LEVEL II Diagnosis: Cellulitis of left upper limb[ICD10: L03.114] Leydi Jacobo MD, [facility] CPT-4: 12302 11/10/2016 ([id number]) 67865 EST. P ATIENT, LEVEL III Diagnosis: Chronic pain syndrome[ICD10: G89.4] Diagnosis: Major depressive disorder, recurrent, moderate[ICD10: F33.1] Leydi Jacobo MD, [facility] CPT-4: 79263 10/14/2016 22450 EST. PATIENT, LEVEL IV Diagnosis: Psychophysiologic insomnia[ICD10: F51.04] Diagnosis: Major depressive disorder, recurrent, moderate[ICD10: F33.1] Diagnosis: Alcohol dependence, uncomplicated[ICD10: F10.20] Diagnosis: Chronic pain syndrome[ICD10: G89.4] Leydi Jacobo MD, [facility] CPT-4: 82926 09/16/2016 ([id number]) 40484 EST. P ATIENT, LEVEL III Diagnosis: Pain in left shoulder[ICD10: M25.512] Diagnosis: Major depressive disorder, recurrent, moderate[ICD10: F33.1] Diagnosis: Psychophysiologic insomnia[ICD10: F51.04] Leydi Jaocbo MD, [facility] CPT-4: 34102 08/19/2016 ([id number]) 74998 EST. P ATIENT, LEVEL III Diagnosis: Gastro-esophageal reflux disease without esophagitis[ICD10: K21.9] Diagnosis: Hypothyroidism, unspecified[ICD10: E03.9] Leydi Jacobo MD, [facility] CPT-4: 44298 06/17/2016 ([id number]) 09672 EST. P ATIENT, LEVEL IV Diagnosis: Gastro-esophageal reflux disease without esophagitis[ICD10: K21.9] Diagnosis: Hypothyroidism, unspecified[ICD10: E03.9] Diagnosis: Major depressive disorder, recurrent, moderate[ICD10: F33.1] Leydi Jacobo MD, [facility] CPT-4: 07068 05/12/2016 ([id number]) 68374 EST. P ATIENT, LEVEL III Diagnosis: Cervicalgia[ICD10: M54.2] Diagnosis: Hypothyroidism, unspecified[ICD10: E03.9] Diagnosis: Other male erectile dysfunction[ICD10: N52.8] Leydi Jacobo MD, [facility] CPT-4: 57077 02/16/2016 ([id number]) 71695 EST. P ATIENT, LEVEL III Diagnosis: Lumbago with sciatica, unspecified side[ICD10: M54.40] Diagnosis: Other male erectile dysfunction[ICD10: N52.8] Leydi Jacobo MD, [facility] CPT-4: 41570 11/17/2015 ([id number]) 86535 EST. P ATIENT, LEVEL III Diagnosis: Lumbago with sciatica, unspecified side[ICD10: M54.40] Diagnosis: Hypothyroidism, unspecified[ICD10: E03.9] Diagnosis: Other male erectile dysfunction[ICD10: N52.8] Leydi Jacobo MD, [facility] CPT-4: 56425 08/28/2015 ([id number]) 37468 EST. P ATIENT, LEVEL III Diagnosis: Back pain, chronic[ICD9: 724.5] Diagnosis: Depression[ICD9: 311] Diagnosis: Hypothyroid[ICD9: 244.9] Diagnosis: Bilateral calf pain[ICD9: 729.5] [facility] CPT-4: 26653 05/28/2015 ([id number]) OFFICE VISI T, NEW - LEVEL 4 Diagnosis: Back pain, chronic[ICD9: 724.5] Diagnosis: Depression[ICD9: 311] Diagnosis: Hypothyroid[ICD9: 244.9] [facility] CPT-4: 90040 04/23/2015 Plan of Care Planned Activity Notes [...] thyroid ultrasound 01/07/2019 Appointment: Leydi Hightower WPtel: [facility] [place] [phone] (30 min) Complex 01/07/2019 Patient Education: Patient [...] the office 12/27/2018 Appointment: Leydi Hightower WPtel: [phone] (15 min) Moderate 12/27/2018 Patient Education: [...] medications. 11/05/2018 Appointment: Leydi Hightower WPtel: [phone] [phone] (30 min) Complex 11/05/2018 Patient Education: [...] control. 09/27/2018 Appointment: Leydi Hightower WPtel: [phone] [phone] (15 min) Moderate 09/27/2018 Patient Education: Patient [...] care surrogate. 09/17/2018 Appointment: Leydi Hightower WPtel: [phone] [phone] [facility] - Annual Wellness Visit 09/17/2018 Patient Education: Patient Medication Summary Completed 09/17/2018 Visit Plan: Chronic Pain Syndrome - pt has chronic pain - has been maintained on current medications, has not sought out other medications, only uses PRN pain medications as directed, and understands the consequences of over-medication. 09/03/2018 Appointment: Leydi Hightower WPtel: [phone] [phone] (30 min) Complex 09/03/2018 Patient Education: Patient [...] exposure. No change in current medications. Fatigue-weight vhuz-UO-lbszy labs including testosterone level 07/05/2018 Visit Plan: [...] exposure. No change in current medications. Fatigue-weight qkot-EX-maexf labs including testosterone level 07/05/2018 Appointment: Leydi Hightower WPtel: [phone] [phone] (15 min) Moderate 07/05/2018 Patient Education: [...] BID 05/04/2018 Appointment: Leydi Hightower WPtel: [phone] [phone] (15 min) Moderate 05/04/2018 Patient Education: Patient [...] pain. 03/28/2018 Appointment: Denae Martínez WPtel: [phone] [facility] (30 min) Complex 03/28/2018 Appointment: Nurse Visit [...] time. 02/27/2018 Appointment: Leydi Hightower WPtel: [phone] [phone] [place] (15 min) Moderate 02/27/2018 Patient Education: [...] control. 12/01/2017 Appointment: Denae Martínez WPtel: [phone] [facility] (30 min) Complex 12/01/2017 Patient Education: Patient [...] treatment 09/29/2017 Appointment: Leydi Hightower WPtel: [phone] [phone] [place] (30 min) Complex 09/29/2017 Patient Education: [...] ider 08/11/2017 Appointment: Leydi Hightower WPtel: [phone] [phone] (30 min) Complex 08/11/2017 Patient Education: [...] 06/09/2017 Appointment: Leydi Hightower WPtel: [phone] (30 min) Complex 06/09/2017 Patient Education: [...] resolve 11/17/2016 Appointment: Leydi Hightower WPtel: [phone] (30 min) Complex 11/17/2016 Patient Education: [...] 11/10/2016 Appointment: Leydi Hightower WPtel: [phone] (30 min) Complex 11/10/2016 Patient Education: [...] of plan. 10/14/2016 Appointment: Leydi Hightower WPtel: [address] [place] [phone] (30 min) Complex 10/14/2016 Patient Education: Patient [...] try 09/16/2016 Appointment: Leydi Hightower WPtel: [phone] (30 min) Complex 09/16/2016 Patient Education: Patient Medication Summary Completed 09/16/2016 Visit Plan: Left shoulder and elbow pain-xray shoulder and elbow Iiahxnhjot-okbtcfmk-xfqjaqitcmus-d/c trazodone-start remeron at bedtime Pt has been [...] patient. 08/19/2016 Appointment: Leydi Hightower WPtel: [phone] [place] [address] (30 min) Complex 08/19/2016 Patient Education: Patient [...] Completed 06/17/2016 Appointment: Leydi Hightower WPtel: [facility] [place] [phone] (30 min) Complex 06/09/2016 Visit Plan: Esophageal [...] of control. 05/12/2016 Appointment: Leydi Hightower WPtel: [phone] (30 min) Complex 05/12/2016 Patient Education: Patient [...] in office. 05/28/2015 Appointment: Leydi Hightower WPtel: [phone] [phone] (30 min) Complex 05/28/2015 Patient Education: Patient [...] Care Plan: COMPLETE CBC AUTOMATED LOINC : 21436-9 Ordered 04/23/2015 Instructions Comment DECREASE LEVOTHYROXI NE [...] exposure. No change in current medications. Fatigue-weight ywdu-EP-ithgy labs including testosterone level . Chronic Pain [...] exposure. No change in current medications. Fatigue-weight fkgf-KL-luwxv labs including testosterone level Get Immodium over [...] and elbow pain-xray shou lder and elbow Twniojognf-ybwlsdlm-sglxrwochwsa-d/c trazodone-start remeron at bedtime Pt has been [...] not completely resolve RECOMMEND SLEEP STUD Y PEPEQ DECREASE LEVOTHYROXINE TO 188MCG DAILY . Chronic [...] Patient refuses at this time. . 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 Chronic Pain Syndrome [...]
--- OUTSIDE RECORDS SUMMARY | 2020-03-17 15:01 | XMS REPORT | CCD ---
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 Name Role Phone PP Unavailable CCM Unavailable Summary Purpose Interface Exchange Insurance Providers Payer name Policy type / Coverage type Covered libertarian ID Effective Begin Date Effective End Date WPS Medicare Part B Medicare Part B [id number] Unknown [facility] icare Part B [id number] Un known Family history Father Diagnosis Age At Onset Colon cancer Unknown Social History Social History Element Codes Description Effective Dates Employment Unknown Dell nt[employer] unemployed Before disability 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 09/27/2018 On Disability Unknown Yes 09/27/2018 Marital status Unknown D ivorced 04/23/[address]: 107695511 Never smoker 04/23/[address]: 206441 Currently drinks alcohol occasionally drinks 04/23/2015 Allergies, [...] Date Stop Date Sta tus Fill Instructions trazodone 50 mg tablet RxNorm: 867220 TAKE ONE TABLET BY MOUTH EVERY NIGHT AT BEDTIME AND ONE-HALF TABLET BY MOUTH NEEDED 01/14/2019 03/14/2019 Active oxymorphone 5 mg tablet RxNorm: 871039 1 Tablet(s) PO Q6 PRN 01/07/2019 03/07/2019 Active morphine 30 mg table t, crush resistant, extended release RxNorm: 0863793 1 Tablet(s) PO BID 01/07/2019 03/07/2019 Active doxycycline hyclate 100 mg tablet RxNorm: 8949009 1 Tablet(s) PO BID 01/01/2019 01/10/2019 Inactive cyanocobalamin (vit B-12) 1,000 mcg/mL injection solution RxNorm: 649315 1 Milliliter(s) Inj 12/27/2018 12/27/2018 Inactive baclofen 10 mg tablet RxNorm: 498327 TAKE ONE TABLET BY MOUTH THREE TIMES A D AY NEEDED 11/29/2018 03/28/2019 Active Request already responded to by other means (e.g. phone or fax) baclofen 10 mg tablet RxNorm: 410198 Tablet(s) TAKE ONE TABLET BY MOUTH THREE TIMES A DAY NEEDED 11/28/2018 11/28/2018 Inactive doxycycline hyclate 100 mg tablet RxNorm: 6905410 1 Tablet(s) PO BID 11/14/2018 11/23/2018 Inactive trazodone 50 mg tablet RxNorm: 278943 TAKE ONE TABLET BY MOUTH EVERY NIGHT AT BEDTIME AND ONE-HALF TABLET BY MOUTH NEEDED 11/12/2018 12/21/2018 Inactive tizanidine 4 mg tablet RxNorm: 842848 TAKE ONE TABLET BY MOUTH THREE TIMES A D AY NEEDED 10/22/2018 02/18/2019 Active diclofenac sodium 75 mg tablet,delayed release RxNorm: 490650 TAKE ONE TABLET BY [facility] TWICE A DAY 10/15/2018 02/11/2019 Active Lasix 20 mg tablet RxNorm: 905519 1 Tablet(s) PO daily as needed 10/10/2018 11/08/2018 In active potassium chloride E R 10 mEq tablet,extended release RxNorm: 540726 1 Tablet(s) PO daily as needed to take with lasix for inceased edema 10/10/2018 11/08/2018 Inactive potassium chloride E R 10 mEq tablet,extended release RxNorm: 606638 1 Tablet(s) PO daily as needed to take with lasix for inceased edema 10/10/2018 10/09/2018 Inactive Lasix 20 mg tablet RxNorm: 641185 1 Tablet(s) PO daily as needed 10/10/2018 10/09/2018 In active doxycycline hyclate 100 mg tablet RxNorm: 0892764 1 Tablet(s) PO BID 09/27/2018 10/10/2018 Inactive Remeron 15 mg tablet RxNorm: 909318 1.5 Tablet(s) PO QPM TAKE ONE TABLET BY MOUTH EVERY NIGHT AT BEDTIME 09/18/2018 12/16/2018 Inactive baclofen 10 mg tablet RxNorm: 653453 TAKE ONE TABLET BY MOUTH THREE TIMES A D AY NEEDED 09/12/2018 11/10/2018 Inactive Remeron 15 mg tablet RxNorm: 842086 1.5 Tablet(s) PO QPM TAKE ONE TABLET BY MOUTH EVERY NIGHT AT BEDTIME 09/03/2018 09/17/2018 Inactive oxymorphone 5 mg tablet RxNorm: 250596 1 Tablet(s) PO Q6 PRN 09/03/2018 11/01/2018 Inactive morphine 30 mg table t, crush resistant, extended release RxNorm: 4628054 1 Tablet(s) PO BID 09/03/2018 11/01/2018 Inactive trazodone 50 mg tablet RxNorm: 651282 TAKE ONE TABLET BY MOUTH EVERY NIGHT AT BEDTIME AND ONE-HALF TABLET BY MOUTH NEEDED 09/03/2018 10/12/2018 Inactive tizanidine 4 mg tablet RxNorm: 021717 TAKE ONE TABLET BY MOUTH THREE TIMES A D AY NEEDED 08/20/2018 10/18/2018 Inactive Protonix 40 mg table t,delayed release RxNorm: 901149 TAKE ONE TABLET BY MO UTH DAILY 08/10/2018 02/05/2019 Ac tive Carafate 1 gram tablet RxNorm: 552859 TAKE ONE TABLET BY MOUTH BEFORE MEALS AN D AT BEDTIME NEEDED FOR HEARTBURN 07/31/2018 12/27/2018 Inactive Protonix 40 mg table t,delayed release RxNorm: 973562 1 Tablet(s) BID 07/24/2018 07/23/2018 Inactive Protonix 40 mg table t,delayed release RxNorm: 024722 1 Tablet(s) daily 07/24/2018 08/09/2018 In active liothyronine 5 mcg t ablet RxNorm: 474041 TAKE ONE TABLET BY [facility] DAILY 07/19/2018 01/09/2019 In active baclofen 10 mg tablet RxNorm: 525067 TAKE ONE TABLET BY MOUTH THREE TIMES A D AY NEEDED 07/12/2018 09/09/2018 Inactive levothyroxine 175 mc g tablet RxNorm: 261114 1 Tablet(s) PO daily 07/11/2018 11/07/2018 Inactive Vitamin D2 50,000 un it capsule RxNorm: 4810148 1 Capsule(s) PO QW 07/11/2018 10/02/2018 Inactive trazodone 50 mg tablet RxNorm: 284305 TAKE ONE TABLET BY MOUTH EVERY NIGHT AT BEDTIME AND ONE-HALF TABLET BY MOUTH NEEDED 07/11/2018 08/19/2018 Inactive Vitamin D2 50,000 un it capsule RxNorm: 6675844 1 Capsule(s) PO QW 07/11/2018 07/10/2018 Inactive morphine 30 mg table t, crush resistant, extended release RxNorm: 0758359 1 Tablet(s) PO BID 07/05/2018 09/02/2018 Inactive oxymorphone 5 mg tablet RxNorm: 864387 1 Tablet(s) PO Q6 PRN 07/05/2018 09/02/2018 Inactive bupropion HCl XL 300 mg 24 hr tablet, extended release RxNorm: 946451 TAKE ONE TABLET BY MOUTH DAILY 06/27/2018 12/23/2018 Inactive Remeron 15 mg tablet RxNorm: 302610 TAKE ONE TABLET BY MOUTH EVERY NIGHT AT BEDTIME 06/27/2018 09/02/2018 Inactive tizanidine 4 mg tablet RxNorm: 425005 TAKE ONE TABLET BY MOUTH THREE TIMES A D AY NEEDED 06/20/2018 08/18/2018 Inactive doxycycline hyclate 100 mg tablet RxNorm: 5324808 1 Tablet(s) PO BID 06/18/2018 07/01/2018 Inactive Protonix 40 mg table t,delayed release RxNorm: 385205 TAKE ONE TABLET BY [facility] DAILY 06/11/2018 07/23/2018 In active doxycycline hyclate 100 mg tablet RxNorm: 6902681 1 Tablet(s) PO BID 05/22/2018 06/04/2018 Inactive baclofen 10 mg tablet RxNorm: 626426 TAKE ONE TABLET BY MOUTH THREE TIMES A D AY NEEDED 05/14/2018 07/11/2018 Inactive diclofenac sodium 75 mg tablet,delayed release RxNorm: 281039 TAKE ONE TABLET BY [facility] TWICE A DAY 05/07/2018 10/03/2018 Inactive oxymorphone 5 mg tablet RxNorm: 479226 1 Tablet(s) PO Q6 PRN 05/04/2018 07/02/2018 Inactive morphine 30 mg table t, crush resistant, extended release RxNorm: 7148115 1 Tablet(s) PO BID 05/04/2018 07/02/2018 Inactive doxycycline hyclate 100 mg tablet RxNorm: 240968 1 Tablet(s) PO BID 04/24/2018 04/23/2018 Inactive doxycycline hyclate 100 mg tablet RxNorm: 1885835 1 Tablet(s) PO BID 04/24/2018 05/03/2018 Inactive baclofen 10 mg tablet RxNorm: 730561 TAKE ONE TABLET BY MOUTH THREE TIMES A D AY NEEDED 04/13/2018 05/12/2018 Inactive trazodone 50 mg tablet RxNorm: 674674 TAKE ONE TABLET BY MOUTH EVERY NIGHT AT BEDTIME AND ONE-HALF TABLET BY MOUTH NEEDED 04/09/2018 06/07/2018 Inactive Questran 4 gram powd er for susp in a packet RxNorm: 407192 1 packet PO BID 04/06/2018 06/04/2018 In active Questran 4 gram powd er for susp in a packet RxNorm: 002143 1 packet PO BID 04/06/2018 04/05/2018 In active Carafate 1 gram tablet RxNorm: 914631 1 Tablet(s) PO AC & HS as needed for hea rtburn 03/28/2018 04/26/2018 Inactive baclofen 10 mg tablet RxNorm: 189124 TAKE ONE TABLET BY MOUTH THREE TIMES A D AY NEEDED 03/16/2018 04/12/2018 Inactive Protonix 40 mg table t,delayed release RxNorm: 154721 TAKE ONE TABLET BY [facility] DAILY 03/16/2018 06/10/2018 In active oxymorphone 5 mg tablet RxNorm: 090941 1 Tablet(s) PO Q6 PRN 02/27/2018 04/27/2018 Inactive morphine 30 mg table t, crush resistant, extended release RxNorm: 0687322 1 Tablet(s) PO BID 02/27/2018 04/27/2018 Inactive Belviq XR 20 mg tabl et,extended release RxNorm: 5740560 1 Tablet(s) PO daily 02/27/2018 01/06/2019 In active levothyroxine 100 mc g tablet RxNorm: 089695 1 Tablet(s) PO daily 02/27/2018 07/10/2018 Inactive take with 88mcg to = 188mcg daily levothyroxine 88 mcg tablet RxNorm: 873144 1 Tablet(s) PO daily 02/27/2018 07/10/2018 Inactive take with 100mcg to = 188mcg daily morphine 30 mg table t, crush resistant, extended release RxNorm: 3889248 1 Tablet(s) PO BID 02/14/2018 02/26/2018 Inactive levothyroxine 200 mc g tablet RxNorm: 970188 Tablet(s) TAKE ONE TA BLET BY MOUTH DAILY 01/18/2018 02/26/2018 Inactive Updated script baclofen 10 mg tablet RxNorm: 471113 Tablet(s) TAKE ONE TABLET BY MOUTH THREE TIMES A DAY NEEDED 01/15/2018 02/13/2018 Inactive morphine 30 mg table t, crush resistant, extended release RxNorm: 1313458 1 Tablet(s) PO BID 01/15/2018 02/13/2018 Inactive tizanidine 4 mg tablet RxNorm: 650406 TAKE ONE TABLET BY MOUTH THREE TIMES A D AY NEEDED 01/02/2018 04/01/2018 Inactive Request already responded t o by other means (e.g. phone or fax) bupropion HCl XL 300 mg 24 hr tablet, extended release RxNorm: 197515 TAKE ONE TABLET BY MOUTH DAILY 12/29/2017 06/26/2018 Inactive Tamiflu 75 mg capsule RxNorm: 761545 1 Capsule(s) PO BID 12/27/2017 12/31/2017 Inactive Tamiflu 75 mg capsule RxNorm: 141802 1 Capsule(s) PO BID 12/27/2017 12/26/2017 Inactive tizanidine 4 mg tablet RxNorm: 189454 1 Tablet(s) PO TID as needed 12/25/2017 01/01/2018 Inactive levothyroxine 175 mc g tablet RxNorm: 064701 1 Tablet(s) PO daily 12/14/2017 12/13/2017 Inactive levothyroxine 175 mc g tablet RxNorm: 189695 1 Tablet(s) PO daily 12/14/2017 01/17/2018 Inactive baclofen 10 mg tablet RxNorm: 713491 Tablet(s) TAKE ONE TABLET BY MOUTH THREE TIMES A DAY NEEDED 12/13/2017 01/11/2018 Inactive baclofen 10 mg tablet RxNorm: 729407 TAKE ONE TABLET BY MOUTH THREE TIMES A D AY NEEDED 12/13/2017 12/12/2017 Inactive morphine 30 mg table t, crush resistant, extended release RxNorm: 5184927 1 Tablet(s) PO BID 12/12/2017 01/14/2018 Inactive clonazepam 1 mg tablet RxNorm: 655637 1/2 Tablet(s) PO daily 12/01/2017 08/27/2018 Inactive trazodone 50 mg tablet RxNorm: 543039 1/2 to 1 Tablet(s) QHS as needed 12/01/2017 03/30/2018 In active Opana ER 15 mg table t, crush resistant, extended release RxNorm: 969774 1 Tablet(s) PO Q12H 12/01/2017 02/13/2018 Inactive oxymorphone 5 mg tablet RxNorm: 956614 1 Tablet(s) PO Q6 PRN 12/01/2017 02/26/2018 Inactive Remeron 15 mg tablet RxNorm: 001779 Tablet(s) TAKE ONE TABLET BY MOUTH EVERY NIGHT AT BEDTIME 12/01/2017 02/28/2018 Inactive trazodone 50 mg tablet RxNorm: 685485 1/2 Tablet(s) as needed 1 Tablet(s) PO Q HS 12/01/2017 11/30/2017 In active clonazepam 1 mg tablet RxNorm: 336201 1/2 Tablet(s) PO daily 11/30/2017 11/30/2017 Inactive Remeron 15 mg tablet RxNorm: 950899 TAKE ONE TABLET BY MOUTH EVERY NIGHT AT BEDTIME 11/29/2017 11/30/2017 Inactive levothyroxine 200 mc g tablet RxNorm: 897895 TAKE ONE TABLET BY MO UTH DAILY 11/15/2017 12/13/2017 In active baclofen 10 mg tablet RxNorm: 982281 TAKE ONE TABLET BY MOUTH THREE TIMES A D AY NEEDED 11/07/2017 12/06/2017 Inactive diclofenac sodium 75 mg tablet,delayed release RxNorm: 294931 1 Tablet(s) PO BID 11/07/2017 05/05/2018 In active liothyronine 5 mcg t ablet RxNorm: 554986 TAKE ONE TABLET BY [facility] DAILY 10/27/2017 07/18/2018 In active tizanidine 4 mg tablet RxNorm: 421368 1 Tablet(s) PO TID as needed 10/18/2017 12/16/2017 Inactive oxymorphone 5 mg tablet RxNorm: 869839 1 Tablet(s) PO Q6 PRN 09/29/2017 11/27/2017 Inactive morphine 30 mg table t, crush resistant, extended release RxNorm: 2013434 1 Tablet(s) PO BID 09/29/2017 11/28/2017 Inactive baclofen 10 mg tablet RxNorm: 338907 1 Tablet(s) PO TID as needed 09/11/2017 10/10/2017 Inactive baclofen 10 mg tablet RxNorm: 382373 1 Tablet(s) PO TID as needed 08/11/2017 09/09/2017 Inactive Opana ER 15 mg table t, crush resistant, extended release RxNorm: 836579 1 Tablet(s) PO Q12H 08/11/2017 09/28/2017 Inactive Remeron 15 mg tablet RxNorm: 708719 TAKE ONE TABLET BY MOUTH EVERY NIGHT AT BEDTIME 08/02/2017 10/30/2017 Inactive oxymorphone 5 mg tablet RxNorm: 146731 1 Tablet(s) PO Q6 PRN 08/02/2017 09/28/2017 Inactive Opana ER 5 mg tablet , crush resistant, extended release RxNorm: 237405 1 Tablet(s) PO Q6 PRN 08/01/2017 08/10/2017 Inactive Protonix 40 mg table t,delayed release RxNorm: 972071 TAKE ONE TABLET BY [facility] DAILY 06/26/2017 10/23/2017 In active Protonix 40 mg table t,delayed release RxNorm: 567708 TAKE ONE TABLET BY [facility] DAILY 06/26/2017 06/25/2017 In active bupropion HCl XL 300 mg 24 hr tablet, extended release RxNorm: 198014 TAKE ONE TABLET BY MOUTH DAILY 06/13/2017 12/09/2017 Inactive tizanidine 4 mg tablet RxNorm: 513604 1 Tablet(s) PO TID as needed 06/13/2017 06/12/2017 Inactive tizanidine 4 mg tablet RxNorm: 816672 1 Tablet(s) PO TID as needed 06/13/2017 09/10/2017 Inactive baclofen 10 mg tablet RxNorm: 877329 1 Tablet(s) PO TID as needed 06/13/2017 07/12/2017 Inactive Opana ER 15 mg table t, crush resistant, extended release RxNorm: 086183 1 Tablet(s) PO Q12H 06/09/2017 08/07/2017 Inactive Opana ER 5 mg tablet , crush resistant, extended release RxNorm: 506169 1 Tablet(s) PO Q6 PRN 06/09/2017 07/31/2017 Inactive diclofenac sodium 75 mg tablet,delayed release RxNorm: 617567 1 Tablet(s) PO BID 06/09/2017 09/06/2017 In active clonazepam 1 mg tablet RxNorm: 748214 1/2 Tablet(s) PO daily 05/24/2017 11/18/2017 Inactive bupropion HCl XL 300 mg 24 hr tablet, extended release RxNorm: 633523 TAKE ONE TABLET BY MOUTH DAILY 03/16/2017 06/12/2017 Inactive clonazepam 1 mg tablet RxNorm: 504145 1/2 Tablet(s) PO daily 02/22/2017 05/18/2017 Inactive Remeron 15 mg tablet RxNorm: 702380 TAKE ONE TABLET BY MOUTH EVERY NIGHT AT BEDTIME 02/06/2017 2017 Inactive Protonix 40 mg table t,delayed release RxNorm: 433088 TAKE ONE TABLET BY [facility] DAILY 01/26/2017 06/24/2017 In active mupirocin 2 % topica l ointment RxNorm: 427709 1 Application TOP BID 01/12/2017 01/18/2017 Inactive Bactrim DS 800 mg-16 0 mg tablet RxNorm: 606526 1 Tablet(s) PO BID 11/17/2016 11/23/2016 Inactive mupirocin 2 % topica l ointment RxNorm: 837017 1 Application TOP BID 11/10/2016 11/16/2016 Inactive Bactrim DS 800 mg-16 0 mg tablet RxNorm: 285000 1 Tablet(s) PO BID 11/10/2016 11/16/2016 Inactive bupropion HCl XL 300 mg 24 hr tablet, extended release RxNorm: 570424 TAKE ONE TABLET BY MOUTH DAILY 11/07/2016 03/06/2017 Inactive liothyronine 5 mcg t ablet RxNorm: 644156 1 Tablet(s) PO daily 11/01/2016 10/26/2017 Inactive levothyroxine 200 mc g tablet RxNorm: 224611 1 Tablet(s) PO daily 10/04/2016 09/28/2017 Inactive clonazepam 1 mg tablet RxNorm: 201351 1/2 Tablet(s) PO daily 09/21/2016 03/18/2017 Inactive clonazepam 1 mg tablet RxNorm: 191993 1/2 Tablet(s) PO daily 09/16/2016 09/20/2016 Inactive Abilify 2 mg tablet RxNorm: 984689 1 Tablet(s) PO daily 09/16/2016 10/13/2016 Inactive trazodone 50 mg tablet RxNorm: 680234 1/2 Tablet(s) as needed 1 Tablet(s) PO Q HS 09/16/2016 01/13/2017 In active morphine 15 mg immed iate release tablet RxNorm: 391925 1 Tablet(s) PO Q6 PRN 09/16/2016 04/06/2017 In active baclofen 10 mg tablet RxNorm: 263367 1 Tablet(s) PO TID as needed 09/16/2016 06/12/2017 Inactive MS Contin 30 mg tabl et,extended release RxNorm: 469684 1 Tablet(s) PO Q12H 09/16/2016 04/06/2017 In active Remeron 15 mg tablet RxNorm: 784686 1 Tablet(s) PO QHS 08/19/2016 09/15/2016 Inactive levothyroxine 200 mc g tablet RxNorm: 044070 1 Tablet(s) PO daily 08/11/2016 10/03/2016 Inactive bupropion HCl XL 300 mg 24 hr tablet, extended release RxNorm: 206382 TAKE ONE TABLET BY MOUTH DAILY 08/11/2016 11/06/2016 Inactive Protonix 40 mg table t,delayed release RxNorm: 857359 1 Tablet(s) PO daily 06/17/2016 12/13/2016 In active bupropion HCl XL 300 mg 24 hr tablet, extended release RxNorm: 941385 1 Tablet(s) PO daily 05/12/2016 07/10/2016 Inactive bupropion HCl XL 300 mg 24 hr tablet, extended release RxNorm: 256577 1 Tablet(s) PO daily 05/12/2016 05/11/2016 Inactive Cialis 20 mg tablet RxNorm: 427943 1 Tablet(s) PO PRN 02/16/2016 No Stop Date Active not more than 1 tab in 24 hours morphine ER 10 mg ca psule,extended release pellets RxNorm: 553468 1 Tablet(s) PO Q6 as needed 02/16/2016 11/16/2016 Inactive clonazepam 1 mg tablet RxNorm: 381482 1/2 Tablet(s) PO BID 02/16/2016 09/15/2016 Inactive trazodone 50 mg tablet RxNorm: 468662 1/2 Tablet(s) as needed 1 Tablet(s) PO Q HS 02/16/2016 08/18/2016 In active trazodone 50 mg tablet RxNorm: 602263 1/2 Tablet(s) 1 Tablet(s) PO QHS 11/17/2015 02/15/2016 In active trazodone 50 mg tablet RxNorm: 705457 1 Tablet(s) PO QHS 10/19/2015 11/16/2015 Inactive levothyroxine 200 mc g tablet RxNorm: 492175 1 Tablet(s) PO daily 10/02/2015 08/10/2016 Inactive Wellbutrin XL 150 mg 24 hr tablet, extended release RxNorm: 971829 1 Tablet(s) PO daily 10/02/2015 05/11/2016 Inactive levothyroxine 200 mc g tablet RxNorm: 212980 1 Tablet(s) PO daily 09/30/2015 10/01/2015 Inactive Wellbutrin XL 150 mg 24 hr tablet, extended release RxNorm: 246049 1 Tablet(s) PO daily 09/30/2015 10/01/2015 Inactive trazodone 50 mg tablet RxNorm: 222212 1 Tablet(s) PO QHS 09/11/2015 10/10/2015 Inactive trazodone 50 mg tablet RxNorm: 465703 1 Tablet(s) PO QHS 09/11/2015 09/10/2015 Inactive Cymbalta 30 mg capsu le,delayed release RxNorm: 832016 1 Capsule(s) PO daily 09/07/2015 11/16/2015 In active Cymbalta 60 mg capsu le,delayed release RxNorm: 937359 1 Capsule(s) PO daily 08/31/2015 08/30/2015 In active Cymbalta 30 mg capsu le,delayed release RxNorm: 653020 1 Capsule(s) PO daily take with 60mg to make 90 mg daily 08/31/2015 09/06/2015 Inactive Cymbalta 30 mg capsu le,delayed release RxNorm: 883892 1 Capsule(s) PO daily take with 60mg to make 90 mg daily 08/31/2015 08/30/2015 Inactive Cymbalta 60 mg capsu le,delayed release RxNorm: 338670 1 Capsule(s) PO daily x 7 days and then increase to 90mg daily 08/31/2015 09/07/2015 Inactive levothyroxine 200 mc g tablet RxNorm: 589885 1 Tablet(s) PO daily 08/14/2015 09/29/2015 Inactive Wellbutrin XL 150 mg 24 hr tablet, extended release RxNorm: 683156 1 Tablet(s) PO daily 07/14/2015 09/29/2015 Inactive Cialis 20 mg tablet RxNorm: 695068 1 Tablet(s) PO PRN 07/02/2015 02/15/2016 Inactive not more than 1 tab in 24 hours liothyronine 5 mcg t ablet RxNorm: 483606 1 Tablet(s) PO daily 2015 05/29/2016 Inactive clonazepam 1 mg tablet RxNorm: 208825 1 Tablet(s) PO TID 2015 02/15/2016 Inactive minocycline 50 mg ta blet RxNorm: 485985 1 Tablet(s) PO daily 2015 05/11/2016 Inactive Wellbutrin XL 150 mg 24 hr tablet, extended release RxNorm: 055893 1 Tablet(s) PO daily 04/23/2015 07/13/2015 Inactive levothyroxine 200 mc g tablet RxNorm: 258138 1 Tablet(s) PO daily 04/23/2015 08/13/2015 Inactive Aleve oral RxNorm: 357461 oral No Start Date Active Tylenol 500 mg RxNorm: oral No Start Date Active morphine ER 15 mg ta blet,extended release RxNorm: 935697 oral No Start Date 11/16/2016 Inactive Trazadone 25 mg RxNorm: 2 PO daily No Start Date 09/11/2015 Inactive diclofenac oral RxNorm: 3355 oral No Start Date 05/04/2018 Inactive clonazepam 1 mg tablet RxNorm: 186744 1 Tablet(s) PO QHS No Start Date 06/04/2015 Inactive Wellbutrin XL 150 mg 24 hr tablet, extended release RxNorm: 809885 1 Tablet(s) PO daily No Start Date 04/22/2015 Inactive minocycline 50 mg ta blet RxNorm: 351850 1 Tablet(s) PO daily No Start Date 06/04/2015 Inactive methadone 5 mg tablet RxNorm: 598851 1 Tablet(s) PO Q8 No Start Date 02/15/2016 Inactive Protonix 40 mg table t,delayed release RxNorm: 142710 Tablet(s) PO daily No Start Date 06/16/2016 Inactive Opana ER 15 mg table t, crush resistant, extended release RxNorm: 522049 1 Tablet(s) PO Q12H No Start Date 06/08/2017 Inactive MS Contin 30 mg tabl et,extended release RxNorm: 050673 1 Tablet(s) PO Q12H No Start Date 02/15/2016 Inactive Opana ER 15 mg table t, crush resistant, extended release RxNorm: 742181 1 Tablet(s) PO BID No Start Date 09/15/2016 Inactive liothyronine 5 mcg t ablet RxNorm: 151562 1 Tablet(s) PO daily No Start Date 06/04/2015 Inactive Cialis 20 mg tablet RxNorm: 215280 1 Tablet(s) PO PRN No Start Date 07/01/2015 Inactive not more than 1 tab in 24 hours baclofen 10 mg tablet RxNorm: 870891 1 Tablet(s) PO TID as needed No Start Date 05/11/2016 Inactive morphine 15 mg immed iate release tablet RxNorm: 118864 1 Tablet(s) PO Q6 PRN as needed No Start Date 02/15/2016 Inactive levothyroxine 200 mc g tablet RxNorm: 251598 1 Tablet(s) PO daily No Start Date 04/22/2015 Inactive Opana ER 5 mg tablet , crush resistant, extended release RxNorm: 497555 1 Tablet(s) PO Q6 No Start Date 06/08/2017 Inactive Medication Administered Medication Codes Instruc tions Start Date Status cyanocobalamin (vit B-12) 1,000 mcg/mL injection solut ion RxNorm: 764415 1Milliliter 12/27/2018 No longer Active Immunizations No Immunization data Assessments Condition Codes Effectiv e Dates Hypothyroidism, unspecified ICD-10: E03.9 ICD-9: 244.9 01/07/2019 Major depressive disorder, recurrent, moderate ICD-10: F33.1 ICD-9: 296.32 01/07/2019 Chronic pain syndrome ICD-10: G89.4 ICD-9: 338.4 01/07/2019 Encounter for screening for lipoid disorders ICD-10: Z13.220 ICD-9: V77.91 01/07/2019 Vitamin B12 deficiency anemia, unspecified ICD-10: D51.9 ICD-9: 281.1 12/27/2018 Obstructive sleep apnea (adult) (pediatric) ICD-10: G47.33 ICD-9: 327.23 12/27/2018 Other obesity due to excess calories ICD-10: E66.09 ICD-9: 278.00 09/27/2018 Other fatigue ICD-10: R53.83 ICD-9: 780.79 09/27/2018 Encounter for general adult medical exam ination with abnormal findings ICD-10: Z00.01 ICD-9: V70.0 09/17/2018 Other male erectile dysfunction ICD- 10: N52.8 ICD-9: 607.84 07/05/2018 Encounter for screening for malignant neoplasm of pros [place] ICD-10: Z12.5 ICD-9: V76.44 07/05/2018 Other malaise ICD-10: R53.81 ICD-9: 780.79 03/28/2018 Melena ICD-10: K92.1 ICD-9: 578.1 03/28/2018 Pain in unspecified joint ICD-10: M2 5.50 ICD-9: 719.40 03/28/2018 Diarrhea, unspecified ICD-10: R19.7 ICD-9: 787.91 03/28/2018 Anemia, unspecified ICD-10: D64.9 ICD-9: 285.9 [...] unspecified side ICD-10: M54.40 ICD-9: 724.3 11/17/2015 Hypothyroid ICD-9: 244.9 05/28/2015 Bilateral calf pain ICD-9: 729.5 05/28/2015 Depression ICD-9: 311 Back pain, chronic ICD-9: 724.5 05/28/2015 Reason For Visit Reason For Visit [...] Item Item Code Result Date Comp Metabolic Gyx032 NA 137 mEq/L 01/07/2019 Comp Metabolic Uop441 K 4.2 mEq/L 01/07/2019 Comp Metabolic Pht651 CL 104 mEq/L 01/07/2019 Comp Metabolic Oxd455 CO2 26.0 mEq/L 01/07/2019 Comp Metabolic Nso299 AN ION GAP 11 01/07/2019 Comp Metabolic Szq931 GL UCOSE 64 mg/dL 01/07/2019 Comp Metabolic Mdw918 Cr eat 0.8 mg/dL 01/07/2019 Comp Metabolic Hvx711 eG FR 110 ml/min/1.73m2 12/28 Comp Metabolic Ksq702 BUN 7 mg/dL 01/07/2019 Comp Metabolic Lzl686 B/ C Ratio 9.0 Ratio 01/07/2019 Comp Metabolic Dkn525 CA LCIUM 9.7 mg/dL 01/07/2019 Comp Metabolic Pak242 AL K PHOS 64 U/L 01/07/2019 Comp Metabolic Iur838 T(SGOT) 32 U/L 01/07/2019 Comp Metabolic Jrs951 AL T(SGPT) 44 U/L 01/07/2019 Comp Metabolic Yju846 BI LI T 0.3 mg/dL 01/07/2019 Comp Metabolic Pxw727 AL BUMIN 4.3 g/dL 01/07/2019 Comp Metabolic Lcf442 TP RO 6.5 g/dL 01/07/2019 Comp Metabolic Dkl507 GL OB 2.2 g/dL 01/07/2019 Comp Metabolic Upb627 A/ G Ratio 2.0 Ratio 01/07/2019 Comp Metabolic Noz907 Os mo 270 mOsmo 01/07/2019 Tsh Ord6 TSH (3rd IS) 0.02 uIU/mL [...] 29.4 pg 01/07/2019 Cbc With Differential Ord2 [place]% 10.9 % 01/07/2019 Cbc With Differential Ord2 [...] 1.77 K/ul 01/07/2019 Cbc With Differential Ord2 [place] ABS# 0.5 K/ul 01/07/2019 Cbc With Differential Ord2 Eos ABS# 0.1 K/ul 01/07/2019 Cbc With Differential Ord2 Baso ABS# 0.0 K/ul 01/07/2019 Free T4 [id number] FREE T4 2.05 ng/dL 01/07/2019 Lipid Ord30 CHOL 189 mg/dL 01/07/2019 Lipid Ord30 HDL 58.0 mg/dl 01/07/2019 Lipid Ord30 TRIG 155 mg/dL 01/07/2019 Lipid Ord30 LDL 100 mg/dL 01/07/2019 Lipid Ord30 C/HDL 3.3 Ratio 01/07/2019 Free T4 [id number] FREE T4 1.54 ng/dL 11/05/2018 Vitamin D 25 Oh [id number] VITAMIN D, 25 HYDROXY 40.65 ng/mL 11/05/2018 Tsh Ord6 TSH (3rd IS) 0.02 uIU/mL 11/05/2018 Vitamin D 25 Oh [id number] VITAMIN D, 25 HYDROXY 30.96 ng/mL 07/06/2018 Comp Metabolic Obs345 NA 141 mEq/L 07/06/2018 Comp Metabolic Kfw700 K 4.2 mEq/L 07/06/2018 Comp Metabolic Nzi330 CL 103 mEq/L 07/06/2018 Comp Metabolic Kfp958 CO2 29.0 mEq/L 07/06/2018 Comp Metabolic Jsz326 AN ION GAP 13 07/06/2018 Comp Metabolic Nhl806 GL UCOSE 105 mg/dL 07/06/2018 Comp Metabolic Cki166 Cr eat 0.8 mg/dL 07/06/2018 Comp Metabolic Bov823 eG FR 101 ml/min/1.73m2 06/27 Comp Metabolic Vdx627 BUN 7 mg/dL 07/06/2018 Comp Metabolic Fyj403 B/ C Ratio 8.3 Ratio 07/06/2018 Comp Metabolic Sem677 CA LCIUM 9.9 mg/dL 07/06/2018 Comp Metabolic Hdk547 AL K PHOS 65 U/L 07/06/2018 Comp Metabolic Ckz615 T(SGOT) 21 U/L 07/06/2018 Comp Metabolic Bhx613 AL T(SGPT) 31 U/L 07/06/2018 Comp Metabolic Vhs057 BI LI T 0.3 mg/dL 07/06/2018 Comp Metabolic Jze907 AL BUMIN 4.3 g/dL 07/06/2018 Comp Metabolic Eri134 TP RO 6.4 g/dL 07/06/2018 Comp Metabolic Riw646 GL OB 2.1 g/dL 07/06/2018 Comp Metabolic Oqp304 A/ G Ratio 2.0 Ratio 07/06/2018 Comp Metabolic Gdr188 Os mo 280 mOsmo 07/06/2018 Cbc With Differential Ord2 WBC 4.78 K/ul 07/06/2018 Cbc With Differential Ord2 RBC 4.68 M/ul 07/06/2018 Cbc With Differential Ord2 HGB 13.7 g/dl 07/06/2018 Cbc With Differential Ord2 Neut% 44.4 % 07/06/2018 Cbc With Differential Ord2 HCT 42.1 % 07/06/2018 Cbc With Differential Ord2 MCV 90.0 fl 07/06/2018 Cbc With Differential Ord2 Lymph% 39.5 % 07/06/2018 Cbc With Differential Ord2 MCH 29.3 pg 07/06/2018 Cbc With Differential Ord2 [place]% 10.5 % 07/06/2018 Cbc With Differential Ord2 [...] 1.89 K/ul 07/06/2018 Cbc With Differential Ord2 [place] ABS# 0.5 K/ul 07/06/2018 Cbc With Differential Ord2 Eos ABS# 0.3 K/ul 07/06/2018 Cbc With Differential Ord2 Baso ABS# 0.0 K/ul 07/06/2018 Total Psa Ord10 PSA 0.34 ng/mL 07/06/2018 Tsh Ord6 TSH (3rd IS) 0.02 uIU/mL 07/06/2018 Testosterone Uan344 Testo 400.6 ng/dL 07/06/2018 Free T4 Mkv451 FREE T4 1.48 ng/dL 07/06/2018 [place] Spotted Fever Igg/Igm 34550 3 [place] SPOTTED FEVER IGM EIA . 04/04/2018 [place] Spotted Fever Igg/Igm 62068 3 RMSF, IGM 0.24 index 04/04/2018 [place] Spotted Fever Igg/Igm 93565 3 [place]A MT SPOTTED FEVER IGG EIA FLEX . 04/04/2018 [place] Spotted Fever Igg/Igm 00921 3 RMSF, IGG SCREEN-FLEX Equivocal 04/04/2018 [place] Mtn Spot'D Fev Igg 053800 RMSF, IGG- TITER IFA <1:64 04/04/2018 Ehrlichia Chaffeensis Antibody Igm [id number] EHRLICHIA CHAFFEENSIS IGM < 1:16 04/02/2018 Ehrlichia Chaffeensis Antibody Igg [id number] EHRLICHIA CHAFFEENSIS IGG <1:64 04/02/2018 [facility]ymes Disease Total Antibodies With Western Blot Refle x [id number] B. BURGDORFERI, IGG/IGM 0.23 03/30/2018 [facility]ym[facility] Disease Total Antibodies With Western Blot Refle x [id number] 03/30/2018 Cbc With Differential Ord2 WBC 5.04 K/ul 03/28/2018 Cbc With Differential Ord2 RBC 5.06 M/ul 03/28/2018 Cbc With Differential Ord2 HGB 14.5 g/dl 03/28/2018 Cbc With Differential Ord2 Neut% 54.7 % 03/28/2018 Cbc With Differential Ord2 HCT 43.0 % 03/28/2018 Cbc With Differential Ord2 MCV 85.0 fl 03/28/2018 Cbc With Differential Ord2 Lymph% 27.2 % 03/28/2018 Cbc With Differential Ord2 MCH 28.7 pg 03/28/2018 Cbc With Differential Ord2 [place]% 16.1 % 03/28/2018 Cbc With Differential Ord2 [...] 1.37 K/ul 03/28/2018 Cbc With Differential Ord2 [place] ABS# 0.8 K/ul 03/28/2018 Cbc With Differential Ord2 Eos ABS# 0.1 K/ul 03/28/2018 Cbc With Differential Ord2 Baso ABS# 0.0 K/ul 03/28/2018 Test(s) Not Perfromed [id number] Test(s) Not Performed Test(s) Not Performed. See Below: 02/16/2018 Test(s) Not Perfromed [id number] TEST NAME CBC 02/16/2018 Test(s) Not Perfromed [id number] Rejection Reason No Suitable Specimen Receive d 02/16/2018 Test(s) Not Perfromed [id number] COMMENT Please Recollect Sample 02/16/2018 Test(s) Not Perfromed [id number] [facility] Fernando Goyal 02/16/2018 Comp Metabolic Rra988 NA 136 mEq/L 02/16/2018 Comp Metabolic Vkm375 K 3.9 mEq/L 02/16/2018 Comp Metabolic Gom054 CL 103 mEq/L 02/16/2018 Comp Metabolic Gwa670 CO2 23.0 mEq/L 02/16/2018 Comp Metabolic Vmz510 AN ION GAP 14 02/16/2018 Comp Metabolic Drj060 GL UCOSE 133 mg/dL 02/16/2018 Comp Metabolic Bqo395 Cr eat 0.8 mg/dL 02/16/2018 Comp Metabolic Azg340 eG FR 103 ml/min/1.73m2 01/26 Comp Metabolic Xpl285 BUN 7 mg/dL 02/16/2018 Comp Metabolic Rwf593 B/ C Ratio 8.4 Ratio 02/16/2018 Comp Metabolic Dbt522 CA LCIUM 9.3 mg/dL 02/16/2018 Comp Metabolic Wwc972 AL K PHOS 71 U/L 02/16/2018 Comp Metabolic Ofi626 T(SGOT) 42 U/L 02/16/2018 Comp Metabolic Loo383 AL T(SGPT) 69 U/L 02/16/2018 Comp Metabolic Kaf291 BI LI T 0.3 mg/dL 02/16/2018 Comp Metabolic Tjk655 AL BUMIN 4.1 g/dL 02/16/2018 Comp Metabolic Gmf453 TP RO 6.3 g/dL 02/16/2018 Comp Metabolic Qsu895 GL OB 2.2 g/dL 02/16/2018 Comp Metabolic Jkh829 A/ G Ratio 1.8 Ratio 02/16/2018 Comp Metabolic Cbc369 Os mo 272 mOsmo 02/16/2018 Free T4 Nmc338 FREE T4 1.85 ng/dL 02/16/2018 Ferritin Ord22 FERRITIN 161.7 ng/mL 02/16/2018 Tsh Ord6 TSH (3rd IS) 0.01 uIU/mL 02/16/2018 Tibc Ord40 Iron 138 ug/dl 02/16/2018 [...] 32.9 % 01/05/2018 Cbc With Differential Ord2 Lymph% 41.4 % 01/05/2018 Cbc With Differential Ord2 MCV 81.8 fl 01/05/2018 Cbc With Differential Ord2 [place]% 11.9 % 01/05/2018 Cbc With Differential Ord2 MCH 26.4 pg 01/05/2018 Cbc With Differential Ord2 MCHC 32.2 pg 01/05/2018 Cbc With Differential Ord2 Eos% 3.4 % 01/05/2018 Cbc With Differential Ord2 Baso% 0.8 % 01/05/2018 Cbc With Differential Ord2 PLT 342 K/ul 01/05/2018 Cbc With Differential Ord2 RDW 17.0 % 01/05/2018 Cbc With Differential Ord2 Neut ABS# 2.14 K/ul 01/05/2018 Cbc With Differential Ord2 Lymph ABS# 2.08 K/ul 01/05/2018 Cbc With Differential Ord2 [place] ABS# 0.6 K/ul 01/05/2018 Cbc With Differential Ord2 Eos ABS# 0.2 K/ul 01/05/2018 Cbc With Differential Ord2 Baso ABS# 0.0 K/ul 01/05/2018 Ferritin Ord22 FERRITIN 5.7 ng/mL 12/06/2017 Tibc Ord40 Iron 33 ug/dl 12/06/2017 Tibc Ord40 UIBC 431 ug/dL 12/06/2017 Tibc Ord40 TIBC 464 ug/dL 12/06/2017 Tibc Ord40 Fe-%Sat 7.1 % 12/06/2017 Comp Metabolic Yfx476 NA 136 mEq/L 12/01/2017 Comp Metabolic Xjg960 K 4.6 mEq/L 12/01/2017 Comp Metabolic Yae540 CL 102 mEq/L 12/01/2017 Comp Metabolic Xte639 CO2 27.0 mEq/L 12/01/2017 Comp Metabolic Jls444 AN ION GAP 12 12/01/2017 Comp Metabolic Wmf212 GL UCOSE 90 mg/dL 12/01/2017 Comp Metabolic Fos927 Cr eat 0.7 mg/dL 12/01/2017 Comp Metabolic Mzj180 eG FR 123 ml/min/1.73m2 03/2018 Comp Metabolic Rvt711 BUN 4 mg/dL 12/01/2017 Comp Metabolic Dgh113 B/ C Ratio 5.6 Ratio 12/01/2017 Comp Metabolic Uuk201 CA LCIUM 9.0 mg/dL 12/01/2017 Comp Metabolic Ext021 AL K PHOS 67 U/L 12/01/2017 Comp Metabolic Psj425 T(SGOT) 30 U/L 12/01/2017 Comp Metabolic Qnk111 AL T(SGPT) 29 U/L 12/01/2017 Comp Metabolic Mwk509 BI LI T 0.3 mg/dL 12/01/2017 Comp Metabolic Uia117 AL BUMIN 4.1 g/dL 12/01/2017 Comp Metabolic Mhi789 TP RO 6.1 g/dL 12/01/2017 Comp Metabolic Bkh882 GL OB 2.0 g/dL 12/01/2017 Comp Metabolic Qrh986 A/ G Ratio 2.0 Ratio 12/01/2017 Comp Metabolic Zbd456 Os mo 268 mOsmo 12/01/2017 Cbc With Differential Ord2 WBC 4.15 K/ul 12/01/2017 Cbc With Differential Ord2 RBC 4.00 M/ul 12/01/2017 Cbc With Differential Ord2 HGB 10.8 g/dl 12/01/2017 Cbc With Differential Ord2 Neut% 38.0 % 12/01/2017 Cbc With Differential Ord2 HCT 33.3 % 12/01/2017 Cbc With Differential Ord2 Lymph% 46.3 % 12/01/2017 Cbc With Differential Ord2 MCV 83.3 fl 12/01/2017 Cbc With Differential Ord2 MCH 27.0 pg 12/01/2017 Cbc With Differential Ord2 [place]% 10.6 % 12/01/2017 Cbc With Differential Ord2 Eos% 4.1 % 12/01/2017 Cbc With Differential Ord2 MCHC 32.4 pg 12/01/2017 Cbc With Differential Ord2 PLT 345 K/ul 12/01/2017 Cbc With Differential Ord2 Baso% 1.0 % 12/01/2017 Cbc With Differential Ord2 Neut ABS# 1.58 K/ul 12/01/2017 Cbc With Differential Ord2 RDW 15.3 % 12/01/2017 Cbc With Differential Ord2 Lymph ABS# 1.92 K/ul 12/01/2017 Cbc With Differential Ord2 [place] ABS# 0.4 K/ul 12/01/2017 Cbc With Differential Ord2 Eos ABS# 0.2 K/ul 12/01/2017 Cbc With Differential Ord2 Baso ABS# 0.0 K/ul 12/01/2017 Tsh Ord6 hTSH II 0.07 uIU/mL 12/01/2017 Free T4 Veh162 FREE T4 1.82 ng/dL 12/01/2017 Tsh Ord6 hTSH II 0.08 uIU/mL 02/16/2016 Cbc With Differential Ord2 WBC 5.32 [...] 30.2 pg 02/16/2016 Cbc With Differential Ord2 [place]% 9.6 % 02/16/2016 Cbc With Differential Ord2 Eos% 1.7 % 02/16/2016 Cbc With Differential Ord2 MCHC 33.3 pg 02/16/2016 Cbc With Differential Ord2 PLT 377 K/ul 02/16/2016 Cbc With Differential Ord2 Baso% 0.4 % 02/16/2016 Cbc With Differential Ord2 Neut ABS# 3.20 K/ul 02/16/2016 Cbc With Differential Ord2 RDW 12.8 % 02/16/2016 Cbc With Differential Ord2 Lymph ABS# 1.50 K/ul 02/16/2016 Cbc With Differential Ord2 [place] ABS# 0.5 K/ul 02/16/2016 Cbc With Differential Ord2 Eos ABS# 0.1 K/ul 02/16/2016 Cbc With Differential Ord2 Baso ABS# 0.0 K/ul 02/16/2016 Cbc With Differential Ord2 New Analyzer Notice Please note new ref ranges s tarting 12-09-2015 due to implemntation of new five part differential hematolgy analyzer. 02/16/2016 Free T4 Avw797 FREE T4 1.20 ng/dL 02/16/2016 Comp Metabolic Tam659 NA 136 mEq/L 02/16/2016 Comp Metabolic Tta149 K 4.2 mEq/L 02/16/2016 Comp Metabolic Zcq213 CL 104 mEq/L 02/16/2016 Comp Metabolic Tnt183 CO2 20.0 mEq/L 02/16/2016 Comp Metabolic Brw995 AN ION GAP 16 02/16/2016 Comp Metabolic Zkm230 GL UCOSE 71 mg/dL 02/16/2016 Comp Metabolic Pxw743 Cr eat 0.8 mg/dL 02/16/2016 Comp Metabolic Bfv311 eG FR 113 ml/min/1.73m2 01/26 Comp Metabolic Uet668 BUN 7 mg/dL 02/16/2016 Comp Metabolic Oya524 B/ C Ratio 9.1 Ratio 02/16/2016 Comp Metabolic Udd052 CA LCIUM 9.4 mg/dL 02/16/2016 Comp Metabolic Ryi496 AL K PHOS 57 U/L 02/16/2016 Comp Metabolic Zsy051 T(SGOT) 30 U/L 02/16/2016 Comp Metabolic Zvn863 AL T(SGPT) 27 U/L 02/16/2016 Comp Metabolic Xed209 BI LI T 0.2 mg/dL 02/16/2016 Comp Metabolic Zpu861 AL BUMIN 4.4 g/dL 02/16/2016 Comp Metabolic Plz215 TP RO 6.5 g/dL 02/16/2016 Comp Metabolic Puq231 GL OB 2.1 g/dL 02/16/2016 Comp Metabolic Jxz658 A/ G Ratio 2.1 Ratio 02/16/2016 Comp Metabolic Rto383 Os mo 268 mOsmo 02/16/2016 Review of Systems System Result Effective [...] Respiratory dyspnea on exertion 05/04/2018 Respiratory snoring 060 06/2018 Gastrointestinal No constipation 05/04/2018 Gastrointestinal No [...] Neurologic No headache 0 05/28/2015 Psychiatric anxiety 07/0 12/2014 Psychiatric depression 0 05/28/2015 Hematologic/Lymphatic No [...] Procedure Codes Date THER/PROPH/DIAG INJ SC/IM CPT-4: 17209 12/27/2018 VITAMIN B12 INJECTION CPT-4: J3420 12/27/2018 PPPS, SUBSEQ VISIT CPT- 4: G0439 09/17/2018 Vital Signs Date Vital 01/07/2019 Blood Pressure 1: 124/80 Code: 8480-6 BMI: 38.3 Code: 26716-2 Heart Rate 1: 88 bpm Height: 5'6" SpO2: 97% Weight: 237 lbs 12/27/2018 Blood Pressure 1: 122/80 Code: 8480-6 BMI: 38.6 Code: 87548-4 Heart Rate 1: 72 bpm Height: 5'6" SpO2: 98% Weight: 239 lbs 11/05/2018 Blood Pressure 1: 122/64 Code: 8480-6 BMI: 37.4 Code: 77263-4 Heart Rate 1: 66 bpm Height: 5'6" SpO2: 97% Weight: 232 lbs 09/27/2018 Blood Pressure 1: 92/66 Code: 8480-6 BMI: 37.9 Code: 82825-6 Heart Rate 1: 66 bpm Height: 5'6" SpO2: 98% Weight: 235 lbs 09/17/2018 Blood Pressure 1: 110/72 Code: 8480-6 BMI: 38.3 Code: 24889-4 Heart Rate 1: 77 bpm Height: 5'6" SpO2: 95% Waist Measure (cm): 102 cm Weight: 237 lbs 09/03/2018 Blood Pressure 1: 12268 Code: 8480-6 BMI: 37.6 Code: 80435-4 Heart Rate 1: 78 bpm Height: 5'6" SpO2: 97% Weight: 233 lbs 07/05/2018 Blood Pressure 1: 9462 Code: 8480-6 BMI: 36.8 Code: 51177-7 Heart Rate 1: 88 bpm Height: 5'6" SpO2: 99% Weight: 228 lbs 05/04/2018 Blood Pressure 1: 110/80 Code: 8480-6 BMI: 35.5 Code: 17231-5 Heart Rate 1: 80 bpm Height: 5'6" SpO2: 99% Weight: 220 lbs 03/28/2018 Blood Pressure 1: 11072 Code: 8480-6 BMI: 35.0 Code: 23398-5 Heart Rate 1: 80 bpm Height: 5'6" SpO2: 98% Temperature: 36.2 (C ) / 97.1 (F) Weight: 217 lbs 02/27/2018 Blood Pressure 1: 136/76 Code: 8480-6 BMI: 36.0 Code: 76892-5 Heart Rate 1: 80 bpm Height: 5'6" SpO2: 98% Weight: 223 lbs 12/01/2017 Blood Pressure 1: 132/72 Code: 8480-6 BMI: 33.4 Code: 47476-2 Heart Rate 1: 82 bpm Height: 5'6" SpO2: 97% Weight: 207 lbs 09/29/2017 Blood Pressure 1: 124/68 Code: 8480-6 BMI: 32.1 Code: 41854-9 Heart Rate 1: 77 bpm Height: 5'6" SpO2: 98% Weight: 199 lbs 08/11/2017 Blood Pressure 1: 154/82 Code: 8480-6 BMI: 31.6 Code: 03645-4 Heart Rate 1: 75 bpm Height: 5'6" SpO2: 98% Weight: 196 lbs 06/09/2017 Blood Pressure 1: 148/88 Code: 8480-6 BMI: 28.6 Code: 83985-1 Heart Rate 1: 88 bpm Height: 5'6" SpO2: 98% Weight: 177 lbs 04/07/2017 Blood Pressure 1: 140/84 Code: 8480-6 BMI: 30.3 Code: 74132-9 Heart Rate 1: 81 bpm Height: 5'6" SpO2: 99% Weight: 188 lbs 11/17/2016 Blood Pressure 1: 130/72 Code: 8480-6 Heart Rate 1: 63 bpm Height: SpO2: 93% Weight: 11/10/2016 Blood Pressure 1: 128/86 Code: 8480-6 BMI: 30.3 Code: 80176-9 Heart Rate 1: 84 bpm Height: 5'6" SpO2: 96% Weight: 188 lbs 10/14/2016 Heigh t: 5'6" 09/16/2016 Blood Pressure 1: 130/80 Code: 8480-6 BMI: 30.3 Code: 32361-6 Heart Rate 1: 67 bpm Height: 5'6" SpO2: 99% Weight: 188 lbs 08/19/2016 Blood Pressure 1: 110/62 Code: 8480-6 BMI: 29.9 Code: 26460-0 Heart Rate 1: 70 bpm Height: 5'6" SpO2: 97% Weight: 185 lbs 06/17/2016 Blood Pressure 1: 112/68 Code: 8480-6 BMI: 27.6 Code: 68408-1 Heart Rate 1: 61 bpm Height: 5'6" SpO2: 98% Weight: 171 lbs 05/12/2016 Blood Pressure 1: 130/76 Code: 8480-6 BMI: 29.7 Code: 05546-5 Heart Rate 1: 103 bpm Height: 5'6" SpO2: 98% Weight: 184 lbs 02/16/2016 Blood Pressure 1: 140/82 Code: 8480-6 BMI: 28.7 Code: 61778-0 Heart Rate 1: 66 bpm Height: 5'6" SpO2: 99% Weight: 178 lbs 11/17/2015 Blood Pressure 1: 120/74 Code: 8480-6 BMI: 29.4 Code: 27249-6 Heart Rate 1: 90 bpm Height: 5'6" SpO2: 94% Weight: 182 lbs 08/28/2015 Blood Pressure 1: 128/76 Code: 8480-6 BMI: 27.9 Code: 27996-5 Heart Rate 1: 80 bpm Height: 5'6" SpO2: 98% Weight: 173 lbs 05/28/2015 Blood Pressure 1: 122/70 Code: 8480-6 BMI: 27.0 Code: 49902-1 Heart Rate 1: 74 bpm Height: 5'6" SpO2: 98% Weight: 167 lbs 04/23/2015 Blood Pressure 1: 110/60 Code: 8480-6 BMI: 27.0 Code: 13468-0 Heart Rate 1: 68 bpm Height: 5'6" [...] and Resolution ongoing 09/03/2018 None hypothyroid Quality 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 P ATIENT, LEVEL IV Diagnosis: Chronic pain syndrome[ICD10: G89.4] Diagnosis: Hypothyroidism, unspecified[ICD10: E03.9] Diagnosis: Encounter for screening for lipoid disorders[ICD10: Z13.220] Diagnosis: Major depressive disorder, recurrent, moderate[ICD10: F33.1] [facility] CPT-4: 93716 01/07/[id number]) [id number] EST. P ATSTACEY, LEVEL III Diagnosis: Obstructive sleep apnea (adult) (pediatric)[ICD10: G47.33] Diagnosis: Hypothyroidism, unspecified[ICD10: E03.9] Diagnosis: Vitamin B12 deficiency anemia, unspecified[ICD10: D51.9] [facility] CPT-4: 27272 12/27/2018 [id number]) 82549 EST. P ATIENT, LEVEL IV Diagnosis: Hypothyroidism, unspecified[ICD10: E03.9] Diagnosis: Major depressive disorder, recurrent, moderate[ICD10: F33.1] Diagnosis: Chronic pain syndrome[ICD10: G89.4] Leydi Jacobo MD, [facility] CPT-4: 86596 11/05/2018 ([id number]) 95397 EST. P ATIENT, LEVEL IV Diagnosis: Chronic pain syndrome[ICD10: G89.4] Diagnosis: Hypothyroidism, unspecified[ICD10: E03.9] Diagnosis: Other fatigue[ICD10: R53.83] Diagnosis: Other obesity due to excess calories[ICD10: E66.09] Diagnosis: Major depressive disorder, recurrent, moderate[ICD10: F33.1] Leydi Jacobo MD, [facility] CPT-4: 02933 09/27/2018 ([id number]) 26860 EST. P ATIENT, LEVEL III Diagnosis: Chronic pain syndrome[ICD10: G89.4] Leydi Jacobo MD, [facility] CPT-4: 70284 09/03/2018 ([id number]) 61714 EST. P ATIENT, LEVEL IV Diagnosis: Hypothyroidism, unspecified[ICD10: E03.9] Diagnosis: Major depressive disorder, recurrent, moderate[ICD10: F33.1] Diagnosis: Chronic pain syndrome[ICD10: G89.4] Diagnosis: Other male erectile dysfunction[ICD10: N52.8] Diagnosis: Other fatigue[ICD10: R53.83] Diagnosis: Encounter for screening for malignant neoplasm of prostate[ICD10: Z12.5] Leydi Jacobo MD, [facility] CPT-4: 77145 07/05/2018 ([id number]) 36964 EST. P ATIENT, LEVEL IV Diagnosis: Chronic pain syndrome[ICD10: G89.4] Diagnosis: Hypothyroidism, unspecified[ICD10: E03.9] Diagnosis: Major depressive disorder, recurrent, moderate[ICD10: F33.1] Leydi Jacobo MD, [facility] CPT-4: 15845 05/04/2018 [id number] EST. PATIENT, LEVEL IV Diagnosis: Melena[ICD10: K92.1] Diagnosis: Other malaise[ICD10: R53.81] Diagnosis: Other fatigue[ICD10: R53.83] Diagnosis: Pain in unspecified joint[ICD10: M25.50] Diagnosis: Diarrhea, unspecified[ICD10: R19.7] Denae Jacobo MD, [facility] CPT-4: 21944 03/28/2018 ([id number]) 02297 EST. P ATIENT, LEVEL IV Diagnosis: Chronic pain syndrome[ICD10: G89.4] Diagnosis: Hypothyroidism, unspecified[ICD10: E03.9] Diagnosis: Other obesity due to excess calories[ICD10: E66.09] Diagnosis: Major depressive disorder, recurrent, moderate[ICD10: F33.1] Diagnosis: Obstructive sleep apnea (adult) (pediatric)[ICD10: G47.33] Leydi Jacobo MD, [facility] CPT-4: 24195 02/27/2018 73379 EST. PATIENT, LEVEL IV Diagnosis: Other specified hypothyroidism[ICD10: E03.8] Diagnosis: Chronic pain syndrome[ICD10: G89.4] Diagnosis: Major depressive disorder, recurrent, moderate[ICD10: F33.1] Denae Jacobo MD, [facility] CPT-4: 20257 12/01/2017 ([id number]) 15753 EST. P ATIENT, LEVEL IV Diagnosis: Chronic pain syndrome[ICD10: G89.4] Diagnosis: Alcohol dependence, uncomplicated[ICD10: F10.20] Diagnosis: Major depressive disorder, recurrent, moderate[ICD10: F33.1] Leydi Jacobo MD, [facility] CPT-4: 11560 09/29/2017 ([id number]) 70231 EST. P ATIENT, LEVEL IV Diagnosis: Chronic pain syndrome[ICD10: G89.4] Diagnosis: Alcohol dependence, uncomplicated[ICD10: F10.20] Diagnosis: Major depressive disorder, recurrent, moderate[ICD10: F33.1] Leydi Jacobo MD, [facility] CPT-4: 30973 08/11/2017 ([id number]) 18166 EST. P ATIENT, LEVEL III Diagnosis: Chronic pain syndrome[ICD10: G89.4] Diagnosis: Major depressive disorder, recurrent, moderate[ICD10: F33.1] Leydi Jacobo MD, [facility] CPT-4: 46360 06/09/2017 ([id number]) 50069 EST. [facility]: Chronic pain syndrome[ICD10: G89.4] Diagnosis: Pain in left knee[ICD10: M25.562] Leydi Jacobo MD, [facility] CPT- 4: 67671 04/07/2017 38680 EST. PATIENT, LEVEL II Diagnosis: Superficial foreign body of left upper arm, initial encounter[ICD10: S40.852A] Diagnosis: Cellulitis of left upper limb[ICD10: L03.114] Leydi Jacobo MD, [facility] CPT-4: 17515 11/17/2016 58606 EST. PATIENT, LEVEL II Diagnosis: Cellulitis of left upper limb[ICD10: L03.114] Leydi Jacobo MD, [facility] CPT-4: 40267 11/10/2016 ([id number]) 97107 EST. [facility] Diagnosis: Chronic pain syndrome[ICD10: G89.4] Diagnosis: Major depressive disorder, recurrent, moderate[ICD10: F33.1] Leydi Jacobo MD, [facility] CPT-4: 47615 10/14/2016 62299 EST. PATIENT, LEVEL IV Diagnosis: Psychophysiologic insomnia[ICD10: F51.04] Diagnosis: Major depressive disorder, recurrent, moderate[ICD10: F33.1] Diagnosis: Alcohol dependence, uncomplicated[ICD10: F10.20] Diagnosis: Chronic pain syndrome[ICD10: G89.4] Leydi Jacobo MD, [facility] CPT-4: 56434 09/16/2016 ([id number]) 85043 EST. P ATIENT, LEVEL III Diagnosis: Pain in left shoulder[ICD10: M25.512] Diagnosis: Major depressive disorder, recurrent, moderate[ICD10: F33.1] Diagnosis: Psychophysiologic insomnia[ICD10: F51.04] Leydi Jacobo MD, [facility] CPT-4: 36003 08/19/2016 ([id number]) 60609 EST. [facility] Diagnosis: Gastro-esophageal reflux disease without esophagitis[ICD10: K21.9] Diagnosis: Hypothyroidism, unspecified[ICD10: E03.9] Leydi Jacobo MD, [facility] CPT-4: 36592 06/17/2016 ([id number]) 05474 EST. P ATIENT, LEVEL IV Diagnosis: Gastro-esophageal reflux disease without esophagitis[ICD10: K21.9] Diagnosis: Hypothyroidism, unspecified[ICD10: E03.9] Diagnosis: Major depressive disorder, recurrent, moderate[ICD10: F33.1] Leydi Jacobo MD, [facility] CPT-4: 21920 05/12/2016 ([id number]) 05946 EST. P ATIENT, LEVEL III Diagnosis: Cervicalgia[ICD10: M54.2] Diagnosis: Hypothyroidism, unspecified[ICD10: E03.9] Diagnosis: Other male erectile dysfunction[ICD10: N52.8] Leydi Jacobo MD, [facility] CPT-4: 67647 02/16/2016 ([id number]) 98239 EST. P ATIENT, LEVEL III Diagnosis: Lumbago with sciatica, unspecified side[ICD10: M54.40] Diagnosis: Other male erectile dysfunction[ICD10: N52.8] Leydi Jacobo MD, [facility] CPT-4: 24667 11/17/2015 ([id number]) 67352 EST. P ATIENT, LEVEL III Diagnosis: Lumbago with sciatica, unspecified side[ICD10: M54.40] Diagnosis: Hypothyroidism, unspecified[ICD10: E03.9] Diagnosis: Other male erectile dysfunction[ICD10: N52.8] Leydi Jacobo MD, [facility] CPT-4: 37619 08/28/2015 ([id number]) 47011 EST. P ATIENT, LEVEL III Diagnosis: Back pain, chronic[ICD9: 724.5] Diagnosis: Depression[ICD9: 311] Diagnosis: Hypothyroid[ICD9: 244.9] Diagnosis: Bilateral calf pain[ICD9: 729.5] Julieta Jacobo MD, [facility] CPT-4: 80537 05/28/2015 ([id number]) OFFICE VISI T, NEW - LEVEL 4 Diagnosis: Back pain, chronic[ICD9: 724.5] Diagnosis: Depression[ICD9: 311] Diagnosis: Hypothyroid[ICD9: 244.9] [facility] CPT-4: 14061 04/23/2015 Plan of Care Planned Activity Notes [...] thyroid ultrasound 01/07/2019 Appointment: Leydi Hightower WPtel: [phone] [phone] (30 min) Complex 01/07/2019 Patient Education: Patient [...] office 12/27/2018 Appointment: Leydi Hightower WPtel: [phone] [phone] (15 min) Moderate 12/27/2018 Patient Education: Patient [...] current medications. 11/05/2018 Appointment: Leydi Hightower WPtel: [phone] (30 min) Complex 11/05/2018 Patient Education: Patient [...] control. 09/27/2018 Appointment: Leydi Hightower WPtel: [phone] [phone] (15 min) Moderate 09/27/2018 Patient Education: Patient [...] for health care surrogate. 09/17/2018 Appointment[phone] [phone] [facility] - Annual Wellness Visit 09/17/2018 Patient Education: Patient Medication Summary Completed 09/17/2018 Visit Plan: Chronic Pain Syndrome - pt has chronic pain - has been maintained on current medications, has not sought out other medications, only uses PRN pain medications as directed, and understands the consequences of over-medication. 09/03/2018 Appointment: [facility] Hightower [facility]el[id number] (30 min) Complex 09/03/2018 Patient Education: Patient [...] exposure. No change in current medications. Fatigue-weight glsk-GW-kshtu labs including testosterone level 07/05/2018 Visit Plan: [...] exposure. No change in current medications. Fatigue-weight fvkh-[id number] labs including testosterone level 07/05/2018 Appointment: Leydi Hightower WPtel: [phone] [phone] (15 min) Moderate 07/05/2018 Patient Education: Patient [...] to BID 05/04/2018 Appointment: Leydi Hightower WPtel: [phone] [phone] (15 min) Moderate 05/04/2018 Patient Education: Patient [...] stomach pain. 03/28/2018 Appointment: Denae Martínez [facility]Ptel[id number] (30 min) Complex 03/28/2018 Appointment: Nurse Visit [...] this time. 02/27/2018 Appointment: [facility] Hightower [facility]Ptel[id number] (15 min) Moderate 02/27/2018 Patient Education: Patient [...] control. 12/01/2017 Appointment: Denae Martínez WPtel: [phone] [phone] (30 min) Complex 12/01/2017 Patient Education: Patient [...] treatment 09/29/2017 Appointment: [phone] [place] (30 min) Complex 09/29/2017 Patient Education: [...] ider 08/11/2017 Appointment: [phone] ([place] min) Complex 08/11/2017 Patient Education: Patient [...] current medications. 06/09/2017 Appointment: Leydi Hightower WPtel[phone] ([place] min) Complex 06/09/2017 Patient Education: Patient [...] completely resolve 11/17/2016 Appointment: Leydi Hightower WPtel: [facility]5 [phone] (30 min) Complex 11/17/2016 Patient Education: Patient [...] in pain. 11/10/2016 Appointment: Leydi Hightower WPtel: [facility] [address] (30 min) Complex 11/10/2016 Patient Education: [...] of plan. 10/14/2016 Appointment: Leydi Hightower WPtel: [facility]1 [place] [phone] (30 min) Complex 10/14/2016 Patient Education: Patient [...] will try 09/16/2016 Appointment: Leydi Hightower WPtel: [facility]8 [place] [phone] (30 min) Complex 09/16/2016 Patient Education: Patient Medication Summary Completed 09/16/2016 Visit Plan: Left shoulder and elbow pain-xray shoulder and elbow Juwyxoavtu-ytdjjqkn-afawocurrpto-d/c trazodone-start remeron at bedtime Pt has been [...] this patient. 08/19/2016 Appointment: Leydi Hightower WPtel: [facility]5 [phone] (30 min) Complex 08/19/2016 Patient Education: Patient [...] Obesity Completed 06/17/2016 Appointment: Leydi Hightower WPtel: [phone] (30 min) Complex 06/09/2016 Visit Plan: Esophageal [...] control. 05/12/2016 Appointment: Leydi Hightower WPtel: [phone] [phone] (30 min) Complex 05/12/2016 Patient Education: Patient [...] in office. 05/28/2015 Appointment: Leydi Hightower WPtel: [address] [place], [place] [phone] (30 min) Complex 05/28/2015 Patient Education: Patient [...] Care Plan: COMPLETE CBC AUTOMATED LOINC : 67091-3 Ordered 04/23/2015 Instructions Comment RECOMMEND SLEEP STUD Y BELVIQ DECREASE LEVOTHYROXINE [...] and elbow pain-xray shou lder and elbow Nrrxatplna-vrrxjnrq-gacfuxgrqipl-d/c trazodone-start remeron at bedtime Pt has been [...] cialis for prn use Get Immodium over counter for loose stools [...] exposure. No change in current medications. Fatigue-weight kjwv-BX-qxyts labs including testosterone level . Chronic Pain [...] exposure. No change in current medications. Fatigue-weight jhyy-DF-pwjwt labs including testosterone level . Chronic Pain [...] any worse. Patient verbalized understanding of plan. ABILIFY 2mg daily WORK ON CUTTING BACK [...] gradually- patient states he will try . Hypothyroidism - p t with chronic [...] are managed by Dr. Perez. . 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 Chronic Pain Syndrome [...]
--- OUTSIDE RECORDS SUMMARY | 2020-03-17 15:03 | XMS REPORT | CCD ---
Author Author Thai Castillo Organization Sara Jacobo MD, [facility] Address [address] [place] [address] Phone Care Team Providers Care Basketball Scout Name Role Phone PP Unavailable CCM Unavailable Summary Purpose Interface Exchange Insurance Providers Payer name Policy type / Coverage type Covered libertarian ID Effective Begin Date Effective End Date WPS Medicare Part B Medicare Part B [id number] Unknown [facility] icare Part B [id number] Un known Family history Father Diagnosis Age At Onset Colon cancer Unknown Social History Social History Element Codes Description Effective Dates Employment Unknown [employer] unemployed Before disability 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 On Disability Unknown Yes 09/27/2018 Marital status Unknown D ivorced 04/23/[address]: 998131873 Never smoker 04/23/[address]: 432865 Currently drinks alcohol occasionally drinks 04/23/2015 Allergies, [...] ICD-9: 327.23 ICD-10: G47.33 Active 02/27/2018 Unknown Anemia, unspecified ICD- 9: [...] (pediatric) ICD-9: 327.23 ICD-10: G47.33 02/27/2018 Active Anemia, unspecified ICD- 9: 285.9 [...] Instructions doxycycline hyclate 100 mg tablet RxNorm: 8855229 1 Tablet(s) PO BID 11/14/2018 11/23/2018 Active trazodone 50 mg tablet RxNorm: 837911 TAKE ONE TABLET BY MOUTH EVERY NIGHT AT BEDTIME AND ONE-HALF TABLET BY MOUTH NEEDED 11/12/2018 12/21/2018 Active tizanidine 4 mg tablet RxNorm: 016778 TAKE ONE TABLET BY MOUTH THREE TIMES A D AY NEEDED 10/22/2018 02/18/2019 Active diclofenac sodium 75 mg tablet,delayed release RxNorm: 892756 TAKE ONE TABLET BY [facility] TWICE A DAY 10/15/2018 02/11/2019 Active Lasix 20 mg tablet RxNorm: 435275 1 Tablet(s) PO daily as needed 10/10/2018 11/08/2018 In active potassium chloride E R 10 mEq tablet,extended release RxNorm: 132332 1 Tablet(s) PO daily as needed to take with lasix for inceased edema 10/10/2018 11/08/2018 Inactive potassium chloride E R 10 mEq tablet,extended release RxNorm: 517643 1 Tablet(s) PO daily as needed to take with lasix for inceased edema 10/10/2018 10/09/2018 Inactive Lasix 20 mg tablet RxNorm: 902367 1 Tablet(s) PO daily as needed 10/10/2018 10/09/2018 In active doxycycline hyclate 100 mg tablet RxNorm: 9104555 1 Tablet(s) PO BID 09/27/2018 10/10/2018 Inactive Remeron 15 mg tablet RxNorm: 995644 1.5 Tablet(s) PO QPM TAKE ONE TABLET BY MOUTH EVERY NIGHT AT BEDTIME 09/18/2018 12/16/2018 Active baclofen 10 mg tablet RxNorm: 693333 TAKE ONE TABLET BY MOUTH THREE TIMES A D AY NEEDED 09/12/2018 11/10/2018 Inactive oxymorphone 5 mg tablet RxNorm: 562192 1 Tablet(s) PO Q6 PRN 09/03/2018 11/01/2018 Inactive morphine 30 mg table t, crush resistant, extended release RxNorm: 1337359 1 Tablet(s) PO BID 09/03/2018 11/01/2018 Inactive Remeron 15 mg tablet RxNorm: 774279 1.5 Tablet(s) PO QPM TAKE ONE TABLET BY MOUTH EVERY NIGHT AT BEDTIME 09/03/2018 09/17/2018 Inactive trazodone 50 mg tablet RxNorm: 174726 TAKE ONE TABLET BY MOUTH EVERY NIGHT AT BEDTIME AND ONE-HALF TABLET BY MOUTH NEEDED 09/03/2018 10/12/2018 Inactive tizanidine 4 mg tablet RxNorm: 271937 TAKE ONE TABLET BY MOUTH THREE TIMES A D AY NEEDED 08/20/2018 10/18/2018 Inactive Protonix 40 mg table t,delayed release RxNorm: 760854 TAKE ONE TABLET BY [facility] DAILY 08/10/2018 02/05/2019 Ac tive Carafate 1 gram tablet RxNorm: 439697 TAKE ONE TABLET BY MOUTH BEFORE MEALS AN D AT BEDTIME NEEDED FOR HEARTBURN 07/31/2018 12/27/2018 Active Protonix 40 mg table t,delayed release RxNorm: 017914 1 Tablet(s) BID 07/24/2018 07/23/2018 Inactive Protonix 40 mg table t,delayed release RxNorm: 847802 1 Tablet(s) daily 07/24/2018 08/09/2018 In active liothyronine 5 mcg t ablet RxNorm: 192204 TAKE ONE TABLET BY [facility] DAILY 07/19/2018 01/14/2019 Ac tive baclofen 10 mg tablet RxNorm: 008353 TAKE ONE TABLET BY MOUTH THREE TIMES A D AY NEEDED 07/12/2018 09/09/2018 Inactive levothyroxine 175 mc g tablet RxNorm: 681020 1 Tablet(s) PO daily 07/11/2018 11/07/2018 Inactive Vitamin D2 50,000 un it capsule RxNorm: 5469989 1 Capsule(s) PO QW 07/11/2018 10/02/2018 Inactive trazodone 50 mg tablet RxNorm: 542515 TAKE ONE TABLET BY MOUTH EVERY NIGHT AT BEDTIME AND ONE-HALF TABLET BY MOUTH NEEDED 07/11/2018 08/19/2018 Inactive Vitamin D2 50,000 un it capsule RxNorm: 7458680 1 Capsule(s) PO QW 07/11/2018 07/10/2018 Inactive morphine 30 mg table t, crush resistant, extended release RxNorm: 4694224 1 Tablet(s) PO BID 07/05/2018 09/02/2018 Inactive oxymorphone 5 mg tablet RxNorm: 662220 1 Tablet(s) PO Q6 PRN 07/05/2018 09/02/2018 Inactive bupropion HCl XL 300 mg 24 hr tablet, extended release RxNorm: 911631 TAKE ONE TABLET BY MOUTH DAILY 06/27/2018 12/23/2018 Active Remeron 15 mg tablet RxNorm: 799917 TAKE ONE TABLET BY MOUTH EVERY NIGHT AT BEDTIME 06/27/2018 09/02/2018 Inactive tizanidine 4 mg tablet RxNorm: 688991 TAKE ONE TABLET BY MOUTH THREE TIMES A D AY NEEDED 06/20/2018 08/18/2018 Inactive doxycycline hyclate 100 mg tablet RxNorm: 2303398 1 Tablet(s) PO BID 06/18/2018 07/01/2018 Inactive Protonix 40 mg table t,delayed release RxNorm: 223262 TAKE ONE TABLET BY [facility] DAILY 06/11/2018 07/23/2018 In active doxycycline hyclate 100 mg tablet RxNorm: 1255126 1 Tablet(s) PO BID 05/22/2018 06/04/2018 Inactive baclofen 10 mg tablet RxNorm: 808480 TAKE ONE TABLET BY MOUTH THREE TIMES A D AY NEEDED 05/14/2018 07/11/2018 Inactive diclofenac sodium 75 mg tablet,delayed release RxNorm: 544627 TAKE ONE TABLET BY [facility] TWICE A DAY 05/07/2018 10/03/2018 Inactive oxymorphone 5 mg tablet RxNorm: 675409 1 Tablet(s) PO Q6 PRN 05/04/2018 07/02/2018 Inactive morphine 30 mg table t, crush resistant, extended release RxNorm: 2683862 1 Tablet(s) PO BID 05/04/2018 07/02/2018 Inactive doxycycline hyclate 100 mg tablet RxNorm: 451670 1 Tablet(s) PO BID 04/24/2018 04/23/2018 Inactive doxycycline hyclate 100 mg tablet RxNorm: 5220097 1 Tablet(s) PO BID 04/24/2018 05/03/2018 Inactive baclofen 10 mg tablet RxNorm: 991346 TAKE ONE TABLET BY MOUTH THREE TIMES A D AY NEEDED 04/13/2018 05/12/2018 Inactive trazodone 50 mg tablet RxNorm: 174834 TAKE ONE TABLET BY MOUTH EVERY NIGHT AT BEDTIME AND ONE-HALF TABLET BY MOUTH NEEDED 04/09/2018 06/07/2018 Inactive Questran 4 gram powd er for susp in a packet RxNorm: 414381 1 packet PO BID 04/06/2018 06/04/2018 In active Questran 4 gram powd er for susp in a packet RxNorm: 598857 1 packet PO BID 04/06/2018 04/05/2018 In active Carafate 1 gram tablet RxNorm: 877909 1 Tablet(s) PO AC & HS as needed for hea rtburn 03/28/2018 04/26/2018 Inactive baclofen 10 mg tablet RxNorm: 460340 TAKE ONE TABLET BY MOUTH THREE TIMES A D AY NEEDED 03/16/2018 04/12/2018 Inactive Protonix 40 mg table t,delayed release RxNorm: 654657 TAKE ONE TABLET BY [facility] DAILY 03/16/2018 06/10/2018 In active Belviq XR 20 mg tabl et,extended release RxNorm: 0639770 1 Tablet(s) PO daily 02/27/2018 04/27/2018 In active oxymorphone 5 mg tablet RxNorm: 212151 1 Tablet(s) PO Q6 PRN 02/27/2018 04/27/2018 Inactive morphine 30 mg table t, crush resistant, extended release RxNorm: 4216841 1 Tablet(s) PO BID 02/27/2018 04/27/2018 Inactive levothyroxine 100 mc g tablet RxNorm: 906179 1 Tablet(s) PO daily 02/27/2018 07/10/2018 Inactive take with 88mcg to = 188mcg daily levothyroxine 88 mcg tablet RxNorm: 766060 1 Tablet(s) PO daily 02/27/2018 07/10/2018 Inactive take with 100mcg to = 188mcg daily morphine 30 mg table t, crush resistant, extended release RxNorm: 9444749 1 Tablet(s) PO BID 02/14/2018 02/26/2018 Inactive levothyroxine 200 mc g tablet RxNorm: 179606 Tablet(s) TAKE ONE TA BLET BY MOUTH DAILY 01/18/2018 02/26/2018 Inactive Updated script baclofen 10 mg tablet RxNorm: 133334 Tablet(s) TAKE ONE TABLET BY MOUTH THREE TIMES A DAY NEEDED 01/15/2018 02/13/2018 Inactive morphine 30 mg table t, crush resistant, extended release RxNorm: 9564141 1 Tablet(s) PO BID 01/15/2018 02/13/2018 Inactive tizanidine 4 mg tablet RxNorm: 880589 TAKE ONE TABLET BY MOUTH THREE TIMES A D AY NEEDED 01/02/2018 04/01/2018 Inactive Request already responded t o by other means (e.g. phone or fax) bupropion HCl XL 300 mg 24 hr tablet, extended release RxNorm: 347121 TAKE ONE TABLET BY MOUTH DAILY 12/29/2017 06/26/2018 Inactive Tamiflu 75 mg capsule RxNorm: 612339 1 Capsule(s) PO BID 12/27/2017 12/31/2017 Inactive Tamiflu 75 mg capsule RxNorm: 732522 1 Capsule(s) PO BID 12/27/2017 12/26/2017 Inactive tizanidine 4 mg tablet RxNorm: 453952 1 Tablet(s) PO TID as needed 12/25/2017 01/01/2018 Inactive levothyroxine 175 mc g tablet RxNorm: 948711 1 Tablet(s) PO daily 12/14/2017 12/13/2017 Inactive levothyroxine 175 mc g tablet RxNorm: 074343 1 Tablet(s) PO daily 12/14/2017 01/17/2018 Inactive baclofen 10 mg tablet RxNorm: 691898 Tablet(s) TAKE ONE TABLET BY MOUTH THREE TIMES A DAY NEEDED 12/13/2017 01/11/2018 Inactive baclofen 10 mg tablet RxNorm: 105377 TAKE ONE TABLET BY MOUTH THREE TIMES A D AY NEEDED 12/13/2017 12/12/2017 Inactive morphine 30 mg table t, crush resistant, extended release RxNorm: 4205242 1 Tablet(s) PO BID 12/12/2017 01/14/2018 Inactive clonazepam 1 mg tablet RxNorm: 403844 1/2 Tablet(s) PO daily 12/01/2017 08/27/2018 Inactive trazodone 50 mg tablet RxNorm: 548267 1/2 to 1 Tablet(s) QHS as needed 12/01/2017 03/30/2018 In active Opana ER 15 mg table t, crush resistant, extended release RxNorm: 037009 1 Tablet(s) PO Q12H 12/01/2017 02/13/2018 Inactive oxymorphone 5 mg tablet RxNorm: 574167 1 Tablet(s) PO Q6 PRN 12/01/2017 02/26/2018 Inactive Remeron 15 mg tablet RxNorm: 022422 Tablet(s) TAKE ONE TABLET BY MOUTH EVERY NIGHT AT BEDTIME 12/01/2017 02/28/2018 Inactive trazodone 50 mg tablet RxNorm: 603969 1/2 Tablet(s) as needed 1 Tablet(s) PO Q HS 12/01/2017 11/30/2017 In active clonazepam 1 mg tablet RxNorm: 728945 1/2 Tablet(s) PO daily 11/30/2017 11/30/2017 Inactive Remeron 15 mg tablet RxNorm: 973204 TAKE ONE TABLET BY MOUTH EVERY NIGHT AT BEDTIME 11/29/2017 11/30/2017 Inactive levothyroxine 200 mc g tablet RxNorm: 297864 TAKE ONE TABLET BY [facility] DAILY 11/15/2017 12/13/2017 In active baclofen 10 mg tablet RxNorm: 295210 TAKE ONE TABLET BY MOUTH THREE TIMES A D AY NEEDED 11/07/2017 12/06/2017 Inactive diclofenac sodium 75 mg tablet,delayed release RxNorm: 571164 1 Tablet(s) PO BID 11/07/2017 05/05/2018 In active liothyronine 5 mcg t ablet RxNorm: 856718 TAKE ONE TABLET BY [facility] DAILY 10/27/2017 07/18/2018 In active tizanidine 4 mg tablet RxNorm: 469504 1 Tablet(s) PO TID as needed 10/18/2017 12/16/2017 Inactive oxymorphone 5 mg tablet RxNorm: 298011 1 Tablet(s) PO Q6 PRN 09/29/2017 11/27/2017 Inactive morphine 30 mg table t, crush resistant, extended release RxNorm: 1872567 1 Tablet(s) PO BID 09/29/2017 11/28/2017 Inactive baclofen 10 mg tablet RxNorm: 794372 1 Tablet(s) PO TID as needed 09/11/2017 10/10/2017 Inactive baclofen 10 mg tablet RxNorm: 228336 1 Tablet(s) PO TID as needed 08/11/2017 09/09/2017 Inactive Opana ER 15 mg table t, crush resistant, extended release RxNorm: 769451 1 Tablet(s) PO Q12H 08/11/2017 09/28/2017 Inactive Remeron 15 mg tablet RxNorm: 626179 TAKE ONE TABLET BY MOUTH EVERY NIGHT AT BEDTIME 08/02/2017 10/30/2017 Inactive oxymorphone 5 mg tablet RxNorm: 668096 1 Tablet(s) PO Q6 PRN 08/02/2017 09/28/2017 Inactive Opana ER 5 mg tablet , crush resistant, extended release RxNorm: 917758 1 Tablet(s) PO Q6 PRN 08/01/2017 08/10/2017 Inactive Protonix 40 mg table t,delayed release RxNorm: 777675 TAKE ONE TABLET BY [facility] DAILY 06/26/2017 10/23/2017 In active Protonix 40 mg table t,delayed release RxNorm: 799059 TAKE ONE TABLET BY [facility] DAILY 06/26/2017 06/25/2017 In active bupropion HCl XL 300 mg 24 hr tablet, extended release RxNorm: 668208 TAKE ONE TABLET BY MOUTH DAILY 06/13/2017 12/09/2017 Inactive tizanidine 4 mg tablet RxNorm: 315448 1 Tablet(s) PO TID as needed 06/13/2017 06/12/2017 Inactive tizanidine 4 mg tablet RxNorm: 296819 1 Tablet(s) PO TID as needed 06/13/2017 09/10/2017 Inactive baclofen 10 mg tablet RxNorm: 683452 1 Tablet(s) PO TID as needed 06/13/2017 07/12/2017 Inactive Opana ER 15 mg table t, crush resistant, extended release RxNorm: 886123 1 Tablet(s) PO Q12H 06/09/2017 08/07/2017 Inactive Opana ER 5 mg tablet , crush resistant, extended release RxNorm: 656723 1 Tablet(s) PO Q6 PRN 06/09/2017 07/31/2017 Inactive diclofenac sodium 75 mg tablet,delayed release RxNorm: 483671 1 Tablet(s) PO BID 06/09/2017 09/06/2017 In active clonazepam 1 mg tablet RxNorm: 787595 1/2 Tablet(s) PO daily 05/24/2017 11/18/2017 Inactive bupropion HCl XL 300 mg 24 hr tablet, extended release RxNorm: 513969 TAKE ONE TABLET BY MOUTH DAILY 03/16/2017 06/12/2017 Inactive clonazepam 1 mg tablet RxNorm: 094921 1/2 Tablet(s) PO daily 02/22/2017 05/18/2017 Inactive Remeron 15 mg tablet RxNorm: 692168 TAKE ONE TABLET BY MOUTH EVERY NIGHT AT BEDTIME 02/06/2017 2017 Inactive Protonix 40 mg table t,delayed release RxNorm: 287507 TAKE ONE TABLET BY [facility] DAILY 01/26/2017 06/24/2017 In active mupirocin 2 % topica l ointment RxNorm: 227033 1 Application TOP BID 01/12/2017 01/18/2017 Inactive Bactrim DS 800 mg-16 0 mg tablet RxNorm: 409163 1 Tablet(s) PO BID 11/17/2016 11/23/2016 Inactive mupirocin 2 % topica l ointment RxNorm: 619159 1 Application TOP BID 11/10/2016 11/16/2016 Inactive Bactrim DS 800 mg-16 0 mg tablet RxNorm: 429775 1 Tablet(s) PO BID 11/10/2016 11/16/2016 Inactive bupropion HCl XL 300 mg 24 hr tablet, extended release RxNorm: 703421 TAKE ONE TABLET BY MOUTH DAILY 11/07/2016 03/06/2017 Inactive liothyronine 5 mcg t ablet RxNorm: 656408 1 Tablet(s) PO daily 11/01/2016 10/26/2017 Inactive levothyroxine 200 mc g tablet RxNorm: 941498 1 Tablet(s) PO daily 10/04/2016 09/28/2017 Inactive clonazepam 1 mg tablet RxNorm: 479628 1/2 Tablet(s) PO daily 09/21/2016 03/18/2017 Inactive clonazepam 1 mg tablet RxNorm: 272298 1/2 Tablet(s) PO daily 09/16/2016 09/20/2016 Inactive Abilify 2 mg tablet RxNorm: 690220 1 Tablet(s) PO daily 09/16/2016 10/13/2016 Inactive trazodone 50 mg tablet RxNorm: 023668 1/2 Tablet(s) as needed 1 Tablet(s) PO Q HS 09/16/2016 01/13/2017 In active morphine 15 mg immed iate release tablet RxNorm: 475432 1 Tablet(s) PO Q6 PRN 09/16/2016 04/06/2017 In active baclofen 10 mg tablet RxNorm: 839399 1 Tablet(s) PO TID as needed 09/16/2016 06/12/2017 Inactive MS Contin 30 mg tabl et,extended release RxNorm: 090123 1 Tablet(s) PO Q12H 09/16/2016 04/06/2017 In active Remeron 15 mg tablet RxNorm: 233337 1 Tablet(s) PO QHS 08/19/2016 09/15/2016 Inactive levothyroxine 200 mc g tablet RxNorm: 882509 1 Tablet(s) PO daily 08/11/2016 10/03/2016 Inactive bupropion HCl XL 300 mg 24 hr tablet, extended release RxNorm: 167533 TAKE ONE TABLET BY MOUTH DAILY 08/11/2016 11/06/2016 Inactive Protonix 40 mg table t,delayed release RxNorm: 168904 1 Tablet(s) PO daily 06/17/2016 12/13/2016 In active bupropion HCl XL 300 mg 24 hr tablet, extended release RxNorm: 288426 1 Tablet(s) PO daily 05/12/2016 07/10/2016 Inactive bupropion HCl XL 300 mg 24 hr tablet, extended release RxNorm: 904255 1 Tablet(s) PO daily 05/12/2016 05/11/2016 Inactive Cialis 20 mg tablet RxNorm: 509733 1 Tablet(s) PO PRN 02/16/2016 No Stop Date Active not more than 1 tab in 24 hours morphine ER 10 mg ca psule,extended release pellets RxNorm: 042677 1 Tablet(s) PO Q6 as needed 02/16/2016 11/16/2016 Inactive clonazepam 1 mg tablet RxNorm: 836924 1/2 Tablet(s) PO BID 02/16/2016 09/15/2016 Inactive trazodone 50 mg tablet RxNorm: 007142 1/2 Tablet(s) as needed 1 Tablet(s) PO Q HS 02/16/2016 08/18/2016 In active trazodone 50 mg tablet RxNorm: 823118 1/2 Tablet(s) 1 Tablet(s) PO QHS 11/17/2015 02/15/2016 In active trazodone 50 mg tablet RxNorm: 171118 1 Tablet(s) PO QHS 10/19/2015 11/16/2015 Inactive levothyroxine 200 mc g tablet RxNorm: 430142 1 Tablet(s) PO daily 10/02/2015 08/10/2016 Inactive Wellbutrin XL 150 mg 24 hr tablet, extended release RxNorm: 998652 1 Tablet(s) PO daily 10/02/2015 05/11/2016 Inactive levothyroxine 200 mc g tablet RxNorm: 013520 1 Tablet(s) PO daily 09/30/2015 10/01/2015 Inactive Wellbutrin XL 150 mg 24 hr tablet, extended release RxNorm: 431932 1 Tablet(s) PO daily 09/30/2015 10/01/2015 Inactive trazodone 50 mg tablet RxNorm: 187791 1 Tablet(s) PO QHS 09/11/2015 10/10/2015 Inactive trazodone 50 mg tablet RxNorm: 197117 1 Tablet(s) PO QHS 09/11/2015 09/10/2015 Inactive Cymbalta 30 mg capsu le,delayed release RxNorm: 999135 1 Capsule(s) PO daily 09/07/2015 11/16/2015 In active Cymbalta 60 mg capsu le,delayed release RxNorm: 925207 1 Capsule(s) PO daily 08/31/2015 08/30/2015 In active Cymbalta 30 mg capsu le,delayed release RxNorm: 207055 1 Capsule(s) PO daily take with 60mg to make 90 mg daily 08/31/2015 09/06/2015 Inactive Cymbalta 30 mg capsu le,delayed release RxNorm: 176105 1 Capsule(s) PO daily take with 60mg to make 90 mg daily 08/31/2015 08/30/2015 Inactive Cymbalta 60 mg capsu le,delayed release RxNorm: 703810 1 Capsule(s) PO daily x 7 days and then increase to 90mg daily 08/31/2015 09/07/2015 Inactive levothyroxine 200 mc g tablet RxNorm: 216572 1 Tablet(s) PO daily 08/14/2015 09/29/2015 Inactive Wellbutrin XL 150 mg 24 hr tablet, extended release RxNorm: 485129 1 Tablet(s) PO daily 07/14/2015 09/29/2015 Inactive Cialis 20 mg tablet RxNorm: 677811 1 Tablet(s) PO PRN 07/02/2015 02/15/2016 Inactive not more than 1 tab in 24 hours liothyronine 5 mcg t ablet RxNorm: 409141 1 Tablet(s) PO daily 2015 05/29/2016 Inactive clonazepam 1 mg tablet RxNorm: 240727 1 Tablet(s) PO TID 2015 02/15/2016 Inactive minocycline 50 mg ta blet RxNorm: 606803 1 Tablet(s) PO daily 2015 05/11/2016 Inactive Wellbutrin XL 150 mg 24 hr tablet, extended release RxNorm: 692474 1 Tablet(s) PO daily 04/23/2015 07/13/2015 Inactive levothyroxine 200 mc g tablet RxNorm: 091778 1 Tablet(s) PO daily 04/23/2015 08/13/2015 Inactive Aleve oral RxNorm: 330524 oral No Start Date Active Tylenol 500 mg RxNorm: oral No Start Date Active morphine ER 15 mg ta blet,extended release RxNorm: 328728 oral No Start Date 11/16/2016 Inactive Trazadone 25 mg RxNorm: 2 PO daily No Start Date 09/11/2015 Inactive diclofenac oral RxNorm: 3355 oral No Start Date 05/04/2018 Inactive clonazepam 1 mg tablet RxNorm: 221750 1 Tablet(s) PO QHS No Start Date 06/04/2015 Inactive Wellbutrin XL 150 mg 24 hr tablet, extended release RxNorm: 505483 1 Tablet(s) PO daily No Start Date 04/22/2015 Inactive minocycline 50 mg ta blet RxNorm: 796934 1 Tablet(s) PO daily No Start Date 06/04/2015 Inactive methadone 5 mg tablet RxNorm: 219623 1 Tablet(s) PO Q8 No Start Date 02/15/2016 Inactive Protonix 40 mg table t,delayed release RxNorm: 027332 Tablet(s) PO daily No Start Date 06/16/2016 Inactive Opana ER 15 mg table t, crush resistant, extended release RxNorm: 372619 1 Tablet(s) PO Q12H No Start Date 06/08/2017 Inactive MS Contin 30 mg tabl et,extended release RxNorm: 061142 1 Tablet(s) PO Q12H No Start Date 02/15/2016 Inactive Opana ER 15 mg table t, crush resistant, extended release RxNorm: 885450 1 Tablet(s) PO BID No Start Date 09/15/2016 Inactive liothyronine 5 mcg t ablet RxNorm: 212117 1 Tablet(s) PO daily No Start Date 06/04/2015 Inactive Cialis 20 mg tablet RxNorm: 167774 1 Tablet(s) PO PRN No Start Date 07/01/2015 Inactive not more than 1 tab in 24 hours baclofen 10 mg tablet RxNorm: 388862 1 Tablet(s) PO TID as needed No Start Date 05/11/2016 Inactive morphine 15 mg immed iate release tablet RxNorm: 235223 1 Tablet(s) PO Q6 PRN as needed No Start Date 02/15/2016 Inactive levothyroxine 200 mc g tablet RxNorm: 533327 1 Tablet(s) PO daily No Start Date 04/22/2015 Inactive Opana ER 5 mg tablet , crush resistant, extended release RxNorm: 636470 1 Tablet(s) PO Q6 No Start Date 06/08/2017 Inactive Medication Administered No Medication Administered data Immunizations No Immunization data Assessments Condition Codes Effectiv e Dates Hypothyroidism, unspecified ICD-10: E03.9 ICD-9: 244.9 11/05/2018 Chronic pain syndrome ICD-10: G89.4 ICD-9: 338.4 11/05/2018 Major depressive disorder, recurrent, moderate ICD-10: F33.1 ICD-9: 296.32 11/05/2018 Other fatigue ICD-10: R53.83 ICD-9: 780.79 09/27/2018 [...] Other malaise ICD-10: R53.81 ICD-9: 780.79 03/28/2018 Obstructive sleep apnea (adult) (pediatric) ICD-10: G47.33 [...] Reason For Visit Effective Dates Notes fatigue 11/05/2018 fatigue 09/27/2018 Annual Medicare Wellness Exam 09/17/2018 fatigue 09/03/2018 fatigue 07/05/2018 chest pain/pressure 05/04/2018 fever 03/28/2018 fatigue 02/27/2018 back pain 12/01/2017 Opa na back pain 09/29/2017 Opa na back pain 08/11/2017 Opa na back pain 06/09/2017 Opa na back pain 04/07/2017 Mor brigidane sores 11/17/2016 sores 11/10/2016 back pain 10/14/2016 back pain 09/16/2016 back pain 08/19/2016 back pain 06/17/2016 back pain 05/12/2016 back pain 02/16/2016 back pain 11/17/2015 back pain 08/28/2015 depression 05/28/2015 depression 04/23/2015 Results Observation Observation Code Item Item Code Result Date Free T4 Ihi447 FREE T4 1.54 ng/dL 11/05/2018 Vitamin D 25 Oh Lhb5227 VITAMIN D, 25 HYDROXY 40.65 ng/mL 11/05/2018 Tsh Ord6 TSH (3rd IS) 0.02 uIU/mL 11/05/2018 Vitamin D 25 Oh Vdn5323 VITAMIN D, 25 HYDROXY 30.96 ng/mL 07/06/2018 Comp Metabolic Okc577 NA 141 mEq/L 07/06/2018 Comp Metabolic Ycd210 K 4.2 mEq/L 07/06/2018 Comp Metabolic Foj422 CL 103 mEq/L 07/06/2018 Comp Metabolic Tit256 CO2 29.0 mEq/L 07/06/2018 Comp Metabolic Ezo334 AN ION GAP 13 07/06/2018 Comp Metabolic Zey007 GL UCOSE 105 mg/dL 07/06/2018 Comp Metabolic Fhl008 Cr eat 0.8 mg/dL 07/06/2018 Comp Metabolic Rid083 eG FR 101 ml/min/1.73m2 06/27 Comp Metabolic Sne813 BUN 7 mg/dL 07/06/2018 Comp Metabolic Qly307 B/ C Ratio 8.3 Ratio 07/06/2018 Comp Metabolic Ebz715 CA LCIUM 9.9 mg/dL 07/06/2018 Comp Metabolic Fbm493 AL K PHOS 65 U/L 07/06/2018 Comp Metabolic Vuk453 T(SGOT) 21 U/L 07/06/2018 Comp Metabolic Wnh402 AL T(SGPT) 31 U/L 07/06/2018 Comp Metabolic Kdh889 BI LI T 0.3 mg/dL 07/06/2018 Comp Metabolic Gjt804 AL BUMIN 4.3 g/dL 07/06/2018 Comp Metabolic Qhe134 TP RO 6.4 g/dL 07/06/2018 Comp Metabolic Pyg586 GL OB 2.1 g/dL 07/06/2018 Comp Metabolic Ltr352 A/ G Ratio 2.0 Ratio 07/06/2018 Comp Metabolic Ajb705 Os mo 280 mOsmo 07/06/2018 Cbc With Differential Ord2 WBC 4.78 K/ul 07/06/2018 Cbc With Differential Ord2 RBC 4.68 M/ul 07/06/2018 Cbc With Differential Ord2 HGB 13.7 g/dl 07/06/2018 Cbc With Differential Ord2 Neut% 44.4 % 07/06/2018 Cbc With Differential Ord2 HCT 42.1 % 07/06/2018 Cbc With Differential Ord2 Lymph% 39.5 % 07/06/2018 Cbc With Differential Ord2 MCV 90.0 fl 07/06/2018 Cbc With Differential Ord2 MCH 29.3 pg 07/06/2018 Cbc With Differential Ord2 Pender% 10.5 % 07/06/2018 Cbc With Differential Ord2 Eos% 5.2 % 07/06/2018 Cbc With Differential Ord2 MCHC 32.5 pg 07/06/2018 Cbc With Differential Ord2 PLT 283 K/ul 07/06/2018 Cbc With Differential Ord2 Baso% 0.4 % 07/06/2018 Cbc With Differential Ord2 Neut ABS# 2.12 K/ul 07/06/2018 Cbc With Differential Ord2 RDW 14.0 % 07/06/2018 Cbc With Differential Ord2 Lymph ABS# 1.89 K/ul 07/06/2018 Cbc With Differential Ord2 Pender ABS# 0.5 K/ul 07/06/2018 Cbc With Differential Ord2 Eos ABS# 0.3 K/ul 07/06/2018 Cbc With Differential Ord2 Baso ABS# 0.0 K/ul 07/06/2018 Total Psa Ord10 PSA 0.34 ng/mL 07/06/2018 Tsh Ord6 TSH (3rd IS) 0.02 uIU/mL 07/06/2018 Testosterone Zpt044 Testo 400.6 ng/dL 07/06/2018 Free T4 Szp371 FREE T4 1.48 ng/dL 07/06/2018 [place] Spotted Fever Igg/Igm 36711 3 PARTHA MT SPOTTED FEVER IGM EIA . 04/04/2018 [place] Spotted Fever Igg/Igm 15558 3 RMSF, IGM 0.24 index 04/04/2018 [place] Spotted Fever Igg/Igm 59208 3 PARTHA MT SPOTTED FEVER IGG EIA FLEX . 04/04/2018 [place] Spotted Fever Igg/Igm 51084 3 RMSF, IGG SCREEN-FLEX Equivocal 04/04/2018 [place] Mtn Spot'D Fev Igg 596775 RMSF, IGG- TITER IFA <1:64 04/04/2018 Ehrlichia Chaffeensis Antibody Igg 875943 EHRLICHIA CHAFFEENSIS IGG <1:64 04/02/2018 Ehrlichia Chaffeensis Antibody Igm 811579 EHRLICHIA CHAFFEENSIS IGM < 1:16 04/02/2018 [place] Disease Total Antibodies With Western Blot Refle x [id number] B. BURGDORFERI, IGG/IGM 0.23 03/30/2018 [facility] Total Antibodies With Western Blot Refle x [id number] 03/30/2018 Cbc With Differential Ord2 WBC 5.04 [...] 28.7 pg 03/28/2018 Cbc With Differential Ord2 Pender% 16.1 % 03/28/2018 Cbc With Differential Ord2 [...] 1.37 K/ul 03/28/2018 Cbc With Differential Ord2 Pender ABS# 0.8 K/ul 03/28/2018 Cbc With Differential Ord2 Eos ABS# 0.1 K/ul 03/28/2018 Cbc With Differential Ord2 Baso ABS# 0.0 K/ul 03/28/2018 Comp Metabolic Zyz553 NA 136 mEq/L 02/16/2018 Comp Metabolic Pcc331 K 3.9 mEq/L 02/16/2018 Comp Metabolic Npo263 CL 103 mEq/L 02/16/2018 Comp Metabolic Xdk402 CO2 23.0 mEq/L 02/16/2018 Comp Metabolic Vso339 AN ION GAP 14 02/16/2018 Comp Metabolic Kbg352 GL UCOSE 133 mg/dL 02/16/2018 Comp Metabolic Idd182 Cr eat 0.8 mg/dL 02/16/2018 Comp Metabolic Egb777 eG FR 103 ml/min/1.73m2 01/26 Comp Metabolic Kmj979 BUN 7 mg/dL 02/16/2018 Comp Metabolic Lcn122 B/ C Ratio 8.4 Ratio 02/16/2018 Comp Metabolic Xcw237 CA LCIUM 9.3 mg/dL 02/16/2018 Comp Metabolic Tyh810 AL K PHOS 71 U/L 02/16/2018 Comp Metabolic Skd619 T(SGOT) 42 U/L 02/16/2018 Comp Metabolic Qpf992 AL T(SGPT) 69 U/L 02/16/2018 Comp Metabolic Lmu506 BI LI T 0.3 mg/dL 02/16/2018 Comp Metabolic Csm021 AL BUMIN 4.1 g/dL 02/16/2018 Comp Metabolic Ean373 TP RO 6.3 g/dL 02/16/2018 Comp Metabolic Lig495 GL OB 2.2 g/dL 02/16/2018 Comp Metabolic Qla139 A/ G Ratio 1.8 Ratio 02/16/2018 Comp Metabolic Rit419 Os mo 272 mOsmo 02/16/2018 Free T4 Ybe298 FREE T4 1.85 ng/dL 02/16/2018 Ferritin Ord22 FERRITIN 161.7 ng/mL 02/16/2018 Tsh Ord6 TSH (3rd IS) 0.01 uIU/mL 02/16/2018 Test(s) Not Perfromed [id number] Test(s) Not Performed Test(s) Not Performed. See Below: 02/16/2018 Test(s) Not Perfromed [id number] TEST NAME CBC 02/16/2018 Test(s) Not Perfromed [id number] Rejection Reason No Suitable Specimen Receive d 02/16/2018 Test(s) Not Perfromed [id number] COMMENT Please Recollect Sample 02/16/2018 Test(s) Not Perfromed [id number] Branch Rental Manager Fernando Goyal 02/16/2018 Tibc Ord40 Iron 138 [...] 26.4 pg 01/05/2018 Cbc With Differential Ord2 Pender% 11.9 % 01/05/2018 Cbc With Differential Ord2 [...] 2.08 K/ul 01/05/2018 Cbc With Differential Ord2 Pender ABS# 0.6 K/ul 01/05/2018 Cbc With Differential Ord2 Eos ABS# 0.2 K/ul 01/05/2018 Cbc With Differential Ord2 Baso ABS# 0.0 K/ul 01/05/2018 Ferritin Ord22 FERRITIN 5.7 ng/mL 12/06/2017 Tibc Ord40 Iron 33 ug/dl 12/06/2017 Tibc Ord40 UIBC 431 ug/dL 12/06/2017 Tibc Ord40 TIBC 464 ug/dL 12/06/2017 Tibc Ord40 Fe-%Sat 7.1 % 12/06/2017 Free T4 Otq984 FREE T4 1.82 ng/dL 12/01/2017 Tsh Ord6 hTSH II 0.07 uIU/mL 12/01/2017 Cbc With Differential Ord2 WBC 4.15 K/ul 12/01/2017 Cbc With Differential Ord2 RBC 4.00 M/ul 12/01/2017 Cbc With Differential Ord2 HGB 10.8 g/dl 12/01/2017 Cbc With Differential Ord2 HCT 33.3 % 12/01/2017 Cbc With Differential Ord2 Neut% 38.0 % 12/01/2017 Cbc With Differential Ord2 Lymph% 46.3 % 12/01/2017 Cbc With Differential Ord2 MCV 83.3 fl 12/01/2017 Cbc With Differential Ord2 Pender% 10.6 % 12/01/2017 Cbc With Differential Ord2 MCH 27.0 pg 12/01/2017 Cbc With Differential Ord2 Eos% [...] 1.92 K/ul 12/01/2017 Cbc With Differential Ord2 Pender ABS# 0.4 K/ul 12/01/2017 Cbc With Differential Ord2 Eos ABS# 0.2 K/ul 12/01/2017 Cbc With Differential Ord2 Baso ABS# 0.0 K/ul 12/01/2017 Comp Metabolic Coh990 NA 136 mEq/L 12/01/2017 Comp Metabolic Ugn605 K 4.6 mEq/L 12/01/2017 Comp Metabolic Nfk547 CL 102 mEq/L 12/01/2017 Comp Metabolic Vkk518 CO2 27.0 mEq/L 12/01/2017 Comp Metabolic Mhk180 AN ION GAP 12 12/01/2017 Comp Metabolic Fip965 GL UCOSE 90 mg/dL 12/01/2017 Comp Metabolic Ahu793 Cr eat 0.7 mg/dL 12/01/2017 Comp Metabolic Mtc143 eG FR 123 ml/min/1.73m2 03/2018 Comp Metabolic Fyy749 BUN 4 mg/dL 12/01/2017 Comp Metabolic Luc717 B/ C Ratio 5.6 Ratio 12/01/2017 Comp Metabolic Ecl482 CA LCIUM 9.0 mg/dL 12/01/2017 Comp Metabolic Jqs806 AL K PHOS 67 U/L 12/01/2017 Comp Metabolic Rnj160 T(SGOT) 30 U/L 12/01/2017 Comp Metabolic Ejt633 AL T(SGPT) 29 U/L 12/01/2017 Comp Metabolic Vvz096 BI LI T 0.3 mg/dL 12/01/2017 Comp Metabolic Pre744 AL BUMIN 4.1 g/dL 12/01/2017 Comp Metabolic Koq746 TP RO 6.1 g/dL 12/01/2017 Comp Metabolic Czs625 GL OB 2.0 g/dL 12/01/2017 Comp Metabolic Wwo435 A/ G Ratio 2.0 Ratio 12/01/2017 Comp Metabolic Bfg568 Os mo 268 mOsmo 12/01/2017 Comp Metabolic Tjt754 NA 136 mEq/L 02/16/2016 Comp Metabolic Ojt044 K 4.2 mEq/L 02/16/2016 Comp Metabolic Yva240 CL 104 mEq/L 02/16/2016 Comp Metabolic Ipy612 CO2 20.0 mEq/L 02/16/2016 Comp Metabolic Xkj198 AN ION GAP 16 02/16/2016 Comp Metabolic Vxi698 GL UCOSE 71 mg/dL 02/16/2016 Comp Metabolic Uwr430 Cr eat 0.8 mg/dL 02/16/2016 Comp Metabolic Zmy467 eG FR 113 ml/min/1.73m2 01/26 Comp Metabolic Sah388 BUN 7 mg/dL 02/16/2016 Comp Metabolic Qld109 B/ C Ratio 9.1 Ratio 02/16/2016 Comp Metabolic Xsm720 CA LCIUM 9.4 mg/dL 02/16/2016 Comp Metabolic Ihp710 AL K PHOS 57 U/L 02/16/2016 Comp Metabolic Jtw290 T(SGOT) 30 U/L 02/16/2016 Comp Metabolic Teh865 AL T(SGPT) 27 U/L 02/16/2016 Comp Metabolic Mjo403 BI LI T 0.2 mg/dL 02/16/2016 Comp Metabolic Net622 AL BUMIN 4.4 g/dL 02/16/2016 Comp Metabolic Gpb185 TP RO 6.5 g/dL 02/16/2016 Comp Metabolic Mys341 GL OB 2.1 g/dL 02/16/2016 Comp Metabolic Akg162 A/ G Ratio 2.1 Ratio 02/16/2016 Comp Metabolic Twy688 Os mo 268 mOsmo 02/16/2016 Free T4 Yao039 FREE T4 1.20 ng/dL 02/16/2016 Cbc With [...] 90.6 fl 02/16/2016 Cbc With Differential Ord2 Pender% 9.6 % 02/16/2016 Cbc With Differential Ord2 [...] 1.50 K/ul 02/16/2016 Cbc With Differential Ord2 Pender ABS# 0.5 K/ul 02/16/2016 Cbc With Differential [...] Result Effective Dates Constitutional No recent illness 11/05/2018 Constitutional No [...] lips 09/03/2018 None Full Exam - General 1995 Ears/Nose/Throat [...] 4: G0439 09/17/2018 Vital Signs Date Vital 11/05/2018 Blood Pressure 1: 122/64 Code: 8480-6 BMI: 37.4 Code: 99349-9 Heart Rate 1: 66 bpm Height: 5'6" SpO2: 97% Weight: 232 lbs 09/27/2018 Blood Pressure 1: 92/66 Code: 8480-6 BMI: 37.9 Code: 74652-8 Heart Rate 1: 66 bpm Height: 5'6" SpO2: 98% Weight: 235 lbs 09/17/2018 Blood Pressure 1: 110/72 Code: 8480-6 BMI: 38.3 Code: 27476-0 Heart Rate 1: 77 bpm Height: 5'6" SpO2: 95% Waist Measure (cm): 102 cm Weight: 237 lbs 09/03/2018 Blood Pressure 1: 122/68 Code: 8480-6 BMI: 37.6 Code: 30758-2 Heart Rate 1: 78 bpm Height: 5'6" SpO2: 97% Weight: 233 lbs 07/05/2018 Blood Pressure 1: 94/62 Code: 8480-6 BMI: 36.8 Code: 29867-2 Heart Rate 1: 88 bpm Height: 5'6" SpO2: 99% Weight: 228 lbs 05/04/2018 Blood Pressure 1: 110/80 Code: 8480-6 BMI: 35.5 Code: 19361-2 Heart Rate 1: 80 bpm Height: 5'6" SpO2: 99% Weight: 220 lbs 03/28/2018 Blood Pressure 1: 110/72 Code: 8480-6 BMI: 35.0 Code: 56724-5 Heart Rate 1: 80 bpm Height: 5'6" SpO2: 98% Temperature: 36.2 (C ) / 97.1 (F) Weight: 217 lbs 02/27/2018 Blood Pressure 1: 136/76 Code: 8480-6 BMI: 36.0 Code: 32021-5 Heart Rate 1: 80 bpm Height: 5'6" SpO2: 98% Weight: 223 lbs 12/01/2017 Blood Pressure 1: 132/72 Code: 8480-6 BMI: 33.4 Code: 05252-2 Heart Rate 1: 82 bpm Height: 5'6" SpO2: 97% Weight: 207 lbs 09/29/2017 Blood Pressure 1: 124/68 Code: 8480-6 BMI: 32.1 Code: 03458-9 Heart Rate 1: 77 bpm Height: 5'6" SpO2: 98% Weight: 199 lbs 08/11/2017 Blood Pressure 1: 154/82 Code: 8480-6 BMI: 31.6 Code: 14961-6 Heart Rate 1: 75 bpm Height: 5'6" SpO2: 98% Weight: 196 lbs 06/09/2017 Blood Pressure 1: 148/88 Code: 8480-6 BMI: 28.6 Code: 83504-7 Heart Rate 1: 88 bpm Height: 5'6" SpO2: 98% Weight: 177 lbs 04/07/2017 Blood Pressure 1: 140/84 Code: 8480-6 BMI: 30.3 Code: 50094-9 Heart Rate 1: 81 bpm Height: 5'6" SpO2: 99% Weight: 188 lbs 11/17/2016 Blood Pressure 1: 130/72 Code: 8480-6 Heart Rate 1: 63 bpm Height: SpO2: 93% Weight: 11/10/2016 Blood Pressure 1: 128/86 Code: 8480-6 BMI: 30.3 Code: 17039-3 Heart Rate 1: 84 bpm Height: 5'6" SpO2: 96% Weight: 188 lbs 10/14/2016 Heigh t: 5'6" 09/16/2016 Blood Pressure 1: 130/80 Code: 8480-6 BMI: 30.3 Code: 64861-9 Heart Rate 1: 67 bpm Height: 5'6" SpO2: 99% Weight: 188 lbs 08/19/2016 Blood Pressure 1: 110/62 Code: 8480-6 BMI: 29.9 Code: 48183-7 Heart Rate 1: 70 bpm Height: 5'6" SpO2: 97% Weight: 185 lbs 06/17/2016 Blood Pressure 1: 112/68 Code: 8480-6 BMI: 27.6 Code: 96322-6 Heart Rate 1: 61 bpm Height: 5'6" SpO2: 98% Weight: 171 lbs 05/12/2016 Blood Pressure 1: 130/76 Code: 8480-6 BMI: 29.7 Code: 40651-1 Heart Rate 1: 103 bpm Height: 5'6" SpO2: 98% Weight: 184 lbs 02/16/2016 Blood Pressure 1: 140/82 Code: 8480-6 BMI: 28.7 Code: 85531-8 Heart Rate 1: 66 bpm Height: 5'6" SpO2: 99% Weight: 178 lbs 11/17/2015 Blood Pressure 1: 120/74 Code: 8480-6 BMI: 29.4 Code: 43979-6 Heart Rate 1: 90 bpm Height: 5'6" SpO2: 94% Weight: 182 lbs 08/28/2015 Blood Pressure 1: 128/76 Code: 8480-6 BMI: 27.9 Code: 83870-8 Heart Rate 1: 80 bpm Height: 5'6" SpO2: 98% Weight: 173 lbs 05/28/2015 Blood Pressure 1: 122/70 Code: 8480-6 BMI: 27.0 Code: 77083-2 Heart Rate 1: 74 bpm Height: 5'6" SpO2: 98% Weight: 167 lbs 04/23/2015 Blood Pressure 1: 110/60 Code: 8480-6 BMI: 27.0 Code: 91111-9 Heart Rate 1: 68 bpm Height: 5'6" Weight: 167 lbs Functional Status No Functional Status data History of Present Illness Symptom Name Status Resu lt Effective Date Notes Limitation on Activities moderately limits activities 11/05/2018 [...] and Resolution ongoing 09/03/2018 None hypothyroid Quality chronic disease manager fe 09/03/2018 None hypothyroid Onset and [...] fatigue Quality constant 07/05/2018 None hypothyroid Quality chronic disease manager fe 07/05/2018 None hypothyroid Onset and [...] Findings weight loss 03/28/2018 None hypothyroid Quality chronic disease manager fe 02/27/2018 None hypothyroid Onset and [...] Encounters Encounter Performer Loca tion Codes Date ([id number]) 60738 EST. P ATIENT, LEVEL IV Diagnosis: Hypothyroidism, unspecified[ICD10: E03.9] Diagnosis: Major depressive disorder, recurrent, moderate[ICD10: F33.1] Diagnosis: Chronic pain syndrome[ICD10: G89.4] Leydi Jacobo MD, [facility] CPT-4: 38846 11/05/2018 ([id number]) 34761 EST. P ATIENT, LEVEL IV Diagnosis: Chronic pain syndrome[ICD10: G89.4] Diagnosis: Hypothyroidism, unspecified[ICD10: E03.9] Diagnosis: Other fatigue[ICD10: R53.83] Diagnosis: Other obesity due to excess calories[ICD10: E66.09] Diagnosis: Major depressive disorder, recurrent, moderate[ICD10: F33.1] Leydi Jacobo MD, [facility] CPT-4: 97638 09/27/2018 ([id number]) 39681 EST. P ATIENT, LEVEL III Diagnosis: Chronic pain syndrome[ICD10: G89.4] Leydi Jacobo MD, [facility] CPT-4: 71308 09/03/2018 ([id number]) 35298 EST. P ATIENT, LEVEL IV Diagnosis: Hypothyroidism, unspecified[ICD10: E03.9] Diagnosis: Major depressive disorder, recurrent, moderate[ICD10: F33.1] Diagnosis: Chronic pain syndrome[ICD10: G89.4] Diagnosis: Other male erectile dysfunction[ICD10: N52.8] Diagnosis: Other fatigue[ICD10: R53.83] Diagnosis: Encounter for screening for malignant neoplasm of prostate[ICD10: Z12.5] Leydi Jacobo MD, [facility] CPT-4: 41257 07/05/2018 ([id number]) 85262 EST. P ATIENT, LEVEL IV Diagnosis: Chronic pain syndrome[ICD10: G89.4] Diagnosis: Hypothyroidism, unspecified[ICD10: E03.9] Diagnosis: Major depressive disorder, recurrent, moderate[ICD10: F33.1] Leydi Jacobo MD, [facility] CPT-4: 70228 05/04/2018 42376 EST. PATIENT, LEVEL IV Diagnosis: Melena[ICD10: K92.1] Diagnosis: Other malaise[ICD10: R53.81] Diagnosis: Other fatigue[ICD10: R53.83] Diagnosis: Pain in unspecified joint[ICD10: M25.50] Diagnosis: Diarrhea, unspecified[ICD10: R19.7] Denae Jacobo MD, [facility] CPT-4: 07278 03/28/2018 ([id number]) 25783 EST. P ATIENT, LEVEL IV Diagnosis: Chronic pain syndrome[ICD10: G89.4] Diagnosis: Hypothyroidism, unspecified[ICD10: E03.9] Diagnosis: Other obesity due to excess calories[ICD10: E66.09] Diagnosis: Major depressive disorder, recurrent, moderate[ICD10: F33.1] Diagnosis: Obstructive sleep apnea (adult) (pediatric)[ICD10: G47.33] Leydi Jacobo MD, [facility] CPT-4: 50003 02/27/2018 46552 EST. PATIENT, LEVEL IV Diagnosis: Other specified hypothyroidism[ICD10: E03.8] Diagnosis: Chronic pain syndrome[ICD10: G89.4] Diagnosis: Major depressive disorder, recurrent, moderate[ICD10: F33.1] Denae Jacobo MD, [facility] CPT-4: 27170 12/01/2017 ([id number]) 37485 EST. P ATIENT, LEVEL IV Diagnosis: Chronic pain syndrome[ICD10: G89.4] Diagnosis: Alcohol dependence, uncomplicated[ICD10: F10.20] Diagnosis: Major depressive disorder, recurrent, moderate[ICD10: F33.1] Leydi Jacobo MD, [facility] CPT-4: 06406 09/29/2017 ([id number]) 51882 EST. P ATIENT, LEVEL IV Diagnosis: Chronic pain syndrome[ICD10: G89.4] Diagnosis: Alcohol dependence, uncomplicated[ICD10: F10.20] Diagnosis: Major depressive disorder, recurrent, moderate[ICD10: F33.1] Leydi Jacobo MD, [facility] CPT-4: 64018 08/11/2017 ([id number]) 05523 EST. P ATIENT, LEVEL III Diagnosis: Chronic pain syndrome[ICD10: G89.4] Diagnosis: Major depressive disorder, recurrent, moderate[ICD10: F33.1] Leydi Jacobo MD, [facility] CPT-4: 90941 06/09/2017 ([id number]) 79949 EST. P ATIENT, LEVEL III Diagnosis: Chronic pain syndrome[ICD10: G89.4] Diagnosis: Pain in left knee[ICD10: M25.562] Leydi Jacobo MD, [facility] CPT- 4: 47554 04/07/2017 27951 EST. PATIENT, LEVEL II Diagnosis: Superficial foreign body of left upper arm, initial encounter[ICD10: S40.852A] Diagnosis: Cellulitis of left upper limb[ICD10: L03.114] Leydi Jacobo MD, [facility] CPT-4: 85782 11/17/2016 12935 EST. PATIENT, LEVEL II Diagnosis: Cellulitis of left upper limb[ICD10: L03.114] Leydi Jacobo MD, [facility] CPT-4: 88187 11/10/2016 ([id number]) 27113 EST. P ATIENT, LEVEL III Diagnosis: Chronic pain syndrome[ICD10: G89.4] Diagnosis: Major depressive disorder, recurrent, moderate[ICD10: F33.1] Leydi Jacobo MD, [facility] CPT-4: 52566 10/14/2016 04292 EST. PATIENT, LEVEL IV Diagnosis: Psychophysiologic insomnia[ICD10: F51.04] Diagnosis: Major depressive disorder, recurrent, moderate[ICD10: F33.1] Diagnosis: Alcohol dependence, uncomplicated[ICD10: F10.20] Diagnosis: Chronic pain syndrome[ICD10: G89.4] Leydi Jacobo MD, [facility] CPT-4: 42838 09/16/2016 ([id number]) 04235 EST. P ATIENT, LEVEL III Diagnosis: Pain in left shoulder[ICD10: M25.512] Diagnosis: Major depressive disorder, recurrent, moderate[ICD10: F33.1] Diagnosis: Psychophysiologic insomnia[ICD10: F51.04] Leydi Jacobo MD, [facility] CPT-4: 68707 08/19/2016 ([id number]) 17115 EST. P ATIENT, LEVEL III Diagnosis: Gastro-esophageal reflux disease without esophagitis[ICD10: K21.9] Diagnosis: Hypothyroidism, unspecified[ICD10: E03.9] Leydi Jacobo MD, [facility] CPT-4: 06526 06/17/2016 ([id number]) 03353 EST. P ATIENT, LEVEL IV Diagnosis: Gastro-esophageal reflux disease without esophagitis[ICD10: K21.9] Diagnosis: Hypothyroidism, unspecified[ICD10: E03.9] Diagnosis: Major depressive disorder, recurrent, moderate[ICD10: F33.1] Leydi Jacobo MD, [facility] CPT-4: 66175 05/12/2016 ([id number]) 49784 EST. P ATIENT, LEVEL III Diagnosis: Cervicalgia[ICD10: M54.2] Diagnosis: Hypothyroidism, unspecified[ICD10: E03.9] Diagnosis: Other male erectile dysfunction[ICD10: N52.8] Leydi Jacobo MD, [facility] CPT-4: 92191 02/16/2016 ([id number]) 77696 EST. P ATIENT, LEVEL III Diagnosis: Lumbago with sciatica, unspecified side[ICD10: M54.40] Diagnosis: Other male erectile dysfunction[ICD10: N52.8] Leydi Jacobo MD, [facility] CPT-4: 16876 11/17/2015 ([id number]) 04833 EST. P ATIENT, LEVEL III Diagnosis: Lumbago with sciatica, unspecified side[ICD10: M54.40] Diagnosis: Hypothyroidism, unspecified[ICD10: E03.9] Diagnosis: Other male erectile dysfunction[ICD10: N52.8] Leydi Jacobo MD, [facility] CPT-4: 13662 08/28/2015 ([id number]) 47561 EST. P ATIENT, LEVEL III Diagnosis: Back pain, chronic[ICD9: 724.5] Diagnosis: Depression[ICD9: 311] Diagnosis: Hypothyroid[ICD9: 244.9] Diagnosis: Bilateral calf pain[ICD9: 729.5] Julieta Jacobo MD, [facility] CPT-4: 18095 05/28/2015 ([id number]) OFFICE VISI T, NEW - LEVEL 4 Diagnosis: Back pain, chronic[ICD9: 724.5] Diagnosis: Depression[ICD9: 311] Diagnosis: Hypothyroid[ICD9: 244.9] Julieta Jacobo MD, [facility] CPT-4: 74756 04/23/2015 Plan of Care Planned Activity Notes C odes Status Date Visit Plan: Hypothyroidism - pt wit h [...] No change in current medications. 11/05/2018 Appointment: Ledyi Hightower WPtel: [address] [place], [place] [phone] (30 min) [facility] 11/05/2018 Patient Education: Patient Medication Summary Completed [...] control. 09/27/2018 Appointment: Leydi Hightower WPtel: [phone] [phone] (15 min) Moderate 09/27/2018 Patient Education: Patient [...] care surrogate. 09/17/2018 Appointment: Leydi Hightower WPtel: [phone] [facility] - Annual Wellness Visit 09/17/2018 Patient Education: Patient Medication Summary Completed 09/17/2018 Visit Plan: Chronic Pain Syndrome - pt has chronic pain - has been maintained on current medications, has not sought out other medications, only uses PRN pain medications as directed, and understands the consequences of over-medication. 09/03/2018 Appointment: Leydi Hightower WPtel: [phone] [place] (30 min) Complex 09/03/2018 Patient Education: Patient [...] exposure. No change in current medications. Fatigue-weight moiy-FQ-mbakw labs including testosterone level 07/05/2018 Visit Plan: [...] exposure. No change in current medications. Fatigue-weight ogom-KE-rrpvn labs including testosterone level 07/05/2018 Appointment: Leydi Hightower WPtel: [address] [place], [place] [phone] [place] (15 min) Moderate 07/05/2018 Patient Education: [...] BID 05/04/2018 Appointment: Leydi Hightower WPtel: [phone] [phone] (15 min) Moderate 05/04/2018 Patient Education: [...] pain. 03/28/2018 Appointment: Denae Martínez [facility]el[phone] [phone] (30 min) Complex 03/28/2018 [...] this time. 02/27/2018 Appointment: [facility]el[facility] [phone] [phone] (15 min) Moderate 02/27/2018 [...] of control. 12/01/2017 Appointment: Denae Martínez [facility]Ptel[facility] [phone] [facility] (30 min) Complex 12/01/2017 [...] outpatient treatment 09/29/2017 Appointment: Leydi Hightower WPtel: [facility] (30 min) Complex 09/29/2017 Patient Education: Patient [...] cons ider 08/11/2017 Appointment: Leydi Hightower WPtel: [address] [place], [place] [phone] (30 min) Complex 08/11/2017 Patient Education: Patient [...] current medications. 06/09/2017 Appointment: Leydi Hightower WPtel: [facility] [place] [phone] (30 min) Complex 06/09/2017 Patient Education: Patient [...] completely resolve 11/17/2016 Appointment: Leydi Hightower WPtel: [phone] (30 min) Complex 11/17/2016 Patient Education: [...] in pain. 11/10/2016 Appointment: Leydi Hightower WPtel[facility] [phone] [phone] (30 min) Complex 11/10/2016 Patient Education: Patient [...] of plan. 10/14/2016 Appointment: Leydi Hightower WPtel: [phone] (30 min) Complex 10/14/2016 [...] will try 09/16/2016 Appointment: Leydi Hightower WPtel: [phone] (30 min) Complex 09/16/2016 Patient Education: Patient Medication Summary Completed 09/16/2016 Visit Plan: Left shoulder and elbow pain-xray shoulder and elbow Zllmuoyutq-gmzftape-itcvgxeegyve-d/c trazodone-start remeron at bedtime Pt has been [...] this patient. 08/19/2016 Appointment: Leydi Hightower WPtel: [phone] (30 min) Complex 08/19/2016 Patient Education: [...] Completed 06/17/2016 Appointment: Leydi Hightower WPtel: [phone] [phone] (30 min) Complex 06/09/2016 Visit Plan: [...] of control. 05/12/2016 Appointment: Leydi Hightower WPtel: [phone] [phone] (30 min) Complex 05/12/2016 [...] in office. 05/28/2015 Appointment: Leydi Hightower WPtel: [address] [place], [place] [phone] (30 min) Complex 05/28/2015 Patient Education: Patient [...] Care Plan: COMPLETE CBC AUTOMATED LOINC : 49829-2 Ordered 04/23/2015 Instructions Comment DECREASE LEVOTHYROXI NE [...] situational exposure. No change in current medications. Repeat labs in 2 mon ths . [...] exposure. No change in current medications. Fatigue-weight mddj-OL-stzbu labs including testosterone level . Chronic Pain [...] exposure. No change in current medications. Fatigue-weight wqzy-ZU-tezzy labs including testosterone level Get Immodium over [...] and elbow pain-xray shou lder and elbow Snmfgozfnp-pytlgzqj-iqarqckfyoep-d/c trazodone-start remeron at bedtime Pt has been [...] ED-samples of cialis for prn use . 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 Chronic Pain [...]
--- OUTSIDE RECORDS SUMMARY | 2020-03-17 15:05 | XMS REPORT | CCD ---
Author Author Thai Castillo Organization Sara Jacobo MD, [facility] Address [address] [place] [address] Phone Care Team Providers Care Cancer Registry Manager Name Role Phone PP Unavailable CCM Unavailable Summary Purpose Interface Exchange Insurance Providers Payer name Policy type / Coverage type Covered constitution party ID Effective Begin Date Effective End Date WPS Medicare Part B Medicare Part B [id number] Unknown [facility] icare Part B [id number] Un known Family history Father Diagnosis Age At Onset Colon cancer Unknown Social History Social History Element Codes Description Effective Dates Employment Unknown [employer] nt[employer] unemployed Before disability 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 09/27/2018 On Disability Unknown Yes 09/27/2018 Marital status Unknown D ivorced 04/23/[address]: 060931253 Never smoker 04/23/[address]: 358581 Currently drinks alcohol occasionally drinks 04/23/2015 Allergies, [...] Fill Instructions trazodone 50 mg tablet RxNorm: 255439 TAKE ONE TABLET BY MOUTH EVERY NIGHT AT BEDTIME AND ONE-HALF TABLET BY MOUTH NEEDED 11/12/2018 12/21/2018 Active tizanidine 4 mg tablet RxNorm: 837565 TAKE ONE TABLET BY MOUTH THREE TIMES A D AY NEEDED 10/22/2018 02/18/2019 Active diclofenac sodium 75 mg tablet,delayed release RxNorm: 684424 TAKE ONE TABLET BY [facility] TWICE A DAY 10/15/2018 02/11/2019 Active Lasix 20 mg tablet RxNorm: 519268 1 Tablet(s) PO daily as needed 10/10/2018 11/08/2018 In active potassium chloride E R 10 mEq tablet,extended release RxNorm: 886767 1 Tablet(s) PO daily as needed to take with lasix for inceased edema 10/10/2018 11/08/2018 Inactive potassium chloride E R 10 mEq tablet,extended release RxNorm: 586254 1 Tablet(s) PO daily as needed to take with lasix for inceased edema 10/10/2018 10/09/2018 Inactive Lasix 20 mg tablet RxNorm: 917014 1 Tablet(s) PO daily as needed 10/10/2018 10/09/2018 In active doxycycline hyclate 100 mg tablet RxNorm: 3069078 1 Tablet(s) PO BID 09/27/2018 10/10/2018 Inactive Remeron 15 mg tablet RxNorm: 806075 1.5 Tablet(s) PO QPM TAKE ONE TABLET BY MOUTH EVERY NIGHT AT BEDTIME 09/18/2018 12/16/2018 Active baclofen 10 mg tablet RxNorm: 715306 TAKE ONE TABLET BY MOUTH THREE TIMES A D AY NEEDED 09/12/2018 11/10/2018 Inactive oxymorphone 5 mg tablet RxNorm: 470754 1 Tablet(s) PO Q6 PRN 09/03/2018 11/01/2018 Inactive morphine 30 mg table t, crush resistant, extended release RxNorm: 4853809 1 Tablet(s) PO BID 09/03/2018 11/01/2018 Inactive Remeron 15 mg tablet RxNorm: 991543 1.5 Tablet(s) PO QPM TAKE ONE TABLET BY MOUTH EVERY NIGHT AT BEDTIME 09/03/2018 09/17/2018 Inactive trazodone 50 mg tablet RxNorm: 620167 TAKE ONE TABLET BY MOUTH EVERY NIGHT AT BEDTIME AND ONE-HALF TABLET BY MOUTH NEEDED 09/03/2018 10/12/2018 Inactive tizanidine 4 mg tablet RxNorm: 448805 TAKE ONE TABLET BY MOUTH THREE TIMES A D AY NEEDED 08/20/2018 10/18/2018 Inactive Protonix 40 mg table t,delayed release RxNorm: 379199 TAKE ONE TABLET BY MO [facility] DAILY 08/10/2018 02/05/2019 Ac tive Carafate 1 gram tablet RxNorm: 087473 TAKE ONE TABLET BY MOUTH BEFORE MEALS AN D AT BEDTIME NEEDED FOR HEARTBURN 07/31/2018 12/27/2018 Active Protonix 40 mg table t,delayed release RxNorm: 563053 1 Tablet(s) BID 07/24/2018 07/23/2018 Inactive Protonix 40 mg table t,delayed release RxNorm: 461285 1 Tablet(s) daily 07/24/2018 08/09/2018 In active liothyronine 5 mcg t ablet RxNorm: 239469 TAKE ONE TABLET BY MO [facility] DAILY 07/19/2018 01/14/2019 Ac tive baclofen 10 mg tablet RxNorm: 806596 TAKE ONE TABLET BY MOUTH THREE TIMES A D AY NEEDED 07/12/2018 09/09/2018 Inactive levothyroxine 175 mc g tablet RxNorm: 770349 1 Tablet(s) PO daily 07/11/2018 11/07/2018 Inactive Vitamin D2 50,000 un it capsule RxNorm: 9070255 1 Capsule(s) PO QW 07/11/2018 10/02/2018 Inactive trazodone 50 mg tablet RxNorm: 288461 TAKE ONE TABLET BY MOUTH EVERY NIGHT AT BEDTIME AND ONE-HALF TABLET BY MOUTH NEEDED 07/11/2018 08/19/2018 Inactive Vitamin D2 50,000 un it capsule RxNorm: 1821690 1 Capsule(s) PO QW 07/11/2018 07/10/2018 Inactive morphine 30 mg table t, crush resistant, extended release RxNorm: 1330617 1 Tablet(s) PO BID 07/05/2018 09/02/2018 Inactive oxymorphone 5 mg tablet RxNorm: 588336 1 Tablet(s) PO Q6 PRN 07/05/2018 09/02/2018 Inactive bupropion HCl XL 300 mg 24 hr tablet, extended release RxNorm: 051507 TAKE ONE TABLET BY MOUTH DAILY 06/27/2018 12/23/2018 Active Remeron 15 mg tablet RxNorm: 955091 TAKE ONE TABLET BY MOUTH EVERY NIGHT AT BEDTIME 06/27/2018 09/02/2018 Inactive tizanidine 4 mg tablet RxNorm: 236674 TAKE ONE TABLET BY MOUTH THREE TIMES A D AY NEEDED 06/20/2018 08/18/2018 Inactive doxycycline hyclate 100 mg tablet RxNorm: 2405413 1 Tablet(s) PO BID 06/18/2018 07/01/2018 Inactive Protonix 40 mg table t,delayed release RxNorm: 421898 TAKE ONE TABLET BY [facility] DAILY 06/11/2018 07/23/2018 In active doxycycline hyclate 100 mg tablet RxNorm: 7020809 1 Tablet(s) PO BID 05/22/2018 06/04/2018 Inactive baclofen 10 mg tablet RxNorm: 828399 TAKE ONE TABLET BY MOUTH THREE TIMES A D AY NEEDED 05/14/2018 07/11/2018 Inactive diclofenac sodium 75 mg tablet,delayed release RxNorm: 761404 TAKE ONE TABLET BY [facility] TWICE A DAY 05/07/2018 10/03/2018 Inactive oxymorphone 5 mg tablet RxNorm: 041354 1 Tablet(s) PO Q6 PRN 05/04/2018 07/02/2018 Inactive morphine 30 mg table t, crush resistant, extended release RxNorm: 0851991 1 Tablet(s) PO BID 05/04/2018 07/02/2018 Inactive doxycycline hyclate 100 mg tablet RxNorm: 180228 1 Tablet(s) PO BID 04/24/2018 04/23/2018 Inactive doxycycline hyclate 100 mg tablet RxNorm: 2562193 1 Tablet(s) PO BID 04/24/2018 05/03/2018 Inactive baclofen 10 mg tablet RxNorm: 895497 TAKE ONE TABLET BY MOUTH THREE TIMES A D AY NEEDED 04/13/2018 05/12/2018 Inactive trazodone 50 mg tablet RxNorm: 148305 TAKE ONE TABLET BY MOUTH EVERY NIGHT AT BEDTIME AND ONE-HALF TABLET BY MOUTH NEEDED 04/09/2018 06/07/2018 Inactive Questran 4 gram powd er for susp in a packet RxNorm: 755652 1 packet PO BID 04/06/2018 06/04/2018 In active Questran 4 gram powd er for susp in a packet RxNorm: 742106 1 packet PO BID 04/06/2018 04/05/2018 In active Carafate 1 gram tablet RxNorm: 101552 1 Tablet(s) PO AC & HS as needed for hea rtburn 03/28/2018 04/26/2018 Inactive baclofen 10 mg tablet RxNorm: 712107 TAKE ONE TABLET BY MOUTH THREE TIMES A D AY NEEDED 03/16/2018 04/12/2018 Inactive Protonix 40 mg table t,delayed release RxNorm: 013782 TAKE ONE TABLET BY MO [facility] DAILY 03/16/2018 06/10/2018 In active Belviq XR 20 mg tabl et,extended release RxNorm: 8484348 1 Tablet(s) PO daily 02/27/2018 04/27/2018 In active oxymorphone 5 mg tablet RxNorm: 069611 1 Tablet(s) PO Q6 PRN 02/27/2018 04/27/2018 Inactive morphine 30 mg table t, crush resistant, extended release RxNorm: 7248445 1 Tablet(s) PO BID 02/27/2018 04/27/2018 Inactive levothyroxine 100 mc g tablet RxNorm: 819149 1 Tablet(s) PO daily 02/27/2018 07/10/2018 Inactive take with 88mcg to = 188mcg daily levothyroxine 88 mcg tablet RxNorm: 700379 1 Tablet(s) PO daily 02/27/2018 07/10/2018 Inactive take with 100mcg to = 188mcg daily morphine 30 mg table t, crush resistant, extended release RxNorm: 5117257 1 Tablet(s) PO BID 02/14/2018 02/26/2018 Inactive levothyroxine 200 mc g tablet RxNorm: 798778 Tablet(s) TAKE ONE TA BLET BY MOUTH DAILY 01/18/2018 02/26/2018 Inactive Updated script baclofen 10 mg tablet RxNorm: 652632 Tablet(s) TAKE ONE TABLET BY MOUTH THREE TIMES A DAY NEEDED 01/15/2018 02/13/2018 Inactive morphine 30 mg table t, crush resistant, extended release RxNorm: 7373720 1 Tablet(s) PO BID 01/15/2018 02/13/2018 Inactive tizanidine 4 mg tablet RxNorm: 162133 TAKE ONE TABLET BY MOUTH THREE TIMES A D AY NEEDED 01/02/2018 04/01/2018 Inactive Request already responded t o by other means (e.g. phone or fax) bupropion HCl XL 300 mg 24 hr tablet, extended release RxNorm: 461638 TAKE ONE TABLET BY MOUTH DAILY 12/29/2017 06/26/2018 Inactive Tamiflu 75 mg capsule RxNorm: 668996 1 Capsule(s) PO BID 12/27/2017 12/31/2017 Inactive Tamiflu 75 mg capsule RxNorm: 869136 1 Capsule(s) PO BID 12/27/2017 12/26/2017 Inactive tizanidine 4 mg tablet RxNorm: 897739 1 Tablet(s) PO TID as needed 12/25/2017 01/01/2018 Inactive levothyroxine 175 mc g tablet RxNorm: 582163 1 Tablet(s) PO daily 12/14/2017 12/13/2017 Inactive levothyroxine 175 mc g tablet RxNorm: 438951 1 Tablet(s) PO daily 12/14/2017 01/17/2018 Inactive baclofen 10 mg tablet RxNorm: 509870 Tablet(s) TAKE ONE TABLET BY MOUTH THREE TIMES A DAY NEEDED 12/13/2017 01/11/2018 Inactive baclofen 10 mg tablet RxNorm: 652193 TAKE ONE TABLET BY MOUTH THREE TIMES A D AY NEEDED 12/13/2017 12/12/2017 Inactive morphine 30 mg table t, crush resistant, extended release RxNorm: 7708555 1 Tablet(s) PO BID 12/12/2017 01/14/2018 Inactive clonazepam 1 mg tablet RxNorm: 564399 1/2 Tablet(s) PO daily 12/01/2017 08/27/2018 Inactive trazodone 50 mg tablet RxNorm: 811831 1/2 to 1 Tablet(s) QHS as needed 12/01/2017 03/30/2018 In active Opana ER 15 mg table t, crush resistant, extended release RxNorm: 744235 1 Tablet(s) PO Q12H 12/01/2017 02/13/2018 Inactive oxymorphone 5 mg tablet RxNorm: 798010 1 Tablet(s) PO Q6 PRN 12/01/2017 02/26/2018 Inactive Remeron 15 mg tablet RxNorm: 098575 Tablet(s) TAKE ONE TABLET BY MOUTH EVERY NIGHT AT BEDTIME 12/01/2017 02/28/2018 Inactive trazodone 50 mg tablet RxNorm: 737090 1/2 Tablet(s) as needed 1 Tablet(s) PO Q HS 12/01/2017 11/30/2017 In active clonazepam 1 mg tablet RxNorm: 689852 1/2 Tablet(s) PO daily 11/30/2017 11/30/2017 Inactive Remeron 15 mg tablet RxNorm: 355413 TAKE ONE TABLET BY MOUTH EVERY NIGHT AT BEDTIME 11/29/2017 11/30/2017 Inactive levothyroxine 200 mc g tablet RxNorm: 481579 TAKE ONE TABLET BY [facility] DAILY 11/15/2017 12/13/2017 In active baclofen 10 mg tablet RxNorm: 176184 TAKE ONE TABLET BY MOUTH THREE TIMES A D AY NEEDED 11/07/2017 12/06/2017 Inactive diclofenac sodium 75 mg tablet,delayed release RxNorm: 814813 1 Tablet(s) PO BID 11/07/2017 05/05/2018 In active liothyronine 5 mcg t ablet RxNorm: 153819 TAKE ONE TABLET BY [facility] DAILY 10/27/2017 07/18/2018 In active tizanidine 4 mg tablet RxNorm: 353565 1 Tablet(s) PO TID as needed 10/18/2017 12/16/2017 Inactive oxymorphone 5 mg tablet RxNorm: 490665 1 Tablet(s) PO Q6 PRN 09/29/2017 11/27/2017 Inactive morphine 30 mg table t, crush resistant, extended release RxNorm: 6132971 1 Tablet(s) PO BID 09/29/2017 11/28/2017 Inactive baclofen 10 mg tablet RxNorm: 226643 1 Tablet(s) PO TID as needed 09/11/2017 10/10/2017 Inactive baclofen 10 mg tablet RxNorm: 157043 1 Tablet(s) PO TID as needed 08/11/2017 09/09/2017 Inactive Opana ER 15 mg table t, crush resistant, extended release RxNorm: 307261 1 Tablet(s) PO Q12H 08/11/2017 09/28/2017 Inactive Remeron 15 mg tablet RxNorm: 582216 TAKE ONE TABLET BY MOUTH EVERY NIGHT AT BEDTIME 08/02/2017 10/30/2017 Inactive oxymorphone 5 mg tablet RxNorm: 747101 1 Tablet(s) PO Q6 PRN 08/02/2017 09/28/2017 Inactive Opana ER 5 mg tablet , crush resistant, extended release RxNorm: 287790 1 Tablet(s) PO Q6 PRN 08/01/2017 08/10/2017 Inactive Protonix 40 mg table t,delayed release RxNorm: 352791 TAKE ONE TABLET BY MO [facility] DAILY 06/26/2017 10/23/2017 In active Protonix 40 mg table t,delayed release RxNorm: 191536 TAKE ONE TABLET BY MO UTH DAILY 06/26/2017 06/25/2017 In active bupropion HCl XL 300 mg 24 hr tablet, extended release RxNorm: 576859 TAKE ONE TABLET BY MOUTH DAILY 06/13/2017 12/09/2017 Inactive tizanidine 4 mg tablet RxNorm: 181973 1 Tablet(s) PO TID as needed 06/13/2017 06/12/2017 Inactive tizanidine 4 mg tablet RxNorm: 972687 1 Tablet(s) PO TID as needed 06/13/2017 09/10/2017 Inactive baclofen 10 mg tablet RxNorm: 214821 1 Tablet(s) PO TID as needed 06/13/2017 07/12/2017 Inactive Opana ER 15 mg table t, crush resistant, extended release RxNorm: 729919 1 Tablet(s) PO Q12H 06/09/2017 08/07/2017 Inactive Opana ER 5 mg tablet , crush resistant, extended release RxNorm: 925038 1 Tablet(s) PO Q6 PRN 06/09/2017 07/31/2017 Inactive diclofenac sodium 75 mg tablet,delayed release RxNorm: 557051 1 Tablet(s) PO BID 06/09/2017 09/06/2017 In active clonazepam 1 mg tablet RxNorm: 595975 1/2 Tablet(s) PO daily 05/24/2017 11/18/2017 Inactive bupropion HCl XL 300 mg 24 hr tablet, extended release RxNorm: 133815 TAKE ONE TABLET BY MOUTH DAILY 03/16/2017 06/12/2017 Inactive clonazepam 1 mg tablet RxNorm: 556370 1/2 Tablet(s) PO daily 02/22/2017 05/18/2017 Inactive Remeron 15 mg tablet RxNorm: 439468 TAKE ONE TABLET BY MOUTH EVERY NIGHT AT BEDTIME 02/06/2017 2017 Inactive Protonix 40 mg table t,delayed release RxNorm: 237248 TAKE ONE TABLET BY MO UTH DAILY 01/26/2017 06/24/2017 In active mupirocin 2 % topica l ointment RxNorm: 492488 1 Application TOP BID 01/12/2017 01/18/2017 Inactive Bactrim DS 800 mg-16 0 mg tablet RxNorm: 908845 1 Tablet(s) PO BID 11/17/2016 11/23/2016 Inactive mupirocin 2 % topica l ointment RxNorm: 018651 1 Application TOP BID 11/10/2016 11/16/2016 Inactive Bactrim DS 800 mg-16 0 mg tablet RxNorm: 113887 1 Tablet(s) PO BID 11/10/2016 11/16/2016 Inactive bupropion HCl XL 300 mg 24 hr tablet, extended release RxNorm: 895213 TAKE ONE TABLET BY MOUTH DAILY 11/07/2016 03/06/2017 Inactive liothyronine 5 mcg t ablet RxNorm: 647651 1 Tablet(s) PO daily 11/01/2016 10/26/2017 Inactive levothyroxine 200 mc g tablet RxNorm: 831990 1 Tablet(s) PO daily 10/04/2016 09/28/2017 Inactive clonazepam 1 mg tablet RxNorm: 730570 1/2 Tablet(s) PO daily 09/21/2016 03/18/2017 Inactive clonazepam 1 mg tablet RxNorm: 265869 1/2 Tablet(s) PO daily 09/16/2016 09/20/2016 Inactive Abilify 2 mg tablet RxNorm: 872008 1 Tablet(s) PO daily 09/16/2016 10/13/2016 Inactive trazodone 50 mg tablet RxNorm: 225096 1/2 Tablet(s) as needed 1 Tablet(s) PO Q HS 09/16/2016 01/13/2017 In active morphine 15 mg immed iate release tablet RxNorm: 932559 1 Tablet(s) PO Q6 PRN 09/16/2016 04/06/2017 In active baclofen 10 mg tablet RxNorm: 426892 1 Tablet(s) PO TID as needed 09/16/2016 06/12/2017 Inactive MS Contin 30 mg tabl et,extended release RxNorm: 188508 1 Tablet(s) PO Q12H 09/16/2016 04/06/2017 In active Remeron 15 mg tablet RxNorm: 303417 1 Tablet(s) PO QHS 08/19/2016 09/15/2016 Inactive levothyroxine 200 mc g tablet RxNorm: 189811 1 Tablet(s) PO daily 08/11/2016 10/03/2016 Inactive bupropion HCl XL 300 mg 24 hr tablet, extended release RxNorm: 224879 TAKE ONE TABLET BY MOUTH DAILY 08/11/2016 11/06/2016 Inactive Protonix 40 mg table t,delayed release RxNorm: 880271 1 Tablet(s) PO daily 06/17/2016 12/13/2016 In active bupropion HCl XL 300 mg 24 hr tablet, extended release RxNorm: 513519 1 Tablet(s) PO daily 05/12/2016 07/10/2016 Inactive bupropion HCl XL 300 mg 24 hr tablet, extended release RxNorm: 132534 1 Tablet(s) PO daily 05/12/2016 05/11/2016 Inactive Cialis 20 mg tablet RxNorm: 484528 1 Tablet(s) PO PRN 02/16/2016 No Stop Date Active not more than 1 tab in 24 hours morphine ER 10 mg ca psule,extended release pellets RxNorm: 384572 1 Tablet(s) PO Q6 as needed 02/16/2016 11/16/2016 Inactive clonazepam 1 mg tablet RxNorm: 989568 1/2 Tablet(s) PO BID 02/16/2016 09/15/2016 Inactive trazodone 50 mg tablet RxNorm: 988074 1/2 Tablet(s) as needed 1 Tablet(s) PO Q HS 02/16/2016 08/18/2016 In active trazodone 50 mg tablet RxNorm: 766361 1/2 Tablet(s) 1 Tablet(s) PO QHS 11/17/2015 02/15/2016 In active trazodone 50 mg tablet RxNorm: 205113 1 Tablet(s) PO QHS 10/19/2015 11/16/2015 Inactive levothyroxine 200 mc g tablet RxNorm: 367656 1 Tablet(s) PO daily 10/02/2015 08/10/2016 Inactive Wellbutrin XL 150 mg 24 hr tablet, extended release RxNorm: 954458 1 Tablet(s) PO daily 10/02/2015 05/11/2016 Inactive levothyroxine 200 mc g tablet RxNorm: 735452 1 Tablet(s) PO daily 09/30/2015 10/01/2015 Inactive Wellbutrin XL 150 mg 24 hr tablet, extended release RxNorm: 125490 1 Tablet(s) PO daily 09/30/2015 10/01/2015 Inactive trazodone 50 mg tablet RxNorm: 312953 1 Tablet(s) PO QHS 09/11/2015 10/10/2015 Inactive trazodone 50 mg tablet RxNorm: 967975 1 Tablet(s) PO QHS 09/11/2015 09/10/2015 Inactive Cymbalta 30 mg capsu le,delayed release RxNorm: 426443 1 Capsule(s) PO daily 09/07/2015 11/16/2015 In active Cymbalta 60 mg capsu le,delayed release RxNorm: 714631 1 Capsule(s) PO daily 08/31/2015 08/30/2015 In active Cymbalta 30 mg capsu le,delayed release RxNorm: 331618 1 Capsule(s) PO daily take with 60mg to make 90 mg daily 08/31/2015 09/06/2015 Inactive Cymbalta 30 mg capsu le,delayed release RxNorm: 643563 1 Capsule(s) PO daily take with 60mg to make 90 mg daily 08/31/2015 08/30/2015 Inactive Cymbalta 60 mg capsu le,delayed release RxNorm: 094896 1 Capsule(s) PO daily x 7 days and then increase to 90mg daily 08/31/2015 09/07/2015 Inactive levothyroxine 200 mc g tablet RxNorm: 802312 1 Tablet(s) PO daily 08/14/2015 09/29/2015 Inactive Wellbutrin XL 150 mg 24 hr tablet, extended release RxNorm: 036688 1 Tablet(s) PO daily 07/14/2015 09/29/2015 Inactive Cialis 20 mg tablet RxNorm: 283496 1 Tablet(s) PO PRN 07/02/2015 02/15/2016 Inactive not more than 1 tab in 24 hours liothyronine 5 mcg t ablet RxNorm: 925988 1 Tablet(s) PO daily 2015 05/29/2016 Inactive clonazepam 1 mg tablet RxNorm: 604380 1 Tablet(s) PO TID 2015 02/15/2016 Inactive minocycline 50 mg ta blet RxNorm: 730471 1 Tablet(s) PO daily 2015 05/11/2016 Inactive Wellbutrin XL 150 mg 24 hr tablet, extended release RxNorm: 265324 1 Tablet(s) PO daily 04/23/2015 07/13/2015 Inactive levothyroxine 200 mc g tablet RxNorm: 660846 1 Tablet(s) PO daily 04/23/2015 08/13/2015 Inactive Aleve oral RxNorm: 249283 oral No Start Date Active Tylenol 500 mg RxNorm: oral No Start Date Active morphine ER 15 mg ta blet,extended release RxNorm: 277742 oral No Start Date 11/16/2016 Inactive Trazadone 25 mg RxNorm: 2 PO daily No Start Date 09/11/2015 Inactive diclofenac oral RxNorm: 3355 oral No Start Date 05/04/2018 Inactive clonazepam 1 mg tablet RxNorm: 518908 1 Tablet(s) PO QHS No Start Date 06/04/2015 Inactive Wellbutrin XL 150 mg 24 hr tablet, extended release RxNorm: 839126 1 Tablet(s) PO daily No Start Date 04/22/2015 Inactive minocycline 50 mg ta blet RxNorm: 279664 1 Tablet(s) PO daily No Start Date 06/04/2015 Inactive methadone 5 mg tablet RxNorm: 113345 1 Tablet(s) PO Q8 No Start Date 02/15/2016 Inactive Protonix 40 mg table t,delayed release RxNorm: 132275 Tablet(s) PO daily No Start Date 06/16/2016 Inactive Opana ER 15 mg table t, crush resistant, extended release RxNorm: 475475 1 Tablet(s) PO Q12H No Start Date 06/08/2017 Inactive MS Contin 30 mg tabl et,extended release RxNorm: 125990 1 Tablet(s) PO Q12H No Start Date 02/15/2016 Inactive Opana ER 15 mg table t, crush resistant, extended release RxNorm: 770567 1 Tablet(s) PO BID No Start Date 09/15/2016 Inactive liothyronine 5 mcg t ablet RxNorm: 360462 1 Tablet(s) PO daily No Start Date 06/04/2015 Inactive Cialis 20 mg tablet RxNorm: 500729 1 Tablet(s) PO PRN No Start Date 07/01/2015 Inactive not more than 1 tab in 24 hours baclofen 10 mg tablet RxNorm: 081383 1 Tablet(s) PO TID as needed No Start Date 05/11/2016 Inactive morphine 15 mg immed iate release tablet RxNorm: 475267 1 Tablet(s) PO Q6 PRN as needed No Start Date 02/15/2016 Inactive levothyroxine 200 mc g tablet RxNorm: 654658 1 Tablet(s) PO daily No Start Date 04/22/2015 Inactive Opana ER 5 mg tablet , crush resistant, extended release RxNorm: 771606 1 Tablet(s) PO Q6 No Start Date [...] Item Item Code Result Date Free T4 Tgz497 FREE T4 1.54 ng/dL 11/05/2018 Vitamin D 25 Oh Cen2949 VITAMIN D, 25 HYDROXY 40.65 ng/mL 11/05/2018 Tsh Ord6 TSH (3rd IS) 0.02 uIU/mL 11/05/2018 Vitamin D 25 Oh Ind4569 VITAMIN D, 25 HYDROXY 30.96 ng/mL 07/06/2018 Comp Metabolic Eur201 NA 141 mEq/L 07/06/2018 Comp Metabolic Gpz420 K 4.2 mEq/L 07/06/2018 Comp Metabolic Dks929 CL 103 mEq/L 07/06/2018 Comp Metabolic Jvy897 CO2 29.0 mEq/L 07/06/2018 Comp Metabolic Kgt980 AN ION GAP 13 07/06/2018 Comp Metabolic Ehc065 GL UCOSE 105 mg/dL 07/06/2018 Comp Metabolic Mxn934 Cr eat 0.8 mg/dL 07/06/2018 Comp Metabolic Ubo712 eG FR 101 ml/min/1.73m2 06/27 Comp Metabolic Kxt715 BUN 7 mg/dL 07/06/2018 Comp Metabolic Dxg806 B/ C Ratio 8.3 Ratio 07/06/2018 Comp Metabolic Ast005 CA LCIUM 9.9 mg/dL 07/06/2018 Comp Metabolic Tdt931 AL K PHOS 65 U/L 07/06/2018 Comp Metabolic Plc098 T(SGOT) 21 U/L 07/06/2018 Comp Metabolic Ewu846 AL T(SGPT) 31 U/L 07/06/2018 Comp Metabolic Ftf582 BI LI T 0.3 mg/dL 07/06/2018 Comp Metabolic Boa966 AL BUMIN 4.3 g/dL 07/06/2018 Comp Metabolic Kot458 TP RO 6.4 g/dL 07/06/2018 Comp Metabolic Hey547 GL OB 2.1 g/dL 07/06/2018 Comp Metabolic Acf966 A/ G Ratio 2.0 Ratio 07/06/2018 Comp Metabolic Itu203 Os mo 280 mOsmo 07/06/2018 Cbc With [...] 29.3 pg 07/06/2018 Cbc With Differential Ord2 [place]% 10.5 % 07/06/2018 Cbc With Differential Ord2 [...] 1.89 K/ul 07/06/2018 Cbc With Differential Ord2 [place] ABS# 0.5 K/ul 07/06/2018 Cbc With Differential Ord2 Eos ABS# 0.3 K/ul 07/06/2018 Cbc With Differential Ord2 Baso ABS# 0.0 K/ul 07/06/2018 Total Psa Ord10 PSA 0.34 ng/mL 07/06/2018 Tsh Ord6 TSH (3rd IS) 0.02 uIU/mL 07/06/2018 Testosterone Kyt456 Testo 400.6 ng/dL 07/06/2018 Free T4 Qfa181 FREE T4 1.48 ng/dL 07/06/2018 [place] Spotted Fever Igg/Igm 77795 3 PARTHA MT SPOTTED FEVER IGM EIA . 04/04/2018 [place] Spotted Fever Igg/Igm 79356 3 RMSF, IGM 0.24 index 04/04/2018 [place] Spotted Fever Igg/Igm 15158 3 PARTHA MT SPOTTED FEVER IGG EIA FLEX . 04/04/2018 [place] Spotted Fever Igg/Igm 93791 3 RMSF, IGG SCREEN-FLEX Equivocal 04/04/2018 Partha Mtn Spot'D Fev Igg 132488 RMSF, IGG- TITER IFA <1:64 04/04/2018 Ehrlichia Chaffeensis Antibody Igg [id number] EHRLICHIA CHAFFEENSIS IGG <1:64 04/02/2018 Ehrlichia Chaffeensis Antibody Igm [id number] EHRLICHIA CHAFFEENSIS IGM < 1:16 04/02/2018 Lymes Disease Total Antibodies With Western Blot Refle x [id number] B. BURGDORFERI, IGG/IGM 0.23 03/30/2018 Lymes Disease Total Antibodies With Western Blot Refle x [id number] 03/30/2018 Cbc With Differential Ord2 WBC 5.04 [...] 28.7 pg 03/28/2018 Cbc With Differential Ord2 [place]% 16.1 % 03/28/2018 Cbc With Differential Ord2 [...] 1.37 K/ul 03/28/2018 Cbc With Differential Ord2 [place] ABS# 0.8 K/ul 03/28/2018 Cbc With Differential Ord2 Eos ABS# 0.1 K/ul 03/28/2018 Cbc With Differential Ord2 Baso ABS# 0.0 K/ul 03/28/2018 Comp Metabolic Gjs227 NA 136 mEq/L 02/16/2018 Comp Metabolic Ykb655 K 3.9 mEq/L 02/16/2018 Comp Metabolic Yni802 CL 103 mEq/L 02/16/2018 Comp Metabolic Lok849 CO2 23.0 mEq/L 02/16/2018 Comp Metabolic Sac504 AN ION GAP 14 02/16/2018 Comp Metabolic Cgn931 GL UCOSE 133 mg/dL 02/16/2018 Comp Metabolic Ovs552 Cr eat 0.8 mg/dL 02/16/2018 Comp Metabolic Qbk830 eG FR 103 ml/min/1.73m2 01/26 Comp Metabolic Htm157 BUN 7 mg/dL 02/16/2018 Comp Metabolic Xyo848 B/ C Ratio 8.4 Ratio 02/16/2018 Comp Metabolic Ods804 CA LCIUM 9.3 mg/dL 02/16/2018 Comp Metabolic Pqq745 AL K PHOS 71 U/L 02/16/2018 Comp Metabolic Ybg463 T(SGOT) 42 U/L 02/16/2018 Comp Metabolic Zar233 AL T(SGPT) 69 U/L 02/16/2018 Comp Metabolic Shj782 BI LI T 0.3 mg/dL 02/16/2018 Comp Metabolic Lps075 AL BUMIN 4.1 g/dL 02/16/2018 Comp Metabolic Xze083 TP RO 6.3 g/dL 02/16/2018 Comp Metabolic Das821 GL OB 2.2 g/dL 02/16/2018 Comp Metabolic Yre628 A/ G Ratio 1.8 Ratio 02/16/2018 Comp Metabolic Nsp028 Os mo 272 mOsmo 02/16/2018 Free T4 Izl319 FREE T4 1.85 ng/dL 02/16/2018 Ferritin Ord22 FERRITIN 161.7 ng/mL 02/16/2018 Tsh Ord6 TSH (3rd IS) 0.01 uIU/mL 02/16/2018 Test(s) Not Perfromed [id number] Test(s) Not Performed Test(s) Not Performed. 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 Goyal 02/16/2018 Tibc Ord40 Iron [...] 26.4 pg 01/05/2018 Cbc With Differential Ord2 Mchenry% 11.9 % 01/05/2018 Cbc With Differential Ord2 [...] 2.08 K/ul 01/05/2018 Cbc With Differential Ord2 Mchenry ABS# 0.6 K/ul 01/05/2018 Cbc With Differential Ord2 Eos ABS# 0.2 K/ul 01/05/2018 Cbc With Differential Ord2 Baso ABS# 0.0 K/ul 01/05/2018 Ferritin Ord22 FERRITIN 5.7 ng/mL 12/06/2017 Tibc Ord40 Iron 33 ug/dl 12/06/2017 Tibc Ord40 UIBC 431 ug/dL 12/06/2017 Tibc Ord40 TIBC 464 ug/dL 12/06/2017 Tibc Ord40 Fe-%Sat 7.1 % 12/06/2017 Free T4 Czv341 FREE T4 1.82 ng/dL 12/01/2017 Tsh Ord6 [...] 83.3 fl 12/01/2017 Cbc With Differential Ord2 Mchenry% 10.6 % 12/01/2017 Cbc With Differential Ord2 [...] 1.92 K/ul 12/01/2017 Cbc With Differential Ord2 Mchenry ABS# 0.4 K/ul 12/01/2017 Cbc With Differential Ord2 Eos ABS# 0.2 K/ul 12/01/2017 Cbc With Differential Ord2 Baso ABS# 0.0 K/ul 12/01/2017 Comp Metabolic Jyl382 NA 136 mEq/L 12/01/2017 Comp Metabolic Etb707 K 4.6 mEq/L 12/01/2017 Comp Metabolic Ggj127 CL 102 mEq/L 12/01/2017 Comp Metabolic Etv334 CO2 27.0 mEq/L 12/01/2017 Comp Metabolic Ysw301 AN ION GAP 12 12/01/2017 Comp Metabolic Npe597 GL UCOSE 90 mg/dL 12/01/2017 Comp Metabolic Xds869 Cr eat 0.7 mg/dL 12/01/2017 Comp Metabolic Ywo864 eG FR 123 ml/min/1.73m2 03/2018 Comp Metabolic Wlt626 BUN 4 mg/dL 12/01/2017 Comp Metabolic Uic030 B/ C Ratio 5.6 Ratio 12/01/2017 Comp Metabolic Hcu849 CA LCIUM 9.0 mg/dL 12/01/2017 Comp Metabolic Oyk755 AL K PHOS 67 U/L 12/01/2017 Comp Metabolic Qow631 T(SGOT) 30 U/L 12/01/2017 Comp Metabolic Nsq848 AL T(SGPT) 29 U/L 12/01/2017 Comp Metabolic Xcr526 BI LI T 0.3 mg/dL 12/01/2017 Comp Metabolic Dka332 AL BUMIN 4.1 g/dL 12/01/2017 Comp Metabolic Rel486 TP RO 6.1 g/dL 12/01/2017 Comp Metabolic Srv812 GL OB 2.0 g/dL 12/01/2017 Comp Metabolic Mkh670 A/ G Ratio 2.0 Ratio 12/01/2017 Comp Metabolic Oxp892 Os mo 268 mOsmo 12/01/2017 Comp Metabolic Svf449 NA 136 mEq/L 02/16/2016 Comp Metabolic Nga464 K 4.2 mEq/L 02/16/2016 Comp Metabolic Kec910 CL 104 mEq/L 02/16/2016 Comp Metabolic Xod496 CO2 20.0 mEq/L 02/16/2016 Comp Metabolic Chb978 AN ION GAP 16 02/16/2016 Comp Metabolic Vrq618 GL UCOSE 71 mg/dL 02/16/2016 Comp Metabolic Qnk346 Cr eat 0.8 mg/dL 02/16/2016 Comp Metabolic Tjl457 eG FR 113 ml/min/1.73m2 01/26 Comp Metabolic Xjs475 BUN 7 mg/dL 02/16/2016 Comp Metabolic Dhv810 B/ C Ratio 9.1 Ratio 02/16/2016 Comp Metabolic Frv003 CA LCIUM 9.4 mg/dL 02/16/2016 Comp Metabolic Ycz173 AL K PHOS 57 U/L 02/16/2016 Comp Metabolic Bza185 T(SGOT) 30 U/L 02/16/2016 Comp Metabolic Jnr844 AL T(SGPT) 27 U/L 02/16/2016 Comp Metabolic Tqh904 BI LI T 0.2 mg/dL 02/16/2016 Comp Metabolic Jkp610 AL BUMIN 4.4 g/dL 02/16/2016 Comp Metabolic Csz332 TP RO 6.5 g/dL 02/16/2016 Comp Metabolic Fuf978 GL OB 2.1 g/dL 02/16/2016 Comp Metabolic Ivb783 A/ G Ratio 2.1 Ratio 02/16/2016 Comp Metabolic Vxz051 Os mo 268 mOsmo 02/16/2016 Free T4 Kyr596 FREE T4 1.20 ng/dL 02/16/2016 Cbc With [...] 90.6 fl 02/16/2016 Cbc With Differential Ord2 Mchenry% 9.6 % 02/16/2016 Cbc With Differential Ord2 [...] 1.50 K/ul 02/16/2016 Cbc With Differential Ord2 Mchenry ABS# 0.5 K/ul 02/16/2016 Cbc With Differential [...] accomodation 08/11/2017 None Full Exam - General 1995 Ears/Nose/Throat otoscopic exam Overall: external auditory canals [...] 1: 122/64 Code: 8480-6 BMI: 37.4 Code: 32621-8 Heart Rate 1: 66 bpm Height: 5'6" SpO2: 97% Weight: 232 lbs 09/27/2018 Blood Pressure 1: 92/66 Code: 8480-6 BMI: 37.9 Code: 73925-0 Heart Rate 1: 66 bpm Height: 5'6" SpO2: 98% Weight: 235 lbs 09/17/2018 Blood Pressure 1: 110/72 Code: 8480-6 BMI: 38.3 Code: 02761-6 Heart Rate 1: 77 bpm Height: 5'6" SpO2: 95% Waist Measure (cm): 102 cm Weight: 237 lbs 09/03/2018 Blood Pressure 1: 122/68 Code: 8480-6 BMI: 37.6 Code: 93718-1 Heart Rate 1: 78 bpm Height: 5'6" SpO2: 97% Weight: 233 lbs 07/05/2018 Blood Pressure 1: 94/62 Code: 8480-6 BMI: 36.8 Code: 94344-2 Heart Rate 1: 88 bpm Height: 5'6" SpO2: 99% Weight: 228 lbs 05/04/2018 Blood Pressure 1: 110/80 Code: 8480-6 BMI: 35.5 Code: 72695-6 Heart Rate 1: 80 bpm Height: 5'6" SpO2: 99% Weight: 220 lbs 03/28/2018 Blood Pressure 1: 110/72 Code: 8480-6 BMI: 35.0 Code: 57347-0 Heart Rate 1: 80 bpm Height: 5'6" SpO2: 98% Temperature: 36.2 (C ) / 97.1 (F) Weight: 217 lbs 02/27/2018 Blood Pressure 1: 136/76 Code: 8480-6 BMI: 36.0 Code: 13632-9 Heart Rate 1: 80 bpm Height: 5'6" SpO2: 98% Weight: 223 lbs 12/01/2017 Blood Pressure 1: 132/72 Code: 8480-6 BMI: 33.4 Code: 13472-5 Heart Rate 1: 82 bpm Height: 5'6" SpO2: 97% Weight: 207 lbs 09/29/2017 Blood Pressure 1: 124/68 Code: 8480-6 BMI: 32.1 Code: 22923-9 Heart Rate 1: 77 bpm Height: 5'6" SpO2: 98% Weight: 199 lbs 08/11/2017 Blood Pressure 1: 154/82 Code: 8480-6 BMI: 31.6 Code: 27136-2 Heart Rate 1: 75 bpm Height: 5'6" SpO2: 98% Weight: 196 lbs 06/09/2017 Blood Pressure 1: 148/88 Code: 8480-6 BMI: 28.6 Code: 26466-8 Heart Rate 1: 88 bpm Height: 5'6" SpO2: 98% Weight: 177 lbs 04/07/2017 Blood Pressure 1: 140/84 Code: 8480-6 BMI: 30.3 Code: 86679-0 Heart Rate 1: 81 bpm Height: 5'6" SpO2: 99% Weight: 188 lbs 11/17/2016 Blood Pressure 1: 130/72 Code: 8480-6 Heart Rate 1: 63 bpm Height: SpO2: 93% Weight: 11/10/2016 Blood Pressure 1: 128/86 Code: 8480-6 BMI: 30.3 Code: 25912-9 Heart Rate 1: 84 bpm Height: 5'6" SpO2: 96% Weight: 188 lbs 10/14/2016 Heigh t: 5'6" 09/16/2016 Blood Pressure 1: 130/80 Code: 8480-6 BMI: 30.3 Code: 43038-1 Heart Rate 1: 67 bpm Height: 5'6" SpO2: 99% Weight: 188 lbs 08/19/2016 Blood Pressure 1: 110/62 Code: 8480-6 BMI: 29.9 Code: 94465-0 Heart Rate 1: 70 bpm Height: 5'6" SpO2: 97% Weight: 185 lbs 06/17/2016 Blood Pressure 1: 112/68 Code: 8480-6 BMI: 27.6 Code: 82221-5 Heart Rate 1: 61 bpm Height: 5'6" SpO2: 98% Weight: 171 lbs 05/12/2016 Blood Pressure 1: 130/76 Code: 8480-6 BMI: 29.7 Code: 90744-6 Heart Rate 1: 103 bpm Height: 5'6" SpO2: 98% Weight: 184 lbs 02/16/2016 Blood Pressure 1: 140/82 Code: 8480-6 BMI: 28.7 Code: 70482-3 Heart Rate 1: 66 bpm Height: 5'6" SpO2: 99% Weight: 178 lbs 11/17/2015 Blood Pressure 1: 120/74 Code: 8480-6 BMI: 29.4 Code: 75999-4 Heart Rate 1: 90 bpm Height: 5'6" SpO2: 94% Weight: 182 lbs 08/28/2015 Blood Pressure 1: 128/76 Code: 8480-6 BMI: 27.9 Code: 60229-3 Heart Rate 1: 80 bpm Height: 5'6" SpO2: 98% Weight: 173 lbs 05/28/2015 Blood Pressure 1: 122/70 Code: 8480-6 BMI: 27.0 Code: 19359-8 Heart Rate 1: 74 bpm Height: 5'6" SpO2: 98% Weight: 167 lbs 04/23/2015 Blood Pressure 1: 110/60 Code: 8480-6 BMI: 27.0 Code: 35105-3 Heart Rate 1: 68 bpm Height: 5'6" [...] and Resolution ongoing 09/03/2018 None hypothyroid Quality cook night fe 09/03/2018 None hypothyroid Onset and Resolution [...] fatigue Quality constant 07/05/2018 None hypothyroid Quality cook night fe 07/05/2018 None hypothyroid Onset and Resolution [...] Findings weight loss 03/28/2018 None hypothyroid Quality cook night fe 02/27/2018 None hypothyroid Onset and Resolution [...] Encounters Encounter Performer Loca tion Codes Date ([id number]) 04493 EST. P ATIENT, LEVEL IV Diagnosis: Hypothyroidism, unspecified[ICD10: E03.9] Diagnosis: Major depressive disorder, recurrent, moderate[ICD10: F33.1] Diagnosis: Chronic pain syndrome[ICD10: G89.4] Leydi Jacobo MD, [facility] CPT-4: 88879 11/05/2018 ([id number]) 93892 EST. P ATIENT, LEVEL IV Diagnosis: Chronic pain syndrome[ICD10: G89.4] Diagnosis: Hypothyroidism, unspecified[ICD10: E03.9] Diagnosis: Other fatigue[ICD10: R53.83] Diagnosis: Other obesity due to excess calories[ICD10: E66.09] Diagnosis: Major depressive disorder, recurrent, moderate[ICD10: F33.1] Leydi Jacobo MD, [facility] CPT-4: 53723 09/27/2018 ([id number]) 46667 EST. P ATIENT, LEVEL III Diagnosis: Chronic pain syndrome[ICD10: G89.4] Leydi Jacobo MD, [facility] CPT-4: 60911 09/03/[id number]) 14721 EST. P ATIENT, LEVEL IV Diagnosis: Hypothyroidism, unspecified[ICD10: E03.9] Diagnosis: Major depressive disorder, recurrent, moderate[ICD10: F33.1] Diagnosis: Chronic pain syndrome[ICD10: G89.4] Diagnosis: Other male erectile dysfunction[ICD10: N52.8] Diagnosis: Other fatigue[ICD10: R53.83] Diagnosis: Encounter for screening for malignant neoplasm of prostate[ICD10: Z12.5] Leydi Jacobo MD, [facility] CPT-4: 21035 07/05/2018 ([id number]) 90620 EST. P ATIENT, LEVEL IV Diagnosis: Chronic pain syndrome[ICD10: G89.4] Diagnosis: Hypothyroidism, unspecified[ICD10: E03.9] Diagnosis: Major depressive disorder, recurrent, moderate[ICD10: F33.1] Leydi Jacobo MD, [facility] CPT-4: 28002 05/04/2018 11914 EST. PATIENT, LEVEL IV Diagnosis: Melena[ICD10: K92.1] Diagnosis: Other malaise[ICD10: R53.81] Diagnosis: Other fatigue[ICD10: R53.83] Diagnosis: Pain in unspecified joint[ICD10: M25.50] Diagnosis: Diarrhea, unspecified[ICD10: R19.7] Denae Jacobo MD, [facility] CPT-4: 52044 03/28/2018 ([id number]) 25765 EST. P ATIENT, LEVEL IV Diagnosis: Chronic pain syndrome[ICD10: G89.4] Diagnosis: Hypothyroidism, unspecified[ICD10: E03.9] Diagnosis: Other obesity due to excess calories[ICD10: E66.09] Diagnosis: Major depressive disorder, recurrent, moderate[ICD10: F33.1] Diagnosis: Obstructive sleep apnea (adult) (pediatric)[ICD10: G47.33] Leydi Jacobo MD, [facility] CPT-4: 85543 02/27/2018 [id number] EST. PATIENT, LEVEL IV Diagnosis: Other specified hypothyroidism[ICD10: E03.8] Diagnosis: Chronic pain syndrome[ICD10: G89.4] Diagnosis: Major depressive disorder, recurrent, moderate[ICD10: F33.1] Denae Jacobo MD, [facility] CPT-4: 11290 12/01/2017 ([id number]) 52950 EST. P ATIENT, LEVEL IV Diagnosis: Chronic pain syndrome[ICD10: G89.4] Diagnosis: Alcohol dependence, uncomplicated[ICD10: F10.20] Diagnosis: Major depressive disorder, recurrent, moderate[ICD10: F33.1] Leydi Jacobo MD, [facility] CPT-4: 40851 09/29/2017 ([id number]) 28921 EST. P ATIENT, LEVEL IV Diagnosis: Chronic pain syndrome[ICD10: G89.4] Diagnosis: Alcohol dependence, uncomplicated[ICD10: F10.20] Diagnosis: Major depressive disorder, recurrent, moderate[ICD10: F33.1] Leydi Jacobo MD, [facility] CPT-4: 57667 08/11/2017 ([id number]) 31905 EST. P ATIENT, LEVEL III Diagnosis: Chronic pain syndrome[ICD10: G89.4] Diagnosis: Major depressive disorder, recurrent, moderate[ICD10: F33.1] Leydi Jacobo MD, [facility] CPT-4: 42495 06/09/2017 ([id number]) 11458 EST. P ATIENT, LEVEL III Diagnosis: Chronic pain syndrome[ICD10: G89.4] Diagnosis: Pain in left knee[ICD10: M25.562] Leydi Jacobo MD, [facility] CPT- 4: 93208 04/07/2017 82579 EST. PATIENT, LEVEL II Diagnosis: Superficial foreign body of left upper arm, initial encounter[ICD10: S40.852A] Diagnosis: Cellulitis of left upper limb[ICD10: L03.114] Leydi Jacobo MD, [facility] CPT-4: 35465 11/17/2016 [id number] EST. PATIENT, LEVEL II Diagnosis: Cellulitis of left upper limb[ICD10: L03.114] Leydi Jacobo MD, [facility] CPT-4: 16767 11/10/2016 ([id number]) 08599 EST. P ATIENT, LEVEL III Diagnosis: Chronic pain syndrome[ICD10: G89.4] Diagnosis: Major depressive disorder, recurrent, moderate[ICD10: F33.1] Leydi Jacobo MD, [facility] CPT-4: 61452 10/14/2016 02833 EST. PATIENT, LEVEL IV Diagnosis: Psychophysiologic insomnia[ICD10: F51.04] Diagnosis: Major depressive disorder, recurrent, moderate[ICD10: F33.1] Diagnosis: Alcohol dependence, uncomplicated[ICD10: F10.20] Diagnosis: Chronic pain syndrome[ICD10: G89.4] Leydi Jacobo MD, [facility] CPT-4: 03712 09/16/2016 ([id number]) 16057 EST. P ATIENT, LEVEL III Diagnosis: Pain in left shoulder[ICD10: M25.512] Diagnosis: Major depressive disorder, recurrent, moderate[ICD10: F33.1] Diagnosis: Psychophysiologic insomnia[ICD10: F51.04] Leydi Jacobo MD, [facility] CPT-4: 52475 08/19/2016 ([id number]) 04321 EST. P ATIENT, LEVEL III Diagnosis: Gastro-esophageal reflux disease without esophagitis[ICD10: K21.9] Diagnosis: Hypothyroidism, unspecified[ICD10: E03.9] Leydi Jacobo MD, [facility] CPT-4: 05088 06/17/2016 ([id number]) 38048 EST. P ATIENT, LEVEL IV Diagnosis: Gastro-esophageal reflux disease without esophagitis[ICD10: K21.9] Diagnosis: Hypothyroidism, unspecified[ICD10: E03.9] Diagnosis: Major depressive disorder, recurrent, moderate[ICD10: F33.1] Leydi Jacobo MD, [facility] CPT-4: 08472 05/12/2016 ([id number]) 16555 EST. P ATIENT, LEVEL III Diagnosis: Cervicalgia[ICD10: M54.2] Diagnosis: Hypothyroidism, unspecified[ICD10: E03.9] Diagnosis: Other male erectile dysfunction[ICD10: N52.8] Leydi Jacobo MD, [facility] CPT-4: 40683 02/16/2016 ([id number]) 89275 EST. P ATIENT, LEVEL III Diagnosis: Lumbago with sciatica, unspecified side[ICD10: M54.40] Diagnosis: Other male erectile dysfunction[ICD10: N52.8] Leydi Jacobo MD, [facility] CPT-4: 64692 11/17/2015 ([id number]) 13913 EST. P ATIENT, LEVEL III Diagnosis: Lumbago with sciatica, unspecified side[ICD10: M54.40] Diagnosis: Hypothyroidism, unspecified[ICD10: E03.9] Diagnosis: Other male erectile dysfunction[ICD10: N52.8] [facility] CPT-4: 11825 08/28/2015 ([id number]) 06679 EST. P ATIENT, LEVEL III Diagnosis: Back pain, chronic[ICD9: 724.5] Diagnosis: Depression[ICD9: 311] Diagnosis: Hypothyroid[ICD9: 244.9] Diagnosis: Bilateral calf pain[ICD9: 729.5] [facility] CPT-4: 86982 05/28/2015 ([id number]) OFFICE VISI T, NEW - LEVEL 4 Diagnosis: Back pain, chronic[ICD9: 724.5] Diagnosis: Depression[ICD9: 311] Diagnosis: Hypothyroid[ICD9: 244.9] [facility] CPT-4: 10846 04/23/2015 Plan of Care Planned Activity Notes [...] current medications. 11/05/2018 Appointment: Leydi Hightower WPtel: [address] [place], [place] [phone] (30 min) [facility] 11/05/2018 Patient Education: Patient Medication Summary Completed [...] of control. 09/27/2018 Appointment: Leydi Hightower WPtel: [facility] (15 min) Moderate 09/27/2018 Patient Education: [...] care surrogate. 09/17/2018 Appointment: Leydi Hightower WPtel: [facility] - Annual Wellness Visit 09/17/2018 Patient Education: Patient Medication Summary Completed 09/17/2018 Visit Plan: Chronic Pain Syndrome - pt has chronic pain - has been maintained on current medications, has not sought out other medications, only uses PRN pain medications as directed, and understands the consequences of over-medication. 09/03/2018 Appointment: Leydi Hightower WPtel: [phone] [place] [address] (30 min) Complex 09/03/2018 Patient Education: Patient [...] exposure. No change in current medications. Fatigue-weight qgoq-JZ-piquk labs including testosterone level 07/05/2018 Visit Plan: [...] exposure. No change in current medications. Fatigue-weight sfgw-EQ-ybefi labs including testosterone level 07/05/2018 Appointment: Leydi Hightower WPtel: [address] [place], [place] [phone] [place] (15 min) Moderate 07/05/2018 Patient Education: [...] to BID 05/04/2018 [phone] ([facility] min[facility] Moderate 05/04/2018 Patient Education: [...] pain. 03/28/2018 App[facility]ment[phone] ([facility] min) Complex 03/28/2018 Appointment: Nurse [...] time. 02/27/2018 [phone] (15 min) Moderate 02/27/2018 Patient Education: [...] control. 12/01/2017 App[facility]ment: [phone] (30 min) Complex 12/01/2017 Patient Education: [...] outpatient treatment 09/29/2017 Appointment: Leydi Hightower WPtel: [phone] (30 min) Complex 09/29/2017 Patient Education: [...] ider 08/11/2017 Appointment: Leydi Hightower WPtel: [phone] [phone] (30 min) Complex 08/11/2017 Patient Education: [...] medications. 06/09/2017 Appointment: Leydi Hightower WPtel: [phone] [phone] (30 min) Complex 06/09/2017 Patient Education: [...] completely resolve 11/17/2016 Appointment: Leydi Hightower WPtel: [phone] (30 min) Complex 11/17/2016 Patient Education: [...] in pain. 11/10/2016 Appointment: Leydi Hightower WPtel: [phone] (30 min) Complex 11/10/2016 Patient Education: [...] verbalized understanding of plan. 10/14/2016 Appointment: Leydi Hightowertel: [phone] (30 min) Complex 10/14/2016 Patient Education: [...] will try 09/16/2016 Appointment: Leydi Hightower WPtel: [phone] (30 min) Complex 09/16/2016 Patient Education: Patient Medication Summary Completed 09/16/2016 Visit Plan: Left shoulder and elbow pain-xray shoulder and elbow Kzposnbwit-tsttamli-pstabpqnhemh-d/c trazodone-start remeron at bedtime Pt has been [...] this patient. 08/19/2016 Appointment: [phone] [facility] min[facility] Complex 08/19/2016 Patient Education: [...] Completed 06/17/2016 Appointment: Leydi Hightower WPtel: [phone] [phone] (30 min) Complex 06/09/2016 Visit Plan: Esophageal [...] control. 05/12/2016 App[facility]ment: [phone] (30 min) Complex 05/12/2016 Patient Education: [...] in office. 05/28/2015 Appointment: Leydi Hightower WPtel: [address] [place], [place] [phone] (30 min) Complex 05/28/2015 Patient Education: Patient [...] [facility] - Saving AutoInj - Levothyroxine - 64 - Dynamic Portal ID Completed 04/23/2015 Care Plan: COMPLETE CBC AUTOMATED LOINC : 00830-6 Ordered 04/23/2015 Instructions Comment . Chronic pain-manag ed by Dr Perez-no [...] based on previous levels of control. . Hypothyroidism - p t with chronic [...] medications are managed by Dr. Perez. . Thorn left forearm lesion removed today-instructed [...] and elbow pain-xray shou lder and elbow Zsxnxzpvyz-sqglcfse-qifvwibyweql-d/c trazodone-start remeron at bedtime Pt has been [...] exposure. No change in current medications. Fatigue-weight julv-AY-motke labs including testosterone level . Chronic Pain [...] exposure. No change in current medications. Fatigue-weight nnpm-GQ-cnzmp labs including testosterone level . Chronic Pain [...] see what type of brace is covered. CHECK LABS AT NEXT A PPT INCREASE ACID CUSTOMER SUPPORT ADVISOR TO TWICE DAILY . Chronic Pain Syndrome [...] any worse. Patient verbalized understanding of plan. RECOMMEND SLEEP STUD Y PEPEQ DECREASE LEVOTHYROXINE [...] etc. Patient refuses at this time. . Abscess/Cellulitis - The patient was instructed in appropriate wound care. The patient was instructed to use the antibiotic ointment as per RX. The patient is to call for any change in symptoms, increase in size of the lesion, increase in pain. . Chronic Pain Syndr ome - [...]
--- OUTSIDE RECORDS SUMMARY | 2020-03-17 15:06 | XMS REPORT | CCD ---
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 Name Role Phone PP Unavailable CCM Unavailable Summary Purpose Interface Exchange Insurance Providers Payer name Policy type / Coverage type Covered democrat ID Effective Begin Date Effective End Date WPS Medicare Part B Medicare Part B [id number] Unknown [facility] icare Part B [id number] Un known Family history Father Diagnosis Age At Onset Colon cancer Unknown Social History Social History Element Codes Description Effective Dates Employment Unknown [employer] nt[place] unemployed Before disability 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 TWICE A DAY 10/15/2018 02/11/2019 Active Lasix 20 mg tablet RxNorm: 969612 1 Tablet(s) PO daily as needed 10/10/2018 11/08/2018 Ac tive potassium chloride E R 10 mEq tablet,extended release RxNorm: 017529 1 Tablet(s) PO daily as needed to take with lasix for inceased edema 10/10/2018 11/08/2018 Active potassium chloride E R 10 mEq tablet,extended release RxNorm: 082253 1 Tablet(s) PO daily as needed to take with lasix for inceased edema 10/10/2018 10/09/2018 Inactive Lasix 20 mg tablet RxNorm: 981054 1 Tablet(s) PO daily as needed 10/10/2018 10/09/2018 In active doxycycline hyclate 100 mg tablet RxNorm: 9863707 1 Tablet(s) PO BID 09/27/2018 10/10/2018 Inactive Remeron 15 mg tablet RxNorm: 326111 1.5 Tablet(s) PO QPM TAKE ONE TABLET BY MOUTH EVERY NIGHT AT BEDTIME 09/18/2018 12/16/2018 Active baclofen 10 mg tablet RxNorm: 408467 TAKE ONE TABLET BY MOUTH THREE TIMES A D AY NEEDED 09/12/2018 11/10/2018 Active oxymorphone 5 mg tablet RxNorm: 218897 1 Tablet(s) PO Q6 PRN 09/03/2018 11/01/2018 Inactive morphine 30 mg table t, crush resistant, extended release RxNorm: 3928918 1 Tablet(s) PO BID 09/03/2018 11/01/2018 Inactive trazodone 50 mg tablet RxNorm: 463828 TAKE ONE TABLET BY MOUTH EVERY NIGHT AT BEDTIME AND ONE-HALF TABLET BY MOUTH NEEDED 09/03/2018 10/12/2018 Inactive Remeron 15 mg tablet RxNorm: 257822 1.5 Tablet(s) PO QPM TAKE ONE TABLET BY MOUTH EVERY NIGHT AT BEDTIME 09/03/2018 09/17/2018 Inactive tizanidine 4 mg tablet RxNorm: 886169 TAKE ONE TABLET BY MOUTH THREE TIMES A D AY NEEDED 08/20/2018 10/18/2018 Inactive Protonix 40 mg table t,delayed release RxNorm: 935943 TAKE ONE TABLET BY MO UTH DAILY 08/10/2018 02/05/2019 Ac tive Carafate 1 gram tablet RxNorm: 174858 TAKE ONE TABLET BY MOUTH BEFORE MEALS AN D AT BEDTIME NEEDED FOR HEARTBURN 07/31/2018 12/27/2018 Active Protonix 40 mg table t,delayed release RxNorm: 810973 1 Tablet(s) BID 07/24/2018 07/23/2018 Inactive Protonix 40 mg table t,delayed release RxNorm: 192830 1 Tablet(s) daily 07/24/2018 08/09/2018 In active liothyronine 5 mcg t ablet RxNorm: 501892 TAKE ONE TABLET BY [facility] DAILY 07/19/2018 01/14/2019 Ac tive baclofen 10 mg tablet RxNorm: 373316 TAKE ONE TABLET BY MOUTH THREE TIMES A D AY NEEDED 07/12/2018 09/09/2018 Inactive levothyroxine 175 mc g tablet RxNorm: 835260 1 Tablet(s) PO daily 07/11/2018 11/07/2018 Active Vitamin D2 50,000 un it capsule RxNorm: 8873828 1 Capsule(s) PO QW 07/11/2018 10/02/2018 Inactive trazodone 50 mg tablet RxNorm: 787562 TAKE ONE TABLET BY MOUTH EVERY NIGHT AT BEDTIME AND ONE-HALF TABLET BY MOUTH NEEDED 07/11/2018 08/19/2018 Inactive Vitamin D2 50,000 un it capsule RxNorm: 3194570 1 Capsule(s) PO QW 07/11/2018 07/10/2018 Inactive morphine 30 mg table t, crush resistant, extended release RxNorm: 2881685 1 Tablet(s) PO BID 07/05/2018 09/02/2018 Inactive oxymorphone 5 mg tablet RxNorm: 363160 1 Tablet(s) PO Q6 PRN 07/05/2018 09/02/2018 Inactive bupropion HCl XL 300 mg 24 hr tablet, extended release RxNorm: 361891 TAKE ONE TABLET BY MOUTH DAILY 06/27/2018 12/23/2018 Active Remeron 15 mg tablet RxNorm: 499426 TAKE ONE TABLET BY MOUTH EVERY NIGHT AT BEDTIME 06/27/2018 09/02/2018 Inactive tizanidine 4 mg tablet RxNorm: 358247 TAKE ONE TABLET BY MOUTH THREE TIMES A D AY NEEDED 06/20/2018 08/18/2018 Inactive doxycycline hyclate 100 mg tablet RxNorm: 4778664 1 Tablet(s) PO BID 06/18/2018 07/01/2018 Inactive Protonix 40 mg table t,delayed release RxNorm: 857840 TAKE ONE TABLET BY [facility] DAILY 06/11/2018 07/23/2018 In active doxycycline hyclate 100 mg tablet RxNorm: 7309133 1 Tablet(s) PO BID 05/22/2018 06/04/2018 Inactive baclofen 10 mg tablet RxNorm: 051990 TAKE ONE TABLET BY MOUTH THREE TIMES A D AY NEEDED 05/14/2018 07/11/2018 Inactive diclofenac sodium 75 mg tablet,delayed release RxNorm: 719481 TAKE ONE TABLET BY [facility] TWICE A DAY 05/07/2018 10/03/2018 Inactive oxymorphone 5 mg tablet RxNorm: 958065 1 Tablet(s) PO Q6 PRN 05/04/2018 07/02/2018 Inactive morphine 30 mg table t, crush resistant, extended release RxNorm: 3824619 1 Tablet(s) PO BID 05/04/2018 07/02/2018 Inactive doxycycline hyclate 100 mg tablet RxNorm: 785345 1 Tablet(s) PO BID 04/24/2018 04/23/2018 Inactive doxycycline hyclate 100 mg tablet RxNorm: 6102369 1 Tablet(s) PO BID 04/24/2018 05/03/2018 Inactive baclofen 10 mg tablet RxNorm: 933624 TAKE ONE TABLET BY MOUTH THREE TIMES A D AY NEEDED 04/13/2018 05/12/2018 Inactive trazodone 50 mg tablet RxNorm: 581576 TAKE ONE TABLET BY MOUTH EVERY NIGHT AT BEDTIME AND ONE-HALF TABLET BY MOUTH NEEDED 04/09/2018 06/07/2018 Inactive Questran 4 gram powd er for susp in a packet RxNorm: 002297 1 packet PO BID 04/06/2018 06/04/2018 In active Questran 4 gram powd er for susp in a packet RxNorm: 716293 1 packet PO BID 04/06/2018 04/05/2018 In active Carafate 1 gram tablet RxNorm: 785794 1 Tablet(s) PO AC & HS as needed for hea rtburn 03/28/2018 04/26/2018 Inactive baclofen 10 mg tablet RxNorm: 718230 TAKE ONE TABLET BY MOUTH THREE TIMES A D AY NEEDED 03/16/2018 04/12/2018 Inactive Protonix 40 mg table t,delayed release RxNorm: 944238 TAKE ONE TABLET BY [facility] DAILY 03/16/2018 06/10/2018 In active Belviq XR 20 mg tabl et,extended release RxNorm: 2203591 1 Tablet(s) PO daily 02/27/2018 04/27/2018 In active oxymorphone 5 mg tablet RxNorm: 051085 1 Tablet(s) PO Q6 PRN 02/27/2018 04/27/2018 Inactive morphine 30 mg table t, crush resistant, extended release RxNorm: 9780285 1 Tablet(s) PO BID 02/27/2018 04/27/2018 Inactive levothyroxine 100 mc g tablet RxNorm: 629543 1 Tablet(s) PO daily 02/27/2018 07/10/2018 Inactive take with 88mcg to = 188mcg daily levothyroxine 88 mcg tablet RxNorm: 254073 1 Tablet(s) PO daily 02/27/2018 07/10/2018 Inactive take with 100mcg to = 188mcg daily morphine 30 mg table t, crush resistant, extended release RxNorm: 1316055 1 Tablet(s) PO BID 02/14/2018 02/26/2018 Inactive levothyroxine 200 mc g tablet RxNorm: 855130 Tablet(s) TAKE ONE TA BLET BY MOUTH DAILY 01/18/2018 02/26/2018 Inactive Updated script baclofen 10 mg tablet RxNorm: 008777 Tablet(s) TAKE ONE TABLET BY MOUTH THREE TIMES A DAY NEEDED 01/15/2018 02/13/2018 Inactive morphine 30 mg table t, crush resistant, extended release RxNorm: 9634871 1 Tablet(s) PO BID 01/15/2018 02/13/2018 Inactive tizanidine 4 mg tablet RxNorm: 562069 TAKE ONE TABLET BY MOUTH THREE TIMES A D AY NEEDED 01/02/2018 04/01/2018 Inactive Request already responded t o by other means (e.g. phone or fax) bupropion HCl XL 300 mg 24 hr tablet, extended release RxNorm: 720415 TAKE ONE TABLET BY MOUTH DAILY 12/29/2017 06/26/2018 Inactive Tamiflu 75 mg capsule RxNorm: 570011 1 Capsule(s) PO BID 12/27/2017 12/31/2017 Inactive Tamiflu 75 mg capsule RxNorm: 764173 1 Capsule(s) PO BID 12/27/2017 12/26/2017 Inactive tizanidine 4 mg tablet RxNorm: 028239 1 Tablet(s) PO TID as needed 12/25/2017 01/01/2018 Inactive levothyroxine 175 mc g tablet RxNorm: 065336 1 Tablet(s) PO daily 12/14/2017 12/13/2017 Inactive levothyroxine 175 mc g tablet RxNorm: 356496 1 Tablet(s) PO daily 12/14/2017 01/17/2018 Inactive baclofen 10 mg tablet RxNorm: 582170 Tablet(s) TAKE ONE TABLET BY MOUTH THREE TIMES A DAY NEEDED 12/13/2017 01/11/2018 Inactive baclofen 10 mg tablet RxNorm: 363438 TAKE ONE TABLET BY MOUTH THREE TIMES A D AY NEEDED 12/13/2017 12/12/2017 Inactive morphine 30 mg table t, crush resistant, extended release RxNorm: 4929200 1 Tablet(s) PO BID 12/12/2017 01/14/2018 Inactive clonazepam 1 mg tablet RxNorm: 772798 1/2 Tablet(s) PO daily 12/01/2017 08/27/2018 Inactive trazodone 50 mg tablet RxNorm: 414431 1/2 to 1 Tablet(s) QHS as needed 12/01/2017 03/30/2018 In active Opana ER 15 mg table t, crush resistant, extended release RxNorm: 242003 1 Tablet(s) PO Q12H 12/01/2017 02/13/2018 Inactive oxymorphone 5 mg tablet RxNorm: 237108 1 Tablet(s) PO Q6 PRN 12/01/2017 02/26/2018 Inactive Remeron 15 mg tablet RxNorm: 855396 Tablet(s) TAKE ONE TABLET BY MOUTH EVERY NIGHT AT BEDTIME 12/01/2017 02/28/2018 Inactive trazodone 50 mg tablet RxNorm: 816908 1/2 Tablet(s) as needed 1 Tablet(s) PO Q HS 12/01/2017 11/30/2017 In active clonazepam 1 mg tablet RxNorm: 043537 1/2 Tablet(s) PO daily 11/30/2017 11/30/2017 Inactive Remeron 15 mg tablet RxNorm: 619325 TAKE ONE TABLET BY MOUTH EVERY NIGHT AT BEDTIME 11/29/2017 11/30/2017 Inactive levothyroxine 200 mc g tablet RxNorm: 525421 TAKE ONE TABLET BY MO [place] DAILY 11/15/2017 12/13/2017 In active baclofen 10 mg tablet RxNorm: 900712 TAKE ONE TABLET BY MOUTH THREE TIMES A D AY NEEDED 11/07/2017 12/06/2017 Inactive diclofenac sodium 75 mg tablet,delayed release RxNorm: 568965 1 Tablet(s) PO BID 11/07/2017 05/05/2018 In active liothyronine 5 mcg t ablet RxNorm: 000053 TAKE ONE TABLET BY MO UTH DAILY 10/27/2017 07/18/2018 In active tizanidine 4 mg tablet RxNorm: 684710 1 Tablet(s) PO TID as needed 10/18/2017 12/16/2017 Inactive oxymorphone 5 mg tablet RxNorm: 789408 1 Tablet(s) PO Q6 PRN 09/29/2017 11/27/2017 Inactive morphine 30 mg table t, crush resistant, extended release RxNorm: 1595069 1 Tablet(s) PO BID 09/29/2017 11/28/2017 Inactive baclofen 10 mg tablet RxNorm: 357321 1 Tablet(s) PO TID as needed 09/11/2017 10/10/2017 Inactive baclofen 10 mg tablet RxNorm: 691952 1 Tablet(s) PO TID as needed 08/11/2017 09/09/2017 Inactive Opana ER 15 mg table t, crush resistant, extended release RxNorm: 453962 1 Tablet(s) PO Q12H 08/11/2017 09/28/2017 Inactive Remeron 15 mg tablet RxNorm: 686197 TAKE ONE TABLET BY MOUTH EVERY NIGHT AT BEDTIME 08/02/2017 10/30/2017 Inactive oxymorphone 5 mg tablet RxNorm: 267442 1 Tablet(s) PO Q6 PRN 08/02/2017 09/28/2017 Inactive Opana ER 5 mg tablet , crush resistant, extended release RxNorm: 661501 1 Tablet(s) PO Q6 PRN 08/01/2017 08/10/2017 Inactive Protonix 40 mg table t,delayed release RxNorm: 953805 TAKE ONE TABLET BY [facility] DAILY 06/26/2017 10/23/2017 In active Protonix 40 mg table t,delayed release RxNorm: 651323 TAKE ONE TABLET BY MO [facility] DAILY 06/26/2017 06/25/2017 In active bupropion HCl XL 300 mg 24 hr tablet, extended release RxNorm: 730969 TAKE ONE TABLET BY MOUTH DAILY 06/13/2017 12/09/2017 Inactive tizanidine 4 mg tablet RxNorm: 549508 1 Tablet(s) PO TID as needed 06/13/2017 06/12/2017 Inactive tizanidine 4 mg tablet RxNorm: 563503 1 Tablet(s) PO TID as needed 06/13/2017 09/10/2017 Inactive baclofen 10 mg tablet RxNorm: 326975 1 Tablet(s) PO TID as needed 06/13/2017 07/12/2017 Inactive Opana ER 15 mg table t, crush resistant, extended release RxNorm: 646879 1 Tablet(s) PO Q12H 06/09/2017 08/07/2017 Inactive Opana ER 5 mg tablet , crush resistant, extended release RxNorm: 636416 1 Tablet(s) PO Q6 PRN 06/09/2017 07/31/2017 Inactive diclofenac sodium 75 mg tablet,delayed release RxNorm: 232203 1 Tablet(s) PO BID 06/09/2017 09/06/2017 In active clonazepam 1 mg tablet RxNorm: 089133 1/2 Tablet(s) PO daily 05/24/2017 11/18/2017 Inactive bupropion HCl XL 300 mg 24 hr tablet, extended release RxNorm: 511083 TAKE ONE TABLET BY MOUTH DAILY 03/16/2017 06/12/2017 Inactive clonazepam 1 mg tablet RxNorm: 566443 1/2 Tablet(s) PO daily 02/22/2017 05/18/2017 Inactive Remeron 15 mg tablet RxNorm: 650930 TAKE ONE TABLET BY MOUTH EVERY NIGHT AT BEDTIME 02/06/2017 2017 Inactive Protonix 40 mg table t,delayed release RxNorm: 668028 TAKE ONE TABLET BY [facility] DAILY 01/26/2017 06/24/2017 In active mupirocin 2 % topica l ointment RxNorm: 577343 1 Application TOP BID 01/12/2017 01/18/2017 Inactive Bactrim DS 800 mg-16 0 mg tablet RxNorm: 845762 1 Tablet(s) PO BID 11/17/2016 11/23/2016 Inactive mupirocin 2 % topica l ointment RxNorm: 067532 1 Application TOP BID 11/10/2016 11/16/2016 Inactive Bactrim DS 800 mg-16 0 mg tablet RxNorm: 362834 1 Tablet(s) PO BID 11/10/2016 11/16/2016 Inactive bupropion HCl XL 300 mg 24 hr tablet, extended release RxNorm: 143182 TAKE ONE TABLET BY MOUTH DAILY 11/07/2016 03/06/2017 Inactive liothyronine 5 mcg t ablet RxNorm: 998212 1 Tablet(s) PO daily 11/01/2016 10/26/2017 Inactive levothyroxine 200 mc g tablet RxNorm: 154844 1 Tablet(s) PO daily 10/04/2016 09/28/2017 Inactive clonazepam 1 mg tablet RxNorm: 597185 1/2 Tablet(s) PO daily 09/21/2016 03/18/2017 Inactive clonazepam 1 mg tablet RxNorm: 142409 1/2 Tablet(s) PO daily 09/16/2016 09/20/2016 Inactive Abilify 2 mg tablet RxNorm: 398949 1 Tablet(s) PO daily 09/16/2016 10/13/2016 Inactive trazodone 50 mg tablet RxNorm: 361647 1/2 Tablet(s) as needed 1 Tablet(s) PO Q HS 09/16/2016 01/13/2017 In active morphine 15 mg immed iate release tablet RxNorm: 841754 1 Tablet(s) PO Q6 PRN 09/16/2016 04/06/2017 In active baclofen 10 mg tablet RxNorm: 023331 1 Tablet(s) PO TID as needed 09/16/2016 06/12/2017 Inactive MS Contin 30 mg tabl et,extended release RxNorm: 730258 1 Tablet(s) PO Q12H 09/16/2016 04/06/2017 In active Remeron 15 mg tablet RxNorm: 533351 1 Tablet(s) PO QHS 08/19/2016 09/15/2016 Inactive levothyroxine 200 mc g tablet RxNorm: 981879 1 Tablet(s) PO daily 08/11/2016 10/03/2016 Inactive bupropion HCl XL 300 mg 24 hr tablet, extended release RxNorm: 211284 TAKE ONE TABLET BY MOUTH DAILY 08/11/2016 11/06/2016 Inactive Protonix 40 mg table t,delayed release RxNorm: 839261 1 Tablet(s) PO daily 06/17/2016 12/13/2016 In active bupropion HCl XL 300 mg 24 hr tablet, extended release RxNorm: 568810 1 Tablet(s) PO daily 05/12/2016 07/10/2016 Inactive bupropion HCl XL 300 mg 24 hr tablet, extended release RxNorm: 793349 1 Tablet(s) PO daily 05/12/2016 05/11/2016 Inactive Cialis 20 mg tablet RxNorm: 943594 1 Tablet(s) PO PRN 02/16/2016 No Stop Date Active not more than 1 tab in 24 hours morphine ER 10 mg ca psule,extended release pellets RxNorm: 844793 1 Tablet(s) PO Q6 as needed 02/16/2016 11/16/2016 Inactive clonazepam 1 mg tablet RxNorm: 407562 1/2 Tablet(s) PO BID 02/16/2016 09/15/2016 Inactive trazodone 50 mg tablet RxNorm: 594269 1/2 Tablet(s) as needed 1 Tablet(s) PO Q HS 02/16/2016 08/18/2016 In active trazodone 50 mg tablet RxNorm: 894730 1/2 Tablet(s) 1 Tablet(s) PO QHS 11/17/2015 02/15/2016 In active trazodone 50 mg tablet RxNorm: 320523 1 Tablet(s) PO QHS 10/19/2015 11/16/2015 Inactive levothyroxine 200 mc g tablet RxNorm: 176152 1 Tablet(s) PO daily 10/02/2015 08/10/2016 Inactive Wellbutrin XL 150 mg 24 hr tablet, extended release RxNorm: 130988 1 Tablet(s) PO daily 10/02/2015 05/11/2016 Inactive levothyroxine 200 mc g tablet RxNorm: 847993 1 Tablet(s) PO daily 09/30/2015 10/01/2015 Inactive Wellbutrin XL 150 mg 24 hr tablet, extended release RxNorm: 198438 1 Tablet(s) PO daily 09/30/2015 10/01/2015 Inactive trazodone 50 mg tablet RxNorm: 275881 1 Tablet(s) PO QHS 09/11/2015 10/10/2015 Inactive trazodone 50 mg tablet RxNorm: 434162 1 Tablet(s) PO QHS 09/11/2015 09/10/2015 Inactive Cymbalta 30 mg capsu le,delayed release RxNorm: 102188 1 Capsule(s) PO daily 09/07/2015 11/16/2015 In active Cymbalta 60 mg capsu le,delayed release RxNorm: 393209 1 Capsule(s) PO daily 08/31/2015 08/30/2015 In active Cymbalta 30 mg capsu le,delayed release RxNorm: 741288 1 Capsule(s) PO daily take with 60mg to make 90 mg daily 08/31/2015 09/06/2015 Inactive Cymbalta 30 mg capsu le,delayed release RxNorm: 631780 1 Capsule(s) PO daily take with 60mg to make 90 mg daily 08/31/2015 08/30/2015 Inactive Cymbalta 60 mg capsu le,delayed release RxNorm: 505687 1 Capsule(s) PO daily x 7 days and then increase to 90mg daily 08/31/2015 09/07/2015 Inactive levothyroxine 200 mc g tablet RxNorm: 134892 1 Tablet(s) PO daily 08/14/2015 09/29/2015 Inactive Wellbutrin XL 150 mg 24 hr tablet, extended release RxNorm: 153140 1 Tablet(s) PO daily 07/14/2015 09/29/2015 Inactive Cialis 20 mg tablet RxNorm: 582619 1 Tablet(s) PO PRN 07/02/2015 02/15/2016 Inactive not more than 1 tab in 24 hours liothyronine 5 mcg t ablet RxNorm: 798567 1 Tablet(s) PO daily 2015 05/29/2016 Inactive clonazepam 1 mg tablet RxNorm: 133416 1 Tablet(s) PO TID 2015 02/15/2016 Inactive minocycline 50 mg ta blet RxNorm: 493231 1 Tablet(s) PO daily 2015 05/11/2016 Inactive Wellbutrin XL 150 mg 24 hr tablet, extended release RxNorm: 362333 1 Tablet(s) PO daily 04/23/2015 07/13/2015 Inactive levothyroxine 200 mc g tablet RxNorm: 822765 1 Tablet(s) PO daily 04/23/2015 08/13/2015 Inactive Aleve oral RxNorm: 797155 oral No Start Date Active Tylenol 500 mg RxNorm: oral No Start Date Active morphine ER 15 mg ta blet,extended release RxNorm: 751974 oral No Start Date 11/16/2016 Inactive Trazadone 25 mg RxNorm: 2 PO daily No Start Date 09/11/2015 Inactive diclofenac oral RxNorm: 3355 oral No Start Date 05/04/2018 Inactive clonazepam 1 mg tablet RxNorm: 588101 1 Tablet(s) PO QHS No Start Date 06/04/2015 Inactive Wellbutrin XL 150 mg 24 hr tablet, extended release RxNorm: 714775 1 Tablet(s) PO daily No Start Date 04/22/2015 Inactive minocycline 50 mg ta blet RxNorm: 732920 1 Tablet(s) PO daily No Start Date 06/04/2015 Inactive methadone 5 mg tablet RxNorm: 094207 1 Tablet(s) PO Q8 No Start Date 02/15/2016 Inactive Protonix 40 mg table t,delayed release RxNorm: 209202 Tablet(s) PO daily No Start Date 06/16/2016 Inactive Opana ER 15 mg table t, crush resistant, extended release RxNorm: 230016 1 Tablet(s) PO Q12H No Start Date 06/08/2017 Inactive MS Contin 30 mg tabl et,extended release RxNorm: 052303 1 Tablet(s) PO Q12H No Start Date 02/15/2016 Inactive Opana ER 15 mg table t, crush resistant, extended release RxNorm: 337422 1 Tablet(s) PO BID No Start Date 09/15/2016 Inactive liothyronine 5 mcg t ablet RxNorm: 346340 1 Tablet(s) PO daily No Start Date 06/04/2015 Inactive Cialis 20 mg tablet RxNorm: 573230 1 Tablet(s) PO PRN No Start Date 07/01/2015 Inactive not more than 1 tab in 24 hours baclofen 10 mg tablet RxNorm: 791746 1 Tablet(s) PO TID as needed No Start Date 05/11/2016 Inactive morphine 15 mg immed iate release tablet RxNorm: 474567 1 Tablet(s) PO Q6 PRN as needed No Start Date 02/15/2016 Inactive levothyroxine 200 mc g tablet RxNorm: 826086 1 Tablet(s) PO daily No Start Date 04/22/2015 Inactive Opana ER 5 mg tablet , crush resistant, extended release RxNorm: 344425 1 Tablet(s) PO Q6 No Start Date 06/08/2017 Inactive Medication Administered No Medication Administered data Immunizations No Immunization data Assessments Condition Codes Effectiv e Dates Chronic pain syndrome ICD-10: G89.4 ICD-9: 338.4 09/27/2018 Hypothyroidism, unspecified ICD-10: E03.9 ICD-9: 244.9 09/27/2018 Other fatigue ICD-10: R53.83 ICD-9: 780.79 09/27/2018 Other obesity due to excess calories ICD-10: E66.09 ICD-9: 278.00 09/27/2018 Major depressive disorder, recurrent, moderate ICD-10: F33.1 ICD-9: 296.32 09/27/2018 Encounter for general adult medical exam [...] Reason For Visit Effective Dates Notes fatigue 09/27/2018 Annual Medicare Wellness Exam 09/17/2018 [...] Item Item Code Result Date Free T4 [id number] FREE T4 1.54 ng/dL 11/05/2018 Tsh Ord6 TSH (3rd IS) 0.02 uIU/mL 11/05/2018 Vitamin D 25 Oh Ost8922 VITAMIN D, 25 HYDROXY 30.96 ng/mL 07/06/2018 Comp Metabolic Ted033 NA 141 mEq/L 07/06/2018 Comp Metabolic Dsd252 K 4.2 mEq/L 07/06/2018 Comp Metabolic Bji734 CL 103 mEq/L 07/06/2018 Comp Metabolic Pra150 CO2 29.0 mEq/L 07/06/2018 Comp Metabolic Sis541 AN ION GAP 13 07/06/2018 Comp Metabolic Yyt733 GL UCOSE 105 mg/dL 07/06/2018 Comp Metabolic Qml873 Cr eat 0.8 mg/dL 07/06/2018 Comp Metabolic Hji569 eG FR 101 ml/min/1.73m2 06/27 Comp Metabolic Wem675 BUN 7 mg/dL 07/06/2018 Comp Metabolic Iyk572 B/ C Ratio 8.3 Ratio 07/06/2018 Comp Metabolic Cdv545 CA LCIUM 9.9 mg/dL 07/06/2018 Comp Metabolic Lvr166 AL K PHOS 65 U/L 07/06/2018 Comp Metabolic Bfg446 T(SGOT) 21 U/L 07/06/2018 Comp Metabolic Qqt993 AL T(SGPT) 31 U/L 07/06/2018 Comp Metabolic Mhu042 BI LI T 0.3 mg/dL 07/06/2018 Comp Metabolic Vmi426 AL BUMIN 4.3 g/dL 07/06/2018 Comp Metabolic Flu914 TP RO 6.4 g/dL 07/06/2018 Comp Metabolic Fte151 GL OB 2.1 g/dL 07/06/2018 Comp Metabolic Nls451 A/ G Ratio 2.0 Ratio 07/06/2018 Comp Metabolic Vpu619 Os mo 280 mOsmo 07/06/2018 Cbc With [...] 29.3 pg 07/06/2018 Cbc With Differential Ord2 [place]% 10.5 % 07/06/2018 Cbc With Differential Ord2 [...] 1.89 K/ul 07/06/2018 Cbc With Differential Ord2 [place] ABS# 0.5 K/ul 07/06/2018 Cbc With Differential Ord2 Eos ABS# 0.3 K/ul 07/06/2018 Cbc With Differential Ord2 Baso ABS# 0.0 K/ul 07/06/2018 Total Psa Ord10 PSA 0.34 ng/mL 07/06/2018 Tsh Ord6 TSH (3rd IS) 0.02 uIU/mL 07/06/2018 Testosterone Vts305 Testo 400.6 ng/dL 07/06/2018 Free T4 Zkt652 FREE T4 1.48 ng/dL 07/06/2018 [place] Spotted Fever Igg/Igm 54180 3 [place] SPOTTED FEVER IGM EIA . 04/04/2018 [place] Spotted Fever Igg/Igm 60699 3 RMSF, IGM 0.24 index 04/04/2018 [place] Spotted Fever Igg/Igm 87883 3 [place]THA MT SPOTTED FEVER IGG EIA FLEX . 04/04/2018 [place] Spotted Fever Igg/Igm 65462 3 RMSF, IGG SCREEN-FLEX Equivocal 04/04/2018 [place] Spot'D Fev Igg 238976 RMSF, IGG- TITER IFA <1:64 04/04/2018 Ehrlichia Chaffeensis Antibody Igg [id number] EHRLICHIA CHAFFEENSIS IGG <1:64 04/02/2018 Ehrlichia Chaffeensis Antibody Igm [id number] EHRLICHIA CHAFFEENSIS IGM < 1:16 04/02/2018 Lymes Disease Total Antibodies With Western Blot Refle x [id number] B. BURGDORFERI, IGG/IGM 0.23 03/30/2018 Lymes Disease Total Antibodies With Western Blot Refle x [id number] 03/30/2018 Cbc With Differential Ord2 WBC 5.04 [...] 28.7 pg 03/28/2018 Cbc With Differential Ord2 [place]% 16.1 % 03/28/2018 Cbc With Differential Ord2 [...] 1.37 K/ul 03/28/2018 Cbc With Differential Ord2 [place] ABS# 0.8 K/ul 03/28/2018 Cbc With Differential Ord2 Eos ABS# 0.1 K/ul 03/28/2018 Cbc With Differential Ord2 Baso ABS# 0.0 K/ul 03/28/2018 Comp Metabolic Lai964 NA 136 mEq/L 02/16/2018 Comp Metabolic Lpa704 K 3.9 mEq/L 02/16/2018 Comp Metabolic Ozf268 CL 103 mEq/L 02/16/2018 Comp Metabolic Efh568 CO2 23.0 mEq/L 02/16/2018 Comp Metabolic Gvv511 AN ION GAP 14 02/16/2018 Comp Metabolic Ycd355 GL UCOSE 133 mg/dL 02/16/2018 Comp Metabolic Ufi329 Cr eat 0.8 mg/dL 02/16/2018 Comp Metabolic Tcd472 eG FR 103 ml/min/1.73m2 01/26 Comp Metabolic Jjo980 BUN 7 mg/dL 02/16/2018 Comp Metabolic Yqz143 B/ C Ratio 8.4 Ratio 02/16/2018 Comp Metabolic Ihe735 CA LCIUM 9.3 mg/dL 02/16/2018 Comp Metabolic Hvl914 AL K PHOS 71 U/L 02/16/2018 Comp Metabolic Ixy920 T(SGOT) 42 U/L 02/16/2018 Comp Metabolic Dqy012 AL T(SGPT) 69 U/L 02/16/2018 Comp Metabolic Ony137 BI LI T 0.3 mg/dL 02/16/2018 Comp Metabolic Gft407 AL BUMIN 4.1 g/dL 02/16/2018 Comp Metabolic Eqb937 TP RO 6.3 g/dL 02/16/2018 Comp Metabolic Rvs774 GL OB 2.2 g/dL 02/16/2018 Comp Metabolic Xcw979 A/ G Ratio 1.8 Ratio 02/16/2018 Comp Metabolic Xkd438 Os mo 272 mOsmo 02/16/2018 Free T4 Khx669 FREE T4 1.85 ng/dL 02/16/2018 Ferritin Ord22 FERRITIN 161.7 ng/mL 02/16/2018 Tsh Ord6 TSH (3rd IS) 0.01 uIU/mL 02/16/2018 Test(s) Not Perfromed [id number] Test(s) Not Performed Test(s) Not Performed. See Below: 02/16/2018 Test(s) Not Perfromed [id number] TEST NAME CBC 02/16/2018 Test(s) Not Perfromed [id number] Rejection Reason No Suitable Specimen Receive d 02/16/2018 Test(s) Not Perfromed [id number] COMMENT Please Recollect Sample 02/16/2018 Test(s) Not Perfromed [id number] Manager Sourcing Fernando Jay Jay 02/16/2018 Tibc Ord40 Iron 138 ug/dl 02/16/2018 [...] 26.4 pg 01/05/2018 Cbc With Differential Ord2 Bowman% 11.9 % 01/05/2018 Cbc With Differential Ord2 [...] 2.08 K/ul 01/05/2018 Cbc With Differential Ord2 Bowman ABS# 0.6 K/ul 01/05/2018 Cbc With Differential Ord2 Eos ABS# 0.2 K/ul 01/05/2018 Cbc With Differential Ord2 Baso ABS# 0.0 K/ul 01/05/2018 Ferritin Ord22 FERRITIN 5.7 ng/mL 12/06/2017 Tibc Ord40 Iron 33 ug/dl 12/06/2017 Tibc Ord40 UIBC 431 ug/dL 12/06/2017 Tibc Ord40 TIBC 464 ug/dL 12/06/2017 Tibc Ord40 Fe-%Sat 7.1 % 12/06/2017 Free T4 Wbs201 FREE T4 1.82 ng/dL 12/01/2017 Tsh Ord6 [...] 27.0 pg 12/01/2017 Cbc With Differential Ord2 Bowman% 10.6 % 12/01/2017 Cbc With Differential Ord2 [...] 1.92 K/ul 12/01/2017 Cbc With Differential Ord2 Bowman ABS# 0.4 K/ul 12/01/2017 Cbc With Differential Ord2 Eos ABS# 0.2 K/ul 12/01/2017 Cbc With Differential Ord2 Baso ABS# 0.0 K/ul 12/01/2017 Comp Metabolic Pqs515 NA 136 mEq/L 12/01/2017 Comp Metabolic Kax849 K 4.6 mEq/L 12/01/2017 Comp Metabolic Zlu410 CL 102 mEq/L 12/01/2017 Comp Metabolic Yqk749 CO2 27.0 mEq/L 12/01/2017 Comp Metabolic Oco546 AN ION GAP 12 12/01/2017 Comp Metabolic Vzq881 GL UCOSE 90 mg/dL 12/01/2017 Comp Metabolic Tfr330 Cr eat 0.7 mg/dL 12/01/2017 Comp Metabolic Roz643 eG FR 123 ml/min/1.73m2 03/2018 Comp Metabolic Tei211 BUN 4 mg/dL 12/01/2017 Comp Metabolic Izd229 B/ C Ratio 5.6 Ratio 12/01/2017 Comp Metabolic Mtu302 CA LCIUM 9.0 mg/dL 12/01/2017 Comp Metabolic Jfz536 AL K PHOS 67 U/L 12/01/2017 Comp Metabolic Cel293 T(SGOT) 30 U/L 12/01/2017 Comp Metabolic Tys031 AL T(SGPT) 29 U/L 12/01/2017 Comp Metabolic Pez830 BI LI T 0.3 mg/dL 12/01/2017 Comp Metabolic Hrj888 AL BUMIN 4.1 g/dL 12/01/2017 Comp Metabolic Wuj660 TP RO 6.1 g/dL 12/01/2017 Comp Metabolic Plt520 GL OB 2.0 g/dL 12/01/2017 Comp Metabolic Nij281 A/ G Ratio 2.0 Ratio 12/01/2017 Comp Metabolic Jfw695 Os mo 268 mOsmo 12/01/2017 Comp Metabolic Neo374 NA 136 mEq/L 02/16/2016 Comp Metabolic Ifi063 K 4.2 mEq/L 02/16/2016 Comp Metabolic Dsd143 CL 104 mEq/L 02/16/2016 Comp Metabolic Emm677 CO2 20.0 mEq/L 02/16/2016 Comp Metabolic Klk160 AN ION GAP 16 02/16/2016 Comp Metabolic Lge266 GL UCOSE 71 mg/dL 02/16/2016 Comp Metabolic Zbr415 Cr eat 0.8 mg/dL 02/16/2016 Comp Metabolic Djd063 eG FR 113 ml/min/1.73m2 01/26 Comp Metabolic Jsa344 BUN 7 mg/dL 02/16/2016 Comp Metabolic Gdr621 B/ C Ratio 9.1 Ratio 02/16/2016 Comp Metabolic Vty737 CA LCIUM 9.4 mg/dL 02/16/2016 Comp Metabolic Lei009 AL K PHOS 57 U/L 02/16/2016 Comp Metabolic Svj159 T(SGOT) 30 U/L 02/16/2016 Comp Metabolic Ioz937 AL T(SGPT) 27 U/L 02/16/2016 Comp Metabolic Hlw015 BI LI T 0.2 mg/dL 02/16/2016 Comp Metabolic Qmh240 AL BUMIN 4.4 g/dL 02/16/2016 Comp Metabolic Jcv602 TP RO 6.5 g/dL 02/16/2016 Comp Metabolic Mdx867 GL OB 2.1 g/dL 02/16/2016 Comp Metabolic Ely419 A/ G Ratio 2.1 Ratio 02/16/2016 Comp Metabolic Jpk196 Os mo 268 mOsmo 02/16/2016 Free T4 Thu915 FREE T4 1.20 ng/dL 02/16/2016 Cbc With [...] 90.6 fl 02/16/2016 Cbc With Differential Ord2 Bowman% 9.6 % 02/16/2016 Cbc With Differential Ord2 [...] 1.50 K/ul 02/16/2016 Cbc With Differential Ord2 Bowman ABS# 0.5 K/ul 02/16/2016 Cbc With Differential [...] Result Effective Dates Constitutional No recent illness 09/27/2018 Constitutional No [...] Respiratory dyspnea on exertion 09/27/2018 Respiratory snoring 11/0 11/2017 Gastrointestinal No constipation 09/27/2018 Gastrointestinal No [...] 4: G0439 09/17/2018 Vital Signs Date Vital 09/27/2018 Blood Pressure 1: 92/66 Code: 8480-6 BMI: 37.9 Code: 09855-0 Heart Rate 1: 66 bpm Height: 5'6" SpO2: 98% Weight: 235 lbs 09/17/2018 Blood Pressure 1: 110/72 Code: 8480-6 BMI: 38.3 Code: 55928-2 Heart Rate 1: 77 bpm Height: 5'6" SpO2: 95% Waist Measure (cm): 102 cm Weight: 237 lbs 09/03/2018 Blood Pressure 1: 122/68 Code: 8480-6 BMI: 37.6 Code: 73381-4 Heart Rate 1: 78 bpm Height: 5'6" SpO2: 97% Weight: 233 lbs 07/05/2018 Blood Pressure 1: 94/62 Code: 8480-6 BMI: 36.8 Code: 78199-9 Heart Rate 1: 88 bpm Height: 5'6" SpO2: 99% Weight: 228 lbs 05/04/2018 Blood Pressure 1: 110/80 Code: 8480-6 BMI: 35.5 Code: 69879-3 Heart Rate 1: 80 bpm Height: 5'6" SpO2: 99% Weight: 220 lbs 03/28/2018 Blood Pressure 1: 110/72 Code: 8480-6 BMI: 35.0 Code: 13221-1 Heart Rate 1: 80 bpm Height: 5'6" SpO2: 98% Temperature: 36.2 (C ) / 97.1 (F) Weight: 217 lbs 02/27/2018 Blood Pressure 1: 136/76 Code: 8480-6 BMI: 36.0 Code: 67905-7 Heart Rate 1: 80 bpm Height: 5'6" SpO2: 98% Weight: 223 lbs 12/01/2017 Blood Pressure 1: 132/72 Code: 8480-6 BMI: 33.4 Code: 31669-8 Heart Rate 1: 82 bpm Height: 5'6" SpO2: 97% Weight: 207 lbs 09/29/2017 Blood Pressure 1: 124/68 Code: 8480-6 BMI: 32.1 Code: 05763-5 Heart Rate 1: 77 bpm Height: 5'6" SpO2: 98% Weight: 199 lbs 08/11/2017 Blood Pressure 1: 154/82 Code: 8480-6 BMI: 31.6 Code: 89138-3 Heart Rate 1: 75 bpm Height: 5'6" SpO2: 98% Weight: 196 lbs 06/09/2017 Blood Pressure 1: 148/88 Code: 8480-6 BMI: 28.6 Code: 03872-8 Heart Rate 1: 88 bpm Height: 5'6" SpO2: 98% Weight: 177 lbs 04/07/2017 Blood Pressure 1: 140/84 Code: 8480-6 BMI: 30.3 Code: 80253-6 Heart Rate 1: 81 bpm Height: 5'6" SpO2: 99% Weight: 188 lbs 11/17/2016 Blood Pressure 1: 130/72 Code: 8480-6 Heart Rate 1: 63 bpm Height: SpO2: 93% Weight: 11/10/2016 Blood Pressure 1: 128/86 Code: 8480-6 BMI: 30.3 Code: 25680-9 Heart Rate 1: 84 bpm Height: 5'6" SpO2: 96% Weight: 188 lbs 10/14/2016 Heigh t: 5'6" 09/16/2016 Blood Pressure 1: 130/80 Code: 8480-6 BMI: 30.3 Code: 08632-9 Heart Rate 1: 67 bpm Height: 5'6" SpO2: 99% Weight: 188 lbs 08/19/2016 Blood Pressure 1: 110/62 Code: 8480-6 BMI: 29.9 Code: 97444-2 Heart Rate 1: 70 bpm Height: 5'6" SpO2: 97% Weight: 185 lbs 06/17/2016 Blood Pressure 1: 112/68 Code: 8480-6 BMI: 27.6 Code: 76774-8 Heart Rate 1: 61 bpm Height: 5'6" SpO2: 98% Weight: 171 lbs 05/12/2016 Blood Pressure 1: 130/76 Code: 8480-6 BMI: 29.7 Code: 52582-2 Heart Rate 1: 103 bpm Height: 5'6" SpO2: 98% Weight: 184 lbs 02/16/2016 Blood Pressure 1: 140/82 Code: 8480-6 BMI: 28.7 Code: 67213-5 Heart Rate 1: 66 bpm Height: 5'6" SpO2: 99% Weight: 178 lbs 11/17/2015 Blood Pressure 1: 120/74 Code: 8480-6 BMI: 29.4 Code: 18377-7 Heart Rate 1: 90 bpm Height: 5'6" SpO2: 94% Weight: 182 lbs 08/28/2015 Blood Pressure 1: 128/76 Code: 8480-6 BMI: 27.9 Code: 61292-9 Heart Rate 1: 80 bpm Height: 5'6" SpO2: 98% Weight: 173 lbs 05/28/2015 Blood Pressure 1: 122/70 Code: 8480-6 BMI: 27.0 Code: 33649-6 Heart Rate 1: 74 bpm Height: 5'6" SpO2: 98% Weight: 167 lbs 04/23/2015 Blood Pressure 1: 110/60 Code: 8480-6 BMI: 27.0 Code: 84989-4 Heart Rate 1: 68 bpm Height: 5'6" Weight: 167 lbs Functional Status No Functional Status data History of Present Illness Symptom Name Status Resu lt Effective Date Notes fatigue Limitation on Activities moderately limits activities [...] and Resolution ongoing 09/03/2018 None hypothyroid Quality buffer chrome fe 09/03/2018 None hypothyroid Onset and Resolution [...] fatigue Quality constant 07/05/2018 None hypothyroid Quality buffer chrome fe 07/05/2018 None hypothyroid Onset and Resolution [...] Findings weight loss 03/28/2018 None hypothyroid Quality buffer chrome fe 02/27/2018 None hypothyroid Onset and Resolution [...] Encounters Encounter Performer Loca tion Codes Date ([id number]) 96535 EST. P ATIENT, LEVEL IV Diagnosis: Chronic pain syndrome[ICD10: G89.4] Diagnosis: Hypothyroidism, unspecified[ICD10: E03.9] Diagnosis: Other fatigue[ICD10: R53.83] Diagnosis: Other obesity due to excess calories[ICD10: E66.09] Diagnosis: Major depressive disorder, recurrent, moderate[ICD10: F33.1] Leydi Jacobo MD, [facility] CPT-4: 17081 09/27/2018 ([id number]) 83594 EST. P ATIENT, LEVEL III Diagnosis: Chronic pain syndrome[ICD10: G89.4] Leydi Jacobo MD, [facility] CPT-4: 07580 09/03/2018 ([id number]) 62850 EST. P ATIENT, LEVEL IV Diagnosis: Hypothyroidism, unspecified[ICD10: E03.9] Diagnosis: Major depressive disorder, recurrent, moderate[ICD10: F33.1] Diagnosis: Chronic pain syndrome[ICD10: G89.4] Diagnosis: Other male erectile dysfunction[ICD10: N52.8] Diagnosis: Other fatigue[ICD10: R53.83] Diagnosis: Encounter for screening for malignant neoplasm of prostate[ICD10: Z12.5] Leydi Jacobo MD, [facility] CPT-4: 95714 07/05/2018 ([id number]) 01523 EST. P ATIENT, LEVEL IV Diagnosis: Chronic pain syndrome[ICD10: G89.4] Diagnosis: Hypothyroidism, unspecified[ICD10: E03.9] Diagnosis: Major depressive disorder, recurrent, moderate[ICD10: F33.1] Leydi Jacobo MD, [facility] CPT-4: 69090 05/04/2018 [id number] EST. PATIENT, LEVEL IV Diagnosis: Melena[ICD10: K92.1] Diagnosis: Other malaise[ICD10: R53.81] Diagnosis: Other fatigue[ICD10: R53.83] Diagnosis: Pain in unspecified joint[ICD10: M25.50] Diagnosis: Diarrhea, unspecified[ICD10: R19.7] Denae Jacobo MD, [facility] CPT-4: 37229 03/28/2018 ([id number]) 83980 EST. P ATIENT, LEVEL IV Diagnosis: Chronic pain syndrome[ICD10: G89.4] Diagnosis: Hypothyroidism, unspecified[ICD10: E03.9] Diagnosis: Other obesity due to excess calories[ICD10: E66.09] Diagnosis: Major depressive disorder, recurrent, moderate[ICD10: F33.1] Diagnosis: Obstructive sleep apnea (adult) (pediatric)[ICD10: G47.33] Leydi Jacobo MD, [facility] CPT-4: 16290 02/27/2018 14080 EST. PATIENT, LEVEL IV Diagnosis: Other specified hypothyroidism[ICD10: E03.8] Diagnosis: Chronic pain syndrome[ICD10: G89.4] Diagnosis: Major depressive disorder, recurrent, moderate[ICD10: F33.1] Denae Jacobo MD, [facility] CPT-4: 82231 12/01/2017 ([id number]) 34185 EST. P ATIENT, LEVEL IV Diagnosis: Chronic pain syndrome[ICD10: G89.4] Diagnosis: Alcohol dependence, uncomplicated[ICD10: F10.20] Diagnosis: Major depressive disorder, recurrent, moderate[ICD10: F33.1] Leydi Jacobo MD, [facility] CPT-4: 03731 09/29/2017 ([id number]) 45692 EST. P ATIENT, LEVEL IV Diagnosis: Chronic pain syndrome[ICD10: G89.4] Diagnosis: Alcohol dependence, uncomplicated[ICD10: F10.20] Diagnosis: Major depressive disorder, recurrent, moderate[ICD10: F33.1] Leydi Jacobo MD, [facility] CPT-4: 21451 08/11/2017 ([id number]) 70774 EST. P ATIENT, LEVEL III Diagnosis: Chronic pain syndrome[ICD10: G89.4] Diagnosis: Major depressive disorder, recurrent, moderate[ICD10: F33.1] Leydi Jacobo MD, [facility] CPT-4: 25944 06/09/2017 ([id number]) 11096 EST. P ATIENT, LEVEL III Diagnosis: Chronic pain syndrome[ICD10: G89.4] Diagnosis: Pain in left knee[ICD10: M25.562] Leydi Jacobo MD, [facility] CPT- 4: 06888 04/07/2017 98788 EST. PATIENT, LEVEL II Diagnosis: Superficial foreign body of left upper arm, initial encounter[ICD10: S40.852A] Diagnosis: Cellulitis of left upper limb[ICD10: L03.114] Leydi Jacobo MD, [facility] CPT-4: 95930 11/17/2016 71781 EST. PATIENT, LEVEL II Diagnosis: Cellulitis of left upper limb[ICD10: L03.114] Leydi Jacobo MD, [facility] CPT-4: 19386 11/10/2016 ([id number]) 31050 EST. P ATIENT, LEVEL III Diagnosis: Chronic pain syndrome[ICD10: G89.4] Diagnosis: Major depressive disorder, recurrent, moderate[ICD10: F33.1] Leydi Jacobo MD, [facility] CPT-4: 38319 10/14/2016 75088 EST. PATIENT, LEVEL IV Diagnosis: Psychophysiologic insomnia[ICD10: F51.04] Diagnosis: Major depressive disorder, recurrent, moderate[ICD10: F33.1] Diagnosis: Alcohol dependence, uncomplicated[ICD10: F10.20] Diagnosis: Chronic pain syndrome[ICD10: G89.4] Leydi Jacobo MD, [facility] CPT-4: 55805 09/16/2016 ([id number]) 65657 EST. P ATIENT, LEVEL III Diagnosis: Pain in left shoulder[ICD10: M25.512] Diagnosis: Major depressive disorder, recurrent, moderate[ICD10: F33.1] Diagnosis: Psychophysiologic insomnia[ICD10: F51.04] Leydi Jacobo MD, [facility] CPT-4: 86584 08/19/2016 ([id number]) 89253 EST. P ATIENT, LEVEL III Diagnosis: Gastro-esophageal reflux disease without esophagitis[ICD10: K21.9] Diagnosis: Hypothyroidism, unspecified[ICD10: E03.9] Leydi Jacobo MD, [facility] CPT-4: 38633 06/17/2016 ([id number]) 01379 EST. P ATIENT, LEVEL IV Diagnosis: Gastro-esophageal reflux disease without esophagitis[ICD10: K21.9] Diagnosis: Hypothyroidism, unspecified[ICD10: E03.9] Diagnosis: Major depressive disorder, recurrent, moderate[ICD10: F33.1] Leydi Jacobo MD, [facility] CPT-4: 34578 05/12/2016 ([id number]) 58317 EST. P ATIENT, LEVEL III Diagnosis: Cervicalgia[ICD10: M54.2] Diagnosis: Hypothyroidism, unspecified[ICD10: E03.9] Diagnosis: Other male erectile dysfunction[ICD10: N52.8] [facility] CPT-4: 58272 02/16/2016 ([id number]) 82086 EST. P ATIENT, LEVEL III Diagnosis: Lumbago with sciatica, unspecified side[ICD10: M54.40] Diagnosis: Other male erectile dysfunction[ICD10: N52.8] Leydi Jacobo MD, [facility] CPT-4: 54386 11/17/2015 ([id number]) 91766 EST. P ATIENT, LEVEL III Diagnosis: Lumbago with sciatica, unspecified side[ICD10: M54.40] Diagnosis: Hypothyroidism, unspecified[ICD10: E03.9] Diagnosis: Other male erectile dysfunction[ICD10: N52.8] Leydi Jacobo MD, [facility] CPT-4: 46433 08/28/2015 ([id number]) 33484 EST. P ATIENT, LEVEL III Diagnosis: Back pain, chronic[ICD9: 724.5] Diagnosis: Depression[ICD9: 311] Diagnosis: Hypothyroid[ICD9: 244.9] Diagnosis: Bilateral calf pain[ICD9: 729.5] Julieta Jacobo MD, [facility] CPT-4: 22653 05/28/2015 ([id number]) OFFICE VISI T, NEW - LEVEL 4 Diagnosis: Back pain, chronic[ICD9: 724.5] Diagnosis: Depression[ICD9: 311] Diagnosis: Hypothyroid[ICD9: 244.9] Julieta Jacobo MD, [facility] CPT-4: 86321 04/23/2015 Plan of Care Planned Activity Notes C odes Status Date Visit Plan: Chronic pain with recen t [...] of control. 09/27/2018 Appointment: Leydi Hightower WPtel: [phone] (15 min) Moderate 09/27/2018 Patient Education: Patient [...] care surrogate. 09/17/2018 Appointment: Leydi Hightower WPtel: [phone] [facility] - Annual Wellness Visit 09/17/2018 Patient Education: Patient Medication Summary Completed 09/17/2018 Visit Plan: Chronic Pain Syndrome - pt has chronic pain - has been maintained on current medications, has not sought out other medications, only uses PRN pain medications as directed, and understands the consequences of over-medication. 09/03/2018 Appointment: Leydi Hightower WPtel: [phone] [place] (30 min) Complex 09/03/2018 Patient Education: [...] exposure. No change in current medications. Fatigue-weight guoc-QI-wpddq labs including testosterone level 07/05/2018 Visit Plan: [...] exposure. No change in current medications. Fatigue-weight dskd-ZT-eqkqc labs including testosterone level 07/05/2018 Appointment: Leydi Hightowre WPtel: [address] [place], [place] [phone] [place] (15 min) Moderate 07/05/2018 Patient Education: [...] BID 05/04/2018 Appointment: [phone] (15 min) Moderate 05/04/2018 Patient Education: Patient [...] Martínez [facility]el[phone] [facility] [place] [place] (30 min) Complex 03/28/2018 Appointment: Nurse [...] time. 02/27/2018 Appointment: [facility]ightower [phone] [facility] [phone] (15 min) Moderate 02/27/2018 Patient Education: Patient [...] on previous levels of control. 12/01/2017 Appointment: Deane Martínez [facility]el[phone] [place] (30 min) Complex 12/01/2017 Patient Education: Patient [...] 09/29/2017 Appointment: Leydi Hightower WPtel: [facility] [phone] (30 min) Complex 09/29/2017 Patient Education: Patient [...] cons ider 08/11/2017 Appointment: Leydi Hightower WPtel: [address] [place], [place] [phone] (30 min) Complex 08/11/2017 Patient Education: Patient [...] current medications. 06/09/2017 Appointment: Leydi Hightower WPtel: [phone] [place] (30 min) Complex 06/09/2017 Patient Education: Patient [...] 11/17/2016 Appointment: Leydi Hightower WPtel: [facility] [phone] (30 min) Complex 11/17/2016 Patient Education: Patient [...] in pain. 11/10/2016 Appointment: Leydi Hightower WPtel: [facility] [phone] [place] (30 min) Complex 11/10/2016 Patient Education: [...] of plan. 10/14/2016 Appointment: Leydi Hightower WPtel: [address] [place], [place] [phone] (30 min) Complex 10/14/2016 Patient Education: Patient [...] will try 09/16/2016 Appointment: Leydi Hightower WPtel: [phone] (30 min) Complex 09/16/2016 Patient Education: Patient Medication Summary Completed 09/16/2016 Visit Plan: Left shoulder and elbow pain-xray shoulder and elbow Cqsguogcco-wbjullzy-cxdcyuovyyyz-d/c trazodone-start remeron at bedtime Pt has been [...] this patient. 08/19/2016 Appointment: Leydi Hightower WPtel: [phone] (30 min) Complex 08/19/2016 Patient Education: Patient [...] Completed 06/17/2016 Appointment: Leydi Hightower WPtel: [phone] [phone] (30 min) Complex 06/09/2016 Visit Plan: Esophageal [...] of control. 05/12/2016 Appointment: Leydi Hightower WPtel: [phone] [phone] (30 min) Complex 05/12/2016 Patient Education: Patient [...] 05/28/2015 Appointment: Leydi Hightower WPtel: [facility] [phone] (30 min) Complex 05/28/2015 Patient Education: Patient [...] Care Plan: COMPLETE CBC AUTOMATED LOINC : 03516-1 Ordered 04/23/2015 Instructions Comment . Chronic pain-manag [...] week-call if symptoms do not completely resolve STOP TRAZODONE START REMERON AT BEDTIME . Left shoulder and elbow pain-xray shou lder and elbow Cwrtytfinu-qtvyeblo-uzyetudagscu-d/c trazodone-start remeron at bedtime Pt has been [...] exposure. No change in current medications. Fatigue-weight sziu-JJ-pztdn labs including testosterone level . Chronic Pain [...] exposure. No change in current medications. Fatigue-weight nqkn-IF-jipaf labs including testosterone level . Chronic Pain [...] alcohol dependence-discussed referral to psychologist-patient will consider CHECK LABS AT NEXT A PPT INCREASE [employer] MA[employer]GER TO TWICE DAILY . Chronic Pain Syndrome [...] worse. Patient verbalized understanding of plan. . Abscess/Cellulitis - The patient was instructed [...] size of the lesion, increase in pain. Repeat labs in 2 mon ths . [...]
--- OUTSIDE RECORDS SUMMARY | 2020-03-17 15:08 | XMS REPORT | CCD ---
Author Author Thai Castillo Organization Sara Jacobo MD, [facility] Address [address] [place] [address] Phone Care Team Providers Care Loss Prevention Consultant Name Role Phone PP Unavailable CCM Unavailable Summary Purpose Interface Exchange Insurance Providers Payer name Policy type / Coverage type Covered democrat ID Effective Begin Date Effective End Date WPS Medicare Part B Medicare Part B [id number] Unknown [facility] icare Part B [id number] Un known Family history Father Diagnosis Age At Onset Colon cancer Unknown Social History Social History Element Codes Description Effective Dates Employment Unknown [employer] nt[employer] unemployed Before disability 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/27/2018 On Disability Unknown Yes 09/27/2018 Marital status Unknown D ivorced 04/23/[address]: 141831521 Never smoker 04/23/[address]: 984965 Currently drinks alcohol occasionally drinks 04/23/2015 Allergies, [...] Date Stop Date Sta tus Fill Instructions Lasix 20 mg tablet RxNorm: 937244 1 Tablet(s) PO daily as needed 10/10/2018 11/08/2018 Ac tive potassium chloride E R 10 mEq tablet,extended release RxNorm: 975145 1 Tablet(s) PO daily as needed to take with lasix for inceased edema 10/10/2018 11/08/2018 Active potassium chloride E R 10 mEq tablet,extended release RxNorm: 923959 1 Tablet(s) PO daily as needed to take with lasix for inceased edema 10/10/2018 10/09/2018 Inactive Lasix 20 mg tablet RxNorm: 230300 1 Tablet(s) PO daily as needed 10/10/2018 10/09/2018 In active doxycycline hyclate 100 mg tablet RxNorm: 1175618 1 Tablet(s) PO BID 09/27/2018 10/10/2018 Inactive Remeron 15 mg tablet RxNorm: 650200 1.5 Tablet(s) PO QPM TAKE ONE TABLET BY MOUTH EVERY NIGHT AT BEDTIME 09/18/2018 12/16/2018 Active baclofen 10 mg tablet RxNorm: 113770 TAKE ONE TABLET BY MOUTH THREE TIMES A D AY NEEDED 09/12/2018 11/10/2018 Active oxymorphone 5 mg tablet RxNorm: 948312 1 Tablet(s) PO Q6 PRN 09/03/2018 11/01/2018 Active morphine 30 mg table t, crush resistant, extended release RxNorm: 9525916 1 Tablet(s) PO BID 09/03/2018 11/01/2018 Active trazodone 50 mg tablet RxNorm: 838393 TAKE ONE TABLET BY MOUTH EVERY NIGHT AT BEDTIME AND ONE-HALF TABLET BY MOUTH NEEDED 09/03/2018 10/12/2018 Active Remeron 15 mg tablet RxNorm: 022604 1.5 Tablet(s) PO QPM TAKE ONE TABLET BY MOUTH EVERY NIGHT AT BEDTIME 09/03/2018 09/17/2018 Inactive tizanidine 4 mg tablet RxNorm: 833047 TAKE ONE TABLET BY MOUTH THREE TIMES A D AY NEEDED 08/20/2018 10/18/2018 Active Protonix 40 mg table t,delayed release RxNorm: 993595 TAKE ONE TABLET BY [facility] DAILY 08/10/2018 02/05/2019 Ac tive Carafate 1 gram tablet RxNorm: 118959 TAKE ONE TABLET BY MOUTH BEFORE MEALS AN D AT BEDTIME NEEDED FOR HEARTBURN 07/31/2018 12/27/2018 Active Protonix 40 mg table t,delayed release RxNorm: 159491 1 Tablet(s) BID 07/24/2018 07/23/2018 Inactive Protonix 40 mg table t,delayed release RxNorm: 117001 1 Tablet(s) daily 07/24/2018 08/09/2018 In active liothyronine 5 mcg t ablet RxNorm: 978203 TAKE ONE TABLET BY [facility] DAILY 07/19/2018 01/14/2019 Ac tive baclofen 10 mg tablet RxNorm: 870449 TAKE ONE TABLET BY MOUTH THREE TIMES A D AY NEEDED 07/12/2018 09/09/2018 Inactive levothyroxine 175 mc g tablet RxNorm: 028996 1 Tablet(s) PO daily 07/11/2018 11/07/2018 Active Vitamin D2 50,000 un it capsule RxNorm: 1715287 1 Capsule(s) PO QW 07/11/2018 10/02/2018 Inactive trazodone 50 mg tablet RxNorm: 627794 TAKE ONE TABLET BY MOUTH EVERY NIGHT AT BEDTIME AND ONE-HALF TABLET BY MOUTH NEEDED 07/11/2018 08/19/2018 Inactive Vitamin D2 50,000 un it capsule RxNorm: 2150387 1 Capsule(s) PO QW 07/11/2018 07/10/2018 Inactive morphine 30 mg table t, crush resistant, extended release RxNorm: 7528223 1 Tablet(s) PO BID 07/05/2018 09/02/2018 Inactive oxymorphone 5 mg tablet RxNorm: 671478 1 Tablet(s) PO Q6 PRN 07/05/2018 09/02/2018 Inactive bupropion HCl XL 300 mg 24 hr tablet, extended release RxNorm: 090471 TAKE ONE TABLET BY MOUTH DAILY 06/27/2018 12/23/2018 Active Remeron 15 mg tablet RxNorm: 900139 TAKE ONE TABLET BY MOUTH EVERY NIGHT AT BEDTIME 06/27/2018 09/02/2018 Inactive tizanidine 4 mg tablet RxNorm: 624165 TAKE ONE TABLET BY MOUTH THREE TIMES A D AY NEEDED 06/20/2018 08/18/2018 Inactive doxycycline hyclate 100 mg tablet RxNorm: 9953285 1 Tablet(s) PO BID 06/18/2018 07/01/2018 Inactive Protonix 40 mg table t,delayed release RxNorm: 968132 TAKE ONE TABLET BY [facility] DAILY 06/11/2018 07/23/2018 In active doxycycline hyclate 100 mg tablet RxNorm: 9435346 1 Tablet(s) PO BID 05/22/2018 06/04/2018 Inactive baclofen 10 mg tablet RxNorm: 076804 TAKE ONE TABLET BY MOUTH THREE TIMES A D AY NEEDED 05/14/2018 07/11/2018 Inactive diclofenac sodium 75 mg tablet,delayed release RxNorm: 568899 TAKE ONE TABLET BY [facility] TWICE A DAY 05/07/2018 10/03/2018 Inactive oxymorphone 5 mg tablet RxNorm: 719713 1 Tablet(s) PO Q6 PRN 05/04/2018 07/02/2018 Inactive morphine 30 mg table t, crush resistant, extended release RxNorm: 6034816 1 Tablet(s) PO BID 05/04/2018 07/02/2018 Inactive doxycycline hyclate 100 mg tablet RxNorm: 630380 1 Tablet(s) PO BID 04/24/2018 04/23/2018 Inactive doxycycline hyclate 100 mg tablet RxNorm: 3191054 1 Tablet(s) PO BID 04/24/2018 05/03/2018 Inactive baclofen 10 mg tablet RxNorm: 932412 TAKE ONE TABLET BY MOUTH THREE TIMES A D AY NEEDED 04/13/2018 05/12/2018 Inactive trazodone 50 mg tablet RxNorm: 739589 TAKE ONE TABLET BY MOUTH EVERY NIGHT AT BEDTIME AND ONE-HALF TABLET BY MOUTH NEEDED 04/09/2018 06/07/2018 Inactive Questran 4 gram powd er for susp in a packet RxNorm: 958352 1 packet PO BID 04/06/2018 06/04/2018 In active Questran 4 gram powd er for susp in a packet RxNorm: 563589 1 packet PO BID 04/06/2018 04/05/2018 In active Carafate 1 gram tablet RxNorm: 078765 1 Tablet(s) PO AC & HS as needed for hea rtburn 03/28/2018 04/26/2018 Inactive baclofen 10 mg tablet RxNorm: 222799 TAKE ONE TABLET BY MOUTH THREE TIMES A D AY NEEDED 03/16/2018 04/12/2018 Inactive Protonix 40 mg table t,delayed release RxNorm: 599448 TAKE ONE TABLET BY [facility] DAILY 03/16/2018 06/10/2018 In active Belviq XR 20 mg tabl et,extended release RxNorm: 3580549 1 Tablet(s) PO daily 02/27/2018 04/27/2018 In active oxymorphone 5 mg tablet RxNorm: 432583 1 Tablet(s) PO Q6 PRN 02/27/2018 04/27/2018 Inactive morphine 30 mg table t, crush resistant, extended release RxNorm: 1341046 1 Tablet(s) PO BID 02/27/2018 04/27/2018 Inactive levothyroxine 100 mc g tablet RxNorm: 096141 1 Tablet(s) PO daily 02/27/2018 07/10/2018 Inactive take with 88mcg to = 188mcg daily levothyroxine 88 mcg tablet RxNorm: 401847 1 Tablet(s) PO daily 02/27/2018 07/10/2018 Inactive take with 100mcg to = 188mcg daily morphine 30 mg table t, crush resistant, extended release RxNorm: 2447862 1 Tablet(s) PO BID 02/14/2018 02/26/2018 Inactive levothyroxine 200 mc g tablet RxNorm: 068723 Tablet(s) TAKE ONE TA BLET BY MOUTH DAILY 01/18/2018 02/26/2018 Inactive Updated script baclofen 10 mg tablet RxNorm: 207482 Tablet(s) TAKE ONE TABLET BY MOUTH THREE TIMES A DAY NEEDED 01/15/2018 02/13/2018 Inactive morphine 30 mg table t, crush resistant, extended release RxNorm: 2282286 1 Tablet(s) PO BID 01/15/2018 02/13/2018 Inactive tizanidine 4 mg tablet RxNorm: 285738 TAKE ONE TABLET BY MOUTH THREE TIMES A D AY NEEDED 01/02/2018 04/01/2018 Inactive Request already responded t o by other means (e.g. phone or fax) bupropion HCl XL 300 mg 24 hr tablet, extended release RxNorm: 162604 TAKE ONE TABLET BY MOUTH DAILY 12/29/2017 06/26/2018 Inactive Tamiflu 75 mg capsule RxNorm: 433204 1 Capsule(s) PO BID 12/27/2017 12/31/2017 Inactive Tamiflu 75 mg capsule RxNorm: 187635 1 Capsule(s) PO BID 12/27/2017 12/26/2017 Inactive tizanidine 4 mg tablet RxNorm: 083283 1 Tablet(s) PO TID as needed 12/25/2017 01/01/2018 Inactive levothyroxine 175 mc g tablet RxNorm: 566230 1 Tablet(s) PO daily 12/14/2017 12/13/2017 Inactive levothyroxine 175 mc g tablet RxNorm: 821820 1 Tablet(s) PO daily 12/14/2017 01/17/2018 Inactive baclofen 10 mg tablet RxNorm: 823300 Tablet(s) TAKE ONE TABLET BY MOUTH THREE TIMES A DAY NEEDED 12/13/2017 01/11/2018 Inactive baclofen 10 mg tablet RxNorm: 751093 TAKE ONE TABLET BY MOUTH THREE TIMES A D AY NEEDED 12/13/2017 12/12/2017 Inactive morphine 30 mg table t, crush resistant, extended release RxNorm: 0758219 1 Tablet(s) PO BID 12/12/2017 01/14/2018 Inactive clonazepam 1 mg tablet RxNorm: 913752 1/2 Tablet(s) PO daily 12/01/2017 08/27/2018 Inactive trazodone 50 mg tablet RxNorm: 591385 1/2 to 1 Tablet(s) QHS as needed 12/01/2017 03/30/2018 In active Opana ER 15 mg table t, crush resistant, extended release RxNorm: 110830 1 Tablet(s) PO Q12H 12/01/2017 02/13/2018 Inactive oxymorphone 5 mg tablet RxNorm: 300545 1 Tablet(s) PO Q6 PRN 12/01/2017 02/26/2018 Inactive Remeron 15 mg tablet RxNorm: 749300 Tablet(s) TAKE ONE TABLET BY MOUTH EVERY NIGHT AT BEDTIME 12/01/2017 02/28/2018 Inactive trazodone 50 mg tablet RxNorm: 949502 1/2 Tablet(s) as needed 1 Tablet(s) PO Q HS 12/01/2017 11/30/2017 In active clonazepam 1 mg tablet RxNorm: 160111 1/2 Tablet(s) PO daily 11/30/2017 11/30/2017 Inactive Remeron 15 mg tablet RxNorm: 056003 TAKE ONE TABLET BY MOUTH EVERY NIGHT AT BEDTIME 11/29/2017 11/30/2017 Inactive levothyroxine 200 mc g tablet RxNorm: 954028 TAKE ONE TABLET BY [facility] DAILY 11/15/2017 12/13/2017 In active baclofen 10 mg tablet RxNorm: 544188 TAKE ONE TABLET BY MOUTH THREE TIMES A D AY NEEDED 11/07/2017 12/06/2017 Inactive diclofenac sodium 75 mg tablet,delayed release RxNorm: 822917 1 Tablet(s) PO BID 11/07/2017 05/05/2018 In active liothyronine 5 mcg t ablet RxNorm: 518339 TAKE ONE TABLET BY [facility] DAILY 10/27/2017 07/18/2018 In active tizanidine 4 mg tablet RxNorm: 479889 1 Tablet(s) PO TID as needed 10/18/2017 12/16/2017 Inactive oxymorphone 5 mg tablet RxNorm: 293337 1 Tablet(s) PO Q6 PRN 09/29/2017 11/27/2017 Inactive morphine 30 mg table t, crush resistant, extended release RxNorm: 3837852 1 Tablet(s) PO BID 09/29/2017 11/28/2017 Inactive baclofen 10 mg tablet RxNorm: 987954 1 Tablet(s) PO TID as needed 09/11/2017 10/10/2017 Inactive baclofen 10 mg tablet RxNorm: 132571 1 Tablet(s) PO TID as needed 08/11/2017 09/09/2017 Inactive Opana ER 15 mg table t, crush resistant, extended release RxNorm: 263680 1 Tablet(s) PO Q12H 08/11/2017 09/28/2017 Inactive Remeron 15 mg tablet RxNorm: 042297 TAKE ONE TABLET BY MOUTH EVERY NIGHT AT BEDTIME 08/02/2017 10/30/2017 Inactive oxymorphone 5 mg tablet RxNorm: 818002 1 Tablet(s) PO Q6 PRN 08/02/2017 09/28/2017 Inactive Opana ER 5 mg tablet , crush resistant, extended release RxNorm: 014086 1 Tablet(s) PO Q6 PRN 08/01/2017 08/10/2017 Inactive Protonix 40 mg table t,delayed release RxNorm: 878485 TAKE ONE TABLET BY [facility] DAILY 06/26/2017 10/23/2017 In active Protonix 40 mg table t,delayed release RxNorm: 362162 TAKE ONE TABLET BY [facility] DAILY 06/26/2017 06/25/2017 In active bupropion HCl XL 300 mg 24 hr tablet, extended release RxNorm: 336873 TAKE ONE TABLET BY MOUTH DAILY 06/13/2017 12/09/2017 Inactive tizanidine 4 mg tablet RxNorm: 658280 1 Tablet(s) PO TID as needed 06/13/2017 06/12/2017 Inactive tizanidine 4 mg tablet RxNorm: 241599 1 Tablet(s) PO TID as needed 06/13/2017 09/10/2017 Inactive baclofen 10 mg tablet RxNorm: 706431 1 Tablet(s) PO TID as needed 06/13/2017 07/12/2017 Inactive Opana ER 15 mg table t, crush resistant, extended release RxNorm: 554065 1 Tablet(s) PO Q12H 06/09/2017 08/07/2017 Inactive Opana ER 5 mg tablet , crush resistant, extended release RxNorm: 302849 1 Tablet(s) PO Q6 PRN 06/09/2017 07/31/2017 Inactive diclofenac sodium 75 mg tablet,delayed release RxNorm: 684743 1 Tablet(s) PO BID 06/09/2017 09/06/2017 In active clonazepam 1 mg tablet RxNorm: 378499 1/2 Tablet(s) PO daily 05/24/2017 11/18/2017 Inactive bupropion HCl XL 300 mg 24 hr tablet, extended release RxNorm: 021033 TAKE ONE TABLET BY MOUTH DAILY 03/16/2017 06/12/2017 Inactive clonazepam 1 mg tablet RxNorm: 819819 1/2 Tablet(s) PO daily 02/22/2017 05/18/2017 Inactive Remeron 15 mg tablet RxNorm: 334693 TAKE ONE TABLET BY MOUTH EVERY NIGHT AT BEDTIME 02/06/2017 2017 Inactive Protonix 40 mg table t,delayed release RxNorm: 554035 TAKE ONE TABLET BY MO [facility] DAILY 01/26/2017 06/24/2017 In active mupirocin 2 % topica l ointment RxNorm: 514908 1 Application TOP BID 01/12/2017 01/18/2017 Inactive Bactrim DS 800 mg-16 0 mg tablet RxNorm: 911678 1 Tablet(s) PO BID 11/17/2016 11/23/2016 Inactive mupirocin 2 % topica l ointment RxNorm: 363290 1 Application TOP BID 11/10/2016 11/16/2016 Inactive Bactrim DS 800 mg-16 0 mg tablet RxNorm: 819162 1 Tablet(s) PO BID 11/10/2016 11/16/2016 Inactive bupropion HCl XL 300 mg 24 hr tablet, extended release RxNorm: 573796 TAKE ONE TABLET BY MOUTH DAILY 11/07/2016 03/06/2017 Inactive liothyronine 5 mcg t ablet RxNorm: 587458 1 Tablet(s) PO daily 11/01/2016 10/26/2017 Inactive levothyroxine 200 mc g tablet RxNorm: 671238 1 Tablet(s) PO daily 10/04/2016 09/28/2017 Inactive clonazepam 1 mg tablet RxNorm: 473210 1/2 Tablet(s) PO daily 09/21/2016 03/18/2017 Inactive clonazepam 1 mg tablet RxNorm: 663452 1/2 Tablet(s) PO daily 09/16/2016 09/20/2016 Inactive Abilify 2 mg tablet RxNorm: 936894 1 Tablet(s) PO daily 09/16/2016 10/13/2016 Inactive trazodone 50 mg tablet RxNorm: 236172 1/2 Tablet(s) as needed 1 Tablet(s) PO Q HS 09/16/2016 01/13/2017 In active morphine 15 mg immed iate release tablet RxNorm: 401797 1 Tablet(s) PO Q6 PRN 09/16/2016 04/06/2017 In active baclofen 10 mg tablet RxNorm: 920855 1 Tablet(s) PO TID as needed 09/16/2016 06/12/2017 Inactive MS Contin 30 mg tabl et,extended release RxNorm: 483678 1 Tablet(s) PO Q12H 09/16/2016 04/06/2017 In active Remeron 15 mg tablet RxNorm: 380853 1 Tablet(s) PO QHS 08/19/2016 09/15/2016 Inactive levothyroxine 200 mc g tablet RxNorm: 897975 1 Tablet(s) PO daily 08/11/2016 10/03/2016 Inactive bupropion HCl XL 300 mg 24 hr tablet, extended release RxNorm: 018733 TAKE ONE TABLET BY MOUTH DAILY 08/11/2016 11/06/2016 Inactive Protonix 40 mg table t,delayed release RxNorm: 002270 1 Tablet(s) PO daily 06/17/2016 12/13/2016 In active bupropion HCl XL 300 mg 24 hr tablet, extended release RxNorm: 271843 1 Tablet(s) PO daily 05/12/2016 07/10/2016 Inactive bupropion HCl XL 300 mg 24 hr tablet, extended release RxNorm: 698356 1 Tablet(s) PO daily 05/12/2016 05/11/2016 Inactive Cialis 20 mg tablet RxNorm: 521288 1 Tablet(s) PO PRN 02/16/2016 No Stop Date Active not more than 1 tab in 24 hours morphine ER 10 mg ca psule,extended release pellets RxNorm: 985644 1 Tablet(s) PO Q6 as needed 02/16/2016 11/16/2016 Inactive clonazepam 1 mg tablet RxNorm: 753288 1/2 Tablet(s) PO BID 02/16/2016 09/15/2016 Inactive trazodone 50 mg tablet RxNorm: 086201 1/2 Tablet(s) as needed 1 Tablet(s) PO Q HS 02/16/2016 08/18/2016 In active trazodone 50 mg tablet RxNorm: 116486 1/2 Tablet(s) 1 Tablet(s) PO QHS 11/17/2015 02/15/2016 In active trazodone 50 mg tablet RxNorm: 262741 1 Tablet(s) PO QHS 10/19/2015 11/16/2015 Inactive levothyroxine 200 mc g tablet RxNorm: 623259 1 Tablet(s) PO daily 10/02/2015 08/10/2016 Inactive Wellbutrin XL 150 mg 24 hr tablet, extended release RxNorm: 133886 1 Tablet(s) PO daily 10/02/2015 05/11/2016 Inactive levothyroxine 200 mc g tablet RxNorm: 285743 1 Tablet(s) PO daily 09/30/2015 10/01/2015 Inactive Wellbutrin XL 150 mg 24 hr tablet, extended release RxNorm: 412107 1 Tablet(s) PO daily 09/30/2015 10/01/2015 Inactive trazodone 50 mg tablet RxNorm: 033439 1 Tablet(s) PO QHS 09/11/2015 10/10/2015 Inactive trazodone 50 mg tablet RxNorm: 838917 1 Tablet(s) PO QHS 09/11/2015 09/10/2015 Inactive Cymbalta 30 mg capsu le,delayed release RxNorm: 557041 1 Capsule(s) PO daily 09/07/2015 11/16/2015 In active Cymbalta 60 mg capsu le,delayed release RxNorm: 133013 1 Capsule(s) PO daily 08/31/2015 08/30/2015 In active Cymbalta 30 mg capsu le,delayed release RxNorm: 497453 1 Capsule(s) PO daily take with 60mg to make 90 mg daily 08/31/2015 09/06/2015 Inactive Cymbalta 30 mg capsu le,delayed release RxNorm: 894004 1 Capsule(s) PO daily take with 60mg to make 90 mg daily 08/31/2015 08/30/2015 Inactive Cymbalta 60 mg capsu le,delayed release RxNorm: 206078 1 Capsule(s) PO daily x 7 days and then increase to 90mg daily 08/31/2015 09/07/2015 Inactive levothyroxine 200 mc g tablet RxNorm: 420743 1 Tablet(s) PO daily 08/14/2015 09/29/2015 Inactive Wellbutrin XL 150 mg 24 hr tablet, extended release RxNorm: 686535 1 Tablet(s) PO daily 07/14/2015 09/29/2015 Inactive Cialis 20 mg tablet RxNorm: 711842 1 Tablet(s) PO PRN 07/02/2015 02/15/2016 Inactive not more than 1 tab in 24 hours liothyronine 5 mcg t ablet RxNorm: 837899 1 Tablet(s) PO daily 2015 05/29/2016 Inactive clonazepam 1 mg tablet RxNorm: 669741 1 Tablet(s) PO TID 2015 02/15/2016 Inactive minocycline 50 mg ta blet RxNorm: 774405 1 Tablet(s) PO daily 2015 05/11/2016 Inactive Wellbutrin XL 150 mg 24 hr tablet, extended release RxNorm: 770271 1 Tablet(s) PO daily 04/23/2015 07/13/2015 Inactive levothyroxine 200 mc g tablet RxNorm: 274762 1 Tablet(s) PO daily 04/23/2015 08/13/2015 Inactive Aleve oral RxNorm: 728967 oral No Start Date Active Tylenol 500 mg RxNorm: oral No Start Date Active morphine ER 15 mg ta blet,extended release RxNorm: 842964 oral No Start Date 11/16/2016 Inactive Trazadone 25 mg RxNorm: 2 PO daily No Start Date 09/11/2015 Inactive diclofenac oral RxNorm: 3355 oral No Start Date 05/04/2018 Inactive clonazepam 1 mg tablet RxNorm: 933612 1 Tablet(s) PO QHS No Start Date 06/04/2015 Inactive Wellbutrin XL 150 mg 24 hr tablet, extended release RxNorm: 491628 1 Tablet(s) PO daily No Start Date 04/22/2015 Inactive minocycline 50 mg ta blet RxNorm: 253126 1 Tablet(s) PO daily No Start Date 06/04/2015 Inactive methadone 5 mg tablet RxNorm: 844171 1 Tablet(s) PO Q8 No Start Date 02/15/2016 Inactive Protonix 40 mg table t,delayed release RxNorm: 729049 Tablet(s) PO daily No Start Date 06/16/2016 Inactive Opana ER 15 mg table t, crush resistant, extended release RxNorm: 035740 1 Tablet(s) PO Q12H No Start Date 06/08/2017 Inactive MS Contin 30 mg tabl et,extended release RxNorm: 946163 1 Tablet(s) PO Q12H No Start Date 02/15/2016 Inactive Opana ER 15 mg table t, crush resistant, extended release RxNorm: 321630 1 Tablet(s) PO BID No Start Date 09/15/2016 Inactive liothyronine 5 mcg t ablet RxNorm: 025189 1 Tablet(s) PO daily No Start Date 06/04/2015 Inactive Cialis 20 mg tablet RxNorm: 321696 1 Tablet(s) PO PRN No Start Date 07/01/2015 Inactive not more than 1 tab in 24 hours baclofen 10 mg tablet RxNorm: 709696 1 Tablet(s) PO TID as needed No Start Date 05/11/2016 Inactive morphine 15 mg immed iate release tablet RxNorm: 004266 1 Tablet(s) PO Q6 PRN as needed No Start Date 02/15/2016 Inactive levothyroxine 200 mc g tablet RxNorm: 782936 1 Tablet(s) PO daily No Start Date 04/22/2015 Inactive Opana ER 5 mg tablet , crush resistant, extended release RxNorm: 775645 1 Tablet(s) PO Q6 No Start Date [...] Code Result Date Vitamin D 25 Oh [id number] VITAMIN D, 25 HYDROXY 30.96 ng/mL 07/06/2018 Comp Metabolic Nns880 NA 141 mEq/L 07/06/2018 Comp Metabolic Jbs861 K 4.2 mEq/L 07/06/2018 Comp Metabolic Qsm978 CL 103 mEq/L 07/06/2018 Comp Metabolic Fvg274 CO2 29.0 mEq/L 07/06/2018 Comp Metabolic Idm736 AN ION GAP 13 07/06/2018 Comp Metabolic Ojz939 GL UCOSE 105 mg/dL 07/06/2018 Comp Metabolic Ydf561 Cr eat 0.8 mg/dL 07/06/2018 Comp Metabolic Nno339 eG FR 101 ml/min/1.73m2 06/27 Comp Metabolic Ckf895 BUN 7 mg/dL 07/06/2018 Comp Metabolic Twl641 B/ C Ratio 8.3 Ratio 07/06/2018 Comp Metabolic Ubs328 CA LCIUM 9.9 mg/dL 07/06/2018 Comp Metabolic Pjh156 AL K PHOS 65 U/L 07/06/2018 Comp Metabolic Yka733 T(SGOT) 21 U/L 07/06/2018 Comp Metabolic Nwq867 AL T(SGPT) 31 U/L 07/06/2018 Comp Metabolic Cdu756 BI LI T 0.3 mg/dL 07/06/2018 Comp Metabolic Ehx822 AL BUMIN 4.3 g/dL 07/06/2018 Comp Metabolic Orb565 TP RO 6.4 g/dL 07/06/2018 Comp Metabolic Kul460 GL OB 2.1 g/dL 07/06/2018 Comp Metabolic Nlz594 A/ G Ratio 2.0 Ratio 07/06/2018 Comp Metabolic Cwr356 Os mo 280 mOsmo 07/06/2018 Cbc With [...] 39.5 % 07/06/2018 Cbc With Differential Ord2 [place]% 10.5 % 07/06/2018 Cbc With Differential Ord2 MCH 29.3 pg 07/06/2018 Cbc With Differential Ord2 Eos% [...] 1.89 K/ul 07/06/2018 Cbc With Differential Ord2 [place] ABS# 0.5 K/ul 07/06/2018 Cbc With Differential Ord2 Eos ABS# 0.3 K/ul 07/06/2018 Cbc With Differential Ord2 Baso ABS# 0.0 K/ul 07/06/2018 Total Psa Ord10 PSA 0.34 ng/mL 07/06/2018 Tsh Ord6 TSH (3rd IS) 0.02 uIU/mL 07/06/2018 Testosterone Gkh381 Testo 400.6 ng/dL 07/06/2018 Free T4 Ujf875 FREE T4 1.48 ng/dL 07/06/2018 [place] Spotted Fever Igg/Igm 32181 3 [place]TH[place] SPOTTED FEVER IGM EIA . 04/04/2018 [place] Spotted Fever Igg/Igm 92187 3 RMSF, IGM 0.24 index 04/04/2018 [place] Spotted Fever Igg/Igm 77735 3 PARTHA MT SPOTTED FEVER IGG EIA FLEX . 04/04/2018 [place] Spotted Fever Igg/Igm 21695 3 RMSF, IGG SCREEN-FLEX Equivocal 04/04/2018 Par[place] Mtn Spot'D Fev Igg 148379 RMSF, IGG- TITER IFA <1:64 04/04/2018 Ehrlichia Chaffeensis Antibody Igg [id number] EHRLICHIA CHAFFEENSIS IGG <1:64 04/02/2018 Ehrlichia Chaffeensis Antibody Igm 659379 EHRLICHIA CHAFFEENSIS IGM < 1:16 04/02/2018 Lymes Disease Total Antibodies With Western Blot Refle x [id number] B. BURGDORFERI, IGG/IGM 0.23 03/30/2018 Lymes Disease Total Antibodies With Western Blot Refle x [id number] 03/30/2018 Cbc With Differential Ord2 WBC 5.04 [...] 28.7 pg 03/28/2018 Cbc With Differential Ord2 [place]% 16.1 % 03/28/2018 Cbc With Differential Ord2 [...] 1.37 K/ul 03/28/2018 Cbc With Differential Ord2 [place] ABS# 0.8 K/ul 03/28/2018 Cbc With Differential Ord2 Eos ABS# 0.1 K/ul 03/28/2018 Cbc With Differential Ord2 Baso ABS# 0.0 K/ul 03/28/2018 Comp Metabolic Bny203 NA 136 mEq/L 02/16/2018 Comp Metabolic Ghi827 K 3.9 mEq/L 02/16/2018 Comp Metabolic Bbo131 CL 103 mEq/L 02/16/2018 Comp Metabolic Nui785 CO2 23.0 mEq/L 02/16/2018 Comp Metabolic Xlo095 AN ION GAP 14 02/16/2018 Comp Metabolic Dmd856 GL UCOSE 133 mg/dL 02/16/2018 Comp Metabolic Sru886 Cr eat 0.8 mg/dL 02/16/2018 Comp Metabolic Jfv701 eG FR 103 ml/min/1.73m2 01/26 Comp Metabolic Phz943 BUN 7 mg/dL 02/16/2018 Comp Metabolic Scq841 B/ C Ratio 8.4 Ratio 02/16/2018 Comp Metabolic Lga470 CA LCIUM 9.3 mg/dL 02/16/2018 Comp Metabolic Utr020 AL K PHOS 71 U/L 02/16/2018 Comp Metabolic Dnf008 T(SGOT) 42 U/L 02/16/2018 Comp Metabolic Oda560 AL T(SGPT) 69 U/L 02/16/2018 Comp Metabolic Uce265 BI LI T 0.3 mg/dL 02/16/2018 Comp Metabolic Wtx131 AL BUMIN 4.1 g/dL 02/16/2018 Comp Metabolic Oeg886 TP RO 6.3 g/dL 02/16/2018 Comp Metabolic Jny650 GL OB 2.2 g/dL 02/16/2018 Comp Metabolic Bjv593 A/ G Ratio 1.8 Ratio 02/16/2018 Comp Metabolic Olu399 Os mo 272 mOsmo 02/16/2018 Free T4 Exp946 FREE T4 1.85 ng/dL 02/16/2018 Ferritin Ord22 FERRITIN 161.7 ng/mL 02/16/2018 Tsh Ord6 TSH (3rd IS) 0.01 uIU/mL 02/16/2018 Test(s) Not Perfromed [id number] Test(s) Not Performed Test(s) Not Performed. See Below: 02/16/2018 Test(s) Not Perfromed [id number] TEST NAME CBC 02/16/2018 Test(s) Not Perfromed [id number] Rejection Reason No Suitable Specimen Receive d 02/16/2018 Test(s) Not Perfromed [id number] COMMENT Please Recollect Sample 02/16/2018 Test(s) Not Perfromed [id number] Roll Reclaimer Fernando Goyal 02/16/2018 Tibc Ord40 Iron 138 [...] 81.8 fl 01/05/2018 Cbc With Differential Ord2 MCH 26.4 pg 01/05/2018 Cbc With Differential Ord2 [place]% 11.9 % 01/05/2018 Cbc With Differential Ord2 Eos% 3.4 % 01/05/2018 Cbc With Differential Ord2 MCHC 32.2 pg 01/05/2018 Cbc With Differential Ord2 Baso% 0.8 % 01/05/2018 Cbc With Differential Ord2 PLT 342 K/ul 01/05/2018 Cbc With Differential Ord2 RDW 17.0 % 01/05/2018 Cbc With Differential Ord2 Neut ABS# 2.14 K/ul 01/05/2018 Cbc With Differential Ord2 Lymph ABS# 2.08 K/ul 01/05/2018 Cbc With Differential Ord2 [place] ABS# 0.6 K/ul 01/05/2018 Cbc With Differential Ord2 Eos ABS# 0.2 K/ul 01/05/2018 Cbc With Differential Ord2 Baso ABS# 0.0 K/ul 01/05/2018 Ferritin Ord22 FERRITIN 5.7 ng/mL 12/06/2017 Tibc Ord40 Iron 33 ug/dl 12/06/2017 Tibc Ord40 UIBC 431 ug/dL 12/06/2017 Tibc Ord40 TIBC 464 ug/dL 12/06/2017 Tibc Ord40 Fe-%Sat 7.1 % 12/06/2017 Free T4 Wct719 FREE T4 1.82 ng/dL 12/01/2017 Tsh Ord6 [...] 27.0 pg 12/01/2017 Cbc With Differential Ord2 [place]% 10.6 % 12/01/2017 Cbc With Differential Ord2 MCHC 32.4 pg 12/01/2017 Cbc With Differential Ord2 Eos% 4.1 % 12/01/2017 Cbc With Differential Ord2 Baso% 1.0 % 12/01/2017 Cbc With Differential Ord2 PLT 345 K/ul 12/01/2017 Cbc With Differential Ord2 RDW 15.3 % 12/01/2017 Cbc With Differential Ord2 Neut ABS# 1.58 K/ul 12/01/2017 Cbc With Differential Ord2 Lymph ABS# 1.92 K/ul 12/01/2017 Cbc With Differential Ord2 [place] ABS# 0.4 K/ul 12/01/2017 Cbc With Differential Ord2 Eos ABS# 0.2 K/ul 12/01/2017 Cbc With Differential Ord2 Baso ABS# 0.0 K/ul 12/01/2017 Comp Metabolic Vbj597 NA 136 mEq/L 12/01/2017 Comp Metabolic Fff934 K 4.6 mEq/L 12/01/2017 Comp Metabolic Sec118 CL 102 mEq/L 12/01/2017 Comp Metabolic Xku696 CO2 27.0 mEq/L 12/01/2017 Comp Metabolic Ovq549 AN ION GAP 12 12/01/2017 Comp Metabolic Gpk906 GL UCOSE 90 mg/dL 12/01/2017 Comp Metabolic Hkn703 Cr eat 0.7 mg/dL 12/01/2017 Comp Metabolic Kel937 eG FR 123 ml/min/1.73m2 03/2018 Comp Metabolic Nyj628 BUN 4 mg/dL 12/01/2017 Comp Metabolic Pbe476 B/ C Ratio 5.6 Ratio 12/01/2017 Comp Metabolic Orr320 CA LCIUM 9.0 mg/dL 12/01/2017 Comp Metabolic Yol199 AL K PHOS 67 U/L 12/01/2017 Comp Metabolic Hnk317 T(SGOT) 30 U/L 12/01/2017 Comp Metabolic Scw760 AL T(SGPT) 29 U/L 12/01/2017 Comp Metabolic Jkf954 BI LI T 0.3 mg/dL 12/01/2017 Comp Metabolic Vjc755 AL BUMIN 4.1 g/dL 12/01/2017 Comp Metabolic Udc501 TP RO 6.1 g/dL 12/01/2017 Comp Metabolic Twn702 GL OB 2.0 g/dL 12/01/2017 Comp Metabolic Igf874 A/ G Ratio 2.0 Ratio 12/01/2017 Comp Metabolic Tde145 Os mo 268 mOsmo 12/01/2017 Comp Metabolic Zmg985 NA 136 mEq/L 02/16/2016 Comp Metabolic Hqb928 K 4.2 mEq/L 02/16/2016 Comp Metabolic Ugj679 CL 104 mEq/L 02/16/2016 Comp Metabolic Wvn774 CO2 20.0 mEq/L 02/16/2016 Comp Metabolic Qib531 AN ION GAP 16 02/16/2016 Comp Metabolic Lra542 GL UCOSE 71 mg/dL 02/16/2016 Comp Metabolic Rqp608 Cr eat 0.8 mg/dL 02/16/2016 Comp Metabolic Snw442 eG FR 113 ml/min/1.73m2 01/26 Comp Metabolic Ilx371 BUN 7 mg/dL 02/16/2016 Comp Metabolic Cxr277 B/ C Ratio 9.1 Ratio 02/16/2016 Comp Metabolic Hou946 CA LCIUM 9.4 mg/dL 02/16/2016 Comp Metabolic Qvh395 AL K PHOS 57 U/L 02/16/2016 Comp Metabolic Lkd120 T(SGOT) 30 U/L 02/16/2016 Comp Metabolic Evf924 AL T(SGPT) 27 U/L 02/16/2016 Comp Metabolic Oad126 BI LI T 0.2 mg/dL 02/16/2016 Comp Metabolic Hmv435 AL BUMIN 4.4 g/dL 02/16/2016 Comp Metabolic Lny090 TP RO 6.5 g/dL 02/16/2016 Comp Metabolic Lnt210 GL OB 2.1 g/dL 02/16/2016 Comp Metabolic Zyp580 A/ G Ratio 2.1 Ratio 02/16/2016 Comp Metabolic Xxj525 Os mo 268 mOsmo 02/16/2016 Free T4 Vwv021 FREE T4 1.20 ng/dL 02/16/2016 Cbc With [...] 90.6 fl 02/16/2016 Cbc With Differential Ord2 [place]% 9.6 % 02/16/2016 Cbc With Differential Ord2 [...] 1.50 K/ul 02/16/2016 Cbc With Differential Ord2 [place] ABS# 0.5 K/ul 02/16/2016 Cbc With Differential [...] Respiratory dyspnea on exertion 09/03/2018 Respiratory snoring 100 06/2018 Gastrointestinal No constipation 09/03/2018 Gastrointestinal No [...] Respiratory dyspnea on exertion 07/05/2018 Respiratory snoring 080 07/2018 Gastrointestinal No constipation 07/05/2018 Gastrointestinal No [...] 02/27/2018 Respiratory daytime hypersomnolence 02/27/2018 Respiratory snoring 01/2018 Constitutional No recent illness 12/01/2017 Constitutional [...] Neurologic No headache 0 05/28/2015 Psychiatric anxiety 070 12/2014 Psychiatric depression 0 05/28/2015 Hematologic/Lymphatic No [...] rate 07/05/2018 None Full Exam - General 1995 Cardiovascular auscultation of heart Overall: normal heart sounds 07/05/2018 None Full Exam - General 1994 Cardiovascular auscultation of heart Overall: no murmurs 07/05/2018 None Full Exam - General 1994 Musculoskeletal gait and station Gait: asymmetric 07/05/2018 None Full Exam - General 1995 Neurologic mental status Overall: alert 07/05/2018 None [...] 1: 92/66 Code: 8480-6 BMI: 37.9 Code: 61459-6 Heart Rate 1: 66 bpm Height: 5'6" SpO2: 98% Weight: 235 lbs 09/17/2018 Blood Pressure 1: 11072 Code: 8480-6 BMI: 38.3 Code: 23549-4 Heart Rate 1: 77 bpm Height: 5'6" SpO2: 95% Waist Measure (cm): 102 cm Weight: 237 lbs 09/03/2018 Blood Pressure 1: 122/68 Code: 8480-6 BMI: 37.6 Code: 86860-1 Heart Rate 1: 78 bpm Height: 5'6" SpO2: 97% Weight: 233 lbs 07/05/2018 Blood Pressure 1: 94/62 Code: 8480-6 BMI: 36.8 Code: 69998-2 Heart Rate 1: 88 bpm Height: 5'6" SpO2: 99% Weight: 228 lbs 05/04/2018 Blood Pressure 1: 110/80 Code: 8480-6 BMI: 35.5 Code: 96649-3 Heart Rate 1: 80 bpm Height: 5'6" SpO2: 99% Weight: 220 lbs 03/28/2018 Blood Pressure 1: 110/72 Code: 8480-6 BMI: 35.0 Code: 86855-9 Heart Rate 1: 80 bpm Height: 5'6" SpO2: 98% Temperature: 36.2 (C ) / 97.1 (F) Weight: 217 lbs 02/27/2018 Blood Pressure 1: 136/76 Code: 8480-6 BMI: 36.0 Code: 63835-8 Heart Rate 1: 80 bpm Height: 5'6" SpO2: 98% Weight: 223 lbs 12/01/2017 Blood Pressure 1: 132/72 Code: 8480-6 BMI: 33.4 Code: 55751-5 Heart Rate 1: 82 bpm Height: 5'6" SpO2: 97% Weight: 207 lbs 09/29/2017 Blood Pressure 1: 124/68 Code: 8480-6 BMI: 32.1 Code: 84635-0 Heart Rate 1: 77 bpm Height: 5'6" SpO2: 98% Weight: 199 lbs 08/11/2017 Blood Pressure 1: 154/82 Code: 8480-6 BMI: 31.6 Code: 36700-0 Heart Rate 1: 75 bpm Height: 5'6" SpO2: 98% Weight: 196 lbs 06/09/2017 Blood Pressure 1: 148/88 Code: 8480-6 BMI: 28.6 Code: 93846-4 Heart Rate 1: 88 bpm Height: 5'6" SpO2: 98% Weight: 177 lbs 04/07/2017 Blood Pressure 1: 140/84 Code: 8480-6 BMI: 30.3 Code: 75976-6 Heart Rate 1: 81 bpm Height: 5'6" SpO2: 99% Weight: 188 lbs 11/17/2016 Blood Pressure 1: 130/72 Code: 8480-6 Heart Rate 1: 63 bpm Height: SpO2: 93% Weight: 11/10/2016 Blood Pressure 1: 128/86 Code: 8480-6 BMI: 30.3 Code: 29418-6 Heart Rate 1: 84 bpm Height: 5'6" SpO2: 96% Weight: 188 lbs 10/14/2016 Heigh t: 5'6" 09/16/2016 Blood Pressure 1: 130/80 Code: 8480-6 BMI: 30.3 Code: 33808-4 Heart Rate 1: 67 bpm Height: 5'6" SpO2: 99% Weight: 188 lbs 08/19/2016 Blood Pressure 1: 110/62 Code: 8480-6 BMI: 29.9 Code: 79627-2 Heart Rate 1: 70 bpm Height: 5'6" SpO2: 97% Weight: 185 lbs 06/17/2016 Blood Pressure 1: 112/68 Code: 8480-6 BMI: 27.6 Code: 72424-1 Heart Rate 1: 61 bpm Height: 5'6" SpO2: 98% Weight: 171 lbs 05/12/2016 Blood Pressure 1: 130/76 Code: 8480-6 BMI: 29.7 Code: 08902-0 Heart Rate 1: 103 bpm Height: 5'6" SpO2: 98% Weight: 184 lbs 02/16/2016 Blood Pressure 1: 140/82 Code: 8480-6 BMI: 28.7 Code: 43800-9 Heart Rate 1: 66 bpm Height: 5'6" SpO2: 99% Weight: 178 lbs 11/17/2015 Blood Pressure 1: 120/74 Code: 8480-6 BMI: 29.4 Code: 08462-2 Heart Rate 1: 90 bpm Height: 5'6" SpO2: 94% Weight: 182 lbs 08/28/2015 Blood Pressure 1: 128/76 Code: 8480-6 BMI: 27.9 Code: 98648-8 Heart Rate 1: 80 bpm Height: 5'6" SpO2: 98% Weight: 173 lbs 05/28/2015 Blood Pressure 1: 122/70 Code: 8480-6 BMI: 27.0 Code: 41426-0 Heart Rate 1: 74 bpm Height: 5'6" SpO2: 98% Weight: 167 lbs 04/23/2015 Blood Pressure 1: 110/60 Code: 8480-6 BMI: 27.0 Code: 63614-0 Heart Rate 1: 68 bpm Height: 5'6" [...] and Resolution ongoing 09/03/2018 None hypothyroid Quality k [employer] fe 09/03/2018 None hypothyroid Onset and Resolution [...] fatigue Quality constant 07/05/2018 None hypothyroid Quality k [employer] principal fe 07/05/2018 None hypothyroid Onset and Resolution [...] Findings weight loss 03/28/2018 None hypothyroid Quality k [employer] fe 02/27/2018 None hypothyroid Onset and Resolution [...] Encounters Encounter Performer Loca tion Codes Date ([id number]) 52716 EST. P ATIENT, LEVEL IV Diagnosis: Chronic pain syndrome[ICD10: G89.4] Diagnosis: Hypothyroidism, unspecified[ICD10: E03.9] Diagnosis: Other fatigue[ICD10: R53.83] Diagnosis: Other obesity due to excess calories[ICD10: E66.09] Diagnosis: Major depressive disorder, recurrent, moderate[ICD10: F33.1] Leydi Jacobo MD, [facility] CPT-4: 69018 09/27/2018 ([id number]) 62644 EST. P ATIENT, LEVEL III Diagnosis: Chronic pain syndrome[ICD10: G89.4] Leydi Jacobo MD, [facility] CPT-4: 76810 09/03/2018 ([id number]) 94559 EST. P ATIENT, LEVEL IV Diagnosis: Hypothyroidism, unspecified[ICD10: E03.9] Diagnosis: Major depressive disorder, recurrent, moderate[ICD10: F33.1] Diagnosis: Chronic pain syndrome[ICD10: G89.4] Diagnosis: Other male erectile dysfunction[ICD10: N52.8] Diagnosis: Other fatigue[ICD10: R53.83] Diagnosis: Encounter for screening for malignant neoplasm of prostate[ICD10: Z12.5] Leydi Jacobo MD, [facility] CPT-4: 68669 07/05/2018 ([id number]) 59094 EST. P ATIENT, LEVEL IV Diagnosis: Chronic pain syndrome[ICD10: G89.4] Diagnosis: Hypothyroidism, unspecified[ICD10: E03.9] Diagnosis: Major depressive disorder, recurrent, moderate[ICD10: F33.1] Leydi Jacobo MD, [facility] CPT-4: 50892 05/04/2018 [id number] EST. PATIENT, LEVEL IV Diagnosis: Melena[ICD10: K92.1] Diagnosis: Other malaise[ICD10: R53.81] Diagnosis: Other fatigue[ICD10: R53.83] Diagnosis: Pain in unspecified joint[ICD10: M25.50] Diagnosis: Diarrhea, unspecified[ICD10: R19.7] Denae Jacobo MD, [facility] CPT-4: 13610 03/28/2018 ([id number]) 72005 EST. [facility] Diagnosis: Chronic pain syndrome[ICD10: G89.4] Diagnosis: Hypothyroidism, unspecified[ICD10: E03.9] Diagnosis: Other obesity due to excess calories[ICD10: E66.09] Diagnosis: Major depressive disorder, recurrent, moderate[ICD10: F33.1] Diagnosis: Obstructive sleep apnea (adult) (pediatric)[ICD10: G47.33] Leydi Jacobo MD, [facility] CPT-4: 25158 02/27/2018 42469 EST. PATIENT, LEVEL IV Diagnosis: Other specified hypothyroidism[ICD10: E03.8] Diagnosis: Chronic pain syndrome[ICD10: G89.4] Diagnosis: Major depressive disorder, recurrent, moderate[ICD10: F33.1] Denae Jacobo MD, [facility] CPT-4: 99378 12/01/2017 ([id number]) 03271 EST. P ATIENT, LEVEL IV Diagnosis: Chronic pain syndrome[ICD10: G89.4] Diagnosis: Alcohol dependence, uncomplicated[ICD10: F10.20] Diagnosis: Major depressive disorder, recurrent, moderate[ICD10: F33.1] Leydi Jacobo MD, [facility] CPT-4: 96038 09/29/2017 ([id number]) 06837 EST. P ATIENT, LEVEL IV Diagnosis: Chronic pain syndrome[ICD10: G89.4] Diagnosis: Alcohol dependence, uncomplicated[ICD10: F10.20] Diagnosis: Major depressive disorder, recurrent, moderate[ICD10: F33.1] Leydi Jacobo MD, [facility] CPT-4: 03735 08/11/2017 ([id number]) 42061 EST. P ATIENT, LEVEL III Diagnosis: Chronic pain syndrome[ICD10: G89.4] Diagnosis: Major depressive disorder, recurrent, moderate[ICD10: F33.1] Leydi Jacobo MD, [facility] CPT-4: 07394 06/09/2017 ([id number]) 95985 EST. P ATIENT, LEVEL III Diagnosis: Chronic pain syndrome[ICD10: G89.4] Diagnosis: Pain in left knee[ICD10: M25.562] Leydi Jacobo MD, [facility] CPT- 4: 58130 04/07/2017 10052 EST. PATIENT, LEVEL II Diagnosis: Superficial foreign body of left upper arm, initial encounter[ICD10: S40.852A] Diagnosis: Cellulitis of left upper limb[ICD10: L03.114] Leydi Jacobo MD, [facility] CPT-4: 05783 11/17/2016 99456 EST. PATIENT, LEVEL II Diagnosis: Cellulitis of left upper limb[ICD10: L03.114] Leydi Jacobo MD, [facility] CPT-4: 95151 11/10/2016 ([id number]) 07694 EST. P ATIENT, LEVEL III Diagnosis: Chronic pain syndrome[ICD10: G89.4] Diagnosis: Major depressive disorder, recurrent, moderate[ICD10: F33.1] Leydi Jacobo MD, [facility] CPT-4: 94073 10/14/2016 31337 EST. PATIENT, LEVEL IV Diagnosis: Psychophysiologic insomnia[ICD10: F51.04] Diagnosis: Major depressive disorder, recurrent, moderate[ICD10: F33.1] Diagnosis: Alcohol dependence, uncomplicated[ICD10: F10.20] Diagnosis: Chronic pain syndrome[ICD10: G89.4] Leydi Jacobo MD, [facility] CPT-4: 30523 09/16/2016 ([id number]) 54196 EST. P ATIENT, LEVEL III Diagnosis: Pain in left shoulder[ICD10: M25.512] Diagnosis: Major depressive disorder, recurrent, moderate[ICD10: F33.1] Diagnosis: Psychophysiologic insomnia[ICD10: F51.04] Leydi Jacobo MD, [facility] CPT-4: 62237 08/19/2016 ([id number]) 57799 EST. P ATIENT, LEVEL III Diagnosis: Gastro-esophageal reflux disease without esophagitis[ICD10: K21.9] Diagnosis: Hypothyroidism, unspecified[ICD10: E03.9] Leydi Jacobo MD, [facility] CPT-4: 40368 06/17/2016 ([id number]) 33790 EST. P ATIENT, LEVEL IV Diagnosis: Gastro-esophageal reflux disease without esophagitis[ICD10: K21.9] Diagnosis: Hypothyroidism, unspecified[ICD10: E03.9] Diagnosis: Major depressive disorder, recurrent, moderate[ICD10: F33.1] Leydi Jacobo MD, [facility] CPT-4: 79542 05/12/2016 ([id number]) 19181 EST. P ATIENT, LEVEL III Diagnosis: Cervicalgia[ICD10: M54.2] Diagnosis: Hypothyroidism, unspecified[ICD10: E03.9] Diagnosis: Other male erectile dysfunction[ICD10: N52.8] Leydi Jacobo MD, [facility] CPT-4: 81534 02/16/2016 ([id number]) 03641 EST. P ATIENT, LEVEL III Diagnosis: Lumbago with sciatica, unspecified side[ICD10: M54.40] Diagnosis: Other male erectile dysfunction[ICD10: N52.8] Leydi Jacobo MD, [facility] CPT-4: 69551 11/17/2015 ([id number]) 66028 EST. P ATIENT, LEVEL III Diagnosis: Lumbago with sciatica, unspecified side[ICD10: M54.40] Diagnosis: Hypothyroidism, unspecified[ICD10: E03.9] Diagnosis: Other male erectile dysfunction[ICD10: N52.8] Leydi Jacobo MD, [facility] CPT-4: 14150 08/28/2015 ([id number]) 28529 EST. P ATIENT, LEVEL III Diagnosis: Back pain, chronic[ICD9: 724.5] Diagnosis: Depression[ICD9: 311] Diagnosis: Hypothyroid[ICD9: 244.9] Diagnosis: Bilateral calf pain[ICD9: 729.5] Julieta Jacobo MD, [facility] CPT-4: 63525 05/28/2015 ([id number]) OFFICE VISI T, NEW - LEVEL 4 Diagnosis: Back pain, chronic[ICD9: 724.5] Diagnosis: Depression[ICD9: 311] Diagnosis: Hypothyroid[ICD9: 244.9] Julieta Jacobo MD, [facility] CPT-4: 38719 04/23/2015 Plan of Care Planned Activity Notes [...] previous levels of control. 09/27/2018 Appointment: Leydi Hightowerl: [phone] [phone] (15 min) Moderate 09/27/2018 Patient Education: Patient [...] care surrogate. 09/17/2018 Appointment: Leydi Hightower WPtel: [phone] [facility] - Annual Wellness Visit 09/17/2018 Patient Education: Patient Medication Summary Completed 09/17/2018 Visit Plan: Chronic Pain Syndrome - pt has chronic pain - has been maintained on current medications, has not sought out other medications, only uses PRN pain medications as directed, and understands the consequences of over-medication. 09/03/2018 Appointment: Leydi Hightower WPtel: [phone] (30 min) Complex 09/03/2018 Patient Education: [...] exposure. No change in current medications. Fatigue-weight lssw-CW-puboi labs including testosterone level 07/05/2018 Visit Plan: [...] exposure. No change in current medications. Fatigue-weight bgmu-UT-gxbka labs including testosterone level 07/05/2018 Appointment: Leydi Hightower WPtel: [address] [place], [place] [phone] [place] (15 min) Moderate 07/05/2018 Patient Education: [...] BID 05/04/2018 Appointment: [phone] (15 min) Moderate 05/04/2018 Patient Education: [...] stomach pain. 03/28/2018 Appointment: Den[facility] Mart[facility]nez [facility] [phone] [phone] (30 min) Complex 03/28/2018 Appointment: Nurse [...] time. 02/27/2018 Appointment: [phone] [phone] (15 min) Moderate 02/27/2018 Patient Education: [...] control. 12/01/2017 Appointment: [phone] [facility] [place] (30 min) Complex 12/01/2017 Patient Education: Patient [...] outpatient treatment 09/29/2017 Appointment: Leydi Hightower WPtel: [phone] (30 min) Complex 09/29/2017 Patient Education: Patient [...] cons ider 08/11/2017 Appointment: Leydi Hightower WPtel: [phone] (30 min) Complex 08/11/2017 Patient Education: Patient [...] current medications. 06/09/2017 Appointment: Leydi Hightower WPtel: [phone] (30 min) Complex 06/09/2017 Patient Education: Patient [...] completely resolve 11/17/2016 Appointment: Leydi Hightower WPtel: [address] [place], [place] [phone] (30 min) Complex 11/17/2016 Patient Education: Patient [...] in pain. 11/10/2016 Appointment: Leydi Hightower WPtel: [address] [place], [place] [phone] (30 min) Complex 11/10/2016 Patient Education: Patient [...] of plan. 10/14/2016 Appointment: Leydi Hightower WPtel: [phone] (30 min) Complex 10/14/2016 Patient Education: Patient [...] try 09/16/2016 Appointment: Leydi Hightower WPtel: [phone] [phone] (30 min) Complex 09/16/2016 Patient Education: Patient Medication Summary Completed 09/16/2016 Visit Plan: Left shoulder and elbow pain-xray shoulder and elbow Fohzxmmckv-ekpdmdbe-oafhwukbtzjz-d/c trazodone-start remeron at bedtime Pt has been [...] patient. 08/19/2016 Appointment: Leydi Hightower WPtel: [phone] [phone] (30 min) Complex 08/19/2016 Patient Education: Patient [...] Completed 06/17/2016 Appointment: Leydi Hightower WPtel: [phone] [phone] [place] (30 min) Complex 06/09/2016 Visit Plan: [...] of control. 05/12/2016 Appointment: Leydi Hightower WPtel: [address] [place], [place] [phone] [place] (30 min) Complex 05/12/2016 Patient Education: [...] pain- Pain medications are managed by Dr. Peerz. Bilateral Lower Leg Pain- Physical exam negative. Check D-Dimer today in office. 05/28/2015 Appointment: Leydi Hightower WPtel: [address] [place], [place] [phone] (30 min) Complex 05/28/2015 Patient Education: Patient [...] Dynamic Portal ID Completed 04/23/2015 Patient Education: [facility] Saving [facility]j - Levothyroxine - 18-64 - Dynamic Portal ID Completed 04/23/2015 Care Plan: COMPLETE CBC AUTOMATED LOINC : 22462-9 Ordered 04/23/2015 Instructions Comment Repeat labs in 2 mon ths . [...] exposure. No change in current medications. Fatigue-weight ypac-PA-encmu labs including testosterone level . Chronic Pain [...] exposure. No change in current medications. Fatigue-weight kdgn-FJ-lsqee labs including testosterone level Get Immodium over [...] of control. ED-refill cialis for prn use . Chronic Pain [...] and elbow pain-xray shou lder and elbow Uweddtjfru-enesigun-jfvaxgdtevko-d/c trazodone-start remeron at bedtime Pt has been [...] snoring, etc. Patient refuses at this time. Refill baclofen and wellbutrin. Consider increasing wellbutrin [...] gradually- patient states he will try . 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 Chronic Pain Syndrome [...] on previous levels of control. . Chronic pain-manag ed by Dr Perez-no change in treatments ED-samples of cialis for prn use . Hypothyroidism - p t with chronic [...] Perez. . Chronic pain-manag ed by Dr Perez-not [...]
--- OUTSIDE RECORDS SUMMARY | 2020-03-17 15:09 | XMS REPORT | CCD ---
Author Author Thai Castillo Organization Sara Jacobo MD, [facility] Address [address] [place] [address] Phone Care Team Providers Care Director Credit Risk Name Role Phone PP Unavailable CCM Unavailable Summary Purpose Interface Exchange Insurance Providers Payer name Policy type / Coverage type Covered republican ID Effective Begin Date Effective End Date WPS Medicare Part B Medicare Part B [id number] Unknown [facility] Part B [id number] Un known Family history Father Diagnosis Age At Onset Colon cancer Unknown Social History Social History Element Codes Description Effective Dates Marital status Unknown D ivorced 04/23/[address]: 529675332 Never smoker 04/23/[address]: 468849 Currently drinks alcohol occasionally drinks 04/23/2015 Allergies, [...] Date Stop Date Sta tus Fill Instructions liothyronine 5 mcg t ablet RxNorm: 241570 TAKE ONE TABLET BY MO UTH DAILY 07/19/2018 01/14/2019 Ac tive baclofen 10 mg tablet RxNorm: 869707 TAKE ONE TABLET BY MOUTH THREE TIMES A D AY NEEDED 07/12/2018 09/09/2018 Active levothyroxine 175 mc g tablet RxNorm: 900650 1 Tablet(s) PO daily 07/11/2018 11/07/2018 Active Vitamin D2 50,000 un it capsule RxNorm: 1139483 1 Capsule(s) PO QW 07/11/2018 10/02/2018 Active trazodone 50 mg tablet RxNorm: 884633 TAKE ONE TABLET BY MOUTH EVERY NIGHT AT BEDTIME AND ONE-HALF TABLET BY MOUTH NEEDED 07/11/2018 08/19/2018 Active Vitamin D2 50,000 un it capsule RxNorm: 9761212 1 Capsule(s) PO QW 07/11/2018 07/10/2018 Inactive morphine 30 mg table t, crush resistant, extended release RxNorm: 3932004 1 Tablet(s) PO BID 07/05/2018 09/02/2018 Active oxymorphone 5 mg tablet RxNorm: 008847 1 Tablet(s) PO Q6 PRN 07/05/2018 09/02/2018 Active Remeron 15 mg tablet RxNorm: 480883 TAKE ONE TABLET BY MOUTH EVERY NIGHT AT BEDTIME 06/27/2018 09/24/2018 Active bupropion HCl XL 300 mg 24 hr tablet, extended release RxNorm: 211201 TAKE ONE TABLET BY MOUTH DAILY 06/27/2018 12/23/2018 Active tizanidine 4 mg tablet RxNorm: 259931 TAKE ONE TABLET BY MOUTH THREE TIMES A D AY NEEDED 06/20/2018 08/18/2018 Active doxycycline hyclate 100 mg tablet RxNorm: 6320824 1 Tablet(s) PO BID 06/18/2018 07/01/2018 Inactive Protonix 40 mg table t,delayed release RxNorm: 211649 TAKE ONE TABLET BY MO UT DAILY 06/11/2018 08/09/2018 Ac tive doxycycline hyclate 100 mg tablet RxNorm: 0401051 1 Tablet(s) PO BID 05/22/2018 06/04/2018 Inactive baclofen 10 mg tablet RxNorm: 327680 TAKE ONE TABLET BY MOUTH THREE TIMES A D AY NEEDED 05/14/2018 07/11/2018 Inactive diclofenac sodium 75 mg tablet,delayed release RxNorm: 573655 TAKE ONE TABLET BY MO UT TWICE A DAY 05/07/2018 10/03/2018 Active oxymorphone 5 mg tablet RxNorm: 895509 1 Tablet(s) PO Q6 PRN 05/04/2018 07/02/2018 Inactive morphine 30 mg table t, crush resistant, extended release RxNorm: 3944402 1 Tablet(s) PO BID 05/04/2018 07/02/2018 Inactive doxycycline hyclate 100 mg tablet RxNorm: 445022 1 Tablet(s) PO BID 04/24/2018 04/23/2018 Inactive doxycycline hyclate 100 mg tablet RxNorm: 0271465 1 Tablet(s) PO BID 04/24/2018 05/03/2018 Inactive baclofen 10 mg tablet RxNorm: 885576 TAKE ONE TABLET BY MOUTH THREE TIMES A D AY NEEDED 04/13/2018 05/12/2018 Inactive trazodone 50 mg tablet RxNorm: 608462 TAKE ONE TABLET BY MOUTH EVERY NIGHT AT BEDTIME AND ONE-HALF TABLET BY MOUTH NEEDED 04/09/2018 06/07/2018 Inactive Questran 4 gram powd er for susp in a packet RxNorm: 134014 1 packet PO BID 04/06/2018 06/04/2018 In active Questran 4 gram powd er for susp in a packet RxNorm: 223341 1 packet PO BID 04/06/2018 04/05/2018 In active Carafate 1 gram tablet RxNorm: 288278 1 Tablet(s) PO AC & HS as needed for hea rtburn 03/28/2018 04/26/2018 Inactive baclofen 10 mg tablet RxNorm: 579928 TAKE ONE TABLET BY MOUTH THREE TIMES A D AY NEEDED 03/16/2018 04/12/2018 Inactive Protonix 40 mg table t,delayed release RxNorm: 049452 TAKE ONE TABLET BY MO UTH DAILY 03/16/2018 06/10/2018 In active Belviq XR 20 mg tabl et,extended release RxNorm: 2988590 1 Tablet(s) PO daily 02/27/2018 04/27/2018 In active oxymorphone 5 mg tablet RxNorm: 379096 1 Tablet(s) PO Q6 PRN 02/27/2018 04/27/2018 Inactive morphine 30 mg table t, crush resistant, extended release RxNorm: 2983027 1 Tablet(s) PO BID 02/27/2018 04/27/2018 Inactive levothyroxine 100 mc g tablet RxNorm: 972546 1 Tablet(s) PO daily 02/27/2018 07/10/2018 Inactive take with 88mcg to = 188mcg daily levothyroxine 88 mcg tablet RxNorm: 580026 1 Tablet(s) PO daily 02/27/2018 07/10/2018 Inactive take with 100mcg to = 188mcg daily morphine 30 mg table t, crush resistant, extended release RxNorm: 2795458 1 Tablet(s) PO BID 02/14/2018 02/26/2018 Inactive levothyroxine 200 mc g tablet RxNorm: 265216 Tablet(s) TAKE ONE TA BLET BY MOUTH DAILY 01/18/2018 02/26/2018 Inactive Updated script baclofen 10 mg tablet RxNorm: 297855 Tablet(s) TAKE ONE TABLET BY MOUTH THREE TIMES A DAY NEEDED 01/15/2018 02/13/2018 Inactive morphine 30 mg table t, crush resistant, extended release RxNorm: 5043806 1 Tablet(s) PO BID 01/15/2018 02/13/2018 Inactive tizanidine 4 mg tablet RxNorm: 389747 TAKE ONE TABLET BY MOUTH THREE TIMES A D AY NEEDED 01/02/2018 04/01/2018 Inactive Request already responded t o by other means (e.g. phone or fax) bupropion HCl XL 300 mg 24 hr tablet, extended release RxNorm: 303760 TAKE ONE TABLET BY MOUTH DAILY 12/29/2017 06/26/2018 Inactive Tamiflu 75 mg capsule RxNorm: 564089 1 Capsule(s) PO BID 12/27/2017 12/31/2017 Inactive Tamiflu 75 mg capsule RxNorm: 806243 1 Capsule(s) PO BID 12/27/2017 12/26/2017 Inactive tizanidine 4 mg tablet RxNorm: 598453 1 Tablet(s) PO TID as needed 12/25/2017 01/01/2018 Inactive levothyroxine 175 mc g tablet RxNorm: 302699 1 Tablet(s) PO daily 12/14/2017 12/13/2017 Inactive levothyroxine 175 mc g tablet RxNorm: 641256 1 Tablet(s) PO daily 12/14/2017 01/17/2018 Inactive baclofen 10 mg tablet RxNorm: 733168 Tablet(s) TAKE ONE TABLET BY MOUTH THREE TIMES A DAY NEEDED 12/13/2017 01/11/2018 Inactive baclofen 10 mg tablet RxNorm: 585869 TAKE ONE TABLET BY MOUTH THREE TIMES A D AY NEEDED 12/13/2017 12/12/2017 Inactive morphine 30 mg table t, crush resistant, extended release RxNorm: 3706342 1 Tablet(s) PO BID 12/12/2017 01/14/2018 Inactive clonazepam 1 mg tablet RxNorm: 025014 1/2 Tablet(s) PO daily 12/01/2017 08/27/2018 Active trazodone 50 mg tablet RxNorm: 282447 1/2 to 1 Tablet(s) QHS as needed 12/01/2017 03/30/2018 In active Opana ER 15 mg table t, crush resistant, extended release RxNorm: 461908 1 Tablet(s) PO Q12H 12/01/2017 02/13/2018 Inactive oxymorphone 5 mg tablet RxNorm: 588924 1 Tablet(s) PO Q6 PRN 12/01/2017 02/26/2018 Inactive Remeron 15 mg tablet RxNorm: 210993 Tablet(s) TAKE ONE TABLET BY MOUTH EVERY NIGHT AT BEDTIME 12/01/2017 02/28/2018 Inactive trazodone 50 mg tablet RxNorm: 842860 1/2 Tablet(s) as needed 1 Tablet(s) PO Q HS 12/01/2017 11/30/2017 In active clonazepam 1 mg tablet RxNorm: 293785 1/2 Tablet(s) PO daily 11/30/2017 11/30/2017 Inactive Remeron 15 mg tablet RxNorm: 452693 TAKE ONE TABLET BY MOUTH EVERY NIGHT AT BEDTIME 11/29/2017 11/30/2017 Inactive levothyroxine 200 mc g tablet RxNorm: 275203 TAKE ONE TABLET BY [facility] DAILY 11/15/2017 12/13/2017 In active baclofen 10 mg tablet RxNorm: 453677 TAKE ONE TABLET BY MOUTH THREE TIMES A D AY NEEDED 11/07/2017 12/06/2017 Inactive diclofenac sodium 75 mg tablet,delayed release RxNorm: 758351 1 Tablet(s) PO BID 11/07/2017 05/05/2018 In active liothyronine 5 mcg t ablet RxNorm: 991140 TAKE ONE TABLET BY [facility] DAILY 10/27/2017 07/18/2018 In active tizanidine 4 mg tablet RxNorm: 360834 1 Tablet(s) PO TID as needed 10/18/2017 12/16/2017 Inactive oxymorphone 5 mg tablet RxNorm: 055289 1 Tablet(s) PO Q6 PRN 09/29/2017 11/27/2017 Inactive morphine 30 mg table t, crush resistant, extended release RxNorm: 3948483 1 Tablet(s) PO BID 09/29/2017 11/28/2017 Inactive baclofen 10 mg tablet RxNorm: 345887 1 Tablet(s) PO TID as needed 09/11/2017 10/10/2017 Inactive baclofen 10 mg tablet RxNorm: 640526 1 Tablet(s) PO TID as needed 08/11/2017 09/09/2017 Inactive Opana ER 15 mg table t, crush resistant, extended release RxNorm: 859448 1 Tablet(s) PO Q12H 08/11/2017 09/28/2017 Inactive Remeron 15 mg tablet RxNorm: 999917 TAKE ONE TABLET BY MOUTH EVERY NIGHT AT BEDTIME 08/02/2017 10/30/2017 Inactive oxymorphone 5 mg tablet RxNorm: 645312 1 Tablet(s) PO Q6 PRN 08/02/2017 09/28/2017 Inactive Opana ER 5 mg tablet , crush resistant, extended release RxNorm: 657248 1 Tablet(s) PO Q6 PRN 08/01/2017 08/10/2017 Inactive Protonix 40 mg table t,delayed release RxNorm: 071636 TAKE ONE TABLET BY [facility] DAILY 06/26/2017 10/23/2017 In active Protonix 40 mg table t,delayed release RxNorm: 623819 TAKE ONE TABLET BY [facility] DAILY 06/26/2017 06/25/2017 In active bupropion HCl XL 300 mg 24 hr tablet, extended release RxNorm: 208470 TAKE ONE TABLET BY MOUTH DAILY 06/13/2017 12/09/2017 Inactive tizanidine 4 mg tablet RxNorm: 246807 1 Tablet(s) PO TID as needed 06/13/2017 06/12/2017 Inactive tizanidine 4 mg tablet RxNorm: 844576 1 Tablet(s) PO TID as needed 06/13/2017 09/10/2017 Inactive baclofen 10 mg tablet RxNorm: 503971 1 Tablet(s) PO TID as needed 06/13/2017 07/12/2017 Inactive Opana ER 15 mg table t, crush resistant, extended release RxNorm: 782807 1 Tablet(s) PO Q12H 06/09/2017 08/07/2017 Inactive Opana ER 5 mg tablet , crush resistant, extended release RxNorm: 479784 1 Tablet(s) PO Q6 PRN 06/09/2017 07/31/2017 Inactive diclofenac sodium 75 mg tablet,delayed release RxNorm: 747551 1 Tablet(s) PO BID 06/09/2017 09/06/2017 In active clonazepam 1 mg tablet RxNorm: 533096 1/2 Tablet(s) PO daily 05/24/2017 11/18/2017 Inactive bupropion HCl XL 300 mg 24 hr tablet, extended release RxNorm: 698544 TAKE ONE TABLET BY MOUTH DAILY 03/16/2017 06/12/2017 Inactive clonazepam 1 mg tablet RxNorm: 991912 1/2 Tablet(s) PO daily 02/22/2017 05/18/2017 Inactive Remeron 15 mg tablet RxNorm: 843455 TAKE ONE TABLET BY MOUTH EVERY NIGHT AT BEDTIME 02/06/2017 2017 Inactive Protonix 40 mg table t,delayed release RxNorm: 309140 TAKE ONE TABLET BY MO [facility] DAILY 01/26/2017 06/24/2017 In active mupirocin 2 % topica l ointment RxNorm: 396264 1 Application TOP BID 01/12/2017 01/18/2017 Inactive Bactrim DS 800 mg-16 0 mg tablet RxNorm: 534281 1 Tablet(s) PO BID 11/17/2016 11/23/2016 Inactive mupirocin 2 % topica l ointment RxNorm: 205759 1 Application TOP BID 11/10/2016 11/16/2016 Inactive Bactrim DS 800 mg-16 0 mg tablet RxNorm: 417479 1 Tablet(s) PO BID 11/10/2016 11/16/2016 Inactive bupropion HCl XL 300 mg 24 hr tablet, extended release RxNorm: 552303 TAKE ONE TABLET BY MOUTH DAILY 11/07/2016 03/06/2017 Inactive liothyronine 5 mcg t ablet RxNorm: 713193 1 Tablet(s) PO daily 11/01/2016 10/26/2017 Inactive levothyroxine 200 mc g tablet RxNorm: 394789 1 Tablet(s) PO daily 10/04/2016 09/28/2017 Inactive clonazepam 1 mg tablet RxNorm: 350933 1/2 Tablet(s) PO daily 09/21/2016 03/18/2017 Inactive clonazepam 1 mg tablet RxNorm: 104075 1/2 Tablet(s) PO daily 09/16/2016 09/20/2016 Inactive Abilify 2 mg tablet RxNorm: 381939 1 Tablet(s) PO daily 09/16/2016 10/13/2016 Inactive trazodone 50 mg tablet RxNorm: 431664 1/2 Tablet(s) as needed 1 Tablet(s) PO Q HS 09/16/2016 01/13/2017 In active morphine 15 mg immed iate release tablet RxNorm: 330397 1 Tablet(s) PO Q6 PRN 09/16/2016 04/06/2017 In active baclofen 10 mg tablet RxNorm: 565706 1 Tablet(s) PO TID as needed 09/16/2016 06/12/2017 Inactive MS Contin 30 mg tabl et,extended release RxNorm: 478430 1 Tablet(s) PO Q12H 09/16/2016 04/06/2017 In active Remeron 15 mg tablet RxNorm: 334773 1 Tablet(s) PO QHS 08/19/2016 09/15/2016 Inactive levothyroxine 200 mc g tablet RxNorm: 256567 1 Tablet(s) PO daily 08/11/2016 10/03/2016 Inactive bupropion HCl XL 300 mg 24 hr tablet, extended release RxNorm: 702105 TAKE ONE TABLET BY MOUTH DAILY 08/11/2016 11/06/2016 Inactive Protonix 40 mg table t,delayed release RxNorm: 114409 1 Tablet(s) PO daily 06/17/2016 12/13/2016 In active bupropion HCl XL 300 mg 24 hr tablet, extended release RxNorm: 073712 1 Tablet(s) PO daily 05/12/2016 07/10/2016 Inactive bupropion HCl XL 300 mg 24 hr tablet, extended release RxNorm: 206262 1 Tablet(s) PO daily 05/12/2016 05/11/2016 Inactive Cialis 20 mg tablet RxNorm: 255103 1 Tablet(s) PO PRN 02/16/2016 No Stop Date Active not more than 1 tab in 24 hours morphine ER 10 mg ca psule,extended release pellets RxNorm: 158907 1 Tablet(s) PO Q6 as needed 02/16/2016 11/16/2016 Inactive clonazepam 1 mg tablet RxNorm: 576473 1/2 Tablet(s) PO BID 02/16/2016 09/15/2016 Inactive trazodone 50 mg tablet RxNorm: 843583 1/2 Tablet(s) as needed 1 Tablet(s) PO Q HS 02/16/2016 08/18/2016 In active trazodone 50 mg tablet RxNorm: 845809 1/2 Tablet(s) 1 Tablet(s) PO QHS 11/17/2015 02/15/2016 In active trazodone 50 mg tablet RxNorm: 022953 1 Tablet(s) PO QHS 10/19/2015 11/16/2015 Inactive levothyroxine 200 mc g tablet RxNorm: 894034 1 Tablet(s) PO daily 10/02/2015 08/10/2016 Inactive Wellbutrin XL 150 mg 24 hr tablet, extended release RxNorm: 167488 1 Tablet(s) PO daily 10/02/2015 05/11/2016 Inactive levothyroxine 200 mc g tablet RxNorm: 397654 1 Tablet(s) PO daily 09/30/2015 10/01/2015 Inactive Wellbutrin XL 150 mg 24 hr tablet, extended release RxNorm: 965874 1 Tablet(s) PO daily 09/30/2015 10/01/2015 Inactive trazodone 50 mg tablet RxNorm: 243024 1 Tablet(s) PO QHS 09/11/2015 10/10/2015 Inactive trazodone 50 mg tablet RxNorm: 718430 1 Tablet(s) PO QHS 09/11/2015 09/10/2015 Inactive Cymbalta 30 mg capsu le,delayed release RxNorm: 168510 1 Capsule(s) PO daily 09/07/2015 11/16/2015 In active Cymbalta 60 mg capsu le,delayed release RxNorm: 795006 1 Capsule(s) PO daily 08/31/2015 08/30/2015 In active Cymbalta 30 mg capsu le,delayed release RxNorm: 267006 1 Capsule(s) PO daily take with 60mg to make 90 mg daily 08/31/2015 09/06/2015 Inactive Cymbalta 30 mg capsu le,delayed release RxNorm: 495786 1 Capsule(s) PO daily take with 60mg to make 90 mg daily 08/31/2015 08/30/2015 Inactive Cymbalta 60 mg capsu le,delayed release RxNorm: 510391 1 Capsule(s) PO daily x 7 days and then increase to 90mg daily 08/31/2015 09/07/2015 Inactive levothyroxine 200 mc g tablet RxNorm: 828882 1 Tablet(s) PO daily 08/14/2015 09/29/2015 Inactive Wellbutrin XL 150 mg 24 hr tablet, extended release RxNorm: 690917 1 Tablet(s) PO daily 07/14/2015 09/29/2015 Inactive Cialis 20 mg tablet RxNorm: 826034 1 Tablet(s) PO PRN 07/02/2015 02/15/2016 Inactive not more than 1 tab in 24 hours liothyronine 5 mcg t ablet RxNorm: 071102 1 Tablet(s) PO daily 2015 05/29/2016 Inactive clonazepam 1 mg tablet RxNorm: 760864 1 Tablet(s) PO TID 2015 02/15/2016 Inactive minocycline 50 mg ta blet RxNorm: 084918 1 Tablet(s) PO daily 2015 05/11/2016 Inactive Wellbutrin XL 150 mg 24 hr tablet, extended release RxNorm: 652239 1 Tablet(s) PO daily 04/23/2015 07/13/2015 Inactive levothyroxine 200 mc g tablet RxNorm: 275332 1 Tablet(s) PO daily 04/23/2015 08/13/2015 Inactive Aleve oral RxNorm: 394777 oral No Start Date Active Tylenol 500 mg RxNorm: oral No Start Date Active morphine ER 15 mg ta blet,extended release RxNorm: 895529 oral No Start Date 11/16/2016 Inactive Trazadone 25 mg RxNorm: 2 PO daily No Start Date 09/11/2015 Inactive diclofenac oral RxNorm: 3355 oral No Start Date 05/04/2018 Inactive clonazepam 1 mg tablet RxNorm: 385138 1 Tablet(s) PO QHS No Start Date 06/04/2015 Inactive Wellbutrin XL 150 mg 24 hr tablet, extended release RxNorm: 340401 1 Tablet(s) PO daily No Start Date 04/22/2015 Inactive minocycline 50 mg ta blet RxNorm: 999223 1 Tablet(s) PO daily No Start Date 06/04/2015 Inactive methadone 5 mg tablet RxNorm: 837007 1 Tablet(s) PO Q8 No Start Date 02/15/2016 Inactive Protonix 40 mg table t,delayed release RxNorm: 055014 Tablet(s) PO daily No Start Date 06/16/2016 Inactive Opana ER 15 mg table t, crush resistant, extended release RxNorm: 490159 1 Tablet(s) PO Q12H No Start Date 06/08/2017 Inactive MS Contin 30 mg tabl et,extended release RxNorm: 713241 1 Tablet(s) PO Q12H No Start Date 02/15/2016 Inactive Opana ER 15 mg table t, crush resistant, extended release RxNorm: 058188 1 Tablet(s) PO BID No Start Date 09/15/2016 Inactive liothyronine 5 mcg t ablet RxNorm: 098891 1 Tablet(s) PO daily No Start Date 06/04/2015 Inactive Cialis 20 mg tablet RxNorm: 948694 1 Tablet(s) PO PRN No Start Date 07/01/2015 Inactive not more than 1 tab in 24 hours baclofen 10 mg tablet RxNorm: 641239 1 Tablet(s) PO TID as needed No Start Date 05/11/2016 Inactive morphine 15 mg immed iate release tablet RxNorm: 393094 1 Tablet(s) PO Q6 PRN as needed No Start Date 02/15/2016 Inactive levothyroxine 200 mc g tablet RxNorm: 761935 1 Tablet(s) PO daily No Start Date 04/22/2015 Inactive Opana ER 5 mg tablet , crush resistant, extended release RxNorm: 810934 1 Tablet(s) PO Q6 No Start Date 06/08/2017 Inactive Medication Administered No Medication Administered data Immunizations No Immunization data Assessments Condition Codes Effectiv e Dates Chronic pain syndrome ICD-10: G89.4 ICD-9: 338.4 07/05/2018 Other male erectile dysfunction ICD- 10: N52.8 [...] Reason For Visit Effective Dates Notes fatigue 07/05/2018 chest pain/pressure 05/04/2018 fever 03/28/2018 [...] Code Result Date Vitamin D 25 Oh [id number] VITAMIN D, 25 HYDROXY 30.96 ng/mL 07/06/2018 Comp Metabolic Gao573 NA 141 mEq/L 07/06/2018 Comp Metabolic Rfu145 K 4.2 mEq/L 07/06/2018 Comp Metabolic Ssl844 CL 103 mEq/L 07/06/2018 Comp Metabolic Wfx370 CO2 29.0 mEq/L 07/06/2018 Comp Metabolic Oxe698 AN ION GAP 13 07/06/2018 Comp Metabolic Eoq849 GL UCOSE 105 mg/dL 07/06/2018 Comp Metabolic Wfs983 Cr eat 0.8 mg/dL 07/06/2018 Comp Metabolic Dwn548 eG FR 101 ml/min/1.73m2 06/27 Comp Metabolic Ugr064 BUN 7 mg/dL 07/06/2018 Comp Metabolic Lvw049 B/ C Ratio 8.3 Ratio 07/06/2018 Comp Metabolic Dwo336 CA LCIUM 9.9 mg/dL 07/06/2018 Comp Metabolic Yyo163 AL K PHOS 65 U/L 07/06/2018 Comp Metabolic Uqk644 T(SGOT) 21 U/L 07/06/2018 Comp Metabolic Iji816 AL T(SGPT) 31 U/L 07/06/2018 Comp Metabolic Ytj781 BI LI T 0.3 mg/dL 07/06/2018 Comp Metabolic Ias504 AL BUMIN 4.3 g/dL 07/06/2018 Comp Metabolic Mtc324 TP RO 6.4 g/dL 07/06/2018 Comp Metabolic Ksj060 GL OB 2.1 g/dL 07/06/2018 Comp Metabolic Yfj755 A/ G Ratio 2.0 Ratio 07/06/2018 Comp Metabolic Zio799 Os mo 280 mOsmo 07/06/2018 Cbc With [...] 29.3 pg 07/06/2018 Cbc With Differential Ord2 [place]% 10.5 % 07/06/2018 Cbc With Differential Ord2 Eos% 5.2 % 07/06/2018 Cbc With Differential Ord2 MCHC 32.5 pg 07/06/2018 Cbc With Differential Ord2 Baso% 0.4 % 07/06/2018 Cbc With Differential Ord2 PLT 283 K/ul 07/06/2018 Cbc With Differential Ord2 RDW 14.0 % 07/06/2018 Cbc With Differential Ord2 Neut ABS# 2.12 K/ul 07/06/2018 Cbc With Differential Ord2 Lymph ABS# 1.89 K/ul 07/06/2018 Cbc With Differential Ord2 [place] ABS# 0.5 K/ul 07/06/2018 Cbc With Differential Ord2 Eos ABS# 0.3 K/ul 07/06/2018 Cbc With Differential Ord2 Baso ABS# 0.0 K/ul 07/06/2018 Tsh Ord6 TSH (3rd IS) 0.02 uIU/mL 07/06/2018 Testosterone Gah622 Testo 400.6 ng/dL 07/06/2018 Free T4 Mby875 FREE T4 1.48 ng/dL 07/06/2018 Total Psa Ord10 PSA 0.34 ng/mL 07/06/2018 Ozan Spotted Fever Igg/Igm 38715 3 PARTHA MT SPOTTED FEVER IGM EIA . 04/04/2018 [place] Spotted Fever Igg/Igm 69412 3 RMSF, IGM 0.24 index 04/04/2018 [place] Spotted Fever Igg/Igm [address] SPOTTED FEVER IGG EIA FLEX . 04/04/2018 [place] Spotted Fever Igg/Igm 62481 3 RMSF, IGG SCREEN-FLEX Equivocal 04/04/2018 Partha Mtn Spot'D Fev Igg 106827 RMSF, IGG- TITER IFA <1:64 04/04/2018 Ehrlichia Chaffeensis Antibody Igg 071224 EHRLICHIA CHAFFEENSIS IGG <1:64 04/02/2018 Ehrlichia Chaffeensis Antibody Igm [id number] EHRLICHIA CHAFFEENSIS IGM < 1:16 04/02/2018 Lymes Disease Total Antibodies With Western Blot Refle x [id number] B. BURGDORFERI, IGG/IGM 0.23 03/30/2018 Lymes Disease Total Antibodies With Western Blot Refle x [id number] 03/30/2018 Cbc With Differential Ord2 WBC 5.04 [...] 28.7 pg 03/28/2018 Cbc With Differential Ord2 [place]% 16.1 % 03/28/2018 Cbc With Differential Ord2 [...] 1.37 K/ul 03/28/2018 Cbc With Differential Ord2 [place] ABS# 0.8 K/ul 03/28/2018 Cbc With Differential Ord2 Eos ABS# 0.1 K/ul 03/28/2018 Cbc With Differential Ord2 Baso ABS# 0.0 K/ul 03/28/2018 Comp Metabolic Rez700 NA 136 mEq/L 02/16/2018 Comp Metabolic Bug326 K 3.9 mEq/L 02/16/2018 Comp Metabolic Uhu302 CL 103 mEq/L 02/16/2018 Comp Metabolic Ecg623 CO2 23.0 mEq/L 02/16/2018 Comp Metabolic Cxz708 AN ION GAP 14 02/16/2018 Comp Metabolic Zdl094 GL UCOSE 133 mg/dL 02/16/2018 Comp Metabolic Bso907 Cr eat 0.8 mg/dL 02/16/2018 Comp Metabolic Sxr814 eG FR 103 ml/min/1.73m2 01/26 Comp Metabolic Mlf909 BUN 7 mg/dL 02/16/2018 Comp Metabolic Tqv640 B/ C Ratio 8.4 Ratio 02/16/2018 Comp Metabolic Rnk176 CA LCIUM 9.3 mg/dL 02/16/2018 Comp Metabolic Ipt148 AL K PHOS 71 U/L 02/16/2018 Comp Metabolic Acw939 T(SGOT) 42 U/L 02/16/2018 Comp Metabolic Drw962 AL T(SGPT) 69 U/L 02/16/2018 Comp Metabolic Wri320 BI LI T 0.3 mg/dL 02/16/2018 Comp Metabolic Rdn664 AL BUMIN 4.1 g/dL 02/16/2018 Comp Metabolic Ckj711 TP RO 6.3 g/dL 02/16/2018 Comp Metabolic Asz593 GL OB 2.2 g/dL 02/16/2018 Comp Metabolic Ppp698 A/ G Ratio 1.8 Ratio 02/16/2018 Comp Metabolic Lqw830 Os mo 272 mOsmo 02/16/2018 Free T4 Tqx575 FREE T4 1.85 ng/dL 02/16/2018 Tsh Ord6 TSH (3rd IS) 0.01 uIU/mL 02/16/2018 Test(s) Not Perfromed ZYA0164 Test(s) Not Performed Test(s) Not Performed. See Below: 02/16/2018 Test(s) Not Perfromed [id number] TEST NAME CBC 02/16/2018 Test(s) Not Perfromed [id number] Rejection Reason No Suitable Specimen Receive d 02/16/2018 Test(s) Not Perfromed [id number] COMMENT Please Recollect Sample 02/16/2018 Test(s) Not Perfromed [id number] Water Regulator And Valve Repairer Fernando Goyal 02/16/2018 Tibc Ord40 Iron 138 ug/dl 02/16/2018 Tibc Ord40 UIBC 223 ug/dL 02/16/2018 Tibc Ord40 TIBC 361 ug/dL 02/16/2018 Tibc Ord40 Fe-%Sat 38.2 % 02/16/2018 Ferritin Ord22 FERRITIN 161.7 ng/mL 02/16/2018 Cbc With Differential Ord2 WBC 5.03 [...] 26.4 pg 01/05/2018 Cbc With Differential Ord2 [place]% 11.9 % 01/05/2018 Cbc With Differential Ord2 [...] 2.08 K/ul 01/05/2018 Cbc With Differential Ord2 [place] ABS# 0.6 K/ul 01/05/2018 Cbc With Differential Ord2 Eos ABS# 0.2 K/ul 01/05/2018 Cbc With Differential Ord2 Baso ABS# 0.0 K/ul 01/05/2018 Ferritin Ord22 FERRITIN 5.7 ng/mL 12/06/2017 Tibc Ord40 Iron 33 ug/dl 12/06/2017 Tibc Ord40 UIBC 431 ug/dL 12/06/2017 Tibc Ord40 TIBC 464 ug/dL 12/06/2017 Tibc Ord40 Fe-%Sat 7.1 % 12/06/2017 Free T4 Nca054 FREE T4 1.82 ng/dL 12/01/2017 Tsh Ord6 [...] 27.0 pg 12/01/2017 Cbc With Differential Ord2 [place]% 10.6 % 12/01/2017 Cbc With Differential Ord2 [...] 1.92 K/ul 12/01/2017 Cbc With Differential Ord2 [place] ABS# 0.4 K/ul 12/01/2017 Cbc With Differential Ord2 Eos ABS# 0.2 K/ul 12/01/2017 Cbc With Differential Ord2 Baso ABS# 0.0 K/ul 12/01/2017 Comp Metabolic Jht851 NA 136 mEq/L 12/01/2017 Comp Metabolic Pce266 K 4.6 mEq/L 12/01/2017 Comp Metabolic Ncv839 CL 102 mEq/L 12/01/2017 Comp Metabolic Ckd440 CO2 27.0 mEq/L 12/01/2017 Comp Metabolic Uuh085 AN ION GAP 12 12/01/2017 Comp Metabolic Anh673 GL UCOSE 90 mg/dL 12/01/2017 Comp Metabolic Zcx631 Cr eat 0.7 mg/dL 12/01/2017 Comp Metabolic Ntr592 eG FR 123 ml/min/1.73m2 03/2018 Comp Metabolic Imd291 BUN 4 mg/dL 12/01/2017 Comp Metabolic Diq990 B/ C Ratio 5.6 Ratio 12/01/2017 Comp Metabolic Mqu527 CA LCIUM 9.0 mg/dL 12/01/2017 Comp Metabolic Hkz288 AL K PHOS 67 U/L 12/01/2017 Comp Metabolic Nau114 T(SGOT) 30 U/L 12/01/2017 Comp Metabolic Fgz631 AL T(SGPT) 29 U/L 12/01/2017 Comp Metabolic Ama154 BI LI T 0.3 mg/dL 12/01/2017 Comp Metabolic Zer874 AL BUMIN 4.1 g/dL 12/01/2017 Comp Metabolic Kdr942 TP RO 6.1 g/dL 12/01/2017 Comp Metabolic Tsx420 GL OB 2.0 g/dL 12/01/2017 Comp Metabolic Wxs484 A/ G Ratio 2.0 Ratio 12/01/2017 Comp Metabolic Awx464 Os mo 268 mOsmo 12/01/2017 Comp Metabolic Bhn378 NA 136 mEq/L 02/16/2016 Comp Metabolic Mmh431 K 4.2 mEq/L 02/16/2016 Comp Metabolic Zgy430 CL 104 mEq/L 02/16/2016 Comp Metabolic Gaz496 CO2 20.0 mEq/L 02/16/2016 Comp Metabolic Bsa796 AN ION GAP 16 02/16/2016 Comp Metabolic Kku988 GL UCOSE 71 mg/dL 02/16/2016 Comp Metabolic Myt298 Cr eat 0.8 mg/dL 02/16/2016 Comp Metabolic Jrl477 eG FR 113 ml/min/1.73m2 01/26 Comp Metabolic Ckw833 BUN 7 mg/dL 02/16/2016 Comp Metabolic Pzz609 B/ C Ratio 9.1 Ratio 02/16/2016 Comp Metabolic Syo126 CA LCIUM 9.4 mg/dL 02/16/2016 Comp Metabolic Zxk546 AL K PHOS 57 U/L 02/16/2016 Comp Metabolic Rbo103 T(SGOT) 30 U/L 02/16/2016 Comp Metabolic Pll108 AL T(SGPT) 27 U/L 02/16/2016 Comp Metabolic Jso179 BI LI T 0.2 mg/dL 02/16/2016 Comp Metabolic Pfa174 AL BUMIN 4.4 g/dL 02/16/2016 Comp Metabolic Dqx028 TP RO 6.5 g/dL 02/16/2016 Comp Metabolic Vlh163 GL OB 2.1 g/dL 02/16/2016 Comp Metabolic Rkg762 A/ G Ratio 2.1 Ratio 02/16/2016 Comp Metabolic Xhf862 Os mo 268 mOsmo 02/16/2016 Free T4 Yim692 FREE T4 1.20 ng/dL 02/16/2016 Cbc With [...] 90.6 fl 02/16/2016 Cbc With Differential Ord2 MCH 30.2 pg 02/16/2016 Cbc With Differential Ord2 [place]% 9.6 % 02/16/2016 Cbc With Differential Ord2 MCHC 33.3 pg 02/16/2016 Cbc With Differential Ord2 Eos% 1.7 % 02/16/2016 Cbc With Differential Ord2 Baso% 0.4 % 02/16/2016 Cbc With Differential Ord2 PLT 377 K/ul 02/16/2016 Cbc With Differential Ord2 Neut ABS# 3.20 K/ul 02/16/2016 Cbc With Differential Ord2 RDW 12.8 % 02/16/2016 Cbc With Differential Ord2 Lymph ABS# 1.50 K/ul 02/16/2016 Cbc With Differential Ord2 [place] ABS# 0.5 K/ul 02/16/2016 Cbc With Differential [...] Result Effective Dates Constitutional No recent illness 07/05/2018 Constitutional No [...] General 1995 Cardiovascular auscultation of heart Overall: regular rate [...] lips 05/04/2018 None Full Exam - General 1995 [...] No Procedures data Vital Signs Date Vital 07/05/2018 Blood Pressure 1: 94/62 Code: 8480-6 BMI: 36.8 Code: 70352-7 Heart Rate 1: 88 bpm Height: 5'6" SpO2: 99% Weight: 228 lbs 05/04/2018 Blood Pressure 1: 110/80 Code: 8480-6 BMI: 35.5 Code: 89374-6 Heart Rate 1: 80 bpm Height: 5'6" SpO2: 99% Weight: 220 lbs 03/28/2018 Blood Pressure 1: 110/72 Code: 8480-6 BMI: 35.0 Code: 79602-1 Heart Rate 1: 80 bpm Height: 5'6" SpO2: 98% Temperature: 36.2 (C ) / 97.1 (F) Weight: 217 lbs 02/27/2018 Blood Pressure 1: 136/76 Code: 8480-6 BMI: 36.0 Code: 08397-1 Heart Rate 1: 80 bpm Height: 5'6" SpO2: 98% Weight: 223 lbs 12/01/2017 Blood Pressure 1: 132/72 Code: 8480-6 BMI: 33.4 Code: 01305-0 Heart Rate 1: 82 bpm Height: 5'6" SpO2: 97% Weight: 207 lbs 09/29/2017 Blood Pressure 1: 124/68 Code: 8480-6 BMI: 32.1 Code: 18574-3 Heart Rate 1: 77 bpm Height: 5'6" SpO2: 98% Weight: 199 lbs 08/11/2017 Blood Pressure 1: 154/82 Code: 8480-6 BMI: 31.6 Code: 20214-8 Heart Rate 1: 75 bpm Height: 5'6" SpO2: 98% Weight: 196 lbs 06/09/2017 Blood Pressure 1: 148/88 Code: 8480-6 BMI: 28.6 Code: 27820-0 Heart Rate 1: 88 bpm Height: 5'6" SpO2: 98% Weight: 177 lbs 04/07/2017 Blood Pressure 1: 140/84 Code: 8480-6 BMI: 30.3 Code: 76459-9 Heart Rate 1: 81 bpm Height: 5'6" SpO2: 99% Weight: 188 lbs 11/17/2016 Blood Pressure 1: 130/72 Code: 8480-6 Heart Rate 1: 63 bpm Height: SpO2: 93% Weight: 11/10/2016 Blood Pressure 1: 128/86 Code: 8480-6 BMI: 30.3 Code: 98259-6 Heart Rate 1: 84 bpm Height: 5'6" SpO2: 96% Weight: 188 lbs 10/14/2016 Heigh t: 5'6" 09/16/2016 Blood Pressure 1: 130/80 Code: 8480-6 BMI: 30.3 Code: 01263-1 Heart Rate 1: 67 bpm Height: 5'6" SpO2: 99% Weight: 188 lbs 08/19/2016 Blood Pressure 1: 110/62 Code: 8480-6 BMI: 29.9 Code: 79727-6 Heart Rate 1: 70 bpm Height: 5'6" SpO2: 97% Weight: 185 lbs 06/17/2016 Blood Pressure 1: 112/68 Code: 8480-6 BMI: 27.6 Code: 82528-4 Heart Rate 1: 61 bpm Height: 5'6" SpO2: 98% Weight: 171 lbs 05/12/2016 Blood Pressure 1: 130/76 Code: 8480-6 BMI: 29.7 Code: 05530-6 Heart Rate 1: 103 bpm Height: 5'6" SpO2: 98% Weight: 184 lbs 02/16/2016 Blood Pressure 1: 140/82 Code: 8480-6 BMI: 28.7 Code: 57746-2 Heart Rate 1: 66 bpm Height: 5'6" SpO2: 99% Weight: 178 lbs 11/17/2015 Blood Pressure 1: 120/74 Code: 8480-6 BMI: 29.4 Code: 78546-7 Heart Rate 1: 90 bpm Height: 5'6" SpO2: 94% Weight: 182 lbs 08/28/2015 Blood Pressure 1: 128/76 Code: 8480-6 BMI: 27.9 Code: 37337-0 Heart Rate 1: 80 bpm Height: 5'6" SpO2: 98% Weight: 173 lbs 05/28/2015 Blood Pressure 1: 122/70 Code: 8480-6 BMI: 27.0 Code: 93053-6 Heart Rate 1: 74 bpm Height: 5'6" SpO2: 98% Weight: 167 lbs 04/23/2015 Blood Pressure 1: 110/60 Code: 8480-6 BMI: 27.0 Code: 92630-8 Heart Rate 1: 68 bpm Height: 5'6" Weight: 167 lbs Functional Status No Functional Status data History of Present Illness Symptom Name Status Resu lt Effective Date Notes fatigue Onset of Symptom 1+ years ago 07/05/2018 None fatigue Frequency of Episodes daily 07/05/2018 None fatigue Triggers no know n associated factors 07/05/2018 None fatigue Quality chronic 07/05/2018 None fatigue Onset and Resolution ongoing 07/05/2018 None fatigue Quality constant 07/05/2018 None hypothyroid Quality head of research & insights fe 07/05/2018 None hypothyroid Onset and Resolution [...] Findings weight loss 03/28/2018 None hypothyroid Quality head of research & insights fe 02/27/2018 None hypothyroid Onset and Resolution [...] Encounters Encounter Performer Loca tion Codes Date ([id number]) 75983 EST. P ATIENT, LEVEL IV Diagnosis: Hypothyroidism, unspecified[ICD10: E03.9] Diagnosis: Major depressive disorder, recurrent, moderate[ICD10: F33.1] Diagnosis: Chronic pain syndrome[ICD10: G89.4] Diagnosis: Other male erectile dysfunction[ICD10: N52.8] Diagnosis: Other fatigue[ICD10: R53.83] Diagnosis: Encounter for screening for malignant neoplasm of prostate[ICD10: Z12.5] [facility] CPT-4: 67361 07/05/2018 ([id number]) 60868 EST. P ATIENT, LEVEL IV Diagnosis: Chronic pain syndrome[ICD10: G89.4] Diagnosis: Hypothyroidism, unspecified[ICD10: E03.9] Diagnosis: Major depressive disorder, recurrent, moderate[ICD10: F33.1] [facility] CPT-4: 92737 05/04/2018 [id number] EST. PATIENT, LEVEL IV Diagnosis: Melena[ICD10: K92.1] Diagnosis: Other malaise[ICD10: R53.81] Diagnosis: Other fatigue[ICD10: R53.83] Diagnosis: Pain in unspecified joint[ICD10: M25.50] Diagnosis: Diarrhea, unspecified[ICD10: R19.7] Denae Jacobo MD, [facility] CPT-4: 74032 03/28/2018 ([id number]) 83412 EST. P ATIENT, LEVEL IV Diagnosis: Chronic pain syndrome[ICD10: G89.4] Diagnosis: Hypothyroidism, unspecified[ICD10: E03.9] Diagnosis: Other obesity due to excess calories[ICD10: E66.09] Diagnosis: Major depressive disorder, recurrent, moderate[ICD10: F33.1] Diagnosis: Obstructive sleep apnea (adult) (pediatric)[ICD10: G47.33] Leydi Jacobo MD, [facility] CPT-4: 37718 02/27/2018 18330 EST. PATIENT, LEVEL IV Diagnosis: Other specified hypothyroidism[ICD10: E03.8] Diagnosis: Chronic pain syndrome[ICD10: G89.4] Diagnosis: Major depressive disorder, recurrent, moderate[ICD10: F33.1] Denae Jacobo MD, [facility] CPT-4: 16483 12/01/2017 ([id number]) 43997 EST. P ATIENT, LEVEL IV Diagnosis: Chronic pain syndrome[ICD10: G89.4] Diagnosis: Alcohol dependence, uncomplicated[ICD10: F10.20] Diagnosis: Major depressive disorder, recurrent, moderate[ICD10: F33.1] Leydi Jacobo MD, [facility] CPT-4: 21441 09/29/2017 ([id number]) 19744 EST. P ATIENT, LEVEL IV Diagnosis: Chronic pain syndrome[ICD10: G89.4] Diagnosis: Alcohol dependence, uncomplicated[ICD10: F10.20] Diagnosis: Major depressive disorder, recurrent, moderate[ICD10: F33.1] Leydi Jacobo MD, [facility] CPT-4: 30077 08/11/2017 ([id number]) 69620 EST. P ATIENT, LEVEL III Diagnosis: Chronic pain syndrome[ICD10: G89.4] Diagnosis: Major depressive disorder, recurrent, moderate[ICD10: F33.1] Leydi Jacobo MD, [facility] CPT-4: 46060 06/09/2017 ([id number]) 17289 EST. P ATIENT, LEVEL III Diagnosis: Chronic pain syndrome[ICD10: G89.4] Diagnosis: Pain in left knee[ICD10: M25.562] Leydi Jacobo MD, [facility] CPT- 4: 13353 04/07/2017 14535 EST. PATIENT, LEVEL II Diagnosis: Superficial foreign body of left upper arm, initial encounter[ICD10: S40.852A] Diagnosis: Cellulitis of left upper limb[ICD10: L03.114] Leydi Jacobo MD, [facility] CPT-4: 02745 11/17/2016 93715 EST. PATIENT, LEVEL II Diagnosis: Cellulitis of left upper limb[ICD10: L03.114] Leydi Jacobo MD, [facility] CPT-4: 40954 11/10/2016 ([id number]) 22310 EST. P ATIENT, LEVEL III Diagnosis: Chronic pain syndrome[ICD10: G89.4] Diagnosis: Major depressive disorder, recurrent, moderate[ICD10: F33.1] Leydi Jacobo MD, [facility] CPT-4: 22507 10/14/2016 09293 EST. PATIENT, LEVEL IV Diagnosis: Psychophysiologic insomnia[ICD10: F51.04] Diagnosis: Major depressive disorder, recurrent, moderate[ICD10: F33.1] Diagnosis: Alcohol dependence, uncomplicated[ICD10: F10.20] Diagnosis: Chronic pain syndrome[ICD10: G89.4] Leydi Jacoob MD, [facility] CPT-4: 95057 09/16/2016 ([id number]) 69127 EST. P ATIENT, LEVEL III Diagnosis: Pain in left shoulder[ICD10: M25.512] Diagnosis: Major depressive disorder, recurrent, moderate[ICD10: F33.1] Diagnosis: Psychophysiologic insomnia[ICD10: F51.04] Leydi Jacobo MD, [facility] CPT-4: 73875 08/19/2016 ([id number]) 62655 EST. P ATIENT, LEVEL III Diagnosis: Gastro-esophageal reflux disease without esophagitis[ICD10: K21.9] Diagnosis: Hypothyroidism, unspecified[ICD10: E03.9] Leydi Jacobo MD, [facility] CPT-4: 15827 06/17/2016 ([id number]) 55465 EST. P ATIENT, LEVEL IV Diagnosis: Gastro-esophageal reflux disease without esophagitis[ICD10: K21.9] Diagnosis: Hypothyroidism, unspecified[ICD10: E03.9] Diagnosis: Major depressive disorder, recurrent, moderate[ICD10: F33.1] Leydi Jacobo MD, [facility] CPT-4: 60918 05/12/2016 ([id number]) 38333 EST. P ATIENT, LEVEL III Diagnosis: Cervicalgia[ICD10: M54.2] Diagnosis: Hypothyroidism, unspecified[ICD10: E03.9] Diagnosis: Other male erectile dysfunction[ICD10: N52.8] Leydi Jacobo MD, [facility] CPT-4: 60027 02/16/2016 ([id number]) 23935 EST. P ATIENT, LEVEL III Diagnosis: Lumbago with sciatica, unspecified side[ICD10: M54.40] Diagnosis: Other male erectile dysfunction[ICD10: N52.8] Leydi Jacobo MD, [facility] CPT-4: 09632 11/17/2015 ([id number]) 56403 EST. P ATIENT, LEVEL III Diagnosis: Lumbago with sciatica, unspecified side[ICD10: M54.40] Diagnosis: Hypothyroidism, unspecified[ICD10: E03.9] Diagnosis: Other male erectile dysfunction[ICD10: N52.8] Leydi Jacobo MD, [facility] CPT-4: 93649 08/28/2015 ([id number]) 43046 EST. P ATIENT, LEVEL III Diagnosis: Back pain, chronic[ICD9: 724.5] Diagnosis: Depression[ICD9: 311] Diagnosis: Hypothyroid[ICD9: 244.9] Diagnosis: Bilateral calf pain[ICD9: 729.5] Julieta Jacobo MD, [facility] CPT-4: 61931 05/28/2015 ([id number]) OFFICE VISI T, NEW - LEVEL 4 Diagnosis: Back pain, chronic[ICD9: 724.5] Diagnosis: Depression[ICD9: 311] Diagnosis: Hypothyroid[ICD9: 244.9] Julieta Jacobo MD, [facility] CPT-4: 27365 04/23/2015 Plan of Care Planned Activity Notes [...] exposure. No change in current medications. Fatigue-weight uosv-XR-gwxyu labs including testosterone level 07/05/2018 Visit Plan: [...] exposure. No change in current medications. Fatigue-weight vrqq-AL-rzjty labs including testosterone level 07/05/2018 Appointment: Leydi Hightower WPtel: [address] [place], [place] [phone] [place] (15 min) Moderate 07/05/2018 Patient Education: [...] BID 05/04/2018 [facility] [phone] [phone] ([facility] min) Moderate 05/04/2018 Patient [...] pain. 03/28/2018 [facility] [phone] [phone] (30 min) Complex 03/28/2018 Appointment: [...] time. 02/27/2018 [facility] [phone] [phone] (15 min) Moderate 02/27/2018 Patient [...] control. 12/01/2017 [facility] [phone] [phone] ([facility] min) Complex 12/01/2017 Patient [...] 09/29/2017 Appointment: Leydi Hightower WPtel: [phone] [phone] (30 min) Complex 09/29/2017 Patient Education: [...] ider 08/11/2017 Appointment: Leydi Hightower WPtel: [phone] [phone] (30 min) Complex 08/11/2017 Patient Education: [...] medications. 06/09/2017 Appointment: Leydi Hightower WPtel: [phone] [phone] (30 min) Complex 06/09/2017 Patient Education: [...] completely resolve 11/17/2016 Appointment: Leydi Hightower WPtel: [phone] (30 min) Complex 11/17/2016 Patient Education: [...] in pain. 11/10/2016 Appointment: Leydi Hightower WPtel: [address] [place], [place] [phone] (30 min) Complex 11/10/2016 Patient Education: Patient [...] of plan. 10/14/2016 Appointment: Leydi Hightower WPtel: [phone] [phone] (30 min) Complex 10/14/2016 Patient Education: [...] will try 09/16/2016 Appointment: Leydi Hightower WPtel: [phone] (30 min) Complex 09/16/2016 Patient Education: Patient Medication Summary Completed 09/16/2016 Visit Plan: Left shoulder and elbow pain-xray shoulder and elbow Nfobnookpv-zoldgsgj-yacfufehutim-d/c trazodone-start remeron at bedtime Pt has been [...] this patient. 08/19/2016 Appointment: Leydi Hightower WPtel: [phone] (30 min) Complex 08/19/2016 Patient Education: [...] Completed 06/17/2016 Appointment: Leydi Hightower WPtel: [phone] [phone] (30 min) Complex 06/09/2016 Visit Plan: [...] control. 05/12/2016 [facility] [phone] [phone] ([facility] min) Complex 05/12/2016 Patient [...] in office. 05/28/2015 Appointment: Leydi Hightower WPtel: [address] [place], [place] [phone] (30 min) Complex 05/28/2015 Patient Education: Patient [...] Patient Medication Summary Completed 04/23/2015 Patient Education: [facility] - Saving AutoInj - 18-64 - Dynamic Portal ID Completed 04/23/2015 Patient Education: [facility] - Saving [employer]j - Levothyroxine - 18-64 - Dynamic Portal ID Completed 04/23/2015 Care Plan: COMPLETE CBC AUTOMATED LOINC : 91961-5 Ordered 04/23/2015 Instructions Comment CHECK LABS AT NEXT A PPT INCREASE AC[employer] MARK[employer] RESEARCH INTERVIEWER TO TWICE DAILY . Chronic Pain Syndrome [...] levels of control. GERD-increase protonix to BID ABILIFY 2mg daily WORK ON CUTTING BACK [...] and elbow pain-xray shou lder and elbow Hupjvzxnhn-gpqzfvwe-cgzsjvuuxumq-d/c trazodone-start remeron at bedtime Pt has been [...] has been appropriately prescribed for this patient. Check labs today. W e will call [...] exposure. No change in current medications. Fatigue-weight dydx-JV-cquxm labs including testosterone level . Chronic Pain [...] exposure. No change in current medications. Fatigue-weight zsts-IB-onxmy labs including testosterone level . Esophageal Reflux - the patient has [...] what type of brace is covered. . Thorn left forearm lesion removed today-instructed patient on wound care-continue anti biotic twice daily for 1 more week-call if symptoms do not completely resolve . Chronic pain-manag ed by Dr Perez-not [...] dependence-alcohol free x 11 days-attending outpatient treatment Get Immodium over counter for loose stools [...]
--- OUTSIDE RECORDS SUMMARY | 2020-03-17 15:10 | XMS REPORT | CCD ---
Author Author Thai Castillo Organization Sara Jacobo MD, [facility] Address [address] [place] [address] Phone Care Team Providers Care [place] Name Role Phone PP Unavailable CCM Unavailable Summary Purpose Interface Exchange Insurance Providers Payer name Policy type / Coverage type Covered green party ID Effective Begin Date Effective End Date WPS Medicare Part B Medicare Part B [id number] Unknown [facility] ica Part B [id number] Un known Family history Father Diagnosis Age At Onset Colon cancer Unknown Social History Social History Element Codes Description Effective Dates Marital status Unknown D ivorced 04/23/[address]: 417320407 Never smoker 04/23/[address]: 362603 Currently drinks alcohol occasionally drinks 04/23/2015 Allergies, [...] Fill Instructions baclofen 10 mg tablet RxNorm: 599149 TAKE ONE TABLET BY MOUTH THREE TIMES A D AY NEEDED 07/12/2018 09/09/2018 Active levothyroxine 175 mc g tablet RxNorm: 539107 1 Tablet(s) PO daily 07/11/2018 11/07/2018 Active Vitamin D2 50,000 un it capsule RxNorm: 6360667 1 Capsule(s) PO QW 07/11/2018 10/02/2018 Active trazodone 50 mg tablet RxNorm: 604339 TAKE ONE TABLET BY MOUTH EVERY NIGHT AT BEDTIME AND ONE-HALF TABLET BY MOUTH NEEDED 07/11/2018 08/19/2018 Active Vitamin D2 50,000 un it capsule RxNorm: 7176200 1 Capsule(s) PO QW 07/11/2018 07/10/2018 Inactive morphine 30 mg table t, crush resistant, extended release RxNorm: 8286564 1 Tablet(s) PO BID 07/05/2018 09/02/2018 Active oxymorphone 5 mg tablet RxNorm: 141489 1 Tablet(s) PO Q6 PRN 07/05/2018 09/02/2018 Active Remeron 15 mg tablet RxNorm: 726982 TAKE ONE TABLET BY MOUTH EVERY NIGHT AT BEDTIME 06/27/2018 09/24/2018 Active bupropion HCl XL 300 mg 24 hr tablet, extended release RxNorm: 057343 TAKE ONE TABLET BY MOUTH DAILY 06/27/2018 12/23/2018 Active tizanidine 4 mg tablet RxNorm: 345270 TAKE ONE TABLET BY MOUTH THREE TIMES A D AY NEEDED 06/20/2018 08/18/2018 Active doxycycline hyclate 100 mg tablet RxNorm: 9511515 1 Tablet(s) PO BID 06/18/2018 07/01/2018 Inactive Protonix 40 mg table t,delayed release RxNorm: 038248 TAKE ONE TABLET BY MO UT DAILY 06/11/2018 08/09/2018 Ac tive doxycycline hyclate 100 mg tablet RxNorm: 6426999 1 Tablet(s) PO BID 05/22/2018 06/04/2018 Inactive baclofen 10 mg tablet RxNorm: 273525 TAKE ONE TABLET BY MOUTH THREE TIMES A D AY NEEDED 05/14/2018 07/11/2018 Inactive diclofenac sodium 75 mg tablet,delayed release RxNorm: 962083 TAKE ONE TABLET BY [place] UT TWICE A DAY 05/07/2018 10/03/2018 Active oxymorphone 5 mg tablet RxNorm: 786727 1 Tablet(s) PO Q6 PRN 05/04/2018 07/02/2018 Inactive morphine 30 mg table t, crush resistant, extended release RxNorm: 2371221 1 Tablet(s) PO BID 05/04/2018 07/02/2018 Inactive doxycycline hyclate 100 mg tablet RxNorm: 226917 1 Tablet(s) PO BID 04/24/2018 04/23/2018 Inactive doxycycline hyclate 100 mg tablet RxNorm: 8836165 1 Tablet(s) PO BID 04/24/2018 05/03/2018 Inactive baclofen 10 mg tablet RxNorm: 101412 TAKE ONE TABLET BY MOUTH THREE TIMES A D AY NEEDED 04/13/2018 05/12/2018 Inactive trazodone 50 mg tablet RxNorm: 845092 TAKE ONE TABLET BY MOUTH EVERY NIGHT AT BEDTIME AND ONE-HALF TABLET BY MOUTH NEEDED 04/09/2018 06/07/2018 Inactive Questran 4 gram powd er for susp in a packet RxNorm: 586189 1 packet PO BID 04/06/2018 06/04/2018 In active Questran 4 gram powd er for susp in a packet RxNorm: 067800 1 packet PO BID 04/06/2018 04/05/2018 In active Carafate 1 gram tablet RxNorm: 794988 1 Tablet(s) PO AC & HS as needed for hea rtburn 03/28/2018 04/26/2018 Inactive baclofen 10 mg tablet RxNorm: 310117 TAKE ONE TABLET BY MOUTH THREE TIMES A D AY NEEDED 03/16/2018 04/12/2018 Inactive Protonix 40 mg table t,delayed release RxNorm: 779924 TAKE ONE TABLET BY MO UTH DAILY 03/16/2018 06/10/2018 In active Belviq XR 20 mg tabl et,extended release RxNorm: 5416034 1 Tablet(s) PO daily 02/27/2018 04/27/2018 In active oxymorphone 5 mg tablet RxNorm: 990369 1 Tablet(s) PO Q6 PRN 02/27/2018 04/27/2018 Inactive morphine 30 mg table t, crush resistant, extended release RxNorm: 0993997 1 Tablet(s) PO BID 02/27/2018 04/27/2018 Inactive levothyroxine 100 mc g tablet RxNorm: 487469 1 Tablet(s) PO daily 02/27/2018 07/10/2018 Inactive take with 88mcg to = 188mcg daily levothyroxine 88 mcg tablet RxNorm: 682033 1 Tablet(s) PO daily 02/27/2018 07/10/2018 Inactive take with 100mcg to = 188mcg daily morphine 30 mg table t, crush resistant, extended release RxNorm: 0918111 1 Tablet(s) PO BID 02/14/2018 02/26/2018 Inactive levothyroxine 200 mc g tablet RxNorm: 694021 Tablet(s) TAKE ONE TA BLET BY MOUTH DAILY 01/18/2018 02/26/2018 Inactive Updated script baclofen 10 mg tablet RxNorm: 933674 Tablet(s) TAKE ONE TABLET BY MOUTH THREE TIMES A DAY NEEDED 01/15/2018 02/13/2018 Inactive morphine 30 mg table t, crush resistant, extended release RxNorm: 3177747 1 Tablet(s) PO BID 01/15/2018 02/13/2018 Inactive tizanidine 4 mg tablet RxNorm: 841684 TAKE ONE TABLET BY MOUTH THREE TIMES A D AY NEEDED 01/02/2018 04/01/2018 Inactive Request already responded t o by other means (e.g. phone or fax) bupropion HCl XL 300 mg 24 hr tablet, extended release RxNorm: 811582 TAKE ONE TABLET BY MOUTH DAILY 12/29/2017 06/26/2018 Inactive Tamiflu 75 mg capsule RxNorm: 666018 1 Capsule(s) PO BID 12/27/2017 12/31/2017 Inactive Tamiflu 75 mg capsule RxNorm: 311015 1 Capsule(s) PO BID 12/27/2017 12/26/2017 Inactive tizanidine 4 mg tablet RxNorm: 612448 1 Tablet(s) PO TID as needed 12/25/2017 01/01/2018 Inactive levothyroxine 175 mc g tablet RxNorm: 031387 1 Tablet(s) PO daily 12/14/2017 12/13/2017 Inactive levothyroxine 175 mc g tablet RxNorm: 473902 1 Tablet(s) PO daily 12/14/2017 01/17/2018 Inactive baclofen 10 mg tablet RxNorm: 808546 Tablet(s) TAKE ONE TABLET BY MOUTH THREE TIMES A DAY NEEDED 12/13/2017 01/11/2018 Inactive baclofen 10 mg tablet RxNorm: 578751 TAKE ONE TABLET BY MOUTH THREE TIMES A D AY NEEDED 12/13/2017 12/12/2017 Inactive morphine 30 mg table t, crush resistant, extended release RxNorm: 2575634 1 Tablet(s) PO BID 12/12/2017 01/14/2018 Inactive clonazepam 1 mg tablet RxNorm: 035385 1/2 Tablet(s) PO daily 12/01/2017 08/27/2018 Active trazodone 50 mg tablet RxNorm: 112048 1/2 to 1 Tablet(s) QHS as needed 12/01/2017 03/30/2018 In active Opana ER 15 mg table t, crush resistant, extended release RxNorm: 847773 1 Tablet(s) PO Q12H 12/01/2017 02/13/2018 Inactive oxymorphone 5 mg tablet RxNorm: 753242 1 Tablet(s) PO Q6 PRN 12/01/2017 02/26/2018 Inactive Remeron 15 mg tablet RxNorm: 220448 Tablet(s) TAKE ONE TABLET BY MOUTH EVERY NIGHT AT BEDTIME 12/01/2017 02/28/2018 Inactive trazodone 50 mg tablet RxNorm: 458814 1/2 Tablet(s) as needed 1 Tablet(s) PO Q HS 12/01/2017 11/30/2017 In active clonazepam 1 mg tablet RxNorm: 145863 1/2 Tablet(s) PO daily 11/30/2017 11/30/2017 Inactive Remeron 15 mg tablet RxNorm: 051994 TAKE ONE TABLET BY MOUTH EVERY NIGHT AT BEDTIME 11/29/2017 11/30/2017 Inactive levothyroxine 200 mc g tablet RxNorm: 724784 TAKE ONE TABLET BY [facility] DAILY 11/15/2017 12/13/2017 In active baclofen 10 mg tablet RxNorm: 403941 TAKE ONE TABLET BY MOUTH THREE TIMES A D AY NEEDED 11/07/2017 12/06/2017 Inactive diclofenac sodium 75 mg tablet,delayed release RxNorm: 769829 1 Tablet(s) PO BID 11/07/2017 05/05/2018 In active liothyronine 5 mcg t ablet RxNorm: 767914 TAKE ONE TABLET BY [facility] DAILY 10/27/2017 07/23/2018 Ac tive tizanidine 4 mg tablet RxNorm: 614031 1 Tablet(s) PO TID as needed 10/18/2017 12/16/2017 Inactive oxymorphone 5 mg tablet RxNorm: 460096 1 Tablet(s) PO Q6 PRN 09/29/2017 11/27/2017 Inactive morphine 30 mg table t, crush resistant, extended release RxNorm: 1616138 1 Tablet(s) PO BID 09/29/2017 11/28/2017 Inactive baclofen 10 mg tablet RxNorm: 837384 1 Tablet(s) PO TID as needed 09/11/2017 10/10/2017 Inactive baclofen 10 mg tablet RxNorm: 622223 1 Tablet(s) PO TID as needed 08/11/2017 09/09/2017 Inactive Opana ER 15 mg table t, crush resistant, extended release RxNorm: 444891 1 Tablet(s) PO Q12H 08/11/2017 09/28/2017 Inactive Remeron 15 mg tablet RxNorm: 337921 TAKE ONE TABLET BY MOUTH EVERY NIGHT AT BEDTIME 08/02/2017 10/30/2017 Inactive oxymorphone 5 mg tablet RxNorm: 398255 1 Tablet(s) PO Q6 PRN 08/02/2017 09/28/2017 Inactive Opana ER 5 mg tablet , crush resistant, extended release RxNorm: 850729 1 Tablet(s) PO Q6 PRN 08/01/2017 08/10/2017 Inactive Protonix 40 mg table t,delayed release RxNorm: 465044 TAKE ONE TABLET BY [facility] DAILY 06/26/2017 10/23/2017 In active Protonix 40 mg table t,delayed release RxNorm: 373209 TAKE ONE TABLET BY [facility] DAILY 06/26/2017 06/25/2017 In active bupropion HCl XL 300 mg 24 hr tablet, extended release RxNorm: 863202 TAKE ONE TABLET BY MOUTH DAILY 06/13/2017 12/09/2017 Inactive tizanidine 4 mg tablet RxNorm: 960309 1 Tablet(s) PO TID as needed 06/13/2017 06/12/2017 Inactive tizanidine 4 mg tablet RxNorm: 902744 1 Tablet(s) PO TID as needed 06/13/2017 09/10/2017 Inactive baclofen 10 mg tablet RxNorm: 163336 1 Tablet(s) PO TID as needed 06/13/2017 07/12/2017 Inactive Opana ER 15 mg table t, crush resistant, extended release RxNorm: 002207 1 Tablet(s) PO Q12H 06/09/2017 08/07/2017 Inactive Opana ER 5 mg tablet , crush resistant, extended release RxNorm: 284457 1 Tablet(s) PO Q6 PRN 06/09/2017 07/31/2017 Inactive diclofenac sodium 75 mg tablet,delayed release RxNorm: 060376 1 Tablet(s) PO BID 06/09/2017 09/06/2017 In active clonazepam 1 mg tablet RxNorm: 205306 1/2 Tablet(s) PO daily 05/24/2017 11/18/2017 Inactive bupropion HCl XL 300 mg 24 hr tablet, extended release RxNorm: 779566 TAKE ONE TABLET BY MOUTH DAILY 03/16/2017 06/12/2017 Inactive clonazepam 1 mg tablet RxNorm: 111497 1/2 Tablet(s) PO daily 02/22/2017 05/18/2017 Inactive Remeron 15 mg tablet RxNorm: 576583 TAKE ONE TABLET BY MOUTH EVERY NIGHT AT BEDTIME 02/06/2017 2017 Inactive Protonix 40 mg table t,delayed release RxNorm: 704622 TAKE ONE TABLET BY [facility] DAILY 01/26/2017 06/24/2017 In active mupirocin 2 % topica l ointment RxNorm: 988915 1 Application TOP BID 01/12/2017 01/18/2017 Inactive Bactrim DS 800 mg-16 0 mg tablet RxNorm: 134364 1 Tablet(s) PO BID 11/17/2016 11/23/2016 Inactive mupirocin 2 % topica l ointment RxNorm: 052660 1 Application TOP BID 11/10/2016 11/16/2016 Inactive Bactrim DS 800 mg-16 0 mg tablet RxNorm: 777083 1 Tablet(s) PO BID 11/10/2016 11/16/2016 Inactive bupropion HCl XL 300 mg 24 hr tablet, extended release RxNorm: 654052 TAKE ONE TABLET BY MOUTH DAILY 11/07/2016 03/06/2017 Inactive liothyronine 5 mcg t ablet RxNorm: 843553 1 Tablet(s) PO daily 11/01/2016 10/26/2017 Inactive levothyroxine 200 mc g tablet RxNorm: 789743 1 Tablet(s) PO daily 10/04/2016 09/28/2017 Inactive clonazepam 1 mg tablet RxNorm: 408641 1/2 Tablet(s) PO daily 09/21/2016 03/18/2017 Inactive clonazepam 1 mg tablet RxNorm: 649858 1/2 Tablet(s) PO daily 09/16/2016 09/20/2016 Inactive Abilify 2 mg tablet RxNorm: 389427 1 Tablet(s) PO daily 09/16/2016 10/13/2016 Inactive trazodone 50 mg tablet RxNorm: 531921 1/2 Tablet(s) as needed 1 Tablet(s) PO Q HS 09/16/2016 01/13/2017 In active morphine 15 mg immed iate release tablet RxNorm: 234617 1 Tablet(s) PO Q6 PRN 09/16/2016 04/06/2017 In active baclofen 10 mg tablet RxNorm: 635957 1 Tablet(s) PO TID as needed 09/16/2016 06/12/2017 Inactive MS Contin 30 mg tabl et,extended release RxNorm: 697759 1 Tablet(s) PO Q12H 09/16/2016 04/06/2017 In active Remeron 15 mg tablet RxNorm: 320613 1 Tablet(s) PO QHS 08/19/2016 09/15/2016 Inactive levothyroxine 200 mc g tablet RxNorm: 163305 1 Tablet(s) PO daily 08/11/2016 10/03/2016 Inactive bupropion HCl XL 300 mg 24 hr tablet, extended release RxNorm: 081820 TAKE ONE TABLET BY MOUTH DAILY 08/11/2016 11/06/2016 Inactive Protonix 40 mg table t,delayed release RxNorm: 115971 1 Tablet(s) PO daily 06/17/2016 12/13/2016 In active bupropion HCl XL 300 mg 24 hr tablet, extended release RxNorm: 492547 1 Tablet(s) PO daily 05/12/2016 07/10/2016 Inactive bupropion HCl XL 300 mg 24 hr tablet, extended release RxNorm: 975552 1 Tablet(s) PO daily 05/12/2016 05/11/2016 Inactive Cialis 20 mg tablet RxNorm: 718787 1 Tablet(s) PO PRN 02/16/2016 No Stop Date Active not more than 1 tab in 24 hours morphine ER 10 mg ca psule,extended release pellets RxNorm: 177131 1 Tablet(s) PO Q6 as needed 02/16/2016 11/16/2016 Inactive clonazepam 1 mg tablet RxNorm: 916113 1/2 Tablet(s) PO BID 02/16/2016 09/15/2016 Inactive trazodone 50 mg tablet RxNorm: 385931 1/2 Tablet(s) as needed 1 Tablet(s) PO Q HS 02/16/2016 08/18/2016 In active trazodone 50 mg tablet RxNorm: 277441 1/2 Tablet(s) 1 Tablet(s) PO QHS 11/17/2015 02/15/2016 In active trazodone 50 mg tablet RxNorm: 142877 1 Tablet(s) PO QHS 10/19/2015 11/16/2015 Inactive levothyroxine 200 mc g tablet RxNorm: 590925 1 Tablet(s) PO daily 10/02/2015 08/10/2016 Inactive Wellbutrin XL 150 mg 24 hr tablet, extended release RxNorm: 991768 1 Tablet(s) PO daily 10/02/2015 05/11/2016 Inactive levothyroxine 200 mc g tablet RxNorm: 353471 1 Tablet(s) PO daily 09/30/2015 10/01/2015 Inactive Wellbutrin XL 150 mg 24 hr tablet, extended release RxNorm: 584033 1 Tablet(s) PO daily 09/30/2015 10/01/2015 Inactive trazodone 50 mg tablet RxNorm: 562171 1 Tablet(s) PO QHS 09/11/2015 10/10/2015 Inactive trazodone 50 mg tablet RxNorm: 938586 1 Tablet(s) PO QHS 09/11/2015 09/10/2015 Inactive Cymbalta 30 mg capsu le,delayed release RxNorm: 612759 1 Capsule(s) PO daily 09/07/2015 11/16/2015 In active Cymbalta 60 mg capsu le,delayed release RxNorm: 528817 1 Capsule(s) PO daily 08/31/2015 08/30/2015 In active Cymbalta 30 mg capsu le,delayed release RxNorm: 312990 1 Capsule(s) PO daily take with 60mg to make 90 mg daily 08/31/2015 09/06/2015 Inactive Cymbalta 30 mg capsu le,delayed release RxNorm: 643425 1 Capsule(s) PO daily take with 60mg to make 90 mg daily 08/31/2015 08/30/2015 Inactive Cymbalta 60 mg capsu le,delayed release RxNorm: 250661 1 Capsule(s) PO daily x 7 days and then increase to 90mg daily 08/31/2015 09/07/2015 Inactive levothyroxine 200 mc g tablet RxNorm: 687859 1 Tablet(s) PO daily 08/14/2015 09/29/2015 Inactive Wellbutrin XL 150 mg 24 hr tablet, extended release RxNorm: 540904 1 Tablet(s) PO daily 07/14/2015 09/29/2015 Inactive Cialis 20 mg tablet RxNorm: 011859 1 Tablet(s) PO PRN 07/02/2015 02/15/2016 Inactive not more than 1 tab in 24 hours liothyronine 5 mcg t ablet RxNorm: 519577 1 Tablet(s) PO daily 2015 05/29/2016 Inactive clonazepam 1 mg tablet RxNorm: 558641 1 Tablet(s) PO TID 2015 02/15/2016 Inactive minocycline 50 mg ta blet RxNorm: 548957 1 Tablet(s) PO daily 2015 05/11/2016 Inactive Wellbutrin XL 150 mg 24 hr tablet, extended release RxNorm: 605941 1 Tablet(s) PO daily 04/23/2015 07/13/2015 Inactive levothyroxine 200 mc g tablet RxNorm: 612318 1 Tablet(s) PO daily 04/23/2015 08/13/2015 Inactive Aleve oral RxNorm: 611377 oral No Start Date Active Tylenol 500 mg RxNorm: oral No Start Date Active morphine ER 15 mg ta blet,extended release RxNorm: 389779 oral No Start Date 11/16/2016 Inactive Trazadone 25 mg RxNorm: 2 PO daily No Start Date 09/11/2015 Inactive diclofenac oral RxNorm: 3355 oral No Start Date 05/04/2018 Inactive clonazepam 1 mg tablet RxNorm: 128499 1 Tablet(s) PO QHS No Start Date 06/04/2015 Inactive Wellbutrin XL 150 mg 24 hr tablet, extended release RxNorm: 908403 1 Tablet(s) PO daily No Start Date 04/22/2015 Inactive minocycline 50 mg ta blet RxNorm: 232718 1 Tablet(s) PO daily No Start Date 06/04/2015 Inactive methadone 5 mg tablet RxNorm: 027540 1 Tablet(s) PO Q8 No Start Date 02/15/2016 Inactive Protonix 40 mg table t,delayed release RxNorm: 293898 Tablet(s) PO daily No Start Date 06/16/2016 Inactive Opana ER 15 mg table t, crush resistant, extended release RxNorm: 537744 1 Tablet(s) PO Q12H No Start Date 06/08/2017 Inactive MS Contin 30 mg tabl et,extended release RxNorm: 760422 1 Tablet(s) PO Q12H No Start Date 02/15/2016 Inactive Opana ER 15 mg table t, crush resistant, extended release RxNorm: 784585 1 Tablet(s) PO BID No Start Date 09/15/2016 Inactive liothyronine 5 mcg t ablet RxNorm: 408109 1 Tablet(s) PO daily No Start Date 06/04/2015 Inactive Cialis 20 mg tablet RxNorm: 717175 1 Tablet(s) PO PRN No Start Date 07/01/2015 Inactive not more than 1 tab in 24 hours baclofen 10 mg tablet RxNorm: 172299 1 Tablet(s) PO TID as needed No Start Date 05/11/2016 Inactive morphine 15 mg immed iate release tablet RxNorm: 216478 1 Tablet(s) PO Q6 PRN as needed No Start Date 02/15/2016 Inactive levothyroxine 200 mc g tablet RxNorm: 698099 1 Tablet(s) PO daily No Start Date 04/22/2015 Inactive Opana ER 5 mg tablet , crush resistant, extended release RxNorm: 786744 1 Tablet(s) PO Q6 No Start Date [...] Code Result Date Vitamin D 25 Oh Ioe2171 VITAMIN D, 25 HYDROXY 30.96 ng/mL 07/06/2018 Comp Metabolic Edo285 NA 141 mEq/L 07/06/2018 Comp Metabolic Utj568 K 4.2 mEq/L 07/06/2018 Comp Metabolic Yxd329 CL 103 mEq/L 07/06/2018 Comp Metabolic Dcf230 CO2 29.0 mEq/L 07/06/2018 Comp Metabolic Uax816 AN ION GAP 13 07/06/2018 Comp Metabolic Gct801 GL UCOSE 105 mg/dL 07/06/2018 Comp Metabolic Jtb777 Cr eat 0.8 mg/dL 07/06/2018 Comp Metabolic Jxq075 eG FR 101 ml/min/1.73m2 06/27 Comp Metabolic Gas127 BUN 7 mg/dL 07/06/2018 Comp Metabolic Ymu243 B/ C Ratio 8.3 Ratio 07/06/2018 Comp Metabolic Phv200 CA LCIUM 9.9 mg/dL 07/06/2018 Comp Metabolic Rsq624 AL K PHOS 65 U/L 07/06/2018 Comp Metabolic Jxm062 T(SGOT) 21 U/L 07/06/2018 Comp Metabolic Sey637 AL T(SGPT) 31 U/L 07/06/2018 Comp Metabolic Qmg325 BI LI T 0.3 mg/dL 07/06/2018 Comp Metabolic Ame830 AL BUMIN 4.3 g/dL 07/06/2018 Comp Metabolic Epf935 TP RO 6.4 g/dL 07/06/2018 Comp Metabolic Stp188 GL OB 2.1 g/dL 07/06/2018 Comp Metabolic Cly977 A/ G Ratio 2.0 Ratio 07/06/2018 Comp Metabolic Mxj283 Os mo 280 mOsmo 07/06/2018 Cbc With [...] 39.5 % 07/06/2018 Cbc With Differential Ord2 Delta% 10.5 % 07/06/2018 Cbc With Differential Ord2 [...] 1.89 K/ul 07/06/2018 Cbc With Differential Ord2 Delta ABS# 0.5 K/ul 07/06/2018 Cbc With Differential Ord2 Eos ABS# 0.3 K/ul 07/06/2018 Cbc With Differential Ord2 Baso ABS# 0.0 K/ul 07/06/2018 Total Psa Ord10 PSA 0.34 ng/mL 07/06/2018 Tsh Ord6 TSH (3rd IS) 0.02 uIU/mL 07/06/2018 Testosterone Kcq391 Testo 400.6 ng/dL 07/06/2018 Free T4 Erq558 FREE T4 1.48 ng/dL 07/06/2018 [place]abel Spotted Fever Igg/Igm 33339 3 PARTHA MT SPOTTED FEVER IGM EIA . 04/04/2018 [place] Spotted Fever Igg/Igm 57509 3 RMSF, IGM 0.24 index 04/04/2018 [place] Spotted Fever Igg/Igm 19909 3 PARTHA MT SPOTTED FEVER IGG EIA FLEX . 04/04/2018 [place] Spotted Fever Igg/Igm 88545 3 RMSF, IGG SCREEN-FLEX Equivocal 04/04/2018 Partha Mtn Spot'D Fev Igg 653444 RMSF, IGG- TITER IFA <1:64 04/04/2018 Ehrlichia Chaffeensis Antibody Igg [id number] EHRLICHIA CHAFFEENSIS IGG <1:64 04/02/2018 Ehrlichia Chaffeensis Antibody Igm [id number] EHRLICHIA CHAFFEENSIS IGM < 1:16 04/02/2018 Lymes Disease Total Antibodies With Western Blot Refle x 815444 B. BURGDORFERI, IGG/IGM 0.23 03/30/2018 Lymes Disease Total Antibodies With Western Blot Refle x [id number] 03/30/2018 Cbc With Differential Ord2 WBC 5.04 [...] 28.7 pg 03/28/2018 Cbc With Differential Ord2 Delta% 16.1 % 03/28/2018 Cbc With Differential Ord2 Eos% 2.0 % 03/28/2018 Cbc With Differential Ord2 MCHC 33.7 pg 03/28/2018 Cbc With Differential Ord2 PLT 174 K/ul 03/28/2018 Cbc With Differential Ord2 Baso% 0.0 % 03/28/2018 Cbc With Differential Ord2 Neut ABS# 2.76 K/ul 03/28/2018 Cbc With Differential Ord2 RDW 16.9 % 03/28/2018 Cbc With Differential Ord2 Lymph ABS# 1.37 K/ul 03/28/2018 Cbc With Differential Ord2 Delta ABS# 0.8 K/ul 03/28/2018 Cbc With Differential Ord2 Eos ABS# 0.1 K/ul 03/28/2018 Cbc With Differential Ord2 Baso ABS# 0.0 K/ul 03/28/2018 Free T4 Rhg767 FREE T4 1.85 ng/dL 02/16/2018 Test(s) Not Perfromed [id number] Test(s) Not Performed Test(s) Not Performed. See Below: 02/16/2018 Test(s) Not Perfromed [id number] TEST NAME CBC 02/16/2018 Test(s) Not Perfromed [id number] Rejection Reason No Suitable Specimen Receive d 02/16/2018 Test(s) Not Perfromed [id number] COMMENT Please Recollect Sample 02/16/2018 Test(s) Not Perfromed [id number] Controller [place] Fernando Goyal 02/16/2018 Ferritin Ord22 FERRITIN 161.7 ng/mL 02/16/2018 Comp Metabolic Nte070 NA 136 mEq/L 02/16/2018 Comp Metabolic Fmf546 K 3.9 mEq/L 02/16/2018 Comp Metabolic Nnn851 CL 103 mEq/L 02/16/2018 Comp Metabolic Uoe678 CO2 23.0 mEq/L 02/16/2018 Comp Metabolic Hyw121 AN ION GAP 14 02/16/2018 Comp Metabolic Sjs379 GL UCOSE 133 mg/dL 02/16/2018 Comp Metabolic Jdt994 Cr eat 0.8 mg/dL 02/16/2018 Comp Metabolic Iml516 eG FR 103 ml/min/1.73m2 01/26 Comp Metabolic Wek447 BUN 7 mg/dL 02/16/2018 Comp Metabolic Ogz896 B/ C Ratio 8.4 Ratio 02/16/2018 Comp Metabolic Lcz989 CA LCIUM 9.3 mg/dL 02/16/2018 Comp Metabolic Peg140 AL K PHOS 71 U/L 02/16/2018 Comp Metabolic Ehk702 T(SGOT) 42 U/L 02/16/2018 Comp Metabolic Pmw419 AL T(SGPT) 69 U/L 02/16/2018 Comp Metabolic Mre809 BI LI T 0.3 mg/dL 02/16/2018 Comp Metabolic Sdd319 AL BUMIN 4.1 g/dL 02/16/2018 Comp Metabolic Omm553 TP RO 6.3 g/dL 02/16/2018 Comp Metabolic Hsl740 GL OB 2.2 g/dL 02/16/2018 Comp Metabolic Uwr432 A/ G Ratio 1.8 Ratio 02/16/2018 Comp Metabolic Pma878 Os mo 272 mOsmo 02/16/2018 Tibc Ord40 Iron 138 ug/dl 02/16/2018 Tibc Ord40 UIBC 223 ug/dL 02/16/2018 Tibc Ord40 TIBC 361 ug/dL 02/16/2018 Tibc Ord40 Fe-%Sat 38.2 % 02/16/2018 Tsh Ord6 TSH (3rd IS) 0.01 uIU/mL 02/16/2018 Cbc With Differential Ord2 WBC 5.03 K/ul 01/05/2018 Cbc With Differential Ord2 RBC 4.02 M/ul 01/05/2018 Cbc With Differential Ord2 HGB 10.6 g/dl 01/05/2018 Cbc With Differential Ord2 Neut% 42.5 % 01/05/2018 Cbc With Differential Ord2 HCT 32.9 % 01/05/2018 Cbc With Differential Ord2 MCV 81.8 fl 01/05/2018 Cbc With Differential Ord2 Lymph% 41.4 % 01/05/2018 Cbc With Differential Ord2 Delta% 11.9 % 01/05/2018 Cbc With Differential Ord2 MCH 26.4 pg 01/05/2018 Cbc With Differential Ord2 Eos% 3.4 % 01/05/2018 Cbc With Differential Ord2 MCHC 32.2 pg 01/05/2018 Cbc With Differential Ord2 PLT 342 K/ul 01/05/2018 Cbc With Differential Ord2 Baso% 0.8 % 01/05/2018 Cbc With Differential Ord2 RDW 17.0 % 01/05/2018 Cbc With Differential Ord2 Neut ABS# 2.14 K/ul 01/05/2018 Cbc With Differential Ord2 Lymph ABS# 2.08 K/ul 01/05/2018 Cbc With Differential Ord2 Delta ABS# 0.6 K/ul 01/05/2018 Cbc With Differential Ord2 Eos ABS# 0.2 K/ul 01/05/2018 Cbc With Differential Ord2 Baso ABS# 0.0 K/ul 01/05/2018 Tibc Ord40 Iron 33 ug/dl 12/06/2017 Tibc Ord40 UIBC 431 ug/dL 12/06/2017 Tibc Ord40 TIBC 464 ug/dL 12/06/2017 Tibc Ord40 Fe-%Sat 7.1 % 12/06/2017 Ferritin Ord22 FERRITIN 5.7 ng/mL 12/06/2017 Free T4 Loi261 FREE T4 1.82 ng/dL 12/01/2017 Tsh Ord6 [...] 83.3 fl 12/01/2017 Cbc With Differential Ord2 Delta% 10.6 % 12/01/2017 Cbc With Differential Ord2 MCH 27.0 pg 12/01/2017 Cbc With Differential Ord2 MCHC 32.4 pg 12/01/2017 Cbc With Differential Ord2 Eos% 4.1 % 12/01/2017 Cbc With Differential Ord2 PLT 345 K/ul 12/01/2017 Cbc With Differential Ord2 Baso% 1.0 % 12/01/2017 Cbc With Differential Ord2 RDW 15.3 % 12/01/2017 Cbc With Differential Ord2 Neut ABS# 1.58 K/ul 12/01/2017 Cbc With Differential Ord2 Lymph ABS# 1.92 K/ul 12/01/2017 Cbc With Differential Ord2 Delta ABS# 0.4 K/ul 12/01/2017 Cbc With Differential Ord2 Eos ABS# 0.2 K/ul 12/01/2017 Cbc With Differential Ord2 Baso ABS# 0.0 K/ul 12/01/2017 Comp Metabolic Zpt911 NA 136 mEq/L 12/01/2017 Comp Metabolic Fgj383 K 4.6 mEq/L 12/01/2017 Comp Metabolic Vfx313 CL 102 mEq/L 12/01/2017 Comp Metabolic Vpj897 CO2 27.0 mEq/L 12/01/2017 Comp Metabolic Fsi196 AN ION GAP 12 12/01/2017 Comp Metabolic Ifd112 GL UCOSE 90 mg/dL 12/01/2017 Comp Metabolic Kvo078 Cr eat 0.7 mg/dL 12/01/2017 Comp Metabolic Bav757 eG FR 123 ml/min/1.73m2 03/2018 Comp Metabolic Wms756 BUN 4 mg/dL 12/01/2017 Comp Metabolic Ijv262 B/ C Ratio 5.6 Ratio 12/01/2017 Comp Metabolic Bia321 CA LCIUM 9.0 mg/dL 12/01/2017 Comp Metabolic Ddl943 AL K PHOS 67 U/L 12/01/2017 Comp Metabolic Dqs044 T(SGOT) 30 U/L 12/01/2017 Comp Metabolic Udu403 AL T(SGPT) 29 U/L 12/01/2017 Comp Metabolic Ndt443 BI LI T 0.3 mg/dL 12/01/2017 Comp Metabolic Ofq205 AL BUMIN 4.1 g/dL 12/01/2017 Comp Metabolic Mdq249 TP RO 6.1 g/dL 12/01/2017 Comp Metabolic Bzd975 GL OB 2.0 g/dL 12/01/2017 Comp Metabolic Jxk154 A/ G Ratio 2.0 Ratio 12/01/2017 Comp Metabolic Zvc771 Os mo 268 mOsmo 12/01/2017 Comp Metabolic Vdq301 NA 136 mEq/L 02/16/2016 Comp Metabolic Hyk892 K 4.2 mEq/L 02/16/2016 Comp Metabolic Jkv432 CL 104 mEq/L 02/16/2016 Comp Metabolic Mlw258 CO2 20.0 mEq/L 02/16/2016 Comp Metabolic Ndh134 AN ION GAP 16 02/16/2016 Comp Metabolic Mcu349 GL UCOSE 71 mg/dL 02/16/2016 Comp Metabolic Ihk258 Cr eat 0.8 mg/dL 02/16/2016 Comp Metabolic Zpf983 eG FR 113 ml/min/1.73m2 01/26 Comp Metabolic Nae468 BUN 7 mg/dL 02/16/2016 Comp Metabolic Yih295 B/ C Ratio 9.1 Ratio 02/16/2016 Comp Metabolic Jlw693 CA LCIUM 9.4 mg/dL 02/16/2016 Comp Metabolic Gou480 AL K PHOS 57 U/L 02/16/2016 Comp Metabolic Lzm350 T(SGOT) 30 U/L 02/16/2016 Comp Metabolic Grp382 AL T(SGPT) 27 U/L 02/16/2016 Comp Metabolic Lst535 BI LI T 0.2 mg/dL 02/16/2016 Comp Metabolic Ftx864 AL BUMIN 4.4 g/dL 02/16/2016 Comp Metabolic Ztu272 TP RO 6.5 g/dL 02/16/2016 Comp Metabolic War959 GL OB 2.1 g/dL 02/16/2016 Comp Metabolic Qum417 A/ G Ratio 2.1 Ratio 02/16/2016 Comp Metabolic Zoq217 Os mo 268 mOsmo 02/16/2016 Free T4 Pfh271 FREE T4 1.20 ng/dL 02/16/2016 Cbc With Differential Ord2 WBC 5.32 K/ul 02/16/2016 Cbc With Differential Ord2 RBC 4.24 M/ul 02/16/2016 Cbc With Differential Ord2 HGB 12.8 g/dl 02/16/2016 Cbc With Differential Ord2 Neut% 60.1 % 02/16/2016 Cbc With Differential Ord2 HCT 38.4 % 02/16/2016 Cbc With Differential Ord2 MCV 90.6 fl 02/16/2016 Cbc With Differential Ord2 Lymph% 28.2 % 02/16/2016 Cbc With Differential Ord2 Delta% 9.6 % 02/16/2016 Cbc With Differential Ord2 [...] 1.50 K/ul 02/16/2016 Cbc With Differential Ord2 Delta ABS# 0.5 K/ul 02/16/2016 Cbc With Differential [...] bilaterally 07/05/2018 None Full Exam - General 1995 Respiratory respiratory effort/rhythm Overall: no retractions 07/05/2018 [...] rate 12/01/2017 None Full Exam - General 1995 Cardiovascular [...] 1: 94/62 Code: 8480-6 BMI: 36.8 Code: 61828-2 Heart Rate 1: 88 bpm Height: 5'6" SpO2: 99% Weight: 228 lbs 05/04/2018 Blood Pressure 1: 110/80 Code: 8480-6 BMI: 35.5 Code: 77981-2 Heart Rate 1: 80 bpm Height: 5'6" SpO2: 99% Weight: 220 lbs 03/28/2018 Blood Pressure 1: 110/72 Code: 8480-6 BMI: 35.0 Code: 40207-5 Heart Rate 1: 80 bpm Height: 5'6" SpO2: 98% Temperature: 36.2 (C ) / 97.1 (F) Weight: 217 lbs 02/27/2018 Blood Pressure 1: 136/76 Code: 8480-6 BMI: 36.0 Code: 08231-1 Heart Rate 1: 80 bpm Height: 5'6" SpO2: 98% Weight: 223 lbs 12/01/2017 Blood Pressure 1: 132/72 Code: 8480-6 BMI: 33.4 Code: 35279-7 Heart Rate 1: 82 bpm Height: 5'6" SpO2: 97% Weight: 207 lbs 09/29/2017 Blood Pressure 1: 124/68 Code: 8480-6 BMI: 32.1 Code: 36397-7 Heart Rate 1: 77 bpm Height: 5'6" SpO2: 98% Weight: 199 lbs 08/11/2017 Blood Pressure 1: 154/82 Code: 8480-6 BMI: 31.6 Code: 43947-5 Heart Rate 1: 75 bpm Height: 5'6" SpO2: 98% Weight: 196 lbs 06/09/2017 Blood Pressure 1: 148/88 Code: 8480-6 BMI: 28.6 Code: 86143-5 Heart Rate 1: 88 bpm Height: 5'6" SpO2: 98% Weight: 177 lbs 04/07/2017 Blood Pressure 1: 140/84 Code: 8480-6 BMI: 30.3 Code: 78674-0 Heart Rate 1: 81 bpm Height: 5'6" SpO2: 99% Weight: 188 lbs 11/17/2016 Blood Pressure 1: 130/72 Code: 8480-6 Heart Rate 1: 63 bpm Height: SpO2: 93% Weight: 11/10/2016 Blood Pressure 1: 128/86 Code: 8480-6 BMI: 30.3 Code: 11034-6 Heart Rate 1: 84 bpm Height: 5'6" SpO2: 96% Weight: 188 lbs 10/14/2016 Heigh t: 5'6" 09/16/2016 Blood Pressure 1: 130/80 Code: 8480-6 BMI: 30.3 Code: 10023-4 Heart Rate 1: 67 bpm Height: 5'6" SpO2: 99% Weight: 188 lbs 08/19/2016 Blood Pressure 1: 110/62 Code: 8480-6 BMI: 29.9 Code: 08911-4 Heart Rate 1: 70 bpm Height: 5'6" SpO2: 97% Weight: 185 lbs 06/17/2016 Blood Pressure 1: 112/68 Code: 8480-6 BMI: 27.6 Code: 35335-7 Heart Rate 1: 61 bpm Height: 5'6" SpO2: 98% Weight: 171 lbs 05/12/2016 Blood Pressure 1: 130/76 Code: 8480-6 BMI: 29.7 Code: 48773-4 Heart Rate 1: 103 bpm Height: 5'6" SpO2: 98% Weight: 184 lbs 02/16/2016 Blood Pressure 1: 140/82 Code: 8480-6 BMI: 28.7 Code: 64600-9 Heart Rate 1: 66 bpm Height: 5'6" SpO2: 99% Weight: 178 lbs 11/17/2015 Blood Pressure 1: 120/74 Code: 8480-6 BMI: 29.4 Code: 37087-0 Heart Rate 1: 90 bpm Height: 5'6" SpO2: 94% Weight: 182 lbs 08/28/2015 Blood Pressure 1: 128/76 Code: 8480-6 BMI: 27.9 Code: 25669-7 Heart Rate 1: 80 bpm Height: 5'6" SpO2: 98% Weight: 173 lbs 05/28/2015 Blood Pressure 1: 122/70 Code: 8480-6 BMI: 27.0 Code: 27799-9 Heart Rate 1: 74 bpm Height: 5'6" SpO2: 98% Weight: 167 lbs 04/23/2015 Blood Pressure 1: 110/60 Code: 8480-6 BMI: 27.0 Code: 99728-9 Heart Rate 1: 68 bpm Height: 5'6" [...] fatigue Quality constant 07/05/2018 None 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 P ATIENT, LEVEL IV Diagnosis: Hypothyroidism, unspecified[ICD10: E03.9] Diagnosis: Major depressive disorder, recurrent, moderate[ICD10: F33.1] Diagnosis: Chronic pain syndrome[ICD10: G89.4] Diagnosis: Other male erectile dysfunction[ICD10: N52.8] Diagnosis: Other fatigue[ICD10: R53.83] Diagnosis: Encounter for screening for malignant neoplasm of prostate[ICD10: Z12.5] Leydi Jacobo MD, [facility] CPT-4: 39686 07/05/2018 ([id number]) 58096 EST. P ATIENT, LEVEL IV Diagnosis: Chronic pain syndrome[ICD10: G89.4] Diagnosis: Hypothyroidism, unspecified[ICD10: E03.9] Diagnosis: Major depressive disorder, recurrent, moderate[ICD10: F33.1] Leydi Jacobo MD, [facility] CPT-4: 08423 05/04/2018 [id number] EST. PATIENT, LEVEL IV Diagnosis: Melena[ICD10: K92.1] Diagnosis: Other malaise[ICD10: R53.81] Diagnosis: Other fatigue[ICD10: R53.83] Diagnosis: Pain in unspecified joint[ICD10: M25.50] Diagnosis: Diarrhea, unspecified[ICD10: R19.7] Denae Jacobo MD, [facility] CPT-4: 84404 03/28/2018 ([id number]) 84234 EST. P ATIENT, LEVEL IV Diagnosis: Chronic pain syndrome[ICD10: G89.4] Diagnosis: Hypothyroidism, unspecified[ICD10: E03.9] Diagnosis: Other obesity due to excess calories[ICD10: E66.09] Diagnosis: Major depressive disorder, recurrent, moderate[ICD10: F33.1] Diagnosis: Obstructive sleep apnea (adult) (pediatric)[ICD10: G47.33] Leydi Jacobo MD, [facility] CPT-4: 45556 02/27/2018 [id number] EST. PATIENT, LEVEL IV Diagnosis: Other specified hypothyroidism[ICD10: E03.8] Diagnosis: Chronic pain syndrome[ICD10: G89.4] Diagnosis: Major depressive disorder, recurrent, moderate[ICD10: F33.1] Denae Jacobo MD, [facility] CPT-4: 68660 12/01/2017 ([id number]) 50650 EST. P ATIENT, LEVEL IV Diagnosis: Chronic pain syndrome[ICD10: G89.4] Diagnosis: Alcohol dependence, uncomplicated[ICD10: F10.20] Diagnosis: Major depressive disorder, recurrent, moderate[ICD10: F33.1] Leydi Jacobo MD, [facility] CPT-4: 71924 09/29/2017 ([id number]) 43344 EST. P ATIENT, LEVEL IV Diagnosis: Chronic pain syndrome[ICD10: G89.4] Diagnosis: Alcohol dependence, uncomplicated[ICD10: F10.20] Diagnosis: Major depressive disorder, recurrent, moderate[ICD10: F33.1] Leydi Jacobo MD, [facility] CPT-4: 59516 08/11/2017 ([id number]) 15833 EST. P ATIENT, LEVEL III Diagnosis: Chronic pain syndrome[ICD10: G89.4] Diagnosis: Major depressive disorder, recurrent, moderate[ICD10: F33.1] Leydi Jacobo MD, [facility] CPT-4: 62871 06/09/2017 ([id number]) 00273 EST. P ATIENT, LEVEL III Diagnosis: Chronic pain syndrome[ICD10: G89.4] Diagnosis: Pain in left knee[ICD10: M25.562] Leydi Jacobo MD, [facility] CPT- 4: 75734 04/07/2017 [id number] EST. PATIENT, LEVEL II Diagnosis: Superficial foreign body of left upper arm, initial encounter[ICD10: S40.852A] Diagnosis: Cellulitis of left upper limb[ICD10: L03.114] Leydi Jacobo MD, [facility] CPT-4: 84744 11/17/2016 10401 EST. PATIENT, LEVEL II Diagnosis: Cellulitis of left upper limb[ICD10: L03.114] Leydi Jacobo MD, [facility] CPT-4: 60843 11/10/2016 ([id number]) 50042 EST. P ATIENT, LEVEL III Diagnosis: Chronic pain syndrome[ICD10: G89.4] Diagnosis: Major depressive disorder, recurrent, moderate[ICD10: F33.1] Leydi Jacobo MD, [facility] CPT-4: 32308 10/14/2016 [id number] EST. PATIENT, LEVEL IV Diagnosis: Psychophysiologic insomnia[ICD10: F51.04] Diagnosis: Major depressive disorder, recurrent, moderate[ICD10: F33.1] Diagnosis: Alcohol dependence, uncomplicated[ICD10: F10.20] Diagnosis: Chronic pain syndrome[ICD10: G89.4] Leydi Jacobo MD, [facility] CPT-4: 01656 09/16/2016 ([id number]) 59879 EST. P ATIENT, LEVEL III Diagnosis: Pain in left shoulder[ICD10: M25.512] Diagnosis: Major depressive disorder, recurrent, moderate[ICD10: F33.1] Diagnosis: Psychophysiologic insomnia[ICD10: F51.04] Leydi Jacobo MD, [facility] CPT-4: 13153 08/19/2016 ([id number]) 13262 EST. P ATIENT, LEVEL III Diagnosis: Gastro-esophageal reflux disease without esophagitis[ICD10: K21.9] Diagnosis: Hypothyroidism, unspecified[ICD10: E03.9] Leydi Jacobo MD, [facility] CPT-4: 99767 06/17/2016 ([id number]) 29941 EST. P ATIENT, LEVEL IV Diagnosis: Gastro-esophageal reflux disease without esophagitis[ICD10: K21.9] Diagnosis: Hypothyroidism, unspecified[ICD10: E03.9] Diagnosis: Major depressive disorder, recurrent, moderate[ICD10: F33.1] Leydi Jacobo MD, [facility] CPT-4: 48953 05/12/2016 ([id number]) 76574 EST. P ATIENT, LEVEL III Diagnosis: Cervicalgia[ICD10: M54.2] Diagnosis: Hypothyroidism, unspecified[ICD10: E03.9] Diagnosis: Other male erectile dysfunction[ICD10: N52.8] Leydi Jacobo MD, [facility] CPT-4: 84687 02/16/2016 ([id number]) 17700 EST. P ATIENT, LEVEL III Diagnosis: Lumbago with sciatica, unspecified side[ICD10: M54.40] Diagnosis: Other male erectile dysfunction[ICD10: N52.8] Leydi Jacobo MD, [facility] CPT-4: 48273 11/17/2015 ([id number]) 04235 EST. P ATIENT, LEVEL III Diagnosis: Lumbago with sciatica, unspecified side[ICD10: M54.40] Diagnosis: Hypothyroidism, unspecified[ICD10: E03.9] Diagnosis: Other male erectile dysfunction[ICD10: N52.8] Leydi Jacobo MD, [facility] CPT-4: 33264 08/28/2015 ([id number]) 45266 EST. P ATIENT, LEVEL III Diagnosis: Back pain, chronic[ICD9: 724.5] Diagnosis: Depression[ICD9: 311] Diagnosis: Hypothyroid[ICD9: 244.9] Diagnosis: Bilateral calf pain[ICD9: 729.5] Julieta Jacobo MD, [facility] CPT-4: 38224 05/28/2015 ([id number]) OFFICE VISI T, NEW - LEVEL 4 Diagnosis: Back pain, chronic[ICD9: 724.5] Diagnosis: Depression[ICD9: 311] Diagnosis: Hypothyroid[ICD9: 244.9] [facility] CPT-4: 42206 04/23/2015 Plan of Care Planned Activity Notes [...] exposure. No change in current medications. Fatigue-weight tzho-AZ-rlzdw labs including testosterone level 07/05/2018 Visit Plan: [...] exposure. No change in current medications. Fatigue-weight apkn-VQ-addih labs including testosterone level 07/05/2018 Appointment: Leydi Hightower WPtel: [address] [place], [place] [phone] [place] (15 min) Moderate 07/05/2018 Patient Education: [...] BID 05/04/2018 Appointment: Leydi Hightower WPtel: [phone] [phone] (15 min) Moderate 05/04/2018 Patient Education: Patient [...] pain. 03/28/2018 Appointment: [phone] [phone] (30 min) Complex 03/28/2018 Appointment: Nurse [...] this time. 02/27/2018 Appointment: Leydi Hightower WPtel: [phone] [phone] (15 min) Moderate 02/27/2018 Patient Education: Patient [...] of control. 12/01/2017 Appointment: [facility] [phone] [facility] [place] (30 min) Complex 12/01/2017 Patient Education: [...] treatment 09/29/2017 Appointment: Leydi Hightower WPtel: [phone] [phone] (30 min) Complex 09/29/2017 Patient Education: Patient [...] cons ider 08/11/2017 Appointment: Leydi Hightower WPtel: [phone] (30 min) Complex 08/11/2017 Patient Education: Patient [...] medications. 06/09/2017 Appointment: Leydi Hightower WPtel: [facility]5 [phone] (30 min) Complex 06/09/2017 Patient Education: Patient [...] completely resolve 11/17/2016 Appointment: Leydi Hightower WPtel: [address] [place], [place] [phone] (30 min) Complex 11/17/2016 Patient Education: Patient [...] in pain. 11/10/2016 Appointment: Leydi Hightower WPtel: [address] [place], [place] [phone] (30 min) Complex 11/10/2016 Patient Education: Patient [...] of plan. 10/14/2016 Appointment: Leydi Hightower WPtel: [address] [place], [place] [phone] (30 min) Complex 10/14/2016 Patient Education: Patient [...] will try 09/16/2016 Appointment: [phone] [phone] (30 min) Complex 09/16/2016 Patient Education: Patient Medication Summary Completed 09/16/2016 Visit Plan: Left shoulder and elbow pain-xray shoulder and elbow Gegjcsiwai-dvwnciqa-tmmohgnnwzrw-d/c trazodone-start remeron at bedtime Pt has been [...] patient. 08/19/2016 Appointment: Leydi Hightower WPtel: [phone] (30 min) Complex 08/19/2016 Patient Education: [...] Completed 06/17/2016 Appointment: [facility]el[facility] [phone] [phone] (30 min) Complex 06/09/2016 Visit Plan: [...] control. 05/12/2016 Appointment: [facility]el[facility] [phone] [phone] (30 min) Complex 05/12/2016 Patient Education: [...] office. 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 Chronic Pain Syndrome [...] of control. GERD-increase protonix to BID . Chronic pain-manag ed by Dr Perez-no [...] exam negative. Check D-Dimer today in office. Get Immodium over counter for loose stools [...] exposure. No change in current medications. Fatigue-weight zhiv-TV-pvjxa labs including testosterone level . Chronic Pain [...] exposure. No change in current medications. Fatigue-weight yrut-NC-lcdia labs including testosterone level . Chronic Pain [...] based on previous levels of control. . Esophageal Reflux - the patient has [...] based on previous levels of control. . Thorn left forearm lesion removed today-instructed patient on wound care-continue anti biotic twice daily for 1 more week-call if symptoms do not completely resolve STOP TRAZODONE START REMERON AT BEDTIME . Left shoulder and elbow pain-xray shou lder and elbow Sjevjclbpo-mcnbrbjr-dzxvniydwsoc-d/c trazodone-start remeron at bedtime Pt has been [...] free x 11 days-attending outpatient treatment . Neck Pain- pt to s tart [...]
--- OUTSIDE RECORDS SUMMARY | 2020-03-17 15:12 | XMS REPORT | CCD ---
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 Name Role Phone PP Unavailable CCM Unavailable Summary Purpose Interface Exchange Insurance Providers Payer name Policy type / Coverage type Covered democrat ID Effective Begin Date Effective End Date WPS Medicare Part B Medicare Part B [id number] Unknown [facility] ica Part B [id number] Un known Family history Father Diagnosis Age At Onset Colon cancer Unknown Social History Social History Element Codes Description Effective Dates Marital status Unknown D ivorced 04/23/[address]: 305700203 Never smoker 04/23/[address]: 223942 Currently drinks alcohol occasionally drinks 04/23/2015 Allergies, [...] Stop Date Sta tus Fill Instructions levothyroxine 175 mc g tablet RxNorm: 918195 1 Tablet(s) PO daily 07/11/2018 11/07/2018 Active Vitamin D2 50,000 un it capsule RxNorm: 6269409 1 Capsule(s) PO QW 07/11/2018 10/02/2018 Active trazodone 50 mg tablet RxNorm: 179510 TAKE ONE TABLET BY MOUTH EVERY NIGHT AT BEDTIME AND ONE-HALF TABLET BY MOUTH NEEDED 07/11/2018 08/19/2018 Active Vitamin D2 50,000 un it capsule RxNorm: 3988799 1 Capsule(s) PO QW 07/11/2018 07/10/2018 Inactive morphine 30 mg table t, crush resistant, extended release RxNorm: 2244766 1 Tablet(s) PO BID 07/05/2018 09/02/2018 Active oxymorphone 5 mg tablet RxNorm: 455709 1 Tablet(s) PO Q6 PRN 07/05/2018 09/02/2018 Active Remeron 15 mg tablet RxNorm: 431509 TAKE ONE TABLET BY MOUTH EVERY NIGHT AT BEDTIME 06/27/2018 09/24/2018 Active bupropion HCl XL 300 mg 24 hr tablet, extended release RxNorm: 993167 TAKE ONE TABLET BY MOUTH DAILY 06/27/2018 12/23/2018 Active tizanidine 4 mg tablet RxNorm: 386627 TAKE ONE TABLET BY MOUTH THREE TIMES A D AY NEEDED 06/20/2018 08/18/2018 Active doxycycline hyclate 100 mg tablet RxNorm: 7877264 1 Tablet(s) PO BID 06/18/2018 07/01/2018 Inactive Protonix 40 mg table t,delayed release RxNorm: 612605 TAKE ONE TABLET BY [facility] DAILY 06/11/2018 08/09/2018 Ac tive doxycycline hyclate 100 mg tablet RxNorm: 8454313 1 Tablet(s) PO BID 05/22/2018 06/04/2018 Inactive baclofen 10 mg tablet RxNorm: 694394 TAKE ONE TABLET BY MOUTH THREE TIMES A D AY NEEDED 05/14/2018 07/12/2018 Active diclofenac sodium 75 mg tablet,delayed release RxNorm: 415019 TAKE ONE TABLET BY [facility] TWICE A DAY 05/07/2018 10/03/2018 Active oxymorphone 5 mg tablet RxNorm: 062995 1 Tablet(s) PO Q6 PRN 05/04/2018 07/02/2018 Inactive morphine 30 mg table t, crush resistant, extended release RxNorm: 3128975 1 Tablet(s) PO BID 05/04/2018 07/02/2018 Inactive doxycycline hyclate 100 mg tablet RxNorm: 914264 1 Tablet(s) PO BID 04/24/2018 04/23/2018 Inactive doxycycline hyclate 100 mg tablet RxNorm: 5934338 1 Tablet(s) PO BID 04/24/2018 05/03/2018 Inactive baclofen 10 mg tablet RxNorm: 457759 TAKE ONE TABLET BY MOUTH THREE TIMES A D AY NEEDED 04/13/2018 05/12/2018 Inactive trazodone 50 mg tablet RxNorm: 263158 TAKE ONE TABLET BY MOUTH EVERY NIGHT AT BEDTIME AND ONE-HALF TABLET BY MOUTH NEEDED 04/09/2018 06/07/2018 Inactive Questran 4 gram powd er for susp in a packet RxNorm: 386188 1 packet PO BID 04/06/2018 06/04/2018 In active Questran 4 gram powd er for susp in a packet RxNorm: 992076 1 packet PO BID 04/06/2018 04/05/2018 In active Carafate 1 gram tablet RxNorm: 308990 1 Tablet(s) PO AC & HS as needed for hea rtburn 03/28/2018 04/26/2018 Inactive baclofen 10 mg tablet RxNorm: 017766 TAKE ONE TABLET BY MOUTH THREE TIMES A D AY NEEDED 03/16/2018 04/12/2018 Inactive Protonix 40 mg table t,delayed release RxNorm: 428301 TAKE ONE TABLET BY MO UTH DAILY 03/16/2018 06/10/2018 In active Belviq XR 20 mg tabl et,extended release RxNorm: 1939491 1 Tablet(s) PO daily 02/27/2018 04/27/2018 In active oxymorphone 5 mg tablet RxNorm: 363604 1 Tablet(s) PO Q6 PRN 02/27/2018 04/27/2018 Inactive morphine 30 mg table t, crush resistant, extended release RxNorm: 9222331 1 Tablet(s) PO BID 02/27/2018 04/27/2018 Inactive levothyroxine 100 mc g tablet RxNorm: 844752 1 Tablet(s) PO daily 02/27/2018 07/10/2018 Inactive take with 88mcg to = 188mcg daily levothyroxine 88 mcg tablet RxNorm: 150875 1 Tablet(s) PO daily 02/27/2018 07/10/2018 Inactive take with 100mcg to = 188mcg daily morphine 30 mg table t, crush resistant, extended release RxNorm: 5491255 1 Tablet(s) PO BID 02/14/2018 02/26/2018 Inactive levothyroxine 200 mc g tablet RxNorm: 521135 Tablet(s) TAKE ONE TA BLET BY MOUTH DAILY 01/18/2018 02/26/2018 Inactive Updated script baclofen 10 mg tablet RxNorm: 380206 Tablet(s) TAKE ONE TABLET BY MOUTH THREE TIMES A DAY NEEDED 01/15/2018 02/13/2018 Inactive morphine 30 mg table t, crush resistant, extended release RxNorm: 4710654 1 Tablet(s) PO BID 01/15/2018 02/13/2018 Inactive tizanidine 4 mg tablet RxNorm: 563020 TAKE ONE TABLET BY MOUTH THREE TIMES A D AY NEEDED 01/02/2018 04/01/2018 Inactive Request already responded t o by other means (e.g. phone or fax) bupropion HCl XL 300 mg 24 hr tablet, extended release RxNorm: 566993 TAKE ONE TABLET BY MOUTH DAILY 12/29/2017 06/26/2018 Inactive Tamiflu 75 mg capsule RxNorm: 190464 1 Capsule(s) PO BID 12/27/2017 12/31/2017 Inactive Tamiflu 75 mg capsule RxNorm: 901598 1 Capsule(s) PO BID 12/27/2017 12/26/2017 Inactive tizanidine 4 mg tablet RxNorm: 253412 1 Tablet(s) PO TID as needed 12/25/2017 01/01/2018 Inactive levothyroxine 175 mc g tablet RxNorm: 471881 1 Tablet(s) PO daily 12/14/2017 12/13/2017 Inactive levothyroxine 175 mc g tablet RxNorm: 505695 1 Tablet(s) PO daily 12/14/2017 01/17/2018 Inactive baclofen 10 mg tablet RxNorm: 002528 Tablet(s) TAKE ONE TABLET BY MOUTH THREE TIMES A DAY NEEDED 12/13/2017 01/11/2018 Inactive baclofen 10 mg tablet RxNorm: 020651 TAKE ONE TABLET BY MOUTH THREE TIMES A D AY NEEDED 12/13/2017 12/12/2017 Inactive morphine 30 mg table t, crush resistant, extended release RxNorm: 1920998 1 Tablet(s) PO BID 12/12/2017 01/14/2018 Inactive clonazepam 1 mg tablet RxNorm: 000386 1/2 Tablet(s) PO daily 12/01/2017 08/27/2018 Active trazodone 50 mg tablet RxNorm: 243466 1/2 to 1 Tablet(s) QHS as needed 12/01/2017 03/30/2018 In active Opana ER 15 mg table t, crush resistant, extended release RxNorm: 017373 1 Tablet(s) PO Q12H 12/01/2017 02/13/2018 Inactive oxymorphone 5 mg tablet RxNorm: 781927 1 Tablet(s) PO Q6 PRN 12/01/2017 02/26/2018 Inactive Remeron 15 mg tablet RxNorm: 977033 Tablet(s) TAKE ONE TABLET BY MOUTH EVERY NIGHT AT BEDTIME 12/01/2017 02/28/2018 Inactive trazodone 50 mg tablet RxNorm: 878944 1/2 Tablet(s) as needed 1 Tablet(s) PO Q HS 12/01/2017 11/30/2017 In active clonazepam 1 mg tablet RxNorm: 668218 1/2 Tablet(s) PO daily 11/30/2017 11/30/2017 Inactive Remeron 15 mg tablet RxNorm: 421572 TAKE ONE TABLET BY MOUTH EVERY NIGHT AT BEDTIME 11/29/2017 11/30/2017 Inactive levothyroxine 200 mc g tablet RxNorm: 209739 TAKE ONE TABLET BY [facility] DAILY 11/15/2017 12/13/2017 In active baclofen 10 mg tablet RxNorm: 019398 TAKE ONE TABLET BY MOUTH THREE TIMES A D AY NEEDED 11/07/2017 12/06/2017 Inactive diclofenac sodium 75 mg tablet,delayed release RxNorm: 536362 1 Tablet(s) PO BID 11/07/2017 05/05/2018 In active liothyronine 5 mcg t ablet RxNorm: 295557 TAKE ONE TABLET BY [facility] DAILY 10/27/2017 07/23/2018 Ac tive tizanidine 4 mg tablet RxNorm: 214357 1 Tablet(s) PO TID as needed 10/18/2017 12/16/2017 Inactive oxymorphone 5 mg tablet RxNorm: 041242 1 Tablet(s) PO Q6 PRN 09/29/2017 11/27/2017 Inactive morphine 30 mg table t, crush resistant, extended release RxNorm: 3808529 1 Tablet(s) PO BID 09/29/2017 11/28/2017 Inactive baclofen 10 mg tablet RxNorm: 071659 1 Tablet(s) PO TID as needed 09/11/2017 10/10/2017 Inactive baclofen 10 mg tablet RxNorm: 417645 1 Tablet(s) PO TID as needed 08/11/2017 09/09/2017 Inactive Opana ER 15 mg table t, crush resistant, extended release RxNorm: 638363 1 Tablet(s) PO Q12H 08/11/2017 09/28/2017 Inactive Remeron 15 mg tablet RxNorm: 046323 TAKE ONE TABLET BY MOUTH EVERY NIGHT AT BEDTIME 08/02/2017 10/30/2017 Inactive oxymorphone 5 mg tablet RxNorm: 443222 1 Tablet(s) PO Q6 PRN 08/02/2017 09/28/2017 Inactive Opana ER 5 mg tablet , crush resistant, extended release RxNorm: 389399 1 Tablet(s) PO Q6 PRN 08/01/2017 08/10/2017 Inactive Protonix 40 mg table t,delayed release RxNorm: 989260 TAKE ONE TABLET BY [facility] DAILY 06/26/2017 10/23/2017 In active Protonix 40 mg table t,delayed release RxNorm: 117792 TAKE ONE TABLET BY [facility] DAILY 06/26/2017 06/25/2017 In active bupropion HCl XL 300 mg 24 hr tablet, extended release RxNorm: 919868 TAKE ONE TABLET BY MOUTH DAILY 06/13/2017 12/09/2017 Inactive tizanidine 4 mg tablet RxNorm: 067731 1 Tablet(s) PO TID as needed 06/13/2017 06/12/2017 Inactive tizanidine 4 mg tablet RxNorm: 206417 1 Tablet(s) PO TID as needed 06/13/2017 09/10/2017 Inactive baclofen 10 mg tablet RxNorm: 055311 1 Tablet(s) PO TID as needed 06/13/2017 07/12/2017 Inactive Opana ER 15 mg table t, crush resistant, extended release RxNorm: 252689 1 Tablet(s) PO Q12H 06/09/2017 08/07/2017 Inactive Opana ER 5 mg tablet , crush resistant, extended release RxNorm: 770993 1 Tablet(s) PO Q6 PRN 06/09/2017 07/31/2017 Inactive diclofenac sodium 75 mg tablet,delayed release RxNorm: 672106 1 Tablet(s) PO BID 06/09/2017 09/06/2017 In active clonazepam 1 mg tablet RxNorm: 272439 1/2 Tablet(s) PO daily 05/24/2017 11/18/2017 Inactive bupropion HCl XL 300 mg 24 hr tablet, extended release RxNorm: 316115 TAKE ONE TABLET BY MOUTH DAILY 03/16/2017 06/12/2017 Inactive clonazepam 1 mg tablet RxNorm: 613901 1/2 Tablet(s) PO daily 02/22/2017 05/18/2017 Inactive Remeron 15 mg tablet RxNorm: 704161 TAKE ONE TABLET BY MOUTH EVERY NIGHT AT BEDTIME 02/06/2017 2017 Inactive Protonix 40 mg table t,delayed release RxNorm: 649030 TAKE ONE TABLET BY MO UT DAILY 01/26/2017 06/24/2017 In active mupirocin 2 % topica l ointment RxNorm: 119515 1 Application TOP BID 01/12/2017 01/18/2017 Inactive Bactrim DS 800 mg-16 0 mg tablet RxNorm: 426400 1 Tablet(s) PO BID 11/17/2016 11/23/2016 Inactive mupirocin 2 % topica l ointment RxNorm: 593526 1 Application TOP BID 11/10/2016 11/16/2016 Inactive Bactrim DS 800 mg-16 0 mg tablet RxNorm: 376614 1 Tablet(s) PO BID 11/10/2016 11/16/2016 Inactive bupropion HCl XL 300 mg 24 hr tablet, extended release RxNorm: 631635 TAKE ONE TABLET BY MOUTH DAILY 11/07/2016 03/06/2017 Inactive liothyronine 5 mcg t ablet RxNorm: 843354 1 Tablet(s) PO daily 11/01/2016 10/26/2017 Inactive levothyroxine 200 mc g tablet RxNorm: 628280 1 Tablet(s) PO daily 10/04/2016 09/28/2017 Inactive clonazepam 1 mg tablet RxNorm: 899633 1/2 Tablet(s) PO daily 09/21/2016 03/18/2017 Inactive clonazepam 1 mg tablet RxNorm: 573914 1/2 Tablet(s) PO daily 09/16/2016 09/20/2016 Inactive Abilify 2 mg tablet RxNorm: 576423 1 Tablet(s) PO daily 09/16/2016 10/13/2016 Inactive trazodone 50 mg tablet RxNorm: 385089 1/2 Tablet(s) as needed 1 Tablet(s) PO Q HS 09/16/2016 01/13/2017 In active morphine 15 mg immed iate release tablet RxNorm: 431222 1 Tablet(s) PO Q6 PRN 09/16/2016 04/06/2017 In active baclofen 10 mg tablet RxNorm: 015715 1 Tablet(s) PO TID as needed 09/16/2016 06/12/2017 Inactive MS Contin 30 mg tabl et,extended release RxNorm: 657882 1 Tablet(s) PO Q12H 09/16/2016 04/06/2017 In active Remeron 15 mg tablet RxNorm: 668881 1 Tablet(s) PO QHS 08/19/2016 09/15/2016 Inactive levothyroxine 200 mc g tablet RxNorm: 481792 1 Tablet(s) PO daily 08/11/2016 10/03/2016 Inactive bupropion HCl XL 300 mg 24 hr tablet, extended release RxNorm: 885687 TAKE ONE TABLET BY MOUTH DAILY 08/11/2016 11/06/2016 Inactive Protonix 40 mg table t,delayed release RxNorm: 697011 1 Tablet(s) PO daily 06/17/2016 12/13/2016 In active bupropion HCl XL 300 mg 24 hr tablet, extended release RxNorm: 739885 1 Tablet(s) PO daily 05/12/2016 07/10/2016 Inactive bupropion HCl XL 300 mg 24 hr tablet, extended release RxNorm: 354140 1 Tablet(s) PO daily 05/12/2016 05/11/2016 Inactive Cialis 20 mg tablet RxNorm: 417986 1 Tablet(s) PO PRN 02/16/2016 No Stop Date Active not more than 1 tab in 24 hours morphine ER 10 mg ca psule,extended release pellets RxNorm: 598346 1 Tablet(s) PO Q6 as needed 02/16/2016 11/16/2016 Inactive clonazepam 1 mg tablet RxNorm: 493270 1/2 Tablet(s) PO BID 02/16/2016 09/15/2016 Inactive trazodone 50 mg tablet RxNorm: 003391 1/2 Tablet(s) as needed 1 Tablet(s) PO Q HS 02/16/2016 08/18/2016 In active trazodone 50 mg tablet RxNorm: 358926 1/2 Tablet(s) 1 Tablet(s) PO QHS 11/17/2015 02/15/2016 In active trazodone 50 mg tablet RxNorm: 973546 1 Tablet(s) PO QHS 10/19/2015 11/16/2015 Inactive levothyroxine 200 mc g tablet RxNorm: 354336 1 Tablet(s) PO daily 10/02/2015 08/10/2016 Inactive Wellbutrin XL 150 mg 24 hr tablet, extended release RxNorm: 373992 1 Tablet(s) PO daily 10/02/2015 05/11/2016 Inactive levothyroxine 200 mc g tablet RxNorm: 020247 1 Tablet(s) PO daily 09/30/2015 10/01/2015 Inactive Wellbutrin XL 150 mg 24 hr tablet, extended release RxNorm: 120602 1 Tablet(s) PO daily 09/30/2015 10/01/2015 Inactive trazodone 50 mg tablet RxNorm: 687219 1 Tablet(s) PO QHS 09/11/2015 10/10/2015 Inactive trazodone 50 mg tablet RxNorm: 977459 1 Tablet(s) PO QHS 09/11/2015 09/10/2015 Inactive Cymbalta 30 mg capsu le,delayed release RxNorm: 903254 1 Capsule(s) PO daily 09/07/2015 11/16/2015 In active Cymbalta 60 mg capsu le,delayed release RxNorm: 681738 1 Capsule(s) PO daily 08/31/2015 08/30/2015 In active Cymbalta 30 mg capsu le,delayed release RxNorm: 624876 1 Capsule(s) PO daily take with 60mg to make 90 mg daily 08/31/2015 09/06/2015 Inactive Cymbalta 30 mg capsu le,delayed release RxNorm: 978292 1 Capsule(s) PO daily take with 60mg to make 90 mg daily 08/31/2015 08/30/2015 Inactive Cymbalta 60 mg capsu le,delayed release RxNorm: 952739 1 Capsule(s) PO daily x 7 days and then increase to 90mg daily 08/31/2015 09/07/2015 Inactive levothyroxine 200 mc g tablet RxNorm: 576010 1 Tablet(s) PO daily 08/14/2015 09/29/2015 Inactive Wellbutrin XL 150 mg 24 hr tablet, extended release RxNorm: 880521 1 Tablet(s) PO daily 07/14/2015 09/29/2015 Inactive Cialis 20 mg tablet RxNorm: 854666 1 Tablet(s) PO PRN 07/02/2015 02/15/2016 Inactive not more than 1 tab in 24 hours liothyronine 5 mcg t ablet RxNorm: 982438 1 Tablet(s) PO daily 2015 05/29/2016 Inactive clonazepam 1 mg tablet RxNorm: 952967 1 Tablet(s) PO TID 2015 02/15/2016 Inactive minocycline 50 mg ta blet RxNorm: 434863 1 Tablet(s) PO daily 2015 05/11/2016 Inactive Wellbutrin XL 150 mg 24 hr tablet, extended release RxNorm: 879608 1 Tablet(s) PO daily 04/23/2015 07/13/2015 Inactive levothyroxine 200 mc g tablet RxNorm: 448725 1 Tablet(s) PO daily 04/23/2015 08/13/2015 Inactive Aleve oral RxNorm: 382762 oral No Start Date Active Tylenol 500 mg RxNorm: oral No Start Date Active morphine ER 15 mg ta blet,extended release RxNorm: 141273 oral No Start Date 11/16/2016 Inactive Trazadone 25 mg RxNorm: 2 PO daily No Start Date 09/11/2015 Inactive diclofenac oral RxNorm: 3355 oral No Start Date 05/04/2018 Inactive clonazepam 1 mg tablet RxNorm: 622966 1 Tablet(s) PO QHS No Start Date 06/04/2015 Inactive Wellbutrin XL 150 mg 24 hr tablet, extended release RxNorm: 144772 1 Tablet(s) PO daily No Start Date 04/22/2015 Inactive minocycline 50 mg ta blet RxNorm: 941687 1 Tablet(s) PO daily No Start Date 06/04/2015 Inactive methadone 5 mg tablet RxNorm: 753215 1 Tablet(s) PO Q8 No Start Date 02/15/2016 Inactive Protonix 40 mg table t,delayed release RxNorm: 052237 Tablet(s) PO daily No Start Date 06/16/2016 Inactive Opana ER 15 mg table t, crush resistant, extended release RxNorm: 636533 1 Tablet(s) PO Q12H No Start Date 06/08/2017 Inactive MS Contin 30 mg tabl et,extended release RxNorm: 745083 1 Tablet(s) PO Q12H No Start Date 02/15/2016 Inactive Opana ER 15 mg table t, crush resistant, extended release RxNorm: 334334 1 Tablet(s) PO BID No Start Date 09/15/2016 Inactive liothyronine 5 mcg t ablet RxNorm: 881121 1 Tablet(s) PO daily No Start Date 06/04/2015 Inactive Cialis 20 mg tablet RxNorm: 682260 1 Tablet(s) PO PRN No Start Date 07/01/2015 Inactive not more than 1 tab in 24 hours baclofen 10 mg tablet RxNorm: 199503 1 Tablet(s) PO TID as needed No Start Date 05/11/2016 Inactive morphine 15 mg immed iate release tablet RxNorm: 208325 1 Tablet(s) PO Q6 PRN as needed No Start Date 02/15/2016 Inactive levothyroxine 200 mc g tablet RxNorm: 801638 1 Tablet(s) PO daily No Start Date 04/22/2015 Inactive Opana ER 5 mg tablet , crush resistant, extended release RxNorm: 312244 1 Tablet(s) PO Q6 No Start Date [...] Code Result Date Vitamin D 25 Oh [id number] VITAMIN D, 25 HYDROXY 30.96 ng/mL 07/06/2018 Comp Metabolic Nmf116 NA 141 mEq/L 07/06/2018 Comp Metabolic Ahc644 K 4.2 mEq/L 07/06/2018 Comp Metabolic Lyn318 CL 103 mEq/L 07/06/2018 Comp Metabolic Ssj086 CO2 29.0 mEq/L 07/06/2018 Comp Metabolic Fmt102 AN ION GAP 13 07/06/2018 Comp Metabolic Cal088 GL UCOSE 105 mg/dL 07/06/2018 Comp Metabolic Mvn366 Cr eat 0.8 mg/dL 07/06/2018 Comp Metabolic Slc760 eG FR 101 ml/min/1.73m2 06/27 Comp Metabolic Stn698 BUN 7 mg/dL 07/06/2018 Comp Metabolic Roz841 B/ C Ratio 8.3 Ratio 07/06/2018 Comp Metabolic Wau072 CA LCIUM 9.9 mg/dL 07/06/2018 Comp Metabolic Yla349 AL K PHOS 65 U/L 07/06/2018 Comp Metabolic Eza803 T(SGOT) 21 U/L 07/06/2018 Comp Metabolic Igi645 AL T(SGPT) 31 U/L 07/06/2018 Comp Metabolic Hak110 BI LI T 0.3 mg/dL 07/06/2018 Comp Metabolic Cpw557 AL BUMIN 4.3 g/dL 07/06/2018 Comp Metabolic Iuv719 TP RO 6.4 g/dL 07/06/2018 Comp Metabolic Fqz152 GL OB 2.1 g/dL 07/06/2018 Comp Metabolic Xxe334 A/ G Ratio 2.0 Ratio 07/06/2018 Comp Metabolic Diq044 Os mo 280 mOsmo 07/06/2018 Cbc With [...] 39.5 % 07/06/2018 Cbc With Differential Ord2 [place]% 10.5 % 07/06/2018 Cbc With Differential Ord2 [...] 1.89 K/ul 07/06/2018 Cbc With Differential Ord2 [place] ABS# 0.5 K/ul 07/06/2018 Cbc With Differential Ord2 Eos ABS# 0.3 K/ul 07/06/2018 Cbc With Differential Ord2 Baso ABS# 0.0 K/ul 07/06/2018 Total Psa Ord10 PSA 0.34 ng/mL 07/06/2018 Tsh Ord6 TSH (3rd IS) 0.02 uIU/mL 07/06/2018 Testosterone Gmo896 Testo 400.6 ng/dL 07/06/2018 Free T4 Fud004 FREE T4 1.48 ng/dL 07/06/[address] Spotted Fever Igg/Igm 30249 3 PARTHA MT SPOTTED FEVER IGM EIA . 04/04/2018 [address] Spotted Fever Igg/Igm 43787 3 RMSF, IGM 0.24 index 04/04/[address] Spotted Fever Igg/Igm 72273 3 PARTHA MT SPOTTED FEVER IGG EIA FLEX . 04/04/[address] Spotted Fever Igg/Igm 10424 3 RMSF, IGG SCREEN-FLEX Equivocal 04/04/2018 Partha Mtn Spot'D Fev Igg 003657 RMSF, IGG- TITER IFA <1:64 04/04/2018 Ehrlichia Chaffeensis Antibody Igg 069990 EHRLICHIA CHAFFEENSIS IGG <1:64 04/02/2018 Ehrlichia Chaffeensis Antibody Igm 819065 EHRLICHIA CHAFFEENSIS IGM < 1:16 04/02/2018 Lymes Disease Total Antibodies With Western Blot Refle x [id number] B. BURGDORFERI, IGG/IGM 0.23 03/30/2018 Lymes Disease Total Antibodies With Western Blot Refle x [id number] 03/30/2018 Cbc With Differential Ord2 WBC 5.04 [...] 28.7 pg 03/28/2018 Cbc With Differential Ord2 [place]% 16.1 % 03/28/2018 Cbc With Differential Ord2 [...] 1.37 K/ul 03/28/2018 Cbc With Differential Ord2 [place] ABS# 0.8 K/ul 03/28/2018 Cbc With Differential Ord2 Eos ABS# 0.1 K/ul 03/28/2018 Cbc With Differential Ord2 Baso ABS# 0.0 K/ul 03/28/2018 Comp Metabolic Umr173 NA 136 mEq/L 02/16/2018 Comp Metabolic Prx499 K 3.9 mEq/L 02/16/2018 Comp Metabolic Edy514 CL 103 mEq/L 02/16/2018 Comp Metabolic Owm126 CO2 23.0 mEq/L 02/16/2018 Comp Metabolic Rzl258 AN ION GAP 14 02/16/2018 Comp Metabolic Fba829 GL UCOSE 133 mg/dL 02/16/2018 Comp Metabolic Zqe792 Cr eat 0.8 mg/dL 02/16/2018 Comp Metabolic Fpp729 eG FR 103 ml/min/1.73m2 01/26 Comp Metabolic Sph383 BUN 7 mg/dL 02/16/2018 Comp Metabolic Foh942 B/ C Ratio 8.4 Ratio 02/16/2018 Comp Metabolic Mcg040 CA LCIUM 9.3 mg/dL 02/16/2018 Comp Metabolic Kpb259 AL K PHOS 71 U/L 02/16/2018 Comp Metabolic Wad663 T(SGOT) 42 U/L 02/16/2018 Comp Metabolic Jdq868 AL T(SGPT) 69 U/L 02/16/2018 Comp Metabolic Hkl422 BI LI T 0.3 mg/dL 02/16/2018 Comp Metabolic Yko844 AL BUMIN 4.1 g/dL 02/16/2018 Comp Metabolic Xhe906 TP RO 6.3 g/dL 02/16/2018 Comp Metabolic Zbb462 GL OB 2.2 g/dL 02/16/2018 Comp Metabolic Vvg529 A/ G Ratio 1.8 Ratio 02/16/2018 Comp Metabolic Fbr440 Os mo 272 mOsmo 02/16/2018 Free T4 Svg586 FREE T4 1.85 ng/dL 02/16/2018 Ferritin Ord22 FERRITIN 161.7 ng/mL 02/16/2018 Tsh Ord6 TSH (3rd IS) 0.01 uIU/mL 02/16/2018 Test(s) Not Perfromed KMD1912 Test(s) Not Performed Test(s) Not Performed. See Below: 02/16/2018 Test(s) Not Perfromed [id number] TEST NAME CBC 02/16/2018 Test(s) Not Perfromed [id number] Rejection Reason No Suitable Specimen Receive d 02/16/2018 Test(s) Not Perfromed [id number] COMMENT Please Recollect Sample 02/16/2018 Test(s) Not Perfromed [id number] [employer] Fernando Goyal 02/16/2018 Tibc Ord40 Iron 138 [...] 26.4 pg 01/05/2018 Cbc With Differential Ord2 [place]% 11.9 % 01/05/2018 Cbc With Differential Ord2 [...] 2.08 K/ul 01/05/2018 Cbc With Differential Ord2 [place] ABS# 0.6 K/ul 01/05/2018 Cbc With Differential Ord2 Eos ABS# 0.2 K/ul 01/05/2018 Cbc With Differential Ord2 Baso ABS# 0.0 K/ul 01/05/2018 Ferritin Ord22 FERRITIN 5.7 ng/mL 12/06/2017 Tibc Ord40 Iron 33 ug/dl 12/06/2017 Tibc Ord40 UIBC 431 ug/dL 12/06/2017 Tibc Ord40 TIBC 464 ug/dL 12/06/2017 Tibc Ord40 Fe-%Sat 7.1 % 12/06/2017 Free T4 Wio195 FREE T4 1.82 ng/dL 12/01/2017 Tsh Ord6 [...] 27.0 pg 12/01/2017 Cbc With Differential Ord2 [place]% 10.6 % 12/01/2017 Cbc With Differential Ord2 [...] 1.92 K/ul 12/01/2017 Cbc With Differential Ord2 [place] ABS# 0.4 K/ul 12/01/2017 Cbc With Differential Ord2 Eos ABS# 0.2 K/ul 12/01/2017 Cbc With Differential Ord2 Baso ABS# 0.0 K/ul 12/01/2017 Comp Metabolic Uvi462 NA 136 mEq/L 12/01/2017 Comp Metabolic Wyz671 K 4.6 mEq/L 12/01/2017 Comp Metabolic Dvr131 CL 102 mEq/L 12/01/2017 Comp Metabolic Avb223 CO2 27.0 mEq/L 12/01/2017 Comp Metabolic Wkg129 AN ION GAP 12 12/01/2017 Comp Metabolic Xba192 GL UCOSE 90 mg/dL 12/01/2017 Comp Metabolic Qql664 Cr eat 0.7 mg/dL 12/01/2017 Comp Metabolic Olo921 eG FR 123 ml/min/1.73m2 03/2018 Comp Metabolic Hit129 BUN 4 mg/dL 12/01/2017 Comp Metabolic Jkl009 B/ C Ratio 5.6 Ratio 12/01/2017 Comp Metabolic Fqz663 CA LCIUM 9.0 mg/dL 12/01/2017 Comp Metabolic Pgt303 AL K PHOS 67 U/L 12/01/2017 Comp Metabolic Iqi885 T(SGOT) 30 U/L 12/01/2017 Comp Metabolic Hdy822 AL T(SGPT) 29 U/L 12/01/2017 Comp Metabolic Zua038 BI LI T 0.3 mg/dL 12/01/2017 Comp Metabolic Wyx830 AL BUMIN 4.1 g/dL 12/01/2017 Comp Metabolic Ird821 TP RO 6.1 g/dL 12/01/2017 Comp Metabolic Ysh039 GL OB 2.0 g/dL 12/01/2017 Comp Metabolic Aic057 A/ G Ratio 2.0 Ratio 12/01/2017 Comp Metabolic Dru218 Os mo 268 mOsmo 12/01/2017 Comp Metabolic Qgk929 NA 136 mEq/L 02/16/2016 Comp Metabolic Uzg431 K 4.2 mEq/L 02/16/2016 Comp Metabolic Rcu084 CL 104 mEq/L 02/16/2016 Comp Metabolic Bth249 CO2 20.0 mEq/L 02/16/2016 Comp Metabolic Gug076 AN ION GAP 16 02/16/2016 Comp Metabolic Czl937 GL UCOSE 71 mg/dL 02/16/2016 Comp Metabolic Dcb052 Cr eat 0.8 mg/dL 02/16/2016 Comp Metabolic Yfx419 eG FR 113 ml/min/1.73m2 01/26 Comp Metabolic Egf003 BUN 7 mg/dL 02/16/2016 Comp Metabolic Rxb708 B/ C Ratio 9.1 Ratio 02/16/2016 Comp Metabolic Pbo241 CA LCIUM 9.4 mg/dL 02/16/2016 Comp Metabolic Hgc782 AL K PHOS 57 U/L 02/16/2016 Comp Metabolic Oju789 T(SGOT) 30 U/L 02/16/2016 Comp Metabolic Bht442 AL T(SGPT) 27 U/L 02/16/2016 Comp Metabolic Zeu094 BI LI T 0.2 mg/dL 02/16/2016 Comp Metabolic Rxo205 AL BUMIN 4.4 g/dL 02/16/2016 Comp Metabolic Cdj149 TP RO 6.5 g/dL 02/16/2016 Comp Metabolic Jqk103 GL OB 2.1 g/dL 02/16/2016 Comp Metabolic Uki287 A/ G Ratio 2.1 Ratio 02/16/2016 Comp Metabolic Kdu842 Os mo 268 mOsmo 02/16/2016 Free T4 Jbd837 FREE T4 1.20 ng/dL 02/16/2016 Cbc With [...] 90.6 fl 02/16/2016 Cbc With Differential Ord2 [place]% 9.6 % 02/16/2016 Cbc With Differential Ord2 [...] 1.50 K/ul 02/16/2016 Cbc With Differential Ord2 [place] ABS# 0.5 K/ul 02/16/2016 Cbc With Differential [...] 1: 94/62 Code: 8480-6 BMI: 36.8 Code: 34786-3 Heart Rate 1: 88 bpm Height: 5'6" SpO2: 99% Weight: 228 lbs 05/04/2018 Blood Pressure 1: 110/80 Code: 8480-6 BMI: 35.5 Code: 88093-9 Heart Rate 1: 80 bpm Height: 5'6" SpO2: 99% Weight: 220 lbs 03/28/2018 Blood Pressure 1: 110/72 Code: 8480-6 BMI: 35.0 Code: 84271-1 Heart Rate 1: 80 bpm Height: 5'6" SpO2: 98% Temperature: 36.2 (C ) / 97.1 (F) Weight: 217 lbs 02/27/2018 Blood Pressure 1: 136/76 Code: 8480-6 BMI: 36.0 Code: 87841-7 Heart Rate 1: 80 bpm Height: 5'6" SpO2: 98% Weight: 223 lbs 12/01/2017 Blood Pressure 1: 132/72 Code: 8480-6 BMI: 33.4 Code: 25487-8 Heart Rate 1: 82 bpm Height: 5'6" SpO2: 97% Weight: 207 lbs 09/29/2017 Blood Pressure 1: 124/68 Code: 8480-6 BMI: 32.1 Code: 29228-0 Heart Rate 1: 77 bpm Height: 5'6" SpO2: 98% Weight: 199 lbs 08/11/2017 Blood Pressure 1: 154/82 Code: 8480-6 BMI: 31.6 Code: 57905-5 Heart Rate 1: 75 bpm Height: 5'6" SpO2: 98% Weight: 196 lbs 06/09/2017 Blood Pressure 1: 148/88 Code: 8480-6 BMI: 28.6 Code: 18902-9 Heart Rate 1: 88 bpm Height: 5'6" SpO2: 98% Weight: 177 lbs 04/07/2017 Blood Pressure 1: 140/84 Code: 8480-6 BMI: 30.3 Code: 10947-9 Heart Rate 1: 81 bpm Height: 5'6" SpO2: 99% Weight: 188 lbs 11/17/2016 Blood Pressure 1: 130/72 Code: 8480-6 Heart Rate 1: 63 bpm Height: SpO2: 93% Weight: 11/10/2016 Blood Pressure 1: 128/86 Code: 8480-6 BMI: 30.3 Code: 29163-7 Heart Rate 1: 84 bpm Height: 5'6" SpO2: 96% Weight: 188 lbs 10/14/2016 Heigh t: 5'6" 09/16/2016 Blood Pressure 1: 130/80 Code: 8480-6 BMI: 30.3 Code: 50845-9 Heart Rate 1: 67 bpm Height: 5'6" SpO2: 99% Weight: 188 lbs 08/19/2016 Blood Pressure 1: 110/62 Code: 8480-6 BMI: 29.9 Code: 09393-5 Heart Rate 1: 70 bpm Height: 5'6" SpO2: 97% Weight: 185 lbs 06/17/2016 Blood Pressure 1: 112/68 Code: 8480-6 BMI: 27.6 Code: 33326-7 Heart Rate 1: 61 bpm Height: 5'6" SpO2: 98% Weight: 171 lbs 05/12/2016 Blood Pressure 1: 130/76 Code: 8480-6 BMI: 29.7 Code: 39216-4 Heart Rate 1: 103 bpm Height: 5'6" SpO2: 98% Weight: 184 lbs 02/16/2016 Blood Pressure 1: 140/82 Code: 8480-6 BMI: 28.7 Code: 76746-3 Heart Rate 1: 66 bpm Height: 5'6" SpO2: 99% Weight: 178 lbs 11/17/2015 Blood Pressure 1: 120/74 Code: 8480-6 BMI: 29.4 Code: 77487-2 Heart Rate 1: 90 bpm Height: 5'6" SpO2: 94% Weight: 182 lbs 08/28/2015 Blood Pressure 1: 128/76 Code: 8480-6 BMI: 27.9 Code: 05832-9 Heart Rate 1: 80 bpm Height: 5'6" SpO2: 98% Weight: 173 lbs 05/28/2015 Blood Pressure 1: 122/70 Code: 8480-6 BMI: 27.0 Code: 44951-0 Heart Rate 1: 74 bpm Height: 5'6" SpO2: 98% Weight: 167 lbs 04/23/2015 Blood Pressure 1: 110/60 Code: 8480-6 BMI: 27.0 Code: 01328-9 Heart Rate 1: 68 bpm Height: 5'6" [...] Quality constant 07/05/2018 None hypothyroid Quality chronic care nurse fe 07/05/2018 None hypothyroid Onset and [...] weight loss 03/28/2018 None hypothyroid Quality chronic care nurse fe 02/27/2018 None hypothyroid Onset and [...] Encounters Encounter Performer Loca tion Codes Date ([id number]) [id number] EST. P ATIENT, LEVEL IV Diagnosis: Hypothyroidism, unspecified[ICD10: E03.9] Diagnosis: Major depressive disorder, recurrent, moderate[ICD10: F33.1] Diagnosis: Chronic pain syndrome[ICD10: G89.4] Diagnosis: Other male erectile dysfunction[ICD10: N52.8] Diagnosis: Other fatigue[ICD10: R53.83] Diagnosis: Encounter for screening for malignant neoplasm of prostate[ICD10: Z12.5] Leydi Jacobo MD, [facility] CPT-4: 59963 07/05/2018 ([id number]) 33664 EST. P ATIENT, LEVEL IV Diagnosis: Chronic pain syndrome[ICD10: G89.4] Diagnosis: Hypothyroidism, unspecified[ICD10: E03.9] Diagnosis: Major depressive disorder, recurrent, moderate[ICD10: F33.1] Leydi Jacobo MD, [facility] CPT-4: 17509 05/04/2018 [id number] EST. PATIENT, LEVEL IV Diagnosis: Melena[ICD10: K92.1] Diagnosis: Other malaise[ICD10: R53.81] Diagnosis: Other fatigue[ICD10: R53.83] Diagnosis: Pain in unspecified joint[ICD10: M25.50] Diagnosis: Diarrhea, unspecified[ICD10: R19.7] Denae Jacobo MD, [facility] CPT-4: 24518 03/28/2018 [id number]) [id number] EST. P ATIENT, LEVEL IV Diagnosis: Chronic pain syndrome[ICD10: G89.4] Diagnosis: Hypothyroidism, unspecified[ICD10: E03.9] Diagnosis: Other obesity due to excess calories[ICD10: E66.09] Diagnosis: Major depressive disorder, recurrent, moderate[ICD10: F33.1] Diagnosis: Obstructive sleep apnea (adult) (pediatric)[ICD10: G47.33] Leydi Jacobo MD, [facility] CPT-4: 71661 02/27/2018 [id number] EST. PATIENT, LEVEL IV Diagnosis: Other specified hypothyroidism[ICD10: E03.8] Diagnosis: Chronic pain syndrome[ICD10: G89.4] Diagnosis: Major depressive disorder, recurrent, moderate[ICD10: F33.1] Denae Jacobo MD, [facility] CPT-4: 34185 12/01/2017 ([id number]) 11890 EST. P ATIENT, LEVEL IV Diagnosis: Chronic pain syndrome[ICD10: G89.4] Diagnosis: Alcohol dependence, uncomplicated[ICD10: F10.20] Diagnosis: Major depressive disorder, recurrent, moderate[ICD10: F33.1] Leydi Jacobo MD, [facility] CPT-4: 44022 09/29/2017 ([id number]) 11794 EST. P ATIENT, LEVEL IV Diagnosis: Chronic pain syndrome[ICD10: G89.4] Diagnosis: Alcohol dependence, uncomplicated[ICD10: F10.20] Diagnosis: Major depressive disorder, recurrent, moderate[ICD10: F33.1] Leydi Jacobo MD, [facility] CPT-4: 40113 08/11/2017 ([id number]) 75694 EST. P ATIENT, LEVEL III Diagnosis: Chronic pain syndrome[ICD10: G89.4] Diagnosis: Major depressive disorder, recurrent, moderate[ICD10: F33.1] Leydi Jacobo MD, [facility] CPT-4: 15454 06/09/2017 ([id number]) 58229 EST. P ATIENT, LEVEL III Diagnosis: Chronic pain syndrome[ICD10: G89.4] Diagnosis: Pain in left knee[ICD10: M25.562] Leydi Jacobo MD, [facility] CPT- 4: 98923 04/07/2017 76476 EST. PATIENT, LEVEL II Diagnosis: Superficial foreign body of left upper arm, initial encounter[ICD10: S40.852A] Diagnosis: Cellulitis of left upper limb[ICD10: L03.114] Leydi Jacobo MD, [facility] CPT-4: 64380 11/17/2016 [id number] EST. PATIENT, LEVEL II Diagnosis: Cellulitis of left upper limb[ICD10: L03.114] Leydi Jacobo MD, [facility] CPT-4: 59536 11/10/2016 ([id number]) 49860 EST. P ATIENT, LEVEL III Diagnosis: Chronic pain syndrome[ICD10: G89.4] Diagnosis: Major depressive disorder, recurrent, moderate[ICD10: F33.1] Leydi Jacobo MD, [facility] CPT-4: 40530 10/14/2016 70785 EST. PATIENT, LEVEL IV Diagnosis: Psychophysiologic insomnia[ICD10: F51.04] Diagnosis: Major depressive disorder, recurrent, moderate[ICD10: F33.1] Diagnosis: Alcohol dependence, uncomplicated[ICD10: F10.20] Diagnosis: Chronic pain syndrome[ICD10: G89.4] Leydi Jacobo MD, [facility] CPT-4: 97609 09/16/2016 ([id number]) 28084 EST. P ATIENT, LEVEL III Diagnosis: Pain in left shoulder[ICD10: M25.512] Diagnosis: Major depressive disorder, recurrent, moderate[ICD10: F33.1] Diagnosis: Psychophysiologic insomnia[ICD10: F51.04] Leydi Jacobo MD, [facility] CPT-4: 27940 08/19/2016 ([id number]) 33458 EST. P ATIENT, LEVEL III Diagnosis: Gastro-esophageal reflux disease without esophagitis[ICD10: K21.9] Diagnosis: Hypothyroidism, unspecified[ICD10: E03.9] Leydi Jacobo MD, [facility] CPT-4: 17784 06/17/2016 ([id number]) 76413 EST. P ATIENT, LEVEL IV Diagnosis: Gastro-esophageal reflux disease without esophagitis[ICD10: K21.9] Diagnosis: Hypothyroidism, unspecified[ICD10: E03.9] Diagnosis: Major depressive disorder, recurrent, moderate[ICD10: F33.1] Leydi Jacobo MD, [facility] CPT-4: 11133 05/12/2016 ([id number]) 37162 EST. P ATIENT, LEVEL III Diagnosis: Cervicalgia[ICD10: M54.2] Diagnosis: Hypothyroidism, unspecified[ICD10: E03.9] Diagnosis: Other male erectile dysfunction[ICD10: N52.8] Leydi Jacobo MD, [facility] CPT-4: 00524 02/16/2016 ([id number]) 94573 EST. P ATIENT, LEVEL III Diagnosis: Lumbago with sciatica, unspecified side[ICD10: M54.40] Diagnosis: Other male erectile dysfunction[ICD10: N52.8] Leydi Jacobo MD, [facility] CPT-4: 72480 11/17/2015 ([id number]) 78161 EST. P ATIENT, LEVEL III Diagnosis: Lumbago with sciatica, unspecified side[ICD10: M54.40] Diagnosis: Hypothyroidism, unspecified[ICD10: E03.9] Diagnosis: Other male erectile dysfunction[ICD10: N52.8] Leydi Jacobo MD, [facility] CPT-4: 74927 08/28/2015 ([id number]) 71786 EST. P ATIENT, LEVEL III Diagnosis: Back pain, chronic[ICD9: 724.5] Diagnosis: Depression[ICD9: 311] Diagnosis: Hypothyroid[ICD9: 244.9] Diagnosis: Bilateral calf pain[ICD9: 729.5] Julieta Jacobo MD, [facility] CPT-4: 97937 05/28/2015 ([id number]) OFFICE VISI T, NEW - LEVEL 4 Diagnosis: Back pain, chronic[ICD9: 724.5] Diagnosis: Depression[ICD9: 311] Diagnosis: Hypothyroid[ICD9: 244.9] Julieta Jacobo MD, [facility] CPT-4: 67062 04/23/2015 Plan of Care Planned Activity Notes [...] exposure. No change in current medications. Fatigue-weight dtqi-ZL-tzbef labs including testosterone level 07/05/2018 Visit Plan: [...] exposure. No change in current medications. Fatigue-weight kctp-YK-rntra labs including testosterone level 07/05/2018 Appointment: Leydi Hightower WPtel: [address] [place], [place] [phone] [place] (15 min) Moderate 07/05/2018 Patient Education: [...] to BID 05/04/2018 Appointment: Leydi Hightower WPtel: [phone] [phone] (15 min) Moderate 05/04/2018 Patient Education: [...] pain. 03/28/2018 Appointment: [phone] (30 min) Complex 03/28/2018 Appointment: Nurse Visit [...] this time. 02/27/2018 Appointment: [phone] (15 min) Moderate 02/27/2018 Patient Education: Patient [...] control. 12/01/2017 Appointment: Den[facility] Mart[facility]nez [phone] (30 min) Complex 12/01/2017 Patient Education: Patient [...] outpatient treatment 09/29/2017 Appointment: Leydi Hightower WPtel: [phone] (30 min) Complex 09/29/2017 Patient Education: [...] cons ider 08/11/2017 Appointment: Leydi Hightower WPtel: [phone] (30 min) Complex 08/11/2017 Patient Education: [...] current medications. 06/09/2017 Appointment: Leydi Hightower WPtel: [phone] (30 min) Complex 06/09/2017 Patient Education: Patient [...] completely resolve 11/17/2016 Appointment: Leydi Hightower WPtel: [address] [place], [place] [phone] (30 min) Complex 11/17/2016 Patient Education: Patient [...] in pain. 11/10/2016 Appointment: Leydi Hightower WPtel: [address] [place], [place] [phone] (30 min) Complex 11/10/2016 Patient Education: Patient [...] of plan. 10/14/2016 Appointment: Leydi Hightower WPtel: [address] [place], [place] [phone] (30 min) Complex 10/14/2016 Patient Education: Patient [...] try 09/16/2016 Appointment: Leydi Hightower WPtel: [phone] [phone] (30 min) Complex 09/16/2016 Patient Education: Patient Medication Summary Completed 09/16/2016 Visit Plan: Left shoulder and elbow pain-xray shoulder and elbow Jpzepolssi-msmxklvf-oiemmjqcimbq-d/c trazodone-start remeron at bedtime Pt has been [...] patient. 08/19/2016 Appointment: Leydi Hightower WPtel: [phone] [phone] (30 min) Complex 08/19/2016 Patient Education: [...] Completed 06/17/2016 Appointment: Leydi Hightower WPtel: [phone] [phone] [place] (30 min) Complex 06/09/2016 Visit Plan: [...] of control. 05/12/2016 Appointment: Leydi Hightower WPtel: [phone] [place] (30 min) Complex 05/12/2016 Patient Education: [...] today in office. 05/28/2015 Appointment: Leydi Hightower WPte: [address] [place], [place] [phone] (30 min) Complex 05/28/2015 Patient Education: Patient [...] Dynamic Portal ID Completed 04/23/2015 Patient Education: [facility] - Saving [employer] - Levothyroxine - 18-64 - Dynamic Portal ID Completed 04/23/2015 Care Plan: COMPLETE CBC AUTOMATED LOINC : 48882-4 Ordered 04/23/2015 Instructions Comment . Chronic Pain [...] exposure. No change in current medications. Fatigue-weight ltan-RX-rvjpo labs including testosterone level . Chronic Pain [...] exposure. No change in current medications. Fatigue-weight fkdw-RB-umbqb labs including testosterone level Get Immodium over [...] and elbow pain-xray shou lder and elbow Xxfwnjvuht-qesrsjwr-mojhjpopmfqp-d/c trazodone-start remeron at bedtime Pt has been [...] treatments ED-samples of cialis for prn use CHECK LABS AT NEXT A PPT INCREASE ACID RECRUITING SCHEDULER TO TWICE DAILY . Chronic Pain Syndrome [...]
--- OUTSIDE RECORDS SUMMARY | 2020-03-17 15:13 | XMS REPORT | CCD ---
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 Name Role Phone PP Unavailable CCM Unavailable Summary Purpose Interface Exchange Insurance Providers Payer name Policy type / Coverage type Covered democrat ID Effective Begin Date Effective End Date WPS Medicare Part B Medicare Part B [id number] Unknown [facility] ica Part B [id number] Un known Family history Father Diagnosis Age At Onset Colon cancer Unknown Social History Social History Element Codes Description Effective Dates Marital status Unknown D ivorced 04/23/[address]: 203191511 Never smoker 04/23/[address]: 294769 Currently drinks alcohol occasionally drinks 04/23/2015 Allergies, [...] Instructions levothyroxine 175 mc g tablet RxNorm: 874295 1 Tablet(s) PO daily 07/11/2018 11/07/2018 Active Vitamin D2 50,000 un it capsule RxNorm: 6347352 1 Capsule(s) PO QW 07/11/2018 10/02/2018 Active Vitamin D2 50,000 un it capsule RxNorm: 1443740 1 Capsule(s) PO QW 07/11/2018 07/10/2018 Inactive morphine 30 mg table t, crush resistant, extended release RxNorm: 1732879 1 Tablet(s) PO BID 07/05/2018 09/02/2018 Active oxymorphone 5 mg tablet RxNorm: 777625 1 Tablet(s) PO Q6 PRN 07/05/2018 09/02/2018 Active Remeron 15 mg tablet RxNorm: 490350 TAKE ONE TABLET BY MOUTH EVERY NIGHT AT BEDTIME 06/27/2018 09/24/2018 Active bupropion HCl XL 300 mg 24 hr tablet, extended release RxNorm: 217731 TAKE ONE TABLET BY MOUTH DAILY 06/27/2018 12/23/2018 Active tizanidine 4 mg tablet RxNorm: 965026 TAKE ONE TABLET BY MOUTH THREE TIMES A D AY NEEDED 06/20/2018 08/18/2018 Active doxycycline hyclate 100 mg tablet RxNorm: 4242815 1 Tablet(s) PO BID 06/18/2018 07/01/2018 Inactive Protonix 40 mg table t,delayed release RxNorm: 918068 TAKE ONE TABLET BY MO UT DAILY 06/11/2018 08/09/2018 Ac tive doxycycline hyclate 100 mg tablet RxNorm: 6276213 1 Tablet(s) PO BID 05/22/2018 06/04/2018 Inactive baclofen 10 mg tablet RxNorm: 467497 TAKE ONE TABLET BY MOUTH THREE TIMES A D AY NEEDED 05/14/2018 07/12/2018 Active diclofenac sodium 75 mg tablet,delayed release RxNorm: 888379 TAKE ONE TABLET BY MO UT TWICE A DAY 05/07/2018 10/03/2018 Active oxymorphone 5 mg tablet RxNorm: 359714 1 Tablet(s) PO Q6 PRN 05/04/2018 07/02/2018 Inactive morphine 30 mg table t, crush resistant, extended release RxNorm: 2312266 1 Tablet(s) PO BID 05/04/2018 07/02/2018 Inactive doxycycline hyclate 100 mg tablet RxNorm: 142794 1 Tablet(s) PO BID 04/24/2018 04/23/2018 Inactive doxycycline hyclate 100 mg tablet RxNorm: 0244059 1 Tablet(s) PO BID 04/24/2018 05/03/2018 Inactive baclofen 10 mg tablet RxNorm: 564449 TAKE ONE TABLET BY MOUTH THREE TIMES A D AY NEEDED 04/13/2018 05/12/2018 Inactive trazodone 50 mg tablet RxNorm: 951946 TAKE ONE TABLET BY MOUTH EVERY NIGHT AT BEDTIME AND ONE-HALF TABLET BY MOUTH NEEDED 04/09/2018 06/07/2018 Inactive Questran 4 gram powd er for susp in a packet RxNorm: 511429 1 packet PO BID 04/06/2018 06/04/2018 In active Questran 4 gram powd er for susp in a packet RxNorm: 869805 1 packet PO BID 04/06/2018 04/05/2018 In active Carafate 1 gram tablet RxNorm: 900811 1 Tablet(s) PO AC & HS as needed for hea rtburn 03/28/2018 04/26/2018 Inactive baclofen 10 mg tablet RxNorm: 388673 TAKE ONE TABLET BY MOUTH THREE TIMES A D AY NEEDED 03/16/2018 04/12/2018 Inactive Protonix 40 mg table t,delayed release RxNorm: 134327 TAKE ONE TABLET BY MO UTH DAILY 03/16/2018 06/10/2018 In active Belviq XR 20 mg tabl et,extended release RxNorm: 2864372 1 Tablet(s) PO daily 02/27/2018 04/27/2018 In active oxymorphone 5 mg tablet RxNorm: 628920 1 Tablet(s) PO Q6 PRN 02/27/2018 04/27/2018 Inactive morphine 30 mg table t, crush resistant, extended release RxNorm: 0073242 1 Tablet(s) PO BID 02/27/2018 04/27/2018 Inactive levothyroxine 100 mc g tablet RxNorm: 134481 1 Tablet(s) PO daily 02/27/2018 07/10/2018 Inactive take with 88mcg to = 188mcg daily levothyroxine 88 mcg tablet RxNorm: 889630 1 Tablet(s) PO daily 02/27/2018 07/10/2018 Inactive take with 100mcg to = 188mcg daily morphine 30 mg table t, crush resistant, extended release RxNorm: 2699053 1 Tablet(s) PO BID 02/14/2018 02/26/2018 Inactive levothyroxine 200 mc g tablet RxNorm: 448197 Tablet(s) TAKE ONE TA BLET BY MOUTH DAILY 01/18/2018 02/26/2018 Inactive Updated script baclofen 10 mg tablet RxNorm: 397895 Tablet(s) TAKE ONE TABLET BY MOUTH THREE TIMES A DAY NEEDED 01/15/2018 02/13/2018 Inactive morphine 30 mg table t, crush resistant, extended release RxNorm: 7430804 1 Tablet(s) PO BID 01/15/2018 02/13/2018 Inactive tizanidine 4 mg tablet RxNorm: 599897 TAKE ONE TABLET BY MOUTH THREE TIMES A D AY NEEDED 01/02/2018 04/01/2018 Inactive Request already responded t o by other means (e.g. phone or fax) bupropion HCl XL 300 mg 24 hr tablet, extended release RxNorm: 187762 TAKE ONE TABLET BY MOUTH DAILY 12/29/2017 06/26/2018 Inactive Tamiflu 75 mg capsule RxNorm: 369619 1 Capsule(s) PO BID 12/27/2017 12/31/2017 Inactive Tamiflu 75 mg capsule RxNorm: 310845 1 Capsule(s) PO BID 12/27/2017 12/26/2017 Inactive tizanidine 4 mg tablet RxNorm: 333743 1 Tablet(s) PO TID as needed 12/25/2017 01/01/2018 Inactive levothyroxine 175 mc g tablet RxNorm: 952755 1 Tablet(s) PO daily 12/14/2017 12/13/2017 Inactive levothyroxine 175 mc g tablet RxNorm: 956934 1 Tablet(s) PO daily 12/14/2017 01/17/2018 Inactive baclofen 10 mg tablet RxNorm: 794895 Tablet(s) TAKE ONE TABLET BY MOUTH THREE TIMES A DAY NEEDED 12/13/2017 01/11/2018 Inactive baclofen 10 mg tablet RxNorm: 439342 TAKE ONE TABLET BY MOUTH THREE TIMES A D AY NEEDED 12/13/2017 12/12/2017 Inactive morphine 30 mg table t, crush resistant, extended release RxNorm: 0031581 1 Tablet(s) PO BID 12/12/2017 01/14/2018 Inactive clonazepam 1 mg tablet RxNorm: 770530 1/2 Tablet(s) PO daily 12/01/2017 08/27/2018 Active trazodone 50 mg tablet RxNorm: 958830 1/2 to 1 Tablet(s) QHS as needed 12/01/2017 03/30/2018 In active Opana ER 15 mg table t, crush resistant, extended release RxNorm: 916062 1 Tablet(s) PO Q12H 12/01/2017 02/13/2018 Inactive oxymorphone 5 mg tablet RxNorm: 127614 1 Tablet(s) PO Q6 PRN 12/01/2017 02/26/2018 Inactive Remeron 15 mg tablet RxNorm: 372126 Tablet(s) TAKE ONE TABLET BY MOUTH EVERY NIGHT AT BEDTIME 12/01/2017 02/28/2018 Inactive trazodone 50 mg tablet RxNorm: 771151 1/2 Tablet(s) as needed 1 Tablet(s) PO Q HS 12/01/2017 11/30/2017 In active clonazepam 1 mg tablet RxNorm: 359288 1/2 Tablet(s) PO daily 11/30/2017 11/30/2017 Inactive Remeron 15 mg tablet RxNorm: 803154 TAKE ONE TABLET BY MOUTH EVERY NIGHT AT BEDTIME 11/29/2017 11/30/2017 Inactive levothyroxine 200 mc g tablet RxNorm: 343137 TAKE ONE TABLET BY [facility] DAILY 11/15/2017 12/13/2017 In active baclofen 10 mg tablet RxNorm: 284119 TAKE ONE TABLET BY MOUTH THREE TIMES A D AY NEEDED 11/07/2017 12/06/2017 Inactive diclofenac sodium 75 mg tablet,delayed release RxNorm: 048265 1 Tablet(s) PO BID 11/07/2017 05/05/2018 In active liothyronine 5 mcg t ablet RxNorm: 859954 TAKE ONE TABLET BY [facility] DAILY 10/27/2017 07/23/2018 Ac tive tizanidine 4 mg tablet RxNorm: 025614 1 Tablet(s) PO TID as needed 10/18/2017 12/16/2017 Inactive oxymorphone 5 mg tablet RxNorm: 024706 1 Tablet(s) PO Q6 PRN 09/29/2017 11/27/2017 Inactive morphine 30 mg table t, crush resistant, extended release RxNorm: 1530395 1 Tablet(s) PO BID 09/29/2017 11/28/2017 Inactive baclofen 10 mg tablet RxNorm: 933306 1 Tablet(s) PO TID as needed 09/11/2017 10/10/2017 Inactive baclofen 10 mg tablet RxNorm: 048022 1 Tablet(s) PO TID as needed 08/11/2017 09/09/2017 Inactive Opana ER 15 mg table t, crush resistant, extended release RxNorm: 790946 1 Tablet(s) PO Q12H 08/11/2017 09/28/2017 Inactive Remeron 15 mg tablet RxNorm: 449690 TAKE ONE TABLET BY MOUTH EVERY NIGHT AT BEDTIME 08/02/2017 10/30/2017 Inactive oxymorphone 5 mg tablet RxNorm: 639433 1 Tablet(s) PO Q6 PRN 08/02/2017 09/28/2017 Inactive Opana ER 5 mg tablet , crush resistant, extended release RxNorm: 694417 1 Tablet(s) PO Q6 PRN 08/01/2017 08/10/2017 Inactive Protonix 40 mg table t,delayed release RxNorm: 753996 TAKE ONE TABLET BY MO UTH DAILY 06/26/2017 10/23/2017 In active Protonix 40 mg table t,delayed release RxNorm: 271174 TAKE ONE TABLET BY MO UTH DAILY 06/26/2017 06/25/2017 In active bupropion HCl XL 300 mg 24 hr tablet, extended release RxNorm: 147967 TAKE ONE TABLET BY MOUTH DAILY 06/13/2017 12/09/2017 Inactive tizanidine 4 mg tablet RxNorm: 395224 1 Tablet(s) PO TID as needed 06/13/2017 06/12/2017 Inactive tizanidine 4 mg tablet RxNorm: 141572 1 Tablet(s) PO TID as needed 06/13/2017 09/10/2017 Inactive baclofen 10 mg tablet RxNorm: 739249 1 Tablet(s) PO TID as needed 06/13/2017 07/12/2017 Inactive Opana ER 15 mg table t, crush resistant, extended release RxNorm: 335887 1 Tablet(s) PO Q12H 06/09/2017 08/07/2017 Inactive Opana ER 5 mg tablet , crush resistant, extended release RxNorm: 155360 1 Tablet(s) PO Q6 PRN 06/09/2017 07/31/2017 Inactive diclofenac sodium 75 mg tablet,delayed release RxNorm: 041607 1 Tablet(s) PO BID 06/09/2017 09/06/2017 In active clonazepam 1 mg tablet RxNorm: 924454 1/2 Tablet(s) PO daily 05/24/2017 11/18/2017 Inactive bupropion HCl XL 300 mg 24 hr tablet, extended release RxNorm: 433030 TAKE ONE TABLET BY MOUTH DAILY 03/16/2017 06/12/2017 Inactive clonazepam 1 mg tablet RxNorm: 557922 1/2 Tablet(s) PO daily 02/22/2017 05/18/2017 Inactive Remeron 15 mg tablet RxNorm: 636766 TAKE ONE TABLET BY MOUTH EVERY NIGHT AT BEDTIME 02/06/2017 2017 Inactive Protonix 40 mg table t,delayed release RxNorm: 165293 TAKE ONE TABLET BY MO UTH DAILY 01/26/2017 06/24/2017 In active mupirocin 2 % topica l ointment RxNorm: 478530 1 Application TOP BID 01/12/2017 01/18/2017 Inactive Bactrim DS 800 mg-16 0 mg tablet RxNorm: 706852 1 Tablet(s) PO BID 11/17/2016 11/23/2016 Inactive mupirocin 2 % topica l ointment RxNorm: 139642 1 Application TOP BID 11/10/2016 11/16/2016 Inactive Bactrim DS 800 mg-16 0 mg tablet RxNorm: 172595 1 Tablet(s) PO BID 11/10/2016 11/16/2016 Inactive bupropion HCl XL 300 mg 24 hr tablet, extended release RxNorm: 204926 TAKE ONE TABLET BY MOUTH DAILY 11/07/2016 03/06/2017 Inactive liothyronine 5 mcg t ablet RxNorm: 051471 1 Tablet(s) PO daily 11/01/2016 10/26/2017 Inactive levothyroxine 200 mc g tablet RxNorm: 779030 1 Tablet(s) PO daily 10/04/2016 09/28/2017 Inactive clonazepam 1 mg tablet RxNorm: 674515 1/2 Tablet(s) PO daily 09/21/2016 03/18/2017 Inactive clonazepam 1 mg tablet RxNorm: 487538 1/2 Tablet(s) PO daily 09/16/2016 09/20/2016 Inactive Abilify 2 mg tablet RxNorm: 461004 1 Tablet(s) PO daily 09/16/2016 10/13/2016 Inactive trazodone 50 mg tablet RxNorm: 716885 1/2 Tablet(s) as needed 1 Tablet(s) PO Q HS 09/16/2016 01/13/2017 In active morphine 15 mg immed iate release tablet RxNorm: 180903 1 Tablet(s) PO Q6 PRN 09/16/2016 04/06/2017 In active baclofen 10 mg tablet RxNorm: 128236 1 Tablet(s) PO TID as needed 09/16/2016 06/12/2017 Inactive MS Contin 30 mg tabl et,extended release RxNorm: 273784 1 Tablet(s) PO Q12H 09/16/2016 04/06/2017 In active Remeron 15 mg tablet RxNorm: 259685 1 Tablet(s) PO QHS 08/19/2016 09/15/2016 Inactive levothyroxine 200 mc g tablet RxNorm: 865507 1 Tablet(s) PO daily 08/11/2016 10/03/2016 Inactive bupropion HCl XL 300 mg 24 hr tablet, extended release RxNorm: 444525 TAKE ONE TABLET BY MOUTH DAILY 08/11/2016 11/06/2016 Inactive Protonix 40 mg table t,delayed release RxNorm: 963636 1 Tablet(s) PO daily 06/17/2016 12/13/2016 In active bupropion HCl XL 300 mg 24 hr tablet, extended release RxNorm: 669926 1 Tablet(s) PO daily 05/12/2016 07/10/2016 Inactive bupropion HCl XL 300 mg 24 hr tablet, extended release RxNorm: 303483 1 Tablet(s) PO daily 05/12/2016 05/11/2016 Inactive Cialis 20 mg tablet RxNorm: 867587 1 Tablet(s) PO PRN 02/16/2016 No Stop Date Active not more than 1 tab in 24 hours morphine ER 10 mg ca psule,extended release pellets RxNorm: 701162 1 Tablet(s) PO Q6 as needed 02/16/2016 11/16/2016 Inactive clonazepam 1 mg tablet RxNorm: 159770 1/2 Tablet(s) PO BID 02/16/2016 09/15/2016 Inactive trazodone 50 mg tablet RxNorm: 495719 1/2 Tablet(s) as needed 1 Tablet(s) PO Q HS 02/16/2016 08/18/2016 In active trazodone 50 mg tablet RxNorm: 185861 1/2 Tablet(s) 1 Tablet(s) PO QHS 11/17/2015 02/15/2016 In active trazodone 50 mg tablet RxNorm: 820498 1 Tablet(s) PO QHS 10/19/2015 11/16/2015 Inactive levothyroxine 200 mc g tablet RxNorm: 661014 1 Tablet(s) PO daily 10/02/2015 08/10/2016 Inactive Wellbutrin XL 150 mg 24 hr tablet, extended release RxNorm: 263077 1 Tablet(s) PO daily 10/02/2015 05/11/2016 Inactive levothyroxine 200 mc g tablet RxNorm: 239538 1 Tablet(s) PO daily 09/30/2015 10/01/2015 Inactive Wellbutrin XL 150 mg 24 hr tablet, extended release RxNorm: 372189 1 Tablet(s) PO daily 09/30/2015 10/01/2015 Inactive trazodone 50 mg tablet RxNorm: 728002 1 Tablet(s) PO QHS 09/11/2015 10/10/2015 Inactive trazodone 50 mg tablet RxNorm: 654839 1 Tablet(s) PO QHS 09/11/2015 09/10/2015 Inactive Cymbalta 30 mg capsu le,delayed release RxNorm: 587483 1 Capsule(s) PO daily 09/07/2015 11/16/2015 In active Cymbalta 60 mg capsu le,delayed release RxNorm: 949972 1 Capsule(s) PO daily 08/31/2015 08/30/2015 In active Cymbalta 30 mg capsu le,delayed release RxNorm: 114571 1 Capsule(s) PO daily take with 60mg to make 90 mg daily 08/31/2015 09/06/2015 Inactive Cymbalta 30 mg capsu le,delayed release RxNorm: 586687 1 Capsule(s) PO daily take with 60mg to make 90 mg daily 08/31/2015 08/30/2015 Inactive Cymbalta 60 mg capsu le,delayed release RxNorm: 901498 1 Capsule(s) PO daily x 7 days and then increase to 90mg daily 08/31/2015 09/07/2015 Inactive levothyroxine 200 mc g tablet RxNorm: 596226 1 Tablet(s) PO daily 08/14/2015 09/29/2015 Inactive Wellbutrin XL 150 mg 24 hr tablet, extended release RxNorm: 635127 1 Tablet(s) PO daily 07/14/2015 09/29/2015 Inactive Cialis 20 mg tablet RxNorm: 556412 1 Tablet(s) PO PRN 07/02/2015 02/15/2016 Inactive not more than 1 tab in 24 hours liothyronine 5 mcg t ablet RxNorm: 034649 1 Tablet(s) PO daily 2015 05/29/2016 Inactive clonazepam 1 mg tablet RxNorm: 028752 1 Tablet(s) PO TID 2015 02/15/2016 Inactive minocycline 50 mg ta blet RxNorm: 770023 1 Tablet(s) PO daily 2015 05/11/2016 Inactive Wellbutrin XL 150 mg 24 hr tablet, extended release RxNorm: 249433 1 Tablet(s) PO daily 04/23/2015 07/13/2015 Inactive levothyroxine 200 mc g tablet RxNorm: 392766 1 Tablet(s) PO daily 04/23/2015 08/13/2015 Inactive Aleve oral RxNorm: 909949 oral No Start Date Active Tylenol 500 mg RxNorm: oral No Start Date Active morphine ER 15 mg ta blet,extended release RxNorm: 886606 oral No Start Date 11/16/2016 Inactive Trazadone 25 mg RxNorm: 2 PO daily No Start Date 09/11/2015 Inactive diclofenac oral RxNorm: 3355 oral No Start Date 05/04/2018 Inactive clonazepam 1 mg tablet RxNorm: 256912 1 Tablet(s) PO QHS No Start Date 06/04/2015 Inactive Wellbutrin XL 150 mg 24 hr tablet, extended release RxNorm: 255238 1 Tablet(s) PO daily No Start Date 04/22/2015 Inactive minocycline 50 mg ta blet RxNorm: 578968 1 Tablet(s) PO daily No Start Date 06/04/2015 Inactive methadone 5 mg tablet RxNorm: 650222 1 Tablet(s) PO Q8 No Start Date 02/15/2016 Inactive Protonix 40 mg table t,delayed release RxNorm: 182860 Tablet(s) PO daily No Start Date 06/16/2016 Inactive Opana ER 15 mg table t, crush resistant, extended release RxNorm: 581130 1 Tablet(s) PO Q12H No Start Date 06/08/2017 Inactive MS Contin 30 mg tabl et,extended release RxNorm: 529647 1 Tablet(s) PO Q12H No Start Date 02/15/2016 Inactive Opana ER 15 mg table t, crush resistant, extended release RxNorm: 998958 1 Tablet(s) PO BID No Start Date 09/15/2016 Inactive liothyronine 5 mcg t ablet RxNorm: 973838 1 Tablet(s) PO daily No Start Date 06/04/2015 Inactive Cialis 20 mg tablet RxNorm: 852799 1 Tablet(s) PO PRN No Start Date 07/01/2015 Inactive not more than 1 tab in 24 hours baclofen 10 mg tablet RxNorm: 597403 1 Tablet(s) PO TID as needed No Start Date 05/11/2016 Inactive morphine 15 mg immed iate release tablet RxNorm: 777426 1 Tablet(s) PO Q6 PRN as needed No Start Date 02/15/2016 Inactive levothyroxine 200 mc g tablet RxNorm: 329329 1 Tablet(s) PO daily No Start Date 04/22/2015 Inactive Opana ER 5 mg tablet , crush resistant, extended release RxNorm: 878690 1 Tablet(s) PO Q6 No Start Date [...] Code Result Date Vitamin D 25 Oh [id number] VITAMIN D, 25 HYDROXY 30.96 ng/mL 07/06/2018 Comp Metabolic Ydu045 NA 141 mEq/L 07/06/2018 Comp Metabolic Wpz662 K 4.2 mEq/L 07/06/2018 Comp Metabolic Kxz494 CL 103 mEq/L 07/06/2018 Comp Metabolic Bos135 CO2 29.0 mEq/L 07/06/2018 Comp Metabolic Nkr746 AN ION GAP 13 07/06/2018 Comp Metabolic Gmx125 GL UCOSE 105 mg/dL 07/06/2018 Comp Metabolic Fhv983 Cr eat 0.8 mg/dL 07/06/2018 Comp Metabolic Nce086 eG FR 101 ml/min/1.73m2 06/27 Comp Metabolic Cbm681 BUN 7 mg/dL 07/06/2018 Comp Metabolic Cmp800 B/ C Ratio 8.3 Ratio 07/06/2018 Comp Metabolic Bog633 CA LCIUM 9.9 mg/dL 07/06/2018 Comp Metabolic Fbp869 AL K PHOS 65 U/L 07/06/2018 Comp Metabolic Mrg370 T(SGOT) 21 U/L 07/06/2018 Comp Metabolic Rmh833 AL T(SGPT) 31 U/L 07/06/2018 Comp Metabolic Unp855 BI LI T 0.3 mg/dL 07/06/2018 Comp Metabolic Zxi520 AL BUMIN 4.3 g/dL 07/06/2018 Comp Metabolic Psn556 TP RO 6.4 g/dL 07/06/2018 Comp Metabolic Rbp454 GL OB 2.1 g/dL 07/06/2018 Comp Metabolic Zmg035 A/ G Ratio 2.0 Ratio 07/06/2018 Comp Metabolic Psr048 Os mo 280 mOsmo 07/06/2018 Cbc With [...] 39.5 % 07/06/2018 Cbc With Differential Ord2 [place]% 10.5 % 07/06/2018 Cbc With Differential Ord2 [...] 1.89 K/ul 07/06/2018 Cbc With Differential Ord2 [place] ABS# 0.5 K/ul 07/06/2018 Cbc With Differential Ord2 Eos ABS# 0.3 K/ul 07/06/2018 Cbc With Differential Ord2 Baso ABS# 0.0 K/ul 07/06/2018 Total Psa Ord10 PSA 0.34 ng/mL 07/06/2018 Tsh Ord6 TSH (3rd IS) 0.02 uIU/mL 07/06/2018 Testosterone Hkk724 Testo 400.6 ng/dL 07/06/2018 Free T4 Kfb001 FREE T4 1.48 ng/dL 07/06/2018 Frederika Spotted Fever Igg/Igm 41996 3 PARTHA MT SPOTTED FEVER IGM EIA . 04/04/2018 Frederika Spotted Fever Igg/Igm 05112 3 RMSF, IGM 0.24 index 04/04/2018 Frederika Spotted Fever Igg/Igm 91006 3 PARTHA MT SPOTTED FEVER IGG EIA FLEX . 04/04/2018 Frederika Spotted Fever Igg/Igm 89961 3 RMSF, IGG SCREEN-FLEX Equivocal 04/04/2018 Partha Mtn Spot'D Fev Igg 512787 RMSF, IGG- TITER IFA <1:64 04/04/2018 Ehrlichia Chaffeensis Antibody Igg [id number] EHRLICHIA CHAFFEENSIS IGG <1:64 04/02/2018 Ehrlichia Chaffeensis Antibody Igm 063836 EHRLICHIA CHAFFEENSIS IGM < 1:16 04/02/2018 Lymes Disease Total Antibodies With Western Blot Refle x [id number] B. BURGDORFERI, IGG/IGM 0.23 03/30/2018 Lymes Disease Total Antibodies With Western Blot Refle x [id number] 03/30/2018 Cbc With Differential Ord2 WBC 5.04 [...] 28.7 pg 03/28/2018 Cbc With Differential Ord2 [place]% 16.1 % 03/28/2018 Cbc With Differential Ord2 [...] 1.37 K/ul 03/28/2018 Cbc With Differential Ord2 [place] ABS# 0.8 K/ul 03/28/2018 Cbc With Differential Ord2 Eos ABS# 0.1 K/ul 03/28/2018 Cbc With Differential Ord2 Baso ABS# 0.0 K/ul 03/28/2018 Comp Metabolic Weg395 NA 136 mEq/L 02/16/2018 Comp Metabolic Ffm424 K 3.9 mEq/L 02/16/2018 Comp Metabolic Xlj698 CL 103 mEq/L 02/16/2018 Comp Metabolic Ipy435 CO2 23.0 mEq/L 02/16/2018 Comp Metabolic Eam637 AN ION GAP 14 02/16/2018 Comp Metabolic Duo637 GL UCOSE 133 mg/dL 02/16/2018 Comp Metabolic Bmb046 Cr eat 0.8 mg/dL 02/16/2018 Comp Metabolic Ojw039 eG FR 103 ml/min/1.73m2 01/26 Comp Metabolic Wwz812 BUN 7 mg/dL 02/16/2018 Comp Metabolic Ynk777 B/ C Ratio 8.4 Ratio 02/16/2018 Comp Metabolic Tyb071 CA LCIUM 9.3 mg/dL 02/16/2018 Comp Metabolic Lub113 AL K PHOS 71 U/L 02/16/2018 Comp Metabolic Rfx057 T(SGOT) 42 U/L 02/16/2018 Comp Metabolic Pzv048 AL T(SGPT) 69 U/L 02/16/2018 Comp Metabolic Glm052 BI LI T 0.3 mg/dL 02/16/2018 Comp Metabolic Ppt132 AL BUMIN 4.1 g/dL 02/16/2018 Comp Metabolic Vkc309 TP RO 6.3 g/dL 02/16/2018 Comp Metabolic Gvw294 GL OB 2.2 g/dL 02/16/2018 Comp Metabolic Bov190 A/ G Ratio 1.8 Ratio 02/16/2018 Comp Metabolic Jox747 Os mo 272 mOsmo 02/16/2018 Free T4 Jcl557 FREE T4 1.85 ng/dL 02/16/2018 Ferritin Ord22 FERRITIN 161.7 ng/mL 02/16/2018 Tsh Ord6 TSH (3rd IS) 0.01 uIU/mL 02/16/2018 Test(s) Not Perfromed [id number] Test(s) Not Performed Test(s) Not Performed. See Below: 02/16/2018 Test(s) Not Perfromed [id number] TEST NAME CBC 02/16/2018 Test(s) Not Perfromed [id number] Rejection Reason No Suitable Specimen Receive d 02/16/2018 Test(s) Not Perfromed [id number] COMMENT Please Recollect Sample 02/16/2018 Test(s) Not Perfromed [id number] Geological Aide Fernando Goyal 02/16/2018 Tibc Ord40 Iron 138 [...] 26.4 pg 01/05/2018 Cbc With Differential Ord2 [place]% 11.9 % 01/05/2018 Cbc With Differential Ord2 [...] 2.08 K/ul 01/05/2018 Cbc With Differential Ord2 [place] ABS# 0.6 K/ul 01/05/2018 Cbc With Differential Ord2 Eos ABS# 0.2 K/ul 01/05/2018 Cbc With Differential Ord2 Baso ABS# 0.0 K/ul 01/05/2018 Ferritin Ord22 FERRITIN 5.7 ng/mL 12/06/2017 Tibc Ord40 Iron 33 ug/dl 12/06/2017 Tibc Ord40 UIBC 431 ug/dL 12/06/2017 Tibc Ord40 TIBC 464 ug/dL 12/06/2017 Tibc Ord40 Fe-%Sat 7.1 % 12/06/2017 Free T4 Vmp617 FREE T4 1.82 ng/dL 12/01/2017 Tsh Ord6 [...] 27.0 pg 12/01/2017 Cbc With Differential Ord2 [place]% 10.6 % 12/01/2017 Cbc With Differential Ord2 [...] 1.92 K/ul 12/01/2017 Cbc With Differential Ord2 [place] ABS# 0.4 K/ul 12/01/2017 Cbc With Differential Ord2 Eos ABS# 0.2 K/ul 12/01/2017 Cbc With Differential Ord2 Baso ABS# 0.0 K/ul 12/01/2017 Comp Metabolic Yqg240 NA 136 mEq/L 12/01/2017 Comp Metabolic Rqi011 K 4.6 mEq/L 12/01/2017 Comp Metabolic Mot565 CL 102 mEq/L 12/01/2017 Comp Metabolic Xvo326 CO2 27.0 mEq/L 12/01/2017 Comp Metabolic Ucj125 AN ION GAP 12 12/01/2017 Comp Metabolic Ttf904 GL UCOSE 90 mg/dL 12/01/2017 Comp Metabolic Wxz773 Cr eat 0.7 mg/dL 12/01/2017 Comp Metabolic Fhl574 eG FR 123 ml/min/1.73m2 03/2018 Comp Metabolic Yvb114 BUN 4 mg/dL 12/01/2017 Comp Metabolic Kso495 B/ C Ratio 5.6 Ratio 12/01/2017 Comp Metabolic Dur730 CA LCIUM 9.0 mg/dL 12/01/2017 Comp Metabolic Yhj923 AL K PHOS 67 U/L 12/01/2017 Comp Metabolic Npy667 T(SGOT) 30 U/L 12/01/2017 Comp Metabolic Gcw663 AL T(SGPT) 29 U/L 12/01/2017 Comp Metabolic Xlh636 BI LI T 0.3 mg/dL 12/01/2017 Comp Metabolic Qrm247 AL BUMIN 4.1 g/dL 12/01/2017 Comp Metabolic Xew601 TP RO 6.1 g/dL 12/01/2017 Comp Metabolic Pll825 GL OB 2.0 g/dL 12/01/2017 Comp Metabolic Gir529 A/ G Ratio 2.0 Ratio 12/01/2017 Comp Metabolic Nhb475 Os mo 268 mOsmo 12/01/2017 Comp Metabolic Euu318 NA 136 mEq/L 02/16/2016 Comp Metabolic Eof031 K 4.2 mEq/L 02/16/2016 Comp Metabolic Rqh430 CL 104 mEq/L 02/16/2016 Comp Metabolic Twc995 CO2 20.0 mEq/L 02/16/2016 Comp Metabolic Nwn488 AN ION GAP 16 02/16/2016 Comp Metabolic Xfr432 GL UCOSE 71 mg/dL 02/16/2016 Comp Metabolic Oxr152 Cr eat 0.8 mg/dL 02/16/2016 Comp Metabolic Zri021 eG FR 113 ml/min/1.73m2 01/26 Comp Metabolic Jit709 BUN 7 mg/dL 02/16/2016 Comp Metabolic Vmc458 B/ C Ratio 9.1 Ratio 02/16/2016 Comp Metabolic Qiy650 CA LCIUM 9.4 mg/dL 02/16/2016 Comp Metabolic Bgs248 AL K PHOS 57 U/L 02/16/2016 Comp Metabolic Ufp933 T(SGOT) 30 U/L 02/16/2016 Comp Metabolic Uzx043 AL T(SGPT) 27 U/L 02/16/2016 Comp Metabolic Mbv644 BI LI T 0.2 mg/dL 02/16/2016 Comp Metabolic Roe942 AL BUMIN 4.4 g/dL 02/16/2016 Comp Metabolic Bha270 TP RO 6.5 g/dL 02/16/2016 Comp Metabolic Yaj032 GL OB 2.1 g/dL 02/16/2016 Comp Metabolic Vgg994 A/ G Ratio 2.1 Ratio 02/16/2016 Comp Metabolic Drq164 Os mo 268 mOsmo 02/16/2016 Free T4 Bho747 FREE T4 1.20 ng/dL 02/16/2016 Cbc With [...] 90.6 fl 02/16/2016 Cbc With Differential Ord2 [place]% 9.6 % 02/16/2016 Cbc With Differential Ord2 [...] 1.50 K/ul 02/16/2016 Cbc With Differential Ord2 [place] ABS# 0.5 K/ul 02/16/2016 Cbc With Differential [...] 1: 94/62 Code: 8480-6 BMI: 36.8 Code: 11502-5 Heart Rate 1: 88 bpm Height: 5'6" SpO2: 99% Weight: 228 lbs 05/04/2018 Blood Pressure 1: 110/80 Code: 8480-6 BMI: 35.5 Code: 37476-1 Heart Rate 1: 80 bpm Height: 5'6" SpO2: 99% Weight: 220 lbs 03/28/2018 Blood Pressure 1: 110/72 Code: 8480-6 BMI: 35.0 Code: 20484-8 Heart Rate 1: 80 bpm Height: 5'6" SpO2: 98% Temperature: 36.2 (C ) / 97.1 (F) Weight: 217 lbs 02/27/2018 Blood Pressure 1: 136/76 Code: 8480-6 BMI: 36.0 Code: 04432-1 Heart Rate 1: 80 bpm Height: 5'6" SpO2: 98% Weight: 223 lbs 12/01/2017 Blood Pressure 1: 132/72 Code: 8480-6 BMI: 33.4 Code: 06442-7 Heart Rate 1: 82 bpm Height: 5'6" SpO2: 97% Weight: 207 lbs 09/29/2017 Blood Pressure 1: 124/68 Code: 8480-6 BMI: 32.1 Code: 84073-3 Heart Rate 1: 77 bpm Height: 5'6" SpO2: 98% Weight: 199 lbs 08/11/2017 Blood Pressure 1: 154/82 Code: 8480-6 BMI: 31.6 Code: 18052-4 Heart Rate 1: 75 bpm Height: 5'6" SpO2: 98% Weight: 196 lbs 06/09/2017 Blood Pressure 1: 148/88 Code: 8480-6 BMI: 28.6 Code: 19804-6 Heart Rate 1: 88 bpm Height: 5'6" SpO2: 98% Weight: 177 lbs 04/07/2017 Blood Pressure 1: 140/84 Code: 8480-6 BMI: 30.3 Code: 78654-8 Heart Rate 1: 81 bpm Height: 5'6" SpO2: 99% Weight: 188 lbs 11/17/2016 Blood Pressure 1: 130/72 Code: 8480-6 Heart Rate 1: 63 bpm Height: SpO2: 93% Weight: 11/10/2016 Blood Pressure 1: 128/86 Code: 8480-6 BMI: 30.3 Code: 53438-4 Heart Rate 1: 84 bpm Height: 5'6" SpO2: 96% Weight: 188 lbs 10/14/2016 Heigh t: 5'6" 09/16/2016 Blood Pressure 1: 130/80 Code: 8480-6 BMI: 30.3 Code: 74817-9 Heart Rate 1: 67 bpm Height: 5'6" SpO2: 99% Weight: 188 lbs 08/19/2016 Blood Pressure 1: 110/62 Code: 8480-6 BMI: 29.9 Code: 24828-8 Heart Rate 1: 70 bpm Height: 5'6" SpO2: 97% Weight: 185 lbs 06/17/2016 Blood Pressure 1: 112/68 Code: 8480-6 BMI: 27.6 Code: 55797-9 Heart Rate 1: 61 bpm Height: 5'6" SpO2: 98% Weight: 171 lbs 05/12/2016 Blood Pressure 1: 130/76 Code: 8480-6 BMI: 29.7 Code: 83055-5 Heart Rate 1: 103 bpm Height: 5'6" SpO2: 98% Weight: 184 lbs 02/16/2016 Blood Pressure 1: 140/82 Code: 8480-6 BMI: 28.7 Code: 27788-7 Heart Rate 1: 66 bpm Height: 5'6" SpO2: 99% Weight: 178 lbs 11/17/2015 Blood Pressure 1: 120/74 Code: 8480-6 BMI: 29.4 Code: 35451-4 Heart Rate 1: 90 bpm Height: 5'6" SpO2: 94% Weight: 182 lbs 08/28/2015 Blood Pressure 1: 128/76 Code: 8480-6 BMI: 27.9 Code: 95889-2 Heart Rate 1: 80 bpm Height: 5'6" SpO2: 98% Weight: 173 lbs 05/28/2015 Blood Pressure 1: 122/70 Code: 8480-6 BMI: 27.0 Code: 56201-1 Heart Rate 1: 74 bpm Height: 5'6" SpO2: 98% Weight: 167 lbs 04/23/2015 Blood Pressure 1: 110/60 Code: 8480-6 BMI: 27.0 Code: 23210-8 Heart Rate 1: 68 bpm Height: 5'6" [...] fatigue Quality constant 07/05/2018 None hypothyroid Quality 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 P ATIENT, LEVEL IV Diagnosis: Hypothyroidism, unspecified[ICD10: E03.9] Diagnosis: Major depressive disorder, recurrent, moderate[ICD10: F33.1] Diagnosis: Chronic pain syndrome[ICD10: G89.4] Diagnosis: Other male erectile dysfunction[ICD10: N52.8] Diagnosis: Other fatigue[ICD10: R53.83] Diagnosis: Encounter for screening for malignant neoplasm of prostate[ICD10: Z12.5] Leydi Jacobo MD, [facility] CPT-4: 93922 07/05/2018 [id number]) 07350 EST. P ATIENT, LEVEL IV Diagnosis: Chronic pain syndrome[ICD10: G89.4] Diagnosis: Hypothyroidism, unspecified[ICD10: E03.9] Diagnosis: Major depressive disorder, recurrent, moderate[ICD10: F33.1] Leydi Jacobo MD, [facility] CPT-4: 90196 05/04/2018 03457 EST. PATIENT, LEVEL IV Diagnosis: Melena[ICD10: K92.1] Diagnosis: Other malaise[ICD10: R53.81] Diagnosis: Other fatigue[ICD10: R53.83] Diagnosis: Pain in unspecified joint[ICD10: M25.50] Diagnosis: Diarrhea, unspecified[ICD10: R19.7] Denae Jacobo MD, [facility] CPT-4: 03455 03/28/2018 [id number]) 28046 EST. P ATIENT, LEVEL IV Diagnosis: Chronic pain syndrome[ICD10: G89.4] Diagnosis: Hypothyroidism, unspecified[ICD10: E03.9] Diagnosis: Other obesity due to excess calories[ICD10: E66.09] Diagnosis: Major depressive disorder, recurrent, moderate[ICD10: F33.1] Diagnosis: Obstructive sleep apnea (adult) (pediatric)[ICD10: G47.33] Leydi Jacobo MD, [facility] CPT-4: 03934 02/27/2018 22461 EST. PATIENT, LEVEL IV Diagnosis: Other specified hypothyroidism[ICD10: E03.8] Diagnosis: Chronic pain syndrome[ICD10: G89.4] Diagnosis: Major depressive disorder, recurrent, moderate[ICD10: F33.1] Denae Jacobo MD, [facility] CPT-4: 32487 12/01/2017 ([id number]) 20294 EST. P ATIENT, LEVEL IV Diagnosis: Chronic pain syndrome[ICD10: G89.4] Diagnosis: Alcohol dependence, uncomplicated[ICD10: F10.20] Diagnosis: Major depressive disorder, recurrent, moderate[ICD10: F33.1] Leydi Jacobo MD, [facility] CPT-4: 90985 09/29/2017 ([id number]) 76072 EST. P ATIENT, LEVEL IV Diagnosis: Chronic pain syndrome[ICD10: G89.4] Diagnosis: Alcohol dependence, uncomplicated[ICD10: F10.20] Diagnosis: Major depressive disorder, recurrent, moderate[ICD10: F33.1] Leydi Jacobo MD, [facility] CPT-4: 08440 08/11/2017 ([id number]) 16681 EST. P ATIENT, LEVEL III Diagnosis: Chronic pain syndrome[ICD10: G89.4] Diagnosis: Major depressive disorder, recurrent, moderate[ICD10: F33.1] Leydi Jacobo MD, [facility] CPT-4: 85524 06/09/2017 ([id number]) 01306 EST. P ATIENT, LEVEL III Diagnosis: Chronic pain syndrome[ICD10: G89.4] Diagnosis: Pain in left knee[ICD10: M25.562] Leydi Jacobo MD, [facility] CPT- 4: 21481 04/07/2017 75135 EST. PATIENT, LEVEL II Diagnosis: Superficial foreign body of left upper arm, initial encounter[ICD10: S40.852A] Diagnosis: Cellulitis of left upper limb[ICD10: L03.114] Leydi Jacobo MD, [facility] CPT-4: 45095 11/17/2016 41422 EST. PATIENT, LEVEL II Diagnosis: Cellulitis of left upper limb[ICD10: L03.114] Leydi Jacobo MD, [facility] CPT-4: 62515 11/10/2016 ([id number]) 26584 EST. P ATIENT, LEVEL III Diagnosis: Chronic pain syndrome[ICD10: G89.4] Diagnosis: Major depressive disorder, recurrent, moderate[ICD10: F33.1] Leydi Jacobo MD, [facility] CPT-4: 00369 10/14/2016 93232 EST. PATIENT, LEVEL IV Diagnosis: Psychophysiologic insomnia[ICD10: F51.04] Diagnosis: Major depressive disorder, recurrent, moderate[ICD10: F33.1] Diagnosis: Alcohol dependence, uncomplicated[ICD10: F10.20] Diagnosis: Chronic pain syndrome[ICD10: G89.4] Leydi Jacobo MD, [facility] CPT-4: 57612 09/16/2016 ([id number]) 82822 EST. P ATIENT, LEVEL III Diagnosis: Pain in left shoulder[ICD10: M25.512] Diagnosis: Major depressive disorder, recurrent, moderate[ICD10: F33.1] Diagnosis: Psychophysiologic insomnia[ICD10: F51.04] Leydi Jacobo MD, [facility] CPT-4: 26942 08/19/2016 ([id number]) 13603 EST. P ATIENT, LEVEL III Diagnosis: Gastro-esophageal reflux disease without esophagitis[ICD10: K21.9] Diagnosis: Hypothyroidism, unspecified[ICD10: E03.9] Leydi Jacobo MD, [facility] CPT-4: 20971 06/17/2016 ([id number]) 94614 EST. P ATIENT, LEVEL IV Diagnosis: Gastro-esophageal reflux disease without esophagitis[ICD10: K21.9] Diagnosis: Hypothyroidism, unspecified[ICD10: E03.9] Diagnosis: Major depressive disorder, recurrent, moderate[ICD10: F33.1] Leydi Jacobo MD, [facility] CPT-4: 14538 05/12/2016 ([id number]) 89130 EST. P ATIENT, LEVEL III Diagnosis: Cervicalgia[ICD10: M54.2] Diagnosis: Hypothyroidism, unspecified[ICD10: E03.9] Diagnosis: Other male erectile dysfunction[ICD10: N52.8] Leydi Jacobo MD, [facility] CPT-4: 20753 02/16/2016 ([id number]) 54719 EST. P ATIENT, LEVEL III Diagnosis: Lumbago with sciatica, unspecified side[ICD10: M54.40] Diagnosis: Other male erectile dysfunction[ICD10: N52.8] Leydi Jacobo MD, [facility] CPT-4: 44927 11/17/2015 ([id number]) 89288 EST. P ATIENT, LEVEL III Diagnosis: Lumbago with sciatica, unspecified side[ICD10: M54.40] Diagnosis: Hypothyroidism, unspecified[ICD10: E03.9] Diagnosis: Other male erectile dysfunction[ICD10: N52.8] Leydi Jacobo MD, [facility] CPT-4: 03351 08/28/2015 ([id number]) 92729 EST. P ATIENT, LEVEL III Diagnosis: Back pain, chronic[ICD9: 724.5] Diagnosis: Depression[ICD9: 311] Diagnosis: Hypothyroid[ICD9: 244.9] Diagnosis: Bilateral calf pain[ICD9: 729.5] Julieta Jacobo MD, [facility] CPT-4: 24415 05/28/2015 ([id number]) OFFICE VISI T, NEW - LEVEL 4 Diagnosis: Back pain, chronic[ICD9: 724.5] Diagnosis: Depression[ICD9: 311] Diagnosis: Hypothyroid[ICD9: 244.9] Julieta Jacobo MD, [facility] CPT-4: 74551 04/23/2015 Plan of Care Planned Activity Notes [...] exposure. No change in current medications. Fatigue-weight tatp-RI-nidyq labs including testosterone level 07/05/2018 Visit Plan: [...] exposure. No change in current medications. Fatigue-weight yiev-RK-botzv labs including testosterone level 07/05/2018 Appointment: Ley[facility]ower [facility]el[phone] (15 min) Moderate 07/05/2018 Patient [...] BID 05/04/2018 Appointment: [facility]Ptel[facility] [phone] [phone] (15 min) Moderate 05/04/2018 Patient [...] this time. 02/27/2018 Appointment: Leydi Hightower WPtel: [phone] (15 min) Moderate 02/27/2018 Patient Education: Patient [...] of control. 12/01/2017 Appointment: Denae Martínez WPtel: [phone] (30 min) Complex 12/01/2017 Patient [...] treatment 09/29/2017 Appointment: Leydi Hightower WPtel: [phone] (30 min) Complex 09/29/2017 Patient Education: Patient [...] ider 08/11/2017 Appointment: [facility]Ptel[facility] [phone] [phone] (30 min) Complex 08/11/2017 Patient Education: [...] medications. 06/09/2017 Appointment: [facility]el[facility] [phone] [phone] (30 min) Complex 06/09/2017 Patient Education: [...] completely resolve 11/17/2016 Appointment: Leydi Hightower WPtel: [address] [place], [place] [phone] (30 min) Complex 11/17/2016 Patient Education: Patient [...] in pain. 11/10/2016 Appointment: Leydi Hightower WPtel: [address] [place] [address] (30 min) Complex 11/10/2016 Patient Education: Patient [...] of plan. 10/14/2016 Appointment: Leydi Hightower WPtel: [address] [place], [place] [phone] (30 min) Complex 10/14/2016 Patient Education: Patient [...] try 09/16/2016 Appointment: Leydi Hightower WPtel: [phone] [phone] (30 min) Complex 09/16/2016 Patient Education: Patient Medication Summary Completed 09/16/2016 Visit Plan: Left shoulder and elbow pain-xray shoulder and elbow Wehamjxbnr-sweltgvk-sksvntsimlwe-d/c trazodone-start remeron at bedtime Pt has been [...] this patient. 08/19/2016 Appointment: Leydi Hightower WPtel: [phone] (30 min) Complex 08/19/2016 Patient Education: Patient [...] Obesity Completed 06/17/2016 Appointment: Leydi Hightower WPtel: [phone] (30 min) Complex 06/09/2016 Visit Plan: Esophageal [...] of control. 05/12/2016 Appointment: Leydi Hightower WPtel: [address] [place], [place] [phone] (30 min) Complex 05/12/2016 Patient Education: Patient [...] in office. 05/28/2015 Appointment: Leydi Hightower WPtel: [address] [place] [phone] (30 min) Complex 05/28/2015 Patient Education: Patient [...] [facility] - Saving AutoInj - Levothyroxine - - Dynamic Portal ID Completed 04/23/2015 Care Plan: [id number] Ordered 04/23/2015 Instructions Comment . Chronic Pain [...] exposure. No change in current medications. Fatigue-weight juxy-SL-pfjyg labs including testosterone level . Chronic Pain [...] exposure. No change in current medications. Fatigue-weight prci-PN-qhwur labs including testosterone level Get Immodium over [...] and elbow pain-xray shou lder and elbow Tkzqlaqibd-woijefgx-iektyueepccn-d/c trazodone-start remeron at bedtime Pt has been [...] LABS AT NEXT A PPT INCREASE ACID CLIENT SUPPORT REPRESENTATIVE TO TWICE DAILY . Chronic Pain Syndrome [...]
--- OUTSIDE RECORDS SUMMARY | 2020-03-17 15:14 | XMS REPORT | CCD ---
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 Name Role Phone PP Unavailable CCM Unavailable Summary Purpose Interface Exchange Insurance Providers Payer name Policy type / Coverage type Covered alliance party ID Effective Begin Date Effective End Date WPS Medicare Part B Medicare Part B [id number] Unknown Unknown [facility] icare Part B [id number] Unknown Unk nown Family history Father Diagnosis Age At Onset Colon cancer Unknown Social History Social History Element Codes Description Effective Dates Marital status Unknown D ivorced 04/23/[address]: 549586904 Never smoker 04/23/[address]: 468996 Currently drinks alcohol occasionally drinks 04/23/2015 Allergies, Adverse Reactions, Alerts Allergies, Adverse Reactions, Alerts data not found Past Medical History Illness Codes Condition Status Onset Date Resolved Date Anemia, unspecified ICD- 9: 285.9 ICD-10: D64.9 Active 12/06/2017 Unknown Alcohol dependence, uncomplicated ICD-9: 303.90 ICD-10: F10.20 Active 09/15/2016 Unknown Chronic pain syndrome ICD-9: 338.4 ICD-10: [...] Condition Codes Effectiv e Dates Condition Status Anemia, unspecified ICD- 9: 285.9 ICD-10: D64.9 12/06/2017 Active Alcohol dependence, uncomplicated ICD-9: 303.90 ICD-10: F10.20 09/15/2016 Active Chronic pain syndrome ICD-9: 338.4 ICD-10: [...] Instructions levothyroxine 175 mc g tablet RxNorm: 925887 1 Tablet(s) PO daily 12/14/2017 04/12/2018 Active levothyroxine 175 mc g tablet RxNorm: 392729 1 Tablet(s) PO daily 12/14/2017 12/13/2017 Inactive baclofen 10 mg tablet RxNorm: 422532 Tablet(s) TAKE ONE TABLET BY MOUTH THREE TIMES A DAY NEEDED 12/13/2017 01/11/2018 Active baclofen 10 mg tablet RxNorm: 226663 TAKE ONE TABLET BY MOUTH THREE TIMES A D AY NEEDED 12/13/2017 12/12/2017 Inactive morphine 30 mg table t, crush resistant, extended release RxNorm: 7179018 1 Tablet(s) PO BID 12/12/2017 02/09/2018 Active clonazepam 1 mg tablet RxNorm: 975435 1/2 Tablet(s) PO daily 12/01/2017 08/27/2018 Active trazodone 50 mg tablet RxNorm: 066179 1/2 to 1 Tablet(s) QHS as needed 12/01/2017 03/30/2018 Ac tive Opana ER 15 mg table t, crush resistant, extended release RxNorm: 669161 1 Tablet(s) PO Q12H 12/01/2017 02/28/2018 Active oxymorphone 5 mg tablet RxNorm: 268947 1 Tablet(s) PO Q6 PRN 12/01/2017 02/28/2018 Active Remeron 15 mg tablet RxNorm: 895305 Tablet(s) TAKE ONE TABLET BY MOUTH EVERY NIGHT AT BEDTIME 12/01/2017 02/28/2018 Active trazodone 50 mg tablet RxNorm: 624429 1/2 Tablet(s) as needed 1 Tablet(s) PO Q HS 12/01/2017 11/30/2017 In active clonazepam 1 mg tablet RxNorm: 544921 1/2 Tablet(s) PO daily 11/30/2017 11/30/2017 Inactive Remeron 15 mg tablet RxNorm: 106499 TAKE ONE TABLET BY MOUTH EVERY NIGHT AT BEDTIME 11/29/2017 11/30/2017 Inactive levothyroxine 200 mc g tablet RxNorm: 322622 TAKE ONE TABLET BY [facility] DAILY 11/15/2017 12/13/2017 In active diclofenac sodium 75 mg tablet,delayed release RxNorm: 833175 1 Tablet(s) PO BID 11/07/2017 05/05/2018 Ac tive baclofen 10 mg tablet RxNorm: 876274 TAKE ONE TABLET BY MOUTH THREE TIMES A D AY NEEDED 11/07/2017 12/06/2017 Inactive liothyronine 5 mcg t ablet RxNorm: 302117 TAKE ONE TABLET BY [facility] DAILY 10/27/2017 07/23/2018 Ac tive tizanidine 4 mg tablet RxNorm: 988700 1 Tablet(s) PO TID as needed 10/18/2017 12/16/2017 Active oxymorphone 5 mg tablet RxNorm: 506133 1 Tablet(s) PO Q6 PRN 09/29/2017 11/27/2017 Inactive morphine 30 mg table t, crush resistant, extended release RxNorm: 2709660 1 Tablet(s) PO BID 09/29/2017 11/28/2017 Inactive baclofen 10 mg tablet RxNorm: 957344 1 Tablet(s) PO TID as needed 09/11/2017 10/10/2017 Inactive baclofen 10 mg tablet RxNorm: 059210 1 Tablet(s) PO TID as needed 08/11/2017 09/09/2017 Inactive Opana ER 15 mg table t, crush resistant, extended release RxNorm: 868881 1 Tablet(s) PO Q12H 08/11/2017 09/28/2017 Inactive Remeron 15 mg tablet RxNorm: 192137 TAKE ONE TABLET BY MOUTH EVERY NIGHT AT BEDTIME 08/02/2017 10/30/2017 Inactive oxymorphone 5 mg tablet RxNorm: 865922 1 Tablet(s) PO Q6 PRN 08/02/2017 09/28/2017 Inactive Opana ER 5 mg tablet , crush resistant, extended release RxNorm: 603964 1 Tablet(s) PO Q6 PRN 08/01/2017 08/10/2017 Inactive Protonix 40 mg table t,delayed release RxNorm: 276974 TAKE ONE TABLET BY [facility] DAILY 06/26/2017 10/23/2017 In active Protonix 40 mg table t,delayed release RxNorm: 244062 TAKE ONE TABLET BY [facility] DAILY 06/26/2017 06/25/2017 In active bupropion HCl XL 300 mg 24 hr tablet, extended release RxNorm: 409829 TAKE ONE TABLET BY MOUTH DAILY 06/13/2017 12/09/2017 Inactive tizanidine 4 mg tablet RxNorm: 045640 1 Tablet(s) PO TID as needed 06/13/2017 06/12/2017 Inactive tizanidine 4 mg tablet RxNorm: 770238 1 Tablet(s) PO TID as needed 06/13/2017 09/10/2017 Inactive baclofen 10 mg tablet RxNorm: 328441 1 Tablet(s) PO TID as needed 06/13/2017 07/12/2017 Inactive Opana ER 15 mg table t, crush resistant, extended release RxNorm: 202150 1 Tablet(s) PO Q12H 06/09/2017 08/07/2017 Inactive Opana ER 5 mg tablet , crush resistant, extended release RxNorm: 468510 1 Tablet(s) PO Q6 PRN 06/09/2017 07/31/2017 Inactive diclofenac sodium 75 mg tablet,delayed release RxNorm: 265062 1 Tablet(s) PO BID 06/09/2017 09/06/2017 In active clonazepam 1 mg tablet RxNorm: 025839 1/2 Tablet(s) PO daily 05/24/2017 11/18/2017 Inactive bupropion HCl XL 300 mg 24 hr tablet, extended release RxNorm: 406873 TAKE ONE TABLET BY MOUTH DAILY 03/16/2017 06/12/2017 Inactive clonazepam 1 mg tablet RxNorm: 472295 1/2 Tablet(s) PO daily 02/22/2017 05/18/2017 Inactive Remeron 15 mg tablet RxNorm: 258244 TAKE ONE TABLET BY MOUTH EVERY NIGHT AT BEDTIME 02/06/2017 2017 Inactive Protonix 40 mg table t,delayed release RxNorm: 085340 TAKE ONE TABLET BY [facility] DAILY 01/26/2017 06/24/2017 In active mupirocin 2 % topica l ointment RxNorm: 433669 1 Application TOP BID 01/12/2017 01/18/2017 Inactive Bactrim DS 800 mg-16 0 mg tablet RxNorm: 785528 1 Tablet(s) PO BID 11/17/2016 11/23/2016 Inactive mupirocin 2 % topica l ointment RxNorm: 712600 1 Application TOP BID 11/10/2016 11/16/2016 Inactive Bactrim DS 800 mg-16 0 mg tablet RxNorm: 608306 1 Tablet(s) PO BID 11/10/2016 11/16/2016 Inactive bupropion HCl XL 300 mg 24 hr tablet, extended release RxNorm: 189128 TAKE ONE TABLET BY MOUTH DAILY 11/07/2016 03/06/2017 Inactive liothyronine 5 mcg t ablet RxNorm: 985890 1 Tablet(s) PO daily 11/01/2016 10/26/2017 Inactive levothyroxine 200 mc g tablet RxNorm: 559826 1 Tablet(s) PO daily 10/04/2016 09/28/2017 Inactive clonazepam 1 mg tablet RxNorm: 572255 1/2 Tablet(s) PO daily 09/21/2016 03/18/2017 Inactive clonazepam 1 mg tablet RxNorm: 619349 1/2 Tablet(s) PO daily 09/16/2016 09/20/2016 Inactive Abilify 2 mg tablet RxNorm: 417661 1 Tablet(s) PO daily 09/16/2016 10/13/2016 Inactive trazodone 50 mg tablet RxNorm: 459292 1/2 Tablet(s) as needed 1 Tablet(s) PO Q HS 09/16/2016 01/13/2017 In active morphine 15 mg immed iate release tablet RxNorm: 079445 1 Tablet(s) PO Q6 PRN 09/16/2016 04/06/2017 In active baclofen 10 mg tablet RxNorm: 042549 1 Tablet(s) PO TID as needed 09/16/2016 06/12/2017 Inactive MS Contin 30 mg tabl et,extended release RxNorm: 185218 1 Tablet(s) PO Q12H 09/16/2016 04/06/2017 In active Remeron 15 mg tablet RxNorm: 713222 1 Tablet(s) PO QHS 08/19/2016 09/15/2016 Inactive levothyroxine 200 mc g tablet RxNorm: 319468 1 Tablet(s) PO daily 08/11/2016 10/03/2016 Inactive bupropion HCl XL 300 mg 24 hr tablet, extended release RxNorm: 513687 TAKE ONE TABLET BY MOUTH DAILY 08/11/2016 11/06/2016 Inactive Protonix 40 mg table t,delayed release RxNorm: 986228 1 Tablet(s) PO daily 06/17/2016 12/13/2016 In active bupropion HCl XL 300 mg 24 hr tablet, extended release RxNorm: 265731 1 Tablet(s) PO daily 05/12/2016 07/10/2016 Inactive bupropion HCl XL 300 mg 24 hr tablet, extended release RxNorm: 273652 1 Tablet(s) PO daily 05/12/2016 05/11/2016 Inactive Cialis 20 mg tablet RxNorm: 525655 1 Tablet(s) PO PRN 02/16/2016 No Stop Date Active not more than 1 tab in 24 hours morphine ER 10 mg ca psule,extended release pellets RxNorm: 878385 1 Tablet(s) PO Q6 as needed 02/16/2016 11/16/2016 Inactive clonazepam 1 mg tablet RxNorm: 711080 1/2 Tablet(s) PO BID 02/16/2016 09/15/2016 Inactive trazodone 50 mg tablet RxNorm: 969030 1/2 Tablet(s) as needed 1 Tablet(s) PO Q HS 02/16/2016 08/18/2016 In active trazodone 50 mg tablet RxNorm: 444167 1/2 Tablet(s) 1 Tablet(s) PO QHS 11/17/2015 02/15/2016 In active trazodone 50 mg tablet RxNorm: 643524 1 Tablet(s) PO QHS 10/19/2015 11/16/2015 Inactive levothyroxine 200 mc g tablet RxNorm: 088715 1 Tablet(s) PO daily 10/02/2015 08/10/2016 Inactive Wellbutrin XL 150 mg 24 hr tablet, extended release RxNorm: 987516 1 Tablet(s) PO daily 10/02/2015 05/11/2016 Inactive levothyroxine 200 mc g tablet RxNorm: 579448 1 Tablet(s) PO daily 09/30/2015 10/01/2015 Inactive Wellbutrin XL 150 mg 24 hr tablet, extended release RxNorm: 620067 1 Tablet(s) PO daily 09/30/2015 10/01/2015 Inactive trazodone 50 mg tablet RxNorm: 805236 1 Tablet(s) PO QHS 09/11/2015 10/10/2015 Inactive trazodone 50 mg tablet RxNorm: 347005 1 Tablet(s) PO QHS 09/11/2015 09/10/2015 Inactive Cymbalta 30 mg capsu le,delayed release RxNorm: 718651 1 Capsule(s) PO daily 09/07/2015 11/16/2015 In active Cymbalta 60 mg capsu le,delayed release RxNorm: 689356 1 Capsule(s) PO daily 08/31/2015 08/30/2015 In active Cymbalta 30 mg capsu le,delayed release RxNorm: 233507 1 Capsule(s) PO daily take with 60mg to make 90 mg daily 08/31/2015 09/06/2015 Inactive Cymbalta 30 mg capsu le,delayed release RxNorm: 046735 1 Capsule(s) PO daily take with 60mg to make 90 mg daily 08/31/2015 08/30/2015 Inactive Cymbalta 60 mg capsu le,delayed release RxNorm: 318434 1 Capsule(s) PO daily x 7 days and then increase to 90mg daily 08/31/2015 09/07/2015 Inactive levothyroxine 200 mc g tablet RxNorm: 701072 1 Tablet(s) PO daily 08/14/2015 09/29/2015 Inactive Wellbutrin XL 150 mg 24 hr tablet, extended release RxNorm: 796689 1 Tablet(s) PO daily 07/14/2015 09/29/2015 Inactive Cialis 20 mg tablet RxNorm: 465427 1 Tablet(s) PO PRN 07/02/2015 02/15/2016 Inactive not more than 1 tab in 24 hours liothyronine 5 mcg t ablet RxNorm: 750538 1 Tablet(s) PO daily 2015 05/29/2016 Inactive clonazepam 1 mg tablet RxNorm: 049783 1 Tablet(s) PO TID 2015 02/15/2016 Inactive minocycline 50 mg ta blet RxNorm: 398777 1 Tablet(s) PO daily 2015 05/11/2016 Inactive Wellbutrin XL 150 mg 24 hr tablet, extended release RxNorm: 937607 1 Tablet(s) PO daily 04/23/2015 07/13/2015 Inactive levothyroxine 200 mc g tablet RxNorm: 406794 1 Tablet(s) PO daily 04/23/2015 08/13/2015 Inactive diclofenac oral RxNorm: 3355 oral No Start Date Active Aleve oral RxNorm: 355023 oral No Start Date Active Tylenol 500 mg RxNorm: oral No Start Date Active morphine ER 15 mg ta blet,extended release RxNorm: 807091 oral No Start Date 11/16/2016 Inactive Trazadone 25 mg RxNorm: 2 PO daily No Start Date 09/11/2015 Inactive clonazepam 1 mg tablet RxNorm: 672855 1 Tablet(s) PO QHS No Start Date 06/04/2015 Inactive Wellbutrin XL 150 mg 24 hr tablet, extended release RxNorm: 927474 1 Tablet(s) PO daily No Start Date 04/22/2015 Inactive minocycline 50 mg ta blet RxNorm: 651097 1 Tablet(s) PO daily No Start Date 06/04/2015 Inactive methadone 5 mg tablet RxNorm: 209535 1 Tablet(s) PO Q8 No Start Date 02/15/2016 Inactive Protonix 40 mg table t,delayed release RxNorm: 758651 Tablet(s) PO daily No Start Date 06/16/2016 Inactive Opana ER 15 mg table t, crush resistant, extended release RxNorm: 381138 1 Tablet(s) PO Q12H No Start Date 06/08/2017 Inactive MS Contin 30 mg tabl et,extended release RxNorm: 225939 1 Tablet(s) PO Q12H No Start Date 02/15/2016 Inactive Opana ER 15 mg table t, crush resistant, extended release RxNorm: 383951 1 Tablet(s) PO BID No Start Date 09/15/2016 Inactive liothyronine 5 mcg t ablet RxNorm: 296935 1 Tablet(s) PO daily No Start Date 06/04/2015 Inactive Cialis 20 mg tablet RxNorm: 586925 1 Tablet(s) PO PRN No Start Date 07/01/2015 Inactive not more than 1 tab in 24 hours baclofen 10 mg tablet RxNorm: 390622 1 Tablet(s) PO TID as needed No Start Date 05/11/2016 Inactive morphine 15 mg immed iate release tablet RxNorm: 330770 1 Tablet(s) PO Q6 PRN as needed No Start Date 02/15/2016 Inactive levothyroxine 200 mc g tablet RxNorm: 075504 1 Tablet(s) PO daily No Start Date 04/22/2015 Inactive Opana ER 5 mg tablet , crush resistant, extended release RxNorm: 479958 1 Tablet(s) PO Q6 No Start Date 06/08/2017 Inactive Medication Administered No Medication Administered data Immunizations No Immunization data Assessments Condition Codes Effectiv e Dates Anemia, unspecified ICD-10: D64.9 ICD-9: 285.9 12/06/2017 Chronic pain syndrome ICD-10: G89.4 ICD-9: 338.4 12/01/2017 Other specified hypothyroidism ICD-1 0: E03.8 ICD-9: 244.8 12/01/2017 Major depressive disorder, recurrent, moderate ICD-10: F33.1 ICD-9: 296.32 12/01/2017 Alcohol dependence, uncomplicated IC D-10: F10.20 [...] For Visit Effective Dates Notes back pain 12/01/2017 Opa na back pain [...] Observation Code Item Item Code Result Date Ferritin Ord22 FERRITIN 5.7 ng/mL 12/06/2017 Tibc Ord40 Iron 33 ug/dl 12/06/2017 Tibc Ord40 UIBC 431 ug/dL 12/06/2017 Tibc Ord40 TIBC 464 ug/dL 12/06/2017 Tibc Ord40 Fe-%Sat 7.1 % 12/06/2017 Free T4 Hrp321 FREE T4 1.82 ng/dL 12/01/2017 Tsh Ord6 [...] 27.0 pg 12/01/2017 Cbc With Differential Ord2 Dent% 10.6 % 12/01/2017 Cbc With Differential Ord2 [...] 1.92 K/ul 12/01/2017 Cbc With Differential Ord2 Dent ABS# 0.4 K/ul 12/01/2017 Cbc With Differential Ord2 Eos ABS# 0.2 K/ul 12/01/2017 Cbc With Differential Ord2 Baso ABS# 0.0 K/ul 12/01/2017 Comp Metabolic Hfj697 NA 136 mEq/L 12/01/2017 Comp Metabolic Gun366 K 4.6 mEq/L 12/01/2017 Comp Metabolic Xhw289 CL 102 mEq/L 12/01/2017 Comp Metabolic Mar851 CO2 27.0 mEq/L 12/01/2017 Comp Metabolic Qrn454 AN ION GAP 12 12/01/2017 Comp Metabolic Qwg428 GL UCOSE 90 mg/dL 12/01/2017 Comp Metabolic Qbw924 Cr eat 0.7 mg/dL 12/01/2017 Comp Metabolic Neo778 eG FR 123 ml/min/1.73m2 03/2018 Comp Metabolic Mgq474 BUN 4 mg/dL 12/01/2017 Comp Metabolic Hpz725 B/ C Ratio 5.6 Ratio 12/01/2017 Comp Metabolic Gjf523 CA LCIUM 9.0 mg/dL 12/01/2017 Comp Metabolic Zcp694 AL K PHOS 67 U/L 12/01/2017 Comp Metabolic Ufw683 T(SGOT) 30 U/L 12/01/2017 Comp Metabolic Hfq212 AL T(SGPT) 29 U/L 12/01/2017 Comp Metabolic Sne887 BI LI T 0.3 mg/dL 12/01/2017 Comp Metabolic Wgf215 AL BUMIN 4.1 g/dL 12/01/2017 Comp Metabolic Jpn891 TP RO 6.1 g/dL 12/01/2017 Comp Metabolic Ybh488 GL OB 2.0 g/dL 12/01/2017 Comp Metabolic Fwg709 A/ G Ratio 2.0 Ratio 12/01/2017 Comp Metabolic Xzr572 Os mo 268 mOsmo 12/01/2017 Comp Metabolic Vxl803 NA 136 mEq/L 02/16/2016 Comp Metabolic Kch521 K 4.2 mEq/L 02/16/2016 Comp Metabolic Qfw298 CL 104 mEq/L 02/16/2016 Comp Metabolic Wax946 CO2 20.0 mEq/L 02/16/2016 Comp Metabolic Hnq000 AN ION GAP 16 02/16/2016 Comp Metabolic Qbk374 GL UCOSE 71 mg/dL 02/16/2016 Comp Metabolic Bgk279 Cr eat 0.8 mg/dL 02/16/2016 Comp Metabolic Uqc694 eG FR 113 ml/min/1.73m2 01/26 Comp Metabolic Ulg611 BUN 7 mg/dL 02/16/2016 Comp Metabolic Wjr306 B/ C Ratio 9.1 Ratio 02/16/2016 Comp Metabolic Qmm246 CA LCIUM 9.4 mg/dL 02/16/2016 Comp Metabolic Xoj479 AL K PHOS 57 U/L 02/16/2016 Comp Metabolic Pji720 T(SGOT) 30 U/L 02/16/2016 Comp Metabolic Hhn504 AL T(SGPT) 27 U/L 02/16/2016 Comp Metabolic Yyd500 BI LI T 0.2 mg/dL 02/16/2016 Comp Metabolic Uhu084 AL BUMIN 4.4 g/dL 02/16/2016 Comp Metabolic Npw720 TP RO 6.5 g/dL 02/16/2016 Comp Metabolic Faz146 GL OB 2.1 g/dL 02/16/2016 Comp Metabolic Gez164 A/ G Ratio 2.1 Ratio 02/16/2016 Comp Metabolic Zbd986 Os mo 268 mOsmo 02/16/2016 Free T4 Iur631 FREE T4 1.20 ng/dL 02/16/2016 Cbc With [...] 90.6 fl 02/16/2016 Cbc With Differential Ord2 Dent% 9.6 % 02/16/2016 Cbc With Differential Ord2 [...] 1.50 K/ul 02/16/2016 Cbc With Differential Ord2 Dent ABS# 0.5 K/ul 02/16/2016 Cbc With Differential [...] Result Effective Dates Constitutional No recent illness 12/01/2017 Constitutional No [...] No Procedures data Vital Signs Date Vital 12/01/2017 Blood Pressure 1: 132/72 Code: 8480-6 BMI: 33.4 Code: 05647-1 Heart Rate 1: 82 bpm Height: 5'6" SpO2: 97% Weight: 207 lbs 09/29/2017 Blood Pressure 1: 124/68 Code: 8480-6 BMI: 32.1 Code: 75825-0 Heart Rate 1: 77 bpm Height: 5'6" SpO2: 98% Weight: 199 lbs 08/11/2017 Blood Pressure 1: 154/82 Code: 8480-6 BMI: 31.6 Code: 30827-7 Heart Rate 1: 75 bpm Height: 5'6" SpO2: 98% Weight: 196 lbs 06/09/2017 Blood Pressure 1: 148/88 Code: 8480-6 BMI: 28.6 Code: 99480-7 Heart Rate 1: 88 bpm Height: 5'6" SpO2: 98% Weight: 177 lbs 04/07/2017 Blood Pressure 1: 140/84 Code: 8480-6 BMI: 30.3 Code: 70846-3 Heart Rate 1: 81 bpm Height: 5'6" SpO2: 99% Weight: 188 lbs 11/17/2016 Blood Pressure 1: 130/72 Code: 8480-6 Heart Rate 1: 63 bpm Height: SpO2: 93% Weight: 11/10/2016 Blood Pressure 1: 128/86 Code: 8480-6 BMI: 30.3 Code: 64625-1 Heart Rate 1: 84 bpm Height: 5'6" SpO2: 96% Weight: 188 lbs 10/14/2016 Heigh t: 5'6" 09/16/2016 Blood Pressure 1: 130/80 Code: 8480-6 BMI: 30.3 Code: 37678-7 Heart Rate 1: 67 bpm Height: 5'6" SpO2: 99% Weight: 188 lbs 08/19/2016 Blood Pressure 1: 110/62 Code: 8480-6 BMI: 29.9 Code: 81625-3 Heart Rate 1: 70 bpm Height: 5'6" SpO2: 97% Weight: 185 lbs 06/17/2016 Blood Pressure 1: 112/68 Code: 8480-6 BMI: 27.6 Code: 73492-4 Heart Rate 1: 61 bpm Height: 5'6" SpO2: 98% Weight: 171 lbs 05/12/2016 Blood Pressure 1: 130/76 Code: 8480-6 BMI: 29.7 Code: 55695-9 Heart Rate 1: 103 bpm Height: 5'6" SpO2: 98% Weight: 184 lbs 02/16/2016 Blood Pressure 1: 140/82 Code: 8480-6 BMI: 28.7 Code: 20959-2 Heart Rate 1: 66 bpm Height: 5'6" SpO2: 99% Weight: 178 lbs 11/17/2015 Blood Pressure 1: 120/74 Code: 8480-6 BMI: 29.4 Code: 36866-1 Heart Rate 1: 90 bpm Height: 5'6" SpO2: 94% Weight: 182 lbs 08/28/2015 Blood Pressure 1: 128/76 Code: 8480-6 BMI: 27.9 Code: 77030-6 Heart Rate 1: 80 bpm Height: 5'6" SpO2: 98% Weight: 173 lbs 05/28/2015 Blood Pressure 1: 122/70 Code: 8480-6 BMI: 27.0 Code: 08525-7 Heart Rate 1: 74 bpm Height: 5'6" SpO2: 98% Weight: 167 lbs 04/23/2015 Blood Pressure 1: 110/60 Code: 8480-6 BMI: 27.0 Code: 75051-2 Heart Rate 1: 68 bpm Height: 5'6" [...] Encounters Encounter Performer Loca tion Codes Date 80411 EST. PATIENT, LEVEL IV Diagnosis: Other specified hypothyroidism[ICD10: E03.8] Diagnosis: Chronic pain syndrome[ICD10: G89.4] Diagnosis: Major depressive disorder, recurrent, moderate[ICD10: F33.1] Denae Jacobo MD, [facility] CPT-4: 39893 12/01/2017 ([id number]) 86679 EST. P ATIENT, LEVEL IV Diagnosis: Chronic pain syndrome[ICD10: G89.4] Diagnosis: Alcohol dependence, uncomplicated[ICD10: F10.20] Diagnosis: Major depressive disorder, recurrent, moderate[ICD10: F33.1] Leydi Jacobo MD, [facility] CPT-4: 07665 09/29/2017 ([id number]) 04674 EST. P ATIENT, LEVEL IV Diagnosis: Chronic pain syndrome[ICD10: G89.4] Diagnosis: Alcohol dependence, uncomplicated[ICD10: F10.20] Diagnosis: Major depressive disorder, recurrent, moderate[ICD10: F33.1] Leydi Jacobo MD, [facility] CPT-4: 10539 08/11/2017 ([id number]) 14091 EST. P ATIENT, LEVEL III Diagnosis: Chronic pain syndrome[ICD10: G89.4] Diagnosis: Major depressive disorder, recurrent, moderate[ICD10: F33.1] Leydi Jacobo MD, [facility] CPT-4: 25214 06/09/2017 ([id number]) 70909 EST. [facility] Diagnosis: Chronic pain syndrome[ICD10: G89.4] Diagnosis: Pain in left knee[ICD10: M25.562] Leydi Jacobo MD, [facility] CPT- 4: 29495 04/07/2017 [id number] EST. PATIENT, LEVEL II Diagnosis: Superficial foreign body of left upper arm, initial encounter[ICD10: S40.852A] Diagnosis: Cellulitis of left upper limb[ICD10: L03.114] Leydi Jacobo MD, [facility] CPT-4: 45899 11/17/2016 [id number] EST. PATIENT, LEVEL II Diagnosis: Cellulitis of left upper limb[ICD10: L03.114] Leydi Jacobo MD, [facility] CPT-4: 52019 11/10/2016 ([id number]) 61838 EST. P ATIENT, LEVEL III Diagnosis: Chronic pain syndrome[ICD10: G89.4] Diagnosis: Major depressive disorder, recurrent, moderate[ICD10: F33.1] Leydi Jacobo MD, [facility] CPT-4: 51028 10/14/2016 [id number] EST. PATIENT, LEVEL IV Diagnosis: Psychophysiologic insomnia[ICD10: F51.04] Diagnosis: Major depressive disorder, recurrent, moderate[ICD10: F33.1] Diagnosis: Alcohol dependence, uncomplicated[ICD10: F10.20] Diagnosis: Chronic pain syndrome[ICD10: G89.4] Leydi Jacobo MD, [facility] CPT-4: 17608 09/16/2016 ([id number]) 52844 EST. P ATIENT, LEVEL III Diagnosis: Pain in left shoulder[ICD10: M25.512] Diagnosis: Major depressive disorder, recurrent, moderate[ICD10: F33.1] Diagnosis: Psychophysiologic insomnia[ICD10: F51.04] Leydi Jacobo MD, [facility] CPT-4: 43426 08/19/2016 ([id number]) 38551 EST. P ATIENT, LEVEL III Diagnosis: Gastro-esophageal reflux disease without esophagitis[ICD10: K21.9] Diagnosis: Hypothyroidism, unspecified[ICD10: E03.9] Leydi Jacobo MD, [facility] CPT-4: 05948 06/17/2016 ([id number]) 57662 EST. P ATIENT, LEVEL IV Diagnosis: Gastro-esophageal reflux disease without esophagitis[ICD10: K21.9] Diagnosis: Hypothyroidism, unspecified[ICD10: E03.9] Diagnosis: Major depressive disorder, recurrent, moderate[ICD10: F33.1] Leydi Jacobo MD, [facility] CPT-4: 95819 05/12/2016 ([id number]) 54036 EST. P ATIENT, LEVEL III Diagnosis: Cervicalgia[ICD10: M54.2] Diagnosis: Hypothyroidism, unspecified[ICD10: E03.9] Diagnosis: Other male erectile dysfunction[ICD10: N52.8] Leydi Jacobo MD, [facility] CPT-4: 63435 02/16/2016 ([id number]) 79638 EST. P ATIENT, LEVEL III Diagnosis: Lumbago with sciatica, unspecified side[ICD10: M54.40] Diagnosis: Other male erectile dysfunction[ICD10: N52.8] Leydi Jacobo MD, [facility] CPT-4: 96773 11/17/2015 ([id number]) 18900 EST. P ATIENT, LEVEL III Diagnosis: Lumbago with sciatica, unspecified side[ICD10: M54.40] Diagnosis: Hypothyroidism, unspecified[ICD10: E03.9] Diagnosis: Other male erectile dysfunction[ICD10: N52.8] Leydi Jacobo MD, [facility] CPT-4: 14088 08/28/2015 ([id number]) 70289 EST. P ATIENT, LEVEL III Diagnosis: Back pain, chronic[ICD9: 724.5] Diagnosis: Depression[ICD9: 311] Diagnosis: Hypothyroid[ICD9: 244.9] Diagnosis: Bilateral calf pain[ICD9: 729.5] [facility] CPT-4: 74400 05/28/2015 ([id number]) OFFICE VISI T, NEW - LEVEL 4 Diagnosis: Back pain, chronic[ICD9: 724.5] Diagnosis: Depression[ICD9: 311] Diagnosis: Hypothyroid[ICD9: 244.9] [facility] CPT-4: 91615 04/23/2015 Plan of Care Planned Activity Notes C odes Status Date Patient Education: Patient Medication Summary Completed 12/06/2017 [...] control. 12/01/2017 App[facility] [phone] [phone] ([facility] Complex 12/01/2017 Patient [...] outpatient treatment 09/29/2017 Appointment: Le[phone] ([facility] [place] Complex 09/29/2017 Patient [...] cons ider 08/11/2017 Appointment: Leydi Hightower WPtel: [phone] (30 min) Complex 08/11/2017 Patient Education: Patient [...] current medications. 06/09/2017 Appointment: Leydi Hightower WPtel: [phone] (30 min) Complex 06/09/2017 Patient Education: Patient [...] completely resolve 11/17/2016 Appointment: Leydi Hightower WPtel: [phone] (30 min) Complex 11/17/2016 Patient Education: Patient [...] in pain. 11/10/2016 Appointment: Leydi Hightower WPtel: [address] [place], [place] [phone] (30 min) Complex 11/10/2016 Patient Education: Patient [...] of plan. 10/14/2016 Appointment: Leydi Hightower WPtel: [address] [place], [place] [phone] (30 min) Complex 10/14/2016 Patient Education: Patient Medication Summary Completed 10/14/2016 Visit Plan: Insomnia-did not tolera rhaat remeron so we start taking trazodone and is doing well-sleep is improved Depression-uncontrolled but denies suicidal ideation-add abilify 2mg daily-continue wellbutrin-follow up in 1 month, sooner if needed. Patient and verbalized understanding if plan. Alchohol use-recommend patient begin cutting back on alcohol intake gradually- patient states he will try 09/16/2016 Appointment: Leydi Hightower WPtel: [address] [place], [place] [phone] (30 min) Complex 09/16/2016 Patient Education: Patient Medication Summary Completed 09/16/2016 Visit Plan: Left shoulder and elbow pain-xray shoulder and elbow Dhhatxphze-vathllql-iyqtsuxsnscf-d/c trazodone-start remeron at bedtime Pt has been [...] this patient. 08/19/2016 Appointment: Leydi Hightower WPtel: [address] [place], [place] [phone] [place] [address] (30 min) Complex 08/19/2016 Patient Education: Patient [...] Obesity Completed 06/17/2016 Appointment: Leydi Hightower WPtel: [address] [place], [place] [id number] [place] [address] (30 min) Complex 06/09/2016 Visit Plan: Esophageal [...] of control. 05/12/2016 Appointment: [facility]el[phone] ([facility] min) Complex 05/12/2016 Patient [...] in office. 05/28/2015 Appointment: Leydi Hightower [facility]Ptel[phone] ([facility] min) Complex 05/28/2015 Patient [...] Care Plan: COMPLETE CBC AUTOMATED LOINC : 23573-7 Ordered 04/23/2015 Instructions Comment . Chronic Pain [...] based on previous levels of control. . Neck Pain- pt to s tart [...] and elbow pain-xray shou lder and elbow Ofaxlokfvm-osiusvpt-yzhziwhopjit-d/c trazodone-start remeron at bedtime Pt has been [...]
--- OUTSIDE RECORDS SUMMARY | 2020-03-17 15:15 | XMS REPORT | CCD ---
Author Author Thai Castillo Organization Sara Jacobo MD, [facility] Address [address] [place] [address] Phone Care Team Providers Care Home Care Aide Name Role Phone PP Unavailable CCM Unavailable Summary Purpose Interface Exchange Insurance Providers Payer name Policy type / Coverage type Covered democrat ID Effective Begin Date Effective End Date WPS Medicare Part B Medicare Part B [id number] Unknown Unknown [facility] icare Part B [id number] Unknown Unk nown Family history Father Diagnosis Age At Onset Colon cancer Unknown Social History Social History Element Codes Description Effective Dates Marital status Unknown D ivorced 04/23/[address]: 472871158 Never smoker 04/23/[address]: 053439 Currently drinks alcohol occasionally drinks 04/23/2015 Allergies, [...] Fill Instructions tizanidine 4 mg tablet RxNorm: 106167 TAKE ONE TABLET BY MOUTH THREE TIMES A D AY NEEDED 01/02/2018 04/01/2018 Active Request already responded to by other means (e.g. phone or fax) bupropion HCl XL 300 mg 24 hr tablet, extended release RxNorm: 279444 TAKE ONE TABLET BY MOUTH DAILY 12/29/2017 06/26/2018 Active Tamiflu 75 mg capsule RxNorm: 571161 1 Capsule(s) PO BID 12/27/2017 12/31/2017 Inactive Tamiflu 75 mg capsule RxNorm: 528298 1 Capsule(s) PO BID 12/27/2017 12/26/2017 Inactive tizanidine 4 mg tablet RxNorm: 890941 1 Tablet(s) PO TID as needed 12/25/2017 01/01/2018 Inactive levothyroxine 175 mc g tablet RxNorm: 404936 1 Tablet(s) PO daily 12/14/2017 04/12/2018 Active levothyroxine 175 mc g tablet RxNorm: 859223 1 Tablet(s) PO daily 12/14/2017 12/13/2017 Inactive baclofen 10 mg tablet RxNorm: 381270 Tablet(s) TAKE ONE TABLET BY MOUTH THREE TIMES A DAY NEEDED 12/13/2017 01/11/2018 Active baclofen 10 mg tablet RxNorm: 044325 TAKE ONE TABLET BY MOUTH THREE TIMES A D AY NEEDED 12/13/2017 12/12/2017 Inactive morphine 30 mg table t, crush resistant, extended release RxNorm: 5186924 1 Tablet(s) PO BID 12/12/2017 02/09/2018 Active clonazepam 1 mg tablet RxNorm: 622298 1/2 Tablet(s) PO daily 12/01/2017 08/27/2018 Active trazodone 50 mg tablet RxNorm: 196612 1/2 to 1 Tablet(s) QHS as needed 12/01/2017 03/30/2018 Ac tive Opana ER 15 mg table t, crush resistant, extended release RxNorm: 712600 1 Tablet(s) PO Q12H 12/01/2017 02/28/2018 Active oxymorphone 5 mg tablet RxNorm: 232384 1 Tablet(s) PO Q6 PRN 12/01/2017 02/28/2018 Active Remeron 15 mg tablet RxNorm: 887653 Tablet(s) TAKE ONE TABLET BY MOUTH EVERY NIGHT AT BEDTIME 12/01/2017 02/28/2018 Active trazodone 50 mg tablet RxNorm: 196022 1/2 Tablet(s) as needed 1 Tablet(s) PO Q HS 12/01/2017 11/30/2017 In active clonazepam 1 mg tablet RxNorm: 554869 1/2 Tablet(s) PO daily 11/30/2017 11/30/2017 Inactive Remeron 15 mg tablet RxNorm: 879337 TAKE ONE TABLET BY MOUTH EVERY NIGHT AT BEDTIME 11/29/2017 11/30/2017 Inactive levothyroxine 200 mc g tablet RxNorm: 098170 TAKE ONE TABLET BY MO UTH DAILY 11/15/2017 12/13/2017 In active diclofenac sodium 75 mg tablet,delayed release RxNorm: 641233 1 Tablet(s) PO BID 11/07/2017 05/05/2018 Ac tive baclofen 10 mg tablet RxNorm: 628212 TAKE ONE TABLET BY MOUTH THREE TIMES A D AY NEEDED 11/07/2017 12/06/2017 Inactive liothyronine 5 mcg t ablet RxNorm: 747195 TAKE ONE TABLET BY MO [facility] DAILY 10/27/2017 07/23/2018 Ac tive tizanidine 4 mg tablet RxNorm: 078262 1 Tablet(s) PO TID as needed 10/18/2017 12/16/2017 Inactive oxymorphone 5 mg tablet RxNorm: 981332 1 Tablet(s) PO Q6 PRN 09/29/2017 11/27/2017 Inactive morphine 30 mg table t, crush resistant, extended release RxNorm: 7734420 1 Tablet(s) PO BID 09/29/2017 11/28/2017 Inactive baclofen 10 mg tablet RxNorm: 412920 1 Tablet(s) PO TID as needed 09/11/2017 10/10/2017 Inactive baclofen 10 mg tablet RxNorm: 305461 1 Tablet(s) PO TID as needed 08/11/2017 09/09/2017 Inactive Opana ER 15 mg table t, crush resistant, extended release RxNorm: 723791 1 Tablet(s) PO Q12H 08/11/2017 09/28/2017 Inactive Remeron 15 mg tablet RxNorm: 082413 TAKE ONE TABLET BY MOUTH EVERY NIGHT AT BEDTIME 08/02/2017 10/30/2017 Inactive oxymorphone 5 mg tablet RxNorm: 915064 1 Tablet(s) PO Q6 PRN 08/02/2017 09/28/2017 Inactive Opana ER 5 mg tablet , crush resistant, extended release RxNorm: 399695 1 Tablet(s) PO Q6 PRN 08/01/2017 08/10/2017 Inactive Protonix 40 mg table t,delayed release RxNorm: 567873 TAKE ONE TABLET BY MO [facility] DAILY 06/26/2017 10/23/2017 In active Protonix 40 mg table t,delayed release RxNorm: 396803 TAKE ONE TABLET BY [facility] DAILY 06/26/2017 06/25/2017 In active bupropion HCl XL 300 mg 24 hr tablet, extended release RxNorm: 609559 TAKE ONE TABLET BY MOUTH DAILY 06/13/2017 12/09/2017 Inactive tizanidine 4 mg tablet RxNorm: 928571 1 Tablet(s) PO TID as needed 06/13/2017 06/12/2017 Inactive tizanidine 4 mg tablet RxNorm: 050996 1 Tablet(s) PO TID as needed 06/13/2017 09/10/2017 Inactive baclofen 10 mg tablet RxNorm: 287834 1 Tablet(s) PO TID as needed 06/13/2017 07/12/2017 Inactive Opana ER 15 mg table t, crush resistant, extended release RxNorm: 945417 1 Tablet(s) PO Q12H 06/09/2017 08/07/2017 Inactive Opana ER 5 mg tablet , crush resistant, extended release RxNorm: 795021 1 Tablet(s) PO Q6 PRN 06/09/2017 07/31/2017 Inactive diclofenac sodium 75 mg tablet,delayed release RxNorm: 072901 1 Tablet(s) PO BID 06/09/2017 09/06/2017 In active clonazepam 1 mg tablet RxNorm: 259615 1/2 Tablet(s) PO daily 05/24/2017 11/18/2017 Inactive bupropion HCl XL 300 mg 24 hr tablet, extended release RxNorm: 282358 TAKE ONE TABLET BY MOUTH DAILY 03/16/2017 06/12/2017 Inactive clonazepam 1 mg tablet RxNorm: 346397 1/2 Tablet(s) PO daily 02/22/2017 05/18/2017 Inactive Remeron 15 mg tablet RxNorm: 569155 TAKE ONE TABLET BY MOUTH EVERY NIGHT AT BEDTIME 02/06/2017 2017 Inactive Protonix 40 mg table t,delayed release RxNorm: 431725 TAKE ONE TABLET BY MO UTH DAILY 01/26/2017 06/24/2017 In active mupirocin 2 % topica l ointment RxNorm: 066442 1 Application TOP BID 01/12/2017 01/18/2017 Inactive Bactrim DS 800 mg-16 0 mg tablet RxNorm: 090402 1 Tablet(s) PO BID 11/17/2016 11/23/2016 Inactive mupirocin 2 % topica l ointment RxNorm: 921591 1 Application TOP BID 11/10/2016 11/16/2016 Inactive Bactrim DS 800 mg-16 0 mg tablet RxNorm: 672424 1 Tablet(s) PO BID 11/10/2016 11/16/2016 Inactive bupropion HCl XL 300 mg 24 hr tablet, extended release RxNorm: 072831 TAKE ONE TABLET BY MOUTH DAILY 11/07/2016 03/06/2017 Inactive liothyronine 5 mcg t ablet RxNorm: 900743 1 Tablet(s) PO daily 11/01/2016 10/26/2017 Inactive levothyroxine 200 mc g tablet RxNorm: 078940 1 Tablet(s) PO daily 10/04/2016 09/28/2017 Inactive clonazepam 1 mg tablet RxNorm: 360229 1/2 Tablet(s) PO daily 09/21/2016 03/18/2017 Inactive clonazepam 1 mg tablet RxNorm: 008292 1/2 Tablet(s) PO daily 09/16/2016 09/20/2016 Inactive Abilify 2 mg tablet RxNorm: 443954 1 Tablet(s) PO daily 09/16/2016 10/13/2016 Inactive trazodone 50 mg tablet RxNorm: 353150 1/2 Tablet(s) as needed 1 Tablet(s) PO Q HS 09/16/2016 01/13/2017 In active morphine 15 mg immed iate release tablet RxNorm: 625939 1 Tablet(s) PO Q6 PRN 09/16/2016 04/06/2017 In active baclofen 10 mg tablet RxNorm: 147603 1 Tablet(s) PO TID as needed 09/16/2016 06/12/2017 Inactive MS Contin 30 mg tabl et,extended release RxNorm: 646586 1 Tablet(s) PO Q12H 09/16/2016 04/06/2017 In active Remeron 15 mg tablet RxNorm: 831543 1 Tablet(s) PO QHS 08/19/2016 09/15/2016 Inactive levothyroxine 200 mc g tablet RxNorm: 335782 1 Tablet(s) PO daily 08/11/2016 10/03/2016 Inactive bupropion HCl XL 300 mg 24 hr tablet, extended release RxNorm: 350711 TAKE ONE TABLET BY MOUTH DAILY 08/11/2016 11/06/2016 Inactive Protonix 40 mg table t,delayed release RxNorm: 396672 1 Tablet(s) PO daily 06/17/2016 12/13/2016 In active bupropion HCl XL 300 mg 24 hr tablet, extended release RxNorm: 757621 1 Tablet(s) PO daily 05/12/2016 07/10/2016 Inactive bupropion HCl XL 300 mg 24 hr tablet, extended release RxNorm: 716336 1 Tablet(s) PO daily 05/12/2016 05/11/2016 Inactive Cialis 20 mg tablet RxNorm: 668207 1 Tablet(s) PO PRN 02/16/2016 No Stop Date Active not more than 1 tab in 24 hours morphine ER 10 mg ca psule,extended release pellets RxNorm: 188079 1 Tablet(s) PO Q6 as needed 02/16/2016 11/16/2016 Inactive clonazepam 1 mg tablet RxNorm: 492250 1/2 Tablet(s) PO BID 02/16/2016 09/15/2016 Inactive trazodone 50 mg tablet RxNorm: 062736 1/2 Tablet(s) as needed 1 Tablet(s) PO Q HS 02/16/2016 08/18/2016 In active trazodone 50 mg tablet RxNorm: 234498 1/2 Tablet(s) 1 Tablet(s) PO QHS 11/17/2015 02/15/2016 In active trazodone 50 mg tablet RxNorm: 490863 1 Tablet(s) PO QHS 10/19/2015 11/16/2015 Inactive levothyroxine 200 mc g tablet RxNorm: 267113 1 Tablet(s) PO daily 10/02/2015 08/10/2016 Inactive Wellbutrin XL 150 mg 24 hr tablet, extended release RxNorm: 111983 1 Tablet(s) PO daily 10/02/2015 05/11/2016 Inactive levothyroxine 200 mc g tablet RxNorm: 108434 1 Tablet(s) PO daily 09/30/2015 10/01/2015 Inactive Wellbutrin XL 150 mg 24 hr tablet, extended release RxNorm: 513519 1 Tablet(s) PO daily 09/30/2015 10/01/2015 Inactive trazodone 50 mg tablet RxNorm: 838682 1 Tablet(s) PO QHS 09/11/2015 10/10/2015 Inactive trazodone 50 mg tablet RxNorm: 371629 1 Tablet(s) PO QHS 09/11/2015 09/10/2015 Inactive Cymbalta 30 mg capsu le,delayed release RxNorm: 930135 1 Capsule(s) PO daily 09/07/2015 11/16/2015 In active Cymbalta 60 mg capsu le,delayed release RxNorm: 059568 1 Capsule(s) PO daily 08/31/2015 08/30/2015 In active Cymbalta 30 mg capsu le,delayed release RxNorm: 872814 1 Capsule(s) PO daily take with 60mg to make 90 mg daily 08/31/2015 09/06/2015 Inactive Cymbalta 30 mg capsu le,delayed release RxNorm: 900037 1 Capsule(s) PO daily take with 60mg to make 90 mg daily 08/31/2015 08/30/2015 Inactive Cymbalta 60 mg capsu le,delayed release RxNorm: 412025 1 Capsule(s) PO daily x 7 days and then increase to 90mg daily 08/31/2015 09/07/2015 Inactive levothyroxine 200 mc g tablet RxNorm: 135882 1 Tablet(s) PO daily 08/14/2015 09/29/2015 Inactive Wellbutrin XL 150 mg 24 hr tablet, extended release RxNorm: 833776 1 Tablet(s) PO daily 07/14/2015 09/29/2015 Inactive Cialis 20 mg tablet RxNorm: 339211 1 Tablet(s) PO PRN 07/02/2015 02/15/2016 Inactive not more than 1 tab in 24 hours liothyronine 5 mcg t ablet RxNorm: 097734 1 Tablet(s) PO daily 2015 05/29/2016 Inactive clonazepam 1 mg tablet RxNorm: 390259 1 Tablet(s) PO TID 2015 02/15/2016 Inactive minocycline 50 mg ta blet RxNorm: 947410 1 Tablet(s) PO daily 2015 05/11/2016 Inactive Wellbutrin XL 150 mg 24 hr tablet, extended release RxNorm: 269624 1 Tablet(s) PO daily 04/23/2015 07/13/2015 Inactive levothyroxine 200 mc g tablet RxNorm: 684157 1 Tablet(s) PO daily 04/23/2015 08/13/2015 Inactive diclofenac oral RxNorm: 3355 oral No Start Date Active Aleve oral RxNorm: 870510 oral No Start Date Active Tylenol 500 mg RxNorm: oral No Start Date Active morphine ER 15 mg ta blet,extended release RxNorm: 790771 oral No Start Date 11/16/2016 Inactive Trazadone 25 mg RxNorm: 2 PO daily No Start Date 09/11/2015 Inactive clonazepam 1 mg tablet RxNorm: 575566 1 Tablet(s) PO QHS No Start Date 06/04/2015 Inactive Wellbutrin XL 150 mg 24 hr tablet, extended release RxNorm: 847842 1 Tablet(s) PO daily No Start Date 04/22/2015 Inactive minocycline 50 mg ta blet RxNorm: 584206 1 Tablet(s) PO daily No Start Date 06/04/2015 Inactive methadone 5 mg tablet RxNorm: 444398 1 Tablet(s) PO Q8 No Start Date 02/15/2016 Inactive Protonix 40 mg table t,delayed release RxNorm: 647475 Tablet(s) PO daily No Start Date 06/16/2016 Inactive Opana ER 15 mg table t, crush resistant, extended release RxNorm: 986086 1 Tablet(s) PO Q12H No Start Date 06/08/2017 Inactive MS Contin 30 mg tabl et,extended release RxNorm: 398489 1 Tablet(s) PO Q12H No Start Date 02/15/2016 Inactive Opana ER 15 mg table t, crush resistant, extended release RxNorm: 255692 1 Tablet(s) PO BID No Start Date 09/15/2016 Inactive liothyronine 5 mcg t ablet RxNorm: 991676 1 Tablet(s) PO daily No Start Date 06/04/2015 Inactive Cialis 20 mg tablet RxNorm: 743359 1 Tablet(s) PO PRN No Start Date 07/01/2015 Inactive not more than 1 tab in 24 hours baclofen 10 mg tablet RxNorm: 419448 1 Tablet(s) PO TID as needed No Start Date 05/11/2016 Inactive morphine 15 mg immed iate release tablet RxNorm: 814104 1 Tablet(s) PO Q6 PRN as needed No Start Date 02/15/2016 Inactive levothyroxine 200 mc g tablet RxNorm: 484402 1 Tablet(s) PO daily No Start Date 04/22/2015 Inactive Opana ER 5 mg tablet , crush resistant, extended release RxNorm: 486941 1 Tablet(s) PO Q6 No Start Date 06/08/2017 Inactive Medication Administered No Medication Administered data Immunizations No Immunization data Assessments Condition Codes Effectiv e Dates Anemia, unspecified ICD-10: D64.9 ICD-9: 285.9 01/04/2018 Chronic pain syndrome ICD-10: G89.4 ICD-9: 338.4 [...] Observation Code Item Item Code Result Date Cbc With Differential Ord2 WBC 5.03 K/ul [...] 26.4 pg 01/05/2018 Cbc With Differential Ord2 [place]% 11.9 % 01/05/2018 Cbc With Differential Ord2 [...] 2.08 K/ul 01/05/2018 Cbc With Differential Ord2 [place] ABS# 0.6 K/ul 01/05/2018 Cbc With Differential Ord2 Eos ABS# 0.2 K/ul 01/05/2018 Cbc With Differential Ord2 Baso ABS# 0.0 K/ul 01/05/2018 Ferritin Ord22 FERRITIN 5.7 ng/mL 12/06/2017 Tibc Ord40 Iron 33 ug/dl 12/06/2017 Tibc Ord40 UIBC 431 ug/dL 12/06/2017 Tibc Ord40 TIBC 464 ug/dL 12/06/2017 Tibc Ord40 Fe-%Sat 7.1 % 12/06/2017 Free T4 Avu459 FREE T4 1.82 ng/dL 12/01/2017 Tsh Ord6 [...] 27.0 pg 12/01/2017 Cbc With Differential Ord2 [place]% 10.6 % 12/01/2017 Cbc With Differential Ord2 [...] 1.92 K/ul 12/01/2017 Cbc With Differential Ord2 [place] ABS# 0.4 K/ul 12/01/2017 Cbc With Differential Ord2 Eos ABS# 0.2 K/ul 12/01/2017 Cbc With Differential Ord2 Baso ABS# 0.0 K/ul 12/01/2017 Comp Metabolic Dwf056 NA 136 mEq/L 12/01/2017 Comp Metabolic Uii537 K 4.6 mEq/L 12/01/2017 Comp Metabolic Uhx955 CL 102 mEq/L 12/01/2017 Comp Metabolic Daf548 CO2 27.0 mEq/L 12/01/2017 Comp Metabolic Uet802 AN ION GAP 12 12/01/2017 Comp Metabolic Hxm636 GL UCOSE 90 mg/dL 12/01/2017 Comp Metabolic Ham478 Cr eat 0.7 mg/dL 12/01/2017 Comp Metabolic Jwt787 eG FR 123 ml/min/1.73m2 03/2018 Comp Metabolic Hoc438 BUN 4 mg/dL 12/01/2017 Comp Metabolic Saa213 B/ C Ratio 5.6 Ratio 12/01/2017 Comp Metabolic Bpl494 CA LCIUM 9.0 mg/dL 12/01/2017 Comp Metabolic Nel108 AL K PHOS 67 U/L 12/01/2017 Comp Metabolic Lzl972 T(SGOT) 30 U/L 12/01/2017 Comp Metabolic Rqz341 AL T(SGPT) 29 U/L 12/01/2017 Comp Metabolic Syh286 BI LI T 0.3 mg/dL 12/01/2017 Comp Metabolic Jjk545 AL BUMIN 4.1 g/dL 12/01/2017 Comp Metabolic Rxb756 TP RO 6.1 g/dL 12/01/2017 Comp Metabolic Wgg510 GL OB 2.0 g/dL 12/01/2017 Comp Metabolic Efu135 A/ G Ratio 2.0 Ratio 12/01/2017 Comp Metabolic Uac362 Os mo 268 mOsmo 12/01/2017 Comp Metabolic Gmi037 NA 136 mEq/L 02/16/2016 Comp Metabolic Ymd696 K 4.2 mEq/L 02/16/2016 Comp Metabolic Pji349 CL 104 mEq/L 02/16/2016 Comp Metabolic Vqc748 CO2 20.0 mEq/L 02/16/2016 Comp Metabolic Qrm036 AN ION GAP 16 02/16/2016 Comp Metabolic Gng278 GL UCOSE 71 mg/dL 02/16/2016 Comp Metabolic Nqu578 Cr eat 0.8 mg/dL 02/16/2016 Comp Metabolic Vks424 eG FR 113 ml/min/1.73m2 01/26 Comp Metabolic Iyp859 BUN 7 mg/dL 02/16/2016 Comp Metabolic Fro315 B/ C Ratio 9.1 Ratio 02/16/2016 Comp Metabolic Kgd560 CA LCIUM 9.4 mg/dL 02/16/2016 Comp Metabolic Qec761 AL K PHOS 57 U/L 02/16/2016 Comp Metabolic Cem055 T(SGOT) 30 U/L 02/16/2016 Comp Metabolic Fpd932 AL T(SGPT) 27 U/L 02/16/2016 Comp Metabolic Tml093 BI LI T 0.2 mg/dL 02/16/2016 Comp Metabolic Ckk570 AL BUMIN 4.4 g/dL 02/16/2016 Comp Metabolic Jxb766 TP RO 6.5 g/dL 02/16/2016 Comp Metabolic Ont378 GL OB 2.1 g/dL 02/16/2016 Comp Metabolic Sqk336 A/ G Ratio 2.1 Ratio 02/16/2016 Comp Metabolic Uzl961 Os mo 268 mOsmo 02/16/2016 Free T4 Kmo914 FREE T4 1.20 ng/dL 02/16/2016 Cbc With [...] 30.2 pg 02/16/2016 Cbc With Differential Ord2 [place]% 9.6 % 02/16/2016 Cbc With Differential Ord2 [...] 1.50 K/ul 02/16/2016 Cbc With Differential Ord2 [place] ABS# 0.5 K/ul 02/16/2016 Cbc With Differential [...] accomodation 06/09/2017 None Full Exam - General 1995 Ears/Nose/Throat [...] 1: 132/72 Code: 8480-6 BMI: 33.4 Code: 70709-5 Heart Rate 1: 82 bpm Height: 5'6" SpO2: 97% Weight: 207 lbs 09/29/2017 Blood Pressure 1: 124/68 Code: 8480-6 BMI: 32.1 Code: 19605-2 Heart Rate 1: 77 bpm Height: 5'6" SpO2: 98% Weight: 199 lbs 08/11/2017 Blood Pressure 1: 154/82 Code: 8480-6 BMI: 31.6 Code: 57898-7 Heart Rate 1: 75 bpm Height: 5'6" SpO2: 98% Weight: 196 lbs 06/09/2017 Blood Pressure 1: 148/88 Code: 8480-6 BMI: 28.6 Code: 16058-8 Heart Rate 1: 88 bpm Height: 5'6" SpO2: 98% Weight: 177 lbs 04/07/2017 Blood Pressure 1: 140/84 Code: 8480-6 BMI: 30.3 Code: 07400-0 Heart Rate 1: 81 bpm Height: 5'6" SpO2: 99% Weight: 188 lbs 11/17/2016 Blood Pressure 1: 130/72 Code: 8480-6 Heart Rate 1: 63 bpm Height: SpO2: 93% Weight: 11/10/2016 Blood Pressure 1: 128/86 Code: 8480-6 BMI: 30.3 Code: 30433-1 Heart Rate 1: 84 bpm Height: 5'6" SpO2: 96% Weight: 188 lbs 10/14/2016 Heigh t: 5'6" 09/16/2016 Blood Pressure 1: 130/80 Code: 8480-6 BMI: 30.3 Code: 64175-9 Heart Rate 1: 67 bpm Height: 5'6" SpO2: 99% Weight: 188 lbs 08/19/2016 Blood Pressure 1: 110/62 Code: 8480-6 BMI: 29.9 Code: 60843-3 Heart Rate 1: 70 bpm Height: 5'6" SpO2: 97% Weight: 185 lbs 06/17/2016 Blood Pressure 1: 112/68 Code: 8480-6 BMI: 27.6 Code: 46684-5 Heart Rate 1: 61 bpm Height: 5'6" SpO2: 98% Weight: 171 lbs 05/12/2016 Blood Pressure 1: 130/76 Code: 8480-6 BMI: 29.7 Code: 68593-0 Heart Rate 1: 103 bpm Height: 5'6" SpO2: 98% Weight: 184 lbs 02/16/2016 Blood Pressure 1: 140/82 Code: 8480-6 BMI: 28.7 Code: 16413-2 Heart Rate 1: 66 bpm Height: 5'6" SpO2: 99% Weight: 178 lbs 11/17/2015 Blood Pressure 1: 120/74 Code: 8480-6 BMI: 29.4 Code: 27174-6 Heart Rate 1: 90 bpm Height: 5'6" SpO2: 94% Weight: 182 lbs 08/28/2015 Blood Pressure 1: 128/76 Code: 8480-6 BMI: 27.9 Code: 45296-5 Heart Rate 1: 80 bpm Height: 5'6" SpO2: 98% Weight: 173 lbs 05/28/2015 Blood Pressure 1: 122/70 Code: 8480-6 BMI: 27.0 Code: 02505-5 Heart Rate 1: 74 bpm Height: 5'6" SpO2: 98% Weight: 167 lbs 04/23/2015 Blood Pressure 1: 110/60 Code: 8480-6 BMI: 27.0 Code: 86305-0 Heart Rate 1: 68 bpm Height: 5'6" [...] Encounters Encounter Performer Loca tion Codes Date [id number] EST. PATIENT, LEVEL IV Diagnosis: Other specified hypothyroidism[ICD10: E03.8] Diagnosis: Chronic pain syndrome[ICD10: G89.4] Diagnosis: Major depressive disorder, recurrent, moderate[ICD10: F33.1] Denae Jacobo MD, [facility] CPT-4: 76436 12/01/2017 ([id number] 01088 EST. P [facility], LEVEL IV Diagnosis: Chronic pain syndrome[ICD10: G89.4] Diagnosis: Alcohol dependence, uncomplicated[ICD10: F10.20] Diagnosis: Major depressive disorder, recurrent, moderate[ICD10: F33.1] Leydi Jacobo MD, [facility] CPT-4: 48740 09/29/2017 ([id number]) 47218 EST. P [facility], LEVEL IV Diagnosis: Chronic pain syndrome[ICD10: G89.4] Diagnosis: Alcohol dependence, uncomplicated[ICD10: F10.20] Diagnosis: Major depressive disorder, recurrent, moderate[ICD10: F33.1] Leydi Jacobo MD, [facility] CPT-4: 61300 08/11/2017 ([id number]) 97524 EST. P [facility], LEVEL III Diagnosis: Chronic pain syndrome[ICD10: G89.4] Diagnosis: Major depressive disorder, recurrent, moderate[ICD10: F33.1] Leydi Jacobo MD, [facility] CPT-4: 92825 06/09/2017 ([id number]) 47533 EST. P [facility], LEVEL III Diagnosis: Chronic pain syndrome[ICD10: G89.4] Diagnosis: Pain in left knee[ICD10: M25.562] Leydi Jacobo MD, [facility] CPT- 4: 24877 04/07/2017 [id number] EST. PATIENT, LEVEL II Diagnosis: Superficial foreign body of left upper arm, initial encounter[ICD10: S40.852A] Diagnosis: Cellulitis of left upper limb[ICD10: L03.114] Leydi Jacobo MD, [facility] CPT-4: 35040 11/17/2016 06313 EST. PATIENT, LEVEL II Diagnosis: Cellulitis of left upper limb[ICD10: L03.114] Leydi Jacobo MD, [facility] CPT-4: 72222 11/10/2016 ([id number]) 46872 EST. P ATIENT, LEVEL III Diagnosis: Chronic pain syndrome[ICD10: G89.4] Diagnosis: Major depressive disorder, recurrent, moderate[ICD10: F33.1] Leydi Jacobo MD, [facility] CPT-4: 34540 10/14/2016 06386 EST. PATIENT, LEVEL IV Diagnosis: Psychophysiologic insomnia[ICD10: F51.04] Diagnosis: Major depressive disorder, recurrent, moderate[ICD10: F33.1] Diagnosis: Alcohol dependence, uncomplicated[ICD10: F10.20] Diagnosis: Chronic pain syndrome[ICD10: G89.4] Leydi Jacobo MD, [facility] CPT-4: 47730 09/16/2016 ([id number]) 64292 EST. P ATIENT, LEVEL III Diagnosis: Pain in left shoulder[ICD10: M25.512] Diagnosis: Major depressive disorder, recurrent, moderate[ICD10: F33.1] Diagnosis: Psychophysiologic insomnia[ICD10: F51.04] Leydi Jacobo MD, [facility] CPT-4: 27443 08/19/2016 ([id number]) 61016 EST. P ATIENT, LEVEL III Diagnosis: Gastro-esophageal reflux disease without esophagitis[ICD10: K21.9] Diagnosis: Hypothyroidism, unspecified[ICD10: E03.9] Leydi Jacobo MD, [facility] CPT-4: 11147 06/17/2016 ([id number]) 25679 EST. P ATIENT, LEVEL IV Diagnosis: Gastro-esophageal reflux disease without esophagitis[ICD10: K21.9] Diagnosis: Hypothyroidism, unspecified[ICD10: E03.9] Diagnosis: Major depressive disorder, recurrent, moderate[ICD10: F33.1] Leydi Jacobo MD, [facility] CPT-4: 25501 05/12/2016 ([id number]) 82850 EST. P ATIENT, LEVEL III Diagnosis: Cervicalgia[ICD10: M54.2] Diagnosis: Hypothyroidism, unspecified[ICD10: E03.9] Diagnosis: Other male erectile dysfunction[ICD10: N52.8] Leydi Jacobo MD, [facility] CPT-4: 24170 02/16/2016 ([id number]) 25829 EST. P ATIENT, LEVEL III Diagnosis: Lumbago with sciatica, unspecified side[ICD10: M54.40] Diagnosis: Other male erectile dysfunction[ICD10: N52.8] Leydi Jacobo MD, [facility] CPT-4: 48920 11/17/2015 ([id number]) 70201 EST. P ATIENT, LEVEL III Diagnosis: Lumbago with sciatica, unspecified side[ICD10: M54.40] Diagnosis: Hypothyroidism, unspecified[ICD10: E03.9] Diagnosis: Other male erectile dysfunction[ICD10: N52.8] Leydi Jacobo MD, [facility] CPT-4: 25430 08/28/2015 ([id number]) 49165 EST. P ATIENT, LEVEL III Diagnosis: Back pain, chronic[ICD9: 724.5] Diagnosis: Depression[ICD9: 311] Diagnosis: Hypothyroid[ICD9: 244.9] Diagnosis: Bilateral calf pain[ICD9: 729.5] Julieta Jacobo MD, [facility] CPT-4: 46459 05/28/2015 ([id number]) OFFICE VISI T, NEW - LEVEL 4 Diagnosis: Back pain, chronic[ICD9: 724.5] Diagnosis: Depression[ICD9: 311] Diagnosis: Hypothyroid[ICD9: 244.9] Julieta Jacobo MD, [facility] CPT-4: 54959 04/23/2015 Plan of Care Planned Activity Notes C odes Status Date Patient Education: Patient Medication Summary Completed 01/04/2018 [...] control. 12/01/2017 [facility] [phone] [facility] [place] ([facility] Complex 12/01/2017 Patient Education: [...] outpatient treatment 09/29/2017 [facility] [phone] [phone] [place] ([place] min) Complex 09/29/2017 Patient Education: [...] cons ider 08/11/2017 Appointment: Leydi Hightower WPtel: [phone] (30 min) Complex 08/11/2017 Patient Education: [...] current medications. 06/09/2017 Appointment: Leydi Hightower WPtel: [phone] (30 min) Complex 06/09/2017 Patient Education: [...] Appointment: Leydi Hightower WPtel: [phone] (30 min) Complex 11/17/2016 Patient Education: [...] in pain. 11/10/2016 Appointment: Leydi Hightower WPtel: [address] [place], [place] [phone] (30 min) Complex 11/10/2016 Patient Education: Patient [...] of plan. 10/14/2016 Appointment: Leydi Hightower WPtel: [address] [place], [place] [phone] (30 min) Complex 10/14/2016 Patient Education: Patient [...] Leydi Hightower WPtel: [facility] [phone] (30 min) Complex 09/16/2016 Patient Education: Patient Medication Summary Completed 09/16/2016 Visit Plan: Left shoulder and elbow pain-xray shoulder and elbow Qlunijeats-johypffv-dultxbwbganb-d/c trazodone-start remeron at bedtime Pt has been [...] Leydi Hightower WPtel: [facility]5 [id number] [place] [address] (30 min) Complex 08/19/2016 Patient Education: Patient [...] Obesity Completed 06/17/2016 Appointment: Leydi Hightower WPtel: [facility]0 [phone] (30 min) Complex 06/09/2016 Visit Plan: [...] of control. 05/12/2016 Appointment: Leydi Hightower [facility]Ptel[phone] ([facility] min) Complex 05/12/2016 Patient [...] in office. 05/28/2015 Appointment: Leydi Hightower WPtel: [phone] (30 min) Complex 05/28/2015 Patient [...] Care Plan: COMPLETE CBC AUTOMATED LOINC : 25800-5 Ordered 04/23/2015 Instructions Comment . Chronic Pain [...] and elbow pain-xray shou lder and elbow Jgszrckrxn-vflqwwdf-jlakjufcyasx-d/c trazodone-start remeron at bedtime Pt has been [...]
--- OUTSIDE RECORDS SUMMARY | 2020-03-17 15:15 | XMS REPORT | CCD ---
Author Author Thai Castillo Organization Sara Jacobo MD, [facility] Address [address] [place] [address] Phone Care Team Providers Care Reel Operator Name Role Phone PP Unavailable CCM Unavailable Summary Purpose Interface Exchange Insurance Providers Payer name Policy type / Coverage type Covered libertarian ID Effective Begin Date Effective End Date WPS Medicare Part B Medicare Part B [id number] Unknown Unknown [facility] icare Part B [id number] Unknown Unk nown Family history Father Diagnosis Age At Onset Colon cancer Unknown Social History Social History Element Codes Description Effective Dates Marital status Unknown D ivorced 04/23/[address]: 567472065 Never smoker 04/23/[address]: 671812 Currently drinks alcohol occasionally drinks 04/23/2015 Allergies, [...] Fill Instructions baclofen 10 mg tablet RxNorm: 329989 Tablet(s) TAKE ONE TABLET BY MOUTH THREE TIMES A DAY NEEDED 12/13/2017 01/11/2018 Active baclofen 10 mg tablet RxNorm: 140826 TAKE ONE TABLET BY MOUTH THREE TIMES A D AY NEEDED 12/13/2017 12/12/2017 Inactive morphine 30 mg table t, crush resistant, extended release RxNorm: 4246817 1 Tablet(s) PO BID 12/12/2017 02/09/2018 Active clonazepam 1 mg tablet RxNorm: 043252 1/2 Tablet(s) PO daily 12/01/2017 08/27/2018 Active trazodone 50 mg tablet RxNorm: 269493 1/2 to 1 Tablet(s) QHS as needed 12/01/2017 03/30/2018 Ac tive Opana ER 15 mg table t, crush resistant, extended release RxNorm: 746731 1 Tablet(s) PO Q12H 12/01/2017 02/28/2018 Active oxymorphone 5 mg tablet RxNorm: 893078 1 Tablet(s) PO Q6 PRN 12/01/2017 02/28/2018 Active Remeron 15 mg tablet RxNorm: 778342 Tablet(s) TAKE ONE TABLET BY MOUTH EVERY NIGHT AT BEDTIME 12/01/2017 02/28/2018 Active trazodone 50 mg tablet RxNorm: 339359 1/2 Tablet(s) as needed 1 Tablet(s) PO Q HS 12/01/2017 11/30/2017 In active clonazepam 1 mg tablet RxNorm: 362665 1/2 Tablet(s) PO daily 11/30/2017 11/30/2017 Inactive Remeron 15 mg tablet RxNorm: 899653 TAKE ONE TABLET BY MOUTH EVERY NIGHT AT BEDTIME 11/29/2017 11/30/2017 Inactive levothyroxine 200 mc g tablet RxNorm: 258969 TAKE ONE TABLET BY MO [facility] DAILY 11/15/2017 02/12/2018 Ac tive diclofenac sodium 75 mg tablet,delayed release RxNorm: 774676 1 Tablet(s) PO BID 11/07/2017 05/05/2018 Ac tive baclofen 10 mg tablet RxNorm: 364308 TAKE ONE TABLET BY MOUTH THREE TIMES A D AY NEEDED 11/07/2017 12/06/2017 Inactive liothyronine 5 mcg t ablet RxNorm: 670947 TAKE ONE TABLET BY MO [facility] DAILY 10/27/2017 07/23/2018 Ac tive tizanidine 4 mg tablet RxNorm: 226854 1 Tablet(s) PO TID as needed 10/18/2017 12/16/2017 Active oxymorphone 5 mg tablet RxNorm: 059981 1 Tablet(s) PO Q6 PRN 09/29/2017 11/27/2017 Inactive morphine 30 mg table t, crush resistant, extended release RxNorm: 2317837 1 Tablet(s) PO BID 09/29/2017 11/28/2017 Inactive baclofen 10 mg tablet RxNorm: 683327 1 Tablet(s) PO TID as needed 09/11/2017 10/10/2017 Inactive baclofen 10 mg tablet RxNorm: 479491 1 Tablet(s) PO TID as needed 08/11/2017 09/09/2017 Inactive Opana ER 15 mg table t, crush resistant, extended release RxNorm: 448169 1 Tablet(s) PO Q12H 08/11/2017 09/28/2017 Inactive Remeron 15 mg tablet RxNorm: 708169 TAKE ONE TABLET BY MOUTH EVERY NIGHT AT BEDTIME 08/02/2017 10/30/2017 Inactive oxymorphone 5 mg tablet RxNorm: 266074 1 Tablet(s) PO Q6 PRN 08/02/2017 09/28/2017 Inactive Opana ER 5 mg tablet , crush resistant, extended release RxNorm: 542618 1 Tablet(s) PO Q6 PRN 08/01/2017 08/10/2017 Inactive Protonix 40 mg table t,delayed release RxNorm: 397854 TAKE ONE TABLET BY [facility] DAILY 06/26/2017 10/23/2017 In active Protonix 40 mg table t,delayed release RxNorm: 398865 TAKE ONE TABLET BY [facility] DAILY 06/26/2017 06/25/2017 In active bupropion HCl XL 300 mg 24 hr tablet, extended release RxNorm: 743104 TAKE ONE TABLET BY MOUTH DAILY 06/13/2017 12/09/2017 Inactive tizanidine 4 mg tablet RxNorm: 780054 1 Tablet(s) PO TID as needed 06/13/2017 06/12/2017 Inactive tizanidine 4 mg tablet RxNorm: 362915 1 Tablet(s) PO TID as needed 06/13/2017 09/10/2017 Inactive baclofen 10 mg tablet RxNorm: 323699 1 Tablet(s) PO TID as needed 06/13/2017 07/12/2017 Inactive Opana ER 15 mg table t, crush resistant, extended release RxNorm: 285237 1 Tablet(s) PO Q12H 06/09/2017 08/07/2017 Inactive Opana ER 5 mg tablet , crush resistant, extended release RxNorm: 504676 1 Tablet(s) PO Q6 PRN 06/09/2017 07/31/2017 Inactive diclofenac sodium 75 mg tablet,delayed release RxNorm: 911527 1 Tablet(s) PO BID 06/09/2017 09/06/2017 In active clonazepam 1 mg tablet RxNorm: 699925 1/2 Tablet(s) PO daily 05/24/2017 11/18/2017 Inactive bupropion HCl XL 300 mg 24 hr tablet, extended release RxNorm: 617679 TAKE ONE TABLET BY MOUTH DAILY 03/16/2017 06/12/2017 Inactive clonazepam 1 mg tablet RxNorm: 165177 1/2 Tablet(s) PO daily 02/22/2017 05/18/2017 Inactive Remeron 15 mg tablet RxNorm: 568745 TAKE ONE TABLET BY MOUTH EVERY NIGHT AT BEDTIME 02/06/2017 2017 Inactive Protonix 40 mg table t,delayed release RxNorm: 923975 TAKE ONE TABLET BY MO [facility] DAILY 01/26/2017 06/24/2017 In active mupirocin 2 % topica l ointment RxNorm: 369510 1 Application TOP BID 01/12/2017 01/18/2017 Inactive Bactrim DS 800 mg-16 0 mg tablet RxNorm: 909919 1 Tablet(s) PO BID 11/17/2016 11/23/2016 Inactive mupirocin 2 % topica l ointment RxNorm: 748531 1 Application TOP BID 11/10/2016 11/16/2016 Inactive Bactrim DS 800 mg-16 0 mg tablet RxNorm: 244029 1 Tablet(s) PO BID 11/10/2016 11/16/2016 Inactive bupropion HCl XL 300 mg 24 hr tablet, extended release RxNorm: 497860 TAKE ONE TABLET BY MOUTH DAILY 11/07/2016 03/06/2017 Inactive liothyronine 5 mcg t ablet RxNorm: 108674 1 Tablet(s) PO daily 11/01/2016 10/26/2017 Inactive levothyroxine 200 mc g tablet RxNorm: 030833 1 Tablet(s) PO daily 10/04/2016 09/28/2017 Inactive clonazepam 1 mg tablet RxNorm: 700714 1/2 Tablet(s) PO daily 09/21/2016 03/18/2017 Inactive clonazepam 1 mg tablet RxNorm: 681864 1/2 Tablet(s) PO daily 09/16/2016 09/20/2016 Inactive Abilify 2 mg tablet RxNorm: 072535 1 Tablet(s) PO daily 09/16/2016 10/13/2016 Inactive trazodone 50 mg tablet RxNorm: 287249 1/2 Tablet(s) as needed 1 Tablet(s) PO Q HS 09/16/2016 01/13/2017 In active morphine 15 mg immed iate release tablet RxNorm: 531358 1 Tablet(s) PO Q6 PRN 09/16/2016 04/06/2017 In active baclofen 10 mg tablet RxNorm: 316358 1 Tablet(s) PO TID as needed 09/16/2016 06/12/2017 Inactive MS Contin 30 mg tabl et,extended release RxNorm: 680088 1 Tablet(s) PO Q12H 09/16/2016 04/06/2017 In active Remeron 15 mg tablet RxNorm: 159519 1 Tablet(s) PO QHS 08/19/2016 09/15/2016 Inactive levothyroxine 200 mc g tablet RxNorm: 182086 1 Tablet(s) PO daily 08/11/2016 10/03/2016 Inactive bupropion HCl XL 300 mg 24 hr tablet, extended release RxNorm: 211425 TAKE ONE TABLET BY MOUTH DAILY 08/11/2016 11/06/2016 Inactive Protonix 40 mg table t,delayed release RxNorm: 779942 1 Tablet(s) PO daily 06/17/2016 12/13/2016 In active bupropion HCl XL 300 mg 24 hr tablet, extended release RxNorm: 736718 1 Tablet(s) PO daily 05/12/2016 07/10/2016 Inactive bupropion HCl XL 300 mg 24 hr tablet, extended release RxNorm: 838611 1 Tablet(s) PO daily 05/12/2016 05/11/2016 Inactive Cialis 20 mg tablet RxNorm: 317222 1 Tablet(s) PO PRN 02/16/2016 No Stop Date Active not more than 1 tab in 24 hours morphine ER 10 mg ca psule,extended release pellets RxNorm: 706352 1 Tablet(s) PO Q6 as needed 02/16/2016 11/16/2016 Inactive clonazepam 1 mg tablet RxNorm: 100643 1/2 Tablet(s) PO BID 02/16/2016 09/15/2016 Inactive trazodone 50 mg tablet RxNorm: 824879 1/2 Tablet(s) as needed 1 Tablet(s) PO Q HS 02/16/2016 08/18/2016 In active trazodone 50 mg tablet RxNorm: 560861 1/2 Tablet(s) 1 Tablet(s) PO QHS 11/17/2015 02/15/2016 In active trazodone 50 mg tablet RxNorm: 618343 1 Tablet(s) PO QHS 10/19/2015 11/16/2015 Inactive levothyroxine 200 mc g tablet RxNorm: 235292 1 Tablet(s) PO daily 10/02/2015 08/10/2016 Inactive Wellbutrin XL 150 mg 24 hr tablet, extended release RxNorm: 643770 1 Tablet(s) PO daily 10/02/2015 05/11/2016 Inactive levothyroxine 200 mc g tablet RxNorm: 790253 1 Tablet(s) PO daily 09/30/2015 10/01/2015 Inactive Wellbutrin XL 150 mg 24 hr tablet, extended release RxNorm: 074716 1 Tablet(s) PO daily 09/30/2015 10/01/2015 Inactive trazodone 50 mg tablet RxNorm: 149031 1 Tablet(s) PO QHS 09/11/2015 10/10/2015 Inactive trazodone 50 mg tablet RxNorm: 399258 1 Tablet(s) PO QHS 09/11/2015 09/10/2015 Inactive Cymbalta 30 mg capsu le,delayed release RxNorm: 791641 1 Capsule(s) PO daily 09/07/2015 11/16/2015 In active Cymbalta 60 mg capsu le,delayed release RxNorm: 354264 1 Capsule(s) PO daily 08/31/2015 08/30/2015 In active Cymbalta 30 mg capsu le,delayed release RxNorm: 699223 1 Capsule(s) PO daily take with 60mg to make 90 mg daily 08/31/2015 09/06/2015 Inactive Cymbalta 30 mg capsu le,delayed release RxNorm: 216734 1 Capsule(s) PO daily take with 60mg to make 90 mg daily 08/31/2015 08/30/2015 Inactive Cymbalta 60 mg capsu le,delayed release RxNorm: 700947 1 Capsule(s) PO daily x 7 days and then increase to 90mg daily 08/31/2015 09/07/2015 Inactive levothyroxine 200 mc g tablet RxNorm: 443178 1 Tablet(s) PO daily 08/14/2015 09/29/2015 Inactive Wellbutrin XL 150 mg 24 hr tablet, extended release RxNorm: 076095 1 Tablet(s) PO daily 07/14/2015 09/29/2015 Inactive Cialis 20 mg tablet RxNorm: 379062 1 Tablet(s) PO PRN 07/02/2015 02/15/2016 Inactive not more than 1 tab in 24 hours liothyronine 5 mcg t ablet RxNorm: 074085 1 Tablet(s) PO daily 2015 05/29/2016 Inactive clonazepam 1 mg tablet RxNorm: 893810 1 Tablet(s) PO TID 2015 02/15/2016 Inactive minocycline 50 mg ta blet RxNorm: 191197 1 Tablet(s) PO daily 2015 05/11/2016 Inactive Wellbutrin XL 150 mg 24 hr tablet, extended release RxNorm: 312567 1 Tablet(s) PO daily 04/23/2015 07/13/2015 Inactive levothyroxine 200 mc g tablet RxNorm: 935259 1 Tablet(s) PO daily 04/23/2015 08/13/2015 Inactive diclofenac oral RxNorm: 3355 oral No Start Date Active Aleve oral RxNorm: 132111 oral No Start Date Active Tylenol 500 mg RxNorm: oral No Start Date Active morphine ER 15 mg ta blet,extended release RxNorm: 026232 oral No Start Date 11/16/2016 Inactive Trazadone 25 mg RxNorm: 2 PO daily No Start Date 09/11/2015 Inactive clonazepam 1 mg tablet RxNorm: 126223 1 Tablet(s) PO QHS No Start Date 06/04/2015 Inactive Wellbutrin XL 150 mg 24 hr tablet, extended release RxNorm: 640545 1 Tablet(s) PO daily No Start Date 04/22/2015 Inactive minocycline 50 mg ta blet RxNorm: 540928 1 Tablet(s) PO daily No Start Date 06/04/2015 Inactive methadone 5 mg tablet RxNorm: 794903 1 Tablet(s) PO Q8 No Start Date 02/15/2016 Inactive Protonix 40 mg table t,delayed release RxNorm: 395517 Tablet(s) PO daily No Start Date 06/16/2016 Inactive Opana ER 15 mg table t, crush resistant, extended release RxNorm: 619705 1 Tablet(s) PO Q12H No Start Date 06/08/2017 Inactive MS Contin 30 mg tabl et,extended release RxNorm: 836977 1 Tablet(s) PO Q12H No Start Date 02/15/2016 Inactive Opana ER 15 mg table t, crush resistant, extended release RxNorm: 456527 1 Tablet(s) PO BID No Start Date 09/15/2016 Inactive liothyronine 5 mcg t ablet RxNorm: 264420 1 Tablet(s) PO daily No Start Date 06/04/2015 Inactive Cialis 20 mg tablet RxNorm: 545537 1 Tablet(s) PO PRN No Start Date 07/01/2015 Inactive not more than 1 tab in 24 hours baclofen 10 mg tablet RxNorm: 198483 1 Tablet(s) PO TID as needed No Start Date 05/11/2016 Inactive morphine 15 mg immed iate release tablet RxNorm: 108771 1 Tablet(s) PO Q6 PRN as needed No Start Date 02/15/2016 Inactive levothyroxine 200 mc g tablet RxNorm: 247511 1 Tablet(s) PO daily No Start Date 04/22/2015 Inactive Opana ER 5 mg tablet , crush resistant, extended release RxNorm: 030241 1 Tablet(s) PO Q6 No Start Date [...] Ord40 Fe-%Sat 7.1 % 12/06/2017 Free T4 Bdo620 FREE T4 1.82 ng/dL 12/01/2017 Tsh Ord6 [...] 27.0 pg 12/01/2017 Cbc With Differential Ord2 [place]% 10.6 % 12/01/2017 Cbc With Differential Ord2 [...] 1.92 K/ul 12/01/2017 Cbc With Differential Ord2 [place] ABS# 0.4 K/ul 12/01/2017 Cbc With Differential Ord2 Eos ABS# 0.2 K/ul 12/01/2017 Cbc With Differential Ord2 Baso ABS# 0.0 K/ul 12/01/2017 Comp Metabolic Nni866 NA 136 mEq/L 12/01/2017 Comp Metabolic Lgs948 K 4.6 mEq/L 12/01/2017 Comp Metabolic Myt961 CL 102 mEq/L 12/01/2017 Comp Metabolic Kuc280 CO2 27.0 mEq/L 12/01/2017 Comp Metabolic Qpb679 AN ION GAP 12 12/01/2017 Comp Metabolic Ehi445 GL UCOSE 90 mg/dL 12/01/2017 Comp Metabolic Vjt087 Cr eat 0.7 mg/dL 12/01/2017 Comp Metabolic Iir469 eG FR 123 ml/min/1.73m2 03/2018 Comp Metabolic Iph302 BUN 4 mg/dL 12/01/2017 Comp Metabolic Xee089 B/ C Ratio 5.6 Ratio 12/01/2017 Comp Metabolic Pyk951 CA LCIUM 9.0 mg/dL 12/01/2017 Comp Metabolic Ird971 AL K PHOS 67 U/L 12/01/2017 Comp Metabolic Lwl748 T(SGOT) 30 U/L 12/01/2017 Comp Metabolic Lss623 AL T(SGPT) 29 U/L 12/01/2017 Comp Metabolic Zgz100 BI LI T 0.3 mg/dL 12/01/2017 Comp Metabolic Jsq828 AL BUMIN 4.1 g/dL 12/01/2017 Comp Metabolic Uqu006 TP RO 6.1 g/dL 12/01/2017 Comp Metabolic Okj906 GL OB 2.0 g/dL 12/01/2017 Comp Metabolic Qlk249 A/ G Ratio 2.0 Ratio 12/01/2017 Comp Metabolic Wvk258 Os mo 268 mOsmo 12/01/2017 Comp Metabolic Xqy020 NA 136 mEq/L 02/16/2016 Comp Metabolic Gda466 K 4.2 mEq/L 02/16/2016 Comp Metabolic Wgz685 CL 104 mEq/L 02/16/2016 Comp Metabolic Dgp670 CO2 20.0 mEq/L 02/16/2016 Comp Metabolic Yei526 AN ION GAP 16 02/16/2016 Comp Metabolic Qnp454 GL UCOSE 71 mg/dL 02/16/2016 Comp Metabolic Nfb629 Cr eat 0.8 mg/dL 02/16/2016 Comp Metabolic Ldd146 eG FR 113 ml/min/1.73m2 01/26 Comp Metabolic Xld065 BUN 7 mg/dL 02/16/2016 Comp Metabolic Kui717 B/ C Ratio 9.1 Ratio 02/16/2016 Comp Metabolic Nct850 CA LCIUM 9.4 mg/dL 02/16/2016 Comp Metabolic Uoy473 AL K PHOS 57 U/L 02/16/2016 Comp Metabolic Jrz378 T(SGOT) 30 U/L 02/16/2016 Comp Metabolic Lmn175 AL T(SGPT) 27 U/L 02/16/2016 Comp Metabolic Wss611 BI LI T 0.2 mg/dL 02/16/2016 Comp Metabolic Eii523 AL BUMIN 4.4 g/dL 02/16/2016 Comp Metabolic Dya441 TP RO 6.5 g/dL 02/16/2016 Comp Metabolic Quz305 GL OB 2.1 g/dL 02/16/2016 Comp Metabolic Aoc199 A/ G Ratio 2.1 Ratio 02/16/2016 Comp Metabolic Dkf212 Os mo 268 mOsmo 02/16/2016 Free T4 Ioo169 FREE T4 1.20 ng/dL 02/16/2016 Cbc With [...] 90.6 fl 02/16/2016 Cbc With Differential Ord2 [place]% 9.6 % 02/16/2016 Cbc With Differential Ord2 [...] 1.50 K/ul 02/16/2016 Cbc With Differential Ord2 [place] ABS# 0.5 K/ul 02/16/2016 Cbc With Differential [...] 1: 132/72 Code: 8480-6 BMI: 33.4 Code: 35382-2 Heart Rate 1: 82 bpm Height: 5'6" SpO2: 97% Weight: 207 lbs 09/29/2017 Blood Pressure 1: 124/68 Code: 8480-6 BMI: 32.1 Code: 19428-7 Heart Rate 1: 77 bpm Height: 5'6" SpO2: 98% Weight: 199 lbs 08/11/2017 Blood Pressure 1: 154/82 Code: 8480-6 BMI: 31.6 Code: 82888-5 Heart Rate 1: 75 bpm Height: 5'6" SpO2: 98% Weight: 196 lbs 06/09/2017 Blood Pressure 1: 148/88 Code: 8480-6 BMI: 28.6 Code: 48051-7 Heart Rate 1: 88 bpm Height: 5'6" SpO2: 98% Weight: 177 lbs 04/07/2017 Blood Pressure 1: 140/84 Code: 8480-6 BMI: 30.3 Code: 27230-7 Heart Rate 1: 81 bpm Height: 5'6" SpO2: 99% Weight: 188 lbs 11/17/2016 Blood Pressure 1: 130/72 Code: 8480-6 Heart Rate 1: 63 bpm Height: SpO2: 93% Weight: 11/10/2016 Blood Pressure 1: 128/86 Code: 8480-6 BMI: 30.3 Code: 03209-6 Heart Rate 1: 84 bpm Height: 5'6" SpO2: 96% Weight: 188 lbs 10/14/2016 Heigh t: 5'6" 09/16/2016 Blood Pressure 1: 130/80 Code: 8480-6 BMI: 30.3 Code: 77911-0 Heart Rate 1: 67 bpm Height: 5'6" SpO2: 99% Weight: 188 lbs 08/19/2016 Blood Pressure 1: 110/62 Code: 8480-6 BMI: 29.9 Code: 66534-7 Heart Rate 1: 70 bpm Height: 5'6" SpO2: 97% Weight: 185 lbs 06/17/2016 Blood Pressure 1: 112/68 Code: 8480-6 BMI: 27.6 Code: 43440-6 Heart Rate 1: 61 bpm Height: 5'6" SpO2: 98% Weight: 171 lbs 05/12/2016 Blood Pressure 1: 130/76 Code: 8480-6 BMI: 29.7 Code: 86474-0 Heart Rate 1: 103 bpm Height: 5'6" SpO2: 98% Weight: 184 lbs 02/16/2016 Blood Pressure 1: 140/82 Code: 8480-6 BMI: 28.7 Code: 97870-8 Heart Rate 1: 66 bpm Height: 5'6" SpO2: 99% Weight: 178 lbs 11/17/2015 Blood Pressure 1: 120/74 Code: 8480-6 BMI: 29.4 Code: 19344-5 Heart Rate 1: 90 bpm Height: 5'6" SpO2: 94% Weight: 182 lbs 08/28/2015 Blood Pressure 1: 128/76 Code: 8480-6 BMI: 27.9 Code: 53710-7 Heart Rate 1: 80 bpm Height: 5'6" SpO2: 98% Weight: 173 lbs 05/28/2015 Blood Pressure 1: 122/70 Code: 8480-6 BMI: 27.0 Code: 20129-1 Heart Rate 1: 74 bpm Height: 5'6" SpO2: 98% Weight: 167 lbs 04/23/2015 Blood Pressure 1: 110/60 Code: 8480-6 BMI: 27.0 Code: 74431-2 Heart Rate 1: 68 bpm Height: 5'6" [...] Encounters Encounter Performer Loca tion Codes Date 93077 EST. PATIENT, LEVEL IV Diagnosis: Other specified hypothyroidism[ICD10: E03.8] Diagnosis: Chronic pain syndrome[ICD10: G89.4] Diagnosis: Major depressive disorder, recurrent, moderate[ICD10: F33.1] Denae Jacboo MD, [facility] CPT-4: 62635 12/01/2017 ([id number]) 04170 EST. P ATIENT, LEVEL IV Diagnosis: Chronic pain syndrome[ICD10: G89.4] Diagnosis: Alcohol dependence, uncomplicated[ICD10: F10.20] Diagnosis: Major depressive disorder, recurrent, moderate[ICD10: F33.1] Leydi Jacobo MD, [facility] CPT-4: 09641 09/29/2017 ([id number]) 01660 EST. P ATIENT, LEVEL IV Diagnosis: Chronic pain syndrome[ICD10: G89.4] Diagnosis: Alcohol dependence, uncomplicated[ICD10: F10.20] Diagnosis: Major depressive disorder, recurrent, moderate[ICD10: F33.1] Leydi Jacobo MD, [facility] CPT-4: 05161 08/11/2017 ([id number]) 61483 EST. P ATIENT, LEVEL III Diagnosis: Chronic pain syndrome[ICD10: G89.4] Diagnosis: Major depressive disorder, recurrent, moderate[ICD10: F33.1] Leydi Jacobo MD, [facility] CPT-4: 72568 06/09/2017 ([id number]) 01542 EST. P ATIENT, LEVEL III Diagnosis: Chronic pain syndrome[ICD10: G89.4] Diagnosis: Pain in left knee[ICD10: M25.562] Leydi Jacobo MD, [facility] CPT- 4: 90573 04/07/2017 06661 EST. PATIENT, LEVEL II Diagnosis: Superficial foreign body of left upper arm, initial encounter[ICD10: S40.852A] Diagnosis: Cellulitis of left upper limb[ICD10: L03.114] Leydi Jacobo MD, [facility] CPT-4: 49570 11/17/2016 62892 EST. PATIENT, LEVEL II Diagnosis: Cellulitis of left upper limb[ICD10: L03.114] Ledyi Jacobo MD, [facility] CPT-4: 40679 11/10/2016 ([id number]) 42531 EST. P ATIENT, LEVEL III Diagnosis: Chronic pain syndrome[ICD10: G89.4] Diagnosis: Major depressive disorder, recurrent, moderate[ICD10: F33.1] Leydi Jacobo MD, [facility] CPT-4: 28856 10/14/2016 71389 EST. PATIENT, LEVEL IV Diagnosis: Psychophysiologic insomnia[ICD10: F51.04] Diagnosis: Major depressive disorder, recurrent, moderate[ICD10: F33.1] Diagnosis: Alcohol dependence, uncomplicated[ICD10: F10.20] Diagnosis: Chronic pain syndrome[ICD10: G89.4] Leydi Jacobo MD, [facility] CPT-4: 63533 09/16/2016 ([id number]) 82193 EST. P ATIENT, LEVEL III Diagnosis: Pain in left shoulder[ICD10: M25.512] Diagnosis: Major depressive disorder, recurrent, moderate[ICD10: F33.1] Diagnosis: Psychophysiologic insomnia[ICD10: F51.04] Leydi Jacobo MD, [facility] CPT-4: 97366 08/19/2016 ([id number]) 47035 EST. P ATIENT, LEVEL III Diagnosis: Gastro-esophageal reflux disease without esophagitis[ICD10: K21.9] Diagnosis: Hypothyroidism, unspecified[ICD10: E03.9] Leydi Jacobo MD, [facility] CPT-4: 84726 06/17/2016 ([id number]) 35193 EST. P ATIENT, LEVEL IV Diagnosis: Gastro-esophageal reflux disease without esophagitis[ICD10: K21.9] Diagnosis: Hypothyroidism, unspecified[ICD10: E03.9] Diagnosis: Major depressive disorder, recurrent, moderate[ICD10: F33.1] Leydi Jacobo MD, [facility] CPT-4: 53702 05/12/2016 ([id number]) 87057 EST. P ATIENT, LEVEL III Diagnosis: Cervicalgia[ICD10: M54.2] Diagnosis: Hypothyroidism, unspecified[ICD10: E03.9] Diagnosis: Other male erectile dysfunction[ICD10: N52.8] Leydi Jacobo MD, [facility] CPT-4: 44252 02/16/2016 ([id number]) 21725 EST. P ATIENT, LEVEL III Diagnosis: Lumbago with sciatica, unspecified side[ICD10: M54.40] Diagnosis: Other male erectile dysfunction[ICD10: N52.8] Leydi Jacobo MD, [facility] CPT-4: 47355 11/17/2015 ([id number]) 10381 EST. P ATIENT, LEVEL III Diagnosis: Lumbago with sciatica, unspecified side[ICD10: M54.40] Diagnosis: Hypothyroidism, unspecified[ICD10: E03.9] Diagnosis: Other male erectile dysfunction[ICD10: N52.8] Leydi Jacobo MD, [facility] CPT-4: 01721 08/28/2015 ([id number]) 16883 EST. P ATIENT, LEVEL III Diagnosis: Back pain, chronic[ICD9: 724.5] Diagnosis: Depression[ICD9: 311] Diagnosis: Hypothyroid[ICD9: 244.9] Diagnosis: Bilateral calf pain[ICD9: 729.5] Julieta Jacobo MD, [facility] CPT-4: 40086 05/28/2015 ([id number]) OFFICE VISI T, NEW - LEVEL 4 Diagnosis: Back pain, chronic[ICD9: 724.5] Diagnosis: Depression[ICD9: 311] Diagnosis: Hypothyroid[ICD9: 244.9] [facility] CPT-4: 41053 04/23/2015 Plan of Care Planned Activity Notes [...] control. 12/01/2017 Appointment: Denae Martínez WPtel: [phone] (30 min) Complex 12/01/2017 Patient Education: Patient [...] treatment 09/29/2017 Appointment: Leydi Hightower WPtel: [phone] (30 min) Complex 09/29/2017 Patient Education: Patient [...] ider 08/11/2017 Appointment: Leydi Hightower WPtel: [phone] (30 min) Complex 08/11/2017 Patient Education: Patient [...] Leydi Hightower [facility]Ptel[phone] (30 min) Complex 06/09/2017 Patient Education: Patient [...] resolve 11/17/2016 Appointment: Leydi Hightower WPtel: [phone] (30 min) Complex 11/17/2016 Patient Education: Patient [...] in pain. 11/10/2016 Appointment: Leydi Hightower WPtel: [address] [place] [address] (30 min) Complex 11/10/2016 Patient Education: Patient [...] of plan. 10/14/2016 Appointment: Leydi Hightower WPtel: [address] [place] [address] (30 min) Complex 10/14/2016 Patient Education: Patient [...] will try 09/16/2016 Appointment: Leydi Hightower WPtel: [address] [place], [place] [phone] (30 min) Complex 09/16/2016 Patient Education: Patient Medication Summary Completed 09/16/2016 Visit Plan: Left shoulder and elbow pain-xray shoulder and elbow Fpuizkqyxw-uotoemfo-xgoypvwgifih-d/c trazodone-start remeron at bedtime Pt has been [...] Hightower WPtel: [phone] (30 min) Complex 08/19/2016 Patient Education: Patient [...] Completed 06/17/2016 Appointment: Leydi Hightower WPtel: [phone] (30 min) Complex 06/09/2016 Visit Plan: Esophageal [...] control. 05/12/2016 Appointment: [facility] [phone] [phone] (30 min) Complex 05/12/2016 Patient Education: Patient [...] in office. 05/28/2015 Appointment: Leydi Hightower WPtel[phone] (30 min) Complex 05/28/2015 Patient Education: Patient [...] Care Plan: COMPLETE CBC AUTOMATED LOINC : 17799-4 Ordered 04/23/2015 Instructions Comment . Chronic Pain [...] and elbow pain-xray shou lder and elbow Einhwogwgk-dcahuqpq-pqcopyhhljqa-d/c trazodone-start remeron at bedtime Pt has been [...]
--- OUTSIDE RECORDS SUMMARY | 2020-03-17 15:16 | XMS REPORT | CCD ---
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 Name Role Phone PP Unavailable CCM Unavailable Summary Purpose Interface Exchange Insurance Providers Payer name Policy type / Coverage type Covered republican ID Effective Begin Date Effective End Date WPS Medicare Part B Medicare Part B [id number] Unknown Unknown [facility] icare Part B [id number] Unknown Unk nown Family history Father Diagnosis Age At Onset Colon cancer Unknown Social History Social History Element Codes Description Effective Dates Marital status Unknown D ivorced 04/23/[address]: 175996601 Never smoker 04/23/[address]: 486714 Currently drinks alcohol occasionally drinks 04/23/2015 Allergies, [...] Fill Instructions tizanidine 4 mg tablet RxNorm: 284457 TAKE ONE TABLET BY MOUTH THREE TIMES A D AY NEEDED 01/02/2018 04/01/2018 Active Request already responded to by other means (e.g. phone or fax) bupropion HCl XL 300 mg 24 hr tablet, extended release RxNorm: 898464 TAKE ONE TABLET BY MOUTH DAILY 12/29/2017 06/26/2018 Active Tamiflu 75 mg capsule RxNorm: 682693 1 Capsule(s) PO BID 12/27/2017 12/31/2017 Inactive Tamiflu 75 mg capsule RxNorm: 305895 1 Capsule(s) PO BID 12/27/2017 12/26/2017 Inactive tizanidine 4 mg tablet RxNorm: 466425 1 Tablet(s) PO TID as needed 12/25/2017 01/01/2018 Inactive levothyroxine 175 mc g tablet RxNorm: 112405 1 Tablet(s) PO daily 12/14/2017 04/12/2018 Active levothyroxine 175 mc g tablet RxNorm: 339070 1 Tablet(s) PO daily 12/14/2017 12/13/2017 Inactive baclofen 10 mg tablet RxNorm: 623153 Tablet(s) TAKE ONE TABLET BY MOUTH THREE TIMES A DAY NEEDED 12/13/2017 01/11/2018 Active baclofen 10 mg tablet RxNorm: 443925 TAKE ONE TABLET BY MOUTH THREE TIMES A D AY NEEDED 12/13/2017 12/12/2017 Inactive morphine 30 mg table t, crush resistant, extended release RxNorm: 4199764 1 Tablet(s) PO BID 12/12/2017 02/09/2018 Active clonazepam 1 mg tablet RxNorm: 817390 1/2 Tablet(s) PO daily 12/01/2017 08/27/2018 Active trazodone 50 mg tablet RxNorm: 820892 1/2 to 1 Tablet(s) QHS as needed 12/01/2017 03/30/2018 Ac tive Opana ER 15 mg table t, crush resistant, extended release RxNorm: 820447 1 Tablet(s) PO Q12H 12/01/2017 02/28/2018 Active oxymorphone 5 mg tablet RxNorm: 749764 1 Tablet(s) PO Q6 PRN 12/01/2017 02/28/2018 Active Remeron 15 mg tablet RxNorm: 861492 Tablet(s) TAKE ONE TABLET BY MOUTH EVERY NIGHT AT BEDTIME 12/01/2017 02/28/2018 Active trazodone 50 mg tablet RxNorm: 653329 1/2 Tablet(s) as needed 1 Tablet(s) PO Q HS 12/01/2017 11/30/2017 In active clonazepam 1 mg tablet RxNorm: 320075 1/2 Tablet(s) PO daily 11/30/2017 11/30/2017 Inactive Remeron 15 mg tablet RxNorm: 106357 TAKE ONE TABLET BY MOUTH EVERY NIGHT AT BEDTIME 11/29/2017 11/30/2017 Inactive levothyroxine 200 mc g tablet RxNorm: 749461 TAKE ONE TABLET BY MO UTH DAILY 11/15/2017 12/13/2017 In active diclofenac sodium 75 mg tablet,delayed release RxNorm: 801526 1 Tablet(s) PO BID 11/07/2017 05/05/2018 Ac tive baclofen 10 mg tablet RxNorm: 449943 TAKE ONE TABLET BY MOUTH THREE TIMES A D AY NEEDED 11/07/2017 12/06/2017 Inactive liothyronine 5 mcg t ablet RxNorm: 226249 TAKE ONE TABLET BY [facility] DAILY 10/27/2017 07/23/2018 Ac tive tizanidine 4 mg tablet RxNorm: 216321 1 Tablet(s) PO TID as needed 10/18/2017 12/16/2017 Inactive oxymorphone 5 mg tablet RxNorm: 187958 1 Tablet(s) PO Q6 PRN 09/29/2017 11/27/2017 Inactive morphine 30 mg table t, crush resistant, extended release RxNorm: 7189223 1 Tablet(s) PO BID 09/29/2017 11/28/2017 Inactive baclofen 10 mg tablet RxNorm: 536790 1 Tablet(s) PO TID as needed 09/11/2017 10/10/2017 Inactive baclofen 10 mg tablet RxNorm: 714900 1 Tablet(s) PO TID as needed 08/11/2017 09/09/2017 Inactive Opana ER 15 mg table t, crush resistant, extended release RxNorm: 346402 1 Tablet(s) PO Q12H 08/11/2017 09/28/2017 Inactive Remeron 15 mg tablet RxNorm: 325553 TAKE ONE TABLET BY MOUTH EVERY NIGHT AT BEDTIME 08/02/2017 10/30/2017 Inactive oxymorphone 5 mg tablet RxNorm: 900513 1 Tablet(s) PO Q6 PRN 08/02/2017 09/28/2017 Inactive Opana ER 5 mg tablet , crush resistant, extended release RxNorm: 290766 1 Tablet(s) PO Q6 PRN 08/01/2017 08/10/2017 Inactive Protonix 40 mg table t,delayed release RxNorm: 630884 TAKE ONE TABLET BY MO [facility] DAILY 06/26/2017 10/23/2017 In active Protonix 40 mg table t,delayed release RxNorm: 926784 TAKE ONE TABLET BY [facility] DAILY 06/26/2017 06/25/2017 In active bupropion HCl XL 300 mg 24 hr tablet, extended release RxNorm: 629996 TAKE ONE TABLET BY MOUTH DAILY 06/13/2017 12/09/2017 Inactive tizanidine 4 mg tablet RxNorm: 467720 1 Tablet(s) PO TID as needed 06/13/2017 06/12/2017 Inactive tizanidine 4 mg tablet RxNorm: 311727 1 Tablet(s) PO TID as needed 06/13/2017 09/10/2017 Inactive baclofen 10 mg tablet RxNorm: 223474 1 Tablet(s) PO TID as needed 06/13/2017 07/12/2017 Inactive Opana ER 15 mg table t, crush resistant, extended release RxNorm: 462050 1 Tablet(s) PO Q12H 06/09/2017 08/07/2017 Inactive Opana ER 5 mg tablet , crush resistant, extended release RxNorm: 669857 1 Tablet(s) PO Q6 PRN 06/09/2017 07/31/2017 Inactive diclofenac sodium 75 mg tablet,delayed release RxNorm: 263444 1 Tablet(s) PO BID 06/09/2017 09/06/2017 In active clonazepam 1 mg tablet RxNorm: 664221 1/2 Tablet(s) PO daily 05/24/2017 11/18/2017 Inactive bupropion HCl XL 300 mg 24 hr tablet, extended release RxNorm: 909788 TAKE ONE TABLET BY MOUTH DAILY 03/16/2017 06/12/2017 Inactive clonazepam 1 mg tablet RxNorm: 986360 1/2 Tablet(s) PO daily 02/22/2017 05/18/2017 Inactive Remeron 15 mg tablet RxNorm: 827889 TAKE ONE TABLET BY MOUTH EVERY NIGHT AT BEDTIME 02/06/2017 2017 Inactive Protonix 40 mg table t,delayed release RxNorm: 850401 TAKE ONE TABLET BY MO UTH DAILY 01/26/2017 06/24/2017 In active mupirocin 2 % topica l ointment RxNorm: 262945 1 Application TOP BID 01/12/2017 01/18/2017 Inactive Bactrim DS 800 mg-16 0 mg tablet RxNorm: 646302 1 Tablet(s) PO BID 11/17/2016 11/23/2016 Inactive mupirocin 2 % topica l ointment RxNorm: 722552 1 Application TOP BID 11/10/2016 11/16/2016 Inactive Bactrim DS 800 mg-16 0 mg tablet RxNorm: 186785 1 Tablet(s) PO BID 11/10/2016 11/16/2016 Inactive bupropion HCl XL 300 mg 24 hr tablet, extended release RxNorm: 659831 TAKE ONE TABLET BY MOUTH DAILY 11/07/2016 03/06/2017 Inactive liothyronine 5 mcg t ablet RxNorm: 290644 1 Tablet(s) PO daily 11/01/2016 10/26/2017 Inactive levothyroxine 200 mc g tablet RxNorm: 482103 1 Tablet(s) PO daily 10/04/2016 09/28/2017 Inactive clonazepam 1 mg tablet RxNorm: 569711 1/2 Tablet(s) PO daily 09/21/2016 03/18/2017 Inactive clonazepam 1 mg tablet RxNorm: 237161 1/2 Tablet(s) PO daily 09/16/2016 09/20/2016 Inactive Abilify 2 mg tablet RxNorm: 894020 1 Tablet(s) PO daily 09/16/2016 10/13/2016 Inactive trazodone 50 mg tablet RxNorm: 658762 1/2 Tablet(s) as needed 1 Tablet(s) PO Q HS 09/16/2016 01/13/2017 In active morphine 15 mg immed iate release tablet RxNorm: 847080 1 Tablet(s) PO Q6 PRN 09/16/2016 04/06/2017 In active baclofen 10 mg tablet RxNorm: 065879 1 Tablet(s) PO TID as needed 09/16/2016 06/12/2017 Inactive MS Contin 30 mg tabl et,extended release RxNorm: 740046 1 Tablet(s) PO Q12H 09/16/2016 04/06/2017 In active Remeron 15 mg tablet RxNorm: 076712 1 Tablet(s) PO QHS 08/19/2016 09/15/2016 Inactive levothyroxine 200 mc g tablet RxNorm: 659161 1 Tablet(s) PO daily 08/11/2016 10/03/2016 Inactive bupropion HCl XL 300 mg 24 hr tablet, extended release RxNorm: 308963 TAKE ONE TABLET BY MOUTH DAILY 08/11/2016 11/06/2016 Inactive Protonix 40 mg table t,delayed release RxNorm: 989637 1 Tablet(s) PO daily 06/17/2016 12/13/2016 In active bupropion HCl XL 300 mg 24 hr tablet, extended release RxNorm: 541604 1 Tablet(s) PO daily 05/12/2016 07/10/2016 Inactive bupropion HCl XL 300 mg 24 hr tablet, extended release RxNorm: 688087 1 Tablet(s) PO daily 05/12/2016 05/11/2016 Inactive Cialis 20 mg tablet RxNorm: 516695 1 Tablet(s) PO PRN 02/16/2016 No Stop Date Active not more than 1 tab in 24 hours morphine ER 10 mg ca psule,extended release pellets RxNorm: 617465 1 Tablet(s) PO Q6 as needed 02/16/2016 11/16/2016 Inactive clonazepam 1 mg tablet RxNorm: 228132 1/2 Tablet(s) PO BID 02/16/2016 09/15/2016 Inactive trazodone 50 mg tablet RxNorm: 685644 1/2 Tablet(s) as needed 1 Tablet(s) PO Q HS 02/16/2016 08/18/2016 In active trazodone 50 mg tablet RxNorm: 143661 1/2 Tablet(s) 1 Tablet(s) PO QHS 11/17/2015 02/15/2016 In active trazodone 50 mg tablet RxNorm: 619072 1 Tablet(s) PO QHS 10/19/2015 11/16/2015 Inactive levothyroxine 200 mc g tablet RxNorm: 545129 1 Tablet(s) PO daily 10/02/2015 08/10/2016 Inactive Wellbutrin XL 150 mg 24 hr tablet, extended release RxNorm: 231204 1 Tablet(s) PO daily 10/02/2015 05/11/2016 Inactive levothyroxine 200 mc g tablet RxNorm: 870326 1 Tablet(s) PO daily 09/30/2015 10/01/2015 Inactive Wellbutrin XL 150 mg 24 hr tablet, extended release RxNorm: 108425 1 Tablet(s) PO daily 09/30/2015 10/01/2015 Inactive trazodone 50 mg tablet RxNorm: 335345 1 Tablet(s) PO QHS 09/11/2015 10/10/2015 Inactive trazodone 50 mg tablet RxNorm: 348345 1 Tablet(s) PO QHS 09/11/2015 09/10/2015 Inactive Cymbalta 30 mg capsu le,delayed release RxNorm: 650678 1 Capsule(s) PO daily 09/07/2015 11/16/2015 In active Cymbalta 60 mg capsu le,delayed release RxNorm: 990614 1 Capsule(s) PO daily 08/31/2015 08/30/2015 In active Cymbalta 30 mg capsu le,delayed release RxNorm: 111240 1 Capsule(s) PO daily take with 60mg to make 90 mg daily 08/31/2015 09/06/2015 Inactive Cymbalta 30 mg capsu le,delayed release RxNorm: 907071 1 Capsule(s) PO daily take with 60mg to make 90 mg daily 08/31/2015 08/30/2015 Inactive Cymbalta 60 mg capsu le,delayed release RxNorm: 178209 1 Capsule(s) PO daily x 7 days and then increase to 90mg daily 08/31/2015 09/07/2015 Inactive levothyroxine 200 mc g tablet RxNorm: 522869 1 Tablet(s) PO daily 08/14/2015 09/29/2015 Inactive Wellbutrin XL 150 mg 24 hr tablet, extended release RxNorm: 293213 1 Tablet(s) PO daily 07/14/2015 09/29/2015 Inactive Cialis 20 mg tablet RxNorm: 051625 1 Tablet(s) PO PRN 07/02/2015 02/15/2016 Inactive not more than 1 tab in 24 hours liothyronine 5 mcg t ablet RxNorm: 752857 1 Tablet(s) PO daily 2015 05/29/2016 Inactive clonazepam 1 mg tablet RxNorm: 390420 1 Tablet(s) PO TID 2015 02/15/2016 Inactive minocycline 50 mg ta blet RxNorm: 895765 1 Tablet(s) PO daily 2015 05/11/2016 Inactive Wellbutrin XL 150 mg 24 hr tablet, extended release RxNorm: 797904 1 Tablet(s) PO daily 04/23/2015 07/13/2015 Inactive levothyroxine 200 mc g tablet RxNorm: 288728 1 Tablet(s) PO daily 04/23/2015 08/13/2015 Inactive diclofenac oral RxNorm: 3355 oral No Start Date Active Aleve oral RxNorm: 875189 oral No Start Date Active Tylenol 500 mg RxNorm: oral No Start Date Active morphine ER 15 mg ta blet,extended release RxNorm: 647412 oral No Start Date 11/16/2016 Inactive Trazadone 25 mg RxNorm: 2 PO daily No Start Date 09/11/2015 Inactive clonazepam 1 mg tablet RxNorm: 029147 1 Tablet(s) PO QHS No Start Date 06/04/2015 Inactive Wellbutrin XL 150 mg 24 hr tablet, extended release RxNorm: 306736 1 Tablet(s) PO daily No Start Date 04/22/2015 Inactive minocycline 50 mg ta blet RxNorm: 286006 1 Tablet(s) PO daily No Start Date 06/04/2015 Inactive methadone 5 mg tablet RxNorm: 121702 1 Tablet(s) PO Q8 No Start Date 02/15/2016 Inactive Protonix 40 mg table t,delayed release RxNorm: 875615 Tablet(s) PO daily No Start Date 06/16/2016 Inactive Opana ER 15 mg table t, crush resistant, extended release RxNorm: 404395 1 Tablet(s) PO Q12H No Start Date 06/08/2017 Inactive MS Contin 30 mg tabl et,extended release RxNorm: 624633 1 Tablet(s) PO Q12H No Start Date 02/15/2016 Inactive Opana ER 15 mg table t, crush resistant, extended release RxNorm: 695948 1 Tablet(s) PO BID No Start Date 09/15/2016 Inactive liothyronine 5 mcg t ablet RxNorm: 837379 1 Tablet(s) PO daily No Start Date 06/04/2015 Inactive Cialis 20 mg tablet RxNorm: 915270 1 Tablet(s) PO PRN No Start Date 07/01/2015 Inactive not more than 1 tab in 24 hours baclofen 10 mg tablet RxNorm: 943227 1 Tablet(s) PO TID as needed No Start Date 05/11/2016 Inactive morphine 15 mg immed iate release tablet RxNorm: 901350 1 Tablet(s) PO Q6 PRN as needed No Start Date 02/15/2016 Inactive levothyroxine 200 mc g tablet RxNorm: 004070 1 Tablet(s) PO daily No Start Date 04/22/2015 Inactive Opana ER 5 mg tablet , crush resistant, extended release RxNorm: 912534 1 Tablet(s) PO Q6 No Start Date [...] Ord40 Fe-%Sat 7.1 % 12/06/2017 Free T4 Hbo454 FREE T4 1.82 ng/dL 12/01/2017 Tsh Ord6 [...] 27.0 pg 12/01/2017 Cbc With Differential Ord2 [place]% 10.6 % 12/01/2017 Cbc With Differential Ord2 [...] 1.92 K/ul 12/01/2017 Cbc With Differential Ord2 [place] ABS# 0.4 K/ul 12/01/2017 Cbc With Differential Ord2 Eos ABS# 0.2 K/ul 12/01/2017 Cbc With Differential Ord2 Baso ABS# 0.0 K/ul 12/01/2017 Comp Metabolic Uzn180 NA 136 mEq/L 12/01/2017 Comp Metabolic Pxn107 K 4.6 mEq/L 12/01/2017 Comp Metabolic Geu701 CL 102 mEq/L 12/01/2017 Comp Metabolic Yak449 CO2 27.0 mEq/L 12/01/2017 Comp Metabolic Sau666 AN ION GAP 12 12/01/2017 Comp Metabolic Bvm567 GL UCOSE 90 mg/dL 12/01/2017 Comp Metabolic Dkv380 Cr eat 0.7 mg/dL 12/01/2017 Comp Metabolic Cml806 eG FR 123 ml/min/1.73m2 03/2018 Comp Metabolic Zuz124 BUN 4 mg/dL 12/01/2017 Comp Metabolic Ktx855 B/ C Ratio 5.6 Ratio 12/01/2017 Comp Metabolic Ffj041 CA LCIUM 9.0 mg/dL 12/01/2017 Comp Metabolic Kvd739 AL K PHOS 67 U/L 12/01/2017 Comp Metabolic Isr213 T(SGOT) 30 U/L 12/01/2017 Comp Metabolic Zsc046 AL T(SGPT) 29 U/L 12/01/2017 Comp Metabolic Bql910 BI LI T 0.3 mg/dL 12/01/2017 Comp Metabolic Tne961 AL BUMIN 4.1 g/dL 12/01/2017 Comp Metabolic Sgn572 TP RO 6.1 g/dL 12/01/2017 Comp Metabolic Dgb506 GL OB 2.0 g/dL 12/01/2017 Comp Metabolic Zvm307 A/ G Ratio 2.0 Ratio 12/01/2017 Comp Metabolic Tnv082 Os mo 268 mOsmo 12/01/2017 Comp Metabolic Dnl393 NA 136 mEq/L 02/16/2016 Comp Metabolic Gft293 K 4.2 mEq/L 02/16/2016 Comp Metabolic Wta518 CL 104 mEq/L 02/16/2016 Comp Metabolic Qcy543 CO2 20.0 mEq/L 02/16/2016 Comp Metabolic Eys722 AN ION GAP 16 02/16/2016 Comp Metabolic Jhy087 GL UCOSE 71 mg/dL 02/16/2016 Comp Metabolic Ohb512 Cr eat 0.8 mg/dL 02/16/2016 Comp Metabolic Fal164 eG FR 113 ml/min/1.73m2 01/26 Comp Metabolic Mco076 BUN 7 mg/dL 02/16/2016 Comp Metabolic Jip812 B/ C Ratio 9.1 Ratio 02/16/2016 Comp Metabolic Aev374 CA LCIUM 9.4 mg/dL 02/16/2016 Comp Metabolic Huc607 AL K PHOS 57 U/L 02/16/2016 Comp Metabolic Mcv940 T(SGOT) 30 U/L 02/16/2016 Comp Metabolic Fnl252 AL T(SGPT) 27 U/L 02/16/2016 Comp Metabolic Dgf032 BI LI T 0.2 mg/dL 02/16/2016 Comp Metabolic Xgo875 AL BUMIN 4.4 g/dL 02/16/2016 Comp Metabolic Peg390 TP RO 6.5 g/dL 02/16/2016 Comp Metabolic Fpt096 GL OB 2.1 g/dL 02/16/2016 Comp Metabolic Tjs778 A/ G Ratio 2.1 Ratio 02/16/2016 Comp Metabolic Hli120 Os mo 268 mOsmo 02/16/2016 Free T4 Tbb825 FREE T4 1.20 ng/dL 02/16/2016 Cbc With [...] 90.6 fl 02/16/2016 Cbc With Differential Ord2 [place]% 9.6 % 02/16/2016 Cbc With Differential Ord2 [...] 1.50 K/ul 02/16/2016 Cbc With Differential Ord2 [place] ABS# 0.5 K/ul 02/16/2016 Cbc With Differential [...] clear 12/01/2017 None Full Exam - General 1995 Respiratory [...] 1: 132/72 Code: 8480-6 BMI: 33.4 Code: 29082-2 Heart Rate 1: 82 bpm Height: 5'6" SpO2: 97% Weight: 207 lbs 09/29/2017 Blood Pressure 1: 124/68 Code: 8480-6 BMI: 32.1 Code: 34467-0 Heart Rate 1: 77 bpm Height: 5'6" SpO2: 98% Weight: 199 lbs 08/11/2017 Blood Pressure 1: 154/82 Code: 8480-6 BMI: 31.6 Code: 98638-3 Heart Rate 1: 75 bpm Height: 5'6" SpO2: 98% Weight: 196 lbs 06/09/2017 Blood Pressure 1: 148/88 Code: 8480-6 BMI: 28.6 Code: 10878-7 Heart Rate 1: 88 bpm Height: 5'6" SpO2: 98% Weight: 177 lbs 04/07/2017 Blood Pressure 1: 140/84 Code: 8480-6 BMI: 30.3 Code: 14792-7 Heart Rate 1: 81 bpm Height: 5'6" SpO2: 99% Weight: 188 lbs 11/17/2016 Blood Pressure 1: 130/72 Code: 8480-6 Heart Rate 1: 63 bpm Height: SpO2: 93% Weight: 11/10/2016 Blood Pressure 1: 128/86 Code: 8480-6 BMI: 30.3 Code: 87241-0 Heart Rate 1: 84 bpm Height: 5'6" SpO2: 96% Weight: 188 lbs 10/14/2016 Heigh t: 5'6" 09/16/2016 Blood Pressure 1: 130/80 Code: 8480-6 BMI: 30.3 Code: 92121-7 Heart Rate 1: 67 bpm Height: 5'6" SpO2: 99% Weight: 188 lbs 08/19/2016 Blood Pressure 1: 110/62 Code: 8480-6 BMI: 29.9 Code: 18579-0 Heart Rate 1: 70 bpm Height: 5'6" SpO2: 97% Weight: 185 lbs 06/17/2016 Blood Pressure 1: 112/68 Code: 8480-6 BMI: 27.6 Code: 85002-0 Heart Rate 1: 61 bpm Height: 5'6" SpO2: 98% Weight: 171 lbs 05/12/2016 Blood Pressure 1: 130/76 Code: 8480-6 BMI: 29.7 Code: 91878-1 Heart Rate 1: 103 bpm Height: 5'6" SpO2: 98% Weight: 184 lbs 02/16/2016 Blood Pressure 1: 140/82 Code: 8480-6 BMI: 28.7 Code: 67600-2 Heart Rate 1: 66 bpm Height: 5'6" SpO2: 99% Weight: 178 lbs 11/17/2015 Blood Pressure 1: 120/74 Code: 8480-6 BMI: 29.4 Code: 77741-3 Heart Rate 1: 90 bpm Height: 5'6" SpO2: 94% Weight: 182 lbs 08/28/2015 Blood Pressure 1: 128/76 Code: 8480-6 BMI: 27.9 Code: 57656-7 Heart Rate 1: 80 bpm Height: 5'6" SpO2: 98% Weight: 173 lbs 05/28/2015 Blood Pressure 1: 122/70 Code: 8480-6 BMI: 27.0 Code: 54467-0 Heart Rate 1: 74 bpm Height: 5'6" SpO2: 98% Weight: 167 lbs 04/23/2015 Blood Pressure 1: 110/60 Code: 8480-6 BMI: 27.0 Code: 69823-9 Heart Rate 1: 68 bpm Height: 5'6" [...] Encounters Encounter Performer Loca tion Codes Date 37852 EST. PATIENT, LEVEL IV Diagnosis: Other specified hypothyroidism[ICD10: E03.8] Diagnosis: Chronic pain syndrome[ICD10: G89.4] Diagnosis: Major depressive disorder, recurrent, moderate[ICD10: F33.1] Denae Jacobo MD, [facility] CPT-4: 75049 12/01/2017 ([id number]) 29324 EST. P ATIENT, LEVEL IV Diagnosis: Chronic pain syndrome[ICD10: G89.4] Diagnosis: Alcohol dependence, uncomplicated[ICD10: F10.20] Diagnosis: Major depressive disorder, recurrent, moderate[ICD10: F33.1] Leydi Jacobo MD, [facility] CPT-4: 77090 09/29/2017 ([id number]) 46065 EST. P ATIENT, LEVEL IV Diagnosis: Chronic pain syndrome[ICD10: G89.4] Diagnosis: Alcohol dependence, uncomplicated[ICD10: F10.20] Diagnosis: Major depressive disorder, recurrent, moderate[ICD10: F33.1] Leydi Jacobo MD, [facility] CPT-4: 22425 08/11/2017 ([id number]) 56577 EST. [facility]: Chronic pain syndrome[ICD10: G89.4] Diagnosis: Major depressive disorder, recurrent, moderate[ICD10: F33.1] Leydi Jacobo MD, [facility] CPT-4: 31204 06/09/2017 ([id number]) 66072 EST. [facility] Diagnosis: Chronic pain syndrome[ICD10: G89.4] Diagnosis: Pain in left knee[ICD10: M25.562] Leydi Jacobo MD, [facility] CPT- 4: 93104 04/07/2017 [id number] EST. PATIENT, LEVEL II Diagnosis: Superficial foreign body of left upper arm, initial encounter[ICD10: S40.852A] Diagnosis: Cellulitis of left upper limb[ICD10: L03.114] Leydi Jacobo MD, [facility] CPT-4: 98282 11/17/2016 29503 EST. PATIENT, LEVEL II Diagnosis: Cellulitis of left upper limb[ICD10: L03.114] Leydi Jacobo MD, [facility] CPT-4: 30009 11/10/2016 ([id number]) 71763 EST. [facility] Diagnosis: Chronic pain syndrome[ICD10: G89.4] Diagnosis: Major depressive disorder, recurrent, moderate[ICD10: F33.1] Leydi Jacobo MD, [facility] CPT-4: 05079 10/14/2016 47482 EST. PATIENT, LEVEL IV Diagnosis: Psychophysiologic insomnia[ICD10: F51.04] Diagnosis: Major depressive disorder, recurrent, moderate[ICD10: F33.1] Diagnosis: Alcohol dependence, uncomplicated[ICD10: F10.20] Diagnosis: Chronic pain syndrome[ICD10: G89.4] Leydi Jacobo MD, [facility] CPT-4: 52385 09/16/2016 ([id number]) 17395 EST. P ATIENT, LEVEL III Diagnosis: Pain in left shoulder[ICD10: M25.512] Diagnosis: Major depressive disorder, recurrent, moderate[ICD10: F33.1] Diagnosis: Psychophysiologic insomnia[ICD10: F51.04] Leydi Jacobo MD, [facility] CPT-4: 16521 08/19/2016 ([id number]) 84239 EST. P ATIENT, LEVEL III Diagnosis: Gastro-esophageal reflux disease without esophagitis[ICD10: K21.9] Diagnosis: Hypothyroidism, unspecified[ICD10: E03.9] Leydi Jacobo MD, [facility] CPT-4: 31087 06/17/2016 ([id number]) 54203 EST. P ATIENT, LEVEL IV Diagnosis: Gastro-esophageal reflux disease without esophagitis[ICD10: K21.9] Diagnosis: Hypothyroidism, unspecified[ICD10: E03.9] Diagnosis: Major depressive disorder, recurrent, moderate[ICD10: F33.1] Leydi Jacobo MD, [facility] CPT-4: 80073 05/12/2016 ([id number]) 83220 EST. P ATIENT, LEVEL III Diagnosis: Cervicalgia[ICD10: M54.2] Diagnosis: Hypothyroidism, unspecified[ICD10: E03.9] Diagnosis: Other male erectile dysfunction[ICD10: N52.8] Leydi Jacobo MD, [facility] CPT-4: 25850 02/16/2016 ([id number]) 65410 EST. P ATIENT, LEVEL III Diagnosis: Lumbago with sciatica, unspecified side[ICD10: M54.40] Diagnosis: Other male erectile dysfunction[ICD10: N52.8] Leydi Jacobo MD, [facility] CPT-4: 40672 11/17/2015 ([id number]) 62561 EST. P ATIENT, LEVEL III Diagnosis: Lumbago with sciatica, unspecified side[ICD10: M54.40] Diagnosis: Hypothyroidism, unspecified[ICD10: E03.9] Diagnosis: Other male erectile dysfunction[ICD10: N52.8] Leydi Jacobo MD, [facility] CPT-4: 46468 08/28/2015 ([id number]) 37767 EST. P ATIENT, LEVEL III Diagnosis: Back pain, chronic[ICD9: 724.5] Diagnosis: Depression[ICD9: 311] Diagnosis: Hypothyroid[ICD9: 244.9] Diagnosis: Bilateral calf pain[ICD9: 729.5] [facility] CPT-4: 78964 05/28/2015 ([id number]) OFFICE VISI T, NEW - LEVEL 4 Diagnosis: Back pain, chronic[ICD9: 724.5] Diagnosis: Depression[ICD9: 311] Diagnosis: Hypothyroid[ICD9: 244.9] [facility] CPT-4: 98569 04/23/2015 Plan of Care Planned Activity Notes [...] of control. 12/01/2017 Appointment: Denae Martínez WPtel: [address] [place], [place] [id number] (30 min) [facility] 12/01/2017 Patient Education: Patient Medication Summary Completed [...] outpatient treatment 09/29/2017 Appointment: Leydi Hightower WPtel: [facility] [place] [address] (30 min) Complex 09/29/2017 Patient Education: Patient [...] cons ider 08/11/2017 Appointment: Leydi Hightower WPtel: [facility] [place] [address] (30 min) Complex 08/11/2017 Patient Education: Patient [...] 06/09/2017 Appointment: Leydi Hightower WPtel: [phone] (30 min) Complex 06/09/2017 Patient Education: Patient [...] completely resolve 11/17/2016 Appointment: Leydi Hightower WPtel: [address] [place], [place] [phone] (30 min) Complex 11/17/2016 Patient Education: Patient [...] in pain. 11/10/2016 Appointment: Leydi Hightower WPtel: [address] [place], [place] [phone] (30 min) Complex 11/10/2016 Patient Education: Patient [...] of plan. 10/14/2016 Appointment: Leydi Hightower WPtel: [address] [place], [place] [phone] (30 min) Complex 10/14/2016 Patient Education: Patient [...] try 09/16/2016 App[facility]ment: [phone] [phone] (30 min) Complex 09/16/2016 Patient Education: Patient Medication Summary Completed 09/16/2016 Visit Plan: Left shoulder and elbow pain-xray shoulder and elbow Wzasentnov-ablkyubd-lfejzccyqlun-d/c trazodone-start remeron at bedtime Pt has been [...] patient. 08/19/2016 Appointment: [facility] [phone] [phone] (30 min) Complex 08/19/2016 Patient Education: [...] Completed 06/17/2016 Appointment: [facility] Hightower [facility] [phone] [phone] (30 min) Complex 06/09/2016 Visit Plan: [...] control. 05/12/2016 Appointment: [phone] [phone] (30 min) Complex 05/12/2016 Patient Education: [...] in office. 05/28/2015 Appointment: Leydi Hightower WPtel: [address] [place], [place] [phone] (30 min) Complex 05/28/2015 Patient Education: Patient [...] Care Plan: COMPLETE CBC AUTOMATED LOINC : 20237-6 Ordered 04/23/2015 Instructions Comment . Chronic Pain [...] and elbow pain-xray shou lder and elbow Pauztwsinu-enzwfmff-ameiandbsuyf-d/c trazodone-start remeron at bedtime Pt has been [...]
--- OUTSIDE RECORDS SUMMARY | 2020-03-17 15:17 | XMS REPORT | CCD ---
Author Author Thai Castillo Organization Sara Jacobo MD, [facility] Address [address] [place] [address] Phone Care Team Providers Care Fiscal Services Manager Name Role Phone PP Unavailable CCM Unavailable Summary Purpose Interface Exchange Insurance Providers Payer name Policy type / Coverage type Covered democrat ID Effective Begin Date Effective End Date WPS Medicare Part B Medicare Part B [id number] Unknown Unknown [facility] icare Part B [id number] Unknown Unk nown Family history Father Diagnosis Age At Onset Colon cancer Unknown Social History Social History Element Codes Description Effective Dates Marital status Unknown D ivorced 04/23/[address]: 165797497 Never smoker 04/23/[address]: 130768 Currently drinks alcohol occasionally drinks 04/23/2015 Allergies, [...] Fill Instructions tizanidine 4 mg tablet RxNorm: 177409 TAKE ONE TABLET BY MOUTH THREE TIMES A D AY NEEDED 01/02/2018 04/01/2018 Active Request already responded to by other means (e.g. phone or fax) bupropion HCl XL 300 mg 24 hr tablet, extended release RxNorm: 535088 TAKE ONE TABLET BY MOUTH DAILY 12/29/2017 06/26/2018 Active Tamiflu 75 mg capsule RxNorm: 566676 1 Capsule(s) PO BID 12/27/2017 12/31/2017 Inactive Tamiflu 75 mg capsule RxNorm: 146615 1 Capsule(s) PO BID 12/27/2017 12/26/2017 Inactive tizanidine 4 mg tablet RxNorm: 822205 1 Tablet(s) PO TID as needed 12/25/2017 01/01/2018 Inactive levothyroxine 175 mc g tablet RxNorm: 261888 1 Tablet(s) PO daily 12/14/2017 04/12/2018 Active levothyroxine 175 mc g tablet RxNorm: 747165 1 Tablet(s) PO daily 12/14/2017 12/13/2017 Inactive baclofen 10 mg tablet RxNorm: 997173 Tablet(s) TAKE ONE TABLET BY MOUTH THREE TIMES A DAY NEEDED 12/13/2017 01/11/2018 Active baclofen 10 mg tablet RxNorm: 954965 TAKE ONE TABLET BY MOUTH THREE TIMES A D AY NEEDED 12/13/2017 12/12/2017 Inactive morphine 30 mg table t, crush resistant, extended release RxNorm: 6941424 1 Tablet(s) PO BID 12/12/2017 02/09/2018 Active clonazepam 1 mg tablet RxNorm: 440722 1/2 Tablet(s) PO daily 12/01/2017 08/27/2018 Active trazodone 50 mg tablet RxNorm: 227166 1/2 to 1 Tablet(s) QHS as needed 12/01/2017 03/30/2018 Ac tive Opana ER 15 mg table t, crush resistant, extended release RxNorm: 115429 1 Tablet(s) PO Q12H 12/01/2017 02/28/2018 Active oxymorphone 5 mg tablet RxNorm: 323822 1 Tablet(s) PO Q6 PRN 12/01/2017 02/28/2018 Active Remeron 15 mg tablet RxNorm: 442001 Tablet(s) TAKE ONE TABLET BY MOUTH EVERY NIGHT AT BEDTIME 12/01/2017 02/28/2018 Active trazodone 50 mg tablet RxNorm: 709200 1/2 Tablet(s) as needed 1 Tablet(s) PO Q HS 12/01/2017 11/30/2017 In active clonazepam 1 mg tablet RxNorm: 282273 1/2 Tablet(s) PO daily 11/30/2017 11/30/2017 Inactive Remeron 15 mg tablet RxNorm: 544479 TAKE ONE TABLET BY MOUTH EVERY NIGHT AT BEDTIME 11/29/2017 11/30/2017 Inactive levothyroxine 200 mc g tablet RxNorm: 479253 TAKE ONE TABLET BY MO [facility] DAILY 11/15/2017 12/13/2017 In active diclofenac sodium 75 mg tablet,delayed release RxNorm: 625930 1 Tablet(s) PO BID 11/07/2017 05/05/2018 Ac tive baclofen 10 mg tablet RxNorm: 095787 TAKE ONE TABLET BY MOUTH THREE TIMES A D AY NEEDED 11/07/2017 12/06/2017 Inactive liothyronine 5 mcg t ablet RxNorm: 349742 TAKE ONE TABLET BY [facility] DAILY 10/27/2017 07/23/2018 Ac tive tizanidine 4 mg tablet RxNorm: 748800 1 Tablet(s) PO TID as needed 10/18/2017 12/16/2017 Inactive oxymorphone 5 mg tablet RxNorm: 564239 1 Tablet(s) PO Q6 PRN 09/29/2017 11/27/2017 Inactive morphine 30 mg table t, crush resistant, extended release RxNorm: 6323358 1 Tablet(s) PO BID 09/29/2017 11/28/2017 Inactive baclofen 10 mg tablet RxNorm: 723875 1 Tablet(s) PO TID as needed 09/11/2017 10/10/2017 Inactive baclofen 10 mg tablet RxNorm: 559538 1 Tablet(s) PO TID as needed 08/11/2017 09/09/2017 Inactive Opana ER 15 mg table t, crush resistant, extended release RxNorm: 722017 1 Tablet(s) PO Q12H 08/11/2017 09/28/2017 Inactive Remeron 15 mg tablet RxNorm: 683762 TAKE ONE TABLET BY MOUTH EVERY NIGHT AT BEDTIME 08/02/2017 10/30/2017 Inactive oxymorphone 5 mg tablet RxNorm: 523551 1 Tablet(s) PO Q6 PRN 08/02/2017 09/28/2017 Inactive Opana ER 5 mg tablet , crush resistant, extended release RxNorm: 556088 1 Tablet(s) PO Q6 PRN 08/01/2017 08/10/2017 Inactive Protonix 40 mg table t,delayed release RxNorm: 697262 TAKE ONE TABLET BY MO [facility] DAILY 06/26/2017 10/23/2017 In active Protonix 40 mg table t,delayed release RxNorm: 932579 TAKE ONE TABLET BY [facility] DAILY 06/26/2017 06/25/2017 In active bupropion HCl XL 300 mg 24 hr tablet, extended release RxNorm: 181600 TAKE ONE TABLET BY MOUTH DAILY 06/13/2017 12/09/2017 Inactive tizanidine 4 mg tablet RxNorm: 905913 1 Tablet(s) PO TID as needed 06/13/2017 06/12/2017 Inactive tizanidine 4 mg tablet RxNorm: 307630 1 Tablet(s) PO TID as needed 06/13/2017 09/10/2017 Inactive baclofen 10 mg tablet RxNorm: 879423 1 Tablet(s) PO TID as needed 06/13/2017 07/12/2017 Inactive Opana ER 15 mg table t, crush resistant, extended release RxNorm: 942866 1 Tablet(s) PO Q12H 06/09/2017 08/07/2017 Inactive Opana ER 5 mg tablet , crush resistant, extended release RxNorm: 043021 1 Tablet(s) PO Q6 PRN 06/09/2017 07/31/2017 Inactive diclofenac sodium 75 mg tablet,delayed release RxNorm: 354829 1 Tablet(s) PO BID 06/09/2017 09/06/2017 In active clonazepam 1 mg tablet RxNorm: 168126 1/2 Tablet(s) PO daily 05/24/2017 11/18/2017 Inactive bupropion HCl XL 300 mg 24 hr tablet, extended release RxNorm: 549391 TAKE ONE TABLET BY MOUTH DAILY 03/16/2017 06/12/2017 Inactive clonazepam 1 mg tablet RxNorm: 589963 1/2 Tablet(s) PO daily 02/22/2017 05/18/2017 Inactive Remeron 15 mg tablet RxNorm: 790508 TAKE ONE TABLET BY MOUTH EVERY NIGHT AT BEDTIME 02/06/2017 2017 Inactive Protonix 40 mg table t,delayed release RxNorm: 250526 TAKE ONE TABLET BY MO [facility] DAILY 01/26/2017 06/24/2017 In active mupirocin 2 % topica l ointment RxNorm: 569351 1 Application TOP BID 01/12/2017 01/18/2017 Inactive Bactrim DS 800 mg-16 0 mg tablet RxNorm: 091868 1 Tablet(s) PO BID 11/17/2016 11/23/2016 Inactive mupirocin 2 % topica l ointment RxNorm: 712067 1 Application TOP BID 11/10/2016 11/16/2016 Inactive Bactrim DS 800 mg-16 0 mg tablet RxNorm: 266682 1 Tablet(s) PO BID 11/10/2016 11/16/2016 Inactive bupropion HCl XL 300 mg 24 hr tablet, extended release RxNorm: 746606 TAKE ONE TABLET BY MOUTH DAILY 11/07/2016 03/06/2017 Inactive liothyronine 5 mcg t ablet RxNorm: 412279 1 Tablet(s) PO daily 11/01/2016 10/26/2017 Inactive levothyroxine 200 mc g tablet RxNorm: 075296 1 Tablet(s) PO daily 10/04/2016 09/28/2017 Inactive clonazepam 1 mg tablet RxNorm: 920898 1/2 Tablet(s) PO daily 09/21/2016 03/18/2017 Inactive clonazepam 1 mg tablet RxNorm: 185538 1/2 Tablet(s) PO daily 09/16/2016 09/20/2016 Inactive Abilify 2 mg tablet RxNorm: 362791 1 Tablet(s) PO daily 09/16/2016 10/13/2016 Inactive trazodone 50 mg tablet RxNorm: 295698 1/2 Tablet(s) as needed 1 Tablet(s) PO Q HS 09/16/2016 01/13/2017 In active morphine 15 mg immed iate release tablet RxNorm: 050897 1 Tablet(s) PO Q6 PRN 09/16/2016 04/06/2017 In active baclofen 10 mg tablet RxNorm: 272989 1 Tablet(s) PO TID as needed 09/16/2016 06/12/2017 Inactive MS Contin 30 mg tabl et,extended release RxNorm: 817058 1 Tablet(s) PO Q12H 09/16/2016 04/06/2017 In active Remeron 15 mg tablet RxNorm: 599667 1 Tablet(s) PO QHS 08/19/2016 09/15/2016 Inactive levothyroxine 200 mc g tablet RxNorm: 242556 1 Tablet(s) PO daily 08/11/2016 10/03/2016 Inactive bupropion HCl XL 300 mg 24 hr tablet, extended release RxNorm: 272474 TAKE ONE TABLET BY MOUTH DAILY 08/11/2016 11/06/2016 Inactive Protonix 40 mg table t,delayed release RxNorm: 994174 1 Tablet(s) PO daily 06/17/2016 12/13/2016 In active bupropion HCl XL 300 mg 24 hr tablet, extended release RxNorm: 011650 1 Tablet(s) PO daily 05/12/2016 07/10/2016 Inactive bupropion HCl XL 300 mg 24 hr tablet, extended release RxNorm: 550932 1 Tablet(s) PO daily 05/12/2016 05/11/2016 Inactive Cialis 20 mg tablet RxNorm: 729862 1 Tablet(s) PO PRN 02/16/2016 No Stop Date Active not more than 1 tab in 24 hours morphine ER 10 mg ca psule,extended release pellets RxNorm: 995020 1 Tablet(s) PO Q6 as needed 02/16/2016 11/16/2016 Inactive clonazepam 1 mg tablet RxNorm: 232392 1/2 Tablet(s) PO BID 02/16/2016 09/15/2016 Inactive trazodone 50 mg tablet RxNorm: 412787 1/2 Tablet(s) as needed 1 Tablet(s) PO Q HS 02/16/2016 08/18/2016 In active trazodone 50 mg tablet RxNorm: 169407 1/2 Tablet(s) 1 Tablet(s) PO QHS 11/17/2015 02/15/2016 In active trazodone 50 mg tablet RxNorm: 705632 1 Tablet(s) PO QHS 10/19/2015 11/16/2015 Inactive levothyroxine 200 mc g tablet RxNorm: 237298 1 Tablet(s) PO daily 10/02/2015 08/10/2016 Inactive Wellbutrin XL 150 mg 24 hr tablet, extended release RxNorm: 537695 1 Tablet(s) PO daily 10/02/2015 05/11/2016 Inactive levothyroxine 200 mc g tablet RxNorm: 810865 1 Tablet(s) PO daily 09/30/2015 10/01/2015 Inactive Wellbutrin XL 150 mg 24 hr tablet, extended release RxNorm: 647105 1 Tablet(s) PO daily 09/30/2015 10/01/2015 Inactive trazodone 50 mg tablet RxNorm: 119949 1 Tablet(s) PO QHS 09/11/2015 10/10/2015 Inactive trazodone 50 mg tablet RxNorm: 387215 1 Tablet(s) PO QHS 09/11/2015 09/10/2015 Inactive Cymbalta 30 mg capsu le,delayed release RxNorm: 801494 1 Capsule(s) PO daily 09/07/2015 11/16/2015 In active Cymbalta 60 mg capsu le,delayed release RxNorm: 302206 1 Capsule(s) PO daily 08/31/2015 08/30/2015 In active Cymbalta 30 mg capsu le,delayed release RxNorm: 945925 1 Capsule(s) PO daily take with 60mg to make 90 mg daily 08/31/2015 09/06/2015 Inactive Cymbalta 30 mg capsu le,delayed release RxNorm: 139146 1 Capsule(s) PO daily take with 60mg to make 90 mg daily 08/31/2015 08/30/2015 Inactive Cymbalta 60 mg capsu le,delayed release RxNorm: 279474 1 Capsule(s) PO daily x 7 days and then increase to 90mg daily 08/31/2015 09/07/2015 Inactive levothyroxine 200 mc g tablet RxNorm: 123288 1 Tablet(s) PO daily 08/14/2015 09/29/2015 Inactive Wellbutrin XL 150 mg 24 hr tablet, extended release RxNorm: 816106 1 Tablet(s) PO daily 07/14/2015 09/29/2015 Inactive Cialis 20 mg tablet RxNorm: 152114 1 Tablet(s) PO PRN 07/02/2015 02/15/2016 Inactive not more than 1 tab in 24 hours liothyronine 5 mcg t ablet RxNorm: 788835 1 Tablet(s) PO daily 2015 05/29/2016 Inactive clonazepam 1 mg tablet RxNorm: 219033 1 Tablet(s) PO TID 2015 02/15/2016 Inactive minocycline 50 mg ta blet RxNorm: 686753 1 Tablet(s) PO daily 2015 05/11/2016 Inactive Wellbutrin XL 150 mg 24 hr tablet, extended release RxNorm: 265882 1 Tablet(s) PO daily 04/23/2015 07/13/2015 Inactive levothyroxine 200 mc g tablet RxNorm: 875666 1 Tablet(s) PO daily 04/23/2015 08/13/2015 Inactive diclofenac oral RxNorm: 3355 oral No Start Date Active Aleve oral RxNorm: 776394 oral No Start Date Active Tylenol 500 mg RxNorm: oral No Start Date Active morphine ER 15 mg ta blet,extended release RxNorm: 881616 oral No Start Date 11/16/2016 Inactive Trazadone 25 mg RxNorm: 2 PO daily No Start Date 09/11/2015 Inactive clonazepam 1 mg tablet RxNorm: 950436 1 Tablet(s) PO QHS No Start Date 06/04/2015 Inactive Wellbutrin XL 150 mg 24 hr tablet, extended release RxNorm: 556877 1 Tablet(s) PO daily No Start Date 04/22/2015 Inactive minocycline 50 mg ta blet RxNorm: 973110 1 Tablet(s) PO daily No Start Date 06/04/2015 Inactive methadone 5 mg tablet RxNorm: 283638 1 Tablet(s) PO Q8 No Start Date 02/15/2016 Inactive Protonix 40 mg table t,delayed release RxNorm: 211598 Tablet(s) PO daily No Start Date 06/16/2016 Inactive Opana ER 15 mg table t, crush resistant, extended release RxNorm: 377386 1 Tablet(s) PO Q12H No Start Date 06/08/2017 Inactive MS Contin 30 mg tabl et,extended release RxNorm: 195910 1 Tablet(s) PO Q12H No Start Date 02/15/2016 Inactive Opana ER 15 mg table t, crush resistant, extended release RxNorm: 101265 1 Tablet(s) PO BID No Start Date 09/15/2016 Inactive liothyronine 5 mcg t ablet RxNorm: 423268 1 Tablet(s) PO daily No Start Date 06/04/2015 Inactive Cialis 20 mg tablet RxNorm: 193041 1 Tablet(s) PO PRN No Start Date 07/01/2015 Inactive not more than 1 tab in 24 hours baclofen 10 mg tablet RxNorm: 272013 1 Tablet(s) PO TID as needed No Start Date 05/11/2016 Inactive morphine 15 mg immed iate release tablet RxNorm: 340078 1 Tablet(s) PO Q6 PRN as needed No Start Date 02/15/2016 Inactive levothyroxine 200 mc g tablet RxNorm: 800154 1 Tablet(s) PO daily No Start Date 04/22/2015 Inactive Opana ER 5 mg tablet , crush resistant, extended release RxNorm: 447327 1 Tablet(s) PO Q6 No Start Date [...] Ord40 Fe-%Sat 7.1 % 12/06/2017 Free T4 Gpk033 FREE T4 1.82 ng/dL 12/01/2017 Tsh Ord6 [...] 27.0 pg 12/01/2017 Cbc With Differential Ord2 Imperial% 10.6 % 12/01/2017 Cbc With Differential Ord2 Eos% 4.1 % 12/01/2017 Cbc With Differential Ord2 MCHC 32.4 pg 12/01/2017 Cbc With Differential Ord2 Baso% 1.0 % 12/01/2017 Cbc With Differential Ord2 PLT 345 K/ul 12/01/2017 Cbc With Differential Ord2 RDW 15.3 % 12/01/2017 Cbc With Differential Ord2 Neut ABS# 1.58 K/ul 12/01/2017 Cbc With Differential Ord2 Lymph ABS# 1.92 K/ul 12/01/2017 Cbc With Differential Ord2 Imperial ABS# 0.4 K/ul 12/01/2017 Cbc With Differential Ord2 Eos ABS# 0.2 K/ul 12/01/2017 Cbc With Differential Ord2 Baso ABS# 0.0 K/ul 12/01/2017 Comp Metabolic Amn199 NA 136 mEq/L 12/01/2017 Comp Metabolic Kku252 K 4.6 mEq/L 12/01/2017 Comp Metabolic Tev752 CL 102 mEq/L 12/01/2017 Comp Metabolic Fxf642 CO2 27.0 mEq/L 12/01/2017 Comp Metabolic Tiw525 AN ION GAP 12 12/01/2017 Comp Metabolic Rjp956 GL UCOSE 90 mg/dL 12/01/2017 Comp Metabolic Jdh740 Cr eat 0.7 mg/dL 12/01/2017 Comp Metabolic Arc350 eG FR 123 ml/min/1.73m2 03/2018 Comp Metabolic Puu380 BUN 4 mg/dL 12/01/2017 Comp Metabolic Fhw206 B/ C Ratio 5.6 Ratio 12/01/2017 Comp Metabolic Doe412 CA LCIUM 9.0 mg/dL 12/01/2017 Comp Metabolic Ogv118 AL K PHOS 67 U/L 12/01/2017 Comp Metabolic Suf946 T(SGOT) 30 U/L 12/01/2017 Comp Metabolic Wzo364 AL T(SGPT) 29 U/L 12/01/2017 Comp Metabolic Cuc338 BI LI T 0.3 mg/dL 12/01/2017 Comp Metabolic Uve589 AL BUMIN 4.1 g/dL 12/01/2017 Comp Metabolic Uoo744 TP RO 6.1 g/dL 12/01/2017 Comp Metabolic Cdz256 GL OB 2.0 g/dL 12/01/2017 Comp Metabolic Vws218 A/ G Ratio 2.0 Ratio 12/01/2017 Comp Metabolic Pjl393 Os mo 268 mOsmo 12/01/2017 Comp Metabolic Uwr774 NA 136 mEq/L 02/16/2016 Comp Metabolic Npl437 K 4.2 mEq/L 02/16/2016 Comp Metabolic Xmm750 CL 104 mEq/L 02/16/2016 Comp Metabolic Qfh232 CO2 20.0 mEq/L 02/16/2016 Comp Metabolic Vti967 AN ION GAP 16 02/16/2016 Comp Metabolic Adn395 GL UCOSE 71 mg/dL 02/16/2016 Comp Metabolic Guw778 Cr eat 0.8 mg/dL 02/16/2016 Comp Metabolic Ftd839 eG FR 113 ml/min/1.73m2 01/26 Comp Metabolic Csa083 BUN 7 mg/dL 02/16/2016 Comp Metabolic Mnw339 B/ C Ratio 9.1 Ratio 02/16/2016 Comp Metabolic Xns603 CA LCIUM 9.4 mg/dL 02/16/2016 Comp Metabolic Ntc531 AL K PHOS 57 U/L 02/16/2016 Comp Metabolic Ohr804 T(SGOT) 30 U/L 02/16/2016 Comp Metabolic Ylw764 AL T(SGPT) 27 U/L 02/16/2016 Comp Metabolic Ckg412 BI LI T 0.2 mg/dL 02/16/2016 Comp Metabolic Mag248 AL BUMIN 4.4 g/dL 02/16/2016 Comp Metabolic Zmv638 TP RO 6.5 g/dL 02/16/2016 Comp Metabolic Tte853 GL OB 2.1 g/dL 02/16/2016 Comp Metabolic Pah583 A/ G Ratio 2.1 Ratio 02/16/2016 Comp Metabolic Lod518 Os mo 268 mOsmo 02/16/2016 Free T4 Sgk007 FREE T4 1.20 ng/dL 02/16/2016 Cbc With [...] 30.2 pg 02/16/2016 Cbc With Differential Ord2 Imperial% 9.6 % 02/16/2016 Cbc With Differential Ord2 [...] 1.50 K/ul 02/16/2016 Cbc With Differential Ord2 Imperial ABS# 0.5 K/ul 02/16/2016 Cbc With Differential [...] 1: 132/72 Code: 8480-6 BMI: 33.4 Code: 94080-8 Heart Rate 1: 82 bpm Height: 5'6" SpO2: 97% Weight: 207 lbs 09/29/2017 Blood Pressure 1: 124/68 Code: 8480-6 BMI: 32.1 Code: 34139-7 Heart Rate 1: 77 bpm Height: 5'6" SpO2: 98% Weight: 199 lbs 08/11/2017 Blood Pressure 1: 154/82 Code: 8480-6 BMI: 31.6 Code: 10433-2 Heart Rate 1: 75 bpm Height: 5'6" SpO2: 98% Weight: 196 lbs 06/09/2017 Blood Pressure 1: 148/88 Code: 8480-6 BMI: 28.6 Code: 02820-5 Heart Rate 1: 88 bpm Height: 5'6" SpO2: 98% Weight: 177 lbs 04/07/2017 Blood Pressure 1: 140/84 Code: 8480-6 BMI: 30.3 Code: 41351-8 Heart Rate 1: 81 bpm Height: 5'6" SpO2: 99% Weight: 188 lbs 11/17/2016 Blood Pressure 1: 130/72 Code: 8480-6 Heart Rate 1: 63 bpm Height: SpO2: 93% Weight: 11/10/2016 Blood Pressure 1: 128/86 Code: 8480-6 BMI: 30.3 Code: 79092-9 Heart Rate 1: 84 bpm Height: 5'6" SpO2: 96% Weight: 188 lbs 10/14/2016 Heigh t: 5'6" 09/16/2016 Blood Pressure 1: 130/80 Code: 8480-6 BMI: 30.3 Code: 78133-6 Heart Rate 1: 67 bpm Height: 5'6" SpO2: 99% Weight: 188 lbs 08/19/2016 Blood Pressure 1: 110/62 Code: 8480-6 BMI: 29.9 Code: 98588-4 Heart Rate 1: 70 bpm Height: 5'6" SpO2: 97% Weight: 185 lbs 06/17/2016 Blood Pressure 1: 112/68 Code: 8480-6 BMI: 27.6 Code: 88893-2 Heart Rate 1: 61 bpm Height: 5'6" SpO2: 98% Weight: 171 lbs 05/12/2016 Blood Pressure 1: 130/76 Code: 8480-6 BMI: 29.7 Code: 71641-5 Heart Rate 1: 103 bpm Height: 5'6" SpO2: 98% Weight: 184 lbs 02/16/2016 Blood Pressure 1: 140/82 Code: 8480-6 BMI: 28.7 Code: 26818-8 Heart Rate 1: 66 bpm Height: 5'6" SpO2: 99% Weight: 178 lbs 11/17/2015 Blood Pressure 1: 120/74 Code: 8480-6 BMI: 29.4 Code: 03469-3 Heart Rate 1: 90 bpm Height: 5'6" SpO2: 94% Weight: 182 lbs 08/28/2015 Blood Pressure 1: 128/76 Code: 8480-6 BMI: 27.9 Code: 16640-4 Heart Rate 1: 80 bpm Height: 5'6" SpO2: 98% Weight: 173 lbs 05/28/2015 Blood Pressure 1: 122/70 Code: 8480-6 BMI: 27.0 Code: 11053-8 Heart Rate 1: 74 bpm Height: 5'6" SpO2: 98% Weight: 167 lbs 04/23/2015 Blood Pressure 1: 110/60 Code: 8480-6 BMI: 27.0 Code: 16836-5 Heart Rate 1: 68 bpm Height: 5'6" [...] Encounters Encounter Performer Loca tion Codes Date 16438 EST. PATIENT, LEVEL IV Diagnosis: Other specified hypothyroidism[ICD10: E03.8] Diagnosis: Chronic pain syndrome[ICD10: G89.4] Diagnosis: Major depressive disorder, recurrent, moderate[ICD10: F33.1] Denae Jacobo MD, [facility] CPT-4: 06619 12/01/2017 ([id number]) [id number] EST. P ATIENT, LEVEL IV Diagnosis: Chronic pain syndrome[ICD10: G89.4] Diagnosis: Alcohol dependence, uncomplicated[ICD10: F10.20] Diagnosis: Major depressive disorder, recurrent, moderate[ICD10: F33.1] Leydi Jacobo MD, [facility] CPT-4: 35844 09/29/2017 ([id number]) 12788 EST. P ATIENT, LEVEL IV Diagnosis: Chronic pain syndrome[ICD10: G89.4] Diagnosis: Alcohol dependence, uncomplicated[ICD10: F10.20] Diagnosis: Major depressive disorder, recurrent, moderate[ICD10: F33.1] Leydi Jacobo MD, [facility] CPT-4: 52837 08/11/2017 ([id number]) 07949 EST. [facility] Diagnosis: Chronic pain syndrome[ICD10: G89.4] Diagnosis: Major depressive disorder, recurrent, moderate[ICD10: F33.1] Leydi Jacobo MD, [facility] CPT-4: 26141 06/09/2017 ([id number]) 68837 EST. [facility] Diagnosis: Chronic pain syndrome[ICD10: G89.4] Diagnosis: Pain in left knee[ICD10: M25.562] Leydi Jacobo MD, [facility] CPT- 4: 94053 04/07/2017 [id number] EST. PATIENT, LEVEL II Diagnosis: Superficial foreign body of left upper arm, initial encounter[ICD10: S40.852A] Diagnosis: Cellulitis of left upper limb[ICD10: L03.114] Leydi Jacobo MD, [facility] CPT-4: 80759 11/17/2016 [id number] EST. PATIENT, LEVEL II Diagnosis: Cellulitis of left upper limb[ICD10: L03.114] Leydi Jacobo MD, [facility] CPT-4: 05130 11/10/2016 ([id number]) 31426 EST. [facility] Diagnosis: Chronic pain syndrome[ICD10: G89.4] Diagnosis: Major depressive disorder, recurrent, moderate[ICD10: F33.1] Leydi Jacobo MD, [facility] CPT-4: 98094 10/14/2016 [id number] EST. PATIENT, LEVEL IV Diagnosis: Psychophysiologic insomnia[ICD10: F51.04] Diagnosis: Major depressive disorder, recurrent, moderate[ICD10: F33.1] Diagnosis: Alcohol dependence, uncomplicated[ICD10: F10.20] Diagnosis: Chronic pain syndrome[ICD10: G89.4] Leydi Jacobo MD, [facility] CPT-4: 70304 09/16/2016 ([id number]) 33140 EST. P ATIENT, LEVEL III Diagnosis: Pain in left shoulder[ICD10: M25.512] Diagnosis: Major depressive disorder, recurrent, moderate[ICD10: F33.1] Diagnosis: Psychophysiologic insomnia[ICD10: F51.04] Leydi Jacobo MD, [facility] CPT-4: 40254 08/19/2016 ([id number]) 66782 EST. P ATIENT, LEVEL III Diagnosis: Gastro-esophageal reflux disease without esophagitis[ICD10: K21.9] Diagnosis: Hypothyroidism, unspecified[ICD10: E03.9] Leydi Jacobo MD, [facility] CPT-4: 12212 06/17/2016 ([id number]) 95673 EST. P ATIENT, LEVEL IV Diagnosis: Gastro-esophageal reflux disease without esophagitis[ICD10: K21.9] Diagnosis: Hypothyroidism, unspecified[ICD10: E03.9] Diagnosis: Major depressive disorder, recurrent, moderate[ICD10: F33.1] Leydi Jacobo MD, [facility] CPT-4: 94492 05/12/2016 ([id number]) 42063 EST. P ATIENT, LEVEL III Diagnosis: Cervicalgia[ICD10: M54.2] Diagnosis: Hypothyroidism, unspecified[ICD10: E03.9] Diagnosis: Other male erectile dysfunction[ICD10: N52.8] Leydi Jacobo MD, [facility] CPT-4: 14902 02/16/2016 ([id number]) 83391 EST. P ATIENT, LEVEL III Diagnosis: Lumbago with sciatica, unspecified side[ICD10: M54.40] Diagnosis: Other male erectile dysfunction[ICD10: N52.8] Leydi Jacobo MD, [facility] CPT-4: 67328 11/17/2015 ([id number]) 50754 EST. P ATIENT, LEVEL III Diagnosis: Lumbago with sciatica, unspecified side[ICD10: M54.40] Diagnosis: Hypothyroidism, unspecified[ICD10: E03.9] Diagnosis: Other male erectile dysfunction[ICD10: N52.8] Leydi Jacobo MD, [facility] CPT-4: 43670 08/28/2015 ([id number]) 98332 EST. P ATIENT, LEVEL III Diagnosis: Back pain, chronic[ICD9: 724.5] Diagnosis: Depression[ICD9: 311] Diagnosis: Hypothyroid[ICD9: 244.9] Diagnosis: Bilateral calf pain[ICD9: 729.5] [facility] CPT-4: 13839 05/28/2015 ([id number]) OFFICE VISI T, NEW - LEVEL 4 Diagnosis: Back pain, chronic[ICD9: 724.5] Diagnosis: Depression[ICD9: 311] Diagnosis: Hypothyroid[ICD9: 244.9] [facility] CPT-4: 69254 04/23/2015 Plan of Care Planned Activity Notes C odes Status Date Patient Education: Patient Medication Summary Completed 01/04/2018 Care Plan: Cbc With Differential Pending 01/04/2018 Patient Education: Patient Medication Summary Completed 12/06/2017 Care Plan: Iron Pending 12/06/2017 Appointment: Denae Martínez WPtel: [address] [place], [place] [phone] (30 min) Complex 12/01/2017 Patient Education: Patient Medication Summary Completed 12/01/2017 Appointment: Leydi Hightower WPtel: [address] [place], [place] [phone] (30 min) Complex 09/29/2017 Patient Education: Patient Medication Summary Completed 09/29/2017 Appointment: Leydi Hightoewr WPtel: [address] [place], [place] [phone] (30 min) Complex 08/11/2017 Patient Education: Patient Medication Summary Completed 08/11/2017 Patient Education: Obesity Completed 08/11/2017 Appointment: Leydi Hightower WPtel: [address] [place], [place] [phone] (30 min) Complex 06/09/2017 Patient Education: Patient Medication Summary Completed 06/09/2017 Patient Education: Obesity Completed 06/09/2017 Patient Education: Patient Medication Summary Completed 04/07/2017 Patient Education: Obesity Completed 04/07/2017 Appointment: [facility]ightower [facility] [phone] [facility] [phone] ([place] min) Complex 11/17/2016 Patient Education: Patient Medication Summary Completed 11/17/2016 Appointment: Leydi Hightower WPtel: [phone] (30 min) Complex 11/10/2016 Patient Education: Patient Medication Summary Completed 11/10/2016 Appointment: Leydi Hightower WPtel: [address] [place], [place] [id number] [place] (30 min) Complex 10/14/2016 Patient Education: Patient Medication Summary Completed 10/14/2016 Appointment: Leydi Hightower WPtel: [phone] (30 min) Complex 09/16/2016 Patient Education: Patient Medication Summary Completed 09/16/2016 Appointment: Leydi Hightower WPtel: [phone] (30 min) Complex 08/19/2016 Patient Education: Patient Medication Summary Completed 08/19/2016 Patient Education: Obesity Completed 08/19/2016 Patient Education: Patient Medication Summary Completed 06/17/2016 Patient Education: Obesity Completed 06/17/2016 Appointment: Leydi Hightower WPtel: [facility] [phone] [place] ([place] min[place] Complex 06/09/2016 Appointment: Leydi Hightower WPtel: [address] [place], [place] [phone] [place] (30 min) Complex 05/12/2016 Patient Education: [...] Summary Completed 08/28/2015 Appointment: Leydi Hightower WPtel: [address] [place], [place] [phone] (30 min) [facility] 05/28/2015 Patient Education: Patient Medication Summary Completed 05/28/2015 Patient Education: Patient Medication Summary Completed 04/23/2015 Patient Education: [facility] - Saving AutoInj - 18-64 - Dynamic Portal ID Completed 04/23/2015 Patient Education: [facility] - Saving AutoInj - Levothyroxine - 18-64 - Dynamic Portal ID Completed 04/23/2015 Care Plan: COMPLETE CBC AUTOMATED LOINC : 60407-4 Ordered 04/23/2015 Instructions No Instructions
--- OUTSIDE RECORDS SUMMARY | 2020-03-17 15:18 | XMS REPORT | CCD ---
Author Author Thai Castillo Organization Sara Jacobo MD, [facility] Address [address] [place] [address] Phone Care Team Providers Care Quality Control Tester Name Role Phone PP Unavailable CCM Unavailable Summary Purpose Interface Exchange Insurance Providers Payer name Policy type / Coverage type Covered libertarian ID Effective Begin Date Effective End Date WPS Medicare Part B Medicare Part B [id number] Unknown Unknown [facility] icare Part B [id number] Unknown Unk nown Family history Father Diagnosis Age At Onset Colon cancer Unknown Social History Social History Element Codes Description Effective Dates Marital status Unknown D ivorced 04/23/[address]: 675208328 Never smoker 04/23/[address]: 832385 Currently drinks alcohol occasionally drinks 04/23/2015 Allergies, [...] mg 24 hr tablet, extended release RxNorm: 773608 TAKE ONE TABLET BY MOUTH DAILY 12/29/2017 06/26/2018 Active Tamiflu 75 mg capsule RxNorm: 988644 1 Capsule(s) PO BID 12/27/2017 12/31/2017 Active Tamiflu 75 mg capsule RxNorm: 559063 1 Capsule(s) PO BID 12/27/2017 12/26/2017 Inactive tizanidine 4 mg tablet RxNorm: 767879 1 Tablet(s) PO TID as needed 12/25/2017 03/24/2018 Active levothyroxine 175 mc g tablet RxNorm: 680306 1 Tablet(s) PO daily 12/14/2017 04/12/2018 Active levothyroxine 175 mc g tablet RxNorm: 326116 1 Tablet(s) PO daily 12/14/2017 12/13/2017 Inactive baclofen 10 mg tablet RxNorm: 810544 Tablet(s) TAKE ONE TABLET BY MOUTH THREE TIMES A DAY NEEDED 12/13/2017 01/11/2018 Active baclofen 10 mg tablet RxNorm: 858654 TAKE ONE TABLET BY MOUTH THREE TIMES A D AY NEEDED 12/13/2017 12/12/2017 Inactive morphine 30 mg table t, crush resistant, extended release RxNorm: 1945683 1 Tablet(s) PO BID 12/12/2017 02/09/2018 Active clonazepam 1 mg tablet RxNorm: 252411 1/2 Tablet(s) PO daily 12/01/2017 08/27/2018 Active trazodone 50 mg tablet RxNorm: 500775 1/2 to 1 Tablet(s) QHS as needed 12/01/2017 03/30/2018 Ac tive Opana ER 15 mg table t, crush resistant, extended release RxNorm: 675012 1 Tablet(s) PO Q12H 12/01/2017 02/28/2018 Active oxymorphone 5 mg tablet RxNorm: 338358 1 Tablet(s) PO Q6 PRN 12/01/2017 02/28/2018 Active Remeron 15 mg tablet RxNorm: 600088 Tablet(s) TAKE ONE TABLET BY MOUTH EVERY NIGHT AT BEDTIME 12/01/2017 02/28/2018 Active trazodone 50 mg tablet RxNorm: 100456 1/2 Tablet(s) as needed 1 Tablet(s) PO Q HS 12/01/2017 11/30/2017 In active clonazepam 1 mg tablet RxNorm: 067867 1/2 Tablet(s) PO daily 11/30/2017 11/30/2017 Inactive Remeron 15 mg tablet RxNorm: 751271 TAKE ONE TABLET BY MOUTH EVERY NIGHT AT BEDTIME 11/29/2017 11/30/2017 Inactive levothyroxine 200 mc g tablet RxNorm: 160168 TAKE ONE TABLET BY MO UTH DAILY 11/15/2017 12/13/2017 In active diclofenac sodium 75 mg tablet,delayed release RxNorm: 541459 1 Tablet(s) PO BID 11/07/2017 05/05/2018 Ac tive baclofen 10 mg tablet RxNorm: 864030 TAKE ONE TABLET BY MOUTH THREE TIMES A D AY NEEDED 11/07/2017 12/06/2017 Inactive liothyronine 5 mcg t ablet RxNorm: 221321 TAKE ONE TABLET BY [facility] DAILY 10/27/2017 07/23/2018 Ac tive tizanidine 4 mg tablet RxNorm: 382002 1 Tablet(s) PO TID as needed 10/18/2017 12/16/2017 Inactive oxymorphone 5 mg tablet RxNorm: 918134 1 Tablet(s) PO Q6 PRN 09/29/2017 11/27/2017 Inactive morphine 30 mg table t, crush resistant, extended release RxNorm: 4973924 1 Tablet(s) PO BID 09/29/2017 11/28/2017 Inactive baclofen 10 mg tablet RxNorm: 585266 1 Tablet(s) PO TID as needed 09/11/2017 10/10/2017 Inactive baclofen 10 mg tablet RxNorm: 219186 1 Tablet(s) PO TID as needed 08/11/2017 09/09/2017 Inactive Opana ER 15 mg table t, crush resistant, extended release RxNorm: 941994 1 Tablet(s) PO Q12H 08/11/2017 09/28/2017 Inactive Remeron 15 mg tablet RxNorm: 594702 TAKE ONE TABLET BY MOUTH EVERY NIGHT AT BEDTIME 08/02/2017 10/30/2017 Inactive oxymorphone 5 mg tablet RxNorm: 479693 1 Tablet(s) PO Q6 PRN 08/02/2017 09/28/2017 Inactive Opana ER 5 mg tablet , crush resistant, extended release RxNorm: 810235 1 Tablet(s) PO Q6 PRN 08/01/2017 08/10/2017 Inactive Protonix 40 mg table t,delayed release RxNorm: 989580 TAKE ONE TABLET BY [facility] DAILY 06/26/2017 10/23/2017 In active Protonix 40 mg table t,delayed release RxNorm: 428364 TAKE ONE TABLET BY [facility] DAILY 06/26/2017 06/25/2017 In active bupropion HCl XL 300 mg 24 hr tablet, extended release RxNorm: 296328 TAKE ONE TABLET BY MOUTH DAILY 06/13/2017 12/09/2017 Inactive tizanidine 4 mg tablet RxNorm: 511030 1 Tablet(s) PO TID as needed 06/13/2017 06/12/2017 Inactive tizanidine 4 mg tablet RxNorm: 021389 1 Tablet(s) PO TID as needed 06/13/2017 09/10/2017 Inactive baclofen 10 mg tablet RxNorm: 561309 1 Tablet(s) PO TID as needed 06/13/2017 07/12/2017 Inactive Opana ER 15 mg table t, crush resistant, extended release RxNorm: 092524 1 Tablet(s) PO Q12H 06/09/2017 08/07/2017 Inactive Opana ER 5 mg tablet , crush resistant, extended release RxNorm: 765594 1 Tablet(s) PO Q6 PRN 06/09/2017 07/31/2017 Inactive diclofenac sodium 75 mg tablet,delayed release RxNorm: 307302 1 Tablet(s) PO BID 06/09/2017 09/06/2017 In active clonazepam 1 mg tablet RxNorm: 740333 1/2 Tablet(s) PO daily 05/24/2017 11/18/2017 Inactive bupropion HCl XL 300 mg 24 hr tablet, extended release RxNorm: 691103 TAKE ONE TABLET BY MOUTH DAILY 03/16/2017 06/12/2017 Inactive clonazepam 1 mg tablet RxNorm: 949764 1/2 Tablet(s) PO daily 02/22/2017 05/18/2017 Inactive Remeron 15 mg tablet RxNorm: 712381 TAKE ONE TABLET BY MOUTH EVERY NIGHT AT BEDTIME 02/06/2017 2017 Inactive Protonix 40 mg table t,delayed release RxNorm: 026433 TAKE ONE TABLET BY MO UTH DAILY 01/26/2017 06/24/2017 In active mupirocin 2 % topica l ointment RxNorm: 672518 1 Application TOP BID 01/12/2017 01/18/2017 Inactive Bactrim DS 800 mg-16 0 mg tablet RxNorm: 767090 1 Tablet(s) PO BID 11/17/2016 11/23/2016 Inactive mupirocin 2 % topica l ointment RxNorm: 493940 1 Application TOP BID 11/10/2016 11/16/2016 Inactive Bactrim DS 800 mg-16 0 mg tablet RxNorm: 985596 1 Tablet(s) PO BID 11/10/2016 11/16/2016 Inactive bupropion HCl XL 300 mg 24 hr tablet, extended release RxNorm: 533853 TAKE ONE TABLET BY MOUTH DAILY 11/07/2016 03/06/2017 Inactive liothyronine 5 mcg t ablet RxNorm: 132335 1 Tablet(s) PO daily 11/01/2016 10/26/2017 Inactive levothyroxine 200 mc g tablet RxNorm: 766226 1 Tablet(s) PO daily 10/04/2016 09/28/2017 Inactive clonazepam 1 mg tablet RxNorm: 845099 1/2 Tablet(s) PO daily 09/21/2016 03/18/2017 Inactive clonazepam 1 mg tablet RxNorm: 166477 1/2 Tablet(s) PO daily 09/16/2016 09/20/2016 Inactive Abilify 2 mg tablet RxNorm: 361980 1 Tablet(s) PO daily 09/16/2016 10/13/2016 Inactive trazodone 50 mg tablet RxNorm: 927931 1/2 Tablet(s) as needed 1 Tablet(s) PO Q HS 09/16/2016 01/13/2017 In active morphine 15 mg immed iate release tablet RxNorm: 938558 1 Tablet(s) PO Q6 PRN 09/16/2016 04/06/2017 In active baclofen 10 mg tablet RxNorm: 808097 1 Tablet(s) PO TID as needed 09/16/2016 06/12/2017 Inactive MS Contin 30 mg tabl et,extended release RxNorm: 592484 1 Tablet(s) PO Q12H 09/16/2016 04/06/2017 In active Remeron 15 mg tablet RxNorm: 739879 1 Tablet(s) PO QHS 08/19/2016 09/15/2016 Inactive levothyroxine 200 mc g tablet RxNorm: 081002 1 Tablet(s) PO daily 08/11/2016 10/03/2016 Inactive bupropion HCl XL 300 mg 24 hr tablet, extended release RxNorm: 370924 TAKE ONE TABLET BY MOUTH DAILY 08/11/2016 11/06/2016 Inactive Protonix 40 mg table t,delayed release RxNorm: 595813 1 Tablet(s) PO daily 06/17/2016 12/13/2016 In active bupropion HCl XL 300 mg 24 hr tablet, extended release RxNorm: 399644 1 Tablet(s) PO daily 05/12/2016 07/10/2016 Inactive bupropion HCl XL 300 mg 24 hr tablet, extended release RxNorm: 083055 1 Tablet(s) PO daily 05/12/2016 05/11/2016 Inactive Cialis 20 mg tablet RxNorm: 518114 1 Tablet(s) PO PRN 02/16/2016 No Stop Date Active not more than 1 tab in 24 hours morphine ER 10 mg ca psule,extended release pellets RxNorm: 961890 1 Tablet(s) PO Q6 as needed 02/16/2016 11/16/2016 Inactive clonazepam 1 mg tablet RxNorm: 143167 1/2 Tablet(s) PO BID 02/16/2016 09/15/2016 Inactive trazodone 50 mg tablet RxNorm: 379282 1/2 Tablet(s) as needed 1 Tablet(s) PO Q HS 02/16/2016 08/18/2016 In active trazodone 50 mg tablet RxNorm: 110482 1/2 Tablet(s) 1 Tablet(s) PO QHS 11/17/2015 02/15/2016 In active trazodone 50 mg tablet RxNorm: 353648 1 Tablet(s) PO QHS 10/19/2015 11/16/2015 Inactive levothyroxine 200 mc g tablet RxNorm: 568394 1 Tablet(s) PO daily 10/02/2015 08/10/2016 Inactive Wellbutrin XL 150 mg 24 hr tablet, extended release RxNorm: 135884 1 Tablet(s) PO daily 10/02/2015 05/11/2016 Inactive levothyroxine 200 mc g tablet RxNorm: 332934 1 Tablet(s) PO daily 09/30/2015 10/01/2015 Inactive Wellbutrin XL 150 mg 24 hr tablet, extended release RxNorm: 046102 1 Tablet(s) PO daily 09/30/2015 10/01/2015 Inactive trazodone 50 mg tablet RxNorm: 590057 1 Tablet(s) PO QHS 09/11/2015 10/10/2015 Inactive trazodone 50 mg tablet RxNorm: 294642 1 Tablet(s) PO QHS 09/11/2015 09/10/2015 Inactive Cymbalta 30 mg capsu le,delayed release RxNorm: 461024 1 Capsule(s) PO daily 09/07/2015 11/16/2015 In active Cymbalta 60 mg capsu le,delayed release RxNorm: 864863 1 Capsule(s) PO daily 08/31/2015 08/30/2015 In active Cymbalta 30 mg capsu le,delayed release RxNorm: 621531 1 Capsule(s) PO daily take with 60mg to make 90 mg daily 08/31/2015 09/06/2015 Inactive Cymbalta 30 mg capsu le,delayed release RxNorm: 978037 1 Capsule(s) PO daily take with 60mg to make 90 mg daily 08/31/2015 08/30/2015 Inactive Cymbalta 60 mg capsu le,delayed release RxNorm: 673871 1 Capsule(s) PO daily x 7 days and then increase to 90mg daily 08/31/2015 09/07/2015 Inactive levothyroxine 200 mc g tablet RxNorm: 634452 1 Tablet(s) PO daily 08/14/2015 09/29/2015 Inactive Wellbutrin XL 150 mg 24 hr tablet, extended release RxNorm: 273358 1 Tablet(s) PO daily 07/14/2015 09/29/2015 Inactive Cialis 20 mg tablet RxNorm: 946284 1 Tablet(s) PO PRN 07/02/2015 02/15/2016 Inactive not more than 1 tab in 24 hours liothyronine 5 mcg t ablet RxNorm: 007176 1 Tablet(s) PO daily 2015 05/29/2016 Inactive clonazepam 1 mg tablet RxNorm: 553227 1 Tablet(s) PO TID 2015 02/15/2016 Inactive minocycline 50 mg ta blet RxNorm: 113811 1 Tablet(s) PO daily 2015 05/11/2016 Inactive Wellbutrin XL 150 mg 24 hr tablet, extended release RxNorm: 924429 1 Tablet(s) PO daily 04/23/2015 07/13/2015 Inactive levothyroxine 200 mc g tablet RxNorm: 198633 1 Tablet(s) PO daily 04/23/2015 08/13/2015 Inactive diclofenac oral RxNorm: 3355 oral No Start Date Active Aleve oral RxNorm: 279557 oral No Start Date Active Tylenol 500 mg RxNorm: oral No Start Date Active morphine ER 15 mg ta blet,extended release RxNorm: 940764 oral No Start Date 11/16/2016 Inactive Trazadone 25 mg RxNorm: 2 PO daily No Start Date 09/11/2015 Inactive clonazepam 1 mg tablet RxNorm: 790313 1 Tablet(s) PO QHS No Start Date 06/04/2015 Inactive Wellbutrin XL 150 mg 24 hr tablet, extended release RxNorm: 383366 1 Tablet(s) PO daily No Start Date 04/22/2015 Inactive minocycline 50 mg ta blet RxNorm: 207670 1 Tablet(s) PO daily No Start Date 06/04/2015 Inactive methadone 5 mg tablet RxNorm: 008256 1 Tablet(s) PO Q8 No Start Date 02/15/2016 Inactive Protonix 40 mg table t,delayed release RxNorm: 948570 Tablet(s) PO daily No Start Date 06/16/2016 Inactive Opana ER 15 mg table t, crush resistant, extended release RxNorm: 197001 1 Tablet(s) PO Q12H No Start Date 06/08/2017 Inactive MS Contin 30 mg tabl et,extended release RxNorm: 813134 1 Tablet(s) PO Q12H No Start Date 02/15/2016 Inactive Opana ER 15 mg table t, crush resistant, extended release RxNorm: 335397 1 Tablet(s) PO BID No Start Date 09/15/2016 Inactive liothyronine 5 mcg t ablet RxNorm: 481637 1 Tablet(s) PO daily No Start Date 06/04/2015 Inactive Cialis 20 mg tablet RxNorm: 862306 1 Tablet(s) PO PRN No Start Date 07/01/2015 Inactive not more than 1 tab in 24 hours baclofen 10 mg tablet RxNorm: 632027 1 Tablet(s) PO TID as needed No Start Date 05/11/2016 Inactive morphine 15 mg immed iate release tablet RxNorm: 910318 1 Tablet(s) PO Q6 PRN as needed No Start Date 02/15/2016 Inactive levothyroxine 200 mc g tablet RxNorm: 076462 1 Tablet(s) PO daily No Start Date 04/22/2015 Inactive Opana ER 5 mg tablet , crush resistant, extended release RxNorm: 743726 1 Tablet(s) PO Q6 No Start Date [...] Ord40 Fe-%Sat 7.1 % 12/06/2017 Free T4 Gcd249 FREE T4 1.82 ng/dL 12/01/2017 Tsh Ord6 [...] 27.0 pg 12/01/2017 Cbc With Differential Ord2 [place]% 10.6 % 12/01/2017 Cbc With Differential Ord2 [...] 1.92 K/ul 12/01/2017 Cbc With Differential Ord2 [place] ABS# 0.4 K/ul 12/01/2017 Cbc With Differential Ord2 Eos ABS# 0.2 K/ul 12/01/2017 Cbc With Differential Ord2 Baso ABS# 0.0 K/ul 12/01/2017 Comp Metabolic Fgh419 NA 136 mEq/L 12/01/2017 Comp Metabolic Rwm459 K 4.6 mEq/L 12/01/2017 Comp Metabolic Nru870 CL 102 mEq/L 12/01/2017 Comp Metabolic Ood503 CO2 27.0 mEq/L 12/01/2017 Comp Metabolic Qmg741 AN ION GAP 12 12/01/2017 Comp Metabolic Yae162 GL UCOSE 90 mg/dL 12/01/2017 Comp Metabolic Tqr690 Cr eat 0.7 mg/dL 12/01/2017 Comp Metabolic Pgt653 eG FR 123 ml/min/1.73m2 03/2018 Comp Metabolic Btm170 BUN 4 mg/dL 12/01/2017 Comp Metabolic Ssq013 B/ C Ratio 5.6 Ratio 12/01/2017 Comp Metabolic Rdm585 CA LCIUM 9.0 mg/dL 12/01/2017 Comp Metabolic Zyc859 AL K PHOS 67 U/L 12/01/2017 Comp Metabolic Fho607 T(SGOT) 30 U/L 12/01/2017 Comp Metabolic Mrg039 AL T(SGPT) 29 U/L 12/01/2017 Comp Metabolic Hpu521 BI LI T 0.3 mg/dL 12/01/2017 Comp Metabolic Rop299 AL BUMIN 4.1 g/dL 12/01/2017 Comp Metabolic Ogj139 TP RO 6.1 g/dL 12/01/2017 Comp Metabolic Hee831 GL OB 2.0 g/dL 12/01/2017 Comp Metabolic Lqg223 A/ G Ratio 2.0 Ratio 12/01/2017 Comp Metabolic Pzr070 Os mo 268 mOsmo 12/01/2017 Comp Metabolic Bsx661 NA 136 mEq/L 02/16/2016 Comp Metabolic Isw656 K 4.2 mEq/L 02/16/2016 Comp Metabolic Bne081 CL 104 mEq/L 02/16/2016 Comp Metabolic Fcf356 CO2 20.0 mEq/L 02/16/2016 Comp Metabolic Jki987 AN ION GAP 16 02/16/2016 Comp Metabolic Prg679 GL UCOSE 71 mg/dL 02/16/2016 Comp Metabolic Eng588 Cr eat 0.8 mg/dL 02/16/2016 Comp Metabolic Avs105 eG FR 113 ml/min/1.73m2 01/26 Comp Metabolic Rnv365 BUN 7 mg/dL 02/16/2016 Comp Metabolic Qyg648 B/ C Ratio 9.1 Ratio 02/16/2016 Comp Metabolic Vya381 CA LCIUM 9.4 mg/dL 02/16/2016 Comp Metabolic Zfq559 AL K PHOS 57 U/L 02/16/2016 Comp Metabolic Ynj428 T(SGOT) 30 U/L 02/16/2016 Comp Metabolic Wqx528 AL T(SGPT) 27 U/L 02/16/2016 Comp Metabolic Seo349 BI LI T 0.2 mg/dL 02/16/2016 Comp Metabolic Xrh093 AL BUMIN 4.4 g/dL 02/16/2016 Comp Metabolic Mgo685 TP RO 6.5 g/dL 02/16/2016 Comp Metabolic Gsx429 GL OB 2.1 g/dL 02/16/2016 Comp Metabolic Vtb593 A/ G Ratio 2.1 Ratio 02/16/2016 Comp Metabolic Dkq480 Os mo 268 mOsmo 02/16/2016 Free T4 Wre270 FREE T4 1.20 ng/dL 02/16/2016 Cbc With [...] 90.6 fl 02/16/2016 Cbc With Differential Ord2 [place]% 9.6 % 02/16/2016 Cbc With Differential Ord2 [...] 1.50 K/ul 02/16/2016 Cbc With Differential Ord2 [place] ABS# 0.5 K/ul 02/16/2016 Cbc With Differential [...] 1: 132/72 Code: 8480-6 BMI: 33.4 Code: 74283-5 Heart Rate 1: 82 bpm Height: 5'6" SpO2: 97% Weight: 207 lbs 09/29/2017 Blood Pressure 1: 124/68 Code: 8480-6 BMI: 32.1 Code: 81576-4 Heart Rate 1: 77 bpm Height: 5'6" SpO2: 98% Weight: 199 lbs 08/11/2017 Blood Pressure 1: 154/82 Code: 8480-6 BMI: 31.6 Code: 04356-9 Heart Rate 1: 75 bpm Height: 5'6" SpO2: 98% Weight: 196 lbs 06/09/2017 Blood Pressure 1: 148/88 Code: 8480-6 BMI: 28.6 Code: 88574-4 Heart Rate 1: 88 bpm Height: 5'6" SpO2: 98% Weight: 177 lbs 04/07/2017 Blood Pressure 1: 140/84 Code: 8480-6 BMI: 30.3 Code: 83106-0 Heart Rate 1: 81 bpm Height: 5'6" SpO2: 99% Weight: 188 lbs 11/17/2016 Blood Pressure 1: 130/72 Code: 8480-6 Heart Rate 1: 63 bpm Height: SpO2: 93% Weight: 11/10/2016 Blood Pressure 1: 128/86 Code: 8480-6 BMI: 30.3 Code: 36566-6 Heart Rate 1: 84 bpm Height: 5'6" SpO2: 96% Weight: 188 lbs 10/14/2016 Heigh t: 5'6" 09/16/2016 Blood Pressure 1: 130/80 Code: 8480-6 BMI: 30.3 Code: 83375-5 Heart Rate 1: 67 bpm Height: 5'6" SpO2: 99% Weight: 188 lbs 08/19/2016 Blood Pressure 1: 110/62 Code: 8480-6 BMI: 29.9 Code: 91186-9 Heart Rate 1: 70 bpm Height: 5'6" SpO2: 97% Weight: 185 lbs 06/17/2016 Blood Pressure 1: 112/68 Code: 8480-6 BMI: 27.6 Code: 10255-2 Heart Rate 1: 61 bpm Height: 5'6" SpO2: 98% Weight: 171 lbs 05/12/2016 Blood Pressure 1: 130/76 Code: 8480-6 BMI: 29.7 Code: 74347-3 Heart Rate 1: 103 bpm Height: 5'6" SpO2: 98% Weight: 184 lbs 02/16/2016 Blood Pressure 1: 140/82 Code: 8480-6 BMI: 28.7 Code: 14289-5 Heart Rate 1: 66 bpm Height: 5'6" SpO2: 99% Weight: 178 lbs 11/17/2015 Blood Pressure 1: 120/74 Code: 8480-6 BMI: 29.4 Code: 27702-1 Heart Rate 1: 90 bpm Height: 5'6" SpO2: 94% Weight: 182 lbs 08/28/2015 Blood Pressure 1: 128/76 Code: 8480-6 BMI: 27.9 Code: 44643-0 Heart Rate 1: 80 bpm Height: 5'6" SpO2: 98% Weight: 173 lbs 05/28/2015 Blood Pressure 1: 122/70 Code: 8480-6 BMI: 27.0 Code: 61214-5 Heart Rate 1: 74 bpm Height: 5'6" SpO2: 98% Weight: 167 lbs 04/23/2015 Blood Pressure 1: 110/60 Code: 8480-6 BMI: 27.0 Code: 17563-3 Heart Rate 1: 68 bpm Height: 5'6" [...] Encounters Encounter Performer Loca tion Codes Date [id number] EST. PATIENT, LEVEL IV Diagnosis: Other specified hypothyroidism[ICD10: E03.8] Diagnosis: Chronic pain syndrome[ICD10: G89.4] Diagnosis: Major depressive disorder, recurrent, moderate[ICD10: F33.1] [facility] CPT-4: 25160 12/01/2017 ([id number]) 82868 EST. P [facility], LEVEL IV Diagnosis: Chronic pain syndrome[ICD10: G89.4] Diagnosis: Alcohol dependence, uncomplicated[ICD10: F10.20] Diagnosis: Major depressive disorder, recurrent, moderate[ICD10: F33.1] [facility] CPT-4: 23326 09/29/2017 ([id number] 85197 EST. P [facility], LEVEL IV Diagnosis: Chronic pain syndrome[ICD10: G89.4] Diagnosis: Alcohol dependence, uncomplicated[ICD10: F10.20] Diagnosis: Major depressive disorder, recurrent, moderate[ICD10: F33.1] [facility] CPT-4: 45352 08/11/2017 ([id number]) 46921 EST. P [facility], LEVEL III Diagnosis: Chronic pain syndrome[ICD10: G89.4] Diagnosis: Major depressive disorder, recurrent, moderate[ICD10: F33.1] Leydi Jacobo MD, [facility] CPT-4: 38410 06/09/2017 ([id number]) 52116 EST. P ATIENT, LEVEL III Diagnosis: Chronic pain syndrome[ICD10: G89.4] Diagnosis: Pain in left knee[ICD10: M25.562] Leydi Jacobo MD, [facility] CPT- 4: 97252 04/07/2017 [id number] EST. PATIENT, LEVEL II Diagnosis: Superficial foreign body of left upper arm, initial encounter[ICD10: S40.852A] Diagnosis: Cellulitis of left upper limb[ICD10: L03.114] Leydi Jacobo MD, [facility] CPT-4: 89219 11/17/2016 [id number] EST. PATIENT, LEVEL II Diagnosis: Cellulitis of left upper limb[ICD10: L03.114] Leydi Jacobo MD, [facility] CPT-4: 61595 11/10/2016 ([id number]) 11465 EST. P [facility], LEVEL III Diagnosis: Chronic pain syndrome[ICD10: G89.4] Diagnosis: Major depressive disorder, recurrent, moderate[ICD10: F33.1] Leydi aJcobo MD, [facility] CPT-4: 16469 10/14/2016 04595 EST. PATIENT, LEVEL IV Diagnosis: Psychophysiologic insomnia[ICD10: F51.04] Diagnosis: Major depressive disorder, recurrent, moderate[ICD10: F33.1] Diagnosis: Alcohol dependence, uncomplicated[ICD10: F10.20] Diagnosis: Chronic pain syndrome[ICD10: G89.4] Leydi Jacobo MD, [facility] CPT-4: 77176 09/16/2016 ([id number]) 56974 EST. P ATIENT, LEVEL III Diagnosis: Pain in left shoulder[ICD10: M25.512] Diagnosis: Major depressive disorder, recurrent, moderate[ICD10: F33.1] Diagnosis: Psychophysiologic insomnia[ICD10: F51.04] Leydi Jacobo MD, [facility] CPT-4: 36820 08/19/2016 ([id number]) 02699 EST. P ATIENT, LEVEL III Diagnosis: Gastro-esophageal reflux disease without esophagitis[ICD10: K21.9] Diagnosis: Hypothyroidism, unspecified[ICD10: E03.9] Leydi Jacobo MD, [facility] CPT-4: 21155 06/17/2016 ([id number]) 65170 EST. P ATIENT, LEVEL IV Diagnosis: Gastro-esophageal reflux disease without esophagitis[ICD10: K21.9] Diagnosis: Hypothyroidism, unspecified[ICD10: E03.9] Diagnosis: Major depressive disorder, recurrent, moderate[ICD10: F33.1] Leydi Jacobo MD, [facility] CPT-4: 04065 05/12/2016 ([id number]) 88186 EST. P ATIENT, LEVEL III Diagnosis: Cervicalgia[ICD10: M54.2] Diagnosis: Hypothyroidism, unspecified[ICD10: E03.9] Diagnosis: Other male erectile dysfunction[ICD10: N52.8] Leydi Jacobo MD, [facility] CPT-4: 79993 02/16/2016 ([id number]) 01175 EST. P ATIENT, LEVEL III Diagnosis: Lumbago with sciatica, unspecified side[ICD10: M54.40] Diagnosis: Other male erectile dysfunction[ICD10: N52.8] Leydi Jacobo MD, [facility] CPT-4: 11799 11/17/2015 ([id number]) 45910 EST. P ATIENT, LEVEL III Diagnosis: Lumbago with sciatica, unspecified side[ICD10: M54.40] Diagnosis: Hypothyroidism, unspecified[ICD10: E03.9] Diagnosis: Other male erectile dysfunction[ICD10: N52.8] Leydi Jacobo MD, [facility] CPT-4: 11245 08/28/2015 ([id number]) 29762 EST. P ATIENT, LEVEL III Diagnosis: Back pain, chronic[ICD9: 724.5] Diagnosis: Depression[ICD9: 311] Diagnosis: Hypothyroid[ICD9: 244.9] Diagnosis: Bilateral calf pain[ICD9: 729.5] [facility] CPT-4: 98233 05/28/2015 ([id number]) OFFICE VISI T, [facility] - LEVEL 4 Diagnosis: Back pain, chronic[ICD9: 724.5] Diagnosis: Depression[ICD9: 311] Diagnosis: Hypothyroid[ICD9: 244.9] [facility] CPT-4: 66111 04/23/2015 Plan of Care Planned Activity Notes [...] of control. 12/01/2017 Appointment: Denae Martínez WPtel: [phone] (30 min) Complex 12/01/2017 Patient Education: Patient [...] outpatient treatment 09/29/2017 Appointment: Leydi Hightower WPtel: [phone] [place] (30 min) Complex 09/29/2017 Patient Education: [...] cons ider 08/11/2017 Appointment: Leydi Hightower WPtel: [phone] [phone] (30 min) Complex 08/11/2017 Patient Education: Patient [...] medications. 06/09/2017 [phone] ([facility] min[facility] Complex 06/09/2017 Patient Education: [...] completely resolve 11/17/2016 Appointment: Leydi Hightower WPtel: [address] [place], [place] [phone] (30 min) Complex 11/17/2016 Patient Education: Patient [...] in pain. 11/10/2016 Appointment: Leydi Hightower WPtel: [address] [place], [place] [phone] (30 min) Complex 11/10/2016 Patient Education: Patient [...] of plan. 10/14/2016 Appointment: Leydi Hightower WPtel: [address] [place], [place] [phone] (30 min) Complex 10/14/2016 Patient Education: Patient [...] try 09/16/2016 Appointment: Leydi Hightower WPtel: [phone] [phone] (30 min) Complex 09/16/2016 Patient Education: Patient Medication Summary Completed 09/16/2016 Visit Plan: Left shoulder and elbow pain-xray shoulder and elbow Kwdqfyiinu-scndoenu-ahgpjigwkfow-d/c trazodone-start remeron at bedtime Pt has been [...] patient. 08/19/2016 Appointment: Leydi Hightower WPtel: [phone] [phone] (30 min) Complex 08/19/2016 Patient Education: Patient [...] Completed 06/17/2016 Appointment: Leydi Hightower WPtel: [phone] [phone] (30 min) Complex 06/09/2016 Visit Plan: Esophageal [...] of control. 05/12/2016 Appointment: Leydi Hightower WPtel: [address] [place], [place] [phone] (30 min) Complex 05/12/2016 Patient Education: Patient [...] in office. 05/28/2015 Appointment: Leydi Hightower WPtel: [address] [place], [place] [phone] (30 min) Complex 05/28/2015 Patient Education: Patient [...] Patient Medication Summary Completed 04/23/2015 [facility]: [facility] Saving AutoInj - 18-64 - Dynamic Portal ID Completed 04/23/2015 Patient Education: [facility] - Saving AutoInj - Levothyroxine - 18-64 - Dynamic Portal ID Completed 04/23/2015 Care Plan: COMPLETE CBC AUTOMATED LOINC : 63546-9 Ordered 04/23/2015 Instructions Comment . Chronic Pain [...] and elbow pain-xray shou lder and elbow Wemfzpxmnn-shjmumbj-jrnipuoaaczn-d/c trazodone-start remeron at bedtime Pt has been [...]
--- OUTSIDE RECORDS SUMMARY | 2020-03-17 15:19 | XMS REPORT | CCD ---
Author Author Thai Castillo Organization Sara Jacobo MD, [facility] Address [address] [place] [address] Phone Care Team Providers Care Kitchen Stewardess Name Role Phone PP Unavailable CCM Unavailable Summary Purpose Interface Exchange Insurance Providers Payer name Policy type / Coverage type Covered libertarian ID Effective Begin Date Effective End Date WPS Medicare Part B Medicare Part B [id number] Unknown Unknown [facility] icare Part B [id number] Unknown Unk nown Family history Father Diagnosis Age At Onset Colon cancer Unknown Social History Social History Element Codes Description Effective Dates Marital status Unknown D ivorced 04/23/[address]: 140264524 Never smoker 04/23/[address]: 297044 Currently drinks alcohol occasionally drinks 04/23/2015 Allergies, [...] table t, crush resistant, extended release RxNorm: 6567541 1 Tablet(s) PO BID 12/12/2017 02/09/2018 Active clonazepam 1 mg tablet RxNorm: 451319 1/2 Tablet(s) PO daily 12/01/2017 08/27/2018 Active trazodone 50 mg tablet RxNorm: 170863 1/2 to 1 Tablet(s) QHS as needed 12/01/2017 03/30/2018 Ac tive Opana ER 15 mg table t, crush resistant, extended release RxNorm: 907180 1 Tablet(s) PO Q12H 12/01/2017 02/28/2018 Active oxymorphone 5 mg tablet RxNorm: 635129 1 Tablet(s) PO Q6 PRN 12/01/2017 02/28/2018 Active Remeron 15 mg tablet RxNorm: 327755 Tablet(s) TAKE ONE TABLET BY MOUTH EVERY NIGHT AT BEDTIME 12/01/2017 02/28/2018 Active trazodone 50 mg tablet RxNorm: 439056 1/2 Tablet(s) as needed 1 Tablet(s) PO Q HS 12/01/2017 11/30/2017 In active clonazepam 1 mg tablet RxNorm: 719018 1/2 Tablet(s) PO daily 11/30/2017 11/30/2017 Inactive Remeron 15 mg tablet RxNorm: 832809 TAKE ONE TABLET BY MOUTH EVERY NIGHT AT BEDTIME 11/29/2017 11/30/2017 Inactive levothyroxine 200 mc g tablet RxNorm: 987343 TAKE ONE TABLET BY [facility] DAILY 11/15/2017 02/12/2018 Ac tive baclofen 10 mg tablet RxNorm: 544811 TAKE ONE TABLET BY MOUTH THREE TIMES A D AY NEEDED 11/07/2017 12/06/2017 Inactive diclofenac sodium 75 mg tablet,delayed release RxNorm: 381467 1 Tablet(s) PO BID 11/07/2017 05/05/2018 Ac tive liothyronine 5 mcg t ablet RxNorm: 280619 TAKE ONE TABLET BY [facility] DAILY 10/27/2017 07/23/2018 Ac tive tizanidine 4 mg tablet RxNorm: 361314 1 Tablet(s) PO TID as needed 10/18/2017 12/16/2017 Active oxymorphone 5 mg tablet RxNorm: 368284 1 Tablet(s) PO Q6 PRN 09/29/2017 11/27/2017 Inactive morphine 30 mg table t, crush resistant, extended release RxNorm: 0401362 1 Tablet(s) PO BID 09/29/2017 11/28/2017 Inactive baclofen 10 mg tablet RxNorm: 012697 1 Tablet(s) PO TID as needed 09/11/2017 10/10/2017 Inactive baclofen 10 mg tablet RxNorm: 587283 1 Tablet(s) PO TID as needed 08/11/2017 09/09/2017 Inactive Opana ER 15 mg table t, crush resistant, extended release RxNorm: 826921 1 Tablet(s) PO Q12H 08/11/2017 09/28/2017 Inactive Remeron 15 mg tablet RxNorm: 197194 TAKE ONE TABLET BY MOUTH EVERY NIGHT AT BEDTIME 08/02/2017 10/30/2017 Inactive oxymorphone 5 mg tablet RxNorm: 477696 1 Tablet(s) PO Q6 PRN 08/02/2017 09/28/2017 Inactive Opana ER 5 mg tablet , crush resistant, extended release RxNorm: 124158 1 Tablet(s) PO Q6 PRN 08/01/2017 08/10/2017 Inactive Protonix 40 mg table t,delayed release RxNorm: 160732 TAKE ONE TABLET BY [facility] DAILY 06/26/2017 10/23/2017 In active Protonix 40 mg table t,delayed release RxNorm: 546928 TAKE ONE TABLET BY [facility] DAILY 06/26/2017 06/25/2017 In active bupropion HCl XL 300 mg 24 hr tablet, extended release RxNorm: 418782 TAKE ONE TABLET BY MOUTH DAILY 06/13/2017 12/09/2017 Inactive tizanidine 4 mg tablet RxNorm: 380411 1 Tablet(s) PO TID as needed 06/13/2017 06/12/2017 Inactive tizanidine 4 mg tablet RxNorm: 159630 1 Tablet(s) PO TID as needed 06/13/2017 09/10/2017 Inactive baclofen 10 mg tablet RxNorm: 834865 1 Tablet(s) PO TID as needed 06/13/2017 07/12/2017 Inactive Opana ER 15 mg table t, crush resistant, extended release RxNorm: 390299 1 Tablet(s) PO Q12H 06/09/2017 08/07/2017 Inactive Opana ER 5 mg tablet , crush resistant, extended release RxNorm: 283450 1 Tablet(s) PO Q6 PRN 06/09/2017 07/31/2017 Inactive diclofenac sodium 75 mg tablet,delayed release RxNorm: 374218 1 Tablet(s) PO BID 06/09/2017 09/06/2017 In active clonazepam 1 mg tablet RxNorm: 462586 1/2 Tablet(s) PO daily 05/24/2017 11/18/2017 Inactive bupropion HCl XL 300 mg 24 hr tablet, extended release RxNorm: 103596 TAKE ONE TABLET BY MOUTH DAILY 03/16/2017 06/12/2017 Inactive clonazepam 1 mg tablet RxNorm: 779515 1/2 Tablet(s) PO daily 02/22/2017 05/18/2017 Inactive Remeron 15 mg tablet RxNorm: 932541 TAKE ONE TABLET BY MOUTH EVERY NIGHT AT BEDTIME 02/06/2017 2017 Inactive Protonix 40 mg table t,delayed release RxNorm: 812511 TAKE ONE TABLET BY [facility] DAILY 01/26/2017 06/24/2017 In active mupirocin 2 % topica l ointment RxNorm: 620382 1 Application TOP BID 01/12/2017 01/18/2017 Inactive Bactrim DS 800 mg-16 0 mg tablet RxNorm: 978289 1 Tablet(s) PO BID 11/17/2016 11/23/2016 Inactive mupirocin 2 % topica l ointment RxNorm: 172414 1 Application TOP BID 11/10/2016 11/16/2016 Inactive Bactrim DS 800 mg-16 0 mg tablet RxNorm: 282432 1 Tablet(s) PO BID 11/10/2016 11/16/2016 Inactive bupropion HCl XL 300 mg 24 hr tablet, extended release RxNorm: 808761 TAKE ONE TABLET BY MOUTH DAILY 11/07/2016 03/06/2017 Inactive liothyronine 5 mcg t ablet RxNorm: 836935 1 Tablet(s) PO daily 11/01/2016 10/26/2017 Inactive levothyroxine 200 mc g tablet RxNorm: 127810 1 Tablet(s) PO daily 10/04/2016 09/28/2017 Inactive clonazepam 1 mg tablet RxNorm: 312440 1/2 Tablet(s) PO daily 09/21/2016 03/18/2017 Inactive clonazepam 1 mg tablet RxNorm: 787465 1/2 Tablet(s) PO daily 09/16/2016 09/20/2016 Inactive Abilify 2 mg tablet RxNorm: 305437 1 Tablet(s) PO daily 09/16/2016 10/13/2016 Inactive trazodone 50 mg tablet RxNorm: 344213 1/2 Tablet(s) as needed 1 Tablet(s) PO Q HS 09/16/2016 01/13/2017 In active morphine 15 mg immed iate release tablet RxNorm: 601588 1 Tablet(s) PO Q6 PRN 09/16/2016 04/06/2017 In active baclofen 10 mg tablet RxNorm: 544052 1 Tablet(s) PO TID as needed 09/16/2016 06/12/2017 Inactive MS Contin 30 mg tabl et,extended release RxNorm: 011715 1 Tablet(s) PO Q12H 09/16/2016 04/06/2017 In active Remeron 15 mg tablet RxNorm: 273492 1 Tablet(s) PO QHS 08/19/2016 09/15/2016 Inactive levothyroxine 200 mc g tablet RxNorm: 180863 1 Tablet(s) PO daily 08/11/2016 10/03/2016 Inactive bupropion HCl XL 300 mg 24 hr tablet, extended release RxNorm: 665145 TAKE ONE TABLET BY MOUTH DAILY 08/11/2016 11/06/2016 Inactive Protonix 40 mg table t,delayed release RxNorm: 259342 1 Tablet(s) PO daily 06/17/2016 12/13/2016 In active bupropion HCl XL 300 mg 24 hr tablet, extended release RxNorm: 840066 1 Tablet(s) PO daily 05/12/2016 07/10/2016 Inactive bupropion HCl XL 300 mg 24 hr tablet, extended release RxNorm: 303813 1 Tablet(s) PO daily 05/12/2016 05/11/2016 Inactive Cialis 20 mg tablet RxNorm: 714016 1 Tablet(s) PO PRN 02/16/2016 No Stop Date Active not more than 1 tab in 24 hours morphine ER 10 mg ca psule,extended release pellets RxNorm: 861491 1 Tablet(s) PO Q6 as needed 02/16/2016 11/16/2016 Inactive clonazepam 1 mg tablet RxNorm: 683653 1/2 Tablet(s) PO BID 02/16/2016 09/15/2016 Inactive trazodone 50 mg tablet RxNorm: 060215 1/2 Tablet(s) as needed 1 Tablet(s) PO Q HS 02/16/2016 08/18/2016 In active trazodone 50 mg tablet RxNorm: 101384 1/2 Tablet(s) 1 Tablet(s) PO QHS 11/17/2015 02/15/2016 In active trazodone 50 mg tablet RxNorm: 034670 1 Tablet(s) PO QHS 10/19/2015 11/16/2015 Inactive levothyroxine 200 mc g tablet RxNorm: 445419 1 Tablet(s) PO daily 10/02/2015 08/10/2016 Inactive Wellbutrin XL 150 mg 24 hr tablet, extended release RxNorm: 687482 1 Tablet(s) PO daily 10/02/2015 05/11/2016 Inactive levothyroxine 200 mc g tablet RxNorm: 194479 1 Tablet(s) PO daily 09/30/2015 10/01/2015 Inactive Wellbutrin XL 150 mg 24 hr tablet, extended release RxNorm: 344563 1 Tablet(s) PO daily 09/30/2015 10/01/2015 Inactive trazodone 50 mg tablet RxNorm: 170062 1 Tablet(s) PO QHS 09/11/2015 10/10/2015 Inactive trazodone 50 mg tablet RxNorm: 382078 1 Tablet(s) PO QHS 09/11/2015 09/10/2015 Inactive Cymbalta 30 mg capsu le,delayed release RxNorm: 846675 1 Capsule(s) PO daily 09/07/2015 11/16/2015 In active Cymbalta 60 mg capsu le,delayed release RxNorm: 445168 1 Capsule(s) PO daily 08/31/2015 08/30/2015 In active Cymbalta 30 mg capsu le,delayed release RxNorm: 982271 1 Capsule(s) PO daily take with 60mg to make 90 mg daily 08/31/2015 09/06/2015 Inactive Cymbalta 30 mg capsu le,delayed release RxNorm: 365317 1 Capsule(s) PO daily take with 60mg to make 90 mg daily 08/31/2015 08/30/2015 Inactive Cymbalta 60 mg capsu le,delayed release RxNorm: 580799 1 Capsule(s) PO daily x 7 days and then increase to 90mg daily 08/31/2015 09/07/2015 Inactive levothyroxine 200 mc g tablet RxNorm: 890904 1 Tablet(s) PO daily 08/14/2015 09/29/2015 Inactive Wellbutrin XL 150 mg 24 hr tablet, extended release RxNorm: 537357 1 Tablet(s) PO daily 07/14/2015 09/29/2015 Inactive Cialis 20 mg tablet RxNorm: 446288 1 Tablet(s) PO PRN 07/02/2015 02/15/2016 Inactive not more than 1 tab in 24 hours liothyronine 5 mcg t ablet RxNorm: 829474 1 Tablet(s) PO daily 2015 05/29/2016 Inactive clonazepam 1 mg tablet RxNorm: 777085 1 Tablet(s) PO TID 2015 02/15/2016 Inactive minocycline 50 mg ta blet RxNorm: 504934 1 Tablet(s) PO daily 2015 05/11/2016 Inactive Wellbutrin XL 150 mg 24 hr tablet, extended release RxNorm: 188398 1 Tablet(s) PO daily 04/23/2015 07/13/2015 Inactive levothyroxine 200 mc g tablet RxNorm: 928102 1 Tablet(s) PO daily 04/23/2015 08/13/2015 Inactive diclofenac oral RxNorm: 3355 oral No Start Date Active Aleve oral RxNorm: 716512 oral No Start Date Active Tylenol 500 mg RxNorm: oral No Start Date Active morphine ER 15 mg ta blet,extended release RxNorm: 800597 oral No Start Date 11/16/2016 Inactive Trazadone 25 mg RxNorm: 2 PO daily No Start Date 09/11/2015 Inactive clonazepam 1 mg tablet RxNorm: 247587 1 Tablet(s) PO QHS No Start Date 06/04/2015 Inactive Wellbutrin XL 150 mg 24 hr tablet, extended release RxNorm: 112761 1 Tablet(s) PO daily No Start Date 04/22/2015 Inactive minocycline 50 mg ta blet RxNorm: 933210 1 Tablet(s) PO daily No Start Date 06/04/2015 Inactive methadone 5 mg tablet RxNorm: 233730 1 Tablet(s) PO Q8 No Start Date 02/15/2016 Inactive Protonix 40 mg table t,delayed release RxNorm: 689498 Tablet(s) PO daily No Start Date 06/16/2016 Inactive Opana ER 15 mg table t, crush resistant, extended release RxNorm: 283731 1 Tablet(s) PO Q12H No Start Date 06/08/2017 Inactive MS Contin 30 mg tabl et,extended release RxNorm: 703284 1 Tablet(s) PO Q12H No Start Date 02/15/2016 Inactive Opana ER 15 mg table t, crush resistant, extended release RxNorm: 715735 1 Tablet(s) PO BID No Start Date 09/15/2016 Inactive liothyronine 5 mcg t ablet RxNorm: 677865 1 Tablet(s) PO daily No Start Date 06/04/2015 Inactive Cialis 20 mg tablet RxNorm: 095967 1 Tablet(s) PO PRN No Start Date 07/01/2015 Inactive not more than 1 tab in 24 hours baclofen 10 mg tablet RxNorm: 908259 1 Tablet(s) PO TID as needed No Start Date 05/11/2016 Inactive morphine 15 mg immed iate release tablet RxNorm: 781638 1 Tablet(s) PO Q6 PRN as needed No Start Date 02/15/2016 Inactive levothyroxine 200 mc g tablet RxNorm: 356626 1 Tablet(s) PO daily No Start Date 04/22/2015 Inactive Opana ER 5 mg tablet , crush resistant, extended release RxNorm: 609757 1 Tablet(s) PO Q6 No Start Date [...] Ord40 Fe-%Sat 7.1 % 12/06/2017 Free T4 Hxm287 FREE T4 1.82 ng/dL 12/01/2017 Tsh Ord6 [...] 27.0 pg 12/01/2017 Cbc With Differential Ord2 [place]% 10.6 % 12/01/2017 Cbc With Differential Ord2 [...] 1.92 K/ul 12/01/2017 Cbc With Differential Ord2 [place] ABS# 0.4 K/ul 12/01/2017 Cbc With Differential Ord2 Eos ABS# 0.2 K/ul 12/01/2017 Cbc With Differential Ord2 Baso ABS# 0.0 K/ul 12/01/2017 Comp Metabolic Iqb883 NA 136 mEq/L 12/01/2017 Comp Metabolic Flk873 K 4.6 mEq/L 12/01/2017 Comp Metabolic Fus146 CL 102 mEq/L 12/01/2017 Comp Metabolic Orf348 CO2 27.0 mEq/L 12/01/2017 Comp Metabolic Hmd959 AN ION GAP 12 12/01/2017 Comp Metabolic Ejg126 GL UCOSE 90 mg/dL 12/01/2017 Comp Metabolic Eee881 Cr eat 0.7 mg/dL 12/01/2017 Comp Metabolic Vsv269 eG FR 123 ml/min/1.73m2 03/2018 Comp Metabolic Fvt805 BUN 4 mg/dL 12/01/2017 Comp Metabolic Uyi356 B/ C Ratio 5.6 Ratio 12/01/2017 Comp Metabolic Slv530 CA LCIUM 9.0 mg/dL 12/01/2017 Comp Metabolic Anx284 AL K PHOS 67 U/L 12/01/2017 Comp Metabolic Xup116 T(SGOT) 30 U/L 12/01/2017 Comp Metabolic Bhe624 AL T(SGPT) 29 U/L 12/01/2017 Comp Metabolic Pku271 BI LI T 0.3 mg/dL 12/01/2017 Comp Metabolic Vlv304 AL BUMIN 4.1 g/dL 12/01/2017 Comp Metabolic Nsk669 TP RO 6.1 g/dL 12/01/2017 Comp Metabolic Svs575 GL OB 2.0 g/dL 12/01/2017 Comp Metabolic Fjx743 A/ G Ratio 2.0 Ratio 12/01/2017 Comp Metabolic Jgb880 Os mo 268 mOsmo 12/01/2017 Comp Metabolic Hbv721 NA 136 mEq/L 02/16/2016 Comp Metabolic Inx647 K 4.2 mEq/L 02/16/2016 Comp Metabolic Fuj559 CL 104 mEq/L 02/16/2016 Comp Metabolic Ydt233 CO2 20.0 mEq/L 02/16/2016 Comp Metabolic Lcj669 AN ION GAP 16 02/16/2016 Comp Metabolic Dio768 GL UCOSE 71 mg/dL 02/16/2016 Comp Metabolic Nwh194 Cr eat 0.8 mg/dL 02/16/2016 Comp Metabolic Urz719 eG FR 113 ml/min/1.73m2 01/26 Comp Metabolic Qim176 BUN 7 mg/dL 02/16/2016 Comp Metabolic Bkx439 B/ C Ratio 9.1 Ratio 02/16/2016 Comp Metabolic Tcp969 CA LCIUM 9.4 mg/dL 02/16/2016 Comp Metabolic Kio953 AL K PHOS 57 U/L 02/16/2016 Comp Metabolic Cyh358 T(SGOT) 30 U/L 02/16/2016 Comp Metabolic Krs596 AL T(SGPT) 27 U/L 02/16/2016 Comp Metabolic Okc542 BI LI T 0.2 mg/dL 02/16/2016 Comp Metabolic Ers623 AL BUMIN 4.4 g/dL 02/16/2016 Comp Metabolic Mvo054 TP RO 6.5 g/dL 02/16/2016 Comp Metabolic Hcg154 GL OB 2.1 g/dL 02/16/2016 Comp Metabolic Rpm875 A/ G Ratio 2.1 Ratio 02/16/2016 Comp Metabolic Gqm679 Os mo 268 mOsmo 02/16/2016 Free T4 Otz537 FREE T4 1.20 ng/dL 02/16/2016 Cbc With [...] 90.6 fl 02/16/2016 Cbc With Differential Ord2 [place]% 9.6 % 02/16/2016 Cbc With Differential Ord2 [...] 1.50 K/ul 02/16/2016 Cbc With Differential Ord2 [place] ABS# 0.5 K/ul 02/16/2016 Cbc With Differential [...] 1: 132/72 Code: 8480-6 BMI: 33.4 Code: 33961-5 Heart Rate 1: 82 bpm Height: 5'6" SpO2: 97% Weight: 207 lbs 09/29/2017 Blood Pressure 1: 124/68 Code: 8480-6 BMI: 32.1 Code: 46103-2 Heart Rate 1: 77 bpm Height: 5'6" SpO2: 98% Weight: 199 lbs 08/11/2017 Blood Pressure 1: 154/82 Code: 8480-6 BMI: 31.6 Code: 01669-8 Heart Rate 1: 75 bpm Height: 5'6" SpO2: 98% Weight: 196 lbs 06/09/2017 Blood Pressure 1: 148/88 Code: 8480-6 BMI: 28.6 Code: 34677-2 Heart Rate 1: 88 bpm Height: 5'6" SpO2: 98% Weight: 177 lbs 04/07/2017 Blood Pressure 1: 140/84 Code: 8480-6 BMI: 30.3 Code: 46133-3 Heart Rate 1: 81 bpm Height: 5'6" SpO2: 99% Weight: 188 lbs 11/17/2016 Blood Pressure 1: 130/72 Code: 8480-6 Heart Rate 1: 63 bpm Height: SpO2: 93% Weight: 11/10/2016 Blood Pressure 1: 128/86 Code: 8480-6 BMI: 30.3 Code: 74906-8 Heart Rate 1: 84 bpm Height: 5'6" SpO2: 96% Weight: 188 lbs 10/14/2016 Heigh t: 5'6" 09/16/2016 Blood Pressure 1: 130/80 Code: 8480-6 BMI: 30.3 Code: 42674-7 Heart Rate 1: 67 bpm Height: 5'6" SpO2: 99% Weight: 188 lbs 08/19/2016 Blood Pressure 1: 110/62 Code: 8480-6 BMI: 29.9 Code: 06813-1 Heart Rate 1: 70 bpm Height: 5'6" SpO2: 97% Weight: 185 lbs 06/17/2016 Blood Pressure 1: 112/68 Code: 8480-6 BMI: 27.6 Code: 79351-8 Heart Rate 1: 61 bpm Height: 5'6" SpO2: 98% Weight: 171 lbs 05/12/2016 Blood Pressure 1: 130/76 Code: 8480-6 BMI: 29.7 Code: 01425-8 Heart Rate 1: 103 bpm Height: 5'6" SpO2: 98% Weight: 184 lbs 02/16/2016 Blood Pressure 1: 140/82 Code: 8480-6 BMI: 28.7 Code: 87552-2 Heart Rate 1: 66 bpm Height: 5'6" SpO2: 99% Weight: 178 lbs 11/17/2015 Blood Pressure 1: 120/74 Code: 8480-6 BMI: 29.4 Code: 94980-9 Heart Rate 1: 90 bpm Height: 5'6" SpO2: 94% Weight: 182 lbs 08/28/2015 Blood Pressure 1: 128/76 Code: 8480-6 BMI: 27.9 Code: 02416-7 Heart Rate 1: 80 bpm Height: 5'6" SpO2: 98% Weight: 173 lbs 05/28/2015 Blood Pressure 1: 122/70 Code: 8480-6 BMI: 27.0 Code: 10572-8 Heart Rate 1: 74 bpm Height: 5'6" SpO2: 98% Weight: 167 lbs 04/23/2015 Blood Pressure 1: 110/60 Code: 8480-6 BMI: 27.0 Code: 74123-3 Heart Rate 1: 68 bpm Height: 5'6" [...] Encounters Encounter Performer Loca tion Codes Date 65160 EST. PATIENT, LEVEL IV Diagnosis: Other specified hypothyroidism[ICD10: E03.8] Diagnosis: Chronic pain syndrome[ICD10: G89.4] Diagnosis: Major depressive disorder, recurrent, moderate[ICD10: F33.1] Denae Jacobo MD, [facility] CPT-4: 98228 12/01/2017 ([id number]) 63640 EST. P ATIENT, LEVEL IV Diagnosis: Chronic pain syndrome[ICD10: G89.4] Diagnosis: Alcohol dependence, uncomplicated[ICD10: F10.20] Diagnosis: Major depressive disorder, recurrent, moderate[ICD10: F33.1] Leydi Jacobo MD, [facility] CPT-4: 45167 09/29/2017 ([id number]) 03885 EST. P ATIENT, LEVEL IV Diagnosis: Chronic pain syndrome[ICD10: G89.4] Diagnosis: Alcohol dependence, uncomplicated[ICD10: F10.20] Diagnosis: Major depressive disorder, recurrent, moderate[ICD10: F33.1] Leydi Jacobo MD, [facility] CPT-4: 59120 08/11/2017 ([id number]) 24963 EST. P ATIENT, LEVEL III Diagnosis: Chronic pain syndrome[ICD10: G89.4] Diagnosis: Major depressive disorder, recurrent, moderate[ICD10: F33.1] Leydi Jacobo MD, [facility] CPT-4: 85244 06/09/2017 ([id number]) 70409 EST. P ATIENT, LEVEL III Diagnosis: Chronic pain syndrome[ICD10: G89.4] Diagnosis: Pain in left knee[ICD10: M25.562] Leydi Jacobo MD, [facility] CPT- 4: 86096 04/07/2017 [id number] EST. PATIENT, LEVEL II Diagnosis: Superficial foreign body of left upper arm, initial encounter[ICD10: S40.852A] Diagnosis: Cellulitis of left upper limb[ICD10: L03.114] Leydi Jacobo MD, [facility] CPT-4: 45508 11/17/2016 42113 EST. PATIENT, LEVEL II Diagnosis: Cellulitis of left upper limb[ICD10: L03.114] Leydi Jacobo MD, [facility] CPT-4: 96227 11/10/2016 ([id number]) 87996 EST. P ATIENT, LEVEL III Diagnosis: Chronic pain syndrome[ICD10: G89.4] Diagnosis: Major depressive disorder, recurrent, moderate[ICD10: F33.1] Leydi Jacobo MD, [facility] CPT-4: 74513 10/14/2016 37157 EST. PATIENT, LEVEL IV Diagnosis: Psychophysiologic insomnia[ICD10: F51.04] Diagnosis: Major depressive disorder, recurrent, moderate[ICD10: F33.1] Diagnosis: Alcohol dependence, uncomplicated[ICD10: F10.20] Diagnosis: Chronic pain syndrome[ICD10: G89.4] Leydi Jacobo MD, [facility] CPT-4: 47182 09/16/2016 ([id number]) 32491 EST. P ATIENT, LEVEL III Diagnosis: Pain in left shoulder[ICD10: M25.512] Diagnosis: Major depressive disorder, recurrent, moderate[ICD10: F33.1] Diagnosis: Psychophysiologic insomnia[ICD10: F51.04] Leydi Jacobo MD, [facility] CPT-4: 56488 08/19/2016 ([id number]) 07440 EST. P ATIENT, LEVEL III Diagnosis: Gastro-esophageal reflux disease without esophagitis[ICD10: K21.9] Diagnosis: Hypothyroidism, unspecified[ICD10: E03.9] Leydi Jacobo MD, [facility] CPT-4: 59564 06/17/2016 ([id number]) 85119 EST. P ATIENT, LEVEL IV Diagnosis: Gastro-esophageal reflux disease without esophagitis[ICD10: K21.9] Diagnosis: Hypothyroidism, unspecified[ICD10: E03.9] Diagnosis: Major depressive disorder, recurrent, moderate[ICD10: F33.1] Leydi Jacobo MD, [facility] CPT-4: 66270 05/12/2016 ([id number]) 54674 EST. P ATIENT, LEVEL III Diagnosis: Cervicalgia[ICD10: M54.2] Diagnosis: Hypothyroidism, unspecified[ICD10: E03.9] Diagnosis: Other male erectile dysfunction[ICD10: N52.8] Leydi Jacobo MD, [facility] CPT-4: 79767 02/16/2016 ([id number]) 29451 EST. P ATIENT, LEVEL III Diagnosis: Lumbago with sciatica, unspecified side[ICD10: M54.40] Diagnosis: Other male erectile dysfunction[ICD10: N52.8] Leydi Jacobo MD, [facility] CPT-4: 53927 11/17/2015 ([id number]) 40080 EST. P ATIENT, LEVEL III Diagnosis: Lumbago with sciatica, unspecified side[ICD10: M54.40] Diagnosis: Hypothyroidism, unspecified[ICD10: E03.9] Diagnosis: Other male erectile dysfunction[ICD10: N52.8] [facility] CPT-4: 32171 08/28/2015 ([id number]) 60214 EST. P ATIENT, LEVEL III Diagnosis: Back pain, chronic[ICD9: 724.5] Diagnosis: Depression[ICD9: 311] Diagnosis: Hypothyroid[ICD9: 244.9] Diagnosis: Bilateral calf pain[ICD9: 729.5] Julieta Jacobo MD, [facility] CPT-4: 74853 05/28/2015 ([id number]) OFFICE VISI T, NEW - LEVEL 4 Diagnosis: Back pain, chronic[ICD9: 724.5] Diagnosis: Depression[ICD9: 311] Diagnosis: Hypothyroid[ICD9: 244.9] Julieta Jacobo MD, [facility] CPT-4: 76585 04/23/2015 Plan of Care Planned Activity Notes [...] of control. 12/01/2017 Appointment: Denae Martínez WPtel: [phone] [phone] (30 min) Complex 12/01/2017 Patient Education: Patient [...] treatment 09/29/2017 Appointment: Leydi Hightower WPtel: [phone] [phone] (30 min) Complex 09/29/2017 [...] ider 08/11/2017 [facility]ment[facility] [phone] [phone] ([facility] Complex 08/11/2017 Patient Education: Patient [...] medications. 06/09/2017 Appointment: Leydi Hightower WPtel: [phone] [phone] (30 min) Complex 06/09/2017 [...] completely resolve 11/17/2016 Appointment: Leydi Hightower WPtel: [phone] (30 min) Complex 11/17/2016 [...] pain. 11/10/2016 Appointment: Leydi Hightower WPtel: [phone] (30 min) Complex 11/10/2016 [...] of plan. 10/14/2016 Appointment: Leydi Hightower WPtel: [phone] (30 min) Complex 10/14/2016 Patient Education: Patient [...] try 09/16/2016 Appointment: Leydi Hightower WPtel: [facility] [place] [phone] (30 min) Complex 09/16/2016 Patient Education: Patient Medication Summary Completed 09/16/2016 Visit Plan: Left shoulder and elbow pain-xray shoulder and elbow Lbldlrfqnx-vujjbbhu-czzlmllfzode-d/c trazodone-start remeron at bedtime Pt has been [...] patient. 08/19/2016 Appointment: Leydi Hightower WPtel: [phone] [phone] (30 min) Complex 08/19/2016 [...] Completed 06/17/2016 Appointment: [facility]el[facility] [phone] [phone] ([facility]) Complex 06/09/2016 Visit Plan: Esophageal [...] control. 05/12/2016 Appointment: [facility] [phone] [phone] ([facility] min) Complex [...] in office. 05/28/2015 Appointment: Leydi Hightower WPtel: [address] [place], [place] [phone] (30 min) Complex 05/28/2015 Patient Education: Patient [...] Care Plan: COMPLETE CBC AUTOMATED LOINC : 45407-9 Ordered 04/23/2015 Instructions Comment . Chronic Pain [...] and elbow pain-xray shou lder and elbow Cfowkowbbc-eddtugah-vmttrpzqltdv-d/c trazodone-start remeron at bedtime Pt has been [...]
--- OUTSIDE RECORDS SUMMARY | 2020-03-17 15:20 | XMS REPORT | Continuity of Care Document ---
Author Organization Unknown Address Unknown Phone Unavailable Allergies Active Description Code Type Severity Reaction Onset Reported/Identified Relationship to Patient Clinical Status Yes Penicillins [id number] Drug Aller gy Severe N/A 07/14/2014 Yes Penicillins [id number] Drug Aller gy Severe RECEIVED CEPHLA 07/24/2015 Yes Penicillins [id number] Drug Aller gy Severe RECEIVED CEPHAL 01/22/2019 Medications There is no data. Problems Date Dx Coded Attending Type Code Diagnosis Diagnosed By 11/15/2013 FANNY WOOD MD Ot 338. 4 CHRONIC PAIN SYNDROME 11/15/2013 FANNY WOOD MD Ot 721. 3 LUMBOSACRAL SPONDYLOSIS 11/15/2013 FANNY WOOD MD Ot 722. 52 LUMB/LUMBOSAC DISC DEGEN 11/15/2013 FANNY WOOD MD Ot 722. 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 11/15/2013 FANNY WOOD MD Ot 729. 1 MYALGIA AND MYOSITIS NOS 11/15/2013 FANNY WOOD MD Ot V58. 69 OTH MED,LT,CURRENT USE 12/13/2013 FANNY WOOD MD Ot 338. 4 CHRONIC PAIN SYNDROME 12/13/2013 FANNY WOOD MD Ot 721. 3 LUMBOSACRAL SPONDYLOSIS 12/13/2013 FANNY WOOD MD Ot 722. 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 79 DISORDER OF COCCYX NEC 12/13/2013 FANNY WOOD MD Ot 729. 1 MYALGIA AND MYOSITIS NOS 12/13/2013 FANNY WOOD MD Ot V58. 69 OTH MED,LT,CURRENT USE 12/31/2013 FANNY WOOD MD Ot 722. 52 LUMB/LUMBOSAC DISC DEGEN 12/31/2013 FANNY WOOD MD Ot V57. 1 PHYSICAL THERAPY NEC 02/05/2014 FANNY WOOD MD Ot 722. 52 LUMB/LUMBOSAC DISC DEGEN 02/05/2014 FANNY WOOD MD Ot V57. 1 PHYSICAL THERAPY NEC 02/28/2014 FANNY WOOD MD Ot 338. 4 CHRONIC PAIN SYNDROME 02/28/2014 FANNY WOOD MD Ot 721. 3 LUMBOSACRAL SPONDYLOSIS 02/28/2014 FANNY WOOD MD Ot 722. 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 79 DISORDER OF COCCYX NEC 02/28/2014 FANNY WOOD MD Ot 729. 1 MYALGIA AND MYOSITIS NOS 02/28/2014 FANNY WOOD MD Ot V58. 69 OTH MED,LT,CURRENT USE 05/05/2014 FANNY WOOD MD Ot 338. 4 CHRONIC PAIN SYNDROME 05/05/2014 FANNY WOOD MD Ot 721. 3 LUMBOSACRAL SPONDYLOSIS 05/05/2014 FANNY WOOD MD Ot 722. 52 LUMB/LUMBOSAC DISC DEGEN 05/05/2014 FANNY WOOD MD Ot 722. 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 1 MYALGIA AND MYOSITIS NOS 05/05/2014 FANNY WOOD MD, Ot V58. 69 OTH MED,LT,CURRENT USE 07/14/2014 FANNY WOOD MD Ot 338. 4 CHRONIC PAIN SYNDROME 07/14/2014 FANNY WOOD MD Ot 721. 3 LUMBOSACRAL SPONDYLOSIS 07/14/2014 FANNY WOOD MD Ot 722. 52 LUMB/LUMBOSAC DISC DEGEN 07/14/2014 FANNY WOOD MD Ot 722. 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 1 MYALGIA AND MYOSITIS NOS 07/14/2014 FANNY WOOD MD, Ot V58. 69 OTH MED,LT,CURRENT USE 07/25/2014 FANNY WOOD MD Ot 721. 3 LUMBOSACRAL SPONDYLOSIS 07/25/2014 FANNY WOOD MD Ot 722. 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 6 DISORDERS OF SACRUM 07/25/2014 FANNY WOOD MD, Ot V58. 69 OTH MED,LT,CURRENT USE 08/29/2014 FANNY WOOD MD Ot 338. 4 CHRONIC PAIN SYNDROME 08/29/2014 FANNY WOOD MD Ot 721. 3 LUMBOSACRAL SPONDYLOSIS 08/29/2014 FANNY WOOD MD, Ot 722. 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 1 MYALGIA AND MYOSITIS NOS 08/29/2014 FANNY WOOD MD, Ot V58. 69 OTH MED,LT,CURRENT USE 09/30/2014 ASHLEY HORNE MD Ot 455. 0 INT HEMORRHOID W/O COMPL 09/30/2014 ASHLEY HORNE MD Ot V16. 0 FAMILY HX-GI MALIGNANCY 09/30/2014 ASHLEY HORNE MD Ot V76. 51 SCREEN MAL NEOP-COLON 12/01/2014 FANNY WOOD MD Ot 338. 4 CHRONIC PAIN SYNDROME 12/01/2014 FANNY WOOD MD, Ot 721. 3 LUMBOSACRAL SPONDYLOSIS 12/01/2014 FANNY WOOD MD, Ot 722. 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 6 DISORDERS OF SACRUM 12/01/2014 FANNY WOOD MD, Ot 729. 1 MYALGIA AND MYOSITIS NOS 12/01/2014 FANNY WOOD MD, Ot V58. 69 OTH MED,LT,CURRENT USE 01/05/2015 RADHA BRITTON MD Ot 724.2 LUMBAGO 01/15/2015 FANNY WOOD MD Ot 722. 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 03/02/2015 ADELSO GUERRA DO Ot 721 .3 03/02/2015 ADELSO GUERRA DO Ot V45 .4 03/25/2015 ADELSO GUERRA DO Ot 721 .3 03/25/2015 ADELSO GUERRA DO Ot V45 .4 04/17/2015 ADELSO GUERRA DO Ot 721 .3 04/17/2015 ADELSO GUERRA DO Ot V45 .4 07/27/2015 HEATHER SYKES DO Ot 244.9 HYPOTHYROIDISM NOS 07/27/2015 HEATHER SYKES DO Ot 300.00 ANXIETY STATE NOS 07/27/2015 HEATHER SYKES DO Ot 311 DEPRESSIVE DISORDER NEC 07/27/2015 HEATHER SYKES DO Ot 338.11 ACUTE PAIN DUE TO TRAUMA 07/27/2015 HEATHER SYKES DO Ot 338.4 CHRONIC PAIN SYNDROME 07/27/2015 HEATHER SYKES DO Ot 722.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 07/27/2015 ONEL HEATHER SANTIAGO Ot 780.52 INSOMNIA, UNSPECIFIED 07/27/2015 HEATHER SYKES DO Ot 820.21 INTERTROCHANTERIC FX-CL 07/27/2015 HEATHER SYKES DO Ot E849.0 ACCIDENT IN HOME 07/27/2015 HEATHER SYKES DO Ot E880.9 FALL ON STAIR/STEP NEC 07/27/2015 HEATHER SYKES DO Ot E885.9 02/17/2016 RADHA BRITTON MD, Ot T15.81XA FB IN OTH AND MULTIPLE PARTS OF EXTERNAL 02/17/2016 RADHA BRITTON MD, Ot Y92.[address] IN SINGLE-FAMILY (PRIVATE) 02/18/2016 RADHA BRITTON MD, Ot T15.81XA 02/18/2016 RADHA BRITTON MD, Ot Y92.019 04/28/2016 FANNY WOOD MD Ot 564. 00 UNSPEC CONSTIPATION 04/28/2016 FANNY WOOD MD Ot 724. 2 LUMBAGO 04/28/2016 FANNY WOOD MD Ot V45. 4 ARTHRODESIS STATUS 04/28/2016 FANNY WOOD MD Ot V58. 69 OTH MED,LT,CURRENT USE 04/28/2016 FANNY WOOD MD Ot V58. 83 ENCOUNTER FOR THERAPEUTIC DRUG MONITORIN 04/28/2016 FANNY WOOD MD Ot V58. 69 OTH MED,LT,CURRENT USE 04/28/2016 FANNY WOOD MD Ot V58. 83 ENCOUNTER FOR THERAPEUTIC DRUG MONITORIN 04/28/2016 GURINDER MELENDEZ MD Ot 729.5 PAIN IN LIMB 04/28/2016 GURINDER MELENDEZ MD Ot 790.92 COAGULATION PROFILE, ABNORMAL 04/28/2016 FANNY WOOD MD Ot 721. 2 THORACIC SPONDYLOSIS 04/28/2016 FANNY WOOD MD Ot 721. 3 LUMBOSACRAL SPONDYLOSIS 04/28/2016 FANNY WOOD MD Ot V45. 4 ARTHRODESIS STATUS 04/28/2016 COLEEN PACE, ASHLEY Traore Ot V72. 84 EXAM PRE-OPERATIVE NOS 04/28/2016 FANNY WOOD MD Ot 719. 45 JOINT PAIN-PELVIS 04/28/2016 FANNY WOOD MD Ot 959. 6 HIP THIGH INJURY NOS 04/28/2016 FANNY WOOD MD Ot E000 .8 OTHER EXTERNAL CAUSE STATUS 04/28/2016 FANNY WOOD MD Ot E849 .0 ACCIDENT IN HOME 04/28/2016 FANNY WOOD MD Ot E888 .9 FALL NOS 04/28/2016 MARI ADELSO SANTIAGO Ot 721 .3 LUMBOSACRAL SPONDYLOSIS 04/28/2016 MARI ADELSO SANTIAGO Ot V45 .4 ARTHRODESIS STATUS 04/28/2016 DENG SANTIAGO ERNESTINE K Ot R07.89 OTHER CHEST PAIN 04/28/2016 DENG SANTIAGO ERNESTINE Deep Ot Z53.21 PROC/TRTMT NOT CRD OUT D/T PT LV BEF SEE 04/29/2016 DENG ERNESTINE Ot R07.89 OTHER CHEST PAIN 04/29/2016 DENG SANTIAGO ERNESTINE K Ot Z53.21 PROC/TRTMT NOT CRD OUT D/T PT LV BEF SEE 05/19/2016 DENG ERNESTINE K Ot R07.89 OTHER CHEST PAIN 05/19/2016 DENG SANTIAGO ERNESTINE Deep Ot Z53.21 PROC/TRTMT NOT CRD OUT D/T PT LV BEF SEE 06/02/2016 ERNESTINE VILCHIS DO Ot R07.89 OTHER CHEST PAIN 06/02/2016 DENG DO ERNESTINE Deep Ot Z53.21 PROC/TRTMT NOT CRD OUT D/T PT LV BEF SEE 08/24/2016 FANNY WOOD MD Ot 564. 00 UNSPEC CONSTIPATION 08/24/2016 FANNY WOOD MD Ot 724. 2 LUMBAGO 08/24/2016 FANNY WOOD MD Ot V45. 4 ARTHRODESIS STATUS 08/24/2016 FANNY WOOD MD Ot V58. 69 OTH MED,LT,CURRENT USE 08/24/2016 FANNY WOOD MD Ot V58. 83 ENCOUNTER FOR THERAPEUTIC DRUG MONITORIN 08/24/2016 FANNY WOOD MD Ot V58. 69 OTH MED,LT,CURRENT USE 08/24/2016 FANNY WOOD MD Ot V58. 83 ENCOUNTER FOR THERAPEUTIC DRUG MONITORIN 08/24/2016 GURINDER MELENDEZ MD Ot 729.5 PAIN IN LIMB 08/24/2016 GURINDER MELENDEZ MD Ot 790.92 COAGULATION PROFILE, ABNORMAL 08/24/2016 FANNY WOOD MD Ot 721. 2 THORACIC SPONDYLOSIS 08/24/2016 FANNY WOOD MD Ot 721. 3 LUMBOSACRAL SPONDYLOSIS 08/24/2016 FANNY WOOD MD Ot V45. 4 ARTHRODESIS STATUS 08/24/2016 COLEEN PACE, ASHLEY Traore Ot V72. 84 EXAM PRE-OPERATIVE NOS 08/24/2016 FANNY WOOD MD Ot 719. 45 JOINT PAIN-PELVIS 08/24/2016 FANNY WOOD MD Ot 959. 6 HIP THIGH INJURY NOS 08/24/2016 FANNY WOOD MD Ot E000 .8 OTHER EXTERNAL CAUSE STATUS 08/24/2016 FANNY WOOD MD Ot E849 .0 ACCIDENT IN HOME 08/24/2016 FANNY WOOD MD Ot E888 .9 FALL NOS 08/24/2016 ADELSO GUERRA DO Ot 721 .3 LUMBOSACRAL SPONDYLOSIS 08/24/2016 ADELSO GUERRA DO Ot V45 .4 ARTHRODESIS STATUS 08/26/2016 FANNY WOOD MD Ot 564. 00 UNSPEC CONSTIPATION 08/26/2016 FANNY WOOD MD Ot 724. 2 LUMBAGO 08/26/2016 FANNY WOOD MD Ot V45. 4 ARTHRODESIS STATUS 08/26/2016 FANNY WOOD MD Ot V58. 69 OTH MED,LT,CURRENT USE 08/26/2016 FANNY WOOD MD Ot V58. 83 ENCOUNTER FOR THERAPEUTIC DRUG MONITORIN 08/26/2016 FANNY WOOD MD Ot V58. 69 OTH MED,LT,CURRENT USE 08/26/2016 FANNY WOOD MD Ot V58. 83 ENCOUNTER FOR THERAPEUTIC DRUG MONITORIN 08/26/2016 GURINDER MELENDEZ MD Ot 729.5 PAIN IN LIMB 08/26/2016 GURINDER MELENDEZ MD Ot 790.92 COAGULATION PROFILE, ABNORMAL 08/26/2016 FANNY WOOD MD Ot 721. 2 THORACIC SPONDYLOSIS 08/26/2016 FANNY WOOD MD Ot 721. 3 LUMBOSACRAL SPONDYLOSIS 08/26/2016 FANNY WOOD MD Ot V45. 4 ARTHRODESIS STATUS 08/26/2016 COLEEN PACE, ASHLEY Traore Ot V72. 84 EXAM PRE-OPERATIVE NOS 08/26/2016 FANNY WOOD MD Ot 719. 45 JOINT PAIN-PELVIS 08/26/2016 FANNY WOOD MD Ot 959. 6 HIP THIGH INJURY NOS 08/26/2016 FANNY WOOD MD Ot E000 .8 OTHER EXTERNAL CAUSE STATUS 08/26/2016 FANNY WOOD MD Ot E849 .0 ACCIDENT IN HOME 08/26/2016 FANNY WOOD MD Ot E888 .9 FALL NOS 08/26/2016 MARI SANTIAGOADELSO Ot 721 .3 LUMBOSACRAL SPONDYLOSIS 08/26/2016 MARI SANTIAGOADELSO Ot V45 .4 ARTHRODESIS STATUS 08/26/2016 JYOTI IVORYP Ot M25.512 PAIN IN LEFT SHOULDER 08/26/2016 JYOTI IVORYP Ot M25.522 PAIN IN LEFT ELBOW 09/15/2016 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 Ot M25.512 PAIN IN LEFT SHOULDER 09/15/2016 JYOTI IVORYP Ot M25.522 PAIN IN LEFT ELBOW 09/22/2016 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 Ot M25.512 PAIN IN LEFT SHOULDER 09/22/2016 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 Ot M25.522 PAIN IN LEFT ELBOW 01/29/2018 JC PACE, SUDEEP Redman Ot D50.9 IRON DEFICIENCY ANEMIA, UNSPECIFIED 02/16/2018 JC PACE, SUDEEP Redman Ot D50.9 IRON DEFICIENCY ANEMIA, UNSPECIFIED 02/21/2018 SUDEEP GREENE MD Ot D50.9 IRON DEFICIENCY ANEMIA, UNSPECIFIED 02/23/2018 JYOTI IVORY Ot F10.11 ALCOHOL ABUSE, IN REMISSION 02/23/2018 JYOTI IVORY Ot R94.5 ABNORMAL RESULTS OF LIVER FUNCTION STUDI 02/23/2018 JYOTI IVORYP Ot Z90.49 ACQUIRED ABSENCE OF OTHER SPECIFIED PART 03/16/2018 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 Ot E03.9 HYPOTHYROIDISM, UNSPECIFIED 03/16/2018 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 Ot E66.9 OBESITY, UNSPECIFIED 03/16/2018 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 Ot F32.9 MAJOR DEPRESSIVE DISORDER, SINGLE EPISOD 03/16/2018 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 Ot F41.9 ANXIETY DISORDER, UNSPECIFIED 03/16/2018 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 Ot G47.10 HYPERSOMNIA, UNSPECIFIED 03/16/2018 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 Ot G47.33 OBSTRUCTIVE SLEEP APNEA (ADULT) (PEDIATR 03/16/2018 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 Ot G89.4 CHRONIC PAIN SYNDROME 03/16/2018 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 Ot I10 ESSENTIAL (PRIMARY) HYPERTENSION 03/16/2018 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 Ot R06.83 SNORING 03/19/2018 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 Ot F10.11 ALCOHOL ABUSE, IN REMISSION 03/19/2018 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 Ot R94.5 ABNORMAL RESULTS OF LIVER FUNCTION STUDI 03/19/2018 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 Ot Z90.49 ACQUIRED ABSENCE OF OTHER SPECIFIED PART 03/20/2018 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 Ot E03.9 HYPOTHYROIDISM, UNSPECIFIED 03/20/2018 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 Ot E66.9 OBESITY, UNSPECIFIED 03/20/2018 JYOTI IVOYR BODY WORKER Ot F32.9 MAJOR DEPRESSIVE DISORDER, SINGLE EPISOD 03/20/2018 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 Ot F41.9 ANXIETY DISORDER, UNSPECIFIED 03/20/2018 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 Ot G47.10 HYPERSOMNIA, UNSPECIFIED 03/20/2018 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 Ot G89.4 CHRONIC PAIN SYNDROME 03/20/2018 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 Ot I10 ESSENTIAL (PRIMARY) HYPERTENSION 03/20/2018 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 Ot R06.83 SNORING 03/21/2018 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 Ot F10.11 ALCOHOL ABUSE, IN REMISSION 03/21/2018 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 Ot R94.5 ABNORMAL RESULTS OF LIVER FUNCTION STUDI 03/21/2018 JYOTI IVORYP Ot Z90.49 ACQUIRED ABSENCE OF OTHER SPECIFIED PART 04/01/2018 DENG DO, ERNESTINE K Ot D64.9 ANEMIA, UNSPECIFIED 04/01/2018 DENG DO, ERNESTINE K Ot E03.9 HYPOTHYROIDISM, UNSPECIFIED 04/01/2018 DENG DO, ERNESTINE K Ot F12.90 CANNABIS USE, UNSPECIFIED, UNCOMPLICATED 04/01/2018 DENG DO, ERNESTINE K Ot F17.210 NICOTINE DEPENDENCE, CIGARETTES, UNCOMPL 04/01/2018 DENG DO, ERNESTINE K Ot F32.9 MAJOR DEPRESSIVE DISORDER, SINGLE EPISOD 04/01/2018 DENG DO, ERNESTINE K Ot F41.9 ANXIETY DISORDER, UNSPECIFIED 04/01/2018 DENG DO, ERNESTINE K Ot G47.9 SLEEP DISORDER, UNSPECIFIED 04/01/2018 DENG DO, ERNESTINE K Ot K21.9 GASTRO-ESOPHAGEAL REFLUX DISEASE WITHOUT 04/01/2018 DENG DO, ERNESTINE K Ot K52.9 NONINFECTIVE GASTROENTERITIS AND COLITIS 04/01/2018 DENG DO, ERNESTINE K Ot R19.7 DIARRHEA, UNSPECIFIED 04/01/2018 DENG DO, ERNESTINE K Ot Z87.81 PERSONAL HISTORY OF (HEALED) TRAUMATIC F 04/01/2018 DENG DO ERNESTINE K Ot Z88.0 ALLERGY STATUS TO PENICILLIN 04/01/2018 DENG DO, ERNESTINE K Ot Z98.84 BARIATRIC SURGERY STATUS 04/01/2018 DENG DO, ERNESTINE K Ot Z98.890 OTHER SPECIFIED POSTPROCEDURAL STATES 04/02/2018 DENG DO, ERNESTINE K Ot D64.9 ANEMIA, UNSPECIFIED 04/02/2018 DENG DO, ERNESTINE K Ot E03.9 HYPOTHYROIDISM, UNSPECIFIED 04/02/2018 DENG DO, ERNESTINE K Ot F12.90 CANNABIS USE, UNSPECIFIED, UNCOMPLICATED 04/02/2018 DENG DO, ERNESTINE K Ot F17.210 NICOTINE DEPENDENCE, CIGARETTES, UNCOMPL 04/02/2018 DENG DO, ERNESTINE K Ot F32.9 MAJOR DEPRESSIVE DISORDER, SINGLE EPISOD 04/02/2018 DENG DO, ERNESTINE K Ot F41.9 ANXIETY DISORDER, UNSPECIFIED 04/02/2018 DENG DO, ERNESTINE K Ot G47.9 SLEEP DISORDER, UNSPECIFIED 04/02/2018 DENG DO, ERNESTINE K Ot K21.9 GASTRO-ESOPHAGEAL REFLUX DISEASE WITHOUT 04/02/2018 ERNESTINE VILCHIS DO Ot K52.9 NONINFECTIVE GASTROENTERITIS AND COLITIS 04/02/2018 ERNESTINE VILCHIS DO Ot R19.7 DIARRHEA, UNSPECIFIED 04/02/2018 ERNESTINE VILCHIS DO Ot Z87.81 PERSONAL HISTORY OF (HEALED) TRAUMATIC F 04/02/2018 ERNESTINE VILCHIS DO Ot Z88.0 ALLERGY STATUS TO PENICILLIN 04/02/2018 ERNESTINE VILCHIS DO Ot Z98.84 BARIATRIC SURGERY STATUS 04/02/2018 ERNESTINE VILCHIS DO Ot Z98.890 OTHER SPECIFIED POSTPROCEDURAL STATES 08/06/2018 FANNY WOOD MD Ot 564. 00 UNSPEC CONSTIPATION 08/06/2018 FANNY WOOD MD Ot 724. 2 LUMBAGO 08/06/2018 FANNY WOOD MD Ot V45. 4 ARTHRODESIS STATUS 08/06/2018 FANNY WOOD MD Ot V58. 69 OTH MED,LT,CURRENT USE 08/06/2018 FANNY WOOD MD Ot V58. 83 ENCOUNTER FOR THERAPEUTIC DRUG MONITORIN 08/06/2018 FANNY WOOD MD, Ot V58. 69 OTH MED,LT,CURRENT USE 08/06/2018 FANNY WOOD MD Ot V58. 83 ENCOUNTER FOR THERAPEUTIC DRUG MONITORIN 08/06/2018 GURINDER MELENDEZ MD Ot 729.5 PAIN IN LIMB 08/06/2018 GURINDER MELENDEZ MD Ot 790.92 COAGULATION PROFILE, ABNORMAL 08/06/2018 FANNY WOOD MD Ot 721. 2 THORACIC SPONDYLOSIS 08/06/2018 FANNY WOOD MD Ot 721. 3 LUMBOSACRAL SPONDYLOSIS 08/06/2018 FANNY WOOD MD Ot V45. 4 ARTHRODESIS STATUS 08/06/2018 COLEEN PACE, ASHLEY Traore Ot V72. 84 EXAM PRE-OPERATIVE NOS 08/06/2018 FANNY WOOD MD Ot 719. 45 JOINT PAIN-PELVIS 08/06/2018 FANNY WOOD MD Ot 959. 6 HIP THIGH INJURY NOS 08/06/2018 FANNY WOOD MD Ot E000 .8 OTHER EXTERNAL CAUSE STATUS 08/06/2018 FANNY WOOD MD Ot E849 .0 ACCIDENT IN HOME 08/06/2018 NINA PACE, FANNY Barakat Ot E888 .9 FALL NOS 08/06/2018 MARI SANTIAGO ADELSO Geronimo Ot 721 .3 LUMBOSACRAL SPONDYLOSIS 08/06/2018 MARI SANTIAGO ADELSO Geronimo Ot V45 .4 ARTHRODESIS STATUS 08/06/2018 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 Ot M25.512 PAIN IN LEFT SHOULDER 08/06/2018 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 Ot M25.522 PAIN IN LEFT ELBOW 08/06/2018 JC PACE, SUDEEP Redman Ot D50.9 IRON DEFICIENCY ANEMIA, UNSPECIFIED 08/06/2018 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 Ot F10.11 ALCOHOL ABUSE, IN REMISSION 08/06/2018 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 Ot R94.5 ABNORMAL RESULTS OF LIVER FUNCTION STUDI 08/06/2018 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 Ot Z90.49 ACQUIRED ABSENCE OF OTHER SPECIFIED PART 08/06/2018 ESTEFANI, JOSE J 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 Ot G47.33 OBSTRUCTIVE SLEEP APNEA (ADULT) (PEDIATR 08/10/2018 ESTEFANI, JOSE J 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 Ot G47.10 HYPERSOMNIA, UNSPECIFIED 08/10/2018 ESTEFANI, JOSE J 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 Ot G47.33 OBSTRUCTIVE SLEEP APNEA (ADULT) (PEDIATR 08/14/2018 ESTEFANI, JOSE J 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 Ot G47.10 HYPERSOMNIA, UNSPECIFIED 08/14/2018 ESTEFANI, JOSE J 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 Ot G47.33 OBSTRUCTIVE SLEEP APNEA (ADULT) (PEDIATR 01/14/2019 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 Ot E03.4 ATROPHY OF THYROID (ACQUIRED) 01/14/2019 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 Ot E03.4 ATROPHY OF THYROID (ACQUIRED) 01/17/2019 AMAURY PACE FACC, ALI FACP CCDS Ot R06.02 SHORTNESS OF BREATH 01/17/2019 AMAURY PACE FACC, ALI FACP CCDS Ot R06.02 SHORTNESS OF BREATH 01/21/2019 AMAURY PACE FACC, ALI FACP CCDS Ot G89.29 OTHER CHRONIC PAIN 01/21/2019 AMAURY PACE FACC, ALI FACP CCDS Ot R06.02 SHORTNESS OF BREATH 01/21/2019 AMAURY PACE FACC, ALI FACP CCDS Ot R53.83 OTHER FATIGUE 01/21/2019 AMAURY PACE FACC, ALI FACP CCDS Ot Z72.0 TOBACCO USE 01/23/2019 AMAURY PACE FACC, ALI FACP CCDS Ot F17.220 NICOTINE DEPENDENCE, CHEWING TOBACCO, UN 01/23/2019 AMAURY PACE FACC, ALI FACP CCDS Ot M54.9 DORSALGIA, UNSPECIFIED 01/23/2019 AMAURY PACE FACC, ALI FACP CCDS Ot R06.02 SHORTNESS OF BREATH 01/23/2019 AMAURY PACE FACC, ALI FACP CCDS Ot R53.83 OTHER FATIGUE 02/08/2019 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 Ot E03.4 ATROPHY OF THYROID (ACQUIRED) 02/11/2019 AMAURY PACE FACC, ALI FACP CCDS Ot G89.29 OTHER CHRONIC PAIN 02/11/2019 AMAURY PACE FACC, ALI FACP CCDS Ot R06.02 SHORTNESS OF BREATH 02/11/2019 AMAURY PACE FACC, ALI FACP CCDS Ot R53.83 OTHER FATIGUE 02/11/2019 AMAURY PACE [facility], ALI FACP CCDS Ot Z72.0 TOBACCO USE 02/13/2019 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 Ot E03.4 ATROPHY OF THYROID (ACQUIRED) 02/18/2019 AMAURY PACE FAC, ALI FACP CCDS Ot F17.220 NICOTINE DEPENDENCE, CHEWING TOBACCO, UN 02/18/2019 AMAURY TURPINC, ALI FACP CCDS Ot M54.9 DORSALGIA, UNSPECIFIED 02/18/2019 AMAURY PACE FACC, ALI FACP CCDS Ot R06.02 SHORTNESS OF BREATH 02/18/2019 AMAURY TURPIN, ALI FACP CCDS Ot R53.83 OTHER FATIGUE 02/18/2019 AMAURY PACE FAC, ALI FACP CCDS Ot G89.29 OTHER CHRONIC PAIN 02/18/2019 AMAURY PACE FACC, ALI FACP CCDS Ot R06.02 SHORTNESS OF BREATH 02/18/2019 AMAURY PACE FACC, ALI FACP CCDS Ot R53.83 OTHER FATIGUE 02/18/2019 AMAURY PACE FACC, ALI FACP CCDS Ot Z72.0 TOBACCO USE 02/20/2019 AMAURY PACE FACC, ALI FACP CCDS Ot F17.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 9 ANEMIA, UNSPECIFIED 11/10/2019 RHONDA ERAZO MD Ot E03. 9 HYPOTHYROIDISM, UNSPECIFIED 11/10/2019 RHONDA ERAZO MD Ot F17.220 NICOTINE DEPENDENCE, CHEWING TOBACCO, UN 11/10/2019 RHONDA ERAZO MD Ot F32. 9 MAJOR DEPRESSIVE DISORDER, SINGLE EPISOD 11/10/2019 RHONDA ERAZO MD Ot F41. 9 ANXIETY DISORDER, UNSPECIFIED 11/10/2019 RHONDA ERAZO MD Ot K21. 9 GASTRO-ESOPHAGEAL REFLUX DISEASE WITHOUT 11/10/2019 RHONDA ERAZO MD Ot M54. 6 PAIN IN THORACIC SPINE 11/10/2019 RHONDA ERAZO MD Ot R40.2142 COMA SCALE, EYES OPEN, SPONTANEOUS, EMR 11/10/2019 RHONDA ERAZO MD Ot R40.2252 COMA SCALE, BEST VERBAL RESPONSE, ORIENT 11/10/2019 RHONDA ERAZO MD Ot R40.2362 COMA SCALE, BEST MOTOR RESPONSE, OBEYS C 11/10/2019 RHONDA ERAZO MD Ot S22.050A WEDGE COMPRESSION FRACTURE OF T5-T6 VERT 11/10/2019 RHONDA ERAZO MD Ot W10.9XXA FALL (ON) (FROM) UNSPECIFIED STAIRS AND 11/10/2019 RHONDA ERAZO MD Ot Z80. 0 FAMILY HISTORY OF MALIGNANT NEOPLASM OF 11/10/2019 RHONDA ERAZO MD Ot Z82. 49 FAMILY HX OF ISCHEM HEART DIS AND OTH DI 11/10/2019 RHONDA ERAZO MD Ot Z88. 0 ALLERGY STATUS TO PENICILLIN 11/10/2019 NORA PACE, GURINDER Melton Ot 729.5 PAIN IN LIMB 11/10/2019 GURINDER MELENDEZ MD Ot 790.92 COAGULATION PROFILE, ABNORMAL 11/10/2019 FANNY WOOD MD Ot 721. 2 THORACIC SPONDYLOSIS 11/10/2019 FANNY WOOD MD Ot 721. 3 LUMBOSACRAL SPONDYLOSIS 11/10/2019 FANNY WOOD MD Ot V45. 4 ARTHRODESIS STATUS 11/10/2019 COLEEN PACE, ASHLEY Traore Ot V72. 84 EXAM PRE-OPERATIVE NOS 11/10/2019 FANNY WOOD MD Ot 719. 45 JOINT PAIN-PELVIS 11/10/2019 FANNY WOOD MD Ot 959. 6 HIP THIGH INJURY NOS 11/10/2019 FANNY WOOD MD Ot E000 .8 OTHER EXTERNAL CAUSE STATUS 11/10/2019 FANNY WOOD MD Ot E849 .0 ACCIDENT IN HOME 11/10/2019 FANNY WOOD MD Ot E888 .9 FALL NOS 11/10/2019 MARI ADELSO SANTIAGO Ot 721 .3 LUMBOSACRAL SPONDYLOSIS 11/10/2019 ADELSO GUERRA DO Ot V45 .4 ARTHRODESIS STATUS 11/10/2019 JYOTI IVORYP Ot M25.512 PAIN IN LEFT SHOULDER 11/10/2019 JYOTI IVORYP Ot M25.522 PAIN IN LEFT ELBOW 11/10/2019 JC PACE, SUDEEP Redman Ot D50.9 IRON DEFICIENCY ANEMIA, UNSPECIFIED 11/10/2019 JYOTI IVORYP Ot F10.11 ALCOHOL ABUSE, IN REMISSION 11/10/2019 JYOTI IVORYP Ot R94.5 ABNORMAL RESULTS OF LIVER FUNCTION STUDI 11/10/2019 JYOTI IVORYP Ot Z90.49 ACQUIRED ABSENCE OF OTHER SPECIFIED PART 11/10/2019 JYOTI IVORYP Ot E03.4 ATROPHY OF THYROID (ACQUIRED) 11/10/2019 AMAURY PACE FACC, ALI FACP CCDS Ot F17.220 NICOTINE DEPENDENCE, CHEWING TOBACCO, UN 11/10/2019 AMAURY PACE FACC, ALI FACP CCDS Ot M54.9 DORSALGIA, UNSPECIFIED 11/10/2019 AMAURY PACE FACC, ALI FACP CCDS Ot R06.02 SHORTNESS OF BREATH 11/10/2019 AMAURY PACE FAC, ALI FACP CCDS Ot R53.83 OTHER FATIGUE 11/10/2019 AMAURY PACE FAC, ALI FACP CCDS Ot G89.29 OTHER CHRONIC PAIN 11/10/2019 AMAURY PACE FAC, ALI FACP CCDS Ot R06.02 SHORTNESS OF BREATH 11/10/2019 AMAURY PACE [facility], ALI FACP CCDS Ot R53.83 OTHER FATIGUE 11/10/2019 AMAURY PACE [facility], ALI FACP CCDS Ot Z72.0 TOBACCO USE 11/10/2019 MARSHALL SCHWAB APRN Ot E03.9 HYPOTHYROIDISM, UNSPECIFIED 11/16/2019 RHONDA ERAZO MD Ot D64. 9 ANEMIA, UNSPECIFIED 11/16/2019 RHONDA ERAZO MD Ot E03. 9 HYPOTHYROIDISM, UNSPECIFIED 11/16/2019 RHONDA ERAZO MD Ot F17.220 NICOTINE DEPENDENCE, CHEWING TOBACCO, UN 11/16/2019 RHONDA ERAZO MD Ot F32. 9 MAJOR DEPRESSIVE DISORDER, SINGLE EPISOD 11/16/2019 RHONDA ERAZO MD Ot F41. 9 ANXIETY DISORDER, UNSPECIFIED 11/16/2019 RHONDA ERAZO MD Ot K21. 9 GASTRO-ESOPHAGEAL REFLUX DISEASE WITHOUT 11/16/2019 RHONDA ERAZO MD Ot M54. 6 PAIN IN THORACIC SPINE 11/16/2019 RHONDA ERAZO MD Ot R40.2142 COMA SCALE, EYES OPEN, SPONTANEOUS, EMR 11/16/2019 RHONDA ERAZO MD Ot R40.2252 COMA SCALE, BEST VERBAL RESPONSE, ORIENT 11/16/2019 RHONDA ERAZO MD Ot R40.2362 COMA SCALE, BEST MOTOR RESPONSE, OBEYS C 11/16/2019 RHONDA ERAZO MD Ot S22.050A WEDGE COMPRESSION FRACTURE OF T5-T6 VERT 11/16/2019 RHONDA ERAZO MD Ot W10.9XXA FALL (ON) (FROM) UNSPECIFIED STAIRS AND 11/16/2019 RHONDA ERAZO MD Ot Z80. 0 FAMILY HISTORY OF MALIGNANT NEOPLASM OF 11/16/2019 RHONDA ERAZO MD Ot Z82. 49 FAMILY HX OF ISCHEM HEART DIS AND OTH DI 11/16/2019 RHONDA ERAZO MD J Ot Z88. 0 ALLERGY STATUS TO PENICILLIN Procedures Code Description Performed By Per formed On 79.15 CLOS ED RED-INT FIX FEMUR 07/24/2015 Results Test Result Range Acute hepatitis panel - 02/22/18 08:08 Confirmatory quantitative serum or plasm a hepatitis B virus surface antigen measurement Non-Reactive Non-Reactive Hepatitis A virus IgM antibody assay Non-Reactive Non- Reactive Hepatitis B virus core IgM antibody assay Non-Reac tive Non- Reactive Serum hepatitis C virus antibody detection Non-Peg ctive Non-Reactive [id number] - 03/31/18 00:00 [id number] Specimen held 5 days if further workup i s needed. NRG PARASITE COMPLETE EXAM STOOL - 03/31/18 00:00 PARASITE COMPLETE EXAM STOOL No Parasites seen NRG Complete blood count (CBC) with automate d white blood cell (WBC) differential - 03/31/18 21:25 Blood leukocytes automated count (number/volume) 6.0 10*3/uL 4.3-11.0 Blood erythrocytes automated count (number/volume) 5.11 10*6/uL 4.35-5.85 Venous blood hemoglobin measurement (mass/volume) 14.6 g/dL 13.3-17.7 Blood hematocrit (volume fraction) 41 % 40-54 Automated erythrocyte mean corpuscular volume 80 [ foz_us] 80-99 Automated erythrocyte mean corpuscular h emoglobin (mass per erythrocyte) 29 pg 25-34 Automated erythrocyte mean corpuscular h emoglobin concentration measurement (mass/volume) 36 g/dL 32-36 Automated erythrocyte distribution width ratio 15. 2 % 10.0- 14.5 Automated blood platelet count (count/volume) 352 10*3/uL 130-400 Automated blood platelet mean volume measurement 8.5 [foz_us] 7.4-10.4 Automated blood neutrophils/100 leukocytes 52 % 42-75 Automated blood lymphocytes/100 leukocytes 27 % 12-44 Blood monocytes/100 leukocytes 20 % 0-12 Automated blood eosinophils/100 leukocytes 1 % 0-10 Automated blood basophils/100 leukocytes 1 % 0-10 Blood neutrophils automated count (number/volume) 3.1 10*3 1.8-7.8 Blood lymphocytes automated count (number/volume) 1.6 10*3 1.0-4.0 Blood monocytes automated count (number/volume) 1. 2 10*3 0.0-1.0 Automated eosinophil count 0.1 10*3/uL 0 .0-0.3 Automated blood basophil count (count/volume) 0.0 10*3/uL 0.0-0.1 Blood lactic acid measurement (moles/vol ume) - 03/31/18 21:25 Blood lactic acid measurement (moles/volume) 1.11 mmol/L 0.50-2.00 Blood manual differential performed dete ction - 03/31/18 21:25 Blood monocytes/100 leukocytes 17 % NRG Manual blood segmented neutrophils/100 leukocytes 46 % NRG Blood band neutrophils/100 leukocytes 10 % NRG Manual blood lymphocytes/100 leukocytes 26 % NRG Manual eosinophils/100 leukocytes in nose 0 % NRG Manual blood basophils/100 leukocytes 1 % NRG Blood erythrocyte morphology finding identification NORMAL NRG Comprehensive metabolic panel - 03/31/18 21:25 Serum or plasma sodium measurement (moles/volume) 137 mmol/L 135-145 Serum or plasma potassium measurement (moles/volume) 3.5 mmol/L 3.6-5.0 Serum or plasma chloride measurement (moles/volume) 105 mmol/L 98-107 Carbon dioxide 18 mmol/L 21-32 Serum or plasma anion gap determination (moles/volume) 14 mmol/L 5-14 Serum or plasma urea nitrogen measurement (mass/volume ) 9 mg/dL 7-18 Serum or plasma creatinine measurement (mass/volume) 1.07 mg/dL 0.60-1.30 Serum or plasma urea nitrogen/creatinine mass ratio 8 NRG Serum or plasma creatinine measurement w ith calculation of estimated glomerular filtration rate > NRG Serum or plasma glucose measurement (mass/volume) 97 mg/dL 70-105 Serum or plasma calcium measurement (mass/volume) 9.1 mg/dL 8.5-10.1 Serum or plasma total bilirubin measurement (mass/volu me) 0.3 mg/dL 0.1-1.0 Serum or plasma alkaline phosphatase eamon surement (enzymatic activity/volume) 76 U/L 40-136 Serum or plasma aspartate aminotransfera se measurement (enzymatic activity/volume) 15 U/L 5-34 Serum or plasma alanine aminotransferase measurement (enzymatic activity/volume) 19 U/L 0-55 Serum or plasma protein measurement (mass/volume) 7.5 g/dL 6.4-8.2 Serum or plasma albumin measurement (mass/volume) 4.3 g/dL 3.2-4.5 Magnesium - 03/31/18 21:25 Magnesium 2.1 mg/dL 1.8-2.4 Serum or plasma amylase measurement (enz ymatic activity/volume) - 03/31/18 21:25 Serum or plasma amylase measurement (enzymatic activit y/volume) 65 U/L 25-125 Lipase - 03/31/18 21:25 Lipase 30 U/L 8-78 Bacterial blood culture - 03/31/18 21:25 Bacterial blood culture NG NRG Bacterial blood culture - 03/31/18 21:50 Bacterial blood culture NG NRG Complete urinalysis with reflex to cultu re - 03/31/18 22:14 Urine color determination YELLOW NRG Urine clarity determination CLEAR NR G Urine pH measurement by test strip 6 5-9 Specific gravity of urine by test strip 1.015 1.016-1.022 Urine protein assay by test strip, semi-quantitative 1+ NEGATIVE Urine glucose detection by automated test strip NE GATIVE NEGATIVE Erythrocytes detection in urine sediment by light micr oscopy NEGATIVE NEGATIVE Urine ketones detection by automated test strip 2+ NEGATIVE Urine nitrite detection by test strip NEGATIVE NEGATIVE Urine total bilirubin detection by test strip NEGA TIVE NEGATIVE Urine urobilinogen measurement by automated test strip (mass/volume) NORMAL NORMAL Urine leukocyte esterase detection by dipstick NEG ATIVE NEGATIVE Automated urine sediment erythrocyte cou nt by microscopy (number/high power field) NONE NRG Automated urine sediment leukocyte count by microscopy (number/high power field) RARE NRG Bacteria detection in urine sediment by light microsco py NEGATIVE NRG Squamous epithelial cells detection in u rine sediment by light microscopy 0-2 NRG Crystals detection in urine sediment by light microsco py NONE NRG Casts detection in urine sediment by light microscopy NONE NRG Mucus detection in urine sediment by light microscopy NEGATIVE NRG Complete urinalysis with reflex to culture NO NRG C DIFFICILE AG + TOXIN A/B. - 03/31/18 2 3:23 RESULTS NEGATIVE FOR ANTIGEN AND TOXIN A/B NRG Stool leukocytes detection by light micr oscopy - 03/31/18 23:23 FECAL WBC RESULTS FEW WBC'S OBSERVED ON DIRECT SME AR NRG FECAL NOTE FECAL LEUKOCYTES MAY BE INTE RMITTENTLY PRESENT OR NRG FECAL NOTE UNEVENLY DISTRIBUTED IN STOO L SPECIMENS, AND WBC NRG FECAL NOTE MORPHOLOGY DEGRADES DURING TRANSPORT NRG FECAL NOTE NOTE: NRG Stool bacteria identification by culture - 03/31/18 23:23 QUANTITY OF GROWTH Isolated NRG Stool bacteria identification by culture [id number] NRG NOT CULTURED VIBRIOTYERS VIBRIO AND YERSINIA NOT ROUTINELY CULTURED FOR IN THIS LAB NRG NEGATIVE FOR 0157 NEGATIVE FOR E COLI 0157 NRG NEGATIVE FOR SHIGELLA NEGATIVE FOR SHIGELLA NRG NEGATIVE FOR SALMONELLA NEGATIVE FOR SALMONELLA NRG Encounters ACCT No. Visit Date/Time Discharge Status Pt. 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 [facility] CARD HYPOTHYROIDISM [id number] 01/22/2019 07:18:00 23:59:59 CLS Outpatient TAN REBOLLEDO MD, FACC, FACP CC DS [facility] CARD SOB, TIREDN ESS, BACK PAIN, CHEWING TOBACCO USE [id number] 01/18/2019 08:04:00 23:59:59 CLS Outpatient TAN REBOLLEDO MD, FACC, FACP CC DS [facility] SOB, TIREDN ESS, BACK PAIN, CHEWING TOBACCO USE [id number] 01/16/2019 12:25:00 23:59:59 CLS Preadmit TAN REBOLLEDO MD, FACC, FACP CCDS [facility] CARD SOB, TIREDNESS, BACK PAIN, CHEWING TOBACCO USE [id number] 01/14/2019 12:49:00 019 23:59:59 CLS Outpatient 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 [facility] RAD HYPOTHYROIDISM [id number] 08/09/2018 21:00:00 018 23:59:59 CLS Outpatient JOSE JARA 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 [facility] SLEEP OBSTRUCTIVE SLE EP APNEA [id number] 03/31/2018 20:14:00 018 00:25:00 DIS Emergency ERNESTINE VILCHIS DO [facility] ER N/V/D WITH FEVER [id number] 03/16/2018 15:00:00 018 15:42:00 DIS Outpatient JYOTI IVORY [facility] SLEEP HYPERSOMNIA [id number] 02/22/2018 07:52:00 018 23:59:59 CLS Outpatient JYOTI IVORY [facility] RAD ELEVATED LIVER ENZYMES [id number] 01/19/2018 12:30:00 018 23:59:59 CLS Outpatient SUDEEP GREENE MD [facility] SDC IRON DEF ANEMIA [id number] 08/24/2016 10:03:00 016 23:59:59 CLS Outpatient JYOTI IVORY [facility] RAD L SHOULDER EL LARRY PAIN [id number] 04/28/2016 15:04:00 016 17:48:00 DIS Emergency ERNESTINE VILCHIS DO [facility] ER BACK/SHOULDER/ABD/CHEST PAIN [id number] 02/17/2016 17:38:00 016 18:40:00 DIS Emergency RADHA BRITTON MD [facility] ER FOREIGN BODY IN EYE [id number] 07/23/2015 22:42:00 015 09:35:00 DIS Inpatient HEATHER SYKES DO [facility] SURGICAL R HIP FX [id number] 02/17/2015 08:53:00 015 23:59:59 CLS Outpatient MARI SANTIAGO ADELSO Melton [facility] RAD RADICULOPATHY [id number] 01/15/2015 08:30:00 23:59:59 CLS Outpatient FANNY WOOD MD [facility] RAD POST LAMINECTOMY SYNDRO ME [id number] 01/07/2015 12:19:00 23:59:59 CLS Outpatient FANNY WOOD MD [facility] RAD RECENT FALL, LT HIP ANA N [id number] 01/05/2015 11:54:00 14:33:00 DIS Emergency RADHA BRITTON MD [facility] ER FALL/BACK PAIN [id number] 12/01/2014 13:07:00 14:06:00 DIS Outpatient FANNY WOOD MD [facility] CARD LUMBAR SPONDYLOSIS,SIJD [id number] 09/30/2014 07:58:00 014 12:35:00 DIS Outpatient ASHLEY HORNE MD [facility] SDC SCREENING [id number] 09/29/2014 10:23:00 014 23:59:59 CLS Outpatient ASHLEY HORNE MD [facility] PREOP SCREENING [id number] 08/29/2014 08:04:00 014 08:57:00 DIS Outpatient FANNY WOOD MD [facility] CARD LUMBAR SPONDYLOSIS [id number] 08/26/2014 11:31:00 014 23:59:59 CLS Outpatient FANNY WOOD MD [facility] RAD LUMBAGO [id number] 07/25/2014 09:27:00 014 10:22:00 DIS Outpatient FANNY WOOD MD [facility] CARD SIJD [id number] 07/14/2014 13:08:00 014 14:06:00 DIS Outpatient FANNY WOOD MD [facility] CARD LUMBAR SPONDOLYOSIS [id number] 06/02/2014 11:57:00 23:59:59 CLS Outpatient GURINDER MELENDEZ MD [facility] RAD POSITIVE D-DIME R [id number] 05/05/2014 12:11:00 014 13:26:00 DIS Outpatient FANNY WOOD MD [facility] CARD LUMBAR SPONDYLOSIS [id number] 02/28/2014 08:45:00 014 09:45:00 DIS Outpatient FANNY WOOD MD [facility] LUMBAR SPONDYLOSIS [id number] 02/04/2014 09:30:00 17:00:00 DIS Outpatient FANNY WOOD MD [facility] REHAB DDD LUMBAR DISORDER OF SI JOINT [id number] 12/05/2013 10:54:00 014 00:01:00 DIS Outpatient FANNY WOOD MD [facility] REHAB DDD LUMBAR DISORDER OF SI JOINT [id number] 12/13/2013 08:14:00 014 09:13:00 DIS Outpatient FANNY WOOD MD [facility] CARD COXYDENIA [id number] 11/15/2013 08:17:00 08:58:00 DIS Outpatient FANNY WOOD MD [facility] CARD SI DYSFUNCTION [id number] 08/19/2013 10:48:00 23:59:59 CLS Outpatient FANNY WOOD MD [facility] 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
--- OUTSIDE RECORDS SUMMARY | 2020-03-17 15:20 | XMS REPORT | CCD ---
Author Author Thai Castillo Organization Sara Jacobo MD, [facility] Address [address] [place] [address] Phone Care Team Providers Care Instructional Developer Name Role Phone PP Unavailable CCM Unavailable Summary Purpose Interface Exchange Insurance Providers Payer name Policy type / Coverage type Covered constitution party ID Effective Begin Date Effective End Date WPS Medicare Part B Medicare Part B [id number] Unknown Unknown [facility] icare Part B [id number] Unknown Unk nown Family history Father Diagnosis Age At Onset Colon cancer Unknown Social History Social History Element Codes Description Effective Dates Marital status Unknown D ivorced 04/23/[address]: 676899928 Never smoker 04/23/[address]: 844418 Currently drinks alcohol occasionally drinks 04/23/2015 Allergies, [...] Date Stop Date Sta tus Fill Instructions Tamiflu 75 mg capsule RxNorm: 595983 1 Capsule(s) PO BID 12/27/2017 12/31/2017 Active Tamiflu 75 mg capsule RxNorm: 083785 1 Capsule(s) PO BID 12/27/2017 12/26/2017 Inactive tizanidine 4 mg tablet RxNorm: 804626 1 Tablet(s) PO TID as needed 12/25/2017 03/24/2018 Active levothyroxine 175 mc g tablet RxNorm: 962090 1 Tablet(s) PO daily 12/14/2017 04/12/2018 Active levothyroxine 175 mc g tablet RxNorm: 268565 1 Tablet(s) PO daily 12/14/2017 12/13/2017 Inactive baclofen 10 mg tablet RxNorm: 301205 Tablet(s) TAKE ONE TABLET BY MOUTH THREE TIMES A DAY NEEDED 12/13/2017 01/11/2018 Active baclofen 10 mg tablet RxNorm: 448778 TAKE ONE TABLET BY MOUTH THREE TIMES A D AY NEEDED 12/13/2017 12/12/2017 Inactive morphine 30 mg table t, crush resistant, extended release RxNorm: 5200462 1 Tablet(s) PO BID 12/12/2017 02/09/2018 Active clonazepam 1 mg tablet RxNorm: 774683 1/2 Tablet(s) PO daily 12/01/2017 08/27/2018 Active trazodone 50 mg tablet RxNorm: 522575 1/2 to 1 Tablet(s) QHS as needed 12/01/2017 03/30/2018 Ac tive Opana ER 15 mg table t, crush resistant, extended release RxNorm: 622115 1 Tablet(s) PO Q12H 12/01/2017 02/28/2018 Active oxymorphone 5 mg tablet RxNorm: 834334 1 Tablet(s) PO Q6 PRN 12/01/2017 02/28/2018 Active Remeron 15 mg tablet RxNorm: 106650 Tablet(s) TAKE ONE TABLET BY MOUTH EVERY NIGHT AT BEDTIME 12/01/2017 02/28/2018 Active trazodone 50 mg tablet RxNorm: 328836 1/2 Tablet(s) as needed 1 Tablet(s) PO Q HS 12/01/2017 11/30/2017 In active clonazepam 1 mg tablet RxNorm: 552987 1/2 Tablet(s) PO daily 11/30/2017 11/30/2017 Inactive Remeron 15 mg tablet RxNorm: 508994 TAKE ONE TABLET BY MOUTH EVERY NIGHT AT BEDTIME 11/29/2017 11/30/2017 Inactive levothyroxine 200 mc g tablet RxNorm: 893001 TAKE ONE TABLET BY [facility] DAILY 11/15/2017 12/13/2017 In active diclofenac sodium 75 mg tablet,delayed release RxNorm: 380038 1 Tablet(s) PO BID 11/07/2017 05/05/2018 Ac tive baclofen 10 mg tablet RxNorm: 662969 TAKE ONE TABLET BY MOUTH THREE TIMES A D AY NEEDED 11/07/2017 12/06/2017 Inactive liothyronine 5 mcg t ablet RxNorm: 729822 TAKE ONE TABLET BY MO [facility] DAILY 10/27/2017 07/23/2018 Ac tive tizanidine 4 mg tablet RxNorm: 679293 1 Tablet(s) PO TID as needed 10/18/2017 12/16/2017 Inactive oxymorphone 5 mg tablet RxNorm: 806800 1 Tablet(s) PO Q6 PRN 09/29/2017 11/27/2017 Inactive morphine 30 mg table t, crush resistant, extended release RxNorm: 1708296 1 Tablet(s) PO BID 09/29/2017 11/28/2017 Inactive baclofen 10 mg tablet RxNorm: 525015 1 Tablet(s) PO TID as needed 09/11/2017 10/10/2017 Inactive baclofen 10 mg tablet RxNorm: 260926 1 Tablet(s) PO TID as needed 08/11/2017 09/09/2017 Inactive Opana ER 15 mg table t, crush resistant, extended release RxNorm: 571987 1 Tablet(s) PO Q12H 08/11/2017 09/28/2017 Inactive Remeron 15 mg tablet RxNorm: 269908 TAKE ONE TABLET BY MOUTH EVERY NIGHT AT BEDTIME 08/02/2017 10/30/2017 Inactive oxymorphone 5 mg tablet RxNorm: 214042 1 Tablet(s) PO Q6 PRN 08/02/2017 09/28/2017 Inactive Opana ER 5 mg tablet , crush resistant, extended release RxNorm: 570324 1 Tablet(s) PO Q6 PRN 08/01/2017 08/10/2017 Inactive Protonix 40 mg table t,delayed release RxNorm: 237768 TAKE ONE TABLET BY [facility] DAILY 06/26/2017 10/23/2017 In active Protonix 40 mg table t,delayed release RxNorm: 183862 TAKE ONE TABLET BY [facility] DAILY 06/26/2017 06/25/2017 In active bupropion HCl XL 300 mg 24 hr tablet, extended release RxNorm: 588868 TAKE ONE TABLET BY MOUTH DAILY 06/13/2017 12/09/2017 Inactive tizanidine 4 mg tablet RxNorm: 220472 1 Tablet(s) PO TID as needed 06/13/2017 06/12/2017 Inactive tizanidine 4 mg tablet RxNorm: 388396 1 Tablet(s) PO TID as needed 06/13/2017 09/10/2017 Inactive baclofen 10 mg tablet RxNorm: 351837 1 Tablet(s) PO TID as needed 06/13/2017 07/12/2017 Inactive Opana ER 15 mg table t, crush resistant, extended release RxNorm: 364315 1 Tablet(s) PO Q12H 06/09/2017 08/07/2017 Inactive Opana ER 5 mg tablet , crush resistant, extended release RxNorm: 538707 1 Tablet(s) PO Q6 PRN 06/09/2017 07/31/2017 Inactive diclofenac sodium 75 mg tablet,delayed release RxNorm: 500955 1 Tablet(s) PO BID 06/09/2017 09/06/2017 In active clonazepam 1 mg tablet RxNorm: 168332 1/2 Tablet(s) PO daily 05/24/2017 11/18/2017 Inactive bupropion HCl XL 300 mg 24 hr tablet, extended release RxNorm: 375637 TAKE ONE TABLET BY MOUTH DAILY 03/16/2017 06/12/2017 Inactive clonazepam 1 mg tablet RxNorm: 146693 1/2 Tablet(s) PO daily 02/22/2017 05/18/2017 Inactive Remeron 15 mg tablet RxNorm: 633024 TAKE ONE TABLET BY MOUTH EVERY NIGHT AT BEDTIME 02/06/2017 2017 Inactive Protonix 40 mg table t,delayed release RxNorm: 342073 TAKE ONE TABLET BY MO [facility] DAILY 01/26/2017 06/24/2017 In active mupirocin 2 % topica l ointment RxNorm: 227351 1 Application TOP BID 01/12/2017 01/18/2017 Inactive Bactrim DS 800 mg-16 0 mg tablet RxNorm: 079414 1 Tablet(s) PO BID 11/17/2016 11/23/2016 Inactive mupirocin 2 % topica l ointment RxNorm: 554710 1 Application TOP BID 11/10/2016 11/16/2016 Inactive Bactrim DS 800 mg-16 0 mg tablet RxNorm: 378041 1 Tablet(s) PO BID 11/10/2016 11/16/2016 Inactive bupropion HCl XL 300 mg 24 hr tablet, extended release RxNorm: 143570 TAKE ONE TABLET BY MOUTH DAILY 11/07/2016 03/06/2017 Inactive liothyronine 5 mcg t ablet RxNorm: 293445 1 Tablet(s) PO daily 11/01/2016 10/26/2017 Inactive levothyroxine 200 mc g tablet RxNorm: 604152 1 Tablet(s) PO daily 10/04/2016 09/28/2017 Inactive clonazepam 1 mg tablet RxNorm: 216161 1/2 Tablet(s) PO daily 09/21/2016 03/18/2017 Inactive clonazepam 1 mg tablet RxNorm: 368297 1/2 Tablet(s) PO daily 09/16/2016 09/20/2016 Inactive Abilify 2 mg tablet RxNorm: 078379 1 Tablet(s) PO daily 09/16/2016 10/13/2016 Inactive trazodone 50 mg tablet RxNorm: 723728 1/2 Tablet(s) as needed 1 Tablet(s) PO Q HS 09/16/2016 01/13/2017 In active morphine 15 mg immed iate release tablet RxNorm: 222387 1 Tablet(s) PO Q6 PRN 09/16/2016 04/06/2017 In active baclofen 10 mg tablet RxNorm: 272713 1 Tablet(s) PO TID as needed 09/16/2016 06/12/2017 Inactive MS Contin 30 mg tabl et,extended release RxNorm: 499258 1 Tablet(s) PO Q12H 09/16/2016 04/06/2017 In active Remeron 15 mg tablet RxNorm: 100198 1 Tablet(s) PO QHS 08/19/2016 09/15/2016 Inactive levothyroxine 200 mc g tablet RxNorm: 267265 1 Tablet(s) PO daily 08/11/2016 10/03/2016 Inactive bupropion HCl XL 300 mg 24 hr tablet, extended release RxNorm: 548355 TAKE ONE TABLET BY MOUTH DAILY 08/11/2016 11/06/2016 Inactive Protonix 40 mg table t,delayed release RxNorm: 332082 1 Tablet(s) PO daily 06/17/2016 12/13/2016 In active bupropion HCl XL 300 mg 24 hr tablet, extended release RxNorm: 869962 1 Tablet(s) PO daily 05/12/2016 07/10/2016 Inactive bupropion HCl XL 300 mg 24 hr tablet, extended release RxNorm: 076757 1 Tablet(s) PO daily 05/12/2016 05/11/2016 Inactive Cialis 20 mg tablet RxNorm: 364558 1 Tablet(s) PO PRN 02/16/2016 No Stop Date Active not more than 1 tab in 24 hours morphine ER 10 mg ca psule,extended release pellets RxNorm: 185708 1 Tablet(s) PO Q6 as needed 02/16/2016 11/16/2016 Inactive clonazepam 1 mg tablet RxNorm: 483550 1/2 Tablet(s) PO BID 02/16/2016 09/15/2016 Inactive trazodone 50 mg tablet RxNorm: 398627 1/2 Tablet(s) as needed 1 Tablet(s) PO Q HS 02/16/2016 08/18/2016 In active trazodone 50 mg tablet RxNorm: 901352 1/2 Tablet(s) 1 Tablet(s) PO QHS 11/17/2015 02/15/2016 In active trazodone 50 mg tablet RxNorm: 707065 1 Tablet(s) PO QHS 10/19/2015 11/16/2015 Inactive levothyroxine 200 mc g tablet RxNorm: 211771 1 Tablet(s) PO daily 10/02/2015 08/10/2016 Inactive Wellbutrin XL 150 mg 24 hr tablet, extended release RxNorm: 063375 1 Tablet(s) PO daily 10/02/2015 05/11/2016 Inactive levothyroxine 200 mc g tablet RxNorm: 212879 1 Tablet(s) PO daily 09/30/2015 10/01/2015 Inactive Wellbutrin XL 150 mg 24 hr tablet, extended release RxNorm: 839303 1 Tablet(s) PO daily 09/30/2015 10/01/2015 Inactive trazodone 50 mg tablet RxNorm: 443567 1 Tablet(s) PO QHS 09/11/2015 10/10/2015 Inactive trazodone 50 mg tablet RxNorm: 169401 1 Tablet(s) PO QHS 09/11/2015 09/10/2015 Inactive Cymbalta 30 mg capsu le,delayed release RxNorm: 752847 1 Capsule(s) PO daily 09/07/2015 11/16/2015 In active Cymbalta 60 mg capsu le,delayed release RxNorm: 434391 1 Capsule(s) PO daily 08/31/2015 08/30/2015 In active Cymbalta 30 mg capsu le,delayed release RxNorm: 477780 1 Capsule(s) PO daily take with 60mg to make 90 mg daily 08/31/2015 09/06/2015 Inactive Cymbalta 30 mg capsu le,delayed release RxNorm: 368927 1 Capsule(s) PO daily take with 60mg to make 90 mg daily 08/31/2015 08/30/2015 Inactive Cymbalta 60 mg capsu le,delayed release RxNorm: 422093 1 Capsule(s) PO daily x 7 days and then increase to 90mg daily 08/31/2015 09/07/2015 Inactive levothyroxine 200 mc g tablet RxNorm: 751780 1 Tablet(s) PO daily 08/14/2015 09/29/2015 Inactive Wellbutrin XL 150 mg 24 hr tablet, extended release RxNorm: 739081 1 Tablet(s) PO daily 07/14/2015 09/29/2015 Inactive Cialis 20 mg tablet RxNorm: 032009 1 Tablet(s) PO PRN 07/02/2015 02/15/2016 Inactive not more than 1 tab in 24 hours liothyronine 5 mcg t ablet RxNorm: 199867 1 Tablet(s) PO daily 2015 05/29/2016 Inactive clonazepam 1 mg tablet RxNorm: 488361 1 Tablet(s) PO TID 2015 02/15/2016 Inactive minocycline 50 mg ta blet RxNorm: 030169 1 Tablet(s) PO daily 2015 05/11/2016 Inactive Wellbutrin XL 150 mg 24 hr tablet, extended release RxNorm: 734337 1 Tablet(s) PO daily 04/23/2015 07/13/2015 Inactive levothyroxine 200 mc g tablet RxNorm: 199076 1 Tablet(s) PO daily 04/23/2015 08/13/2015 Inactive diclofenac oral RxNorm: 3355 oral No Start Date Active Aleve oral RxNorm: 682911 oral No Start Date Active Tylenol 500 mg RxNorm: oral No Start Date Active morphine ER 15 mg ta blet,extended release RxNorm: 500303 oral No Start Date 11/16/2016 Inactive Trazadone 25 mg RxNorm: 2 PO daily No Start Date 09/11/2015 Inactive clonazepam 1 mg tablet RxNorm: 433802 1 Tablet(s) PO QHS No Start Date 06/04/2015 Inactive Wellbutrin XL 150 mg 24 hr tablet, extended release RxNorm: 576816 1 Tablet(s) PO daily No Start Date 04/22/2015 Inactive minocycline 50 mg ta blet RxNorm: 865675 1 Tablet(s) PO daily No Start Date 06/04/2015 Inactive methadone 5 mg tablet RxNorm: 447943 1 Tablet(s) PO Q8 No Start Date 02/15/2016 Inactive Protonix 40 mg table t,delayed release RxNorm: 066751 Tablet(s) PO daily No Start Date 06/16/2016 Inactive Opana ER 15 mg table t, crush resistant, extended release RxNorm: 070902 1 Tablet(s) PO Q12H No Start Date 06/08/2017 Inactive MS Contin 30 mg tabl et,extended release RxNorm: 392973 1 Tablet(s) PO Q12H No Start Date 02/15/2016 Inactive Opana ER 15 mg table t, crush resistant, extended release RxNorm: 272945 1 Tablet(s) PO BID No Start Date 09/15/2016 Inactive liothyronine 5 mcg t ablet RxNorm: 092380 1 Tablet(s) PO daily No Start Date 06/04/2015 Inactive Cialis 20 mg tablet RxNorm: 543297 1 Tablet(s) PO PRN No Start Date 07/01/2015 Inactive not more than 1 tab in 24 hours baclofen 10 mg tablet RxNorm: 755067 1 Tablet(s) PO TID as needed No Start Date 05/11/2016 Inactive morphine 15 mg immed iate release tablet RxNorm: 796033 1 Tablet(s) PO Q6 PRN as needed No Start Date 02/15/2016 Inactive levothyroxine 200 mc g tablet RxNorm: 138052 1 Tablet(s) PO daily No Start Date 04/22/2015 Inactive Opana ER 5 mg tablet , crush resistant, extended release RxNorm: 225636 1 Tablet(s) PO Q6 No Start Date [...] Ord40 Fe-%Sat 7.1 % 12/06/2017 Free T4 Gan193 FREE T4 1.82 ng/dL 12/01/2017 Tsh Ord6 [...] 27.0 pg 12/01/2017 Cbc With Differential Ord2 Hardin% 10.6 % 12/01/2017 Cbc With Differential Ord2 [...] 1.92 K/ul 12/01/2017 Cbc With Differential Ord2 Hardin ABS# 0.4 K/ul 12/01/2017 Cbc With Differential Ord2 Eos ABS# 0.2 K/ul 12/01/2017 Cbc With Differential Ord2 Baso ABS# 0.0 K/ul 12/01/2017 Comp Metabolic Opi345 NA 136 mEq/L 12/01/2017 Comp Metabolic Pmi908 K 4.6 mEq/L 12/01/2017 Comp Metabolic Jwf389 CL 102 mEq/L 12/01/2017 Comp Metabolic Fye239 CO2 27.0 mEq/L 12/01/2017 Comp Metabolic Obb971 AN ION GAP 12 12/01/2017 Comp Metabolic Joa217 GL UCOSE 90 mg/dL 12/01/2017 Comp Metabolic Xsl246 Cr eat 0.7 mg/dL 12/01/2017 Comp Metabolic Ubo446 eG FR 123 ml/min/1.73m2 03/2018 Comp Metabolic Gic488 BUN 4 mg/dL 12/01/2017 Comp Metabolic Wox081 B/ C Ratio 5.6 Ratio 12/01/2017 Comp Metabolic Bvy268 CA LCIUM 9.0 mg/dL 12/01/2017 Comp Metabolic Ncz791 AL K PHOS 67 U/L 12/01/2017 Comp Metabolic Zcc553 T(SGOT) 30 U/L 12/01/2017 Comp Metabolic Pym003 AL T(SGPT) 29 U/L 12/01/2017 Comp Metabolic Giw456 BI LI T 0.3 mg/dL 12/01/2017 Comp Metabolic Rmf970 AL BUMIN 4.1 g/dL 12/01/2017 Comp Metabolic Pml762 TP RO 6.1 g/dL 12/01/2017 Comp Metabolic Qdy529 GL OB 2.0 g/dL 12/01/2017 Comp Metabolic Fgj590 A/ G Ratio 2.0 Ratio 12/01/2017 Comp Metabolic Wcw446 Os mo 268 mOsmo 12/01/2017 Comp Metabolic Syl281 NA 136 mEq/L 02/16/2016 Comp Metabolic Xzq190 K 4.2 mEq/L 02/16/2016 Comp Metabolic Yvv789 CL 104 mEq/L 02/16/2016 Comp Metabolic Mbp426 CO2 20.0 mEq/L 02/16/2016 Comp Metabolic Zhy480 AN ION GAP 16 02/16/2016 Comp Metabolic Lob146 GL UCOSE 71 mg/dL 02/16/2016 Comp Metabolic Xbi881 Cr eat 0.8 mg/dL 02/16/2016 Comp Metabolic Mdw426 eG FR 113 ml/min/1.73m2 01/26 Comp Metabolic Abz640 BUN 7 mg/dL 02/16/2016 Comp Metabolic Acd397 B/ C Ratio 9.1 Ratio 02/16/2016 Comp Metabolic Epi261 CA LCIUM 9.4 mg/dL 02/16/2016 Comp Metabolic Vzj085 AL K PHOS 57 U/L 02/16/2016 Comp Metabolic Qgl785 T(SGOT) 30 U/L 02/16/2016 Comp Metabolic Coz168 AL T(SGPT) 27 U/L 02/16/2016 Comp Metabolic Eaa171 BI LI T 0.2 mg/dL 02/16/2016 Comp Metabolic Yth948 AL BUMIN 4.4 g/dL 02/16/2016 Comp Metabolic Mbb236 TP RO 6.5 g/dL 02/16/2016 Comp Metabolic Nsh811 GL OB 2.1 g/dL 02/16/2016 Comp Metabolic Cxr049 A/ G Ratio 2.1 Ratio 02/16/2016 Comp Metabolic Pkm154 Os mo 268 mOsmo 02/16/2016 Free T4 Rpj667 FREE T4 1.20 ng/dL 02/16/2016 Cbc With [...] 90.6 fl 02/16/2016 Cbc With Differential Ord2 Hardin% 9.6 % 02/16/2016 Cbc With Differential Ord2 [...] 1.50 K/ul 02/16/2016 Cbc With Differential Ord2 Hardin ABS# 0.5 K/ul 02/16/2016 Cbc With Differential [...] 1: 132/72 Code: 8480-6 BMI: 33.4 Code: 82794-8 Heart Rate 1: 82 bpm Height: 5'6" SpO2: 97% Weight: 207 lbs 09/29/2017 Blood Pressure 1: 124/68 Code: 8480-6 BMI: 32.1 Code: 51464-9 Heart Rate 1: 77 bpm Height: 5'6" SpO2: 98% Weight: 199 lbs 08/11/2017 Blood Pressure 1: 154/82 Code: 8480-6 BMI: 31.6 Code: 34806-2 Heart Rate 1: 75 bpm Height: 5'6" SpO2: 98% Weight: 196 lbs 06/09/2017 Blood Pressure 1: 148/88 Code: 8480-6 BMI: 28.6 Code: 08608-6 Heart Rate 1: 88 bpm Height: 5'6" SpO2: 98% Weight: 177 lbs 04/07/2017 Blood Pressure 1: 140/84 Code: 8480-6 BMI: 30.3 Code: 43871-8 Heart Rate 1: 81 bpm Height: 5'6" SpO2: 99% Weight: 188 lbs 11/17/2016 Blood Pressure 1: 130/72 Code: 8480-6 Heart Rate 1: 63 bpm Height: SpO2: 93% Weight: 11/10/2016 Blood Pressure 1: 128/86 Code: 8480-6 BMI: 30.3 Code: 95999-2 Heart Rate 1: 84 bpm Height: 5'6" SpO2: 96% Weight: 188 lbs 10/14/2016 Heigh t: 5'6" 09/16/2016 Blood Pressure 1: 130/80 Code: 8480-6 BMI: 30.3 Code: 29599-6 Heart Rate 1: 67 bpm Height: 5'6" SpO2: 99% Weight: 188 lbs 08/19/2016 Blood Pressure 1: 110/62 Code: 8480-6 BMI: 29.9 Code: 78028-4 Heart Rate 1: 70 bpm Height: 5'6" SpO2: 97% Weight: 185 lbs 06/17/2016 Blood Pressure 1: 112/68 Code: 8480-6 BMI: 27.6 Code: 96523-0 Heart Rate 1: 61 bpm Height: 5'6" SpO2: 98% Weight: 171 lbs 05/12/2016 Blood Pressure 1: 130/76 Code: 8480-6 BMI: 29.7 Code: 55364-9 Heart Rate 1: 103 bpm Height: 5'6" SpO2: 98% Weight: 184 lbs 02/16/2016 Blood Pressure 1: 140/82 Code: 8480-6 BMI: 28.7 Code: 96717-0 Heart Rate 1: 66 bpm Height: 5'6" SpO2: 99% Weight: 178 lbs 11/17/2015 Blood Pressure 1: 120/74 Code: 8480-6 BMI: 29.4 Code: 97025-2 Heart Rate 1: 90 bpm Height: 5'6" SpO2: 94% Weight: 182 lbs 08/28/2015 Blood Pressure 1: 128/76 Code: 8480-6 BMI: 27.9 Code: 42218-3 Heart Rate 1: 80 bpm Height: 5'6" SpO2: 98% Weight: 173 lbs 05/28/2015 Blood Pressure 1: 122/70 Code: 8480-6 BMI: 27.0 Code: 08635-5 Heart Rate 1: 74 bpm Height: 5'6" SpO2: 98% Weight: 167 lbs 04/23/2015 Blood Pressure 1: 110/60 Code: 8480-6 BMI: 27.0 Code: 37111-3 Heart Rate 1: 68 bpm Height: 5'6" [...] Encounters Encounter Performer Loca tion Codes Date 97214 EST. PATIENT, LEVEL IV Diagnosis: Other specified hypothyroidism[ICD10: E03.8] Diagnosis: Chronic pain syndrome[ICD10: G89.4] Diagnosis: Major depressive disorder, recurrent, moderate[ICD10: F33.1] Denae Jacobo MD, [facility] CPT-4: 03345 12/01/2017 ([id number]) 52648 EST. P ATIENT, LEVEL IV Diagnosis: Chronic pain syndrome[ICD10: G89.4] Diagnosis: Alcohol dependence, uncomplicated[ICD10: F10.20] Diagnosis: Major depressive disorder, recurrent, moderate[ICD10: F33.1] Leydi Jacobo MD, [facility] CPT-4: 92036 09/29/2017 ([id number]) 86975 EST. P ATIENT, LEVEL IV Diagnosis: Chronic pain syndrome[ICD10: G89.4] Diagnosis: Alcohol dependence, uncomplicated[ICD10: F10.20] Diagnosis: Major depressive disorder, recurrent, moderate[ICD10: F33.1] Leydi Jacobo MD, [facility] CPT-4: 88896 08/11/2017 ([id number]) 23428 EST. P ATIENT, LEVEL III Diagnosis: Chronic pain syndrome[ICD10: G89.4] Diagnosis: Major depressive disorder, recurrent, moderate[ICD10: F33.1] Leydi Jacobo MD, [facility] CPT-4: 70662 06/09/2017 ([id number]) 03822 EST. P ATIENT, LEVEL III Diagnosis: Chronic pain syndrome[ICD10: G89.4] Diagnosis: Pain in left knee[ICD10: M25.562] Leydi Jacobo MD, [facility] CPT- 4: 10202 04/07/2017 [id number] EST. PATIENT, LEVEL II Diagnosis: Superficial foreign body of left upper arm, initial encounter[ICD10: S40.852A] Diagnosis: Cellulitis of left upper limb[ICD10: L03.114] Leydi Jacobo MD, [facility] CPT-4: 83563 11/17/2016 [id number] EST. PATIENT, LEVEL II Diagnosis: Cellulitis of left upper limb[ICD10: L03.114] Leydi Jacobo MD, [facility] CPT-4: 09599 11/10/2016 ([id number]) 26731 EST. P ATIENT, LEVEL III Diagnosis: Chronic pain syndrome[ICD10: G89.4] Diagnosis: Major depressive disorder, recurrent, moderate[ICD10: F33.1] Leydi Jacobo MD, [facility] CPT-4: 23578 10/14/2016 [id number] EST. PATIENT, LEVEL IV Diagnosis: Psychophysiologic insomnia[ICD10: F51.04] Diagnosis: Major depressive disorder, recurrent, moderate[ICD10: F33.1] Diagnosis: Alcohol dependence, uncomplicated[ICD10: F10.20] Diagnosis: Chronic pain syndrome[ICD10: G89.4] Leydi Jacobo MD, [facility] CPT-4: 06527 09/16/2016 ([id number]) 10099 EST. P ATIENT, LEVEL III Diagnosis: Pain in left shoulder[ICD10: M25.512] Diagnosis: Major depressive disorder, recurrent, moderate[ICD10: F33.1] Diagnosis: Psychophysiologic insomnia[ICD10: F51.04] eLydi Jacobo MD, [facility] CPT-4: 00329 08/19/2016 ([id number]) 93513 EST. P ATIENT, LEVEL III Diagnosis: Gastro-esophageal reflux disease without esophagitis[ICD10: K21.9] Diagnosis: Hypothyroidism, unspecified[ICD10: E03.9] Leydi Jacobo MD, [facility] CPT-4: 48432 06/17/2016 ([id number]) 86404 EST. P ATIENT, LEVEL IV Diagnosis: Gastro-esophageal reflux disease without esophagitis[ICD10: K21.9] Diagnosis: Hypothyroidism, unspecified[ICD10: E03.9] Diagnosis: Major depressive disorder, recurrent, moderate[ICD10: F33.1] Leydi Jacobo MD, [facility] CPT-4: 60543 05/12/2016 ([id number]) 22506 EST. P ATIENT, LEVEL III Diagnosis: Cervicalgia[ICD10: M54.2] Diagnosis: Hypothyroidism, unspecified[ICD10: E03.9] Diagnosis: Other male erectile dysfunction[ICD10: N52.8] Leydi Jacobo MD, [facility] CPT-4: 42728 02/16/2016 ([id number]) 26426 EST. P ATIENT, LEVEL III Diagnosis: Lumbago with sciatica, unspecified side[ICD10: M54.40] Diagnosis: Other male erectile dysfunction[ICD10: N52.8] Leydi Jacobo MD, [facility] CPT-4: 37309 11/17/2015 ([id number]) 84481 EST. P ATIENT, LEVEL III Diagnosis: Lumbago with sciatica, unspecified side[ICD10: M54.40] Diagnosis: Hypothyroidism, unspecified[ICD10: E03.9] Diagnosis: Other male erectile dysfunction[ICD10: N52.8] Leydi Jacobo MD, [facility] CPT-4: 90157 08/28/2015 ([id number]) 52793 EST. P ATIENT, LEVEL III Diagnosis: Back pain, chronic[ICD9: 724.5] Diagnosis: Depression[ICD9: 311] Diagnosis: Hypothyroid[ICD9: 244.9] Diagnosis: Bilateral calf pain[ICD9: 729.5] Julieta Jacobo MD, [facility] CPT-4: 23404 05/28/2015 ([id number]) OFFICE VISI T, NEW - LEVEL 4 Diagnosis: Back pain, chronic[ICD9: 724.5] Diagnosis: Depression[ICD9: 311] Diagnosis: Hypothyroid[ICD9: 244.9] [facility] CPT-4: 90694 04/23/2015 Plan of Care Planned Activity Notes [...] of control. 12/01/2017 Appointment: Denae Martínez WPtel: [facility] (30 min) Complex 12/01/2017 Patient Education: [...] treatment 09/29/2017 [facility]ment[facility] [phone] [phone] ([facility] Complex 09/29/2017 Patient Education: [...] cons ider 08/11/2017 Appointment: Leydi Hightower WPtel: [address] [phone] (30 min) Complex 08/11/2017 Patient Education: [...] current medications. 06/09/2017 Appointment: Leydi Hightower [facility]Ptel[phone] ([facility] min) Complex [...] completely resolve 11/17/2016 Appointment: Leydi Hightower WPtel: [address] [place] [address] (30 min) Complex 11/17/2016 Patient Education: Patient [...] in pain. 11/10/2016 Appointment: Leydi Hightower WPtel: [facility] [place] [phone] (30 min) Complex 11/10/2016 Patient Education: Patient [...] of plan. 10/14/2016 Appointment: Leydi Hightower WPtel: [phone] (30 min) Complex 10/14/2016 Patient Education: [...] will try 09/16/2016 Appointment: Leydi Hightower WPtel: [phone] [phone] (30 min) Complex 09/16/2016 Patient Education: Patient Medication Summary Completed 09/16/2016 Visit Plan: Left shoulder and elbow pain-xray shoulder and elbow Hoecuzmhjy-jrnkbdjn-xrjzsinggkje-d/c trazodone-start remeron at bedtime Pt has been [...] Obesity Completed 06/17/2016 Appointment: Leydi Hightower WPtel: [phone] (30 min) Complex 06/09/2016 [...] of control. 05/12/2016 Appointment: Leydi Hightower WPtel: [address] [place], [place] [phone] (30 min) Complex 05/12/2016 Patient Education: Patient [...] office. 05/28/2015 Appointment: Leydi Hightower WPtel: [address] [place], [place] [phone] (30 min) Complex 05/28/2015 Patient Education: Patient [...] Care Plan: COMPLETE CBC AUTOMATED LOINC : 11491-3 Ordered 04/23/2015 Instructions Comment . Chronic Pain [...] and elbow pain-xray shou lder and elbow Inwnqncglf-pbywztel-hfzfftbwgmil-d/c trazodone-start remeron at bedtime Pt has been [...]
== END 2020-03-16 21:51 | disposition home or self-care (01) ==
LOC: EDUNIT# 21:00 → ER 21:01
DX: S60.352A Superficial foreign body of left thumb, initial encounter (principal); F41.9 Anxiety disorder, unspecified; F32.9 Major depressive disorder, single episode, unspecified; E03.9 Hypothyroidism, unspecified; Z23 Encounter for immunization; Z88.0 Allergy status to penicillin; Z80.0 Family history of malignant neoplasm of digestive organs; Z82.49 Family history of ischemic heart disease and other diseases of the circulatory system; W45.8XXA Other foreign body or object entering through skin, initial encounter
CPT/HCPCS: 90715; 99284

== ENCOUNTER → 2020-06-03 | Outpatient (CLI) | payer MEDICARE ==
[~2020-06-03] MED LIST changes: +MUPI22OI2 TP; +SULF1TAB35 PO
--- NOTE | 2020-06-03 12:12 | Diagnostic Imaging Report ---
CLINICAL INDICATION: Patient with hypothyroidism. COMPARISONS: Ultrasound of the thyroid gland dated 01/14/2019. Nuclear medicine I-123 thyroid uptake scan dated 03/06/2019. FINDINGS: THYROID NODULES: None. There is no gross nodule involving the upper left thyroid lobe region. THYROID GLAND: There is diffuse heterogeneity involving the thyroid gland again noted. The right lobe measures 5.0 cm x 1.7 cm x 1.9 cm and the left lobe measures 5.3 cm x 1.3 cm x 1.6 cm in their three dimensions. ISTHMUS: The isthmus is unremarkable and measures 2 mm in thickness. IMPRESSION: Again seen diffuse heterogeneity of the thyroid gland. There is no thyroid nodule seen. There is no gross nodule located in the upper portion of the left thyroid lobe. Dictated by: Dictated on workstation # [id number]
== END ==
LOC: RAD 10:47
PROVIDERS: ATTEND Nurse Practitioner Family
DX: E03.8 Other specified hypothyroidism (principal); E07.89 Other specified disorders of thyroid
CPT/HCPCS: 76536

== ENCOUNTER → 2021-12-13 | Outpatient (CLI) | payer MEDICARE ==
[~2021-12-13] MED LIST changes: +BUPR150T24 PO; -BUPR150T7 PO; -CYAN500T62 PO; +CYAN500T8 PO; +METH-732 PO; -METH750T3 PO; +MIRT-68; -MIRT15TA6; -PANT40TA3; +PANT40TA52; -SULF1TAB35 PO; +SULF1TAB38 PO; +TIZA-186; -TIZA4TAB4
== END ==
LOC: LABNPT 08:14
PROVIDERS: ATTEND Family Medicine
DX: Z20.822 Contact with and (suspected) exposure to COVID-19 (principal)
CPT/HCPCS: 87635

== ENCOUNTER → 2022-05-18 | Outpatient (CLI) | payer MEDICARE ==
--- NOTE | 2022-05-18 14:14 | Diagnostic Imaging Report ---
INDICATION: Right shoulder pain. TIME OF EXAM: 12:03 PM. TECHNIQUE: Three views of the right shoulder were obtained. FINDINGS: The glenohumeral and acromioclavicular alignment is normal. The acromiohumeral space is normal. No fracture or dislocation is identified. IMPRESSION: No acute bony abnormality is detected. Dictated by: Dictated on workstation # [id number]
== END ==
LOC: RAD 11:31
PROVIDERS: ATTEND Nurse Practitioner Family
DX: M25.511 Pain in right shoulder (principal)
CPT/HCPCS: 73030

== ENCOUNTER → 2022-05-26 | Outpatient (CLI) | payer MEDICARE ==
--- NOTE | 2022-05-26 14:15 | Diagnostic Imaging Report ---
MRI RT UPPER EXT JOINT W/O TECHNIQUE: Multiplanar, multisequence MR imaging of the right shoulder was performed without contrast. COMPARISON: None available. INDICATION: Right shoulder pain. FINDINGS: Rotator cuff: Full-thickness tear in the anterior insertional fibers of the supraspinatus has a width measuring 1.2 cm. The proximal stump is retracted less than 1 cm. Infraspinatus is intact. Teres minor is intact. Partial-thickness tear of the deep cranial fibers of the subscapularis. No rotator cuff muscle atrophy. Glenoid labrum: Abnormal linear signal within the superior labrum suggests nondisplaced intrasubstance tear. No paralabral cyst. Long head of biceps: Medial subluxation of the long head of the biceps which is partially positioned within the substance of the subscapularis. The origin of the long head of the biceps remains intact. Bones and cartilage: Humeral head is normal in morphology without fracture or focal osseous lesion. No glenohumeral chondromalacia. 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 Soft tissues: No glenohumeral joint effusion. No MRI findings to suggest adhesive capsulitis. Fluid is present in the subacromial/subdeltoid space, and expected with full-thickness rotator cuff tear. IMPRESSION: 1. Full-thickness tear in the anterior insertion of the supraspinatus has the proximal stump retracted less than a centimeter. 2. Subscapularis has tearing of the deep cranial fibers. 3. There is medial subluxation of the long head of the biceps, which is partially positioned within the substance of the subscapularis. The origin of the long head of the biceps remains intact. 4. There is likely a nondisplaced superior labral tear. Dictated by: Dictated on workstation # [id number]
== END ==
LOC: RAD 09:47
PROVIDERS: ATTEND Nurse Practitioner Family
DX: M75.101 Unspecified rotator cuff tear or rupture of right shoulder, not specified as traumatic (principal); S43.001A Unspecified subluxation of right shoulder joint, initial encounter
CPT/HCPCS: 73221